=== PATIENT | male | born 1955 | race American Indian/Alaskan Native ===

== ENCOUNTER 2017-10-17 09:54 | Inpatient (IN) | payer OTHER ==
[2017-10-17 09:59] VITALS: BMI 22.3
[2017-10-17] MEDS ORDERED: SODIUM CHLORIDE 0.9% 1000 ML INFUS.BAG IV ONE ×4 (10:10→17:16)
--- NOTE | 2017-10-17 10:16 | PDOC ---
Attending Attestation - HPI HPI: 10/17/17 10:24 The patient is a 62 year old male, with a significant past medical history of NIDDM, , who presents to the emergency department with irritation in his throat with cough for about 3 days. The patients daughter reports just visiting the patients PCP where he had a normal workup. The patients daughter reports the patient's cough initially started as intermittent and has since become more constant. He denies any recent chills, headache or dizziness. He denies any recent nausea, vomit, diarrhea or constipation. He denies any recent chest pain or shortness of breath. He denies any recent dysuria, frequency, urgency or hematuria. Allergies: NKA Past surgical history: None reported. Social History: Current Smoker, occasional smoking. Denies EtOH use and recreational drug use. Primary Care Physician: <Marques Bacon - Last Filed: 10/17/17 10:24> - Resident Resident Name: Niko Trimble - ED Attending Attestation I have performed the following: I have examined & evaluated the patient, The case was reviewed & discussed with the resident, I agree w/resident's findings & plan, Exceptions are as noted - Physicial Exam PE: GENERAL: Awake, alert, +tachypnea with abdominal breathing. HEAD: No signs of trauma EYES: PERRLA, EOMI, sclera anicteric, conjunctiva clear ENT: Auricles normal inspection, hearing grossly normal, nares patent, oropharynx clear without exudates. Moist mucosa NECK: Normal ROM, supple, no lymphadenopathy, JVD, or masses LUNGS: Dec air entry B/L. +Transmitted upper airway sounds. HEART: Regular rate and rhythm, normal S1 and S2, no murmurs, rubs or gallops ABDOMEN: Soft, nontender, normoactive bowel sounds. No guarding, no rebound. No masses EXTREMITIES: Normal range of motion, no edema. No clubbing or cyanosis. No cords, erythema, or tenderness NEUROLOGICAL: Cranial nerves II through XII grossly intact. Motor and sensation intact. SKIN: Warm, Dry, normal turgor, no rashes or lesions noted. - Medical Decision Making 10/17/17 10:59 CXR reviewed. Patient with diffuse interstitial infiltrates B/L. Also noted to have fever. Atypical pna and/or CHF. Will treat with broad spectrum abx, admit. <Tali Flores - Last Filed: 10/17/17 11:00>
[2017-10-17 10:30] LABS: BASO % 0.2 % (0-2.0); HEMATOCRIT 28.9 % (35.4-49); HEMOGLOBIN 9.2 GM/dL (11.7-16.9); LYMPH % 11.1 % (8-40); MCH 32.3 pg (25.7-33.7); MCHC 31.8 g/dl (32.0-35.9); MEAN CELL VOLUME 101.6 fl (80-96); MONO % 4.2 % (3.8-10.2); NEUT % 84.5 % (42.8-82.8); PLATELET COUNT 310 K/MM3 (134-434); RBC 2.84 M/mm3 (4.00-5.60); RDW 14.5 % (11.9-15.9); WHITE BLOOD COUNT 11.7 K/mm3 (4.0-10.0)
[2017-10-17] MEDS ORDERED: ACETAMINOPHEN 1000 MG/100 ML VIAL (NON FORMULARY) IVPB ONE (10:40)
[2017-10-17] MEDS ORDERED: ACETAMINOPHEN INJECTION 100 ML IVPB ONE (10:40)
[2017-10-17 10:43] LABS: CARBOXYHEMOGLOBIN 1.2 gm% (0.5-2.0)
[2017-10-17 10:52] LABS: ALBUMIN 2.6 g/dl (3.4-5.0); ANION GAP 10 (8-16); BILIRUBIN,TOTAL 0.4 mg/dL (0.2-1.0); BLOOD UREA NITROGEN 20 mg/dL (7-18); CALCIUM 7.7 mg/dL (8.5-10.1); CHLORIDE 103 mmol/L (98-107); CO2 21 mmol/L (21-32); CREATININE 1.5 mg/dL (0.7-1.3); GLUCOSE,RANDOM 235 mg/dL (74-106); POTASSIUM 4.8 mmol/L (3.5-5.1); SGOT/AST 38 U/L (15-37); SGPT/ALT 13 U/L (12-78); SODIUM 134 mmol/L (136-145); TOT PROT 7.5 g/dl (6.4-8.2)
[2017-10-17 10:54] LABS: ALK PHOS 78 U/L (45-117)
[2017-10-17 11:00] LABS: INR 1.54 (0.82-1.09); PROTHROMBIN TIME (PATIENT) 17.4 SEC (9.98-11.88)
[2017-10-17 11:03] LABS: ACTIVATED PTT 30.7 SECONDS (26.9-34.4)
[2017-10-17] MEDS ORDERED: PIPERACILLIN/TAZOB 4.5 GM/100 ML PRE-DOCKED IVPB ONE (11:05)
[2017-10-17] MEDS ORDERED: VANCOMYCIN 1,000 MG in DEXTROSE 5%-WATER - 250 ML IVPB ONE (11:05)
--- NOTE | 2017-10-17 11:05 | PDOC ---
History of Present Illness - General Chief Complaint: Shortness of Breath Stated Complaint: dyspnea Time Seen by Provider: 10/17/17 10:05 History Source: Patient Exam Limitations: No Limitations - History of Present Illness Initial Comments: 10/17/17 11:04 The patient is a 62M with a PMH of DM and abdominal hernia who presents to the ED via EMS for respiratory distress. The patient is with his family who was providing most of the history. The family states that the patient has not been feeling well for the past week with a cough. Today, the patient was going to the bathroom and his daughter says that he had an unsteady gait, looked pale, and felt very warm. He was also complaining of difficulty breathing so the daughter called EMS. EMS report significant for O2 sat at 55 on their arrival. He was placed on NRB and then satted in the high 90's. The patient is acutely complaining of a cough and SOB but denies any CP. Past History - Past Medical History Allergies/Adverse Reactions: Allergies Allergy/AdvReac Type Severity Reaction Status Date / Time No Known Allergies Allergy Verified 10/17/17 09:56 Home Medications: Ambulatory Orders Glipizide [Glucotrol Xl] 0 mg PO ASDIR 10/17/17 Metformin HCl 0 mg PO ASDIR 10/17/17 Tamsulosin HCl 0.4 mg PO DAILY 10/17/17 COPD: No Diabetes: Yes (NIDDM) GI Disorders: Yes (ulcers) - Immunization History Immunization Up to Date: No - Suicide/Smoking/Psychosocial Hx Smoking History: Never smoked Number of Cigarettes Smoked Daily: 2 Information on smoking cessation initiated: No 'Breaking Loose' booklet given: 04/22/15 Hx Alcohol Use: No Substance Use Type: None Review of Systems - Review of Systems Able to Perform ROS?: Yes Comments:: 10/17/17 11:10 GENERAL/CONSTITUTIONAL: Positive for fever and weakness. No chills. HEAD, EYES, EARS, NOSE AND THROAT: No change in vision. No ear pain or discharge. No sore throat. GASTROINTESTINAL: No nausea, vomiting, diarrhea, constipation, or abdominal pain. GENITOURINARY: No dysuria, frequency, hematuria, or change in urination. CARDIOVASCULAR: No chest pain, palpitations, or lightheadedness. RESPIRATORY: Positive for difficulty breathing and cough. No wheezing or hemoptysis. MUSCULOSKELETAL: No joint or muscle swelling or pain. No neck or back pain. SKIN: No rash or lesions. NEUROLOGIC: No headache, numbness, tingling, weakness, loss of consciousness, or change in strength/sensation. ENDOCRINE: No increased thirst. No abnormal weight change. HEMATOLOGIC/LYMPHATIC: No anemia, easy bleeding, or history of blood clots. ALLERGIC/IMMUNOLOGIC: No hives or skin allergy. Is the patient limited Georgian proficient: No *Physical Exam - Vital Signs Last Vital Signs Temp Pulse Resp BP Pulse Ox 101 F H 94 H 21 105/58 97 10/17/17 10:31 10/17/17 10:36 10/17/17 10:33 10/17/17 10:33 10/17/17 10:36 - Physical Exam Comments: 10/23/17 06:46 GENERAL: Well developed, well nourished. Awake and alert. No acute distress. HEENT: Normocephalic, atraumatic. Hearing grossly normal. Moist mucous membranes. NECK: Supple. Full ROM. No JVD. CARDIOVASCULAR: Regular rate and rhythm. No murmurs, rubs, or gallops. PULMONARY: Coarse breath sounds bilaterally, evidence of respiratory distress. ABDOMINAL: Soft. Non-tender. Non-distended. No rebound or guarding. No organomegaly. Normoactive bowel sounds. GENITOURINARY: No CVA tenderness bilaterally. MUSCULOSKELETAL: Normal range of motion at all joints. No bony deformities or tenderness. EXTREMITIES: No cyanosis. No clubbing. No edema. No calf tenderness. SKIN: Warm and dry. Normal capillary refill. No rashes. No jaundice. NEUROLOGICAL: Alert, awake, appropriate. Cranial nerves 2-12 intact. Normal speech. Gait is normal without ataxia. PSYCHIATRIC: Cooperative. Good eye contact. Appropriate mood and affect. Procedures - Central Line Central Line Lumen: triple Central Line Position: femoral (R) Anesthesia: 1% Lidocaine Amount of anesthesia (ccs): 3 Complications: none Post Central Line Insertion: sutured, good blood return Progress: 10/17/17 12:52 Emergent central line placement. ED Treatment Course - LABORATORY CBC & Chemistry Diagram: 10/22/17 05:05 10/21/17 05:50 - ADDITIONAL ORDERS Additional order review: Laboratory Results 10/17/17 10/17/17 10:15 10:11 Carboxyhemoglobin 1.2 Methemoglobin 0.6 Sodium 134 L Potassium 4.8 Chloride 103 Carbon Dioxide 21 Anion Gap 10 BUN 20 H Creatinine 1.5 H Creat Clearance w eGFR 47.27 Random Glucose 235 H Calcium 7.7 L Total Bilirubin 0.4 AST 38 H ALT 13 Alkaline Phosphatase 78 Creatine Kinase 152 Troponin I < 0.02 Total Protein 7.5 Albumin 2.6 L 10/17/17 10:15 RBC 2.84 L MCV 101.6 H MCHC 31.8 L RDW 14.5 MPV 9.0 Neutrophils % 84.5 H Lymphocytes % 11.1 Monocytes % 4.2 Eosinophils % 0.0 Basophils % 0.2 - RADIOLOGY Radiology Studies Ordered: Category Date Time Status CHEST X-RAY PORTABLE* [RAD] Stat Radiology 10/17/17 10:10 Completed - Medications Given in the ED: ED Medications Discontinued Medications Generic Name Dose Route Start Last Admin Trade Name Freq PRN Reason Stop Dose Admin Acetaminophen 1,000 mg 10/17/17 10:40 10/17/17 10:42 Ofirmev Injection - IVPB 10/17/17 10:41 1,000 mg ONCE ONE Administration Sodium Chloride 1,000 ml 10/17/17 10:10 10/17/17 10:37 Normal Saline - IV 10/17/17 10:11 1,000 ml ONCE ONE Administration Medical Decision Making - Medical Decision Making 10/17/17 12:49 The patient is a 62M with a PMH of DM who presents to the ED in respiratory distress. Incoming vitals notable for hypoxia in the low 70's, improved to mid 90's on NRB. He began to desat and put on high flow NC. He failed high flow NC and is requiring bipap. CXR showing congestive changes with questionable PNA. 2L fluids ordered, vanc/zosyn for broad spectrum coverage. Central line placed in R femoral vein. 10/17/17 14:20 Dr. Lara has accepted ICU consultation. Dr. Ramirez accepts admission to ICU bed. 10/17/17 14:21 Patient is stable on Bipap. 81/55 map 65. One more liter given in 500 cc bolus. 10/17/17 17:17 Patient continues to be hypotensive. Starting levophed. *DC/Admit/Observation/Transfer Diagnosis at time of Disposition: Respiratory distress - Discharge Dispostion Condition at time of disposition: Guarded Admit: Yes - Referrals - Patient Instructions - Post Discharge Activity
[2017-10-17] MEDS ORDERED: VANCOMYCIN 1 GRAM (PRE-DOCKED) 1,000 MG/250 ML BAG IVPB ONE ×2 (11:17→11:45)
[2017-10-17] MEDS ORDERED: PIPERACILLIN/TAZOB 4.5 GM 4.5 GM/100 ML BAG IVPB ONE (11:17)
[2017-10-17] MEDS ORDERED: NOREPINEPHRINE BITARTRATE 8,000 MCG in SODIUM CHLORIDE 0.45% 992 ML IV SCH ×2 (12:45→17:15)
[2017-10-17 13:17] LABS: N-TERMINAL BNP 2540.63 pg/ml (5-125)
[2017-10-17 14:05] LABS: URINE APPEARANCE CLEAR; URINE BILIRUBIN NEGATIVE (NEGATIVE); URINE BLOOD 1+ (NEGATIVE); URINE COLOR YELLOW; URINE GLUCOSE (UA) NEGATIVE (NEGATIVE); URINE KETONE NEGATIVE (NEGATIVE); URINE LEUK ESTERASE NEGATIVE (NEGATIVE); URINE NITRITE NEGATIVE (NEGATIVE); URINE UROBILINOGEN NEGATIVE mg/dL (0.2-1.0)
[2017-10-17 14:13] LABS: URINE PROTEIN 2+ (NEGATIVE)
[2017-10-17 14:17] LABS: EPI CELLS RARE /HPF (FEW); URINE BACTERIA RARE /hpf (NONE SEEN); URINE HYALINE CAST 2 /lpf; URINE MUCUS RARE
[2017-10-17] MEDS ORDERED: SODIUM CHLORIDE 1,000 ML IV SCH (15:00)
--- NOTE | 2017-10-17 15:00 | HP ---
CHIEF COMPLAINT: Shortness of breath PCP: Dr. Jersey Gilliland HISTORY OF PRESENT ILLNESS: INFORMATION OBTAINED BY FAMILY AT BEDSIDE Patient is a 62 year old male with a PMHx of NIDDMII, PUD, BPH who was BIBEMS due respiratory failure with an oxygen saturation of 55% upon EMS arrival. Patient's daughter at bedside reports this morning patient was feeling dizzy and when he went to the bathroom he came back to the living room looking extremely pale and complaining of dizziness with shortness of breath, which prompted them to call 911. Patient had a dry cough since last week but over the weekend he started having a productive cough with brown/yellow phlegm. Patient has never been hospitalized for symptoms of shortness of breath according to his daughter. Patient reports no sick contacts and reports having his flu shot this season. Patient denies any recent hospitalization or antibiotic use. Patient denies any similar symptoms in the past. Otherwise, patient denies nausea, vomiting, chest pain, palpitations, headaches, acute vision changes, diarrhea, constipation, frequency, urgency, dysuria. ER course was notable for: (1) Severe Sepsis with hypotension. Patient given fluids with response. (2) Chest X-ray revealed cardiac congestion (3) IV abx with Zosyn and Vanco given. Patient placed on BIPAP Recent Travel: Denies PAST MEDICAL HISTORY: NIDDMII, PUD, BPH PAST SURGICAL HISTORY: Prostate, Abdominal Mesh Social History: Smokin cigarettes per day but was a heavy smoker in the past for 30+ years Alcohol: Denies Drugs: DENIES Family History: Denies Allergies: No Known Allergies Allergy (Verified 10/17/17 09:56) HOME MEDICATIONS: Home Medications Medication Instructions Recorded Glipizide [Glucotrol Xl] 0 mg PO ASDIR 10/17/17 Metformin HCl 0 mg PO ASDIR 10/17/17 Tamsulosin HCl 0.4 mg PO DAILY 10/17/17 REVIEW OF SYSTEMS CONSTITUTIONAL: generalized weakness, malaise, loss of appetite Absent: fever, chills, diaphoresis, weight change HEENT: Absent: rhinorrhea, nasal congestion, throat pain, throat swelling, difficulty swallowing, mouth swelling, ear pain, eye pain, visual changes CARDIOVASCULAR: Absent: chest pain, syncope, palpitations, irregular heart rate, peripheral edema RESPIRATORY: cough, shortness of breath Absent: dyspnea with exertion, orthopnea, wheezing, stridor, hemoptysis GASTROINTESTINAL: Absent: abdominal pain, abdominal distension, nausea, vomiting, diarrhea, constipation, melena, hematochezia GENITOURINARY: Absent: dysuria, frequency, urgency, hesitancy, hematuria, flank pain, genital pain MUSCULOSKELETAL: Absent: myalgia, arthralgia, joint swelling, back pain, neck pain SKIN: Absent: rash, itching, pallor HEMATOLOGIC/IMMUNOLOGIC: Absent: easy bleeding, easy bruising, lymphadenopathy, frequent infections ENDOCRINE: Absent: unexplained weight gain, unexplained weight loss, heat intolerance, cold intolerance NEUROLOGIC: dizziness, unsteady gait Absent: headache, focal weakness or paresthesias, seizure, mental status changes , bladder or bowel incontinence PSYCHIATRIC: Absent: anxiety, depression, suicidal or homicidal ideation, hallucinations. PHYSICAL EXAMINATION Vital Signs - 24 hr 10/17/17 10/17/17 10/17/17 09:56 10:30 10:31 Temperature 101 F H Pulse Rate 102 H Pulse Rate [ Apical] Respiratory 26 H Rate Blood Pressure 111/68 Blood Pressure [Right Arm] O2 Sat by Pulse 100 99 63 L Oximetry (%) 10/17/17 10/17/17 10/17/17 10:33 10:36 11:52 Temperature 99 F Pulse Rate 94 H Pulse Rate [ 105 H 84 Apical] Respiratory 21 24 Rate Blood Pressure Blood Pressure 105/58 82/54 [Right Arm] O2 Sat by Pulse 100 97 91 L Oximetry (%) 10/17/17 10/17/17 10/17/17 12:02 12:10 12:27 Temperature Pulse Rate Pulse Rate [ 87 75 Apical] Respiratory 31 H 18 Rate Blood Pressure Blood Pressure 73/49 91/66 [Right Arm] O2 Sat by Pulse 86 L 94 L 99 Oximetry (%) 10/17/17 10/17/17 10/17/17 12:55 14:14 14:29 Temperature Pulse Rate Pulse Rate [ 78 73 68 Apical] Respiratory 22 24 24 Rate Blood Pressure Blood Pressure 99/66 88/53 101/59 [Right Arm] O2 Sat by Pulse 98 100 100 Oximetry (%) 10/17/17 14:54 Temperature Pulse Rate Pulse Rate [ 80 Apical] Respiratory 26 H Rate Blood Pressure Blood Pressure 113/71 [Right Arm] O2 Sat by Pulse 98 Oximetry (%) GENERAL: Awake, alert, and fully oriented, in no acute distress. HEAD: Normal with no signs of trauma. EYES: Pupils equal, round and reactive to light, extraocular movements intact, sclera anicteric, conjunctiva clear. No lid lag. EARS, NOSE, THROAT: Oropharynx clear without exudates. Moist mucous membranes. NECK: Normal range of motion, supple without lymphadenopathy, JVD, or masses. LUNGS: On BIPAP. Scattered Rales throughout lower lung bases bilaterral R>L HEART: Regular rate and rhythm, normal S1 and S2 without murmur, rub or gallop. ABDOMEN: Soft, tenderness near the umbilicus due to previous mesh placed ( chronic pain),not distended, normoactive bowel sounds, no guarding, no rebound, no masses. MUSCULOSKELETAL: No CVA tenderness. UPPER EXTREMITIES: Nail clubbing of bilateral toes. 2+ pulses, warm, well- perfused. No cyanosis. No clubbing. No peripheral edema. LOWER EXTREMITIES: 2+ pulses, warm, well-perfused. No calf tenderness. No peripheral edema. NEUROLOGICAL: Cranial nerves II-XII intact. Sensory intact with Motor strength 5/5 bilaterally, no facial droop PSYCHIATRIC: Cooperative. Good eye contact. Appropriate mood and affect. SKIN: Warm, dry, normal turgor, no rashes or lesions noted, normal capillary refill. Laboratory Results - last 24 hr 10/17/17 10/17/17 10/17/17 10:11 10:15 10:15 WBC 11.7 H RBC 2.84 L Hgb 9.2 L Hct 28.9 L MCV 101.6 H MCH 32.3 MCHC 31.8 L RDW 14.5 Plt Count 310 MPV 9.0 Neutrophils % 84.5 H Lymphocytes % 11.1 Monocytes % 4.2 Eosinophils % 0.0 Basophils % 0.2 PT with INR 17.40 H INR 1.54 H PTT (Actin FS) 30.7 Carboxyhemoglobin 1.2 Methemoglobin 0.6 Sodium Potassium Chloride Carbon Dioxide Anion Gap BUN Creatinine Creat Clearance w eGFR Random Glucose Lactic Acid Calcium Total Bilirubin AST ALT Alkaline Phosphatase Creatine Kinase Creatine Kinase Index CK-MB (CK-2) Troponin I B-Natriuretic Peptide Total Protein Albumin Urine Color Urine Appearance Urine pH Ur Specific [place] Urine Protein Urine Glucose (UA) Urine Ketones Urine Blood Urine Nitrite Urine Bilirubin Urine Urobilinogen Urine WBC (Auto) Urine RBC (Auto) Ur Epithelial Cells Urine Bacteria Hyaline Casts Urine Mucus Blood Type Antibody Screen 10/17/17 10/17/17 10/17/17 10:15 10:15 12:35 WBC RBC Hgb Hct MCV MCH MCHC RDW Plt Count MPV Neutrophils % Lymphocytes % Monocytes % Eosinophils % Basophils % PT with INR INR PTT (Actin FS) Carboxyhemoglobin Methemoglobin Sodium 134 L Potassium 4.8 Chloride 103 Carbon Dioxide 21 Anion Gap 10 BUN 20 H Creatinine 1.5 H Creat Clearance w eGFR 47.27 Random Glucose 235 H Lactic Acid 3.6 H* 2.3 H* Calcium 7.7 L Total Bilirubin 0.4 AST 38 H ALT 13 Alkaline Phosphatase 78 Creatine Kinase 152 Creatine Kinase Index 0.6 CK-MB (CK-2) < 1.000 Troponin I < 0.02 B-Natriuretic Peptide 2540.63 H Total Protein 7.5 Albumin 2.6 L Urine Color Urine Appearance Urine pH Ur Specific [place] Urine Protein Urine Glucose (UA) Urine Ketones Urine Blood Urine Nitrite Urine Bilirubin Urine Urobilinogen Urine WBC (Auto) Urine RBC (Auto) Ur Epithelial Cells Urine Bacteria Hyaline Casts Urine Mucus Blood Type Antibody Screen 10/17/17 10/17/17 12:55 13:57 WBC RBC Hgb Hct MCV MCH MCHC RDW Plt Count MPV Neutrophils % Lymphocytes % Monocytes % Eosinophils % Basophils % PT with INR INR PTT (Actin FS) Carboxyhemoglobin Methemoglobin Sodium Potassium Chloride Carbon Dioxide Anion Gap BUN Creatinine Creat Clearance w eGFR Random Glucose Lactic Acid Calcium Total Bilirubin AST ALT Alkaline Phosphatase Creatine Kinase Creatine Kinase Index CK-MB (CK-2) Troponin I B-Natriuretic Peptide Total Protein Albumin Urine Color Yellow Urine Appearance Clear Urine pH 5.0 Ur Specific [place] 1.017 Urine Protein 2+ H Urine Glucose (UA) Negative Urine Ketones Negative Urine Blood 1+ H Urine Nitrite Negative Urine Bilirubin Negative Urine Urobilinogen Negative Urine WBC (Auto) 8 Urine RBC (Auto) 7 Ur Epithelial Cells Rare Urine Bacteria Rare Hyaline Casts 2 Urine Mucus Rare Blood Type O POSITIVE Antibody Screen Negative IMAGES CHEST X-RAY (10/17/17): Congestive changes with shallow inspiration. No pnuemothorax or pleural effusion. ASSESSMENT/PLAN: Patient is a 62 year old male who was BIBEMS for shortness of breath and was found to be saturating at 55% upon EMS arrival. Patient found to have severe sepsis and admitted for further monitoring and management. Septic Shock with Acute Hypoxic Respiratory Failure -Likely secondary to Community Acquired Pneumonia, r/o CHF -Tachycardia of 105, Respiratory rate 26, Fever of 101, WBC of 11.7, Hypotension with SBP <90 with no response to IV fluids, and Lactic Acidosis of 3.6 -Central line placed by ED physician, will begin Levophed -BNP >2000. Will begin Levophed and once patient is hemodynamically stable will begin Lasix. CVP reading Q2H -Chest X-ray reveals no consolidation or infiltrate but may be atypical pneumonia -Zosyn and Vancomycin given in ED. Will begin Azithromycin 500mg Daily and Ceftriaxone 1gm daily to cover atypical pneumonia and community acquired pneumonia. Patient denies any recent hospitalization or abx use. -Tylenol 1000mg IVP PRN for fevers -Urine Antigens for legionella, Mycoplasma pneumonia IgM, Sputum cultures -HOB -Blood cultures pending -ECHO pending -BIPAP and 02 to maintain 02% >90% -ABG pending -ICU admission Acute Kidney Injury -Likely secondary to hypoperfusion from sepsis -Urine studies sent -Continue to monitor -Avoid nephrotoxic medications Macrocytic Anemia -Hemoglobin 9.2 with MCV 101 -No prior labs done here as inpatient -Iron studies ordered -Will continue to trend NIDDMII -BGM -ISS -A1C ordered BPH -Patient on Tamsulosin 0.4mg daily Peptic Ulcer Disease -History of mesh according to family and had Endoscopy two months -Was given medications according to patients daughter and completed course Nicotine Dependence -Smokes 2 cigarettes per day F/E/N -No IV fluids due to pulmonary congestion -Electrolytes wnl -NPO Prophylaxis -High risk. Heparin 5000 units sq Q8H -No GI required Disposition -Full code -Patient hypotensive requiring BIPAP. Low threshold for intubation. Will need ICU monitoring Visit type - Emergency Visit Emergency Visit: Yes ED Registration Date: 10/17/17 Care time: The patient presented to the Emergency Department on the above date and was hospitalized for further evaluation of their emergent condition. - New Patient This patient is new to me today: Yes Date on this admission: 10/17/17 - Critical Care Critical Care patient: Yes Total Critical Care Time (in minutes): 45 Critical Care Statement: The care of this patient involved high complexity decision making to prevent further life threatening deterioration of the patient 's condition and/or to evaluate & treat vital organ system(s) failure or risk of failure.
--- NOTE | 2017-10-17 15:18 | CONSULT ---
Consult Consult Specialty:: PULMONARY/CCM Referred by:: Dr. Trimble Reason for Consultation:: respiratory failure - History of Present Illness Chief Complaint: shortness of breath History of Present Illness: 62yo male with h/o DM who presents with worsening shortness of breath and cough. Cough nonproductive without chest pain, wheezing. No nausea, vomitig or diarrhea. No subjective fevers or chills but febrile to 101 on presentation. Reports receiving his flu shot. No sick contacts or recent travel. No recent antibiotics or hospitalizations. Smokes 1 cigarette/day but denies history of asthma or COPD. Does not use inhalers at home. Noted to be hypoxic to 50s by EMS , placed on NRB, attempted high flow oxygen therapy but remained hypoxic, now on BiPAP support with 100% FiO2. - History Source History Provided By: Patient, Medical Record Limitations to Obtaining History: No Limitations - Past Medical History Endocrine: Yes: Diabetes Mellitus - Alcohol/Substance Use Hx Alcohol Use: No - Smoking History Smoking history: Never smoked Aproximately how many cigarettes per day: 2 Home Medications - Allergies Allergies/Adverse Reactions: Allergies Allergy/AdvReac Type Severity Reaction Status Date / Time No Known Allergies Allergy Verified 10/17/17 09:56 - Home Medications Home Medications: Ambulatory Orders Glipizide [Glucotrol Xl] 0 mg PO ASDIR 10/17/17 Metformin HCl 0 mg PO ASDIR 10/17/17 Tamsulosin HCl 0.4 mg PO DAILY 10/17/17 Review of Systems - Review of Systems Constitutional: reports: Weakness. denies: Chills, Fever Eyes: denies: Recent Change in Vision HENT: denies: Nasal Congestion, Throat Pain Neck: denies: Stiffness, Tenderness Cardiovascular: reports: Shortness of Breath. denies: Chest Pain Respiratory: reports: Cough, SOB. denies: Wheezing Gastrointestinal: denies: Abdominal Pain, Nausea, Vomiting Genitourinary: denies: Dysuria, Hematuria Neurological: denies: Dizziness, Headache Endocrine: denies: Unexplained Weight Gain, Unexplained Weight Loss Physical Exam Vital Signs: Vital Signs Temperature 99 F 10/17/17 11:52 Pulse Rate 80 10/17/17 14:54 Respiratory Rate 26 H 10/17/17 14:54 Blood Pressure 113/71 10/17/17 14:54 O2 Sat by Pulse Oximetry (%) 98 10/17/17 14:54 Constitutional: Yes: Mild Distress (on BiPAP) Eyes: Yes: Conjunctiva Clear, EOM Intact HENT: Yes: Atraumatic, Normocephalic Neck: Yes: Supple, Trachea Midline Cardiovascular: Yes: Regular Rate and Rhythm Respiratory: Yes: Rales (scattered) Gastrointestinal: Yes: Normal Bowel Sounds, Soft. No: Tenderness Edema: No Neurological: Yes: Alert, Oriented Labs: CBC, BMP 10/17/17 10:15 10/17/17 10:15 Imaging - Results Chest X-ray: Report Reviewed, Image Reviewed (pulmonary vascular congestion) Problem List - Problems (1) Acute respiratory failure with hypoxia Code(s): J96.01 - ACUTE RESPIRATORY FAILURE WITH HYPOXIA (2) Pneumonia Code(s): J18.9 - PNEUMONIA, UNSPECIFIED ORGANISM (3) Diabetes Code(s): E11.9 - TYPE 2 DIABETES MELLITUS WITHOUT COMPLICATIONS Assessment/Plan Acute Hypoxic Respiratory Failure r/o Pneumonia r/o Influenza Sepsis Acute Kidney Injury Lactic Acidosis r/o CHF DM - antibiotics per ID - f/u cultures - flu swab - urine antigens - O2 to keep SpO2 >90% - BiPAP to assist in work of breathing, hypoxia - echocardiogram - may need diuresis if hemodynamically stable - attempted to taper FiO2, desaturated to low 90s on 60% FiO2, placed on 70% - ICU monitoring for tenuous respiratory status critical care time spent in reviewing chart, evaluating patient and formulating plan 35 min
[2017-10-17] MEDS ORDERED: AZITHROMYCIN IVPB 250 ML IVPB ONE (15:48)
[2017-10-17] MEDS: AZITHROMYCIN IVPB 500 MG in DEXTROSE 5%-WATER - 250 ML IVPB SCH (16:04)
--- NOTE | 2017-10-17 18:29 | PN ---
Teaching Attending Note Name of Resident: Olivia Lucas ATTENDING PHYSICIAN STATEMENT Time of evaluation: 2;30 PM I saw and evaluated the patient. I reviewed the resident's note and discussed the case with the resident. I agree with the resident's findings and plan as documented. SUBJECTIVE: 62 yom with PMHx of NIDDM, PUD, BPH, heavy smoker, was walking to the bathroom when reported dizziness today. Family noted patient was pale and short of breath and called 911. reportedly with EMS, patient had oxygen saturations of 55 %. Over the last week, patient had dry cough that go productive with brown/ yellowish sputum over the last 2 days. Associated with fevers, dyspnea. Patient was febrile upto 101 in the ED and hypotensive upto 70s with lactic acid 3.6. Currently patient is on Bipap, breathing comfortably, weak, breathing improved. C/o chronic abdominal pain in the umbilical region but no other symptoms. No recent orthopnea, PND, leg swelling, weight gain, chest pain or palpitations noted. History partly obtained from family at bedside. OBJECTIVE: Vital Signs Period Temp Pulse Resp BP Sys/Sutton Pulse Ox Last 24 Hr 99 F-101 F 68-105 18- 73-113/47-71 63-100 Intake & Output 10/14/17 10/15/17 10/16/17 10/17/17 23:59 23:59 23:59 23:59 Intake Total 3650 Output Total 525 Balance 3125 Weight 130 lb GENERAL: Awake, alert, and fully oriented, in no acute distress, on BIpap currently, no use of acessory muscles of respiration HEAD: Normal with no signs of trauma. EYES: Pupils equal, round and reactive to light, extraocular movements intact, sclera anicteric, conjunctiva clear. No lid lag. EARS, NOSE, THROAT: Ears normal, nares patent, oropharynx clear without exudates. Moist mucous membranes. NECK: Jugular vein distension but no hepatojugular reflux noted LUNGS: right basilar rales, decreased breath sounds all over, no wheezing appreciated. HEART: S12 regular ABDOMEN: Soft, nontender, not distended, normoactive bowel sounds, no guarding, no rebound, no masses. prior surgical scar MUSCULOSKELETAL: Normal range of motion at all joints. No bony deformities or tenderness. No CVA tenderness. UPPER EXTREMITIES: 2+ pulses, warm, well-perfused. No cyanosis. No clubbing. No peripheral edema. LOWER EXTREMITIES: 2+ pulses, warm, well-perfused. No calf tenderness. No peripheral edema. NEUROLOGICAL: Cranial nerves II-XII grossly intact, limited exam given on bipap and active hemodynamic concerns PSYCHIATRIC: Cooperative. Good eye contact. Appropriate mood and affect. SKIN: Warm, dry, normal turgor, no rashes or lesions noted, normal capillary refill. Home Medication List Medication Instructions Recorded Confirmed Type Glipizide [Glucotrol Xl] 0 mg PO ASDIR 10/17/17 10/17/17 History Metformin HCl 0 mg PO ASDIR 10/17/17 10/17/17 History Tamsulosin HCl 0.4 mg PO DAILY 10/17/17 10/17/17 History Active Medications Generic Name Dose Route Start Last Admin Trade Name Freq PRN Reason Stop Dose Admin Chlorhexidine Gluconate 1 applic 10/17/17 22:00 Hibiclens For Decolonization - TP HS SONAL Heparin Sodium (Porcine) 5,000 unit 10/17/17 22:00 Heparin - SQ TID SONAL Azithromycin 500 mg/ Dextrose 250 mls @ 250 mls/hr 10/17/17 15:30 10/17/17 16 :04 IVPB 250 mls/hr DAILY SONAL Administration CEFTRIAXONE 1 G/50 ML PREMIX 50 mls @ 100 mls/hr 10/18/17 10:00 Ceftriaxone 1 Gm-D5w Bag IVPB DAILY SONAL Norepinephrine Bitartrate 8, 1,000 mls @ 37.5 mls/hr 10/17/17 17:15 000 mcg/ Sodium Chloride IV TITR SONAL Protocol 5 MCG/MIN Insulin Aspart 1 vial 10/17/17 16:30 Novolog Vial Sliding Scale - SQ ACHS [facility] Protocol Mupirocin 1 applic 10/17/17 22:00 Bactroban Ointment (For Decolonization) - NS 10/22/17 21:59 BID [facility] Pneumococcal 13-Valent Conj Vacc 0.5 ml 10/17/17 18:16 Prevnar 13 Syringe - IM 10/17/17 18:17 .ONCE ONE Laboratory Results - last 24 hr 10/17/17 10/17/17 10/17/17 10:11 10:15 10:15 WBC 11.7 H RBC 2.84 L Hgb 9.2 L Hct 28.9 L MCV 101.6 H MCH 32.3 MCHC 31.8 L RDW 14.5 Plt Count 310 MPV 9.0 Neutrophils % 84.5 H Lymphocytes % 11.1 Monocytes % 4.2 Eosinophils % 0.0 Basophils % 0.2 PT with INR 17.40 H INR 1.54 H PTT (Actin FS) 30.7 Carboxyhemoglobin 1.2 Methemoglobin 0.6 Sodium Potassium Chloride Carbon Dioxide Anion Gap BUN Creatinine Creat Clearance w eGFR Random Glucose Lactic Acid Calcium Total Bilirubin AST ALT Alkaline Phosphatase Creatine Kinase Creatine Kinase Index CK-MB (CK-2) Troponin I B-Natriuretic Peptide Total Protein Albumin Urine Color Urine Appearance Urine pH Ur Specific Check Urine Protein Urine Glucose (UA) Urine Ketones Urine Blood Urine Nitrite Urine Bilirubin Urine Urobilinogen Urine WBC (Auto) Urine RBC (Auto) Ur Epithelial Cells Urine Bacteria Hyaline Casts Urine Mucus Ur Random Sodium Ur Random Potassium Ur Random Chloride Blood Type Antibody Screen 10/17/17 10/17/17 10/17/17 10:15 10:15 12:35 WBC RBC Hgb Hct MCV MCH MCHC RDW Plt Count MPV Neutrophils % Lymphocytes % Monocytes % Eosinophils % Basophils % PT with INR INR PTT (Actin FS) Carboxyhemoglobin Methemoglobin Sodium 134 L Potassium 4.8 Chloride 103 Carbon Dioxide 21 Anion Gap 10 BUN 20 H Creatinine 1.5 H Creat Clearance w eGFR 47.27 Random Glucose 235 H Lactic Acid 3.6 H* 2.3 H* Calcium 7.7 L Total Bilirubin 0.4 AST 38 H ALT 13 Alkaline Phosphatase 78 Creatine Kinase 152 Creatine Kinase Index 0.6 CK-MB (CK-2) < 1.000 Troponin I < 0.02 B-Natriuretic Peptide 2540.63 H Total Protein 7.5 Albumin 2.6 L Urine Color Urine Appearance Urine pH Ur Specific Check Urine Protein Urine Glucose (UA) Urine Ketones Urine Blood Urine Nitrite Urine Bilirubin Urine Urobilinogen Urine WBC (Auto) Urine RBC (Auto) Ur Epithelial Cells Urine Bacteria Hyaline Casts Urine Mucus Ur Random Sodium Ur Random Potassium Ur Random Chloride Blood Type Antibody Screen 10/17/17 10/17/17 10/17/17 12:55 13:57 16:00 WBC RBC Hgb Hct MCV MCH MCHC RDW Plt Count MPV Neutrophils % Lymphocytes % Monocytes % Eosinophils % Basophils % PT with INR INR PTT (Actin FS) Carboxyhemoglobin Methemoglobin Sodium Potassium Chloride Carbon Dioxide Anion Gap BUN Creatinine Creat Clearance w eGFR Random Glucose Lactic Acid 2.1 H* Calcium Total Bilirubin AST ALT Alkaline Phosphatase Creatine Kinase Creatine Kinase Index CK-MB (CK-2) Troponin I B-Natriuretic Peptide Total Protein Albumin Urine Color Yellow Urine Appearance Clear Urine pH 5.0 Ur Specific Check 1.017 Urine Protein 2+ H Urine Glucose (UA) Negative Urine Ketones Negative Urine Blood 1+ H Urine Nitrite Negative Urine Bilirubin Negative Urine Urobilinogen Negative Urine WBC (Auto) 8 Urine RBC (Auto) 7 Ur Epithelial Cells Rare Urine Bacteria Rare Hyaline Casts 2 Urine Mucus Rare Ur Random Sodium Ur Random Potassium Ur Random Chloride Blood Type O POSITIVE Antibody Screen Negative 10/17/17 16:40 WBC RBC Hgb Hct MCV MCH MCHC RDW Plt Count MPV Neutrophils % Lymphocytes % Monocytes % Eosinophils % Basophils % PT with INR INR PTT (Actin FS) Carboxyhemoglobin Methemoglobin Sodium Potassium Chloride Carbon Dioxide Anion Gap BUN Creatinine Creat Clearance w eGFR Random Glucose Lactic Acid Calcium Total Bilirubin AST ALT Alkaline Phosphatase Creatine Kinase Creatine Kinase Index CK-MB (CK-2) Troponin I B-Natriuretic Peptide Total Protein Albumin Urine Color Urine Appearance Urine pH Ur Specific Check Urine Protein Urine Glucose (UA) Urine Ketones Urine Blood Urine Nitrite Urine Bilirubin Urine Urobilinogen Urine WBC (Auto) Urine RBC (Auto) Ur Epithelial Cells Urine Bacteria Hyaline Casts Urine Mucus Ur Random Sodium 22 Ur Random Potassium 14.9 Ur Random Chloride 17 Blood Type Antibody Screen Microbiology 10/17/17 13:57 Urine For Antigen Detection Legionella Antigen - Final 10/17/17 13:57 Urine For Antigen Detection Streptococcus pneumoniae Antigen (M - Final 10/17/17 10:25 Nasopharyngeal Swab Influenza Types A,B Antigen ([facility]) - Final 10/17/17 10:25 Nasopharyngeal Swab - Final ASSESSMENT AND PLAN: 62 yom active smoker, pMHx of NIDDM, PUD, BPH admitted with acute hypoxic respiratory failure, Septic shock, suspected CHF. -Acute hypoxic respiratory failure, suspect from ?interstitial infiltrates with CAP associated with CHF vs ARDS -Septic shock -Lactic acidosis, from sepsis vs increased work of breathing -?MIRLANDE from sepsis -NIDDM -PUD -BPH Plan: Volume status difficult to assess. Will place on ceftriaxone/azithromycin. Bipap, close hemodynamic monitoring in ICU Hypotensive in ED, transiently responded to fluids, recurrent hypotension. Would avoid additional hydration given elevated BNP and CXR suggestive of congestive changes. Central line, Start pressors. Trial with diuresis if hemodynamics stabilize Will need CVP measurement if volume status difficult. CXR suggestive of emphysematous changes, though no concerns for COPD exacerbation currently, monitor for now. Repeat troponin. Follow up EKG Check 2D echo, Strict I/Os and daily weights. ISS, diabetic diet when stabilizes Protonix blood/sputum culturs. Urine PNA studies/Flu swab neg. Needs ICU monitoring given need for bipap, pressors and close hemodynamic monitoring. Total critical care time spent 65 min. PLan discussed with patient and family at bedside in detail, all questions answered.
[2017-10-17] MEDS: INSULIN SLIDING SCALE (NOVOLOG) 1 VIAL SQ SCH ×2 (18:35→21:46)
[2017-10-17] MEDS ORDERED: PNEUMOC 13-VAL CONJ-DIP CRM/PF 0.5 ML DISP.SYRIN IM ONE (19:00)
[2017-10-17] MEDS: HEPARIN NA (PORCINE) 5,000 UNITS/ML 1ML VIAL SQ SCH (21:29)
[2017-10-17] MEDS: CHLORHEXIDINE GLUCONATE 4% CLEANSER FOR DECOLONIZATION TP SCH (21:29)
[2017-10-17] MEDS: MUPIROCIN 2% TOPICAL OINTMENT FOR DECOLONIZATION NS SCH (21:29)
[2017-10-18] MEDS: HEPARIN NA (PORCINE) 5,000 UNITS/ML 1ML VIAL SQ SCH ×3 (05:36→22:23)
[2017-10-18] MEDS: INSULIN SLIDING SCALE (NOVOLOG) 1 VIAL SQ SCH ×4 (06:16→22:24)
[2017-10-18 06:44] LABS: BASO % 0.7 % (0-2.0); EOS % 0.1 % (0-4.5); HEMATOCRIT 25.1 % (35.4-49); HEMOGLOBIN 8.4 GM/dL (11.7-16.9); LYMPH % 20.3 % (8-40); MCHC 33.4 g/dl (32.0-35.9); MEAN CELL VOLUME 101.7 fl (80-96); MEAN PLT VOLUME 9.7 fl (7.5-11.1); MONO % 4.6 % (3.8-10.2); NEUT % 74.3 % (42.8-82.8); PLATELET COUNT 266 K/MM3 (134-434); RBC 2.46 M/mm3 (4.00-5.60); RDW 14.2 % (11.9-15.9); WHITE BLOOD COUNT 6.3 K/mm3 (4.0-10.0)
[2017-10-18] MEDS ORDERED: HEMOQUE CONTROL SOLUTION ONE (06:57)
[2017-10-18 07:06] LABS: ALBUMIN 2.4 g/dl (3.4-5.0); ANION GAP 11 (8-16); BILIRUBIN,TOTAL 0.3 mg/dL (0.2-1.0); BLOOD UREA NITROGEN 18 mg/dL (7-18); CALCIUM 7.9 mg/dL (8.5-10.1); CHLORIDE 110 mmol/L (98-107); CO2 21 mmol/L (21-32); CREATININE 1.1 mg/dL (0.7-1.3); GLUCOSE,RANDOM 139 mg/dL (74-106); INR 1.44 (0.82-1.09); MAGNESIUM 1.8 mg/dL (1.8-2.4); POTASSIUM 4.3 mmol/L (3.5-5.1); PROTHROMBIN TIME (PATIENT) 16.3 SEC (9.98-11.88); SGOT/AST 28 U/L (15-37); SGPT/ALT 10 U/L (12-78); SODIUM 142 mmol/L (136-145); TOT PROT 6.5 g/dl (6.4-8.2)
[2017-10-18 07:07] LABS: ALK PHOS 63 U/L (45-117)
[2017-10-18 07:09] LABS: ACTIVATED PTT 29.9 SECONDS (26.9-34.4)
[2017-10-18] MEDS: CEFTRIAXONE 1 G/50 ML PREMIX 50 ML IVPB SCH (09:18)
[2017-10-18] MEDS: AZITHROMYCIN IVPB 500 MG in DEXTROSE 5%-WATER - 250 ML IVPB SCH (09:18)
[2017-10-18] MEDS: MUPIROCIN 2% TOPICAL OINTMENT FOR DECOLONIZATION NS SCH ×2 (09:19→22:24)
--- NOTE | 2017-10-18 09:34 | EKG ---
Test Reason : Blood Pressure : / mmHG Vent. Rate : 099 BPM Atrial Rate : 099 BPM P-R Int : 124 ms QRS Dur : 088 ms QT Int : 326 ms P-R-T Axes : 030 031 016 degrees QTc Int : 418 ms NORMAL SINUS RHYTHM POSSIBLE LEFT ATRIAL ENLARGEMENT BORDERLINE ECG NO PREVIOUS ECGS AVAILABLE Confirmed by MD Fabi, Lei ([id number]) on 10/18/2017 9:34:11 AM Referred By: Confirmed By:Lei Dunlap MD
[2017-10-18] MEDS ORDERED: FUROSEMIDE 40 MG/4 ML INJECTABLE VIAL IVPUSH ONE (09:45)
--- NOTE | 2017-10-18 10:36 | PN ---
Physical Exam: SUBJECTIVE: Patient seen and examined OBJECTIVE: Vital Signs Period Temp Pulse Resp BP Sys/Sutton Pulse Ox Last 24 Hr 99 F-99.9 F 62-92 18-36 73-116/32-71 86-100 GENERAL: The patient is awake, alert, and fully oriented, in no acute distress. HEAD: Normal with no signs of trauma. EYES: PERRL, extraocular movements intact, sclera anicteric, conjunctiva clear. No ptosis. ENT: Ears normal. Bipap mask on. NECK: Trachea midline, full range of motion, supple. LUNGS: Coarse bilateral lower lung field crackles, slight accessory muscle usage , turned down FiO2 from 70% to 60% HEART: + JVD.Regular rate and rhythm, S1, S2 without murmur, rub or gallop. ABDOMEN: Soft, nontender, nondistended, normoactive bowel sounds, no guarding, no rebound, no hepatosplenomegaly, no masses. EXTREMITIES: 2+ pulses, warm, well-perfused, no edema. NEUROLOGICAL: No obvious focal deficit PSYCH: Normal mood, normal affect. SKIN: Warm, dry, normal turgor, no rashes or lesions noted Laboratory Results - last 24 hr 10/17/17 10/17/17 10/17/17 10:11 10:15 10:15 WBC RBC Hgb Hct MCV MCH MCHC RDW Plt Count MPV Neutrophils % Lymphocytes % Monocytes % Eosinophils % Basophils % PT with INR 17.40 H INR 1.54 H PTT (Actin FS) 30.7 Carboxyhemoglobin 1.2 Methemoglobin 0.6 Sodium 134 L Potassium 4.8 Chloride 103 Carbon Dioxide 21 Anion Gap 10 BUN 20 H Creatinine 1.5 H Creat Clearance w eGFR 47.27 POC Glucometer Random Glucose 235 H Hemoglobin A1c % Lactic Acid Calcium 7.7 L Phosphorus Magnesium Ferritin Total Bilirubin 0.4 AST 38 H ALT 13 Alkaline Phosphatase 78 Creatine Kinase 152 Creatine Kinase Index 0.6 CK-MB (CK-2) < 1.000 Troponin I < 0.02 B-Natriuretic Peptide 2540.63 H Total Protein 7.5 Albumin 2.6 L Urine Color Urine Appearance Urine pH Ur Specific [place] Urine Protein Urine Glucose (UA) Urine Ketones Urine Blood Urine Nitrite Urine Bilirubin Urine Urobilinogen Ur Leukocyte Esterase Urine WBC (Auto) Urine RBC (Auto) Ur Epithelial Cells Urine Bacteria Hyaline Casts Urine Mucus Ur Random Sodium Ur Random Potassium Ur Random Chloride Urine Creatinine Blood Type Antibody Screen 10/17/17 10/17/17 10/17/17 10:15 12:35 12:55 WBC RBC Hgb Hct MCV MCH MCHC RDW Plt Count MPV Neutrophils % Lymphocytes % Monocytes % Eosinophils % Basophils % PT with INR INR PTT (Actin FS) Carboxyhemoglobin Methemoglobin Sodium Potassium Chloride Carbon Dioxide Anion Gap BUN Creatinine Creat Clearance w eGFR POC Glucometer Random Glucose Hemoglobin A1c % Lactic Acid 3.6 H* 2.3 H* Calcium Phosphorus Magnesium Ferritin Total Bilirubin AST ALT Alkaline Phosphatase Creatine Kinase Creatine Kinase Index CK-MB (CK-2) Troponin I B-Natriuretic Peptide Total Protein Albumin Urine Color Urine Appearance Urine pH Ur Specific [place] Urine Protein Urine Glucose (UA) Urine Ketones Urine Blood Urine Nitrite Urine Bilirubin Urine Urobilinogen Ur Leukocyte Esterase Urine WBC (Auto) Urine RBC (Auto) Ur Epithelial Cells Urine Bacteria Hyaline Casts Urine Mucus Ur Random Sodium Ur Random Potassium Ur Random Chloride Urine Creatinine Blood Type O POSITIVE Antibody Screen Negative 10/17/17 10/17/17 10/17/17 13:57 16:00 16:40 WBC RBC Hgb Hct MCV MCH MCHC RDW Plt Count MPV Neutrophils % Lymphocytes % Monocytes % Eosinophils % Basophils % PT with INR INR PTT (Actin FS) Carboxyhemoglobin Methemoglobin Sodium Potassium Chloride Carbon Dioxide Anion Gap BUN Creatinine Creat Clearance w eGFR POC Glucometer Random Glucose Hemoglobin A1c % Lactic Acid 2.1 H* Calcium Phosphorus Magnesium Ferritin Total Bilirubin AST ALT Alkaline Phosphatase Creatine Kinase Creatine Kinase Index CK-MB (CK-2) Troponin I B-Natriuretic Peptide Total Protein Albumin Urine Color Yellow Urine Appearance Clear Urine pH 5.0 Ur Specific [place] 1.017 Urine Protein 2+ H Urine Glucose (UA) Negative Urine Ketones Negative Urine Blood 1+ H Urine Nitrite Negative Urine Bilirubin Negative Urine Urobilinogen Negative Ur Leukocyte Esterase Negative Urine WBC (Auto) 8 Urine RBC (Auto) 7 Ur Epithelial Cells Rare Urine Bacteria Rare Hyaline Casts 2 Urine Mucus Rare Ur Random Sodium 22 Ur Random Potassium 14.9 Ur Random Chloride 17 Urine Creatinine Blood Type Antibody Screen 10/17/17 10/17/17 10/17/17 18:45 21:00 21:42 WBC RBC Hgb Hct MCV MCH MCHC RDW Plt Count MPV Neutrophils % Lymphocytes % Monocytes % Eosinophils % Basophils % PT with INR INR PTT (Actin FS) Carboxyhemoglobin Methemoglobin Sodium Potassium Chloride Carbon Dioxide Anion Gap BUN Creatinine Creat Clearance w eGFR POC Glucometer [id number] Random Glucose Hemoglobin A1c % Lactic Acid 1.6 Calcium Phosphorus Magnesium Ferritin Total Bilirubin AST ALT Alkaline Phosphatase Creatine Kinase Creatine Kinase Index CK-MB (CK-2) Troponin I 0.03 D B-Natriuretic Peptide Total Protein Albumin Urine Color Urine Appearance Urine pH Ur Specific [place] Urine Protein Urine Glucose (UA) Urine Ketones Urine Blood Urine Nitrite Urine Bilirubin Urine Urobilinogen Ur Leukocyte Esterase Urine WBC (Auto) Urine RBC (Auto) Ur Epithelial Cells Urine Bacteria Hyaline Casts Urine Mucus Ur Random Sodium Ur Random Potassium Ur Random Chloride Urine Creatinine Blood Type Antibody Screen 10/17/17 10/18/17 10/18/17 21:50 05:20 05:20 WBC 6.3 D RBC 2.46 L Hgb 8.4 L Hct 25.1 L MCV 101.7 H MCH 34.0 H MCHC 33.4 RDW 14.2 Plt Count 266 MPV 9.7 Neutrophils % 74.3 Lymphocytes % 20.3 D Monocytes % 4.6 Eosinophils % 0.1 D Basophils % 0.7 D PT with INR 16.30 H INR 1.44 H PTT (Actin FS) 29.9 Carboxyhemoglobin Methemoglobin Sodium Potassium Chloride Carbon Dioxide Anion Gap BUN Creatinine Creat Clearance w eGFR POC Glucometer Random Glucose Hemoglobin A1c % Lactic Acid Calcium Phosphorus Magnesium Ferritin Total Bilirubin AST ALT Alkaline Phosphatase Creatine Kinase Creatine Kinase Index CK-MB (CK-2) Troponin I B-Natriuretic Peptide Total Protein Albumin Urine Color Urine Appearance Urine pH Ur Specific [place] Urine Protein Urine Glucose (UA) Urine Ketones Urine Blood Urine Nitrite Urine Bilirubin Urine Urobilinogen Ur Leukocyte Esterase Urine WBC (Auto) Urine RBC (Auto) Ur Epithelial Cells Urine Bacteria Hyaline Casts Urine Mucus Ur Random Sodium Ur Random Potassium Ur Random Chloride Urine Creatinine 49.5 Blood Type Antibody Screen 10/18/17 10/18/17 10/18/17 05:20 05:20 05:20 WBC RBC Hgb Hct MCV MCH MCHC RDW Plt Count MPV Neutrophils % Lymphocytes % Monocytes % Eosinophils % Basophils % PT with INR INR PTT (Actin FS) Carboxyhemoglobin Methemoglobin Sodium 142 Potassium 4.3 Chloride 110 H Carbon Dioxide 21 Anion Gap 11 BUN 18 Creatinine 1.1 D Creat Clearance w eGFR > 60 POC Glucometer Random Glucose 139 H D Hemoglobin A1c % 7.4 H Lactic Acid Calcium 7.9 L Phosphorus 3.0 Magnesium 1.8 Ferritin 882.597 H Total Bilirubin 0.3 D AST 28 D ALT 10 L D Alkaline Phosphatase 63 Creatine Kinase Creatine Kinase Index CK-MB (CK-2) Troponin I B-Natriuretic Peptide Total Protein 6.5 Albumin 2.4 L Urine Color Urine Appearance Urine pH Ur Specific [place] Urine Protein Urine Glucose (UA) Urine Ketones Urine Blood Urine Nitrite Urine Bilirubin Urine Urobilinogen Ur Leukocyte Esterase Urine WBC (Auto) Urine RBC (Auto) Ur Epithelial Cells Urine Bacteria Hyaline Casts Urine Mucus Ur Random Sodium Ur Random Potassium Ur Random Chloride Urine Creatinine Blood Type Antibody Screen 10/18/17 05:20 WBC RBC Hgb Hct MCV MCH MCHC RDW Plt Count MPV Neutrophils % Lymphocytes % Monocytes % Eosinophils % Basophils % PT with INR INR PTT (Actin FS) Carboxyhemoglobin Methemoglobin Sodium Potassium Chloride Carbon Dioxide Anion Gap BUN Creatinine Creat Clearance w eGFR POC Glucometer Random Glucose Hemoglobin A1c % Lactic Acid Calcium Phosphorus Magnesium Ferritin Total Bilirubin AST ALT Alkaline Phosphatase Creatine Kinase Creatine Kinase Index CK-MB (CK-2) Troponin I B-Natriuretic Peptide Cancelled Total Protein Albumin Urine Color Urine Appearance Urine pH Ur Specific [place] Urine Protein Urine Glucose (UA) Urine Ketones Urine Blood Urine Nitrite Urine Bilirubin Urine Urobilinogen Ur Leukocyte Esterase Urine WBC (Auto) Urine RBC (Auto) Ur Epithelial Cells Urine Bacteria Hyaline Casts Urine Mucus Ur Random Sodium Ur Random Potassium Ur Random Chloride Urine Creatinine Blood Type Antibody Screen Active Medications Generic Name Dose Route Start Last Admin Trade Name Freq PRN Reason Stop Dose Admin Chlorhexidine Gluconate 1 applic 10/17/17 22:00 10/17/17 21:29 Hibiclens For Decolonization - TP 1 applic HS SONAL Administration Heparin Sodium (Porcine) 5,000 unit 10/17/17 22:00 10/18/17 05:36 Heparin - SQ 5,000 unit TID SONAL Administration Azithromycin 500 mg/ Dextrose 250 mls @ 250 mls/hr 10/17/17 15:30 10/18/17 09 :18 IVPB 250 mls/hr DAILY SONAL Administration CEFTRIAXONE 1 G/50 ML PREMIX 50 mls @ 100 mls/hr 10/18/17 10:00 10/18/17 09: 18 Ceftriaxone 1 Gm-D5w Bag IVPB 100 mls/hr DAILY SONAL Administration Insulin Aspart 1 vial 10/17/17 16:30 10/18/17 06:16 Novolog Vial Sliding Scale - SQ Not Given ACHS [facility] Protocol Mupirocin 1 applic 10/17/17 22:00 10/18/17 09:19 Bactroban Ointment (For Decolonization) - NS 10/22/17 21:59 1 applic BID [facility] Administration ASSESSMENT/PLAN: Patient is a 62 year old male who was BIBEMS for hypoxic respiratory failure placed on Bipap with subsequent presser requirement and need for ICU level care. Neuro: #Nicotine Dependence: - Reassess need for nicotine patch CV: #Septic Shock vs. iatrogenic hypovolemic shock vs. cardiogenic shock: original presentation - Tachycardia of 105, Respiratory rate 26, Fever of 101, WBC of 11.7, Hypotension with SBP <90 with no response to IV fluids, and Lactic Acidosis of 3.6. Source unclear. - Daily CXR for PNA evolution - Possibly due to use of BiPAP increasing intrathoracic pressures and decreasing preload - Will titrate levophed as tolerated - BNP >2K and pressures stable so can give lasix 20 IV Pulm: #Acute Hypoxic Respiratory Failure: Legionalla and strep negative. Zosyn and Vancomycin given in ED. Patient denies any recent hospitalization or abx use. - Chest X-ray reveals bilateral multifocal inflammatory changes (ARDS) vs. congestive heart failure. given JVD and crackles it is likely the later. - Continue Azithromycin 500mg Daily and Ceftriaxone 1gm daily to cover atypical pneumonia and community acquired pneumonia. - Tylenol 1000mg IVP PRN for fevers - Elevated HOB - F/U Blood cultures pending - Lasix 20 IV today - ECHO showing mild mitral regurg, mild/mod tricuspid regurg, mild PHTN - BIPAP and 02 to maintain 02% >90%, claudio ltry on venti mask if respiratory status improves Renal: #Acute Kidney Injury: Resolving -Likely secondary to hypoperfusion from sepsis -CTM -Avoid nephrotoxic medications Heme: #Macrocytic Anemia: Hemoglobin 9.2 with MCV 101 - Ferritin 882 (likely reactive) - Will continue to trend Endo #NIDDM: -BGM -ISS -A1C ordered : #BPH -Patient on Tamsulosin 0.4mg daily GI: #Peptic Ulcer Disease -History of mesh according to family and had Endoscopy two months -Was given medications according to patients daughter and completed course FEN -hold fluids due to pulmonary congestion -Electrolytes wnl -NPO until able to tolerate venti mask PPX: -High risk. Heparin 5000 units sq Q8H -No GI required Disposition -Full code -Patient hypotensive requiring BIPAP still, will try on venti if tolerable Visit type - Emergency Visit Emergency Visit: No - New Patient This patient is new to me today: Yes Date on this admission: 10/18/17 - Critical Care Critical Care patient: Yes Total Critical Care Time (in minutes): 35 Critical Care Statement: The care of this patient involved high complexity decision making to prevent further life threatening deterioration of the patient 's condition and/or to evaluate & treat vital organ system(s) failure or risk of failure.
[2017-10-18 11:43] LABS: N-TERMINAL BNP 4061.68 pg/ml (5-125)
--- NOTE | 2017-10-18 12:29 | PN ---
Teaching Attending Note Name of Resident: Jaxson Echevarria ATTENDING PHYSICIAN STATEMENT I saw and evaluated the patient. I reviewed the resident's note and discussed the case with the resident. I agree with the resident's findings and plan as documented. SUBJECTIVE: Pt seen and examined in the ICU. Remains on BiPAP with 70% FiO2. States breathing is slightly better. Denies chest pain. No further fevers recorded. CXR worse today but was able to taper FiO2 to 50%. OBJECTIVE: Last Vital Signs Temp Pulse Resp BP Pulse Ox 99 F 72 26 H 103/68 98 10/18/17 10:00 10/18/17 12:00 10/18/17 12:00 10/18/17 12:00 10/18/17 12:13 Intake & Output 10/15/17 10/16/17 10/17/17 10/18/17 23:59 23:59 23:59 23:59 Intake Total 3650 Output Total 1225 300 Balance 2425 -300 Weight 58.967 kg 75.342 kg Gen: mildly tachypneic on BiPAP Heart: RRR Lung: basilar rales Abd: soft, nontender Ext: no edema CBC, BMP 10/18/17 05:20 10/18/17 05:20 Active Medications Chlorhexidine Gluconate (Hibiclens For Decolonization -) 1 applic TP HS [facility] Last Admin: 10/17/17 21:29 Dose: 1 applic Heparin Sodium (Porcine) (Heparin -) 5,000 unit SQ TID [facility] Last Admin: 10/18/17 05:36 Dose: 5,000 unit Azithromycin 500 mg/ Dextrose 250 mls @ 250 mls/hr IVPB DAILY [facility] Last Admin: 10/18/17 09:18 Dose: 250 mls/hr CEFTRIAXONE 1 G/50 ML PREMIX (Ceftriaxone 1 Gm-D5w Bag) 50 mls @ 100 mls/hr IVPB DAILY [facility] Last Admin: 10/18/17 09:18 Dose: 100 mls/hr Insulin Aspart (Novolog Vial Sliding Scale -) 1 vial SQ ACHS [facility] PRN Reason: Protocol Last Admin: 10/18/17 11:46 Dose: 2 units Mupirocin (Bactroban Ointment (For Decolonization) -) 1 applic NS BID [facility] Stop: 10/22/17 21:59 Last Admin: 01/03/18 09:19 Dose: 1 applic ASSESSMENT AND PLAN: Acute Hypoxic Respiratory Failure r/o Pneumonia r/o Influenza Sepsis Acute Kidney Injury Lactic Acidosis r/o CHF DM - antibiotics per ID - f/u cultures - titrate FiO2 to keep SpO2 >90% - BiPAP to assist in work of breathing, hypoxia - low dose lasix today - monitor urine output, creatinine - if respiratory status improving, can attempt ventimask - PO as tolerated - continue ICU monitoring for tenuous respiratory status critical care time spent in reviewing chart, evaluating patient and formulating plan 35 min Problem List - Problems (1) Acute respiratory failure with hypoxia Code(s): J96.01 - ACUTE RESPIRATORY FAILURE WITH HYPOXIA (2) Pneumonia Code(s): J18.9 - PNEUMONIA, UNSPECIFIED ORGANISM (3) Diabetes Code(s): E11.9 - TYPE 2 DIABETES MELLITUS WITHOUT COMPLICATIONS
--- NOTE | 2017-10-18 13:40 | PN ---
Teaching Attending Note Name of Resident: Mimi Pizarro ATTENDING PHYSICIAN STATEMENT Time of evaluation: 9:15 AM I saw and evaluated the patient. I reviewed the resident's note and discussed the case with the resident. I agree with the resident's findings and plan as documented. SUBJECTIVE: Patient seen and examined, on BIpap, breathing improved. No complaints otherwise. OBJECTIVE: Vital Signs Period Temp Pulse Resp BP Sys/Sutton Pulse Ox Last 24 Hr 99 F-99.9 F 62-92 18-36 88-116/32-71 89-100 Intake & Output 10/15/17 10/16/17 10/17/17 10/18/17 23:59 23:59 23:59 23:59 Intake Total 3650 Output Total 1225 300 Balance 2425 -300 Weight 130 lb 166 lb 1.6 oz General: lying in bed on bipap, in no acute distress CVs;S1S2 regular Chest: right basilar rales, decreased air entry all over suggestive of underlying emphysema, tenderness over left chest wall area, mild with no swelling or erythema Abdomen: soft, RUQ tenderness, ?positive Root's sign, no voluntary or involuntary guarding or rigidity Extremities: no edema Home Medication List Medication Instructions Recorded Confirmed Type Glipizide [Glucotrol Xl] 0 mg PO ASDIR 10/17/17 10/17/17 History Metformin HCl 0 mg PO ASDIR 10/17/17 10/17/17 History Tamsulosin HCl 0.4 mg PO DAILY 10/17/17 10/17/17 History Active Medications Generic Name Dose Route Start Last Admin Trade Name Freq PRN Reason Stop Dose Admin Chlorhexidine Gluconate 1 applic 10/17/17 22:00 10/17/17 21:29 Hibiclens For Decolonization - TP 1 applic HS SONAL Administration Heparin Sodium (Porcine) 5,000 unit 10/17/17 22:00 10/18/17 05:36 Heparin - SQ 5,000 unit TID SONAL Administration Azithromycin 500 mg/ Dextrose 250 mls @ 250 mls/hr 10/17/17 15:30 10/18/17 09 :18 IVPB 250 mls/hr DAILY SONAL Administration CEFTRIAXONE 1 G/50 ML PREMIX 50 mls @ 100 mls/hr 10/18/17 10:00 10/18/17 09: 18 Ceftriaxone 1 Gm-D5w Bag IVPB 100 mls/hr DAILY SONLA Administration Insulin Aspart 1 vial 10/17/17 16:30 10/18/17 11:46 Novolog Vial Sliding Scale - SQ 2 units ACHS SONAL Administration Protocol Mupirocin 1 applic 10/17/17 22:00 10/18/17 09:19 Bactroban Ointment (For Decolonization) - NS 10/22/17 21:59 1 applic BID SONAL Administration Laboratory Results - last 24 hr 10/17/17 10/17/17 10/17/17 10:15 12:55 13:57 WBC RBC Hgb Hct MCV MCH MCHC RDW Plt Count MPV Neutrophils % Lymphocytes % Monocytes % Eosinophils % Basophils % PT with INR INR PTT (Actin FS) Sodium Potassium Chloride Carbon Dioxide Anion Gap BUN Creatinine Creat Clearance w eGFR POC Glucometer Random Glucose Hemoglobin A1c % Lactic Acid 3.6 H* Calcium Phosphorus Magnesium Ferritin Total Bilirubin AST ALT Alkaline Phosphatase Troponin I B-Natriuretic Peptide Total Protein Albumin Urine Color Yellow Urine Appearance Clear Urine pH 5.0 Ur Specific [place] 1.017 Urine Protein 2+ H Urine Glucose (UA) Negative Urine Ketones Negative Urine Blood 1+ H Urine Nitrite Negative Urine Bilirubin Negative Urine Urobilinogen Negative Ur Leukocyte Esterase Negative Urine WBC (Auto) 8 Urine RBC (Auto) 7 Ur Epithelial Cells Rare Urine Bacteria Rare Hyaline Casts 2 Urine Mucus Rare Ur Random Sodium Ur Random Potassium Ur Random Chloride Urine Creatinine Blood Type O POSITIVE Antibody Screen Negative 10/17/17 10/17/17 10/17/17 16:00 16:40 18:45 WBC RBC Hgb Hct MCV MCH MCHC RDW Plt Count MPV Neutrophils % Lymphocytes % Monocytes % Eosinophils % Basophils % PT with INR INR PTT (Actin FS) Sodium Potassium Chloride Carbon Dioxide Anion Gap BUN Creatinine Creat Clearance w eGFR POC Glucometer Random Glucose Hemoglobin A1c % Lactic Acid 2.1 H* 1.6 Calcium Phosphorus Magnesium Ferritin Total Bilirubin AST ALT Alkaline Phosphatase Troponin I B-Natriuretic Peptide Total Protein Albumin Urine Color Urine Appearance Urine pH Ur Specific [place] Urine Protein Urine Glucose (UA) Urine Ketones Urine Blood Urine Nitrite Urine Bilirubin Urine Urobilinogen Ur Leukocyte Esterase Urine WBC (Auto) Urine RBC (Auto) Ur Epithelial Cells Urine Bacteria Hyaline Casts Urine Mucus Ur Random Sodium 22 Ur Random Potassium 14.9 Ur Random Chloride 17 Urine Creatinine Blood Type Antibody Screen 10/17/17 10/17/17 10/17/17 21:00 21:42 21:50 WBC RBC Hgb Hct MCV MCH MCHC RDW Plt Count MPV Neutrophils % Lymphocytes % Monocytes % Eosinophils % Basophils % PT with INR INR PTT (Actin FS) Sodium Potassium Chloride Carbon Dioxide Anion Gap BUN Creatinine Creat Clearance w eGFR POC Glucometer 144.62018 Random Glucose Hemoglobin A1c % Lactic Acid Calcium Phosphorus Magnesium Ferritin Total Bilirubin AST ALT Alkaline Phosphatase Troponin I 0.03 D B-Natriuretic Peptide Total Protein Albumin Urine Color Urine Appearance Urine pH Ur Specific [place] Urine Protein Urine Glucose (UA) Urine Ketones Urine Blood Urine Nitrite Urine Bilirubin Urine Urobilinogen Ur Leukocyte Esterase Urine WBC (Auto) Urine RBC (Auto) Ur Epithelial Cells Urine Bacteria Hyaline Casts Urine Mucus Ur Random Sodium Ur Random Potassium Ur Random Chloride Urine Creatinine 49.5 Blood Type Antibody Screen 10/18/17 10/18/17 10/18/17 05:20 05:20 05:20 WBC 6.3 D RBC 2.46 L Hgb 8.4 L Hct 25.1 L MCV 101.7 H MCH 34.0 H MCHC 33.4 RDW 14.2 Plt Count 266 MPV 9.7 Neutrophils % 74.3 Lymphocytes % 20.3 D Monocytes % 4.6 Eosinophils % 0.1 D Basophils % 0.7 D PT with INR 16.30 H INR 1.44 H PTT (Actin FS) 29.9 Sodium 142 Potassium 4.3 Chloride 110 H Carbon Dioxide 21 Anion Gap 11 BUN 18 Creatinine 1.1 D Creat Clearance w eGFR > 60 POC Glucometer Random Glucose 139 H D Hemoglobin A1c % Lactic Acid Calcium 7.9 L Phosphorus 3.0 Magnesium 1.8 Ferritin Total Bilirubin 0.3 D AST 28 D ALT 10 L D Alkaline Phosphatase 63 Troponin I B-Natriuretic Peptide 4061.68 H Total Protein 6.5 Albumin 2.4 L Urine Color Urine Appearance Urine pH Ur Specific [place] Urine Protein Urine Glucose (UA) Urine Ketones Urine Blood Urine Nitrite Urine Bilirubin Urine Urobilinogen Ur Leukocyte Esterase Urine WBC (Auto) Urine RBC (Auto) Ur Epithelial Cells Urine Bacteria Hyaline Casts Urine Mucus Ur Random Sodium Ur Random Potassium Ur Random Chloride Urine Creatinine Blood Type Antibody Screen 10/18/17 10/18/17 10/18/17 05:20 05:20 05:20 WBC RBC Hgb Hct MCV MCH MCHC RDW Plt Count MPV Neutrophils % Lymphocytes % Monocytes % Eosinophils % Basophils % PT with INR INR PTT (Actin FS) Sodium Potassium Chloride Carbon Dioxide Anion Gap BUN Creatinine Creat Clearance w eGFR POC Glucometer Random Glucose Hemoglobin A1c % 7.4 H Lactic Acid Calcium Phosphorus Magnesium Ferritin 882.597 H Total Bilirubin AST ALT Alkaline Phosphatase Troponin I B-Natriuretic Peptide Cancelled Total Protein Albumin Urine Color Urine Appearance Urine pH Ur Specific [place] Urine Protein Urine Glucose (UA) Urine Ketones Urine Blood Urine Nitrite Urine Bilirubin Urine Urobilinogen Ur Leukocyte Esterase Urine WBC (Auto) Urine RBC (Auto) Ur Epithelial Cells Urine Bacteria Hyaline Casts Urine Mucus Ur Random Sodium Ur Random Potassium Ur Random Chloride Urine Creatinine Blood Type Antibody Screen Microbiology 10/17/17 10:10 Blood - Peripheral Venous Blood Culture - Preliminary NO GROWTH OBTAINED AFTER 24 HOURS, INCUBATION TO CONTINUE FOR 4 DAYS. 10/17/17 10:10 Blood - Peripheral Venous Blood Culture - Preliminary NO GROWTH OBTAINED AFTER 24 HOURS, INCUBATION TO CONTINUE FOR 4 DAYS. 10/17/17 13:57 Urine For Antigen Detection Legionella Antigen - Final 10/17/17 13:57 Urine For Antigen Detection Streptococcus pneumoniae Antigen (M - Final 10/17/17 10:25 Nasopharyngeal Swab Influenza Types A,B Antigen ([facility]) - Final 10/17/17 10:25 Nasopharyngeal Swab - Final CXr- worsening congestive changes today62 yom active smoker, pMHx of NIDDM, PUD , BPH admitted with acute hypoxic respiratory failure, Septic shock, suspected CHF. 2D echo mildy reduced LV systolic function, EF 51% EKG NSR 99, LAE, no acute ST-T changes Microbiology 10/17/17 10:10 Blood - Peripheral Venous Blood Culture - Preliminary NO GROWTH OBTAINED AFTER 24 HOURS, INCUBATION TO CONTINUE FOR 4 DAYS. 10/17/17 10:10 Blood - Peripheral Venous Blood Culture - Preliminary NO GROWTH OBTAINED AFTER 24 HOURS, INCUBATION TO CONTINUE FOR 4 DAYS. 10/17/17 13:57 Urine For Antigen Detection Legionella Antigen - Final 10/17/17 13:57 Urine For Antigen Detection Streptococcus pneumoniae Antigen (M - Final 10/17/17 10:25 Nasopharyngeal Swab Influenza Types A,B Antigen ([facility]) - Final 10/17/17 10:25 Nasopharyngeal Swab - Final ASSESSMENT AND PLAN: -Acute hypoxic respiratory failure, suspect from ?interstitial infiltrates with CAP associated with CHF vs ARDS -Septic shock -Lactic acidosis, from sepsis vs increased work of breathing -?MIRLANDE from sepsis -NIDDM -PUD -BPH -RUQ pain and left chest wall pain, ?Root's sign Plan: Ceftriaxone/Azithromycin day 2. Follow up blood cultures. Sputum cultures if available. Influenza swab/urine pneumococcal/legionella Ag neg BP improved without fluids or pressors. CXR with worsening congestion today. 2D echo reviewed. Gentle diuresis with lasix cardiology consult wt Dr. Layne. Continue Bipap, Fio2 decreased to 50%, monitor for now. Femoral line placed in ED, removal in 24 hours. CXR suggestive of emphysematous changes, though no concerns for COPD exacerbation currently, monitor for now. ACS ruled out. 2D echo reviewed LFTs WNL, check RUQ ultrasound. ISS, diabetic diet when stabilizes Protonix Needs ICU monitoring given tenuous respiratory status, need for bipap and close hemodynamic monitoring. Total critical care time spent 35 min. PLan discussed with patient and daughter at bedside in detail, all questions answered.
[2017-10-18] MEDS ORDERED: PT OWN MED DRAWER 7, Y5N ONE (14:48)
--- NOTE | 2017-10-18 16:11 | CON.CARD ---
Consult Consult Specialty:: Cardiology Referred by:: kanika Ramirez Reason for Consultation:: CHF - History of Present Illness Chief Complaint: SOB History of Present Illness: 62 year old male with a pmhx of dm and tobacco use who presents with sob and cough. Patient was c/o intermittent cough which became constant along with sob over the last 3 days or so. No pnd, orthopnea, or edema. No chest pain or palpitations. WBC elevated 11s. Cr 1.5 now 1.1 Febrile in ER CXR with congestion with infiltrates BNP 4000 - History Source History Provided By: Patient, Family Member, Medical Record - Past Medical History Endocrine: Yes: Diabetes Mellitus - Alcohol/Substance Use Hx Alcohol Use: No - Smoking History Smoking history: Never smoked Aproximately how many cigarettes per day: 2 Home Medications - Allergies Allergies/Adverse Reactions: Allergies Allergy/AdvReac Type Severity Reaction Status Date / Time No Known Allergies Allergy Verified 10/17/17 09:56 - Home Medications Home Medications: Ambulatory Orders Glipizide [Glucotrol Xl] 0 mg PO ASDIR 10/17/17 Metformin HCl 0 mg PO ASDIR 10/17/17 Tamsulosin HCl 0.4 mg PO DAILY 10/17/17 Vital Signs: Vital Signs Temperature 98.2 F 10/18/17 14:00 Pulse Rate 80 10/18/17 16:00 Respiratory Rate 24 10/18/17 16:00 Blood Pressure 112/56 10/18/17 16:00 O2 Sat by Pulse Oximetry (%) 97 10/18/17 14:30 Constitutional: Yes: Mild Distress Neck: Yes: Supple Respiratory: Yes: On BiPap, Rhonchi Gastrointestinal: Yes: Soft Cardiovascular: Yes: Regular Rate and Rhythm Heart Sounds: Yes: S1, S2 Murmur: No: Systolic Murmur Edema: No - Other Data Labs, Other Data: CBC, BMP 10/18/17 05:20 10/18/17 05:20 INR, PTT INR 1.44 (0.82-1.09) H 10/18/17 05:20 Troponin, BNP 10/17/17 10/18/17 10/18/17 21:00 05:20 05:20 Troponin I 0.03 D B-Natriuretic Peptide 4061.68 H Cancelled Troponin, BNP 10/17/17 10/18/17 10/18/17 21:00 05:20 05:20 Troponin I 0.03 D B-Natriuretic Peptide 4061.68 H Cancelled Imaging - Results Chest X-ray: Report Reviewed EKG: Image Reviewed Assessment/Plan 62 year old male with a pmhx of dm and tobacco use who presents with sob and cough. Patient was c/o intermittent cough which became constant along with sob over the last 3 days or so. No pnd, orthopnea, or edema. No chest pain or palpitations. WBC elevated 11s. Cr 1.5 now 1.1 Febrile in ER CXR with congestion with infiltrates BNP 4000 1) SOB likely multifactorial Being treated with Ceftriaxone/Azithro for pna with improvement in WBC and respiratory status. Afebrile at this time Given mildly decreased lvef with BNP 4000 would agree with gentle IV diuresis as bp allows. 20mg IV furosemide daily and monitor I/O's, daily weights and lytes. Good urine output today after first dose As recovers from infection, will evaluate for other cardiac medications depending on blood pressure/hemodynamics Continue telemetry, CE's negative and no acute ischemic changes on ekg.
--- NOTE | 2017-10-18 21:57 | PN ---
Physical Exam: SUBJECTIVE: Patient seen and examined. Pt on bipap, breathing has improved. Pt c/o being hungry, explained that pt will remain npo while on bipap. Pt denies chest pain, sob, fever, chills. OBJECTIVE: Vital Signs Period Temp Pulse Resp BP Sys/Sutton Pulse Ox Last 24 Hr 98.2 F-99.6 F 62-92 24-30 93-112/32-68 94-100 GENERAL: The patient is awake, alert, and fully oriented, in no acute distress. LUNGS: Bibasilar rales and scattered rhonchi. HEART: Regular rate and rhythm, S1, S2 without murmur, rub or gallop. ABDOMEN: RUQ tender, (+) zavala's sign. Soft, nondistended, normoactive bowel sounds, no guarding. EXTREMITIES: 2+ pulses, warm, well-perfused, no edema. PSYCH: Normal mood, normal affect. SKIN: Warm, dry, normal turgor, no rashes or lesions noted Laboratory Results - last 24 hr 10/17/17 10/17/17 10/17/17 21:00 21:42 21:50 WBC RBC Hgb Hct MCV MCH MCHC RDW Plt Count MPV Neutrophils % Lymphocytes % Monocytes % Eosinophils % Basophils % PT with INR INR PTT (Actin FS) Sodium Potassium Chloride Carbon Dioxide Anion Gap BUN Creatinine Creat Clearance w eGFR POC Glucometer [id number] Random Glucose Hemoglobin A1c % Calcium Phosphorus Magnesium Ferritin Total Bilirubin AST ALT Alkaline Phosphatase Troponin I 0.03 D B-Natriuretic Peptide Total Protein Albumin Urine Creatinine 49.5 10/18/17 10/18/17 10/18/17 05:20 05:20 05:20 WBC 6.3 D RBC 2.46 L Hgb 8.4 L Hct 25.1 L MCV 101.7 H MCH 34.0 H MCHC 33.4 RDW 14.2 Plt Count 266 MPV 9.7 Neutrophils % 74.3 Lymphocytes % 20.3 D Monocytes % 4.6 Eosinophils % 0.1 D Basophils % 0.7 D PT with INR 16.30 H INR 1.44 H PTT (Actin FS) 29.9 Sodium 142 Potassium 4.3 Chloride 110 H Carbon Dioxide 21 Anion Gap 11 BUN 18 Creatinine 1.1 D Creat Clearance w eGFR > 60 POC Glucometer Random Glucose 139 H D Hemoglobin A1c % Calcium 7.9 L Phosphorus 3.0 Magnesium 1.8 Ferritin Total Bilirubin 0.3 D AST 28 D ALT 10 L D Alkaline Phosphatase 63 Troponin I B-Natriuretic Peptide 4061.68 H Total Protein 6.5 Albumin 2.4 L Urine Creatinine 10/18/17 10/18/17 10/18/17 05:20 05:20 05:20 WBC RBC Hgb Hct MCV MCH MCHC RDW Plt Count MPV Neutrophils % Lymphocytes % Monocytes % Eosinophils % Basophils % PT with INR INR PTT (Actin FS) Sodium Potassium Chloride Carbon Dioxide Anion Gap BUN Creatinine Creat Clearance w eGFR POC Glucometer Random Glucose Hemoglobin A1c % 7.4 H Calcium Phosphorus Magnesium Ferritin 882.597 H Total Bilirubin AST ALT Alkaline Phosphatase Troponin I B-Natriuretic Peptide Cancelled Total Protein Albumin Urine Creatinine Active Medications Generic Name Dose Route Start Last Admin Trade Name Freq PRN Reason Stop Dose Admin Chlorhexidine Gluconate 1 applic 10/17/17 22:00 10/17/17 21:29 Hibiclens For Decolonization - TP 1 applic HS SONAL Administration Heparin Sodium (Porcine) 5,000 unit 10/17/17 22:00 10/18/17 13:54 Heparin - SQ 5,000 unit TID SONAL Administration Azithromycin 500 mg/ Dextrose 250 mls @ 250 mls/hr 10/17/17 15:30 10/18/17 09 :18 IVPB 250 mls/hr DAILY SONAL Administration CEFTRIAXONE 1 G/50 ML PREMIX 50 mls @ 100 mls/hr 10/18/17 10:00 10/18/17 09: 18 Ceftriaxone 1 Gm-D5w Bag IVPB 100 mls/hr DAILY SONAL Administration Insulin Aspart 1 vial 10/17/17 16:30 10/18/17 17:11 Novolog Vial Sliding Scale - SQ Not Given ACHS [facility] Protocol Mupirocin 1 applic 10/17/17 22:00 10/18/17 09:19 Bactroban Ointment (For Decolonization) - NS 10/22/17 21:59 1 applic BID SONAL Administration IMAGIN10/18/17 Echo -> Left ventricle normal in size, systolic function mildly reduced. Right ventricle normal in size and function. Mild-moderate mitral valve thickening. Mild TR. Mild pulmonary htn. Mild aortic sclerosis. 10/18/17 CXR -> congestive and infiltrative changes persist ASSESSMENT/PLAN: 62M with PMH of NIDDM, PUD, BPH, presents with respiratory failure, admitted to ICU for severe sepsis 2/2 CAP. # septic shock likely 2/2 CAP - off pressors - Day 2 of IV Azithromycin and IV Ceftriaxone - Influenza A&B (-) - Legionella and strep pneumo (-) - blood cultures (-) x 24 hrs - f/u urine culture - lactic acidosis resolved - bipap to assist in work of breathing - if respiratory status improves -> attempt ventimask - low dose lasix given today # RUQ pain - f/u Ab US - LFTs wnl # MIRLANDE - resolved - avoid nephrotoxic agents - monitor UOP and Cr # macrocytic anemia - monitor # NIDDM - BGMs - Novolog SSI # BPH - continue home med of Flomax # FEN - Fluids: held for now by ICU team - Electrolytes: wnl, continue to monitor - Nutrition: npo # Prophylaxis - DVT ppx with Heparin TID Visit type - Emergency Visit Emergency Visit: Yes ED Registration Date: 10/17/17 Care time: The patient presented to the Emergency Department on the above date and was hospitalized for further evaluation of their emergent condition. - New Patient This patient is new to me today: Yes Date on this admission: 10/18/17 - Critical Care Critical Care patient: Yes Total Critical Care Time (in minutes): 45 Critical Care Statement: The care of this patient involved high complexity decision making to prevent further life threatening deterioration of the patient 's condition and/or to evaluate & treat vital organ system(s) failure or risk of failure.
[2017-10-18] MEDS: CHLORHEXIDINE GLUCONATE 4% CLEANSER FOR DECOLONIZATION TP SCH (22:24)
[2017-10-19] MEDS: HEPARIN NA (PORCINE) 5,000 UNITS/ML 1ML VIAL SQ SCH ×3 (05:55→22:43)
[2017-10-19 06:07] LABS: SERUM IRON SATURATION 9 % (15-55); TOTAL IRON BINDING CAPACITY 158 ug/dL (250-450); TRANSFERRIN 126 mg/dL (200-370); UIBC 143 ug/dL (111-343)
[2017-10-19] MEDS: INSULIN SLIDING SCALE (NOVOLOG) 1 VIAL SQ SCH ×4 (06:09→22:44)
[2017-10-19 06:26] LABS: BASO % 0.5 % (0-2.0); EOS % 0.3 % (0-4.5); HEMATOCRIT 26.8 % (35.4-49); HEMOGLOBIN 8.8 GM/dL (11.7-16.9); LYMPH % 20.5 % (8-40); MCH 33.2 pg (25.7-33.7); MCHC 32.8 g/dl (32.0-35.9); MEAN CELL VOLUME 101.3 fl (80-96); MEAN PLT VOLUME 9.6 fl (7.5-11.1); MONO % 4.2 % (3.8-10.2); NEUT % 74.5 % (42.8-82.8); PLATELET COUNT 292 K/MM3 (134-434); RBC 2.65 M/mm3 (4.00-5.60); RDW 14.5 % (11.9-15.9); WHITE BLOOD COUNT 6.2 K/mm3 (4.0-10.0)
[2017-10-19 06:40] LABS: ALBUMIN 2.4 g/dl (3.4-5.0); ANION GAP 7 (8-16); BLOOD UREA NITROGEN 24 mg/dL (7-18); CALCIUM 8.3 mg/dL (8.5-10.1); CHLORIDE 110 mmol/L (98-107); CO2 27 mmol/L (21-32); GLUCOSE,RANDOM 157 mg/dL (74-106); MAGNESIUM 2.2 mg/dL (1.8-2.4); POTASSIUM 4.1 mmol/L (3.5-5.1); SODIUM 144 mmol/L (136-145)
[2017-10-19 06:44] LABS: ALK PHOS 67 U/L (45-117); BILIRUBIN,TOTAL 0.4 mg/dL (0.2-1.0); PHOSPHOROUS 2.7 mg/dL (2.5-4.9); SGOT/AST 19 U/L (15-37); SGPT/ALT 13 U/L (12-78); TOT PROT 7.1 g/dl (6.4-8.2)
--- NOTE | 2017-10-19 07:18 | PN ---
Progress Note, Physician Chief Complaint: SOB improving urine output 1.8 liters yesterday History of Present Illness: 62 year old male with a pmhx of dm and tobacco use who presents with sob and cough. Patient was c/o intermittent cough which became constant along with sob over the last 3 days or so. No pnd, orthopnea, or edema. No chest pain or palpitations. WBC elevated 11s. Cr 1.5 now 1.1 Febrile in ER CXR with congestion with infiltrates BNP 4000 - Current Medication List Current Medications: Active Medications Chlorhexidine Gluconate (Hibiclens For Decolonization -) 1 applic TP HS [facility] Last Admin: 10/18/17 22:24 Dose: 1 applic Heparin Sodium (Porcine) (Heparin -) 5,000 unit SQ TID [facility] Last Admin: 10/19/17 05:55 Dose: 5,000 unit Azithromycin 500 mg/ Dextrose 250 mls @ 250 mls/hr IVPB DAILY [facility] Last Admin: 10/18/17 09:18 Dose: 250 mls/hr CEFTRIAXONE 1 G/50 ML PREMIX (Ceftriaxone 1 Gm-D5w Bag) 50 mls @ 100 mls/hr IVPB DAILY [facility] Last Admin: 10/18/17 09:18 Dose: 100 mls/hr Insulin Aspart (Novolog Vial Sliding Scale -) 1 vial SQ ACHS [facility] PRN Reason: Protocol Last Admin: 10/19/17 06:09 Dose: Not Given Mupirocin (Bactroban Ointment (For Decolonization) -) 1 applic NS BID [facility] Stop: 10/22/17 21:59 Last Admin: 10/18/17 22:24 Dose: 1 applic - Objective Vital Signs: Vital Signs Temperature 98.2 F 10/19/17 06:00 Pulse Rate 60 10/19/17 06:00 Respiratory Rate 20 10/19/17 06:00 Blood Pressure 82/68 10/19/17 06:00 O2 Sat by Pulse Oximetry (%) 92 L 10/19/17 05:23 Constitutional: Yes: No Distress Neck: Yes: Supple Cardiovascular: Yes: Regular Rate and Rhythm, S1, S2 Respiratory: Yes: Other (minimal bibasilar rales) Gastrointestinal: Yes: Soft Edema: No Labs: CBC, BMP 10/19/17 05:10 10/19/17 05:10 INR, PTT INR 1.44 (0.82-1.09) H 10/18/17 05:20 Assessment/Plan 62 year old male with a pmhx of dm and tobacco use who presents with sob and cough. Patient was c/o intermittent cough which became constant along with sob over the last 3 days or so. No pnd, orthopnea, or edema. No chest pain or palpitations. WBC elevated 11s. Cr 1.5 now 1.1 Febrile in ER CXR with congestion with infiltrates BNP 4000 1) SOB likely multifactorial Being treated with Ceftriaxone/Azithro for pna with improvement in WBC and respiratory status. Afebrile at this time Given mildly decreased lvef with BNP 4000 patient received 20mg IV furosemide with good urine output. Cr 1.0 today. monitor I/O's, daily weights and lytes. As recovers from infection, will evaluate for other cardiac medications depending on blood pressure/hemodynamics Continue telemetry, CE's negative and no acute ischemic changes on ekg. BP this morning on low side but patient is asymptomatic. Does not seem overtly volume overloaded so if bp remains low do not give any diuretic. If bp improves and can tolerate can give low dose 20mg furosemide than.
[2017-10-19] MEDS: AZITHROMYCIN IVPB 500 MG in DEXTROSE 5%-WATER - 250 ML IVPB SCH (09:47)
[2017-10-19] MEDS: MUPIROCIN 2% TOPICAL OINTMENT FOR DECOLONIZATION NS SCH ×2 (09:48→22:43)
[2017-10-19] MEDS ORDERED: FUROSEMIDE 40 MG/4 ML INJECTABLE VIAL IVPUSH ONE (10:34)
--- NOTE | 2017-10-19 11:43 | PN ---
Physical Exam: SUBJECTIVE: Did well overnight but unable to wean BiPap to venti mask last night becaue of desaturation. Looks well this AM OBJECTIVE: Vital Signs Period Temp Pulse Resp BP Sys/Sutton Pulse Ox Last 24 Hr 96.6 F-98.9 F 60-80 18-26 82-112/42-68 92-99 GENERAL: The patient is awake, alert, and fully oriented, in no acute distress. HEAD: Normal with no signs of trauma. EYES: PERRL, extraocular movements intact, sclera anicteric, conjunctiva clear. No ptosis. ENT: Ears normal. Bipap mask on. NECK: Trachea midline, full range of motion, supple. LUNGS: Coarse bilateral lower lung field crackles, slight accessory muscle usage , turned down FiO2 from 70% to 60% HEART: + JVD.Regular rate and rhythm, S1, S2 without murmur, rub or gallop. ABDOMEN: Soft, nontender, nondistended, normoactive bowel sounds, no guarding, no rebound, no hepatosplenomegaly, no masses. EXTREMITIES: 2+ pulses, warm, well-perfused, no edema. NEUROLOGICAL: No obvious focal deficit PSYCH: Normal mood, normal affect. SKIN: Warm, dry, normal turgor, no rashes or lesions noted Laboratory Results - last 24 hr 10/18/17 10/18/17 10/18/17 05:20 05:20 05:33 WBC RBC Hgb Hct MCV MCH MCHC RDW Plt Count MPV Neutrophils % Lymphocytes % Monocytes % Eosinophils % Basophils % Sodium Potassium Chloride Carbon Dioxide Anion Gap BUN Creatinine Creat Clearance w eGFR POC Glucometer [phone] Random Glucose Calcium Phosphorus Magnesium Iron 15 L TIBC 158 L Iron Saturation 9 L Transferrin 126 L Total Bilirubin AST ALT Alkaline Phosphatase B-Natriuretic Peptide 4061.68 H Total Protein Albumin 10/18/17 10/18/17 10/18/17 11:40 16:30 21:45 WBC RBC Hgb Hct MCV MCH MCHC RDW Plt Count MPV Neutrophils % Lymphocytes % Monocytes % Eosinophils % Basophils % Sodium Potassium Chloride Carbon Dioxide Anion Gap BUN Creatinine Creat Clearance w eGFR POC Glucometer 208.05671 155.03034 [phone] Random Glucose Calcium Phosphorus Magnesium Iron TIBC Iron Saturation Transferrin Total Bilirubin AST ALT Alkaline Phosphatase B-Natriuretic Peptide Total Protein Albumin 10/19/17 10/19/17 10/19/17 05:10 05:10 06:05 WBC 6.2 RBC 2.65 L Hgb 8.8 L Hct 26.8 L MCV 101.3 H MCH 33.2 MCHC 32.8 RDW 14.5 Plt Count 292 MPV 9.6 Neutrophils % 74.5 Lymphocytes % 20.5 Monocytes % 4.2 Eosinophils % 0.3 D Basophils % 0.5 Sodium 144 Potassium 4.1 Chloride 110 H Carbon Dioxide 27 D Anion Gap 7 L BUN 24 H D Creatinine 1.0 Creat Clearance w eGFR > 60 POC Glucometer [phone] Random Glucose 157 H Calcium 8.3 L Phosphorus 2.7 Magnesium 2.2 D Iron TIBC Iron Saturation Transferrin Total Bilirubin 0.4 D AST 19 D ALT 13 D Alkaline Phosphatase 67 B-Natriuretic Peptide Total Protein 7.1 Albumin 2.4 L Vital Signs Temp 98.4 F 10/19/17 10:00 Pulse 71 10/19/17 10:00 Resp 20 10/19/17 10:00 BP 108/53 10/19/17 10:00 Pulse Ox 97 10/19/17 11:47 Intake & Output 10/18/17 10/19/17 10/19/17 23:59 11:59 23:59 Intake Total 300 Output Total 1500 Balance -1200 Weight 75.342 kg Intake: IVPB 300 Output: Urine 1500 Void 1500 Other: Voiding Method Urinal # Unmeasured Voids Void 1 1 Bowel Movement Yes # Bowel Movements 1 1 Weight Measurement Method Built in [facility] Microbiology 10/17/17 10:10 Blood - Peripheral Venous Blood Culture - Preliminary NO GROWTH OBTAINED AFTER 48 HOURS, INCUBATION TO CONTINUE FOR 3 DAYS. 10/17/17 10:10 Blood - Peripheral Venous Blood Culture - Preliminary NO GROWTH OBTAINED AFTER 48 HOURS, INCUBATION TO CONTINUE FOR 3 DAYS. 10/17/17 13:57 Urine - Urine Clean Catch Urine Culture - Final NO GROWTH OBTAINED 10/17/17 13:57 Urine For Antigen Detection Legionella Antigen - Final 10/17/17 13:57 Urine For Antigen Detection Streptococcus pneumoniae Antigen (M - Final 10/17/17 10:25 Nasopharyngeal Swab Influenza Types A,B Antigen ([facility]) - Final 10/17/17 10:25 Nasopharyngeal Swab - Final Active Medications Generic Name Dose Route Start Last Admin Trade Name Freq PRN Reason Stop Dose Admin Chlorhexidine Gluconate 1 applic 10/17/17 22:00 10/18/17 22:24 Hibiclens For Decolonization - TP 1 applic HS SONAL Administration Heparin Sodium (Porcine) 5,000 unit 10/17/17 22:00 10/19/17 05:55 Heparin - SQ 5,000 unit TID SONAL Administration Azithromycin 500 mg/ Dextrose 250 mls @ 250 mls/hr 10/17/17 15:30 10/19/17 09 :47 IVPB 250 mls/hr DAILY SONAL Administration CEFTRIAXONE 1 G/50 ML PREMIX 50 mls @ 100 mls/hr 10/18/17 10:00 10/18/17 09: 18 Ceftriaxone 1 Gm-D5w Bag IVPB 100 mls/hr DAILY SONAL Administration Insulin Aspart 1 vial 10/17/17 16:30 10/19/17 06:09 Novolog Vial Sliding Scale - SQ Not Given ACHS [facility] Protocol Mupirocin 1 applic 10/17/17 22:00 10/19/17 09:48 Bactroban Ointment (For Decolonization) - NS 10/22/17 21:59 1 applic BID SONAL Administration ASSESSMENT/PLAN: Patient is a 62 year old male who was BIBEMS for hypoxic respiratory failure placed now transitioned from BiPap to HFNC, eating food, and off of pressers. Neuro: #Nicotine Dependence: - Patient would like a nictoine patch so will order low dose 7 MG daily (1-2 cig per day smoker) CV: #Septic Shock vs. iatrogenic hypovolemic shock vs. cardiogenic shock: original presentation - Tachycardia of 105, Respiratory rate 26, Fever of 101, WBC of 11.7, Hypotension with SBP <90 with no response to IV fluids, and Lactic Acidosis of 3.6. Source unclear. - Repeat CXR improved pulmonary edema (out 1.2 L yesterday) - Possibly due to use of BiPAP increasing intrathoracic pressures and decreasing preload, will switch to high flow - off pressors x 2 days - Pressures in 110s systolic so will give lasix 20IV Pulm: #Acute Hypoxic Respiratory Failure: Legionalla and strep negative. Zosyn and Vancomycin given in ED. Patient denies any recent hospitalization or abx use. Original chest X-ray reveals bilateral multifocal inflammatory changes (ARDS) vs. congestive heart failure. given JVD and crackles it is likely the later. Still will treat for CAP - Repeat XR improved s/p lasix - Continue Azithromycin 500mg Daily and Ceftriaxone 1gm QD - Tylenol 1000mg IVP PRN for fevers - Elevated HOB - F/U Blood cultures pending - Lasix 20 IV today - ECHO showing mild mitral regurg, mild/mod tricuspid regurg, mild PHTN - Did well on BIPAP so will try HFNC today for comfort and for PO nutrition. Maintain SAT >90% Renal: #Acute Kidney Injury: Resolved -Likely secondary to hypoperfusion from sepsis -CTM -Avoid nephrotoxic medications Heme: #Macrocytic Anemia: Hemoglobin 9.2 with MCV 101 - Ferritin 882 (likely reactive) - Will continue to trend Endo #NIDDM: -BGM -ISS : #BPH -Patient on Tamsulosin 0.4mg daily GI: #Peptic Ulcer Disease -History of mesh according to family and had Endoscopy two months -Was given medications according to patients daughter and completed course FEN -hold fluids due to pulmonary congestion -Electrolytes wnl -Diabetic diet while on HF NC PPX: -High risk. Heparin 5000 units sq Q8H -No GI required Disposition -Full code -Patient hypotensive requiring noninvasive ventilation, will continue on hfnc and diuretics as tolerated Visit type - Emergency Visit Emergency Visit: No - New Patient This patient is new to me today: No - Critical Care Critical Care patient: Yes Total Critical Care Time (in minutes): 35 Critical Care Statement: The care of this patient involved high complexity decision making to prevent further life threatening deterioration of the patient 's condition and/or to evaluate & treat vital organ system(s) failure or risk of failure. - Discharge Referral Referred to [facility] No
[2017-10-19] MEDS: CEFTRIAXONE 1 G/50 ML PREMIX 50 ML IVPB SCH (12:02)
--- NOTE | 2017-10-19 12:28 | PN ---
Teaching Attending Note Name of Resident: Jaxson Echevarria ATTENDING PHYSICIAN STATEMENT I saw and evaluated the patient. I reviewed the resident's note and discussed the case with the resident. I agree with the resident's findings and plan as documented. SUBJECTIVE: Pt seen and examined in the ICU. Remains on BiPAP with 50% FiO2. Diuresed well with lasix with improving CXR. OBJECTIVE: Last Vital Signs Temp Pulse Resp BP Pulse Ox 98.4 F 71 20 108/53 97 10/19/17 10:00 10/19/17 10:00 10/19/17 10:00 10/19/17 10:00 10/19/17 11:47 Intake & Output 10/16/17 10/17/17 10/18/17 10/19/17 23:59 23:59 23:59 23:59 Intake Total 3650 300 Output Total 1225 1800 Balance 2425 -1500 Weight 58.967 kg 75.342 kg 75.342 kg Gen: mildly tachypneic with movement Heart: RRR Lung: basilar rales improving Abd: soft, nontender Ext: no edema CBC, BMP 10/19/17 05:10 10/19/17 05:10 Active Medications Chlorhexidine Gluconate (Hibiclens For Decolonization -) 1 applic TP HS [facility] Last Admin: 10/18/17 22:24 Dose: 1 applic Heparin Sodium (Porcine) (Heparin -) 5,000 unit SQ TID [facility] Last Admin: 10/19/17 05:55 Dose: 5,000 unit Azithromycin 500 mg/ Dextrose 250 mls @ 250 mls/hr IVPB DAILY [facility] Last Admin: 10/19/17 09:47 Dose: 250 mls/hr CEFTRIAXONE 1 G/50 ML PREMIX (Ceftriaxone 1 Gm-D5w Bag) 50 mls @ 100 mls/hr IVPB DAILY [facility] Last Admin: 10/19/17 12:02 Dose: 100 mls/hr Insulin Aspart (Novolog Vial Sliding Scale -) 1 vial SQ ACHS [facility] PRN Reason: Protocol Last Admin: 10/19/17 12:03 Dose: 2 units Mupirocin (Bactroban Ointment (For Decolonization) -) 1 applic NS BID [facility] Stop: 10/22/17 21:59 Last Admin: 10/19/17 09:48 Dose: 1 applic ASSESSMENT AND PLAN: Acute Hypoxic Respiratory Failure Pneumonia Sepsis Acute Diastolic Heart Failure Acute Kidney Injury Lactic Acidosis r/o CHF DM - antibiotics per ID - titrate FiO2 to keep SpO2 >90% - will place on HFOT - continue low dose lasix today - monitor urine output, creatinine - PO as tolerated - continue ICU monitoring for tenuous respiratory status critical care time spent in reviewing chart, evaluating patient and formulating plan 35 min Problem List - Problems (1) Acute respiratory failure with hypoxia Code(s): J96.01 - ACUTE RESPIRATORY FAILURE WITH HYPOXIA (2) Pneumonia Code(s): J18.9 - PNEUMONIA, UNSPECIFIED ORGANISM (3) Diabetes Code(s): E11.9 - TYPE 2 DIABETES MELLITUS WITHOUT COMPLICATIONS
--- NOTE | 2017-10-19 13:49 | PN ---
Teaching Attending Note Name of Resident: Mimi Pizarro ATTENDING PHYSICIAN STATEMENT Time of evaluation: 9:20 AM I saw and evaluated the patient. I reviewed the resident's note and discussed the case with the resident. I agree with the resident's findings and plan as documented. SUBJECTIVE: Patient seen and examined. breathing improved, Still with coughing, reports chest wall pain and upper abdominal pain from coughing. No dizziness, palpitations, or new complaints otherwise. OBJECTIVE: Vital Signs Period Temp Pulse Resp BP Sys/Sutton Pulse Ox Last 24 Hr 96.6 F-98.9 F 60-80 18-24 82-112/42-68 92-99 Intake & Output 10/16/17 10/17/17 10/18/17 10/19/17 23:59 23:59 23:59 23:59 Intake Total 3650 300 Output Total 1225 1800 Balance 2425 -1500 Weight 130 lb 166 lb 1.6 oz 166 lb 1.6 oz General: lying in bed on Bipap in no acute distress Chest: few right basilar rales, improved exam, chest wall mild tenderness over rib cage area, no swelling or erythema noted Abdomen: right sided abdominal tenderness, superficial, (reports when coughs), no voluntary or involuntary guarding or rigidity Extremities: no edema neck: jugular venous distension Home Medication List Medication Instructions Recorded Confirmed Type Glipizide [Glucotrol Xl] 0 mg PO ASDIR 10/17/17 10/17/17 History Metformin HCl 0 mg PO ASDIR 10/17/17 10/17/17 History Tamsulosin HCl 0.4 mg PO DAILY 10/17/17 10/17/17 History Active Medications Generic Name Dose Route Start Last Admin Trade Name Ivan PRN Reason Stop Dose Admin Chlorhexidine Gluconate 1 applic 10/17/17 22:00 10/18/17 22:24 Hibiclens For Decolonization - TP 1 applic HS [facility]ON[facility] Administration Heparin Sodium (Porcine) 5,000 unit 10/17/17 22:00 10/19/17 05:55 Heparin - SQ 5,000 unit TID [facility]ON[facility] Administration Azithromycin 500 mg/ Dextrose 250 mls @ 250 mls/hr 10/17/17 15:30 10/19/17 09 :47 IVPB 250 mls/hr DAILY [facility] Administration CEFTRIAXONE 1 G/50 ML PREMIX 50 mls @ 100 mls/hr 10/18/17 10:00 10/19/17 12: 02 Ceftriaxone 1 Gm-D5w Bag IVPB 100 mls/hr DAILY [facility] Administration Insulin Aspart 1 vial 10/17/17 16:30 10/19/17 12:03 Novolog Vial Sliding Scale - SQ 2 units ACHS [facility]ON[facility] Administration Protocol Mupirocin 1 applic 10/17/17 22:00 10/19/17 09:48 Bactroban Ointment (For Decolonization) - NS 10/22/17 21:59 1 applic BID SONAL Administration Nicotine 7 mg 10/19/17 12:45 Nicoderm Patch - TD DAILY [facility] Laboratory Results - last 24 hr 10/18/17 10/18/17 10/18/17 05:20 05:33 11:40 WBC RBC Hgb Hct MCV MCH MCHC RDW Plt Count MPV Neutrophils % Lymphocytes % Monocytes % Eosinophils % Basophils % Sodium Potassium Chloride Carbon Dioxide Anion Gap BUN Creatinine Creat Clearance w eGFR POC Glucometer 182.71491 208.36452 Random Glucose Calcium Phosphorus Magnesium Iron 15 L TIBC 158 L Iron Saturation 9 L Transferrin 126 L Total Bilirubin AST ALT Alkaline Phosphatase Total Protein Albumin 10/18/17 10/18/17 10/19/17 16:30 21:45 05:10 WBC 6.2 RBC 2.65 L Hgb 8.8 L Hct 26.8 L MCV 101.3 H MCH 33.2 MCHC 32.8 RDW 14.5 Plt Count 292 MPV 9.6 Neutrophils % 74.5 Lymphocytes % 20.5 Monocytes % 4.2 Eosinophils % 0.3 D Basophils % 0.5 Sodium Potassium Chloride Carbon Dioxide Anion Gap BUN Creatinine Creat Clearance w eGFR POC Glucometer 155.81124 189.53146 Random Glucose Calcium Phosphorus Magnesium Iron TIBC Iron Saturation Transferrin Total Bilirubin AST ALT Alkaline Phosphatase Total Protein Albumin 10/19/17 10/19/17 10/19/17 05:10 06:05 11:03 WBC RBC Hgb Hct MCV MCH MCHC RDW Plt Count MPV Neutrophils % Lymphocytes % Monocytes % Eosinophils % Basophils % Sodium 144 Potassium 4.1 Chloride 110 H Carbon Dioxide 27 D Anion Gap 7 L BUN 24 H D Creatinine 1.0 Creat Clearance w eGFR > 60 POC Glucometer 175.87664 229.04920 Random Glucose 157 H Calcium 8.3 L Phosphorus 2.7 Magnesium 2.2 D Iron TIBC Iron Saturation Transferrin Total Bilirubin 0.4 D AST 19 D ALT 13 D Alkaline Phosphatase 67 Total Protein 7.1 Albumin 2.4 L Microbiology 10/17/17 10:10 Blood - Peripheral Venous Blood Culture - Preliminary NO GROWTH OBTAINED AFTER 48 HOURS, INCUBATION TO CONTINUE FOR 3 DAYS. 10/17/17 10:10 Blood - Peripheral Venous Blood Culture - Preliminary NO GROWTH OBTAINED AFTER 48 HOURS, INCUBATION TO CONTINUE FOR 3 DAYS. 10/17/17 13:57 Urine - Urine Clean Catch Urine Culture - Final NO GROWTH OBTAINED 10/17/17 13:57 Urine For Antigen Detection Legionella Antigen - Final 10/17/17 13:57 Urine For Antigen Detection Streptococcus pneumoniae Antigen (M - Final 10/17/17 10:25 Nasopharyngeal Swab Influenza Types A,B Antigen ([facility]) - Final 10/17/17 10:25 Nasopharyngeal Swab - Final 2D echo reviewed ASSESSMENT AND PLAN: 62 yom active smoker, pMHx of NIDDM, PUD, BPH admitted with acute hypoxic respiratory failure, Septic shock, suspected CHF. -Acute hypoxic respiratory failure, suspect from ?interstitial infiltrates with CAP associated with CHF vs ARDS -Acute diastolic heart failure -Severe sepsis, likely from PNA -Lactic acidosis, from sepsis vs increased work of breathing -?MIRLANDE from sepsis -NIDDM -PUD -BPH Plan: Ceftriaxone/Azithromycin day 3. Blood cultures neg. Sputum cultures if available. Influenza swab/urine pneumococcal/legionella Ag neg BP improved without fluids or pressors. Hypotensive this AM, but clinically looks improved, does not look septic. Could from diuresis and positive intrathoracic pressure from Bipap (was noted with improved BP when off Bipap) Significant diuresis with low dose lasix yesterday, CXR better. BP have improved again today, gentle trial with lasix. CXR improved. 2D echo reviewed. Cardiology consult appreciated. Continue Bipap, Fio2 decreased to 50%, monitor for now, wean off as tolerated. Femoral line placed in ED,discuss with ICU for removal. CXR suggestive of emphysematous changes, though no concerns for COPD exacerbation currently, monitor for now. ACS ruled out. LFTs WNL, abdominal ultrasound neg for concerns. Suspect pain superificial from significant coughing. ISS, diabetic diet when stabilizes Protonix Needs ICU monitoring given tenuous respiratory status, need for bipap and close hemodynamic monitoring. Total critical care time spent 35 min. PLan discussed with patient in detail, all questions answered. .
--- NOTE | 2017-10-19 14:08 | PN ---
Physical Exam: SUBJECTIVE: Patient seen and examined. Pt on bipap, breathing has improved. Pt c/o chest wall pain reproducible on exam, likely 2/2 coughing. Pt denies chest pain, sob, fever, chills. OBJECTIVE: Vital Signs Period Temp Pulse Resp BP Sys/Sutton Pulse Ox Last 24 Hr 96.6 F-98.9 F 60-80 18-24 82-112/42-68 92-99 GENERAL: The patient is awake, alert, and fully oriented, in no acute distress. LUNGS: Bibasilar rales improving. CHEST: RUQ and chest wall pain still present on palpation HEART: Regular rate and rhythm, S1, S2 without murmur, rub or gallop. ABDOMEN: Soft, nondistended, normoactive bowel sounds, no guarding. EXTREMITIES: Warm, well-perfused, no edema. PSYCH: Normal mood, normal affect. SKIN: Warm, dry, normal turgor, no rashes or lesions noted Laboratory Results - last 24 hr 10/18/17 10/18/17 10/18/17 05:20 05:33 11:40 WBC RBC Hgb Hct MCV MCH MCHC RDW Plt Count MPV Neutrophils % Lymphocytes % Monocytes % Eosinophils % Basophils % Sodium Potassium Chloride Carbon Dioxide Anion Gap BUN Creatinine Creat Clearance w eGFR POC Glucometer 182.04983 208.76883 Random Glucose Calcium Phosphorus Magnesium Iron 15 L TIBC 158 L Iron Saturation 9 L Transferrin 126 L Total Bilirubin AST ALT Alkaline Phosphatase Total Protein Albumin 10/18/17 10/18/17 10/19/17 16:30 21:45 05:10 WBC 6.2 RBC 2.65 L Hgb 8.8 L Hct 26.8 L MCV 101.3 H MCH 33.2 MCHC 32.8 RDW 14.5 Plt Count 292 MPV 9.6 Neutrophils % 74.5 Lymphocytes % 20.5 Monocytes % 4.2 Eosinophils % 0.3 D Basophils % 0.5 Sodium Potassium Chloride Carbon Dioxide Anion Gap BUN Creatinine Creat Clearance w eGFR POC Glucometer 155.25141 189.07585 Random Glucose Calcium Phosphorus Magnesium Iron TIBC Iron Saturation Transferrin Total Bilirubin AST ALT Alkaline Phosphatase Total Protein Albumin 10/19/17 10/19/17 10/19/17 05:10 06:05 11:03 WBC RBC Hgb Hct MCV MCH MCHC RDW Plt Count MPV Neutrophils % Lymphocytes % Monocytes % Eosinophils % Basophils % Sodium 144 Potassium 4.1 Chloride 110 H Carbon Dioxide 27 D Anion Gap 7 L BUN 24 H D Creatinine 1.0 Creat Clearance w eGFR > 60 POC Glucometer 175.54263 229.32255 Random Glucose 157 H Calcium 8.3 L Phosphorus 2.7 Magnesium 2.2 D Iron TIBC Iron Saturation Transferrin Total Bilirubin 0.4 D AST 19 D ALT 13 D Alkaline Phosphatase 67 Total Protein 7.1 Albumin 2.4 L Active Medications Generic Name Dose Route Start Last Admin Trade Name Ivan PRN Reason Stop Dose Admin Chlorhexidine Gluconate 1 applic 10/17/17 22:00 10/18/17 22:24 Hibiclens For Decolonization - TP 1 applic HS [facility] Administration Heparin Sodium (Porcine) 5,000 unit 10/17/17 22:00 10/19/17 05:55 Heparin - SQ 5,000 unit TID [facility]ONAL Administration Azithromycin 500 mg/ Dextrose 250 mls @ 250 mls/hr 10/17/17 15:30 10/19/17 09 :47 IVPB 250 mls/hr DAILY [facility] Administration CEFTRIAXONE 1 G/50 ML PREMIX 50 mls @ 100 mls/hr 10/18/17 10:00 10/19/17 12: 02 Ceftriaxone 1 Gm-D5w Bag IVPB 100 mls/hr DAILY [facility] Administration Insulin Aspart 1 vial 10/17/17 16:30 10/19/17 12:03 Novolog Vial Sliding Scale - SQ 2 units ACHS [facility] Administration Protocol Mupirocin 1 applic 10/17/17 22:00 10/19/17 09:48 Bactroban Ointment (For Decolonization) - NS 10/22/17 21:59 1 applic BID SONAL Administration Nicotine 7 mg 10/19/17 12:45 Nicoderm Patch - TD DAILY [facility]ON[facility] IMAGIN10/18/17 Ab US -> no US evidence of acute cholecystitis. 10/19/17 CXR -> diffuse airspace changes have diminished slightly. Findings suggestive of possible ARDS. ASSESSMENT/PLAN: 62M with PMH of NIDDM, PUD, BPH, presents with respiratory failure, admitted to ICU for severe sepsis 2/2 CAP. # septic shock likely 2/2 CAP - off pressors - Day 3 of IV Azithromycin and IV Ceftriaxone - blood cultures (-) x 48 hrs - urine culture (-) - bipap to assist in work of breathing -> will place on high flow oxygen therapy - low dose lasix given today - Cardiology (Dr. Dunlap) recs appreciated: BP is low but pt is asymptomatic. If BP improves and can tolerate low dose lasix can be given. BP improved without fluids or pressors. # RUQ pain - likely musculoskeletal pain 2/2 coughing - Ab US results as above # MIRLANDE - resolved - avoid nephrotoxic agents - monitor UOP and Cr # macrocytic anemia - stable - continue to monitor # NIDDM - BGMs - Novolog SSI # BPH - continue home med of Flomax # FEN - Fluids: held for now by ICU team - Electrolytes: wnl, continue to monitor - Nutrition: diabetic diet # Prophylaxis - DVT ppx with Heparin TID Visit type - Emergency Visit Emergency Visit: Yes ED Registration Date: 10/17/17 Care time: The patient presented to the Emergency Department on the above date and was hospitalized for further evaluation of their emergent condition. - New Patient This patient is new to me today: No - Critical Care Critical Care patient: Yes Total Critical Care Time (in minutes): 40 Critical Care Statement: The care of this patient involved high complexity decision making to prevent further life threatening deterioration of the patient 's condition and/or to evaluate & treat vital organ system(s) failure or risk of failure.
[2017-10-19] MEDS: NICOTINE 7 MG/24 HOURS TOPICAL PATCH TD SCH (16:35)
[2017-10-19] MEDS: ACETAMINOPHEN 325 MG TABLET (FP) PO PRN (22:00)
[2017-10-19] MEDS: CHLORHEXIDINE GLUCONATE 4% CLEANSER FOR DECOLONIZATION TP SCH (22:43)
[2017-10-20] MEDS: HEPARIN NA (PORCINE) 5,000 UNITS/ML 1ML VIAL SQ SCH (05:03)
[2017-10-20] MEDS: INSULIN SLIDING SCALE (NOVOLOG) 1 VIAL SQ SCH ×4 (06:17→21:22)
[2017-10-20 07:01] LABS: HEMATOCRIT 27.1 % (35.4-49); HEMOGLOBIN 9.1 GM/dL (11.7-16.9); MCH 34.1 pg (25.7-33.7); MCHC 33.7 g/dl (32.0-35.9); MEAN CELL VOLUME 101.2 fl (80-96); MEAN PLT VOLUME 9.4 fl (7.5-11.1); PLATELET COUNT 149 K/MM3 (134-434); RBC 2.67 M/mm3 (4.00-5.60); RDW 14.6 % (11.9-15.9); WHITE BLOOD COUNT 8.2 K/mm3 (4.0-10.0)
[2017-10-20 07:03] LABS: ALBUMIN 2.9 g/dl (3.4-5.0); BLOOD UREA NITROGEN 39 mg/dL (7-18); CALCIUM 8.7 mg/dL (8.5-10.1); CHLORIDE 103 mmol/L (98-107); GLUCOSE,RANDOM 166 mg/dL (74-106); POTASSIUM 3.9 mmol/L (3.5-5.1); SODIUM 141 mmol/L (136-145)
[2017-10-20 07:08] LABS: ALK PHOS 86 U/L (45-117); ANION GAP 12 (8-16); BILIRUBIN,TOTAL 0.6 mg/dL (0.2-1.0); CO2 26 mmol/L (21-32); CREATININE 1.5 mg/dL (0.7-1.3); MAGNESIUM 2.3 mg/dL (1.8-2.4); PHOSPHOROUS 3.7 mg/dL (2.5-4.9); SGOT/AST 22 U/L (15-37); SGPT/ALT 16 U/L (12-78); TOT PROT 8.7 g/dl (6.4-8.2)
[2017-10-20 07:20] LABS: INR 1.92 (0.82-1.09); PROTHROMBIN TIME (PATIENT) 21.7 SEC (9.98-11.88)
[2017-10-20 07:22] LABS: ACTIVATED PTT 32.9 SECONDS (26.9-34.4)
--- NOTE | 2017-10-20 08:29 | PN ---
Physical Exam: SUBJECTIVE: Patient apparently desat'd on HFNC last night so they replaced the Bipap OBJECTIVE: Vital Signs Period Temp Pulse Resp BP Sys/Sutton Pulse Ox Last 24 Hr 97.9 F-99.2 F 59-84 16-26 98-133/53-96 90-97 GENERAL: The patient is awake, alert, and fully oriented, in no acute distress. HEAD: Normal with no signs of trauma. EYES: PERRL, extraocular movements intact, sclera anicteric, conjunctiva clear. No ptosis. ENT: Ears normal. Bipap mask on. NECK: Trachea midline, full range of motion, supple. LUNGS: Coarse bilateral lower lung field crackles, slight accessory muscle usage , turned down FiO2 from 70% to 60% HEART: + JVD.Regular rate and rhythm, S1, S2 without murmur, rub or gallop. ABDOMEN: Soft, nontender, nondistended, normoactive bowel sounds, no guarding, no rebound, no hepatosplenomegaly, no masses. EXTREMITIES: 2+ pulses, warm, well-perfused, no edema. NEUROLOGICAL: No obvious focal deficit PSYCH: Normal mood, normal affect. SKIN: Warm, dry, normal turgor, no rashes or lesions noted Laboratory Results - last 24 hr 10/18/17 10/18/17 10/18/17 05:33 11:40 16:30 WBC RBC Hgb Hct MCV MCH MCHC RDW Plt Count MPV PT with INR INR PTT (Actin FS) Sodium Potassium Chloride Carbon Dioxide Anion Gap BUN Creatinine Creat Clearance w eGFR POC Glucometer 182.61401 208.58234 [phone] Random Glucose Calcium Phosphorus Magnesium Total Bilirubin AST ALT Alkaline Phosphatase Total Protein Albumin 10/18/17 10/19/17 10/19/17 21:45 06:05 11:03 WBC RBC Hgb Hct MCV MCH MCHC RDW Plt Count MPV PT with INR INR PTT (Actin FS) Sodium Potassium Chloride Carbon Dioxide Anion Gap BUN Creatinine Creat Clearance w eGFR POC Glucometer 189.02989 175.29766 [phone] Random Glucose Calcium Phosphorus Magnesium Total Bilirubin AST ALT Alkaline Phosphatase Total Protein Albumin 10/19/17 10/19/17 10/20/17 17:34 22:41 05:54 WBC RBC Hgb Hct MCV MCH MCHC RDW Plt Count MPV PT with INR INR PTT (Actin FS) Sodium Potassium Chloride Carbon Dioxide Anion Gap BUN Creatinine Creat Clearance w eGFR POC Glucometer 206.85555 193.77187 [phone] Random Glucose Calcium Phosphorus Magnesium Total Bilirubin AST ALT Alkaline Phosphatase Total Protein Albumin 10/20/17 10/20/17 10/20/17 06:10 06:10 06:10 WBC 8.2 D RBC 2.67 L Hgb 9.1 L Hct 27.1 L MCV 101.2 H MCH 34.1 H MCHC 33.7 RDW 14.6 Plt Count 149 D MPV 9.4 PT with INR 21.70 H INR 1.92 H D PTT (Actin FS) 32.9 Sodium 141 Potassium 3.9 Chloride 103 Carbon Dioxide 26 Anion Gap 12 BUN 39 H D Creatinine 1.5 H D Creat Clearance w eGFR 47.27 POC Glucometer Random Glucose 166 H Calcium 8.7 Phosphorus 3.7 D Magnesium 2.3 Total Bilirubin 0.6 D AST 22 ALT 16 D Alkaline Phosphatase 86 D Total Protein 8.7 H D Albumin 2.9 L D Active Medications Generic Name Dose Route Start Last Admin Trade Name Freq PRN Reason Stop Dose Admin Acetaminophen 650 mg 10/19/17 22:58 10/19/17 22:00 Tylenol - PO 650 mg Q6H PRN Administration FEVER OR PAIN Chlorhexidine Gluconate 1 applic 10/17/17 22:00 10/19/17 22:43 Hibiclens For Decolonization - TP 1 applic HS SONAL Administration Heparin Sodium (Porcine) 5,000 unit 10/17/17 22:00 10/20/17 05:03 Heparin - SQ 5,000 unit TID SONAL Administration Azithromycin 500 mg/ Dextrose 250 mls @ 250 mls/hr 10/17/17 15:30 10/19/17 09 :47 IVPB 250 mls/hr DAILY SONAL Administration CEFTRIAXONE 1 G/50 ML PREMIX 50 mls @ 100 mls/hr 10/18/17 10:00 10/19/17 12: 02 Ceftriaxone 1 Gm-D5w Bag IVPB 100 mls/hr DAILY SONAL Administration Insulin Aspart 1 vial 10/17/17 16:30 10/20/17 06:17 Novolog Vial Sliding Scale - SQ Not Given ACHS [facility] Protocol Mupirocin 1 applic 10/17/17 22:00 10/19/17 22:43 Bactroban Ointment (For Decolonization) - NS 10/22/17 21:59 1 applic BID SONAL Administration Nicotine 7 mg 10/19/17 12:45 10/19/17 16:35 Nicoderm Patch - TD 7 mg DAILY SONAL Administration ASSESSMENT/PLAN: Patient is a 62 year old male who was BIBEMS for hypoxic respiratory failure placed now in between BiPap and HFNC, eating food, off of pressers, but with RLE DVT without PE and pending IVC filter placement. Neuro: #Nicotine Dependence: - Nicotine patch 7 MG daily (1-2 cig per day smoker) CV: #Septic Shock vs. iatrogenic hypovolemic shock vs. cardiogenic shock: original presentation - Tachycardia of 105, Respiratory rate 26, Fever of 101, WBC of 11.7, Hypotension with SBP <90 with no response to IV fluids, and Lactic Acidosis of 3.6. Source unclear. - Repeat CXR istable-improved pulmonary edema (out 0.9 L yesterday) - Possibly due to use of BiPAP increasing intrathoracic pressures and decreasing preload, will switch to high flow - off pressors x 2 days - LAsix per below #DVT: U/S positive for Right calf DVT - CTA negative for PE so will place IVC filter - will start heparin drip after IVC filter placement Pulm: #Acute Hypoxic Respiratory Failure: [place] and strep negative. Zosyn and Vancomycin given in ED. Patient denies any recent hospitalization or abx use. Original chest X-ray reveals bilateral multifocal inflammatory changes (ARDS) vs. congestive heart failure. given JVD and crackles it is likely the later. Still will treat for CAP. ECHO showing mild mitral regurg, mild/mod tricuspid regurg, mild PHTN - Repeat XR improved s/p lasix but but concern for ILD or vs. ARDS - CT demonstrating diffuse interstitial lung disease with possible pneumonitis. - Per ID section - Tylenol 1000mg IVP PRN for fevers - Elevated HOB - F/U Blood cultures pending - Holding lasix - Did well on non-rebreather while in CT scanner so that was a rudimentary wean test but patient's pulse ox was reading high 80s while back in his room. Unsure if the pulse ox is completely accurate so will attempt to place an ear pulse ox but will maintain on HFNC for now. Maintain SAT >90% ID: - Consulted ID for abx management - Continue Azithromycin 500mg Daily and Ceftriaxone 1gm QD for CAP until ID input - CXR pattern could be diffuse infection such as PCP - Sent HIV Renal: #Acute Kidney Injury: Was resolved but then re-elevated after lasix x 2 days -Likely iatrogenic lasix - Given IV con for CTA - Hydrate 250 bolus post up from IVC filter placement and continue on 75 mL/hr for an entire liter. - CTM - Avoid nephrotoxic medications Heme: #Macrocytic Anemia: Hemoglobin 9.2 with MCV 101 - Ferritin 882 (likely reactive) - Will continue to trend Endo #NIDDM: -BGM -ISS : #BPH -Patient on Tamsulosin 0.4mg daily GI: #Peptic Ulcer Disease -History of mesh according to family and had Endoscopy two months -Was given medications according to patients daughter and completed course FEN -hold fluids due to pulmonary congestion -Electrolytes wnl -Diabetic diet while on HF NC PPX: -High risk. Heparin 5000 units sq Q8H -No GI required Disposition -Full code -Patient hypotensive requiring noninvasive ventilation, will continue on hfnc , and hep drip for DVT Visit type - Emergency Visit Emergency Visit: No - New Patient This patient is new to me today: No - Critical Care Critical Care patient: Yes Total Critical Care Time (in minutes): 35 Critical Care Statement: The care of this patient involved high complexity decision making to prevent further life threatening deterioration of the patient 's condition and/or to evaluate & treat vital organ system(s) failure or risk of failure. - Discharge Referral Referred to [facility] No
[2017-10-20] MEDS ORDERED: PT OWN MED DRAWER 7, Y5N ONE ×2 (09:11→16:15)
[2017-10-20] MEDS: MUPIROCIN 2% TOPICAL OINTMENT FOR DECOLONIZATION NS SCH ×2 (09:15→21:21)
[2017-10-20] MEDS: NICOTINE 7 MG/24 HOURS TOPICAL PATCH TD SCH (09:16)
[2017-10-20] MEDS: CEFTRIAXONE 1 G/50 ML PREMIX 50 ML IVPB SCH (09:16)
[2017-10-20] MEDS: AZITHROMYCIN IVPB 500 MG in DEXTROSE 5%-WATER - 250 ML IVPB SCH (10:03)
--- NOTE | 2017-10-20 10:24 | EKG ---
Test Reason : Blood Pressure : / mmHG Vent. Rate : 064 BPM Atrial Rate : 064 BPM P-R Int : 128 ms QRS Dur : 084 ms QT Int : 410 ms P-R-T Axes : 048 055 046 degrees QTc Int : 422 ms NORMAL SINUS RHYTHM VOLTAGE CRITERIA FOR LEFT VENTRICULAR HYPERTROPHY ABNORMAL ECG WHEN COMPARED WITH ECG OF 17-OCT-2017 10:04, VENT. RATE HAS DECREASED BY 35 BPM Confirmed by GRZEGORZ CARRION MD ([id number]) on 10/20/2017 10:24:00 AM Referred By: Confirmed By:GRZEGORZ CARRION MD
--- NOTE | 2017-10-20 11:29 | PN ---
Teaching Attending Note Name of Resident: Jaxson Echevarria ATTENDING PHYSICIAN STATEMENT I saw and evaluated the patient. I reviewed the resident's note and discussed the case with the resident. I agree with the resident's findings and plan as documented. SUBJECTIVE: Patient seen and examined in the ICU. Placed on NIPPV overnight and now back on HFOT. Awake and alert. Reports breathing is slightly better. CXR: Somewhat diminished bilateral diffuse interstitial infiltrates OBJECTIVE: Intake & Output 10/17/17 10/18/17 10/19/17 10/20/17 23:59 23:59 23:59 23:59 Intake Total 3650 300 450 Output Total 1225 1800 1400 Balance 2425 -1500 -950 Weight 130 lb 166 lb 1.6 oz 166 lb 1.6 oz 165 lb 1.6 oz Last Vital Signs Temp Pulse Resp BP Pulse Ox 98.2 F 80 22 126/57 97 10/20/17 06:00 10/20/17 10:00 10/20/17 10:00 10/20/17 10:00 10/20/17 10:15 Active Medications Acetaminophen (Tylenol -) 650 mg PO Q6H PRN PRN Reason: FEVER OR PAIN Last Admin: 10/19/17 22:00 Dose: 650 mg Chlorhexidine Gluconate (Hibiclens For Decolonization -) 1 applic TP HS [facility] Last Admin: 10/19/17 22:43 Dose: 1 applic Heparin Sodium (Porcine) (Heparin -) 5,000 unit SQ TID [facility] Last Admin: 10/20/17 05:03 Dose: 5,000 unit Azithromycin 500 mg/ Dextrose 250 mls @ 250 mls/hr IVPB DAILY [facility] Last Admin: 10/20/17 10:03 Dose: 250 mls/hr CEFTRIAXONE 1 G/50 ML PREMIX (Ceftriaxone 1 Gm-D5w Bag) 50 mls @ 100 mls/hr IVPB DAILY [facility] Last Admin: 10/20/17 09:16 Dose: 100 mls/hr Insulin Aspart (Novolog Vial Sliding Scale -) 1 vial SQ ACHS [facility] PRN Reason: Protocol Last Admin: 10/20/17 10:17 Dose: 2 units Mupirocin (Bactroban Ointment (For Decolonization) -) 1 applic NS BID [facility] Stop: 10/22/17 21:59 Last Admin: 10/20/17 09:15 Dose: 1 applic Nicotine (Nicoderm Patch -) 7 mg TD DAILY [facility]ONAL Last Admin: 10/20/17 09:16 Dose: 7 mg Gen: Awake and alert, Mildly tachypneic at rest on HFOT Heart: RRR Lung: Bibasilar crackles/rhonchi, slight expiratory wheeze Abd: soft, nontender Ext: Right calf edema and pain, no erythema Neuro: non-focal Laboratory Results - last 24 hr 10/19/17 10/19/17 10/19/17 11:03 17:34 22:41 WBC RBC Hgb Hct MCV MCH MCHC RDW Plt Count MPV PT with INR INR PTT (Actin FS) Sodium Potassium Chloride Carbon Dioxide Anion Gap BUN Creatinine Creat Clearance w eGFR POC Glucometer 229.62885 206.13031 [phone] Random Glucose Calcium Phosphorus Magnesium Total Bilirubin AST ALT Alkaline Phosphatase Total Protein Albumin 10/20/17 10/20/17 10/20/17 05:54 06:10 06:10 WBC 8.2 D RBC 2.67 L Hgb 9.1 L Hct 27.1 L MCV 101.2 H MCH 34.1 H MCHC 33.7 RDW 14.6 Plt Count 149 D MPV 9.4 PT with INR INR PTT (Actin FS) Sodium 141 Potassium 3.9 Chloride 103 Carbon Dioxide 26 Anion Gap 12 BUN 39 H D Creatinine 1.5 H D Creat Clearance w eGFR 47.27 POC Glucometer [phone] Random Glucose 166 H Calcium 8.7 Phosphorus 3.7 D Magnesium 2.3 Total Bilirubin 0.6 D AST 22 ALT 16 D Alkaline Phosphatase 86 D Total Protein 8.7 H D Albumin 2.9 L D 10/20/17 06:10 WBC RBC Hgb Hct MCV MCH MCHC RDW Plt Count MPV PT with INR 21.70 H INR 1.92 H D PTT (Actin FS) 32.9 Sodium Potassium Chloride Carbon Dioxide Anion Gap BUN Creatinine Creat Clearance w eGFR POC Glucometer Random Glucose Calcium Phosphorus Magnesium Total Bilirubin AST ALT Alkaline Phosphatase Total Protein Albumin Problem List - Problems (1) Acute respiratory failure with hypoxia Code(s): J96.01 - ACUTE RESPIRATORY FAILURE WITH HYPOXIA (2) Pneumonia Code(s): J18.9 - PNEUMONIA, UNSPECIFIED ORGANISM (3) Diabetes Code(s): E11.9 - TYPE 2 DIABETES MELLITUS WITHOUT COMPLICATIONS ASSESSMENT AND PLAN: Acute Hypoxic Respiratory Failure (?) ILD Pneumonia AE of COPD Sepsis Acute Diastolic Heart Failure Acute Kidney Injury Lactic Acidosis r/o CHF DM - ID evaluation - HIV screen - US the RLE - CT chest - Titrate FiO2 to keep SpO2 >90% - BD TX - Medrol - Noted Lasix ordered - monitor urine output, creatinine - PO as tolerated - continue ICU monitoring for tenuous respiratory status Dr Souza Critical care time spent in reviewing chart, evaluating patient and formulating plan 38 min
[2017-10-20] MEDS ORDERED: ENOXAPARIN NA (PORCINE) 40 MG/0.4 ML DISP.SYRIN SQ ONE (13:30)
[2017-10-20] MEDS ORDERED: SODIUM CHLORIDE 250 ML IV STA (14:36)
[2017-10-20] MEDS ORDERED: HEPARIN NA (PORCINE) 5,000 UNITS/ML 1ML VIAL IVPUSH PRN ×2 (14:36)
[2017-10-20] MEDS ORDERED: HEPARIN SOD,PORK IN 0.45% NACL 25,000 UNITS/500 ML INFUS.BAG IVPB SCH ×2 (14:45→18:00)
[2017-10-20] MEDS ORDERED: SODIUM CHLORIDE 1,000 ML IV SCH (14:45)
--- NOTE | 2017-10-20 17:00 | PN ---
Physical Exam: SUBJECTIVE: Patient seen and examined. Pt c/o Right LE pain and swelling. Pt on bipap, breathing has improved. Pt denies chest pain, sob, abdominal pain, fever, chills. OBJECTIVE: Vital Signs Period Temp Pulse Resp BP Sys/Sutton Pulse Ox Last 24 Hr 97.9 F-98.7 F 62-91 16-29 98-140/41-96 90-100 GENERAL: The patient is awake, alert, and fully oriented, in no acute distress. LUNGS: Bibasailar crackles. HEART: Regular rate and rhythm, S1, S2 without murmur, rub or gallop. ABDOMEN: Soft, nondistended, normoactive bowel sounds, no guarding. EXTREMITIES: Right LE with swelling, warmth and tenderness to palpation. PSYCH: Normal mood, normal affect. SKIN: Warm, dry, normal turgor, no rashes or lesions noted Laboratory Results - last 24 hr 10/17/17 10/19/17 10/19/17 16:40 17:34 22:41 WBC RBC Hgb Hct MCV MCH MCHC RDW Plt Count MPV PT with INR INR PTT (Actin FS) Sodium Potassium Chloride Carbon Dioxide Anion Gap BUN Creatinine Creat Clearance w eGFR POC Glucometer 206.29640 [phone] Random Glucose Calcium Phosphorus Magnesium Total Bilirubin AST ALT Alkaline Phosphatase Total Protein Albumin HIV 1&2 Antibody Screen HIV P24 Antigen M.pneumoniae IgM Titer <770 10/20/17 10/20/17 10/20/17 05:54 06:10 06:10 WBC 8.2 D RBC 2.67 L Hgb 9.1 L Hct 27.1 L MCV 101.2 H MCH 34.1 H MCHC 33.7 RDW 14.6 Plt Count 149 D MPV 9.4 PT with INR INR PTT (Actin FS) Sodium 141 Potassium 3.9 Chloride 103 Carbon Dioxide 26 Anion Gap 12 BUN 39 H D Creatinine 1.5 H D Creat Clearance w eGFR 47.27 POC Glucometer [phone] Random Glucose 166 H Calcium 8.7 Phosphorus 3.7 D Magnesium 2.3 Total Bilirubin 0.6 D AST 22 ALT 16 D Alkaline Phosphatase 86 D Total Protein 8.7 H D Albumin 2.9 L D HIV 1&2 Antibody Screen HIV P24 Antigen M.pneumoniae IgM Titer 10/20/17 10/20/17 06:10 13:02 WBC RBC Hgb Hct MCV MCH MCHC RDW Plt Count MPV PT with INR 21.70 H INR 1.92 H D PTT (Actin FS) 32.9 Sodium Potassium Chloride Carbon Dioxide Anion Gap BUN Creatinine Creat Clearance w eGFR POC Glucometer Random Glucose Calcium Phosphorus Magnesium Total Bilirubin AST ALT Alkaline Phosphatase Total Protein Albumin HIV 1&2 Antibody Screen Negative HIV P24 Antigen Negative M.pneumoniae IgM Titer Active Medications Generic Name Dose Route Start Last Admin Trade Name Freq PRN Reason Stop Dose Admin Acetaminophen 650 mg 10/19/17 22:58 10/19/17 22:00 Tylenol - PO 650 mg Q6H PRN Administration FEVER OR PAIN Albuterol/Ipratropium 1 amp 10/20/17 14:59 Duoneb - NEB Q6H PRN SHORTNESS OF BREATH Chlorhexidine Gluconate 1 applic 10/17/17 22:00 10/19/17 22:43 Hibiclens For Decolonization - TP 1 applic HS SONAL Administration Heparin Sodium (Porcine) 1,000 unit 10/20/17 14:36 Heparin - IVPUSH PRN PRN Heparin Heparin Sodium (Porcine) 5,000 unit 10/20/17 14:36 Heparin - IVPUSH PRN PRN Heparin Azithromycin 500 mg/ Dextrose 250 mls @ 250 mls/hr 10/17/17 15:30 10/20/17 10 :03 IVPB 250 mls/hr DAILY SONAL Administration CEFTRIAXONE 1 G/50 ML PREMIX 50 mls @ 100 mls/hr 10/18/17 10:00 10/20/17 09: 16 Ceftriaxone 1 Gm-D5w Bag IVPB 100 mls/hr DAILY SONAL Administration HEPARIN SOD,PORK IN 0.45% NACL 25,000 units in 500 mls @ 20 mls/hr 10/20/17 14 :45 Heparin-1/2ns 25,000 Units/500 IVPB TITR [facility]ON[facility] Protocol 1,000 UNITS/HR Sodium Chloride 1,000 mls @ 75 mls/hr 10/20/17 14:45 Normal Saline - IV 10/21/17 04:04 ASDIR SONAL Insulin Aspart 1 vial 10/17/17 16:30 10/20/17 10:17 Novolog Vial Sliding Scale - SQ 2 units ACHS [facility]ON[facility] Administration Protocol Methylprednisolone Sodium Succinate 40 mg 10/20/17 18:00 Solu-Medrol - IVPUSH Q8H-IV SONAL Mupirocin 1 applic 10/17/17 22:00 10/20/17 09:15 Bactroban Ointment (For Decolonization) - NS 10/22/17 21:59 1 applic BID SONAL Administration Nicotine 7 mg 10/19/17 12:45 10/20/17 09:16 Nicoderm Patch - TD 7 mg DAILY SONAL Administration IMAGIN10/20/17 CXR -> increased airspace opacification diffusely 10/20/17 Right LE Duplex -> extensive DVT within the common, deep, and superifical femoral veins, as well as popliteal and posterior tibial veins. The greater saphenous vein is patent, but the lesser saphenous vein is also thrombosed. 10/20/17 CTA -> no PE. Diffuse pamela nonspecific groundglass interstitial thickening - Ddx: acute pneumonitis vs chronic intersitital lung disease. Nonspecific mediastinal and pamela hilar lymphadenopathy. ASSESSMENT/PLAN: 62M with PMH of NIDDM, PUD, BPH, presents with respiratory failure, admitted to ICU for severe sepsis 2/2 CAP. # extensive DVT - Heparin SQ changed to Heparin drip - Heme Consult - CTA (-) for PE # septic shock likely 2/2 CAP - off pressors - Day 4 of IV Azithromycin and IV Ceftriaxone - blood cultures (-) x 72 hrs - bipap to assist in work of breathing - Duoneb and Solu-medrol added # MIRLANDE - avoid nephrotoxic agents - monitor UOP and Cr # macrocytic anemia - stable - continue to monitor # NIDDM - BGMs - Novolog SSI # BPH - continue home med of Flomax # FEN - Fluids: NS @ 75 ml/hr - Electrolytes: wnl, continue to monitor - Nutrition: diabetic diet Visit type - Emergency Visit Emergency Visit: Yes ED Registration Date: 10/17/17 Care time: The patient presented to the Emergency Department on the above date and was hospitalized for further evaluation of their emergent condition. - New Patient This patient is new to me today: No - Critical Care Critical Care patient: Yes Total Critical Care Time (in minutes): 45 Critical Care Statement: The care of this patient involved high complexity decision making to prevent further life threatening deterioration of the patient 's condition and/or to evaluate & treat vital organ system(s) failure or risk of failure.
--- NOTE | 2017-10-20 17:13 | PN ---
Progress Note (short form) - Note Progress Note: Patient has been started on heparin drip for DVT protocol With goal PTT of 60-80 60-80mg/kg body weight bolus to be maintained at 18mls/hr D/W pharmacy, since the protocol cannot be
--- NOTE | 2017-10-20 17:21 | PN ---
Progress Note, Physician Chief Complaint: Desated overnight but feeling better at this moment +LE DVT CT scan ILD possible pneumonitis History of Present Illness: 62 year old male with a pmhx of dm and tobacco use who presents with sob and cough. Patient was c/o intermittent cough which became constant along with sob over the last 3 days or so. No pnd, orthopnea, or edema. No chest pain or palpitations. WBC elevated 11s. Cr 1.5 now 1.1 Febrile in ER CXR with congestion with infiltrates BNP 4000 - Current Medication List Current Medications: Active Medications Acetaminophen (Tylenol -) 650 mg PO Q6H PRN PRN Reason: FEVER OR PAIN Last Admin: 10/19/17 22:00 Dose: 650 mg Albuterol/Ipratropium (Duoneb -) 1 amp NEB Q6H PRN PRN Reason: SHORTNESS OF BREATH Chlorhexidine Gluconate (Hibiclens For Decolonization -) 1 applic TP HS [facility] Last Admin: 10/19/17 22:43 Dose: 1 applic Heparin Sodium (Porcine) (Heparin -) 1,000 unit IVPUSH PRN PRN PRN Reason: Heparin Heparin Sodium (Porcine) (Heparin -) 5,000 unit IVPUSH PRN PRN PRN Reason: Heparin Azithromycin 500 mg/ Dextrose 250 mls @ 250 mls/hr IVPB DAILY [facility] Last Admin: 10/20/17 10:03 Dose: 250 mls/hr CEFTRIAXONE 1 G/50 ML PREMIX (Ceftriaxone 1 Gm-D5w Bag) 50 mls @ 100 mls/hr IVPB DAILY [facility] Last Admin: 10/20/17 09:16 Dose: 100 mls/hr HEPARIN SOD,PORK IN 0.45% NACL (Heparin-1/2ns 25,000 Units/500) 25,000 units in 500 mls @ 20 mls/hr IVPB TITR SONAL; 1,000 UNITS/HR PRN Reason: Protocol Sodium Chloride (Normal Saline -) 1,000 mls @ 75 mls/hr IV ASDIR [facility] Stop: 10/21/17 04:04 Insulin Aspart (Novolog Vial Sliding Scale -) 1 vial SQ ACHS [facility] PRN Reason: Protocol Last Admin: 10/20/17 10:17 Dose: 2 units Methylprednisolone Sodium Succinate (Solu-Medrol -) 40 mg IVPUSH Q8H-IV [facility] Mupirocin (Bactroban Ointment (For Decolonization) -) 1 applic NS BID [facility] Stop: 10/22/17 21:59 Last Admin: 10/20/17 09:15 Dose: 1 applic Nicotine (Nicoderm Patch -) 7 mg TD DAILY [facility] Last Admin: 10/20/17 09:16 Dose: 7 mg - Objective Vital Signs: Vital Signs Temperature 98.7 F 10/20/17 14:00 Pulse Rate 79 10/20/17 16:26 Respiratory Rate 22 10/20/17 16:26 Blood Pressure 110/46 10/20/17 16:26 O2 Sat by Pulse Oximetry (%) 100 10/20/17 16:26 Constitutional: Yes: No Distress Neck: Yes: Supple Cardiovascular: Yes: Regular Rate and Rhythm, S1, S2. No: Murmur Respiratory: Yes: Rales Gastrointestinal: Yes: Soft Edema: RLE: 1+ Labs: CBC, BMP 10/20/17 06:10 10/20/17 06:10 INR, PTT INR 1.92 (0.82-1.09) H D 10/20/17 06:10 Assessment/Plan 62 year old male with a pmhx of dm and tobacco use who presents with sob and cough. Patient was c/o intermittent cough which became constant along with sob over the last 3 days or so. No pnd, orthopnea, or edema. No chest pain or palpitations. WBC elevated 11s. Cr 1.5 now 1.1 Febrile in ER CXR with congestion with infiltrates BNP 4000 1) SOB likely multifactorial CT scan now shows ILD with possible pneumonitits Furosemide on hold Being treated with Ceftriaxone/Azithro and steroids Vitals stable Continue telemetry, CE's negative and no acute ischemic changes on ekg.
--- NOTE | 2017-10-20 17:23 | PN ---
Progress Note (short form) - Note Progress Note: ID Consult dictated Bilateral interstitial lung disease/ pneumonitis in HIV (-) pt ? etiology ? occupational/ environmental ? hypersensitivity pneumonitis ? sarcoid ? connective tissue disease (RA, scleroderma) ? infectious (viral e.g influenza, RSV, CMV; fungal e.g. cryptococcus, coccidiomycosis,histo, aspergillus, PCP; AFB disease e.g MTB, atpical mycobacterial) ? neoplastic Acute exacerbation COPD/ Bronchiectasis Respiratory failure Sepsis/ Septic shock improved Lactic acidosis MIRLANDE DM Obtain serologies Continue empiric zithromax/ ceftriaxone, steroids/ bronchodilators May need diagnostic bronchoscopy or open lung biopsy
--- NOTE | 2017-10-20 17:35 | PN ---
Teaching Attending Note Name of Resident: Mimi Pizarro ATTENDING PHYSICIAN STATEMENT Time of evaluation: 9:20 Am I saw and evaluated the patient. I reviewed the resident's note and discussed the case with the resident. I agree with the resident's findings and plan as documented. SUBJECTIVE: Patient seen and examined. Breathing improved. Today with right leg pain, swelling and redness. No nausea, vomiting, abdominal pain, diarrhea or other concerns. OBJECTIVE: Vital Signs Period Temp Pulse Resp BP Sys/Sutton Pulse Ox Last 24 Hr 97.9 F-98.7 F 62-91 16-29 98-140/41-96 94-100 Intake & Output 10/17/17 10/18/17 10/19/17 10/20/17 23:59 23:59 23:59 23:59 Intake Total 3650 300 450 Output Total 1225 1800 1400 Balance 2425 -1500 -950 Weight 130 lb 166 lb 1.6 oz 166 lb 1.6 oz 165 lb 1.6 oz General: lying in bed on Bipap, in no acute distress CVS;S1s2 regular Chest:bibasilar rales, no wheezing abdomen: soft, NT, ND, positive bowel sounds extremities: RLE swelling/redness/erythema, pos calf tenderness, positive pulses. Home Medication List Medication Instructions Recorded Confirmed Type Glipizide [Glucotrol Xl] 0 mg PO ASDIR 10/17/17 10/17/17 History Metformin HCl 0 mg PO ASDIR 10/17/17 10/17/17 History Tamsulosin HCl 0.4 mg PO DAILY 10/17/17 10/17/17 History Active Medications Generic Name Dose Route Start Last Admin Trade Name Ivan PRN Reason Stop Dose Admin Acetaminophen 650 mg 10/19/17 22:58 10/19/17 22:00 Tylenol - PO 650 mg Q6H PRN Administration FEVER OR PAIN Acetaminophen 1,000 mg 10/20/17 17:45 Ofirmev Injection - IVPB 10/20/17 17:46 ONCE ONE Albuterol/Ipratropium 1 amp 10/20/17 14:59 Duoneb - NEB Q6H PRN SHORTNESS OF BREATH Chlorhexidine Gluconate 1 applic 10/17/17 22:00 10/19/17 22:43 Hibiclens For Decolonization - TP 1 applic HS SONAL Administration Heparin Sodium (Porcine) 1,000 unit 10/20/17 14:36 Heparin - IVPUSH PRN PRN Heparin Heparin Sodium (Porcine) 5,000 unit 10/20/17 14:36 Heparin - IVPUSH PRN PRN Heparin Azithromycin 500 mg/ Dextrose 250 mls @ 250 mls/hr 10/17/17 15:30 10/20/17 10 :03 IVPB 250 mls/hr DAILY SONAL Administration CEFTRIAXONE 1 G/50 ML PREMIX 50 mls @ 100 mls/hr 10/18/17 10:00 10/20/17 09: 16 Ceftriaxone 1 Gm-D5w Bag IVPB 100 mls/hr DAILY SONAL Administration HEPARIN SOD,PORK IN 0.45% NACL 25,000 units in 500 mls @ 20 mls/hr 10/20/17 14 :45 Heparin-1/2ns 25,000 Units/500 IVPB TITR SONAL Protocol 1,000 UNITS/HR Sodium Chloride 1,000 mls @ 75 mls/hr 10/20/17 14:45 10/20/17 17:24 Normal Saline - IV 10/21/17 04:04 75 mls/hr ASDIR SONAL Administration Insulin Aspart 1 vial 10/17/17 16:30 10/20/17 10:17 Novolog Vial Sliding Scale - SQ 2 units ACHS SONAL Administration Protocol Methylprednisolone Sodium Succinate 40 mg 10/20/17 18:00 Solu-Medrol - IVPUSH Q8H-IV SONAL Mupirocin 1 applic 10/17/17 22:00 10/20/17 09:15 Bactroban Ointment (For Decolonization) - NS 10/22/17 21:59 1 applic BID SONAL Administration Nicotine 7 mg 10/19/17 12:45 10/20/17 09:16 Nicoderm Patch - TD 7 mg DAILY SONAL Administration Laboratory Results - last 24 hr 10/17/17 10/19/17 10/19/17 16:40 17:34 22:41 WBC RBC Hgb Hct MCV MCH MCHC RDW Plt Count MPV PT with INR INR PTT (Actin FS) Sodium Potassium Chloride Carbon Dioxide Anion Gap BUN Creatinine Creat Clearance w eGFR POC Glucometer [phone] Random Glucose Calcium Phosphorus Magnesium Total Bilirubin AST ALT Alkaline Phosphatase Total Protein Albumin HIV 1&2 Antibody Screen HIV P24 Antigen M.pneumoniae IgM Titer <770 10/20/17 10/20/17 10/20/17 05:54 06:10 06:10 WBC 8.2 D RBC 2.67 L Hgb 9.1 L Hct 27.1 L MCV 101.2 H MCH 34.1 H MCHC 33.7 RDW 14.6 Plt Count 149 D MPV 9.4 PT with INR INR PTT (Actin FS) Sodium 141 Potassium 3.9 Chloride 103 Carbon Dioxide 26 Anion Gap 12 BUN 39 H D Creatinine 1.5 H D Creat Clearance w eGFR 47.27 POC Glucometer [phone] Random Glucose 166 H Calcium 8.7 Phosphorus 3.7 D Magnesium 2.3 Total Bilirubin 0.6 D AST 22 ALT 16 D Alkaline Phosphatase 86 D Total Protein 8.7 H D Albumin 2.9 L D HIV 1&2 Antibody Screen HIV P24 Antigen M.pneumoniae IgM Titer 10/20/17 10/20/17 06:10 13:02 WBC RBC Hgb Hct MCV MCH MCHC RDW Plt Count MPV PT with INR 21.70 H INR 1.92 H D PTT (Actin FS) 32.9 Sodium Potassium Chloride Carbon Dioxide Anion Gap BUN Creatinine Creat Clearance w eGFR POC Glucometer Random Glucose Calcium Phosphorus Magnesium Total Bilirubin AST ALT Alkaline Phosphatase Total Protein Albumin HIV 1&2 Antibody Screen Negative HIV P24 Antigen Negative M.pneumoniae IgM Titer Microbiology 10/19/17 19:30 Sputum - Expectorated Gram Stain - Final 10/17/17 10:10 Blood - Peripheral Venous Blood Culture - Preliminary NO GROWTH OBTAINED AFTER 72 HOURS, INCUBATION TO CONTINUE FOR 2 DAYS. 10/17/17 10:10 Blood - Peripheral Venous Blood Culture - Preliminary NO GROWTH OBTAINED AFTER 72 HOURS, INCUBATION TO CONTINUE FOR 2 DAYS. 10/17/17 13:57 Urine - Urine Clean Catch Urine Culture - Final NO GROWTH OBTAINED 10/17/17 13:57 Urine For Antigen Detection Legionella Antigen - Final 10/17/17 13:57 Urine For Antigen Detection Streptococcus pneumoniae Antigen (M - Final 10/17/17 10:25 Nasopharyngeal Swab Influenza Types A,B Antigen (CHUY) - Final 10/17/17 10:25 Nasopharyngeal Swab - Final RLE doppler -extensive DVT right common/superficial/deep femoral vein, popliteal and posterior tibial vein ASSESSMENT AND PLAN: 62 yom active smoker, pMHx of NIDDM, PUD, BPH admitted with acute hypoxic respiratory failure, Septic shock, suspected CHF. -Acute hypoxic respiratory failure, suspect from ?ILD with pneumonitis -Extensive RLE Acute DVT - ?Mild Acute diastolic heart failure -Sepsis, likely from PNA -Lactic acidosis, from sepsis vs increased work of breathing -?MIRLANDE from sepsis -Thrombocytopenia -Elevated INR -Chest wall and right sided abdominal pain -NIDDM -PUD -BPH Plan: Ceftriaxone/Azithromycin day 4. Blood cultures neg. Sputum cultures if available. Influenza swab/urine pneumococcal/legionella Ag neg BP improved without fluids or pressors. ID input appreciated. CTA chest noted, ?ILD with pneumonitis. Placed on solumedrol. Continue Bipap for now Trial with gentle diuresis earlier, hold off more lasix for now. cardiology input noted. 2D echo reivewed. Placed on heparin drip by ICU, and IVC filter. Thrombocytopenia, elevated INR. hematology consulted, case discussed with Dr. Whipple, will follow up recs. Femoral line placed in ED, removed 10/19. ACS ruled out. LFTs WNL, abdominal ultrasound neg for concerns. Suspect pain superificial from significant coughing. ISS, diabetic diet when stabilizes Protonix Needs ICU monitoring given tenuous respiratory status, need for bipap and close hemodynamic monitoring now with acute DVT and concerns for ILD with pneumonitis. Total critical care time spent 35 min.
[2017-10-20] MEDS: methylPREDNISolone NA SUCC 40 MG/1 ML VIAL IVPUSH SCH (17:36)
[2017-10-20] MEDS: ALBUTEROL SO4 2.5/IPRATROPIUM 0.5 INH SOL 3 ML VIAL.NEB. NEB PRN (17:38)
[2017-10-20] MEDS ORDERED: ACETAMINOPHEN 1000 MG/100 ML VIAL (NON FORMULARY) IVPB ONE (17:45)
[2017-10-20] MEDS: HEPARIN SOD,PORK IN 0.45% NACL 25,000 UNITS/500 ML INFUS.BAG IVPB SCH (18:05)
[2017-10-20] MEDS: HEPARIN NA (PORCINE) 5,000 UNITS/ML 1ML VIAL IVPUSH PRN (18:13)
--- NOTE | 2017-10-20 20:09 | CONS ---
INFECTIOUS DISEASE CONSULTATION DATE OF CONSULTATION: DATE OF DICTATION: 10/20/2017 REASON FOR CONSULTATION: The patient is a 62-year-old male who is evaluated for bilateral interstitial pneumonitis. HISTORY OF PRESENT ILLNESS: He was admitted to the hospital on October 17, 2017, with a several-day history of sore throat and cough. The cough was initially described as dry and later became productive of yellowish-brownish sputum. The family became concerned when he became increasingly short of breath, pale, ataxic, and dizzy. He was brought to the emergency room where he was noted to have an O2 saturation of 55%. His course was complicated by fever, tachycardia, tachypnea, and hypotension. He required IV fluids and pressors. He was placed on BiPAP. He was admitted to the intensive care unit. He was empirically treated with Zithromax and ceftriaxone. A chest x-ray showed bilateral infiltrates. CAT scan done today shows bilateral interstitial pneumonitis with ground glass appearance, bullous lesions, and bronchiectasis. His course has been further complicated by DVT of the right lower extremity. He is awake and responsive. He is short of breath at rest. He is noted to have dry cough. He denies any ill contacts. No recent hospitalizations or antibiotic therapy. He is originally from [place]. He has been living in [place] for the past 20 years or so. He is a smoker, continues to smoke. He denies risk factors for HIV. His rapid HIV test here is negative. He worked as a front line leader. Denies history of occupational lung disease. No rheumatologic complaints. PAST MEDICAL HISTORY: Positive for ili-[id number]-sydgmbgnj diabetes mellitus, peptic ulcer disease, BPH. PAST SURGICAL HISTORY: Status post prostate surgery and abdominal mesh (? ventral hernia repair). ALLERGIES: No known allergies. MEDICATIONS: Include Glucotrol, metformin, Zithromax, ceftriaxone, Tylenol, albuterol, Lasix. SOCIAL HISTORY: As per HPI. Lives at home with family members. SYSTEMS REVIEW: Neurologic: No loss of consciousness, seizure activity, or focal weakness. Cardiac: Negative chest pain or palpitations. Respiratory: As per HPI. Gastrointestinal: Negative vomiting or diarrhea. Genitourinary: Negative for urinary tract infection. LABORATORY DATA: White count on admission 11.7, presently 8.2; hematocrit 27.1, platelets 149. BUN 39, creatinine 1.5. Liver enzymes normal. CAT scan as described. PHYSICAL EXAMINATION: General: He is cachectic. He is short of breath at rest on supplemental oxygen. Vital Signs: Temperature 98.2; blood pressure 140/74; pulse 71, regular; respirations 22 per minute. HEENT: Sclerae anicteric. Temporal wasting. Oropharynx negative. Neck: Supple. Heart: Sounds S1, S2. Lungs: Bilateral rhonchi and crepitations throughout both lung james. Abdomen: Soft. No tenderness elicited. No mass, rebound, rigidity. Extremities: Positive for right lower extremity swelling and calf tenderness. IMPRESSION: 1. Bilateral interstitial lung disease/pneumonitis of unclear etiology. 2. Acute exacerbation of chronic obstructive pulmonary disease/bronchiectasis. 3. Respiratory failure. 4. Sepsis/septic shock, improved. 5. Lactic acidosis. 6. Acute kidney injury. 7. Diabetes mellitus. Differential diagnosis includes occupational/environmental interstitial lung disease, hypersensitivity pneumonitis, non-infectious causes such as sarcoid and connective tissue disease. Infectious considerations include viral pneumonitis, for example influenza, respiratory syncytial virus, cytomegalovirus, fungal pneumonitis such as Cryptococcus coccidioidomycosis, histoplasmosis, aspergillus, pneumocystis carinii pneumonia (PCP), atypical mycobacterial infections, and tuberculosis also in the differential. We will obtain serologies for above, continue empiric treatment with Zithromax and ceftriaxone, corticosteroids, bronchodilators. May ultimately require a diagnostic bronchoscopy or open lung biopsy for diagnosis. GRZEGORZ RIVERA M.D. [id number]
--- NOTE | 2017-10-20 20:10 | CONS ---
ADDENDUM DATE OF CONSULTATION: DATE OF DICTATION: 10/20/2017 At the end of the dictation, if you can just please add: CRITICAL CARE TIME SPENT: 45 minutes. Brigette [id number]
--- NOTE | 2017-10-20 20:57 | CONSULT ---
Consult - text type - Consultation Consultation Note: 62yo male with h/o DM who presents with worsening shortness of breath and cough. Cough nonproductive without chest pain, wheezing. No nausea, vomitig or diarrhea. No subjective fevers or chills but febrile to 101 on presentation. Was hypoxic at presnetation with lactic acidosis/MIRLANDE/? sepsis Developed RLE swelling today s/p IVC filter - History Source History Provided By: Patient, Medical Record - Past Medical History Endocrine: Yes: Diabetes Mellitus - Smoking History Smoking history: Never smoked - Allergies Allergies/Adverse Reactions: Allergies Allergy/AdvReac Type Severity Reaction Status Date / Time No Known Allergies Allergy Verified 10/17/17 09:56 - Home Medications Home Medications: Ambulatory Orders Glipizide [Glucotrol Xl] 0 mg PO ASDIR 10/17/17 Metformin HCl 0 mg PO ASDIR 10/17/17 Tamsulosin HCl 0.4 mg PO DAILY 10/17/17 Vital Signs: Last Vital Signs Temp Pulse Resp BP Pulse Ox 98.8 F 60 25 H 108/54 98 10/20/17 21:00 10/20/17 21:00 10/20/17 21:00 10/20/17 21:00 10/20/17 19:11 Constitutional: Yes: Mild Distress (on BiPAP) Cardiovascular: Yes: Regular Rate and Rhythm Respiratory: Yes: Rales (scattered) Gastrointestinal: Yes: Normal Bowel Sounds, Soft. Neurological: Yes: Alert, Oriented Abnormal Lab Results 10/20/17 10/20/17 10/20/17 06:10 06:10 06:10 RBC 2.67 L Hgb 9.1 L Hct 27.1 L MCV 101.2 H MCH 34.1 H PT with INR 21.70 H INR 1.92 H D BUN 39 H D Creatinine 1.5 H D Random Glucose 166 H Total Protein 8.7 H D Albumin 2.9 L D Home Medication List Medication Instructions Recorded Confirmed Type Glipizide [Glucotrol Xl] 0 mg PO ASDIR 10/17/17 10/17/17 History RX: Metformin HCl 0 mg PO ASDIR 10/17/17 10/17/17 History RX: Tamsulosin HCl 0.4 mg PO DAILY 10/17/17 10/17/17 History Active Medications Generic Name Dose Route Start Last Admin Trade Name Freq PRN Reason Stop Dose Admin Acetaminophen 650 mg 10/19/17 22:58 10/19/17 22:00 Tylenol - PO 650 mg Q6H PRN Administration FEVER OR PAIN Albuterol/Ipratropium 1 amp 10/20/17 14:59 10/20/17 17:38 Duoneb - NEB 1 amp Q6H PRN Administration SHORTNESS OF BREATH Chlorhexidine Gluconate 1 applic 10/17/17 22:00 10/20/17 21:21 Hibiclens For Decolonization - TP 1 applic HS SONAL Administration Heparin Sodium (Porcine) 1,000 unit 10/20/17 17:59 Heparin - IVPUSH PRN PRN Heparin Heparin Sodium (Porcine) 5,000 unit 10/20/17 17:59 10/20/17 18:13 Heparin - IVPUSH 5,000 unit PRN PRN Administration Heparin Azithromycin 500 mg/ Dextrose 250 mls @ 250 mls/hr 10/17/17 15:30 10/20/17 10 :03 IVPB 250 mls/hr DAILY SONAL Administration CEFTRIAXONE 1 G/50 ML PREMIX 50 mls @ 100 mls/hr 10/18/17 10:00 10/20/17 09: 16 Ceftriaxone 1 Gm-D5w Bag IVPB 100 mls/hr DAILY SONAL Administration Sodium Chloride 1,000 mls @ 75 mls/hr 10/20/17 14:45 10/20/17 17:24 Normal Saline - IV 10/21/17 04:04 75 mls/hr ASDIR SONAL Administration HEPARIN SOD,PORK IN 0.45% NACL 25,000 units in 500 mls @ 20 mls/hr 10/20/17 18 :04 10/20/17 18:05 Heparin-1/2ns 25,000 Units/500 IVPB 1,000 units/hr TITR SONAL 20 mls/hr Protocol Administration 1,000 UNITS/HR Insulin Aspart 1 vial 10/17/17 16:30 10/20/17 21:22 Novolog Vial Sliding Scale - SQ Not Given ACHS [facility] Protocol Methylprednisolone Sodium Succinate 40 mg 10/20/17 18:00 10/20/17 17:36 Solu-Medrol - IVPUSH 40 mg Q8H-IV SONAL Administration Mupirocin 1 applic 10/17/17 22:00 10/20/17 21:21 Bactroban Ointment (For Decolonization) - NS 10/22/17 21:59 1 applic BID SONAL Administration Nicotine 7 mg 10/19/17 12:45 10/20/17 09:16 Nicoderm Patch - TD 7 mg DAILY SONAL Administration Assessment/Plan Acute Hypoxic Respiratory Failure (?) ILD --- ? etiology--hiv neg. --?/ atypical infection/? autoimmune/ hypersensitivity Pneumonia AE of COPD Sepsis Acute Diastolic Heart Failure Acute Kidney Injury DM Extensive RLE DVT-- Provoked. Diagnosed 3 days after admission, while on DVT prophylaxis with heparin Agree with heparin drip --80 u/kg bolus and 18u /kg/hr. ---titrate to PTT-1.5- 2.5x nl s/p ivc filter --given tenuous resp. status, poor cardiopulmonary reserve monitor for bleeding/clotting complications while on a/c---patient gives h/o hematuria mild thrombocytopenia---due to ongoing inflammatory/infectious/congestive pulmonary process time frame unlikely to be HIT monitor coagulopathy--elevated inr --due to infectious/congestive process or vit. k deficiency trila of vit. k x 2days nonspecific hilar/mediastinal adenopathy hematuria--check u/a gives h/o prostatectomy ? urology consult
[2017-10-20] MEDS: CHLORHEXIDINE GLUCONATE 4% CLEANSER FOR DECOLONIZATION TP SCH (21:21)
[2017-10-20] MEDS: ACETAMINOPHEN 325 MG TABLET (FP) PO PRN (22:30)
[2017-10-21] MEDS: methylPREDNISolone NA SUCC 40 MG/1 ML VIAL IVPUSH SCH ×3 (02:25→18:48)
[2017-10-21] MEDS: INSULIN SLIDING SCALE (NOVOLOG) 1 VIAL SQ SCH ×4 (06:09→21:08)
[2017-10-21] MEDS: ACETAMINOPHEN 325 MG TABLET (FP) PO PRN ×2 (06:15→16:13)
[2017-10-21 06:57] LABS: BASO % 0.4 % (0-2.0); HEMATOCRIT 26.3 % (35.4-49); HEMOGLOBIN 8.9 GM/dL (11.7-16.9); LYMPH % 19.2 % (8-40); MEAN CELL VOLUME 100.1 fl (80-96); MEAN PLT VOLUME 9.8 fl (7.5-11.1); MONO % 1.9 % (3.8-10.2); NEUT % 78.5 % (42.8-82.8); PLATELET COUNT 135 K/MM3 (134-434); RBC 2.63 M/mm3 (4.00-5.60); RDW 14.6 % (11.9-15.9); WHITE BLOOD COUNT 4.6 K/mm3 (4.0-10.0)
[2017-10-21 07:19] LABS: INR 1.96 (0.82-1.09); PROTHROMBIN TIME (PATIENT) 22.2 SEC (9.98-11.88)
[2017-10-21 07:57] LABS: ALBUMIN 2.4 g/dl (3.4-5.0); ANION GAP 8 (8-16); BLOOD UREA NITROGEN 45 mg/dL (7-18); CALCIUM 7.8 mg/dL (8.5-10.1); CHLORIDE 103 mmol/L (98-107); CO2 25 mmol/L (21-32); CREATININE 1.1 mg/dL (0.7-1.3); GLUCOSE,RANDOM 220 mg/dL (74-106); SGOT/AST 17 U/L (15-37); SGPT/ALT 14 U/L (12-78); SODIUM 136 mmol/L (136-145)
[2017-10-21 07:59] LABS: ALK PHOS 95 U/L (45-117); BILIRUBIN,TOTAL 0.4 mg/dL (0.2-1.0); TOT PROT 7.9 g/dl (6.4-8.2)
[2017-10-21] MEDS ORDERED: PT OWN MED DRAWER 7, Y5N ONE (09:51)
[2017-10-21] MEDS: NICOTINE 7 MG/24 HOURS TOPICAL PATCH TD SCH (10:30)
[2017-10-21] MEDS: CEFTRIAXONE 1 G/50 ML PREMIX 50 ML IVPB SCH (10:30)
[2017-10-21] MEDS: MUPIROCIN 2% TOPICAL OINTMENT FOR DECOLONIZATION NS SCH ×2 (10:30→21:08)
[2017-10-21] MEDS: AZITHROMYCIN IVPB 500 MG in DEXTROSE 5%-WATER - 250 ML IVPB SCH (10:31)
[2017-10-21] MEDS: PHYTONADIONE 10 MG/1 ML AMP SQ SCH (10:31)
--- NOTE | 2017-10-21 10:39 | PN ---
Progress Note, Physician History of Present Illness: Awake, alert Looks more comfortable today on bipap Reports cough with scant sputum production Afebrile on steroids - Current Medication List Current Medications: Active Medications Acetaminophen (Tylenol -) 650 mg PO Q6H PRN PRN Reason: FEVER OR PAIN Last Admin: 10/21/17 06:15 Dose: 650 mg Albuterol/Ipratropium (Duoneb -) 1 amp NEB Q6H PRN PRN Reason: SHORTNESS OF BREATH Last Admin: 10/20/17 17:38 Dose: 1 amp Chlorhexidine Gluconate (Hibiclens For Decolonization -) 1 applic TP HS SONAL Last Admin: 10/20/17 21:21 Dose: 1 applic Heparin Sodium (Porcine) (Heparin -) 1,000 unit IVPUSH PRN PRN PRN Reason: Heparin Heparin Sodium (Porcine) (Heparin -) 5,000 unit IVPUSH PRN PRN PRN Reason: Heparin Last Admin: 10/20/17 18:13 Dose: 5,000 unit Azithromycin 500 mg/ Dextrose 250 mls @ 250 mls/hr IVPB DAILY SONAL Last Admin: 10/20/17 10:03 Dose: 250 mls/hr CEFTRIAXONE 1 G/50 ML PREMIX (Ceftriaxone 1 Gm-D5w Bag) 50 mls @ 100 mls/hr IVPB DAILY [facility] Last Admin: 10/20/17 09:16 Dose: 100 mls/hr HEPARIN SOD,PORK IN 0.45% NACL (Heparin-1/2ns 25,000 Units/500) 25,000 units in 500 mls @ 20 mls/hr IVPB TITR SONAL; 1,000 UNITS/HR PRN Reason: Protocol Last Admin: 10/20/17 18:05 Dose: 1,000 units/hr, 20 mls/hr Insulin Aspart (Novolog Vial Sliding Scale -) 1 vial SQ ACHS SONAL PRN Reason: Protocol Last Admin: 10/21/17 06:09 Dose: 2 units Methylprednisolone Sodium Succinate (Solu-Medrol -) 40 mg IVPUSH Q8H-IV SONAL Last Admin: 10/21/17 02:25 Dose: 40 mg Mupirocin (Bactroban Ointment (For Decolonization) -) 1 applic NS BID SONAL Stop: 10/22/17 21:59 Last Admin: 10/20/17 21:21 Dose: 1 applic Nicotine (Nicoderm Patch -) 7 mg TD DAILY [facility] Last Admin: 10/20/17 09:16 Dose: 7 mg Phytonadione (Aqua Mephyton Injection -) 5 mg SQ DAILY [facility] Stop: 10/22/17 10:01 - Objective Vital Signs: Vital Signs Temperature 98.2 F 10/21/17 02:00 Pulse Rate 56 L 10/21/17 06:00 Respiratory Rate 26 H 10/21/17 06:00 Blood Pressure 111/55 10/21/17 06:00 O2 Sat by Pulse Oximetry (%) 98 10/21/17 09:36 Constitutional: Yes: No Distress, Cachectic Eyes: Yes: Conjunctiva Clear Cardiovascular: Yes: Regular Rate and Rhythm, S1, S2 Respiratory: Yes: Other (bilateral rhonchi and crepitations) Gastrointestinal: Yes: Normal Bowel Sounds, Soft. No: Tenderness Extremities: Yes: Other (R LE swelling) Edema: Yes Labs: CBC, BMP 10/21/17 05:50 10/21/17 05:50 INR, PTT INR 1.96 (0.82-1.09) H 10/21/17 05:50 Assessment/Plan Interstitial lung disease ? superimposed pneumonitis Exacerbation COPD Lactic acidosis- resolved Await cultures, serologies Continue zithromax/ ceftriaxone Steroids/ broncodilators
[2017-10-21] MEDS: HEPARIN NA (PORCINE) 5,000 UNITS/ML 1ML VIAL IVPUSH PRN ×2 (11:19→19:20)
--- NOTE | 2017-10-21 12:05 | PN ---
Progress Note (short form) - Note Progress Note: SUBJECTIVE: Patient seen and examined in the ICU. Placed on NIPPV overnight and now back on HFOT. Awake and alert. Reports breathing is slightly better. CXR: Somewhat diminished bilateral diffuse interstitial infiltrates OBJECTIVE: Intake & Output 10/17/17 10/18/17 10/19/17 10/20/17 23:59 23:59 23:59 23:59 Intake Total 3650 300 450 Output Total 1225 1800 1400 Balance 2425 -1500 -950 Weight 130 lb 166 lb 1.6 oz 166 lb 1.6 oz 165 lb 1.6 oz Last Vital Signs Temp Pulse Resp BP Pulse Ox 98.2 F 80 22 126/57 97 10/20/17 06:00 10/20/17 10:00 10/20/17 10:00 10/20/17 10:00 10/20/17 10:15 Active Medications Acetaminophen (Tylenol -) 650 mg PO Q6H PRN PRN Reason: FEVER OR PAIN Last Admin: 10/21/17 06:15 Dose: 650 mg Albuterol/Ipratropium (Duoneb -) 1 amp NEB Q6H PRN PRN Reason: SHORTNESS OF BREATH Last Admin: 10/20/17 17:38 Dose: 1 amp Chlorhexidine Gluconate (Hibiclens For Decolonization -) 1 applic TP HS SONAL Last Admin: 10/20/17 21:21 Dose: 1 applic Heparin Sodium (Porcine) (Heparin -) 1,000 unit IVPUSH PRN PRN PRN Reason: Heparin Last Admin: 10/21/17 11:19 Dose: 1,000 unit Heparin Sodium (Porcine) (Heparin -) 5,000 unit IVPUSH PRN PRN PRN Reason: Heparin Last Admin: 10/20/17 18:13 Dose: 5,000 unit Azithromycin 500 mg/ Dextrose 250 mls @ 250 mls/hr IVPB DAILY SONAL Last Admin: 10/21/17 10:31 Dose: 250 mls/hr CEFTRIAXONE 1 G/50 ML PREMIX (Ceftriaxone 1 Gm-D5w Bag) 50 mls @ 100 mls/hr IVPB DAILY [facility] Last Admin: 10/21/17 10:30 Dose: 100 mls/hr HEPARIN SOD,PORK IN 0.45% NACL (Heparin-1/2ns 25,000 Units/500) 25,000 units in 500 mls @ 20 mls/hr IVPB TITR SONAL; 1,000 UNITS/HR PRN Reason: Protocol Last Titration: 10/21/17 11:18 Dose: 1,100 units/hr, 22 mls/hr Insulin Aspart (Novolog Vial Sliding Scale -) 1 vial SQ ACHS SONAL PRN Reason: Protocol Last Admin: 10/21/17 11:29 Dose: 4 units Methylprednisolone Sodium Succinate (Solu-Medrol -) 40 mg IVPUSH Q8H-IV SONAL Last Admin: 10/21/17 10:31 Dose: 40 mg Mupirocin (Bactroban Ointment (For Decolonization) -) 1 applic NS BID SONAL Stop: 10/22/17 21:59 Last Admin: 10/21/17 10:30 Dose: 1 applic Nicotine (Nicoderm Patch -) 7 mg TD DAILY [facility]ONAL Last Admin: 10/21/17 10:30 Dose: 7 mg Phytonadione (Aqua Mephyton Injection -) 5 mg SQ DAILY SONAL Stop: 10/22/17 10:01 Last Admin: 10/21/17 10:31 Dose: 5 mg Gen: Awake and alert, Mildly tachypneic at rest on HFOT Heart: RRR Lung: Bibasilar crackles/rhonchi, slight expiratory wheeze Abd: soft, nontender Ext: Right calf edema and pain, mild erythema Neuro: non-focal exam CBCD WBC 4.6 K/mm3 (4.0-10.0) D 10/21/17 05:50 RBC 2.63 M/mm3 (4.00-5.60) L 10/21/17 05:50 Hgb 8.9 GM/dL (11.7-16.9) L 10/21/17 05:50 Hct 26.3 % (35.4-49) L 10/21/17 05:50 MCV 100.1 fl (80-96) H 10/21/17 05:50 MCHC 34.0 g/dl (32.0-35.9) 10/21/17 05:50 RDW 14.6 % (11.9-15.9) 10/21/17 05:50 Plt Count 135 K/MM3 (134-434) 10/21/17 05:50 MPV 9.8 fl (7.5-11.1) 10/21/17 05:50 CMP Sodium 136 mmol/L (136-145) 10/21/17 05:50 Potassium 4.0 mmol/L (3.5-5.1) 10/21/17 05:50 Chloride 103 mmol/L (98-107) 10/21/17 05:50 Carbon Dioxide 25 mmol/L (21-32) 10/21/17 05:50 Anion Gap 8 (8-16) 10/21/17 05:50 BUN 45 mg/dL (7-18) H 10/21/17 05:50 Creatinine 1.1 mg/dL (0.7-1.3) D 10/21/17 05:50 Creat Clearance w eGFR > 60 (>60) 10/21/17 05:50 Calcium 7.8 mg/dL (8.5-10.1) L 10/21/17 05:50 Total Bilirubin 0.4 mg/dL (0.2-1.0) D 10/21/17 05:50 AST 17 U/L (15-37) D 10/21/17 05:50 ALT 14 U/L (12-78) 10/21/17 05:50 Alkaline Phosphatase 95 U/L (45-117) 10/21/17 05:50 Total Protein 7.9 g/dl (6.4-8.2) 10/21/17 05:50 Albumin 2.4 g/dl (3.4-5.0) L 10/21/17 05:50 Problem List - Problems (1) Acute respiratory failure with hypoxia Code(s): J96.01 - ACUTE RESPIRATORY FAILURE WITH HYPOXIA (2) Pneumonia Code(s): J18.9 - PNEUMONIA, UNSPECIFIED ORGANISM (3) Diabetes Code(s): E11.9 - TYPE 2 DIABETES MELLITUS WITHOUT COMPLICATIONS ASSESSMENT AND PLAN: Acute Hypoxic Respiratory Failure (?) ILD DVT, S/p IVC Pneumonia AE of COPD Sepsis Acute Diastolic Heart Failure Acute Kidney Injury Lactic Acidosis r/o CHF DM - CAP coverage as per ID - HIV screen - US the RLE ---> DVT on Heparin gtt and s/p IVCF - CT chest with both ground glass, traction and fibrosis - Titrate FiO2 to keep SpO2 >90% - BD TX - Medrol - even to negative fluid balance - monitor urine output, creatinine - PO as tolerated - continue ICU monitoring for tenuous respiratory status
--- NOTE | 2017-10-21 13:11 | PN ---
Teaching Attending Note Name of Resident: . ATTENDING PHYSICIAN STATEMENT Time of evaluation: 8:45 AM SUBJECTIVE: Patient seen and examined. breathing improved, no nausea, vomiting or abdominal , still with leg pain. OBJECTIVE: Vital Signs Period Temp Pulse Resp BP Sys/Sutton Pulse Ox Last 24 Hr 97.3 F-99.0 F 52-93 15-29 100-142/45-72 90-100 Intake & Output 10/18/17 10/19/17 10/20/17 10/21/17 23:59 23:59 23:59 23:59 Intake Total 463 439 0057 365 Output Total 1800 2115 624 2494 Balance -1500 -950 715 -735 Weight 166 lb 1.6 oz 166 lb 1.6 oz 165 lb 1.6 oz 173 lb 9.6 oz General: sitting in bed on bipap, in no acute distress chest: crepitations and rhonchi bilaterally Extremities: unchanged RLE swelling/erythema/calf tenderness, strong palpable DP pulsees CVS:S1S2 regular Abdomen: soft, NT, ND, positive bowel sounds Home Medication List Medication Instructions Recorded Confirmed Type Glipizide [Glucotrol Xl] 0 mg PO ASDIR 10/17/17 10/17/17 History Metformin HCl 0 mg PO ASDIR 10/17/17 10/17/17 History Tamsulosin HCl 0.4 mg PO DAILY 10/17/17 10/17/17 History Active Medications Generic Name Dose Route Start Last Admin Trade Name Freq PRN Reason Stop Dose Admin Acetaminophen 650 mg 10/19/17 22:58 10/21/17 06:15 Tylenol - PO 650 mg Q6H PRN Administration FEVER OR PAIN Albuterol/Ipratropium 1 amp 10/20/17 14:59 10/20/17 17:38 Duoneb - NEB 1 amp Q6H PRN Administration SHORTNESS OF BREATH Chlorhexidine Gluconate 1 applic 10/17/17 22:00 10/20/17 21:21 Hibiclens For Decolonization - TP 1 applic HS SONAL Administration Heparin Sodium (Porcine) 1,000 unit 10/20/17 17:59 10/21/17 11:19 Heparin - IVPUSH 1,000 unit PRN PRN Administration Heparin Heparin Sodium (Porcine) 5,000 unit 10/20/17 17:59 10/20/17 18:13 Heparin - IVPUSH 5,000 unit PRN PRN Administration Heparin Azithromycin 500 mg/ Dextrose 250 mls @ 250 mls/hr 10/17/17 15:30 10/21/17 10 :31 IVPB 250 mls/hr DAILY SONAL Administration CEFTRIAXONE 1 G/50 ML PREMIX 50 mls @ 100 mls/hr 10/18/17 10:00 10/21/17 10: 30 Ceftriaxone 1 Gm-D5w Bag IVPB 100 mls/hr DAILY SONAL Administration HEPARIN SOD,PORK IN 0.45% NACL 25,000 units in 500 mls @ 20 mls/hr 10/20/17 18 :04 10/21/17 11:18 Heparin-1/2ns 25,000 Units/500 IVPB 1,100 units/hr TITR SONAL 22 mls/hr Protocol Titration 1,000 UNITS/HR Insulin Aspart 1 vial 10/17/17 16:30 10/21/17 11:29 Novolog Vial Sliding Scale - SQ 4 units ACHS SONAL Administration Protocol Methylprednisolone Sodium Succinate 40 mg 10/20/17 18:00 10/21/17 10:31 Solu-Medrol - IVPUSH 40 mg Q8H-IV SONAL Administration Mupirocin 1 applic 10/17/17 22:00 10/21/17 10:30 Bactroban Ointment (For Decolonization) - NS 10/22/17 21:59 1 applic BID SONAL Administration Nicotine 7 mg 10/19/17 12:45 10/21/17 10:30 Nicoderm Patch - TD 7 mg DAILY SONAL Administration Phytonadione 5 mg 10/21/17 10:00 10/21/17 10:31 Aqua Mephyton Injection - SQ 10/22/17 10:01 5 mg DAILY SONAL Administration Laboratory Results - last 24 hr 10/17/17 10/20/17 10/20/17 16:40 13:02 23:15 WBC RBC Hgb Hct MCV MCH MCHC RDW Plt Count MPV Neutrophils % Lymphocytes % Monocytes % Eosinophils % Basophils % PT with INR INR PTT (Actin FS) 54.0 H D Sodium Potassium Chloride Carbon Dioxide Anion Gap BUN Creatinine Creat Clearance w eGFR Random Glucose Calcium Total Bilirubin AST ALT Alkaline Phosphatase Total Protein Albumin HIV 1&2 Antibody Screen Negative HIV P24 Antigen Negative M.pneumoniae IgM Titer <770 10/21/17 10/21/17 10/21/17 05:50 05:50 05:50 WBC 4.6 D RBC 2.63 L Hgb 8.9 L Hct 26.3 L MCV 100.1 H MCH 34.0 H MCHC 34.0 RDW 14.6 Plt Count 135 MPV 9.8 Neutrophils % 78.5 Lymphocytes % 19.2 Monocytes % 1.9 L Eosinophils % 0.0 D Basophils % 0.4 PT with INR 22.20 H INR 1.96 H PTT (Actin FS) Sodium 136 Potassium 4.0 Chloride 103 Carbon Dioxide 25 Anion Gap 8 BUN 45 H Creatinine 1.1 D Creat Clearance w eGFR > 60 Random Glucose 220 H D Calcium 7.8 L Total Bilirubin 0.4 D AST 17 D ALT 14 Alkaline Phosphatase 95 Total Protein 7.9 Albumin 2.4 L HIV 1&2 Antibody Screen HIV P24 Antigen M.pneumoniae IgM Titer 10/21/17 05:50 WBC RBC Hgb Hct MCV MCH MCHC RDW Plt Count MPV Neutrophils % Lymphocytes % Monocytes % Eosinophils % Basophils % PT with INR INR PTT (Actin FS) 49.1 H Sodium Potassium Chloride Carbon Dioxide Anion Gap BUN Creatinine Creat Clearance w eGFR Random Glucose Calcium Total Bilirubin AST ALT Alkaline Phosphatase Total Protein Albumin HIV 1&2 Antibody Screen HIV P24 Antigen M.pneumoniae IgM Titer Microbiology 10/17/17 10:10 Blood - Peripheral Venous Blood Culture - Preliminary NO GROWTH OBTAINED AFTER 96 HOURS, INCUBATION TO CONTINUE FOR 1 DAYS. 10/17/17 10:10 Blood - Peripheral Venous Blood Culture - Preliminary NO GROWTH OBTAINED AFTER 96 HOURS, INCUBATION TO CONTINUE FOR 1 DAYS. 10/19/17 19:30 Sputum - Expectorated Gram Stain - Final 10/19/17 19:30 Sputum - Expectorated Sputum Culture - Preliminary NORMAL RESPIRATORY TOYIN 10/17/17 13:57 Urine - Urine Clean Catch Urine Culture - Final NO GROWTH OBTAINED 10/17/17 13:57 Urine For Antigen Detection Legionella Antigen - Final 10/17/17 13:57 Urine For Antigen Detection Streptococcus pneumoniae Antigen (M - Final 10/17/17 10:25 Nasopharyngeal Swab Influenza Types A,B Antigen ([facility]) - Final 10/17/17 10:25 Nasopharyngeal Swab - Final CTA chest results reviewed RLE duplex results reviewed ASSESSMENT AND PLAN: 62 yom active smoker, pMHx of NIDDM, PUD, BPH admitted with acute hypoxic respiratory failure, Septic shock, suspected CHF. -Acute hypoxic respiratory failure, suspect from ?ILD with pneumonitis -Extensive RLE Acute DVT - ?Mild Acute diastolic heart failure -Sepsis, likely from PNA -Lactic acidosis, from sepsis vs increased work of breathing -?MIRLANDE from sepsis -Thrombocytopenia -Elevated INR -Chest wall and right sided abdominal pain -NIDDM -PUD -BPH Plan: Ceftriaxone/Azithromycin day 5. Blood cultures neg. Sputum cultures if available. Influenza swab/urine pneumococcal/legionella Ag neg BP improved without fluids or pressors. ID input appreciated. Follow up fungal/TB/immunology studies. CTA chest noted, ?ILD with pneumonitis. Placed on solumedrol. Continue Bipap for now Trial with gentle diuresis earlier, hold off more lasix for now. cardiology input noted. 2D echo reivewed. Heparin drip. S/p IVC filter 10/20, plan for thrombectomy on Monday. Thrombocytopenia, elevated INR. hematology input appreciated. HIT sent per recs but unlikely as discussed. s/p Vitamin K for elevated INR> Femoral line placed in ED, removed 10/19. ACS ruled out. LFTs WNL, abdominal ultrasound neg for concerns. Suspect pain superificial from significant coughing. resolved. ISS, diabetic diet, Blood sugars rising given steroids. Place on levemir if persistently elevated x 24 hours. Protonix Needs ICU monitoring given tenuous respiratory status, need for bipap and close hemodynamic monitoring now with acute DVT and concerns for ILD with pneumonitis. Total critical care time spent 35 min.
--- NOTE | 2017-10-21 13:51 | PN ---
Progress Note (short form) - Note Progress Note: SUBJECTIVE: Patient seen and examined in the ICU. Placed on NIPPV overnight and now back on HFOT. Awake and alert. Reports breathing is slightly better. CXR: Somewhat diminished bilateral diffuse interstitial infiltrates OBJECTIVE: Intake & Output 10/17/17 10/18/17 10/19/17 10/20/17 23:59 23:59 23:59 23:59 Intake Total 3650 300 450 Output Total 1225 1800 1400 Balance 2425 -1500 -950 Weight 130 lb 166 lb 1.6 oz 166 lb 1.6 oz 165 lb 1.6 oz Last Vital Signs Temp Pulse Resp BP Pulse Ox 98.2 F 80 22 126/57 97 10/20/17 06:00 10/20/17 10:00 10/20/17 10:00 10/20/17 10:00 10/20/17 10:15 Active Medications Acetaminophen (Tylenol -) 650 mg PO Q6H PRN PRN Reason: FEVER OR PAIN Last Admin: 10/21/17 06:15 Dose: 650 mg Albuterol/Ipratropium (Duoneb -) 1 amp NEB Q6H PRN PRN Reason: SHORTNESS OF BREATH Last Admin: 10/20/17 17:38 Dose: 1 amp Chlorhexidine Gluconate (Hibiclens For Decolonization -) 1 applic TP HS SONAL Last Admin: 10/20/17 21:21 Dose: 1 applic Heparin Sodium (Porcine) (Heparin -) 1,000 unit IVPUSH PRN PRN PRN Reason: Heparin Last Admin: 10/21/17 11:19 Dose: 1,000 unit Heparin Sodium (Porcine) (Heparin -) 5,000 unit IVPUSH PRN PRN PRN Reason: Heparin Last Admin: 10/20/17 18:13 Dose: 5,000 unit Azithromycin 500 mg/ Dextrose 250 mls @ 250 mls/hr IVPB DAILY SONAL Last Admin: 10/21/17 10:31 Dose: 250 mls/hr CEFTRIAXONE 1 G/50 ML PREMIX (Ceftriaxone 1 Gm-D5w Bag) 50 mls @ 100 mls/hr IVPB DAILY [facility] Last Admin: 10/21/17 10:30 Dose: 100 mls/hr HEPARIN SOD,PORK IN 0.45% NACL (Heparin-1/2ns 25,000 Units/500) 25,000 units in 500 mls @ 20 mls/hr IVPB TITR SONAL; 1,000 UNITS/HR PRN Reason: Protocol Last Titration: 10/21/17 11:18 Dose: 1,100 units/hr, 22 mls/hr Insulin Aspart (Novolog Vial Sliding Scale -) 1 vial SQ ACHS SONAL PRN Reason: Protocol Last Admin: 10/21/17 11:29 Dose: 4 units Methylprednisolone Sodium Succinate (Solu-Medrol -) 40 mg IVPUSH Q8H-IV SONAL Last Admin: 10/21/17 10:31 Dose: 40 mg Mupirocin (Bactroban Ointment (For Decolonization) -) 1 applic NS BID SONAL Stop: 10/22/17 21:59 Last Admin: 10/21/17 10:30 Dose: 1 applic Nicotine (Nicoderm Patch -) 7 mg TD DAILY SONAL Last Admin: 10/21/17 10:30 Dose: 7 mg Phytonadione (Aqua Mephyton Injection -) 5 mg SQ DAILY SONAL Stop: 10/22/17 10:01 Last Admin: 10/21/17 10:31 Dose: 5 mg Gen: Awake and alert, Mildly tachypneic at rest on HFOT Heart: RRR Lung: Bibasilar crackles/rhonchi, slight expiratory wheeze Abd: soft, nontender Ext: Right calf edema and pain, mild erythema Neuro: non-focal exam CBCD WBC 4.6 K/mm3 (4.0-10.0) D 10/21/17 05:50 RBC 2.63 M/mm3 (4.00-5.60) L 10/21/17 05:50 Hgb 8.9 GM/dL (11.7-16.9) L 10/21/17 05:50 Hct 26.3 % (35.4-49) L 10/21/17 05:50 MCV 100.1 fl (80-96) H 10/21/17 05:50 MCHC 34.0 g/dl (32.0-35.9) 10/21/17 05:50 RDW 14.6 % (11.9-15.9) 10/21/17 05:50 Plt Count 135 K/MM3 (134-434) 10/21/17 05:50 MPV 9.8 fl (7.5-11.1) 10/21/17 05:50 CMP Sodium 136 mmol/L (136-145) 10/21/17 05:50 Potassium 4.0 mmol/L (3.5-5.1) 10/21/17 05:50 Chloride 103 mmol/L (98-107) 10/21/17 05:50 Carbon Dioxide 25 mmol/L (21-32) 10/21/17 05:50 Anion Gap 8 (8-16) 10/21/17 05:50 BUN 45 mg/dL (7-18) H 10/21/17 05:50 Creatinine 1.1 mg/dL (0.7-1.3) D 10/21/17 05:50 Creat Clearance w eGFR > 60 (>60) 10/21/17 05:50 Calcium 7.8 mg/dL (8.5-10.1) L 10/21/17 05:50 Total Bilirubin 0.4 mg/dL (0.2-1.0) D 10/21/17 05:50 AST 17 U/L (15-37) D 10/21/17 05:50 ALT 14 U/L (12-78) 10/21/17 05:50 Alkaline Phosphatase 95 U/L (45-117) 10/21/17 05:50 Total Protein 7.9 g/dl (6.4-8.2) 10/21/17 05:50 Albumin 2.4 g/dl (3.4-5.0) L 10/21/17 05:50 Problem List - Problems (1) Acute respiratory failure with hypoxia Code(s): J96.01 - ACUTE RESPIRATORY FAILURE WITH HYPOXIA (2) Pneumonia Code(s): J18.9 - PNEUMONIA, UNSPECIFIED ORGANISM (3) Diabetes Code(s): E11.9 - TYPE 2 DIABETES MELLITUS WITHOUT COMPLICATIONS ASSESSMENT AND PLAN: Acute Hypoxic Respiratory Failure (?) ILD DVT, S/p IVC Pneumonia AE of COPD Sepsis Acute Diastolic Heart Failure Acute Kidney Injury Lactic Acidosis r/o CHF DM - CAP coverage as per ID - US the RLE ---> DVT on Heparin gtt and s/p IVCF in IR - CT chest with both ground glass, traction and some fibrosis - Titrate FiO2 to keep SpO2 >90% HF NC daytime, NIV as needed at night. - BD TX - Medrol - even to negative fluid balance - monitor urine output, creatinine - PO as tolerated - continue ICU monitoring for tenuous respiratory status Darwin Jamil ACNP [id number] 35min CCT
--- NOTE | 2017-10-21 18:43 | PN ---
Progress Note (short form) - Note Progress Note: pt seen and examined. on High flow Oxygen Denies any complains, says that he is feeling better. Constitutional: Yes: no distress on HFO Cardiovascular: Yes: Regular Rate and Rhythm Respiratory: Yes: Rales (scattered) Gastrointestinal: Yes: Normal Bowel Sounds, Soft. Neurological: Yes: Alert, Oriented LE: calf swelling on the right side Temp Pulse Resp BP Pulse Ox 98.7 F 58 L 23 122/55 99 10/21/17 14:00 10/21/17 16:00 10/21/17 16:00 10/21/17 16:00 10/21/17 17:06 CBC, BMP 10/21/17 05:50 10/21/17 05:50 Current Medications Generic Name Dose Route Start Last Admin Trade Name Freq PRN Reason Stop Dose Admin Acetaminophen 650 mg 10/19/17 22:58 10/21/17 16:13 Tylenol - PO 650 mg Q6H PRN Administration FEVER OR PAIN Albuterol/Ipratropium 1 amp 10/20/17 14:59 10/20/17 17:38 Duoneb - NEB 1 amp Q6H PRN Administration SHORTNESS OF BREATH Chlorhexidine Gluconate 1 applic 10/17/17 22:00 10/20/17 21:21 Hibiclens For Decolonization - TP 1 applic HS SONAL Administration Heparin Sodium (Porcine) 1,000 unit 10/20/17 17:59 10/21/17 11:19 Heparin - IVPUSH 1,000 unit PRN PRN Administration Heparin Heparin Sodium (Porcine) 5,000 unit 10/20/17 17:59 10/20/17 18:13 Heparin - IVPUSH 5,000 unit PRN PRN Administration Heparin Azithromycin 500 mg/ Dextrose 250 mls @ 250 mls/hr 10/17/17 15:30 10/21/17 10 :31 IVPB 250 mls/hr DAILY SONAL Administration CEFTRIAXONE 1 G/50 ML PREMIX 50 mls @ 100 mls/hr 10/18/17 10:00 10/21/17 10: 30 Ceftriaxone 1 Gm-D5w Bag IVPB 100 mls/hr DAILY SONAL Administration HEPARIN SOD,PORK IN 0.45% NACL 25,000 units in 500 mls @ 20 mls/hr 10/20/17 18 :04 10/21/17 11:18 Heparin-1/2ns 25,000 Units/500 IVPB 1,100 units/hr TITR SONAL 22 mls/hr Protocol Titration 1,000 UNITS/HR Insulin Aspart 1 vial 10/17/17 16:30 10/21/17 16:18 Novolog Vial Sliding Scale - SQ 6 units ACHS SONAL Administration Protocol Methylprednisolone Sodium Succinate 40 mg 10/20/17 18:00 10/21/17 10:31 Solu-Medrol - IVPUSH 40 mg Q8H-IV SONAL Administration Mupirocin 1 applic 10/17/17 22:00 10/21/17 10:30 Bactroban Ointment (For Decolonization) - NS 10/22/17 21:59 1 applic BID SONAL Administration Nicotine 7 mg 10/19/17 12:45 10/21/17 10:30 Nicoderm Patch - TD 7 mg DAILY SONAL Administration Phytonadione 5 mg 10/21/17 10:00 10/21/17 10:31 Aqua Mephyton Injection - SQ 10/22/17 10:01 5 mg DAILY SONAL Administration Extensive RLE DVT-- Provoked. Diagnosed 3 days after admission, while on DVT prophylaxis with heparin on heparin drip, PTT monitoring per protocol with CBC monitoring elevated INR for VitK nonspecific hilar/mediastinal adenopathy f/u SPEP hematuria--UA w/ 1+blood gives h/o prostatectomy ?etiology ? urology consult US rec MRI/MRCP for reviewed findings, would need at some point when stable ?ILD on Medrol
[2017-10-21] MEDS: HEPARIN SOD,PORK IN 0.45% NACL 25,000 UNITS/500 ML INFUS.BAG IVPB SCH (18:47)
[2017-10-21] MEDS: CHLORHEXIDINE GLUCONATE 4% CLEANSER FOR DECOLONIZATION TP SCH (21:08)
--- NOTE | 2017-10-21 22:24 | PN ---
Progress Note, Physician Chief Complaint: Patient was sitting comfortably. He reports no SOB at rest, chest pain or palpitation. Tele shows sinus rhythm. No significant arrhythmia noted. History of Present Illness: 62 year old man with a PMHx of DM and tobacco use who was admitted with SOB and cough. CXR with congestion with infiltrates. BNP is elevated. Fever and elevated WBC noted. He has been treated with Ceftriaxone/Azithro and steroids. Echo 10/17/17: normal LV size with mild LV systolic dysfunction. LVEF = =45%. Moderate MR. CT scan now shows ILD with possible pneumonitits. No evidence of ischemia or IL. . - Current Medication List Current Medications: Active Medications Acetaminophen (Tylenol -) 650 mg PO Q6H PRN PRN Reason: FEVER OR PAIN Last Admin: 10/21/17 16:13 Dose: 650 mg Albuterol/Ipratropium (Duoneb -) 1 amp NEB Q6H PRN PRN Reason: SHORTNESS OF BREATH Last Admin: 10/20/17 17:38 Dose: 1 amp Chlorhexidine Gluconate (Hibiclens For Decolonization -) 1 applic TP HS SONAL Last Admin: 10/21/17 21:08 Dose: 1 applic Heparin Sodium (Porcine) (Heparin -) 1,000 unit IVPUSH PRN PRN PRN Reason: Heparin Last Admin: 10/21/17 19:20 Dose: 1,000 unit Heparin Sodium (Porcine) (Heparin -) 5,000 unit IVPUSH PRN PRN PRN Reason: Heparin Last Admin: 10/20/17 18:13 Dose: 5,000 unit Azithromycin 500 mg/ Dextrose 250 mls @ 250 mls/hr IVPB DAILY SONAL Last Admin: 10/21/17 10:31 Dose: 250 mls/hr CEFTRIAXONE 1 G/50 ML PREMIX (Ceftriaxone 1 Gm-D5w Bag) 50 mls @ 100 mls/hr IVPB DAILY [facility]ON[facility] Last Admin: 10/21/17 10:30 Dose: 100 mls/hr HEPARIN SOD,PORK IN 0.45% NACL (Heparin-1/2ns 25,000 Units/500) 25,000 units in 500 mls @ 20 mls/hr IVPB TITR SONAL; 1,000 UNITS/HR PRN Reason: Protocol Last Titration: 10/21/17 19:20 Dose: 1,200 units/hr, 24 mls/hr Insulin Aspart (Novolog Vial Sliding Scale -) 1 vial SQ ACHS [facility] PRN Reason: Protocol Last Admin: 10/21/17 21:08 Dose: 2 units Methylprednisolone Sodium Succinate (Solu-Medrol -) 40 mg IVPUSH Q8H-IV [facility] Last Admin: 10/21/17 18:48 Dose: 40 mg Mupirocin (Bactroban Ointment (For Decolonization) -) 1 applic NS BID [facility] Stop: 10/22/17 21:59 Last Admin: 10/21/17 21:08 Dose: 1 applic Nicotine (Nicoderm Patch -) 7 mg TD DAILY [facility] Last Admin: 10/21/17 10:30 Dose: 7 mg Phytonadione (Aqua Mephyton Injection -) 5 mg SQ DAILY [facility] Stop: 10/22/17 10:01 Last Admin: 10/21/17 10:31 Dose: 5 mg - Objective Vital Signs: Vital Signs Temperature 98.7 F 10/21/17 14:00 Pulse Rate 68 10/21/17 19:00 Respiratory Rate 24 10/21/17 19:51 Blood Pressure 117/54 10/21/17 19:00 O2 Sat by Pulse Oximetry (%) 96 10/21/17 21:42 Constitutional: Yes: No Distress, Calm, Thin Eyes: Yes: Conjunctiva Clear, EOM Intact HENT: Yes: Atraumatic, Normocephalic Neck: Yes: Supple, Trachea Midline Cardiovascular: Yes: Regular Rate and Rhythm Respiratory: Yes: Regular, Diminished, Rales Gastrointestinal: Yes: Normal Bowel Sounds, Soft ...Rectal Exam: Yes: Deferred Edema: No Peripheral Pulses WNL: Yes Labs: CBC, BMP 10/21/17 05:50 10/21/17 05:50 INR, PTT INR 1.96 (0.82-1.09) H 10/21/17 05:50 Assessment/Plan 62 year old man with a PMHx of DM and tobacco use who was admitted with SOB and cough. CXR with congestion with infiltrates. BNP is elevated. Fever and elevated WBC noted. He has been treated with Ceftriaxone/Azithro and steroids. Echo 10/17/17: normal LV size with mild LV systolic dysfunction. LVEF = =45%. Moderate MR. CT scan now shows ILD with possible pneumonitits. No evidence of ischemia or IL. -SOB likely multifactorial: systolic CHF and ILD with possible pneumonitits Currently he has no physical signs of fluid overload. Furosemide on hold Being treated with Ceftriaxone/Azithro and steroids. Please call us for reconsult as needed. Thank you!
[2017-10-22] MEDS: methylPREDNISolone NA SUCC 40 MG/1 ML VIAL IVPUSH SCH ×3 (01:05→18:00)
[2017-10-22] MEDS: ACETAMINOPHEN 325 MG TABLET (FP) PO PRN ×2 (04:28→20:42)
[2017-10-22] MEDS: INSULIN SLIDING SCALE (NOVOLOG) 1 VIAL SQ SCH ×4 (06:04→21:05)
[2017-10-22 06:21] LABS: HEMATOCRIT 24.5 % (35.4-49); HEMOGLOBIN 8.3 GM/dL (11.7-16.9); MCH 34.1 pg (25.7-33.7); MCHC 33.8 g/dl (32.0-35.9); MEAN CELL VOLUME 100.9 fl (80-96); MEAN PLT VOLUME 9.3 fl (7.5-11.1); PLATELET COUNT 147 K/MM3 (134-434); RBC 2.42 M/mm3 (4.00-5.60); RDW 14.8 % (11.9-15.9); WHITE BLOOD COUNT 6.4 K/mm3 (4.0-10.0)
--- NOTE | 2017-10-22 07:29 | PN ---
Progress Note (short form) - Note Progress Note: PULM/CCM Pt Seen & Examined in the ICU. Pt CA+OX3 breathing easy on HFNC. Pt states feeling markedly better. Active Medications Acetaminophen (Tylenol -) 650 mg PO Q6H PRN PRN Reason: FEVER OR PAIN Last Admin: 10/22/17 04:28 Dose: 650 mg Albuterol/Ipratropium (Duoneb -) 1 amp NEB Q6H PRN PRN Reason: SHORTNESS OF BREATH Last Admin: 10/20/17 17:38 Dose: 1 amp Chlorhexidine Gluconate (Hibiclens For Decolonization -) 1 applic TP HS SONAL Last Admin: 10/21/17 21:08 Dose: 1 applic Heparin Sodium (Porcine) (Heparin -) 1,000 unit IVPUSH PRN PRN PRN Reason: Heparin Last Admin: 10/21/17 19:20 Dose: 1,000 unit Heparin Sodium (Porcine) (Heparin -) 5,000 unit IVPUSH PRN PRN PRN Reason: Heparin Last Admin: 10/20/17 18:13 Dose: 5,000 unit Azithromycin 500 mg/ Dextrose 250 mls @ 250 mls/hr IVPB DAILY [facility]PL[facility] BY [facility] Last Admin: 10/22/17 10:17 Dose: 250 mls/hr CEFTRIAXONE 1 G/50 ML PREMIX (Ceftriaxone 1 Gm-D5w Bag) 50 mls @ 100 mls/hr IVPB DAILY [facility]PL[facility] Last Admin: 10/22/17 10:26 Dose: 100 mls/hr HEPARIN SOD,PORK IN 0.45% NACL (Heparin-1/2ns 25,000 Units/500) 25,000 units in 500 mls @ 20 mls/hr IVPB TITR SONAL; 1,000 UNITS/HR PRN Reason: Protocol Last Titration: 10/21/17 19:20 Dose: 1,200 units/hr, 24 mls/hr Insulin Aspart (Novolog Vial Sliding Scale -) 1 vial SQ ACHS SONAL PRN Reason: Protocol Last Admin: 10/22/17 13:52 Dose: 6 units Insulin Detemir (Levemir Vial) 10 units SQ DAILY [facility] Last Admin: 10/22/17 10:27 Dose: 10 units Methylprednisolone Sodium Succinate (Solu-Medrol -) 40 mg IVPUSH Q8H-IV SONAL Last Admin: 10/22/17 10:18 Dose: 40 mg Mupirocin (Bactroban Ointment (For Decolonization) -) 1 applic NS BID SONAL Stop: 10/22/17 21:59 Last Admin: 10/21/17 21:08 Dose: 1 applic Nicotine (Nicoderm Patch -) 7 mg TD DAILY REPL[facility] Last Admin: 10/22/17 10:26 Dose: 7 mg V/S Period Temp Pulse Resp BP Sys/Sutton Pulse Ox Last 24 Hr 98.2 F-98.6 F 51-76 18-24 102-122/50-59 95-100 Intake & Output 10/19/17 10/20/17 10/21/17 10/22/17 23:59 23:59 23:59 23:59 Intake Total 450 1465 1385 1150 Output Total 0536 841 7957 400 Balance -950 715 -215 750 Weight 75.342 kg 74.888 kg 78.744 kg 79.243 kg Gen: Awake and alert, Mildly tachypneic at rest on HFOT Heart: RRR Lung: Bibasilar crackles/rhonchi, slight expiratory wheeze Abd: soft, nontender Ext: Right calf edema and pain, mild erythema Neuro: non-focal exam CBC, BMP 10/22/17 05:05 10/21/17 05:50 Microbiology 10/19/17 19:30 Sputum - Expectorated Gram Stain - Final 10/19/17 19:30 Sputum - Expectorated Sputum Culture - Final NORMAL RESPIRATORY TOYIN 10/17/17 10:10 Blood - Peripheral Venous Blood Culture - Final NO GROWTH AFTER 5 DAYS INCUBATION 10/17/17 10:10 Blood - Peripheral Venous Blood Culture - Final NO GROWTH AFTER 5 DAYS INCUBATION 10/17/17 13:57 Urine - Urine Clean Catch Urine Culture - Final NO GROWTH OBTAINED 10/17/17 13:57 Urine For Antigen Detection Legionella Antigen - Final 10/17/17 13:57 Urine For Antigen Detection Streptococcus pneumoniae Antigen (M - Final 10/17/17 10:25 Nasopharyngeal Swab Influenza Types A,B Antigen ([facility]) - Final 10/17/17 10:25 Nasopharyngeal Swab - Final RECENT STUDIES TO NOTE: CTA CHEST 10/20: GGO, traction, & Fibrosis ASSESS: Acute Hypoxic Respiratory Failure (?) ILD DVT, S/p IVC Pneumonia AE of COPD Sepsis Acute Diastolic Heart Failure Acute Kidney Injury Lactic Acidosis r/o CHF DM PLAN: - Titrate FiO2 to keep SpO2 >90% - NEBS - CAP coverage as per ID - STEROIDS - CONT Heparin gtt for massive RLE ---> DVT (s/p IVCF) - IR Tomorrow for EKOS??? - BD TX - even to negative fluid balance - monitor urine output, creatinine - Reg Diet - FS - SSI - continue ICU monitoring for tenuous respiratory status - VATS BX?? DGL ACNP-BC [facility] ICU PULM/CCM [id number]
--- NOTE | 2017-10-22 07:56 | PN ---
Progress Note, Physician Chief Complaint: ID Subjective improvement Ceftriaxone and Azithromycin day 5 treatment No fever (Solumedrol) - Current Medication List Current Medications: Active Medications Acetaminophen (Tylenol -) 650 mg PO Q6H PRN PRN Reason: FEVER OR PAIN Last Admin: 10/22/17 04:28 Dose: 650 mg Albuterol/Ipratropium (Duoneb -) 1 amp NEB Q6H PRN PRN Reason: SHORTNESS OF BREATH Last Admin: 10/20/17 17:38 Dose: 1 amp Chlorhexidine Gluconate (Hibiclens For Decolonization -) 1 applic TP HS SONAL Last Admin: 10/21/17 21:08 Dose: 1 applic Heparin Sodium (Porcine) (Heparin -) 1,000 unit IVPUSH PRN PRN PRN Reason: Heparin Last Admin: 10/21/17 19:20 Dose: 1,000 unit Heparin Sodium (Porcine) (Heparin -) 5,000 unit IVPUSH PRN PRN PRN Reason: Heparin Last Admin: 10/20/17 18:13 Dose: 5,000 unit Azithromycin 500 mg/ Dextrose 250 mls @ 250 mls/hr IVPB DAILY [facility] Last Admin: 10/21/17 10:31 Dose: 250 mls/hr CEFTRIAXONE 1 G/50 ML PREMIX (Ceftriaxone 1 Gm-D5w Bag) 50 mls @ 100 mls/hr IVPB DAILY [facility] Last Admin: 10/21/17 10:30 Dose: 100 mls/hr HEPARIN SOD,PORK IN 0.45% NACL (Heparin-1/2ns 25,000 Units/500) 25,000 units in 500 mls @ 20 mls/hr IVPB TITR SONAL; 1,000 UNITS/HR PRN Reason: Protocol Last Titration: 10/21/17 19:20 Dose: 1,200 units/hr, 24 mls/hr Insulin Aspart (Novolog Vial Sliding Scale -) 1 vial SQ ACHS SONAL PRN Reason: Protocol Last Admin: 10/22/17 06:04 Dose: 6 units Methylprednisolone Sodium Succinate (Solu-Medrol -) 40 mg IVPUSH Q8H-IV SONAL Last Admin: 10/22/17 01:05 Dose: 40 mg Mupirocin (Bactroban Ointment (For Decolonization) -) 1 applic NS BID [facility] Stop: 01/07/18 21:59 Last Admin: 10/21/17 21:08 Dose: 1 applic Nicotine (Nicoderm Patch -) 7 mg TD DAILY [facility] Last Admin: 10/21/17 10:30 Dose: 7 mg Phytonadione (Aqua Mephyton Injection -) 5 mg SQ DAILY [facility] Stop: 10/22/17 10:01 Last Admin: 10/21/17 10:31 Dose: 5 mg - Objective Vital Signs: Vital Signs Temperature 98.2 F 10/22/17 06:00 Pulse Rate 55 L 10/22/17 06:00 Respiratory Rate 22 10/22/17 06:00 Blood Pressure 103/59 10/22/17 06:00 O2 Sat by Pulse Oximetry (%) 96 10/21/17 21:42 Constitutional: Yes: No Distress Neck: Yes: WNL, Supple Cardiovascular: Yes: Regular Rate and Rhythm, S1, S2 Respiratory: Yes: WNL, Regular, CTA Bilaterally Gastrointestinal: Yes: WNL, Normal Bowel Sounds Edema: No Labs: CBC, BMP 10/22/17 05:05 10/21/17 05:50 INR, PTT INR 1.96 (0.82-1.09) H 10/21/17 05:50 Assessment/Plan Assessment Interstital lung disease Consideration of secondary infection superimposed but unspecified at this time Bacterial or viral most likely. Day 5 antibiotics Plan Complete current meds another 2 days CRP ESR for interest Await carissa Owusu MD
[2017-10-22 08:14] LABS: ARTERIAL BLD GAS O2 SATURATION 96.7 % (90-98.9); ARTERIAL BLOOD GAS PCO2 41.3 mmHg (35-45); ARTERIAL BLOOD GAS PO2 91.4 mmHg (80-100); ARTERIAL BLOOD GAS pH 7.37 (7.35-7.45)
[2017-10-22 08:15] LABS: ALLENS TEST POSITIVE; ARTERIAL BLOOD GAS BASE EXCESS -1.5 meq/l (-2-2)
--- NOTE | 2017-10-22 09:14 | PN ---
Teaching Attending Note Name of Resident: . ATTENDING PHYSICIAN STATEMENT SUBJECTIVE: patient seen and examined. Breathing with some improvement, still with right leg pain, no new complaints, denies chest or abdominal pain. OBJECTIVE: Vital Signs Period Temp Pulse Resp BP Sys/Sutton Pulse Ox Last 24 Hr 97.3 F-98.7 F 51-68 18-24 102-136/50-63 96-100 Intake & Output 10/19/17 10/20/17 10/21/17 10/22/17 23:59 23:59 23:59 23:59 Intake Total 450 1465 1385 400 Output Total 5899 072 8908 400 Balance -950 715 -215 0 Weight 166 lb 1.6 oz 165 lb 1.6 oz 173 lb 9.6 oz 174 lb 11.2 oz General: sitting in bed on high flow oxygen, mild use of acessory muscles of respiration Chest: limited exam, scattered rales but no rhonchi today Abdomen: soft, NT, ND, positive bowel sounds extremities; RLE unchanged edema and calf tenderness, positive DP pulses Home Medication List Medication Instructions Recorded Confirmed Type Glipizide [Glucotrol Xl] 0 mg PO ASDIR 10/17/17 10/17/17 History Metformin HCl 0 mg PO ASDIR 10/17/17 10/17/17 History Tamsulosin HCl 0.4 mg PO DAILY 10/17/17 10/17/17 History Active Medications Generic Name Dose Route Start Last Admin Trade Name Freq PRN Reason Stop Dose Admin Acetaminophen 650 mg 10/19/17 22:58 10/22/17 04:28 Tylenol - PO 650 mg Q6H PRN Administration FEVER OR PAIN Albuterol/Ipratropium 1 amp 10/20/17 14:59 10/20/17 17:38 Duoneb - NEB 1 amp Q6H PRN Administration SHORTNESS OF BREATH Chlorhexidine Gluconate 1 applic 10/17/17 22:00 10/21/17 21:08 Hibiclens For Decolonization - TP 1 applic HS SONAL Administration Heparin Sodium (Porcine) 1,000 unit 10/20/17 17:59 10/21/17 19:20 Heparin - IVPUSH 1,000 unit PRN PRN Administration Heparin Heparin Sodium (Porcine) 5,000 unit 10/20/17 17:59 10/20/17 18:13 Heparin - IVPUSH 5,000 unit PRN PRN Administration Heparin Azithromycin 500 mg/ Dextrose 250 mls @ 250 mls/hr 10/17/17 15:30 10/21/17 10 :31 IVPB 250 mls/hr DAILY SONAL Administration CEFTRIAXONE 1 G/50 ML PREMIX 50 mls @ 100 mls/hr 10/18/17 10:00 10/21/17 10: 30 Ceftriaxone 1 Gm-D5w Bag IVPB 100 mls/hr DAILY SONAL Administration HEPARIN SOD,PORK IN 0.45% NACL 25,000 units in 500 mls @ 20 mls/hr 10/20/17 18 :04 10/21/17 19:20 Heparin-1/2ns 25,000 Units/500 IVPB 1,200 units/hr TITR SONAL 24 mls/hr Protocol Titration 1,000 UNITS/HR Insulin Aspart 1 vial 10/17/17 16:30 10/22/17 06:04 Novolog Vial Sliding Scale - SQ 6 units ACHS SONAL Administration Protocol Methylprednisolone Sodium Succinate 40 mg 10/20/17 18:00 10/22/17 01:05 Solu-Medrol - IVPUSH 40 mg Q8H-IV SONAL Administration Mupirocin 1 applic 10/17/17 22:00 10/21/17 21:08 Bactroban Ointment (For Decolonization) - NS 10/22/17 21:59 1 applic BID SONAL Administration Nicotine 7 mg 10/19/17 12:45 10/21/17 10:30 Nicoderm Patch - TD 7 mg DAILY SONAL Administration Phytonadione 5 mg 10/21/17 10:00 10/21/17 10:31 Aqua Mephyton Injection - SQ 10/22/17 10:01 5 mg DAILY SONAL Administration Laboratory Results - last 24 hr 10/20/17 10/20/17 10/20/17 10:10 17:36 21:16 WBC RBC Hgb Hct MCV MCH MCHC RDW Plt Count MPV PTT (Actin FS) Puncture Site ABG pH ABG pCO2 at Pt Temp ABG pO2 at Pt Temp ABG HCO3 ABG O2 Sat (Measured) ABG O2 Content ABG Base Excess Dionte Test O2 Delivery Device Oxygen Flow Rate POC Glucometer 215.49418 175.81886 199.60046 C-Reactive Protein 10/21/17 10/21/17 10/21/17 06:03 11:29 16:17 WBC RBC Hgb Hct MCV MCH MCHC RDW Plt Count MPV PTT (Actin FS) Puncture Site ABG pH ABG pCO2 at Pt Temp ABG pO2 at Pt Temp ABG HCO3 ABG O2 Sat (Measured) ABG O2 Content ABG Base Excess Dionte Test O2 Delivery Device Oxygen Flow Rate POC Glucometer 241.91572 282.41051 323.01624 C-Reactive Protein 10/21/17 10/21/17 10/22/17 17:45 20:39 00:15 WBC RBC Hgb Hct MCV MCH MCHC RDW Plt Count MPV PTT (Actin FS) 41.3 H 56.2 H D Puncture Site ABG pH ABG pCO2 at Pt Temp ABG pO2 at Pt Temp ABG HCO3 ABG O2 Sat (Measured) ABG O2 Content ABG Base Excess Dionte Test O2 Delivery Device Oxygen Flow Rate POC Glucometer 249.96770 C-Reactive Protein 10/22/17 10/22/17 10/22/17 05:05 05:05 05:05 WBC 6.4 D RBC 2.42 L Hgb 8.3 L Hct 24.5 L MCV 100.9 H MCH 34.1 H MCHC 33.8 RDW 14.8 Plt Count 147 MPV 9.3 PTT (Actin FS) 50.7 H Puncture Site ABG pH ABG pCO2 at Pt Temp ABG pO2 at Pt Temp ABG HCO3 ABG O2 Sat (Measured) ABG O2 Content ABG Base Excess Dionte Test O2 Delivery Device Oxygen Flow Rate POC Glucometer C-Reactive Protein 13.0 H 10/22/17 07:45 WBC RBC Hgb Hct MCV MCH MCHC RDW Plt Count MPV PTT (Actin FS) Puncture Site Right radial ABG pH 7.37 ABG pCO2 at Pt Temp 41.3 ABG pO2 at Pt Temp 91.4 ABG HCO3 23.1 ABG O2 Sat (Measured) 96.7 ABG O2 Content 10.4 L ABG Base Excess -1.5 Dionte Test Positive O2 Delivery Device High flow Oxygen Flow Rate 61 POC Glucometer C-Reactive Protein Microbiology 10/17/17 10:10 Blood - Peripheral Venous Blood Culture - Preliminary NO GROWTH OBTAINED AFTER 96 HOURS, INCUBATION TO CONTINUE FOR 1 DAYS. 10/17/17 10:10 Blood - Peripheral Venous Blood Culture - Preliminary NO GROWTH OBTAINED AFTER 96 HOURS, INCUBATION TO CONTINUE FOR 1 DAYS. 10/19/17 19:30 Sputum - Expectorated Gram Stain - Final 10/19/17 19:30 Sputum - Expectorated Sputum Culture - Preliminary NORMAL RESPIRATORY TOYIN 10/17/17 13:57 Urine - Urine Clean Catch Urine Culture - Final NO GROWTH OBTAINED 10/17/17 13:57 Urine For Antigen Detection Legionella Antigen - Final 10/17/17 13:57 Urine For Antigen Detection Streptococcus pneumoniae Antigen (M - Final 10/17/17 10:25 Nasopharyngeal Swab Influenza Types A,B Antigen ([facility]) - Final 10/17/17 10:25 Nasopharyngeal Swab - Final ASSESSMENT AND PLAN: 62 yom active smoker, pMHx of NIDDM, PUD, BPH admitted with acute hypoxic respiratory failure, Septic shock, suspected CHF. -Acute hypoxic respiratory failure, suspect from ?ILD with pneumonitis -Extensive RLE Acute DVT - ?Mild Acute diastolic heart failure -Sepsis, likely from PNA -Lactic acidosis, from sepsis vs increased work of breathing -?MIRLANDE from sepsis -Thrombocytopenia -Elevated INR -Chest wall and right sided abdominal pain -NIDDM -PUD -BPH Plan: Ceftriaxone/Azithromycin day 6. Blood cultures neg. Sputum cultures if available. Influenza swab/urine pneumococcal/legionella Ag neg BP improved without fluids or pressors. ID input appreciated. Follow up fungal/TB/immunology studies. CTA chest noted, ?ILD with pneumonitis. Placed on solumedrol. tapered to high flow oxygen, monitor for now. Trial with gentle diuresis earlier, hold off more lasix for now. cardiology input noted. 2D echo reivewed. Heparin drip. S/p IVC filter 10/20, plan for thrombectomy on Monday per ICU. Thrombocytopenia, elevated INR. hematology input appreciated. HIT sent per recs but unlikely as discussed. s/p Vitamin K for elevated INR> Femoral line placed in ED, removed 10/19. ACS ruled out. LFTs WNL, abdominal ultrasound neg for concerns. Suspect pain superificial from significant coughing. resolved. ISS, diabetic diet, Blood sugars rising given steroids. start levemir 10 units daily. Protonix Needs ICU monitoring given tenuous respiratory status, need for bipap and close hemodynamic monitoring now with acute DVT and concerns for ILD with pneumonitis. Total critical care time spent 35 min.
[2017-10-22] MEDS: PHYTONADIONE 10 MG/1 ML AMP SQ SCH (10:17)
[2017-10-22] MEDS: AZITHROMYCIN IVPB 500 MG in DEXTROSE 5%-WATER - 250 ML IVPB SCH (10:17)
[2017-10-22] MEDS: CEFTRIAXONE 1 G/50 ML PREMIX 50 ML IVPB SCH (10:26)
[2017-10-22] MEDS: NICOTINE 7 MG/24 HOURS TOPICAL PATCH TD SCH (10:26)
[2017-10-22] MEDS: INSULIN DETEMIR 100 UNITS/ML MDV SQ SCH (10:27)
--- NOTE | 2017-10-22 13:28 | PN ---
Progress Note (short form) - Note Progress Note: pt seen and examined. on High flow Oxygen Denies any complains Constitutional: Yes: no distress on HFO Cardiovascular: Yes: Regular Rate and Rhythm Respiratory: Yes: Rales (scattered) Gastrointestinal: Yes: Normal Bowel Sounds, Soft. Neurological: Yes: Alert, Oriented LE: calf swelling on the right side Temp Pulse Resp BP Pulse Ox 98.7 F 58 L 23 122/55 99 10/21/17 14:00 10/21/17 16:00 10/21/17 16:00 10/21/17 16:00 10/21/17 17:06 CBC, BMP 10/21/17 05:50 10/21/17 05:50 Current Medications Generic Name Dose Route Start Last Admin Trade Name Freq PRN Reason Stop Dose Admin Acetaminophen 650 mg 10/19/17 22:58 10/21/17 16:13 Tylenol - PO 650 mg Q6H PRN Administration FEVER OR PAIN Albuterol/Ipratropium 1 amp 10/20/17 14:59 10/20/17 17:38 Duoneb - NEB 1 amp Q6H PRN Administration SHORTNESS OF BREATH Chlorhexidine Gluconate 1 applic 10/17/17 22:00 10/20/17 21:21 Hibiclens For Decolonization - TP 1 applic HS SONAL Administration Heparin Sodium (Porcine) 1,000 unit 10/20/17 17:59 10/21/17 11:19 Heparin - IVPUSH 1,000 unit PRN PRN Administration Heparin Heparin Sodium (Porcine) 5,000 unit 10/20/17 17:59 10/20/17 18:13 Heparin - IVPUSH 5,000 unit PRN PRN Administration Heparin Azithromycin 500 mg/ Dextrose 250 mls @ 250 mls/hr 10/17/17 15:30 10/21/17 10 :31 IVPB 250 mls/hr DAILY SONAL Administration CEFTRIAXONE 1 G/50 ML PREMIX 50 mls @ 100 mls/hr 10/18/17 10:00 10/21/17 10: 30 Ceftriaxone 1 Gm-D5w Bag IVPB 100 mls/hr DAILY SONAL Administration HEPARIN SOD,PORK IN 0.45% NACL 25,000 units in 500 mls @ 20 mls/hr 10/20/17 18 :04 10/21/17 11:18 Heparin-1/2ns 25,000 Units/500 IVPB 1,100 units/hr TITR SONAL 22 mls/hr Protocol Titration 1,000 UNITS/HR Insulin Aspart 1 vial 10/17/17 16:30 10/21/17 16:18 Novolog Vial Sliding Scale - SQ 6 units ACHS SONAL Administration Protocol Methylprednisolone Sodium Succinate 40 mg 10/20/17 18:00 10/21/17 10:31 Solu-Medrol - IVPUSH 40 mg Q8H-IV SONAL Administration Mupirocin 1 applic 10/17/17 22:00 10/21/17 10:30 Bactroban Ointment (For Decolonization) - NS 10/22/17 21:59 1 applic BID SONAL Administration Nicotine 7 mg 10/19/17 12:45 10/21/17 10:30 Nicoderm Patch - TD 7 mg DAILY SONAL Administration Phytonadione 5 mg 10/21/17 10:00 10/21/17 10:31 Aqua Mephyton Injection - SQ 10/22/17 10:01 5 mg DAILY SONAL Administration Extensive RLE DVT-- Provoked. Diagnosed 3 days after admission, while on DVT prophylaxis with heparin on heparin drip, PTT monitoring per protocol with CBC monitoring elevated INR s/p VitK nonspecific hilar/mediastinal adenopathy f/u SPEP hematuria--UA w/ 1+blood gives h/o prostatectomy ?etiology ? urology consult US rec MRI/MRCP for reviewed findings, would need at some point when stable ?ILD on Medrol
[2017-10-22] MEDS: MUPIROCIN 2% TOPICAL OINTMENT FOR DECOLONIZATION NS SCH (17:57)
[2017-10-22] MEDS: HEPARIN SOD,PORK IN 0.45% NACL 25,000 UNITS/500 ML INFUS.BAG IVPB SCH (18:12)
[2017-10-22] MEDS: CHLORHEXIDINE GLUCONATE 4% CLEANSER FOR DECOLONIZATION TP SCH (21:04)
[2017-10-23 03:02] LABS: IGA IMMUNOGLOBULIN 462 mg/dL (61-437); IGM IMMUNOGLOBULIN 65 mg/dL (20-172)
[2017-10-23] MEDS: methylPREDNISolone NA SUCC 40 MG/1 ML VIAL IVPUSH SCH ×3 (03:17→17:09)
[2017-10-23] MEDS: ACETAMINOPHEN 325 MG TABLET (FP) PO PRN ×3 (06:24→22:45)
[2017-10-23] MEDS: INSULIN SLIDING SCALE (NOVOLOG) 1 VIAL SQ SCH ×4 (06:24→22:05)
[2017-10-23 07:04] LABS: BASO % 0.8 % (0-2.0); HEMATOCRIT 26.4 % (35.4-49); HEMOGLOBIN 8.6 GM/dL (11.7-16.9); LYMPH % 17.9 % (8-40); MCH 32.7 pg (25.7-33.7); MCHC 32.5 g/dl (32.0-35.9); MEAN CELL VOLUME 100.8 fl (80-96); MONO % 7.4 % (3.8-10.2); NEUT % 73.9 % (42.8-82.8); PLATELET COUNT 164 K/MM3 (134-434); RBC 2.62 M/mm3 (4.00-5.60); RDW 14.7 % (11.9-15.9); WHITE BLOOD COUNT 6.6 K/mm3 (4.0-10.0)
[2017-10-23 07:13] LABS: ALBUMIN 2.3 g/dl (3.4-5.0); ANION GAP 10 (8-16); BLOOD UREA NITROGEN 44 mg/dL (7-18); CALCIUM 8.1 mg/dL (8.5-10.1); CHLORIDE 103 mmol/L (98-107); CO2 25 mmol/L (21-32); GLUCOSE,RANDOM 198 mg/dL (74-106); POTASSIUM 4.3 mmol/L (3.5-5.1); SODIUM 138 mmol/L (136-145)
[2017-10-23 07:15] LABS: ALK PHOS 79 U/L (45-117); BILIRUBIN,TOTAL 0.3 mg/dL (0.2-1.0); SGOT/AST 16 U/L (15-37); SGPT/ALT 16 U/L (12-78); TOT PROT 6.9 g/dl (6.4-8.2)
[2017-10-23 07:22] LABS: INR 1.07 (0.82-1.09); PROTHROMBIN TIME (PATIENT) 12.1 SEC (9.98-11.88)
--- NOTE | 2017-10-23 07:53 | PN ---
Progress Note, Physician Chief Complaint: ID Day 6 antibiotics Ceftriaxone and Azithromycin Antiocoagulation Solumedrol - Current Medication List Current Medications: Active Medications Acetaminophen (Tylenol -) 650 mg PO Q6H PRN PRN Reason: FEVER OR PAIN Last Admin: 10/23/17 06:24 Dose: 650 mg Albuterol/Ipratropium (Duoneb -) 1 amp NEB Q6H PRN PRN Reason: SHORTNESS OF BREATH Last Admin: 10/20/17 17:38 Dose: 1 amp Chlorhexidine Gluconate (Hibiclens For Decolonization -) 1 applic TP HS SONAL Last Admin: 10/22/17 21:04 Dose: 1 applic Heparin Sodium (Porcine) (Heparin -) 1,000 unit IVPUSH PRN PRN PRN Reason: Heparin Last Admin: 10/21/17 19:20 Dose: 1,000 unit Heparin Sodium (Porcine) (Heparin -) 5,000 unit IVPUSH PRN PRN PRN Reason: Heparin Last Admin: 10/20/17 18:13 Dose: 5,000 unit Azithromycin 500 mg/ Dextrose 250 mls @ 250 mls/hr IVPB DAILY [facility] Last Admin: 10/22/17 10:17 Dose: 250 mls/hr CEFTRIAXONE 1 G/50 ML PREMIX (Ceftriaxone 1 Gm-D5w Bag) 50 mls @ 100 mls/hr IVPB DAILY [facility] Last Admin: 10/22/17 10:26 Dose: 100 mls/hr HEPARIN SOD,PORK IN 0.45% NACL (Heparin-1/2ns 25,000 Units/500) 25,000 units in 500 mls @ 20 mls/hr IVPB TITR SONAL; 1,000 UNITS/HR PRN Reason: Protocol Last Admin: 10/22/17 18:12 Dose: 1,200 units/hr, 24 mls/hr Insulin Aspart (Novolog Vial Sliding Scale -) 1 vial SQ ACHS SONAL PRN Reason: Protocol Last Admin: 10/23/17 06:24 Dose: 2 units Insulin Detemir (Levemir Vial) 10 units SQ DAILY [facility] Last Admin: 10/22/17 10:27 Dose: 10 units Methylprednisolone Sodium Succinate (Solu-Medrol -) 40 mg IVPUSH Q8H-IV SONAL Last Admin: 10/23/17 03:17 Dose: 40 mg Nicotine (Nicoderm Patch -) 7 mg TD DAILY [facility] Last Admin: 10/22/17 10:26 Dose: 7 mg - Objective Vital Signs: Vital Signs Temperature 97.9 F 10/23/17 06:00 Pulse Rate 58 L 10/23/17 06:00 Respiratory Rate 21 10/23/17 06:00 Blood Pressure 100/46 10/23/17 06:00 O2 Sat by Pulse Oximetry (%) 100 10/23/17 06:40 Constitutional: Yes: Mild Distress Neck: Yes: WNL, Supple Cardiovascular: Yes: Tachycardia, S1, S2 Respiratory: Yes: WNL, Regular, CTA Bilaterally, Other (Bilateral rales right greater then left) Gastrointestinal: Yes: Soft. No: Tenderness Extremities: Yes: Other (Swelling right leg) Labs: CBC, BMP 10/23/17 05:10 10/23/17 05:10 INR, PTT INR 1.07 (0.82-1.09) D 10/23/17 05:10 Assessment/Plan Microbiology 10/19/17 19:30 Sputum - Expectorated Gram Stain - Final 10/19/17 19:30 Sputum - Expectorated Sputum Culture - Final NORMAL RESPIRATORY TOYIN 10/17/17 10:10 Blood - Peripheral Venous Blood Culture - Final NO GROWTH AFTER 5 DAYS INCUBATION 10/17/17 10:10 Blood - Peripheral Venous Blood Culture - Final NO GROWTH AFTER 5 DAYS INCUBATION Laboratory Tests 10/22/17 10/23/17 10/23/17 05:05 05:10 05:10 WBC 6.6 Hgb 8.6 L Hct 26.4 L Plt Count 164 ESR Pending BUN Creatinine Creat Clearance w eGFR C-Reactive Protein 13.0 H 10/23/17 05:10 WBC Hgb Hct Plt Count ESR BUN 44 H Creatinine 1.0 Creat Clearance w eGFR > 60 C-Reactive Protein Assessment Bilateral interstitial lung disease Treatment for possible superimposed bacterial infection ( Doubt TB fungi) DVT right leg anticoagulation Plan Tomorrow finish antibiotics then stop
--- NOTE | 2017-10-23 08:54 | PN ---
Teaching Attending Note Name of Resident: Mimi Pizarro ATTENDING PHYSICIAN STATEMENT I saw and evaluated the patient. I reviewed the resident's note and discussed the case with the resident. I agree with the resident's findings and plan as documented. SUBJECTIVE: Patient seen and examined. Breathing with some improvement, right leg pain, no new complaints. OBJECTIVE: Vital Signs Period Temp Pulse Resp BP Sys/Sutton Pulse Ox Last 24 Hr 97.6 F-98.4 F 49-76 18-25 92-135/46-60 95-100 Intake & Output 10/20/17 10/21/17 10/22/17 10/23/17 23:59 23:59 23:59 23:59 Intake Total 1465 1385 1150 538 Output Total 750 1600 1800 800 Balance 715 -215 -650 -262 Weight 165 lb 1.6 oz 173 lb 9.6 oz 174 lb 11.2 oz 175 lb 12.8 oz General: sitting in bed on high flow oxygen, some use of accessory muscles of respiration Chest: distant breath sounds consistent with emphysema, scattered rales Extremities: RLE swelling/erythema/tenderness, pos DP pulses, calf tenderness present Home Medication List Medication Instructions Recorded Confirmed Type Glipizide [Glucotrol Xl] 0 mg PO ASDIR 10/17/17 10/17/17 History Metformin HCl 0 mg PO ASDIR 10/17/17 10/17/17 History Tamsulosin HCl 0.4 mg PO DAILY 10/17/17 10/17/17 History Active Medications Generic Name Dose Route Start Last Admin Trade Name Freq PRN Reason Stop Dose Admin Acetaminophen 650 mg 10/19/17 22:58 10/23/17 06:24 Tylenol - PO 650 mg Q6H PRN Administration FEVER OR PAIN Albuterol/Ipratropium 1 amp 10/20/17 14:59 10/20/17 17:38 Duoneb - NEB 1 amp Q6H PRN Administration SHORTNESS OF BREATH Chlorhexidine Gluconate 1 applic 10/17/17 22:00 10/22/17 21:04 Hibiclens For Decolonization - TP 1 applic HS SONAL Administration Heparin Sodium (Porcine) 1,000 unit 10/20/17 17:59 10/21/17 19:20 Heparin - IVPUSH 1,000 unit PRN PRN Administration Heparin Heparin Sodium (Porcine) 5,000 unit 10/20/17 17:59 10/20/17 18:13 Heparin - IVPUSH 5,000 unit PRN PRN Administration Heparin Azithromycin 500 mg/ Dextrose 250 mls @ 250 mls/hr 10/17/17 15:30 10/22/17 10 :17 IVPB 250 mls/hr DAILY SONAL Administration CEFTRIAXONE 1 G/50 ML PREMIX 50 mls @ 100 mls/hr 10/18/17 10:00 10/22/17 10: 26 Ceftriaxone 1 Gm-D5w Bag IVPB 100 mls/hr DAILY SONAL Administration HEPARIN SOD,PORK IN 0.45% NACL 25,000 units in 500 mls @ 20 mls/hr 10/20/17 18 :04 10/22/17 18:12 Heparin-1/2ns 25,000 Units/500 IVPB 1,200 units/hr TITR SONAL 24 mls/hr Protocol Administration 1,000 UNITS/HR Insulin Aspart 1 vial 10/17/17 16:30 10/23/17 06:24 Novolog Vial Sliding Scale - SQ 2 units ACHS SONAL Administration Protocol Insulin Detemir 10 units 10/22/17 10:00 10/22/17 10:27 Levemir Vial SQ 10 units DAILY SONAL Administration Methylprednisolone Sodium Succinate 40 mg 10/20/17 18:00 10/23/17 03:17 Solu-Medrol - IVPUSH 40 mg Q8H-IV SONAL Administration Nicotine 7 mg 10/19/17 12:45 10/22/17 10:26 Nicoderm Patch - TD 7 mg DAILY SONAL Administration Laboratory Results - last 24 hr 10/21/17 10/23/17 10/23/17 05:50 05:10 05:10 WBC 6.6 RBC 2.62 L Hgb 8.6 L Hct 26.4 L MCV 100.8 H MCH 32.7 MCHC 32.5 RDW 14.7 Plt Count 164 MPV 10.0 Neutrophils % 73.9 Lymphocytes % 17.9 Monocytes % 7.4 D Eosinophils % 0.0 Basophils % 0.8 PT with INR INR PTT (Actin FS) 53.7 H Sodium Potassium Chloride Carbon Dioxide Anion Gap BUN Creatinine Creat Clearance w eGFR Random Glucose Calcium Total Bilirubin AST ALT Alkaline Phosphatase Total Protein Albumin IgG 2191 H IgA 462 H IgM 65 10/23/17 10/23/17 05:10 05:10 WBC RBC Hgb Hct MCV MCH MCHC RDW Plt Count MPV Neutrophils % Lymphocytes % Monocytes % Eosinophils % Basophils % PT with INR 12.10 H INR 1.07 D PTT (Actin FS) Sodium 138 Potassium 4.3 Chloride 103 Carbon Dioxide 25 Anion Gap 10 BUN 44 H Creatinine 1.0 Creat Clearance w eGFR > 60 Random Glucose 198 H Calcium 8.1 L Total Bilirubin 0.3 D AST 16 ALT 16 Alkaline Phosphatase 79 Total Protein 6.9 Albumin 2.3 L IgG IgA IgM CXr - worse congestive/infiltrative changes, though looks better from admission Microbiology 10/19/17 19:30 Sputum - Expectorated Gram Stain - Final 10/19/17 19:30 Sputum - Expectorated Sputum Culture - Final NORMAL RESPIRATORY TOYIN 10/17/17 10:10 Blood - Peripheral Venous Blood Culture - Final NO GROWTH AFTER 5 DAYS INCUBATION 10/17/17 10:10 Blood - Peripheral Venous Blood Culture - Final NO GROWTH AFTER 5 DAYS INCUBATION 10/17/17 13:57 Urine - Urine Clean Catch Urine Culture - Final NO GROWTH OBTAINED 10/17/17 13:57 Urine For Antigen Detection Legionella Antigen - Final 10/17/17 13:57 Urine For Antigen Detection Streptococcus pneumoniae Antigen (M - Final 10/17/17 10:25 Nasopharyngeal Swab Influenza Types A,B Antigen ([facility]) - Final 10/17/17 10:25 Nasopharyngeal Swab - Final ASSESSMENT AND PLAN: 62 yom active smoker, pMHx of NIDDM, PUD, BPH admitted with acute hypoxic respiratory failure, Septic shock, suspected CHF. -Acute hypoxic respiratory failure, suspect from ?ILD with pneumonitis -Extensive RLE Acute DVT - ?Mild Acute diastolic heart failure -Sepsis, likely from PNA -Lactic acidosis, from sepsis vs increased work of breathing -?MIRLANDE from sepsis -Thrombocytopenia -Elevated INR -Chest wall and right sided abdominal pain -NIDDM -PUD -BPH Plan: Ceftriaxone/Azithromycin day 7. Blood cultures neg. Sputum cultures if available. Influenza swab/urine pneumococcal/legionella Ag/Mycoplasma neg BP improved without fluids or pressors. SBP 90s-100s. ID input appreciated. Follow up fungal/TB/CMV/Histoplasma/immunology studies. HIV neg CTA chest noted, ?ILD with pneumonitis. Placed on solumedrol. tapered to high flow oxygen, monitor for now. Trial with gentle diuresis earlier, hold off more lasix for now. cardiology input noted. 2D echo reivewed. Heparin drip. S/p IVC filter 10/20, discussed with Dr. Low on 10/21, possible thrombectomy today, discussed with ICU. Thrombocytopenia, elevated INR. hematology input appreciated. HIT sent per recs but unlikely as discussed. s/p Vitamin K for elevated INR Femoral line placed in ED, removed 10/19. ACS ruled out. LFTs WNL, abdominal ultrasound neg for concerns. Suspect pain superificial from significant coughing. resolved. ISS, diabetic diet, Blood sugars rising given steroids. Started levemir 10 units daily, titrate as needed Protonix Needs ICU monitoring given tenuous respiratory status, need for bipap and close hemodynamic monitoring now with acute DVT and concerns for ILD with pneumonitis. Total critical care time spent 35 min.
[2017-10-23] MEDS ORDERED: PT OWN MED DRAWER 7, Y5N ONE (09:15)
[2017-10-23] MEDS: CEFTRIAXONE 1 G/50 ML PREMIX 50 ML IVPB SCH (09:22)
[2017-10-23] MEDS: INSULIN DETEMIR 100 UNITS/ML MDV SQ SCH (09:22)
[2017-10-23] MEDS: AZITHROMYCIN IVPB 500 MG in DEXTROSE 5%-WATER - 250 ML IVPB SCH (09:23)
[2017-10-23] MEDS: NICOTINE 7 MG/24 HOURS TOPICAL PATCH TD SCH (09:23)
--- NOTE | 2017-10-23 11:42 | MSN ---
Progress Note (short form) - Note Progress Note: Subjective: Patient was seen this morning and complains of right calf pain. Patient denies chest pain, abd pain, SOB. Objective: Last Vital Signs Temp Pulse Resp BP Pulse Ox 98.1 F 53 L 21 113/54 98 10/23/17 12:00 10/23/17 12:00 10/23/17 12:00 10/23/17 12:00 10/23/17 12:03 General: Patient is A&O x3. In no acute distress HEENT: PERRLA. wearing nasal cannula. Heart: distant sound. RRR. no rubs, murmurs appreciated. Lungs: Diminished breath sounds on the right side. No wheezing, rales or rhonci appreciated. Abdomen: soft, normoactive bowel sounds. Tender to deep palpation of the RUQ. Extremities: Edema of right calf with tenderness to palpation. No edema on the left. UE and LE pulses 2+ B/L. CBC, BMP 10/23/17 05:10 10/23/17 05:10 Intake & Output 10/20/17 10/21/17 10/22/17 10/23/17 23:59 23:59 23:59 23:59 Intake Total 1465 1385 1150 538 Output Total 750 1600 1800 1000 Balance 976 -929 -033 -982 Weight 165 lb 1.6 oz 173 lb 9.6 oz 174 lb 11.2 oz 175 lb 12.8 oz Abnormal Lab Results 10/21/17 10/23/17 10/23/17 05:50 05:10 05:10 RBC Hgb Hct MCV ESR 74 H PT with INR PTT (Actin FS) 53.7 H BUN Random Glucose Calcium Albumin IgG 2191 H IgA 462 H 10/23/17 10/23/17 10/23/17 05:10 05:10 05:10 RBC 2.62 L Hgb 8.6 L Hct 26.4 L MCV 100.8 H ESR PT with INR 12.10 H PTT (Actin FS) BUN 44 H Random Glucose 198 H Calcium 8.1 L Albumin 2.3 L IgG IgA Microbiology 10/19/17 19:30 Sputum - Expectorated Gram Stain - Final 10/19/17 19:30 Sputum - Expectorated Sputum Culture - Final NORMAL RESPIRATORY TOYIN 10/17/17 10:10 Blood - Peripheral Venous Blood Culture - Final NO GROWTH AFTER 5 DAYS INCUBATION 10/17/17 10:10 Blood - Peripheral Venous Blood Culture - Final NO GROWTH AFTER 5 DAYS INCUBATION 10/17/17 13:57 Urine - Urine Clean Catch Urine Culture - Final NO GROWTH OBTAINED 10/17/17 13:57 Urine For Antigen Detection Legionella Antigen - Final 10/17/17 13:57 Urine For Antigen Detection Streptococcus pneumoniae Antigen (M - Final 10/17/17 10:25 Nasopharyngeal Swab Influenza Types A,B Antigen ([facility]) - Final 10/17/17 10:25 Nasopharyngeal Swab - Final Imaging: - Chest X-ray 10/23/17: worse. Since 10/20/2017, there are progressive congestive and infiltrative findings - Chest CT 10/20/17: No CT evidence of pulmonary embolism. Diffuse bilateral nonspecific groundglass interstitial thickening - ? acute pneumonitis versus chronic interstitial lung disease. Nonspecific mediastinal and bilateral hilar lymphadenopathy. - Leg US 10/20/17: DVT noted. There is occlusive thrombosis within the common, deep and superficial femoral veins, as well as the popliteal and posterior tibial veins. These veins are incompressible, an additional sign of DVT. The greater saphenous vein is patent, however, the lesser saphenous vein is also thrombosed. - Chest X-ray 10/20/17: Since the prior study of 10/19/2017 at 0726 hours, the diffuse airspace changes persist. The patient is in a more apical lordotic projection. Follow-up recommended. The findings could represent a RDS. - Chest x-ray 10/19/17: Since 10/18/2017, the diffuse airspace changes have diminished slightly. The findings are still suggestive of possible ARDS. - Abd US 10/18/17: Moderate to marked gallbladder contraction is noted which may be physiologic in nature versus secondary to chronic cholecystitis. If clinically indicated correlate with two-week follow-up sonography with optimal pre - exam fasting. Gallbladder contraction was also described on a previous ultrasound exam of 03/25/2013. No sonographic evidence of acute cholecystitis. There is no obvious evidence of cholelithiasis allowing for previously described gallbladder contraction. No definite biliary tract dilatation is seen. The partially visualized pancreas demonstrates no gross sonographic abnormality. However, on the 2012 ultrasound study dilatation of the main pancreatic duct was described with a 0.5 cm diameter. Given this apparent finding on the prior study additional evaluation utilizing MRI/MRCP is suggested when the patient's clinical condition permits (unless already performed at a different facility). - Chest x-ray 10/18/17: Since 10/17/2017, the congestive and infiltrative changes persist. Follow-up recommended. - Chest x-ray 10/17/17: Shallow inspiration. Congestive changes, clinically correlate for CHF. No pneumothorax, or large pleural effusion is seen. Assessment/ Plan: 62yo M smoker with PMH of NIDDM, PUD, BPH admitted with respiratory failure, septic shock, CHF currently has right LE DVT. # Hypoxic respiratory failure possibly from interstitial lung dz with pneumonitis. - high flow nasal cannula - Albuterol/Ipratropium (Duoneb -) 1 amp NEB Q6H PRN SOB - Methylprednisolone Sodium Succinate (Solu-Medrol -) 40 mg IVPUSH Q8H-IV SONAL # RLE pain secondary to DVT - IVC filter placed on 10/20/17 - possible thrombectomy tomorrow - Acetaminophen (Tylenol -) 650 mg PO Q6H PRN fever/ pain - HEPARIN SOD,PORK IN 0.45% NACL (Heparin-1/2ns 25,000 Units/500) 25,000 units in 500 mls @ 20 mls/hr IVPB TITR SONAL; 1,000 UNITS/HR # septic shock likely secondary to CAP - treatment for CAP day 7: Azithromycin 500 mg/ Dextrose 250 mls @ 250 mls/hr IVPB DAILY SONAL CEFTRIAXONE 1 G/50 ML PREMIX (Ceftriaxone 1 Gm-D5w Bag) 50 mls @ 100 mls/ hr IVPB DAILY SONAL - blood cultures and sputum culture negative # RUQ abd pain possibly due to coughing. - US sound negative for concerns. # NIDDM - diabetic diet - Insulin Aspart (Novolog Vial Sliding Scale -) 1 vial SQ ACHS SONAL - Blood sugars rise due to steroids. Give Insulin Detemir (Levemir Vial) 10 units SQ DAILY SONAL # macrocytic anemia - stable - continue to monitor # BPH - continue home med of Tamsulosin 0.4mg PO daily # FEN - F: po - E: wnl. continue to monitor - N: diabetic diet
--- NOTE | 2017-10-23 12:01 | PN ---
Physical Exam: SUBJECTIVE: Patient doing well 2 days s/p IVC filter on HFNC. Eating and not complaining of any SOB over the past few days. OBJECTIVE: Vital Signs Period Temp Pulse Resp BP Sys/Sutton Pulse Ox Last 24 Hr 97.6 F-98.2 F 49-73 18-25 92-135/46-60 95-100 GENERAL: The patient is awake, alert, and fully oriented, in no acute distress. HEAD: Normal with no signs of trauma. EYES: PERRL, extraocular movements intact, sclera anicteric, conjunctiva clear. No ptosis. ENT: Ears normal. HFNC in nares. NECK: Trachea midline, full range of motion, supple. LUNGS: Fine bilateral lower lung field crackles, no accessory muscle usage, turned down FiO2 on HFNC from 60% to 50% HEART: + JVD.Regular rate and rhythm, S1, S2 without murmur, rub or gallop. ABDOMEN: Soft, nontender, nondistended, normoactive bowel sounds, no guarding, no rebound, no hepatosplenomegaly, no masses. EXTREMITIES: 2+ pulses, warm, well-perfused,extreme swelling of right calf with TTP NEUROLOGICAL: No obvious focal deficit PSYCH: Normal mood, normal affect. SKIN: Warm, dry, normal turgor, no rashes or lesions noted Laboratory Results - last 24 hr 10/21/17 10/21/17 10/23/17 05:50 05:50 05:10 WBC RBC Hgb Hct MCV MCH MCHC RDW Plt Count MPV Neutrophils % Lymphocytes % Monocytes % Eosinophils % Basophils % ESR PT with INR INR PTT (Actin FS) 53.7 H Sodium Potassium Chloride Carbon Dioxide Anion Gap BUN Creatinine Creat Clearance w eGFR Random Glucose Calcium Total Bilirubin AST ALT Alkaline Phosphatase Total Protein Albumin IgG 2191 H IgA 462 H IgM 65 Coccidioides G,A,M Ab TNP 10/23/17 10/23/17 10/23/17 05:10 05:10 05:10 WBC 6.6 RBC 2.62 L Hgb 8.6 L Hct 26.4 L MCV 100.8 H MCH 32.7 MCHC 32.5 RDW 14.7 Plt Count 164 MPV 10.0 Neutrophils % 73.9 Lymphocytes % 17.9 Monocytes % 7.4 D Eosinophils % 0.0 Basophils % 0.8 ESR 74 H PT with INR 12.10 H INR 1.07 D PTT (Actin FS) Sodium Potassium Chloride Carbon Dioxide Anion Gap BUN Creatinine Creat Clearance w eGFR Random Glucose Calcium Total Bilirubin AST ALT Alkaline Phosphatase Total Protein Albumin IgG IgA IgM Coccidioides G,A,M Ab 10/23/17 05:10 WBC RBC Hgb Hct MCV MCH MCHC RDW Plt Count MPV Neutrophils % Lymphocytes % Monocytes % Eosinophils % Basophils % ESR PT with INR INR PTT (Actin FS) Sodium 138 Potassium 4.3 Chloride 103 Carbon Dioxide 25 Anion Gap 10 BUN 44 H Creatinine 1.0 Creat Clearance w eGFR > 60 Random Glucose 198 H Calcium 8.1 L Total Bilirubin 0.3 D AST 16 ALT 16 Alkaline Phosphatase 79 Total Protein 6.9 Albumin 2.3 L IgG IgA IgM Coccidioides G,A,M Ab Active Medications Generic Name Dose Route Start Last Admin Trade Name Freq PRN Reason Stop Dose Admin Acetaminophen 650 mg 10/19/17 22:58 10/23/17 06:24 Tylenol - PO 650 mg Q6H PRN Administration FEVER OR PAIN Albuterol/Ipratropium 1 amp 10/20/17 14:59 10/20/17 17:38 Duoneb - NEB 1 amp Q6H PRN Administration SHORTNESS OF BREATH Chlorhexidine Gluconate 1 applic 10/17/17 22:00 10/22/17 21:04 Hibiclens For Decolonization - TP 1 applic HS SONAL Administration Heparin Sodium (Porcine) 1,000 unit 10/20/17 17:59 10/21/17 19:20 Heparin - IVPUSH 1,000 unit PRN PRN Administration Heparin Heparin Sodium (Porcine) 5,000 unit 10/20/17 17:59 10/20/17 18:13 Heparin - IVPUSH 5,000 unit PRN PRN Administration Heparin Azithromycin 500 mg/ Dextrose 250 mls @ 250 mls/hr 10/17/17 15:30 10/23/17 09 :23 IVPB 250 mls/hr DAILY SONAL Administration CEFTRIAXONE 1 G/50 ML PREMIX 50 mls @ 100 mls/hr 10/18/17 10:00 10/23/17 09: 22 Ceftriaxone 1 Gm-D5w Bag IVPB 100 mls/hr DAILY SONAL Administration HEPARIN SOD,PORK IN 0.45% NACL 25,000 units in 500 mls @ 20 mls/hr 10/20/17 18 :04 01/07/18 18:12 Heparin-1/2ns 25,000 Units/500 IVPB 1,200 units/hr TITR SONAL 24 mls/hr Protocol Administration 1,000 UNITS/HR Insulin Aspart 1 vial 10/17/17 16:30 10/23/17 06:24 Novolog Vial Sliding Scale - SQ 2 units ACHS SONAL Administration Protocol Insulin Detemir 10 units 10/22/17 10:00 10/23/17 09:22 Levemir Vial SQ 10 units DAILY SONAL Administration Methylprednisolone Sodium Succinate 40 mg 10/20/17 18:00 10/23/17 09:23 Solu-Medrol - IVPUSH 40 mg Q8H-IV SONAL Administration Nicotine 7 mg 10/19/17 12:45 10/23/17 09:23 Nicoderm Patch - TD 7 mg DAILY SONAL Administration ASSESSMENT/PLAN: Patient is a 62 year old male who was BIBEMS for hypoxic respiratory failure placed now in between BiPap and HFNC, eating food, off of pressers, but with RLE DVT without PE as/p IVC filter and pending IR thrombectomy. Neuro: #Nicotine Dependence: - Nicotine patch 7 MG daily (1-2 cig per day smoker) CV: #Septic Shock vs. iatrogenic hypovolemic shock vs. cardiogenic shock: original presentation - Tachycardia of 105, Respiratory rate 26, Fever of 101, WBC of 11.7, Hypotension with SBP <90 with no response to IV fluids, and Lactic Acidosis of 3.6. Source unclear but likely PNA. Off pressers - Resolved off Bipap - CTM #DVT: U/S positive for Right calf DVT - 3 days s/p IVC filter pending thrombectomy tomorrow AM - Continue hep drip Pulm: #Acute Hypoxic Respiratory Failure: Legionalla and strep negative. Zosyn and Vancomycin given in ED. Patient denies any recent hospitalization or abx use. Original chest X-ray reveals bilateral multifocal inflammatory changes (ARDS) vs. congestive heart failure. given JVD and crackles it is likely the later. Still will treat for CAP. ECHO showing mild mitral regurg, mild/mod tricuspid regurg, mild PHTN - Repeat XR slightly worse to equal - CT demonstrating diffuse interstitial lung disease with GGOs - Steroids decreased fro 40 IV Q8 to prednisone 40 daily - Abx per ID section - Tylenol 1000mg IVP PRN for fevers - Elevated HOB - F/U Blood cultures pending - No need for lasix today as he is autodiuresing but can consider one dose tomorrow given improved cr. - Doign well on HFNC, will attempt transition to venti-mask tomorrow ID: likely ILD with GGO vs. infectious pattern. HIV, influenza, strep, legionella neg. BCx NGTD, sputum Cx NGTD. - Continue Azithromycin 500mg Daily and Ceftriaxone 1gm QD for CAP per ID for one more day - Follow up cryptococcal antigen - ID recs appreciated Renal: #Acute Kidney Injury: Was resolved but then re-elevated after lasix x 2 days - Likely iatrogenic lasix - Resolved - CTM - Avoid nephrotoxic medications Heme: #Macrocytic Anemia: Hemoglobin 9.2 with MCV 101 - Ferritin 882 (likely reactive) - Will continue to trend Endo #NIDDM: -BGM -ISS : #BPH -Patient on Tamsulosin 0.4mg daily GI: #Peptic Ulcer Disease -History of mesh according to family and had Endoscopy two months -Was given medications according to patients daughter and completed course FEN -hold fluids due to pulmonary congestion -Electrolytes wnl -Diabetic diet while on HF NC PPX: -High risk. Heparin 5000 units sq Q8H -No GI required Disposition -Full code -Patient requiring hfnc , and hep drip for DVT pending thromectomy Visit type - Emergency Visit Emergency Visit: No - New Patient This patient is new to me today: No - Critical Care Critical Care patient: Yes Total Critical Care Time (in minutes): 35 Critical Care Statement: The care of this patient involved high complexity decision making to prevent further life threatening deterioration of the patient 's condition and/or to evaluate & treat vital organ system(s) failure or risk of failure. - Discharge Referral Referred to [facility] No
[2017-10-23] MEDS: HEPARIN SOD,PORK IN 0.45% NACL 25,000 UNITS/500 ML INFUS.BAG IVPB SCH ×2 (12:39→19:11)
--- NOTE | 2017-10-23 13:08 | PN ---
Teaching Attending Note Name of Resident: Jaxson Echevarria ATTENDING PHYSICIAN STATEMENT I saw and evaluated the patient. I reviewed the resident's note and discussed the case with the resident. I agree with the resident's findings and plan as documented. SUBJECTIVE: Patient seen and examined in the ICU. Remains on HFOT. Reports breathing somewhat better. Still with significant discomfort and swelling in the Right LE. Denies CP. Intake & Output 10/20/17 10/21/17 10/22/17 10/23/17 23:59 23:59 23:59 23:59 Intake Total 1465 1385 1150 538 Output Total 750 1600 1800 1000 Balance 715 -215 -650 -462 Weight 165 lb 1.6 oz 173 lb 9.6 oz 174 lb 11.2 oz 175 lb 12.8 oz Last Vital Signs Temp Pulse Resp BP Pulse Ox 98.1 F 53 L 21 113/54 98 10/23/17 12:00 10/23/17 12:00 10/23/17 12:00 10/23/17 12:00 10/23/17 12:03 Active Medications Acetaminophen (Tylenol -) 650 mg PO Q6H PRN PRN Reason: FEVER OR PAIN Last Admin: 10/23/17 06:24 Dose: 650 mg Albuterol/Ipratropium (Duoneb -) 1 amp NEB Q6H PRN PRN Reason: SHORTNESS OF BREATH Last Admin: 10/20/17 17:38 Dose: 1 amp Chlorhexidine Gluconate (Hibiclens For Decolonization -) 1 applic TP HS [facility] Last Admin: 10/22/17 21:04 Dose: 1 applic Heparin Sodium (Porcine) (Heparin -) 1,000 unit IVPUSH PRN PRN PRN Reason: Heparin Last Admin: 10/21/17 19:20 Dose: 1,000 unit Heparin Sodium (Porcine) (Heparin -) 5,000 unit IVPUSH PRN PRN PRN Reason: Heparin Last Admin: 10/20/17 18:13 Dose: 5,000 unit Azithromycin 500 mg/ Dextrose 250 mls @ 250 mls/hr IVPB DAILY [facility] Last Admin: 10/23/17 09:23 Dose: 250 mls/hr CEFTRIAXONE 1 G/50 ML PREMIX (Ceftriaxone 1 Gm-D5w Bag) 50 mls @ 100 mls/hr IVPB DAILY [facility] Last Admin: 10/23/17 09:22 Dose: 100 mls/hr HEPARIN SOD,PORK IN 0.45% NACL (Heparin-1/2ns 25,000 Units/500) 25,000 units in 500 mls @ 20 mls/hr IVPB TITR SONAL; 1,000 UNITS/HR PRN Reason: Protocol Last Admin: 10/23/17 12:39 Dose: 1,200 units/hr, 24 mls/hr Insulin Aspart (Novolog Vial Sliding Scale -) 1 vial SQ ACHS SONAL PRN Reason: Protocol Last Admin: 10/23/17 12:44 Dose: 6 units Insulin Detemir (Levemir Vial) 10 units SQ DAILY SONAL Last Admin: 10/23/17 09:22 Dose: 10 units Methylprednisolone Sodium Succinate (Solu-Medrol -) 40 mg IVPUSH Q8H-IV SONAL Last Admin: 10/23/17 09:23 Dose: 40 mg Nicotine (Nicoderm Patch -) 7 mg TD DAILY SONAL Last Admin: 10/23/17 09:23 Dose: 7 mg Gen: Awake and alert, Mildly tachypneic at rest on HFOT Heart: RRR Lung: Bibasilar crackles/rhonchi, slight expiratory wheeze Abd: soft, nontender Ext: Right calf edema and pain, no erythema Neuro: non-focal Laboratory Results - last 24 hr 10/21/17 10/21/17 10/23/17 05:50 05:50 05:10 WBC RBC Hgb Hct MCV MCH MCHC RDW Plt Count MPV Neutrophils % Lymphocytes % Monocytes % Eosinophils % Basophils % ESR PT with INR INR PTT (Actin FS) 53.7 H Sodium Potassium Chloride Carbon Dioxide Anion Gap BUN Creatinine Creat Clearance w eGFR Random Glucose Calcium Total Bilirubin AST ALT Alkaline Phosphatase Total Protein Albumin IgG 2191 H IgA 462 H IgM 65 Coccidioides G,A,M Ab TNP 10/23/17 10/23/17 10/23/17 05:10 05:10 05:10 WBC 6.6 RBC 2.62 L Hgb 8.6 L Hct 26.4 L MCV 100.8 H MCH 32.7 MCHC 32.5 RDW 14.7 Plt Count 164 MPV 10.0 Neutrophils % 73.9 Lymphocytes % 17.9 Monocytes % 7.4 D Eosinophils % 0.0 Basophils % 0.8 ESR 74 H PT with INR 12.10 H INR 1.07 D PTT (Actin FS) Sodium Potassium Chloride Carbon Dioxide Anion Gap BUN Creatinine Creat Clearance w eGFR Random Glucose Calcium Total Bilirubin AST ALT Alkaline Phosphatase Total Protein Albumin IgG IgA IgM Coccidioides G,A,M Ab 10/23/17 05:10 WBC RBC Hgb Hct MCV MCH MCHC RDW Plt Count MPV Neutrophils % Lymphocytes % Monocytes % Eosinophils % Basophils % ESR PT with INR INR PTT (Actin FS) Sodium 138 Potassium 4.3 Chloride 103 Carbon Dioxide 25 Anion Gap 10 BUN 44 H Creatinine 1.0 Creat Clearance w eGFR > 60 Random Glucose 198 H Calcium 8.1 L Total Bilirubin 0.3 D AST 16 ALT 16 Alkaline Phosphatase 79 Total Protein 6.9 Albumin 2.3 L IgG IgA IgM Coccidioides G,A,M Ab Problem List - Problems (1) Acute respiratory failure with hypoxia Code(s): J96.01 - ACUTE RESPIRATORY FAILURE WITH HYPOXIA (2) Pneumonia Code(s): J18.9 - PNEUMONIA, UNSPECIFIED ORGANISM (3) Diabetes Code(s): E11.9 - TYPE 2 DIABETES MELLITUS WITHOUT COMPLICATIONS ASSESSMENT AND PLAN: Acute Hypoxic Respiratory Failure ILD Extensive RLE DVT Pneumonia AE of COPD Sepsis Acute Diastolic Heart Failure Acute Kidney Injury Lactic Acidosis r/o CHF DM - IR for possible thrombectomy of the RLE DVT - Titrate HFOT to keep SpO2 >90% - BD TX - Medrol taper - monitor urine output, creatinine - PO as tolerated - continue ICU monitoring for tenuous respiratory status Dr Souza Critical care time spent in reviewing chart, evaluating patient and formulating plan 40 min
--- NOTE | 2017-10-23 18:28 | PN ---
Progress Note (short form) - Note Progress Note: Patient seen and examined Feels better. For thrombolysis tomorrow AFVSS Cor: RSR, No murmurs, No gallops Lungs: Clear to P&A Abd: Soft, Normal bowel sounds, Ext:No significant edema Abnormal Lab Results 10/23/17 10/23/17 10/23/17 05:10 05:10 05:10 RBC 2.62 L Hgb 8.6 L Hct 26.4 L MCV 100.8 H ESR 74 H PT with INR PTT (Actin FS) 53.7 H BUN Random Glucose Calcium Albumin 10/23/17 10/23/17 05:10 05:10 RBC Hgb Hct MCV ESR PT with INR 12.10 H PTT (Actin FS) BUN 44 H Random Glucose 198 H Calcium 8.1 L Albumin 2.3 L Active Medications Generic Name Dose Route Start Last Admin Trade Name Freq PRN Reason Stop Dose Admin Acetaminophen 650 mg 10/19/17 22:58 10/23/17 22:45 Tylenol - PO 650 mg Q6H PRN Administration FEVER OR PAIN Albuterol/Ipratropium 1 amp 10/20/17 14:59 10/20/17 17:38 Duoneb - NEB 1 amp Q6H PRN Administration SHORTNESS OF BREATH Chlorhexidine Gluconate 1 applic 10/17/17 22:00 10/23/17 22:04 Hibiclens For Decolonization - TP 1 applic HS SONAL Administration Heparin Sodium (Porcine) 1,000 unit 10/20/17 17:59 10/21/17 19:20 Heparin - IVPUSH 1,000 unit PRN PRN Administration Heparin Heparin Sodium (Porcine) 5,000 unit 10/20/17 17:59 10/20/17 18:13 Heparin - IVPUSH 5,000 unit PRN PRN Administration Heparin Azithromycin 500 mg/ Dextrose 250 mls @ 250 mls/hr 10/17/17 15:30 10/23/17 09 :23 IVPB 250 mls/hr DAILY SONAL Administration CEFTRIAXONE 1 G/50 ML PREMIX 50 mls @ 100 mls/hr 10/18/17 10:00 10/23/17 09: 22 Ceftriaxone 1 Gm-D5w Bag IVPB 100 mls/hr DAILY SONAL Administration HEPARIN SOD,PORK IN 0.45% NACL 25,000 units in 500 mls @ 20 mls/hr 10/20/17 18 :04 10/23/17 19:11 Heparin-1/2ns 25,000 Units/500 IVPB Not Given TITR [facility] Protocol 1,000 UNITS/HR Insulin Aspart 1 vial 10/17/17 16:30 10/23/17 22:05 Novolog Vial Sliding Scale - SQ 6 units ACHS SONAL Administration Protocol Insulin Detemir 10 units 10/22/17 10:00 10/23/17 09:22 Levemir Vial SQ 10 units DAILY SONAL Administration Nicotine 7 mg 10/19/17 12:45 10/23/17 09:23 Nicoderm Patch - TD 7 mg DAILY SONAL Administration Prednisone 40 mg 10/24/17 10:00 Deltasone - PO DAILY SONAL 62 y/o with interstittial lung disease, worsening ressp. status, RLE DVT On heparin drip thrombocytopenia resolved for thrombolysis coagulopathy corrected with vit. K ? NOAC at discharge anemia of chronic disease f/u protein studies macrocytosis--check B12/folate/TSH
--- NOTE | 2017-10-23 19:57 | PN ---
Physical Exam: SUBJECTIVE: Patient seen and examined. Pt c/o Right LE pain and swelling. Pt on HFOT, breathing has improved. Pt denies chest pain, sob, abdominal pain, fever, chills. OBJECTIVE: Vital Signs Period Temp Pulse Resp BP Sys/Sutton Pulse Ox Last 24 Hr 97.6 F-98.2 F 49-75 18-25 92-130/46-59 97-100 GENERAL: The patient is awake, alert, and fully oriented, in no acute distress. LUNGS: Decreased breath sounds consistent with emphysema, scattered crackles. HEART: Regular rate and rhythm, S1, S2 without murmur, rub or gallop. ABDOMEN: Soft, nondistended, no guarding. EXTREMITIES: Right LE with swelling, warmth and tenderness to palpation. PSYCH: Normal mood, normal affect. SKIN: Warm, dry, normal turgor, no rashes or lesions noted Laboratory Results - last 24 hr 10/21/17 10/21/17 10/22/17 05:50 05:50 06:02 WBC RBC Hgb Hct MCV MCH MCHC RDW Plt Count MPV Neutrophils % Lymphocytes % Monocytes % Eosinophils % Basophils % ESR PT with INR INR PTT (Actin FS) Sodium Potassium Chloride Carbon Dioxide Anion Gap BUN Creatinine Creat Clearance w eGFR POC Glucometer [phone] Random Glucose Calcium Total Bilirubin AST ALT Alkaline Phosphatase Total Protein Albumin IgG 2191 H IgA 462 H IgM 65 Coccidioides G,A,M Ab TNP 10/22/17 10/22/17 10/22/17 12:20 18:04 20:47 WBC RBC Hgb Hct MCV MCH MCHC RDW Plt Count MPV Neutrophils % Lymphocytes % Monocytes % Eosinophils % Basophils % ESR PT with INR INR PTT (Actin FS) Sodium Potassium Chloride Carbon Dioxide Anion Gap BUN Creatinine Creat Clearance w eGFR POC Glucometer [phone] [phone] Random Glucose Calcium Total Bilirubin AST ALT Alkaline Phosphatase Total Protein Albumin IgG IgA IgM Coccidioides G,A,M Ab 10/23/17 10/23/17 10/23/17 05:10 05:10 05:10 WBC 6.6 RBC 2.62 L Hgb 8.6 L Hct 26.4 L MCV 100.8 H MCH 32.7 MCHC 32.5 RDW 14.7 Plt Count 164 MPV 10.0 Neutrophils % 73.9 Lymphocytes % 17.9 Monocytes % 7.4 D Eosinophils % 0.0 Basophils % 0.8 ESR 74 H PT with INR INR PTT (Actin FS) 53.7 H Sodium Potassium Chloride Carbon Dioxide Anion Gap BUN Creatinine Creat Clearance w eGFR POC Glucometer Random Glucose Calcium Total Bilirubin AST ALT Alkaline Phosphatase Total Protein Albumin IgG IgA IgM Coccidioides G,A,M Ab 10/23/17 10/23/17 10/23/17 05:10 05:10 06:21 WBC RBC Hgb Hct MCV MCH MCHC RDW Plt Count MPV Neutrophils % Lymphocytes % Monocytes % Eosinophils % Basophils % ESR PT with INR 12.10 H INR 1.07 D PTT (Actin FS) Sodium 138 Potassium 4.3 Chloride 103 Carbon Dioxide 25 Anion Gap 10 BUN 44 H Creatinine 1.0 Creat Clearance w eGFR > 60 POC Glucometer [phone] Random Glucose 198 H Calcium 8.1 L Total Bilirubin 0.3 D AST 16 ALT 16 Alkaline Phosphatase 79 Total Protein 6.9 Albumin 2.3 L IgG IgA IgM Coccidioides G,A,M Ab Active Medications Generic Name Dose Route Start Last Admin Trade Name Freq PRN Reason Stop Dose Admin Acetaminophen 650 mg 10/19/17 22:58 10/23/17 16:11 Tylenol - PO 650 mg Q6H PRN Administration FEVER OR PAIN Albuterol/Ipratropium 1 amp 10/20/17 14:59 10/20/17 17:38 Duoneb - NEB 1 amp Q6H PRN Administration SHORTNESS OF BREATH Chlorhexidine Gluconate 1 applic 10/17/17 22:00 10/22/17 21:04 Hibiclens For Decolonization - TP 1 applic HS SONAL Administration Heparin Sodium (Porcine) 1,000 unit 10/20/17 17:59 10/21/17 19:20 Heparin - IVPUSH 1,000 unit PRN PRN Administration Heparin Heparin Sodium (Porcine) 5,000 unit 10/20/17 17:59 10/20/17 18:13 Heparin - IVPUSH 5,000 unit PRN PRN Administration Heparin Azithromycin 500 mg/ Dextrose 250 mls @ 250 mls/hr 10/17/17 15:30 10/23/17 09 :23 IVPB 250 mls/hr DAILY SONAL Administration CEFTRIAXONE 1 G/50 ML PREMIX 50 mls @ 100 mls/hr 10/18/17 10:00 10/23/17 09: 22 Ceftriaxone 1 Gm-D5w Bag IVPB 100 mls/hr DAILY SONAL Administration HEPARIN SOD,PORK IN 0.45% NACL 25,000 units in 500 mls @ 20 mls/hr 10/20/17 18 :04 10/23/17 19:11 Heparin-1/2ns 25,000 Units/500 IVPB Not Given TITR SONAL Protocol 1,000 UNITS/HR Insulin Aspart 1 vial 10/17/17 16:30 10/23/17 16:46 Novolog Vial Sliding Scale - SQ Not Given ACHS SONAL Protocol Insulin Detemir 10 units 10/22/17 10:00 10/23/17 09:22 Levemir Vial SQ 10 units DAILY SONAL Administration Nicotine 7 mg 10/19/17 12:45 10/23/17 09:23 Nicoderm Patch - TD 7 mg DAILY SONAL Administration Prednisone 40 mg 10/24/17 10:00 Deltasone - PO DAILY SONAL IMAGIN10/23/17 CXR -> progressive congestive and infiltrative changes ASSESSMENT/PLAN: 62M with PMH of NIDDM, PUD, BPH, presents with respiratory failure, admitted to ICU for severe sepsis 2/2 CAP. # extensive DVT - s/p IVC filter on 10/20/17 - Heparin SQ changed to Heparin drip - Heme Consult - IR for possible thrombectomy tomorrow # septic shock likely 2/2 CAP - off pressors - Day 7 of IV Azithromycin and IV Ceftriaxone - ID (Dr. Owusu) recs appreciated: will finish antibiotics tomorrow - blood cultures (-) x 5 days - sputum culture (-) # acute hypoxic respiratory failure - ?ILD with pneumonitis on CTA - HFOT - continue Albuterol and Prednisone # MIRLANDE - likely 2/2 sepsis - avoid nephrotoxic agents - monitor UOP and Cr # macrocytic anemia - stable - continue to monitor # NIDDM - BGMs - blood glucose rising 2/2 steroids - Novolog SSI - Levemir 10U daily added # BPH - continue home med of Flomax # FEN - Fluids: NS @ 75 ml/hr - Electrolytes: wnl, continue to monitor - Nutrition: diabetic diet Visit type - Emergency Visit Emergency Visit: Yes ED Registration Date: 10/17/17 Care time: The patient presented to the Emergency Department on the above date and was hospitalized for further evaluation of their emergent condition. - New Patient This patient is new to me today: No - Critical Care Critical Care patient: Yes Total Critical Care Time (in minutes): 45 Critical Care Statement: The care of this patient involved high complexity decision making to prevent further life threatening deterioration of the patient 's condition and/or to evaluate & treat vital organ system(s) failure or risk of failure.
[2017-10-23] MEDS: CHLORHEXIDINE GLUCONATE 4% CLEANSER FOR DECOLONIZATION TP SCH (22:04)
[2017-10-24] MEDS: ALBUTEROL SO4 2.5/IPRATROPIUM 0.5 INH SOL 3 ML VIAL.NEB. NEB PRN ×2 (05:40→21:30)
[2017-10-24] MEDS: INSULIN SLIDING SCALE (NOVOLOG) 1 VIAL SQ SCH ×4 (06:39→21:32)
--- NOTE | 2017-10-24 06:46 | MSN ---
Progress Note (short form) - Note Progress Note: Subjective: Patient was seen this morning and complains of right leg pain unchanged from yesterday. Patient reports a little bit of RUQ abdominal pain which does not bother him and has improved. Patient states coughing has been less frequent and is non-productive. Patient denies SOB, chest pain, headache. Objective: Last Vital Signs Temp Pulse Resp BP Pulse Ox 98 F 52 L 16 110/49 96 10/24/17 06:00 10/24/17 06:00 10/24/17 06:00 10/24/17 06:00 10/24/17 06:51 HEENT: Patient is a&o x3. In no acute distress. Resting comfortably. Heart: distant sound RRR. no rubs, murmurs appreciated Lungs: Diminished breath sounds. bibasilar crackles appreciated. Abdomen: soft, normoactive bowel sounds. tender to deep palpation of the RUQ. Extremities: edema and tenderness of the right calf. Unchanged from yesterday. No edema on the left LE. UE and LE pulses 2+ B/L. CBC, BMP 10/24/17 05:10 10/24/17 05:10 Intake & Output 10/21/17 10/22/17 10/23/17 10/24/17 23:59 23:59 23:59 23:59 Intake Total 1385 1150 2180 288 Output Total 1600 1800 3000 Balance -215 650 -820 288 Weight 173 lb 9.6 oz 174 lb 11.2 oz 175 lb 12.8 oz 174 lb 3.2 oz Microbiology 10/19/17 19:30 Sputum - Expectorated Gram Stain - Final 10/19/17 19:30 Sputum - Expectorated Sputum Culture - Final NORMAL RESPIRATORY TOYIN 10/17/17 10:10 Blood - Peripheral Venous Blood Culture - Final NO GROWTH AFTER 5 DAYS INCUBATION 10/17/17 10:10 Blood - Peripheral Venous Blood Culture - Final NO GROWTH AFTER 5 DAYS INCUBATION 10/17/17 13:57 Urine - Urine Clean Catch Urine Culture - Final NO GROWTH OBTAINED 10/17/17 13:57 Urine For Antigen Detection Legionella Antigen - Final 10/17/17 13:57 Urine For Antigen Detection Streptococcus pneumoniae Antigen (M - Final 10/17/17 10:25 Nasopharyngeal Swab Influenza Types A,B Antigen ([facility]) - Final 10/17/17 10:25 Nasopharyngeal Swab - Final INR, PTT INR 1.07 (0.82-1.09) 10/24/17 05:10 Abnormal Lab Results 10/23/17 10/24/17 10/24/17 05:10 05:10 05:10 RBC 2.57 L Hgb 8.5 L Hct 25.6 L MCV 99.6 H ESR 74 H PT with INR 12.10 H Anion Gap BUN Random Glucose Calcium Albumin 10/24/17 05:10 RBC Hgb Hct MCV ESR PT with INR Anion Gap 7 L BUN 36 H Random Glucose 215 H Calcium 7.9 L Albumin 2.5 L Imaging: - Chest X-ray 10/23/17: worse. Since 10/20/2017, there are progressive congestive and infiltrative findings - Chest CT 10/20/17: No CT evidence of pulmonary embolism. Diffuse bilateral nonspecific groundglass interstitial thickening - ? acute pneumonitis versus chronic interstitial lung disease. Nonspecific mediastinal and bilateral hilar lymphadenopathy. - Leg US 10/20/17: DVT noted. There is occlusive thrombosis within the common, deep and superficial femoral veins, as well as the popliteal and posterior tibial veins. These veins are incompressible, an additional sign of DVT. The greater saphenous vein is patent, however, the lesser saphenous vein is also thrombosed. - Chest X-ray 10/20/17: Since the prior study of 10/19/2017 at 0726 hours, the diffuse airspace changes persist. The patient is in a more apical lordotic projection. Follow-up recommended. The findings could represent a RDS. - Chest x-ray 10/19/17: Since 10/18/2017, the diffuse airspace changes have diminished slightly. The findings are still suggestive of possible ARDS. - Abd US 10/18/17: Moderate to marked gallbladder contraction is noted which may be physiologic in nature versus secondary to chronic cholecystitis. If clinically indicated correlate with two-week follow-up sonography with optimal pre - exam fasting. Gallbladder contraction was also described on a previous ultrasound exam of 03/25/2013. No sonographic evidence of acute cholecystitis. There is no obvious evidence of cholelithiasis allowing for previously described gallbladder contraction. No definite biliary tract dilatation is seen. The partially visualized pancreas demonstrates no gross sonographic abnormality. However, on the 2012 ultrasound study dilatation of the main pancreatic duct was described with a 0.5 cm diameter. Given this apparent finding on the prior study additional evaluation utilizing MRI/MRCP is suggested when the patient's clinical condition permits (unless already performed at a different facility). - Chest x-ray 10/18/17: Since 10/17/2017, the congestive and infiltrative changes persist. Follow-up recommended. - Chest x-ray 10/17/17: Shallow inspiration. Congestive changes, clinically correlate for CHF. No pneumothorax, or large pleural effusion is seen. Assessment/ Plan: 62yo M smoker with PMH of NIDDM, PUD, BPH admitted with respiratory failure, septic shock, CHF currently has right LE DVT. # Hypoxic respiratory failure possibly from interstitial lung dz with pneumonitis. - high flow nasal cannula - Albuterol/Ipratropium (Duoneb -) 1 amp NEB Q6H PRN SOB - Methylprednisolone Sodium Succinate (Solu-Medrol -) 40 mg IVPUSH Q8H-IV SONAL - bibasilar crackles - IV fluid stopped # RLE pain secondary to DVT - IVC filter placed on 10/20/17 - thrombectomy scheduled for today - Acetaminophen (Tylenol -) 650 mg PO Q6H PRN fever/ pain - HEPARIN SOD,PORK IN 0.45% NACL (Heparin-1/2ns 25,000 Units/500) 25,000 units in 500 mls @ 20 mls/hr IVPB TITR SONAL; 1,000 UNITS/HR # severe sepsis likely secondary to CAP - bp stable. not on pressors. - treatment for CAP day 8 - stop today: Azithromycin 500 mg/ Dextrose 250 mls @ 250 mls/hr IVPB DAILY SONAL CEFTRIAXONE 1 G/50 ML PREMIX (Ceftriaxone 1 Gm-D5w Bag) 50 mls @ 100 mls/ hr IVPB DAILY SONAL - blood cultures and sputum culture negative # RUQ abd pain possibly due to coughing. - US sound negative for concerns. # NIDDM - diabetic diet - Insulin Aspart (Novolog Vial Sliding Scale -) 1 vial SQ ACHS SONAL - Blood sugars rise due to steroids. Give Insulin Detemir (Levemir Vial) 10 units SQ DAILY SONAL # macrocytic anemia - stable - continue to monitor # BPH - continue home med of Tamsulosin 0.4mg PO daily # FEN - F: PO - E: wnl. continue to monitor - N: diabetic diet
[2017-10-24 06:49] LABS: BASO % 0.3 % (0-2.0); EOS % 0.1 % (0-4.5); HEMATOCRIT 25.6 % (35.4-49); HEMOGLOBIN 8.5 GM/dL (11.7-16.9); LYMPH % 20.7 % (8-40); MCH 33.2 pg (25.7-33.7); MCHC 33.4 g/dl (32.0-35.9); MEAN CELL VOLUME 99.6 fl (80-96); MONO % 5.6 % (3.8-10.2); NEUT % 73.3 % (42.8-82.8); PLATELET COUNT 206 K/MM3 (134-434); RBC 2.57 M/mm3 (4.00-5.60); RDW 14.5 % (11.9-15.9); WHITE BLOOD COUNT 7.5 K/mm3 (4.0-10.0)
[2017-10-24 06:57] LABS: INR 1.07 (0.82-1.09); PROTHROMBIN TIME (PATIENT) 12.1 SEC (9.98-11.88)
[2017-10-24 07:06] LABS: ALBUMIN 2.5 g/dl (3.4-5.0); ALK PHOS 81 U/L (45-117); ANION GAP 7 (8-16); BILIRUBIN,TOTAL 0.5 mg/dL (0.2-1.0); BLOOD UREA NITROGEN 36 mg/dL (7-18); CALCIUM 7.9 mg/dL (8.5-10.1); CHLORIDE 103 mmol/L (98-107); CO2 28 mmol/L (21-32); CREATININE 0.9 mg/dL (0.7-1.3); GLUCOSE,RANDOM 215 mg/dL (74-106); POTASSIUM 4.5 mmol/L (3.5-5.1); SGOT/AST 19 U/L (15-37); SGPT/ALT 17 U/L (12-78); SODIUM 138 mmol/L (136-145); TOT PROT 6.7 g/dl (6.4-8.2)
[2017-10-24] MEDS ORDERED: PT OWN MED DRAWER 7, Y5N ONE (09:24)
[2017-10-24] MEDS: AZITHROMYCIN IVPB 500 MG in DEXTROSE 5%-WATER - 250 ML IVPB SCH (09:57)
[2017-10-24] MEDS: CEFTRIAXONE 1 G/50 ML PREMIX 50 ML IVPB SCH (09:57)
[2017-10-24] MEDS: NICOTINE 7 MG/24 HOURS TOPICAL PATCH TD SCH (09:57)
[2017-10-24] MEDS: predniSONE 20 MG TABLET (UD) PO SCH (09:58)
[2017-10-24] MEDS: INSULIN DETEMIR 100 UNITS/ML MDV SQ SCH (09:58)
[2017-10-24 10:19] LABS: MAGNESIUM 2.7 mg/dL (1.8-2.4)
--- NOTE | 2017-10-24 12:55 | PN ---
Progress Note, Physician History of Present Illness: Awake, alert Breathing non-labored on high flow O2 Less cough/sputum production Afebrile on steroids - Current Medication List Current Medications: Active Medications Acetaminophen (Tylenol -) 650 mg PO Q6H PRN PRN Reason: FEVER OR PAIN Last Admin: 10/23/17 22:45 Dose: 650 mg Albuterol/Ipratropium (Duoneb -) 1 amp NEB Q6H PRN PRN Reason: SHORTNESS OF BREATH Last Admin: 10/24/17 05:40 Dose: 1 amp Chlorhexidine Gluconate (Hibiclens For Decolonization -) 1 applic TP HS SONAL Last Admin: 10/23/17 22:04 Dose: 1 applic Heparin Sodium (Porcine) (Heparin -) 1,000 unit IVPUSH PRN PRN PRN Reason: Heparin Last Admin: 10/21/17 19:20 Dose: 1,000 unit Heparin Sodium (Porcine) (Heparin -) 5,000 unit IVPUSH PRN PRN PRN Reason: Heparin Last Admin: 10/20/17 18:13 Dose: 5,000 unit Azithromycin 500 mg/ Dextrose 250 mls @ 250 mls/hr IVPB DAILY [facility] Last Admin: 10/24/17 09:57 Dose: 250 mls/hr CEFTRIAXONE 1 G/50 ML PREMIX (Ceftriaxone 1 Gm-D5w Bag) 50 mls @ 100 mls/hr IVPB DAILY [facility] Last Admin: 10/24/17 09:57 Dose: 100 mls/hr HEPARIN SOD,PORK IN 0.45% NACL (Heparin-1/2ns 25,000 Units/500) 25,000 units in 500 mls @ 20 mls/hr IVPB TITR SONAL; 1,000 UNITS/HR PRN Reason: Protocol Last Admin: 10/23/17 19:11 Dose: Not Given Insulin Aspart (Novolog Vial Sliding Scale -) 1 vial SQ ACHS SONAL PRN Reason: Protocol Last Admin: 10/24/17 10:31 Dose: 4 units Insulin Detemir (Levemir Vial) 10 units SQ DAILY [facility] Last Admin: 10/24/17 09:58 Dose: 10 units Nicotine (Nicoderm Patch -) 7 mg TD DAILY [facility] Last Admin: 10/24/17 09:57 Dose: 7 mg Prednisone (Deltasone -) 40 mg PO DAILY SONAL Last Admin: 10/24/17 09:58 Dose: 40 mg - Objective Vital Signs: Vital Signs Temperature 98.8 F 10/24/17 08:00 Pulse Rate 62 10/24/17 12:34 Respiratory Rate 20 10/24/17 10:00 Blood Pressure 110/57 10/24/17 10:00 O2 Sat by Pulse Oximetry (%) 90 L 10/24/17 12:34 Constitutional: Yes: No Distress, Cachectic Cardiovascular: Yes: Regular Rate and Rhythm, S1, S2 Respiratory: Yes: Other (+ crepitations at bases R>L Upper lung james clear) Gastrointestinal: Yes: Normal Bowel Sounds, Soft. No: Tenderness Extremities: Yes: Other (+ R LE swelling) Labs: CBC, BMP 10/24/17 05:10 10/24/17 05:10 INR, PTT INR 1.07 (0.82-1.09) 10/24/17 05:10 Assessment/Plan Interstitial lung disease ? superimposed pneumonitis Exacerbation COPD Lactic acidosis- resolved Await serologies Day #7 zithromax/ ceftriaxone Will D/C, observe Steroids/ broncodilators
--- NOTE | 2017-10-24 13:59 | PN ---
Physical Exam: SUBJECTIVE: Did well overnight on HFNC, able to titrate FiO2 to 60% and flow rate to 50 OBJECTIVE: Vital Signs Period Temp Pulse Resp BP Sys/Sutton Pulse Ox Last 24 Hr 98 F-98.8 F 48-78 16-25 106-130/46-59 90-100 GENERAL: The patient is awake, alert, and fully oriented, in no acute distress. HEAD: Normal with no signs of trauma. EYES: PERRL, extraocular movements intact, sclera anicteric, conjunctiva clear. No ptosis. ENT: Ears normal. HFNC in nares. NECK: Trachea midline, full range of motion, supple. LUNGS: Fine bilateral lower lung field crackles, no accessory muscle usage, turned down FiO2 on HFNC from 60% to 50% HEART: + JVD.Regular rate and rhythm, S1, S2 without murmur, rub or gallop. ABDOMEN: Soft, nontender, nondistended, normoactive bowel sounds, no guarding, no rebound, no hepatosplenomegaly, no masses. EXTREMITIES: 2+ pulses, warm, well-perfused,extreme swelling of right calf with TTP NEUROLOGICAL: No obvious focal deficit PSYCH: Normal mood, normal affect. SKIN: Warm, dry, normal turgor, no rashes or lesions noted Laboratory Results - last 24 hr 10/22/17 10/22/17 10/22/17 06:02 12:20 18:04 WBC RBC Hgb Hct MCV MCH MCHC RDW Plt Count MPV Neutrophils % Lymphocytes % Monocytes % Eosinophils % Basophils % PT with INR INR PTT (Actin FS) Sodium Potassium Chloride Carbon Dioxide Anion Gap BUN Creatinine Creat Clearance w eGFR POC Glucometer 310.47054 342.63501 201.59315 Random Glucose Calcium Phosphorus Magnesium Total Bilirubin AST ALT Alkaline Phosphatase Total Protein Albumin 10/22/17 10/23/17 10/24/17 20:47 06:21 05:10 WBC RBC Hgb Hct MCV MCH MCHC RDW Plt Count MPV Neutrophils % Lymphocytes % Monocytes % Eosinophils % Basophils % PT with INR INR PTT (Actin FS) 57.7 H Sodium Potassium Chloride Carbon Dioxide Anion Gap BUN Creatinine Creat Clearance w eGFR POC Glucometer 245.27137 [phone] Random Glucose Calcium Phosphorus Magnesium Total Bilirubin AST ALT Alkaline Phosphatase Total Protein Albumin 10/24/17 10/24/17 10/24/17 05:10 05:10 05:10 WBC 7.5 RBC 2.57 L Hgb 8.5 L Hct 25.6 L MCV 99.6 H MCH 33.2 MCHC 33.4 RDW 14.5 Plt Count 206 D MPV 10.0 Neutrophils % 73.3 Lymphocytes % 20.7 Monocytes % 5.6 Eosinophils % 0.1 D Basophils % 0.3 PT with INR 12.10 H INR 1.07 PTT (Actin FS) Sodium 138 Potassium 4.5 Chloride 103 Carbon Dioxide 28 Anion Gap 7 L BUN 36 H Creatinine 0.9 Creat Clearance w eGFR > 60 POC Glucometer Random Glucose 215 H Calcium 7.9 L Phosphorus 3.0 Magnesium 2.7 H Total Bilirubin 0.5 D AST 19 ALT 17 Alkaline Phosphatase 81 Total Protein 6.7 Albumin 2.5 L 10/24/17 05:10 WBC RBC Hgb Hct MCV MCH MCHC RDW Plt Count MPV Neutrophils % Lymphocytes % Monocytes % Eosinophils % Basophils % PT with INR INR PTT (Actin FS) Sodium Potassium Chloride Carbon Dioxide Anion Gap BUN Creatinine Creat Clearance w eGFR POC Glucometer Random Glucose Calcium Phosphorus Cancelled Magnesium Cancelled Total Bilirubin AST ALT Alkaline Phosphatase Total Protein Albumin Active Medications Generic Name Dose Route Start Last Admin Trade Name Freq PRN Reason Stop Dose Admin Acetaminophen 650 mg 10/19/17 22:58 10/23/17 22:45 Tylenol - PO 650 mg Q6H PRN Administration FEVER OR PAIN Albuterol/Ipratropium 1 amp 10/20/17 14:59 10/24/17 05:40 Duoneb - NEB 1 amp Q6H PRN Administration SHORTNESS OF BREATH Chlorhexidine Gluconate 1 applic 10/17/17 22:00 10/23/17 22:04 Hibiclens For Decolonization - TP 1 applic HS SONAL Administration Heparin Sodium (Porcine) 1,000 unit 10/20/17 17:59 10/21/17 19:20 Heparin - IVPUSH 1,000 unit PRN PRN Administration Heparin Heparin Sodium (Porcine) 5,000 unit 10/20/17 17:59 10/20/17 18:13 Heparin - IVPUSH 5,000 unit PRN PRN Administration Heparin HEPARIN SOD,PORK IN 0.45% NACL 25,000 units in 500 mls @ 20 mls/hr 10/20/17 18 :04 10/23/17 19:11 Heparin-1/2ns 25,000 Units/500 IVPB Not Given TITR SONAL Protocol 1,000 UNITS/HR Insulin Aspart 1 vial 10/17/17 16:30 10/24/17 10:31 Novolog Vial Sliding Scale - SQ 4 units ACHS SONAL Administration Protocol Insulin Detemir 10 units 10/22/17 10:00 10/24/17 09:58 Levemir Vial SQ 10 units DAILY SONAL Administration Nicotine 7 mg 10/19/17 12:45 10/24/17 09:57 Nicoderm Patch - TD 7 mg DAILY SONAL Administration Prednisone 40 mg 10/24/17 10:00 10/24/17 09:58 Deltasone - PO 40 mg DAILY SONAL Administration Microbiology 10/21/17 06:00 Serum Cryptococcal Antigen - Final 10/19/17 19:30 Sputum - Expectorated Gram Stain - Final 10/19/17 19:30 Sputum - Expectorated Sputum Culture - Final NORMAL RESPIRATORY OTYIN 10/17/17 10:10 Blood - Peripheral Venous Blood Culture - Final NO GROWTH AFTER 5 DAYS INCUBATION 10/17/17 10:10 Blood - Peripheral Venous Blood Culture - Final NO GROWTH AFTER 5 DAYS INCUBATION 10/17/17 13:57 Urine - Urine Clean Catch Urine Culture - Final NO GROWTH OBTAINED 10/17/17 13:57 Urine For Antigen Detection Legionella Antigen - Final 10/17/17 13:57 Urine For Antigen Detection Streptococcus pneumoniae Antigen (M - Final 10/17/17 10:25 Nasopharyngeal Swab Influenza Types A,B Antigen ([facility]) - Final 10/17/17 10:25 Nasopharyngeal Swab - Final ASSESSMENT/PLAN: Patient is a 62 year old male who was BIBEMS for hypoxic respiratory failure placed now in between BiPap and HFNC, eating food, off of pressers, but with RLE DVT without PE as/p IVC filter and pending IR thrombectomy today. Neuro: #Nicotine Dependence: - Nicotine patch 7 MG daily (1-2 cig per day smoker) CV: #Septic Shock vs. iatrogenic hypovolemic shock vs. cardiogenic shock: original presentation - Tachycardia of 105, Respiratory rate 26, Fever of 101, WBC of 11.7, Hypotension with SBP <90 with no response to IV fluids, and Lactic Acidosis of 3.6. Source unclear but likely PNA. Off pressers - Resolved off Bipap - CTM #DVT: U/S positive for Right calf DVT - 4 days s/p IVC filter pending thrombectomy this afternoon - Continue hep drip Pulm: #Acute Hypoxic Respiratory Failure: Legionalla and strep negative. Zosyn and Vancomycin given in ED. Patient denies any recent hospitalization or abx use. Original chest X-ray reveals bilateral multifocal inflammatory changes (ARDS) vs. congestive heart failure. given JVD and crackles it is likely the later. Still will treat for CAP. ECHO showing mild mitral regurg, mild/mod tricuspid regurg, mild PHTN - Repeat XR unchanged - CT demonstrating diffuse interstitial lung disease with GGOs - Continue Prednisone 40 daily - Abx per ID section - Tylenol 1000mg IVP PRN for fevers - Elevated HOB - F/U Blood cultures pending - No need for Lasix today as he is autodiuresing and no crackles - Doing well on HFNC, will titrate down and attempt transition to venti-mask as he improves ID: likely ILD with GGO vs. infectious pattern. HIV, influenza, strep, legionella neg. BCx NGTD, sputum Cx NGTD. - Last day of Azithromycin 500mg Daily and Ceftriaxone 1gm QD for CAP per ID - Follow up cryptococcal antigen - ID recs appreciated Renal: #Acute Kidney Injury: Was resolved but then re-elevated after lasix x 2 days - Resolved - CTM - Avoid nephrotoxic medications Heme: #Macrocytic Anemia: Hemoglobin 9.2 with MCV 101. Ferritin 882 (likely reactive) - Slightly downtrending Endo #NIDDM: -BGM -ISS : #BPH -Patient on Tamsulosin 0.4mg daily GI: #Peptic Ulcer Disease -History of mesh according to family and had Endoscopy two months -Was given medications according to patients daughter and completed course FEN -hold fluids due to pulmonary congestion -Electrolytes wnl -Diabetic diet while on HFNC PPX: -High risk. Heparin 5000 units sq Q8H -No GI required Disposition -Full code -Patient requiring hfnc , and hep drip for DVT pending thromectomy Visit type - Emergency Visit Emergency Visit: No - New Patient This patient is new to me today: No - Critical Care Critical Care patient: Yes Total Critical Care Time (in minutes): 35 Critical Care Statement: The care of this patient involved high complexity decision making to prevent further life threatening deterioration of the patient 's condition and/or to evaluate & treat vital organ system(s) failure or risk of failure. - Discharge Referral Referred to [facility] No
--- NOTE | 2017-10-24 14:39 | PN ---
Teaching Attending Note Name of Resident: Jaxson Echevarria ATTENDING PHYSICIAN STATEMENT I saw and evaluated the patient. I reviewed the resident's note and discussed the case with the resident. I agree with the resident's findings and plan as documented. SUBJECTIVE: Pt seen and examined in the ICU. Remains on high flow O2 with 50L/min and 60% fiO2. Attempted to decrease flow rate and FiO2 with subsequent desaturations. OBJECTIVE: Last Vital Signs Temp Pulse Resp BP Pulse Ox 98.8 F 62 18 117/59 90 L 10/24/17 08:00 10/24/17 12:34 10/24/17 12:00 10/24/17 12:00 10/24/17 12:34 Intake & Output 10/21/17 10/22/17 10/23/17 10/24/17 23:59 23:59 23:59 23:59 Intake Total 1385 1150 2180 288 Output Total 1600 1800 3000 Balance -215 -650 -820 288 Weight 78.744 kg 79.243 kg 79.742 kg 79.016 kg Gen: mildly tachypneic on HFOT Heart: RRR Lung: bibasilar rales Abd: soft, nontender Ext: no edema CBC, BMP 10/24/17 05:10 10/24/17 05:10 Active Medications Acetaminophen (Tylenol -) 650 mg PO Q6H PRN PRN Reason: FEVER OR PAIN Last Admin: 10/23/17 22:45 Dose: 650 mg Albuterol/Ipratropium (Duoneb -) 1 amp NEB Q6H PRN PRN Reason: SHORTNESS OF BREATH Last Admin: 10/24/17 05:40 Dose: 1 amp Chlorhexidine Gluconate (Hibiclens For Decolonization -) 1 applic TP HS SONAL Last Admin: 10/23/17 22:04 Dose: 1 applic Heparin Sodium (Porcine) (Heparin -) 1,000 unit IVPUSH PRN PRN PRN Reason: Heparin Last Admin: 10/21/17 19:20 Dose: 1,000 unit Heparin Sodium (Porcine) (Heparin -) 5,000 unit IVPUSH PRN PRN PRN Reason: Heparin Last Admin: 10/20/17 18:13 Dose: 5,000 unit HEPARIN SOD,PORK IN 0.45% NACL (Heparin-1/2ns 25,000 Units/500) 25,000 units in 500 mls @ 20 mls/hr IVPB TITR SONAL; 1,000 UNITS/HR PRN Reason: Protocol Last Admin: 10/23/17 19:11 Dose: Not Given Insulin Aspart (Novolog Vial Sliding Scale -) 1 vial SQ ACHS SONAL PRN Reason: Protocol Last Admin: 10/24/17 10:31 Dose: 4 units Insulin Detemir (Levemir Vial) 10 units SQ DAILY [facility] Last Admin: 10/24/17 09:58 Dose: 10 units Nicotine (Nicoderm Patch -) 7 mg TD DAILY [facility] Last Admin: 10/24/17 09:57 Dose: 7 mg Prednisone (Deltasone -) 40 mg PO DAILY [facility] Last Admin: 10/24/17 09:58 Dose: 40 mg ASSESSMENT AND PLAN: Acute Hypoxic Respiratory Failure Pneumonia Sepsis Acute Diastolic Heart Failure improved Acute Kidney Injury improving Lactic Acidosis resolved DM RLE DVT - antibiotics per ID - continue steroids - titrate FiO2, flow rate to keep SpO2 >90% - would hold off on lasix - monitor urine output, creatinine - continue anticoagulation, for thrombectomy today - PO as tolerated - continue ICU monitoring for tenuous respiratory status critical care time spent in reviewing chart, evaluating patient and formulating plan 35 min Problem List - Problems (1) Acute respiratory failure with hypoxia Code(s): J96.01 - ACUTE RESPIRATORY FAILURE WITH HYPOXIA (2) Pneumonia Code(s): J18.9 - PNEUMONIA, UNSPECIFIED ORGANISM (3) Diabetes Code(s): E11.9 - TYPE 2 DIABETES MELLITUS WITHOUT COMPLICATIONS
[2017-10-24] MEDS ORDERED: SODIUM CHLORIDE NR ONE (14:45)
[2017-10-24] MEDS ORDERED: ALTEPLASE NR ONE (14:45)
[2017-10-24 16:23] LABS: TOTAL PROTEIN, URINE 144.7 mg/dL (Not Estab.)
[2017-10-24] MEDS ORDERED: HEPARIN INFUSION - 25,000 UNITS/500 ML INFUS.BAG IVPB ONE (17:44)
--- NOTE | 2017-10-24 17:49 | PN ---
Teaching Attending Note Name of Resident: Mimi Pizarro ATTENDING PHYSICIAN STATEMENT I saw and evaluated the patient. I reviewed the resident's note and discussed the case with the resident. I agree with the resident's findings and plan as documented. SUBJECTIVE:continues to have cough but improved. continues to have RLE pain but improved with pain medication. denies Cp, SOB, fever, chills, N/V/C/D OBJECTIVE: Last Vital Signs Temp Pulse Resp BP Pulse Ox 98.8 F 58 L 24 135/63 100 10/24/17 08:00 10/24/17 17:37 10/24/17 17:37 10/24/17 17:37 10/24/17 17:37 General NAD CV S1 s2 RRR no murmur/rub/gallop Lungs coarse breath sounds, R base crackles Abdomen soft NT/ND Extremities RLE edema and tender. LLE no edema or tender ASSESSMENT AND PLAN: 62 yo M active smoker, pMHx of NIDDM, PUD, BPH admitted with acute hypoxic respiratory failure, and extensive RLE DVT 1.Acute hypoxic respiratory failure, suspect from ?ILD with pneumonitis- unknown eitology. has hx of smoking. currently 100% on high dose Oxygen. some crackles on exam. will d/c IVF. consider lasix if does not improve. on pred 40mg. slow taper. titrate down oxygen as tolerated. 2. Extensive RLE DVT- s/p IVC filter 10/20. plan for thrombectomy today. on heparin ggt. 3. severe sepsis due to PNA- afebrile. lactic acidosis resolved. on Ceftriaxone/ Azithromycin. today day 7. will d/c abx course today 4. thrombocytopenia- likely due to sepsis. resolved 5. Acute diasoltic CHF failure- developing crackles hwoever was on IVF due to severe sepsis. will now d/c IVF. if does not improve. consider lasix. echo reported noted 5. MIRLANDE from sepsis- resolved. avoid nephrotoxic agents 6. DM- controlled. A1c 7.4. hold oral hypoglycemics. on iss 7. BPH- on flomax 8. continuous nicotine dependence- nicotine patch 9. MICU monitoring 10. spoke with daughter present at bedside with permission from patient. updated on current events and plan. all questions answered. verbalized understanding and agreement with plan. The care of this patient involved high complexity decision making to prevent further life threatening deterioration of the patient's condition and/or to evaluate & treat vital organ system(s) failure or risk of failure. 45 minutes
--- NOTE | 2017-10-24 20:57 | PN ---
Physical Exam: SUBJECTIVE: Patient seen and examined. Pt c/o Right LE pain and swelling. Pt reports cough is improved, and still reports some mild RUQ pain with coughing. Pt denies chest pain, sob, abdominal pain, fever, chills. OBJECTIVE: Vital Signs Period Temp Pulse Resp BP Sys/Sutton Pulse Ox Last 24 Hr 98 F-98.8 F 48-78 16-26 106-150/46-86 90-100 GENERAL: The patient is awake, alert, and fully oriented, in no acute distress. LUNGS: Bibasilar crackles. HEART: Regular rate and rhythm, S1, S2 without murmur, rub or gallop. ABDOMEN: Soft, nontender, nondistended, no guarding. EXTREMITIES: Right LE with swelling, warmth and tenderness to palpation. PSYCH: Normal mood, normal affect. SKIN: Warm, dry, normal turgor, no rashes or lesions noted Laboratory Results - last 24 hr 10/21/17 10/21/17 10/21/17 05:50 05:50 10:05 WBC RBC Hgb Hct MCV MCH MCHC RDW Plt Count MPV Neutrophils % Lymphocytes % Monocytes % Eosinophils % Basophils % PT with INR INR PTT (Actin FS) Sodium Potassium Chloride Carbon Dioxide Anion Gap BUN Creatinine Creat Clearance w eGFR Random Glucose Calcium Phosphorus Magnesium Total Bilirubin AST ALT Alkaline Phosphatase Total Protein Albumin Kckta-6-Xhgvbwdvo (%) 7.2 Vjgqh-4-Mniekamrd (%) 11.5 Beta Globulins (%) 19.1 Gamma Globulins (%) 28.1 M-Errol % Not observed Urine Total Protein 144.7 Urine PEP Interpret 34.0 Hep-Induced Plt Ab Rapid 0.473 H TB Test (QFT) Indeterminate Ref Test Comments 10/24/17 10/24/17 10/24/17 05:10 05:10 05:10 WBC 7.5 RBC 2.57 L Hgb 8.5 L Hct 25.6 L MCV 99.6 H MCH 33.2 MCHC 33.4 RDW 14.5 Plt Count 206 D MPV 10.0 Neutrophils % 73.3 Lymphocytes % 20.7 Monocytes % 5.6 Eosinophils % 0.1 D Basophils % 0.3 PT with INR 12.10 H INR 1.07 PTT (Actin FS) 57.7 H Sodium Potassium Chloride Carbon Dioxide Anion Gap BUN Creatinine Creat Clearance w eGFR Random Glucose Calcium Phosphorus Magnesium Total Bilirubin AST ALT Alkaline Phosphatase Total Protein Albumin Zvfhf-8-Degdyluwf (%) Vybpd-9-Zfoscrelv (%) Beta Globulins (%) Gamma Globulins (%) M-Errol % Urine Total Protein Urine PEP Interpret Hep-Induced Plt Ab Rapid TB Test (QFT) Ref Test Comments 10/24/17 10/24/17 05:10 05:10 WBC RBC Hgb Hct MCV MCH MCHC RDW Plt Count MPV Neutrophils % Lymphocytes % Monocytes % Eosinophils % Basophils % PT with INR INR PTT (Actin FS) Sodium 138 Potassium 4.5 Chloride 103 Carbon Dioxide 28 Anion Gap 7 L BUN 36 H Creatinine 0.9 Creat Clearance w eGFR > 60 Random Glucose 215 H Calcium 7.9 L Phosphorus 3.0 Cancelled Magnesium 2.7 H Cancelled Total Bilirubin 0.5 D AST 19 ALT 17 Alkaline Phosphatase 81 Total Protein 6.7 Albumin 2.5 L Zzhwa-9-Hxideqpiy (%) Tetcf-1-Dcyidzfbs (%) Beta Globulins (%) Gamma Globulins (%) M-Errol % Urine Total Protein Urine PEP Interpret Hep-Induced Plt Ab Rapid TB Test (QFT) Ref Test Comments Active Medications Generic Name Dose Route Start Last Admin Trade Name Freq PRN Reason Stop Dose Admin Acetaminophen 650 mg 10/19/17 22:58 10/23/17 22:45 Tylenol - PO 650 mg Q6H PRN Administration FEVER OR PAIN Albuterol/Ipratropium 1 amp 10/20/17 14:59 10/24/17 05:40 Duoneb - NEB 1 amp Q6H PRN Administration SHORTNESS OF BREATH Chlorhexidine Gluconate 1 applic 10/17/17 22:00 10/23/17 22:04 Hibiclens For Decolonization - TP 1 applic HS SONAL Administration Heparin Sodium (Porcine) 1,000 unit 10/20/17 17:59 10/21/17 19:20 Heparin - IVPUSH 1,000 unit PRN PRN Administration Heparin Heparin Sodium (Porcine) 5,000 unit 10/20/17 17:59 10/20/17 18:13 Heparin - IVPUSH 5,000 unit PRN PRN Administration Heparin HEPARIN SOD,PORK IN 0.45% NACL 25,000 units in 500 mls @ 20 mls/hr 10/20/17 18 :04 10/23/17 19:11 Heparin-1/2ns 25,000 Units/500 IVPB Not Given TITR SONAL Protocol 1,000 UNITS/HR Insulin Aspart 1 vial 10/17/17 16:30 10/24/17 18:49 Novolog Vial Sliding Scale - SQ Not Given ACHS [facility] Protocol Insulin Detemir 10 units 10/22/17 10:00 10/24/17 09:58 Levemir Vial SQ 10 units DAILY [facility] Administration Nicotine 7 mg 10/19/17 12:45 10/24/17 09:57 Nicoderm Patch - TD 7 mg DAILY [facility] Administration Prednisone 40 mg 10/24/17 10:00 10/24/17 09:58 Deltasone - PO 40 mg DAILY [facility] Administration IMAGIN10/24/17 CXR -> persistent congestive and infiltrative changes ASSESSMENT/PLAN: 62M active smoker with PMH of NIDDM, PUD, BPH, presents with respiratory failure , admitted to ICU for severe sepsis 2/2 CAP and acute hypoxic respiratory failure. # extensive Right LE DVT - s/p IVC filter on 10/20/17, s/p thrombectomy today with IR - Heparin SQ changed to Heparin drip # severe sepsis likely 2/2 CAP - Day 7 of IV Azithromycin and IV Ceftriaxone, will D/C - cryptococcal antigen (-) - crackles on exam -> IVFs D/Osei # acute hypoxic respiratory failure - Interstitial Lung Disease with ? superimposed pneumonitis vs COPD exacerbation - HFOT - continue Albuterol and Prednisone # macrocytic anemia - stable - continue to monitor # NIDDM - BGMs - blood glucose rising 2/2 steroids - Novolog SSI - Levemir 10U daily # BPH - continue home med of Flomax # FEN - Fluids: po - Electrolytes: wnl, continue to monitor - Nutrition: diabetic diet # Prophylaxis - DVT ppx with Heparin drip Visit type - Emergency Visit Emergency Visit: Yes ED Registration Date: 10/17/17 Care time: The patient presented to the Emergency Department on the above date and was hospitalized for further evaluation of their emergent condition. - New Patient This patient is new to me today: No - Critical Care Critical Care patient: Yes Total Critical Care Time (in minutes): 45 Critical Care Statement: The care of this patient involved high complexity decision making to prevent further life threatening deterioration of the patient 's condition and/or to evaluate & treat vital organ system(s) failure or risk of failure.
[2017-10-24] MEDS: HEPARIN SOD,PORK IN 0.45% NACL 25,000 UNITS/500 ML INFUS.BAG IVPB SCH (21:31)
[2017-10-24] MEDS: CHLORHEXIDINE GLUCONATE 4% CLEANSER FOR DECOLONIZATION TP SCH (21:32)
[2017-10-25] MEDS: ALBUTEROL SO4 2.5/IPRATROPIUM 0.5 INH SOL 3 ML VIAL.NEB. NEB PRN ×2 (04:41→21:15)
[2017-10-25] MEDS: INSULIN SLIDING SCALE (NOVOLOG) 1 VIAL SQ SCH ×4 (06:38→21:36)
[2017-10-25 06:47] LABS: BASO % 0.2 % (0-2.0); EOS % 1.9 % (0-4.5); HEMATOCRIT 26.2 % (35.4-49); HEMOGLOBIN 8.5 GM/dL (11.7-16.9); LYMPH % 14.1 % (8-40); MCHC 32.6 g/dl (32.0-35.9); MEAN CELL VOLUME 101.1 fl (80-96); MEAN PLT VOLUME 9.6 fl (7.5-11.1); MONO % 2.4 % (3.8-10.2); NEUT % 81.4 % (42.8-82.8); PLATELET COUNT 164 K/MM3 (134-434); RBC 2.59 M/mm3 (4.00-5.60); RDW 15.3 % (11.9-15.9); WHITE BLOOD COUNT 11.1 K/mm3 (4.0-10.0)
[2017-10-25 07:03] LABS: INR 1.05 (0.82-1.09); PROTHROMBIN TIME (PATIENT) 11.9 SEC (9.98-11.88)
[2017-10-25 07:22] LABS: ANION GAP 9 (8-16); BLOOD UREA NITROGEN 28 mg/dL (7-18); CALCIUM 7.4 mg/dL (8.5-10.1); CHLORIDE 105 mmol/L (98-107); CO2 23 mmol/L (21-32); CREATININE 0.8 mg/dL (0.7-1.3); GLUCOSE,RANDOM 137 mg/dL (74-106); MAGNESIUM 2.1 mg/dL (1.8-2.4); POTASSIUM 3.8 mmol/L (3.5-5.1); SODIUM 137 mmol/L (136-145)
[2017-10-25] MEDS ORDERED: PT OWN MED DRAWER 7, Y5N ONE ×3 (08:03→09:24)
--- NOTE | 2017-10-25 08:29 | PN ---
Physical Exam: SUBJECTIVE: Patient seen and examined. Pt c/o Right LE pain and swelling. Pt denies chest pain, sob, abdominal pain, fever, chills. No events overnight. OBJECTIVE: Vital Signs Period Temp Pulse Resp BP Sys/Sutton Pulse Ox Last 24 Hr 98 F-98.4 F 56-78 18-26 103-150/48-86 90-100 GENERAL: The patient is awake, alert, and fully oriented, in no acute distress. LUNGS: Bibasilar crackles. HEART: Regular rate and rhythm, S1, S2 without murmur, rub or gallop. ABDOMEN: Soft, nontender, nondistended, no guarding. EXTREMITIES: Right LE with swelling, warmth and tenderness to palpation. Left LE no edema. 2+ pulses pamela. PSYCH: Normal mood, normal affect. SKIN: Warm, dry, normal turgor, no rashes or lesions noted Laboratory Results - last 24 hr 10/20/17 10/21/17 10/21/17 17:45 05:50 05:50 WBC RBC Hgb Hct MCV MCH MCHC RDW Plt Count MPV Neutrophils % Lymphocytes % Monocytes % Eosinophils % Basophils % PT with INR INR PTT (Actin FS) Sodium Potassium Chloride Carbon Dioxide Anion Gap BUN Creatinine Random Glucose Calcium Phosphorus Magnesium Jawic-8-Tabfklsmd (%) Rnioe-2-Lwqevudor (%) Beta Globulins (%) Gamma Globulins (%) M-Errol % Urine Total Protein Urine PEP Interpret Hep-Induced Plt Ab Rapid 0.440 H 0.473 H CMV DNA Qual PCR TB Test (QFT) Indeterminate Ref Test Comments 10/21/17 10/21/17 10/25/17 05:50 10:05 06:25 WBC RBC Hgb Hct MCV MCH MCHC RDW Plt Count MPV Neutrophils % Lymphocytes % Monocytes % Eosinophils % Basophils % PT with INR INR PTT (Actin FS) 55.1 H Sodium Potassium Chloride Carbon Dioxide Anion Gap BUN Creatinine Random Glucose Calcium Phosphorus Magnesium Ojlgt-2-Mompzqyqc (%) 7.2 Sirce-6-Mmpdpalkj (%) 11.5 Beta Globulins (%) 19.1 Gamma Globulins (%) 28.1 M-Errol % Not observed Urine Total Protein 144.7 Urine PEP Interpret 34.0 Hep-Induced Plt Ab Rapid CMV DNA Qual PCR Negative TB Test (QFT) Ref Test Comments 10/25/17 10/25/1710/25/18 06:25 06:25 06:25 WBC 11.1 H D RBC 2.59 L Hgb 8.5 L Hct 26.2 L MCV 101.1 H MCH 33.0 MCHC 32.6 RDW 15.3 Plt Count 164 D MPV 9.6 Neutrophils % 81.4 Lymphocytes % 14.1 D Monocytes % 2.4 L Eosinophils % 1.9 D Basophils % 0.2 PT with INR 11.90 H INR 1.05 PTT (Actin FS) Sodium 137 Potassium 3.8 Chloride 105 Carbon Dioxide 23 Anion Gap 9 BUN 28 H D Creatinine 0.8 Random Glucose 137 H D Calcium 7.4 L Phosphorus 2.0 L D Magnesium 2.1 D Pmhzf-1-Wybfolgeb (%) Ikcqa-1-Xwffwyvci (%) Beta Globulins (%) Gamma Globulins (%) M-Errol % Urine Total Protein Urine PEP Interpret Hep-Induced Plt Ab Rapid CMV DNA Qual PCR TB Test (QFT) Ref Test Comments Active Medications Generic Name Dose Route Start Last Admin Trade Name Freq PRN Reason Stop Dose Admin Acetaminophen 650 mg 10/19/17 22:58 10/23/17 22:45 Tylenol - PO 650 mg Q6H PRN Administration FEVER OR PAIN Albuterol/Ipratropium 1 amp 10/20/17 14:59 10/25/17 04:41 Duoneb - NEB 1 amp Q6H PRN Administration SHORTNESS OF BREATH Chlorhexidine Gluconate 1 applic 10/17/17 22:00 10/24/17 21:32 Hibiclens For Decolonization - TP 1 applic HS SONAL Administration Heparin Sodium (Porcine) 1,000 unit 10/20/17 17:59 10/21/17 19:20 Heparin - IVPUSH 1,000 unit PRN PRN Administration Heparin Heparin Sodium (Porcine) 5,000 unit 10/20/17 17:59 10/20/17 18:13 Heparin - IVPUSH 5,000 unit PRN PRN Administration Heparin HEPARIN SOD,PORK IN 0.45% NACL 25,000 units in 500 mls @ 20 mls/hr 10/20/17 18 :04 10/24/17 21:31 Heparin-1/2ns 25,000 Units/500 IVPB Not Given TITR [facility]ON[facility] Protocol 1,000 UNITS/HR Insulin Aspart 1 vial 10/17/17 16:30 10/25/17 06:38 Novolog Vial Sliding Scale - SQ Not Given [facility] Protocol Insulin Detemir 10 units 10/22/17 10:00 10/24/17 09:58 Levemir Vial SQ 10 units DAILY [facility] Administration Nicotine 7 mg 10/19/17 12:45 10/24/17 09:57 Nicoderm Patch - TD 7 mg DAILY [facility] Administration Pantoprazole Sodium 40 mg 10/25/17 10:00 Protonix - PO DAILY [facility] Potassium Phos/Sodium Phos 2 packet 10/25/17 10:00 Phos-Nak Packet - PO 10/25/17 22:01 BID SONAL Prednisone 40 mg 10/24/17 10:00 10/24/17 09:58 Deltasone - PO 40 mg DAILY [facility] Administration IMAGIN10/25/17 CXR -> diffuse interstitial and alveolar changes have increased somewhat , which has the appearance of chronic and acute changes. ASSESSMENT/PLAN: 62M active smoker with PMH of NIDDM, PUD, BPH, presents with respiratory failure , admitted to ICU for severe sepsis 2/2 CAP and acute hypoxic respiratory failure. # extensive Right LE DVT - s/p IVC filter on 10/20/17, s/p thrombectomy with IR on 10/24/17 - Heparin infusing through 2 ports on Right LE - PTT therapeutic - pain controlled with Tylenol prn # acute hypoxic respiratory failure - possibly 2/2 Interstitial Lung Disease with ?superimposed pneumonitis vs COPD exacerbation - HFOT - FiO2 60 - titrate down oxygen as tolerated - continue Duoneb prn - Prednisone taper to 40mg for today - crackles on exam -> D/C IVFs that were initiated post-procedure # severe sepsis likely 2/2 CAP - s/p 7 days of IV antibiotics - mild leukocytosis noted - likely 2/2 post-procedure (thrombectomy) and/or steroids # macrocytic anemia - stable - continue to monitor # NIDDM - BGMs - Novolog SSI - Levemir 10U daily # nicotine dependence - Nicoderm patch 7mg daily # hypophosphatemia - repleted with 2 packets of Phos-NaK # FEN - Fluids: po - Electrolytes: continue to monitor - Nutrition: diabetic diet # Prophylaxis - DVT ppx with Heparin drip - GI ppx with Protonix 40mg daily Visit type - Emergency Visit Emergency Visit: Yes ED Registration Date: 10/17/17 Care time: The patient presented to the Emergency Department on the above date and was hospitalized for further evaluation of their emergent condition. - New Patient This patient is new to me today: No - Critical Care Critical Care patient: Yes Total Critical Care Time (in minutes): 45 Critical Care Statement: The care of this patient involved high complexity decision making to prevent further life threatening deterioration of the patient 's condition and/or to evaluate & treat vital organ system(s) failure or risk of failure.
[2017-10-25] MEDS: ACETAMINOPHEN 325 MG TABLET (FP) PO PRN ×2 (09:09→21:12)
[2017-10-25] MEDS: predniSONE 20 MG TABLET (UD) PO SCH (09:10)
[2017-10-25] MEDS: NICOTINE 7 MG/24 HOURS TOPICAL PATCH TD SCH (09:10)
[2017-10-25] MEDS: INSULIN DETEMIR 100 UNITS/ML MDV SQ SCH (09:10)
--- NOTE | 2017-10-25 11:10 | MSN ---
Progress Note (short form) - Note Progress Note: Subjective: Patient was seen this morning. Patient has right leg pain which has improved since the thrombectomy and is being well managed with the pain medication. Patient states that he is still coughing. Patient denies abdominal pain, fever, N/V/D, chest pain, SOB. Objective: Last Vital Signs Temp Pulse Resp BP Pulse Ox 99.1 F 84 20 100/48 98 10/25/17 10:00 10/25/17 10:04 10/25/17 10:00 10/25/17 10:00 10/25/17 10:04 Intake & Output 10/22/17 10/23/17 10/24/17 10/25/17 23:59 23:59 23:59 23:59 Intake Total 1150 2180 1036 1634 Output Total 1800 3000 550 500 Balance -650 -250 144 8419 Weight 174 lb 11.2 oz 175 lb 12.8 oz 174 lb 3.2 oz 173 lb 6.4 oz General: Patient is in no acute distress. Lying down comfortably. HEENT: PERRLA. Dry mucous membranes. On high flow nasal canula. Heart: RRR. no rubs, murmurs or gallops appreciated Lungs: diminished breath sounds on the right. Bibasilar crackles appreciated. Abdomen: soft, normoactive bowel sounds. nontender to palpation x4 quadrants. Extremities: Edema of right calf with ports attached. No edema on left LE. Pulses 2+ B/L on UE and LE. CBC, BMP 10/25/17 06:25 10/25/17 06:25 Abnormal Lab Results 10/20/17 10/21/17 10/25/17 17:45 05:50 06:25 WBC RBC Hgb Hct MCV Monocytes % PT with INR PTT (Actin FS) 55.1 H BUN Random Glucose Calcium Phosphorus Hep-Induced Plt Ab Rapid 0.440 H 0.473 H 10/25/17 10/25/17 10/25/17 06:25 06:25 06:25 WBC 11.1 H D RBC 2.59 L Hgb 8.5 L Hct 26.2 L MCV 101.1 H Monocytes % 2.4 L PT with INR 11.90 H PTT (Actin FS) BUN 28 H D Random Glucose 137 H D Calcium 7.4 L Phosphorus 2.0 L D Hep-Induced Plt Ab Rapid Microbiology 10/21/17 06:00 Serum Cryptococcal Antigen - Final 10/19/17 19:30 Sputum - Expectorated Gram Stain - Final 10/19/17 19:30 Sputum - Expectorated Sputum Culture - Final NORMAL RESPIRATORY TOYIN 10/17/17 10:10 Blood - Peripheral Venous Blood Culture - Final NO GROWTH AFTER 5 DAYS INCUBATION 10/17/17 10:10 Blood - Peripheral Venous Blood Culture - Final NO GROWTH AFTER 5 DAYS INCUBATION 10/17/17 13:57 Urine - Urine Clean Catch Urine Culture - Final NO GROWTH OBTAINED 10/17/17 13:57 Urine For Antigen Detection Legionella Antigen - Final 10/17/17 13:57 Urine For Antigen Detection Streptococcus pneumoniae Antigen (M - Final 10/17/17 10:25 Nasopharyngeal Swab Influenza Types A,B Antigen ([facility]) - Final 10/17/17 10:25 Nasopharyngeal Swab - Final Imaging: - Chest X-ray 10/25/17: Imaging reveals diffuse interstitial and alveolar changes which have increased somewhat since 2017. This has the appearance of chronic and acute changes. - Chest x-ray 10/24/17: Since the prior set 10/23/2017 at 0751 hours there are persistent congestive and infiltrative changes - Chest X-ray 10/23/17: worse. Since 10/20/2017, there are progressive congestive and infiltrative findings - Chest CT 10/20/17: No CT evidence of pulmonary embolism. Diffuse bilateral nonspecific groundglass interstitial thickening - ? acute pneumonitis versus chronic interstitial lung disease. Nonspecific mediastinal and bilateral hilar lymphadenopathy. - Leg US 10/20/17: DVT noted. There is occlusive thrombosis within the common, deep and superficial femoral veins, as well as the popliteal and posterior tibial veins. These veins are incompressible, an additional sign of DVT. The greater saphenous vein is patent, however, the lesser saphenous vein is also thrombosed. - Chest X-ray 10/20/17: Since the prior study of 10/19/2017 at 0726 hours, the diffuse airspace changes persist. The patient is in a more apical lordotic projection. Follow-up recommended. The findings could represent a RDS. - Chest x-ray 10/19/17: Since 10/18/2017, the diffuse airspace changes have diminished slightly. The findings are still suggestive of possible ARDS. - Abd US 10/18/17: Moderate to marked gallbladder contraction is noted which may be physiologic in nature versus secondary to chronic cholecystitis. If clinically indicated correlate with two-week follow-up sonography with optimal pre - exam fasting. Gallbladder contraction was also described on a previous ultrasound exam of 03/25/2013. No sonographic evidence of acute cholecystitis. There is no obvious evidence of cholelithiasis allowing for previously described gallbladder contraction. No definite biliary tract dilatation is seen. The partially visualized pancreas demonstrates no gross sonographic abnormality. However, on the 2012 ultrasound study dilatation of the main pancreatic duct was described with a 0.5 cm diameter. Given this apparent finding on the prior study additional evaluation utilizing MRI/MRCP is suggested when the patient's clinical condition permits (unless already performed at a different facility). - Chest x-ray 10/18/17: Since 10/17/2017, the congestive and infiltrative changes persist. Follow-up recommended. - Chest x-ray 10/17/17: Shallow inspiration. Congestive changes, clinically correlate for CHF. No pneumothorax, or large pleural effusion is seen. Assessment/ Plan: 62yo M smoker with PMH of NIDDM, PUD, BPH admitted with respiratory failure, severe sepsis, CHF who had a right LE DVT s/p thrombectomy day 1. # RLE pain secondary to DVT s/p IV filter on 10/20/17 and thrombectomy on 10/24/09 - Acetaminophen (Tylenol -) 650 mg PO Q6H PRN fever/ pain - Heparin through port on R. calf - 500 units and 1100 units # Leukocytosis likely due to s/p thrombectomy day 1. or steroids. - continue to monitor - no fever # Hypoxic respiratory failure possibly from interstitial lung dz with pneumonitis, or CHF. - high flow nasal cannula - Albuterol/Ipratropium (Duoneb -) 1 amp NEB Q6H PRN SOB - tapered down to Prednisone (Deltasone -) 40 mg PO DAILY [facility] - bibasilar crackles -IV fluid restarted yesterday post thrombectomy - stop IV fluid # severe sepsis likely secondary to CAP - bp stable. not on pressors. - Azithromycin and Ceftriaxone 7 days completed on - blood cultures and sputum culture negative # RUQ abd pain possibly due to coughing. - pain resolved - US sound negative for concerns. # NIDDM - diabetic diet - Insulin Aspart (Novolog Vial Sliding Scale -) 1 vial SQ ACHS [facility]ON[facility] - Blood sugars rise due to steroids. Give Insulin Detemir (Levemir Vial) 10 units SQ DAILY [facility] # macrocytic anemia - stable - continue to monitor # BPH - continue home med of Tamsulosin 0.4mg PO daily # FEN - F: PO - E: continue to monitor - N: diabetic diet #DVT prophylaxis - heparin drip
[2017-10-25] MEDS: PANTOPRAZOLE 40 MG TABLET (FP) PO SCH (11:36)
[2017-10-25] MEDS: NAPH,MB-DB/K PH,MBDB POWDER PACKET PO SCH ×2 (11:37→21:14)
--- NOTE | 2017-10-25 12:16 | PN ---
Teaching Attending Note Name of Resident: Mimi Pizarro ATTENDING PHYSICIAN STATEMENT I saw and evaluated the patient. I reviewed the resident's note and discussed the case with the resident. I agree with the resident's findings and plan as documented. SUBJECTIVE:continues to have cough, not productive. states no real improvement in leg pain. denies Cp, fever, chills, N/V/C/D, orthopnea OBJECTIVE: Last Vital Signs Temp Pulse Resp BP Pulse Ox 99.1 F 84 20 100/48 98 10/25/17 10:00 10/25/17 10:04 10/25/17 10:00 10/25/17 10:00 10/25/17 10:04 General NAD CV S1 s2 RRR no murmur/rub/gallop Lungs B/L crackles. +rhonchi Abdomen soft NT/ND Extremities RLE edema and tender. LLE no edema or tender ASSESSMENT AND PLAN: 62 yo M active smoker, pMHx of NIDDM, PUD, BPH admitted with acute hypoxic respiratory failure, and extensive RLE DVT 1.Acute hypoxic respiratory failure, suspect from ?ILD with pneumonitis- unknown eitology. has hx of smoking. currently 100% on high dose Oxygen Fio2 reduced to 60%. was placed back on IVF after procedure yesterday. will stop at this time. on pred 40mg. slow taper. titrate down oxygen as tolerated. 2. Extensive RLE DVT- s/p IVC filter 10/20. s/p thrombectomy 10/24 with catheter directed heparin. to be removed today. will monitor for pain improvement. cont pain control. on heparin ggt. 3. severe sepsis due to PNA- afebrile. lactic acidosis resolved. completed 7 day course of abx 4. thrombocytopenia- likely due to sepsis. resolved 5. Acute diasoltic CHF failure- continues to have crackles on exam however IVF were re-started. will now stop. consider lasix if does not improve. echo reported noted 6. MIRLANDE from sepsis- resolved. avoid nephrotoxic agents 7. DM- controlled. A1c 7.4. hold oral hypoglycemics. on iss 8. BPH- on flomax 9. continuous nicotine dependence- nicotine patch 10. MICU monitoring The care of this patient involved high complexity decision making to prevent further life threatening deterioration of the patient's condition and/or to evaluate & treat vital organ system(s) failure or risk of failure. 40 minutes
--- NOTE | 2017-10-25 14:52 | PN ---
Teaching Attending Note Name of Resident: Tonio Conte ATTENDING PHYSICIAN STATEMENT I saw and evaluated the patient. I reviewed the resident's note and discussed the case with the resident. I agree with the resident's findings and plan as documented. SUBJECTIVE: Pt seen and examined in the ICU. Remains on high flow oxygen therapy. Heparin gtt infusing into right leg. OBJECTIVE: Last Vital Signs Temp Pulse Resp BP Pulse Ox 99.1 F 70 20 120/55 96 10/25/17 10:00 10/25/17 14:00 10/25/17 14:00 10/25/17 14:00 10/25/17 12:21 Intake & Output 10/22/17 10/23/17 10/24/17 10/25/17 23:59 23:59 23:59 23:59 Intake Total 1150 2180 1036 2434 Output Total 1800 3000 550 1300 Balance -650 -794 668 3986 Weight 79.243 kg 79.742 kg 79.016 kg 78.653 kg Gen: mildly tachypneic on HFOT Heart: RRR Lung: bibasilar rales Abd: soft, nontender Ext: RLE edema CBC, BMP 10/25/17 06:25 10/25/17 06:25 Active Medications Acetaminophen (Tylenol -) 650 mg PO Q6H PRN PRN Reason: FEVER OR PAIN Last Admin: 10/25/17 09:09 Dose: 650 mg Albuterol/Ipratropium (Duoneb -) 1 amp NEB Q6H PRN PRN Reason: SHORTNESS OF BREATH Last Admin: 10/25/17 04:41 Dose: 1 amp Chlorhexidine Gluconate (Hibiclens For Decolonization -) 1 applic TP HS [facility] Last Admin: 10/24/17 21:32 Dose: 1 applic Heparin Sodium (Porcine) (Heparin -) 1,000 unit IVPUSH PRN PRN PRN Reason: Heparin Last Admin: 10/21/17 19:20 Dose: 1,000 unit Heparin Sodium (Porcine) (Heparin -) 5,000 unit IVPUSH PRN PRN PRN Reason: Heparin Last Admin: 10/20/17 18:13 Dose: 5,000 unit HEPARIN SOD,PORK IN 0.45% NACL (Heparin-1/2ns 25,000 Units/500) 25,000 units in 500 mls @ 20 mls/hr IVPB TITR SONAL; 1,000 UNITS/HR PRN Reason: Protocol Last Admin: 10/24/17 21:31 Dose: Not Given Insulin Aspart (Novolog Vial Sliding Scale -) 1 vial SQ ACHS [facility] PRN Reason: Protocol Last Admin: 10/25/17 11:38 Dose: 2 units Insulin Detemir (Levemir Vial) 10 units SQ DAILY [facility] Last Admin: 10/25/17 09:10 Dose: 10 units Nicotine (Nicoderm Patch -) 7 mg TD DAILY [facility] Last Admin: 10/25/17 09:10 Dose: 7 mg Pantoprazole Sodium (Protonix -) 40 mg PO DAILY [facility] Last Admin: 10/25/17 11:36 Dose: 40 mg Potassium Phos/Sodium Phos (Phos-Nak Packet -) 2 packet PO BID [facility] Stop: 10/25/17 22:01 Last Admin: 10/25/17 11:37 Dose: 2 packet Prednisone (Deltasone -) 40 mg PO DAILY [facility] Last Admin: 10/25/17 09:10 Dose: 40 mg ASSESSMENT AND PLAN: Acute Hypoxic Respiratory Failure Pneumonia Sepsis Acute Diastolic Heart Failure improved Acute Kidney Injury improving Lactic Acidosis resolved DM RLE DVT - antibiotics per ID - continue steroids - titrate FiO2, flow rate to keep SpO2 >90% - would hold off on lasix - monitor urine output, creatinine - continue anticoagulation - PO as tolerated - continue ICU monitoring for tenuous respiratory status - may need LTAC placement critical care time spent in reviewing chart, evaluating patient and formulating plan 35 min Problem List - Problems (1) Acute respiratory failure with hypoxia Code(s): J96.01 - ACUTE RESPIRATORY FAILURE WITH HYPOXIA (2) Pneumonia Code(s): J18.9 - PNEUMONIA, UNSPECIFIED ORGANISM (3) Diabetes Code(s): E11.9 - TYPE 2 DIABETES MELLITUS WITHOUT COMPLICATIONS
--- NOTE | 2017-10-25 14:59 | PN ---
Progress Note, Physician History of Present Illness: patient seen and examined at bedside s/p RLE thrombectomy yesterday with catheter directed heparin infusion straight to the clot tolerated procedure well feels fine this morning remains on high flow nasal O2 - Current Medication List Current Medications: Active Medications Acetaminophen (Tylenol -) 650 mg PO Q6H PRN PRN Reason: FEVER OR PAIN Last Admin: 10/25/17 09:09 Dose: 650 mg Albuterol/Ipratropium (Duoneb -) 1 amp NEB Q6H PRN PRN Reason: SHORTNESS OF BREATH Last Admin: 10/25/17 04:41 Dose: 1 amp Chlorhexidine Gluconate (Hibiclens For Decolonization -) 1 applic TP HS [facility] Last Admin: 10/24/17 21:32 Dose: 1 applic Heparin Sodium (Porcine) (Heparin -) 1,000 unit IVPUSH PRN PRN PRN Reason: Heparin Last Admin: 10/21/17 19:20 Dose: 1,000 unit Heparin Sodium (Porcine) (Heparin -) 5,000 unit IVPUSH PRN PRN PRN Reason: Heparin Last Admin: 10/20/17 18:13 Dose: 5,000 unit HEPARIN SOD,PORK IN 0.45% NACL (Heparin-1/2ns 25,000 Units/500) 25,000 units in 500 mls @ 20 mls/hr IVPB TITR [facility]; 1,000 UNITS/HR PRN Reason: Protocol Last Admin: 10/24/17 21:31 Dose: Not Given Insulin Aspart (Novolog Vial Sliding Scale -) 1 vial SQ ACHS [facility] PRN Reason: Protocol Last Admin: 10/25/17 11:38 Dose: 2 units Insulin Detemir (Levemir Vial) 10 units SQ DAILY [facility] Last Admin: 10/25/17 09:10 Dose: 10 units Nicotine (Nicoderm Patch -) 7 mg TD DAILY [facility] Last Admin: 10/25/17 09:10 Dose: 7 mg Pantoprazole Sodium (Protonix -) 40 mg PO DAILY [facility] Last Admin: 10/25/17 11:36 Dose: 40 mg Potassium Phos/Sodium Phos (Phos-Nak Packet -) 2 packet PO BID [facility] Stop: 10/25/17 22:01 Last Admin: 10/25/17 11:37 Dose: 2 packet Prednisone (Deltasone -) 40 mg PO DAILY [facility] Last Admin: 10/25/17 09:10 Dose: 40 mg - Objective Vital Signs: Vital Signs Temperature 99.1 F 10/25/17 10:00 Pulse Rate 70 10/25/17 14:00 Respiratory Rate 20 10/25/17 14:00 Blood Pressure 120/55 10/25/17 14:00 O2 Sat by Pulse Oximetry (%) 96 10/25/17 12:21 GENERAL: The patient is awake, alert, and fully oriented, in no acute distress. HEAD: Normal with no signs of trauma. EYES: PERRL, extraocular movements intact, sclera anicteric, conjunctiva clear. No ptosis. ENT: Ears normal. HFNC in nares. NECK: Trachea midline, full range of motion, supple. LUNGS: Fine bilateral lower lung field crackles, no accessory muscle usage, HEART: Regular rate and rhythm, S1, S2 ABDOMEN: Soft, nontender, nondistended, EXTREMITIES: warm, right calf tender to palpation but less so than yesterday NEUROLOGICAL: No obvious focal deficit PSYCH: Normal mood, normal affect. Labs: CBC, BMP 10/25/17 06:25 10/25/17 06:25 INR, PTT INR 1.05 (0.82-1.09) 10/25/17 06:25 Assessment/Plan Patient is a 62 year old male who was BIBEMS for hypoxic respiratory failure placed now in between BiPap and HFNC, eating food, off of pressers, but with RLE DVT without PE as/p IVC filter and thrombectomy with catheter directed heparin infusion Neuro: #Nicotine Dependence: - Nicotine patch 7 MG daily CV: #Septic Shock vs. iatrogenic hypovolemic shock vs. cardiogenic shock: original presentation - Tachycardia of 105, Respiratory rate 26, Fever of 101, WBC of 11.7, Hypotension with SBP <90 with no response to IV fluids, and Lactic Acidosis of 3.6. Source unclear but likely PNA. Off pressers - Resolved off Bipap #DVT: U/S positive for Right calf DVT - s/p thrombectomy f/u IR for plan regarding stopping the heparin infusion into the clot - Continue hep drip Pulm: #Acute Hypoxic Respiratory Failure: Legionalla and strep negative. Zosyn and Vancomycin given in ED. Patient denies any recent hospitalization or abx use. Original chest X-ray reveals bilateral multifocal inflammatory changes (ARDS) vs. congestive heart failure. given JVD and crackles it is likely the later. Still will treat for CAP. ECHO showing mild mitral regurg, mild/mod tricuspid regurg, mild PHTN - Repeat XR unchanged - CT demonstrating diffuse interstitial lung disease - Continue Prednisone 40 daily continue high floe nasal O2 all cultures negative ID: likely ILD with GGO vs. infectious pattern. HIV, influenza, strep, legionella neg. BCx NGTD, sputum Cx NGTD. - Last day of Azithromycin 500mg Daily and Ceftriaxone 1gm QD for CAP per ID - ID recs appreciated all cultures negative cryptococcal antigen negative Renal: #Acute Kidney Injury: Was resolved but then re-elevated after lasix x 2 days - Resolved - CTM - Avoid nephrotoxic medications Heme: #Macrocytic Anemia: Hemoglobin 9.2 with MCV 101. Ferritin 882 (likely reactive) Hb stable at 8.5 Endo #NIDDM: -BGM -ISS : #BPH -Patient on Tamsulosin 0.4mg daily GI: #Peptic Ulcer Disease -History of mesh according to family and had Endoscopy two months -Was given medications according to patients daughter and completed course FEN -hold fluids due to pulmonary congestion -Electrolytes wnl -Diabetic diet while on HFNC PPX: -High risk. Heparin 5000 units sq Q8H start protonix as patient is on steroids Disposition -Full code -Patient requiring hfnc , protonix for GI PPx and hep drip for DVT CCTime 35 min
--- NOTE | 2017-10-25 16:30 | PN ---
Progress Note (short form) - Note Progress Note: pt seen and examined. on High flow Oxygen Denies any complains Constitutional: Yes: no distress on HFO Cardiovascular: Yes: Regular Rate and Rhythm Respiratory: Yes: Rales (scattered) Gastrointestinal: Yes: Normal Bowel Sounds, Soft. Neurological: Yes: Alert, Oriented LE: calf swelling on the right side Last Vital Signs Temp Pulse Resp BP Pulse Ox 99.1 F 75 21 110/50 94 L 10/25/17 10:00 10/25/17 16:09 10/25/17 16:09 10/25/17 16:09 10/25/17 15:21 CBC, BMP 10/25/17 06:25 10/25/17 06:25 Current Medications Generic Name Dose Route Start Last Admin Trade Name Freq PRN Reason Stop Dose Admin Acetaminophen 650 mg 10/19/17 22:58 10/25/17 09:09 Tylenol - PO 650 mg Q6H PRN Administration FEVER OR PAIN Albuterol/Ipratropium 1 amp 10/20/17 14:59 10/25/17 04:41 Duoneb - NEB 1 amp Q6H PRN Administration SHORTNESS OF BREATH Chlorhexidine Gluconate 1 applic 10/17/17 22:00 10/24/17 21:32 Hibiclens For Decolonization - TP 1 applic HS [facility] Administration Heparin Sodium (Porcine) 1,000 unit 10/20/17 17:59 10/21/17 19:20 Heparin - IVPUSH 1,000 unit PRN PRN Administration Heparin Heparin Sodium (Porcine) 5,000 unit 10/20/17 17:59 10/20/17 18:13 Heparin - IVPUSH 5,000 unit PRN PRN Administration Heparin HEPARIN SOD,PORK IN 0.45% NACL 25,000 units in 500 mls @ 20 mls/hr 10/20/17 18 :04 10/24/17 21:31 Heparin-1/2ns 25,000 Units/500 IVPB Not Given TITR [facility] Protocol 1,000 UNITS/HR Insulin Aspart 1 vial 10/17/17 16:30 10/25/17 11:38 Novolog Vial Sliding Scale - SQ 2 units ACHS [facility] Administration Protocol Insulin Detemir 10 units 10/22/17 10:00 10/25/17 09:10 Levemir Vial SQ 10 units DAILY [facility] Administration Nicotine 7 mg 10/19/17 12:45 10/25/17 09:10 Nicoderm Patch - TD 7 mg DAILY [facility] Administration Pantoprazole Sodium 40 mg 10/25/17 10:00 10/25/17 11:36 Protonix - PO 40 mg DAILY [facility] Administration Potassium Phos/Sodium Phos 2 packet 10/25/17 10:00 10/25/17 11:37 Phos-Nak Packet - PO 10/25/17 22:01 2 packet BID [facility] Administration Prednisone 40 mg 10/24/17 10:00 10/25/17 09:10 Deltasone - PO 40 mg DAILY [facility] Administration DVT on heparin drip s/p thrombectomy bridge to oral when appropriate
[2017-10-25] MEDS: HEPARIN SOD,PORK IN 0.45% NACL 25,000 UNITS/500 ML INFUS.BAG IVPB SCH (17:22)
[2017-10-25] MEDS: HEPARIN NA (PORCINE) 5,000 UNITS/ML 1ML VIAL IVPUSH PRN (21:11)
[2017-10-26 06:26] LABS: HEMATOCRIT 24.9 % (35.4-49); HEMOGLOBIN 8.1 GM/dL (11.7-16.9); MCH 33.1 pg (25.7-33.7); MCHC 32.7 g/dl (32.0-35.9); MEAN CELL VOLUME 101.2 fl (80-96); MEAN PLT VOLUME 9.4 fl (7.5-11.1); PLATELET COUNT 109 K/MM3 (134-434); RBC 2.46 M/mm3 (4.00-5.60); RDW 15.6 % (11.9-15.9); WHITE BLOOD COUNT 12.6 K/mm3 (4.0-10.0)
[2017-10-26] MEDS: ALBUTEROL SO4 2.5/IPRATROPIUM 0.5 INH SOL 3 ML VIAL.NEB. NEB PRN (06:32)
[2017-10-26 06:36] LABS: INR 1.14 (0.82-1.09); PROTHROMBIN TIME (PATIENT) 12.9 SEC (9.98-11.88)
[2017-10-26 06:57] LABS: ALBUMIN 2.2 g/dl (3.4-5.0); ALK PHOS 99 U/L (45-117); ANION GAP 8 (8-16); BILIRUBIN,TOTAL 0.5 mg/dL (0.2-1.0); BLOOD UREA NITROGEN 20 mg/dL (7-18); CALCIUM 7.2 mg/dL (8.5-10.1); CHLORIDE 107 mmol/L (98-107); CO2 25 mmol/L (21-32); CREATININE 0.7 mg/dL (0.7-1.3); GLUCOSE,RANDOM 132 mg/dL (74-106); MAGNESIUM 2.2 mg/dL (1.8-2.4); PHOSPHOROUS 1.8 mg/dL (2.5-4.9); POTASSIUM 3.5 mmol/L (3.5-5.1); SGOT/AST 18 U/L (15-37); SGPT/ALT 13 U/L (12-78); SODIUM 140 mmol/L (136-145); TOT PROT 5.8 g/dl (6.4-8.2)
[2017-10-26] MEDS: INSULIN SLIDING SCALE (NOVOLOG) 1 VIAL SQ SCH ×4 (07:00→22:40)
[2017-10-26] MEDS ORDERED: PT OWN MED DRAWER 7, Y5N ONE (10:07)
[2017-10-26] MEDS: predniSONE 20 MG TABLET (UD) PO SCH (10:09)
[2017-10-26] MEDS: INSULIN DETEMIR 100 UNITS/ML MDV SQ SCH (10:09)
[2017-10-26] MEDS: PANTOPRAZOLE 40 MG TABLET (FP) PO SCH (10:09)
[2017-10-26] MEDS: NICOTINE 7 MG/24 HOURS TOPICAL PATCH TD SCH (10:09)
--- NOTE | 2017-10-26 11:35 | PN ---
Progress Note (short form) - Note Progress Note: Pt seen and examined He feels SOB. labs reviewed O/E General: Appears dyspneic Cardiovascular: Yes: Regular Rate and Rhythm Respiratory: Yes: Rales (scattered) Gastrointestinal: Yes: Normal Bowel Sounds, Soft. Neurological: Yes: Alert, Oriented LE: calf swelling on the right side , improved, catheter removed Last Vital Signs Temp Pulse Resp BP Pulse Ox 98.2 F 73 22 110/39 97 10/26/17 02:00 10/26/17 09:00 10/26/17 06:00 10/26/17 06:00 10/26/17 09:00 CBC, BMP 10/26/17 05:15 10/26/17 05:15 Current Medications Generic Name Dose Route Start Last Admin Trade Name Freq PRN Reason Stop Dose Admin Acetaminophen 650 mg 10/19/17 22:58 10/25/17 21:12 Tylenol - PO 650 mg Q6H PRN Administration FEVER OR PAIN Albuterol/Ipratropium 1 amp 10/20/17 14:59 10/26/17 06:32 Duoneb - NEB 1 amp Q6H PRN Administration SHORTNESS OF BREATH Chlorhexidine Gluconate 1 applic 10/17/17 22:00 10/24/17 21:32 Hibiclens For Decolonization - TP 1 applic HS [facility] Administration Heparin Sodium (Porcine) 1,000 unit 10/20/17 17:59 10/21/17 19:20 Heparin - IVPUSH 1,000 unit PRN PRN Administration Heparin Heparin Sodium (Porcine) 5,000 unit 10/20/17 17:59 10/25/17 21:11 Heparin - IVPUSH 5,000 unit PRN PRN Administration Heparin HEPARIN SOD,PORK IN 0.45% NACL 25,000 units in 500 mls @ 20 mls/hr 10/20/17 18 :04 10/26/17 04:52 Heparin-1/2ns 25,000 Units/500 IVPB 1,150 units/hr TITR [facility] 23 mls/hr Protocol Titration 1,000 UNITS/HR Insulin Aspart 1 vial 10/17/17 16:30 10/26/17 07:00 Novolog Vial Sliding Scale - SQ Not Given ACHS [facility] Protocol Insulin Detemir 10 units 10/22/17 10:00 10/26/17 10:09 Levemir Vial SQ 10 units DAILY [facility] Administration Nicotine 7 mg 10/19/17 12:45 10/26/17 10:09 Nicoderm Patch - TD 7 mg DAILY [facility] Administration Pantoprazole Sodium 40 mg 10/25/17 10:00 10/26/17 10:09 Protonix - PO 40 mg DAILY [facility] Administration Prednisone 40 mg 10/24/17 10:00 10/26/17 10:09 Deltasone - PO 40 mg DAILY [facility] Administration Assessment/Plan Extensive RLE DVT -On heparin, aim for PTT of 50-65. 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 -oral NOACs once able to.(pending KAY) Thrombocytopenia: -will monitor -if trending down, will recommend to re-order the US b/l LE Acute hypoxic respiratory failure ?ILD: -On HFO, O2 sat remains low -mgmt per ICU./Pulm Nonspecific mediastinal LAD: -OP w/u
[2017-10-26] MEDS ORDERED: POTASSIUM CHLORIDE ORAL LIQUID 20 MEQ/15 ML PO ONE (11:44)
--- NOTE | 2017-10-26 11:47 | PN ---
Physical Exam: SUBJECTIVE: Patient seen and examined OBJECTIVE: Vital Signs Period Temp Pulse Resp BP Sys/Sutton Pulse Ox Last 24 Hr 98.2 F-98.4 F 60-100 19-22 94-121/39-56 94-98 GENERAL: The patient is awake, alert, and fully oriented, in no acute distress. HEAD: Normal with no signs of trauma. EYES: PERRL, extraocular movements intact, sclera anicteric, conjunctiva clear. No ptosis. ENT: Ears normal, nares patent, oropharynx clear without exudates, moist mucous membranes. NECK: Trachea midline, full range of motion, supple. LUNGS: Breath sounds equal, clear to auscultation bilaterally, no wheezes, no crackles, no accessory muscle use. HEART: Regular rate and rhythm, S1, S2 without murmur, rub or gallop. ABDOMEN: Soft, nontender, nondistended, normoactive bowel sounds, no guarding, no rebound, no hepatosplenomegaly, no masses. EXTREMITIES: 2+ pulses, warm, well-perfused, no edema. NEUROLOGICAL: Cranial nerves II through XII grossly intact. Normal speech, gait not observed. PSYCH: Normal mood, normal affect. SKIN: Warm, dry, normal turgor, no rashes or lesions noted Laboratory Results - last 24 hr 10/21/17 10/25/17 10/25/17 05:50 18:30 21:34 WBC RBC Hgb Hct MCV MCH MCHC RDW Plt Count MPV PT with INR INR PTT (Actin FS) 37.8 H D Sodium Potassium Chloride Carbon Dioxide Anion Gap BUN Creatinine Creat Clearance w eGFR POC Glucometer [phone] Random Glucose Calcium Phosphorus Magnesium Total Bilirubin AST ALT Alkaline Phosphatase Total Protein Albumin Urine Histoplasma Ag <0.5 A. galactomannan Ag 0.11 Beta-(1,3)-D-Glucan 10/26/17 10/26/17 10/26/17 03:15 05:10 05:15 WBC 12.6 H RBC 2.46 L Hgb 8.1 L Hct 24.9 L MCV 101.2 H MCH 33.1 MCHC 32.7 RDW 15.6 Plt Count 109 L D MPV 9.4 PT with INR INR PTT (Actin FS) 96.6 H D 56.3 H D Sodium Potassium Chloride Carbon Dioxide Anion Gap BUN Creatinine Creat Clearance w eGFR POC Glucometer Random Glucose Calcium Phosphorus Magnesium Total Bilirubin AST ALT Alkaline Phosphatase Total Protein Albumin Urine Histoplasma Ag A. galactomannan Ag Beta-(1,3)-D-Glucan 10/26/17 10/26/17 10/26/17 05:15 05:15 06:08 WBC RBC Hgb Hct MCV MCH MCHC RDW Plt Count MPV PT with INR 12.90 H INR 1.14 PTT (Actin FS) Sodium 140 Potassium 3.5 Chloride 107 Carbon Dioxide 25 Anion Gap 8 BUN 20 H D Creatinine 0.7 Creat Clearance w eGFR > 60 POC Glucometer [phone] Random Glucose 132 H Calcium 7.2 L Phosphorus 1.8 L Magnesium 2.2 Total Bilirubin 0.5 AST 18 ALT 13 D Alkaline Phosphatase 99 D Total Protein 5.8 L Albumin 2.2 L Urine Histoplasma Ag A. galactomannan Ag Beta-(1,3)-D-Glucan Active Medications Generic Name Dose Route Start Last Admin Trade Name Freq PRN Reason Stop Dose Admin Acetaminophen 650 mg 10/19/17 22:58 10/25/17 21:12 Tylenol - PO 650 mg Q6H PRN Administration FEVER OR PAIN Albuterol/Ipratropium 1 amp 10/20/17 14:59 10/26/17 06:32 Duoneb - NEB 1 amp Q6H PRN Administration SHORTNESS OF BREATH Chlorhexidine Gluconate 1 applic 10/17/17 22:00 10/24/17 21:32 Hibiclens For Decolonization - TP 1 applic HS [facility] Administration Furosemide 20 mg 10/26/17 11:44 Lasix Injection - IVPUSH 10/26/17 11:45 ONCE ONE Heparin Sodium (Porcine) 1,000 unit 10/20/17 17:59 10/21/17 19:20 Heparin - IVPUSH 1,000 unit PRN PRN Administration Heparin Heparin Sodium (Porcine) 5,000 unit 10/20/17 17:59 10/25/17 21:11 Heparin - IVPUSH 5,000 unit PRN PRN Administration Heparin HEPARIN SOD,PORK IN 0.45% NACL 25,000 units in 500 mls @ 20 mls/hr 10/20/17 18 :04 10/26/17 04:52 Heparin-1/2ns 25,000 Units/500 IVPB 1,150 units/hr TITR [facility] 23 mls/hr Protocol Titration 1,000 UNITS/HR Insulin Aspart 1 vial 10/17/17 16:30 10/26/17 07:00 Novolog Vial Sliding Scale - SQ Not Given ACHS [facility] Protocol Insulin Detemir 10 units 10/22/17 10:00 10/26/17 10:09 Levemir Vial SQ 10 units DAILY [facility] Administration Nicotine 7 mg 10/19/17 12:45 10/26/17 10:09 Nicoderm Patch - TD 7 mg DAILY [facility] Administration Pantoprazole Sodium 40 mg 10/25/17 10:00 10/26/17 10:09 Protonix - PO 40 mg DAILY [facility] Administration Potassium Chloride 40 meq 10/26/17 11:38 K-Dur - PO 10/26/17 11:39 ONCE ONE Potassium Phos/Sodium Phos 1 packet 10/26/17 11:46 Phos-Nak Packet - PO 10/26/17 11:47 ONCE ONE Prednisone 40 mg 10/24/17 10:00 10/26/17 10:09 Deltasone - PO 40 mg DAILY [facility] Administration ASSESSMENT/PLAN: Patient is a 62 year old male who was BIBEMS for hypoxic respiratory failure placed now in between BiPap and HFNC, eating food, off of pressers, but with RLE DVT without PE s/p IVC filter, thrombectomy, catheter directed heparin infusion Neuro: #Nicotine Dependence: - Nicotine patch 7 MG daily CV: #Septic Shock vs. iatrogenic hypovolemic shock vs. cardiogenic shock: original presentation - Tachycardia of 105, Respiratory rate 26, Fever of 101, WBC of 11.7, Hypotension with SBP <90 with no response to IV fluids, and Lactic Acidosis of 3.6. Source unclear but likely PNA. Off pressers - Resolved off Bipap #DVT: U/S positive for Right calf DVT, s/p thrombectomy - s/p IR direct infusion yesterday, doing well - Continue hep drip Pulm: #Acute Hypoxic Respiratory Failure: Legionalla and strep negative. Zosyn and Vancomycin given in ED. Patient denies any recent hospitalization or abx use. Original chest X-ray reveals bilateral multifocal inflammatory changes (ARDS) vs. congestive heart failure. given JVD and crackles it is likely the later. tREATED OR cap. ECHO showing mild mitral regurg, mild/mod tricuspid regurg, mild PHTN. CT demonstrating diffuse interstitial lung disease AND XRs evidencing occasional volume overload. - Repeat XR slightly volume overloaded - Lasix per below - Continue Prednisone 40 daily - continue HFNC and attempt to wean - all cultures negative ID: likely ILD with GGO vs. infectious pattern. HIV, influenza, strep, legionella neg. BCx NGTD, sputum Cx NGTD. Completed Azithromycin and Ceftriaxone for suspected CAP. All cultures neg and ID tests neg including cryptococcal - ID recs appreciated Renal: #Acute Kidney Injury: Was resolved but then re-elevated after lasix x 2 days - Resolved - Lasix 20 IV - CTM - Avoid nephrotoxic medications Heme: #Macrocytic Anemia: Hemoglobin 9.2 with MCV 101. Ferritin 882 (likely reactive) Hb stable at 8.5 Endo #NIDDM: -BGM -ISS : #BPH -Patient on Tamsulosin 0.4mg daily GI: #Peptic Ulcer Disease -History of mesh according to family and had Endoscopy two months -Was given medications according to patients daughter and completed course FEN -hold fluids due to pulmonary congestion -Electrolytes wnl -Diabetic diet while on HFNC PPX: - Hep drip - Protonix Disposition -Full code -Patient requiring hfnc , protonix for GI PPx and hep drip for DVT Visit type - Emergency Visit Emergency Visit: No - New Patient This patient is new to me today: No - Critical Care Critical Care patient: Yes Total Critical Care Time (in minutes): 35 Critical Care Statement: The care of this patient involved high complexity decision making to prevent further life threatening deterioration of the patient 's condition and/or to evaluate & treat vital organ system(s) failure or risk of failure. - Discharge Referral Referred to [facility] No
--- NOTE | 2017-10-26 12:14 | PN ---
Teaching Attending Note Name of Resident: Mimi Pizarro ATTENDING PHYSICIAN STATEMENT I saw and evaluated the patient. I reviewed the resident's note and discussed the case with the resident. I agree with the resident's findings and plan as documented. SUBJECTIVE:RLE pain has improved. continues to feel dyspnic at rest. non productive cough. dneies CP, fever, chills, N/v/C/D OBJECTIVE: Last Vital Signs Temp Pulse Resp BP Pulse Ox 98.2 F 73 22 110/39 97 10/26/17 02:00 10/26/17 09:00 10/26/17 06:00 10/26/17 06:00 10/26/17 09:00 General NAD CV S1 s2 RRR no murmur/rub/gallop Lungs B/L crackles. +rhonchi Abdomen soft NT/ND Extremities RLE edema, soft, 2+ pulses. non tender. LLE no edema or tender ASSESSMENT AND PLAN: 62 yo M active smoker, pMHx of NIDDM, PUD, BPH admitted with acute hypoxic respiratory failure, and extensive RLE DVT 1.Acute hypoxic respiratory failure, suspect from ?ILD with pneumonitis- unknown eitology. has hx of smoking. been unable to titrate down high flow oxygen with frequent desaturations. on pred 40mg. further managment per ICU team. 2. Extensive RLE DVT- s/p IVC filter 10/20. s/p thrombectomy 10/24. catheter directed heparin removed yesterday. on hep ggt. pain and swelling improved. will consider switching over to NOAC once no more procedures are indicated. 3. severe sepsis due to PNA- afebrile. lactic acidosis resolved. completed 7 day course of abx 4. thrombocytopenia- likely due to sepsis. continues to flucuate. HIT ab sent and unequivocal. will d/w hematology 5. Acute diasoltic CHF failure- no real change. consider lasix if does not improve. echo reported noted 6. MIRLANDE from sepsis- resolved. avoid nephrotoxic agents 7. DM- controlled. A1c 7.4. hold oral hypoglycemics. on iss 8. BPH- on flomax 9. continuous nicotine dependence- nicotine patch 10. MICU monitoring 11. would likely be candidate for LTAC. referral sent 12. spoke with daughter present at bedside. all questions answered. agrees with plan. The care of this patient involved high complexity decision making to prevent further life threatening deterioration of the patient's condition and/or to evaluate & treat vital organ system(s) failure or risk of failure. 40 minutes
[2017-10-26] MEDS ORDERED: POTASSIUM CHLORIDE TABS 20 MEQ TABLET.ER (FP) PO ONE (12:15)
[2017-10-26] MEDS ORDERED: NAPH,MB-DB/K PH,MBDB POWDER PACKET PO ONE (12:15)
[2017-10-26] MEDS ORDERED: FUROSEMIDE 40 MG/4 ML INJECTABLE VIAL IVPUSH ONE (12:15)
[2017-10-26] MEDS: HEPARIN NA (PORCINE) 5,000 UNITS/ML 1ML VIAL IVPUSH PRN (12:54)
--- NOTE | 2017-10-26 13:13 | PN ---
Physical Exam: SUBJECTIVE: Patient seen and examined. Right LE pain and swelling has improved , but is still present. Non-productive cough persists. Pt denies chest pain, abdominal pain, fever, chills. No events overnight. OBJECTIVE: Vital Signs Period Temp Pulse Resp BP Sys/Sutton Pulse Ox Last 24 Hr 98.2 F-98.4 F 60-100 20-22 94-121/39-56 90-98 GENERAL: The patient is awake, alert, and fully oriented, in no acute distress. LUNGS: Bibasilar crackles, slightly improved from yesterday. HEART: Regular rate and rhythm, S1, S2 without murmur, rub or gallop. ABDOMEN: Soft, nontender, nondistended, no guarding. EXTREMITIES: Right LE with swelling and warmth slightly improved from yesterday. Right LE pain on palpation also improved, pt able to move extremity today. Left LE no edema. 2+ pulses pamela. PSYCH: Normal mood, normal affect. SKIN: Warm, dry, normal turgor, no rashes or lesions noted Laboratory Results - last 24 hr 10/21/17 10/25/17 10/25/17 05:50 18:30 21:34 WBC RBC Hgb Hct MCV MCH MCHC RDW Plt Count MPV PT with INR INR PTT (Actin FS) 37.8 H D Sodium Potassium Chloride Carbon Dioxide Anion Gap BUN Creatinine Creat Clearance w eGFR POC Glucometer [phone] Random Glucose Calcium Phosphorus Magnesium Total Bilirubin AST ALT Alkaline Phosphatase Total Protein Albumin Urine Histoplasma Ag <0.5 A. galactomannan Ag 0.11 Beta-(1,3)-D-Glucan 10/26/17 10/26/17 10/26/17 03:15 05:10 05:15 WBC 12.6 H RBC 2.46 L Hgb 8.1 L Hct 24.9 L MCV 101.2 H MCH 33.1 MCHC 32.7 RDW 15.6 Plt Count 109 L D MPV 9.4 PT with INR INR PTT (Actin FS) 96.6 H D 56.3 H D Sodium Potassium Chloride Carbon Dioxide Anion Gap BUN Creatinine Creat Clearance w eGFR POC Glucometer Random Glucose Calcium Phosphorus Magnesium Total Bilirubin AST ALT Alkaline Phosphatase Total Protein Albumin Urine Histoplasma Ag A. galactomannan Ag Beta-(1,3)-D-Glucan 10/26/17 10/26/17 10/26/17 05:15 05:15 06:08 WBC RBC Hgb Hct MCV MCH MCHC RDW Plt Count MPV PT with INR 12.90 H INR 1.14 PTT (Actin FS) Sodium 140 Potassium 3.5 Chloride 107 Carbon Dioxide 25 Anion Gap 8 BUN 20 H D Creatinine 0.7 Creat Clearance w eGFR > 60 POC Glucometer [phone] Random Glucose 132 H Calcium 7.2 L Phosphorus 1.8 L Magnesium 2.2 Total Bilirubin 0.5 AST 18 ALT 13 D Alkaline Phosphatase 99 D Total Protein 5.8 L Albumin 2.2 L Urine Histoplasma Ag A. galactomannan Ag Beta-(1,3)-D-Glucan Active Medications Generic Name Dose Route Start Last Admin Trade Name Freq PRN Reason Stop Dose Admin Acetaminophen 650 mg 10/19/17 22:58 10/25/17 21:12 Tylenol - PO 650 mg Q6H PRN Administration FEVER OR PAIN Albuterol/Ipratropium 1 amp 10/20/17 14:59 10/26/17 06:32 Duoneb - NEB 1 amp Q6H PRN Administration SHORTNESS OF BREATH Chlorhexidine Gluconate 1 applic 10/17/17 22:00 10/24/17 21:32 Hibiclens For Decolonization - TP 1 applic HS SONAL Administration Heparin Sodium (Porcine) 1,000 unit 10/20/17 17:59 10/21/17 19:20 Heparin - IVPUSH 1,000 unit PRN PRN Administration Heparin Heparin Sodium (Porcine) 5,000 unit 10/20/17 17:59 10/25/17 21:11 Heparin - IVPUSH 5,000 unit PRN PRN Administration Heparin HEPARIN SOD,PORK IN 0.45% NACL 25,000 units in 500 mls @ 20 mls/hr 10/20/17 18 :04 10/26/17 04:52 Heparin-1/2ns 25,000 Units/500 IVPB 1,150 units/hr TITR SONAL 23 mls/hr Protocol Titration 1,000 UNITS/HR Insulin Aspart 1 vial 10/17/17 16:30 10/26/17 12:36 Novolog Vial Sliding Scale - SQ Not Given ACHS [facility] Protocol Insulin Detemir 10 units 10/22/17 10:00 10/26/17 10:09 Levemir Vial SQ 10 units DAILY SONAL Administration Nicotine 7 mg 10/19/17 12:45 10/26/17 10:09 Nicoderm Patch - TD 7 mg DAILY SONAL Administration Pantoprazole Sodium 40 mg 10/25/17 10:00 10/26/17 10:09 Protonix - PO 40 mg DAILY SONAL Administration Prednisone 40 mg 10/24/17 10:00 10/26/17 10:09 Deltasone - PO 40 mg DAILY SONAL Administration IMAGIN10/26/17 CXR -> progressive pamela airspace changes consistent with diffuse infiltrates and possible pulmonary edema ASSESSMENT/PLAN: 62M active smoker with PMH of NIDDM, PUD, BPH, presents with respiratory failure , admitted to ICU for severe sepsis 2/2 CAP and acute hypoxic respiratory failure. # extensive Right LE DVT - s/p IVC filter on 10/20/17, s/p thrombectomy with IR on 10/24/17 - catheter directed heparin remove yesterday - Heparin drip continued - pain and swelling improved today, pt able to move extremity - pain controlled with Tylenol prn - continue to monitor PTT - consider switching over to NOAC once no more procedures are indicated # thrombocytopenia - likely 2/2 sepsis - continues to fluctuate - HIT ab slightly elevated, unequivocal - Heme on board # acute hypoxic respiratory failure - possibly 2/2 Interstitial Lung Disease with ?superimposed pneumonitis vs COPD exacerbation - have not been able to titrate down HFOT 2/2 frequent desaturations - continue Duoneb prn - Prednisone taper to 40mg for today # severe sepsis likely 2/2 CAP - s/p 7 days of IV antibiotics - mild leukocytosis noted - likely 2/2 post-procedure (thrombectomy) and/or steroids # macrocytic anemia - stable - continue to monitor # NIDDM - BGMs - Novolog SSI - Levemir 10U daily # nicotine dependence - Nicoderm patch 7mg daily # hypophosphatemia - repleted with 2 packets of Phos-NaK # FEN - Fluids: po - Electrolytes: continue to monitor - Nutrition: diabetic diet # Prophylaxis - DVT ppx with Heparin drip - GI ppx with Protonix 40mg daily # dispo - would likely be a candidate for LTAC - referral sent Visit type - Emergency Visit Emergency Visit: Yes ED Registration Date: 10/17/17 Care time: The patient presented to the Emergency Department on the above date and was hospitalized for further evaluation of their emergent condition. - New Patient This patient is new to me today: No - Critical Care Critical Care patient: Yes Total Critical Care Time (in minutes): 40 Critical Care Statement: The care of this patient involved high complexity decision making to prevent further life threatening deterioration of the patient 's condition and/or to evaluate & treat vital organ system(s) failure or risk of failure.
--- NOTE | 2017-10-26 14:12 | MSN ---
Progress Note (short form) - Note Progress Note: Subjective: Patient was seen this morning and complains of dizziness and SOB. He is still coughing white sputum, no change. Patient denies abdominal pain, chest pain, fever, N/V/D. Objective: Vital Signs Temp 98.2 F 10/26/17 02:00 Pulse 73 10/26/17 09:00 Resp 22 10/26/17 06:00 BP 110/39 10/26/17 06:00 Pulse Ox 90 L 10/26/17 11:30 Intake & Output 10/25/17 10/26/17 10/26/17 23:59 11:59 23:59 Intake Total 1159 655 Output Total 1200 1200 Balance -41 -545 Weight 171 lb 1 oz Intake: IV 359 175 HEPARIN-1/2NS 25,000 359 175 UNITS/500 25,000 units In 500 ml @ 1,000 UNITS/HR 20 mls/hr IVPB TITR SONAL Rx#:[id number] Oral 800 480 Output: Urine 1200 1200 Void 1200 1200 Other: Voiding Method Urinal Urinal Bowel Movement Yes: 2 medium brown soft Weight Measurement Method Built in [facility] General: patient is resting comfortably. HEENT: PERRLA. On high flow nasal canula Heart: RRR. no rubs, murmurs or gallops appreciated. Lungs: breathing using accessory muscles. diminished breath sounds on the right. Bibasilar crackles unchanged from yesterday. Abdomen: soft, nontender to palpation. normoactive bowel sounds x4 Extremities: edema of right calf improved. no edema on left. pulses 2+ B/L on UE and LE. CBC, BMP 10/26/17 05:15 10/26/17 05:15 INR, PTT INR 1.14 (0.82-1.09) 10/26/17 05:15 Abnormal Lab Results 10/25/17 10/26/17 10/26/17 18:30 03:15 05:10 WBC RBC Hgb Hct MCV Plt Count PT with INR PTT (Actin FS) 37.8 H D 96.6 H D 56.3 H D BUN Random Glucose Calcium Phosphorus Total Protein Albumin 10/26/17 10/26/17 10/26/17 05:15 05:15 05:15 WBC 12.6 H RBC 2.46 L Hgb 8.1 L Hct 24.9 L MCV 101.2 H Plt Count 109 L D PT with INR 12.90 H PTT (Actin FS) BUN 20 H D Random Glucose 132 H Calcium 7.2 L Phosphorus 1.8 L Total Protein 5.8 L Albumin 2.2 L 10/26/17 11:40 WBC RBC Hgb Hct MCV Plt Count PT with INR PTT (Actin FS) 47.6 H BUN Random Glucose Calcium Phosphorus Total Protein Albumin Microbiology 10/21/17 06:00 Serum Cryptococcal Antigen - Final 10/19/17 19:30 Sputum - Expectorated Gram Stain - Final 10/19/17 19:30 Sputum - Expectorated Sputum Culture - Final NORMAL RESPIRATORY TOYIN 10/17/17 10:10 Blood - Peripheral Venous Blood Culture - Final NO GROWTH AFTER 5 DAYS INCUBATION 10/17/17 10:10 Blood - Peripheral Venous Blood Culture - Final NO GROWTH AFTER 5 DAYS INCUBATION 10/17/17 13:57 Urine - Urine Clean Catch Urine Culture - Final NO GROWTH OBTAINED 10/17/17 13:57 Urine For Antigen Detection Legionella Antigen - Final 10/17/17 13:57 Urine For Antigen Detection Streptococcus pneumoniae Antigen (M - Final 10/17/17 10:25 Nasopharyngeal Swab Influenza Types A,B Antigen ([facility]) - Final 10/17/17 10:25 Nasopharyngeal Swab - Final Imaging: - Chest x-ray 10/26/17: progressive airspace b/l compatible with pulmonary edema and diffuse infiltrates - Chest X-ray 10/25/17: Imaging reveals diffuse interstitial and alveolar changes which have increased somewhat since 2017. This has the appearance of chronic and acute changes. - Chest x-ray 10/24/17: Since the prior set 10/23/2017 at 0751 hours there are persistent congestive and infiltrative changes - Chest X-ray 10/23/17: worse. Since 10/20/2017, there are progressive congestive and infiltrative findings - Chest CT 10/20/17: No CT evidence of pulmonary embolism. Diffuse bilateral nonspecific groundglass interstitial thickening - ? acute pneumonitis versus chronic interstitial lung disease. Nonspecific mediastinal and bilateral hilar lymphadenopathy. - Leg US 10/20/17: DVT noted. There is occlusive thrombosis within the common, deep and superficial femoral veins, as well as the popliteal and posterior tibial veins. These veins are incompressible, an additional sign of DVT. The greater saphenous vein is patent, however, the lesser saphenous vein is also thrombosed. - Chest X-ray 10/20/17: Since the prior study of 10/19/2017 at 0726 hours, the diffuse airspace changes persist. The patient is in a more apical lordotic projection. Follow-up recommended. The findings could represent a RDS. - Chest x-ray 10/19/17: Since 10/18/2017, the diffuse airspace changes have diminished slightly. The findings are still suggestive of possible ARDS. - Abd US 10/18/17: Moderate to marked gallbladder contraction is noted which may be physiologic in nature versus secondary to chronic cholecystitis. If clinically indicated correlate with two-week follow-up sonography with optimal pre - exam fasting. Gallbladder contraction was also described on a previous ultrasound exam of 03/25/2013. No sonographic evidence of acute cholecystitis. There is no obvious evidence of cholelithiasis allowing for previously described gallbladder contraction. No definite biliary tract dilatation is seen. The partially visualized pancreas demonstrates no gross sonographic abnormality. However, on the 2012 ultrasound study dilatation of the main pancreatic duct was described with a 0.5 cm diameter. Given this apparent finding on the prior study additional evaluation utilizing MRI/MRCP is suggested when the patient's clinical condition permits (unless already performed at a different facility). - Chest x-ray 10/18/17: Since 10/17/2017, the congestive and infiltrative changes persist. Follow-up recommended. - Chest x-ray 10/17/17: Shallow inspiration. Congestive changes, clinically correlate for CHF. No pneumothorax, or large pleural effusion is seen. Assessment/ Plan: 62yo M smoker with PMH of NIDDM, PUD, BPH admitted with respiratory failure, severe sepsis, CHF who had extensive right LE DVT s/p thrombectomy day 2. # Hypoxic respiratory failure possibly from interstitial lung dz with pneumonitis, or CHF. etiology unknown. - high flow nasal cannula. unable to titrate down due to frequent desaturations - Albuterol/Ipratropium (Duoneb -) 1 amp NEB Q6H PRN SOB - tapered down to Prednisone (Deltasone -) 40 mg PO DAILY SONAL - bibasilar crackles -IV fluid restarted yesterday post thrombectomy - stop IV fluid, consider diurese - likely candidate for LTAC # thrombocytopenia - possibly due to sepsis or HIT - HIT antibody sent and is unequivocal. Level 0.473 (N: <0.4) - discuss with heme/ onc # RLE pain secondary to DVT s/p IV filter on 10/20/17 and thrombectomy on 10/24/09 - Acetaminophen (Tylenol -) 650 mg PO Q6H PRN fever/ pain - pain and swelling improved - continue heparin # severe sepsis likely secondary to CAP - bp stable. not on pressors. - Azithromycin and Ceftriaxone 7 days completed on - blood cultures and sputum culture negative # RUQ abd pain possibly due to coughing. - pain resolved - US sound negative for concerns. # NIDDM. A1C 7.4 - diabetic diet - Insulin Aspart (Novolog Vial Sliding Scale -) 1 vial SQ ACHS SONAL - Blood sugars rise due to steroids. Give Insulin Detemir (Levemir Vial) 10 units SQ DAILY SONAL # macrocytic anemia - stable - continue to monitor # BPH - continue home med of Tamsulosin 0.4mg PO daily # FEN - F: PO - E: continue to monitor - N: diabetic diet #DVT prophylaxis - heparin drip
--- NOTE | 2017-10-26 14:45 | PN ---
Teaching Attending Note Name of Resident: Jaxson Echevarria ATTENDING PHYSICIAN STATEMENT I saw and evaluated the patient. I reviewed the resident's note and discussed the case with the resident. I agree with the resident's findings and plan as documented. SUBJECTIVE: Patient seen and examined in the ICU. Remains on high flow oxygen therapy, quickly destaurates when off. IV heparin drip continues. Reports that his breathing feels about the same. Dry cough. CXR: bilateral diffuse airspace disease OBJECTIVE: Intake & Output 10/23/17 10/24/17 10/25/17 10/26/17 23:59 23:59 23:59 23:59 Intake Total 2180 1036 2793 655 Output Total 3000 550 1700 1200 Balance -566 095 7528 -545 Weight 175 lb 12.8 oz 174 lb 3.2 oz 173 lb 6.4 oz 171 lb 1 oz Last Vital Signs Temp Pulse Resp BP Pulse Ox 98.2 F 73 22 110/39 90 L 10/26/17 02:00 10/26/17 09:00 10/26/17 06:00 10/26/17 06:00 10/26/17 11:30 Active Medications Acetaminophen (Tylenol -) 650 mg PO Q6H PRN PRN Reason: FEVER OR PAIN Last Admin: 10/25/17 21:12 Dose: 650 mg Albuterol/Ipratropium (Duoneb -) 1 amp NEB Q6H PRN PRN Reason: SHORTNESS OF BREATH Last Admin: 10/26/17 06:32 Dose: 1 amp Chlorhexidine Gluconate (Hibiclens For Decolonization -) 1 applic TP HS SONAL Last Admin: 10/24/17 21:32 Dose: 1 applic Heparin Sodium (Porcine) (Heparin -) 1,000 unit IVPUSH PRN PRN PRN Reason: Heparin Last Admin: 10/26/17 12:54 Dose: 1,000 unit Heparin Sodium (Porcine) (Heparin -) 5,000 unit IVPUSH PRN PRN PRN Reason: Heparin Last Admin: 10/25/17 21:11 Dose: 5,000 unit HEPARIN SOD,PORK IN 0.45% NACL (Heparin-1/2ns 25,000 Units/500) 25,000 units in 500 mls @ 20 mls/hr IVPB TITR SONAL; 1,000 UNITS/HR PRN Reason: Protocol Last Titration: 10/26/17 12:55 Dose: 1,250 units/hr, 25 mls/hr Insulin Aspart (Novolog Vial Sliding Scale -) 1 vial SQ ACHS [facility] PRN Reason: Protocol Last Admin: 10/26/17 12:36 Dose: Not Given Insulin Detemir (Levemir Vial) 10 units SQ DAILY [facility] Last Admin: 10/26/17 10:09 Dose: 10 units Nicotine (Nicoderm Patch -) 7 mg TD DAILY [facility] Last Admin: 10/26/17 10:09 Dose: 7 mg Pantoprazole Sodium (Protonix -) 40 mg PO DAILY [facility] Last Admin: 10/26/17 10:09 Dose: 40 mg Prednisone (Deltasone -) 40 mg PO DAILY [facility] Last Admin: 10/26/17 10:09 Dose: 40 mg Gen: mildly tachypneic on HFOT Heart: RRR Lung: coarse bibasilar rales/crackles Abd: soft, nontender Ext: RLE edema Laboratory Results - last 24 hr 10/21/17 10/23/17 10/23/17 05:50 12:44 16:44 WBC RBC Hgb Hct MCV MCH MCHC RDW Plt Count MPV PT with INR INR PTT (Actin FS) Sodium Potassium Chloride Carbon Dioxide Anion Gap BUN Creatinine Creat Clearance w eGFR POC Glucometer 301.44234 176.01484 Random Glucose Calcium Phosphorus Magnesium Total Bilirubin AST ALT Alkaline Phosphatase Total Protein Albumin Urine Histoplasma Ag <0.5 A. galactomannan Ag 0.11 10/23/17 10/24/17 10/24/17 21:41 06:10 10:27 WBC RBC Hgb Hct MCV MCH MCHC RDW Plt Count MPV PT with INR INR PTT (Actin FS) Sodium Potassium Chloride Carbon Dioxide Anion Gap BUN Creatinine Creat Clearance w eGFR POC Glucometer 330.75752 228.80030 279.19804 Random Glucose Calcium Phosphorus Magnesium Total Bilirubin AST ALT Alkaline Phosphatase Total Protein Albumin Urine Histoplasma Ag A. galactomannan Ag 10/24/17 10/25/17 10/25/17 21:16 05:42 11:33 WBC RBC Hgb Hct MCV MCH MCHC RDW Plt Count MPV PT with INR INR PTT (Actin FS) Sodium Potassium Chloride Carbon Dioxide Anion Gap BUN Creatinine Creat Clearance w eGFR POC Glucometer 186.62276 153.74000 234.53256 Random Glucose Calcium Phosphorus Magnesium Total Bilirubin AST ALT Alkaline Phosphatase Total Protein Albumin Urine Histoplasma Ag A. galactomannan Ag 10/25/17 10/25/17 10/25/17 17:29 18:30 21:34 WBC RBC Hgb Hct MCV MCH MCHC RDW Plt Count MPV PT with INR INR PTT (Actin FS) 37.8 H D Sodium Potassium Chloride Carbon Dioxide Anion Gap BUN Creatinine Creat Clearance w eGFR POC Glucometer 269.00798 180.44493 Random Glucose Calcium Phosphorus Magnesium Total Bilirubin AST ALT Alkaline Phosphatase Total Protein Albumin Urine Histoplasma Ag A. galactomannan Ag 10/26/17 10/26/17 10/26/17 03:15 05:10 05:15 WBC 12.6 H RBC 2.46 L Hgb 8.1 L Hct 24.9 L MCV 101.2 H MCH 33.1 MCHC 32.7 RDW 15.6 Plt Count 109 L D MPV 9.4 PT with INR INR PTT (Actin FS) 96.6 H D 56.3 H D Sodium Potassium Chloride Carbon Dioxide Anion Gap BUN Creatinine Creat Clearance w eGFR POC Glucometer Random Glucose Calcium Phosphorus Magnesium Total Bilirubin AST ALT Alkaline Phosphatase Total Protein Albumin Urine Histoplasma Ag A. galactomannan Ag 10/26/17 10/26/17 10/26/17 05:15 05:15 06:08 WBC RBC Hgb Hct MCV MCH MCHC RDW Plt Count MPV PT with INR 12.90 H INR 1.14 PTT (Actin FS) Sodium 140 Potassium 3.5 Chloride 107 Carbon Dioxide 25 Anion Gap 8 BUN 20 H D Creatinine 0.7 Creat Clearance w eGFR > 60 POC Glucometer [phone] Random Glucose 132 H Calcium 7.2 L Phosphorus 1.8 L Magnesium 2.2 Total Bilirubin 0.5 AST 18 ALT 13 D Alkaline Phosphatase 99 D Total Protein 5.8 L Albumin 2.2 L Urine Histoplasma Ag A. galactomannan Ag 10/26/17 11:40 WBC RBC Hgb Hct MCV MCH MCHC RDW Plt Count MPV PT with INR INR PTT (Actin FS) 47.6 H Sodium Potassium Chloride Carbon Dioxide Anion Gap BUN Creatinine Creat Clearance w eGFR POC Glucometer Random Glucose Calcium Phosphorus Magnesium Total Bilirubin AST ALT Alkaline Phosphatase Total Protein Albumin Urine Histoplasma Ag A. galactomannan Ag Problem List - Problems (1) Acute respiratory failure with hypoxia Code(s): J96.01 - ACUTE RESPIRATORY FAILURE WITH HYPOXIA (2) Pneumonia Code(s): J18.9 - PNEUMONIA, UNSPECIFIED ORGANISM (3) Diabetes Code(s): E11.9 - TYPE 2 DIABETES MELLITUS WITHOUT COMPLICATIONS ASSESSMENT AND PLAN: Acute Hypoxic Respiratory Failure Pneumonia Sepsis Acute Diastolic Heart Failure improved Acute Kidney Injury improving Lactic Acidosis resolved DM RLE DVT - antibiotics per ID - continue steroids - titrate FiO2, flow rate to keep SpO2 >90% - Trial of Lasix as there may be a component of capillary leak/vascular congestion - monitor urine output, creatinine - continue anticoagulation - PO as tolerated - Continue ICU monitoring for tenuous respiratory status - May eventually need LTAC placement Dr Souza Critical care time spent in reviewing chart, evaluating patient and formulating plan 35 min
[2017-10-26] MEDS: CHLORHEXIDINE GLUCONATE 4% CLEANSER FOR DECOLONIZATION TP SCH (22:38)
[2017-10-26] MEDS: HEPARIN SOD,PORK IN 0.45% NACL 25,000 UNITS/500 ML INFUS.BAG IVPB SCH (22:40)
[2017-10-27 06:19] LABS: BASO % 0.2 % (0-2.0); EOS % 3.2 % (0-4.5); HEMATOCRIT 23.4 % (35.4-49); HEMOGLOBIN 7.7 GM/dL (11.7-16.9); MCH 33.3 pg (25.7-33.7); MCHC 32.8 g/dl (32.0-35.9); MEAN CELL VOLUME 101.6 fl (80-96); MEAN PLT VOLUME 9.1 fl (7.5-11.1); MONO % 5.1 % (3.8-10.2); NEUT % 79.5 % (42.8-82.8); PLATELET COUNT 89 K/MM3 (134-434); RBC 2.31 M/mm3 (4.00-5.60); RDW 15.9 % (11.9-15.9); WHITE BLOOD COUNT 10.8 K/mm3 (4.0-10.0)
[2017-10-27 07:20] LABS: ALBUMIN 2.2 g/dl (3.4-5.0); ANION GAP 9 (8-16); BILIRUBIN,TOTAL 0.5 mg/dL (0.2-1.0); BLOOD UREA NITROGEN 16 mg/dL (7-18); CALCIUM 7.5 mg/dL (8.5-10.1); CHLORIDE 108 mmol/L (98-107); CO2 25 mmol/L (21-32); CREATININE 0.7 mg/dL (0.7-1.3); GLUCOSE,RANDOM 103 mg/dL (74-106); MAGNESIUM 2.1 mg/dL (1.8-2.4); PHOSPHOROUS 2.1 mg/dL (2.5-4.9); POTASSIUM 3.8 mmol/L (3.5-5.1); SGOT/AST 12 U/L (15-37); SGPT/ALT 13 U/L (12-78); SODIUM 142 mmol/L (136-145); TOT PROT 5.9 g/dl (6.4-8.2)
[2017-10-27 07:21] LABS: ALK PHOS 86 U/L (45-117)
[2017-10-27] MEDS: INSULIN SLIDING SCALE (NOVOLOG) 1 VIAL SQ SCH ×4 (07:42→21:44)
--- NOTE | 2017-10-27 09:30 | PN ---
Physical Exam: SUBJECTIVE: Requires increasing HFNC. OBJECTIVE: Vital Signs Period Temp Pulse Resp BP Sys/Sutton Pulse Ox Last 24 Hr 98.2 F-98.6 F 60-80 22-24 86-117/37-66 90-96 GENERAL: The patient is awake, alert, and fully oriented, in no acute distress. HEAD: Normal with no signs of trauma. EYES: PERRL, extraocular movements intact, sclera anicteric, conjunctiva clear. No ptosis. ENT: Ears normal, nares patent, oropharynx clear without exudates, moist mucous membranes. HFNC in place NECK: Trachea midline, full range of motion, supple. LUNGS: Occasional accessory muscle use and HFNC in place. HEART: Regular rate and rhythm, S1, S2 without murmur, rub or gallop. ABDOMEN: Soft, nontender, nondistended, normoactive bowel sounds, no guarding, no rebound, no hepatosplenomegaly, no masses. EXTREMITIES: 2+ pulses, warm, well-perfused, no edema. NEUROLOGICAL: No focal deficit obvious. PSYCH: Normal mood, normal affect. SKIN: Warm, dry, normal turgor, no rashes or lesions noted Laboratory Results - last 24 hr 10/21/17 10/23/17 10/23/17 05:50 12:44 16:44 WBC RBC Hgb Hct MCV MCH MCHC RDW Plt Count MPV Neutrophils % Lymphocytes % Monocytes % Eosinophils % Basophils % PTT (Actin FS) Sodium Potassium Chloride Carbon Dioxide Anion Gap BUN Creatinine Creat Clearance w eGFR POC Glucometer [phone] Random Glucose Calcium Phosphorus Magnesium Total Bilirubin AST ALT Alkaline Phosphatase Total Protein Albumin Urine Histoplasma Ag <0.5 A. galactomannan Ag 0.11 10/23/17 10/24/17 10/24/17 21:41 06:10 10:27 WBC RBC Hgb Hct MCV MCH MCHC RDW Plt Count MPV Neutrophils % Lymphocytes % Monocytes % Eosinophils % Basophils % PTT (Actin FS) Sodium Potassium Chloride Carbon Dioxide Anion Gap BUN Creatinine Creat Clearance w eGFR POC Glucometer [phone] Random Glucose Calcium Phosphorus Magnesium Total Bilirubin AST ALT Alkaline Phosphatase Total Protein Albumin Urine Histoplasma Ag A. galactomannan Ag 10/24/17 10/25/17 10/25/17 21:16 05:42 11:33 WBC RBC Hgb Hct MCV MCH MCHC RDW Plt Count MPV Neutrophils % Lymphocytes % Monocytes % Eosinophils % Basophils % PTT (Actin FS) Sodium Potassium Chloride Carbon Dioxide Anion Gap BUN Creatinine Creat Clearance w eGFR POC Glucometer [phone] [phone] Random Glucose Calcium Phosphorus Magnesium Total Bilirubin AST ALT Alkaline Phosphatase Total Protein Albumin Urine Histoplasma Ag A. galactomannan Ag 10/25/17 10/26/17 10/26/17 17:29 11:40 12:34 WBC RBC Hgb Hct MCV MCH MCHC RDW Plt Count MPV Neutrophils % Lymphocytes % Monocytes % Eosinophils % Basophils % PTT (Actin FS) 47.6 H Sodium Potassium Chloride Carbon Dioxide Anion Gap BUN Creatinine Creat Clearance w eGFR POC Glucometer [phone] Random Glucose Calcium Phosphorus Magnesium Total Bilirubin AST ALT Alkaline Phosphatase Total Protein Albumin Urine Histoplasma Ag A. galactomannan Ag 10/26/17 10/26/17 10/26/17 16:17 16:37 18:30 WBC RBC Hgb Hct MCV MCH MCHC RDW Plt Count MPV Neutrophils % Lymphocytes % Monocytes % Eosinophils % Basophils % PTT (Actin FS) 60.8 H Sodium Potassium Chloride Carbon Dioxide Anion Gap BUN Creatinine Creat Clearance w eGFR POC Glucometer [phone] Random Glucose Calcium Phosphorus Magnesium Total Bilirubin AST ALT Alkaline Phosphatase Total Protein Albumin Urine Histoplasma Ag A. galactomannan Ag 10/26/17 10/27/17 10/27/17 21:48 05:00 05:00 WBC 10.8 H RBC 2.31 L Hgb 7.7 L Hct 23.4 L MCV 101.6 H MCH 33.3 MCHC 32.8 RDW 15.9 Plt Count 89 L MPV 9.1 Neutrophils % 79.5 Lymphocytes % 12.0 Monocytes % 5.1 D Eosinophils % 3.2 Basophils % 0.2 PTT (Actin FS) 93.6 H D Sodium Potassium Chloride Carbon Dioxide Anion Gap BUN Creatinine Creat Clearance w eGFR POC Glucometer [phone] Random Glucose Calcium Phosphorus Magnesium Total Bilirubin AST ALT Alkaline Phosphatase Total Protein Albumin Urine Histoplasma Ag A. galactomannan Ag 10/27/17 10/27/17 05:00 05:43 WBC RBC Hgb Hct MCV MCH MCHC RDW Plt Count MPV Neutrophils % Lymphocytes % Monocytes % Eosinophils % Basophils % PTT (Actin FS) Sodium 142 Potassium 3.8 Chloride 108 H Carbon Dioxide 25 Anion Gap 9 BUN 16 Creatinine 0.7 Creat Clearance w eGFR > 60 POC Glucometer [phone] Random Glucose 103 D Calcium 7.5 L Phosphorus 2.1 L Magnesium 2.1 Total Bilirubin 0.5 AST 12 L D ALT 13 Alkaline Phosphatase 86 Total Protein 5.9 L Albumin 2.2 L Urine Histoplasma Ag A. galactomannan Ag Active Medications Generic Name Dose Route Start Last Admin Trade Name Freq PRN Reason Stop Dose Admin Acetaminophen 650 mg 10/19/17 22:58 10/25/17 21:12 Tylenol - PO 650 mg Q6H PRN Administration FEVER OR PAIN Albuterol/Ipratropium 1 amp 10/20/17 14:59 10/26/17 06:32 Duoneb - NEB 1 amp Q6H PRN Administration SHORTNESS OF BREATH Chlorhexidine Gluconate 1 applic 10/17/17 22:00 10/26/17 22:38 Hibiclens For Decolonization - TP 1 applic HS SONAL Administration Heparin Sodium (Porcine) 1,000 unit 10/20/17 17:59 10/26/17 12:54 Heparin - IVPUSH 1,000 unit PRN PRN Administration Heparin Heparin Sodium (Porcine) 5,000 unit 10/20/17 17:59 10/25/17 21:11 Heparin - IVPUSH 5,000 unit PRN PRN Administration Heparin HEPARIN SOD,PORK IN 0.45% NACL 25,000 units in 500 mls @ 20 mls/hr 10/20/17 18 :04 10/26/17 22:40 Heparin-1/2ns 25,000 Units/500 IVPB Not Given TITR [facility] Protocol 1,000 UNITS/HR Insulin Aspart 1 vial 10/17/17 16:30 10/27/17 07:42 Novolog Vial Sliding Scale - SQ Not Given ACHS [facility] Protocol Insulin Detemir 10 units 10/22/17 10:00 10/26/17 10:09 Levemir Vial SQ 10 units DAILY [facility]ONAL Administration Nicotine 7 mg 10/19/17 12:45 10/26/17 10:09 Nicoderm Patch - TD 7 mg DAILY SONAL Administration Pantoprazole Sodium 40 mg 10/25/17 10:00 10/26/17 10:09 Protonix - PO 40 mg DAILY SONAL Administration Prednisone 40 mg 10/24/17 10:00 10/26/17 10:09 Deltasone - PO 40 mg DAILY SONAL Administration ASSESSMENT/PLAN: Patient is a 62 year old male who was BIBEMS for hypoxic respiratory failure eating food, off of pressers, but with RLE DVT without PE s/p IVC filter, thrombectomy, catheter directed heparin infusion, requiring increasing HFNC settings. Neuro: #Nicotine Dependence: - Nicotine patch 7 MG daily CV: #Septic Shock vs. iatrogenic hypovolemic shock vs. cardiogenic shock: original presentation - Tachycardia of 105, Respiratory rate 26, Fever of 101, WBC of 11.7, Hypotension with SBP <90 with no response to IV fluids, and Lactic Acidosis of 3.6. Source unclear but likely PNA. Off pressers - Resolved off Bipap #DVT: U/S positive for Right calf DVT, s/p thrombectomy - s/p IR direct infusion yesterday, doing well - Continue hep drip #Chest Pain: - EKG unchanged - can consider PE if pain continues but patient already on Heparin Pulm: #Acute Hypoxic Respiratory Failure: Legionalla and strep negative. Zosyn and Vancomycin given in ED. Patient denies any recent hospitalization or abx use. Original chest X-ray reveals bilateral multifocal inflammatory changes (ARDS) vs. congestive heart failure. given JVD and crackles it is likely the later. treated for CAP. ECHO showing mild mitral regurg, mild/mod tricuspid regurg, mild PHTN. CT demonstrating diffuse interstitial lung disease AND XRs evidencing occasional volume overload. - Repeat XR better than yesterday but still volume overloaded. - Lasix per below - Continue Prednisone 40 daily - continue HFNC and attempt to wean - all cultures negative ID: likely ILD with GGO vs. infectious pattern. HIV, influenza, strep, legionella neg. BCx NGTD, sputum Cx NGTD. Completed Azithromycin and Ceftriaxone for suspected CAP. All cultures neg and ID tests neg including cryptococcal - ID recs appreciated Renal: #Acute Kidney Injury: Was resolved but then re-elevated after lasix x 2 days - Resolved - Lasix 40 IV - CTM - Avoid nephrotoxic medications Heme: #Macrocytic Anemia: Hemoglobin 9.2 with MCV 101. Ferritin 882 (likely reactive) Hb stable at 8.5 Endo #NIDDM: -BGM -ISS : #BPH -Patient on Tamsulosin 0.4mg daily GI: #Peptic Ulcer Disease: History of mesh according to family and had Endoscopy two months. Was given medications according to patients daughter and completed course. - on PPI FEN -hold fluids due to pulmonary congestion -Electrolytes wnl -Diabetic diet while on HFNC PPX: - Hep drip - Protonix Disposition -Full code -Patient requiring hfnc , protonix for GI PPx and hep drip for DVT Visit type - Emergency Visit Emergency Visit: No - New Patient This patient is new to me today: No - Critical Care Critical Care patient: Yes Total Critical Care Time (in minutes): 35 Critical Care Statement: The care of this patient involved high complexity decision making to prevent further life threatening deterioration of the patient 's condition and/or to evaluate & treat vital organ system(s) failure or risk of failure. - Discharge Referral Referred to [facility] No
--- NOTE | 2017-10-27 09:56 | MSN ---
Progress Note (short form) - Note Progress Note: Subjective: Patient was seen this morning and complains that his breathing is slightly worse than yesterday and that he has been coughing more since yesterday. The RUQ abdominal pain has returned. Patient denies pain on his legs, chest pain, palpitations, N/V/D. Objective: Last Vital Signs Temp Pulse Resp BP Pulse Ox 98.2 F 74 22 116/51 90 L 10/26/17 22:00 10/27/17 06:00 10/27/17 06:00 10/27/17 06:00 10/27/17 07:05 Intake & Output 10/24/17 10/25/17 10/26/17 10/27/17 23:59 23:59 23:59 23:59 Intake Total 1036 2793 755 655 Output Total 550 1700 3900 400 Balance 486 1093 -3145 255 Weight 174 lb 3.2 oz 173 lb 6.4 oz 171 lb 1 oz 173 lb 1 oz General: Patient is lying down comfortably. A&O x3 HEENT: PERRLA, on high flow nasal cannula 60L/min and FIO2 of 85%, trachea midilne Heart: RRR. No rubs, murmurs, gallops appreciated. Lungs: breathing using accessory muscle. Diminished breath sounds. Bibasilar crackles Abdomen: soft, tender to deep palpation on RUQ, normoactive bowel sounds x4. Extremities: Edema of right calf improved. No edema on left. Pulses 2+ B/L on UE and LE CBC, BMP 10/27/17 05:00 10/27/17 05:00 Abnormal Lab Results 10/26/17 10/26/17 10/27/17 11:40 18:30 05:00 WBC RBC Hgb Hct MCV Plt Count PTT (Actin FS) 47.6 H 60.8 H 93.6 H D Chloride Calcium Phosphorus AST Total Protein Albumin 10/27/17 10/27/17 05:00 05:00 WBC 10.8 H RBC 2.31 L Hgb 7.7 L Hct 23.4 L MCV 101.6 H Plt Count 89 L PTT (Actin FS) Chloride 108 H Calcium 7.5 L Phosphorus 2.1 L AST 12 L D Total Protein 5.9 L Albumin 2.2 L Imaging: - chest x-ray 10/27/17: diffuse b/l airspace opacities. concerning for infx process - Chest x-ray 10/26/17: progressive airspace b/l compatible with pulmonary edema and diffuse infiltrates - Chest X-ray 10/25/17: Imaging reveals diffuse interstitial and alveolar changes which have increased somewhat since 2017. This has the appearance of chronic and acute changes. - Chest x-ray 10/24/17: Since the prior set 10/23/2017 at 0751 hours there are persistent congestive and infiltrative changes - Chest X-ray 10/23/17: worse. Since 10/20/2017, there are progressive congestive and infiltrative findings - Chest CT 10/20/17: No CT evidence of pulmonary embolism. Diffuse bilateral nonspecific groundglass interstitial thickening - ? acute pneumonitis versus chronic interstitial lung disease. Nonspecific mediastinal and bilateral hilar lymphadenopathy. - Leg US 10/20/17: DVT noted. There is occlusive thrombosis within the common, deep and superficial femoral veins, as well as the popliteal and posterior tibial veins. These veins are incompressible, an additional sign of DVT. The greater saphenous vein is patent, however, the lesser saphenous vein is also thrombosed. - Chest X-ray 10/20/17: Since the prior study of 10/19/2017 at 0726 hours, the diffuse airspace changes persist. The patient is in a more apical lordotic projection. Follow-up recommended. The findings could represent a RDS. - Chest x-ray 10/19/17: Since 10/18/2017, the diffuse airspace changes have diminished slightly. The findings are still suggestive of possible ARDS. - Abd US 10/18/17: Moderate to marked gallbladder contraction is noted which may be physiologic in nature versus secondary to chronic cholecystitis. If clinically indicated correlate with two-week follow-up sonography with optimal pre - exam fasting. Gallbladder contraction was also described on a previous ultrasound exam of 03/25/2013. No sonographic evidence of acute cholecystitis. There is no obvious evidence of cholelithiasis allowing for previously described gallbladder contraction. No definite biliary tract dilatation is seen. The partially visualized pancreas demonstrates no gross sonographic abnormality. However, on the 2012 ultrasound study dilatation of the main pancreatic duct was described with a 0.5 cm diameter. Given this apparent finding on the prior study additional evaluation utilizing MRI/MRCP is suggested when the patient's clinical condition permits (unless already performed at a different facility). - Chest x-ray 10/18/17: Since 10/17/2017, the congestive and infiltrative changes persist. Follow-up recommended. - Chest x-ray 10/17/17: Shallow inspiration. Congestive changes, clinically correlate for CHF. No pneumothorax, or large pleural effusion is seen. Assessment/ Plan: 62yo M smoker with PMH of NIDDM, PUD, BPH admitted with respiratory failure, severe sepsis, CHF who had extensive right LE DVT s/p IVC filter 10/20/17 and s/p thrombectomy 10/24/17. # Hypoxic respiratory failure possibly from interstitial lung dz with pneumonitis, or CHF. etiology unknown. - high flow nasal cannula. unable to titrate down due to frequent desaturations - Albuterol/Ipratropium (Duoneb -) 1 amp NEB Q6H PRN SOB - tapered down to Prednisone (Deltasone -) 40 mg PO DAILY SONAL - bibasilar crackles -diurese with lasix - likely candidate for LTAC # RUQ abd pain likely secondary to coughing - U/S on 10/18 was negative # thrombocytopenia - possibly due to sepsis - HIT antibody sent and is unequivocal. Level 0.473 (N: <0.4) - discuss with heme/ onc # RLE pain secondary to DVT s/p IV filter on 10/20/17 and thrombectomy on 10/24/17 - Acetaminophen (Tylenol -) 650 mg PO Q6H PRN fever/ pain - pain and swelling improved - continue heparin # severe sepsis likely secondary to CAP - bp stable. not on pressors. - Azithromycin and Ceftriaxone 7 days completed on 10/24/17 - blood cultures and sputum culture negative # RUQ abd pain possibly due to coughing. - pain resolved - US sound negative for concerns. # NIDDM. A1C 7.4 - diabetic diet - Insulin Aspart (Novolog Vial Sliding Scale -) 1 vial SQ ACHS [facility]ONAL - Blood sugars rise due to steroids. Give Insulin Detemir (Levemir Vial) 10 units SQ DAILY SONAL # macrocytic anemia - continue to monitor # BPH - continue home med of Tamsulosin 0.4mg PO daily # FEN - F: PO - E: continue to monitor - N: diabetic diet #DVT prophylaxis - heparin drip
[2017-10-27] MEDS ORDERED: PT OWN MED DRAWER 7, Y5N ONE (10:52)
[2017-10-27] MEDS: predniSONE 20 MG TABLET (UD) PO SCH (10:55)
[2017-10-27] MEDS: NICOTINE 7 MG/24 HOURS TOPICAL PATCH TD SCH (10:55)
[2017-10-27] MEDS: PANTOPRAZOLE 40 MG TABLET (FP) PO SCH (10:55)
[2017-10-27] MEDS: INSULIN DETEMIR 100 UNITS/ML MDV SQ SCH (10:57)
--- NOTE | 2017-10-27 11:44 | PN ---
Physical Exam: SUBJECTIVE: Patient seen and examined. Pt c/o increasing cough and worsening breathing today as compared to yesterday. Right LE pain has improved, and is controlled with Tylenol. Pt denies chest pain, abdominal pain, fever, chills. No events overnight. OBJECTIVE: Vital Signs Period Temp Pulse Resp BP Sys/Sutton Pulse Ox Last 24 Hr 98.2 F-98.6 F 60-82 22-32 86-131/37-66 90-96 GENERAL: The patient is awake, alert, and fully oriented, in no acute distress. LUNGS: Bibasilar crackles and mild wheezing. HEART: Regular rate and rhythm, S1, S2 without murmur, rub or gallop. ABDOMEN: Soft, nontender, nondistended, normoactive bowel sounds, no guarding. EXTREMITIES: Right LE with swelling and pain on palpation improving. Left LE no edema. 2+ pulses pamela. PSYCH: Normal mood, normal affect. SKIN: Warm, dry, normal turgor, no rashes or lesions noted Laboratory Results - last 24 hr 10/23/17 10/23/17 10/23/17 12:44 16:44 21:41 WBC RBC Hgb Hct MCV MCH MCHC RDW Plt Count MPV Neutrophils % Lymphocytes % Monocytes % Eosinophils % Basophils % PTT (Actin FS) Sodium Potassium Chloride Carbon Dioxide Anion Gap BUN Creatinine Creat Clearance w eGFR POC Glucometer 301.57849 176.67123 330.56751 Random Glucose Calcium Phosphorus Magnesium Total Bilirubin AST ALT Alkaline Phosphatase Total Protein Albumin 10/24/17 10/24/17 10/24/17 06:10 10:27 21:16 WBC RBC Hgb Hct MCV MCH MCHC RDW Plt Count MPV Neutrophils % Lymphocytes % Monocytes % Eosinophils % Basophils % PTT (Actin FS) Sodium Potassium Chloride Carbon Dioxide Anion Gap BUN Creatinine Creat Clearance w eGFR POC Glucometer 228.54097 279.95971 [phone] Random Glucose Calcium Phosphorus Magnesium Total Bilirubin AST ALT Alkaline Phosphatase Total Protein Albumin 10/25/17 10/25/17 10/25/17 05:42 11:33 17:29 WBC RBC Hgb Hct MCV MCH MCHC RDW Plt Count MPV Neutrophils % Lymphocytes % Monocytes % Eosinophils % Basophils % PTT (Actin FS) Sodium Potassium Chloride Carbon Dioxide Anion Gap BUN Creatinine Creat Clearance w eGFR POC Glucometer 153.18956 234.55726 [phone] Random Glucose Calcium Phosphorus Magnesium Total Bilirubin AST ALT Alkaline Phosphatase Total Protein Albumin 10/26/17 10/26/17 10/26/17 11:40 12:34 16:17 WBC RBC Hgb Hct MCV MCH MCHC RDW Plt Count MPV Neutrophils % Lymphocytes % Monocytes % Eosinophils % Basophils % PTT (Actin FS) 47.6 H Sodium Potassium Chloride Carbon Dioxide Anion Gap BUN Creatinine Creat Clearance w eGFR POC Glucometer 186.06323 [phone] Random Glucose Calcium Phosphorus Magnesium Total Bilirubin AST ALT Alkaline Phosphatase Total Protein Albumin 10/26/17 10/26/17 10/26/17 16:37 18:30 21:48 WBC RBC Hgb Hct MCV MCH MCHC RDW Plt Count MPV Neutrophils % Lymphocytes % Monocytes % Eosinophils % Basophils % PTT (Actin FS) 60.8 H Sodium Potassium Chloride Carbon Dioxide Anion Gap BUN Creatinine Creat Clearance w eGFR POC Glucometer 335.26669 [phone] Random Glucose Calcium Phosphorus Magnesium Total Bilirubin AST ALT Alkaline Phosphatase Total Protein Albumin 10/27/17 10/27/17 10/27/17 05:00 05:00 05:00 WBC 10.8 H RBC 2.31 L Hgb 7.7 L Hct 23.4 L MCV 101.6 H MCH 33.3 MCHC 32.8 RDW 15.9 Plt Count 89 L MPV 9.1 Neutrophils % 79.5 Lymphocytes % 12.0 Monocytes % 5.1 D Eosinophils % 3.2 Basophils % 0.2 PTT (Actin FS) 93.6 H D Sodium 142 Potassium 3.8 Chloride 108 H Carbon Dioxide 25 Anion Gap 9 BUN 16 Creatinine 0.7 Creat Clearance w eGFR > 60 POC Glucometer Random Glucose 103 D Calcium 7.5 L Phosphorus 2.1 L Magnesium 2.1 Total Bilirubin 0.5 AST 12 L D ALT 13 Alkaline Phosphatase 86 Total Protein 5.9 L Albumin 2.2 L 10/27/17 05:43 WBC RBC Hgb Hct MCV MCH MCHC RDW Plt Count MPV Neutrophils % Lymphocytes % Monocytes % Eosinophils % Basophils % PTT (Actin FS) Sodium Potassium Chloride Carbon Dioxide Anion Gap BUN Creatinine Creat Clearance w eGFR POC Glucometer 140.83723 Random Glucose Calcium Phosphorus Magnesium Total Bilirubin AST ALT Alkaline Phosphatase Total Protein Albumin Active Medications Generic Name Dose Route Start Last Admin Trade Name Freq PRN Reason Stop Dose Admin Acetaminophen 650 mg 10/19/17 22:58 10/25/17 21:12 Tylenol - PO 650 mg Q6H PRN Administration FEVER OR PAIN Albuterol/Ipratropium 1 amp 10/20/17 14:59 10/26/17 06:32 Duoneb - NEB 1 amp Q6H PRN Administration SHORTNESS OF BREATH Chlorhexidine Gluconate 1 applic 10/17/17 22:00 10/26/17 22:38 Hibiclens For Decolonization - TP 1 applic HS SONAL Administration Heparin Sodium (Porcine) 1,000 unit 10/20/17 17:59 10/26/17 12:54 Heparin - IVPUSH 1,000 unit PRN PRN Administration Heparin Heparin Sodium (Porcine) 5,000 unit 10/20/17 17:59 10/25/17 21:11 Heparin - IVPUSH 5,000 unit PRN PRN Administration Heparin HEPARIN SOD,PORK IN 0.45% NACL 25,000 units in 500 mls @ 20 mls/hr 10/20/17 18 :04 10/26/17 22:40 Heparin-1/2ns 25,000 Units/500 IVPB Not Given TITR [facility] Protocol 1,000 UNITS/HR Insulin Aspart 1 vial 10/17/17 16:30 10/27/17 07:42 Novolog Vial Sliding Scale - SQ Not Given ACHS [facility] Protocol Insulin Detemir 10 units 10/22/17 10:00 10/27/17 10:57 Levemir Vial SQ 10 units DAILY SON[facility] Administration Nicotine 7 mg 10/19/17 12:45 10/27/17 10:55 Nicoderm Patch - TD 7 mg DAILY SONAL Administration Pantoprazole Sodium 40 mg 10/25/17 10:00 10/27/17 10:55 Protonix - PO 40 mg DAILY SONAL Administration Prednisone 40 mg 10/24/17 10:00 10/27/17 10:55 Deltasone - PO 40 mg DAILY SONAL Administration IMAGIN10/27/17 CXR -> diffuse pamela airspace opacities. No pleural effusion or PTX. Findings concerning for infection process. ASSESSMENT/PLAN: 62M active smoker with PMH of NIDDM, PUD, BPH, presents with respiratory failure , admitted to ICU for severe sepsis 2/2 CAP and acute hypoxic respiratory failure. # acute hypoxic respiratory failure - possibly 2/2 Interstitial Lung Disease with ?superimposed pneumonitis vs COPD exacerbation - have not been able to titrate down HFOT 2/2 frequent desaturations - continue Duoneb prn - Prednisone taper to 40mg for today - bibasilar crackles -> Lasix 40mg IVpush given this morning as there may be a component of capillary leak/vascular congestion # severe sepsis likely 2/2 CAP - s/p 7 days of IV antibiotics - mild leukocytosis improving today - CXR results concerning for infection, however, afebrile and WBCs improving - ID on board # extensive Right LE DVT - s/p IVC filter on 10/20/17, s/p thrombectomy with IR on 10/24/17 - pain controlled with Tylenol prn - Heparin drip continued - continue to monitor PTT - consider switching over to NOAC once no more procedures are indicated # thrombocytopenia - likely 2/2 sepsis - HIT ab slightly elevated, unequivocal - Heme on board - continue to monitor # macrocytic anemia - no overt signs of bleeding - transfuse if hgb < 7 - continue to monitor # NIDDM - BGMs - Novolog SSI - Levemir 10U daily # nicotine dependence - Nicoderm patch 7mg daily # hypophosphatemia - repleted with Phos-NaK packet # FEN - Fluids: po - Electrolytes: continue to monitor - Nutrition: diabetic diet # Prophylaxis - DVT ppx with Heparin drip - GI ppx with Protonix 40mg daily # dispo - would likely be a candidate for LTAC - referral sent Visit type - Emergency Visit Emergency Visit: Yes ED Registration Date: 10/17/17 Care time: The patient presented to the Emergency Department on the above date and was hospitalized for further evaluation of their emergent condition. - New Patient This patient is new to me today: No - Critical Care Critical Care patient: Yes Total Critical Care Time (in minutes): 45 Critical Care Statement: The care of this patient involved high complexity decision making to prevent further life threatening deterioration of the patient 's condition and/or to evaluate & treat vital organ system(s) failure or risk of failure.
[2017-10-27] MEDS ORDERED: HEMOQUE TEST 1 EACH EACH ONE (11:59)
--- NOTE | 2017-10-27 12:00 | PN ---
Teaching Attending Note Name of Resident: Jaxson Echevarria ATTENDING PHYSICIAN STATEMENT I saw and evaluated the patient. I reviewed the resident's note and discussed the case with the resident. I agree with the resident's findings and plan as documented. SUBJECTIVE: Patient seen and examined in the ICU. Remains on high flow oxygen therapy, quickly destaurates when settings are tapered. IV heparin drip continues. Reports that his breathing feels about the same. Dry cough. CXR: Some improvement in bilateral diffuse airspace disease OBJECTIVE: Intake & Output 10/24/17 10/25/17 10/26/17 10/27/17 23:59 23:59 23:59 23:59 Intake Total 1036 2793 755 655 Output Total 550 1700 3900 400 Balance 486 1093 -3145 255 Weight 174 lb 3.2 oz 173 lb 6.4 oz 171 lb 1 oz 173 lb 1 oz Last Vital Signs Temp Pulse Resp BP Pulse Ox 98.4 F 82 32 H 131/46 96 10/27/17 10:00 10/27/17 10:00 10/27/17 10:00 10/27/17 10:00 10/27/17 10:40 Active Medications Acetaminophen (Tylenol -) 650 mg PO Q6H PRN PRN Reason: FEVER OR PAIN Last Admin: 10/25/17 21:12 Dose: 650 mg Albuterol/Ipratropium (Duoneb -) 1 amp NEB Q6H PRN PRN Reason: SHORTNESS OF BREATH Last Admin: 10/26/17 06:32 Dose: 1 amp Chlorhexidine Gluconate (Hibiclens For Decolonization -) 1 applic TP HS SONAL Last Admin: 10/26/17 22:38 Dose: 1 applic Furosemide (Lasix Injection -) 40 mg IVPUSH ONCE ONE Stop: 10/27/17 12:16 Heparin Sodium (Porcine) (Heparin -) 1,000 unit IVPUSH PRN PRN PRN Reason: Heparin Last Admin: 10/26/17 12:54 Dose: 1,000 unit Heparin Sodium (Porcine) (Heparin -) 5,000 unit IVPUSH PRN PRN PRN Reason: Heparin Last Admin: 10/25/17 21:11 Dose: 5,000 unit HEPARIN SOD,PORK IN 0.45% NACL (Heparin-1/2ns 25,000 Units/500) 25,000 units in 500 mls @ 20 mls/hr IVPB TITR SONAL; 1,000 UNITS/HR PRN Reason: Protocol Last Admin: 10/26/17 22:40 Dose: Not Given Insulin Aspart (Novolog Vial Sliding Scale -) 1 vial SQ ACHS [facility] PRN Reason: Protocol Last Admin: 10/27/17 07:42 Dose: Not Given Insulin Detemir (Levemir Vial) 10 units SQ DAILY [facility] Last Admin: 10/27/17 10:57 Dose: 10 units Nicotine (Nicoderm Patch -) 7 mg TD DAILY [facility] Last Admin: 10/27/17 10:55 Dose: 7 mg Pantoprazole Sodium (Protonix -) 40 mg PO DAILY [facility] Last Admin: 10/27/17 10:55 Dose: 40 mg Potassium Phos/Sodium Phos (Phos-Nak Packet -) 1 packet PO ONCE ONE Stop: 10/27/17 12:16 Prednisone (Deltasone -) 40 mg PO DAILY [facility] Last Admin: 10/27/17 10:55 Dose: 40 mg Gen: mildly tachypneic on HFOT Heart: RRR Lung: coarse bibasilar rales/crackles Abd: soft, nontender Ext: decreasing RLE edema Laboratory Results - last 24 hr 10/23/17 10/23/17 10/23/17 12:44 16:44 21:41 WBC RBC Hgb Hct MCV MCH MCHC RDW Plt Count MPV Neutrophils % Lymphocytes % Monocytes % Eosinophils % Basophils % PTT (Actin FS) Sodium Potassium Chloride Carbon Dioxide Anion Gap BUN Creatinine Creat Clearance w eGFR POC Glucometer [phone] 330.15104 Random Glucose Calcium Phosphorus Magnesium Total Bilirubin AST ALT Alkaline Phosphatase Total Protein Albumin 10/24/17 10/24/17 10/24/17 06:10 10:27 21:16 WBC RBC Hgb Hct MCV MCH MCHC RDW Plt Count MPV Neutrophils % Lymphocytes % Monocytes % Eosinophils % Basophils % PTT (Actin FS) Sodium Potassium Chloride Carbon Dioxide Anion Gap BUN Creatinine Creat Clearance w eGFR POC Glucometer 228.77211 279.01102 186.97679 Random Glucose Calcium Phosphorus Magnesium Total Bilirubin AST ALT Alkaline Phosphatase Total Protein Albumin 10/25/17 10/25/17 10/25/17 05:42 11:33 17:29 WBC RBC Hgb Hct MCV MCH MCHC RDW Plt Count MPV Neutrophils % Lymphocytes % Monocytes % Eosinophils % Basophils % PTT (Actin FS) Sodium Potassium Chloride Carbon Dioxide Anion Gap BUN Creatinine Creat Clearance w eGFR POC Glucometer 153.53877 234.54345 [phone] Random Glucose Calcium Phosphorus Magnesium Total Bilirubin AST ALT Alkaline Phosphatase Total Protein Albumin 10/26/17 10/26/17 10/26/17 11:40 12:34 16:17 WBC RBC Hgb Hct MCV MCH MCHC RDW Plt Count MPV Neutrophils % Lymphocytes % Monocytes % Eosinophils % Basophils % PTT (Actin FS) 47.6 H Sodium Potassium Chloride Carbon Dioxide Anion Gap BUN Creatinine Creat Clearance w eGFR POC Glucometer 186.97731 337.41972 Random Glucose Calcium Phosphorus Magnesium Total Bilirubin AST ALT Alkaline Phosphatase Total Protein Albumin 10/26/17 10/26/17 10/26/17 16:37 18:30 21:48 WBC RBC Hgb Hct MCV MCH MCHC RDW Plt Count MPV Neutrophils % Lymphocytes % Monocytes % Eosinophils % Basophils % PTT (Actin FS) 60.8 H Sodium Potassium Chloride Carbon Dioxide Anion Gap BUN Creatinine Creat Clearance w eGFR POC Glucometer [phone] Random Glucose Calcium Phosphorus Magnesium Total Bilirubin AST ALT Alkaline Phosphatase Total Protein Albumin 10/27/17 10/27/17 10/27/17 05:00 05:00 05:00 WBC 10.8 H RBC 2.31 L Hgb 7.7 L Hct 23.4 L MCV 101.6 H MCH 33.3 MCHC 32.8 RDW 15.9 Plt Count 89 L MPV 9.1 Neutrophils % 79.5 Lymphocytes % 12.0 Monocytes % 5.1 D Eosinophils % 3.2 Basophils % 0.2 PTT (Actin FS) 93.6 H D Sodium 142 Potassium 3.8 Chloride 108 H Carbon Dioxide 25 Anion Gap 9 BUN 16 Creatinine 0.7 Creat Clearance w eGFR > 60 POC Glucometer Random Glucose 103 D Calcium 7.5 L Phosphorus 2.1 L Magnesium 2.1 Total Bilirubin 0.5 AST 12 L D ALT 13 Alkaline Phosphatase 86 Total Protein 5.9 L Albumin 2.2 L 10/27/17 05:43 WBC RBC Hgb Hct MCV MCH MCHC RDW Plt Count MPV Neutrophils % Lymphocytes % Monocytes % Eosinophils % Basophils % PTT (Actin FS) Sodium Potassium Chloride Carbon Dioxide Anion Gap BUN Creatinine Creat Clearance w eGFR POC Glucometer 140.13049 Random Glucose Calcium Phosphorus Magnesium Total Bilirubin AST ALT Alkaline Phosphatase Total Protein Albumin Problem List - Problems (1) Acute respiratory failure with hypoxia Code(s): J96.01 - ACUTE RESPIRATORY FAILURE WITH HYPOXIA (2) Pneumonia Code(s): J18.9 - PNEUMONIA, UNSPECIFIED ORGANISM (3) Diabetes Code(s): E11.9 - TYPE 2 DIABETES MELLITUS WITHOUT COMPLICATIONS ASSESSMENT AND PLAN: Acute Hypoxic Respiratory Failure Pneumonia Sepsis Acute Diastolic Heart Failure improved Acute Kidney Injury improving Lactic Acidosis resolved DM RLE DVT - antibiotics per ID - Wean steroids - titrate FiO2, flow rate to keep SpO2 88% to 92% - Another dose of Lasix as there is likely a component of capillary leak/ vascular congestion - monitor urine output, creatinine - continue anticoagulation - PO as tolerated - Continue ICU monitoring for tenuous respiratory status - May eventually need LTAC placement Dr Souza Critical care time spent in reviewing chart, evaluating patient and formulating plan 36 min
[2017-10-27] MEDS ORDERED: FUROSEMIDE 40 MG/4 ML INJECTABLE VIAL IVPUSH ONE (12:15)
[2017-10-27] MEDS ORDERED: NAPH,MB-DB/K PH,MBDB POWDER PACKET PO ONE ×3 (12:15→18:38)
[2017-10-27] MEDS ORDERED: morphine SULFATE 4 MG/ML VIAL ONE (12:38)
[2017-10-27] MEDS ORDERED: morphine CARPU-JECT 8 MG/1 ML DISP.SYRIN IVPUSH ONE (14:00)
[2017-10-27] MEDS: HEPARIN SOD,PORK IN 0.45% NACL 25,000 UNITS/500 ML INFUS.BAG IVPB SCH (19:00)
--- NOTE | 2017-10-27 19:23 | PN ---
Teaching Attending Note Name of Resident: Mimi Pizarro ATTENDING PHYSICIAN STATEMENT I saw and evaluated the patient. I reviewed the resident's note and discussed the case with the resident. I agree with the resident's findings and plan as documented. SUBJECTIVE: Patient complains of cough, SOB. OBJECTIVE: Vital Signs Period Temp Pulse Resp BP Sys/Sutton Pulse Ox Last 24 Hr 98.2 F-98.6 F 60-82 22-32 94-131/42-66 90-97 HEART: S1S2, RRR LUNGS: Bibasilar crackles ABDOMEN: Soft, non-tender, non-distended, normal BS EXTREMITIES: Trace edema RLE Laboratory Results - last 24 hr 10/26/17 10/26/17 10/27/17 18:30 21:48 05:00 WBC RBC Hgb Hct MCV MCH MCHC RDW Plt Count MPV Neutrophils % Lymphocytes % Monocytes % Eosinophils % Basophils % PTT (Actin FS) 60.8 H 93.6 H D Sodium Potassium Chloride Carbon Dioxide Anion Gap BUN Creatinine Creat Clearance w eGFR POC Glucometer [phone] Random Glucose Calcium Phosphorus Magnesium Total Bilirubin AST ALT Alkaline Phosphatase Total Protein Albumin 10/27/17 10/27/17 10/27/17 05:00 05:00 05:43 WBC 10.8 H RBC 2.31 L Hgb 7.7 L Hct 23.4 L MCV 101.6 H MCH 33.3 MCHC 32.8 RDW 15.9 Plt Count 89 L MPV 9.1 Neutrophils % 79.5 Lymphocytes % 12.0 Monocytes % 5.1 D Eosinophils % 3.2 Basophils % 0.2 PTT (Actin FS) Sodium 142 Potassium 3.8 Chloride 108 H Carbon Dioxide 25 Anion Gap 9 BUN 16 Creatinine 0.7 Creat Clearance w eGFR > 60 POC Glucometer [phone] Random Glucose 103 D Calcium 7.5 L Phosphorus 2.1 L Magnesium 2.1 Total Bilirubin 0.5 AST 12 L D ALT 13 Alkaline Phosphatase 86 Total Protein 5.9 L Albumin 2.2 L 10/27/17 12:05 WBC RBC Hgb Hct MCV MCH MCHC RDW Plt Count MPV Neutrophils % Lymphocytes % Monocytes % Eosinophils % Basophils % PTT (Actin FS) Sodium Potassium Chloride Carbon Dioxide Anion Gap BUN Creatinine Creat Clearance w eGFR POC Glucometer [phone] Random Glucose Calcium Phosphorus Magnesium Total Bilirubin AST ALT Alkaline Phosphatase Total Protein Albumin Current Medications Generic Name Dose Route Start Last Admin Trade Name Freq PRN Reason Stop Dose Admin Acetaminophen 650 mg 10/19/17 22:58 10/25/17 21:12 Tylenol - PO 650 mg Q6H PRN Administration FEVER OR PAIN Albuterol/Ipratropium 1 amp 10/20/17 14:59 10/26/17 06:32 Duoneb - NEB 1 amp Q6H PRN Administration SHORTNESS OF BREATH Chlorhexidine Gluconate 1 applic 10/17/17 22:00 10/26/17 22:38 Hibiclens For Decolonization - TP 1 applic HS SONAL Administration Heparin Sodium (Porcine) 1,000 unit 10/20/17 17:59 10/26/17 12:54 Heparin - IVPUSH 1,000 unit PRN PRN Administration Heparin Heparin Sodium (Porcine) 5,000 unit 10/20/17 17:59 10/25/17 21:11 Heparin - IVPUSH 5,000 unit PRN PRN Administration Heparin HEPARIN SOD,PORK IN 0.45% NACL 25,000 units in 500 mls @ 20 mls/hr 10/20/17 18 :04 10/26/17 22:40 Heparin-1/2ns 25,000 Units/500 IVPB Not Given TITR [facility]ON[facility] Protocol 1,000 UNITS/HR Insulin Aspart 1 vial 10/17/17 16:30 10/27/17 18:26 Novolog Vial Sliding Scale - SQ Not Given ACHS [facility] Protocol Insulin Detemir 10 units 10/22/17 10:00 10/27/17 10:57 Levemir Vial SQ 10 units DAILY [facility] Administration Nicotine 7 mg 10/19/17 12:45 10/27/17 10:55 Nicoderm Patch - TD 7 mg DAILY [facility] Administration Pantoprazole Sodium 40 mg 10/25/17 10:00 10/27/17 10:55 Protonix - PO 40 mg DAILY [facility] Administration Prednisone 40 mg 10/24/17 10:00 10/27/17 10:55 Deltasone - PO 40 mg DAILY [facility] Administration ASSESSMENT AND PLAN: This is a 62 yo man with history of NIDDM, PUD, BPH who was admitted with acute hypoxic respiratory failure and extensive RLE DVT 1. Acute hypoxic respiratory failure secondary to pneumonia, acute diastolic heart failure - Remains on high flow oxygen - Maintain saturation >88% - Continue Prednisone, Lasix as needed 2. RLE DVT - s/p IVC filter 10/20 - s/p thrombectomy 10/24 - Continue heparin IV drip 3. Severe sepsis secondary to pneumonia - Improved - Completed antibiotics 4. Thrombocytopenia - Worsening - HIT Ab thought to be falsely elevated 5. Acute kidney injury - Resolved 6. Type 2 DM - Continue Levemir, Novolog sliding scale 7. BPH 8. Anemia, macrocytic 9. Nicotine dependence - Continue nicotine patch
[2017-10-27] MEDS: CHLORHEXIDINE GLUCONATE 4% CLEANSER FOR DECOLONIZATION TP SCH (21:42)
[2017-10-28] MEDS: INSULIN SLIDING SCALE (NOVOLOG) 1 VIAL SQ SCH ×4 (05:59→22:04)
[2017-10-28 06:20] LABS: BASO % 0.1 % (0-2.0); EOS % 3.9 % (0-4.5); HEMATOCRIT 24.8 % (35.4-49); HEMOGLOBIN 8.2 GM/dL (11.7-16.9); LYMPH % 17.7 % (8-40); MEAN CELL VOLUME 102.9 fl (80-96); MEAN PLT VOLUME 9.8 fl (7.5-11.1); MONO % 6.8 % (3.8-10.2); NEUT % 71.5 % (42.8-82.8); PLATELET COUNT 92 K/MM3 (134-434); RBC 2.41 M/mm3 (4.00-5.60); RDW 16.7 % (11.9-15.9); WHITE BLOOD COUNT 9.4 K/mm3 (4.0-10.0)
--- NOTE | 2017-10-28 07:14 | PN ---
Progress Note (short form) - Note Progress Note: c/o cough productive of white sputum. some dyspnea. has not been out of bed since arrival to the ER. denies Cp, fever. chills, cough, n/V/C/D Current Medications Generic Name Dose Route Start Last Admin Trade Name Freq PRN Reason Stop Dose Admin Acetaminophen 650 mg 10/19/17 22:58 10/25/17 21:12 Tylenol - PO 650 mg Q6H PRN Administration FEVER OR PAIN Albuterol/Ipratropium 1 amp 10/20/17 14:59 10/26/17 06:32 Duoneb - NEB 1 amp Q6H PRN Administration SHORTNESS OF BREATH Chlorhexidine Gluconate 1 applic 10/17/17 22:00 10/27/17 21:42 Hibiclens For Decolonization - TP 1 applic HS SONAL Administration Heparin Sodium (Porcine) 1,000 unit 10/20/17 17:59 10/26/17 12:54 Heparin - IVPUSH 1,000 unit PRN PRN Administration Heparin Heparin Sodium (Porcine) 5,000 unit 10/20/17 17:59 10/25/17 21:11 Heparin - IVPUSH 5,000 unit PRN PRN Administration Heparin HEPARIN SOD,PORK IN 0.45% NACL 25,000 units in 500 mls @ 20 mls/hr 10/20/17 18 :04 10/27/17 19:00 Heparin-1/2ns 25,000 Units/500 IVPB 1,050 units/hr TITR SONAL 21 mls/hr Protocol Administration 1,000 UNITS/HR Insulin Aspart 1 vial 10/17/17 16:30 10/28/17 05:59 Novolog Vial Sliding Scale - SQ Not Given ACHS [facility] Protocol Insulin Detemir 10 units 10/22/17 10:00 10/27/17 10:57 Levemir Vial SQ 10 units DAILY [facility] Administration Nicotine 7 mg 10/19/17 12:45 10/27/17 10:55 Nicoderm Patch - TD 7 mg DAILY [facility] Administration Pantoprazole Sodium 40 mg 10/25/17 10:00 10/27/17 10:55 Protonix - PO 40 mg DAILY [facility] Administration Prednisone 40 mg 10/24/17 10:00 10/27/17 10:55 Deltasone - PO 40 mg DAILY [facility] Administration Last Vital Signs Temp Pulse Resp BP Pulse Ox 98.2 F 67 19 119/47 98 10/28/17 05:56 10/28/17 05:56 10/28/17 05:56 10/28/17 05:56 10/28/17 06:45 Intake & Output 10/25/17 10/26/17 10/27/17 10/28/17 23:59 23:59 23:59 23:59 Intake Total 2793 755 655 Output Total 1700 3900 2600 Balance 2113 -3098 -0816 Weight 173 lb 6.4 oz 171 lb 1 oz 173 lb 1 oz 172 lb 8 oz General NAD CV S1 s2 RRR no murmur/rub/gallop Lungs corase breath sounds, +rhonchi Abdomen soft NT/ND Extremities reduced RLE edema, soft, 2+ pulses. non tender. LLE no edema or tender CBCD WBC 9.4 K/mm3 (4.0-10.0) 10/28/17 05:50 RBC 2.41 M/mm3 (4.00-5.60) L 10/28/17 05:50 Hgb 8.2 GM/dL (11.7-16.9) L 10/28/17 05:50 Hct 24.8 % (35.4-49) L 10/28/17 05:50 MCV 102.9 fl (80-96) H 10/28/17 05:50 MCHC 33.0 g/dl (32.0-35.9) 10/28/17 05:50 RDW 16.7 % (11.9-15.9) H 10/28/17 05:50 Plt Count 92 K/MM3 (134-434) L 10/28/17 05:50 MPV 9.8 fl (7.5-11.1) 10/28/17 05:50 CMP Sodium 140 mmol/L (136-145) 10/28/17 05:50 Potassium 3.9 mmol/L (3.5-5.1) 10/28/17 05:50 Chloride 104 mmol/L (98-107) 10/28/17 05:50 Carbon Dioxide 32 mmol/L (21-32) D 10/28/17 05:50 Anion Gap 4 (8-16) L 10/28/17 05:50 BUN 17 mg/dL (7-18) 10/28/17 05:50 Creatinine 0.7 mg/dL (0.7-1.3) 10/28/17 05:50 Creat Clearance w eGFR > 60 (>60) 10/28/17 05:50 Calcium 7.8 mg/dL (8.5-10.1) L 10/28/17 05:50 Total Bilirubin 0.8 mg/dL (0.2-1.0) D 10/28/17 05:50 AST 13 U/L (15-37) L 10/28/17 05:50 ALT 13 U/L (12-78) 10/28/17 05:50 Alkaline Phosphatase 81 U/L (45-117) 10/28/17 05:50 Total Protein 6.2 g/dl (6.4-8.2) L 10/28/17 05:50 Albumin 2.4 g/dl (3.4-5.0) L 10/28/17 05:50 ASSESSMENT AND PLAN: 62 yo M active smoker, pMHx of NIDDM, PUD, BPH admitted with acute hypoxic respiratory failure, and extensive RLE DVT 1.Acute hypoxic respiratory failure, suspect from ?ILD with pneumonitis- unknown eitology. has hx of smoking. been unable to titrate down high flow oxygen with frequent de-saturations. currently on 95% high flow. on pred 40mg. further managment per ICU team. 2. Extensive RLE DVT- s/p IVC filter 10/20. s/p thrombectomy 10/24. catheter directed heparin removed yesterday. on hep ggt. pain and swelling improved. will consider switching over to NOAC once no more procedures are indicated. 3. severe sepsis due to PNA- afebrile. lactic acidosis resolved. completed 7 day course of abx 4. thrombocytopenia- likely due to sepsis. continues to flucuate. HIT ab negative. no signs of bleeding monitor. 5. Acute diastolic CHF failure- lungs now clear after few lasix IV with good response. echo reported noted 6. MIRLANDE from sepsis- resolved. avoid nephrotoxic agents 7. DM- controlled. A1c 7.4. hold oral hypoglycemics. on iss 8. BPH- on flomax 9. continuous nicotine dependence- nicotine patch 10. MICU monitoring 11. would likely be candidate for LTAC. referral sent The care of this patient involved high complexity decision making to prevent further life threatening deterioration of the patient's condition and/or to evaluate & treat vital organ system(s) failure or risk of failure. 35 minutes Visit type - Emergency Visit Emergency Visit: Yes ED Registration Date: 10/17/17 Care time: The patient presented to the Emergency Department on the above date and was hospitalized for further evaluation of their emergent condition. - New Patient This patient is new to me today: No - Critical Care Critical Care patient: Yes Total Critical Care Time (in minutes): 35 Critical Care Statement: The care of this patient involved high complexity decision making to prevent further life threatening deterioration of the patient 's condition and/or to evaluate & treat vital organ system(s) failure or risk of failure. - Discharge Referral Referred to [facility] No
[2017-10-28 07:45] LABS: ALBUMIN 2.4 g/dl (3.4-5.0); ALK PHOS 81 U/L (45-117); ANION GAP 4 (8-16); BILIRUBIN,TOTAL 0.8 mg/dL (0.2-1.0); BLOOD UREA NITROGEN 17 mg/dL (7-18); CALCIUM 7.8 mg/dL (8.5-10.1); CHLORIDE 104 mmol/L (98-107); CO2 32 mmol/L (21-32); CREATININE 0.7 mg/dL (0.7-1.3); GLUCOSE,RANDOM 89 mg/dL (74-106); MAGNESIUM 1.9 mg/dL (1.8-2.4); PHOSPHOROUS 2.6 mg/dL (2.5-4.9); POTASSIUM 3.9 mmol/L (3.5-5.1); SGOT/AST 13 U/L (15-37); SGPT/ALT 13 U/L (12-78); SODIUM 140 mmol/L (136-145); TOT PROT 6.2 g/dl (6.4-8.2)
[2017-10-28] MEDS ORDERED: PT OWN MED DRAWER 7, Y5N ONE ×2 (09:40→15:54)
[2017-10-28] MEDS: INSULIN DETEMIR 100 UNITS/ML MDV SQ SCH (09:48)
[2017-10-28] MEDS: NICOTINE 7 MG/24 HOURS TOPICAL PATCH TD SCH (09:48)
[2017-10-28] MEDS: PANTOPRAZOLE 40 MG TABLET (FP) PO SCH (09:48)
[2017-10-28] MEDS: predniSONE 20 MG TABLET (UD) PO SCH (09:48)
--- NOTE | 2017-10-28 11:12 | PN ---
Progress Note (short form) - Note Progress Note: PULMONARY/CCM Pt seen and examined in the ICU. Remains on high flow O2 with 95% FiO2, flow rate 60L/min. Episodic desaturations with movement with some chest discomfort. Last Vital Signs Temp Pulse Resp BP Pulse Ox 98.7 F 79 23 125/45 100 10/28/17 10:00 10/28/17 10:00 10/28/17 10:00 10/28/17 10:00 10/28/17 09:00 Intake & Output 10/25/17 10/26/17 10/27/17 10/28/17 23:59 23:59 23:59 23:59 Intake Total 2793 755 655 Output Total 1700 3900 2600 Balance 2110 -4706 -1748 Weight 78.653 kg 77.593 kg 78.5 kg 78.245 kg Gen: mildly tachypneic at rest Heart: RRR Lung: bibasilar rales Abd: soft, nontender Ext: no edema CBC, BMP 10/28/17 05:50 10/28/17 05:50 Active Medications Acetaminophen (Tylenol -) 650 mg PO Q6H PRN PRN Reason: FEVER OR PAIN Last Admin: 10/25/17 21:12 Dose: 650 mg Albuterol/Ipratropium (Duoneb -) 1 amp NEB Q6H PRN PRN Reason: SHORTNESS OF BREATH Last Admin: 10/26/17 06:32 Dose: 1 amp Chlorhexidine Gluconate (Hibiclens For Decolonization -) 1 applic TP HS SONAL Last Admin: 10/27/17 21:42 Dose: 1 applic Heparin Sodium (Porcine) (Heparin -) 1,000 unit IVPUSH PRN PRN PRN Reason: Heparin Last Admin: 10/26/17 12:54 Dose: 1,000 unit Heparin Sodium (Porcine) (Heparin -) 5,000 unit IVPUSH PRN PRN PRN Reason: Heparin Last Admin: 10/25/17 21:11 Dose: 5,000 unit HEPARIN SOD,PORK IN 0.45% NACL (Heparin-1/2ns 25,000 Units/500) 25,000 units in 500 mls @ 20 mls/hr IVPB TITR SONAL; 1,000 UNITS/HR PRN Reason: Protocol Last Admin: 10/27/17 19:00 Dose: 1,050 units/hr, 21 mls/hr Insulin Aspart (Novolog Vial Sliding Scale -) 1 vial SQ ACHS [facility] PRN Reason: Protocol Last Admin: 10/28/17 05:59 Dose: Not Given Insulin Detemir (Levemir Vial) 10 units SQ DAILY [facility] Last Admin: 10/28/17 09:48 Dose: 10 units Nicotine (Nicoderm Patch -) 7 mg TD DAILY [facility] Last Admin: 10/28/17 09:48 Dose: 7 mg Pantoprazole Sodium (Protonix -) 40 mg PO DAILY [facility] Last Admin: 10/28/17 09:48 Dose: 40 mg Prednisone (Deltasone -) 40 mg PO DAILY [facility] Last Admin: 10/28/17 09:48 Dose: 40 mg A/P Acute Hypoxic Respiratory Failure Pneumonia Sepsis Interstitial Lung Disease Acute Diastolic Heart Failure improved Acute Kidney Injury improving Lactic Acidosis resolved DM RLE DVT - antibiotics completed - continue prednisone - titrate FiO2, flow rate to keep SpO2 >90% - lasix as needed - monitor urine output, creatinine - continue anticoagulation, can start PO if no further procedures planned - PO as tolerated - continue ICU monitoring for tenuous respiratory status - agree with LTAC placement critical care time spent in reviewing chart, evaluating patient and formulating plan 35 min Problem List - Problems (1) Acute respiratory failure with hypoxia Code(s): J96.01 - ACUTE RESPIRATORY FAILURE WITH HYPOXIA (2) Pneumonia Code(s): J18.9 - PNEUMONIA, UNSPECIFIED ORGANISM (3) Diabetes Code(s): E11.9 - TYPE 2 DIABETES MELLITUS WITHOUT COMPLICATIONS
--- NOTE | 2017-10-28 13:35 | PN ---
Progress Note (short form) - Note Progress Note: Pt seen and examined He feels ok labs reviewed O/E General: Appears dyspneic Cardiovascular: Yes: Regular Rate and Rhythm Respiratory: Yes: Rales (scattered) Gastrointestinal: Yes: Normal Bowel Sounds, Soft. Neurological: Yes: Alert, Oriented LE: calf swelling on the right side , improved, catheter removed Vital Signs Period Temp Pulse Resp BP Sys/Sutton Pulse Ox Last 24 Hr 97.9 F-98.7 F 53-83 14-24 91-125/45-53 97-100 CBC, BMP 10/28/17 05:50 10/28/17 05:50 Active Medications Generic Name Dose Route Start Last Admin Trade Name Freq PRN Reason Stop Dose Admin Acetaminophen 650 mg 10/19/17 22:58 10/25/17 21:12 Tylenol - PO 650 mg Q6H PRN Administration FEVER OR PAIN Albuterol/Ipratropium 1 amp 10/20/17 14:59 10/26/17 06:32 Duoneb - NEB 1 amp Q6H PRN Administration SHORTNESS OF BREATH Chlorhexidine Gluconate 1 applic 10/17/17 22:00 10/27/17 21:42 Hibiclens For Decolonization - TP 1 applic HS [facility] Administration Heparin Sodium (Porcine) 1,000 unit 10/20/17 17:59 10/26/17 12:54 Heparin - IVPUSH 1,000 unit PRN PRN Administration Heparin Heparin Sodium (Porcine) 5,000 unit 10/20/17 17:59 10/25/17 21:11 Heparin - IVPUSH 5,000 unit PRN PRN Administration Heparin HEPARIN SOD,PORK IN 0.45% NACL 25,000 units in 500 mls @ 20 mls/hr 10/20/17 18 :04 10/27/17 19:00 Heparin-1/2ns 25,000 Units/500 IVPB 1,050 units/hr TITR [facility] 21 mls/hr Protocol Administration 1,000 UNITS/HR Insulin Aspart 1 vial 10/17/17 16:30 10/28/17 05:59 Novolog Vial Sliding Scale - SQ Not Given ACHS [facility] Protocol Insulin Detemir 10 units 10/22/17 10:00 10/28/17 09:48 Levemir Vial SQ 10 units DAILY [facility] Administration Nicotine 7 mg 10/19/17 12:45 10/28/17 09:48 Nicoderm Patch - TD 7 mg DAILY [facility] Administration Pantoprazole Sodium 40 mg 10/25/17 10:00 10/28/17 09:48 Protonix - PO 40 mg DAILY [facility] Administration Prednisone 40 mg 10/24/17 10:00 10/28/17 09:48 Deltasone - PO 40 mg DAILY [facility] Administration Assessment/Plan Extensive RLE DVT -On heparin, aim for PTT of 50-65. -s/p thrombectomy, s/p IVC -HIT panel noted, for KAY ( most likely HIT ab is Falsely elevated OD -0.44 , Probabaility of KAY being positive is less than 5%). -oral NOACs once able to.(pending KAY) Thrombocytopenia: -will monitor -stabilising -clear onset after thrombolysis Acute hypoxic respiratory failure ?ILD: -On HFO, O2 sat remains low -mgmt per ICU./Pulm Nonspecific mediastinal LAD: -OP w/u
--- NOTE | 2017-10-28 17:13 | EKG ---
Test Reason : Blood Pressure : / mmHG Vent. Rate : 070 BPM Atrial Rate : 070 BPM P-R Int : 124 ms QRS Dur : 098 ms QT Int : 410 ms P-R-T Axes : 033 034 -01 degrees QTc Int : 442 ms NORMAL SINUS RHYTHM MODERATE VOLTAGE CRITERIA FOR LVH, MAY BE NORMAL VARIANT NONSPECIFIC ST ABNORMALITY ABNORMAL ECG WHEN COMPARED WITH ECG OF 20-OCT-2017 08:15, NON-SPECIFIC CHANGE IN ST SEGMENT IN INFERIOR LEADS INVERTED T WAVES HAVE REPLACED NONSPECIFIC T WAVE ABNORMALITY IN INFERIOR LEADS NONSPECIFIC T WAVE ABNORMALITY NOW EVIDENT IN ANTERIOR LEADS Confirmed by GABY HEATH MD ([id number]) on 10/28/2017 5:13:25 PM Referred By: Confirmed By:GABY HEATH MD
[2017-10-28] MEDS: HEPARIN SOD,PORK IN 0.45% NACL 25,000 UNITS/500 ML INFUS.BAG IVPB SCH (22:04)
[2017-10-28] MEDS: CHLORHEXIDINE GLUCONATE 4% CLEANSER FOR DECOLONIZATION TP SCH (22:04)
[2017-10-29] MEDS: INSULIN SLIDING SCALE (NOVOLOG) 1 VIAL SQ SCH ×4 (06:19→21:55)
[2017-10-29 06:21] LABS: BASO % 0.3 % (0-2.0); EOS % 4.2 % (0-4.5); HEMATOCRIT 23.9 % (35.4-49); LYMPH % 14.8 % (8-40); MCH 33.9 pg (25.7-33.7); MCHC 33.3 g/dl (32.0-35.9); MEAN CELL VOLUME 101.8 fl (80-96); MEAN PLT VOLUME 9.6 fl (7.5-11.1); MONO % 6.5 % (3.8-10.2); NEUT % 74.2 % (42.8-82.8); PLATELET COUNT 96 K/MM3 (134-434); RBC 2.35 M/mm3 (4.00-5.60); RDW 16.4 % (11.9-15.9); WHITE BLOOD COUNT 9.5 K/mm3 (4.0-10.0)
[2017-10-29 07:12] LABS: ALBUMIN 2.3 g/dl (3.4-5.0); ANION GAP 6 (8-16); BILIRUBIN,TOTAL 0.6 mg/dL (0.2-1.0); BLOOD UREA NITROGEN 14 mg/dL (7-18); CALCIUM 7.6 mg/dL (8.5-10.1); CHLORIDE 103 mmol/L (98-107); CO2 31 mmol/L (21-32); CREATININE 0.7 mg/dL (0.7-1.3); GLUCOSE,RANDOM 116 mg/dL (74-106); MAGNESIUM 1.7 mg/dL (1.8-2.4); PHOSPHOROUS 2.2 mg/dL (2.5-4.9); POTASSIUM 3.9 mmol/L (3.5-5.1); SGOT/AST 20 U/L (15-37); SGPT/ALT 15 U/L (12-78); SODIUM 140 mmol/L (136-145); TOT PROT 6.2 g/dl (6.4-8.2)
[2017-10-29 07:13] LABS: ALK PHOS 79 U/L (45-117)
--- NOTE | 2017-10-29 07:21 | PN ---
Teaching Attending Note Name of Resident: Olivia Lucas ATTENDING PHYSICIAN STATEMENT I saw and evaluated the patient. I reviewed the resident's note and discussed the case with the resident. I agree with the resident's findings and plan as documented. SUBJECTIVE:dyspnic at rest. unable to get out of bed due to dypnea. c/o R rib cage pain. denies cough, fever, chills, N/V/C/D. leg pain improved OBJECTIVE: Last Vital Signs Temp Pulse Resp BP Pulse Ox 98.5 F 71 18 132/54 98 10/29/17 06:00 10/29/17 06:00 10/29/17 06:00 10/29/17 06:00 10/29/17 07:19 Intake & Output 10/26/17 10/27/17 10/28/17 10/29/17 23:59 23:59 23:59 23:59 Intake Total 755 655 552 502 Output Total 3900 2600 2800 700 Balance -3145 -1945 -2248 -198 Weight 171 lb 1 oz 173 lb 1 oz 172 lb 8 oz 174 lb 8 oz General NAD thin appearing male CV S1 S2 RRR no murmur/rub/gallop Lungs coarse breath sounds, +rhonchi diffuse, poor inspiratory effort Abdomen soft NT/ND no tenderness over ribs Extremities RLE non pitting edema, calf not tender, pulses intact ASSESSMENT AND PLAN: 62 yo M active smoker, pMHx of NIDDM, PUD, BPH admitted with acute hypoxic respiratory failure, and extensive RLE DVT 1.Acute hypoxic respiratory failure, suspect from ?ILD with pneumonitis- unknown eitology. has hx of smoking. currently on 88% on 95% FIO2. unable to titrate down due to destaturates into the 60s. been unable to titrate down high flow oxygen with frequent de-saturations. will talk to pulm about possible more diuresis. on pred 40mg. further managment per ICU team. 2. Extensive RLE DVT- s/p IVC filter 10/20. s/p thrombectomy 10/24. on hep ggt. pain and swelling improved. will consider switching over to NOAC pending KAY results 3. severe sepsis due to PNA- afebrile. lactic acidosis resolved. completed 7 day course of abx 4. thrombocytopenia- likely due to sepsis. continues to flucuate. HIT ab negative. no signs of bleeding monitor. 5. Acute diastolic CHF failure- lungs now clear after few lasix IV with good response. echo reported noted 6. Hypophosphatemia-neutraphos 7. hypomagnesemia- mg 800mg 8. MIRLANDE from sepsis- resolved. avoid nephrotoxic agents 9. DM- controlled. A1c 7.4. hold oral hypoglycemics. on iss 10. BPH- on flomax 11. continuous nicotine dependence- nicotine patch 12. MICU monitoring 13. pending LTACH referral The care of this patient involved high complexity decision making to prevent further life threatening deterioration of the patient's condition and/or to evaluate & treat vital organ system(s) failure or risk of failure. 38 minutes
[2017-10-29] MEDS ORDERED: morphine CARPU-JECT 2 MG/1 ML DISP.SYRIN IVPUSH PRN (07:51)
[2017-10-29] MEDS ORDERED: NAPH,MB-DB/K PH,MBDB POWDER PACKET PO ONE (08:03)
[2017-10-29] MEDS ORDERED: MAGNESIUM OXIDE 400 MG TABLET (FP) PO ONE (08:03)
[2017-10-29] MEDS ORDERED: morphine CARPU-JECT 8 MG/1 ML DISP.SYRIN ONE (08:29)
[2017-10-29] MEDS ORDERED: morphine CARPU-JECT 10 MG/1 ML DISP.SYRIN IVPUSH PRN (08:42)
[2017-10-29] MEDS ORDERED: PT OWN MED DRAWER 7, Y5N ONE (09:06)
[2017-10-29] MEDS: predniSONE 20 MG TABLET (UD) PO SCH (09:09)
[2017-10-29] MEDS: PANTOPRAZOLE 40 MG TABLET (FP) PO SCH (09:10)
[2017-10-29] MEDS: NICOTINE 7 MG/24 HOURS TOPICAL PATCH TD SCH (09:10)
[2017-10-29] MEDS: INSULIN DETEMIR 100 UNITS/ML MDV SQ SCH (10:30)
--- NOTE | 2017-10-29 10:52 | PN ---
Progress Note (short form) - Note Progress Note: PULMONARY/CCM Pt seen and examined in the ICU. Remains on high flow O2 with 100% FiO2, flow rate 50L/min. States he feels better today. Last Vital Signs Temp Pulse Resp BP Pulse Ox 99.0 F 75 25 H 119/58 94 L 10/29/17 10:00 10/29/17 10:00 10/29/17 10:00 10/29/17 10:00 10/29/17 09:30 Intake & Output 10/26/17 10/27/17 10/28/17 10/29/17 23:59 23:59 23:59 23:59 Intake Total 755 655 552 502 Output Total 3900 2600 2800 700 Balance -3145 -1945 -2248 -198 Weight 77.593 kg 78.5 kg 78.245 kg 79.152 kg Gen: less tachypneic at rest Heart: RRR Lung: bibasilar rales Abd: soft, nontender Ext: RLE edema CBC, BMP 10/29/17 06:00 10/29/17 06:00 Active Medications Acetaminophen (Tylenol -) 650 mg PO Q6H PRN PRN Reason: FEVER OR PAIN Last Admin: 10/25/17 21:12 Dose: 650 mg Chlorhexidine Gluconate (Hibiclens For Decolonization -) 1 applic TP HS SONAL Last Admin: 10/28/17 22:04 Dose: 1 applic Heparin Sodium (Porcine) (Heparin -) 1,000 unit IVPUSH PRN PRN PRN Reason: Heparin Last Admin: 10/26/17 12:54 Dose: 1,000 unit Heparin Sodium (Porcine) (Heparin -) 5,000 unit IVPUSH PRN PRN PRN Reason: Heparin Last Admin: 10/25/17 21:11 Dose: 5,000 unit HEPARIN SOD,PORK IN 0.45% NACL (Heparin-1/2ns 25,000 Units/500) 25,000 units in 500 mls @ 20 mls/hr IVPB TITR SONAL; 1,000 UNITS/HR PRN Reason: Protocol Last Admin: 10/28/17 22:04 Dose: 1,050 units/hr, 21 mls/hr Insulin Aspart (Novolog Vial Sliding Scale -) 1 vial SQ ACHS [facility] PRN Reason: Protocol Last Admin: 10/29/17 06:19 Dose: Not Given Insulin Detemir (Levemir Vial) 10 units SQ DAILY [facility] Last Admin: 10/28/17 09:48 Dose: 10 units Morphine Sulfate (Morphine Injection -) 1 mg IVPUSH Q3H PRN PRN Reason: PAIN LEVEL 4 - 6 Nicotine (Nicoderm Patch -) 7 mg TD DAILY [facility] Last Admin: 10/29/17 09:10 Dose: 7 mg Pantoprazole Sodium (Protonix -) 40 mg PO DAILY [facility] Last Admin: 10/29/17 09:10 Dose: 40 mg Prednisone (Deltasone -) 40 mg PO DAILY [facility] Last Admin: 10/29/17 09:09 Dose: 40 mg A/P Acute Hypoxic Respiratory Failure Pneumonia Sepsis Interstitial Lung Disease Acute Diastolic Heart Failure improved Acute Kidney Injury improving Lactic Acidosis resolved DM RLE DVT - antibiotics completed - continue prednisone - titrate FiO2, flow rate to keep SpO2 >90% - lasix as needed, will give low dose today - monitor urine output, creatinine - continue anticoagulation, can start PO if no further procedures planned - PO as tolerated - continue ICU monitoring for tenuous respiratory status - agree with LTAC placement critical care time spent in reviewing chart, evaluating patient and formulating plan 35 min Problem List - Problems (1) Acute respiratory failure with hypoxia Code(s): J96.01 - ACUTE RESPIRATORY FAILURE WITH HYPOXIA (2) Pneumonia Code(s): J18.9 - PNEUMONIA, UNSPECIFIED ORGANISM (3) Diabetes Code(s): E11.9 - TYPE 2 DIABETES MELLITUS WITHOUT COMPLICATIONS
[2017-10-29] MEDS ORDERED: FUROSEMIDE 40 MG/4 ML INJECTABLE VIAL IVPUSH ONE (11:30)
--- NOTE | 2017-10-29 12:36 | PN ---
Physical Exam: SUBJECTIVE: Patient seen and examined by me at bedside. Patient states his breathing feels better but complains of right sided abdominal pain. Otherwise, patient denies any chest pain, nausea, vomiting, fever, chills, headaches, dysuria. OBJECTIVE: Vital Signs Period Temp Pulse Resp BP Sys/Sutton Pulse Ox Last 24 Hr 98.2 F-99.0 F 66-99 18-26 95-133/45-63 92-100 GENERAL: The patient is awake, alert, and fully oriented, in no acute distress. LUNGS: Bibasilar crackles and mild wheezing. HEART: Regular rate and rhythm, S1, S2 without murmur, rub or gallop. ABDOMEN: Soft, nontender, nondistended, normoactive bowel sounds, no guarding. EXTREMITIES: Right LE with swelling and pain on palpation improving. Left LE no edema. 2+ pulses pamela. PSYCH: Normal mood, normal affect. SKIN: Warm, dry, normal turgor, no rashes or lesions noted Laboratory Results - last 24 hr 10/29/17 10/29/17 10/29/17 06:00 06:00 08:45 WBC 9.5 RBC 2.35 L Hgb 8.0 L Hct 23.9 L MCV 101.8 H MCH 33.9 H MCHC 33.3 RDW 16.4 H Plt Count 96 L MPV 9.6 Neutrophils % 74.2 Lymphocytes % 14.8 Monocytes % 6.5 Eosinophils % 4.2 Basophils % 0.3 PTT (Actin FS) 73.5 H Sodium 140 Potassium 3.9 Chloride 103 Carbon Dioxide 31 Anion Gap 6 L BUN 14 Creatinine 0.7 Creat Clearance w eGFR > 60 Random Glucose 116 H D Calcium 7.6 L Phosphorus 2.2 L Magnesium 1.7 L Total Bilirubin 0.6 D AST 20 D ALT 15 Alkaline Phosphatase 79 Total Protein 6.2 L Albumin 2.3 L Active Medications Generic Name Dose Route Start Last Admin Trade Name Freq PRN Reason Stop Dose Admin Acetaminophen 650 mg 10/19/17 22:58 10/25/17 21:12 Tylenol - PO 650 mg Q6H PRN Administration FEVER OR PAIN Chlorhexidine Gluconate 1 applic 10/17/17 22:00 10/28/17 22:04 Hibiclens For Decolonization - TP 1 applic HS SONAL Administration Heparin Sodium (Porcine) 1,000 unit 10/20/17 17:59 10/26/17 12:54 Heparin - IVPUSH 1,000 unit PRN PRN Administration Heparin Heparin Sodium (Porcine) 5,000 unit 10/20/17 17:59 10/25/17 21:11 Heparin - IVPUSH 5,000 unit PRN PRN Administration Heparin HEPARIN SOD,PORK IN 0.45% NACL 25,000 units in 500 mls @ 20 mls/hr 10/20/17 18 :04 10/28/17 22:04 Heparin-1/2ns 25,000 Units/500 IVPB 1,050 units/hr TITR SONAL 21 mls/hr Protocol Administration 1,000 UNITS/HR Insulin Aspart 1 vial 10/17/17 16:30 10/29/17 06:19 Novolog Vial Sliding Scale - SQ Not Given ACHS [facility] Protocol Insulin Detemir 10 units 10/22/17 10:00 10/28/17 09:48 Levemir Vial SQ 10 units DAILY [facility] Administration Morphine Sulfate 1 mg 10/29/17 08:42 Morphine Injection - IVPUSH Q3H PRN PAIN LEVEL 4 - 6 Nicotine 7 mg 10/19/17 12:45 10/29/17 09:10 Nicoderm Patch - TD 7 mg DAILY [facility] Administration Pantoprazole Sodium 40 mg 10/25/17 10:00 10/29/17 09:10 Protonix - PO 40 mg DAILY [facility] Administration Prednisone 40 mg 10/24/17 10:00 10/29/17 09:09 Deltasone - PO 40 mg DAILY [facility] Administration ASSESSMENT/PLAN: 62M active smoker with PMH of NIDDM, PUD, BPH, presents with respiratory failure , admitted to ICU for severe sepsis 2/2 CAP and acute hypoxic respiratory failure. Acute hypoxic respiratory failure - Possibly 2/2 Interstitial Lung Disease with ?superimposed pneumonitis vs COPD exacerbation - have not been able to titrate down HFOT 2/2 frequent desaturations - continue Duoneb prn - Prednisone taper to 40mg for today - Low dose Lasix 20mg ordered as patient had crackles on lung examination Severe Sepsis likely 2/2 CAP-Resolved - Completed 7 days of Abx and is currently afebrile Extensive Right LE DVT - s/p IVC filter on 10/20/17, s/p thrombectomy with IR on - pain controlled with Tylenol prn and Morphine PRN - Heparin drip continued - continue to monitor PTT maintain 60-80 - consider switching over to NOAC once no more procedures are indicated Thrombocytopenia - likely 2/2 sepsis - HIT ab negative - No bleeding and can continue to monitor - Daily CBC Macrocytic Anemia - no overt signs of bleeding - transfuse if hgb < 7 - continue to monitor NIDDM - BGMs - Novolog SSI - Levemir 10U daily Nicotine Dependence - Nicoderm patch 7mg daily Hypophosphatemia - repleted with Phos-NaK packet Hypomagnesemia -Repleted with Magnesium 800mg PO BPH -continue Flomax 0.4mg daily F/E/N - Fluids: po - Electrolytes: hypophosphatemia, hypomagnesemia. replete and repeat - Nutrition: diabetic diet Prophylaxis - DVT ppx with Heparin drip - GI ppx with Protonix 40mg daily Disposition - would likely be a candidate for LTAC - referral sent Visit type - Emergency Visit Emergency Visit: Yes ED Registration Date: 10/17/17 Care time: The patient presented to the Emergency Department on the above date and was hospitalized for further evaluation of their emergent condition. - New Patient This patient is new to me today: Yes Date on this admission: 10/29/17 - Critical Care Critical Care patient: Yes Total Critical Care Time (in minutes): 45 Critical Care Statement: The care of this patient involved high complexity decision making to prevent further life threatening deterioration of the patient 's condition and/or to evaluate & treat vital organ system(s) failure or risk of failure.
--- NOTE | 2017-10-29 13:07 | PN ---
Progress Note (short form) - Note Progress Note: Pt seen and examined He feels ok some minor L. sided labs reviewed O/E General: Appears dyspneic Cardiovascular: Yes: Regular Rate and Rhythm Respiratory: Yes: Rales (scattered) Gastrointestinal: Yes: Normal Bowel Sounds, Soft. Neurological: Yes: Alert, Oriented LE: calf swelling on the right side , improved, catheter removed CBC, BMP 10/29/17 06:00 10/29/17 06:00 Active Medications Generic Name Dose Route Start Last Admin Trade Name Freq PRN Reason Stop Dose Admin Acetaminophen 650 mg 10/19/17 22:58 10/25/17 21:12 Tylenol - PO 650 mg Q6H PRN Administration FEVER OR PAIN Chlorhexidine Gluconate 1 applic 10/17/17 22:00 10/28/17 22:04 Hibiclens For Decolonization - TP 1 applic HS [facility]ONAL Administration Heparin Sodium (Porcine) 1,000 unit 10/20/17 17:59 10/26/17 12:54 Heparin - IVPUSH 1,000 unit PRN PRN Administration Heparin Heparin Sodium (Porcine) 5,000 unit 10/20/17 17:59 10/25/17 21:11 Heparin - IVPUSH 5,000 unit PRN PRN Administration Heparin HEPARIN SOD,PORK IN 0.45% NACL 25,000 units in 500 mls @ 20 mls/hr 10/20/17 18 :04 10/28/17 22:04 Heparin-1/2ns 25,000 Units/500 IVPB 1,050 units/hr TITR SONAL 21 mls/hr Protocol Administration 1,000 UNITS/HR Insulin Aspart 1 vial 10/17/17 16:30 10/29/17 06:19 Novolog Vial Sliding Scale - SQ Not Given ACHS [facility] Protocol Insulin Detemir 10 units 10/22/17 10:00 10/28/17 09:48 Levemir Vial SQ 10 units DAILY [facility] Administration Morphine Sulfate 1 mg 10/29/17 08:42 Morphine Injection - IVPUSH Q3H PRN PAIN LEVEL 4 - 6 Nicotine 7 mg 10/19/17 12:45 10/29/17 09:10 Nicoderm Patch - TD 7 mg DAILY [facility] Administration Pantoprazole Sodium 40 mg 10/25/17 10:00 10/29/17 09:10 Protonix - PO 40 mg DAILY [facility] Administration Prednisone 40 mg 10/24/17 10:00 10/29/17 09:09 Deltasone - PO 40 mg DAILY [facility] Administration Assessment/Plan Extensive RLE DVT -On heparin, aim for PTT of 50-65.follow heparin protocol. -s/p thrombectomy, s/p IVC -HIT panel noted, for KAY ( most likely HIT ab is Falsely elevated OD -0.44 , Probabaility of KAY being positive is less than 5%) moreover no worsening or new clots since the trhombectomy. -oral NOACs once able to.(pending KAY) Thrombocytopenia: -will monitor -stabilising -clear onset after thrombolysis Acute hypoxic respiratory failure ?ILD: -On HFO, O2 sat remains low -mgmt per ICU./Pulm Nonspecific mediastinal LAD: -OP w/u
[2017-10-29] MEDS: HEPARIN SOD,PORK IN 0.45% NACL 25,000 UNITS/500 ML INFUS.BAG IVPB SCH (21:56)
[2017-10-29] MEDS: CHLORHEXIDINE GLUCONATE 4% CLEANSER FOR DECOLONIZATION TP SCH (21:59)
[2017-10-30] MEDS: INSULIN SLIDING SCALE (NOVOLOG) 1 VIAL SQ SCH ×4 (06:35→22:12)
[2017-10-30] MEDS: ACETAMINOPHEN 325 MG TABLET (FP) PO PRN ×2 (07:20→17:10)
[2017-10-30 07:26] LABS: HEMATOCRIT 25.4 % (35.4-49); HEMOGLOBIN 8.1 GM/dL (11.7-16.9); MCH 32.7 pg (25.7-33.7); MCHC 32.1 g/dl (32.0-35.9); MEAN CELL VOLUME 101.9 fl (80-96); MEAN PLT VOLUME 9.4 fl (7.5-11.1); PLATELET COUNT 105 K/MM3 (134-434); RBC 2.49 M/mm3 (4.00-5.60); RDW 16.4 % (11.9-15.9); WHITE BLOOD COUNT 11.4 K/mm3 (4.0-10.0)
--- NOTE | 2017-10-30 07:26 | PN ---
Progress Note (short form) - Note Progress Note: c/o dyspnea at rest. unable to sit up in bed as his breathing becomes very labored. cough intermittently productive of white sputum. denies CP, fever, chills, N/V/C/D, no pain in RLE Current Medications Generic Name Dose Route Start Last Admin Trade Name Freq PRN Reason Stop Dose Admin Acetaminophen 650 mg 10/19/17 22:58 10/30/17 07:20 Tylenol - PO 650 mg Q6H PRN Administration FEVER OR PAIN Chlorhexidine Gluconate 1 applic 10/17/17 22:00 10/29/17 21:59 Hibiclens For Decolonization - TP 1 applic HS [facility] Administration Heparin Sodium (Porcine) 1,000 unit 10/20/17 17:59 10/26/17 12:54 Heparin - IVPUSH 1,000 unit PRN PRN Administration Heparin Heparin Sodium (Porcine) 5,000 unit 10/20/17 17:59 10/25/17 21:11 Heparin - IVPUSH 5,000 unit PRN PRN Administration Heparin HEPARIN SOD,PORK IN 0.45% NACL 25,000 units in 500 mls @ 20 mls/hr 10/20/17 18 :04 10/29/17 21:56 Heparin-1/2ns 25,000 Units/500 IVPB 1,050 units/hr TITR SONAL 21 mls/hr Protocol Administration 1,000 UNITS/HR Insulin Aspart 1 vial 10/17/17 16:30 10/30/17 06:35 Novolog Vial Sliding Scale - SQ Not Given ACHS [facility] Protocol Insulin Detemir 10 units 10/22/17 10:00 10/29/17 10:30 Levemir Vial SQ 10 units DAILY [facility] Administration Morphine Sulfate 1 mg 10/29/17 08:42 Morphine Injection - IVPUSH Q3H PRN PAIN LEVEL 4 - 6 Nicotine 7 mg 10/19/17 12:45 10/29/17 09:10 Nicoderm Patch - TD 7 mg DAILY [facility] Administration Pantoprazole Sodium 40 mg 10/25/17 10:00 10/29/17 09:10 Protonix - PO 40 mg DAILY [facility] Administration Prednisone 40 mg 10/24/17 10:00 10/29/17 09:09 Deltasone - PO 40 mg DAILY [facility] Administration Last Vital Signs Temp Pulse Resp BP Pulse Ox 98.8 F 66 22 115/53 99 10/30/17 06:00 10/30/17 06:00 10/30/17 06:00 10/30/17 06:00 10/30/17 02:46 Intake & Output 10/27/17 10/28/17 10/29/17 10/30/17 23:59 23:59 23:59 23:59 Intake Total 655 552 874 231 Output Total 2600 2800 3200 Balance -4 -3274 -0025 231 Weight 173 lb 1 oz 172 lb 8 oz 174 lb 8 oz 169 lb 8.568 oz General NAD thin appearing male CV S1 S2 RRR no murmur/rub/gallop Lungs coarse breath sounds, +rhonchi diffuse, poor inspiratory effort Abdomen soft NT/ND no tenderness over ribs Extremities no swelling or tenderness. 2+ pulses CBCD WBC 11.4 K/mm3 (4.0-10.0) H 10/30/17 05:20 RBC 2.49 M/mm3 (4.00-5.60) L 10/30/17 05:20 Hgb 8.1 GM/dL (11.7-16.9) L 10/30/17 05:20 Hct 25.4 % (35.4-49) L 10/30/17 05:20 MCV 101.9 fl (80-96) H 10/30/17 05:20 MCHC 32.1 g/dl (32.0-35.9) 10/30/17 05:20 RDW 16.4 % (11.9-15.9) H 10/30/17 05:20 Plt Count 105 K/MM3 (134-434) L 10/30/17 05:20 MPV 9.4 fl (7.5-11.1) 10/30/17 05:20 CMP Sodium 138 mmol/L (136-145) 10/30/17 05:20 Potassium 3.8 mmol/L (3.5-5.1) 10/30/17 05:20 Chloride 99 mmol/L (98-107) 10/30/17 05:20 Carbon Dioxide 33 mmol/L (21-32) H 10/30/17 05:20 Anion Gap 6 (8-16) L 10/30/17 05:20 BUN 15 mg/dL (7-18) 10/30/17 05:20 Creatinine 0.6 mg/dL (0.7-1.3) L 10/30/17 05:20 Creat Clearance w eGFR > 60 (>60) 10/30/17 05:20 Calcium 7.8 mg/dL (8.5-10.1) L 10/30/17 05:20 Total Bilirubin 0.6 mg/dL (0.2-1.0) 10/30/17 05:20 AST 18 U/L (15-37) 10/30/17 05:20 ALT 15 U/L (12-78) 10/30/17 05:20 Alkaline Phosphatase 77 U/L (45-117) 10/30/17 05:20 Total Protein 6.3 g/dl (6.4-8.2) L 10/30/17 05:20 Albumin 2.4 g/dl (3.4-5.0) L 10/30/17 05:20 ASSESSMENT AND PLAN: 62 yo M active smoker, pMHx of NIDDM, PUD, BPH admitted with acute hypoxic respiratory failure, and extensive RLE DVT 1.Acute hypoxic respiratory failure, suspect from ?ILD with pneumonitis- unknown eitology. has hx of smoking. currently on 88% on 95% FIO2 and 50L. unable to titrate down. frequent de-saturations. unable to sit up. possible lasix trial. on pred 40mg. further managment per ICU team. 2. Extensive RLE DVT- s/p IVC filter 10/20. s/p thrombectomy 10/24. on hep ggt. pain and swelling resolved. will consider switching over to NOAC pending KAY results 3. severe sepsis due to PNA- afebrile. lactic acidosis resolved. completed 7 day course of abx 4. thrombocytopenia- likely due to sepsis. continues to flucuate. HIT ab unequivocal, KAY pending. no signs of bleeding monitor. 5. Acute diastolic CHF failure- some congestion on CXR, . echo reported noted 6. Hypophosphatemia-resolved 7. hypomagnesemia- mg 800mg 8. MIRLANDE from sepsis- resolved. avoid nephrotoxic agents 9. DM- controlled. A1c 7.4. hold oral hypoglycemics. on iss 10. BPH- on flomax 11. continuous nicotine dependence- nicotine patch 12. MICU monitoring 13.LTACH referral sent yesterday Visit type - Emergency Visit Emergency Visit: Yes ED Registration Date: 10/17/17 Care time: The patient presented to the Emergency Department on the above date and was hospitalized for further evaluation of their emergent condition. - New Patient This patient is new to me today: No - Critical Care Critical Care patient: Yes Total Critical Care Time (in minutes): 36 Critical Care Statement: The care of this patient involved high complexity decision making to prevent further life threatening deterioration of the patient 's condition and/or to evaluate & treat vital organ system(s) failure or risk of failure. - Discharge Referral Referred to [facility] No
[2017-10-30 07:28] LABS: CHLORIDE 99 mmol/L (98-107); POTASSIUM 3.8 mmol/L (3.5-5.1); SODIUM 138 mmol/L (136-145)
[2017-10-30 07:42] LABS: ALBUMIN 2.4 g/dl (3.4-5.0); ALK PHOS 77 U/L (45-117); ANION GAP 6 (8-16); BILIRUBIN,TOTAL 0.6 mg/dL (0.2-1.0); BLOOD UREA NITROGEN 15 mg/dL (7-18); CALCIUM 7.8 mg/dL (8.5-10.1); CO2 33 mmol/L (21-32); CREATININE 0.6 mg/dL (0.7-1.3); GLUCOSE,RANDOM 116 mg/dL (74-106); MAGNESIUM 1.7 mg/dL (1.8-2.4); PHOSPHOROUS 2.6 mg/dL (2.5-4.9); SGOT/AST 18 U/L (15-37); SGPT/ALT 15 U/L (12-78); TOT PROT 6.3 g/dl (6.4-8.2)
[2017-10-30] MEDS ORDERED: ALPRAZolam 0.25 MG TABLET PO ONE (09:09)
[2017-10-30] MEDS ORDERED: PT OWN MED DRAWER 7, Y5N ONE (09:22)
[2017-10-30] MEDS: INSULIN DETEMIR 100 UNITS/ML MDV SQ SCH (09:24)
[2017-10-30] MEDS: predniSONE 20 MG TABLET (UD) PO SCH (09:24)
[2017-10-30] MEDS: NICOTINE 7 MG/24 HOURS TOPICAL PATCH TD SCH (09:25)
[2017-10-30] MEDS: PANTOPRAZOLE 40 MG TABLET (FP) PO SCH (09:25)
[2017-10-30] MEDS ORDERED: INSULIN DETEMIR 100 UNITS/ML MDV SQ ONE (09:57)
[2017-10-30 10:56] LABS: PLATELET ESTIMATE DECREASED
[2017-10-30] MEDS ORDERED: HEMOQUE TEST 1 EACH EACH ONE (11:21)
--- NOTE | 2017-10-30 11:33 | PN ---
Progress Note (short form) - Note Progress Note: Patient seen and examined c/o RUQ pain Last Vital Signs Temp Pulse Resp BP Pulse Ox 98.7 F 81 24 109/42 99 10/30/17 10:00 10/30/17 10:00 10/30/17 10:00 10/30/17 10:00 10/30/17 09:25 Cor: RSR, No murmurs, No gallops Lungs: Clear to P&A Abd: Soft, Normal bowel sounds, Ext:No significant edema Abnormal Lab Results 10/30/17 10/30/17 10/30/17 05:20 05:20 10:40 WBC 11.4 H RBC 2.49 L Hgb 8.1 L Hct 25.4 L MCV 101.9 H RDW 16.4 H Plt Count 105 L Neutrophils % (Manual) 86.0 H Lymphocytes % (Manual) 6.0 L Monocytes % (Manual) 2 L PTT (Actin FS) 38.9 H D Carbon Dioxide 33 H Anion Gap 6 L Creatinine 0.6 L Random Glucose 116 H Calcium 7.8 L Magnesium 1.7 L Total Protein 6.3 L Albumin 2.4 L Active Medications Acetaminophen (Tylenol -) 650 mg PO Q6H PRN PRN Reason: FEVER OR PAIN Last Admin: 10/30/17 07:20 Dose: 650 mg Chlorhexidine Gluconate (Hibiclens For Decolonization -) 1 applic TP HS [facility] Last Admin: 10/29/17 21:59 Dose: 1 applic Heparin Sodium (Porcine) (Heparin -) 1,000 unit IVPUSH PRN PRN PRN Reason: Heparin Last Admin: 10/26/17 12:54 Dose: 1,000 unit Heparin Sodium (Porcine) (Heparin -) 5,000 unit IVPUSH PRN PRN PRN Reason: Heparin Last Admin: 10/25/17 21:11 Dose: 5,000 unit HEPARIN SOD,PORK IN 0.45% NACL (Heparin-1/2ns 25,000 Units/500) 25,000 units in 500 mls @ 20 mls/hr IVPB TITR SONAL; 1,000 UNITS/HR PRN Reason: Protocol Last Admin: 10/29/17 21:56 Dose: 1,050 units/hr, 21 mls/hr Insulin Aspart (Novolog Vial Sliding Scale -) 1 vial SQ ACHS [facility] PRN Reason: Protocol Last Admin: 10/30/17 06:35 Dose: Not Given Insulin Detemir (Levemir Vial) 10 units SQ DAILY [facility] Last Admin: 10/30/17 09:24 Dose: 10 units Morphine Sulfate (Morphine Injection -) 1 mg IVPUSH Q3H PRN PRN Reason: PAIN LEVEL 4 - 6 Nicotine (Nicoderm Patch -) 7 mg TD DAILY [facility] Last Admin: 10/30/17 09:25 Dose: 7 mg Pantoprazole Sodium (Protonix -) 40 mg PO DAILY [facility] Last Admin: 10/30/17 09:25 Dose: 40 mg Prednisone (Deltasone -) 40 mg PO DAILY [facility] Last Admin: 10/30/17 09:24 Dose: 40 mg A/P 62 y/o with interstitial lung disease, worsening resp. status, RLE DVT On heparin drip s/p thrombolysis suspect false + HIT. Awaiting KAY anemia of chronic disease +/- gi losses low iron sat/elevated ferritin --mixed picture of chronic disease and iron deficiency IV iron f/u protein studies, B12, folate, TSH
[2017-10-30] MEDS: HEPARIN NA (PORCINE) 5,000 UNITS/ML 1ML VIAL IVPUSH PRN (11:42)
[2017-10-30] MEDS ORDERED: NYSTATIN 500,000 UNITS/5 ML SUSPENSION PO ONE (11:43)
[2017-10-30] MEDS ORDERED: FUROSEMIDE 40 MG/4 ML INJECTABLE VIAL IVPUSH ONE (11:43)
[2017-10-30] MEDS ORDERED: MAGNESIUM OXIDE 400 MG TABLET (FP) PO ONE (11:43)
[2017-10-30] MEDS ORDERED: MAGNESIUM SULF 50% (8.12 MEQ/2 ML-1 GM VIAL) IVPB ONE (11:43)
[2017-10-30] MEDS: MAGNESIUM 1GM/D5W - 1 GM/100 ML IVPB IVPB SCH ×2 (12:15→13:15)
[2017-10-30] MEDS: NYSTATIN 500,000 UNITS/5 ML SUSPENSION PO SCH ×2 (12:34→17:11)
[2017-10-30] MEDS ORDERED: INSULIN (NOVOLOG) ASPART 100 UNITS/ML 10ML VIAL ONE (12:42)
--- NOTE | 2017-10-30 12:52 | PN ---
Teaching Attending Note Name of Resident: Evans Marie ATTENDING PHYSICIAN STATEMENT I saw and evaluated the patient. I reviewed the resident's note and discussed the case with the resident. I agree with the resident's findings and plan as documented. SUBJECTIVE: Pt seen and examined in the ICU. Remains on HFOT with 50L/min and 100% FiO2. Diuresed well with lasix yesterday. OBJECTIVE: Last Vital Signs Temp Pulse Resp BP Pulse Ox 98.6 F 82 17 106/52 95 10/30/17 12:00 10/30/17 12:00 10/30/17 12:00 10/30/17 12:00 10/30/17 12:38 Intake & Output 10/27/17 10/28/17 10/29/17 10/30/17 23:59 23:59 23:59 23:59 Intake Total 655 552 874 231 Output Total 2600 2800 3200 800 Balance -1945 -2248 -2326 -569 Weight 78.5 kg 78.245 kg 79.152 kg 76.9 kg Gen: mildly tachypneic at rest Heart: RRR Lung: bibasilar rales Abd: soft, nontender Ext: decreasing RLE edema CBC, BMP 10/30/17 05:20 10/30/17 05:20 Active Medications Acetaminophen (Tylenol -) 650 mg PO Q6H PRN PRN Reason: FEVER OR PAIN Last Admin: 10/30/17 07:20 Dose: 650 mg Chlorhexidine Gluconate (Hibiclens For Decolonization -) 1 applic TP HS SONAL Last Admin: 10/29/17 21:59 Dose: 1 applic Heparin Sodium (Porcine) (Heparin -) 1,000 unit IVPUSH PRN PRN PRN Reason: Heparin Last Admin: 10/26/17 12:54 Dose: 1,000 unit Heparin Sodium (Porcine) (Heparin -) 5,000 unit IVPUSH PRN PRN PRN Reason: Heparin Last Admin: 10/30/17 11:42 Dose: 5,000 unit HEPARIN SOD,PORK IN 0.45% NACL (Heparin-1/2ns 25,000 Units/500) 25,000 units in 500 mls @ 20 mls/hr IVPB TITR SONAL; 1,000 UNITS/HR PRN Reason: Protocol Last Titration: 10/30/17 11:41 Dose: 1,200 units/hr, 24 mls/hr Magnesium Sulfate/Dextrose (Magnesium 1gm/D5w -) 1 gm in 100 mls @ 100 mls/hr IVPB Q1H [facility] Stop: 10/30/17 14:14 Last Admin: 10/30/17 12:15 Dose: 100 mls/hr Insulin Aspart (Novolog Vial Sliding Scale -) 1 vial SQ ACHS SONAL PRN Reason: Protocol Last Admin: 10/30/17 12:00 Dose: 2 units Insulin Detemir (Levemir Vial) 10 units SQ DAILY [facility] Last Admin: 10/30/17 09:24 Dose: 10 units Morphine Sulfate (Morphine Injection -) 1 mg IVPUSH Q3H PRN PRN Reason: PAIN LEVEL 4 - 6 Nicotine (Nicoderm Patch -) 7 mg TD DAILY [facility] Last Admin: 10/30/17 09:25 Dose: 7 mg Nystatin (Nystatin Oral Suspension -) 500,000 units PO Q6HPO [facility] Stop: 11/09/17 11:59 Last Admin: 10/30/17 12:34 Dose: 500,000 units Pantoprazole Sodium (Protonix -) 40 mg PO DAILY [facility] Last Admin: 10/30/17 09:25 Dose: 40 mg Prednisone (Deltasone -) 40 mg PO DAILY [facility] Last Admin: 10/30/17 09:24 Dose: 40 mg ASSESSMENT AND PLAN: Acute Hypoxic Respiratory Failure Pneumonia Sepsis Interstitial Lung Disease Acute Diastolic Heart Failure improved Acute Kidney Injury improving Lactic Acidosis resolved DM RLE DVT - antibiotics completed - continue prednisone - titrate FiO2, flow rate to keep SpO2 >90% - give lasix 20mg IVP again today - monitor urine output, creatinine - monitor CXR - continue anticoagulation, can start PO if no further procedures planned - PO as tolerated - continue ICU monitoring for tenuous respiratory status - agree with LTAC placement, discussed with daughter at bedside critical care time spent in reviewing chart, evaluating patient and formulating plan 35 min Problem List - Problems (1) Acute respiratory failure with hypoxia Code(s): J96.01 - ACUTE RESPIRATORY FAILURE WITH HYPOXIA (2) Pneumonia Code(s): J18.9 - PNEUMONIA, UNSPECIFIED ORGANISM (3) Diabetes Code(s): E11.9 - TYPE 2 DIABETES MELLITUS WITHOUT COMPLICATIONS
--- NOTE | 2017-10-30 13:30 | PN ---
Physical Exam: SUBJECTIVE: Patient seen and examined Patient is a 62 year old male who was BIBEMS for hypoxic respiratory failure eating food, off of pressers, but with RLE DVT without PE s/p IVC filter, thrombectomy, catheter directed heparin infusion, requiring increasing HFNC settings. Patient diuriesed well yesterday. Patient continues to require HFNC. Patient had anxiety earlier this morning and was treated with .25 xanax with improvement in his symptoms. OBJECTIVE: Vital Signs Period Temp Pulse Resp BP Sys/Sutton Pulse Ox Last 24 Hr 97.8 F-98.9 F 63-86 17-28 87-144/42-62 95-100 GENERAL: The patient is awake, alert, and fully oriented, in no acute distress. HEAD: Normal with no signs of trauma. EYES:sclera anicteric, conjunctiva clear. No ptosis. ENT: Ears normal, nares patent, oropharynx clear without exudates, moist mucous membranes. NECK: Trachea midline, full range of motion, supple. LUNGS: Breath sounds equal, Bibasilar rales noted on exam. no wheezes, no accessory muscle use. HEART: Regular rate and rhythm, S1, S2 without murmur, rub or gallop. ABDOMEN: Soft, nontender, nondistended, normoactive bowel sounds, no guarding, no rebound, no hepatosplenomegaly, no masses. EXTREMITIES: 2+ pulses, warm, well-perfused, no edema. NEUROLOGICAL: Normal speech, gait not observed. PSYCH: Normal mood, normal affect. SKIN: Warm, dry, normal turgor, no rashes or lesions noted Laboratory Results - last 24 hr 10/27/17 10/27/17 10/28/17 17:54 21:38 05:46 WBC RBC Hgb Hct MCV MCH MCHC RDW Plt Count MPV Neutrophils % Neutrophils % (Manual) Band Neutrophils % Lymphocytes % Lymphocytes % (Manual) Monocytes % (Manual) Eosinophils % (Manual) Basophils % (Manual) Myelocytes % (Man) Metamyelocytes Platelet Estimate PTT (Actin FS) Sodium Potassium Chloride Carbon Dioxide Anion Gap BUN Creatinine Creat Clearance w eGFR POC Glucometer 180.23261 229.36768 [phone] Random Glucose Calcium Phosphorus Magnesium Total Bilirubin AST ALT Alkaline Phosphatase Total Protein Albumin 10/28/17 10/28/17 10/28/17 12:33 17:50 21:45 WBC RBC Hgb Hct MCV MCH MCHC RDW Plt Count MPV Neutrophils % Neutrophils % (Manual) Band Neutrophils % Lymphocytes % Lymphocytes % (Manual) Monocytes % (Manual) Eosinophils % (Manual) Basophils % (Manual) Myelocytes % (Man) Metamyelocytes Platelet Estimate PTT (Actin FS) Sodium Potassium Chloride Carbon Dioxide Anion Gap BUN Creatinine Creat Clearance w eGFR POC Glucometer 215.10333 252.91942 [phone] Random Glucose Calcium Phosphorus Magnesium Total Bilirubin AST ALT Alkaline Phosphatase Total Protein Albumin 10/29/17 10/29/17 10/29/17 06:18 13:13 16:54 WBC RBC Hgb Hct MCV MCH MCHC RDW Plt Count MPV Neutrophils % Neutrophils % (Manual) Band Neutrophils % Lymphocytes % Lymphocytes % (Manual) Monocytes % (Manual) Eosinophils % (Manual) Basophils % (Manual) Myelocytes % (Man) Metamyelocytes Platelet Estimate PTT (Actin FS) Sodium Potassium Chloride Carbon Dioxide Anion Gap BUN Creatinine Creat Clearance w eGFR POC Glucometer 133.41639 311.10651 [phone] Random Glucose Calcium Phosphorus Magnesium Total Bilirubin AST ALT Alkaline Phosphatase Total Protein Albumin 10/29/17 10/30/17 10/30/17 21:53 05:20 05:20 WBC 11.4 H RBC 2.49 L Hgb 8.1 L Hct 25.4 L MCV 101.9 H MCH 32.7 MCHC 32.1 RDW 16.4 H Plt Count 105 L MPV 9.4 Neutrophils % No Result Required. Neutrophils % (Manual) 86.0 H Band Neutrophils % 3.0 Lymphocytes % No Result Required. Lymphocytes % (Manual) 6.0 L Monocytes % (Manual) 2 L Eosinophils % (Manual) 1.0 Basophils % (Manual) 1.0 Myelocytes % (Man) 0 Metamyelocytes 1 Platelet Estimate Decreased PTT (Actin FS) Sodium 138 Potassium 3.8 Chloride 99 Carbon Dioxide 33 H Anion Gap 6 L BUN 15 Creatinine 0.6 L Creat Clearance w eGFR > 60 POC Glucometer [phone] Random Glucose 116 H Calcium 7.8 L Phosphorus 2.6 Magnesium 1.7 L Total Bilirubin 0.6 AST 18 ALT 15 Alkaline Phosphatase 77 Total Protein 6.3 L Albumin 2.4 L 10/30/17 10/30/17 10/30/17 06:21 10:40 12:07 WBC RBC Hgb Hct MCV MCH MCHC RDW Plt Count MPV Neutrophils % Neutrophils % (Manual) Band Neutrophils % Lymphocytes % Lymphocytes % (Manual) Monocytes % (Manual) Eosinophils % (Manual) Basophils % (Manual) Myelocytes % (Man) Metamyelocytes Platelet Estimate PTT (Actin FS) 38.9 H D Sodium Potassium Chloride Carbon Dioxide Anion Gap BUN Creatinine Creat Clearance w eGFR POC Glucometer [phone] Random Glucose Calcium Phosphorus Magnesium Total Bilirubin AST ALT Alkaline Phosphatase Total Protein Albumin Active Medications Generic Name Dose Route Start Last Admin Trade Name Freq PRN Reason Stop Dose Admin Acetaminophen 650 mg 10/19/17 22:58 10/30/17 07:20 Tylenol - PO 650 mg Q6H PRN Administration FEVER OR PAIN Chlorhexidine Gluconate 1 applic 10/17/17 22:00 10/29/17 21:59 Hibiclens For Decolonization - TP 1 applic HS SONAL Administration Heparin Sodium (Porcine) 1,000 unit 10/20/17 17:59 10/26/17 12:54 Heparin - IVPUSH 1,000 unit PRN PRN Administration Heparin Heparin Sodium (Porcine) 5,000 unit 10/20/17 17:59 10/30/17 11:42 Heparin - IVPUSH 5,000 unit PRN PRN Administration Heparin HEPARIN SOD,PORK IN 0.45% NACL 25,000 units in 500 mls @ 20 mls/hr 10/20/17 18 :04 10/30/17 11:41 Heparin-1/2ns 25,000 Units/500 IVPB 1,200 units/hr TITR SONAL 24 mls/hr Protocol Titration 1,000 UNITS/HR Magnesium Sulfate/Dextrose 1 gm in 100 mls @ 100 mls/hr 10/30/17 12:15 13:15 Magnesium 1gm/D5w - IVPB 10/30/17 14:14 100 mls/hr Q1H SONAL Administration Insulin Aspart 1 vial 10/17/17 16:30 10/30/17 12:00 Novolog Vial Sliding Scale - SQ 2 units ACHS SONAL Administration Protocol Insulin Detemir 10 units 10/22/17 10:00 10/30/17 09:24 Levemir Vial SQ 10 units DAILY SONAL Administration Morphine Sulfate 1 mg 10/29/17 08:42 Morphine Injection - IVPUSH Q3H PRN PAIN LEVEL 4 - 6 Nicotine 7 mg 10/19/17 12:45 01/15/18 09:25 Nicoderm Patch - TD 7 mg DAILY SONAL Administration Nystatin 500,000 units 10/30/17 12:00 10/30/17 12:34 Nystatin Oral Suspension - PO 11/09/17 11:59 500,000 units Q6HPO SONAL Administration Pantoprazole Sodium 40 mg 10/25/17 10:00 10/30/17 09:25 Protonix - PO 40 mg DAILY SONAL Administration Prednisone 40 mg 10/24/17 10:00 10/30/17 09:24 Deltasone - PO 40 mg DAILY SONAL Administration ASSESSMENT/PLAN: Patient is a 62 year old male who was BIBEMS for hypoxic respiratory failure eating food, off of pressers, but with RLE DVT without PE s/p IVC filter, thrombectomy, catheter directed heparin infusion, requiring increasing HFNC settings. Neuro: #Nicotine Dependence: - Nicotine patch 7 MG daily CV: #Septic Shock vs. iatrogenic hypovolemic shock vs. cardiogenic shock: original presentation - Tachycardia of 105, Respiratory rate 26, Fever of 101, WBC of 11.7, Hypotension with SBP <90 with no response to IV fluids, and Lactic Acidosis of 3.6. Source unclear but likely PNA. Off pressers - Resolved off Bipap #DVT: U/S positive for Right calf DVT, s/p thrombectomy - s/p IR direct infusion yesterday, doing well - Continue hep drip #Chest Pain: - EKG unchanged Pulm: #Acute Hypoxic Respiratory Failure: Legionalla and strep negative. Zosyn and Vancomycin given in ED. Patient denies any recent hospitalization or abx use. Original chest X-ray reveals bilateral multifocal inflammatory changes (ARDS) vs. congestive heart failure. given JVD and crackles it is likely the later. treated for CAP. ECHO showing mild mitral regurg, mild/mod tricuspid regurg, mild PHTN. CT demonstrating diffuse interstitial lung disease AND XRs evidencing occasional volume overload. - Lasix per below - Continue Prednisone 40 daily - continue HFNC and attempt to wean - all cultures negative ID: likely ILD with GGO vs. infectious pattern. HIV, influenza, strep, legionella neg. BCx NGTD, sputum Cx NGTD. Completed Azithromycin and Ceftriaxone for suspected CAP. All cultures neg and ID tests neg including cryptococcal - ID recs appreciated Renal: - Lasix 20 IV - CTM - Avoid nephrotoxic medications Heme: #Macrocytic Anemia: Hemoglobin 9.2 with MCV 101. Ferritin 882 (likely reactive) Hb stable Endo #NIDDM: -BGM -ISS : #BPH -Patient on Tamsulosin 0.4mg daily GI: #Peptic Ulcer Disease: History of mesh according to family and had Endoscopy two months. Was given medications according to patients daughter and completed course. - on PPI FEN -Electrolytes Repleted as needed. -Diabetic diet while on HFNC PPX: - Hep drip - Protonix Disposition: Continued ICU care. Agreed with probably LTAC placement as discussed with daughter at bedside. Visit type - Emergency Visit Emergency Visit: No - New Patient This patient is new to me today: Yes Date on this admission: 10/30/17 - Critical Care Critical Care patient: Yes Total Critical Care Time (in minutes): 35 Critical Care Statement: The care of this patient involved high complexity decision making to prevent further life threatening deterioration of the patient 's condition and/or to evaluate & treat vital organ system(s) failure or risk of failure.
[2017-10-30] MEDS: CHLORHEXIDINE GLUCONATE 4% CLEANSER FOR DECOLONIZATION TP SCH (22:13)
[2017-10-31] MEDS: ACETAMINOPHEN 325 MG TABLET (FP) PO PRN (00:15)
[2017-10-31] MEDS: NYSTATIN 500,000 UNITS/5 ML SUSPENSION PO SCH ×4 (06:04→17:00)
[2017-10-31] MEDS: INSULIN SLIDING SCALE (NOVOLOG) 1 VIAL SQ SCH ×4 (06:06→22:42)
[2017-10-31 06:27] LABS: BASO % 0.2 % (0-2.0); EOS % 1.2 % (0-4.5); HEMATOCRIT 26.5 % (35.4-49); HEMOGLOBIN 8.7 GM/dL (11.7-16.9); LYMPH % 9.2 % (8-40); MCH 33.4 pg (25.7-33.7); MCHC 32.9 g/dl (32.0-35.9); MEAN CELL VOLUME 101.8 fl (80-96); MEAN PLT VOLUME 9.9 fl (7.5-11.1); MONO % 6.5 % (3.8-10.2); NEUT % 82.9 % (42.8-82.8); PLATELET COUNT 124 K/MM3 (134-434); RDW 16.3 % (11.9-15.9); WHITE BLOOD COUNT 10.6 K/mm3 (4.0-10.0)
[2017-10-31 06:58] LABS: PHOSPHOROUS 2.5 mg/dL (2.5-4.9); SGOT/AST 17 U/L (15-37); SGPT/ALT 15 U/L (12-78)
[2017-10-31 07:00] LABS: ALBUMIN 2.4 g/dl (3.4-5.0); ANION GAP 6 (8-16); BLOOD UREA NITROGEN 12 mg/dL (7-18); CHLORIDE 97 mmol/L (98-107); CO2 36 mmol/L (21-32); GLUCOSE,RANDOM 87 mg/dL (74-106); MAGNESIUM 2.1 mg/dL (1.8-2.4); SODIUM 139 mmol/L (136-145)
[2017-10-31 07:09] LABS: ALK PHOS 75 U/L (45-117); BILIRUBIN,TOTAL 0.6 mg/dL (0.2-1.0); CREATININE 0.5 mg/dL (0.7-1.3); TOT PROT 6.7 g/dl (6.4-8.2)
--- NOTE | 2017-10-31 08:06 | MSN ---
Progress Note (short form) - Note Progress Note: Subjective: Patient was seen this morning and states that his breathing has not improved. Patient is still coughing a lot of white sputum and complains of RUQ pain. Patient denies chest pain, N/V/D. Objective: Last Vital Signs Temp Pulse Resp BP Pulse Ox 97.7 F 69 23 115/51 98 10/30/17 22:00 10/31/17 06:00 10/31/17 06:00 10/31/17 06:00 10/31/17 06:51 General: Patient is resting comfortably on his back HEENT: PERRLA, moist mucous membranes, trachea midline, JVD noted. Heart: RRR. no rubs, murmurs or gallops appreciated. Lungs: crackles appreciated on middle and base b/l. Abdomen: soft, tender to palpation on RUQ. normoactive bowel sounds x4. abd mesh more apparent. Extremities: trace edema of right calf. Much improved, soft, slightly tender to palpation on the right. No edema noted on left LE. Pulses 2+ B/L on UE and LE. CBC, BMP 10/31/17 05:00 10/31/17 05:00 Abnormal Lab Results 10/30/17 10/30/17 10/30/17 05:20 10:40 18:45 WBC RBC Hgb Hct MCV RDW Plt Count Neutrophils % Neutrophils % (Manual) 86.0 H Lymphocytes % (Manual) 6.0 L Monocytes % (Manual) 2 L PTT (Actin FS) 38.9 H D 79.8 H D Chloride Carbon Dioxide Anion Gap Creatinine Calcium Albumin 10/31/17 10/31/17 10/31/17 05:00 05:00 05:00 WBC 10.6 H RBC 2.60 L Hgb 8.7 L Hct 26.5 L MCV 101.8 H RDW 16.3 H Plt Count 124 L Neutrophils % 82.9 H Neutrophils % (Manual) Lymphocytes % (Manual) Monocytes % (Manual) PTT (Actin FS) 65.5 H Chloride 97 L Carbon Dioxide 36 H Anion Gap 6 L Creatinine 0.5 L Calcium 8.0 L Albumin 2.4 L Home Medications Medication Instructions Recorded Glipizide [Glucotrol Xl] 0 mg PO ASDIR 10/17/17 Metformin HCl 0 mg PO ASDIR 10/17/17 Tamsulosin HCl 0.4 mg PO DAILY 10/17/17 Imaging: - chest x-ray 10/31/17: Since 10/30/2017, the ARDS pattern has diminished minimally - chest x-ray 10/30/17: Since 10/29/2017, the diffuse airspace changes are again noted. This has the appearance of an ARDS pattern. Follow-up recommended. - chest x-ray 10/29/17: Since 10/28/2017, the diffuse airspace changes are again noted which could indicate ARDS. - chest x-ray 10/28/17: Imaging again reveals diffuse airspace changes bilaterally. This could represent infiltrates / congestion. An element of ARDS must also be considered. - chest x-ray 10/27/17: diffuse b/l airspace opacities. concerning for infx process - Chest x-ray 10/26/17: progressive airspace b/l compatible with pulmonary edema and diffuse infiltrates - Chest X-ray 10/25/17: Imaging reveals diffuse interstitial and alveolar changes which have increased somewhat since 2017. This has the appearance of chronic and acute changes. - Chest x-ray 10/24/17: Since the prior set 10/23/2017 at 0751 hours there are persistent congestive and infiltrative changes - Chest X-ray 10/23/17: worse. Since 10/20/2017, there are progressive congestive and infiltrative findings - Chest CT 10/20/17: No CT evidence of pulmonary embolism. Diffuse bilateral nonspecific groundglass interstitial thickening - ? acute pneumonitis versus chronic interstitial lung disease. Nonspecific mediastinal and bilateral hilar lymphadenopathy. - Leg US 10/20/17: DVT noted. There is occlusive thrombosis within the common, deep and superficial femoral veins, as well as the popliteal and posterior tibial veins. These veins are incompressible, an additional sign of DVT. The greater saphenous vein is patent, however, the lesser saphenous vein is also thrombosed. - Chest X-ray 10/20/17: Since the prior study of 10/19/2017 at 0726 hours, the diffuse airspace changes persist. The patient is in a more apical lordotic projection. Follow-up recommended. The findings could represent a RDS. - Chest x-ray 10/19/17: Since 10/18/2017, the diffuse airspace changes have diminished slightly. The findings are still suggestive of possible ARDS. - Abd US 10/18/17: Moderate to marked gallbladder contraction is noted which may be physiologic in nature versus secondary to chronic cholecystitis. If clinically indicated correlate with two-week follow-up sonography with optimal pre - exam fasting. Gallbladder contraction was also described on a previous ultrasound exam of 03/25/2013. No sonographic evidence of acute cholecystitis. There is no obvious evidence of cholelithiasis allowing for previously described gallbladder contraction. No definite biliary tract dilatation is seen. The partially visualized pancreas demonstrates no gross sonographic abnormality. However, on the 2012 ultrasound study dilatation of the main pancreatic duct was described with a 0.5 cm diameter. Given this apparent finding on the prior study additional evaluation utilizing MRI/MRCP is suggested when the patient's clinical condition permits (unless already performed at a different facility). - Chest x-ray 10/18/17: Since 10/17/2017, the congestive and infiltrative changes persist. Follow-up recommended. - Chest x-ray 10/17/17: Shallow inspiration. Congestive changes, clinically correlate for CHF. No pneumothorax, or large pleural effusion is seen. - Echo 10/17/17: normal left ventricle with mild reduced systolic function, EF 45. RV normal. mild to moderate mitral valve thickening. moderate mitral regurgitation. mild tricuspid regurgitation. mild pulmonary HTN. mild arotic steclerosis. no aortic regurgitation. no pericardial effusion. Assessment/ Plan: 62yo M smoker with PMH of NIDDM, PUD, BPH admitted with respiratory failure, severe sepsis, CHF who had extensive right LE DVT s/p IVC filter 10/20/17 and s/p thrombectomy 10/24/17. # Hypoxic respiratory failure possibly from interstitial lung dz with pneumonitis, or CHF. etiology unknown. - high flow nasal cannula. unable to titrate down due to frequent desaturations - Albuterol/Ipratropium (Duoneb -) 1 amp NEB Q6H PRN SOB - tapered down to Prednisone (Deltasone -) 40 mg PO DAILY SONAL - bibasilar crackles -lasix on hold for today - LTAC referral # RUQ abd pain likely secondary to coughing - U/S on 10/18 was negative - order abd CT # thrombocytopenia - possibly due to sepsis - HIT antibody sent and is unequivocal. Level 0.473 (N: <0.4) likely falsely elevated. KAY negative. - discuss with heme/ onc # RLE pain secondary to DVT s/p IV filter on 10/20/17 and thrombectomy on 10/24/17 - Acetaminophen (Tylenol -) 650 mg PO Q6H PRN fever/ pain - pain and swelling improved - continue heparin # severe sepsis likely secondary to CAP - bp stable. not on pressors. - Azithromycin and Ceftriaxone 7 days completed on 10/24/17 - blood cultures and sputum culture negative # RUQ abd pain possibly due to coughing. - pain resolved - US sound negative for concerns. # NIDDM. A1C 7.4 - diabetic diet - Insulin Aspart (Novolog Vial Sliding Scale -) 1 vial SQ ACHS SONAL - Blood sugars rise due to steroids. Give Insulin Detemir (Levemir Vial) 10 units SQ DAILY SONAL # macrocytic anemia - continue to monitor # BPH - continue home med of Tamsulosin 0.4mg PO daily # FEN - F: PO - E: continue to monitor - N: diabetic diet #DVT prophylaxis - heparin drip
--- NOTE | 2017-10-31 08:17 | PN ---
Physical Exam: SUBJECTIVE: Patient seen and examined by me this AM - Remains hypoxic at baseline overnight to mid 80s on HF NC; Otherwise no major overnight events; No fever/chills, COLLINS/dizziness, N/V, LE edema; Still with mild CP on deep inspiration, persistent productive cough; Intermittently dyspneic w/ labored breathing, however states it is improved today. OBJECTIVE: Vital Signs Period Temp Pulse Resp BP Sys/Sutton Pulse Ox Last 24 Hr 97.7 F-98.7 F 67-84 17-25 92-148/37-60 94-100 GENERAL: The patient is awake, alert, and fully oriented, mildly tachypneic HEAD: Normal with no signs of trauma. EYES: PERRL, extraocular movements intact, sclera anicteric, conjunctiva clear. No ptosis. ENT: Ears normal, nares patent, oropharynx clear without exudates, moist mucous membranes. NECK: Trachea midline, full range of motion, supple. LUNGS: Diffuse crackles BL, decreased breath sounds at bases. No wheezes, no accessory muscle use. HEART: 2/6 systolic murmur at LUSB. Regular rate and rhythm, S1, S2 without murmur, rub or gallop. ABDOMEN: Mild tenderness/discomfort to palpation in all 4 quadrants. Soft, nondistended, normoactive bowel sounds, no guarding, no rebound, no hepatosplenomegaly, no masses. EXTREMITIES: Mild tenderness in R calf w/ dorsiflexion. Trace edema to mid-calf on R side. 2+ pulses, warm, well-perfused, no edema. NEUROLOGICAL: Cranial nerves II through XII grossly intact. Normal speech, gait not observed. PSYCH: Normal mood, normal affect. SKIN: Warm, dry, normal turgor, no rashes or lesions noted Laboratory Results - last 24 hr CBC, BMP 10/31/17 05:00 10/31/17 05:00 10/27/17 10/27/17 10/28/17 17:54 21:38 05:46 WBC RBC Hgb Hct MCV MCH MCHC RDW Plt Count MPV Neutrophils % Neutrophils % (Manual) Band Neutrophils % Lymphocytes % Lymphocytes % (Manual) Monocytes % Monocytes % (Manual) Eosinophils % Eosinophils % (Manual) Basophils % Basophils % (Manual) Myelocytes % (Man) Metamyelocytes Platelet Estimate PTT (Actin FS) Sodium Potassium Chloride Carbon Dioxide Anion Gap BUN Creatinine Creat Clearance w eGFR POC Glucometer [phone] [phone] Random Glucose Calcium Phosphorus Magnesium Total Bilirubin AST ALT Alkaline Phosphatase Total Protein Albumin Vitamin B12 TSH 10/28/17 10/28/17 10/28/17 12:33 17:50 21:45 WBC RBC Hgb Hct MCV MCH MCHC RDW Plt Count MPV Neutrophils % Neutrophils % (Manual) Band Neutrophils % Lymphocytes % Lymphocytes % (Manual) Monocytes % Monocytes % (Manual) Eosinophils % Eosinophils % (Manual) Basophils % Basophils % (Manual) Myelocytes % (Man) Metamyelocytes Platelet Estimate PTT (Actin FS) Sodium Potassium Chloride Carbon Dioxide Anion Gap BUN Creatinine Creat Clearance w eGFR POC Glucometer [phone] [phone] Random Glucose Calcium Phosphorus Magnesium Total Bilirubin AST ALT Alkaline Phosphatase Total Protein Albumin Vitamin B12 [facility] 10/29/17 10/29/17 10/29/17 06:18 16:54 21:53 WBC RBC Hgb Hct MCV MCH MCHC RDW Plt Count MPV Neutrophils % Neutrophils % (Manual) Band Neutrophils % Lymphocytes % Lymphocytes % (Manual) Monocytes % Monocytes % (Manual) Eosinophils % Eosinophils % (Manual) Basophils % Basophils % (Manual) Myelocytes % (Man) Metamyelocytes Platelet Estimate PTT (Actin FS) Sodium Potassium Chloride Carbon Dioxide Anion Gap BUN Creatinine Creat Clearance w eGFR POC Glucometer [phone] [phone] Random Glucose Calcium Phosphorus Magnesium Total Bilirubin AST ALT Alkaline Phosphatase Total Protein Albumin Vitamin B12 [facility] 10/30/17 10/30/17 10/30/17 05:20 06:21 10:40 WBC RBC Hgb Hct MCV MCH MCHC RDW Plt Count MPV Neutrophils % Neutrophils % (Manual) 86.0 H Band Neutrophils % 3.0 Lymphocytes % Lymphocytes % (Manual) 6.0 L Monocytes % Monocytes % (Manual) 2 L Eosinophils % Eosinophils % (Manual) 1.0 Basophils % Basophils % (Manual) 1.0 Myelocytes % (Man) 0 Metamyelocytes 1 Platelet Estimate Decreased PTT (Actin FS) 38.9 H D Sodium Potassium Chloride Carbon Dioxide Anion Gap BUN Creatinine Creat Clearance w eGFR POC Glucometer [phone] Random Glucose Calcium Phosphorus Magnesium Total Bilirubin AST ALT Alkaline Phosphatase Total Protein Albumin Vitamin B12 [facility] 10/30/17 10/30/17 10/30/17 12:07 17:07 18:45 WBC RBC Hgb Hct MCV MCH MCHC RDW Plt Count MPV Neutrophils % Neutrophils % (Manual) Band Neutrophils % Lymphocytes % Lymphocytes % (Manual) Monocytes % Monocytes % (Manual) Eosinophils % Eosinophils % (Manual) Basophils % Basophils % (Manual) Myelocytes % (Man) Metamyelocytes Platelet Estimate PTT (Actin FS) 79.8 H D Sodium Potassium Chloride Carbon Dioxide Anion Gap BUN Creatinine Creat Clearance w eGFR POC Glucometer 206.46559 [phone] Random Glucose Calcium Phosphorus Magnesium Total Bilirubin AST ALT Alkaline Phosphatase Total Protein Albumin Vitamin B12 TSH 10/31/17 10/31/17 10/31/17 05:00 05:00 05:00 WBC 10.6 H RBC 2.60 L Hgb 8.7 L Hct 26.5 L MCV 101.8 H MCH 33.4 MCHC 32.9 RDW 16.3 H Plt Count 124 L MPV 9.9 Neutrophils % 82.9 H Neutrophils % (Manual) Band Neutrophils % Lymphocytes % 9.2 D Lymphocytes % (Manual) Monocytes % 6.5 Monocytes % (Manual) Eosinophils % 1.2 Eosinophils % (Manual) Basophils % 0.2 Basophils % (Manual) Myelocytes % (Man) Metamyelocytes Platelet Estimate PTT (Actin FS) 65.5 H Sodium 139 Potassium 4.0 Chloride 97 L Carbon Dioxide 36 H Anion Gap 6 L BUN 12 Creatinine 0.5 L Creat Clearance w eGFR > 60 POC Glucometer Random Glucose 87 D Calcium 8.0 L Phosphorus 2.5 Magnesium 2.1 D Total Bilirubin 0.6 AST 17 ALT 15 Alkaline Phosphatase 75 Total Protein 6.7 Albumin 2.4 L Vitamin B12 298 TSH 0.71 Active Medications Generic Name Dose Route Start Last Admin Trade Name Freq PRN Reason Stop Dose Admin Acetaminophen 650 mg 10/19/17 22:58 10/30/17 17:10 Tylenol - PO 650 mg Q6H PRN Administration FEVER OR PAIN Chlorhexidine Gluconate 1 applic 10/17/17 22:00 10/30/17 22:13 Hibiclens For Decolonization - TP 1 applic HS SONAL Administration Heparin Sodium (Porcine) 1,000 unit 10/20/17 17:59 10/26/17 12:54 Heparin - IVPUSH 1,000 unit PRN PRN Administration Heparin Heparin Sodium (Porcine) 5,000 unit 10/20/17 17:59 10/30/17 11:42 Heparin - IVPUSH 5,000 unit PRN PRN Administration Heparin HEPARIN SOD,PORK IN 0.45% NACL 25,000 units in 500 mls @ 20 mls/hr 10/20/17 18 :04 10/30/17 11:41 Heparin-1/2ns 25,000 Units/500 IVPB 1,200 units/hr TITR SONAL 24 mls/hr Protocol Titration 1,000 UNITS/HR Insulin Aspart 1 vial 10/17/17 16:30 10/31/17 06:06 Novolog Vial Sliding Scale - SQ Not Given ACHS [facility] Protocol Insulin Detemir 10 units 10/22/17 10:00 10/30/17 09:24 Levemir Vial SQ 10 units DAILY SONAL Administration Morphine Sulfate 1 mg 10/29/17 08:42 Morphine Injection - IVPUSH Q3H PRN PAIN LEVEL 4 - 6 Nicotine 7 mg 10/19/17 12:45 10/30/17 09:25 Nicoderm Patch - TD 7 mg DAILY SONAL Administration Nystatin 500,000 units 10/30/17 12:00 10/31/17 06:04 Nystatin Oral Suspension - PO 11/09/17 11:59 500,000 units Q6HPO SONAL Administration Pantoprazole Sodium 40 mg 10/25/17 10:00 10/30/17 09:25 Protonix - PO 40 mg DAILY SONAL Administration Prednisone 40 mg 10/24/17 10:00 10/30/17 09:24 Deltasone - PO 40 mg DAILY SONAL Administration Microbiology 10/21/17 06:00 Serum Cryptococcal Antigen - Final 10/19/17 19:30 Sputum - Expectorated Gram Stain - Final 10/19/17 19:30 Sputum - Expectorated Sputum Culture - Final NORMAL RESPIRATORY TOYIN 10/17/17 10:10 Blood - Peripheral Venous Blood Culture - Final NO GROWTH AFTER 5 DAYS INCUBATION 10/17/17 10:10 Blood - Peripheral Venous Blood Culture - Final NO GROWTH AFTER 5 DAYS INCUBATION 10/17/17 13:57 Urine - Urine Clean Catch Urine Culture - Final NO GROWTH OBTAINED 10/17/17 13:57 Urine For Antigen Detection Legionella Antigen - Final 10/17/17 13:57 Urine For Antigen Detection Streptococcus pneumoniae Antigen (M - Final 10/17/17 10:25 Nasopharyngeal Swab Influenza Types A,B Antigen ([facility]) - Final 10/17/17 10:25 Nasopharyngeal Swab - Final Recent imaging: CXR 10/21/17 - Since 10/30/2017, the ARDS pattern has diminished minimally. Follow- up recommended. ASSESSMENT/PLAN: 62 year old man w? PMH of NIDDM, nicotine dependence, BPH and PUD who was admitted for acute hypoxic respiratory failure likely secondary to severe sepsis from PNA, further complicated by acute diastolic heart failure, found to have extensive right LE DVT, now s/p IVC filter (10/20) and catheter-directed thrombectomy (10/24) #Acute hypoxic respiratory failure - likely secondary to ILD of unknown etiology. Pt w/ prior smoking hx, worked in factory. Pt consistently desatting to mid to high 80s on HFNC. Presumptive diagnosis ILD secondary to pneumonitis - HFNC - Duonebs QIDR PRN - Prednisone taper - Accepted for placement at LTAC, will discuss with ICU attending in AM - Morphine for pain control - Will require outpt lung bx -Xanax prn for anxiety = tylenol for pain/fever #Extensive RLE DVT- s/p IVC filter 10/20, thrombectomy 10/24; currently on heparin gtt; R LE improving - Transition to NOAC - Daily coags #Severe sepsis to PNA- currently afebrile, no WBC count, LA normal; BP stable off pressors. Finished course of Rocephin/azithromax on 10/24 - All cultures negative - monitor for signs of infection - Trend fever, WBC count #Thrombocytopenia- Likely consumptive coagulopathy/secondary to sepsis; HIT Ab equivocal; 104 -> 124 today - Daily CBC. Trend #Acute diastolic CHF failure - Still with BL congestion on CXR - Monitor fluid status - Lasix held today #IDDM- A1c 7.4 - Hold home oral hypoglycemics - ISS - BGM q4h #BPH c/w home flomax #nicotine dependence - nicotine patch - baby counselor about smoking cessation PPX Heparin gtt PPI FEN Encourage PO fluids Daily BMPs Diabetic diet Plan for presumptive placement in LTAC in AM Plan discussed with attending, Dr. James Reeves, PGY1 Visit type - Emergency Visit Emergency Visit: Yes ED Registration Date: 10/17/17 Care time: The patient presented to the Emergency Department on the above date and was hospitalized for further evaluation of their emergent condition. - New Patient This patient is new to me today: Yes Date on this admission: 11/01/17 - Critical Care Critical Care patient: No
[2017-10-31] MEDS: ALPRAZolam 0.25 MG TABLET PO PRN ×2 (08:52→20:14)
[2017-10-31] MEDS: PANTOPRAZOLE 40 MG TABLET (FP) PO SCH (09:03)
[2017-10-31] MEDS: INSULIN DETEMIR 100 UNITS/ML MDV SQ SCH (09:06)
[2017-10-31] MEDS: predniSONE 20 MG TABLET (UD) PO SCH (09:11)
--- NOTE | 2017-10-31 09:29 | PN ---
Physical Exam: SUBJECTIVE: Patient seen and examined Patient is a 62 year old male who was BIBEMS for hypoxic respiratory failure eating food, off of pressers, but with RLE DVT without PE s/p IVC filter, thrombectomy, catheter directed heparin infusion, requiring increasing HFNC settings. Patient appears anxious on exam and complaining of SOB. Per nursing , the patient improved significantly yesterday after receiving a one time does of xanax. Otherwise, no acute events overnight. OBJECTIVE: Vital Signs Period Temp Pulse Resp BP Sys/Sutton Pulse Ox Last 24 Hr 97.7 F-98.7 F 67-83 17-25 92-148/37-60 94-100 GENERAL: The patient is awake, alert, and fully oriented, in no acute distress. HEAD: Normal with no signs of trauma. EYES: sclera anicteric, conjunctiva clear. No ptosis. ENT: nares patent, oropharynx clear without exudates, moist mucous membranes. NECK: Trachea midline, full range of motion, supple. LUNGS: Breath sounds equal, Bilateral rales noted on exam, no wheezes, no accessory muscle use. HEART: Regular rate and rhythm, S1, S2 without murmur, rub or gallop. ABDOMEN: Soft, nontender, nondistended, normoactive bowel sounds, no guarding, no rebound, no hepatosplenomegaly, no masses. EXTREMITIES: 2+ pulses, warm, well-perfused, NEUROLOGICAL: Normal speech, gait not observed. PSYCH: Normal mood, normal affect. SKIN: Warm, dry, normal turgor, no rashes or lesions noted Laboratory Results - last 24 hr 10/27/17 10/27/17 10/28/17 17:54 21:38 05:46 WBC RBC Hgb Hct MCV MCH MCHC RDW Plt Count MPV Neutrophils % Neutrophils % (Manual) Band Neutrophils % Lymphocytes % Lymphocytes % (Manual) Monocytes % Monocytes % (Manual) Eosinophils % Eosinophils % (Manual) Basophils % Basophils % (Manual) Myelocytes % (Man) Metamyelocytes Platelet Estimate PTT (Actin FS) Sodium Potassium Chloride Carbon Dioxide Anion Gap BUN Creatinine Creat Clearance w eGFR POC Glucometer 180.57073 229.80572 [phone] Random Glucose Calcium Phosphorus Magnesium Total Bilirubin AST ALT Alkaline Phosphatase Total Protein Albumin Vitamin B12 TSH 10/28/17 10/28/17 10/28/17 12:33 17:50 21:45 WBC RBC Hgb Hct MCV MCH MCHC RDW Plt Count MPV Neutrophils % Neutrophils % (Manual) Band Neutrophils % Lymphocytes % Lymphocytes % (Manual) Monocytes % Monocytes % (Manual) Eosinophils % Eosinophils % (Manual) Basophils % Basophils % (Manual) Myelocytes % (Man) Metamyelocytes Platelet Estimate PTT (Actin FS) Sodium Potassium Chloride Carbon Dioxide Anion Gap BUN Creatinine Creat Clearance w eGFR POC Glucometer 215.78000 252.35782 [phone] Random Glucose Calcium Phosphorus Magnesium Total Bilirubin AST ALT Alkaline Phosphatase Total Protein Albumin Vitamin B12 TSH 10/29/17 10/29/17 10/29/17 06:18 16:54 21:53 WBC RBC Hgb Hct MCV MCH MCHC RDW Plt Count MPV Neutrophils % Neutrophils % (Manual) Band Neutrophils % Lymphocytes % Lymphocytes % (Manual) Monocytes % Monocytes % (Manual) Eosinophils % Eosinophils % (Manual) Basophils % Basophils % (Manual) Myelocytes % (Man) Metamyelocytes Platelet Estimate PTT (Actin FS) Sodium Potassium Chloride Carbon Dioxide Anion Gap BUN Creatinine Creat Clearance w eGFR POC Glucometer 133.89728 220.28431 [phone] Random Glucose Calcium Phosphorus Magnesium Total Bilirubin AST ALT Alkaline Phosphatase Total Protein Albumin Vitamin B12 TSH 10/30/17 10/30/17 10/30/17 05:20 06:21 10:40 WBC RBC Hgb Hct MCV MCH MCHC RDW Plt Count MPV Neutrophils % Neutrophils % (Manual) 86.0 H Band Neutrophils % 3.0 Lymphocytes % Lymphocytes % (Manual) 6.0 L Monocytes % Monocytes % (Manual) 2 L Eosinophils % Eosinophils % (Manual) 1.0 Basophils % Basophils % (Manual) 1.0 Myelocytes % (Man) 0 Metamyelocytes 1 Platelet Estimate Decreased PTT (Actin FS) 38.9 H D Sodium Potassium Chloride Carbon Dioxide Anion Gap BUN Creatinine Creat Clearance w eGFR POC Glucometer 143.90156 Random Glucose Calcium Phosphorus Magnesium Total Bilirubin AST ALT Alkaline Phosphatase Total Protein Albumin Vitamin B12 TSH 10/30/17 10/30/17 10/30/17 12:07 17:07 18:45 WBC RBC Hgb Hct MCV MCH MCHC RDW Plt Count MPV Neutrophils % Neutrophils % (Manual) Band Neutrophils % Lymphocytes % Lymphocytes % (Manual) Monocytes % Monocytes % (Manual) Eosinophils % Eosinophils % (Manual) Basophils % Basophils % (Manual) Myelocytes % (Man) Metamyelocytes Platelet Estimate PTT (Actin FS) 79.8 H D Sodium Potassium Chloride Carbon Dioxide Anion Gap BUN Creatinine Creat Clearance w eGFR POC Glucometer 206.30774 [phone] Random Glucose Calcium Phosphorus Magnesium Total Bilirubin AST ALT Alkaline Phosphatase Total Protein Albumin Vitamin B12 TSH 10/31/17 10/31/17 10/31/17 05:00 05:00 05:00 WBC 10.6 H RBC 2.60 L Hgb 8.7 L Hct 26.5 L MCV 101.8 H MCH 33.4 MCHC 32.9 RDW 16.3 H Plt Count 124 L MPV 9.9 Neutrophils % 82.9 H Neutrophils % (Manual) Band Neutrophils % Lymphocytes % 9.2 D Lymphocytes % (Manual) Monocytes % 6.5 Monocytes % (Manual) Eosinophils % 1.2 Eosinophils % (Manual) Basophils % 0.2 Basophils % (Manual) Myelocytes % (Man) Metamyelocytes Platelet Estimate PTT (Actin FS) 65.5 H Sodium 139 Potassium 4.0 Chloride 97 L Carbon Dioxide 36 H Anion Gap 6 L BUN 12 Creatinine 0.5 L Creat Clearance w eGFR > 60 POC Glucometer Random Glucose 87 D Calcium 8.0 L Phosphorus 2.5 Magnesium 2.1 D Total Bilirubin 0.6 AST 17 ALT 15 Alkaline Phosphatase 75 Total Protein 6.7 Albumin 2.4 L Vitamin B12 298 TSH 0.71 Active Medications Generic Name Dose Route Start Last Admin Trade Name Freq PRN Reason Stop Dose Admin Acetaminophen 650 mg 10/19/17 22:58 10/30/17 17:10 Tylenol - PO 650 mg Q6H PRN Administration FEVER OR PAIN Alprazolam 0.25 mg 10/31/17 08:38 10/31/17 08:52 Xanax - PO 0.25 mg Q8H PRN Administration ANXIETY Chlorhexidine Gluconate 1 applic 10/17/17 22:00 10/30/17 22:13 Hibiclens For Decolonization - TP 1 applic HS SONAL Administration Heparin Sodium (Porcine) 1,000 unit 10/20/17 17:59 10/26/17 12:54 Heparin - IVPUSH 1,000 unit PRN PRN Administration Heparin Heparin Sodium (Porcine) 5,000 unit 10/20/17 17:59 10/30/17 11:42 Heparin - IVPUSH 5,000 unit PRN PRN Administration Heparin HEPARIN SOD,PORK IN 0.45% NACL 25,000 units in 500 mls @ 20 mls/hr 10/20/17 18 :04 10/31/17 09:10 Heparin-1/2ns 25,000 Units/500 IVPB 1,200 units/hr TITR SONAL 24 mls/hr Protocol Titration 1,000 UNITS/HR Insulin Aspart 1 vial 10/17/17 16:30 10/31/17 06:06 Novolog Vial Sliding Scale - SQ Not Given ACHS [facility] Protocol Insulin Detemir 10 units 10/22/17 10:00 10/31/17 09:06 Levemir Vial SQ 10 units DAILY SONAL Administration Morphine Sulfate 1 mg 10/29/17 08:42 Morphine Injection - IVPUSH Q3H PRN PAIN LEVEL 4 - 6 Nicotine 7 mg 10/19/17 12:45 10/30/17 09:25 Nicoderm Patch - TD 7 mg DAILY SONAL Administration Nystatin 500,000 units 10/30/17 12:00 10/31/17 06:04 Nystatin Oral Suspension - PO 11/09/17 11:59 500,000 units Q6HPO SONAL Administration Pantoprazole Sodium 40 mg 10/25/17 10:00 10/31/17 09:03 Protonix - PO 40 mg DAILY SONAL Administration Prednisone 40 mg 10/24/17 10:00 10/31/17 09:11 Deltasone - PO 40 mg DAILY SONAL Administration ASSESSMENT/PLAN: Patient is a 62 year old male who was BIBEMS for hypoxic respiratory failure eating food, off of pressers, but with RLE DVT without PE s/p IVC filter, thrombectomy, catheter directed heparin infusion, requiring increasing HFNC settings. Neuro: #Nicotine Dependence: - Nicotine patch 7 MG daily #Anxiety -PRN order for xanax 0.25mg given patient's continued anxiety and subsequent desaturations due to anxiety. CV: #Septic Shock vs. iatrogenic hypovolemic shock vs. cardiogenic shock: original presentation - Tachycardia of 105, Respiratory rate 26, Fever of 101, WBC of 11.7, Hypotension with SBP <90 with no response to IV fluids, and Lactic Acidosis of 3.6. Source unclear but likely PNA. Off pressers - Resolved off Bipap #DVT: U/S positive for Right calf DVT, s/p thrombectomy - s/p IR direct infusion yesterday, doing well - Continue hep drip #Chest Pain: - EKG unchanged Pulm: #Acute Hypoxic Respiratory Failure: Legionalla and strep negative. Zosyn and Vancomycin given in ED. Patient denies any recent hospitalization or abx use. Original chest X-ray reveals bilateral multifocal inflammatory changes (ARDS) vs. congestive heart failure. given JVD and crackles it is likely the later. treated for CAP. ECHO showing mild mitral regurg, mild/mod tricuspid regurg, mild PHTN. CT demonstrating diffuse interstitial lung disease AND XRs evidencing occasional volume overload. -Will hold lasix today - Continue Prednisone 40 daily - continue HFNC and attempt to wean - all cultures negative ID: likely ILD with GGO vs. infectious pattern. HIV, influenza, strep, legionella neg. BCx NGTD, sputum Cx NGTD. Completed Azithromycin and Ceftriaxone for suspected CAP. All cultures neg and ID tests neg including cryptococcal - ID recs appreciated Renal: - CTM - Avoid nephrotoxic medications Heme: #Macrocytic Anemia: Hemoglobin 9.2 with MCV 101. Ferritin 882 (likely reactive) Hb stable Endo #NIDDM: -BGM -ISS : #BPH -Patient on Tamsulosin 0.4mg daily GI: #Peptic Ulcer Disease: History of mesh according to family and had Endoscopy two months. Was given medications according to patients daughter and completed course. - on PPI FEN -Electrolytes Repleted as needed. -Diabetic diet while on HFNC PPX: - Hep drip - Protonix Disposition: Continued ICU care. Agreed with probable LTAC placement. Visit type - Emergency Visit Emergency Visit: No - New Patient This patient is new to me today: No - Critical Care Critical Care patient: Yes Total Critical Care Time (in minutes): 35 Critical Care Statement: The care of this patient involved high complexity decision making to prevent further life threatening deterioration of the patient 's condition and/or to evaluate & treat vital organ system(s) failure or risk of failure.
[2017-10-31] MEDS ORDERED: PT OWN MED DRAWER 7, Y5N ONE (09:46)
[2017-10-31] MEDS: NICOTINE 7 MG/24 HOURS TOPICAL PATCH TD SCH (09:57)
--- NOTE | 2017-10-31 10:18 | PN ---
Progress Note (short form) - Note Progress Note: Pt seen and examined feels a little better but still with SOB. O/E General: Appears dyspneic Cardiovascular: Yes: Regular Rate and Rhythm Respiratory: Yes: Rales (scattered) Gastrointestinal: Yes: Normal Bowel Sounds, Soft. Neurological: Yes: Alert, Oriented LE:much improved swelling ( RLE) , soft+ Last Vital Signs Temp Pulse Resp BP Pulse Ox 98.6 F 69 24 126/57 93 L 10/31/17 10:00 10/31/17 10:00 10/31/17 10:00 10/31/17 10:00 10/31/17 09:26 CBC, BMP 10/31/17 05:00 10/31/17 05:00 Current Medications Generic Name Dose Route Start Last Admin Trade Name Freq PRN Reason Stop Dose Admin Acetaminophen 650 mg 10/19/17 22:58 10/30/17 17:10 Tylenol - PO 650 mg Q6H PRN Administration FEVER OR PAIN Alprazolam 0.25 mg 10/31/17 08:38 10/31/17 08:52 Xanax - PO 0.25 mg Q8H PRN Administration ANXIETY Chlorhexidine Gluconate 1 applic 10/17/17 22:00 10/30/17 22:13 Hibiclens For Decolonization - TP 1 applic HS SONAL Administration Heparin Sodium (Porcine) 1,000 unit 10/20/17 17:59 10/26/17 12:54 Heparin - IVPUSH 1,000 unit PRN PRN Administration Heparin Heparin Sodium (Porcine) 5,000 unit 10/20/17 17:59 10/30/17 11:42 Heparin - IVPUSH 5,000 unit PRN PRN Administration Heparin HEPARIN SOD,PORK IN 0.45% NACL 25,000 units in 500 mls @ 20 mls/hr 10/20/17 18 :04 10/31/17 09:10 Heparin-1/2ns 25,000 Units/500 IVPB 1,200 units/hr TITR SONAL 24 mls/hr Protocol Titration 1,000 UNITS/HR Insulin Aspart 1 vial 10/17/17 16:30 10/31/17 06:06 Novolog Vial Sliding Scale - SQ Not Given ACHS [facility] Protocol Insulin Detemir 10 units 10/22/17 10:00 10/31/17 09:06 Levemir Vial SQ 10 units DAILY SONAL Administration Morphine Sulfate 1 mg 10/29/17 08:42 Morphine Injection - IVPUSH Q3H PRN PAIN LEVEL 4 - 6 Nicotine 7 mg 10/19/17 12:45 10/31/17 09:57 Nicoderm Patch - TD 7 mg DAILY SONAL Administration Nystatin 500,000 units 10/30/17 12:00 10/31/17 06:04 Nystatin Oral Suspension - PO 11/09/17 11:59 500,000 units Q6HPO SONAL Administration Pantoprazole Sodium 40 mg 10/25/17 10:00 10/31/17 09:03 Protonix - PO 40 mg DAILY SONAL Administration Prednisone 40 mg 10/24/17 10:00 10/31/17 09:11 Deltasone - PO 40 mg DAILY SONAL Administration Assessment/Plan Extensive RLE DVT -HIT negative -on therapeutic Heparin -to consider NOACs once able to. Thrombocytopenia: -improving -likely consumptive -KAY NEGATIVE, VAISHALI ruled out. ( paper report in chart ), ICU team was made aware Anemia: -ACD with some component of Fedef. s/p IV Iron -will f/u on SPEP -at some point will need GI w/u if not done prior to the hospitalization. Acute hypoxic respiratory failure ?ILD: -continues to be on On HFO, O2 sat remains low -mgmt per ICU./Pulm Nonspecific mediastinal LAD: -OP w/u '
--- NOTE | 2017-10-31 11:54 | PN ---
Teaching Attending Note Name of Resident: Evans Marie ATTENDING PHYSICIAN STATEMENT I saw and evaluated the patient. I reviewed the resident's note and discussed the case with the resident. I agree with the resident's findings and plan as documented. SUBJECTIVE: Pt seen and examined in the ICU. Remains on HFOT with 60L/min and 95% FiO2. Feels about the same. Intermittent RUQ pain. OBJECTIVE: Last Vital Signs Temp Pulse Resp BP Pulse Ox 98.6 F 69 24 126/57 93 L 10/31/17 10:00 10/31/17 10:00 10/31/17 10:00 10/31/17 10:00 10/31/17 09:26 Intake & Output 10/28/17 10/29/17 10/30/17 10/31/17 23:59 23:59 23:59 23:59 Intake Total 572 237 2976 276 Output Total 2800 3200 1999 Balance -2248 -2326 -546 276 Weight 78.245 kg 79.152 kg 76.9 kg 74.106 kg Gen: mildly tachypneic at rest Heart: RRR Lung: bibasilar rales Abd: soft, nontender Ext: no edema CBC, BMP 10/31/17 05:00 10/31/17 05:00 Active Medications Acetaminophen (Tylenol -) 650 mg PO Q6H PRN PRN Reason: FEVER OR PAIN Last Admin: 10/30/17 17:10 Dose: 650 mg Alprazolam (Xanax -) 0.25 mg PO Q8H PRN PRN Reason: ANXIETY Last Admin: 10/31/17 08:52 Dose: 0.25 mg Chlorhexidine Gluconate (Hibiclens For Decolonization -) 1 applic TP HS SONAL Last Admin: 10/30/17 22:13 Dose: 1 applic Heparin Sodium (Porcine) (Heparin -) 1,000 unit IVPUSH PRN PRN PRN Reason: Heparin Last Admin: 10/26/17 12:54 Dose: 1,000 unit Heparin Sodium (Porcine) (Heparin -) 5,000 unit IVPUSH PRN PRN PRN Reason: Heparin Last Admin: 10/30/17 11:42 Dose: 5,000 unit HEPARIN SOD,PORK IN 0.45% NACL (Heparin-1/2ns 25,000 Units/500) 25,000 units in 500 mls @ 20 mls/hr IVPB TITR SONAL; 1,000 UNITS/HR PRN Reason: Protocol Last Titration: 10/31/17 09:10 Dose: 1,200 units/hr, 24 mls/hr Insulin Aspart (Novolog Vial Sliding Scale -) 1 vial SQ ACHS SONAL PRN Reason: Protocol Last Admin: 10/31/17 11:13 Dose: Not Given Insulin Detemir (Levemir Vial) 10 units SQ DAILY [facility] Last Admin: 10/31/17 09:06 Dose: 10 units Morphine Sulfate (Morphine Injection -) 1 mg IVPUSH Q3H PRN PRN Reason: PAIN LEVEL 4 - 6 Nicotine (Nicoderm Patch -) 7 mg TD DAILY [facility] Last Admin: 10/31/17 09:57 Dose: 7 mg Nystatin (Nystatin Oral Suspension -) 500,000 units PO Q6HPO [facility] Stop: 11/09/17 11:59 Last Admin: 10/31/17 11:17 Dose: 500,000 units Pantoprazole Sodium (Protonix -) 40 mg PO DAILY [facility] Last Admin: 10/31/17 09:03 Dose: 40 mg Prednisone (Deltasone -) 40 mg PO DAILY [facility] Last Admin: 10/31/17 09:11 Dose: 40 mg ASSESSMENT AND PLAN: Acute Hypoxic Respiratory Failure Pneumonia Sepsis Interstitial Lung Disease Acute Diastolic Heart Failure improved Acute Kidney Injury improving Lactic Acidosis resolved DM RLE DVT - antibiotics completed - continue prednisone - titrate FiO2, flow rate to keep SpO2 >90% - hold lasix today - monitor urine output, creatinine - monitor CXR - continue anticoagulation, can start PO if no further procedures planned - PO as tolerated - continue ICU monitoring for tenuous respiratory status - agree with LTAC placement critical care time spent in reviewing chart, evaluating patient and formulating plan 35 min Problem List - Problems (1) Acute respiratory failure with hypoxia Code(s): J96.01 - ACUTE RESPIRATORY FAILURE WITH HYPOXIA (2) Pneumonia Code(s): J18.9 - PNEUMONIA, UNSPECIFIED ORGANISM (3) Diabetes Code(s): E11.9 - TYPE 2 DIABETES MELLITUS WITHOUT COMPLICATIONS
[2017-10-31] MEDS: HEPARIN SOD,PORK IN 0.45% NACL 25,000 UNITS/500 ML INFUS.BAG IVPB SCH (16:00)
--- NOTE | 2017-10-31 17:43 | PN ---
Teaching Attending Note Name of Resident: Dylon Reeves ATTENDING PHYSICIAN STATEMENT Time of evaluation: 9;15 AM I saw and evaluated the patient. I reviewed the resident's note and discussed the case with the resident. I agree with the resident's findings and plan as documented. SUBJECTIVE: Patient seen and examined. intermittent episodes of anxiety, breathing overall unchanged currently. Right leg symptoms markedly improved. No new fevers/ chills. Right sided abdominal pain, intermittent. OBJECTIVE: Vital Signs Period Temp Pulse Resp BP Sys/Sutton Pulse Ox Last 24 Hr 97.7 F-98.6 F 67-83 22-25 92-148/44-60 92-100 Intake & Output 10/28/17 10/29/17 10/30/17 10/31/17 23:59 23:59 23:59 23:59 Intake Total 334 977 3200 276 Output Total 2800 3200 9413 900 Balance -2248 -2326 -546 -624 Weight 172 lb 8 oz 174 lb 8 oz 169 lb 8.568 oz 163 lb 6 oz general: sitting in bed on high flow oxygen in no acute distress CVS:S1s2 regular Chest; distant breath sounds, few basilar rales, no wheezing abdomen: soft, NT, positive bowel sounds extremities: markedly improved RLE edema from last week, pos DP pulses Home Medication List Medication Instructions Recorded Confirmed Type Glipizide [Glucotrol Xl] 0 mg PO ASDIR 10/17/17 10/17/17 History Metformin HCl 0 mg PO ASDIR 10/17/17 10/17/17 History Tamsulosin HCl 0.4 mg PO DAILY 10/17/17 10/17/17 History Active Medications Generic Name Dose Route Start Last Admin Trade Name Freq PRN Reason Stop Dose Admin Acetaminophen 650 mg 10/19/17 22:58 10/30/17 17:10 Tylenol - PO 650 mg Q6H PRN Administration FEVER OR PAIN Alprazolam 0.25 mg 10/31/17 08:38 10/31/17 08:52 Xanax - PO 0.25 mg Q8H PRN Administration ANXIETY Chlorhexidine Gluconate 1 applic 10/17/17 22:00 10/30/17 22:13 Hibiclens For Decolonization - TP 1 applic HS SONAL Administration Heparin Sodium (Porcine) 1,000 unit 10/20/17 17:59 10/26/17 12:54 Heparin - IVPUSH 1,000 unit PRN PRN Administration Heparin Heparin Sodium (Porcine) 5,000 unit 10/20/17 17:59 10/30/17 11:42 Heparin - IVPUSH 5,000 unit PRN PRN Administration Heparin HEPARIN SOD,PORK IN 0.45% NACL 25,000 units in 500 mls @ 20 mls/hr 10/20/17 18 :04 10/31/17 16:00 Heparin-1/2ns 25,000 Units/500 IVPB 1,200 units/hr TITR SONAL 24 mls/hr Protocol Administration 1,000 UNITS/HR Insulin Aspart 1 vial 10/17/17 16:30 10/31/17 16:52 Novolog Vial Sliding Scale - SQ Not Given ACHS [facility] Protocol Insulin Detemir 10 units 10/22/17 10:00 10/31/17 09:06 Levemir Vial SQ 10 units DAILY [facility]ON[facility] Administration Morphine Sulfate 1 mg 10/29/17 08:42 Morphine Injection - IVPUSH Q3H PRN PAIN LEVEL 4 - 6 Nicotine 7 mg 10/19/17 12:45 10/31/17 09:57 Nicoderm Patch - TD 7 mg DAILY [facility] Administration Nystatin 500,000 units 10/30/17 12:00 10/31/17 17:00 Nystatin Oral Suspension - PO 11/09/17 11:59 500,000 units Q6HPO SONAL Administration Pantoprazole Sodium 40 mg 10/25/17 10:00 10/31/17 09:03 Protonix - PO 40 mg DAILY [facility] Administration Prednisone 40 mg 10/24/17 10:00 10/31/17 09:11 Deltasone - PO 40 mg DAILY [facility]ON[facility] Administration Laboratory Results - last 24 hr 10/30/17 10/30/17 10/31/17 17:07 18:45 05:00 WBC RBC Hgb Hct MCV MCH MCHC RDW Plt Count MPV Neutrophils % Lymphocytes % Monocytes % Eosinophils % Basophils % PTT (Actin FS) 79.8 H D 65.5 H Sodium Potassium Chloride Carbon Dioxide Anion Gap BUN Creatinine Creat Clearance w eGFR POC Glucometer [phone] Random Glucose Calcium Phosphorus Magnesium Total Bilirubin AST ALT Alkaline Phosphatase Total Protein Albumin Vitamin B12 TSH 10/31/17 10/31/17 05:00 05:00 WBC 10.6 H RBC 2.60 L Hgb 8.7 L Hct 26.5 L MCV 101.8 H MCH 33.4 MCHC 32.9 RDW 16.3 H Plt Count 124 L MPV 9.9 Neutrophils % 82.9 H Lymphocytes % 9.2 D Monocytes % 6.5 Eosinophils % 1.2 Basophils % 0.2 PTT (Actin FS) Sodium 139 Potassium 4.0 Chloride 97 L Carbon Dioxide 36 H Anion Gap 6 L BUN 12 Creatinine 0.5 L Creat Clearance w eGFR > 60 POC Glucometer Random Glucose 87 D Calcium 8.0 L Phosphorus 2.5 Magnesium 2.1 D Total Bilirubin 0.6 AST 17 ALT 15 Alkaline Phosphatase 75 Total Protein 6.7 Albumin 2.4 L Vitamin B12 298 TSH 0.71 Microbiology 10/21/17 06:00 Serum Cryptococcal Antigen - Final 10/19/17 19:30 Sputum - Expectorated Gram Stain - Final 10/19/17 19:30 Sputum - Expectorated Sputum Culture - Final NORMAL RESPIRATORY TOYIN 10/17/17 10:10 Blood - Peripheral Venous Blood Culture - Final NO GROWTH AFTER 5 DAYS INCUBATION 10/17/17 10:10 Blood - Peripheral Venous Blood Culture - Final NO GROWTH AFTER 5 DAYS INCUBATION 10/17/17 13:57 Urine - Urine Clean Catch Urine Culture - Final NO GROWTH OBTAINED 10/17/17 13:57 Urine For Antigen Detection Legionella Antigen - Final 10/17/17 13:57 Urine For Antigen Detection Streptococcus pneumoniae Antigen (M - Final 10/17/17 10:25 Nasopharyngeal Swab Influenza Types A,B Antigen ([facility]) - Final 10/17/17 10:25 Nasopharyngeal Swab - Final ASSESSMENT AND PLAN: 62 yo M active smoker, pMHx of NIDDM, PUD, BPH admitted with acute hypoxic respiratory failure, and extensive RLE DVT -Acute hypoxic respiratory failure, suspect from ?ILD with pneumonitis -Extensive RLE Acute DVT, s/p IVC filter 10/20, thrombectmy 10/24 - Acute diastolic heart failure -Sepsis, likely from PNA -Lactic acidosis, from sepsis vs increased work of breathing, rsolved -?MIRLANDE from sepsis, resolved -Thrombocytopenia -Elevated INR -Chest wall and right sided abdominal pain -NIDDM -PUD -BPH Plan: continue high flow nasal oxygen. ?ILD with pneumonitis, unclear etiology, Continue prednisone. Lasix IV trial with good response. Hold additional lasix today. Heparin drip. Hematology input noted, SFA for HIT neg, discuss about starting NOAC. CT A/P to address abdominal pain. Platelets improved. replete lytes pnr. Ac 7.4, hold oral hypoglycemics. levemir, ISS, diabetic diet. Continue flomax. Nicotine patch MICU monitoring. DIscussed with social work, patient accepted to LTACH, discuss with ICU in AM. Plan discussed with patient and daughter at bedside in detail, all questions answered. Total critical care time spent 35 min.
[2017-10-31] MEDS: CHLORHEXIDINE GLUCONATE 4% CLEANSER FOR DECOLONIZATION TP SCH (22:42)
[2017-11-01] MEDS: NYSTATIN 500,000 UNITS/5 ML SUSPENSION PO SCH ×4 (05:27→17:09)
[2017-11-01 06:28] LABS: BASO % 0.6 % (0-2.0); EOS % 2.2 % (0-4.5); HEMOGLOBIN 8.5 GM/dL (11.7-16.9); LYMPH % 13.5 % (8-40); MCHC 32.5 g/dl (32.0-35.9); MEAN CELL VOLUME 101.7 fl (80-96); MEAN PLT VOLUME 10.2 fl (7.5-11.1); MONO % 7.3 % (3.8-10.2); NEUT % 76.4 % (42.8-82.8); PLATELET COUNT 144 K/MM3 (134-434); RBC 2.56 M/mm3 (4.00-5.60); RDW 16.7 % (11.9-15.9); WHITE BLOOD COUNT 9.8 K/mm3 (4.0-10.0)
[2017-11-01] MEDS: INSULIN SLIDING SCALE (NOVOLOG) 1 VIAL SQ SCH ×4 (06:29→21:46)
[2017-11-01 07:04] LABS: ALBUMIN 2.3 g/dl (3.4-5.0); ANION GAP 5 (8-16); BLOOD UREA NITROGEN 12 mg/dL (7-18); CALCIUM 8.3 mg/dL (8.5-10.1); CHLORIDE 99 mmol/L (98-107); CO2 35 mmol/L (21-32); CREATININE 0.5 mg/dL (0.7-1.3); GLUCOSE,RANDOM 128 mg/dL (74-106); MAGNESIUM 2.1 mg/dL (1.8-2.4); POTASSIUM 4.1 mmol/L (3.5-5.1); SGOT/AST 18 U/L (15-37); SGPT/ALT 15 U/L (12-78); SODIUM 139 mmol/L (136-145)
[2017-11-01 07:06] LABS: ALK PHOS 79 U/L (45-117); BILIRUBIN,TOTAL 0.4 mg/dL (0.2-1.0); TOT PROT 6.6 g/dl (6.4-8.2)
--- NOTE | 2017-11-01 08:47 | PN ---
Physical Exam: SUBJECTIVE: Patient seen and examined by me this AM - Still complaining of SOB, worse in PM yesterday. Still w/ chest pain and cough. No other complaints. On Bipap overnight. OBJECTIVE: Vital Signs Intake & Output 10/29/17 10/30/17 10/31/17 11/01/17 23:59 23:59 23:59 23:59 Intake Total 874 1454 1744 311 Output Total 3200 2000 1900 200 Balance -0486 -546 -156 111 Weight 79.152 kg 76.9 kg 74.106 kg 74.48 kg Period Temp Pulse Resp BP Sys/Sutton Pulse Ox Last 24 Hr 97.6 F-98.6 F 67-94 14-25 99-137/44-77 85-98 GENERAL: The patient is awake, alert, and fully oriented, mildly tachypneic HEAD: Normal with no signs of trauma. EYES: PERRL, extraocular movements intact, sclera anicteric, conjunctiva clear. No ptosis. ENT: Ears normal, nares patent, oropharynx clear without exudates, moist mucous membranes. NECK: Trachea midline, full range of motion, supple. LUNGS: Diffuse crackles BL, bibasilar rales. No wheezes, no accessory muscle use. HEART: 2/6 systolic murmur at LUSB. Regular rate and rhythm, S1, S2 without murmur, rub or gallop. ABDOMEN: Mild tenderness to deep palpation in RUQ. Soft, nondistended, normoactive bowel sounds, no guarding, no rebound, no hepatosplenomegaly, no masses. EXTREMITIES: Trace edema to mid-calf on R side. 2+ pulses, warm, well-perfused NEUROLOGICAL: Cranial nerves II through XII grossly intact. Normal speech, gait not observed. PSYCH: Normal mood, normal affect. SKIN: Warm, dry, normal turgor, no rashes or lesions noted Laboratory Results - last 24 hr CBC, BMP 11/01/17 05:10 11/01/17 05:10 11/01/17 11/01/17 11/01/17 05:10 05:10 05:10 WBC 9.8 RBC 2.56 L Hgb 8.5 L Hct 26.0 L MCV 101.7 H MCH 33.0 MCHC 32.5 RDW 16.7 H Plt Count 144 MPV 10.2 Neutrophils % 76.4 Lymphocytes % 13.5 D Monocytes % 7.3 Eosinophils % 2.2 D Basophils % 0.6 PTT (Actin FS) 61.1 H Sodium 139 Potassium 4.1 Chloride 99 Carbon Dioxide 35 H Anion Gap 5 L BUN 12 Creatinine 0.5 L Creat Clearance w eGFR > 60 Random Glucose 128 H D Calcium 8.3 L Phosphorus 3.0 Magnesium 2.1 Total Bilirubin 0.4 D AST 18 ALT 15 Alkaline Phosphatase 79 Total Protein 6.6 Albumin 2.3 L Active Medications Generic Name Dose Route Start Last Admin Trade Name Freq PRN Reason Stop Dose Admin Acetaminophen 650 mg 10/19/17 22:58 10/30/17 17:10 Tylenol - PO 650 mg Q6H PRN Administration FEVER OR PAIN Alprazolam 0.25 mg 10/31/17 08:38 10/31/17 20:14 Xanax - PO 0.25 mg Q8H PRN Administration ANXIETY Chlorhexidine Gluconate 1 applic 10/17/17 22:00 10/31/17 22:42 Hibiclens For Decolonization - TP 1 applic HS SNOAL Administration Heparin Sodium (Porcine) 1,000 unit 10/20/17 17:59 10/26/17 12:54 Heparin - IVPUSH 1,000 unit PRN PRN Administration Heparin Heparin Sodium (Porcine) 5,000 unit 10/20/17 17:59 10/30/17 11:42 Heparin - IVPUSH 5,000 unit PRN PRN Administration Heparin HEPARIN SOD,PORK IN 0.45% NACL 25,000 units in 500 mls @ 20 mls/hr 10/20/17 18 :04 10/31/17 16:00 Heparin-1/2ns 25,000 Units/500 IVPB 1,200 units/hr TITR SONAL 24 mls/hr Protocol Administration 1,000 UNITS/HR Insulin Aspart 1 vial 10/17/17 16:30 11/01/17 06:29 Novolog Vial Sliding Scale - SQ Not Given ACHS [facility] Protocol Insulin Detemir 10 units 10/22/17 10:00 10/31/17 09:06 Levemir Vial SQ 10 units DAILY [facility]ON[facility] Administration Nicotine 7 mg 10/19/17 12:45 10/31/17 09:57 Nicoderm Patch - TD 7 mg DAILY [facility]ON[facility] Administration Nystatin 500,000 units 10/30/17 12:00 11/01/17 05:27 Nystatin Oral Suspension - PO 11/09/17 11:59 500,000 units Q6HPO SONAL Administration Pantoprazole Sodium 40 mg 10/25/17 10:00 10/31/17 09:03 Protonix - PO 40 mg DAILY [facility]ON[facility] Administration Prednisone 40 mg 10/24/17 10:00 10/31/17 09:11 Deltasone - PO 40 mg DAILY [facility]ON[facility] Administration Microbiology 10/21/17 06:00 Serum Cryptococcal Antigen - Final 10/19/17 19:30 Sputum - Expectorated Gram Stain - Final 10/19/17 19:30 Sputum - Expectorated Sputum Culture - Final NORMAL RESPIRATORY TOYIN 10/17/17 10:10 Blood - Peripheral Venous Blood Culture - Final NO GROWTH AFTER 5 DAYS INCUBATION 10/17/17 10:10 Blood - Peripheral Venous Blood Culture - Final NO GROWTH AFTER 5 DAYS INCUBATION 10/17/17 13:57 Urine - Urine Clean Catch Urine Culture - Final NO GROWTH OBTAINED 10/17/17 13:57 Urine For Antigen Detection Legionella Antigen - Final 10/17/17 13:57 Urine For Antigen Detection Streptococcus pneumoniae Antigen (M - Final 10/17/17 10:25 Nasopharyngeal Swab Influenza Types A,B Antigen ([facility]) - Final 10/17/17 10:25 Nasopharyngeal Swab - Final Recent imaging: CXR 10/21/17 - Since 10/30/2017, the ARDS pattern has diminished minimally. Follow- up recommended. CT Abdomen 10/31 - The gallbladder demonstrates no definite CT pathology. There is nonspecific minimal to mild intrahepatic biliary tract dilatation. Clinical/ laboratory correlation is suggested as well as with follow-up CT. Dilatation of the main pancreatic duct as noted above. Pancreatic ductal dilatation was also noted on a 2013 ultrasound exam. Several small pancreatic head calcifications are seen suggestive of chronic calcific pancreatitis. No gross mass lesion is identified. Correlate with MRI/MRCP when the patient's clinical condition permits. No CT evidence of acute pancreatitis. Mild acute pancreatitis is frequently not demonstrable on CT or MRI. The partially imaged lower chest demonstrates prominent bilateral interstitial thickening with relative peripheral sparing - ? Noncardiogenic edema, infectious versus noninfectious pneumonitis, hemorrhage. Correlate clinically. This finding may be somewhat increased in comparison to a chest CT exam of 10/20/2017. No pleural effusion is seen. Bibasilar bronchiectasis. There is partial imaging of nonspecific mediastinal lymphadenopathy (as described on chest CT). Prominent atherosclerotic vascular calcifications. Mild to moderate L1 and mild L5 vertebral body compression fractures are noted which appear chronic. No bony retropulsion is seen. The visualized osseous structures appear to be diffusely demineralized. Clinical/laboratory correlation is suggested. Additional evaluation utilizing bone densitometry/DEXA scan may be considered. CXR 11/01 - Since a prior study of 10/31/2017, extensive opacification is identified throughout the lung james with little significant change. This is consistent with ARDS. No pleural effusions have developed. ASSESSMENT/PLAN: 62 year old man w/ PMH of NIDDM, nicotine dependence, BPH and PUD who was admitted for acute hypoxic respiratory failure likely secondary to severe sepsis from PNA, further complicated by acute diastolic heart failure, found to have extensive right LE DVT, now s/p IVC filter (10/20) and catheter-directed thrombectomy (10/24). Pt required Bipap overnight, presumably due to increased respiratory distress/hypoxia on HFNC; satting 100% on Bipap. Plan for placement at LTAC, overall prognosis poor. #Acute hypoxic respiratory failure - likely secondary to ILD of unknown etiology. Pt w/ prior smoking hx, worked in factory. Presumptive diagnosis ILD secondary to pneumonitis. Pt on Bipap overnight, satting 100%. - BiPap/HFNC for O2 support - Duonebs QIDR PRN - Continue prednisone - Accepted at LTAC. Family aware. - Morphine for pain control - Will require outpt lung bx - Xanax prn for anxiety - tylenol for pain/fever #Extensive RLE DVT- s/p IVC filter 10/20, thrombectomy 10/24; currently on heparin gtt; R LE improving - Can transition from heparin gtt to PO NOAC - Daily coags #Severe sepsis to PNA- Resolved. Finished course of Rocephin/azithromax on 10/24 - All cultures negative - monitor for signs of infection - Trend fever, WBC count - HIV, flu, strep/legionella neg #Thrombocytopenia- Likely consumptive coagulopathy/secondary to sepsis; HIT Ab equivocal; 124-> 144 today - Daily CBC. Trend. Improving #Acute diastolic CHF failure - No change on CXR - Monitor fluid status - Lasix 20mg BID today IV - Cardiac monitoring #Anemia - 8.5 today; MCV 102; Vit B12 normal - Trend H/H - F/u folate #IDDM- A1c 7.4 - Hold home oral hypoglycemics - ISS - BGM q4h #BPH -c/w home flomax #nicotine dependence - nicotine patch - intake counselor about smoking cessation PPX Heparin gtt PPI FEN Encourage PO fluids Daily BMPs Diabetic diet Accepted at LTAC. Will defer to ICU team on timeline for transfer. Plan discussed with attending, Dr. James Reeves, PGY1 Visit type - Emergency Visit Emergency Visit: Yes ED Registration Date: 10/17/17 Care time: The patient presented to the Emergency Department on the above date and was hospitalized for further evaluation of their emergent condition. - New Patient This patient is new to me today: Yes Date on this admission: 11/01/17 - Critical Care Critical Care patient: No
[2017-11-01] MEDS ORDERED: PT OWN MED DRAWER 7, Y5N ONE (09:18)
[2017-11-01] MEDS: predniSONE 20 MG TABLET (UD) PO SCH (09:33)
[2017-11-01] MEDS: NICOTINE 7 MG/24 HOURS TOPICAL PATCH TD SCH (09:34)
[2017-11-01] MEDS: PANTOPRAZOLE 40 MG TABLET (FP) PO SCH (09:34)
[2017-11-01] MEDS: ALPRAZolam 0.25 MG TABLET PO PRN ×3 (09:36→17:04)
[2017-11-01] MEDS: INSULIN DETEMIR 100 UNITS/ML MDV SQ SCH (10:06)
[2017-11-01] MEDS ORDERED: FUROSEMIDE 40 MG/4 ML INJECTABLE VIAL ONE (10:50)
[2017-11-01] MEDS ORDERED: FUROSEMIDE 40 MG/4 ML INJECTABLE VIAL IVPUSH ONE ×2 (10:50→18:00)
--- NOTE | 2017-11-01 11:40 | PN ---
Physical Exam: SUBJECTIVE: Patient seen and examined. He is lying in bed, on Bi-Pap machine. He is complaining of SOB. He denies cough, chest pain, palpitations, fever, chills. Overnight he had episodes of hypoxia that required starting him on Bi- Pap. OBJECTIVE: Vital Signs Period Temp Pulse Resp BP Sys/Sutton Pulse Ox Last 24 Hr 97.6 F-98.4 F 67-94 14-25 99-153/44-77 85-100 GENERAL: The patient is awake, alert, and fully oriented, in moderate distress. HEAD: Normal with no signs of trauma. EYES: extraocular movements intact, sclera anicteric, conjunctiva clear ENT:oropharynx clear without exudates, moist mucous membranes, on Bi-Pap. NECK: Trachea midline, full range of motion, supple LUNGS: clear to auscultation bilaterally, no wheezes, no crackles, accessory muscle use. HEART: Regular rate and rhythm, S1, S2 without murmur, rub or gallop. ABDOMEN: Soft, nontender, nondistended, normoactive bowel sounds, no guarding, no rebound, no hepatosplenomegaly EXTREMITIES: 2+ pulses, warm, well-perfused, no edema, right calf bigger circumf., unchanged from yesterday. NEUROLOGICAL: Normal speech, no facial asymmetry, gait not observed. PSYCH: anxious SKIN: Warm, dry, normal turgor, no rashes or lesions noted Laboratory Results - last 24 hr 10/30/17 10/31/17 10/31/17 22:04 05:56 11:09 WBC RBC Hgb Hct MCV MCH MCHC RDW Plt Count MPV Neutrophils % Lymphocytes % Monocytes % Eosinophils % Basophils % PTT (Actin FS) Sodium Potassium Chloride Carbon Dioxide Anion Gap BUN Creatinine Creat Clearance w eGFR POC Glucometer [phone] [phone] Random Glucose Calcium Phosphorus Magnesium Total Bilirubin AST ALT Alkaline Phosphatase Total Protein Albumin 10/31/17 10/31/17 11/01/17 16:25 22:41 05:10 WBC 9.8 RBC 2.56 L Hgb 8.5 L Hct 26.0 L MCV 101.7 H MCH 33.0 MCHC 32.5 RDW 16.7 H Plt Count 144 MPV 10.2 Neutrophils % 76.4 Lymphocytes % 13.5 D Monocytes % 7.3 Eosinophils % 2.2 D Basophils % 0.6 PTT (Actin FS) Sodium Potassium Chloride Carbon Dioxide Anion Gap BUN Creatinine Creat Clearance w eGFR POC Glucometer [phone] Random Glucose Calcium Phosphorus Magnesium Total Bilirubin AST ALT Alkaline Phosphatase Total Protein Albumin 11/01/17 11/01/17 11/01/17 05:10 05:10 05:33 WBC RBC Hgb Hct MCV MCH MCHC RDW Plt Count MPV Neutrophils % Lymphocytes % Monocytes % Eosinophils % Basophils % PTT (Actin FS) 61.1 H Sodium 139 Potassium 4.1 Chloride 99 Carbon Dioxide 35 H Anion Gap 5 L BUN 12 Creatinine 0.5 L Creat Clearance w eGFR > 60 POC Glucometer [phone] Random Glucose 128 H D Calcium 8.3 L Phosphorus 3.0 Magnesium 2.1 Total Bilirubin 0.4 D AST 18 ALT 15 Alkaline Phosphatase 79 Total Protein 6.6 Albumin 2.3 L Active Medications Generic Name Dose Route Start Last Admin Trade Name Freq PRN Reason Stop Dose Admin Acetaminophen 650 mg 10/19/17 22:58 10/30/17 17:10 Tylenol - PO 650 mg Q6H PRN Administration FEVER OR PAIN Alprazolam 0.25 mg 10/31/17 08:38 11/01/17 09:36 Xanax - PO 0.25 mg Q8H PRN Administration ANXIETY Chlorhexidine Gluconate 1 applic 10/17/17 22:00 10/31/17 22:42 Hibiclens For Decolonization - TP 1 applic HS [facility] Administration Furosemide 20 mg 11/01/17 18:00 Lasix Injection - IVPUSH 11/01/17 18:01 ONCE ONE Heparin Sodium (Porcine) 1,000 unit 10/20/17 17:59 10/26/17 12:54 Heparin - IVPUSH 1,000 unit PRN PRN Administration Heparin Heparin Sodium (Porcine) 5,000 unit 10/20/17 17:59 10/30/17 11:42 Heparin - IVPUSH 5,000 unit PRN PRN Administration Heparin HEPARIN SOD,PORK IN 0.45% NACL 25,000 units in 500 mls @ 20 mls/hr 10/20/17 18 :04 10/31/17 16:00 Heparin-1/2ns 25,000 Units/500 IVPB 1,200 units/hr TITR [facility] 24 mls/hr Protocol Administration 1,000 UNITS/HR Insulin Aspart 1 vial 01/02/18 16:30 11/01/17 10:59 Novolog Vial Sliding Scale - SQ Not Given ACHS [facility] Protocol Insulin Detemir 10 units 10/22/17 10:00 11/01/17 10:06 Levemir Vial SQ 10 units DAILY [facility] Administration Nicotine 7 mg 10/19/17 12:45 11/01/17 09:34 Nicoderm Patch - TD 7 mg DAILY [facility] Administration Nystatin 500,000 units 10/30/17 12:00 11/01/17 05:27 Nystatin Oral Suspension - PO 11/09/17 11:59 500,000 units Q6HPO [facility] Administration Pantoprazole Sodium 40 mg 10/25/17 10:00 11/01/17 09:34 Protonix - PO 40 mg DAILY [facility] Administration Prednisone 40 mg 10/24/17 10:00 11/01/17 09:33 Deltasone - PO 40 mg DAILY [facility] Administration ASSESSMENT/PLAN: Patient is a 62 year old male admitted for hypoxic respiratory failure and RLE DVT, s/p IVC filter, thrombectomy, catheter directed heparin infusion. Neuro: awake and oriented, started Xanax PRN Q8H for anxiety CV Septic Shock vs. iatrogenic hypovolemic shock vs. cardiogenic shock at original presentation resolved Off pressers cardiac monitoring BP stable DVTs/p thrombectomy, on Heparin drip ECHO showing mild mitral regurg, mild/mod tricuspid regurg, mild PHTN Pulm: Acute Hypoxic Respiratory Failure due to acute pneumonitis or interstitial lung disease, started on BI Pap last night due to hypoxia on Hi Flow lasix today 20 mg IV in AM and at 6 PM continue Prednisone 40 daily ID: HIV, influenza, strep, legionella neg. BCx neg, sputum Cx neg. Completed Azithromycin and Ceftriaxone for suspected CAP. no more fevers or elevated WBC Renal: kidney function normalized cont to monitor Endo NIDDM: BGM ISS ACHS : cont Tamsulosin 0.4mg daily GI: on PPI FEN no fluids/no changes/diabetic PPX: - Hep drip - Protonix Disposition: Continued ICU care, LTAC placement, palliative care counseled today. The family will discuss goals of care at the meeting in near future. Problem List - Problems (1) Acute respiratory failure with hypoxia Code(s): J96.01 - ACUTE RESPIRATORY FAILURE WITH HYPOXIA (2) Diabetes Code(s): E11.9 - TYPE 2 DIABETES MELLITUS WITHOUT COMPLICATIONS (3) Pneumonia Code(s): J18.9 - PNEUMONIA, UNSPECIFIED ORGANISM (4) Respiratory distress Code(s): R06.03 - ACUTE RESPIRATORY DISTRESS (5) Low back strain Code(s): S39.012A - STRAIN OF MUSCLE, FASCIA AND TENDON OF LOWER BACK, INIT Visit type - Emergency Visit Emergency Visit: Yes ED Registration Date: 10/17/17 Care time: The patient presented to the Emergency Department on the above date and was hospitalized for further evaluation of their emergent condition. - New Patient This patient is new to me today: No - Critical Care Critical Care patient: Yes Total Critical Care Time (in minutes): 40 Critical Care Statement: The care of this patient involved high complexity decision making to prevent further life threatening deterioration of the patient 's condition and/or to evaluate & treat vital organ system(s) failure or risk of failure.
[2017-11-01] MEDS: HEPARIN SOD,PORK IN 0.45% NACL 25,000 UNITS/500 ML INFUS.BAG IVPB SCH (11:47)
--- NOTE | 2017-11-01 13:00 | PN ---
Teaching Attending Note Name of Resident: Geni Martinez ATTENDING PHYSICIAN STATEMENT I saw and evaluated the patient. I reviewed the resident's note and discussed the case with the resident. I agree with the resident's findings and plan as documented. SUBJECTIVE: Pt seen and examined in the ICU. Now on BiPAP after desaturating on high flow O2. Family at bedside. OBJECTIVE: Last Vital Signs Temp Pulse Resp BP Pulse Ox 98.3 F 86 20 119/57 100 11/01/17 10:00 11/01/17 12:00 11/01/17 12:00 11/01/17 12:00 11/01/17 11:00 Intake & Output 10/29/17 10/30/17 10/31/17 11/01/17 23:59 23:59 23:59 23:59 Intake Total 874 1454 1744 311 Output Total 3200 2000 1900 200 Balance -2326 -546 -156 111 Weight 79.152 kg 76.9 kg 74.106 kg 74.48 kg Gen: mildly tachypneic at rest Heart: RRR Lung: bibasilar rales Abd: soft, nontender Ext: no edema CBC, BMP 11/01/17 05:10 11/01/17 05:10 Active Medications Acetaminophen (Tylenol -) 650 mg PO Q6H PRN PRN Reason: FEVER OR PAIN Last Admin: 10/30/17 17:10 Dose: 650 mg Alprazolam (Xanax -) 0.25 mg PO Q8H PRN PRN Reason: ANXIETY Last Admin: 11/01/17 09:36 Dose: 0.25 mg Chlorhexidine Gluconate (Hibiclens For Decolonization -) 1 applic TP HS [facility]ON[facility] Last Admin: 10/31/17 22:42 Dose: 1 applic Furosemide (Lasix Injection -) 20 mg IVPUSH ONCE ONE Stop: 11/01/17 18:01 Heparin Sodium (Porcine) (Heparin -) 1,000 unit IVPUSH PRN PRN PRN Reason: Heparin Last Admin: 10/26/17 12:54 Dose: 1,000 unit Heparin Sodium (Porcine) (Heparin -) 5,000 unit IVPUSH PRN PRN PRN Reason: Heparin Last Admin: 10/30/17 11:42 Dose: 5,000 unit HEPARIN SOD,PORK IN 0.45% NACL (Heparin-1/2ns 25,000 Units/500) 25,000 units in 500 mls @ 20 mls/hr IVPB TITR [facility]; 1,000 UNITS/HR PRN Reason: Protocol Last Admin: 11/01/17 11:47 Dose: 1,200 units/hr, 24 mls/hr Insulin Aspart (Novolog Vial Sliding Scale -) 1 vial SQ ACHS [facility] PRN Reason: Protocol Last Admin: 11/01/17 10:59 Dose: Not Given Insulin Detemir (Levemir Vial) 10 units SQ DAILY [facility] Last Admin: 11/01/17 10:06 Dose: 10 units Nicotine (Nicoderm Patch -) 7 mg TD DAILY [facility] Last Admin: 11/01/17 09:34 Dose: 7 mg Nystatin (Nystatin Oral Suspension -) 500,000 units PO Q6HPO [facility] Stop: 11/09/17 11:59 Last Admin: 11/01/17 11:51 Dose: Not Given Pantoprazole Sodium (Protonix -) 40 mg PO DAILY [facility] Last Admin: 11/01/17 09:34 Dose: 40 mg Prednisone (Deltasone -) 40 mg PO DAILY [facility] Last Admin: 11/01/17 09:33 Dose: 40 mg ASSESSMENT AND PLAN: Acute Hypoxic Respiratory Failure Pneumonia Sepsis Interstitial Lung Disease Acute Diastolic Heart Failure improved Acute Kidney Injury improving Lactic Acidosis resolved DM RLE DVT - antibiotics completed - continue prednisone - BiPAP - taper FiO2 to keep SpO2 >90% - lasix today - monitor urine output, creatinine - monitor CXR - continue anticoagulation, can start PO if no further procedures planned - PO as tolerated - continue ICU monitoring for tenuous respiratory status - agree with LTAC placement - poor overall prognosis critical care time spent in reviewing chart, evaluating patient and formulating plan 35 min Problem List - Problems (1) Acute respiratory failure with hypoxia Code(s): J96.01 - ACUTE RESPIRATORY FAILURE WITH HYPOXIA (2) Pneumonia Code(s): J18.9 - PNEUMONIA, UNSPECIFIED ORGANISM (3) Diabetes Code(s): E11.9 - TYPE 2 DIABETES MELLITUS WITHOUT COMPLICATIONS
--- NOTE | 2017-11-01 14:47 | MSN ---
Progress Note (short form) - Note Progress Note: Subjective: Patient was seen this morning. States he had difficulty breathing and the bipap has been helping. Patient states RUQ pain has improved. Denies fever/ chills, N/V/D, chest pain. Objective: Vital Signs Temp 98.6 F 11/01/17 14:00 Pulse 80 11/01/17 14:00 Resp 22 11/01/17 14:00 BP 133/58 11/01/17 14:00 Pulse Ox 100 11/01/17 11:00 Intake & Output 10/31/17 11/01/17 11/01/17 23:59 11:59 23:59 Intake Total 1468 311 Output Total 1900 200 Balance -432 111 Weight 164 lb 3.2 oz Intake: IV 368 161 HEPARIN-1/2NS 25,000 368 161 UNITS/500 25,000 units In 500 ml @ 1,000 UNITS/HR 20 mls/hr IVPB TITR [facility] Rx#:[id number] Oral 1100 150 Output: Urine 1900 200 Void 1900 200 Other: Voiding Method Urinal Urinal Bowel Movement No No Weight Measurement Method [facility] General: Patient is resting comfortably, breathing on bipap HEENT: PERRLA, moist mucous membranes, trachea midline, JVD noted. Heart: RRR. no rubs, murmurs or gallops appreciated. Lungs: bibasilar crackles appreciated with decreased breath sounds. patient on bipap. Abdomen: soft, tender to deep palpation on RUQ. normoactive bowel sounds x4. abd mesh more apparent. Extremities: trace edema of right calf. Much improved, soft, non-tender to palpation on the right. No edema noted on left LE. Pulses 2+ B/L on UE and LE. Imaging: - chest x-ray 11/01/17: extensive opacification throughout with little significant changes. consistent with ARDS. - abdominal CT 10/31/17: Several small pancreatic head calcification suggestive of chronic calcific pancreatitis. no acute pancreatitis. Lungs b/l internstitial thickening with relative peripheral sparing. Noncardiogenic edema infx vs noninfectious pneumonitis, hemorrhage. Bibasilae bronchiectasis. Nonspecific mediastinal lymphadenopathy. Prominent atherosclerotic vascular calcifications. Mild chronic L1-L5 body compression fractures. osseous structures diffusely de-mineralized. - chest x-ray 10/31/17: Since 10/30/2017, the ARDS pattern has diminished minimally - chest x-ray 10/30/17: Since 10/29/2017, the diffuse airspace changes are again noted. This has the appearance of an ARDS pattern. Follow-up recommended. - chest x-ray 10/29/17: Since 10/28/2017, the diffuse airspace changes are again noted which could indicate ARDS. - Leg US 10/20/17: DVT noted. There is occlusive thrombosis within the common, deep and superficial femoral veins, as well as the popliteal and posterior tibial veins. These veins are incompressible, an additional sign of DVT. The greater saphenous vein is patent, however, the lesser saphenous vein is also thrombosed. - Abd US 10/18/17: Moderate to marked gallbladder contraction is noted which may be physiologic in nature versus secondary to chronic cholecystitis. If clinically indicated correlate with two-week follow-up sonography with optimal pre - exam fasting. Gallbladder contraction was also described on a previous ultrasound exam of 03/25/2013. No sonographic evidence of acute cholecystitis. There is no obvious evidence of cholelithiasis allowing for previously described gallbladder contraction. No definite biliary tract dilatation is seen. The partially visualized pancreas demonstrates no gross sonographic abnormality. However, on the 2012 ultrasound study dilatation of the main pancreatic duct was described with a 0.5 cm diameter. Given this apparent finding on the prior study additional evaluation utilizing MRI/MRCP is suggested when the patient's clinical condition permits (unless already performed at a different facility). - Echo 10/17/17: normal left ventricle with mild reduced systolic function, EF 45. RV normal. mild to moderate mitral valve thickening. moderate mitral regurgitation. mild tricuspid regurgitation. mild pulmonary HTN. mild arotic steclerosis. no aortic regurgitation. no pericardial effusion. Assessment/ Plan: 62yo M smoker with PMH of NIDDM, PUD, BPH admitted with respiratory failure, severe sepsis, CHF who had extensive right LE DVT s/p IVC filter 10/20/17 and s/p thrombectomy 10/24/17. Patient had increased respiratory distress and was placed on BIPAP, pulse ox 100% on bipap. # Hypoxic respiratory failure possibly from interstitial lung dz with pneumonitis, or CHF. etiology unknown. - on bipap. switch back to high flow nasal cannula if tolerated. - Albuterol/Ipratropium (Duoneb -) 1 amp NEB Q6H PRN SOB - tapered down to Prednisone (Deltasone -) 40 mg PO DAILY [facility] - bibasilar crackles - diurese today - LTAC referral approved. Dr. Lara spoke to patient and family. - xanax prn for anxiety # RUQ abd pain likely secondary to coughing - U/S on 10/18 was negative - abd CT negative for acute pathology # thrombocytopenia - possibly due to sepsis - HIT antibody sent and is unequivocal. Level 0.473 (N: <0.4) likely falsely elevated. KAY negative. - discuss with heme/ onc # RLE pain secondary to DVT s/p IV filter on 10/20/17 and thrombectomy on 10/24/17 - Acetaminophen (Tylenol -) 650 mg PO Q6H PRN fever/ pain - continue heparin # severe sepsis likely secondary to CAP - bp stable. not on pressors. - Azithromycin and Ceftriaxone 7 days completed on 10/24/17 - blood cultures and sputum culture negative # RUQ abd pain possibly due to coughing. - pain resolved - US sound negative for concerns. # NIDDM. A1C 7.4 - diabetic diet - Insulin Aspart (Novolog Vial Sliding Scale -) 1 vial SQ ACHS [facility] - Blood sugars rise due to steroids. Give Insulin Detemir (Levemir Vial) 10 units SQ DAILY [facility] # macrocytic anemia - continue to monitor # BPH - continue home med of Tamsulosin 0.4mg PO daily # FEN - F: PO - E: continue to monitor - N: diabetic diet #DVT prophylaxis - heparin drip
--- NOTE | 2017-11-01 15:10 | PN ---
Teaching Attending Note Name of Resident: Dylon Reeves ATTENDING PHYSICIAN STATEMENT Time of evaluation: 10;15 Am I saw and evaluated the patient. I reviewed the resident's note and discussed the case with the resident. I agree with the resident's findings and plan as documented. SUBJECTIVE: Patient seen and examined. anxious, on bipap currently, family at bedside, intermittent right sided abdominal pain, no complaints. OBJECTIVE: Vital Signs Period Temp Pulse Resp BP Sys/Sutton Pulse Ox Last 24 Hr 97.6 F-98.6 F 67-94 14-22 99-153/54-77 85-100 Intake & Output 10/29/17 10/30/17 10/31/17 11/01/17 23:59 23:59 23:59 23:59 Intake Total 874 1454 1744 311 Output Total 3200 2000 1900 200 Balance -2326 -546 -156 111 Weight 174 lb 8 oz 169 lb 8.568 oz 163 lb 6 oz 164 lb 3.2 oz General: sitting in bed, anxious, on bipap CVS:S1S2 regular Chest: decreased air entry all over, few basilar rales extremities; RLE edema/redness markedly improved, no calf tenderness Home Medication List Medication Instructions Recorded Confirmed Type Glipizide [Glucotrol Xl] 0 mg PO ASDIR 10/17/17 10/17/17 History Metformin HCl 0 mg PO ASDIR 10/17/17 10/17/17 History Tamsulosin HCl 0.4 mg PO DAILY 10/17/17 10/17/17 History Active Medications Generic Name Dose Route Start Last Admin Trade Name Freq PRN Reason Stop Dose Admin Acetaminophen 650 mg 10/19/17 22:58 10/30/17 17:10 Tylenol - PO 650 mg Q6H PRN Administration FEVER OR PAIN Alprazolam 0.25 mg 10/31/17 08:38 11/01/17 09:36 Xanax - PO 0.25 mg Q8H PRN Administration ANXIETY Chlorhexidine Gluconate 1 applic 10/17/17 22:00 10/31/17 22:42 Hibiclens For Decolonization - TP 1 applic HS [facility] Administration Furosemide 20 mg 11/01/17 18:00 Lasix Injection - IVPUSH 11/01/17 18:01 ONCE ONE Heparin Sodium (Porcine) 1,000 unit 10/20/17 17:59 10/26/17 12:54 Heparin - IVPUSH 1,000 unit PRN PRN Administration Heparin Heparin Sodium (Porcine) 5,000 unit 10/20/17 17:59 10/30/17 11:42 Heparin - IVPUSH 5,000 unit PRN PRN Administration Heparin HEPARIN SOD,PORK IN 0.45% NACL 25,000 units in 500 mls @ 20 mls/hr 10/20/17 18 :04 11/01/17 11:47 Heparin-1/2ns 25,000 Units/500 IVPB 1,200 units/hr TITR [facility] 24 mls/hr Protocol Administration 1,000 UNITS/HR Insulin Aspart 1 vial 10/17/17 16:30 11/01/17 10:59 Novolog Vial Sliding Scale - SQ Not Given ACHS [facility] Protocol Insulin Detemir 10 units 10/22/17 10:00 11/01/17 10:06 Levemir Vial SQ 10 units DAILY [facility] Administration Nicotine 7 mg 10/19/17 12:45 11/01/17 09:34 Nicoderm Patch - TD 7 mg DAILY [facility] Administration Nystatin 500,000 units 10/30/17 12:00 11/01/17 11:51 Nystatin Oral Suspension - PO 11/09/17 11:59 Not Given Q6HPO [facility] Pantoprazole Sodium 40 mg 10/25/17 10:00 11/01/17 09:34 Protonix - PO 40 mg DAILY [facility] Administration Prednisone 40 mg 10/24/17 10:00 11/01/17 09:33 Deltasone - PO 40 mg DAILY [facility] Administration Laboratory Results - last 24 hr 10/30/17 10/31/17 10/31/17 22:04 05:56 11:09 WBC RBC Hgb Hct MCV MCH MCHC RDW Plt Count MPV Neutrophils % Lymphocytes % Monocytes % Eosinophils % Basophils % PTT (Actin FS) Sodium Potassium Chloride Carbon Dioxide Anion Gap BUN Creatinine Creat Clearance w eGFR POC Glucometer 223.42703 108.31739 139.41805 Random Glucose Calcium Phosphorus Magnesium Total Bilirubin AST ALT Alkaline Phosphatase Total Protein Albumin 10/31/17 10/31/17 11/01/17 16:25 22:41 05:10 WBC 9.8 RBC 2.56 L Hgb 8.5 L Hct 26.0 L MCV 101.7 H MCH 33.0 MCHC 32.5 RDW 16.7 H Plt Count 144 MPV 10.2 Neutrophils % 76.4 Lymphocytes % 13.5 D Monocytes % 7.3 Eosinophils % 2.2 D Basophils % 0.6 PTT (Actin FS) Sodium Potassium Chloride Carbon Dioxide Anion Gap BUN Creatinine Creat Clearance w eGFR POC Glucometer 172.78448 212.10512 Random Glucose Calcium Phosphorus Magnesium Total Bilirubin AST ALT Alkaline Phosphatase Total Protein Albumin 11/01/17 11/01/17 11/01/17 05:10 05:10 05:33 WBC RBC Hgb Hct MCV MCH MCHC RDW Plt Count MPV Neutrophils % Lymphocytes % Monocytes % Eosinophils % Basophils % PTT (Actin FS) 61.1 H Sodium 139 Potassium 4.1 Chloride 99 Carbon Dioxide 35 H Anion Gap 5 L BUN 12 Creatinine 0.5 L Creat Clearance w eGFR > 60 POC Glucometer 155.02884 Random Glucose 128 H D Calcium 8.3 L Phosphorus 3.0 Magnesium 2.1 Total Bilirubin 0.4 D AST 18 ALT 15 Alkaline Phosphatase 79 Total Protein 6.6 Albumin 2.3 L Microbiology 10/21/17 06:00 Serum Cryptococcal Antigen - Final 10/19/17 19:30 Sputum - Expectorated Gram Stain - Final 10/19/17 19:30 Sputum - Expectorated Sputum Culture - Final NORMAL RESPIRATORY TOYIN 10/17/17 10:10 Blood - Peripheral Venous Blood Culture - Final NO GROWTH AFTER 5 DAYS INCUBATION 10/17/17 10:10 Blood - Peripheral Venous Blood Culture - Final NO GROWTH AFTER 5 DAYS INCUBATION 10/17/17 13:57 Urine - Urine Clean Catch Urine Culture - Final NO GROWTH OBTAINED 10/17/17 13:57 Urine For Antigen Detection Legionella Antigen - Final 10/17/17 13:57 Urine For Antigen Detection Streptococcus pneumoniae Antigen (M - Final 10/17/17 10:25 Nasopharyngeal Swab Influenza Types A,B Antigen ([facility]) - Final 10/17/17 10:25 Nasopharyngeal Swab - Final ASSESSMENT AND PLAN: 62 yo M active smoker, pMHx of NIDDM, PUD, BPH admitted with acute hypoxic respiratory failure, and extensive RLE DVT -Acute hypoxic respiratory failure, suspect from ?ILD with pneumonitis -Extensive RLE Acute DVT, s/p IVC filter 10/20, thrombectmy 10/24 - Acute diastolic heart failure -Sepsis, likely from PNA -Lactic acidosis, from sepsis vs increased work of breathing, rsolved -?MIRLANDE from sepsis, resolved -Thrombocytopenia -Elevated INR -Chest wall and right sided abdominal pain -NIDDM -PUD -BPH Plan: hypoxic and tachypneic overnight, placed on bipap. Discussed with Dr. Lara, continue prednsione, additional lasix today. ?ILD with pneumonitis, unclear etiology, Heparin drip. Hematology input noted, SFA for HIT neg, discuss about starting NOAC now. CT A/P noted, no acute concerns. Platelets improved. replete lytes prn. Ac 7.4, hold oral hypoglycemics. levemir, ISS, diabetic diet. Continue flomax. Nicotine patch MICU monitoring. DIscussed with social work, patient accepted to LTACH, discussed with ICU. ?tracheostomy, will follow up. . Plan discussed with patient and daughter at bedside in detail, all questions answered. Total critical care time spent 35 min.
--- NOTE | 2017-11-01 18:40 | PN ---
Progress Note (short form) - Note Progress Note: NOACs choice if no procedures planned/tolerating PO : Xarelto 15mg bid for 21days and 20mg daily OR Eliquis 10 mg twice daily for 7 days followed by 5 mg twice daily no bridging needed duration to be determined. confirm from insurance if could be covered
[2017-11-01] MEDS: ACETAMINOPHEN 325 MG TABLET (FP) PO PRN (19:44)
[2017-11-01] MEDS ORDERED: DEXTROSE 5%-WATER - 250 ML IV ONE (21:45)
[2017-11-01] MEDS: CHLORHEXIDINE GLUCONATE 4% CLEANSER FOR DECOLONIZATION TP SCH (21:47)
[2017-11-01] MEDS ORDERED: DEXTROSE 50%-WATER - 25 GM/50 ML VIAL IVPUSH PRN (21:49)
[2017-11-02] MEDS: NYSTATIN 500,000 UNITS/5 ML SUSPENSION PO SCH ×4 (05:47→23:46)
[2017-11-02] MEDS: ACETAMINOPHEN 325 MG TABLET (FP) PO PRN ×2 (06:24→22:14)
[2017-11-02] MEDS: ALPRAZolam 0.25 MG TABLET PO PRN ×2 (06:25→16:41)
--- NOTE | 2017-11-02 06:29 | PN ---
Physical Exam: SUBJECTIVE: Patient seen and examined by me this AM - Pt endorses worsening dyspnea, increased WOB. Still endorsing CP and RUQ pain worsened by inspiration. Still with nonproductive cough. Appears in worse spirits today, appears exasperated - Palliative care team consulted yesterday. Goals of care discussion held with family. Pt increasingly anxious throughout the day - Per nursing, pt desats to 50s last PM off Bipap. - BG 50 in AM. Levemir held, pt given D5W push OBJECTIVE: Vital Signs Intake & Output 10/30/17 10/31/17 11/01/17 11/02/17 23:59 23:59 23:59 23:59 Intake Total 1454 1744 857 426 Output Total 1999 1900 1350 250 Balance -546 -156 -493 176 Weight 76.9 kg 74.106 kg 74.48 kg Period Temp Pulse Resp BP Sys/Sutton Pulse Ox Last 24 Hr 96 F-98.6 F 60-90 19-24 95-156/34-112 85-100 GENERAL: The patient is awake, alert, and fully oriented, appears dyspneic on exam, tripoding HEAD: Normal with no signs of trauma. EYES: PERRL, extraocular movements intact, sclera anicteric, conjunctiva clear. No ptosis. ENT: Ears normal, nares patent, oropharynx clear without exudates, moist mucous membranes. NECK: Trachea midline, full range of motion, supple. LUNGS: Diffuse crackles BL, more prominent in lower lung james. No wheezes, no accessory muscle use. HEART: 2/6 systolic murmur at LUSB. Regular rate and rhythm, S1, S2 without murmur, rub or gallop. ABDOMEN: Still with tenderness to deep palpation in RUQ. Soft, nondistended, normoactive bowel sounds, no guarding, no rebound, no hepatosplenomegaly, no masses. EXTREMITIES: Minimal edema to mid-calf on R side. 2+ pulses, warm, well-perfused NEUROLOGICAL: Cranial nerves II through XII grossly intact. Normal speech, gait not observed. PSYCH: Appears depressed, agitated SKIN: Warm, dry, normal turgor, no rashes or lesions noted Laboratory Results - last 24 hr CBC, BMP 11/02/17 05:05 11/02/17 05:05 10/30/17 10/31/1710/31/18 22:04 05:56 11:09 WBC RBC Hgb Hct MCV MCH MCHC RDW Plt Count MPV Neutrophils % Lymphocytes % Monocytes % Eosinophils % Basophils % PTT (Actin FS) Sodium Potassium Chloride Carbon Dioxide Anion Gap BUN Creatinine Creat Clearance w eGFR POC Glucometer [phone] 139.41952 Random Glucose Calcium Phosphorus Magnesium Total Bilirubin AST ALT Alkaline Phosphatase Total Protein Albumin 10/31/17 10/31/17 11/01/17 16:25 22:41 05:10 WBC 9.8 RBC 2.56 L Hgb 8.5 L Hct 26.0 L MCV 101.7 H MCH 33.0 MCHC 32.5 RDW 16.7 H Plt Count 144 MPV 10.2 Neutrophils % 76.4 Lymphocytes % 13.5 D Monocytes % 7.3 Eosinophils % 2.2 D Basophils % 0.6 PTT (Actin FS) Sodium Potassium Chloride Carbon Dioxide Anion Gap BUN Creatinine Creat Clearance w eGFR POC Glucometer 172.47765 212.55622 Random Glucose Calcium Phosphorus Magnesium Total Bilirubin AST ALT Alkaline Phosphatase Total Protein Albumin 11/01/17 11/01/17 11/01/17 05:10 05:10 05:33 WBC RBC Hgb Hct MCV MCH MCHC RDW Plt Count MPV Neutrophils % Lymphocytes % Monocytes % Eosinophils % Basophils % PTT (Actin FS) 61.1 H Sodium 139 Potassium 4.1 Chloride 99 Carbon Dioxide 35 H Anion Gap 5 L BUN 12 Creatinine 0.5 L Creat Clearance w eGFR > 60 POC Glucometer [phone] Random Glucose 128 H D Calcium 8.3 L Phosphorus 3.0 Magnesium 2.1 Total Bilirubin 0.4 D AST 18 ALT 15 Alkaline Phosphatase 79 Total Protein 6.6 Albumin 2.3 L 11/01/17 11/01/17 11/01/17 10:54 16:53 21:39 WBC RBC Hgb Hct MCV MCH MCHC RDW Plt Count MPV Neutrophils % Lymphocytes % Monocytes % Eosinophils % Basophils % PTT (Actin FS) Sodium Potassium Chloride Carbon Dioxide Anion Gap BUN Creatinine Creat Clearance w eGFR POC Glucometer 153.63321 143.62571 75.41269 Random Glucose Calcium Phosphorus Magnesium Total Bilirubin AST ALT Alkaline Phosphatase Total Protein Albumin 11/02/17 00:05 WBC RBC Hgb Hct MCV MCH MCHC RDW Plt Count MPV Neutrophils % Lymphocytes % Monocytes % Eosinophils % Basophils % PTT (Actin FS) Sodium Potassium Chloride Carbon Dioxide Anion Gap BUN Creatinine Creat Clearance w eGFR POC Glucometer [phone] Random Glucose Calcium Phosphorus Magnesium Total Bilirubin AST ALT Alkaline Phosphatase Total Protein Albumin Active Medications Generic Name Dose Route Start Last Admin Trade Name Freq PRN Reason Stop Dose Admin Acetaminophen 650 mg 10/19/17 22:58 11/01/17 19:44 Tylenol - PO 650 mg Q6H PRN Administration FEVER OR PAIN Alprazolam 0.25 mg 10/31/17 08:38 11/01/17 17:04 Xanax - PO 0.25 mg Q8H PRN Administration ANXIETY Chlorhexidine Gluconate 1 applic 10/17/17 22:00 11/01/17 21:47 Hibiclens For Decolonization - TP 1 applic HS SONAL Administration Dextrose 25 gm 11/01/17 21:49 D50w (Vial) - IVPUSH DAILY PRN hypoglycemia Heparin Sodium (Porcine) 1,000 unit 10/20/17 17:59 10/26/17 12:54 Heparin - IVPUSH 1,000 unit PRN PRN Administration Heparin Heparin Sodium (Porcine) 5,000 unit 10/20/17 17:59 10/30/17 11:42 Heparin - IVPUSH 5,000 unit PRN PRN Administration Heparin HEPARIN SOD,PORK IN 0.45% NACL 25,000 units in 500 mls @ 20 mls/hr 10/20/17 18 :04 11/01/17 11:47 Heparin-1/2ns 25,000 Units/500 IVPB 1,200 units/hr TITR SONAL 24 mls/hr Protocol Titration 1,000 UNITS/HR Insulin Aspart 1 vial 10/17/17 16:30 11/01/17 21:46 Novolog Vial Sliding Scale - SQ Not Given ACHS [facility] Protocol Insulin Detemir 10 units 10/22/17 10:00 11/01/17 10:06 Levemir Vial SQ 10 units DAILY SONAL Administration Nicotine 7 mg 10/19/17 12:45 11/01/17 09:34 Nicoderm Patch - TD 7 mg DAILY SONAL Administration Nystatin 500,000 units 10/30/17 12:00 11/02/17 05:47 Nystatin Oral Suspension - PO 11/09/17 11:59 500,000 units Q6HPO SONAL Administration Pantoprazole Sodium 40 mg 10/25/17 10:00 11/01/17 09:34 Protonix - PO 40 mg DAILY SONAL Administration Prednisone 40 mg 10/24/17 10:00 11/01/17 09:33 Deltasone - PO 40 mg DAILY SONAL Administration Microbiology 10/21/17 06:00 Serum Cryptococcal Antigen - Final 10/19/17 19:30 Sputum - Expectorated Gram Stain - Final 10/19/17 19:30 Sputum - Expectorated Sputum Culture - Final NORMAL RESPIRATORY TOYIN 10/17/17 10:10 Blood - Peripheral Venous Blood Culture - Final NO GROWTH AFTER 5 DAYS INCUBATION 10/17/17 10:10 Blood - Peripheral Venous Blood Culture - Final NO GROWTH AFTER 5 DAYS INCUBATION 10/17/17 13:57 Urine - Urine Clean Catch Urine Culture - Final NO GROWTH OBTAINED 10/17/17 13:57 Urine For Antigen Detection Legionella Antigen - Final 10/17/17 13:57 Urine For Antigen Detection Streptococcus pneumoniae Antigen (M - Final 10/17/17 10:25 Nasopharyngeal Swab Influenza Types A,B Antigen ([facility]) - Final 10/17/17 10:25 Nasopharyngeal Swab - Final Recent imaging: CXR 10/21/17 - Since 10/30/2017, the ARDS pattern has diminished minimally. Follow- up recommended. CT Abdomen 10/31 - The gallbladder demonstrates no definite CT pathology. There is nonspecific minimal to mild intrahepatic biliary tract dilatation. Clinical/ laboratory correlation is suggested as well as with follow-up CT. Dilatation of the main pancreatic duct as noted above. Pancreatic ductal dilatation was also noted on a 2013 ultrasound exam. Several small pancreatic head calcifications are seen suggestive of chronic calcific pancreatitis. No gross mass lesion is identified. Correlate with MRI/MRCP when the patient's clinical condition permits. No CT evidence of acute pancreatitis. Mild acute pancreatitis is frequently not demonstrable on CT or MRI. The partially imaged lower chest demonstrates prominent bilateral interstitial thickening with relative peripheral sparing - ? Noncardiogenic edema, infectious versus noninfectious pneumonitis, hemorrhage. Correlate clinically. This finding may be somewhat increased in comparison to a chest CT exam of 10/20/2017. No pleural effusion is seen. Bibasilar bronchiectasis. There is partial imaging of nonspecific mediastinal lymphadenopathy (as described on chest CT). Prominent atherosclerotic vascular calcifications. Mild to moderate L1 and mild L5 vertebral body compression fractures are noted which appear chronic. No bony retropulsion is seen. The visualized osseous structures appear to be diffusely demineralized. Clinical/laboratory correlation is suggested. Additional evaluation utilizing bone densitometry/DEXA scan may be considered. CXR 11/01 - Since a prior study of 10/31/2017, extensive opacification is identified throughout the lung james with little significant change. This is consistent with ARDS. No pleural effusions have developed. CXR 11/02 - No significant change from prior cxr. Still with BL reticulonodular diffuse opacification. ASSESSMENT/PLAN: 62 year old man w/ PMH of NIDDM, nicotine dependence, BPH and PUD who was admitted for acute hypoxic respiratory failure likely secondary to severe sepsis from PNA, further complicated by acute diastolic heart failure, found to have extensive right LE DVT, now s/p IVC filter (10/20) and catheter-directed thrombectomy (10/24). Pt requiring Bipap continuously, respiratory status continues to worsen. Active discussion with ICU team regarding trach placement and/or transfer to [place] for further management #Acute hypoxic respiratory failure - likely secondary to ILD of unknown etiology. Pt w/ prior smoking hx, worked in factory. Presumptive diagnosis ILD secondary to pneumonitis? Per nursing, pt desat to 50s off Bipap. Pt more dysneic this AM on Bipap - Will require outpt lung bx; may require intubation for stabilization for procedure if decision is made - BiPap/HFNC for O2 support; maintain sat >97% - Duonebs QIDR PRN - C/w prednisone - Morphine for pain control - Xanax prn for anxiety - Need of additional family discussion with critical care team tomorrow regarding trach placement and/or transfer for transplant evaluation #Extensive RLE DVT- IVC filter 10/20, thrombectomy 10/24; Still on heparin gtt - Continue heparin gtt protocol - Transition to NOACs #Acute diastolic CHF failure - No change on CXR - c/w Lasix 20mg BID IV; monitor Cr (0.5 today) - Cardiac monitoring #macrocytic Anemia - 9.0 today; MCV 102; Vit B12 normal - Trend H/H - folate normal #Severe sepsis to PNA- Resolved. Finished course of Rocephin/azithromax on 10/24 #Thrombocytopenia- Resolved. Plt 165 today #IDDM- A1c 7.4 - Pt hypoglycemic to 50 this AM. Given bolus of D5W. Levemir held. f/u finger stick 179 - Hold home oral hypoglycemics; monitor for signs of hypoglycemia - ISS - BGM q4h #BPH -c/w home flomax #nicotine dependence -nicotine patch -smoking cessation PPX Heparin gtt PPI FEN PO fluids Daily BMPs Diabetic diet Pt accepted at [facility]. Ongoing discussion regarding trach placement/transplant w/ u at [facility]. Will coordinate with ICU team. Plan discussed with attending, Dr. James Reeves, PGY1 Visit type - Emergency Visit Emergency Visit: Yes ED Registration Date: 10/17/17 Care time: The patient presented to the Emergency Department on the above date and was hospitalized for further evaluation of their emergent condition. - New Patient This patient is new to me today: No - Critical Care Critical Care patient: Yes Total Critical Care Time (in minutes): 35 Critical Care Statement: The care of this patient involved high complexity decision making to prevent further life threatening deterioration of the patient 's condition and/or to evaluate & treat vital organ system(s) failure or risk of failure.
[2017-11-02 06:37] LABS: HEMATOCRIT 27.8 % (35.4-49); MCH 33.1 pg (25.7-33.7); MCHC 32.2 g/dl (32.0-35.9); MEAN CELL VOLUME 102.6 fl (80-96); MEAN PLT VOLUME 10.2 fl (7.5-11.1); PLATELET COUNT 165 K/MM3 (134-434); RBC 2.71 M/mm3 (4.00-5.60); RDW 16.5 % (11.9-15.9); WHITE BLOOD COUNT 10.8 K/mm3 (4.0-10.0)
--- NOTE | 2017-11-02 06:51 | MSN ---
Progress Note (short form) - Note Progress Note: Subjective: Patient was seen this morning and complains of breathing problems that is worse than yesterday even on bipap. Patient complains of mild RUQ pain. Patient also noted chest pain anteriorly and posteriorly due to his labored breathing. Patient denies N/V/D. Objective: Vital Signs Temp 96 F L 11/02/17 04:00 Pulse 88 11/02/17 06:00 Resp 23 11/02/17 06:00 BP 125/34 11/02/17 06:00 Pulse Ox 98 11/02/17 05:30 Intake & Output 11/01/17 11/01/17 11/02/17 11:59 23:59 11:59 Intake Total 311 546 426 Output Total 200 1150 250 Balance 111 -604 176 Weight 164 lb 3.2 oz Intake: IV 161 276 276 HEPARIN-1/2NS 25,000 161 276 276 UNITS/500 25,000 units In 500 ml @ 1,000 UNITS/HR 20 mls/hr IVPB TITR SONAL Rx#:[id number] Oral 150 270 150 Output: Urine 200 1150 250 Void 200 1150 250 Other: Voiding Method Urinal Urinal # Unmeasured Voids Void 1 1 Bowel Movement No No Weight Measurement Method Built in Bedscale General: Patient is comfortable but slightly anxious and does not like the bipap HEENT: PERRLA. trachea midline. on bipap. Heart: RRR. no murmurs, rubs or gallops. Lungs: decreased breath sounds b/l. Bibasilar rales appreciated. Abdomen: soft, normoactive bowel sounds. mildly tender to palpation of the RUQ, unchanged. Extremities: pulses 2+ B/L on UE and LE. well perfused. RLE trace edema improved. no edema on LLE. CBC, BMP 11/02/17 05:05 11/02/17 05:05 Abnormal Lab Results 10/31/17 11/02/17 11/02/17 05:00 05:05 05:05 WBC 10.8 H RBC 2.71 L Hgb 9.0 L Hct 25.7 L 27.8 L MCV 102.6 H RDW 16.5 H PTT (Actin FS) Chloride 96 L Carbon Dioxide 35 H Creatinine 0.5 L Random Glucose 50 L D Calcium 8.3 L 11/02/17 05:05 WBC RBC Hgb Hct MCV RDW PTT (Actin FS) 63.2 H Chloride Carbon Dioxide Creatinine Random Glucose Calcium Imaging: - chest x-ray 11/02/17: no change - chest x-ray 11/01/17: extensive opacification throughout with little significant changes. consistent with ARDS. - abdominal CT 10/31/17: Several small pancreatic head calcification suggestive of chronic calcific pancreatitis. no acute pancreatitis. Lungs b/l internstitial thickening with relative peripheral sparing. Noncardiogenic edema infx vs noninfectious pneumonitis, hemorrhage. Bibasilae bronchiectasis. Nonspecific mediastinal lymphadenopathy. Prominent atherosclerotic vascular calcifications. Mild chronic L1-L5 body compression fractures. osseous structures diffusely de-mineralized. - chest x-ray 10/31/17: Since 10/30/2017, the ARDS pattern has diminished minimally - chest x-ray 10/30/17: Since 10/29/2017, the diffuse airspace changes are again noted. This has the appearance of an ARDS pattern. Follow-up recommended. - chest x-ray 10/29/17: Since 10/28/2017, the diffuse airspace changes are again noted which could indicate ARDS. - Leg US 10/20/17: DVT noted. There is occlusive thrombosis within the common, deep and superficial femoral veins, as well as the popliteal and posterior tibial veins. These veins are incompressible, an additional sign of DVT. The greater saphenous vein is patent, however, the lesser saphenous vein is also thrombosed. - Abd US 10/18/17: Moderate to marked gallbladder contraction is noted which may be physiologic in nature versus secondary to chronic cholecystitis. If clinically indicated correlate with two-week follow-up sonography with optimal pre - exam fasting. Gallbladder contraction was also described on a previous ultrasound exam of 03/25/2013. No sonographic evidence of acute cholecystitis. There is no obvious evidence of cholelithiasis allowing for previously described gallbladder contraction. No definite biliary tract dilatation is seen. The partially visualized pancreas demonstrates no gross sonographic abnormality. However, on the 2012 ultrasound study dilatation of the main pancreatic duct was described with a 0.5 cm diameter. Given this apparent finding on the prior study additional evaluation utilizing MRI/MRCP is suggested when the patient's clinical condition permits (unless already performed at a different facility). - Echo 10/17/17: normal left ventricle with mild reduced systolic function, EF 45. RV normal. mild to moderate mitral valve thickening. moderate mitral regurgitation. mild tricuspid regurgitation. mild pulmonary HTN. mild arotic steclerosis. no aortic regurgitation. no pericardial effusion. Assessment/ Plan: 62yo M smoker with PMH of NIDDM, PUD, BPH admitted with respiratory failure, severe sepsis, CHF who had extensive right LE DVT s/p IVC filter 10/20/17 and s/p thrombectomy 10/24/17. Patient had increased respiratory distress and was placed on BIPAP, pulse ox 100% on bipap. # Hypoxic respiratory failure possibly from interstitial lung dz with pneumonitis, or CHF. etiology unknown. - on bipap. switch back to high flow nasal cannula if tolerated. - Albuterol/Ipratropium (Duoneb -) 1 amp NEB Q6H PRN SOB - Prednisone (Deltasone -) 40 mg PO DAILY SONAL - bibasilar crackles - diurese BID - LTAC referral pending insurance approval. Dr. Lara spoke to patient and family. Palliative care considered. - xanax standing order for anxiety # NIDDM. A1C 7.4. Hypoglycemic this morning - diabetic diet - Insulin Aspart (Novolog Vial Sliding Scale -) 1 vial SQ ACHS SONAL - Insulin Detemir (Levemir Vial) 10 units SQ DAILY SONAL - discontinued. pt not eating due to frequent desats off bipap. # RUQ abd pain likely secondary to coughing - U/S on 10/18 was negative - abd CT negative for acute pathology # thrombocytopenia - possibly due to sepsis - HIT antibody sent and is unequivocal. Level 0.473 (N: <0.4) likely falsely elevated. KAY negative- HIT ruled out. # RLE pain secondary to DVT s/p IV filter on 10/20/17 and thrombectomy on 10/24/17 - Acetaminophen (Tylenol -) 650 mg PO Q6H PRN fever/ pain - continue heparin # severe sepsis likely secondary to CAP - bp stable. not on pressors. - Azithromycin and Ceftriaxone 7 days completed on 10/24/17 - blood cultures and sputum culture negative # macrocytic anemia - continue to monitor # BPH - continue home med of Tamsulosin 0.4mg PO daily # FEN - F: PO - E: continue to monitor - N: diabetic diet #DVT prophylaxis - heparin drip
[2017-11-02 07:06] LABS: CHLORIDE 96 mmol/L (98-107); POTASSIUM 3.9 mmol/L (3.5-5.1); SODIUM 140 mmol/L (136-145)
[2017-11-02 07:12] LABS: ANION GAP 9 (8-16); BLOOD UREA NITROGEN 18 mg/dL (7-18); CALCIUM 8.3 mg/dL (8.5-10.1); CO2 35 mmol/L (21-32); CREATININE 0.5 mg/dL (0.7-1.3); GLUCOSE,RANDOM 50 mg/dL (74-106)
[2017-11-02] MEDS: INSULIN SLIDING SCALE (NOVOLOG) 1 VIAL SQ SCH ×4 (08:00→22:10)
[2017-11-02] MEDS ORDERED: DEXTROSE 5%-WATER - 1,000 ML IV SCH (08:15)
[2017-11-02] MEDS ORDERED: FUROSEMIDE 40 MG/4 ML INJECTABLE VIAL IVPUSH ONE (08:30)
[2017-11-02] MEDS ORDERED: DEXTROSE 50%-WATER 25 GM/50 ML DISP.SYRIN ONE (08:44)
--- NOTE | 2017-11-02 09:21 | PN ---
Physical Exam: SUBJECTIVE: Patient seen and examined Patient is a 62 year old male who was BIBEMS for hypoxic respiratory failure eating food, off of pressers, but with RLE DVT without PE s/p IVC filter, thrombectomy, catheter directed heparin infusion, requiring bipap. Patient continues to complain of SOB. Patient had two episodes of hypoglycemia requiring D50 pushes. He continues to saturate at 99% on bipap. Otherwise, no acute events overnight. OBJECTIVE: Vital Signs Period Temp Pulse Resp BP Sys/Sutton Pulse Ox Last 24 Hr 96 F-98.6 F 60-90 19-24 95-156/34-112 96-100 GENERAL: The patient is awake, alert, and fully oriented, in no acute distress, on bipap. HEAD: Normal with no signs of trauma. EYES: sclera anicteric, conjunctiva clear. No ptosis. ENT: Ears normal, nares patent, oropharynx clear without exudates, moist mucous membranes. NECK: Trachea midline, full range of motion, supple. LUNGS: Breath sounds equal, Rales bilaterally, no wheezes, no accessory muscle use. HEART: Regular rate and rhythm, S1, S2 without murmur, rub or gallop. ABDOMEN: Soft, nontender, nondistended, normoactive bowel sounds, no guarding, no rebound, no hepatosplenomegaly, no masses. EXTREMITIES: 2+ pulses, warm, well-perfused, NEUROLOGICAL: Normal speech, gait not observed. PSYCH: Normal mood, normal affect. SKIN: Warm, dry, normal turgor, no rashes or lesions noted Laboratory Results - last 24 hr 10/30/17 10/31/17 10/31/17 22:04 05:00 05:56 WBC RBC Hgb Hct 25.7 L MCV MCH MCHC RDW Plt Count MPV PTT (Actin FS) Sodium Potassium Chloride Carbon Dioxide Anion Gap BUN Creatinine POC Glucometer [phone] Random Glucose Calcium Folate 1135 Folate Hemolysate 291.6 10/31/17 10/31/17 10/31/17 11:09 16:25 22:41 WBC RBC Hgb Hct MCV MCH MCHC RDW Plt Count MPV PTT (Actin FS) Sodium Potassium Chloride Carbon Dioxide Anion Gap BUN Creatinine POC Glucometer 139.46239 172.95336 [phone] Random Glucose Calcium Folate Folate Hemolysate 0111/01/17 11/01/17 05:33 10:54 16:53 WBC RBC Hgb Hct MCV MCH MCHC RDW Plt Count MPV PTT (Actin FS) Sodium Potassium Chloride Carbon Dioxide Anion Gap BUN Creatinine POC Glucometer [phone] 143.44196 Random Glucose Calcium Folate Folate Hemolysate 11/01/17 11/02/17 11/02/17 21:39 00:05 05:05 WBC 10.8 H RBC 2.71 L Hgb 9.0 L Hct 27.8 L MCV 102.6 H MCH 33.1 MCHC 32.2 RDW 16.5 H Plt Count 165 MPV 10.2 PTT (Actin FS) Sodium Potassium Chloride Carbon Dioxide Anion Gap BUN Creatinine POC Glucometer 75.69965 [phone] Random Glucose Calcium Folate Folate Hemolysate 11/02/17 11/02/17 05:05 05:05 WBC RBC Hgb Hct MCV MCH MCHC RDW Plt Count MPV PTT (Actin FS) 63.2 H Sodium 140 Potassium 3.9 Chloride 96 L Carbon Dioxide 35 H Anion Gap 9 BUN 18 D Creatinine 0.5 L POC Glucometer Random Glucose 50 L D Calcium 8.3 L Folate Folate Hemolysate Active Medications Generic Name Dose Route Start Last Admin Trade Name Freq PRN Reason Stop Dose Admin Acetaminophen 650 mg 10/19/17 22:58 11/02/17 06:24 Tylenol - PO 650 mg Q6H PRN Administration FEVER OR PAIN Alprazolam 0.25 mg 10/31/17 08:38 11/02/17 06:25 Xanax - PO 0.25 mg Q8H PRN Administration ANXIETY Chlorhexidine Gluconate 1 applic 10/17/17 22:00 11/01/17 21:47 Hibiclens For Decolonization - TP 1 applic HS SONAL Administration Dextrose 25 gm 11/01/17 21:49 11/02/17 08:47 D50w (Vial) - IVPUSH 25 gm DAILY PRN Administration hypoglycemia Furosemide 20 mg 11/02/17 14:00 Lasix Injection - IVPB BID@0600,1400 SONAL Heparin Sodium (Porcine) 1,000 unit 10/20/17 17:59 10/26/17 12:54 Heparin - IVPUSH 1,000 unit PRN PRN Administration Heparin Heparin Sodium (Porcine) 5,000 unit 10/20/17 17:59 10/30/17 11:42 Heparin - IVPUSH 5,000 unit PRN PRN Administration Heparin HEPARIN SOD,PORK IN 0.45% NACL 25,000 units in 500 mls @ 20 mls/hr 10/20/17 18 :04 11/02/17 07:34 Heparin-1/2ns 25,000 Units/500 IVPB 1,150 units/hr TITR SONAL 23 mls/hr Protocol Titration 1,000 UNITS/HR Insulin Aspart 1 vial 10/17/17 16:30 11/02/17 08:00 Novolog Vial Sliding Scale - SQ Not Given ACHS SONAL Protocol Nicotine 7 mg 10/19/17 12:45 11/01/17 09:34 Nicoderm Patch - TD 7 mg DAILY SONAL Administration Nystatin 500,000 units 10/30/17 12:00 11/02/17 05:47 Nystatin Oral Suspension - PO 11/09/17 11:59 500,000 units Q6HPO SONAL Administration Pantoprazole Sodium 40 mg 10/25/17 10:00 11/01/17 09:34 Protonix - PO 40 mg DAILY SONAL Administration Prednisone 40 mg 10/24/17 10:00 11/01/17 09:33 Deltasone - PO 40 mg DAILY SONAL Administration ASSESSMENT/PLAN: Patient is a 62 year old male who was BIBEMS for hypoxic respiratory failure eating food, off of pressers, but with RLE DVT without PE s/p IVC filter, thrombectomy, catheter directed heparin infusion, requiring bipap. Neuro: #Nicotine Dependence: - Nicotine patch 7 MG daily #Anxiety -Will place the patient on a standing order for xanax 0.25mg q8h given patient' s continued anxiety and subsequent desaturations due to anxiety. CV: #Septic Shock vs. iatrogenic hypovolemic shock vs. cardiogenic shock: original presentation - Tachycardia of 105, Respiratory rate 26, Fever of 101, WBC of 11.7, Hypotension with SBP <90 with no response to IV fluids, and Lactic Acidosis of 3.6. Source unclear but likely PNA. Off pressers - Resolved #DVT: U/S positive for Right calf DVT, s/p thrombectomy - s/p IR direct infusion yesterday, doing well - Continue hep drip #Chest Pain: - EKG unchanged Pulm: #Acute Hypoxic Respiratory Failure: Legionalla and strep negative. Zosyn and Vancomycin given in ED. Patient denies any recent hospitalization or abx use. Original chest X-ray reveals bilateral multifocal inflammatory changes (ARDS) vs. congestive heart failure. given JVD and crackles it is likely the later. treated for CAP. ECHO showing mild mitral regurg, mild/mod tricuspid regurg, mild PHTN. CT demonstrating diffuse interstitial lung disease AND XRs evidencing occasional volume overload. -Will start lasix 20mg BID as this seemed to help improve the patient's symptoms. - Continue Prednisone 40 daily - continue Bipap - all cultures negative ID: likely ILD with GGO vs. infectious pattern. HIV, influenza, strep, legionella neg. BCx NGTD, sputum Cx NGTD. Completed Azithromycin and Ceftriaxone for suspected CAP. All cultures neg and ID tests neg including cryptococcal - ID recs appreciated Renal: - CTM - Avoid nephrotoxic medications Heme: #Macrocytic Anemia: Hemoglobin 9.2 with MCV 101. Ferritin 882 (likely reactive) -Hb stable Endo #NIDDM: -Patient has been having hypoglycemic episodes requiring D50 pushes -Will continue to monitor BGM and provided D50 pushes as needed. -ISS : #BPH -Patient on Tamsulosin 0.4mg daily GI: #Peptic Ulcer Disease: History of mesh according to family and had Endoscopy two months. Was given medications according to patients daughter and completed course. - on PPI FEN -Electrolytes Repleted as needed. -Diabetic diet while on HFNC PPX: - Hep drip - Protonix Disposition: Continued ICU care. LTAC placement. Visit type - Emergency Visit Emergency Visit: No - New Patient This patient is new to me today: No - Critical Care Critical Care patient: Yes Total Critical Care Time (in minutes): 35 Critical Care Statement: The care of this patient involved high complexity decision making to prevent further life threatening deterioration of the patient 's condition and/or to evaluate & treat vital organ system(s) failure or risk of failure.
[2017-11-02] MEDS: predniSONE 20 MG TABLET (UD) PO SCH (09:26)
[2017-11-02] MEDS: PANTOPRAZOLE 40 MG TABLET (FP) PO SCH (09:26)
[2017-11-02] MEDS: NICOTINE 7 MG/24 HOURS TOPICAL PATCH TD SCH (11:01)
--- NOTE | 2017-11-02 13:06 | PN ---
Teaching Attending Note Name of Resident: Evans Marie ATTENDING PHYSICIAN STATEMENT I saw and evaluated the patient. I reviewed the resident's note and discussed the case with the resident. I agree with the resident's findings and plan as documented. SUBJECTIVE: Pt seen and examined in the ICU. Remains on BiPAP with 100% FiO2 with intermittent desaturations. CXR better with diuresis yesterday. OBJECTIVE: Last Vital Signs Temp Pulse Resp BP Pulse Ox 97.0 F L 79 20 152/58 100 11/02/17 12:00 11/02/17 12:00 11/02/17 12:00 11/02/17 12:00 11/02/17 11:12 Intake & Output 10/30/17 10/31/17 11/01/17 11/02/17 23:59 23:59 23:59 23:59 Intake Total 1454 1744 857 426 Output Total 19990 1350 750 Balance -546 -156 -493 -324 Weight 76.9 kg 74.106 kg 74.48 kg 74.389 kg Gen: tachypneic on BiPAP Heart: RRR Lung: basilar rales, rhonchi Abd: soft, nontender Ext: no edema CBC, BMP 11/02/17 05:05 11/02/17 05:05 Active Medications Acetaminophen (Tylenol -) 650 mg PO Q6H PRN PRN Reason: FEVER OR PAIN Last Admin: 11/02/17 06:24 Dose: 650 mg Alprazolam (Xanax -) 0.25 mg PO Q8H PRN PRN Reason: FOR ANXIETY Chlorhexidine Gluconate (Hibiclens For Decolonization -) 1 applic TP HS SONAL Last Admin: 11/01/17 21:47 Dose: 1 applic Dextrose (D50w (Vial) -) 25 gm IVPUSH DAILY PRN PRN Reason: hypoglycemia Last Admin: 11/02/17 08:47 Dose: 25 gm Furosemide (Lasix Injection -) 20 mg IVPB BID@0600,1400 SONAL Heparin Sodium (Porcine) (Heparin -) 1,000 unit IVPUSH PRN PRN PRN Reason: Heparin Last Admin: 10/26/17 12:54 Dose: 1,000 unit Heparin Sodium (Porcine) (Heparin -) 5,000 unit IVPUSH PRN PRN PRN Reason: Heparin Last Admin: 10/30/17 11:42 Dose: 5,000 unit HEPARIN SOD,PORK IN 0.45% NACL (Heparin-1/2ns 25,000 Units/500) 25,000 units in 500 mls @ 20 mls/hr IVPB TITR SONAL; 1,000 UNITS/HR PRN Reason: Protocol Last Titration: 11/02/17 07:34 Dose: 1,150 units/hr, 23 mls/hr Insulin Aspart (Novolog Vial Sliding Scale -) 1 vial SQ ACHS SONAL PRN Reason: Protocol Last Admin: 11/02/17 10:59 Dose: Not Given Nicotine (Nicoderm Patch -) 7 mg TD DAILY [facility] Last Admin: 11/02/17 11:01 Dose: 7 mg Nystatin (Nystatin Oral Suspension -) 500,000 units PO Q6HPO [facility] Stop: 11/09/17 11:59 Last Admin: 11/02/17 12:50 Dose: 500,000 units Pantoprazole Sodium (Protonix -) 40 mg PO DAILY [facility] Last Admin: 11/02/17 09:26 Dose: 40 mg Prednisone (Deltasone -) 40 mg PO DAILY [facility] Last Admin: 11/02/17 09:26 Dose: 40 mg ASSESSMENT AND PLAN: Acute Hypoxic Respiratory Failure Pneumonia Sepsis Interstitial Lung Disease Acute Diastolic Heart Failure improved Acute Kidney Injury improving Lactic Acidosis resolved DM RLE DVT - antibiotics completed - continue prednisone - BiPAP - taper FiO2 to keep SpO2 >90% - lasix as needed - monitor urine output, creatinine - anxiolytics - monitor CXR - continue anticoagulation, can start PO if no further procedures planned - PO as tolerated - continue ICU monitoring for tenuous respiratory status - agree with LTAC placement - poor overall prognosis critical care time spent in reviewing chart, evaluating patient and formulating plan 35 min Problem List - Problems (1) Acute respiratory failure with hypoxia Code(s): J96.01 - ACUTE RESPIRATORY FAILURE WITH HYPOXIA (2) Pneumonia Code(s): J18.9 - PNEUMONIA, UNSPECIFIED ORGANISM (3) Diabetes Code(s): E11.9 - TYPE 2 DIABETES MELLITUS WITHOUT COMPLICATIONS
[2017-11-02] MEDS: FUROSEMIDE 100 MG/10 ML INJECTABLE VIAL IVPB SCH (13:38)
[2017-11-02] MEDS: LYTES/YERBA SANTA 240 ML BOTTLE MM SCH (17:08)
--- NOTE | 2017-11-02 18:01 | PN ---
Teaching Attending Note Name of Resident: Dylon Reeves ATTENDING PHYSICIAN STATEMENT Time of evaluation: 12 15 PM I saw and evaluated the patient. I reviewed the resident's note and discussed the case with the resident. I agree with the resident's findings and plan as documented. SUBJECTIVE: Patient seen and examined. breathing overall unchanged. No right sided chest or abdominal pain currently. right leg pain resolved. OBJECTIVE: Vital Signs Period Temp Pulse Resp BP Sys/Sutton Pulse Ox Last 24 Hr 96 F-97.8 F 60-92 19-25 118-156/34-112 93-100 Intake & Output 10/30/17 10/31/17 11/01/17 11/02/17 23:59 23:59 23:59 23:59 Intake Total 1454 1744 857 802 Output Total 1999 1900 1350 1000 Balance -546 -156 -493 -198 Weight 169 lb 8.568 oz 163 lb 6 oz 164 lb 3.2 oz 164 lb General: sitting in bipap, mild respiratory distress CVS:S1S2 regular Chest: bibasilar rales, decreased air entry all over Abdomen: soft, NT, Nd, positive bowel sounds extremities; almost resolved RLE edema Home Medication List Medication Instructions Recorded Confirmed Type Glipizide [Glucotrol Xl] 0 mg PO ASDIR 10/17/17 10/17/17 History Metformin HCl 0 mg PO ASDIR 10/17/17 10/17/17 History Tamsulosin HCl 0.4 mg PO DAILY 10/17/17 10/17/17 History Active Medications Generic Name Dose Route Start Last Admin Trade Name Freq PRN Reason Stop Dose Admin Acetaminophen 650 mg 10/19/17 22:58 11/02/17 06:24 Tylenol - PO 650 mg Q6H PRN Administration FEVER OR PAIN Alprazolam 0.25 mg 11/02/17 12:00 11/02/17 16:41 Xanax - PO 0.25 mg Q8H PRN Administration FOR ANXIETY Chlorhexidine Gluconate 1 applic 10/17/17 22:00 11/01/17 21:47 Hibiclens For Decolonization - TP 1 applic HS SONAL Administration Dextrose 25 gm 11/01/17 21:49 11/02/17 08:47 D50w (Vial) - IVPUSH 25 gm DAILY PRN Administration hypoglycemia Furosemide 20 mg 11/02/17 14:00 11/02/17 13:38 Lasix Injection - IVPB 20 mg BID@0600,1400 SONAL Administration Heparin Sodium (Porcine) 1,000 unit 10/20/17 17:59 10/26/17 12:54 Heparin - IVPUSH 1,000 unit PRN PRN Administration Heparin Heparin Sodium (Porcine) 5,000 unit 10/20/17 17:59 10/30/17 11:42 Heparin - IVPUSH 5,000 unit PRN PRN Administration Heparin HEPARIN SOD,PORK IN 0.45% NACL 25,000 units in 500 mls @ 20 mls/hr 10/20/17 18 :04 11/02/17 07:34 Heparin-1/2ns 25,000 Units/500 IVPB 1,150 units/hr TITR SONAL 23 mls/hr Protocol Titration 1,000 UNITS/HR Insulin Aspart 1 vial 10/17/17 16:30 11/02/17 16:40 Novolog Vial Sliding Scale - SQ Not Given ACHS [facility] Protocol Nicotine 7 mg 10/19/17 12:45 11/02/17 11:01 Nicoderm Patch - TD 7 mg DAILY SONAL Administration Nystatin 500,000 units 10/30/17 12:00 11/02/17 18:00 Nystatin Oral Suspension - PO 11/09/17 11:59 Not Given Q6HPO SONAL Pantoprazole Sodium 40 mg 10/25/17 10:00 11/02/17 09:26 Protonix - PO 40 mg DAILY SONAL Administration Prednisone 40 mg 10/24/17 10:00 11/02/17 09:26 Deltasone - PO 40 mg DAILY SONAL Administration Saliva Substitute 1 applic 11/02/17 15:45 11/02/17 17:08 Mouthkote Solution - MM 1 applic DAILY SONAL Administration Laboratory Results - last 24 hr 10/31/17 11/01/17 11/01/17 05:00 10:54 16:53 WBC RBC Hgb Hct 25.7 L MCV MCH MCHC RDW Plt Count MPV PTT (Actin FS) Sodium Potassium Chloride Carbon Dioxide Anion Gap BUN Creatinine POC Glucometer 153.99716 143.67852 Random Glucose Calcium Folate 1135 Folate Hemolysate 291.6 11/01/17 11/02/17 11/02/17 21:39 00:05 05:05 WBC 10.8 H RBC 2.71 L Hgb 9.0 L Hct 27.8 L MCV 102.6 H MCH 33.1 MCHC 32.2 RDW 16.5 H Plt Count 165 MPV 10.2 PTT (Actin FS) Sodium Potassium Chloride Carbon Dioxide Anion Gap BUN Creatinine POC Glucometer 75.14649 78.06820 Random Glucose Calcium Folate Folate Hemolysate 11/02/17 11/02/17 11/02/17 05:05 05:05 16:38 WBC RBC Hgb Hct MCV MCH MCHC RDW Plt Count MPV PTT (Actin FS) 63.2 H Sodium 140 Potassium 3.9 Chloride 96 L Carbon Dioxide 35 H Anion Gap 9 BUN 18 D Creatinine 0.5 L POC Glucometer 179.88193 Random Glucose 50 L D Calcium 8.3 L Folate Folate Hemolysate Microbiology 10/21/17 06:00 Serum Cryptococcal Antigen - Final 10/19/17 19:30 Sputum - Expectorated Gram Stain - Final 10/19/17 19:30 Sputum - Expectorated Sputum Culture - Final NORMAL RESPIRATORY TOYIN 10/17/17 10:10 Blood - Peripheral Venous Blood Culture - Final NO GROWTH AFTER 5 DAYS INCUBATION 10/17/17 10:10 Blood - Peripheral Venous Blood Culture - Final NO GROWTH AFTER 5 DAYS INCUBATION 10/17/17 13:57 Urine - Urine Clean Catch Urine Culture - Final NO GROWTH OBTAINED 10/17/17 13:57 Urine For Antigen Detection Legionella Antigen - Final 10/17/17 13:57 Urine For Antigen Detection Streptococcus pneumoniae Antigen (M - Final 10/17/17 10:25 Nasopharyngeal Swab Influenza Types A,B Antigen ([facility]) - Final 10/17/17 10:25 Nasopharyngeal Swab - Final ASSESSMENT AND PLAN: 62 yo M active smoker, pMHx of NIDDM, PUD, BPH admitted with acute hypoxic respiratory failure, and extensive RLE DVT -Acute hypoxic respiratory failure, suspect from ?ILD with pneumonitis -Extensive RLE Acute DVT, s/p IVC filter 10/20, thrombectmy 10/24 - Acute diastolic heart failure -Sepsis, likely from PNA -Lactic acidosis, from sepsis vs increased work of breathing, rsolved -?MIRLANDE from sepsis, resolved -Thrombocytopenia -Elevated INR -Chest wall and right sided abdominal pain -NIDDM -PUD -BPH Plan: hypoxic and tachypneic overnight, placed on bipap. Discussed with Dr. Lara, continue prednsione, additional lasix today. ?ILD with pneumonitis, unclear etiology, Heparin drip. Hematology input noted, SFA for HIT neg, discuss about starting NOAC now if no procedure planned. CT A/P noted, no acute concerns. Platelets improved. replete lytes prn. Ac 7.4, hold oral hypoglycemics. levemir, ISS, diabetic diet. Continue flomax. Nicotine patch MICU monitoring. DIscussed with social work, patient accepted to LTACH. ?tracheostomy, will follow up. ?transfer to [place] for additional w/u. Will address with ICU team and family. Plan discussed with patient and daughter at bedside in detail, all questions answered. Total critical care time spent 35 min.
[2017-11-02] MEDS: CHLORHEXIDINE GLUCONATE 4% CLEANSER FOR DECOLONIZATION TP SCH (22:15)
[2017-11-02] MEDS ORDERED: PT OWN MED DRAWER 7, Y5N ONE (22:41)
[2017-11-03] MEDS: ALPRAZolam 0.25 MG TABLET PO PRN (03:03)
--- NOTE | 2017-11-03 05:26 | PN ---
Physical Exam: SUBJECTIVE: Patient seen and examined by me this AM - Still w/ poor respiratory status. No significant change since yesterday. Pt now completely dependent on Bipap, desats to 50-60s immediately when removed per nursing. Limited PO intact due to respiratory status. Pt continues to endorse pleuritic CP, substernal, RUQ. Still with cough. Plan for family meeting today with critical care team for further discussion. OBJECTIVE: Vital Signs Intake & Output 10/31/17 11/01/17 11/02/17 11/03/17 23:59 23:59 23:59 23:59 Intake Total 1744 857 852 Output Total 1900 1350 1200 Balance -156 -961 -348 Weight 74.106 kg 74.48 kg 74.389 kg Period Temp Pulse Resp BP Sys/Sutton Pulse Ox Last 24 Hr 97.0 F-97.5 F 66-92 20-26 91-152/34-88 93-100 GENERAL: The patient is awake, alert, and fully oriented, in no acute distress. HEAD: Normal with no signs of trauma. EYES: PERRL, extraocular movements intact, sclera anicteric, conjunctiva clear. No ptosis. ENT: Ears normal, nares patent, oropharynx clear without exudates, moist mucous membranes. NECK: Trachea midline, full range of motion, supple. LUNGS: Diffuse crackles BL, more at bases. No wheezes, no accessory muscle use HEART: 2/6 systolic mrmur at LUSB. Regular rate and rhythm, S1, S2 without murmur, rub or gallop. ABDOMEN: Soft, nontender, nondistended, normoactive bowel sounds, no guarding, no rebound, no hepatosplenomegaly, no masses. EXTREMITIES: No edema in LEs. 2+ pulses, warm, well-perfused NEUROLOGICAL: Cranial nerves II through XII grossly intact. Normal speech, gait not observed. PSYCH: Normal mood, normal affect. Still depressed. SKIN: Warm, dry, normal turgor, no rashes or lesions noted Laboratory Results - last 24 hr CBC, BMP 11/03/17 06:00 11/03/17 06:00 11/02/17 05:05 11/02/17 05:05 10/31/17 11/02/17 11/02/17 05:00 05:05 05:05 WBC 10.8 H RBC 2.71 L Hgb 9.0 L Hct 25.7 L 27.8 L MCV 102.6 H MCH 33.1 MCHC 32.2 RDW 16.5 H Plt Count 165 MPV 10.2 PTT (Actin FS) Sodium 140 Potassium 3.9 Chloride 96 L Carbon Dioxide 35 H Anion Gap 9 BUN 18 D Creatinine 0.5 L POC Glucometer Random Glucose 50 L D Calcium 8.3 L Folate 1135 Folate Hemolysate 291.6 11/02/17 11/02/17 05:05 16:38 WBC RBC Hgb Hct MCV MCH MCHC RDW Plt Count MPV PTT (Actin FS) 63.2 H Sodium Potassium Chloride Carbon Dioxide Anion Gap BUN Creatinine POC Glucometer [phone] Random Glucose Calcium Folate Folate Hemolysate Active Medications Generic Name Dose Route Start Last Admin Trade Name Freq PRN Reason Stop Dose Admin Acetaminophen 650 mg 10/19/17 22:58 11/02/17 22:14 Tylenol - PO 650 mg Q6H PRN Administration FEVER OR PAIN Alprazolam 0.25 mg 11/02/17 12:00 11/03/17 03:03 Xanax - PO 0.25 mg Q8H PRN Administration FOR ANXIETY Chlorhexidine Gluconate 1 applic 10/17/17 22:00 11/02/17 22:15 Hibiclens For Decolonization - TP 1 applic HS SONAL Administration Dextrose 25 gm 11/01/17 21:49 11/02/17 08:47 D50w (Vial) - IVPUSH 25 gm DAILY PRN Administration hypoglycemia Furosemide 20 mg 11/02/17 14:00 11/02/17 13:38 Lasix Injection - IVPB 20 mg BID@0600,1400 SONAL Administration Heparin Sodium (Porcine) 1,000 unit 10/20/17 17:59 10/26/17 12:54 Heparin - IVPUSH 1,000 unit PRN PRN Administration Heparin Heparin Sodium (Porcine) 5,000 unit 10/20/17 17:59 10/30/17 11:42 Heparin - IVPUSH 5,000 unit PRN PRN Administration Heparin HEPARIN SOD,PORK IN 0.45% NACL 25,000 units in 500 mls @ 20 mls/hr 10/20/17 18 :04 11/02/17 07:34 Heparin-1/2ns 25,000 Units/500 IVPB 1,150 units/hr TITR SONAL 23 mls/hr Protocol Titration 1,000 UNITS/HR Insulin Aspart 1 vial 10/17/17 16:30 11/02/17 22:10 Novolog Vial Sliding Scale - SQ Not Given ACHS [facility] Protocol Nicotine 7 mg 10/19/17 12:45 11/02/17 11:01 Nicoderm Patch - TD 7 mg DAILY SONAL Administration Nystatin 500,000 units 10/30/17 12:00 11/02/17 23:46 Nystatin Oral Suspension - PO 11/09/17 11:59 500,000 units Q6HPO SON[facility] Administration Pantoprazole Sodium 40 mg 10/25/17 10:00 11/02/17 09:26 Protonix - PO 40 mg DAILY SONAL Administration Prednisone 40 mg 10/24/17 10:00 11/02/17 09:26 Deltasone - PO 40 mg DAILY SONAL Administration Saliva Substitute 1 applic 11/02/17 15:45 11/02/17 17:08 Mouthkote Solution - MM 1 applic DAILY SONAL Administration Microbiology 10/21/17 06:00 Serum Cryptococcal Antigen - Final 10/19/17 19:30 Sputum - Expectorated Gram Stain - Final 10/19/17 19:30 Sputum - Expectorated Sputum Culture - Final NORMAL RESPIRATORY TOYIN 10/17/17 10:10 Blood - Peripheral Venous Blood Culture - Final NO GROWTH AFTER 5 DAYS INCUBATION 10/17/17 10:10 Blood - Peripheral Venous Blood Culture - Final NO GROWTH AFTER 5 DAYS INCUBATION 10/17/17 13:57 Urine - Urine Clean Catch Urine Culture - Final NO GROWTH OBTAINED 10/17/17 13:57 Urine For Antigen Detection Legionella Antigen - Final 10/17/17 13:57 Urine For Antigen Detection Streptococcus pneumoniae Antigen (M - Final 10/17/17 10:25 Nasopharyngeal Swab Influenza Types A,B Antigen ([facility]) - Final 10/17/17 10:25 Nasopharyngeal Swab - Final Recent imaging: CXR 10/21/17 - Since 10/30/2017, the ARDS pattern has diminished minimally. Follow- up recommended. CT Abdomen 10/31 - The gallbladder demonstrates no definite CT pathology. There is nonspecific minimal to mild intrahepatic biliary tract dilatation. Clinical/ laboratory correlation is suggested as well as with follow-up CT. Dilatation of the main pancreatic duct as noted above. Pancreatic ductal dilatation was also noted on a 2013 ultrasound exam. Several small pancreatic head calcifications are seen suggestive of chronic calcific pancreatitis. No gross mass lesion is identified. Correlate with MRI/MRCP when the patient's clinical condition permits. No CT evidence of acute pancreatitis. Mild acute pancreatitis is frequently not demonstrable on CT or MRI. The partially imaged lower chest demonstrates prominent bilateral interstitial thickening with relative peripheral sparing - ? Noncardiogenic edema, infectious versus noninfectious pneumonitis, hemorrhage. Correlate clinically. This finding may be somewhat increased in comparison to a chest CT exam of 10/20/2017. No pleural effusion is seen. Bibasilar bronchiectasis. There is partial imaging of nonspecific mediastinal lymphadenopathy (as described on chest CT). Prominent atherosclerotic vascular calcifications. Mild to moderate L1 and mild L5 vertebral body compression fractures are noted which appear chronic. No bony retropulsion is seen. The visualized osseous structures appear to be diffusely demineralized. Clinical/laboratory correlation is suggested. Additional evaluation utilizing bone densitometry/DEXA scan may be considered. CXR 11/01 - Since a prior study of 10/31/2017, extensive opacification is identified throughout the lung james with little significant change. This is consistent with ARDS. No pleural effusions have developed. CXR 11/02 - No significant change from prior cxr. Still with BL reticulonodular diffuse opacification. 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 #Acute hypoxic respiratory failure - likely secondary to ILD of unknown etiology. Pt w/ prior smoking hx, worked in factory. Presumptive diagnosis ILD secondary to pneumonitis? Per nursing, pt desat to 50s off Bipap. Pt more dysneic this AM on Bipap - Consider lung bx for further workup of etiology of lung dz - Pt intubated today, NG tube placed for feeds - Insurance denied coverage for LTACH placement - C/w prednisone - fentanyl, midazolam for sedation - Xanax prn for anxiety - Once stable, will require transfer to tertiary care center for transplant evaluation #Extensive RLE DVT- IVC filter 10/20, thrombectomy 10/24; Still on heparin gtt - Continue heparin gtt protocol - Transition to NOACs #Acute diastolic CHF failure - - c/w Lasix 20mg BID IV; monitor Cr (0.7 today) - Cardiac monitoring #macrocytic Anemia - 10.0 today; MCV 102; Vit B12 normal - Trend H/H - folate normal #IDDM- A1c 7.4 - No further episodes of hypoglycemia; Dextrose push PRN - Hold home oral hypoglycemics; monitor for signs of hypoglycemia - ISS - BGM q4h #BPH -c/w home flomax #nicotine dependence -nicotine patch -smoking cessation PPX Heparin gtt IV PPI FEN PO fluids Daily BMPs Diabetic diet Pt denied coverage for LTACH. Will likely require transfer to tertiary care center for transplant evaluation once stabilized. . Plan discussed with attending, Dr. James Reeves, PGY1 Visit type - Emergency Visit Emergency Visit: Yes ED Registration Date: 10/17/17 Care time: The patient presented to the Emergency Department on the above date and was hospitalized for further evaluation of their emergent condition. - New Patient This patient is new to me today: Yes Date on this admission: 11/04/17 - Critical Care Critical Care patient: Yes Total Critical Care Time (in minutes): 35 Critical Care Statement: The care of this patient involved high complexity decision making to prevent further life threatening deterioration of the patient 's condition and/or to evaluate & treat vital organ system(s) failure or risk of failure.
[2017-11-03] MEDS: NYSTATIN 500,000 UNITS/5 ML SUSPENSION PO SCH ×3 (06:15→17:47)
[2017-11-03 06:16] LABS: BASO % 0.5 % (0-2.0); EOS % 0.5 % (0-4.5); HEMATOCRIT 30.9 % (35.4-49); LYMPH % 13.6 % (8-40); MCH 33.2 pg (25.7-33.7); MCHC 32.3 g/dl (32.0-35.9); MEAN CELL VOLUME 102.8 fl (80-96); MEAN PLT VOLUME 10.5 fl (7.5-11.1); MONO % 8.5 % (3.8-10.2); NEUT % 76.9 % (42.8-82.8); PLATELET COUNT 219 K/MM3 (134-434); RBC 3.01 M/mm3 (4.00-5.60); RDW 16.4 % (11.9-15.9); WHITE BLOOD COUNT 9.7 K/mm3 (4.0-10.0)
[2017-11-03] MEDS: INSULIN SLIDING SCALE (NOVOLOG) 1 VIAL SQ SCH ×4 (06:16→21:07)
[2017-11-03] MEDS: FUROSEMIDE 100 MG/10 ML INJECTABLE VIAL IVPB SCH ×2 (06:16→14:21)
[2017-11-03 07:00] LABS: ALBUMIN 2.7 g/dl (3.4-5.0); ANION GAP 9 (8-16); BILIRUBIN,TOTAL 0.6 mg/dL (0.2-1.0); BLOOD UREA NITROGEN 25 mg/dL (7-18); CALCIUM 8.8 mg/dL (8.5-10.1); CHLORIDE 91 mmol/L (98-107); CO2 37 mmol/L (21-32); CREATININE 0.7 mg/dL (0.7-1.3); GLUCOSE,RANDOM 118 mg/dL (74-106); PHOSPHOROUS 3.3 mg/dL (2.5-4.9); POTASSIUM 4.4 mmol/L (3.5-5.1); SGPT/ALT 16 U/L (12-78); SODIUM 137 mmol/L (136-145); TOT PROT 8.1 g/dl (6.4-8.2)
[2017-11-03 07:01] LABS: ALK PHOS 78 U/L (45-117); SGOT/AST 13 U/L (15-37)
[2017-11-03] MEDS: HEPARIN SOD,PORK IN 0.45% NACL 25,000 UNITS/500 ML INFUS.BAG IVPB SCH (07:12)
--- NOTE | 2017-11-03 08:01 | MSN ---
Progress Note (short form) - Note Progress Note: Subjective: Patient was seen this morning and states that his breathing is getting worse. RUQ abd pain is unchanged from yesterday. Has not been able to eat. Denies N/V/D Objective: Vital Signs Temp 97.6 F 11/03/17 06:00 Pulse 86 11/03/17 06:00 Resp 27 H 11/03/17 06:00 BP 139/52 11/03/17 06:00 Pulse Ox 95 11/03/17 05:20 Intake & Output 10/31/17 11/01/17 11/02/17 11/03/17 23:59 23:59 23:59 23:59 Intake Total 1744 857 852 376 Output Total 1900 1350 1200 200 Balance -156 493 -348 176 Weight 163 lb 6 oz 164 lb 3.2 oz 164 lb 164 lb 2 oz General: Thin man, resting but struggles with his breathing. HEENT: head atraumatic. PERRLA. on bipap Heart: RRR, no murmurs, rubs or gallops appreciated Lungs: diminished breath sounds/ poor airflow, bibasilar crackles appreciated bilaterally, some wheezing. Abdomen: soft. tender to palpation on the RUQ. abd mesh more visible. Extremities: no edema noted B/L on UE and LE. Pulses 2+ B/L on UE and LE CBC, BMP 11/03/17 06:00 11/03/17 06:00 Abnormal Lab Results 10/31/17 11/03/17 11/03/17 05:00 06:00 06:00 RBC 3.01 L Hgb 10.0 L D Hct 25.7 L 30.9 L MCV 102.8 H RDW 16.4 H Chloride 91 L Carbon Dioxide 37 H BUN 25 H D Random Glucose 118 H D AST 13 L D Albumin 2.7 L Laboratory Results - last 24 hr 10/31/17 11/02/17 11/03/17 05:00 16:38 06:00 WBC 9.7 RBC 3.01 L Hgb 10.0 L D Hct 25.7 L 30.9 L MCV 102.8 H MCH 33.2 MCHC 32.3 RDW 16.4 H Plt Count 219 D MPV 10.5 Neutrophils % 76.9 Lymphocytes % 13.6 Monocytes % 8.5 Eosinophils % 0.5 Basophils % 0.5 Sodium Potassium Chloride Carbon Dioxide Anion Gap BUN Creatinine Creat Clearance w eGFR POC Glucometer [phone] Random Glucose Calcium Phosphorus Magnesium Total Bilirubin AST ALT Alkaline Phosphatase Total Protein Albumin Folate 1135 Folate Hemolysate 291.6 11/03/17 06:00 WBC RBC Hgb Hct MCV MCH MCHC RDW Plt Count MPV Neutrophils % Lymphocytes % Monocytes % Eosinophils % Basophils % Sodium 137 Potassium 4.4 Chloride 91 L Carbon Dioxide 37 H Anion Gap 9 BUN 25 H D Creatinine 0.7 D Creat Clearance w eGFR > 60 POC Glucometer Random Glucose 118 H D Calcium 8.8 Phosphorus 3.3 Magnesium 2.0 Total Bilirubin 0.6 D AST 13 L D ALT 16 Alkaline Phosphatase 78 Total Protein 8.1 D Albumin 2.7 L Folate Folate Hemolysate Imaging: - chest x-ray 11/03/17: ARDS pattern - chest x-ray 11/02/17: no change - chest x-ray 11/01/17: extensive opacification throughout with little significant changes. consistent with ARDS. - abdominal CT 10/31/17: Several small pancreatic head calcification suggestive of chronic calcific pancreatitis. no acute pancreatitis. Lungs b/l internstitial thickening with relative peripheral sparing. Noncardiogenic edema infx vs noninfectious pneumonitis, hemorrhage. Bibasilae bronchiectasis. Nonspecific mediastinal lymphadenopathy. Prominent atherosclerotic vascular calcifications. Mild chronic L1-L5 body compression fractures. osseous structures diffusely de-mineralized. - chest x-ray 10/31/17: Since 10/30/2017, the ARDS pattern has diminished minimally - chest x-ray 10/30/17: Since 10/29/2017, the diffuse airspace changes are again noted. This has the appearance of an ARDS pattern. Follow-up recommended. - chest x-ray 10/29/17: Since 10/28/2017, the diffuse airspace changes are again noted which could indicate ARDS. - Leg US 10/20/17: DVT noted. There is occlusive thrombosis within the common, deep and superficial femoral veins, as well as the popliteal and posterior tibial veins. These veins are incompressible, an additional sign of DVT. The greater saphenous vein is patent, however, the lesser saphenous vein is also thrombosed. - Abd US 10/18/17: Moderate to marked gallbladder contraction is noted which may be physiologic in nature versus secondary to chronic cholecystitis. If clinically indicated correlate with two-week follow-up sonography with optimal pre - exam fasting. Gallbladder contraction was also described on a previous ultrasound exam of 03/25/2013. No sonographic evidence of acute cholecystitis. There is no obvious evidence of cholelithiasis allowing for previously described gallbladder contraction. No definite biliary tract dilatation is seen. The partially visualized pancreas demonstrates no gross sonographic abnormality. However, on the 2012 ultrasound study dilatation of the main pancreatic duct was described with a 0.5 cm diameter. Given this apparent finding on the prior study additional evaluation utilizing MRI/MRCP is suggested when the patient's clinical condition permits (unless already performed at a different facility). - Echo 10/17/17: normal left ventricle with mild reduced systolic function, EF 45. RV normal. mild to moderate mitral valve thickening. moderate mitral regurgitation. mild tricuspid regurgitation. mild pulmonary HTN. mild arotic steclerosis. no aortic regurgitation. no pericardial effusion. Assessment/ Plan: 62yo M smoker with PMH of NIDDM, PUD, BPH admitted with respiratory failure, severe sepsis, CHF who had extensive right LE DVT s/p IVC filter 10/20/17 and s/p thrombectomy 10/24/17. Patient had increased respiratory distress and was placed on BIPAP, pulse ox 100% on bipap. # Hypoxic respiratory failure possibly from interstitial lung dz with pneumonitis, or CHF. etiology unknown. - on bipap. sometimes desaturates to low 90s on bipap - Albuterol/Ipratropium (Duoneb -) 1 amp NEB Q6H PRN SOB - Prednisone (Deltasone -) 40 mg PO DAILY SONAL - bibasilar crackles - diurese BID - LTAC referral pending insurance approval. - xanax standing order for anxiety - intubate? # NIDDM. A1C 7.4. Hypoglycemia resolved - diabetic diet - Insulin Aspart (Novolog Vial Sliding Scale -) 1 vial SQ ACHS SONAL - Insulin Detemir (Levemir Vial) 10 units SQ DAILY SONAL - discontinued. # RUQ abd pain likely secondary to coughing - U/S on 10/18 was negative - abd CT negative for acute pathology # thrombocytopenia - possibly due to sepsis - HIT antibody sent and is unequivocal. Level 0.473 (N: <0.4) likely falsely elevated. KAY negative- HIT ruled out. # RLE pain secondary to DVT s/p IV filter on 10/20/17 and thrombectomy on 10/24/17 - Acetaminophen (Tylenol -) 650 mg PO Q6H PRN fever/ pain - continue heparin # severe sepsis likely secondary to CAP - bp stable. not on pressors. - Azithromycin and Ceftriaxone 7 days completed on 10/24/17 - blood cultures and sputum culture negative # macrocytic anemia - continue to monitor # BPH - continue home med of Tamsulosin 0.4mg PO daily # FEN - F: PO - E: continue to monitor - N: diabetic diet #DVT prophylaxis - heparin drip
[2017-11-03] MEDS ORDERED: PT OWN MED DRAWER 7, Y5N ONE (09:08)
[2017-11-03] MEDS: PANTOPRAZOLE 40 MG TABLET (FP) PO SCH (09:10)
[2017-11-03] MEDS: predniSONE 20 MG TABLET (UD) PO SCH (09:10)
[2017-11-03] MEDS: NICOTINE 7 MG/24 HOURS TOPICAL PATCH TD SCH (09:10)
[2017-11-03] MEDS: LYTES/YERBA SANTA 240 ML BOTTLE MM SCH (09:10)
--- NOTE | 2017-11-03 12:27 | PN ---
Physical Exam: SUBJECTIVE: Patient seen and examined Patient is a 62 year old male who was BIBEMS for hypoxic respiratory failure eating food, off of pressers, but with RLE DVT without PE s/p IVC filter, thrombectomy, catheter directed heparin infusion, requiring bipap. The patient reports no new changes. No acute events overnight. OBJECTIVE: Vital Signs Period Temp Pulse Resp BP Sys/Sutton Pulse Ox Last 24 Hr 97.2 F-98 F 66-93 20-27 91-146/49-88 88-96 GENERAL: The patient is awake, alert, and fully oriented, in no acute distress. HEAD: Normal with no signs of trauma. EYES: sclera anicteric, conjunctiva clear. No ptosis. ENT: nares patent, oropharynx clear without exudates, moist mucous membranes. NECK: Trachea midline, full range of motion, supple. LUNGS: Breath sounds equal, Bibasilar rales and rhonchi noted on exam, no wheezes, no crackles, with accessory muscle use. HEART: Regular rate and rhythm, S1, S2 without murmur, rub or gallop. ABDOMEN: Soft, nontender, nondistended, normoactive bowel sounds, no guarding, no rebound, no hepatosplenomegaly, no masses. EXTREMITIES: 2+ pulses, warm, well-perfused,. NEUROLOGICAL: Normal speech, gait not observed. PSYCH: Normal mood, normal affect. SKIN: Warm, dry, normal turgor, no rashes or lesions noted Laboratory Results - last 24 hr 11/02/17 11/03/17 11/03/17 16:38 06:00 06:00 WBC 9.7 RBC 3.01 L Hgb 10.0 L D Hct 30.9 L MCV 102.8 H MCH 33.2 MCHC 32.3 RDW 16.4 H Plt Count 219 D MPV 10.5 Neutrophils % 76.9 Lymphocytes % 13.6 Monocytes % 8.5 Eosinophils % 0.5 Basophils % 0.5 PTT (Actin FS) 85.6 H D Sodium Potassium Chloride Carbon Dioxide Anion Gap BUN Creatinine Creat Clearance w eGFR POC Glucometer 179.60428 Random Glucose Calcium Phosphorus Magnesium Total Bilirubin AST ALT Alkaline Phosphatase Total Protein Albumin 11/03/17 06:00 WBC RBC Hgb Hct MCV MCH MCHC RDW Plt Count MPV Neutrophils % Lymphocytes % Monocytes % Eosinophils % Basophils % PTT (Actin FS) Sodium 137 Potassium 4.4 Chloride 91 L Carbon Dioxide 37 H Anion Gap 9 BUN 25 H D Creatinine 0.7 D Creat Clearance w eGFR > 60 POC Glucometer Random Glucose 118 H D Calcium 8.8 Phosphorus 3.3 Magnesium 2.0 Total Bilirubin 0.6 D AST 13 L D ALT 16 Alkaline Phosphatase 78 Total Protein 8.1 D Albumin 2.7 L Active Medications Generic Name Dose Route Start Last Admin Trade Name Freq PRN Reason Stop Dose Admin Acetaminophen 650 mg 10/19/17 22:58 11/02/17 22:14 Tylenol - PO 650 mg Q6H PRN Administration FEVER OR PAIN Alprazolam 0.25 mg 11/02/17 12:00 11/03/17 03:03 Xanax - PO 0.25 mg Q8H PRN Administration FOR ANXIETY Chlorhexidine Gluconate 1 applic 10/17/17 22:00 11/02/17 22:15 Hibiclens For Decolonization - TP 1 applic HS SONAL Administration Dextrose 25 gm 11/01/17 21:49 11/02/17 08:47 D50w (Vial) - IVPUSH 25 gm DAILY PRN Administration hypoglycemia Furosemide 20 mg 11/02/17 14:00 11/03/17 06:16 Lasix Injection - IVPB 20 mg BID@0600,1400 SONAL Administration Heparin Sodium (Porcine) 1,000 unit 10/20/17 17:59 10/26/17 12:54 Heparin - IVPUSH 1,000 unit PRN PRN Administration Heparin Heparin Sodium (Porcine) 5,000 unit 10/20/17 17:59 10/30/17 11:42 Heparin - IVPUSH 5,000 unit PRN PRN Administration Heparin HEPARIN SOD,PORK IN 0.45% NACL 25,000 units in 500 mls @ 20 mls/hr 10/20/17 18 :04 11/03/17 08:38 Heparin-1/2ns 25,000 Units/500 IVPB 1,100 units/hr TITR SONAL 22 mls/hr Protocol Titration 1,000 UNITS/HR Insulin Aspart 1 vial 10/17/17 16:30 11/03/17 11:22 Novolog Vial Sliding Scale - SQ Not Given ACHS [facility] Protocol Nicotine 7 mg 10/19/17 12:45 11/03/17 09:10 Nicoderm Patch - TD 7 mg DAILY SONAL Administration Nystatin 500,000 units 10/30/17 12:00 11/03/17 12:17 Nystatin Oral Suspension - PO 11/09/17 11:59 500,000 units Q6HPO SONAL Administration Pantoprazole Sodium 40 mg 10/25/17 10:00 11/03/17 09:10 Protonix - PO 40 mg DAILY SONAL Administration Prednisone 40 mg 10/24/17 10:00 11/03/17 09:10 Deltasone - PO 40 mg DAILY SONAL Administration Saliva Substitute 1 applic 11/02/17 15:45 11/03/17 09:10 Mouthkote Solution - MM 1 applic DAILY SONAL Administration ASSESSMENT/PLAN: Patient is a 62 year old male who was BIBEMS for hypoxic respiratory failure eating food, off of pressers, but with RLE DVT without PE s/p IVC filter, thrombectomy, catheter directed heparin infusion, requiring bipap. Neuro: #Nicotine Dependence: - Nicotine patch 7 MG daily #Anxiety -Will continue the patient on a standing order for xanax 0.25mg q8h given patient's continued anxiety and subsequent desaturations due to anxiety. CV: #Septic Shock vs. iatrogenic hypovolemic shock vs. cardiogenic shock: original presentation - Tachycardia of 105, Respiratory rate 26, Fever of 101, WBC of 11.7, Hypotension with SBP <90 with no response to IV fluids, and Lactic Acidosis of 3.6. Source unclear but likely PNA. Off pressers - Resolved #DVT: U/S positive for Right calf DVT, s/p thrombectomy - s/p IR direct infusion, doing well - Continue hep drip #Chest Pain: - EKG unchanged Pulm: #Acute Hypoxic Respiratory Failure: Legionalla and strep negative. Zosyn and Vancomycin given in ED. Patient denies any recent hospitalization or abx use. Original chest X-ray reveals bilateral multifocal inflammatory changes (ARDS) vs. congestive heart failure. given JVD and crackles it is likely the later. treated for CAP. ECHO showing mild mitral regurg, mild/mod tricuspid regurg, mild PHTN. CT demonstrating diffuse interstitial lung disease AND XRs evidencing occasional volume overload. We discussed with the family the possibility that the patient will require tracheostomy in the future given his continued ventilation requirements. The family will discuss amongst themselves and the patient regarding whether to proceed with tracheostomy or continue with continuous bipap and ltach placement and decided to proceed with intubation for possible tracheostomy. - Continue lasix 20mg BID as this seemed to help improve the patient's symptoms. - Continue Prednisone 40 daily - Patient intubated with an 8.0 ET tube 22cm at the lip. Propofol and versed were used as sedation. Post-intubation plain films has been ordered. - Patient to remained intubated over the weekend. - all cultures negative ID: likely ILD with GGO vs. infectious pattern. HIV, influenza, strep, legionella neg. BCx NGTD, sputum Cx NGTD. Completed Azithromycin and Ceftriaxone for suspected CAP. All cultures neg and ID tests neg including cryptococcal - ID recs appreciated Renal: - CTM - Avoid nephrotoxic medications Heme: #Macrocytic Anemia: Hemoglobin 9.2 with MCV 101. Ferritin 882 (likely reactive) -Hb stable Endo #NIDDM: -Patient is no longer having hypoglycemic episodes requiring D50 pushes -Will continue to monitor BGM and provided D50 pushes as needed. -ISS : #BPH -Patient on Tamsulosin 0.4mg daily GI: #Peptic Ulcer Disease: History of mesh according to family and had Endoscopy two months. Was given medications according to patients daughter and completed course. - on PPI FEN -Electrolytes Repleted as needed. -Diabetic diet while on HFNC PPX: - Hep drip - Protonix Disposition: Continued ICU care. LTAC placement. Visit type - Emergency Visit Emergency Visit: No - New Patient This patient is new to me today: No - Critical Care Critical Care patient: Yes Total Critical Care Time (in minutes): 35 Critical Care Statement: The care of this patient involved high complexity decision making to prevent further life threatening deterioration of the patient 's condition and/or to evaluate & treat vital organ system(s) failure or risk of failure. Procedures - Intubation Time of Intubation: 13:16 Intubation Method: orotracheal Blade used: Glidescope Tube Size (Fr): 8.0 Medications: Versed (And Propofol) Tube position @ lip (cm): 22 Tube position confirmed by: Direct visualization, CO2 detector, Chest x-ray, Breath sounds Breath Sounds after Intubation: equal Intubation Complications: no complications Post Intubation Xray: Yes
--- NOTE | 2017-11-03 12:42 | PN ---
Teaching Attending Note Name of Resident: Evans Marie ATTENDING PHYSICIAN STATEMENT I saw and evaluated the patient. I reviewed the resident's note and discussed the case with the resident. I agree with the resident's findings and plan as documented. SUBJECTIVE: Patient seen and examined in the ICU. Remains tachypneic on NIPPV support 100% FiO2. Long discussion with the patient and the family. They have agreed for intubation as the patient's WOB is steadily increasing and he is clinically not improving despite improving CXR findings. OBJECTIVE: Intake & Output 10/31/17 11/01/17 11/02/17 11/03/17 23:59 23:59 23:59 23:59 Intake Total 1744 857 852 376 Output Total 1900 1350 1200 600 Balance -156 -493 -348 -224 Weight 163 lb 6 oz 164 lb 3.2 oz 164 lb 164 lb 2 oz Last Vital Signs Temp Pulse Resp BP Pulse Ox 97.6 F 93 H 25 H 138/56 88 L 11/03/17 12:00 11/03/17 12:00 11/03/17 12:00 11/03/17 12:00 11/03/17 11:01 Active Medications Acetaminophen (Tylenol -) 650 mg PO Q6H PRN PRN Reason: FEVER OR PAIN Last Admin: 11/02/17 22:14 Dose: 650 mg Alprazolam (Xanax -) 0.25 mg PO Q8H PRN PRN Reason: FOR ANXIETY Last Admin: 11/03/17 03:03 Dose: 0.25 mg Chlorhexidine Gluconate (Hibiclens For Decolonization -) 1 applic TP HS SONAL Last Admin: 11/02/17 22:15 Dose: 1 applic Dextrose (D50w (Vial) -) 25 gm IVPUSH DAILY PRN PRN Reason: hypoglycemia Last Admin: 11/02/17 08:47 Dose: 25 gm Furosemide (Lasix Injection -) 20 mg IVPB BID@0600,1400 SONAL Last Admin: 11/03/17 06:16 Dose: 20 mg Heparin Sodium (Porcine) (Heparin -) 1,000 unit IVPUSH PRN PRN PRN Reason: Heparin Last Admin: 10/26/17 12:54 Dose: 1,000 unit Heparin Sodium (Porcine) (Heparin -) 5,000 unit IVPUSH PRN PRN PRN Reason: Heparin Last Admin: 10/30/17 11:42 Dose: 5,000 unit HEPARIN SOD,PORK IN 0.45% NACL (Heparin-1/2ns 25,000 Units/500) 25,000 units in 500 mls @ 20 mls/hr IVPB TITR SONAL; 1,000 UNITS/HR PRN Reason: Protocol Last Titration: 11/03/17 08:38 Dose: 1,100 units/hr, 22 mls/hr Insulin Aspart (Novolog Vial Sliding Scale -) 1 vial SQ ACHS SONAL PRN Reason: Protocol Last Admin: 11/03/17 11:22 Dose: Not Given Nicotine (Nicoderm Patch -) 7 mg TD DAILY SONAL Last Admin: 11/03/17 09:10 Dose: 7 mg Nystatin (Nystatin Oral Suspension -) 500,000 units PO Q6HPO [facility] Stop: 11/09/17 11:59 Last Admin: 11/03/17 12:17 Dose: 500,000 units Pantoprazole Sodium (Protonix -) 40 mg PO DAILY [facility] Last Admin: 11/03/17 09:10 Dose: 40 mg Prednisone (Deltasone -) 40 mg PO DAILY [facility] Last Admin: 11/03/17 09:10 Dose: 40 mg Saliva Substitute (Mouthkote Solution -) 1 applic MM DAILY SONAL Last Admin: 11/03/17 09:10 Dose: 1 applic Gen: tachypneic on BiPAP Heart: RRR Lung: basilar rales, rhonchi Abd: soft, nontender Ext: no edema Laboratory Results - last 24 hr 11/02/17 11/03/17 11/03/17 16:38 06:00 06:00 WBC 9.7 RBC 3.01 L Hgb 10.0 L D Hct 30.9 L MCV 102.8 H MCH 33.2 MCHC 32.3 RDW 16.4 H Plt Count 219 D MPV 10.5 Neutrophils % 76.9 Lymphocytes % 13.6 Monocytes % 8.5 Eosinophils % 0.5 Basophils % 0.5 PTT (Actin FS) 85.6 H D Sodium Potassium Chloride Carbon Dioxide Anion Gap BUN Creatinine Creat Clearance w eGFR POC Glucometer [id number] Random Glucose Calcium Phosphorus Magnesium Total Bilirubin AST ALT Alkaline Phosphatase Total Protein Albumin 11/03/17 06:00 WBC RBC Hgb Hct MCV MCH MCHC RDW Plt Count MPV Neutrophils % Lymphocytes % Monocytes % Eosinophils % Basophils % PTT (Actin FS) Sodium 137 Potassium 4.4 Chloride 91 L Carbon Dioxide 37 H Anion Gap 9 BUN 25 H D Creatinine 0.7 D Creat Clearance w eGFR > 60 POC Glucometer Random Glucose 118 H D Calcium 8.8 Phosphorus 3.3 Magnesium 2.0 Total Bilirubin 0.6 D AST 13 L D ALT 16 Alkaline Phosphatase 78 Total Protein 8.1 D Albumin 2.7 L Problem List - Problems (1) Acute respiratory failure with hypoxia Code(s): J96.01 - ACUTE RESPIRATORY FAILURE WITH HYPOXIA (2) Pneumonia Code(s): J18.9 - PNEUMONIA, UNSPECIFIED ORGANISM (3) Diabetes Code(s): E11.9 - TYPE 2 DIABETES MELLITUS WITHOUT COMPLICATIONS ASSESSMENT AND PLAN: Acute Hypoxic Respiratory Failure Pneumonia Sepsis Interstitial Lung Disease Acute Diastolic Heart Failure improved Acute Kidney Injury improving Lactic Acidosis resolved DM RLE DVT - antibiotics completed - continue prednisone - taper FiO2 to keep SpO2 >90% - lasix as needed - monitor urine output, creatinine - monitor CXR - AC - continue ICU monitoring for tenuous respiratory status - For intubation - Poor overall prognosis Dr Souza Critical care time spent in reviewing chart, evaluating patient and formulating plan 35 min
[2017-11-03] MEDS ORDERED: PROPOFOL 20 ML ONE (12:50)
[2017-11-03] MEDS ORDERED: MIDAZOLAM HCL 5 MG/1 ML Single Dose Vial ONE (12:50)
[2017-11-03] MEDS ORDERED: PROPOFOL 1,000,000 MCG/100 ML VIAL ONE (12:52)
[2017-11-03] MEDS ORDERED: PROPOFOL 200 MG/20 ML VIAL IVPUSH ONE (13:38)
[2017-11-03] MEDS ORDERED: MIDAZOLAM HCL 2 MG/2 ML SINGLE DOSE VIAL IVPUSH ONE (13:38)
[2017-11-03] MEDS ORDERED: PROPOFOL 1,000,000 MCG/100 ML VIAL IVPB SCH (13:45)
[2017-11-03 14:19] LABS: ARTERIAL BLOOD GAS pH 7.31 (7.35-7.45)
[2017-11-03 14:22] LABS: ALLENS TEST POSITIVE
[2017-11-03 14:26] LABS: ARTERIAL BLOOD GAS PCO2 71.8 mmHg (35-45)
[2017-11-03] MEDS ORDERED: MIDAZOLAM HCL 2 MG/2 ML SINGLE DOSE VIAL IVPUSH PRN (15:43)
[2017-11-03] MEDS ORDERED: FENTANYL INJECTION 500 MCG in DEXTROSE 5%-WATER - 90 ML IVPB SCH (15:45)
[2017-11-03] MEDS ORDERED: fentaNYL CITRATE 250 MCG/5 ML VIAL ONE ×3 (15:53→23:45)
[2017-11-03] MEDS: FENTANYL INJECTION 500 MCG in SODIUM CHLORIDE 90 ML IVPB SCH ×2 (16:00→20:57)
[2017-11-03] MEDS ORDERED: INSULIN (NOVOLOG) ASPART 100 UNITS/ML 10ML VIAL ONE (17:10)
--- NOTE | 2017-11-03 19:13 | PN ---
Teaching Attending Note Name of Resident: Dylon Reeves ATTENDING PHYSICIAN STATEMENT Time of evaluation: 10:20 Am I saw and evaluated the patient. I reviewed the resident's note and discussed the case with the resident. I agree with the resident's findings and plan as documented. SUBJECTIVE: Patient seen and examined, was on Bipap when seen, overall unchanged. OBJECTIVE: Vital Signs Period Temp Pulse Resp BP Sys/Sutton Pulse Ox Last 24 Hr 97.2 F-98 F 66-96 16-30 91-145/49-88 88-100 Intake & Output 10/31/17 11/01/17 11/02/17 11/03/17 23:59 23:59 23:59 23:59 Intake Total 1744 857 852 704.3 Output Total 1900 1350 1200 600 Balance -156 -493 -348 104.3 Weight 163 lb 6 oz 164 lb 3.2 oz 164 lb 164 lb 2 oz General: bipap, tachypneic, use of accessory muscles of breathing Abdomen: Soft, mild superficial RUQ tenderness unchanged Extremities: almost resolved RLE edema chest: bibasilar rales Home Medication List Medication Instructions Recorded Confirmed Type Glipizide [Glucotrol Xl] 0 mg PO ASDIR 10/17/17 10/17/17 History Metformin HCl 0 mg PO ASDIR 10/17/17 10/17/17 History Tamsulosin HCl 0.4 mg PO DAILY 10/17/17 10/17/17 History Active Medications Generic Name Dose Route Start Last Admin Trade Name Freq PRN Reason Stop Dose Admin Acetaminophen 650 mg 10/19/17 22:58 11/02/17 22:14 Tylenol - PO 650 mg Q6H PRN Administration FEVER OR PAIN Chlorhexidine Gluconate 1 applic 10/17/17 22:00 11/02/17 22:15 Hibiclens For Decolonization - TP 1 applic HS SONAL Administration Dextrose 25 gm 11/01/17 21:49 11/02/17 08:47 D50w (Vial) - IVPUSH 25 gm DAILY PRN Administration hypoglycemia Heparin Sodium (Porcine) 1,000 unit 10/20/17 17:59 10/26/17 12:54 Heparin - IVPUSH 1,000 unit PRN PRN Administration Heparin Heparin Sodium (Porcine) 5,000 unit 10/20/17 17:59 10/30/17 11:42 Heparin - IVPUSH 5,000 unit PRN PRN Administration Heparin HEPARIN SOD,PORK IN 0.45% NACL 25,000 units in 500 mls @ 20 mls/hr 10/20/17 18 :04 11/03/17 08:38 Heparin-1/2ns 25,000 Units/500 IVPB 1,100 units/hr TITR SONAL 22 mls/hr Protocol Titration 1,000 UNITS/HR Fentanyl 500 mcg/ Sodium 100 mls @ 10 mls/hr 11/03/17 16:00 11/03/17 16:00 Chloride IVPB 10 mls/hr TITR SONAL Administration Protocol 50 MCG/HR Insulin Aspart 1 vial 10/17/17 16:30 11/03/17 17:12 Novolog Vial Sliding Scale - SQ 2 units ACHS SONAL Administration Protocol Midazolam HCl 2 mg 11/03/17 15:43 11/03/17 16:34 Versed - IVPUSH 2 mg Q8H PRN Administration AGITATION Nicotine 7 mg 10/19/17 12:45 11/03/17 09:10 Nicoderm Patch - TD 7 mg DAILY SONAL Administration Nystatin 500,000 units 10/30/17 12:00 11/03/17 17:47 Nystatin Oral Suspension - PO 11/09/17 11:59 Not Given Q6HPO SONAL Pantoprazole Sodium 40 mg 10/25/17 10:00 11/03/17 09:10 Protonix - PO 40 mg DAILY SONAL Administration Prednisone 40 mg 10/24/17 10:00 11/03/17 09:10 Deltasone - PO 40 mg DAILY SONAL Administration Saliva Substitute 1 applic 11/02/17 15:45 11/03/17 09:10 Mouthkote Solution - MM 1 applic DAILY SONAL Administration Laboratory Results - last 24 hr 11/03/17 11/03/17 11/03/17 06:00 06:00 06:00 WBC 9.7 RBC 3.01 L Hgb 10.0 L D Hct 30.9 L MCV 102.8 H MCH 33.2 MCHC 32.3 RDW 16.4 H Plt Count 219 D MPV 10.5 Neutrophils % 76.9 Lymphocytes % 13.6 Monocytes % 8.5 Eosinophils % 0.5 Basophils % 0.5 PTT (Actin FS) 85.6 H D Puncture Site ABG pH ABG pCO2 at Pt Temp ABG pO2 at Pt Temp ABG HCO3 ABG O2 Sat (Measured) ABG O2 Content ABG Base Excess Dionte Test O2 Delivery Device Oxygen Flow Rate Vent Rate PEEP Pressure Support Vent Sodium 137 Potassium 4.4 Chloride 91 L Carbon Dioxide 37 H Anion Gap 9 BUN 25 H D Creatinine 0.7 D Creat Clearance w eGFR > 60 Random Glucose 118 H D Calcium 8.8 Phosphorus 3.3 Magnesium 2.0 Total Bilirubin 0.6 D AST 13 L D ALT 16 Alkaline Phosphatase 78 Total Protein 8.1 D Albumin 2.7 L 11/03/17 14:10 WBC RBC Hgb Hct MCV MCH MCHC RDW Plt Count MPV Neutrophils % Lymphocytes % Monocytes % Eosinophils % Basophils % PTT (Actin FS) Puncture Site Right radial ABG pH 7.31 L ABG pCO2 at Pt Temp 71.8 H* D ABG pO2 at Pt Temp 208.0 H* ABG HCO3 35.3 H ABG O2 Sat (Measured) 100.0 H* ABG O2 Content 12.6 L ABG Base Excess 8.0 H Dionte Test Positive O2 Delivery Device Vol/ac Oxygen Flow Rate 100% Vent Rate 16 PEEP 7.0 Pressure Support Vent 400 Sodium Potassium Chloride Carbon Dioxide Anion Gap BUN Creatinine Creat Clearance w eGFR Random Glucose Calcium Phosphorus Magnesium Total Bilirubin AST ALT Alkaline Phosphatase Total Protein Albumin Microbiology 10/21/17 06:00 Serum Cryptococcal Antigen - Final 10/19/17 19:30 Sputum - Expectorated Gram Stain - Final 10/19/17 19:30 Sputum - Expectorated Sputum Culture - Final NORMAL RESPIRATORY TOYIN 10/17/17 10:10 Blood - Peripheral Venous Blood Culture - Final NO GROWTH AFTER 5 DAYS INCUBATION 10/17/17 10:10 Blood - Peripheral Venous Blood Culture - Final NO GROWTH AFTER 5 DAYS INCUBATION 10/17/17 13:57 Urine - Urine Clean Catch Urine Culture - Final NO GROWTH OBTAINED 10/17/17 13:57 Urine For Antigen Detection Legionella Antigen - Final 10/17/17 13:57 Urine For Antigen Detection Streptococcus pneumoniae Antigen (M - Final 10/17/17 10:25 Nasopharyngeal Swab Influenza Types A,B Antigen ([facility]) - Final 10/17/17 10:25 Nasopharyngeal Swab - Final ASSESSMENT AND PLAN: 62 yo M active smoker, pMHx of NIDDM, PUD, BPH admitted with acute hypoxic respiratory failure, and extensive RLE DVT -Acute hypoxic respiratory failure, suspect from ?ILD with pneumonitis -Extensive RLE Acute DVT, s/p IVC filter 10/20, thrombectmy 10/24 - Acute diastolic heart failure -Sepsis, likely from PNA -Lactic acidosis, from sepsis vs increased work of breathing, rsolved -?MIRLANDE from sepsis, resolved -Thrombocytopenia -Elevated INR -Chest wall and right sided abdominal pain -NIDDM -PUD -BPH Plan: intubated today. Continue prednisone. ?ILD with pneumonitis, unclear etiology, Heparin drip. Hematology input noted, SFA for HIT neg, discuss about starting NOAC if no procedure planned. CT A/P noted, no acute concerns. Platelets improved. replete lytes prn. Ac 7.4, hold oral hypoglycemics. levemir, ISS, diabetic diet. Continue flomax. Nicotine patch MICU monitoring. DIscussed with social work, patient accepted to [facility]. ?tracheostomy, will follow up. ?transfer to [place] for additional w/u. Discussed with ICU team and family. Plan discussed with patient and daughter at bedside in detail, all questions answered. Total critical care time spent 35 min.
[2017-11-03] MEDS: CHLORHEXIDINE GLUCONATE 4% CLEANSER FOR DECOLONIZATION TP SCH (21:09)
[2017-11-03] MEDS: MINERAL OIL/PETROLATUM,WHITE 3.5 GM TUBE OU SCH (23:00)
[2017-11-04] MEDS: FENTANYL INJECTION 500 MCG in SODIUM CHLORIDE 90 ML IVPB SCH ×4 (01:00→17:41)
[2017-11-04] MEDS ORDERED: fentaNYL CITRATE 250 MCG/5 ML VIAL ONE ×2 (04:48→09:24)
[2017-11-04] MEDS: HEPARIN SOD,PORK IN 0.45% NACL 25,000 UNITS/500 ML INFUS.BAG IVPB SCH (04:53)
[2017-11-04] MEDS ORDERED: HEMOQUE TEST 1 EACH EACH ONE (05:11)
[2017-11-04] MEDS: NYSTATIN 500,000 UNITS/5 ML SUSPENSION PO SCH ×4 (05:56→19:01)
[2017-11-04] MEDS: INSULIN SLIDING SCALE (NOVOLOG) 1 VIAL SQ SCH ×4 (05:59→17:43)
[2017-11-04 06:22] LABS: BASO % 0.2 % (0-2.0); EOS % 0.8 % (0-4.5); HEMATOCRIT 27.1 % (35.4-49); HEMOGLOBIN 8.7 GM/dL (11.7-16.9); LYMPH % 13.6 % (8-40); MCH 32.8 pg (25.7-33.7); MCHC 32.1 g/dl (32.0-35.9); MONO % 9.9 % (3.8-10.2); NEUT % 75.5 % (42.8-82.8); PLATELET COUNT 183 K/MM3 (134-434); RBC 2.65 M/mm3 (4.00-5.60); RDW 16.6 % (11.9-15.9); WHITE BLOOD COUNT 7.5 K/mm3 (4.0-10.0)
[2017-11-04 06:58] LABS: ALBUMIN 2.5 g/dl (3.4-5.0); ANION GAP 5 (8-16); BLOOD UREA NITROGEN 40 mg/dL (7-18); CALCIUM 8.1 mg/dL (8.5-10.1); CHLORIDE 92 mmol/L (98-107); CO2 37 mmol/L (21-32); MAGNESIUM 2.4 mg/dL (1.8-2.4); POTASSIUM 4.4 mmol/L (3.5-5.1); SODIUM 134 mmol/L (136-145)
[2017-11-04 07:01] LABS: ALK PHOS 60 U/L (45-117); BILIRUBIN,TOTAL 0.4 mg/dL (0.2-1.0); GLUCOSE,RANDOM 231 mg/dL (74-106); SGOT/AST 8 U/L (15-37); SGPT/ALT 13 U/L (12-78); TOT PROT 6.9 g/dl (6.4-8.2)
[2017-11-04] MEDS ORDERED: PROPOFOL 1,000,000 MCG/100 ML VIAL ONE (08:42)
[2017-11-04] MEDS: predniSONE 20 MG TABLET (UD) PO SCH (09:34)
[2017-11-04] MEDS: LYTES/YERBA SANTA 240 ML BOTTLE MM SCH (09:37)
[2017-11-04] MEDS ORDERED: PT OWN MED DRAWER 7, Y5N ONE (09:50)
[2017-11-04] MEDS: NICOTINE 7 MG/24 HOURS TOPICAL PATCH TD SCH (09:51)
--- NOTE | 2017-11-04 09:52 | PN ---
Progress Note (short form) - Note Progress Note: Patient seen and examined in the ICU. Intubated and sedated. AC Mode of vent. 70% FiO2 / 7 PEEP. No pressors CXR: No gross OBJECTIVE: Intake & Output 11/01/17 11/02/17 11/03/17 11/04/17 23:59 23:59 23:59 23:59 Intake Total 857 852 704.3 1124 Output Total 1350 1200 600 Balance -493 -348 104.3 1124 Weight 164 lb 3.2 oz 164 lb 164 lb 2 oz 157 lb 1 oz Last Vital Signs Temp Pulse Resp BP Pulse Ox 97.8 F 82 34 H 140/64 92 L 11/04/17 06:00 11/04/17 08:00 11/04/17 09:33 11/04/17 08:00 11/04/17 09:00 Active Medications Acetaminophen (Tylenol -) 650 mg PO Q6H PRN PRN Reason: FEVER OR PAIN Last Admin: 11/02/17 22:14 Dose: 650 mg Artificial Tears (Artificial Tears Ointment -) 1 applic OU HS SONAL Last Admin: 11/03/17 23:00 Dose: 1 applic Chlorhexidine Gluconate (Hibiclens For Decolonization -) 1 applic TP HS SONAL Last Admin: 11/03/17 21:09 Dose: 1 applic Dextrose (D50w (Vial) -) 25 gm IVPUSH DAILY PRN PRN Reason: hypoglycemia Last Admin: 11/02/17 08:47 Dose: 25 gm Heparin Sodium (Porcine) (Heparin -) 1,000 unit IVPUSH PRN PRN PRN Reason: Heparin Last Admin: 10/26/17 12:54 Dose: 1,000 unit Heparin Sodium (Porcine) (Heparin -) 5,000 unit IVPUSH PRN PRN PRN Reason: Heparin Last Admin: 10/30/17 11:42 Dose: 5,000 unit HEPARIN SOD,PORK IN 0.45% NACL (Heparin-1/2ns 25,000 Units/500) 25,000 units in 500 mls @ 20 mls/hr IVPB TITR SONAL; 1,000 UNITS/HR PRN Reason: Protocol Last Titration: 11/04/17 08:25 Dose: 1,050 units/hr, 21 mls/hr Fentanyl 500 mcg/ Sodium (Chloride) 100 mls @ 10 mls/hr IVPB TITR SONAL; 50 MCG/ HR PRN Reason: Protocol Last Admin: 11/04/17 09:38 Dose: 5 mls/hr Insulin Aspart (Novolog Vial Sliding Scale -) 1 vial SQ ACHS SONAL PRN Reason: Protocol Last Admin: 11/04/17 05:59 Dose: 4 units Midazolam HCl (Versed -) 2 mg IVPUSH Q8H PRN PRN Reason: AGITATION Last Admin: 11/03/17 16:34 Dose: 2 mg Nicotine (Nicoderm Patch -) 7 mg TD DAILY SONAL Last Admin: 11/04/17 09:51 Dose: 7 mg Nystatin (Nystatin Oral Suspension -) 500,000 units PO Q6HPO [facility] Stop: 11/09/17 11:59 Last Admin: 11/04/17 05:56 Dose: 500,000 units Pantoprazole Sodium (Protonix -) 40 mg PO DAILY [facility] Last Admin: 11/03/17 09:10 Dose: 40 mg Prednisone (Deltasone -) 40 mg PO DAILY [facility] Last Admin: 11/04/17 09:34 Dose: 40 mg Saliva Substitute (Mouthkote Solution -) 1 applic MM DAILY [facility] Last Admin: 11/04/17 09:37 Dose: 1 applic Gen: Intubated and sedated Heart: RRR Lung: basilar rhonchi Abd: soft, nontender Ext: no edema Laboratory Results - last 24 hr 11/03/17 11/04/17 11/04/17 14:10 05:50 05:50 WBC 7.5 RBC 2.65 L Hgb 8.7 L D Hct 27.1 L MCV 102.0 H MCH 32.8 MCHC 32.1 RDW 16.6 H Plt Count 183 MPV 10.0 Neutrophils % 75.5 Lymphocytes % 13.6 Monocytes % 9.9 Eosinophils % 0.8 Basophils % 0.2 PTT (Actin FS) 85.3 H Puncture Site Right radial ABG pH 7.31 L ABG pCO2 at Pt Temp 71.8 H* D ABG pO2 at Pt Temp 208.0 H* ABG HCO3 35.3 H ABG O2 Sat (Measured) 100.0 H* ABG O2 Content 12.6 L ABG Base Excess 8.0 H Dionte Test Positive O2 Delivery Device Vol/ac Oxygen Flow Rate 100% Vent Rate 16 PEEP 7.0 Pressure Support Vent 400 Sodium Potassium Chloride Carbon Dioxide Anion Gap BUN Creatinine Creat Clearance w eGFR Random Glucose Calcium Phosphorus Magnesium Total Bilirubin AST ALT Alkaline Phosphatase Total Protein Albumin 11/04/17 05:50 WBC RBC Hgb Hct MCV MCH MCHC RDW Plt Count MPV Neutrophils % Lymphocytes % Monocytes % Eosinophils % Basophils % PTT (Actin FS) Puncture Site ABG pH ABG pCO2 at Pt Temp ABG pO2 at Pt Temp ABG HCO3 ABG O2 Sat (Measured) ABG O2 Content ABG Base Excess Dionte Test O2 Delivery Device Oxygen Flow Rate Vent Rate PEEP Pressure Support Vent Sodium 134 L Potassium 4.4 Chloride 92 L Carbon Dioxide 37 H Anion Gap 5 L BUN 40 H D Creatinine 1.0 D Creat Clearance w eGFR > 60 Random Glucose 231 H D Calcium 8.1 L Phosphorus 4.0 D Magnesium 2.4 Total Bilirubin 0.4 D AST 8 L D ALT 13 Alkaline Phosphatase 60 D Total Protein 6.9 Albumin 2.5 L Problem List - Problems (1) Acute respiratory failure with hypoxia Code(s): J96.01 - ACUTE RESPIRATORY FAILURE WITH HYPOXIA (2) Pneumonia Code(s): J18.9 - PNEUMONIA, UNSPECIFIED ORGANISM (3) Diabetes Code(s): E11.9 - TYPE 2 DIABETES MELLITUS WITHOUT COMPLICATIONS ASSESSMENT AND PLAN: Acute Hypoxic Respiratory Failure Pneumonia Sepsis Interstitial Lung Disease Acute Diastolic Heart Failure improved Acute Kidney Injury improving Lactic Acidosis resolved DM RLE DVT - antibiotics completed - continue prednisone - taper FiO2 to keep SpO2 >90% - lasix as needed - monitor urine output, creatinine - monitor CXR - AC - Anticipate Trach early next week Dr Souza Critical care time spent in reviewing chart, evaluating patient and formulating plan 35 min
[2017-11-04] MEDS: PROPOFOL 1,000,000 MCG/100 ML VIAL IVPB SCH (10:00)
[2017-11-04] MEDS: PANTOPRAZOLE SODIUM 40 MG VIAL IVPUSH SCH (12:19)
--- NOTE | 2017-11-04 17:20 | PN ---
Teaching Attending Note Name of Resident: . ATTENDING PHYSICIAN STATEMENT Time of evaluation: 9;10 AM I saw and evaluated the patient. I reviewed the resident's note and discussed the case with the resident. I agree with the resident's findings and plan as documented. SUBJECTIVE: Patient seen and examined. awake, intubated, no pain or new complaints. OBJECTIVE: Vital Signs Period Temp Pulse Resp BP Sys/Sutton Pulse Ox Last 24 Hr 97.8 F-98 F 78-95 18-34 92-155/47-64 91-100 Intake & Output 11/01/17 11/02/17 11/03/17 11/04/17 23:59 23:59 23:59 23:59 Intake Total 857 852 704.3 1124 Output Total 1350 1200 600 Balance -493 -348 104.3 1124 Weight 164 lb 3.2 oz 164 lb 164 lb 2 oz 157 lb 1 oz General: sitting in bed, intubated, awake CVS;S1S2 regular Chest: bibasilar rales Abdomen: soft, NT, Nd, positive bowel sounds extremities: almost resolved RLE edema Home Medication List Medication Instructions Recorded Confirmed Type Glipizide [Glucotrol Xl] 0 mg PO ASDIR 10/17/17 10/17/17 History Metformin HCl 0 mg PO ASDIR 10/17/17 10/17/17 History Tamsulosin HCl 0.4 mg PO DAILY 10/17/17 10/17/17 History Active Medications Generic Name Dose Route Start Last Admin Trade Name Freq PRN Reason Stop Dose Admin Acetaminophen 650 mg 10/19/17 22:58 11/02/17 22:14 Tylenol - PO 650 mg Q6H PRN Administration FEVER OR PAIN Artificial Tears 1 applic 11/03/17 22:00 11/03/17 23:00 Artificial Tears Ointment - OU 1 applic HS SONAL Administration Chlorhexidine Gluconate 1 applic 10/17/17 22:00 11/03/17 21:09 Hibiclens For Decolonization - TP 1 applic HS SONAL Administration Dextrose 25 gm 11/01/17 21:49 11/02/17 08:47 D50w (Vial) - IVPUSH 25 gm DAILY PRN Administration hypoglycemia Heparin Sodium (Porcine) 1,000 unit 10/20/17 17:59 10/26/17 12:54 Heparin - IVPUSH 1,000 unit PRN PRN Administration Heparin Heparin Sodium (Porcine) 5,000 unit 10/20/17 17:59 10/30/17 11:42 Heparin - IVPUSH 5,000 unit PRN PRN Administration Heparin HEPARIN SOD,PORK IN 0.45% NACL 25,000 units in 500 mls @ 20 mls/hr 10/20/17 18 :04 11/04/17 08:25 Heparin-1/2ns 25,000 Units/500 IVPB 1,050 units/hr TITR SONAL 21 mls/hr Protocol Titration 1,000 UNITS/HR Fentanyl 500 mcg/ Sodium 100 mls @ 10 mls/hr 11/03/17 16:00 11/04/17 09:38 Chloride IVPB 5 mls/hr TITR SONAL Administration Protocol 50 MCG/HR Insulin Aspart 1 vial 10/17/17 16:30 11/04/17 12:32 Novolog Vial Sliding Scale - SQ 8 units ACHS SONAL Administration Protocol Midazolam HCl 2 mg 11/03/17 15:43 11/03/17 16:34 Versed - IVPUSH 2 mg Q8H PRN Administration AGITATION Nicotine 7 mg 10/19/17 12:45 11/04/17 09:51 Nicoderm Patch - TD 7 mg DAILY SONAL Administration Nystatin 500,000 units 10/30/17 12:00 11/04/17 12:19 Nystatin Oral Suspension - PO 11/09/17 11:59 500,000 units Q6HPO SONLA Administration Pantoprazole Sodium 40 mg 11/04/17 10:15 11/04/17 12:19 Protonix Iv IVPUSH 40 mg DAILY SONAL Administration Prednisone 40 mg 10/24/17 10:00 11/04/17 09:34 Deltasone - PO 40 mg DAILY SONAL Administration Saliva Substitute 1 applic 11/02/17 15:45 11/04/17 09:37 Mouthkote Solution - MM 1 applic DAILY SONAL Administration Laboratory Results - last 24 hr 11/04/17 11/04/17 11/04/17 05:50 05:50 05:50 WBC 7.5 RBC 2.65 L Hgb 8.7 L D Hct 27.1 L MCV 102.0 H MCH 32.8 MCHC 32.1 RDW 16.6 H Plt Count 183 MPV 10.0 Neutrophils % 75.5 Lymphocytes % 13.6 Monocytes % 9.9 Eosinophils % 0.8 Basophils % 0.2 PTT (Actin FS) 85.3 H Sodium 134 L Potassium 4.4 Chloride 92 L Carbon Dioxide 37 H Anion Gap 5 L BUN 40 H D Creatinine 1.0 D Creat Clearance w eGFR > 60 Random Glucose 231 H D Calcium 8.1 L Phosphorus 4.0 D Magnesium 2.4 Total Bilirubin 0.4 D AST 8 L D ALT 13 Alkaline Phosphatase 60 D Total Protein 6.9 Albumin 2.5 L Microbiology 10/21/17 06:00 Serum Cryptococcal Antigen - Final 10/19/17 19:30 Sputum - Expectorated Gram Stain - Final 10/19/17 19:30 Sputum - Expectorated Sputum Culture - Final NORMAL RESPIRATORY TOYIN 10/17/17 10:10 Blood - Peripheral Venous Blood Culture - Final NO GROWTH AFTER 5 DAYS INCUBATION 10/17/17 10:10 Blood - Peripheral Venous Blood Culture - Final NO GROWTH AFTER 5 DAYS INCUBATION 10/17/17 13:57 Urine - Urine Clean Catch Urine Culture - Final NO GROWTH OBTAINED 10/17/17 13:57 Urine For Antigen Detection Legionella Antigen - Final 10/17/17 13:57 Urine For Antigen Detection Streptococcus pneumoniae Antigen (M - Final 10/17/17 10:25 Nasopharyngeal Swab Influenza Types A,B Antigen ([facility]) - Final 10/17/17 10:25 Nasopharyngeal Swab - Final ASSESSMENT AND PLAN: 62 yo M active smoker, pMHx of NIDDM, PUD, BPH admitted with acute hypoxic respiratory failure, and extensive RLE DVT -Acute hypoxic respiratory failure, suspect from ?ILD with pneumonitis -Extensive RLE Acute DVT, s/p IVC filter 10/20, thrombectmy 10/24 - Acute diastolic heart failure -Sepsis, likely from PNA -Lactic acidosis, from sepsis vs increased work of breathing, rsolved -?MIRLANDE from sepsis, resolved -Thrombocytopenia -Elevated INR -Chest wall and right sided abdominal pain -NIDDM -PUD -BPH Plan: intubated 11/03 Continue prednisone. ?ILD with pneumonitis, unclear etiology, Heparin drip. Hematology input noted, SFA for HIT neg, discuss about starting NOAC if no procedure planned. CT A/P noted, no acute concerns. Platelets improved. replete lytes prn. Ac 7.4, hold oral hypoglycemics. levemir, ISS, diabetic diet. Continue flomax. Nicotine patch MICU monitoring. Plan for trach next week. Discussed with Curriculum Developer. Total critical care time spent 35 min.
[2017-11-05 06:00] LABS: HEMATOCRIT 26.8 % (35.4-49); HEMOGLOBIN 8.6 GM/dL (11.7-16.9); MCH 32.7 pg (25.7-33.7); MCHC 32.1 g/dl (32.0-35.9); MEAN PLT VOLUME 10.3 fl (7.5-11.1); PLATELET COUNT 179 K/MM3 (134-434); RBC 2.62 M/mm3 (4.00-5.60); RDW 16.3 % (11.9-15.9); WHITE BLOOD COUNT 9.9 K/mm3 (4.0-10.0)
[2017-11-05 06:31] LABS: ALBUMIN 2.5 g/dl (3.4-5.0); ALK PHOS 62 U/L (45-117); ANION GAP 5 (8-16); BILIRUBIN,TOTAL 0.3 mg/dL (0.2-1.0); BLOOD UREA NITROGEN 28 mg/dL (7-18); CALCIUM 8.2 mg/dL (8.5-10.1); CHLORIDE 94 mmol/L (98-107); CO2 40 mmol/L (21-32); CREATININE 0.7 mg/dL (0.7-1.3); GLUCOSE,RANDOM 179 mg/dL (74-106); POTASSIUM 4.3 mmol/L (3.5-5.1); SGOT/AST 9 U/L (15-37); SGPT/ALT 13 U/L (12-78); SODIUM 139 mmol/L (136-145)
[2017-11-05] MEDS: NYSTATIN 500,000 UNITS/5 ML SUSPENSION PO SCH ×4 (06:55→17:47)
[2017-11-05] MEDS: INSULIN SLIDING SCALE (NOVOLOG) 1 VIAL SQ SCH ×5 (06:56→22:23)
[2017-11-05] MEDS: HEPARIN SOD,PORK IN 0.45% NACL 25,000 UNITS/500 ML INFUS.BAG IVPB SCH (07:02)
[2017-11-05] MEDS ORDERED: PT OWN MED DRAWER 7, Y5N ONE (09:44)
[2017-11-05] MEDS ORDERED: fentaNYL CITRATE 250 MCG/5 ML VIAL ONE ×2 (09:45→20:32)
--- NOTE | 2017-11-05 09:45 | PN ---
Progress Note (short form) - Note Progress Note: Patient seen and examined in the ICU. Intubated and sedated. AC Mode of vent. Remains on 70% FiO2 / 7 PEEP. No pressors CXR: slightly better aeration OBJECTIVE: Intake & Output 11/02/17 11/03/17 11/04/17 11/05/17 23:59 23:59 23:59 23:59 Intake Total 852 704.3 2156 1056 Output Total 1200 600 400 500 Balance -348 104.3 1756 556 Weight 164 lb 164 lb 2 oz 157 lb 1 oz 156 lb 15.506 oz Last Vital Signs Temp Pulse Resp BP Pulse Ox 98 F 82 24 96/52 95 11/05/17 09:00 11/05/17 09:00 11/05/17 09:00 11/05/17 09:00 11/05/17 09:00 Active Medications Acetaminophen (Tylenol -) 650 mg PO Q6H PRN PRN Reason: FEVER OR PAIN Last Admin: 11/02/17 22:14 Dose: 650 mg Artificial Tears (Artificial Tears Ointment -) 1 applic OU HS SONAL Last Admin: 11/05/17 00:00 Dose: 1 applic Chlorhexidine Gluconate (Hibiclens For Decolonization -) 1 applic TP HS SONAL Last Admin: 11/05/17 00:00 Dose: 1 applic Dextrose (D50w (Vial) -) 25 gm IVPUSH DAILY PRN PRN Reason: hypoglycemia Last Admin: 11/02/17 08:47 Dose: 25 gm Heparin Sodium (Porcine) (Heparin -) 1,000 unit IVPUSH PRN PRN PRN Reason: Heparin Last Admin: 10/26/17 12:54 Dose: 1,000 unit Heparin Sodium (Porcine) (Heparin -) 5,000 unit IVPUSH PRN PRN PRN Reason: Heparin Last Admin: 10/30/17 11:42 Dose: 5,000 unit HEPARIN SOD,PORK IN 0.45% NACL (Heparin-1/2ns 25,000 Units/500) 25,000 units in 500 mls @ 20 mls/hr IVPB TITR SONAL; 1,000 UNITS/HR PRN Reason: Protocol Last Admin: 11/05/17 07:02 Dose: 1,050 units/hr, 21 mls/hr Fentanyl 500 mcg/ Sodium (Chloride) 100 mls @ 10 mls/hr IVPB TITR SONAL; 50 MCG/ HR PRN Reason: Protocol Last Admin: 11/04/17 17:41 Dose: 5 mls/hr Propofol (Diprivan -) 1,000,000 mcg in 100 mls @ 4.275 mls/hr IVPB TITR SONAL; 10 MCG/KG/MIN PRN Reason: Protocol Last Admin: 11/04/17 10:00 Dose: 10 mcg/kg/min, 4.275 mls/hr Insulin Aspart (Novolog Vial Sliding Scale -) 1 vial SQ ACHS SONAL PRN Reason: Protocol Last Admin: 11/05/17 06:56 Dose: 4 units Midazolam HCl (Versed -) 2 mg IVPUSH Q8H PRN PRN Reason: AGITATION Last Admin: 11/03/17 16:34 Dose: 2 mg Nicotine (Nicoderm Patch -) 7 mg TD DAILY [facility] Last Admin: 11/04/17 09:51 Dose: 7 mg Nystatin (Nystatin Oral Suspension -) 500,000 units PO Q6HPO [facility] Stop: 11/09/17 11:59 Last Admin: 11/05/17 07:00 Dose: 500,000 units Pantoprazole Sodium (Protonix Iv) 40 mg IVPUSH DAILY [facility] Last Admin: 11/04/17 12:19 Dose: 40 mg Prednisone (Deltasone -) 40 mg PO DAILY [facility] Last Admin: 11/04/17 09:34 Dose: 40 mg Saliva Substitute (Mouthkote Solution -) 1 applic MM DAILY [facility] Last Admin: 11/04/17 09:37 Dose: 1 applic Gen: Intubated and sedated Heart: RRR Lung: bilateral rhonchi / crackles, no wheeze Abd: soft, nontender Ext: no edema Laboratory Results - last 24 hr 11/05/17 11/05/17 11/05/17 05:20 05:20 05:20 WBC 9.9 D RBC 2.62 L Hgb 8.6 L Hct 26.8 L MCV 102.0 H MCH 32.7 MCHC 32.1 RDW 16.3 H Plt Count 179 MPV 10.3 PTT (Actin FS) 61.6 H Sodium 139 Potassium 4.3 Chloride 94 L Carbon Dioxide 40 H Anion Gap 5 L BUN 28 H D Creatinine 0.7 D Creat Clearance w eGFR > 60 Random Glucose 179 H D Calcium 8.2 L Total Bilirubin 0.3 D AST 9 L ALT 13 Alkaline Phosphatase 62 Total Protein 7.0 Albumin 2.5 L Problem List - Problems (1) Acute respiratory failure with hypoxia Code(s): J96.01 - ACUTE RESPIRATORY FAILURE WITH HYPOXIA (2) Pneumonia Code(s): J18.9 - PNEUMONIA, UNSPECIFIED ORGANISM (3) Diabetes Code(s): E11.9 - TYPE 2 DIABETES MELLITUS WITHOUT COMPLICATIONS ASSESSMENT AND PLAN: Acute Hypoxic Respiratory Failure Pneumonia Sepsis Interstitial Lung Disease Acute Diastolic Heart Failure improved Acute Kidney Injury improving Lactic Acidosis resolved DM RLE DVT - antibiotics completed - continue prednisone - taper FiO2 to keep SpO2 >90% - lasix as needed : none today - monitor urine output, creatinine - monitor CXR - AC - Anticipate Trach early next week, hopefully Monday Dr Souza Critical care time spent in reviewing chart, evaluating patient and formulating plan 35 min
[2017-11-05] MEDS: FENTANYL INJECTION 500 MCG in SODIUM CHLORIDE 90 ML IVPB SCH ×3 (09:54→22:11)
[2017-11-05] MEDS: PANTOPRAZOLE SODIUM 40 MG VIAL IVPUSH SCH (09:54)
[2017-11-05] MEDS: predniSONE 20 MG TABLET (UD) PO SCH (09:57)
[2017-11-05] MEDS: NICOTINE 7 MG/24 HOURS TOPICAL PATCH TD SCH (09:57)
[2017-11-05] MEDS: LYTES/YERBA SANTA 240 ML BOTTLE MM SCH (09:58)
--- NOTE | 2017-11-05 12:09 | PN ---
Teaching Attending Note Name of Resident: . ATTENDING PHYSICIAN STATEMENT .Time of evaluation: 10 AM SUBJECTIVE: Patient seen and examined. Intubated, responds when called, denies pain. OBJECTIVE: Vital Signs Period Temp Pulse Resp BP Sys/Sutton Pulse Ox Last 24 Hr 97.8 F-98.8 F 69-87 17-27 92-154/47-79 95-100 Intake & Output 11/02/17 11/03/17 11/04/17 11/05/17 23:59 23:59 23:59 23:59 Intake Total 852 704.3 2156 1056 Output Total 1200 600 400 500 Balance -348 104.3 1756 556 Weight 164 lb 164 lb 2 oz 157 lb 1 oz 156 lb 15.506 oz general: intubated, sedated but responds to voice CVS:S1s2 regular Chest: bibasilar fine rales, unchanged Abdomen:soft, NT, ND, positive bowel sounds extremities: no edema Home Medication List Medication Instructions Recorded Confirmed Type Glipizide [Glucotrol Xl] 0 mg PO ASDIR 10/17/17 10/17/17 History Metformin HCl 0 mg PO ASDIR 10/17/17 10/17/17 History Tamsulosin HCl 0.4 mg PO DAILY 10/17/17 10/17/17 History Active Medications Generic Name Dose Route Start Last Admin Trade Name Freq PRN Reason Stop Dose Admin Acetaminophen 650 mg 10/19/17 22:58 11/02/17 22:14 Tylenol - PO 650 mg Q6H PRN Administration FEVER OR PAIN Artificial Tears 1 applic 11/03/17 22:00 11/05/17 00:00 Artificial Tears Ointment - OU 1 applic HS SONAL Administration Chlorhexidine Gluconate 1 applic 10/17/17 22:00 11/05/17 00:00 Hibiclens For Decolonization - TP 1 applic HS SONAL Administration Dextrose 25 gm 11/01/17 21:49 11/02/17 08:47 D50w (Vial) - IVPUSH 25 gm DAILY PRN Administration hypoglycemia Heparin Sodium (Porcine) 1,000 unit 10/20/17 17:59 10/26/17 12:54 Heparin - IVPUSH 1,000 unit PRN PRN Administration Heparin Heparin Sodium (Porcine) 5,000 unit 10/20/17 17:59 10/30/17 11:42 Heparin - IVPUSH 5,000 unit PRN PRN Administration Heparin HEPARIN SOD,PORK IN 0.45% NACL 25,000 units in 500 mls @ 20 mls/hr 10/20/17 18 :04 11/05/17 07:02 Heparin-1/2ns 25,000 Units/500 IVPB 1,050 units/hr TITR SONAL 21 mls/hr Protocol Administration 1,000 UNITS/HR Fentanyl 500 mcg/ Sodium 100 mls @ 10 mls/hr 11/03/17 16:00 11/05/17 09:54 Chloride IVPB 10 mls/hr TITR SONAL Administration Protocol 50 MCG/HR Propofol 1,000,000 mcg in 100 mls @ 4.275 mls/hr 11/04/17 19:00 11/04/17 10: 00 Diprivan - IVPB 10 mcg/kg/min TITR SONAL 4.275 mls/hr Protocol Administration 10 MCG/KG/MIN Insulin Aspart 1 vial 10/17/17 16:30 11/05/17 11:33 Novolog Vial Sliding Scale - SQ Not Given ACHS [facility] Protocol Midazolam HCl 2 mg 11/03/17 15:43 11/03/17 16:34 Versed - IVPUSH 2 mg Q8H PRN Administration AGITATION Nicotine 7 mg 10/19/17 12:45 11/05/17 09:57 Nicoderm Patch - TD 7 mg DAILY SONAL Administration Nystatin 500,000 units 10/30/17 12:00 11/05/17 11:33 Nystatin Oral Suspension - PO 11/09/17 11:59 500,000 units Q6HPO SONAL Administration Pantoprazole Sodium 40 mg 11/04/17 10:15 11/05/17 09:54 Protonix Iv IVPUSH 40 mg DAILY SONAL Administration Prednisone 40 mg 10/24/17 10:00 11/05/17 09:57 Deltasone - PO 40 mg DAILY SONAL Administration Saliva Substitute 1 applic 11/02/17 15:45 11/05/17 09:58 Mouthkote Solution - MM 1 applic DAILY SONAL Administration Laboratory Results - last 24 hr 11/05/17 11/05/17 11/05/17 05:20 05:20 05:20 WBC 9.9 D RBC 2.62 L Hgb 8.6 L Hct 26.8 L MCV 102.0 H MCH 32.7 MCHC 32.1 RDW 16.3 H Plt Count 179 MPV 10.3 PTT (Actin FS) 61.6 H Sodium 139 Potassium 4.3 Chloride 94 L Carbon Dioxide 40 H Anion Gap 5 L BUN 28 H D Creatinine 0.7 D Creat Clearance w eGFR > 60 POC Glucometer Random Glucose 179 H D Calcium 8.2 L Total Bilirubin 0.3 D AST 9 L ALT 13 Alkaline Phosphatase 62 Total Protein 7.0 Albumin 2.5 L 11/05/17 11/05/17 06:54 11:31 WBC RBC Hgb Hct MCV MCH MCHC RDW Plt Count MPV PTT (Actin FS) Sodium Potassium Chloride Carbon Dioxide Anion Gap BUN Creatinine Creat Clearance w eGFR POC Glucometer 291.32817 162.34182 Random Glucose Calcium Total Bilirubin AST ALT Alkaline Phosphatase Total Protein Albumin Microbiology 10/21/17 06:00 Serum Cryptococcal Antigen - Final 10/19/17 19:30 Sputum - Expectorated Gram Stain - Final 10/19/17 19:30 Sputum - Expectorated Sputum Culture - Final NORMAL RESPIRATORY TOYIN 10/17/17 10:10 Blood - Peripheral Venous Blood Culture - Final NO GROWTH AFTER 5 DAYS INCUBATION 10/17/17 10:10 Blood - Peripheral Venous Blood Culture - Final NO GROWTH AFTER 5 DAYS INCUBATION 10/17/17 13:57 Urine - Urine Clean Catch Urine Culture - Final NO GROWTH OBTAINED 10/17/17 13:57 Urine For Antigen Detection Legionella Antigen - Final 10/17/17 13:57 Urine For Antigen Detection Streptococcus pneumoniae Antigen (M - Final 10/17/17 10:25 Nasopharyngeal Swab Influenza Types A,B Antigen ([facility]) - Final 10/17/17 10:25 Nasopharyngeal Swab - Final ASSESSMENT AND PLAN: 62 yo M active smoker, pMHx of NIDDM, PUD, BPH admitted with acute hypoxic respiratory failure, and extensive RLE DVT -Acute hypoxic respiratory failure, suspect from ?ILD with pneumonitis -Extensive RLE Acute DVT, s/p IVC filter 10/20, thrombectmy 10/24 - Acute diastolic heart failure -Sepsis, likely from PNA -Lactic acidosis, from sepsis vs increased work of breathing, rsolved -?MIRLANDE from sepsis, resolved -Thrombocytopenia -Elevated INR -Chest wall and right sided abdominal pain -NIDDM -PUD -BPH Plan: intubated 11/03 Continue prednisone. ?ILD with pneumonitis, unclear etiology, Heparin drip. Hematology input noted, SFA for HIT neg, discuss about starting NOAC after trach. CT A/P noted, no acute concerns. Platelets improved. replete lytes prn. Ac 7.4, hold oral hypoglycemics.Blood sugars 70s -200s, levemir on hold, ISS, tube feeds osmolite. Continue flomax. Nicotine patch MICU monitoring. Plan for trach next week and possible LTACH. Total critical care time spent 35 min.
[2017-11-05] MEDS: PROPOFOL 1,000,000 MCG/100 ML VIAL IVPB SCH ×2 (13:45→19:00)
[2017-11-05] MEDS: MINERAL OIL/PETROLATUM,WHITE 3.5 GM TUBE OU SCH ×2 (22:09)
[2017-11-05] MEDS: CHLORHEXIDINE GLUCONATE 4% CLEANSER FOR DECOLONIZATION TP SCH ×2 (22:12)
[2017-11-06] MEDS: NYSTATIN 500,000 UNITS/5 ML SUSPENSION PO SCH ×4 (00:10→18:55)
[2017-11-06] MEDS: PROPOFOL 1,000,000 MCG/100 ML VIAL IVPB SCH ×2 (05:30→19:00)
[2017-11-06] MEDS: INSULIN SLIDING SCALE (NOVOLOG) 1 VIAL SQ SCH ×4 (06:16→22:30)
[2017-11-06 06:26] LABS: HEMATOCRIT 25.9 % (35.4-49); HEMOGLOBIN 8.2 GM/dL (11.7-16.9); MCH 32.2 pg (25.7-33.7); MCHC 31.7 g/dl (32.0-35.9); MEAN CELL VOLUME 101.5 fl (80-96); MEAN PLT VOLUME 10.2 fl (7.5-11.1); PLATELET COUNT 160 K/MM3 (134-434); RBC 2.55 M/mm3 (4.00-5.60); RDW 16.5 % (11.9-15.9); WHITE BLOOD COUNT 9.7 K/mm3 (4.0-10.0)
[2017-11-06 07:17] LABS: ALBUMIN 2.3 g/dl (3.4-5.0); ALK PHOS 66 U/L (45-117); ANION GAP 3 (8-16); BILIRUBIN,TOTAL 0.4 mg/dL (0.2-1.0); BLOOD UREA NITROGEN 19 mg/dL (7-18); CALCIUM 7.8 mg/dL (8.5-10.1); CHLORIDE 95 mmol/L (98-107); CO2 39 mmol/L (21-32); CREATININE 0.6 mg/dL (0.7-1.3); GLUCOSE,RANDOM 261 mg/dL (74-106); POTASSIUM 4.3 mmol/L (3.5-5.1); SGOT/AST 10 U/L (15-37); SGPT/ALT 12 U/L (12-78); SODIUM 137 mmol/L (136-145); TOT PROT 6.8 g/dl (6.4-8.2)
--- NOTE | 2017-11-06 07:22 | PN ---
Physical Exam: SUBJECTIVE: Patient seen and examined by me this AM - No events overnight. Still intubated, sedated. Tube feeds going. afebrile, stable. Pain well controlled - Plan for bedside trach tomorrow w/ Dr. Rosario. Will need PEG tube placement for feeds. OBJECTIVE: Vital Signs Intake & Output 11/03/17 11/04/17 11/05/17 11/06/17 23:59 23:59 23:59 23:59 Intake Total 704.3 2156 2631.2 814.4 Output Total 719 634 6742 350 Balance 104.3 1756 1531.2 464.4 Weight 74.446 kg 71.242 kg 71.2 kg 72.303 kg Period Temp Pulse Resp BP Sys/Sutton Pulse Ox Last 24 Hr 97.6 F-98.8 F 69-94 18-27 94-139/42-58 92-96 GENERAL: The patient is awake, alert, and fully oriented, in no acute distress. HEAD: Normal with no signs of trauma. EYES: PERRL, extraocular movements intact, sclera anicteric, conjunctiva clear. No ptosis. ENT: Ears normal, nares patent, oropharynx clear without exudates, moist mucous membranes. NECK: Trachea midline, full range of motion, supple. LUNGS: Diffuse fine crackles BL, more prominent at bases. No wheezes, no accessory muscle use HEART: 2/6 systolic ejection murmur at LUSB. Regular rate and rhythm, S1, S2 without murmur, rub or gallop. ABDOMEN: Soft, nontender, nondistended, normoactive bowel sounds, no guarding, no rebound, no hepatosplenomegaly, no masses. EXTREMITIES: No edema in LEs. 2+ pulses, warm, well-perfused NEUROLOGICAL: Cranial nerves II through XII grossly intact. Normal speech, gait not observed. PSYCH: Normal mood, normal affect. Appears depressed. SKIN: Warm, dry, normal turgor, no rashes or lesions noted Laboratory Results - last 24 hr CBC, BMP 11/06/17 05:45 11/06/17 05:45 11/02/17 11/02/17 11/03/17 10:56 21:51 06:14 WBC RBC Hgb Hct MCV MCH MCHC RDW Plt Count MPV POC Glucometer 162.82247 181.74015 169.26758 11/03/17 11/03/17 11/03/17 11:17 17:02 21:05 WBC RBC Hgb Hct MCV MCH MCHC RDW Plt Count MPV POC Glucometer 204.29599 229.06886 149.70359 11/04/17 11/04/17 11/04/17 05:51 12:29 17:33 WBC RBC Hgb Hct MCV MCH MCHC RDW Plt Count MPV POC Glucometer 251.10124 357.59042 > 400 11/04/17 11/05/17 11/05/17 23:01 06:54 11:31 WBC RBC Hgb Hct MCV MCH MCHC RDW Plt Count MPV POC Glucometer 243.61532 291.54960 162.74921 11/05/17 11/05/17 11/06/17 16:25 22:22 05:45 WBC 9.7 RBC 2.55 L Hgb 8.2 L Hct 25.9 L MCV 101.5 H MCH 32.2 MCHC 31.7 L RDW 16.5 H Plt Count 160 MPV 10.2 POC Glucometer 236.48015 293.38943 Active Medications Generic Name Dose Route Start Last Admin Trade Name Freq PRN Reason Stop Dose Admin Acetaminophen 650 mg 10/19/17 22:58 11/02/17 22:14 Tylenol - PO 650 mg Q6H PRN Administration FEVER OR PAIN Artificial Tears 1 applic 11/03/17 22:00 11/05/17 22:09 Artificial Tears Ointment - OU 1 applic [facility] Administration Chlorhexidine Gluconate 1 applic 10/17/17 22:00 11/05/17 22:12 Hibiclens For Decolonization - TP 1 applic HS [facility] Administration Dextrose 25 gm 11/01/17 21:49 11/02/17 08:47 D50w (Vial) - IVPUSH 25 gm DAILY PRN Administration hypoglycemia Heparin Sodium (Porcine) 1,000 unit 10/20/17 17:59 10/26/17 12:54 Heparin - IVPUSH 1,000 unit PRN PRN Administration Heparin Heparin Sodium (Porcine) 5,000 unit 10/20/17 17:59 10/30/17 11:42 Heparin - IVPUSH 5,000 unit PRN PRN Administration Heparin HEPARIN SOD,PORK IN 0.45% NACL 25,000 units in 500 mls @ 20 mls/hr 10/20/17 18 :04 11/05/17 07:02 Heparin-1/2ns 25,000 Units/500 IVPB 1,050 units/hr TITR SONAL 21 mls/hr Protocol Administration 1,000 UNITS/HR Fentanyl 500 mcg/ Sodium 100 mls @ 10 mls/hr 11/03/17 16:00 11/05/17 22:11 Chloride IVPB 10 mls/hr TITR SONAL Administration Protocol 50 MCG/HR Propofol 1,000,000 mcg in 100 mls @ 4.275 mls/hr 11/04/17 19:00 11/06/17 05: 30 Diprivan - IVPB 25 mcg/kg/min TITR SONAL 10.686 mls/hr Protocol Administration 10 MCG/KG/MIN Insulin Aspart 1 vial 10/17/17 16:30 11/06/17 06:16 Novolog Vial Sliding Scale - SQ 6 units ACHS SONAL Administration Protocol Midazolam HCl 2 mg 11/03/17 15:43 11/03/17 16:34 Versed - IVPUSH 2 mg Q8H PRN Administration AGITATION Nicotine 7 mg 10/19/17 12:45 11/05/17 09:57 Nicoderm Patch - TD 7 mg DAILY SONAL Administration Nystatin 500,000 units 10/30/17 12:00 11/06/17 06:16 Nystatin Oral Suspension - PO 11/09/17 11:59 500,000 units Q6HPO SONAL Administration Pantoprazole Sodium 40 mg 11/04/17 10:15 11/05/17 09:54 Protonix Iv IVPUSH 40 mg DAILY SONAL Administration Prednisone 40 mg 10/24/17 10:00 11/05/17 09:57 Deltasone - PO 40 mg DAILY SONAL Administration Saliva Substitute 1 applic 11/02/17 15:45 11/05/17 09:58 Mouthkote Solution - MM 1 applic DAILY SONAL Administration Microbiology 10/21/17 06:00 Serum Cryptococcal Antigen - Final 10/19/17 19:30 Sputum - Expectorated Gram Stain - Final 10/19/17 19:30 Sputum - Expectorated Sputum Culture - Final NORMAL RESPIRATORY TOYIN 10/17/17 10:10 Blood - Peripheral Venous Blood Culture - Final NO GROWTH AFTER 5 DAYS INCUBATION 10/17/17 10:10 Blood - Peripheral Venous Blood Culture - Final NO GROWTH AFTER 5 DAYS INCUBATION 10/17/17 13:57 Urine - Urine Clean Catch Urine Culture - Final NO GROWTH OBTAINED 10/17/17 13:57 Urine For Antigen Detection Legionella Antigen - Final 10/17/17 13:57 Urine For Antigen Detection Streptococcus pneumoniae Antigen (M - Final 10/17/17 10:25 Nasopharyngeal Swab Influenza Types A,B Antigen ([facility]) - Final 10/17/17 10:25 Nasopharyngeal Swab - Final Recent imaging: CXR 10/21/17 - Since 10/30/2017, the ARDS pattern has diminished minimally. Follow- up recommended. CT Abdomen 10/31 - The gallbladder demonstrates no definite CT pathology. There is nonspecific minimal to mild intrahepatic biliary tract dilatation. Clinical/ laboratory correlation is suggested as well as with follow-up CT. Dilatation of the main pancreatic duct as noted above. Pancreatic ductal dilatation was also noted on a 2013 ultrasound exam. Several small pancreatic head calcifications are seen suggestive of chronic calcific pancreatitis. No gross mass lesion is identified. Correlate with MRI/MRCP when the patient's clinical condition permits. No CT evidence of acute pancreatitis. Mild acute pancreatitis is frequently not demonstrable on CT or MRI. The partially imaged lower chest demonstrates prominent bilateral interstitial thickening with relative peripheral sparing - ? Noncardiogenic edema, infectious versus noninfectious pneumonitis, hemorrhage. Correlate clinically. This finding may be somewhat increased in comparison to a chest CT exam of 10/20/2017. No pleural effusion is seen. Bibasilar bronchiectasis. There is partial imaging of nonspecific mediastinal lymphadenopathy (as described on chest CT). Prominent atherosclerotic vascular calcifications. Mild to moderate L1 and mild L5 vertebral body compression fractures are noted which appear chronic. No bony retropulsion is seen. The visualized osseous structures appear to be diffusely demineralized. Clinical/laboratory correlation is suggested. Additional evaluation utilizing bone densitometry/DEXA scan may be considered. CXR 11/01 - Since a prior study of 10/31/2017, extensive opacification is identified throughout the lung james with little significant change. This is consistent with ARDS. No pleural effusions have developed. CXR 11/02 - No significant change from prior cxr. Still with BL reticulonodular diffuse opacification. CXR 11/05 - No significant change. BL reticulonodular pattern. 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 #Acute hypoxic respiratory failure - likely secondary to ILD of unknown etiology. Pt w/ prior smoking hx, worked in factory. Presumptive diagnosis ILD secondary to pneumonitis? Pt intubated on 11/03, tolerated well over the weekend - Plan for bedside trach placement tomorrow w/ Dr. Rosario. Family aware. Consent obtained - Will require PEG placement. GI to be consulted. Consent obtained. - Consider lung bx for further workup of etiology of lung dz - Pt intubated, sedated, NG tube for feeding - Insurance denied coverage for LTACH placement - C/w prednisone - fentanyl, midazolam for sedation - Xanax prn for anxiety - Once stable, will require transfer to tertiary care center for transplant evaluation -tylenol for chest pain #Extensive RLE DVT- IVC filter 10/20, thrombectomy 10/24; Still on heparin gtt - Continue heparin gtt protocol - Will transition to NOACs #Acute diastolic CHF failure - does not appear volume overloaded clinically - No lasix today; Cr normalized at 0.6 - Cardiac monitoring #macrocytic Anemia - 8.2 today, downtrending; MCV 102; Vit B12 normal - Trend H/H - Transfuse at <7 - post-procedure H/H tomorrow - Consider GI bleed, FOBT - folate normal #IDDM- A1c 7.4 - No further episodes of hypoglycemia; Dextrose push PRN - Hold home oral hypoglycemics; monitor for signs of hypoglycemia - ISS - BGM q4h #BPH -c/w home flomax #nicotine dependence -nicotine patch -smoking cessation PPX Heparin gtt IV PPI FEN PO fluids Daily BMPs Diabetic diet Pt denied coverage for LTACH. Will likely require transfer to tertiary care center for transplant evaluation once stabilized. . Plan discussed with attending, Dr. James Reeves, PGY1 Visit type - Emergency Visit Emergency Visit: Yes ED Registration Date: 10/17/17 Care time: The patient presented to the Emergency Department on the above date and was hospitalized for further evaluation of their emergent condition. - New Patient This patient is new to me today: No - Critical Care Critical Care patient: No
--- NOTE | 2017-11-06 07:54 | MSN ---
Progress Note (short form) - Note Progress Note: Subjective: Patient was seen this morning. He is currently intubated and on restraints. Objective: Last Vital Signs Temp Pulse Resp BP Pulse Ox 97.8 F 75 20 94/49 94 L 11/06/17 06:00 11/06/17 06:00 11/06/17 06:00 11/06/17 06:00 11/05/17 22:00 Intake & Output 11/03/17 11/04/17 11/05/17 11/06/17 23:59 23:59 23:59 23:59 Intake Total 704.3 2156 2631.2 814.4 Output Total 250 136 4369 350 Balance 104.3 1756 1531.2 464.4 Weight 164 lb 2 oz 157 lb 1 oz 156 lb 15.506 oz 159 lb 6.4 oz General: thin man, somnolent HEENT: PERRLA. Patient is intubated. Trachea midline. NG tube is in place Heart: RRR. no murmurs, rubs or gallops appreciated. Lungs: crackles appreciated laterally. Abdomen: mild tenderness on RUQ. Normoactive bowel sounds x4. Abd mesh palpable and visible. Extremities: Patient on hand restraints. Pulses 2+ B/L. No edema noted on UE and LE. CBC, BMP 11/06/17 05:45 11/06/17 05:45 Abnormal Lab Results 11/06/17 11/06/17 05:45 05:45 RBC 2.55 L Hgb 8.2 L Hct 25.9 L MCV 101.5 H MCHC 31.7 L RDW 16.5 H Chloride 95 L Carbon Dioxide 39 H Anion Gap 3 L BUN 19 H D Creatinine 0.6 L Random Glucose 261 H D Calcium 7.8 L AST 10 L Albumin 2.3 L Imaging: - chest x-ray 11/06/17: no changes - chest x-ray 11/03/17: ARDS pattern - chest x-ray 11/02/17: no change - chest x-ray 11/01/17: extensive opacification throughout with little significant changes. consistent with ARDS. - abdominal CT 10/31/17: Several small pancreatic head calcification suggestive of chronic calcific pancreatitis. no acute pancreatitis. Lungs b/l internstitial thickening with relative peripheral sparing. Noncardiogenic edema infx vs noninfectious pneumonitis, hemorrhage. Bibasilae bronchiectasis. Nonspecific mediastinal lymphadenopathy. Prominent atherosclerotic vascular calcifications. Mild chronic L1-L5 body compression fractures. osseous structures diffusely de-mineralized. - chest x-ray 10/31/17: Since 10/30/2017, the ARDS pattern has diminished minimally - chest x-ray 10/30/17: Since 10/29/2017, the diffuse airspace changes are again noted. This has the appearance of an ARDS pattern. Follow-up recommended. - chest x-ray 10/29/17: Since 10/28/2017, the diffuse airspace changes are again noted which could indicate ARDS. - Leg US 10/20/17: DVT noted. There is occlusive thrombosis within the common, deep and superficial femoral veins, as well as the popliteal and posterior tibial veins. These veins are incompressible, an additional sign of DVT. The greater saphenous vein is patent, however, the lesser saphenous vein is also thrombosed. - Abd US 10/18/17: Moderate to marked gallbladder contraction is noted which may be physiologic in nature versus secondary to chronic cholecystitis. If clinically indicated correlate with two-week follow-up sonography with optimal pre - exam fasting. Gallbladder contraction was also described on a previous ultrasound exam of 03/25/2013. No sonographic evidence of acute cholecystitis. There is no obvious evidence of cholelithiasis allowing for previously described gallbladder contraction. No definite biliary tract dilatation is seen. The partially visualized pancreas demonstrates no gross sonographic abnormality. However, on the 2012 ultrasound study dilatation of the main pancreatic duct was described with a 0.5 cm diameter. Given this apparent finding on the prior study additional evaluation utilizing MRI/MRCP is suggested when the patient's clinical condition permits (unless already performed at a different facility). - Echo 10/17/17: normal left ventricle with mild reduced systolic function, EF 45. RV normal. mild to moderate mitral valve thickening. moderate mitral regurgitation. mild tricuspid regurgitation. mild pulmonary HTN. mild arotic steclerosis. no aortic regurgitation. no pericardial effusion. Assessment/ Plan: 62yo M smoker with PMH of NIDDM, PUD, BPH admitted with respiratory failure, severe sepsis, CHF who had extensive right LE DVT s/p IVC filter 10/20/17 and s/p thrombectomy 10/24/17. Patient had increased respiratory distress and was intubated on 11/03/17. # Hypoxic respiratory failure possibly from interstitial lung dz with pneumonitis, or CHF. etiology unknown. - intubated on 11/03/17 - vent setting: FiO2 70, rate 18, peak flow 60, Tv 400, PEEP 7, %O2 90 - consider tracheostomy tube. need family consent - NOACs after trache. - Prednisone (Deltasone -) 40 mg PO DAILY [facility] - [facility] # NIDDM. A1C 7.4. - diabetic diet. tube feeds osmolite. 1100mL/24 hrs, 1320 kcal. - Insulin Aspart (Novolog Vial Sliding Scale -) 1 vial SQ ACHS SONAL - Insulin Detemir (Levemir Vial) 10 units SQ DAILY SONAL - discontinued. # RUQ abd pain- unchanged - U/S on 10/18 was negative - abd CT negative for acute pathology # thrombocytopenia - possibly due to sepsis - resolved - HIT antibody sent and is unequivocal. Level 0.473 (N: <0.4) likely falsely elevated. KAY negative- HIT ruled out. # RLE pain secondary to DVT s/p IV filter on 10/20/17 and thrombectomy on 10/24/17 - Acetaminophen (Tylenol -) 650 mg PO Q6H PRN fever/ pain - continue heparin # severe sepsis likely secondary to CAP - bp stable. not on pressors. - Azithromycin and Ceftriaxone 7 days completed on 10/24/17 - blood cultures and sputum culture negative # macrocytic anemia - continue to monitor # BPH - continue home med of Tamsulosin 0.4mg PO daily # FEN - F: NG tube - E: continue to monitor - N: tube feeds- osmolite. 1100mL/24hr 1320 kcal #DVT prophylaxis - heparin drip
[2017-11-06] MEDS: predniSONE 20 MG TABLET (UD) PO SCH (09:34)
[2017-11-06] MEDS: PANTOPRAZOLE SODIUM 40 MG VIAL IVPUSH SCH (09:34)
[2017-11-06] MEDS: NICOTINE 7 MG/24 HOURS TOPICAL PATCH TD SCH (09:34)
[2017-11-06] MEDS: HEPARIN NA (PORCINE) 5,000 UNITS/ML 1ML VIAL IVPUSH PRN (09:34)
[2017-11-06] MEDS: LYTES/YERBA SANTA 240 ML BOTTLE MM SCH (09:35)
[2017-11-06] MEDS ORDERED: fentaNYL CITRATE 250 MCG/5 ML VIAL ONE ×2 (12:11→21:13)
--- NOTE | 2017-11-06 12:13 | PN ---
Physical Exam: SUBJECTIVE: Patient seen and examined Patient is a 62 year old male who was BIBEMS for hypoxic respiratory failure eating food, off of pressers, but with RLE DVT without PE s/p IVC filter, thrombectomy, catheter directed heparin infusion, requiring intubation. Patient denies any complaints currently and is intubated on exam. Otherwise no acute events overnight. OBJECTIVE: Vital Signs Period Temp Pulse Resp BP Sys/Sutton Pulse Ox Last 24 Hr 97.6 F-98.9 F 69-94 18-27 94-139/42-74 92-96 GENERAL: The patient is awake, sedated, and intubated, in no acute distress. HEAD: Normal with no signs of trauma. EYES: sclera anicteric, conjunctiva clear. No ptosis. ENT: oropharynx clear without exudates, moist mucous membranes. NECK: Trachea midline, full range of motion, supple. LUNGS: Breath sounds equal, Bilateral rales auscultated on exam, no wheezes, no accessory muscle use. HEART: Regular rate and rhythm, S1, S2 without murmur, rub or gallop. ABDOMEN: Soft, nontender, nondistended, normoactive bowel sounds, no guarding, no rebound, no hepatosplenomegaly, no masses. EXTREMITIES: 2+ pulses, warm, well-perfused, NEUROLOGICAL:Intubated gait not observed. PSYCH: Normal mood, normal affect. SKIN: Warm, dry, normal turgor, no rashes or lesions noted Laboratory Results - last 24 hr 11/02/17 11/02/17 11/03/17 10:56 21:51 06:14 WBC RBC Hgb Hct MCV MCH MCHC RDW Plt Count MPV PTT (Actin FS) Sodium Potassium Chloride Carbon Dioxide Anion Gap BUN Creatinine Creat Clearance w eGFR POC Glucometer 162.51250 181.72847 169.99463 Random Glucose Calcium Total Bilirubin AST ALT Alkaline Phosphatase C-Reactive Protein Total Protein Albumin 11/03/17 11/03/17 11/03/17 11:17 17:02 21:05 WBC RBC Hgb Hct MCV MCH MCHC RDW Plt Count MPV PTT (Actin FS) Sodium Potassium Chloride Carbon Dioxide Anion Gap BUN Creatinine Creat Clearance w eGFR POC Glucometer 204.95220 229.34268 149.53914 Random Glucose Calcium Total Bilirubin AST ALT Alkaline Phosphatase C-Reactive Protein Total Protein Albumin 0111/04/17 11/04/17 05:51 12:29 17:33 WBC RBC Hgb Hct MCV MCH MCHC RDW Plt Count MPV PTT (Actin FS) Sodium Potassium Chloride Carbon Dioxide Anion Gap BUN Creatinine Creat Clearance w eGFR POC Glucometer 251.33660 357.45776 > 400 Random Glucose Calcium Total Bilirubin AST ALT Alkaline Phosphatase C-Reactive Protein Total Protein Albumin 11/04/17 11/05/17 11/05/17 23:01 16:25 22:22 WBC RBC Hgb Hct MCV MCH MCHC RDW Plt Count MPV PTT (Actin FS) Sodium Potassium Chloride Carbon Dioxide Anion Gap BUN Creatinine Creat Clearance w eGFR POC Glucometer 243.68738 236.14360 [phone] Random Glucose Calcium Total Bilirubin AST ALT Alkaline Phosphatase C-Reactive Protein Total Protein Albumin 11/06/17 11/06/17 11/06/17 05:45 05:45 05:45 WBC 9.7 RBC 2.55 L Hgb 8.2 L Hct 25.9 L MCV 101.5 H MCH 32.2 MCHC 31.7 L RDW 16.5 H Plt Count 160 MPV 10.2 PTT (Actin FS) 29.8 D Sodium 137 Potassium 4.3 Chloride 95 L Carbon Dioxide 39 H Anion Gap 3 L BUN 19 H D Creatinine 0.6 L Creat Clearance w eGFR > 60 POC Glucometer Random Glucose 261 H D Calcium 7.8 L Total Bilirubin 0.4 D AST 10 L ALT 12 Alkaline Phosphatase 66 C-Reactive Protein 15.7 H Total Protein 6.8 Albumin 2.3 L Active Medications Generic Name Dose Route Start Last Admin Trade Name Freq PRN Reason Stop Dose Admin Acetaminophen 650 mg 10/19/17 22:58 11/02/17 22:14 Tylenol - PO 650 mg Q6H PRN Administration FEVER OR PAIN Artificial Tears 1 applic 11/03/17 22:00 11/05/17 22:09 Artificial Tears Ointment - OU 1 applic HS SONAL Administration Chlorhexidine Gluconate 1 applic 10/17/17 22:00 11/05/17 22:12 Hibiclens For Decolonization - TP 1 applic HS SONAL Administration Dextrose 25 gm 11/01/17 21:49 11/02/17 08:47 D50w (Vial) - IVPUSH 25 gm DAILY PRN Administration hypoglycemia Heparin Sodium (Porcine) 1,000 unit 10/20/17 17:59 10/26/17 12:54 Heparin - IVPUSH 1,000 unit PRN PRN Administration Heparin Heparin Sodium (Porcine) 5,000 unit 10/20/17 17:59 11/06/17 09:34 Heparin - IVPUSH 5,000 unit PRN PRN Administration Heparin HEPARIN SOD,PORK IN 0.45% NACL 25,000 units in 500 mls @ 20 mls/hr 10/20/17 18 :04 11/06/17 09:45 Heparin-1/2ns 25,000 Units/500 IVPB 1,200 units/hr TITR SONAL 24 mls/hr Protocol Titration 1,000 UNITS/HR Fentanyl 500 mcg/ Sodium 100 mls @ 10 mls/hr 11/03/17 16:00 11/05/17 22:11 Chloride IVPB 10 mls/hr TITR SONAL Administration Protocol 50 MCG/HR Propofol 1,000,000 mcg in 100 mls @ 4.275 mls/hr 11/04/17 19:00 11/06/17 05: 30 Diprivan - IVPB 25 mcg/kg/min TITR SONAL 10.686 mls/hr Protocol Administration 10 MCG/KG/MIN Insulin Aspart 1 vial 10/17/17 16:30 11/06/17 12:03 Novolog Vial Sliding Scale - SQ 2 units ACHS SONAL Administration Protocol Midazolam HCl 2 mg 11/03/17 15:43 11/03/17 16:34 Versed - IVPUSH 2 mg Q8H PRN Administration AGITATION Nicotine 7 mg 10/19/17 12:45 11/06/17 09:34 Nicoderm Patch - TD 7 mg DAILY SONAL Administration Nystatin 500,000 units 10/30/17 12:00 11/06/17 06:16 Nystatin Oral Suspension - PO 11/09/17 11:59 500,000 units Q6HPO SONAL Administration Pantoprazole Sodium 40 mg 11/04/17 10:15 11/06/17 09:34 Protonix Iv IVPUSH 40 mg DAILY SONAL Administration Prednisone 40 mg 10/24/17 10:00 11/06/17 09:34 Deltasone - PO 40 mg DAILY [facility]ON[facility] Administration Saliva Substitute 1 applic 11/02/17 15:45 11/06/17 09:35 Mouthkote Solution - MM 1 applic DAILY SONAL Administration ASSESSMENT/PLAN: Patient is a 62 year old male who was BIBEMS for hypoxic respiratory failure eating food, off of pressers, but with RLE DVT without PE s/p IVC filter, thrombectomy, catheter directed heparin infusion, requiring intubation. Neuro: #Nicotine Dependence: - Nicotine patch 7 MG daily #Intubation -Patient on propofol and fentanyl for sedation. CV: #Septic Shock vs. iatrogenic hypovolemic shock vs. cardiogenic shock: original presentation - Tachycardia of 105, Respiratory rate 26, Fever of 101, WBC of 11.7, Hypotension with SBP <90 with no response to IV fluids, and Lactic Acidosis of 3.6. Source unclear but likely PNA. Off pressers - Resolved #DVT: U/S positive for Right calf DVT, s/p thrombectomy - s/p IR direct infusion, doing well - Continue hep drip #Chest Pain: - EKG unchanged Pulm: #Acute Hypoxic Respiratory Failure: Legionalla and strep negative. Zosyn and Vancomycin given in ED. Patient denies any recent hospitalization or abx use. Original chest X-ray reveals bilateral multifocal inflammatory changes (ARDS) vs. congestive heart failure. given JVD and crackles it is likely the later. treated for CAP. ECHO showing mild mitral regurg, mild/mod tricuspid regurg, mild PHTN. CT demonstrating diffuse interstitial lung disease AND XRs evidencing occasional volume overload. We discussed with the family the possibility that the patient will require tracheostomy in the future given his continued ventilation requirements. The family will discuss amongst themselves and the patient regarding whether to proceed with tracheostomy or continue with continuous bipap and ltach placement and decided to proceed with intubation for possible tracheostomy. - We contacted the patient's family and informed them to come to the patient's bedside for consent for tracheostomy. - Continue Prednisone 40 daily - Patient intubated with an 8.0 ET tube 22cm at the lip. - Patient did well with intubation over the weekend. Will require trach given his continued respiratory requirements. - All cultures negative ID: likely ILD with GGO vs. infectious pattern. HIV, influenza, strep, legionella neg. BCx NGTD, sputum Cx NGTD. Completed Azithromycin and Ceftriaxone for suspected CAP. All cultures neg and ID tests neg including cryptococcal - ID recs appreciated Renal: - CTM - Avoid nephrotoxic medications Heme: #Macrocytic Anemia: Hemoglobin 9.2 with MCV 101. Ferritin 882 (likely reactive) -Hb stable Endo #NIDDM: -Patient is no longer having hypoglycemic episodes requiring D50 pushes -Will continue to monitor BGM and provided D50 pushes as needed. -ISS : #BPH -Patient on Tamsulosin 0.4mg daily GI: #Peptic Ulcer Disease: History of mesh according to family and had Endoscopy two months. Was given medications according to patients daughter and completed course. - on PPI FEN -Electrolytes Repleted as needed. -Diabetic diet while on HFNC PPX: - Hep drip - Protonix Disposition: Continued ICU care. Visit type - Emergency Visit Emergency Visit: No - New Patient This patient is new to me today: No - Critical Care Critical Care patient: Yes Total Critical Care Time (in minutes): 35 Critical Care Statement: The care of this patient involved high complexity decision making to prevent further life threatening deterioration of the patient 's condition and/or to evaluate & treat vital organ system(s) failure or risk of failure.
[2017-11-06] MEDS: FENTANYL INJECTION 500 MCG in SODIUM CHLORIDE 90 ML IVPB SCH ×2 (12:17→18:54)
--- NOTE | 2017-11-06 12:23 | PN ---
Teaching Attending Note Name of Resident: Evans Marie ATTENDING PHYSICIAN STATEMENT I saw and evaluated the patient. I reviewed the resident's note and discussed the case with the resident. I agree with the resident's findings and plan as documented. SUBJECTIVE: Patient seen and examined in the ICU. Intubated and sedated. AC Mode of vent. 70% FiO2 / 7 PEEP. No pressors CXR: No gross change OBJECTIVE: Intake & Output 11/03/17 11/04/17 11/05/17 11/06/17 23:59 23:59 23:59 23:59 Intake Total 704.3 2156 2631.2 814.4 Output Total 281 473 2602 350 Balance 104.3 1756 1531.2 464.4 Weight 164 lb 2 oz 157 lb 1 oz 156 lb 15.506 oz 159 lb 6.4 oz Last Vital Signs Temp Pulse Resp BP Pulse Ox 98.9 F 72 18 118/74 96 11/06/17 10:00 11/06/17 10:00 11/06/17 11:56 11/06/17 10:00 11/06/17 09:00 Active Medications Acetaminophen (Tylenol -) 650 mg PO Q6H PRN PRN Reason: FEVER OR PAIN Last Admin: 11/02/17 22:14 Dose: 650 mg Artificial Tears (Artificial Tears Ointment -) 1 applic OU HS SONAL Last Admin: 11/05/17 22:09 Dose: 1 applic Chlorhexidine Gluconate (Hibiclens For Decolonization -) 1 applic TP HS SONAL Last Admin: 11/05/17 22:12 Dose: 1 applic Dextrose (D50w (Vial) -) 25 gm IVPUSH DAILY PRN PRN Reason: hypoglycemia Last Admin: 11/02/17 08:47 Dose: 25 gm Heparin Sodium (Porcine) (Heparin -) 1,000 unit IVPUSH PRN PRN PRN Reason: Heparin Last Admin: 10/26/17 12:54 Dose: 1,000 unit Heparin Sodium (Porcine) (Heparin -) 5,000 unit IVPUSH PRN PRN PRN Reason: Heparin Last Admin: 11/06/17 09:34 Dose: 5,000 unit HEPARIN SOD,PORK IN 0.45% NACL (Heparin-1/2ns 25,000 Units/500) 25,000 units in 500 mls @ 20 mls/hr IVPB TITR SONAL; 1,000 UNITS/HR PRN Reason: Protocol Last Titration: 11/06/17 09:45 Dose: 1,200 units/hr, 24 mls/hr Fentanyl 500 mcg/ Sodium (Chloride) 100 mls @ 10 mls/hr IVPB TITR SONAL; 50 MCG/ HR PRN Reason: Protocol Last Admin: 11/06/17 12:17 Dose: 10 mls/hr Propofol (Diprivan -) 1,000,000 mcg in 100 mls @ 4.275 mls/hr IVPB TITR SONAL; 10 MCG/KG/MIN PRN Reason: Protocol Last Admin: 11/06/17 05:30 Dose: 25 mcg/kg/min, 10.686 mls/hr Insulin Aspart (Novolog Vial Sliding Scale -) 1 vial SQ ACHS SONAL PRN Reason: Protocol Last Admin: 11/06/17 12:03 Dose: 2 units Midazolam HCl (Versed -) 2 mg IVPUSH Q8H PRN PRN Reason: AGITATION Last Admin: 11/03/17 16:34 Dose: 2 mg Nicotine (Nicoderm Patch -) 7 mg TD DAILY [facility] Last Admin: 11/06/17 09:34 Dose: 7 mg Nystatin (Nystatin Oral Suspension -) 500,000 units PO Q6HPO [facility] Stop: 11/09/17 11:59 Last Admin: 11/06/17 12:16 Dose: 500,000 units Pantoprazole Sodium (Protonix Iv) 40 mg IVPUSH DAILY [facility] Last Admin: 11/06/17 09:34 Dose: 40 mg Prednisone (Deltasone -) 40 mg PO DAILY [facility] Last Admin: 11/06/17 09:34 Dose: 40 mg Saliva Substitute (Mouthkote Solution -) 1 applic MM DAILY [facility] Last Admin: 11/06/17 09:35 Dose: 1 applic Gen: Intubated and awake and responsive Heart: RRR Lung: basilar rhonchi Abd: soft, nontender Ext: no edema Laboratory Results - last 24 hr 11/02/17 11/02/17 11/03/17 10:56 21:51 06:14 WBC RBC Hgb Hct MCV MCH MCHC RDW Plt Count MPV PTT (Actin FS) Sodium Potassium Chloride Carbon Dioxide Anion Gap BUN Creatinine Creat Clearance w eGFR POC Glucometer 162.13179 181.74030 169.17403 Random Glucose Calcium Total Bilirubin AST ALT Alkaline Phosphatase C-Reactive Protein Total Protein Albumin 11/03/17 11/03/17 11/03/17 11:17 17:02 21:05 WBC RBC Hgb Hct MCV MCH MCHC RDW Plt Count MPV PTT (Actin FS) Sodium Potassium Chloride Carbon Dioxide Anion Gap BUN Creatinine Creat Clearance w eGFR POC Glucometer 204.94318 229.92765 149.97819 Random Glucose Calcium Total Bilirubin AST ALT Alkaline Phosphatase C-Reactive Protein Total Protein Albumin 11/04/17 11/04/17 11/04/17 05:51 12:29 17:33 WBC RBC Hgb Hct MCV MCH MCHC RDW Plt Count MPV PTT (Actin FS) Sodium Potassium Chloride Carbon Dioxide Anion Gap BUN Creatinine Creat Clearance w eGFR POC Glucometer 251.88269 357.84115 > 400 Random Glucose Calcium Total Bilirubin AST ALT Alkaline Phosphatase C-Reactive Protein Total Protein Albumin 11/04/17 11/05/17 11/05/17 23:01 16:25 22:22 WBC RBC Hgb Hct MCV MCH MCHC RDW Plt Count MPV PTT (Actin FS) Sodium Potassium Chloride Carbon Dioxide Anion Gap BUN Creatinine Creat Clearance w eGFR POC Glucometer 243.16759 236.98048 [phone] Random Glucose Calcium Total Bilirubin AST ALT Alkaline Phosphatase C-Reactive Protein Total Protein Albumin 11/06/17 11/06/17 11/06/17 05:45 05:45 05:45 WBC 9.7 RBC 2.55 L Hgb 8.2 L Hct 25.9 L MCV 101.5 H MCH 32.2 MCHC 31.7 L RDW 16.5 H Plt Count 160 MPV 10.2 PTT (Actin FS) 29.8 D Sodium 137 Potassium 4.3 Chloride 95 L Carbon Dioxide 39 H Anion Gap 3 L BUN 19 H D Creatinine 0.6 L Creat Clearance w eGFR > 60 POC Glucometer Random Glucose 261 H D Calcium 7.8 L Total Bilirubin 0.4 D AST 10 L ALT 12 Alkaline Phosphatase 66 C-Reactive Protein 15.7 H Total Protein 6.8 Albumin 2.3 L Problem List - Problems (1) Acute respiratory failure with hypoxia Code(s): J96.01 - ACUTE RESPIRATORY FAILURE WITH HYPOXIA (2) Pneumonia Code(s): J18.9 - PNEUMONIA, UNSPECIFIED ORGANISM (3) Diabetes Code(s): E11.9 - TYPE 2 DIABETES MELLITUS WITHOUT COMPLICATIONS ASSESSMENT AND PLAN: Acute Hypoxic Respiratory Failure Pneumonia Sepsis Interstitial Lung Disease Acute Diastolic Heart Failure improved Acute Kidney Injury improving Lactic Acidosis resolved DM RLE DVT - ABX completed - Prednisone - taper FiO2 to keep SpO2 >90% - lasix as needed - monitor urine output, creatinine - monitor CXR - AC - Will need Trach / PEG Dr Souza Critical care time spent in reviewing chart, evaluating patient and formulating plan 35 min
--- NOTE | 2017-11-06 13:06 | PN ---
Teaching Attending Note Name of Resident: Dylon Reeves ATTENDING PHYSICIAN STATEMENT Time of evaluation: 12:30 PM I saw and evaluated the patient. I reviewed the resident's note and discussed the case with the resident. I agree with the resident's findings and plan as documented. SUBJECTIVE: patient seen and examined, intubated, comfortable, no pain. OBJECTIVE: Vital Signs Period Temp Pulse Resp BP Sys/Sutton Pulse Ox Last 24 Hr 97.6 F-98.9 F 69-94 18-27 94-139/42-74 92-96 Intake & Output 11/03/17 11/04/17 11/05/17 11/06/17 23:59 23:59 23:59 23:59 Intake Total 704.3 2156 2631.2 814.4 Output Total 339 537 3921 350 Balance 104.3 1756 1531.2 464.4 Weight 164 lb 2 oz 157 lb 1 oz 156 lb 15.506 oz 159 lb 6.4 oz General: intubated, awake but comfortable CVS:S1S2 regular Chest: bibasilar fine rales abdomen: soft, NT Extremities: almost resolved RLE edema Home Medication List Medication Instructions Recorded Confirmed Type Glipizide [Glucotrol Xl] 0 mg PO ASDIR 10/17/17 10/17/17 History Metformin HCl 0 mg PO ASDIR 10/17/17 10/17/17 History Tamsulosin HCl 0.4 mg PO DAILY 10/17/17 10/17/17 History Active Medications Generic Name Dose Route Start Last Admin Trade Name Freq PRN Reason Stop Dose Admin Acetaminophen 650 mg 10/19/17 22:58 11/02/17 22:14 Tylenol - PO 650 mg Q6H PRN Administration FEVER OR PAIN Artificial Tears 1 applic 11/03/17 22:00 11/05/17 22:09 Artificial Tears Ointment - OU 1 applic HS SONAL Administration Chlorhexidine Gluconate 1 applic 10/17/17 22:00 11/05/17 22:12 Hibiclens For Decolonization - TP 1 applic HS SONAL Administration Dextrose 25 gm 11/01/17 21:49 11/02/17 08:47 D50w (Vial) - IVPUSH 25 gm DAILY PRN Administration hypoglycemia Heparin Sodium (Porcine) 1,000 unit 10/20/17 17:59 10/26/17 12:54 Heparin - IVPUSH 1,000 unit PRN PRN Administration Heparin Heparin Sodium (Porcine) 5,000 unit 10/20/17 17:59 11/06/17 09:34 Heparin - IVPUSH 5,000 unit PRN PRN Administration Heparin HEPARIN SOD,PORK IN 0.45% NACL 25,000 units in 500 mls @ 20 mls/hr 10/20/17 18 :04 11/06/17 09:45 Heparin-1/2ns 25,000 Units/500 IVPB 1,200 units/hr TITR SONAL 24 mls/hr Protocol Titration 1,000 UNITS/HR Fentanyl 500 mcg/ Sodium 100 mls @ 10 mls/hr 11/03/17 16:00 11/06/17 12:17 Chloride IVPB 10 mls/hr TITR SONAL Administration Protocol 50 MCG/HR Propofol 1,000,000 mcg in 100 mls @ 4.275 mls/hr 11/04/17 19:00 11/06/17 05: 30 Diprivan - IVPB 25 mcg/kg/min TITR SONAL 10.686 mls/hr Protocol Administration 10 MCG/KG/MIN Insulin Aspart 1 vial 10/17/17 16:30 11/06/17 12:03 Novolog Vial Sliding Scale - SQ 2 units ACHS SONAL Administration Protocol Midazolam HCl 2 mg 11/03/17 15:43 11/03/17 16:34 Versed - IVPUSH 2 mg Q8H PRN Administration AGITATION Nicotine 7 mg 10/19/17 12:45 11/06/17 09:34 Nicoderm Patch - TD 7 mg DAILY SONAL Administration Nystatin 500,000 units 10/30/17 12:00 11/06/17 12:16 Nystatin Oral Suspension - PO 11/09/17 11:59 500,000 units Q6HPO SONAL Administration Pantoprazole Sodium 40 mg 11/04/17 10:15 11/06/17 09:34 Protonix Iv IVPUSH 40 mg DAILY SONAL Administration Prednisone 40 mg 10/24/17 10:00 11/06/17 09:34 Deltasone - PO 40 mg DAILY SONAL Administration Saliva Substitute 1 applic 11/02/17 15:45 11/06/17 09:35 Mouthkote Solution - MM 1 applic DAILY SONAL Administration Laboratory Results - last 24 hr 11/02/17 11/02/17 11/03/17 10:56 21:51 06:14 WBC RBC Hgb Hct MCV MCH MCHC RDW Plt Count MPV PTT (Actin FS) Sodium Potassium Chloride Carbon Dioxide Anion Gap BUN Creatinine Creat Clearance w eGFR POC Glucometer 162.97339 181.61578 169.93837 Random Glucose Calcium Total Bilirubin AST ALT Alkaline Phosphatase C-Reactive Protein Total Protein Albumin 11/03/17 11/03/17 11/03/17 11:17 17:02 21:05 WBC RBC Hgb Hct MCV MCH MCHC RDW Plt Count MPV PTT (Actin FS) Sodium Potassium Chloride Carbon Dioxide Anion Gap BUN Creatinine Creat Clearance w eGFR POC Glucometer 204.26543 229.74203 149.96793 Random Glucose Calcium Total Bilirubin AST ALT Alkaline Phosphatase C-Reactive Protein Total Protein Albumin 11/04/17 11/04/17 11/04/17 05:51 12:29 17:33 WBC RBC Hgb Hct MCV MCH MCHC RDW Plt Count MPV PTT (Actin FS) Sodium Potassium Chloride Carbon Dioxide Anion Gap BUN Creatinine Creat Clearance w eGFR POC Glucometer 251.35404 357.18168 > 400 Random Glucose Calcium Total Bilirubin AST ALT Alkaline Phosphatase C-Reactive Protein Total Protein Albumin 11/04/17 11/05/17 11/05/17 23:01 16:25 22:22 WBC RBC Hgb Hct MCV MCH MCHC RDW Plt Count MPV PTT (Actin FS) Sodium Potassium Chloride Carbon Dioxide Anion Gap BUN Creatinine Creat Clearance w eGFR POC Glucometer 243.56073 236.02510 [phone] Random Glucose Calcium Total Bilirubin AST ALT Alkaline Phosphatase C-Reactive Protein Total Protein Albumin 11/06/17 11/06/17 11/06/17 05:45 05:45 05:45 WBC 9.7 RBC 2.55 L Hgb 8.2 L Hct 25.9 L MCV 101.5 H MCH 32.2 MCHC 31.7 L RDW 16.5 H Plt Count 160 MPV 10.2 PTT (Actin FS) 29.8 D Sodium 137 Potassium 4.3 Chloride 95 L Carbon Dioxide 39 H Anion Gap 3 L BUN 19 H D Creatinine 0.6 L Creat Clearance w eGFR > 60 POC Glucometer Random Glucose 261 H D Calcium 7.8 L Total Bilirubin 0.4 D AST 10 L ALT 12 Alkaline Phosphatase 66 C-Reactive Protein 15.7 H Total Protein 6.8 Albumin 2.3 L Microbiology 10/21/17 06:00 Serum Cryptococcal Antigen - Final 10/19/17 19:30 Sputum - Expectorated Gram Stain - Final 10/19/17 19:30 Sputum - Expectorated Sputum Culture - Final NORMAL RESPIRATORY TOYIN 10/17/17 10:10 Blood - Peripheral Venous Blood Culture - Final NO GROWTH AFTER 5 DAYS INCUBATION 10/17/17 10:10 Blood - Peripheral Venous Blood Culture - Final NO GROWTH AFTER 5 DAYS INCUBATION 10/17/17 13:57 Urine - Urine Clean Catch Urine Culture - Final NO GROWTH OBTAINED 10/17/17 13:57 Urine For Antigen Detection Legionella Antigen - Final 10/17/17 13:57 Urine For Antigen Detection Streptococcus pneumoniae Antigen (M - Final 10/17/17 10:25 Nasopharyngeal Swab Influenza Types A,B Antigen ([facility]) - Final 10/17/17 10:25 Nasopharyngeal Swab - Final Cxr - overall unchanged ASSESSMENT AND PLAN: 62 yo M active smoker, pMHx of NIDDM, PUD, BPH admitted with acute hypoxic respiratory failure, and extensive RLE DVT -Acute hypoxic respiratory failure, suspect from ?ILD with pneumonitis s/p intubation 11/03 -Extensive RLE Acute DVT, s/p IVC filter 10/20, thrombectmy 10/24 - Acute diastolic heart failure -Sepsis, likely from PNA -Lactic acidosis, from sepsis vs increased work of breathing, rsolved -?MIRLANDE from sepsis, resolved -Thrombocytopenia -Elevated INR -Chest wall and right sided abdominal pain -NIDDM -PUD -BPH Plan: intubated 11/03, possible trach in AM. Continue prednisone. ?ILD with pneumonitis, unclear etiology, Heparin drip. Hematology input noted, SFA for HIT neg, start NOAC after trach. CT A/P noted, no acute concerns. Platelets improved. replete lytes prn. Ac 7.4, hold oral hypoglycemics.Blood sugars 50s -200s, levemir on hold, ISS, tube feeds osmolite. Resume based on blood sugar readings. Continue flomax. Nicotine patch MICU monitoring. Plan for trach likely tomorrow and possible LTACH. Total critical care time spent 35 min.
[2017-11-06] MEDS: MINERAL OIL/PETROLATUM,WHITE 3.5 GM TUBE OU SCH (22:22)
[2017-11-06] MEDS: CHLORHEXIDINE GLUCONATE 4% CLEANSER FOR DECOLONIZATION TP SCH (22:23)
[2017-11-07] MEDS: NYSTATIN 500,000 UNITS/5 ML SUSPENSION PO SCH ×4 (00:35→17:10)
--- NOTE | 2017-11-07 05:04 | PN ---
Physical Exam: SUBJECTIVE: Patient seen and examined by me this AM - No events overnight. Pt states breathing is worse. Endorses subject chills overnight. Still with dry cough. Denies COLLINS, CP, Abdominal pain, N/V, dysuria, LE edema. - Trach placement at bedside today. consent obtained, family aware. PEG placement on per Dr. Pardo. OBJECTIVE: Vital Signs Intake & Output 11/04/17 11/05/17 11/06/17 11/07/17 23:59 23:59 23:59 23:59 Intake Total 2156 2631.2 1870.4 Output Total 400 1100 550 Balance 1756 1531.2 1320.4 Weight 71.242 kg 71.2 kg 72.303 kg Period Temp Pulse Resp BP Sys/Sutton Pulse Ox Last 24 Hr 97.6 F-99.8 F 64-98 16-24 89-164/46-74 96-100 GENERAL: The patient is awake, alert, and fully oriented, appears uncomfortable. More somnolent today. HEAD: Normal with no signs of trauma. Bitemporal wasting EYES: PERRL, extraocular movements intact, sclera anicteric, conjunctiva clear. No ptosis. ENT: Ears normal, nares patent, oropharynx clear without exudates, moist mucous membranes. NECK: Trachea midline, full range of motion, supple. LUNGS: Coarse mechanical breath sounds. Diffuse crackles BL. No wheezes, no accessory muscle use HEART: 2/6 systolic ejection murmur at LUSB. Regular rate and rhythm, S1, S2 without murmur, rub or gallop. ABDOMEN: Soft, nontender, nondistended, normoactive bowel sounds, no guarding, no rebound, no hepatosplenomegaly, no masses. EXTREMITIES: No edema in LEs. 2+ pulses, warm, well-perfused NEUROLOGICAL: Cranial nerves II through XII grossly intact. Normal speech, gait not observed. PSYCH: Normal mood, normal affect. Appears depressed. SKIN: Warm, dry, normal turgor, no rashes or lesions noted Laboratory Results - last 24 hr CBC, BMP 11/07/17 05:40 11/07/17 05:40 11/06/17 05:45 11/06/17 05:45 01/18/18 01/18/18 01/19/18 10:56 21:51 06:14 WBC RBC Hgb Hct MCV MCH MCHC RDW Plt Count MPV PTT (Actin FS) Sodium Potassium Chloride Carbon Dioxide Anion Gap BUN Creatinine Creat Clearance w eGFR POC Glucometer 162.41510 181.11152 169.97147 Random Glucose Calcium Total Bilirubin AST ALT Alkaline Phosphatase C-Reactive Protein Total Protein Albumin 11/03/17 11/03/17 11/03/17 11:17 17:02 21:05 WBC RBC Hgb Hct MCV MCH MCHC RDW Plt Count MPV PTT (Actin FS) Sodium Potassium Chloride Carbon Dioxide Anion Gap BUN Creatinine Creat Clearance w eGFR POC Glucometer 204.26089 229.13623 149.01165 Random Glucose Calcium Total Bilirubin AST ALT Alkaline Phosphatase C-Reactive Protein Total Protein Albumin 11/04/17 11/04/17 11/04/17 05:51 12:29 17:33 WBC RBC Hgb Hct MCV MCH MCHC RDW Plt Count MPV PTT (Actin FS) Sodium Potassium Chloride Carbon Dioxide Anion Gap BUN Creatinine Creat Clearance w eGFR POC Glucometer 251.53957 357.80056 > 400 Random Glucose Calcium Total Bilirubin AST ALT Alkaline Phosphatase C-Reactive Protein Total Protein Albumin 11/04/17 11/06/17 11/06/17 23:01 05:45 05:45 WBC 9.7 RBC 2.55 L Hgb 8.2 L Hct 25.9 L MCV 101.5 H MCH 32.2 MCHC 31.7 L RDW 16.5 H Plt Count 160 MPV 10.2 PTT (Actin FS) Sodium 137 Potassium 4.3 Chloride 95 L Carbon Dioxide 39 H Anion Gap 3 L BUN 19 H D Creatinine 0.6 L Creat Clearance w eGFR > 60 POC Glucometer 243.09046 Random Glucose 261 H D Calcium 7.8 L Total Bilirubin 0.4 D AST 10 L ALT 12 Alkaline Phosphatase 66 C-Reactive Protein 15.7 H Total Protein 6.8 Albumin 2.3 L 11/06/17 11/06/17 11/06/17 05:45 15:35 22:27 WBC RBC Hgb Hct MCV MCH MCHC RDW Plt Count MPV PTT (Actin FS) 29.8 D 78.9 H D Sodium Potassium Chloride Carbon Dioxide Anion Gap BUN Creatinine Creat Clearance w eGFR POC Glucometer 223.57703 Random Glucose Calcium Total Bilirubin AST ALT Alkaline Phosphatase C-Reactive Protein Total Protein Albumin Active Medications Generic Name Dose Route Start Last Admin Trade Name Freq PRN Reason Stop Dose Admin Acetaminophen 650 mg 10/19/17 22:58 11/02/17 22:14 Tylenol - PO 650 mg Q6H PRN Administration FEVER OR PAIN Artificial Tears 1 applic 11/03/17 22:00 11/06/17 22:22 Artificial Tears Ointment - OU 1 applic HS SONAL Administration Chlorhexidine Gluconate 1 applic 10/17/17 22:00 11/06/17 22:23 Hibiclens For Decolonization - TP 1 applic HS SONAL Administration Dextrose 25 gm 11/01/17 21:49 11/02/17 08:47 D50w (Vial) - IVPUSH 25 gm DAILY PRN Administration hypoglycemia Heparin Sodium (Porcine) 1,000 unit 10/20/17 17:59 10/26/17 12:54 Heparin - IVPUSH 1,000 unit PRN PRN Administration Heparin Heparin Sodium (Porcine) 5,000 unit 10/20/17 17:59 11/06/17 09:34 Heparin - IVPUSH 5,000 unit PRN PRN Administration Heparin Fentanyl 500 mcg/ Sodium 100 mls @ 10 mls/hr 11/03/17 16:00 11/06/17 18:54 Chloride IVPB 10 mls/hr TITR SONAL Administration Protocol 50 MCG/HR Propofol 1,000,000 mcg in 100 mls @ 4.275 mls/hr 11/04/17 19:00 11/06/17 19: 00 Diprivan - IVPB 10 mcg/kg/min TITR SONAL 4.275 mls/hr Protocol Administration 10 MCG/KG/MIN Insulin Aspart 1 vial 10/17/17 16:30 11/06/17 22:30 Novolog Vial Sliding Scale - SQ 2 units ACHS SONAL Administration Protocol Nicotine 7 mg 10/19/17 12:45 11/06/17 09:34 Nicoderm Patch - TD 7 mg DAILY SONAL Administration Nystatin 500,000 units 10/30/17 12:00 11/07/17 00:35 Nystatin Oral Suspension - PO 11/09/17 11:59 500,000 units Q6HPO SONAL Administration Pantoprazole Sodium 40 mg 11/04/17 10:15 11/06/17 09:34 Protonix Iv IVPUSH 40 mg DAILY SONAL Administration Prednisone 40 mg 10/24/17 10:00 11/06/17 09:34 Deltasone - PO 40 mg DAILY SONAL Administration Saliva Substitute 1 applic 11/02/17 15:45 11/06/17 09:35 Mouthkote Solution - MM 1 applic DAILY SONAL Administration Microbiology 10/21/17 06:00 Serum Cryptococcal Antigen - Final 10/19/17 19:30 Sputum - Expectorated Gram Stain - Final 10/19/17 19:30 Sputum - Expectorated Sputum Culture - Final NORMAL RESPIRATORY TOYIN 10/17/17 10:10 Blood - Peripheral Venous Blood Culture - Final NO GROWTH AFTER 5 DAYS INCUBATION 10/17/17 10:10 Blood - Peripheral Venous Blood Culture - Final NO GROWTH AFTER 5 DAYS INCUBATION 10/17/17 13:57 Urine - Urine Clean Catch Urine Culture - Final NO GROWTH OBTAINED 10/17/17 13:57 Urine For Antigen Detection Legionella Antigen - Final 10/17/17 13:57 Urine For Antigen Detection Streptococcus pneumoniae Antigen (M - Final 10/17/17 10:25 Nasopharyngeal Swab Influenza Types A,B Antigen ([facility]) - Final 10/17/17 10:25 Nasopharyngeal Swab - Final Recent imaging: CXR 10/21/17 - Since 10/30/2017, the ARDS pattern has diminished minimally. Follow- up recommended. CT Abdomen 10/31 - The gallbladder demonstrates no definite CT pathology. There is nonspecific minimal to mild intrahepatic biliary tract dilatation. Clinical/ laboratory correlation is suggested as well as with follow-up CT. Dilatation of the main pancreatic duct as noted above. Pancreatic ductal dilatation was also noted on a 2013 ultrasound exam. Several small pancreatic head calcifications are seen suggestive of chronic calcific pancreatitis. No gross mass lesion is identified. Correlate with MRI/MRCP when the patient's clinical condition permits. No CT evidence of acute pancreatitis. Mild acute pancreatitis is frequently not demonstrable on CT or MRI. The partially imaged lower chest demonstrates prominent bilateral interstitial thickening with relative peripheral sparing - ? Noncardiogenic edema, infectious versus noninfectious pneumonitis, hemorrhage. Correlate clinically. This finding may be somewhat increased in comparison to a chest CT exam of 10/20/2017. No pleural effusion is seen. Bibasilar bronchiectasis. There is partial imaging of nonspecific mediastinal lymphadenopathy (as described on chest CT). Prominent atherosclerotic vascular calcifications. Mild to moderate L1 and mild L5 vertebral body compression fractures are noted which appear chronic. No bony retropulsion is seen. The visualized osseous structures appear to be diffusely demineralized. Clinical/laboratory correlation is suggested. Additional evaluation utilizing bone densitometry/DEXA scan may be considered. CXR 11/01 - Since a prior study of 10/31/2017, extensive opacification is identified throughout the lung james with little significant change. This is consistent with ARDS. No pleural effusions have developed. CXR 11/02 - No significant change from prior cxr. Still with BL reticulonodular diffuse opacification. CXR 11/05 - No significant change. BL reticulonodular pattern. CXR 11/06 - No change overall CXR 11/07 - Trach in place. Diffuse BL interstitial and possible alveolar changes. No pneumo or pleural effusions. 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 #Acute hypoxic respiratory failure - likely secondary to ILD of unknown etiology. Pt w/ prior smoking hx, worked in factory. Presumptive diagnosis ILD secondary to pneumonitis? Pt intubated on 11/03, tolerated well over the weekend - Trach placed at bedside. Uncomplicated procedure. - PEG placement on - Consider lung bx for further workup of etiology of lung dz - Pt intubated, sedated, NG tube for feeding - Insurance denied coverage for LTACH placement - C/w prednisone - fentanyl, midazolam for sedation - Xanax prn for anxiety - Once stable, will require transfer to tertiary care center for transplant evaluation -tylenol for chest pain #Extensive RLE DVT- IVC filter 10/20, thrombectomy 10/24; Still on heparin gtt - Continue heparin gtt protocol - Will transition to NOACs after PEG placement #Acute diastolic CHF failure - does not appear volume overloaded clinically - No lasix today; Cr normalized at 0.6 - Cardiac monitoring #macrocytic Anemia - 8.6 today, uptrending; MCV 102; Vit B12 normal - Trend H/H - Transfuse at <7 - folate normal #IDDM- A1c 7.4 - No further episodes of hypoglycemia; Dextrose push PRN - Hold home oral hypoglycemics; monitor for signs of hypoglycemia - ISS - BGM q4h #BPH -c/w home flomax #nicotine dependence -nicotine patch -smoking cessation PPX Heparin gtt IV PPI FEN PO fluids Daily BMPs Diabetic diet Pt denied coverage for LTACH. Will likely require transfer to tertiary care center for transplant evaluation once stabilized. . Plan discussed with attending, Dr. Leroy Reeves, PGY1 Visit type - Emergency Visit Emergency Visit: Yes ED Registration Date: 10/17/17 Care time: The patient presented to the Emergency Department on the above date and was hospitalized for further evaluation of their emergent condition. - New Patient This patient is new to me today: No - Critical Care Critical Care patient: Yes Total Critical Care Time (in minutes): 35 Critical Care Statement: The care of this patient involved high complexity decision making to prevent further life threatening deterioration of the patient 's condition and/or to evaluate & treat vital organ system(s) failure or risk of failure.
[2017-11-07 06:18] LABS: BASO % 0.5 % (0-2.0); EOS % 2.2 % (0-4.5); HEMOGLOBIN 8.6 GM/dL (11.7-16.9); MCH 32.4 pg (25.7-33.7); MCHC 31.7 g/dl (32.0-35.9); MEAN CELL VOLUME 102.2 fl (80-96); MEAN PLT VOLUME 10.1 fl (7.5-11.1); MONO % 7.8 % (3.8-10.2); NEUT % 70.5 % (42.8-82.8); PLATELET COUNT 170 K/MM3 (134-434); RBC 2.64 M/mm3 (4.00-5.60); RDW 16.3 % (11.9-15.9); WHITE BLOOD COUNT 10.2 K/mm3 (4.0-10.0)
[2017-11-07] MEDS: INSULIN SLIDING SCALE (NOVOLOG) 1 VIAL SQ SCH ×4 (06:23→22:33)
[2017-11-07] MEDS ORDERED: PT OWN MED DRAWER 7, Y5N ONE ×2 (06:28→11:01)
[2017-11-07] MEDS ORDERED: INSULIN (NOVOLOG) ASPART 100 UNITS/ML 10ML VIAL ONE (06:29)
[2017-11-07 06:40] LABS: ALBUMIN 2.3 g/dl (3.4-5.0); ANION GAP 2 (8-16); BILIRUBIN,TOTAL 0.4 mg/dL (0.2-1.0); BLOOD UREA NITROGEN 17 mg/dL (7-18); CHLORIDE 97 mmol/L (98-107); CO2 39 mmol/L (21-32); CREATININE 0.5 mg/dL (0.7-1.3); GLUCOSE,RANDOM 110 mg/dL (74-106); POTASSIUM 4.8 mmol/L (3.5-5.1); SGOT/AST 8 U/L (15-37); SGPT/ALT 13 U/L (12-78); SODIUM 138 mmol/L (136-145); TOT PROT 7.1 g/dl (6.4-8.2)
[2017-11-07 06:41] LABS: ALK PHOS 62 U/L (45-117)
--- NOTE | 2017-11-07 07:44 | MSN ---
Progress Note (short form) - Note Progress Note: Subjective: Patient was seen this morning and complains that his breathing has been worse. Patient denies any abdominal pain, chest pain, N/V/D. Objective: Last Vital Signs Temp Pulse Resp BP Pulse Ox 98.8 F 74 27 H 133/59 100 11/07/17 02:00 11/07/17 02:00 11/07/17 06:30 11/07/17 02:00 11/06/17 22:00 Intake & Output 11/04/17 11/05/17 11/06/17 11/07/17 23:59 23:59 23:59 23:59 Intake Total 2156 2631.2 1870.4 Output Total 400 1100 550 Balance 1756 1531.2 1320.4 Weight 157 lb 1 oz 156 lb 15.506 oz 159 lb 6.4 oz General: Thin man who appears fatigued. HEENT: NG tube in place, patient is intubated. trachea midline. Heart: RRR. distant heart sounds. No rubs, murmurs or gallops appreciated. Lungs: Auscultated anteriorly. Crackles appreciated at the lung bases. Wheezing appreciated throughout Abdomen: scaphoid, hypoactive bowel sounds. abdominal mesh visible and abdominal aorta apparent. Extremities: pulses 2+ on B/L UE and LE. No edema noted. CBC, BMP 11/07/17 05:40 11/07/17 05:40 Abnormal Lab Results 11/06/17 11/06/17 11/07/17 05:45 15:35 05:40 WBC 10.2 H RBC 2.64 L Hgb 8.6 L Hct 27.0 L MCV 102.2 H MCHC 31.7 L RDW 16.3 H PTT (Actin FS) 78.9 H D Chloride 95 L Carbon Dioxide 39 H Anion Gap 3 L BUN 19 H D Creatinine 0.6 L Random Glucose 261 H D Calcium 7.8 L AST 10 L C-Reactive Protein 15.7 H Albumin 2.3 L 11/07/17 05:40 WBC RBC Hgb Hct MCV MCHC RDW PTT (Actin FS) Chloride 97 L Carbon Dioxide 39 H Anion Gap 2 L BUN Creatinine 0.5 L Random Glucose 110 H D Calcium 8.0 L AST 8 L C-Reactive Protein Albumin 2.3 L Imaging: - chest x-ray 11/06/17: no changes - chest x-ray 11/03/17: ARDS pattern - chest x-ray 11/02/17: no change - chest x-ray 11/01/17: extensive opacification throughout with little significant changes. consistent with ARDS. - abdominal CT 10/31/17: Several small pancreatic head calcification suggestive of chronic calcific pancreatitis. no acute pancreatitis. Lungs b/l internstitial thickening with relative peripheral sparing. Noncardiogenic edema infx vs noninfectious pneumonitis, hemorrhage. Bibasilae bronchiectasis. Nonspecific mediastinal lymphadenopathy. Prominent atherosclerotic vascular calcifications. Mild chronic L1-L5 body compression fractures. osseous structures diffusely de-mineralized. - chest x-ray 10/31/17: Since 10/30/2017, the ARDS pattern has diminished minimally - chest x-ray 10/30/17: Since 10/29/2017, the diffuse airspace changes are again noted. This has the appearance of an ARDS pattern. Follow-up recommended. - chest x-ray 10/29/17: Since 10/28/2017, the diffuse airspace changes are again noted which could indicate ARDS. - Leg US 10/20/17: DVT noted. There is occlusive thrombosis within the common, deep and superficial femoral veins, as well as the popliteal and posterior tibial veins. These veins are incompressible, an additional sign of DVT. The greater saphenous vein is patent, however, the lesser saphenous vein is also thrombosed. - Abd US 10/18/17: Moderate to marked gallbladder contraction is noted which may be physiologic in nature versus secondary to chronic cholecystitis. If clinically indicated correlate with two-week follow-up sonography with optimal pre - exam fasting. Gallbladder contraction was also described on a previous ultrasound exam of 03/25/2013. No sonographic evidence of acute cholecystitis. There is no obvious evidence of cholelithiasis allowing for previously described gallbladder contraction. No definite biliary tract dilatation is seen. The partially visualized pancreas demonstrates no gross sonographic abnormality. However, on the 2012 ultrasound study dilatation of the main pancreatic duct was described with a 0.5 cm diameter. Given this apparent finding on the prior study additional evaluation utilizing MRI/MRCP is suggested when the patient's clinical condition permits (unless already performed at a different facility). - Echo 10/17/17: normal left ventricle with mild reduced systolic function, EF 45. RV normal. mild to moderate mitral valve thickening. moderate mitral regurgitation. mild tricuspid regurgitation. mild pulmonary HTN. mild arotic steclerosis. no aortic regurgitation. no pericardial effusion. Assessment/ Plan: 62yo M smoker with PMH of NIDDM, PUD, BPH admitted with respiratory failure, severe sepsis, CHF who had extensive right LE DVT s/p IVC filter 10/20/17 and s/p thrombectomy 10/24/17. Patient had increased respiratory distress and was intubated on 11/03/17. # Hypoxic respiratory failure possibly from interstitial lung dz with pneumonitis, or CHF. etiology unknown. - intubated on 11/03/17 - vent setting: FiO2 70, rate 18, peak flow 60, Tv 400, PEEP 7, %O2 90 - tracheostomy today - NOACs after trache. - Prednisone (Deltasone -) 40 mg PO DAILY SONAL - LTAC denied - consider PEG tube # NIDDM. A1C 7.4. - diabetic diet. tube feeds osmolite. 1100mL/24 hrs, 1320 kcal. - Insulin Aspart (Novolog Vial Sliding Scale -) 1 vial SQ ACHS SONAL - Insulin Detemir (Levemir Vial) 10 units SQ DAILY SONAL - discontinued. # RUQ abd pain- unchanged - U/S on 10/18 was negative - abd CT negative for acute pathology # thrombocytopenia - possibly due to sepsis - resolved - HIT antibody sent and is unequivocal. Level 0.473 (N: <0.4) likely falsely elevated. KAY negative- HIT ruled out. # RLE pain secondary to DVT s/p IV filter on 10/20/17 and thrombectomy on 10/24/17 - Acetaminophen (Tylenol -) 650 mg PO Q6H PRN fever/ pain - continue heparin # severe sepsis likely secondary to CAP - bp stable. not on pressors. - Azithromycin and Ceftriaxone 7 days completed on 10/24/17 - blood cultures and sputum culture negative # macrocytic anemia - continue to monitor # BPH - continue home med of Tamsulosin 0.4mg PO daily # FEN - F: NG tube - E: continue to monitor - N: tube feeds- osmolite. 1100mL/24hr 1320 kcal #DVT prophylaxis - heparin drip
--- NOTE | 2017-11-07 08:36 | PN ---
Physical Exam: SUBJECTIVE: Patient seen and examined Patient is a 62 year old male who was BIBEMS for hypoxic respiratory failure eating food, off of pressers, but with RLE DVT without PE s/p IVC filter, thrombectomy, catheter directed heparin infusion, requiring intubation. Patient denies any complaints this morning. Scheduled to have trach today. Otherwise no acute events overnight. OBJECTIVE: Vital Signs Period Temp Pulse Resp BP Sys/Sutton Pulse Ox Last 24 Hr 97.6 F-99.8 F 64-98 16-27 89-164/46-74 96-100 GENERAL: The patient is awake, and intubated, in no acute distress. HEAD: Normal with no signs of trauma. EYES: sclera anicteric, conjunctiva clear. No ptosis. ENT: oropharynx clear without exudates, moist mucous membranes. NECK: Trachea midline, full range of motion, supple. LUNGS: Breath sounds equal, Bilateral rales auscultated on exam, no wheezes, no accessory muscle use. HEART: Regular rate and rhythm, S1, S2 without murmur, rub or gallop. ABDOMEN: Soft, nontender, nondistended, normoactive bowel sounds, no guarding, no rebound, no hepatosplenomegaly, no masses. EXTREMITIES: 2+ pulses, warm, well-perfused, NEUROLOGICAL:Intubated gait not observed. PSYCH: Normal mood, normal affect. SKIN: Warm, dry, normal turgor, no rashes or lesions noted Laboratory Results - last 24 hr 11/06/17 11/06/17 11/06/17 05:45 05:45 15:35 WBC RBC Hgb Hct MCV MCH MCHC RDW Plt Count MPV Neutrophils % Lymphocytes % Monocytes % Eosinophils % Basophils % PTT (Actin FS) 29.8 D 78.9 H D Sodium 137 Potassium 4.3 Chloride 95 L Carbon Dioxide 39 H Anion Gap 3 L BUN 19 H D Creatinine 0.6 L Creat Clearance w eGFR > 60 POC Glucometer Random Glucose 261 H D Calcium 7.8 L Total Bilirubin 0.4 D AST 10 L ALT 12 Alkaline Phosphatase 66 C-Reactive Protein 15.7 H Total Protein 6.8 Albumin 2.3 L 11/06/17 11/07/17 11/07/17 22:27 05:40 05:40 WBC 10.2 H RBC 2.64 L Hgb 8.6 L Hct 27.0 L MCV 102.2 H MCH 32.4 MCHC 31.7 L RDW 16.3 H Plt Count 170 MPV 10.1 Neutrophils % 70.5 Lymphocytes % 19.0 D Monocytes % 7.8 Eosinophils % 2.2 D Basophils % 0.5 PTT (Actin FS) Sodium 138 Potassium 4.8 Chloride 97 L Carbon Dioxide 39 H Anion Gap 2 L BUN 17 Creatinine 0.5 L Creat Clearance w eGFR > 60 POC Glucometer [phone] Random Glucose 110 H D Calcium 8.0 L Total Bilirubin 0.4 AST 8 L ALT 13 Alkaline Phosphatase 62 C-Reactive Protein Total Protein 7.1 Albumin 2.3 L Active Medications Generic Name Dose Route Start Last Admin Trade Name Freq PRN Reason Stop Dose Admin Acetaminophen 650 mg 10/19/17 22:58 11/02/17 22:14 Tylenol - PO 650 mg Q6H PRN Administration FEVER OR PAIN Artificial Tears 1 applic 11/03/17 22:00 11/06/17 22:22 Artificial Tears Ointment - OU 1 applic HS SONAL Administration Chlorhexidine Gluconate 1 applic 10/17/17 22:00 11/06/17 22:23 Hibiclens For Decolonization - TP 1 applic HS SONAL Administration Dextrose 25 gm 11/01/17 21:49 11/02/17 08:47 D50w (Vial) - IVPUSH 25 gm DAILY PRN Administration hypoglycemia Heparin Sodium (Porcine) 1,000 unit 10/20/17 17:59 10/26/17 12:54 Heparin - IVPUSH 1,000 unit PRN PRN Administration Heparin Heparin Sodium (Porcine) 5,000 unit 10/20/17 17:59 11/06/17 09:34 Heparin - IVPUSH 5,000 unit PRN PRN Administration Heparin Fentanyl 500 mcg/ Sodium 100 mls @ 10 mls/hr 11/03/17 16:00 11/06/17 18:54 Chloride IVPB 10 mls/hr TITR SONAL Administration Protocol 50 MCG/HR Propofol 1,000,000 mcg in 100 mls @ 4.275 mls/hr 11/04/17 19:00 11/07/17 00: 00 Diprivan - IVPB 5 mcg/kg/min TITR SONAL 2.137 mls/hr Protocol Titration 10 MCG/KG/MIN Insulin Aspart 1 vial 10/17/17 16:30 11/07/17 06:23 Novolog Vial Sliding Scale - SQ Not Given ACHS SONAL Protocol Nicotine 7 mg 10/19/17 12:45 11/06/17 09:34 Nicoderm Patch - TD 7 mg DAILY SONAL Administration Nystatin 500,000 units 10/30/17 12:00 11/07/17 06:12 Nystatin Oral Suspension - PO 11/09/17 11:59 500,000 units Q6HPO SONAL Administration Pantoprazole Sodium 40 mg 11/04/17 10:15 11/06/17 09:34 Protonix Iv IVPUSH 40 mg DAILY SONAL Administration Prednisone 40 mg 10/24/17 10:00 11/06/17 09:34 Deltasone - PO 40 mg DAILY SONAL Administration Saliva Substitute 1 applic 11/02/17 15:45 11/06/17 09:35 Mouthkote Solution - MM 1 applic DAILY SONAL Administration ASSESSMENT/PLAN: Patient is a 62 year old male who was BIBEMS for hypoxic respiratory failure eating food, off of pressers, but with RLE DVT without PE s/p IVC filter, thrombectomy, catheter directed heparin infusion, requiring intubation. Neuro: #Nicotine Dependence: - Nicotine patch 7 MG daily #Intubation -Patient on propofol and fentanyl for sedation. CV: #Septic Shock vs. iatrogenic hypovolemic shock vs. cardiogenic shock: original presentation - Tachycardia of 105, Respiratory rate 26, Fever of 101, WBC of 11.7, Hypotension with SBP <90 with no response to IV fluids, and Lactic Acidosis of 3.6. Source unclear but likely PNA. Off pressers - Resolved #DVT: U/S positive for Right calf DVT, s/p thrombectomy - s/p IR direct infusion, doing well - Hepirin drip held this morning for trach placement. #Chest Pain: - EKG unchanged Pulm: #Acute Hypoxic Respiratory Failure: Legionalla and strep negative. Zosyn and Vancomycin given in ED. Patient denies any recent hospitalization or abx use. Original chest X-ray reveals bilateral multifocal inflammatory changes (ARDS) vs. congestive heart failure. given JVD and crackles it is likely the later. treated for CAP. ECHO showing mild mitral regurg, mild/mod tricuspid regurg, mild PHTN. CT demonstrating diffuse interstitial lung disease AND XRs evidencing occasional volume overload. We discussed with the family the possibility that the patient will require tracheostomy in the future given his continued ventilation requirements. The family will discuss amongst themselves and the patient regarding whether to proceed with tracheostomy or continue with continuous bipap and ltach placement and decided to proceed with intubation for possible tracheostomy. - Patient to likely have bedside trach placed today. - Continue Prednisone 40 daily - Patient intubated with an 8.0 ET tube 22cm at the lip. - Will require trach given his continued respiratory requirements. - All cultures negative ID: likely ILD with GGO vs. infectious pattern. HIV, influenza, strep, legionella neg. BCx NGTD, sputum Cx NGTD. Completed Azithromycin and Ceftriaxone for suspected CAP. All cultures neg and ID tests neg including cryptococcal - ID recs appreciated Renal: - CTM - Avoid nephrotoxic medications Heme: #Macrocytic Anemia: Hemoglobin 9.2 with MCV 101. Ferritin 882 (likely reactive) -Hb stable Endo #NIDDM: -Patient is no longer having hypoglycemic episodes requiring D50 pushes -Will continue to monitor BGM and provided D50 pushes as needed. -ISS : #BPH -Patient on Tamsulosin 0.4mg daily GI: #Peptic Ulcer Disease: History of mesh according to family and had Endoscopy two months. Was given medications according to patients daughter and completed course. - on PPI FEN -Electrolytes Repleted as needed. -Diabetic diet while on HFNC PPX: - Hep drip held for trach placement. - Protonix Disposition: Continued ICU care. Visit type - Emergency Visit Emergency Visit: No - New Patient This patient is new to me today: No - Critical Care Critical Care patient: Yes Total Critical Care Time (in minutes): 45 Critical Care Statement: The care of this patient involved high complexity decision making to prevent further life threatening deterioration of the patient 's condition and/or to evaluate & treat vital organ system(s) failure or risk of failure.
[2017-11-07] MEDS ORDERED: ROCURONIUM BROMIDE 50 MG/5 ML VIAL IV ONE (09:31)
[2017-11-07] MEDS ORDERED: ROCURONIUM BROMIDE 50 MG/5 ML VIAL IVPUSH ONE (09:38)
[2017-11-07] MEDS ORDERED: LIDOCAINE HCL 1%, 10 MG/ML (20ML VIAL) ONE (10:02)
[2017-11-07] MEDS ORDERED: LIDOCAINE HCL 1%, 10 MG/ML (20ML VIAL) INF ONE (10:55)
[2017-11-07] MEDS: PANTOPRAZOLE SODIUM 40 MG VIAL IVPUSH SCH (12:28)
[2017-11-07] MEDS: predniSONE 20 MG TABLET (UD) PO SCH (12:29)
[2017-11-07] MEDS: LYTES/YERBA SANTA 240 ML BOTTLE MM SCH (12:30)
[2017-11-07] MEDS: NICOTINE 7 MG/24 HOURS TOPICAL PATCH TD SCH (12:31)
--- NOTE | 2017-11-07 12:38 | CON.GI ---
Consult Consult Specialty:: GI Reason for Consultation:: PEG - History of Present Illness History of Present Illness: Chart reviewed. Events noted. A 62 yom, s/p recent tracheostomy, with multiple, acute medical issues managed n the ICU settings, requires alternative, long-term means of receiving nutrition. Home Medication List Medication Instructions Recorded Confirmed Type Glipizide [Glucotrol Xl] 0 mg PO ASDIR 10/17/17 10/17/17 History Metformin HCl 0 mg PO ASDIR 10/17/17 10/17/17 History Tamsulosin HCl 0.4 mg PO DAILY 10/17/17 10/17/17 History Active Medications Generic Name Dose Route Start Last Admin Trade Name Freq PRN Reason Stop Dose Admin Acetaminophen 650 mg 10/19/17 22:58 11/02/17 22:14 Tylenol - PO 650 mg Q6H PRN Administration FEVER OR PAIN Artificial Tears 1 applic 11/03/17 22:00 11/06/17 22:22 Artificial Tears Ointment - OU 1 applic HS SONAL Administration Chlorhexidine Gluconate 1 applic 10/17/17 22:00 11/06/17 22:23 Hibiclens For Decolonization - TP 1 applic HS SONAL Administration Dextrose 25 gm 11/01/17 21:49 11/02/17 08:47 D50w (Vial) - IVPUSH 25 gm DAILY PRN Administration hypoglycemia Heparin Sodium (Porcine) 1,000 unit 10/20/17 17:59 10/26/17 12:54 Heparin - IVPUSH 1,000 unit PRN PRN Administration Heparin Heparin Sodium (Porcine) 5,000 unit 10/20/17 17:59 11/06/17 09:34 Heparin - IVPUSH 5,000 unit PRN PRN Administration Heparin Fentanyl 500 mcg/ Sodium 100 mls @ 10 mls/hr 11/03/17 16:00 11/06/17 18:54 Chloride IVPB 10 mls/hr TITR SONAL Administration Protocol 50 MCG/HR Insulin Aspart 1 vial 10/17/17 16:30 11/07/17 06:23 Novolog Vial Sliding Scale - SQ Not Given ACHS SONAL Protocol Nicotine 7 mg 10/19/17 12:45 11/07/17 12:31 Nicoderm Patch - TD 7 mg DAILY SONAL Administration Nystatin 500,000 units 10/30/17 12:00 11/07/17 12:28 Nystatin Oral Suspension - PO 11/09/17 11:59 500,000 units Q6HPO SONAL Administration Pantoprazole Sodium 40 mg 11/04/17 10:15 11/07/17 12:28 Protonix Iv IVPUSH 40 mg DAILY SONAL Administration Prednisone 40 mg 10/24/17 10:00 11/07/17 12:29 Deltasone - PO 40 mg DAILY SONAL Administration Saliva Substitute 1 applic 11/02/17 15:45 11/07/17 12:30 Mouthkote Solution - MM 1 applic DAILY SONAL Administration Current Active Problems Acute respiratory failure with hypoxia (Acute) DVT - History Source History Provided By: Medical Record - Past Medical History Endocrine: Yes: Diabetes Mellitus - Alcohol/Substance Use Hx Alcohol Use: No - Smoking History Smoking history: Never smoked Aproximately how many cigarettes per day: 2 Home Medications - Allergies Allergies/Adverse Reactions: Allergies Allergy/AdvReac Type Severity Reaction Status Date / Time No Known Allergies Allergy Verified 10/17/17 09:56 - Home Medications Home Medications: Ambulatory Orders Glipizide [Glucotrol Xl] 0 mg PO ASDIR 10/17/17 Metformin HCl 0 mg PO ASDIR 10/17/17 Tamsulosin HCl 0.4 mg PO DAILY 10/17/17 Family Disease History - Family Disease History Family History: Unremarkable Review of Systems Findings/Remarks: as per HPI, H&P Physical Exam-GI Vital Signs: Vital Signs Temperature 98.0 F 11/07/17 10:00 Pulse Rate 86 11/07/17 10:00 Respiratory Rate 24 11/07/17 12:18 Blood Pressure 90/58 11/07/17 10:00 O2 Sat by Pulse Oximetry (%) 97 11/07/17 09:39 Constitutional: Yes: Thin Gastrointestinal Inspection: No: Ascites, Distention ...Palpate: Yes: Soft. No: Firm/Rigid, Guarding, Mass Neurological: Yes: Alert (self) Labs: CBC, BMP 11/07/17 05:40 11/07/17 05:40 INR, PTT INR 1.14 (0.82-1.09) 10/26/17 05:15 Laboratory Results - last 24 hr 11/06/17 11/06/17 11/07/17 15:35 22:27 05:40 WBC 10.2 H RBC 2.64 L Hgb 8.6 L Hct 27.0 L MCV 102.2 H MCH 32.4 MCHC 31.7 L RDW 16.3 H Plt Count 170 MPV 10.1 Neutrophils % 70.5 Lymphocytes % 19.0 D Monocytes % 7.8 Eosinophils % 2.2 D Basophils % 0.5 PTT (Actin FS) 78.9 H D Sodium Potassium Chloride Carbon Dioxide Anion Gap BUN Creatinine Creat Clearance w eGFR POC Glucometer [phone] Random Glucose Calcium Total Bilirubin AST ALT Alkaline Phosphatase Total Protein Albumin 11/07/17 05:40 WBC RBC Hgb Hct MCV MCH MCHC RDW Plt Count MPV Neutrophils % Lymphocytes % Monocytes % Eosinophils % Basophils % PTT (Actin FS) Sodium 138 Potassium 4.8 Chloride 97 L Carbon Dioxide 39 H Anion Gap 2 L BUN 17 Creatinine 0.5 L Creat Clearance w eGFR > 60 POC Glucometer Random Glucose 110 H D Calcium 8.0 L Total Bilirubin 0.4 AST 8 L ALT 13 Alkaline Phosphatase 62 Total Protein 7.1 Albumin 2.3 L Abnormal Lab Results 11/06/17 11/07/17 11/07/17 15:35 05:40 05:40 WBC 10.2 H RBC 2.64 L Hgb 8.6 L Hct 27.0 L MCV 102.2 H MCHC 31.7 L RDW 16.3 H PTT (Actin FS) 78.9 H D Chloride 97 L Carbon Dioxide 39 H Anion Gap 2 L Creatinine 0.5 L Random Glucose 110 H D Calcium 8.0 L AST 8 L Albumin 2.3 L Problem List - Problems (1) Failure to thrive Code(s): WIG9541 - (2) Failure to thrive in adult Code(s): R62.7 - ADULT FAILURE TO THRIVE (3) Acute respiratory failure with hypoxia Code(s): J96.01 - ACUTE RESPIRATORY FAILURE WITH HYPOXIA Assessment/Plan The pt requires long-term Non-PO nutritional support. Consent in chart ! Anticoagulation and steroids Plan PEG on Hold heparin 12 hrs prior to the procedure CBC, PT, PTT the morning of
--- NOTE | 2017-11-07 13:11 | OPR ---
Patient Name: Austin Hernandez MR#: [id number] Procedure Date: 11/07/2017 Preoperative Diagnosis: Respiratory failure. Postoperative Diagnosis: same. Procedure: 1. Percutaneous tracheostomy with #8 Shiley; 2. Bronchoscopy (performed by Dr. Souza). Indication: Respiratory failure; Surgeon(s): Evans Rosario MD Cosurgeon: landy Club Concierge Surgeon: landy. Anesthesia: General endotracheal; Findings: Abundant secretions. Specimens Sent: 1. na; Complications: none Drains / Tubes / Catheters: na Hardware / Implants: na Blood / Fluid Losses: minimal Post-Operative Condition: Stable. Indications: This patient is a 62 year-old male with respiratory failure referred for tracheostomy by Dr. Souza and the ICU team. The ICU team obtained informed consent from his family. Details of Procedure: The procedure was done at the bedside. We began with bronchoscopy to clear the airway for the procedure. This was done by Dr. Souza. After this, the neck was prepared and draped in standard fashion. We then made a transverse incision below the cricoid cartilage. We withdrew the endotracheal airway until we were close to the vocal cords. With the incision in place, we inserted the needle from the percutaneous bronchoscopy kit under direct bronchoscopic vision identifying approximately the 2nd to 3rd ring. We then passed a wire under vision. We then dilated up and inserted the tracheostomy. We put the cuff up and connected the ventilator. We placed the bronchoscope through the tracheostomy and then above. There was no active bleeding and the placement was good.
[2017-11-07] MEDS: HEPARIN SOD,PORK IN 0.45% NACL 25,000 UNITS/500 ML INFUS.BAG IVPB SCH ×2 (14:00→23:21)
--- NOTE | 2017-11-07 15:21 | PN ---
Teaching Attending Note Name of Resident: Evans Marie ATTENDING PHYSICIAN STATEMENT I saw and evaluated the patient. I reviewed the resident's note and discussed the case with the resident. I agree with the resident's findings and plan as documented. SUBJECTIVE: Patient seen and examined in the ICU. Remains intubated and sedated. AC Mode of vent. 70% FiO2 / 7 PEEP. No pressors CXR: No gross change OBJECTIVE: Intake & Output 11/04/17 11/05/17 11/06/17 11/07/17 23:59 23:59 23:59 23:59 Intake Total 2156 2631.2 1870.4 572 Output Total 400 1100 550 500 Balance 1756 1531.2 1320.4 72 Weight 157 lb 1 oz 156 lb 15.506 oz 159 lb 6.4 oz Last Vital Signs Temp Pulse Resp BP Pulse Ox 98 F 88 24 100/60 97 11/07/17 14:00 11/07/17 14:00 11/07/17 14:31 11/07/17 14:00 11/07/17 09:39 Active Medications Acetaminophen (Tylenol -) 650 mg PO Q6H PRN PRN Reason: FEVER OR PAIN Last Admin: 11/02/17 22:14 Dose: 650 mg Artificial Tears (Artificial Tears Ointment -) 1 applic OU HS SNOAL Last Admin: 11/06/17 22:22 Dose: 1 applic Chlorhexidine Gluconate (Hibiclens For Decolonization -) 1 applic TP HS SONAL Last Admin: 11/06/17 22:23 Dose: 1 applic Dextrose (D50w (Vial) -) 25 gm IVPUSH DAILY PRN PRN Reason: hypoglycemia Last Admin: 11/02/17 08:47 Dose: 25 gm Heparin Sodium (Porcine) (Heparin -) 1,000 unit IVPUSH PRN PRN PRN Reason: Heparin Last Admin: 10/26/17 12:54 Dose: 1,000 unit Heparin Sodium (Porcine) (Heparin -) 5,000 unit IVPUSH PRN PRN PRN Reason: Heparin Last Admin: 11/06/17 09:34 Dose: 5,000 unit Fentanyl 500 mcg/ Sodium (Chloride) 100 mls @ 10 mls/hr IVPB TITR SONAL; 50 MCG/ HR PRN Reason: Protocol Last Admin: 11/06/17 18:54 Dose: 10 mls/hr Insulin Aspart (Novolog Vial Sliding Scale -) 1 vial SQ ACHS [facility] PRN Reason: Protocol Last Admin: 11/07/17 06:23 Dose: Not Given Nicotine (Nicoderm Patch -) 7 mg TD DAILY [facility] Last Admin: 11/07/17 12:31 Dose: 7 mg Nystatin (Nystatin Oral Suspension -) 500,000 units PO Q6HPO [facility] Stop: 11/09/17 11:59 Last Admin: 11/07/17 12:28 Dose: 500,000 units Pantoprazole Sodium (Protonix Iv) 40 mg IVPUSH DAILY [facility] Last Admin: 11/07/17 12:28 Dose: 40 mg Prednisone (Deltasone -) 40 mg PO DAILY [facility] Last Admin: 11/07/17 12:29 Dose: 40 mg Saliva Substitute (Mouthkote Solution -) 1 applic MM DAILY [facility] Last Admin: 11/07/17 12:30 Dose: 1 applic Gen: Intubated and awake and responsive Heart: RRR Lung: basilar rhonchi Abd: soft, nontender Ext: no edema Laboratory Results - last 24 hr 11/06/17 11/06/17 11/07/17 15:35 22:27 05:40 WBC 10.2 H RBC 2.64 L Hgb 8.6 L Hct 27.0 L MCV 102.2 H MCH 32.4 MCHC 31.7 L RDW 16.3 H Plt Count 170 MPV 10.1 Neutrophils % 70.5 Lymphocytes % 19.0 D Monocytes % 7.8 Eosinophils % 2.2 D Basophils % 0.5 PTT (Actin FS) 78.9 H D Sodium Potassium Chloride Carbon Dioxide Anion Gap BUN Creatinine Creat Clearance w eGFR POC Glucometer [phone] Random Glucose Calcium Total Bilirubin AST ALT Alkaline Phosphatase Total Protein Albumin 11/07/17 05:40 WBC RBC Hgb Hct MCV MCH MCHC RDW Plt Count MPV Neutrophils % Lymphocytes % Monocytes % Eosinophils % Basophils % PTT (Actin FS) Sodium 138 Potassium 4.8 Chloride 97 L Carbon Dioxide 39 H Anion Gap 2 L BUN 17 Creatinine 0.5 L Creat Clearance w eGFR > 60 POC Glucometer Random Glucose 110 H D Calcium 8.0 L Total Bilirubin 0.4 AST 8 L ALT 13 Alkaline Phosphatase 62 Total Protein 7.1 Albumin 2.3 L Problem List - Problems (1) Acute respiratory failure with hypoxia Code(s): J96.01 - ACUTE RESPIRATORY FAILURE WITH HYPOXIA (2) Pneumonia Code(s): J18.9 - PNEUMONIA, UNSPECIFIED ORGANISM (3) Diabetes Code(s): E11.9 - TYPE 2 DIABETES MELLITUS WITHOUT COMPLICATIONS ASSESSMENT AND PLAN: Acute Hypoxic Respiratory Failure Pneumonia Sepsis Interstitial Lung Disease Acute Diastolic Heart Failure improved Acute Kidney Injury improving Lactic Acidosis resolved DM RLE DVT - ABX completed - Prednisone - taper FiO2 to keep SpO2 >90% - lasix as needed - monitor urine output, creatinine - monitor CXR - AC - For Trach / PEG Dr Souza Critical care time spent in reviewing chart, evaluating patient and formulating plan 35 min
--- NOTE | 2017-11-07 16:56 | PROC ---
Procedure Note Procedure: Fiberoptic Bronchoscopy Under informed consent a FOB was performed prior to the placement of a Percutaneous Tracheostomy. The bronchoscope was inserted via the ETT. There were thin but copious secretions noted in the ETT. The bronchoscope was advanced to the rolando which appeared sharp. The airways were inspected. Thin secretions were noted throughout. No endobronchial lesions were noted. The bronchoscope was then withdrawn into the ETT and remained in position during the placement of a Percutaneous Trach by CTS. The bronchoscope was then advanced through the Trach and confirmed excellent placement of the device.
--- NOTE | 2017-11-07 18:08 | PN ---
Teaching Attending Note Name of Resident: Dylon Reeves ATTENDING PHYSICIAN STATEMENT I saw and evaluated the patient. I reviewed the resident's note and discussed the case with the resident. I agree with the resident's findings and plan as documented. SUBJECTIVE:alert and awake, nods head to questions OBJECTIVE: Last Vital Signs Temp Pulse Resp BP Pulse Ox 98 F 88 26 H 150/88 97 11/07/17 16:00 11/07/17 16:00 11/07/17 16:25 11/07/17 16:00 11/07/17 09:39 General tachypnic, +bitemporal wasting, prominent clavicles CV S1 S2 RRR Lungs rhonchi diffusely, poor air entry extremities no pedal edema or tenderness ASSESSMENT AND PLAN: 62 yo M active smoker, pMHx of NIDDM, PUD, BPH admitted with acute hypoxic respiratory failure, and extensive RLE DVT 1. Acute hypoxic respiratory failure, suspect from ?ILD with pneumonitis- was on high flow oxygen for >2weeks and was s/p intubation 11/03. plan for trach today as unable to be weaned. on pred 40mg. on list for lung transplant at [facility] 2. RLE DVT- s/p IVC filter 10/20, thrombectmy 10/24. on heparin ggt. will convert to NOAC once no more procedures are planned 3. Acute diastolic heart failure- s/p intermittent lasix IV. no signs of volume overload. will hold for now 4. Sepsis, likely from PNA- completed abx course 5. MIRLANDE from sepsis- resolved 6. Thrombocytopenia- resolved. 7. continuous nicotine dependence- nicotine patch 8. cachexia- malnutrition evident by body habitus. tolerating NGT feeds. plan for PEG this week 9. PPX- ppi/hep ggt 10. spoke iwth daughter present at bedside. all questions answered. was denied by [facility] due to insurance denial. on transfer list for [facility] palliative care on board Total critical care time spent 35 min.
[2017-11-07] MEDS: CHLORHEXIDINE GLUCONATE 4% CLEANSER FOR DECOLONIZATION TP SCH (22:34)
[2017-11-07] MEDS: FENTANYL INJECTION 500 MCG in SODIUM CHLORIDE 90 ML IVPB SCH (22:34)
[2017-11-07] MEDS: MINERAL OIL/PETROLATUM,WHITE 3.5 GM TUBE OU SCH (22:36)
[2017-11-08] MEDS: NYSTATIN 500,000 UNITS/5 ML SUSPENSION PO SCH ×3 (00:55→12:03)
[2017-11-08] MEDS: INSULIN SLIDING SCALE (NOVOLOG) 1 VIAL SQ SCH ×4 (06:15→22:20)
--- NOTE | 2017-11-08 06:47 | PN ---
Physical Exam: SUBJECTIVE: Patient seen and examined by me this AM - Received trach yesterday, procedure uncomplicated, tolerated well. Pt still complaining of mild dyspnea, febrile overnight. Plan for PEG on with Dr. Pardo. No other overnight events. Denies COLLINS, CP, abdominal pain, N/V, dysuria, diarrhea, LE edema, back pain, rashes or new neuro symptoms. More alert today. - Per nursing, significant secretion via trach, occasionally desatting; Fio2 increased to 90% -Pt complaining of L sided CP during AM rounds, no radiation. Anterior chest painful to palpation. ACS unlikely. CXR, EKG, trops sent. ekg normal. OBJECTIVE: Vital Signs Intake & Output 11/05/17 11/06/17 11/07/17 11/08/17 23:59 23:59 23:59 23:59 Intake Total 2631.2 1870.4 612 Output Total 4183 550 9119 Balance 1531.2 1320.4 -588 Weight 71.2 kg 72.303 kg Period Temp Pulse Resp BP Sys/Sutton Pulse Ox Last 24 Hr 98 F-98.5 F 80-100 18-31 90-178/50-88 92-97 GENERAL: Middle age, cachectic man laying in bed, w/ trach, NG tube. HEAD: Normal with no signs of trauma. Bitemporal wasting EYES: PERRL, extraocular movements intact, sclera anicteric, conjunctiva clear. No ptosis. ENT: Ears normal, nares patent, oropharynx clear without exudates, moist mucous membranes. NECK: Trach collar in place, no significant erythema, swelling or purulent. Trachea midline, supple. No JVD noted. LUNGS: Mechanical breath sounds. Diffuse crackles BL. No wheezes, no accessory muscle use HEART: Still with 2/6 systolic ejection murmur at LUSB. Regular rate and rhythm , S1, S2 without murmur, rub or gallop. ABDOMEN: Soft, nontender, nondistended, normoactive bowel sounds, no guarding, no rebound, no hepatosplenomegaly, no masses. EXTREMITIES: No edema in LEs. 2+ pulses, warm, well-perfused NEUROLOGICAL: Cranial nerves II through XII grossly intact. Normal speech, gait not observed. PSYCH: Normal mood, normal affect. Appears depressed. SKIN: Warm, dry, normal turgor, no rashes or lesions noted Laboratory Results - last 24 hr CBC, BMP 11/08/17 06:35 11/08/17 06:35 11/07/17 05:40 11/07/17 05:40 11/06/17 11/06/17 11/06/17 05:59 11:54 17:12 PTT (Actin FS) Sodium Potassium Chloride Carbon Dioxide Anion Gap BUN Creatinine Creat Clearance w eGFR POC Glucometer 306.94129 [phone] Random Glucose Calcium Total Bilirubin AST ALT Alkaline Phosphatase Total Protein Albumin 11/07/17 11/07/17 11/07/17 05:40 06:22 12:20 PTT (Actin FS) Sodium 138 Potassium 4.8 Chloride 97 L Carbon Dioxide 39 H Anion Gap 2 L BUN 17 Creatinine 0.5 L Creat Clearance w eGFR > 60 POC Glucometer 182.48529 235.02050 Random Glucose 110 H D Calcium 8.0 L Total Bilirubin 0.4 AST 8 L ALT 13 Alkaline Phosphatase 62 Total Protein 7.1 Albumin 2.3 L 11/07/17 21:00 PTT (Actin FS) 55.0 H D Sodium Potassium Chloride Carbon Dioxide Anion Gap BUN Creatinine Creat Clearance w eGFR POC Glucometer Random Glucose Calcium Total Bilirubin AST ALT Alkaline Phosphatase Total Protein Albumin Active Medications Generic Name Dose Route Start Last Admin Trade Name Freq PRN Reason Stop Dose Admin Acetaminophen 650 mg 10/19/17 22:58 11/02/17 22:14 Tylenol - PO 650 mg Q6H PRN Administration FEVER OR PAIN Artificial Tears 1 applic 11/03/17 22:00 11/07/17 22:36 Artificial Tears Ointment - OU 1 applic HS SONAL Administration Chlorhexidine Gluconate 1 applic 10/17/17 22:00 11/07/17 22:34 Hibiclens For Decolonization - TP 1 applic HS SONAL Administration Dextrose 25 gm 11/01/17 21:49 11/02/17 08:47 D50w (Vial) - IVPUSH 25 gm DAILY PRN Administration hypoglycemia Heparin Sodium (Porcine) 1,000 unit 10/20/17 17:59 10/26/17 12:54 Heparin - IVPUSH 1,000 unit PRN PRN Administration Heparin Heparin Sodium (Porcine) 5,000 unit 10/20/17 17:59 11/06/17 09:34 Heparin - IVPUSH 5,000 unit PRN PRN Administration Heparin Fentanyl 500 mcg/ Sodium 100 mls @ 10 mls/hr 11/03/17 16:00 11/07/17 22:34 Chloride IVPB Not Given TITR SONAL Protocol 50 MCG/HR Insulin Aspart 1 vial 10/17/17 16:30 11/08/17 06:15 Novolog Vial Sliding Scale - SQ 4 units ACHS SONAL Administration Protocol Nicotine 7 mg 10/19/17 12:45 11/07/17 12:31 Nicoderm Patch - TD 7 mg DAILY SONAL Administration Nystatin 500,000 units 10/30/17 12:00 11/08/17 06:15 Nystatin Oral Suspension - PO 11/09/17 11:59 500,000 units Q6HPO SONAL Administration Pantoprazole Sodium 40 mg 11/04/17 10:15 11/07/17 12:28 Protonix Iv IVPUSH 40 mg DAILY SONAL Administration Prednisone 40 mg 10/24/17 10:00 11/07/17 12:29 Deltasone - PO 40 mg DAILY SONAL Administration Saliva Substitute 1 applic 11/02/17 15:45 11/07/17 12:30 Mouthkote Solution - MM 1 applic DAILY SONAL Administration Microbiology 10/21/17 06:00 Serum Cryptococcal Antigen - Final 10/19/17 19:30 Sputum - Expectorated Gram Stain - Final 10/19/17 19:30 Sputum - Expectorated Sputum Culture - Final NORMAL RESPIRATORY TOYIN 10/17/17 10:10 Blood - Peripheral Venous Blood Culture - Final NO GROWTH AFTER 5 DAYS INCUBATION 10/17/17 10:10 Blood - Peripheral Venous Blood Culture - Final NO GROWTH AFTER 5 DAYS INCUBATION 10/17/17 13:57 Urine - Urine Clean Catch Urine Culture - Final NO GROWTH OBTAINED 10/17/17 13:57 Urine For Antigen Detection Legionella Antigen - Final 10/17/17 13:57 Urine For Antigen Detection Streptococcus pneumoniae Antigen (M - Final 10/17/17 10:25 Nasopharyngeal Swab Influenza Types A,B Antigen ([facility]) - Final 10/17/17 10:25 Nasopharyngeal Swab - Final Recent imaging: CXR 10/21/17 - Since 10/30/2017, the ARDS pattern has diminished minimally. Follow- up recommended. CT Abdomen 10/31 - The gallbladder demonstrates no definite CT pathology. There is nonspecific minimal to mild intrahepatic biliary tract dilatation. Clinical/ laboratory correlation is suggested as well as with follow-up CT. Dilatation of the main pancreatic duct as noted above. Pancreatic ductal dilatation was also noted on a 2013 ultrasound exam. Several small pancreatic head calcifications are seen suggestive of chronic calcific pancreatitis. No gross mass lesion is identified. Correlate with MRI/MRCP when the patient's clinical condition permits. No CT evidence of acute pancreatitis. Mild acute pancreatitis is frequently not demonstrable on CT or MRI. The partially imaged lower chest demonstrates prominent bilateral interstitial thickening with relative peripheral sparing - ? Noncardiogenic edema, infectious versus noninfectious pneumonitis, hemorrhage. Correlate clinically. This finding may be somewhat increased in comparison to a chest CT exam of 10/20/2017. No pleural effusion is seen. Bibasilar bronchiectasis. There is partial imaging of nonspecific mediastinal lymphadenopathy (as described on chest CT). Prominent atherosclerotic vascular calcifications. Mild to moderate L1 and mild L5 vertebral body compression fractures are noted which appear chronic. No bony retropulsion is seen. The visualized osseous structures appear to be diffusely demineralized. Clinical/laboratory correlation is suggested. Additional evaluation utilizing bone densitometry/DEXA scan may be considered. CXR 11/01 - Since a prior study of 10/31/2017, extensive opacification is identified throughout the lung james with little significant change. This is consistent with ARDS. No pleural effusions have developed. CXR 11/02 - No significant change from prior cxr. Still with BL reticulonodular diffuse opacification. CXR 11/05 - No significant change. BL reticulonodular pattern. CXR 11/06 - No change overall CXR 11/07 - Trach in place. Diffuse BL interstitial and possible alveolar changes. No pneumo or pleural effusions. ekg 11/08 - NSR, Rate 86, QTC 409, LVH, NANCY, no ST/Twave changes CXR 11/08 - No significanr interval changes, BL parenchymal reticulonodular infiltrates, ETT tube, NG tube in place 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 #Acute hypoxic respiratory failure - likely secondary to ILD of unknown etiology. Pt w/ prior smoking hx, worked in factory. Presumptive diagnosis ILD secondary to pneumonitis? Pt w/ trac plaed 11/07, still requiring high vent settings; appears more agitated today - Trach placed 11/07. Tolerating well, copious secretions overnight - PEG placement tomorrow; hold heparin at 10PM, NPO after midnight - Consider lung bx for further workup of etiology of lung dz - Pt w/ trach requiring high O2 support - NG tube for feeding - C/w prednisone - fentanyl, midazolam for sedation - Xanax prn for anxiety - Once stable, will require transfer to tertiary care center for transplant evaluation -tylenol for chest pain #Extensive RLE DVT- IVC filter 10/20, thrombectomy 10/24; Still on heparin gtt - Continue heparin gtt protocol - Will transition to NOACs after PEG placement #Acute diastolic CHF failure - not volume overloaded; hold lasix for now - lasix as needed, none given today - Cardiac monitoring #macrocytic Anemia - 9.1 today, uptrending; MCV 102; Vit B12 normal - Trend H/H - Transfuse at <7 - folate normal #IDDM- A1c 7.4 - No further episodes of hypoglycemia; Dextrose push PRN - Hold home oral hypoglycemics; monitor for signs of hypoglycemia - ISS - BGM q4h #BPH -c/w home flomax #nicotine dependence -nicotine patch -smoking cessation PPX Heparin gtt IV PPI FEN PO fluids Daily BMPs Diabetic diet PEG tomorrow. Transfer to [facility] for lung transplant w/u if possible Plan discussed with attending, Dr. Leroy Reeves, PGY1 Visit type - Emergency Visit Emergency Visit: Yes ED Registration Date: 10/17/17 Care time: The patient presented to the Emergency Department on the above date and was hospitalized for further evaluation of their emergent condition. - New Patient This patient is new to me today: No - Critical Care Critical Care patient: No
[2017-11-08 07:29] LABS: CHLORIDE 93 mmol/L (98-107); POTASSIUM 4.4 mmol/L (3.5-5.1); SODIUM 137 mmol/L (136-145)
--- NOTE | 2017-11-08 07:37 | MSN ---
Progress Note (short form) - Note Progress Note: Subjective: Patient was seen this morning. Pt states that breathing has been the same, he is tolerating the trache. Patient states he still has some coughing. Patient denies chest pain, abdominal pain, N/V/D. Objective: Last Vital Signs Temp Pulse Resp BP Pulse Ox 98.5 F 82 24 136/51 98 11/08/17 06:00 11/08/17 06:00 11/08/17 06:16 11/08/17 06:00 11/07/17 22:00 Intake & Output 11/05/17 11/06/17 11/07/17 11/08/17 23:59 23:59 23:59 23:59 Intake Total 2631.2 1870.4 928 672 Output Total 2291 057 0436 300 Balance 1531.2 1320.4 -272 372 Weight 156 lb 15.506 oz 159 lb 6.4 oz 154 lb 11.2 oz General: patient is a cachectic man who is resting comfortable and is no apparent distress. HEENT: PERRLA. NG tube is placed. Tracheostomy tube is placed. Heart: RRR, no murmurs rubs or gallops appreciated. Lungs: Rhonci heard anteriorly and crackles appreciated from the side. Poor airflow Abdomen: soft, nontender to palpation. hypoactive bowel sounds. Mesh visible through skin. Extremities: 2+ pulses B/L on UE and LE. No edema noted. CBC, BMP 11/08/17 06:35 11/08/17 06:35 Abnormal Lab Results 11/07/17 11/08/17 11/08/17 21:00 06:35 06:35 RBC 2.86 L Hgb 9.1 L Hct 29.3 L MCV 102.3 H MCHC 31.2 L RDW 17.1 H PTT (Actin FS) 55.0 H D 67.2 H Chloride Carbon Dioxide Anion Gap BUN Random Glucose Total Protein Albumin 11/08/17 06:35 RBC Hgb Hct MCV MCHC RDW PTT (Actin FS) Chloride 93 L Carbon Dioxide 37 H Anion Gap 7 L BUN 21 H D Random Glucose 282 H D Total Protein 8.3 H Albumin 2.6 L Microbiology 10/21/17 06:00 Serum Cryptococcal Antigen - Final 10/19/17 19:30 Sputum - Expectorated Gram Stain - Final 10/19/17 19:30 Sputum - Expectorated Sputum Culture - Final NORMAL RESPIRATORY TOYIN 10/17/17 10:10 Blood - Peripheral Venous Blood Culture - Final NO GROWTH AFTER 5 DAYS INCUBATION 10/17/17 10:10 Blood - Peripheral Venous Blood Culture - Final NO GROWTH AFTER 5 DAYS INCUBATION 10/17/17 13:57 Urine - Urine Clean Catch Urine Culture - Final NO GROWTH OBTAINED 10/17/17 13:57 Urine For Antigen Detection Legionella Antigen - Final 10/17/17 13:57 Urine For Antigen Detection Streptococcus pneumoniae Antigen (M - Final 10/17/17 10:25 Nasopharyngeal Swab Influenza Types A,B Antigen (CHUY) - Final 10/17/17 10:25 Nasopharyngeal Swab - Final Imaging: - chest x-ray 11/07/17: s/p tracheostomy. no pneumothorax or soft tissue air accumulation seen. lung finding unchanged. - chest x-ray 11/01/17: extensive opacification throughout with little significant changes. consistent with ARDS. - abdominal CT 10/31/17: Several small pancreatic head calcification suggestive of chronic calcific pancreatitis. no acute pancreatitis. Lungs b/l internstitial thickening with relative peripheral sparing. Noncardiogenic edema infx vs noninfectious pneumonitis, hemorrhage. Bibasilae bronchiectasis. Nonspecific mediastinal lymphadenopathy. Prominent atherosclerotic vascular calcifications. Mild chronic L1-L5 body compression fractures. osseous structures diffusely de-mineralized. - chest x-ray 10/31/17: Since 10/30/2017, the ARDS pattern has diminished minimally - chest x-ray 10/30/17: Since 10/29/2017, the diffuse airspace changes are again noted. This has the appearance of an ARDS pattern. Follow-up recommended. - chest x-ray 10/29/17: Since 10/28/2017, the diffuse airspace changes are again noted which could indicate ARDS. - Leg US 10/20/17: DVT noted. There is occlusive thrombosis within the common, deep and superficial femoral veins, as well as the popliteal and posterior tibial veins. These veins are incompressible, an additional sign of DVT. The greater saphenous vein is patent, however, the lesser saphenous vein is also thrombosed. - Abd US 10/18/17: Moderate to marked gallbladder contraction is noted which may be physiologic in nature versus secondary to chronic cholecystitis. If clinically indicated correlate with two-week follow-up sonography with optimal pre - exam fasting. Gallbladder contraction was also described on a previous ultrasound exam of 03/25/2013. No sonographic evidence of acute cholecystitis. There is no obvious evidence of cholelithiasis allowing for previously described gallbladder contraction. No definite biliary tract dilatation is seen. The partially visualized pancreas demonstrates no gross sonographic abnormality. However, on the 2012 ultrasound study dilatation of the main pancreatic duct was described with a 0.5 cm diameter. Given this apparent finding on the prior study additional evaluation utilizing MRI/MRCP is suggested when the patient's clinical condition permits (unless already performed at a different facility). - Echo 10/17/17: normal left ventricle with mild reduced systolic function, EF 45. RV normal. mild to moderate mitral valve thickening. moderate mitral regurgitation. mild tricuspid regurgitation. mild pulmonary HTN. mild arotic steclerosis. no aortic regurgitation. no pericardial effusion. Assessment/ Plan: 62yo M smoker with PMH of NIDDM, PUD, BPH admitted with respiratory failure, severe sepsis, CHF who had extensive right LE DVT s/p IVC filter 10/20/17 and s/p thrombectomy 10/24/17. Patient had increased respiratory distress and had a tracheostomy tube placed on 11/07/17. # Hypoxic respiratory failure possibly from interstitial lung dz with pneumonitis, or CHF. etiology unknown. - tracheostomy tube placed on 11/07/17 - vent setting: RR: 24 Tv: 400 FiO2: 90 PEEP:7 - switch to NOACs after PEG tube placement tomorrow. - Prednisone (Deltasone -) 40 mg PO DAILY SONAL - LTAC denied - may transfer after PEG for lung transplant eval. # NIDDM. A1C 7.4. - diabetic diet. tube feeds osmolite. 1600mL/24 hrs, 1920 kcal. - Insulin Aspart (Novolog Vial Sliding Scale -) 1 vial SQ ACHS SONAL - Insulin Detemir (Levemir Vial) 10 units SQ DAILY SONAL - discontinued. # RUQ abd pain- resolved - U/S on 10/18 was negative - abd CT negative for acute pathology # thrombocytopenia - possibly due to sepsis - resolved - HIT antibody sent and is unequivocal. Level 0.473 (N: <0.4) likely falsely elevated. KAY negative- HIT ruled out. # RLE DVT s/p IV filter on 10/20/17 and thrombectomy on 10/24/17 - resolved - Acetaminophen (Tylenol -) 650 mg PO Q6H PRN fever/ pain - continue heparin # severe sepsis likely secondary to CAP - bp stable. not on pressors. - Azithromycin and Ceftriaxone 7 days completed on 10/24/17 - blood cultures and sputum culture negative # macrocytic anemia - continue to monitor # BPH - continue home med of Tamsulosin 0.4mg PO daily # FEN - F: NG tube - E: continue to monitor - N: tube feeds- osmolite. 1600mL/24hr 1920 kcal #DVT prophylaxis - heparin drip- hold after midnight for PEG tomorrow
[2017-11-08 07:38] LABS: ALBUMIN 2.6 g/dl (3.4-5.0); ALK PHOS 86 U/L (45-117); ANION GAP 7 (8-16); BILIRUBIN,TOTAL 0.7 mg/dL (0.2-1.0); BLOOD UREA NITROGEN 21 mg/dL (7-18); CALCIUM 8.7 mg/dL (8.5-10.1); CO2 37 mmol/L (21-32); CREATININE 0.7 mg/dL (0.7-1.3); GLUCOSE,RANDOM 282 mg/dL (74-106); SGOT/AST 16 U/L (15-37); SGPT/ALT 17 U/L (12-78); TOT PROT 8.3 g/dl (6.4-8.2)
[2017-11-08 07:58] LABS: HEMATOCRIT 29.3 % (35.4-49); HEMOGLOBIN 9.1 GM/dL (11.7-16.9); MCH 31.9 pg (25.7-33.7); MCHC 31.2 g/dl (32.0-35.9); MEAN CELL VOLUME 102.3 fl (80-96); MEAN PLT VOLUME 10.4 fl (7.5-11.1); PLATELET COUNT 201 K/MM3 (134-434); RBC 2.86 M/mm3 (4.00-5.60); RDW 17.1 % (11.9-15.9); WHITE BLOOD COUNT 9.8 K/mm3 (4.0-10.0)
[2017-11-08] MEDS ORDERED: ACETAMINOPHEN 1000 MG/100 ML VIAL (NON FORMULARY) IVPB ONE (10:00)
--- NOTE | 2017-11-08 10:23 | EKG ---
Test Reason : Blood Pressure : / mmHG Vent. Rate : 086 BPM Atrial Rate : 086 BPM P-R Int : 106 ms QRS Dur : 088 ms QT Int : 342 ms P-R-T Axes : 058 049 -04 degrees QTc Int : 409 ms SINUS RHYTHM WITH SHORT HI RIGHT ATRIAL ENLARGEMENT LEFT VENTRICULAR HYPERTROPHY WITH REPOLARIZATION ABNORMALITY ABNORMAL ECG WHEN COMPARED WITH ECG OF 27-OCT-2017 12:58, NO SIGNIFICANT CHANGE WAS FOUND Confirmed by NELY IVY, NICKY ([id number]) on 11/08/2017 10:23:31 AM Referred By: BRYCE VELEZ, Confirmed By:NICKY MCKAY MD
[2017-11-08] MEDS: LYTES/YERBA SANTA 240 ML BOTTLE MM SCH (10:30)
[2017-11-08] MEDS: predniSONE 20 MG TABLET (UD) PO SCH (10:40)
[2017-11-08] MEDS: NICOTINE 7 MG/24 HOURS TOPICAL PATCH TD SCH (10:45)
--- NOTE | 2017-11-08 10:52 | PN ---
Progress Note, Physician History of Present Illness: No events. Discussed with pt's daughter. - Current Medication List Current Medications: Active Medications Acetaminophen (Tylenol -) 650 mg PO Q6H PRN PRN Reason: FEVER OR PAIN Last Admin: 11/02/17 22:14 Dose: 650 mg Artificial Tears (Artificial Tears Ointment -) 1 applic OU HS [facility] Last Admin: 11/07/17 22:36 Dose: 1 applic Chlorhexidine Gluconate (Hibiclens For Decolonization -) 1 applic TP HS [facility] Last Admin: 11/07/17 22:34 Dose: 1 applic Dextrose (D50w (Vial) -) 25 gm IVPUSH DAILY PRN PRN Reason: hypoglycemia Last Admin: 11/02/17 08:47 Dose: 25 gm Heparin Sodium (Porcine) (Heparin -) 1,000 unit IVPUSH PRN PRN PRN Reason: Heparin Last Admin: 10/26/17 12:54 Dose: 1,000 unit Heparin Sodium (Porcine) (Heparin -) 5,000 unit IVPUSH PRN PRN PRN Reason: Heparin Last Admin: 11/06/17 09:34 Dose: 5,000 unit Insulin Aspart (Novolog Vial Sliding Scale -) 1 vial SQ ACHS SONAL PRN Reason: Protocol Last Admin: 11/08/17 06:15 Dose: 4 units Nicotine (Nicoderm Patch -) 7 mg TD DAILY [facility] Last Admin: 11/07/17 12:31 Dose: 7 mg Nystatin (Nystatin Oral Suspension -) 500,000 units PO Q6HPO [facility] Stop: 11/09/17 11:59 Last Admin: 11/08/17 06:15 Dose: 500,000 units Pantoprazole Sodium (Protonix Iv) 40 mg IVPUSH DAILY [facility] Last Admin: 11/07/17 12:28 Dose: 40 mg Prednisone (Deltasone -) 40 mg PO DAILY [facility] Last Admin: 11/07/17 12:29 Dose: 40 mg Saliva Substitute (Mouthkote Solution -) 1 applic MM DAILY [facility] Last Admin: 11/07/17 12:30 Dose: 1 applic - Objective Vital Signs: Vital Signs Temperature 98.6 F 11/08/17 09:53 Pulse Rate 91 H 11/08/17 09:53 Respiratory Rate 25 H 11/08/17 09:53 Blood Pressure 164/70 11/08/17 09:53 O2 Sat by Pulse Oximetry (%) 98 11/07/17 22:00 Constitutional: Yes: No Distress, Calm Gastrointestinal: Yes: Soft, Other (mesh) Labs: CBC, BMP 11/08/17 06:35 11/08/17 06:35 INR, PTT INR 1.14 (0.82-1.09) 10/26/17 05:15 Problem List - Problems (1) Failure to thrive Code(s): PQE7672 - (2) Failure to thrive in adult Code(s): R62.7 - ADULT FAILURE TO THRIVE (3) Acute respiratory failure with hypoxia Code(s): J96.01 - ACUTE RESPIRATORY FAILURE WITH HYPOXIA Assessment/Plan The pt requires long-term Non-PO nutritional support. Consent in chart ! Anticoagulation and steroids Plan PEG on . Pt has a mesh. Will attempt to incert PEG endoscopically, if cannot get obstacle-free translunination, will defer GT to surgery. Discussed with the pt, his daughter and the icu team Hold heparin 12 hrs prior to the procedure CBC, PT, PTT the morning of
[2017-11-08] MEDS ORDERED: MIDAZOLAM HCL 2 MG/2 ML SINGLE DOSE VIAL IVPUSH ONE ×3 (10:56→23:00)
[2017-11-08] MEDS ORDERED: PT OWN MED DRAWER 7, Y5N ONE (11:48)
[2017-11-08] MEDS: PANTOPRAZOLE SODIUM 40 MG VIAL IVPUSH SCH (12:01)
--- NOTE | 2017-11-08 12:24 | PN ---
Progress Note, Physician History of Present Illness: c/o nonradiating midstrenal mild chest pain, not related to palpation or movement. comfortable with trach and current settings, pt did not tolerate decrease in Peep/Fio2 or rate, did not tolerate CPAP denies headache, cough, fever, chills. - Current Medication List Current Medications: Active Medications Acetaminophen (Tylenol -) 650 mg PO Q6H PRN PRN Reason: FEVER OR PAIN Last Admin: 11/02/17 22:14 Dose: 650 mg Artificial Tears (Artificial Tears Ointment -) 1 applic OU HS [facility] Last Admin: 11/07/17 22:36 Dose: 1 applic Chlorhexidine Gluconate (Hibiclens For Decolonization -) 1 applic TP HS [facility]ONAL Last Admin: 11/07/17 22:34 Dose: 1 applic Dextrose (D50w (Vial) -) 25 gm IVPUSH DAILY PRN PRN Reason: hypoglycemia Last Admin: 11/02/17 08:47 Dose: 25 gm Heparin Sodium (Porcine) (Heparin -) 1,000 unit IVPUSH PRN PRN PRN Reason: Heparin Last Admin: 10/26/17 12:54 Dose: 1,000 unit Heparin Sodium (Porcine) (Heparin -) 5,000 unit IVPUSH PRN PRN PRN Reason: Heparin Last Admin: 11/06/17 09:34 Dose: 5,000 unit Insulin Aspart (Novolog Vial Sliding Scale -) 1 vial SQ ACHS SONAL PRN Reason: Protocol Last Admin: 11/08/17 06:15 Dose: 4 units Nicotine (Nicoderm Patch -) 7 mg TD DAILY [facility] Last Admin: 11/08/17 10:45 Dose: 7 mg Nystatin (Nystatin Oral Suspension -) 500,000 units PO Q6HPO [facility] Stop: 11/09/17 11:59 Last Admin: 11/08/17 12:03 Dose: 500,000 units Pantoprazole Sodium (Protonix Iv) 40 mg IVPUSH DAILY [facility] Last Admin: 11/08/17 12:01 Dose: 40 mg Prednisone (Deltasone -) 40 mg PO DAILY [facility] Last Admin: 11/08/17 10:40 Dose: 40 mg Saliva Substitute (Mouthkote Solution -) 1 applic MM DAILY [facility]ONAL Last Admin: 11/08/17 10:30 Dose: 1 applic - Objective Vital Signs: Vital Signs Temperature 98.6 F 11/08/17 10:00 Pulse Rate 92 H 11/08/17 11:00 Respiratory Rate 36 H 11/08/17 11:30 Blood Pressure 109/45 11/08/17 11:00 O2 Sat by Pulse Oximetry (%) 93 L 11/08/17 08:20 Constitutional: Yes: Calm, Cachectic Eyes: Yes: Conjunctiva Clear, EOM Intact HENT: Yes: Atraumatic, Normocephalic Neck: Yes: Supple, Trachea Midline (trach in place, without erythema, sputum/ discharge.) Cardiovascular: Yes: Regular Rate and Rhythm Respiratory: Yes: Mechanically Ventilated, Rales, Rhonchi Gastrointestinal: Yes: Normal Bowel Sounds, Soft. No: Distention Musculoskeletal: Yes: WNL Extremities: Yes: WNL Edema: No Peripheral Pulses WNL: Yes Integumentary: Yes: WNL Neurological: Yes: Alert, Oriented ...Motor Strength: WNL Labs: CBC, BMP 11/08/17 06:35 11/08/17 06:35 INR, PTT INR 1.14 (0.82-1.09) 10/26/17 05:15 Assessment/Plan 62 year old victor hugo with RLE DVT without PE s/p IVC filter on heparin drip, trach'd due to hypoxic respiratory failure secondary to ILD CV: #Septic Shock resolved s/p weaned off pressors and completed abx course #DVT: U/S positive for Right calf DVT, s/p thrombectomy - s/p IR direct infusion - Hepirin drip to held for PEG tube placement #Chest Pain: - EKG unchanged, trop not elevated, chest xray without new infiltrates Pulm: #Acute Hypoxic Respiratory Failure, now with trach on vent - Prednisone 40 daily #Nicotine patch for smoking cessation #GI - cachaxia due to malnutrition, continue NGT Renal: - CTM - Avoid nephrotoxic medications Endo #NIDDM: -Patient is no longer having hypoglycemic episodes requiring D50 pushes -Will continue to monitor BGM and provided D50 pushes as needed. -ISS FEN -Electrolytes Repleted as needed. -awaiting peg for feeds, currently using NG tube for feeds - d/c phillips PPX: - Hep drip for dvt, hold for PEG - Protonix Disposition: Continued ICU care.
[2017-11-08] MEDS ORDERED: ACETAMINOPHEN 1000 MG/100 ML VIAL (NON FORMULARY) IVPB PRN (13:08)
[2017-11-08] MEDS ORDERED: HEPARIN NA (PORCINE) 5,000 UNITS/ML 1ML VIAL IVPUSH PRN (13:13)
--- NOTE | 2017-11-08 13:59 | PN ---
Progress Note, Physician History of Present Illness: Respiratory failure - Current Medication List Current Medications: Active Medications Acetaminophen (Tylenol -) 650 mg PO Q6H PRN PRN Reason: FEVER OR PAIN Last Admin: 11/02/17 22:14 Dose: 650 mg Acetaminophen (Ofirmev Injection -) 1,000 mg IVPB Q6H PRN PRN Reason: FEVER Artificial Tears (Artificial Tears Ointment -) 1 applic OU HS [facility] Last Admin: 11/07/17 22:36 Dose: 1 applic Chlorhexidine Gluconate (Hibiclens For Decolonization -) 1 applic TP HS [facility] Last Admin: 11/07/17 22:34 Dose: 1 applic Dextrose (D50w (Vial) -) 25 gm IVPUSH DAILY PRN PRN Reason: hypoglycemia Last Admin: 11/02/17 08:47 Dose: 25 gm Heparin Sodium (Porcine) (Heparin -) 5,000 unit IVPUSH PRN PRN PRN Reason: Heparin Stop: 11/08/17 22:00 Last Admin: 11/06/17 09:34 Dose: 5,000 unit Heparin Sodium (Porcine) (Heparin -) 1,000 unit IVPUSH PRN PRN PRN Reason: Heparin Stop: 11/08/17 22:00 Insulin Aspart (Novolog Vial Sliding Scale -) 1 vial SQ ACHS [facility] PRN Reason: Protocol Last Admin: 11/08/17 06:15 Dose: 4 units Nicotine (Nicoderm Patch -) 7 mg TD DAILY [facility] Last Admin: 11/08/17 10:45 Dose: 7 mg Nystatin (Nystatin Oral Suspension -) 500,000 units PO Q6HPO [facility] Stop: 11/09/17 11:59 Last Admin: 11/08/17 12:03 Dose: 500,000 units Pantoprazole Sodium (Protonix Iv) 40 mg IVPUSH DAILY [facility] Last Admin: 11/08/17 12:01 Dose: 40 mg Prednisone (Deltasone -) 40 mg PO DAILY [facility] Last Admin: 11/08/17 10:40 Dose: 40 mg Saliva Substitute (Mouthkote Solution -) 1 applic MM DAILY [facility] Last Admin: 11/08/17 10:30 Dose: 1 applic - Objective Vital Signs: Vital Signs Temperature 98.6 F 11/08/17 10:00 Pulse Rate 92 H 11/08/17 11:00 Respiratory Rate 18 11/08/17 12:40 Blood Pressure 109/45 11/08/17 11:00 O2 Sat by Pulse Oximetry (%) 93 L 11/08/17 08:20 Constitutional: Yes: No Distress, Calm, Cachectic Eyes: Yes: WNL, Conjunctiva Clear HENT: Yes: Atraumatic, Normocephalic Neck: Yes: Trachea Midline Cardiovascular: Yes: WNL, Regular Rate and Rhythm, S1, S2 Respiratory: Yes: Mechanically Ventilated Gastrointestinal: Yes: Soft, Hypoactive Bowel Sounds ...Rectal Exam: Yes: Deferred Musculoskeletal: Yes: Muscle Weakness Extremities: Yes: WNL Edema: No Peripheral Pulses WNL: No Peripheral Pulses: Left Radial: 1+, Right Radial: 1+, Left Doralis Pedis: 1+, Right Dorsalis Pedis: 1+, Left Femoral: 1+, Right Femoral: 1+ Neurological: Yes: Weakness (Generalized weakness) Labs: CBC, BMP 11/08/17 06:35 11/08/17 06:35 INR, PTT INR 1.14 (0.82-1.09) 10/26/17 05:15 Assessment/Plan 62-year-old cachectic man, status post tracheostomy, waiting for PEG placement. The patient has mild pulmonary congestion, and most likely pneumonia. The patient is medically optimized for PEG placement. Continue current care. Give IV Lasix for mild pulmonary congestion. There is no need for further cardiac workup at this point. Please do not hesitate to call usPRN
--- NOTE | 2017-11-08 14:51 | PN ---
Teaching Attending Note Name of Resident: Katt Christine ATTENDING PHYSICIAN STATEMENT I saw and evaluated the patient. I reviewed the resident's note and discussed the case with the resident. I agree with the resident's findings and plan as documented. SUBJECTIVE: Pt seen and examined in the ICU. Vented, awake on volume assist control with 80 % FiO2, PEEP 7. Still with episodes of desaturations. OBJECTIVE: Last Vital Signs Temp Pulse Resp BP Pulse Ox 98.4 F 16 L 18 134/68 93 L 11/08/17 14:33 11/08/17 14:33 11/08/17 14:33 11/08/17 14:33 11/08/17 08:20 Intake & Output 11/05/17 11/06/17 11/07/17 11/08/17 23:59 23:59 23:59 23:59 Intake Total 2631.2 1870.4 928 672 Output Total 3861 041 5044 700 Balance 1531.2 1320.4 -272 -28 Weight 71.2 kg 72.303 kg 70.171 kg Gen: vented, tachypneic at rest Heart: RRR Lung: bibasilar rales Abd: soft, nontender Ext: no edema CBC, BMP 11/08/17 06:35 11/08/17 06:35 Active Medications Acetaminophen (Tylenol -) 650 mg PO Q6H PRN PRN Reason: FEVER OR PAIN Last Admin: 11/02/17 22:14 Dose: 650 mg Acetaminophen (Ofirmev Injection -) 1,000 mg IVPB Q6H PRN PRN Reason: FEVER Artificial Tears (Artificial Tears Ointment -) 1 applic OU HS [facility] Last Admin: 11/07/17 22:36 Dose: 1 applic Chlorhexidine Gluconate (Hibiclens For Decolonization -) 1 applic TP HS [facility] Last Admin: 11/07/17 22:34 Dose: 1 applic Dextrose (D50w (Vial) -) 25 gm IVPUSH DAILY PRN PRN Reason: hypoglycemia Last Admin: 11/02/17 08:47 Dose: 25 gm Heparin Sodium (Porcine) (Heparin -) 5,000 unit IVPUSH PRN PRN PRN Reason: Heparin Stop: 11/08/17 22:00 Last Admin: 11/06/17 09:34 Dose: 5,000 unit Heparin Sodium (Porcine) (Heparin -) 1,000 unit IVPUSH PRN PRN PRN Reason: Heparin Stop: 11/08/17 22:00 Insulin Aspart (Novolog Vial Sliding Scale -) 1 vial SQ ACHS [facility] PRN Reason: Protocol Last Admin: 11/08/17 06:15 Dose: 4 units Nicotine (Nicoderm Patch -) 7 mg TD DAILY [facility] Last Admin: 11/08/17 10:45 Dose: 7 mg Nystatin (Nystatin Oral Suspension -) 500,000 units PO Q6HPO [facility] Stop: 11/09/17 11:59 Last Admin: 11/08/17 12:03 Dose: 500,000 units Pantoprazole Sodium (Protonix Iv) 40 mg IVPUSH DAILY [facility] Last Admin: 11/08/17 12:01 Dose: 40 mg Prednisone (Deltasone -) 40 mg PO DAILY [facility] Last Admin: 11/08/17 10:40 Dose: 40 mg Saliva Substitute (Mouthkote Solution -) 1 applic MM DAILY [facility] Last Admin: 11/08/17 10:30 Dose: 1 applic ASSESSMENT AND PLAN: Acute Hypoxic Respiratory Failure s/p Tracheostomy Pneumonia Sepsis Interstitial Lung Disease Acute Diastolic Heart Failure improved Acute Kidney Injury improving Lactic Acidosis resolved DM RLE DVT - antibiotics completed - continue prednisone - BiPAP - taper FiO2 to keep SpO2 >90% - lasix as needed - monitor urine output, creatinine - anxiolytics - monitor CXR - for PEG placement - continue anticoagulation, can start PO if no further procedures planned - PO as tolerated - continue ICU monitoring for tenuous respiratory status - poor overall prognosis critical care time spent in reviewing chart, evaluating patient and formulating plan 35 min Problem List - Problems (1) Acute respiratory failure with hypoxia Code(s): J96.01 - ACUTE RESPIRATORY FAILURE WITH HYPOXIA (2) Pneumonia Code(s): J18.9 - PNEUMONIA, UNSPECIFIED ORGANISM (3) Diabetes Code(s): E11.9 - TYPE 2 DIABETES MELLITUS WITHOUT COMPLICATIONS
--- NOTE | 2017-11-08 16:40 | PN ---
Teaching Attending Note Name of Resident: Dylon Reeves ATTENDING PHYSICIAN STATEMENT I saw and evaluated the patient. I reviewed the resident's note and discussed the case with the resident. I agree with the resident's findings and plan as documented. SUBJECTIVE:c/o CP this AM. substernal not radiating while at rest. states breathing is improved since tracheostomy. denies fever, chills, cough, N/V/C/D OBJECTIVE: Last Vital Signs Temp Pulse Resp BP Pulse Ox 98.4 F 16 L 25 H 134/68 93 L 11/08/17 14:00 11/08/17 14:00 11/08/17 14:54 11/08/17 14:00 11/08/17 08:20 General tachypnic, +bitemporal wasting, prominent clavicles CV S1 S2 RRR +chest wall tenderness Lungs rhonchi diffusely, poor air entry extremities no pedal edema or tenderness ASSESSMENT AND PLAN: 62 yo M active smoker, pMHx of NIDDM, PUD, BPH admitted with acute hypoxic respiratory failure, and extensive RLE DVT 1. Acute hypoxic respiratory failure, suspect from ?ILD with pneumonitis- s/p intubation 11/03 with failed weaning and now s/p trach 11/07. on pred 40mg. will need to discuss with Pulmonary team residential plan and goal. as still on high vent requirements 2. RLE DVT- s/p IVC filter 10/20, thrombectmy 10/24. on heparin ggt. will convert to NOAC once no more procedures are planned 3. Atypical CP- likely musculoskeletal. will check stat EKG and troponin. cardio consult for clearance as planned surgery tomorrow 4. Acute diastolic heart failure- s/p intermittent lasix IV. no signs of volume overload. will hold for now 5. Sepsis, likely from PNA- completed abx course 6. MIRLANDE from sepsis- resolved 7. Thrombocytopenia- resolved. 8. continuous nicotine dependence- nicotine patch 9. cachexia- malnutrition evident by body habitus. tolerating NGT feeds. NPO for PEG in AM 10. PPX- ppi/hep ggt 11. spoke iwth daughter present at bedside. all questions answered. was denied by LTACH due to insurance denial. palliative care on board d/c jacqueline. [facility] Total critical care time spent 40 min.
[2017-11-08] MEDS ORDERED: INSULIN (NOVOLOG) ASPART 100 UNITS/ML 10ML VIAL ONE (18:14)
[2017-11-08] MEDS: CHLORHEXIDINE GLUCONATE 4% CLEANSER FOR DECOLONIZATION TP SCH (22:14)
[2017-11-08] MEDS: MINERAL OIL/PETROLATUM,WHITE 3.5 GM TUBE OU SCH (22:20)
[2017-11-09] MEDS ORDERED: HEPARIN NA (PORCINE) 5,000 UNITS/ML 1ML VIAL IVPUSH PRN ×2 (01:33)
[2017-11-09] MEDS ORDERED: HEPARIN SOD,PORK IN 0.45% NACL 25,000 UNIT/500 ML INFUS.BAG IVPB SCH (01:45)
--- NOTE | 2017-11-09 02:46 | HOSP ---
Subjective - Review of Symptoms Events since last encounter: Pt to have Hep ggt stopped 12hr prior to PEG placement tomorrow. Pt still on Hep at 2:45 am. Will stop now. Physical Examination Vital Signs: Vital Signs Temperature 98.8 F 11/08/17 22:00 Pulse Rate 91 H 11/09/17 00:00 Respiratory Rate 11/09/17 00:05 Blood Pressure 169/87 11/09/17 00:00 O2 Sat by Pulse Oximetry (%) 93 L 11/08/17 08:20 Labs: CBC, BMP 11/08/17 06:35 11/08/17 06:35 Visit type - Emergency Visit Emergency Visit: No - New Patient This patient is new to me today: Yes Date on this admission: 11/10/17 - Critical Care Critical Care patient: No
--- NOTE | 2017-11-09 06:01 | PN ---
Physical Exam: SUBJECTIVE: Patient seen and examined by me this AM - Pt still unable to tolerate titration of vent settings. Received trach 2 days ago, still with secretions. Pt for PEG placement today, heparin gtt stop at 230AM, despite order to d/c at 10pm overnight. Per Dr. Pardo, anticipated challenging placement given abdominal mesh, however will attempt. -Pt with brief episode of substernal, nonradiating CP yesterday during rounds. Trops neg, EKG nrml. Painful to palpation on anterior chest wall, suggestive of MSK strain from increased WOB. PM: - PEG placed, no complications. Will start eliquis tomorrow per Dr. Pardo. Pt will require decreased vent requirements before discharge to [place]. OBJECTIVE: Vital Signs Intake & Output 11/06/17 11/07/17 11/08/17 11/09/17 23:59 23:59 23:59 23:59 Intake Total 1870.4 928 1264 Output Total 550 1200 1100 Balance 1320.4 -272 164 Weight 72.303 kg 70.171 kg Period Temp Pulse Resp BP Sys/Sutton Pulse Ox Last 24 Hr 98 F-98.8 F 16-92 18-36 109-169/45-87 93 GENERAL: Middle age, cachectic man laying in bed, w/ trach, NG tube. HEAD: Normal with no signs of trauma. Bitemporal wasting EYES: PERRL, extraocular movements intact, sclera anicteric, conjunctiva clear. No ptosis. ENT: Ears normal, nares patent, oropharynx clear without exudates, moist mucous membranes. NECK: Trach collar in place, no significant erythema, swelling or purulent. Trachea midline, supple. No JVD noted. LUNGS: Mechanical breath sounds. Diffuse crackles BL, trace rhonchi at bases. No wheezes, no accessory muscle use HEART: 2/6 systolic ejection murmur at LUSB. Regular rate and rhythm, S1, S2 without murmur, rub or gallop. ABDOMEN: Soft, nontender, nondistended, normoactive bowel sounds, no guarding, no rebound, no hepatosplenomegaly, no masses. EXTREMITIES: No edema in LEs. 2+ pulses, warm, well-perfused NEUROLOGICAL: Cranial nerves II through XII grossly intact. Normal speech, gait not observed. PSYCH: Normal mood, normal affect. Appears depressed. SKIN: Warm, dry, normal turgor, no rashes or lesions noted Laboratory Results - last 24 hr CBC, BMP 11/09/17 05:50 11/08/17 06:35 11/08/17 06:35 11/08/17 11/08/17 11/08/17 06:30 06:35 06:35 WBC 9.8 RBC 2.86 L Hgb 9.1 L Hct 29.3 L MCV 102.3 H MCH 31.9 MCHC 31.2 L RDW 17.1 H Plt Count 201 MPV 10.4 PTT (Actin FS) 67.2 H Sodium Potassium Chloride Carbon Dioxide Anion Gap BUN Creatinine Creat Clearance w eGFR Random Glucose Calcium Total Bilirubin AST ALT Alkaline Phosphatase Creatine Kinase Cancelled Troponin I Cancelled Total Protein Albumin 11/08/17 06:35 WBC RBC Hgb Hct MCV MCH MCHC RDW Plt Count MPV PTT (Actin FS) Sodium 137 Potassium 4.4 Chloride 93 L Carbon Dioxide 37 H Anion Gap 7 L BUN 21 H D Creatinine 0.7 D Creat Clearance w eGFR > 60 Random Glucose 282 H D Calcium 8.7 Total Bilirubin 0.7 D AST 16 D ALT 17 D Alkaline Phosphatase 86 D Creatine Kinase 54 Troponin I 0.02 Total Protein 8.3 H Albumin 2.6 L Active Medications Generic Name Dose Route Start Last Admin Trade Name Iamq PRN Reason Stop Dose Admin Acetaminophen 650 mg 10/19/17 22:58 11/02/17 22:14 Tylenol - PO 650 mg Q6H PRN Administration FEVER OR PAIN Acetaminophen 1,000 mg 11/08/17 13:08 Ofirmev Injection - IVPB Q6H PRN FEVER Artificial Tears 1 applic 11/03/17 22:00 11/08/17 22:20 Artificial Tears Ointment - OU 1 applic HS [facility] Administration Chlorhexidine Gluconate 1 applic 10/17/17 22:00 11/08/17 22:14 Hibiclens For Decolonization - TP 1 applic HS [facility] Administration Dextrose 25 gm 11/01/17 21:49 11/02/17 08:47 D50w (Vial) - IVPUSH 25 gm DAILY PRN Administration hypoglycemia Fentanyl 50 mcg 11/09/17 01:32 11/09/17 01:51 Sublimaze Injection - IVPUSH 11/10/17 01:44 50 mcg Q1H PRN Administration PAIN LEVEL 4 - 6 Heparin Sodium (Porcine) 1,000 unit 11/09/17 01:33 Heparin - IVPUSH PRN PRN Heparin Heparin Sodium (Porcine) 5,000 unit 11/09/17 01:33 Heparin - IVPUSH PRN PRN Heparin HEPARIN SOD,PORK IN 0.45% NACL 25,000 unit in 500 mls @ 16 mls/hr 11/09/17 01: 45 11/09/17 02:35 Heparin-1/2ns 25,000 Units/500 IVPB Not Given TITR [facility] Protocol 800 UNITS/HR Insulin Aspart 1 vial 10/17/17 16:30 11/08/17 22:20 Novolog Vial Sliding Scale - SQ Not Given ACHS [facility] Protocol Nicotine 7 mg 10/19/17 12:45 11/08/17 10:45 Nicoderm Patch - TD 7 mg DAILY [facility] Administration Nystatin 500,000 units 10/30/17 12:00 11/09/17 00:00 Nystatin Oral Suspension - PO 11/09/17 11:59 500,000 units Q6HPO [facility] Administration Pantoprazole Sodium 40 mg 11/04/17 10:15 11/08/17 12:01 Protonix Iv IVPUSH 40 mg DAILY [facility] Administration Prednisone 40 mg 10/24/17 10:00 11/08/17 10:40 Deltasone - PO 40 mg DAILY [facility] Administration Saliva Substitute 1 applic 11/02/17 15:45 11/08/17 10:30 Mouthkote Solution - MM 1 applic DAILY [facility] Administration Microbiology 10/21/17 06:00 Serum Cryptococcal Antigen - Final 10/19/17 19:30 Sputum - Expectorated Gram Stain - Final 10/19/17 19:30 Sputum - Expectorated Sputum Culture - Final NORMAL RESPIRATORY TOYIN 10/17/17 10:10 Blood - Peripheral Venous Blood Culture - Final NO GROWTH AFTER 5 DAYS INCUBATION 10/17/17 10:10 Blood - Peripheral Venous Blood Culture - Final NO GROWTH AFTER 5 DAYS INCUBATION 10/17/17 13:57 Urine - Urine Clean Catch Urine Culture - Final NO GROWTH OBTAINED 10/17/17 13:57 Urine For Antigen Detection Legionella Antigen - Final 10/17/17 13:57 Urine For Antigen Detection Streptococcus pneumoniae Antigen (M - Final 10/17/17 10:25 Nasopharyngeal Swab Influenza Types A,B Antigen ([facility]) - Final 10/17/17 10:25 Nasopharyngeal Swab - Final Recent imaging: CXR 10/21/17 - Since 10/30/2017, the ARDS pattern has diminished minimally. Follow- up recommended. CT Abdomen 10/31 - The gallbladder demonstrates no definite CT pathology. There is nonspecific minimal to mild intrahepatic biliary tract dilatation. Clinical/ laboratory correlation is suggested as well as with follow-up CT. Dilatation of the main pancreatic duct as noted above. Pancreatic ductal dilatation was also noted on a 2012 ultrasound exam. Several small pancreatic head calcifications are seen suggestive of chronic calcific pancreatitis. No gross mass lesion is identified. Correlate with MRI/MRCP when the patient's clinical condition permits. No CT evidence of acute pancreatitis. Mild acute pancreatitis is frequently not demonstrable on CT or MRI. The partially imaged lower chest demonstrates prominent bilateral interstitial thickening with relative peripheral sparing - ? Noncardiogenic edema, infectious versus noninfectious pneumonitis, hemorrhage. Correlate clinically. This finding may be somewhat increased in comparison to a chest CT exam of 10/20/2017. No pleural effusion is seen. Bibasilar bronchiectasis. There is partial imaging of nonspecific mediastinal lymphadenopathy (as described on chest CT). Prominent atherosclerotic vascular calcifications. Mild to moderate L1 and mild L5 vertebral body compression fractures are noted which appear chronic. No bony retropulsion is seen. The visualized osseous structures appear to be diffusely demineralized. Clinical/laboratory correlation is suggested. Additional evaluation utilizing bone densitometry/DEXA scan may be considered. CXR 11/01 - Since a prior study of 10/31/2017, extensive opacification is identified throughout the lung james with little significant change. This is consistent with ARDS. No pleural effusions have developed. CXR 11/02 - No significant change from prior cxr. Still with BL reticulonodular diffuse opacification. CXR 11/05 - No significant change. BL reticulonodular pattern. CXR 11/06 - No change overall CXR 11/07 - Trach in place. Diffuse BL interstitial and possible alveolar changes. No pneumo or pleural effusions. 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 #Acute hypoxic respiratory failure - likely secondary to ILD of unknown etiology. Pt w/ prior smoking hx, worked in factory. Presumptive diagnosis ILD secondary to pneumonitis? Pt w/ trac plaed 11/07, still requiring high vent settings; appears more agitated today - Trach placed 11/07. Tolerating well; still with sig secretions overnight - PEG placed, only use for meds per Dr. Pardo; - per ICU team, lung bx w/ too high risk of mortality currently - Pt w/ trach requiring high vent setting still - No feeds per PEG yet - C/w prednisone - off sedation - fentanyl prn for sedation - Once stable w/ decreased vent requirements, transfer to [place] vs. LTACH placement. No further w/u at this time -tylenol for chest pain #Extensive RLE DVT- IVC filter 10/20, thrombectomy 10/24; - off hep gtt prior to PEG; will start Eliquis in AM tomorrow #Acute diastolic CHF failure - not volume overloaded; hold lasix for now - lasix as needed, none given - Cardiac monitoring #Leukocystosis - 12.2 today; possibly reactive; afebrile overnight - monitor for infectious symptoms - trend temp, WBC - if temp, send cultures, start abx #macrocytic Anemia - 8.7 today, uptrending; MCV 102; Vit B12 normal - Trend H/H - Transfuse at <7 - folate normal #IDDM- A1c 7.4 - No further episodes of hypoglycemia; Dextrose push PRN - Hold home oral hypoglycemics; monitor for signs of hypoglycemia - ISS - BGM q4h #BPH -c/w home flomax #nicotine dependence -nicotine patch -smoking cessation PPX Start Eliquis tomorrow IV PPI FEN PO fluids Daily BMPs Diabetic diet S/p PEG today. NH placement vs LTACH once vent requirements improve. Plan discussed with attending, Dr. Leroy Reeves, PGY1 Visit type - Emergency Visit Emergency Visit: Yes ED Registration Date: 10/17/17 Care time: The patient presented to the Emergency Department on the above date and was hospitalized for further evaluation of their emergent condition. - New Patient This patient is new to me today: No - Critical Care Critical Care patient: Yes Total Critical Care Time (in minutes): 35 Critical Care Statement: The care of this patient involved high complexity decision making to prevent further life threatening deterioration of the patient 's condition and/or to evaluate & treat vital organ system(s) failure or risk of failure.
[2017-11-09] MEDS: INSULIN SLIDING SCALE (NOVOLOG) 1 VIAL SQ SCH ×3 (06:14→18:42)
[2017-11-09] MEDS: NYSTATIN 500,000 UNITS/5 ML SUSPENSION PO SCH ×2 (06:29)
[2017-11-09 07:12] LABS: ANION GAP 8 (8-16); BLOOD UREA NITROGEN 18 mg/dL (7-18); CALCIUM 8.7 mg/dL (8.5-10.1); CHLORIDE 97 mmol/L (98-107); CO2 34 mmol/L (21-32); CREATININE 0.5 mg/dL (0.7-1.3); GLUCOSE,RANDOM 179 mg/dL (74-106); POTASSIUM 4.6 mmol/L (3.5-5.1); SODIUM 139 mmol/L (136-145)
[2017-11-09 07:23] LABS: INR 1.02 (0.82-1.09); PROTHROMBIN TIME (PATIENT) 11.5 SEC (9.98-11.88)
[2017-11-09 07:26] LABS: ACTIVATED PTT 20.5 SECONDS (26.9-34.4)
--- NOTE | 2017-11-09 07:34 | MSN ---
Progress Note (short form) - Note Progress Note: Subjective: Patient was seen this morning and states that he feels better. Breathing improved. Patient has no complaints. Denies chest pain, abdominal pain. Objective: Last Vital Signs Temp Pulse Resp BP Pulse Ox 98.8 F 87 24 148/65 93 L 11/09/17 06:00 11/09/17 06:00 11/09/17 06:40 11/09/17 06:00 11/08/17 08:20 Intake & Output 11/06/17 11/07/17 11/08/17 11/09/17 23:59 23:59 23:59 23:59 Intake Total 1870.4 928 1264 450 Output Total 550 1200 1100 400 Balance 1320.4 -272 164 50 Weight 159 lb 6.4 oz 154 lb 11.2 oz 145 lb 4.554 oz General: patient is cachectic man, resting comfortably HEENT: PERRLA. tracheostomy tube in place. trachea midline Heart: RRR. No murmur, rubs of gallops appreciated. Lungs: using accessory muscle of respiration, bibasilar crackles, coarse breath sounds. Abdomen: scaphoid, abd mesh visible. normoactive bowel sounds x4. nontender to palpation. Extremities: well perfused, 2+ pulses BL on upper and lower extremities. No edema noted. CBC, BMP 11/09/17 05:50 11/09/17 05:50 Abnormal Lab Results 11/09/17 11/09/17 11/09/17 05:50 05:50 05:50 WBC 12.2 H RBC 2.75 L Hgb 8.7 L Hct 27.9 L MCV 101.6 H MCHC 31.2 L RDW 16.6 H Plt Count 101.6 L D PTT (Actin FS) 20.5 L D Chloride 97 L Carbon Dioxide 34 H Creatinine 0.5 L D Random Glucose 179 H D Imaging: - chest x-ray 11/09: interstitial lung dz. unchanged. - chest x-ray 11/07/17: s/p tracheostomy. no pneumothorax or soft tissue air accumulation seen. lung finding unchanged. - chest x-ray 11/01/17: extensive opacification throughout with little significant changes. consistent with ARDS. - abdominal CT 10/31/17: Several small pancreatic head calcification suggestive of chronic calcific pancreatitis. no acute pancreatitis. Lungs b/l internstitial thickening with relative peripheral sparing. Noncardiogenic edema infx vs noninfectious pneumonitis, hemorrhage. Bibasilae bronchiectasis. Nonspecific mediastinal lymphadenopathy. Prominent atherosclerotic vascular calcifications. Mild chronic L1-L5 body compression fractures. osseous structures diffusely de-mineralized. - chest x-ray 10/31/17: Since 10/30/2017, the ARDS pattern has diminished minimally - chest x-ray 10/30/17: Since 10/29/2017, the diffuse airspace changes are again noted. This has the appearance of an ARDS pattern. Follow-up recommended. - chest x-ray 10/29/17: Since 10/28/2017, the diffuse airspace changes are again noted which could indicate ARDS. - Leg US 10/20/17: DVT noted. There is occlusive thrombosis within the common, deep and superficial femoral veins, as well as the popliteal and posterior tibial veins. These veins are incompressible, an additional sign of DVT. The greater saphenous vein is patent, however, the lesser saphenous vein is also thrombosed. - Abd US 10/18/17: Moderate to marked gallbladder contraction is noted which may be physiologic in nature versus secondary to chronic cholecystitis. If clinically indicated correlate with two-week follow-up sonography with optimal pre - exam fasting. Gallbladder contraction was also described on a previous ultrasound exam of 03/25/2013. No sonographic evidence of acute cholecystitis. There is no obvious evidence of cholelithiasis allowing for previously described gallbladder contraction. No definite biliary tract dilatation is seen. The partially visualized pancreas demonstrates no gross sonographic abnormality. However, on the 2012 ultrasound study dilatation of the main pancreatic duct was described with a 0.5 cm diameter. Given this apparent finding on the prior study additional evaluation utilizing MRI/MRCP is suggested when the patient's clinical condition permits (unless already performed at a different facility). - Echo 10/17/17: normal left ventricle with mild reduced systolic function, EF 45. RV normal. mild to moderate mitral valve thickening. moderate mitral regurgitation. mild tricuspid regurgitation. mild pulmonary HTN. mild arotic steclerosis. no aortic regurgitation. no pericardial effusion. Assessment/ Plan: 62yo M smoker with PMH of NIDDM, PUD, BPH admitted with respiratory failure, severe sepsis, CHF who had extensive right LE DVT s/p IVC filter 10/20/17 and s/p thrombectomy 10/24/17. Patient had increased respiratory distress and had a tracheostomy tube placed on 11/07/17. # Hypoxic respiratory failure possibly from interstitial lung dz with pneumonitis, or CHF. etiology unknown. - tracheostomy tube placed on 11/07/17 - vent setting: RR: 24 Tv: 400 FiO2: 90 PEEP:7 - switch to NOACs after PEG tube placement today. - Prednisone (Deltasone -) 40 mg PO DAILY SONAL - LTAC denied - transfer to after peg - may transfer after PEG for lung transplant eval? or home? SW to talk to daughter # NIDDM. A1C 7.4. - diabetic diet. tube feeds osmolite. 1600mL/24 hrs, 1920 kcal. - Insulin Aspart (Novolog Vial Sliding Scale -) 1 vial SQ ACHS SONAL - Insulin Detemir (Levemir Vial) 10 units SQ DAILY SONAL - discontinued. # atypical chest pain resolved - likely musculoskeletal - no significant ECG changes, neg trops # RUQ abd pain- resolved - U/S on 10/18 was negative - abd CT negative for acute pathology # thrombocytopenia - possibly due to sepsis - resolved - HIT antibody sent and is unequivocal. Level 0.473 (N: <0.4) likely falsely elevated. KAY negative- HIT ruled out. # RLE DVT s/p IV filter on 10/20/17 and thrombectomy on 10/24/17 - resolved - Acetaminophen (Tylenol -) 650 mg PO Q6H PRN fever/ pain - continue heparin # severe sepsis likely secondary to CAP - bp stable. not on pressors. - Azithromycin and Ceftriaxone 7 days completed on 10/24/17 - blood cultures and sputum culture negative # macrocytic anemia - continue to monitor # BPH - continue home med of Tamsulosin 0.4mg PO daily # FEN - F: NG tube - E: continue to monitor - N: tube feeds- osmolite. 1600mL/24hr 1920 kcal #DVT prophylaxis - NOAC
[2017-11-09 07:35] LABS: HEMATOCRIT 27.9 % (35.4-49); HEMOGLOBIN 8.7 GM/dL (11.7-16.9); MCH 31.7 pg (25.7-33.7); MCHC 31.2 g/dl (32.0-35.9); MEAN CELL VOLUME 101.6 fl (80-96); MEAN PLT VOLUME 10.7 fl (7.5-11.1); RBC 2.75 M/mm3 (4.00-5.60); RDW 16.6 % (11.9-15.9); WHITE BLOOD COUNT 12.2 K/mm3 (4.0-10.0)
[2017-11-09] MEDS ORDERED: PT OWN MED DRAWER 7, Y5N ONE (10:02)
[2017-11-09] MEDS: NICOTINE 7 MG/24 HOURS TOPICAL PATCH TD SCH ×2 (10:14→10:40)
[2017-11-09] MEDS: LYTES/YERBA SANTA 240 ML BOTTLE MM SCH (10:14)
[2017-11-09] MEDS: predniSONE 20 MG TABLET (UD) PO SCH (10:14)
[2017-11-09] MEDS: PANTOPRAZOLE SODIUM 40 MG VIAL IVPUSH SCH (10:15)
[2017-11-09 11:01] LABS: PLATELET COUNT 101.6 K/MM3 (134-434)
[2017-11-09] MEDS ORDERED: ceFAZolin 2 GRAM PREMIX BAG IVPB ONE ×2 (11:30→15:30)
--- NOTE | 2017-11-09 12:24 | PN ---
Teaching Attending Note Name of Resident: Evans Marie ATTENDING PHYSICIAN STATEMENT I saw and evaluated the patient. I reviewed the resident's note and discussed the case with the resident. I agree with the resident's findings and plan as documented. SUBJECTIVE: Patient seen and examined in the ICU. AC Mode of vent via Tracheostomy. 80% FiO2 Awake and alert and interactive. No pressors CXR: No gross change OBJECTIVE: Gen: Trached, awake and responsive Heart: RRR Lung: basilar rhonchi Abd: soft, nontender Ext: no edema Laboratory Results - last 24 hr 11/08/17 11/09/17 11/09/17 06:35 05:50 05:50 WBC 12.2 H RBC 2.75 L Hgb 8.7 L Hct 27.9 L MCV 101.6 H MCH 31.7 MCHC 31.2 L RDW 16.6 H Plt Count 101.6 L D MPV 10.7 PT with INR 11.50 INR 1.02 PTT (Actin FS) 20.5 L D Sodium Potassium Chloride Carbon Dioxide Anion Gap BUN Creatinine Random Glucose Calcium Creatine Kinase 54 Troponin I 0.02 11/09/17 05:50 WBC RBC Hgb Hct MCV MCH MCHC RDW Plt Count MPV PT with INR INR PTT (Actin FS) Sodium 139 Potassium 4.6 Chloride 97 L Carbon Dioxide 34 H Anion Gap 8 BUN 18 Creatinine 0.5 L D Random Glucose 179 H D Calcium 8.7 Creatine Kinase Troponin I Problem List - Problems (1) Acute respiratory failure with hypoxia Code(s): J96.01 - ACUTE RESPIRATORY FAILURE WITH HYPOXIA (2) Pneumonia Code(s): J18.9 - PNEUMONIA, UNSPECIFIED ORGANISM (3) Diabetes Code(s): E11.9 - TYPE 2 DIABETES MELLITUS WITHOUT COMPLICATIONS ASSESSMENT AND PLAN: Acute Hypoxic Respiratory Failure Pneumonia Sepsis Interstitial Lung Disease Acute Diastolic Heart Failure improved Acute Kidney Injury improving Lactic Acidosis resolved DM RLE DVT - ABX completed - Prednisone - taper FiO2 to keep SpO2 >90% - lasix as needed - monitor urine output, creatinine - monitor CXR - AC - For PEG Dr Souza Critical care time spent in reviewing chart, evaluating patient and formulating plan 35 min
--- NOTE | 2017-11-09 12:31 | PN ---
Physical Exam: SUBJECTIVE: Patient seen and examined Patient is a 62 year old male who was BIBEMS for hypoxic respiratory failure eating food, off of pressers, but with RLE DVT without PE s/p IVC filter, thrombectomy, catheter directed heparin infusion, requiring tracheostomy. Patient reports some improvement in his symptoms and is tolerating his tracheostomy. He is to have a PEG placement today. Otherwise no acute events overnight. OBJECTIVE: Vital Signs Period Temp Pulse Resp BP Sys/Sutton Pulse Ox Last 24 Hr 98 F-98.8 F 16-103 18-35 134-169/57-87 98 GENERAL: The patient is awake, and intubated, in no acute distress. HEAD: Normal with no signs of trauma. EYES: sclera anicteric, conjunctiva clear. No ptosis. ENT: oropharynx clear without exudates, moist mucous membranes. NECK: Trachea midline, full range of motion, supple. LUNGS: Breath sounds equal, Bilateral rales auscultated on exam, no wheezes, no accessory muscle use. HEART: Regular rate and rhythm, S1, S2 without murmur, rub or gallop. ABDOMEN: Soft, nontender, nondistended, normoactive bowel sounds, no guarding, no rebound, no hepatosplenomegaly, no masses. EXTREMITIES: 2+ pulses, warm, well-perfused, NEUROLOGICAL:Intubated gait not observed. PSYCH: Normal mood, normal affect. SKIN: Warm, dry, normal turgor, no rashes or lesions noted Laboratory Results - last 24 hr 11/08/17 11/09/17 11/09/17 06:35 05:50 05:50 WBC 12.2 H RBC 2.75 L Hgb 8.7 L Hct 27.9 L MCV 101.6 H MCH 31.7 MCHC 31.2 L RDW 16.6 H Plt Count 101.6 L D MPV 10.7 PT with INR 11.50 INR 1.02 PTT (Actin FS) 20.5 L D Sodium Potassium Chloride Carbon Dioxide Anion Gap BUN Creatinine Random Glucose Calcium Creatine Kinase 54 Troponin I 0.02 11/09/17 05:50 WBC RBC Hgb Hct MCV MCH MCHC RDW Plt Count MPV PT with INR INR PTT (Actin FS) Sodium 139 Potassium 4.6 Chloride 97 L Carbon Dioxide 34 H Anion Gap 8 BUN 18 Creatinine 0.5 L D Random Glucose 179 H D Calcium 8.7 Creatine Kinase Troponin I Active Medications Generic Name Dose Route Start Last Admin Trade Name Freq PRN Reason Stop Dose Admin Acetaminophen 650 mg 10/19/17 22:58 11/02/17 22:14 Tylenol - PO 650 mg Q6H PRN Administration FEVER OR PAIN Acetaminophen 1,000 mg 11/08/17 13:08 Ofirmev Injection - IVPB Q6H PRN FEVER Artificial Tears 1 applic 11/03/17 22:00 11/08/17 22:20 Artificial Tears Ointment - OU 1 applic HS SONAL Administration Chlorhexidine Gluconate 1 applic 10/17/17 22:00 11/08/17 22:14 Hibiclens For Decolonization - TP 1 applic HS SONAL Administration Dextrose 25 gm 11/01/17 21:49 11/02/17 08:47 D50w (Vial) - IVPUSH 25 gm DAILY PRN Administration hypoglycemia Fentanyl 50 mcg 11/09/17 01:32 11/09/17 01:51 Sublimaze Injection - IVPUSH 11/10/17 01:44 50 mcg Q1H PRN Administration PAIN LEVEL 4 - 6 Heparin Sodium (Porcine) 1,000 unit 11/09/17 01:33 Heparin - IVPUSH PRN PRN Heparin Heparin Sodium (Porcine) 5,000 unit 11/09/17 01:33 Heparin - IVPUSH PRN PRN Heparin HEPARIN SOD,PORK IN 0.45% NACL 25,000 unit in 500 mls @ 16 mls/hr 11/09/17 01: 45 11/09/17 02:35 Heparin-1/2ns 25,000 Units/500 IVPB Not Given TITR [facility] Protocol 800 UNITS/HR Insulin Aspart 1 vial 10/17/17 16:30 11/09/17 10:35 Novolog Vial Sliding Scale - SQ Not Given ACHS [facility] Protocol Nicotine 7 mg 10/19/17 12:45 11/09/17 10:40 Nicoderm Patch - TD 7 mg DAILY SONAL Administration Pantoprazole Sodium 40 mg 11/04/17 10:15 11/09/17 10:15 Protonix Iv IVPUSH 40 mg DAILY SONAL Administration Prednisone 40 mg 10/24/17 10:00 11/09/17 10:14 Deltasone - PO 40 mg DAILY SONAL Administration Saliva Substitute 1 applic 11/02/17 15:45 11/09/17 10:14 Mouthkote Solution - MM 1 applic DAILY SONAL Administration ASSESSMENT/PLAN: Patient is a 62 year old male who was BIBEMS for hypoxic respiratory failure eating food, off of pressers, but with RLE DVT without PE s/p IVC filter, thrombectomy, catheter directed heparin infusion, requiring tracheostomy. Neuro: #Nicotine Dependence: - Nicotine patch 7 MG daily CV: #Septic Shock vs. iatrogenic hypovolemic shock vs. cardiogenic shock: original presentation - Tachycardia of 105, Respiratory rate 26, Fever of 101, WBC of 11.7, Hypotension with SBP <90 with no response to IV fluids, and Lactic Acidosis of 3.6. Source unclear but likely PNA. Off pressers - Resolved #DVT: U/S positive for Right calf DVT, s/p thrombectomy - s/p IR direct infusion, doing well - Hepirin drip held this morning for Peg placement. #Chest Pain: - EKG unchanged Pulm: #Acute Hypoxic Respiratory Failure: Legionalla and strep negative. Zosyn and Vancomycin given in ED. Patient denies any recent hospitalization or abx use. Original chest X-ray reveals bilateral multifocal inflammatory changes (ARDS) vs. congestive heart failure. given JVD and crackles it is likely the later. treated for CAP. ECHO showing mild mitral regurg, mild/mod tricuspid regurg, mild PHTN. CT demonstrating diffuse interstitial lung disease AND XRs evidencing occasional volume overload. Patient currenty has a trach and is tolerating it well. - Continue Prednisone 40 daily - Patient currently trach on FiO2 of 80%. Will attempt to ween the patient's FiO2 to 75% in the afternoon. - All cultures negative ID: likely ILD with GGO vs. infectious pattern. HIV, influenza, strep, legionella neg. BCx NGTD, sputum Cx NGTD. Completed Azithromycin and Ceftriaxone for suspected CAP. All cultures neg and ID tests neg including cryptococcal - ID recs appreciated Renal: - CTM - Avoid nephrotoxic medications Heme: #Macrocytic Anemia: Hemoglobin 9.2 with MCV 101. Ferritin 882 (likely reactive) -Hb stable Endo #NIDDM: -Patient is no longer having hypoglycemic episodes requiring D50 pushes -Will continue to monitor BGM and provided D50 pushes as needed. -ISS : #BPH -Patient on Tamsulosin 0.4mg daily GI: #Peptic Ulcer Disease: History of mesh according to family and had Endoscopy two months. Was given medications according to patients daughter and completed course. - on PPI FEN -Electrolytes Repleted as needed. -Patient to have Peg placed today for nutrition. PPX: - Hep drip held for Peg placement. - Protonix Disposition: Continued ICU care. Visit type - Emergency Visit Emergency Visit: No - New Patient This patient is new to me today: No - Critical Care Critical Care patient: Yes Total Critical Care Time (in minutes): 35 Critical Care Statement: The care of this patient involved high complexity decision making to prevent further life threatening deterioration of the patient 's condition and/or to evaluate & treat vital organ system(s) failure or risk of failure.
--- NOTE | 2017-11-09 12:36 | PROC ---
Endoscopy Procedure Endoscopy procedure completed. Please see scanned procedure report.
--- NOTE | 2017-11-09 13:14 | PN ---
Teaching Attending Note Name of Resident: Dylon Reeves ATTENDING PHYSICIAN STATEMENT I saw and evaluated the patient. I reviewed the resident's note and discussed the case with the resident. I agree with the resident's findings and plan as documented. SUBJECTIVE:breathing is improved. no more recurrent episodes of CP. Denies CP, SOB, fever, chills, N/V/C/D OBJECTIVE: Last Vital Signs Temp Pulse Resp BP Pulse Ox 98.6 F 10 L 22 85/51 98 11/09/17 10:11/09/17 12:11/09/17 12:11/09/17 12:11/09/17 09:11 General NAD +bitemporal wasting, prominent clavicles CV S1 S2 RRR Lungs rhonchi diffusely, poor air entry extremities no pedal edema or tenderness ASSESSMENT AND PLAN: 62 yo M active smoker, pMHx of NIDDM, PUD, BPH admitted with acute hypoxic respiratory failure, and extensive RLE DVT 1. Acute hypoxic respiratory failure, suspect from ?ILD with pneumonitis- s/p intubation 11/03 with failed weaning and now s/p trach 11/07. on pred 40mg. was able to titrate down FiO2 to 80%. 2. RLE DVT- s/p IVC filter 10/20, thrombectmy 10/24. on heparin ggt. will convert to NOAC once no more procedures are planned 3. Atypical CP- likely musculoskeletal. now resolved. Troponins and EKG with no ST changes. evaluated by cardio no workup indicated at this time. 4. Acute diastolic heart failure- s/p intermittent lasix IV. no signs of volume overload. will hold for now 5. Sepsis, likely from PNA- completed abx course 6. MIRLANDE from sepsis- resolved 7. Thrombocytopenia- resolved. 8. continuous nicotine dependence- nicotine patch 9. cachexia- malnutrition evident by body habitus.NPO for PEG. will re-start Tube feeds as per GI 10. PPX- ppi/hep ggt 11. spoke iwth daughter present at bedside. all questions answered. was denied by LTACH due to insurance denial. daughter requesting to attempt another LTACH facility as she is not prepared to take him home. informed her that going home at this time is not a good option and that SNF placement would likely be better setting prior to going home. will request SW to speak with daughter. 12. stable for transfer to palliative care on board Total critical care time spent 35 min.
[2017-11-09] MEDS: ACETAMINOPHEN 325 MG TABLET (FP) PO PRN (15:15)
[2017-11-09] MEDS: CHLORHEXIDINE GLUCONATE 4% CLEANSER FOR DECOLONIZATION TP SCH (21:56)
[2017-11-09] MEDS: MINERAL OIL/PETROLATUM,WHITE 3.5 GM TUBE OU SCH (21:56)
[2017-11-10] MEDS: NYSTATIN 500,000 UNITS/5 ML SUSPENSION PO SCH
--- NOTE | 2017-11-10 05:29 | PN ---
Physical Exam: SUBJECTIVE: Patient seen and examined by me this AM - No major events overnight. Appears better clinically. Complaining of mild surgical site soreness. States breathing w/ little change. Denies any fever/ chills, CP, ab pain, N/V, peripheral edema, diarrhea, constipation, dysuria or new rashes. Plan for transfer to floors once vent settings are titrated down. Will start feeds through PEG tube today. OBJECTIVE: Vital Signs Intake & Output 11/07/17 11/08/17 11/09/17 11/10/17 23:59 23:59 23:59 23:59 Intake Total 928 1264 500 Output Total 1200 1100 1350 Balance -272 164 -850 Weight 70.171 kg 65.9 kg Period Temp Pulse Resp BP Sys/Sutton Pulse Ox Last 24 Hr 98.2 F-98.8 F 74-103 18-36 85-169/47-89 91-98 GENERAL: Cachectic man laying in bed, w/ trach in NAD HEAD: Normal with no signs of trauma. Bitemporal wasting EYES: PERRL, extraocular movements intact, sclera anicteric, conjunctiva clear. No ptosis. ENT: Ears normal, nares patent, oropharynx clear without exudates, moist mucous membranes. NECK: Trach collar in place, no significant erythema, bleeding or purulence. Trachea midline, supple. No JVD noted. LUNGS: Mechanical breath sounds. Diffuse crackles BL. No wheezes, no accessory muscle use HEART: 2/6 systolic ejection murmur at LUSB. Regular rate and rhythm, S1, S2 without murmur, rub or gallop. ABDOMEN: PEG tube in place, no erythema, drainage or purulence. Mild tenderness to palpation around PEG site. Otherwise, Soft, nontender, nondistended, normoactive bowel sounds, no guarding, no rebound, no hepatosplenomegaly, no masses. EXTREMITIES: No edema in LEs. 2+ pulses, warm, well-perfused NEUROLOGICAL: Cranial nerves II through XII grossly intact. Normal speech, gait not observed. PSYCH: Normal mood, normal affect. Appears depressed. SKIN: Warm, dry, normal turgor, no rashes or lesions noted Laboratory Results - last 24 hr CBC, BMP 11/10/17 05:25 11/10/17 05:25 11/09/17 05:50 11/09/17 05:50 11/09/17 11/09/17 11/09/17 05:50 05:50 05:50 WBC 12.2 H RBC 2.75 L Hgb 8.7 L Hct 27.9 L MCV 101.6 H MCH 31.7 MCHC 31.2 L RDW 16.6 H Plt Count 101.6 L D MPV 10.7 PT with INR 11.50 INR 1.02 PTT (Actin FS) 20.5 L D Sodium 139 Potassium 4.6 Chloride 97 L Carbon Dioxide 34 H Anion Gap 8 BUN 18 Creatinine 0.5 L D Random Glucose 179 H D Calcium 8.7 Active Medications Generic Name Dose Route Start Last Admin Trade Name Freq PRN Reason Stop Dose Admin Acetaminophen 650 mg 10/19/17 22:58 11/09/17 15:15 Tylenol - PO 650 mg Q6H PRN Administration FEVER OR PAIN Acetaminophen 1,000 mg 11/08/17 13:08 Ofirmev Injection - IVPB Q6H PRN FEVER Artificial Tears 1 applic 11/03/17 22:00 11/09/17 21:56 Artificial Tears Ointment - OU Not Given HS SONAL Chlorhexidine Gluconate 1 applic 10/17/17 22:00 11/09/17 21:56 Hibiclens For Decolonization - TP 1 applic HS SONAL Administration Dextrose 25 gm 11/01/17 21:49 11/02/17 08:47 D50w (Vial) - IVPUSH 25 gm DAILY PRN Administration hypoglycemia Insulin Aspart 1 vial 10/17/17 16:30 11/10/17 00:00 Novolog Vial Sliding Scale - SQ Not Given ACHS [facility] Protocol Nicotine 7 mg 10/19/17 12:45 11/09/17 10:40 Nicoderm Patch - TD 7 mg DAILY SONAL Administration Pantoprazole Sodium 40 mg 11/04/17 10:15 11/09/17 10:15 Protonix Iv IVPUSH 40 mg DAILY SONAL Administration Prednisone 40 mg 10/24/17 10:00 11/09/17 10:14 Deltasone - PO 40 mg DAILY SONAL Administration Saliva Substitute 1 applic 11/02/17 15:45 11/09/17 10:14 Mouthkote Solution - MM 1 applic DAILY SONAL Administration Microbiology 10/21/17 06:00 Serum Cryptococcal Antigen - Final 10/19/17 19:30 Sputum - Expectorated Gram Stain - Final 10/19/17 19:30 Sputum - Expectorated Sputum Culture - Final NORMAL RESPIRATORY TOYIN 10/17/17 10:10 Blood - Peripheral Venous Blood Culture - Final NO GROWTH AFTER 5 DAYS INCUBATION 10/17/17 10:10 Blood - Peripheral Venous Blood Culture - Final NO GROWTH AFTER 5 DAYS INCUBATION 10/17/17 13:57 Urine - Urine Clean Catch Urine Culture - Final NO GROWTH OBTAINED 10/17/17 13:57 Urine For Antigen Detection Legionella Antigen - Final 10/17/17 13:57 Urine For Antigen Detection Streptococcus pneumoniae Antigen (M - Final 10/17/17 10:25 Nasopharyngeal Swab Influenza Types A,B Antigen (CHUY) - Final 10/17/17 10:25 Nasopharyngeal Swab - Final Recent imaging: CXR 10/21/17 - Since 10/30/2017, the ARDS pattern has diminished minimally. Follow- up recommended. CT Abdomen 10/31 - The gallbladder demonstrates no definite CT pathology. There is nonspecific minimal to mild intrahepatic biliary tract dilatation. Clinical/ laboratory correlation is suggested as well as with follow-up CT. Dilatation of the main pancreatic duct as noted above. Pancreatic ductal dilatation was also noted on a 2013 ultrasound exam. Several small pancreatic head calcifications are seen suggestive of chronic calcific pancreatitis. No gross mass lesion is identified. Correlate with MRI/MRCP when the patient's clinical condition permits. No CT evidence of acute pancreatitis. Mild acute pancreatitis is frequently not demonstrable on CT or MRI. The partially imaged lower chest demonstrates prominent bilateral interstitial thickening with relative peripheral sparing - ? Noncardiogenic edema, infectious versus noninfectious pneumonitis, hemorrhage. Correlate clinically. This finding may be somewhat increased in comparison to a chest CT exam of 10/20/2017. No pleural effusion is seen. Bibasilar bronchiectasis. There is partial imaging of nonspecific mediastinal lymphadenopathy (as described on chest CT). Prominent atherosclerotic vascular calcifications. Mild to moderate L1 and mild L5 vertebral body compression fractures are noted which appear chronic. No bony retropulsion is seen. The visualized osseous structures appear to be diffusely demineralized. Clinical/laboratory correlation is suggested. Additional evaluation utilizing bone densitometry/DEXA scan may be considered. CXR 11/01 - Since a prior study of 10/31/2017, extensive opacification is identified throughout the lung james with little significant change. This is consistent with ARDS. No pleural effusions have developed. CXR 11/02 - No significant change from prior cxr. Still with BL reticulonodular diffuse opacification. CXR 11/05 - No significant change. BL reticulonodular pattern. CXR 11/06 - No change overall CXR 11/07 - Trach in place. Diffuse BL interstitial and possible alveolar changes. No pneumo or pleural effusions. ekg 11/08 - NSR, Rate 86, QTC 409, LVH, NANCY, no ST/Twave changes CXR 11/08 - No significant interval changes, BL parenchymal reticulonodular infiltrates, ETT tube, NG tube in place CXR 11/09 - no change from prior CXR 11/10 - No change 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 #Acute hypoxic respiratory failure - likely secondary to ILD of unknown etiology. Pt w/ prior smoking hx, worked in factory. Presumptive diagnosis ILD secondary to pneumonitis? Pt w/ trac plaed 11/07 - Trach placed 11/07. Vent setting 14/400/80%/ this AM. Episodes of desat to 88- 93% on 70%. Cont to attempt to wean down; possible transfer to floors if vent requirements continually improving - PEG placed, started feed today per Dr. Pardo - per ICU team, lung bx w/ too high risk of mortality currently - C/w prednisone - fentanyl prn for sedation - Once stable w/ decreased vent requirements, transfer to NH vs. LTACH placement. Goal of 50% Fio2 req for NH placement - tylenol for chest pain - Daliresp per ICU team #Extensive RLE DVT- IVC filter 10/20, thrombectomy 10/24; - Start Eliquis today, 5mg BID per Edvin recs #Hyperkalemia - 5.3 this AM; EKG w/ borderline peaked twaves in V2-V4 - Kayexylate via PEG - Repeat EKG in PM #Acute diastolic CHF failure - not volume overloaded; cont hold lasix - lasix as needed, none given - Cardiac monitoring #Leukocystosis - 12.1 today; possibly reactive; no fever overnight - cont to monitor for infectious symptoms - trend temp, WBC - if temp, send cultures, start abx #macrocytic Anemia - 9.3 today, uptrending; MCV 102; Vit B12 normal - Trend H/H - Transfuse at <7 - folate normal #IDDM- A1c 7.4 - No further episodes of hypoglycemia; Dextrose push PRN - Hold home oral hypoglycemics; monitor for signs of hypoglycemia - ISS - BGM q4h #BPH -c/w home flomax #nicotine dependence -nicotine patch -smoking cessation PPX Start Eliquis tomorrow PO ranitidine FEN PO fluids Daily BMPs Diabetic diet S/p PEG today. NH placement vs LTACH once vent requirements improve. Plan discussed with attending, Dr. Leroy Reeves, PGY1 Visit type - Emergency Visit Emergency Visit: Yes ED Registration Date: 10/17/17 Care time: The patient presented to the Emergency Department on the above date and was hospitalized for further evaluation of their emergent condition. - New Patient This patient is new to me today: No - Critical Care Critical Care patient: Yes Total Critical Care Time (in minutes): 35 Critical Care Statement: The care of this patient involved high complexity decision making to prevent further life threatening deterioration of the patient 's condition and/or to evaluate & treat vital organ system(s) failure or risk of failure.
[2017-11-10 06:10] LABS: HEMATOCRIT 29.8 % (35.4-49); HEMOGLOBIN 9.3 GM/dL (11.7-16.9); MCH 32.1 pg (25.7-33.7); MEAN CELL VOLUME 103.4 fl (80-96); MEAN PLT VOLUME 10.5 fl (7.5-11.1); PLATELET COUNT 265 K/MM3 (134-434); RBC 2.88 M/mm3 (4.00-5.60); RDW 16.8 % (11.9-15.9); WHITE BLOOD COUNT 12.1 K/mm3 (4.0-10.0)
[2017-11-10 06:38] LABS: ALBUMIN 2.4 g/dl (3.4-5.0); ANION GAP 9 (8-16); BILIRUBIN,TOTAL 0.5 mg/dL (0.2-1.0); BLOOD UREA NITROGEN 29 mg/dL (7-18); CHLORIDE 98 mmol/L (98-107); CO2 35 mmol/L (21-32); CREATININE 0.6 mg/dL (0.7-1.3); GLUCOSE,RANDOM 186 mg/dL (74-106); PHOSPHOROUS 4.3 mg/dL (2.5-4.9); POTASSIUM 5.3 mmol/L (3.5-5.1); SGOT/AST 7 U/L (15-37); SGPT/ALT 14 U/L (12-78); SODIUM 142 mmol/L (136-145); TOT PROT 8.5 g/dl (6.4-8.2)
[2017-11-10 06:39] LABS: ALK PHOS 88 U/L (45-117)
--- NOTE | 2017-11-10 07:24 | MSN ---
Progress Note (short form) - Note Progress Note: Subjective: Patient was seen this morning and complains of non-crushing, non-radiating left chest pain that is more prominent with inspiration and better with expiration. Patient has no other complains. States his breathing has improved slightly. Objective: Last Vital Signs Temp Pulse Resp BP Pulse Ox 98.0 F 70 18 160/83 94 L 11/10/17 10:00 11/10/17 10:00 11/10/17 10:00 11/10/17 10:00 11/10/17 09:57 Intake & Output 11/07/17 11/08/17 11/09/17 11/10/17 23:59 23:59 23:59 23:59 Intake Total 928 1264 500 Output Total 1200 1100 1350 400 Balance -272 164 -850 -400 Weight 154 lb 11.2 oz 145 lb 4.554 oz 145 lb 1.027 oz General: Patient seems to be comfortable, not anxious and in no apparent distress HEENT: bitemporal wasting. PERRL. tracheostomy tube in place. Heart: RRR, no rubs, murmurs or gallops appreciated. Lungs: accessory muscle use noted, bibasilar crackles, diminished breath sounds throughout. Abdomen: scaphoid, normoactive bowel sounds. bandage where PEG is in place, didnt notice drainage. Nontender to palpation. Extremities: 2+ pulses on UE and LE. No edema noted. CBC, BMP 11/10/17 05:25 11/10/17 05:25 Abnormal Lab Results 11/10/17 11/10/17 05:25 05:25 WBC 12.1 H RBC 2.88 L Hgb 9.3 L Hct 29.8 L MCV 103.4 H MCHC 31.0 L RDW 16.8 H Potassium 5.3 H Carbon Dioxide 35 H BUN 29 H D Creatinine 0.6 L Random Glucose 186 H AST 7 L D Total Protein 8.5 H Albumin 2.4 L Microbiology 10/21/17 06:00 Serum Cryptococcal Antigen - Final 10/19/17 19:30 Sputum - Expectorated Gram Stain - Final 10/19/17 19:30 Sputum - Expectorated Sputum Culture - Final NORMAL RESPIRATORY TOYIN 10/17/17 10:10 Blood - Peripheral Venous Blood Culture - Final NO GROWTH AFTER 5 DAYS INCUBATION 10/17/17 10:10 Blood - Peripheral Venous Blood Culture - Final NO GROWTH AFTER 5 DAYS INCUBATION 10/17/17 13:57 Urine - Urine Clean Catch Urine Culture - Final NO GROWTH OBTAINED 10/17/17 13:57 Urine For Antigen Detection Legionella Antigen - Final 10/17/17 13:57 Urine For Antigen Detection Streptococcus pneumoniae Antigen (M - Final 10/17/17 10:25 Nasopharyngeal Swab Influenza Types A,B Antigen ([facility]) - Final 10/17/17 10:25 Nasopharyngeal Swab - Final Imaging: - chest xray 11/10/17: unchanged - chest x-ray 11/07/17: s/p tracheostomy. no pneumothorax or soft tissue air accumulation seen. lung finding unchanged. - chest x-ray 11/01/17: extensive opacification throughout with little significant changes. consistent with ARDS. - abdominal CT 10/31/17: Several small pancreatic head calcification suggestive of chronic calcific pancreatitis. no acute pancreatitis. Lungs b/l internstitial thickening with relative peripheral sparing. Noncardiogenic edema infx vs noninfectious pneumonitis, hemorrhage. Bibasilae bronchiectasis. Nonspecific mediastinal lymphadenopathy. Prominent atherosclerotic vascular calcifications. Mild chronic L1-L5 body compression fractures. osseous structures diffusely de-mineralized. - chest x-ray 10/31/17: Since 10/30/2017, the ARDS pattern has diminished minimally - chest x-ray 10/30/17: Since 10/29/2017, the diffuse airspace changes are again noted. This has the appearance of an ARDS pattern. Follow-up recommended. - chest x-ray 10/29/17: Since 10/28/2017, the diffuse airspace changes are again noted which could indicate ARDS. - Leg US 10/20/17: DVT noted. There is occlusive thrombosis within the common, deep and superficial femoral veins, as well as the popliteal and posterior tibial veins. These veins are incompressible, an additional sign of DVT. The greater saphenous vein is patent, however, the lesser saphenous vein is also thrombosed. - Abd US 10/18/17: Moderate to marked gallbladder contraction is noted which may be physiologic in nature versus secondary to chronic cholecystitis. If clinically indicated correlate with two-week follow-up sonography with optimal pre - exam fasting. Gallbladder contraction was also described on a previous ultrasound exam of 03/25/2013. No sonographic evidence of acute cholecystitis. There is no obvious evidence of cholelithiasis allowing for previously described gallbladder contraction. No definite biliary tract dilatation is seen. The partially visualized pancreas demonstrates no gross sonographic abnormality. However, on the 2012 ultrasound study dilatation of the main pancreatic duct was described with a 0.5 cm diameter. Given this apparent finding on the prior study additional evaluation utilizing MRI/MRCP is suggested when the patient's clinical condition permits (unless already performed at a different facility). - Echo 10/17/17: normal left ventricle with mild reduced systolic function, EF 45. RV normal. mild to moderate mitral valve thickening. moderate mitral regurgitation. mild tricuspid regurgitation. mild pulmonary HTN. mild arotic steclerosis. no aortic regurgitation. no pericardial effusion. Assessment/ Plan: 62yo M smoker with PMH of NIDDM, PUD, BPH admitted with respiratory failure, severe sepsis, CHF who had extensive right LE DVT s/p IVC filter 10/20/17 and s/p thrombectomy 10/24/17. Patient had increased respiratory distress and had a tracheostomy tube placed on 11/07/17. PEG placed 11/09/17 # Hypoxic respiratory failure possibly from interstitial lung dz with pneumonitis, or CHF. etiology unknown. - tracheostomy tube placed on 11/07/17 - vent setting: RR: 14 Tv: 400 FiO2: 80 PEEP:8 - Prednisone (Deltasone -) 40 mg PO DAILY SONAL - LTAC denied by insurance - transfer to senior care once FiO2 <60? #Hyperkalemia - kayexylate through PEG # NIDDM. A1C 7.4. - diabetic diet. PEG tube feeds - Insulin Aspart (Novolog Vial Sliding Scale -) 1 vial SQ ACHS SONAL - Insulin Detemir (Levemir Vial) 10 units SQ DAILY SONAL - discontinued. # atypical chest pain - likely musculoskeletal - repeat EKG - no significant ECG changes, neg trops # RUQ abd pain- resolved - U/S on 10/18 was negative - abd CT negative for acute pathology # thrombocytopenia - possibly due to sepsis - resolved - HIT antibody sent and is unequivocal. Level 0.473 (N: <0.4) likely falsely elevated. KAY negative- HIT ruled out. # RLE DVT s/p IV filter on 10/20/17 and thrombectomy on 10/24/17 - resolved - Acetaminophen (Tylenol -) 650 mg PO Q6H PRN fever/ pain - continue heparin # severe sepsis likely secondary to CAP - bp stable. not on pressors. - Azithromycin and Ceftriaxone 7 days completed on 10/24/17 - blood cultures and sputum culture negative # macrocytic anemia - continue to monitor # BPH - continue home med of Tamsulosin 0.4mg PO daily # FEN - F: NG tube - E: continue to monitor - N: tube feeds- osmolite. 1600mL/24hr 1920 kcal #DVT prophylaxis - NOAC
[2017-11-10] MEDS ORDERED: PT OWN MED DRAWER 7, Y5N ONE (08:30)
--- NOTE | 2017-11-10 08:43 | PN ---
Physical Exam: SUBJECTIVE: Patient seen and examined Patient is a 62 year old male who was BIBEMS for hypoxic respiratory failure eating food, off of pressers, but with RLE DVT without PE s/p IVC filter, thrombectomy, catheter directed heparin infusion, requiring tracheostomy. Patient is s/p peg tube placement yesterday. Has no complaints currently. Otherwise no acute events overnight. OBJECTIVE: Vital Signs Period Temp Pulse Resp BP Sys/Sutton Pulse Ox Last 24 Hr 98.2 F-98.6 F 74-103 18-36 85-169/47-89 91-98 GENERAL: The patient is awake, and intubated, in no acute distress. HEAD: Normal with no signs of trauma. EYES: sclera anicteric, conjunctiva clear. No ptosis. ENT: oropharynx clear without exudates, moist mucous membranes. NECK: Trachea midline, full range of motion, supple. LUNGS: Breath sounds equal, Bilateral rales auscultated on exam, no wheezes, no accessory muscle use. HEART: Regular rate and rhythm, S1, S2 without murmur, rub or gallop. ABDOMEN: Soft, nontender, nondistended, normoactive bowel sounds, no guarding, no rebound, no hepatosplenomegaly, no masses. EXTREMITIES: 2+ pulses, warm, well-perfused, NEUROLOGICAL:Intubated gait not observed. PSYCH: Normal mood, normal affect. SKIN: Warm, dry, normal turgor, no rashes or lesions noted Laboratory Results - last 24 hr 11/09/17 11/10/17 11/10/17 05:50 05:25 05:25 WBC 12.2 H 12.1 H RBC 2.75 L 2.88 L Hgb 8.7 L 9.3 L Hct 27.9 L 29.8 L MCV 101.6 H 103.4 H MCH 31.7 32.1 MCHC 31.2 L 31.0 L RDW 16.6 H 16.8 H Plt Count 101.6 L D 265 D MPV 10.7 10.5 PTT (Actin FS) 30.1 D Sodium Potassium Chloride Carbon Dioxide Anion Gap BUN Creatinine Creat Clearance w eGFR Random Glucose Calcium Phosphorus Magnesium Total Bilirubin AST ALT Alkaline Phosphatase Total Protein Albumin 11/10/17 05:25 WBC RBC Hgb Hct MCV MCH MCHC RDW Plt Count MPV PTT (Actin FS) Sodium 142 Potassium 5.3 H Chloride 98 Carbon Dioxide 35 H Anion Gap 9 BUN 29 H D Creatinine 0.6 L Creat Clearance w eGFR > 60 Random Glucose 186 H Calcium 9.0 Phosphorus 4.3 Magnesium 2.0 Total Bilirubin 0.5 D AST 7 L D ALT 14 Alkaline Phosphatase 88 Total Protein 8.5 H Albumin 2.4 L Active Medications Generic Name Dose Route Start Last Admin Trade Name Freq PRN Reason Stop Dose Admin Acetaminophen 650 mg 10/19/17 22:58 11/09/17 15:15 Tylenol - PO 650 mg Q6H PRN Administration FEVER OR PAIN Acetaminophen 1,000 mg 11/08/17 13:08 Ofirmev Injection - IVPB Q6H PRN FEVER Artificial Tears 1 applic 11/03/17 22:00 11/09/17 21:56 Artificial Tears Ointment - OU Not Given HS SONAL Chlorhexidine Gluconate 1 applic 10/17/17 22:00 11/09/17 21:56 Hibiclens For Decolonization - TP 1 applic HS SONAL Administration Dextrose 25 gm 11/01/17 21:49 11/02/17 08:47 D50w (Vial) - IVPUSH 25 gm DAILY PRN Administration hypoglycemia Insulin Aspart 1 vial 10/17/17 16:30 11/10/17 00:00 Novolog Vial Sliding Scale - SQ Not Given ACHS [facility] Protocol Nicotine 7 mg 10/19/17 12:45 11/09/17 10:40 Nicoderm Patch - TD 7 mg DAILY SONAL Administration Pantoprazole Sodium 40 mg 11/04/17 10:15 11/09/17 10:15 Protonix Iv IVPUSH 40 mg DAILY SONAL Administration Prednisone 40 mg 10/24/17 10:00 11/09/17 10:14 Deltasone - PO 40 mg DAILY SONAL Administration Saliva Substitute 1 applic 11/02/17 15:45 11/09/17 10:14 Mouthkote Solution - MM 1 applic DAILY SONAL Administration ASSESSMENT/PLAN: Patient is a 62 year old male who was BIBEMS for hypoxic respiratory failure eating food, off of pressers, but with RLE DVT without PE s/p IVC filter, thrombectomy, catheter directed heparin infusion, requiring tracheostomy. Neuro: #Nicotine Dependence: - Nicotine patch 7 MG daily CV: #Septic Shock vs. iatrogenic hypovolemic shock vs. cardiogenic shock: original presentation - Tachycardia of 105, Respiratory rate 26, Fever of 101, WBC of 11.7, Hypotension with SBP <90 with no response to IV fluids, and Lactic Acidosis of 3.6. Source unclear but likely PNA. Off pressers - Resolved #DVT: U/S positive for Right calf DVT, s/p thrombectomy - s/p IR direct infusion, doing well - Will transition to Eliquis #Chest Pain: - EKG unchanged Pulm: #Acute Hypoxic Respiratory Failure: Legionalla and strep negative. Zosyn and Vancomycin given in ED. Patient denies any recent hospitalization or abx use. Original chest X-ray reveals bilateral multifocal inflammatory changes (ARDS) vs. congestive heart failure. given JVD and crackles it is likely the later. treated for CAP. ECHO showing mild mitral regurg, mild/mod tricuspid regurg, mild PHTN. CT demonstrating diffuse interstitial lung disease AND XRs evidencing occasional volume overload. Patient currenty has a trach and is tolerating it well. - Continue Prednisone 40 daily - Patient currently trach on FiO2 of 75%. Will attempt to ween the patient's FiO2 to 70% in the afternoon. - All cultures negative ID: likely ILD with GGO vs. infectious pattern. HIV, influenza, strep, legionella neg. BCx NGTD, sputum Cx NGTD. Completed Azithromycin and Ceftriaxone for suspected CAP. All cultures neg and ID tests neg including cryptococcal - ID recs appreciated Renal: - CTM - Avoid nephrotoxic medications Heme: #Macrocytic Anemia: Hemoglobin 9.2 with MCV 101. Ferritin 882 (likely reactive) -Hb stable Endo #NIDDM: -Patient is no longer having hypoglycemic episodes requiring D50 pushes -Will continue to monitor BGM and provided D50 pushes as needed. -ISS : #BPH -Patient on Tamsulosin 0.4mg daily GI: #Peptic Ulcer Disease: History of mesh according to family and had Endoscopy two months. Was given medications according to patients daughter and completed course. - on PPI FEN -Electrolytes Repleted as needed. -Patient to have Peg placed today for nutrition. PPX: - Plan to start eliquis - Protonix Disposition: Stable for floor transfer. Visit type - Emergency Visit Emergency Visit: No - New Patient This patient is new to me today: No - Critical Care Critical Care patient: Yes Total Critical Care Time (in minutes): 35 Critical Care Statement: The care of this patient involved high complexity decision making to prevent further life threatening deterioration of the patient 's condition and/or to evaluate & treat vital organ system(s) failure or risk of failure.
[2017-11-10] MEDS: PANTOPRAZOLE SODIUM 40 MG VIAL IVPUSH SCH (09:25)
[2017-11-10] MEDS: NICOTINE 7 MG/24 HOURS TOPICAL PATCH TD SCH (09:25)
[2017-11-10] MEDS: predniSONE 20 MG TABLET (UD) PO SCH (09:25)
[2017-11-10] MEDS: LYTES/YERBA SANTA 240 ML BOTTLE MM SCH (09:25)
[2017-11-10] MEDS: INSULIN SLIDING SCALE (NOVOLOG) 1 VIAL SQ SCH ×4 (10:23→23:16)
[2017-11-10] MEDS ORDERED: SODIUM POLYSTYRENE SULFONATE 15 GM/60 ML BOTTLE PEG ONE (11:00)
--- NOTE | 2017-11-10 11:00 | PN ---
Progress Note (short form) - Note Progress Note: Anesthesiology Post-op POD#1 s/p PEG placement under GA. Pt. awake, with tracheostomy in place. VSS. No apparent anesthesia-related issues.
--- NOTE | 2017-11-10 12:29 | PN ---
Teaching Attending Note Name of Resident: Evans Marie ATTENDING PHYSICIAN STATEMENT I saw and evaluated the patient. I reviewed the resident's note and discussed the case with the resident. I agree with the resident's findings and plan as documented. SUBJECTIVE: Patient seen and examined in the ICU. AC Mode of vent via Tracheostomy. 75% FiO2 with a saturation of 94%. Awake and alert and interactive. No pressors CXR: No gross change OBJECTIVE: Intake & Output 11/07/17 11/08/17 11/09/17 11/10/17 23:59 23:59 23:59 23:59 Intake Total 928 1264 500 Output Total 1200 1100 1350 400 Balance -272 164 -850 -400 Weight 154 lb 11.2 oz 145 lb 4.554 oz 145 lb 1.027 oz Last Vital Signs Temp Pulse Resp BP Pulse Ox 98.0 F 110 H 26 H 160/83 95 11/10/17 10:00 11/10/17 11:33 11/10/17 11:33 11/10/17 10:00 11/10/17 11:33 Active Medications Acetaminophen (Tylenol -) 650 mg PO Q6H PRN PRN Reason: FEVER OR PAIN Last Admin: 11/09/17 15:15 Dose: 650 mg Acetaminophen (Ofirmev Injection -) 1,000 mg IVPB Q6H PRN PRN Reason: FEVER Apixaban (Eliquis -) 5 mg PO BID [facility] Artificial Tears (Artificial Tears Ointment -) 1 applic OU HS [facility] Last Admin: 11/09/17 21:56 Dose: Not Given Chlorhexidine Gluconate (Hibiclens For Decolonization -) 1 applic TP HS [facility] Last Admin: 11/09/17 21:56 Dose: 1 applic Dextrose (D50w (Vial) -) 25 gm IVPUSH DAILY PRN PRN Reason: hypoglycemia Last Admin: 11/02/17 08:47 Dose: 25 gm Insulin Aspart (Novolog Vial Sliding Scale -) 1 vial SQ ACHS [facility] PRN Reason: Protocol Last Admin: 11/10/17 10:23 Dose: 4 units Nicotine (Nicoderm Patch -) 7 mg TD DAILY [facility] Last Admin: 11/10/17 09:25 Dose: 7 mg Pantoprazole Sodium (Protonix Iv) 40 mg IVPUSH DAILY [facility] Last Admin: 11/10/17 09:25 Dose: 40 mg Prednisone (Deltasone -) 40 mg PO DAILY [facility] Last Admin: 11/10/17 09:25 Dose: 40 mg Saliva Substitute (Mouthkote Solution -) 1 applic MM DAILY [facility] Last Admin: 11/10/17 09:25 Dose: 1 applic Gen: Trached, awake and responsive Heart: RRR Lung: basilar rhonchi Abd: soft, nontender Ext: no edema Laboratory Results - last 24 hr 11/10/17 11/10/17 11/10/17 05:25 05:25 05:25 WBC 12.1 H RBC 2.88 L Hgb 9.3 L Hct 29.8 L MCV 103.4 H MCH 32.1 MCHC 31.0 L RDW 16.8 H Plt Count 265 D MPV 10.5 PTT (Actin FS) 30.1 D Sodium 142 Potassium 5.3 H Chloride 98 Carbon Dioxide 35 H Anion Gap 9 BUN 29 H D Creatinine 0.6 L Creat Clearance w eGFR > 60 POC Glucometer Random Glucose 186 H Calcium 9.0 Phosphorus 4.3 Magnesium 2.0 Total Bilirubin 0.5 D AST 7 L D ALT 14 Alkaline Phosphatase 88 Total Protein 8.5 H Albumin 2.4 L 11/10/17 10:20 WBC RBC Hgb Hct MCV MCH MCHC RDW Plt Count MPV PTT (Actin FS) Sodium Potassium Chloride Carbon Dioxide Anion Gap BUN Creatinine Creat Clearance w eGFR POC Glucometer [phone] Random Glucose Calcium Phosphorus Magnesium Total Bilirubin AST ALT Alkaline Phosphatase Total Protein Albumin Problem List - Problems (1) Acute respiratory failure with hypoxia Code(s): J96.01 - ACUTE RESPIRATORY FAILURE WITH HYPOXIA (2) Pneumonia Code(s): J18.9 - PNEUMONIA, UNSPECIFIED ORGANISM (3) Diabetes Code(s): E11.9 - TYPE 2 DIABETES MELLITUS WITHOUT COMPLICATIONS ASSESSMENT AND PLAN: Acute Hypoxic Respiratory Failure Pneumonia Sepsis Interstitial Lung Disease Acute Diastolic Heart Failure improved Acute Kidney Injury improving Lactic Acidosis resolved DM RLE DVT - ABX completed - Prednisone - taper FiO2 to keep SpO2 >90% - lasix as needed - monitor urine output, creatinine - monitor CXR - AC - Enteral feeds - BD TX scheduled and PRN - Daliresp OD - Vent floor monitoring Dr Souza Critical care time spent in reviewing chart, evaluating patient and formulating plan 35 min
[2017-11-10] MEDS ORDERED: SODIUM POLYSTYRENE SULFONATE 15 GM/60 ML BOTTLE ONE (14:54)
[2017-11-10] MEDS ORDERED: ROFLUMILAST 500 MCG TABLET PO SCH (15:30)
[2017-11-10] MEDS ORDERED: ALBUTEROL SO4 2.5/IPRATROPIUM 0.5 INH SOL 3 ML VIAL.NEB. NEB SCH (16:00)
[2017-11-10] MEDS ORDERED: ALPRAZolam 0.25 MG TABLET PO ONE (16:30)
--- NOTE | 2017-11-10 16:39 | PN ---
Progress Note, Physician Chief Complaint: NO events. PEG intact. Pt offers no PEG-related complaints History of Present Illness: No events. Discussed with pt's daughter. - Current Medication List Current Medications: Active Medications Acetaminophen (Tylenol -) 650 mg PO Q6H PRN PRN Reason: FEVER OR PAIN Last Admin: 11/09/17 15:15 Dose: 650 mg Acetaminophen (Ofirmev Injection -) 1,000 mg IVPB Q6H PRN PRN Reason: FEVER Albuterol/Ipratropium (Duoneb -) 1 amp NEB RQID [facility] Apixaban (Eliquis -) 5 mg PO BID [facility] Artificial Tears (Artificial Tears Ointment -) 1 applic OU HS [facility] Last Admin: 11/09/17 21:56 Dose: Not Given Chlorhexidine Gluconate (Hibiclens For Decolonization -) 1 applic TP HS [facility] Last Admin: 11/09/17 21:56 Dose: 1 applic Insulin Aspart (Novolog Vial Sliding Scale -) 1 vial SQ ACHS [facility] PRN Reason: Protocol Last Admin: 11/10/17 10:23 Dose: 4 units Prednisone (Deltasone -) 40 mg PO DAILY [facility] Last Admin: 11/10/17 09:25 Dose: 40 mg Ranitidine HCl (Zantac -) 150 mg PO DAILY [facility] Roflumilast (Daliresp -) 500 mcg PO DAILY [facility] Saliva Substitute (Mouthkote Solution -) 1 applic MM DAILY [facility] Last Admin: 11/10/17 09:25 Dose: 1 applic - Objective Vital Signs: Vital Signs Temperature 98.0 F 11/10/17 10:00 Pulse Rate 115 H 11/10/17 16:00 Respiratory Rate 25 H 11/10/17 16:00 Blood Pressure 109/58 11/10/17 16:00 O2 Sat by Pulse Oximetry (%) 95 11/10/17 11:33 Gastrointestinal: Yes: Other (no bleeding, leak, or erythema at the PEG track. The site is tender to touch however) Labs: CBC, BMP 11/10/17 05:25 11/10/17 05:25 INR, PTT INR 1.02 (0.82-1.09) 11/09/17 05:50 Problem List - Problems (1) Failure to thrive Code(s): SSK4137 - (2) Failure to thrive in adult Code(s): R62.7 - ADULT FAILURE TO THRIVE (3) Acute respiratory failure with hypoxia Code(s): J96.01 - ACUTE RESPIRATORY FAILURE WITH HYPOXIA Assessment/Plan OK to use PEG as intended
--- NOTE | 2017-11-10 16:45 | PN ---
Teaching Attending Note Name of Resident: Dylon Reeves ATTENDING PHYSICIAN STATEMENT I saw and evaluated the patient. I reviewed the resident's note and discussed the case with the resident. I agree with the resident's findings and plan as documented. SUBJECTIVE:breathing improved. denies CP, SOB, fever, chills, cough OBJECTIVE: Last Vital Signs Temp Pulse Resp BP Pulse Ox 98.0 F 115 H 25 H 109/58 95 11/10/17 10:00 11/10/17 16:00 11/10/17 16:00 11/10/17 16:00 11/10/17 11:33 General NAD +bitemporal wasting, prominent clavicles CV S1 S2 RRR Lungs rhonchi diffusely, poor air entry ASSESSMENT AND PLAN: 62 yo M active smoker, pMHx of NIDDM, PUD, BPH admitted with acute hypoxic respiratory failure, and extensive RLE DVT 1. Acute hypoxic respiratory failure, suspect from ?ILD with pneumonitis- s/p intubation 11/03 with failed weaning and now s/p trach 11/07. on pred 40mg. was able to titrate down FiO2 to 75%. further weaning per ICU team. 2. RLE DVT- s/p IVC filter 10/20, thrombectmy 10/24. start eliquis 5mg BID. monitor for bleeding 3. Atypical CP- likely musculoskeletal. now resolved. Troponins and EKG with no ST changes. evaluated by cardio no workup indicated at this time. 4. Acute diastolic heart failure- s/p intermittent lasix IV. no signs of volume overload. will hold for now 5. Sepsis, likely from PNA- completed abx course 6. MIRLANDE from sepsis- resolved 7. Thrombocytopenia- resolved. 8. continuous nicotine dependence- nicotine patch 9. cachexia- malnutrition evident by body habitus. s/p PEG 11/09. 10. PPX- ppi/eliquis 11. wound continue MICU monitoring due to tenuous breathing status palliative care on board Total critical care time spent 38 min.
[2017-11-10] MEDS ORDERED: MIDAZOLAM HCL 2 MG/2 ML SINGLE DOSE VIAL IVPUSH ONE ×2 (18:37→18:40)
[2017-11-10] MEDS: ALBUTEROL SO4 2.5/IPRATROPIUM 0.5 INH SOL 3 ML VIAL.NEB. NEB SCH (20:11)
[2017-11-10 21:59] LABS: ANION GAP 5 (8-16); BLOOD UREA NITROGEN 47 mg/dL (7-18); CALCIUM 8.7 mg/dL (8.5-10.1); CHLORIDE 104 mmol/L (98-107); CO2 38 mmol/L (21-32); CREATININE 0.9 mg/dL (0.7-1.3); GLUCOSE,RANDOM 162 mg/dL (74-106); POTASSIUM 4.4 mmol/L (3.5-5.1); SODIUM 147 mmol/L (136-145)
[2017-11-10] MEDS: MINERAL OIL/PETROLATUM,WHITE 3.5 GM TUBE OU SCH (23:16)
[2017-11-10] MEDS: APIXABAN 5 MG TABLET PO SCH (23:16)
[2017-11-10] MEDS: ALPRAZolam 0.25 MG TABLET PO SCH (23:17)
[2017-11-10] MEDS: CHLORHEXIDINE GLUCONATE 4% CLEANSER FOR DECOLONIZATION TP SCH (23:17)
[2017-11-11 02:07] LABS: ARTERIAL BLD GAS O2 SATURATION 99.9 % (90-98.9); ARTERIAL BLOOD GAS BASE EXCESS 10.3 meq/l (-2-2); ARTERIAL BLOOD GAS PCO2 72.2 mmHg (35-45); ARTERIAL BLOOD GAS pH 7.34 (7.35-7.45)
[2017-11-11 02:09] LABS: ALLENS TEST POSITIVE
[2017-11-11 06:24] LABS: HEMATOCRIT 27.5 % (35.4-49); HEMOGLOBIN 8.8 GM/dL (11.7-16.9); MCHC 32.1 g/dl (32.0-35.9); MEAN CELL VOLUME 102.7 fl (80-96); MEAN PLT VOLUME 10.1 fl (7.5-11.1); PLATELET COUNT 232 K/MM3 (134-434); RBC 2.67 M/mm3 (4.00-5.60); RDW 16.7 % (11.9-15.9)
[2017-11-11 06:57] LABS: CHLORIDE 102 mmol/L (98-107); POTASSIUM 4.4 mmol/L (3.5-5.1); SODIUM 148 mmol/L (136-145)
[2017-11-11 07:06] LABS: ALBUMIN 2.4 g/dl (3.4-5.0); ALK PHOS 89 U/L (45-117); ANION GAP 6 (8-16); BILIRUBIN,TOTAL 0.5 mg/dL (0.2-1.0); BLOOD UREA NITROGEN 50 mg/dL (7-18); CALCIUM 8.9 mg/dL (8.5-10.1); CO2 40 mmol/L (21-32); CREATININE 0.8 mg/dL (0.7-1.3); GLUCOSE,RANDOM 210 mg/dL (74-106); MAGNESIUM 2.4 mg/dL (1.8-2.4); PHOSPHOROUS 3.7 mg/dL (2.5-4.9); SGOT/AST 6 U/L (15-37); SGPT/ALT 13 U/L (12-78)
[2017-11-11] MEDS: INSULIN SLIDING SCALE (NOVOLOG) 1 VIAL SQ SCH ×4 (07:07→22:27)
--- NOTE | 2017-11-11 08:14 | PN ---
Progress Note (short form) - Note Progress Note: staes breathing is about the same. continues to have non productive cough. denies CP, fever, chills, N/V/C/D Current Medications Generic Name Dose Route Start Last Admin Trade Name Freq PRN Reason Stop Dose Admin Acetaminophen 650 mg 10/19/17 22:58 11/09/17 15:15 Tylenol - PO 650 mg Q6H PRN Administration FEVER OR PAIN Acetaminophen 1,000 mg 11/08/17 13:08 Ofirmev Injection - IVPB Q6H PRN FEVER Albuterol/Ipratropium 1 amp 11/10/17 20:00 11/10/17 20:11 Duoneb - NEB 1 amp RQID [facility] Administration Alprazolam 0.25 mg 11/10/17 22:00 11/10/17 23:17 Xanax - PO 0.25 mg BID [facility] Administration Apixaban 5 mg 11/10/17 22:00 11/10/17 23:16 Eliquis - PO 5 mg BID [facility] Administration Artificial Tears 1 applic 11/03/17 22:00 11/10/17 23:16 Artificial Tears Ointment - OU Not Given HS [facility] Chlorhexidine Gluconate 1 applic 10/17/17 22:00 11/10/17 23:17 Hibiclens For Decolonization - TP 1 applic HS [facility] Administration Insulin Aspart 1 vial 10/17/17 16:30 11/11/17 07:07 Novolog Vial Sliding Scale - SQ 2 units ACHS [facility] Administration Protocol Prednisone 40 mg 10/24/17 10:00 11/10/17 09:25 Deltasone - PO 40 mg DAILY [facility] Administration Ranitidine HCl 150 mg 11/11/17 10:00 Zantac - PO DAILY [facility] Roflumilast 500 mcg 11/10/17 17:00 Daliresp - NGT DAILY [facility] Saliva Substitute 1 applic 11/02/17 15:45 11/10/17 09:25 Mouthkote Solution - MM 1 applic DAILY [facility] Administration Last Vital Signs Temp Pulse Resp BP Pulse Ox 98 F 84 20 119/65 94 L 11/11/17 06:00 11/11/17 06:00 11/11/17 06:52 11/11/17 06:00 11/10/17 22:00 General NAD +bitemporal wasting, prominent clavicles CV S1 S2 RRR Lungs rhonchi diffusely, poor air entry CBCD WBC 7.0 K/mm3 (4.0-10.0) D 11/11/17 06:10 RBC 2.67 M/mm3 (4.00-5.60) L 11/11/17 06:10 Hgb 8.8 GM/dL (11.7-16.9) L 11/11/17 06:10 Hct 27.5 % (35.4-49) L 11/11/17 06:10 MCV 102.7 fl (80-96) H 11/11/17 06:10 MCHC 32.1 g/dl (32.0-35.9) 11/11/17 06:10 RDW 16.7 % (11.9-15.9) H 11/11/17 06:10 Plt Count 232 K/MM3 (134-434) 11/11/17 06:10 MPV 10.1 fl (7.5-11.1) 11/11/17 06:10 CMP Sodium 148 mmol/L (136-145) H 11/11/17 06:10 Potassium 4.4 mmol/L (3.5-5.1) 11/11/17 06:10 Chloride 102 mmol/L (98-107) 11/11/17 06:10 Carbon Dioxide 40 mmol/L (21-32) H 11/11/17 06:10 Anion Gap 6 (8-16) L 11/11/17 06:10 BUN 50 mg/dL (7-18) H 11/11/17 06:10 Creatinine 0.8 mg/dL (0.7-1.3) 11/11/17 06:10 Creat Clearance w eGFR > 60 (>60) 11/11/17 06:10 Calcium 8.9 mg/dL (8.5-10.1) 11/11/17 06:10 Total Bilirubin 0.5 mg/dL (0.2-1.0) 11/11/17 06:10 AST 6 U/L (15-37) L 11/11/17 06:10 ALT 13 U/L (12-78) 11/11/17 06:10 Alkaline Phosphatase 89 U/L (45-117) 11/11/17 06:10 Total Protein 8.0 g/dl (6.4-8.2) 11/11/17 06:10 Albumin 2.4 g/dl (3.4-5.0) L 11/11/17 06:10 ASSESSMENT AND PLAN: 62 yo M active smoker, pMHx of NIDDM, PUD, BPH admitted with acute hypoxic respiratory failure, and extensive RLE DVT 1. Acute hypoxic respiratory failure, suspect from ?ILD with pneumonitis- s/p intubation 11/03 with failed weaning and now s/p trach 11/07. on pred 40mg. Tolerating FiO2 75%. further weaning per ICU team. 2. RLE DVT- s/p IVC filter 10/20, thrombectmy 10/24. on eliquis 5mg BID. monitor for bleeding 3. Atypical CP- likely musculoskeletal. now resolved. Troponins and EKG with no ST changes. evaluated by cardio no workup indicated at this time. 4. Acute diastolic heart failure- s/p intermittent lasix IV. clinically euvolemic. will hold for now 5. Sepsis, likely from PNA- completed abx course 6. MIRLANDE from sepsis- resolved 7. Thrombocytopenia- resolved. 8. continuous nicotine dependence- nicotine patch 9. cachexia- malnutrition evident by body habitus. s/p PEG 11/09. started tube feeds yesterday. tolerating well 10. Agitation- intermittent periods of agitation. now on 2 point restraints as he attempts to pull at vent. started on xanax BID and prn 11. PPX- ppi/eliquis 12. wound continue MICU monitoring due to tenuous breathing status. 13. palliative care on board. denied by LTACH. will need SNF placement. FIO2 needs to be <60% Total critical care time spent 35 min. Visit type - Emergency Visit Emergency Visit: Yes ED Registration Date: 10/17/17 Care time: The patient presented to the Emergency Department on the above date and was hospitalized for further evaluation of their emergent condition. - New Patient This patient is new to me today: No - Critical Care Critical Care patient: Yes Total Critical Care Time (in minutes): 35 Critical Care Statement: The care of this patient involved high complexity decision making to prevent further life threatening deterioration of the patient 's condition and/or to evaluate & treat vital organ system(s) failure or risk of failure. - Discharge Referral Referred to [facility] Med [facility].: No
[2017-11-11] MEDS: ALBUTEROL SO4 2.5/IPRATROPIUM 0.5 INH SOL 3 ML VIAL.NEB. NEB SCH ×4 (08:30→20:50)
[2017-11-11] MEDS ORDERED: PT OWN MED DRAWER 7, Y5N ONE (09:10)
[2017-11-11] MEDS: ROFLUMILAST 500 MCG TABLET NGT SCH (10:19)
[2017-11-11] MEDS: LYTES/YERBA SANTA 240 ML BOTTLE MM SCH (10:19)
[2017-11-11] MEDS: predniSONE 20 MG TABLET (UD) PO SCH (10:19)
[2017-11-11] MEDS: RANITIDINE HCL 150 MG TABLET (FP) PO SCH (10:19)
[2017-11-11] MEDS: APIXABAN 5 MG TABLET PO SCH ×2 (10:19→22:22)
[2017-11-11] MEDS: ALPRAZolam 0.25 MG TABLET PO SCH ×2 (10:39→22:22)
--- NOTE | 2017-11-11 12:21 | EKG ---
Test Reason : Blood Pressure : / mmHG Vent. Rate : 116 BPM Atrial Rate : 116 BPM P-R Int : 130 ms QRS Dur : 078 ms QT Int : 286 ms P-R-T Axes : 059 060 012 degrees QTc Int : 397 ms SINUS TACHYCARDIA RIGHT ATRIAL ENLARGEMENT VOLTAGE CRITERIA FOR LEFT VENTRICULAR HYPERTROPHY NONSPECIFIC ST ABNORMALITY ABNORMAL ECG WHEN COMPARED WITH ECG OF 08-NOV-2017 08:35, NO SIGNIFICANT CHANGE WAS FOUND Confirmed by MD MATT, MAGO ([id number]) on 11/11/2017 12:20:56 PM Referred By: AVINASH VELEZ Confirmed By:MAGO GUTIERREZ MD
[2017-11-11] MEDS ORDERED: MIDAZOLAM HCL 2 MG/2 ML SINGLE DOSE VIAL IVPUSH ONE ×2 (14:15)
[2017-11-11] MEDS ORDERED: ROCURONIUM BROMIDE 50 MG/5 ML VIAL IVPUSH ONE (14:15)
[2017-11-11] MEDS ORDERED: SUCCINYLCHOLINE CHLORIDE 200 MG/10 ML VIAL IVPUSH ONE (14:34)
[2017-11-11] MEDS ORDERED: PROPOFOL 1,000,000 MCG/100 ML VIAL ONE (14:39)
[2017-11-11] MEDS ORDERED: SUCCINYLCHOLINE CHLORIDE 200 MG/10 ML VIAL ONE (14:40)
[2017-11-11] MEDS: PROPOFOL 1,000,000 MCG/100 ML VIAL IVPB SCH (16:50)
--- NOTE | 2017-11-11 17:24 | PN ---
Progress Note (short form) - Note Progress Note: Anesthesiology Called by RN for assistance with tracheostomy change at bedside. Per ICU team, the recently placed tracheostomy tube was showing signs of an incompetent cuff. The COAL HANDLER had spoken with Dr. Rosario who advised that the tube be changed out. Prior to this procedure I discussed the plan with the COAL HANDLER as well as the ICU nurses at the bedside. All necessary supplies including emergency equipment was brought to the bedside. Pt. was placed on 100% FiO2. I pushed
--- NOTE | 2017-11-11 17:38 | PN ---
Progress Note, Physician Chief Complaint: Incompetent tracheostomy tube cuff History of Present Illness: Anesthesiology I was called by RN to assist with change out of tracheostomy tube at bedside. Per RN and respiratory therapist, the cuff was leaking and they were not able to fix this. The TEAM ASSEMBLY LINE MACHINE OPERATOR had spoken with Dr. Rosario who suggested that the tube be changed out for a new one. - Current Medication List Current Medications: Active Medications Acetaminophen (Tylenol -) 650 mg PO Q6H PRN PRN Reason: FEVER OR PAIN Last Admin: 11/09/17 15:15 Dose: 650 mg Acetaminophen (Ofirmev Injection -) 1,000 mg IVPB Q6H PRN PRN Reason: FEVER Albuterol/Ipratropium (Duoneb -) 1 amp NEB RQID [facility] Last Admin: 11/11/17 16:13 Dose: 1 amp Alprazolam (Xanax -) 0.25 mg PO BID [facility] Last Admin: 11/11/17 10:39 Dose: Not Given Apixaban (Eliquis -) 5 mg PO BID [facility] Last Admin: 11/11/17 10:19 Dose: 5 mg Artificial Tears (Artificial Tears Ointment -) 1 applic OU HS [facility] Last Admin: 11/10/17 23:16 Dose: Not Given Chlorhexidine Gluconate (Hibiclens For Decolonization -) 1 applic TP HS [facility] Last Admin: 11/10/17 23:17 Dose: 1 applic Propofol (Diprivan -) 1,000,000 mcg in 100 mls @ 1.96 mls/hr IVPB TITR [facility]; 5 MCG/KG/MIN PRN Reason: Protocol Last Admin: 11/11/17 16:50 Dose: 25.51 mcg/kg/min, 10 mls/hr Insulin Aspart (Novolog Vial Sliding Scale -) 1 vial SQ ACHS [facility] PRN Reason: Protocol Last Admin: 11/11/17 17:14 Dose: 6 units Prednisone (Deltasone -) 40 mg PO DAILY [facility] Last Admin: 11/11/17 10:19 Dose: 40 mg Ranitidine HCl (Zantac -) 150 mg PO DAILY [facility] Last Admin: 11/11/17 10:19 Dose: 150 mg Roflumilast (Daliresp -) 500 mcg NGT DAILY [facility] Last Admin: 11/11/17 10:19 Dose: 500 mcg Saliva Substitute (Mouthkote Solution -) 1 applic MM DAILY [facility] Last Admin: 11/11/17 10:19 Dose: 1 applic - Objective Vital Signs: Vital Signs Temperature 98.2 F 11/11/17 14:00 Pulse Rate 103 H 11/11/17 14:00 Respiratory Rate 22 11/11/17 16:46 Blood Pressure 139/60 11/11/17 14:00 O2 Sat by Pulse Oximetry (%) 99 11/11/17 09:08 Constitutional: Yes: Cachectic Cardiovascular: Yes: Tachycardia Respiratory: Yes: Mechanically Ventilated Neurological: Yes: Alert Labs: CBC, BMP 11/11/17 06:10 11/11/17 06:10 INR, PTT INR 1.02 (0.82-1.09) 11/09/17 05:50 Assessment/Plan After thorough discussion of the plan for this tube change out with the team, all necessary supplies were brought to the bedside, including emergency equipment for airway management. I also informed the patient of the plan. The patient was placed on 100% FiO2. I then pushed Propofol 100mg IV followed by Succinylcholine 80mg IV. The TEAM ASSEMBLY LINE MACHINE OPERATOR then successfully performed the tube change. The cuff was inflated and the airway was secured. Pre-procedure VS: BP 130/72 HR100 SpO2 100%. Immediate post-procedure VS: BP 80/60, HR 120, SpO2 100%. BP has subsequently recovered without incident and the pt. is currently awake at his baseline. Total time spent was approximately 30min. Thank you and please do not hesitate to contact Anesthesiology in the future for any further assistance.
[2017-11-11] MEDS ORDERED: HYDROmorphone HCL CARPU-JECT 2 MG/1 ML DISP.SYRIN IVPUSH ONE (17:40)
--- NOTE | 2017-11-11 17:42 | PN ---
Progress Note (short form) - Note Progress Note: PULM/CCM Pt Seen & Examined in the ICU. Tracheostomy issues from this AM resolved w/ fresh Trach Change, pt is CA+OX3 & Happy. Active Medications Acetaminophen (Tylenol -) 650 mg PO Q6H PRN PRN Reason: FEVER OR PAIN Last Admin: 11/09/17 15:15 Dose: 650 mg Acetaminophen (Ofirmev Injection -) 1,000 mg IVPB Q6H PRN PRN Reason: FEVER Albuterol/Ipratropium (Duoneb -) 1 amp NEB RQID [facility] Last Admin: 11/11/17 16:13 Dose: 1 amp Alprazolam (Xanax -) 0.25 mg PO BID [facility] Last Admin: 11/11/17 10:39 Dose: Not Given Apixaban (Eliquis -) 5 mg PO BID [facility] Last Admin: 11/11/17 10:19 Dose: 5 mg Artificial Tears (Artificial Tears Ointment -) 1 applic OU HS [facility] Last Admin: 11/10/17 23:16 Dose: Not Given Chlorhexidine Gluconate (Hibiclens For Decolonization -) 1 applic TP HS [facility] Last Admin: 11/10/17 23:17 Dose: 1 applic Propofol (Diprivan -) 1,000,000 mcg in 100 mls @ 1.96 mls/hr IVPB TITR [facility]; 5 MCG/KG/MIN PRN Reason: Protocol Last Admin: 11/11/17 16:50 Dose: 25.51 mcg/kg/min, 10 mls/hr Insulin Aspart (Novolog Vial Sliding Scale -) 1 vial SQ ACHS [facility] PRN Reason: Protocol Last Admin: 11/11/17 17:14 Dose: 6 units Prednisone (Deltasone -) 40 mg PO DAILY [facility] Last Admin: 11/11/17 10:19 Dose: 40 mg Ranitidine HCl (Zantac -) 150 mg PO DAILY [facility] Last Admin: 11/11/17 10:19 Dose: 150 mg Roflumilast (Daliresp -) 500 mcg NGT DAILY [facility] Last Admin: 11/11/17 10:19 Dose: 500 mcg Saliva Substitute (Mouthkote Solution -) 1 applic MM DAILY [facility] Last Admin: 11/11/17 10:19 Dose: 1 applic V/S Period Temp Pulse Resp BP Sys/Sutton Pulse Ox Last 24 Hr 98 F-98.4 F 80-109 18-28 95-142/55-66 94-100 Intake & Output 11/08/17 11/09/17 11/10/17 11/11/17 23:59 23:59 23:59 23:59 Intake Total 1264 500 Output Total 1100 1350 600 180 Balance 164 -850 -600 -180 Weight 70.171 kg 65.9 kg 65.8 kg 65.317 kg GEN: Wasted cachectic middle aged man HEENT: PERRL, an-icteric, +bitemporal wasting PULM: Notice, prominent clavicles, diffuse ronchi, poor air entry CV: nml S1 S2 RRR ABD: Scaphois, +BS, S/S N/T N/D X4Q CBC, BMP 11/11/17 06:10 11/11/17 06:10 MICRO 10/21/17 06:00 Serum Cryptococcal Antigen - Final 10/19/17 19:30 Sputum - Expectorated Gram Stain - Final 10/19/17 19:30 Sputum - Expectorated Sputum Culture - Final NORMAL RESPIRATORY TOYIN 10/17/17 10:10 Blood - Peripheral Venous Blood Culture - Final NO GROWTH AFTER 5 DAYS INCUBATION 10/17/17 10:10 Blood - Peripheral Venous Blood Culture - Final NO GROWTH AFTER 5 DAYS INCUBATION 10/17/17 13:57 Urine - Urine Clean Catch Urine Culture - Final NO GROWTH OBTAINED 10/17/17 13:57 Urine For Antigen Detection Legionella Antigen - Final 10/17/17 13:57 Urine For Antigen Detection Streptococcus pneumoniae Antigen (M - Final 10/17/17 10:25 Nasopharyngeal Swab Influenza Types A,B Antigen ([facility]) - Final 10/17/17 10:25 Nasopharyngeal Swab - Final RECENT STUDIES TO NOTE: CXR 11/11: Since the prior study of 11/10/2017, the diffuse airspace changes with tracheostomy tube persist. Impression: No significant change. ASSESS: Acute Hypoxic Respiratory Failure Pneumonia Sepsis Interstitial Lung Disease Acute Diastolic Heart Failure improved Acute Kidney Injury improving Lactic Acidosis resolved DM RLE DVT PLAN: -Vent Support prn -Can use NIPPV modes for comfort -Wean FiO2 as tolerated -Nebs -Steroids -Daliresp -Gentle diuresis -Strict I's & O's -Monitor UOP -Trend BUN/Cr -Replete e-lytes prn -Cont Eliquis -TFs --> Vital 1.2 -FSs -SSI -Zantac -Vent floor monitoring DGL, ACNP-[facility] ICU PULM/CCM 4436 Critical Care Total Critical Care Time (in minutes): 60 Critical Care Statement: The care of this patient involved high complexity decision making to prevent further life threatening deterioration of the patient 's condition and/or to evaluate & treat vital organ system(s) failure or risk of failure.
[2017-11-11] MEDS ORDERED: HYDROmorphone HCL CARPU-JECT 2 MG/1 ML DISP.SYRIN ONE (17:44)
[2017-11-11] MEDS: MINERAL OIL/PETROLATUM,WHITE 3.5 GM TUBE OU SCH (21:54)
[2017-11-11] MEDS: NYSTATIN 500,000 UNITS/5 ML SUSPENSION PO SCH (21:54)
[2017-11-11] MEDS: CHLORHEXIDINE GLUCONATE 4% CLEANSER FOR DECOLONIZATION TP SCH (22:22)
[2017-11-12 06:37] LABS: HEMATOCRIT 29.5 % (35.4-49); HEMOGLOBIN 9.2 GM/dL (11.7-16.9); MCH 32.5 pg (25.7-33.7); MCHC 31.2 g/dl (32.0-35.9); MEAN CELL VOLUME 104.2 fl (80-96); MEAN PLT VOLUME 10.5 fl (7.5-11.1); PLATELET COUNT 272 K/MM3 (134-434); RBC 2.83 M/mm3 (4.00-5.60); RDW 17.3 % (11.9-15.9); WHITE BLOOD COUNT 9.3 K/mm3 (4.0-10.0)
[2017-11-12] MEDS: INSULIN SLIDING SCALE (NOVOLOG) 1 VIAL SQ SCH ×4 (07:00→22:45)
--- NOTE | 2017-11-12 08:00 | PN ---
Teaching Attending Note Name of Resident: Suzy Collado ATTENDING PHYSICIAN STATEMENT I saw and evaluated the patient. I reviewed the resident's note and discussed the case with the resident. I agree with the resident's findings and plan as documented. SUBJECTIVE:breathing is more comfortable. denies CP, SOB, fever, chills, cough, N/V/C/D OBJECTIVE: Last Vital Signs Temp Pulse Resp BP Pulse Ox 97.9 F 94 H 22 130/66 100 11/12/17 02:00 11/12/17 03:00 11/12/17 06:30 11/12/17 03:00 11/11/17 22:00 Intake & Output 11/09/17 11/10/17 11/11/17 11/12/17 23:59 23:59 23:59 23:59 Intake Total 500 Output Total 1350 600 180 Balance -850 -600 -180 Weight 145 lb 4.554 oz 145 lb 1.027 oz 144 lb General NAD, thin, cachectic CV S1 S2 RRR no murmru/rub/gallop Lungs coarse breath sounds diffusely ASSESSMENT AND PLAN: 62 yo M active smoker, pMHx of NIDDM, PUD, BPH admitted with acute hypoxic respiratory failure, and extensive RLE DVT 1. Acute hypoxic respiratory failure, suspect from ?ILD with pneumonitis- s/p intubation 11/03 with failed weaning and now s/p trach 11/07. trach exchanged yesterday after cuff leak. on pred 40mg. Tolerating FiO2 75%. spoke with ICU SCENERY BUILDER , will titrate down Fio2 and monitor. further weaning per ICU team. 2. RLE DVT- s/p IVC filter 10/20, thrombectmy 10/24. on eliquis 5mg BID. monitor for bleeding 3. Atypical CP- likely musculoskeletal. no recurring episodes. Troponins and EKG with no ST changes. evaluated by cardio no workup indicated at this time. 4. Acute diastolic heart failure- s/p intermittent lasix IV. clinically euvolemic. will hold for now 5. Sepsis, likely from PNA- completed abx course 6. MIRLANDE from sepsis- resolved 7. Thrombocytopenia- resolved. 8. continuous nicotine dependence- nicotine patch 9. cachexia- malnutrition evident by body habitus. s/p PEG 11/09. tolerating tube feeds. 10. Agitation- intermittent periods of agitation. now on 2 point restraints as he attempts to pull at vent. on xanax BID and prn 11. PPX- ppi/eliquis 12. wound continue MICU monitoring due to tenuous breathing status. 13. palliative care on board. Spoke with julio cesar at bedside. Asked if she could bring her father home. recommended this is not a good option straight from the hospital as there are many things that need to be evaluated to ensure the apartment is equipped to have the vent at the home. also informed the around the clock care he will require which will fall on the family to provide. Informed her this can be further explored once he stablized more and having lower vent requirements. verbalized understanding and agreement. SW to give vent approved facilities to her tomorrow so that she can evaluate them and see if she has a preference. Total critical care time spent 35 min.
[2017-11-12] MEDS: ALBUTEROL SO4 2.5/IPRATROPIUM 0.5 INH SOL 3 ML VIAL.NEB. NEB SCH ×4 (08:30→20:30)
[2017-11-12] MEDS: LYTES/YERBA SANTA 240 ML BOTTLE MM SCH (11:00)
[2017-11-12] MEDS ORDERED: PT OWN MED DRAWER 7, Y5N ONE ×2 (11:05→21:41)
--- NOTE | 2017-11-12 11:18 | PN ---
Physical Exam: SUBJECTIVE: Patient seen and examined at bed side this morning. Looks better than Monday. Wants to drink water. Denies chest pain, sob, cough, palpitation, abdominal pain, nausea or vomiting. Vent settings @ 18/400/75/8 No acute overnight events. Yesterday evening, trach was changed as the RN heard abnormal sound from the trach which resolved after the trach was changed by the ICU SEX THERAPIST. In the Tele, it shows he desaturated. RN mentions he desats every time he is anxious. OBJECTIVE: Vital Signs Period Temp Pulse Resp BP Sys/Sutton Pulse Ox Last 24 Hr 97.9 F-98.2 F 80-109 18-28 104-146/55-70 99-100 GENERAL: Thinly built male, sitting comfortably in bed, is awake, alert, and fully oriented, in no acute distress. HEAD: Normal with no signs of trauma. EYES: EOM intact, no pallor or icterus. ENT: Ears normal, nares patent, oropharynx clear without exudates, moist mucous membranes. NECK: Trach in place,supple. LUNGS: B/L coarse Breath sounds-improved, no wheezes, no accessory muscle use. HEART: Tachycardic, Regular rate and rhythm, S1, S2 without murmur. ABDOMEN: Scaphoid abdomen, mess felt on exam, Soft, nontender, nondistended, normoactive bowel sounds, no guarding, no rebound, no hepatosplenomegaly, no masses. EXTREMITIES: 2+ pulses, warm, well-perfused, no edema. NEUROLOGICAL: No facial droop, power 5/5 in all extremities, Non verbal due to trach placement, gait not observed. PSYCH: Normal mood, normal affect. SKIN: Warm, dry, normal turgor, no rashes or lesions noted Laboratory Results - last 24 hr 11/12/17 11/12/17 06:15 06:15 WBC 9.3 D RBC 2.83 L Hgb 9.2 L Hct 29.5 L MCV 104.2 H MCH 32.5 MCHC 31.2 L RDW 17.3 H Plt Count 272 MPV 10.5 PTT (Actin FS) 33.0 Active Medications Generic Name Dose Route Start Last Admin Trade Name Freq PRN Reason Stop Dose Admin Acetaminophen 650 mg 10/19/17 22:58 11/09/17 15:15 Tylenol - PO 650 mg Q6H PRN Administration FEVER OR PAIN Acetaminophen 1,000 mg 11/08/17 13:08 Ofirmev Injection - IVPB Q6H PRN FEVER Albuterol/Ipratropium 1 amp 11/10/17 20:00 11/12/17 08:30 Duoneb - NEB 1 amp RQID SONAL Administration Alprazolam 0.25 mg 11/10/17 22:00 11/11/17 22:22 Xanax - PO 0.25 mg BID SONAL Administration Apixaban 5 mg 11/10/17 22:00 11/11/17 22:22 Eliquis - PO 5 mg BID SONAL Administration Artificial Tears 1 applic 11/03/17 22:00 11/11/17 21:54 Artificial Tears Ointment - OU Not Given HS SONAL Chlorhexidine Gluconate 1 applic 10/17/17 22:00 11/11/17 22:22 Hibiclens For Decolonization - TP 1 applic HS SONAL Administration Propofol 1,000,000 mcg in 100 mls @ 1.96 mls/hr 11/11/17 14:45 11/11/17 16:50 Diprivan - IVPB 25.51 mcg/kg/min TITR SONAL 10 mls/hr Protocol Administration 5 MCG/KG/MIN Insulin Aspart 1 vial 10/17/17 16:30 11/12/17 07:00 Novolog Vial Sliding Scale - SQ 6 units ACHS SONAL Administration Protocol Prednisone 40 mg 10/24/17 10:00 11/11/17 10:19 Deltasone - PO 40 mg DAILY [facility]ONAL Administration Ranitidine HCl 150 mg 11/11/17 10:00 11/11/17 10:19 Zantac - PO 150 mg DAILY [facility]ONAL Administration Roflumilast 500 mcg 11/10/17 17:00 11/11/17 10:19 Daliresp - NGT 500 mcg DAILY SONAL Administration Saliva Substitute 1 applic 11/02/17 15:45 11/11/17 10:19 Mouthkote Solution - MM 1 applic DAILY SONAL Administration ASSESSMENT/PLAN: Patient is a 62 year old male who was BIBEMS for hypoxic respiratory failure eating food, off of pressers, but with RLE DVT without PE s/p IVC filter, thrombectomy, catheter directed heparin infusion, requiring tracheostomy. # Acute hypoxic respiratory failure likely secondary to ILD vs Pneumonitis Likely contributed by smoking and occupation (worked in a factory for years) Trached 11/07/17 after he failed weaning. Trach changed on 11/11/17. Vent settings @ 18/400/75/8, Fio2 decreased from 80% x 2days. Off antibiotics. On Prednisone 40mg thro PEG Roflumilast Duoneb QID Plan: LTACH denied. aircraft lay out worker is on board and trying to find a placement. Too weak for a lung biopsy. # Hypernatremia Na 148, Free water deficit 1.9 L Water flushes thro PEG 20mls Q4H, will repeat Na level tomorrow and readjust the flushes. # Anxiety Saturation decreases and sob increases when he gets anxious. Getting better after the addition of Xanax 0.5mg PEG BID Received one xanax at 11:22pm last night and has been calm since. # Atypical chest pain-resolved. Ruled out ACS. Likely musculoskeletal in origin # DVT in the Right lower extremity IVC filter placed on 10/20, thrombectmy 10/24. Heparin drip changed to Eliquis 5mg BID thro PEG. No bleeding at this time. # Acute on chronic diastolic heart failure-currently Euvolemic. No crackles b/l, no pitting edema, SOB has improved, will hold off lasix # Hyperkalemia-Resolved. # Leukocytosis due to Sepsis from pneumonia- Resolved after completion of antibiotics # Macrocytic anemia H/H stable: 9.2/29.5, monitor # Diabetes Mellitus A1c 7.4 ISS-received 16 U over 24 hrs Finger stick glucose monitoring Watch for hypoglycemic episodes # BPH Flomax 0.4 mg on hold as it cannot be given thro PEG. # Nicotine dependence Smoking cessation # Prophylaxis For DVT: On Eliquis 5mg BID thro PEG For GI: Not indicated # FEN Not on IV fluids Electrolytes to be repeated in am Tube feeds 1.2 Vital @ 30mls/hr--> increase to 60 as tolerated # Code Status: Full Code # Dispo: Pending placement to NH (Fio2 needs to be > 60 %) or LTACH. aircraft lay out worker on board. Illness, Investigation and Plan of care explained to the patient. Case discussed with Dr. Harper. Visit type - Emergency Visit Emergency Visit: Yes ED Registration Date: 10/17/17 Care time: The patient presented to the Emergency Department on the above date and was hospitalized for further evaluation of their emergent condition. - New Patient This patient is new to me today: No - Critical Care Critical Care patient: Yes Total Critical Care Time (in minutes): 35 Critical Care Statement: The care of this patient involved high complexity decision making to prevent further life threatening deterioration of the patient 's condition and/or to evaluate & treat vital organ system(s) failure or risk of failure. - Discharge Referral Referred to [facility] Med [facility].C.: No
[2017-11-12] MEDS: ALPRAZolam 0.25 MG TABLET PO SCH ×2 (11:25→22:45)
[2017-11-12] MEDS: predniSONE 20 MG TABLET (UD) PO SCH (11:25)
[2017-11-12] MEDS: RANITIDINE HCL 150 MG TABLET (FP) PO SCH (11:28)
[2017-11-12] MEDS ORDERED: INSULIN (NOVOLOG) ASPART 100 UNITS/ML 10ML VIAL ONE (11:40)
[2017-11-12] MEDS ORDERED: HEMOQUE TEST 1 EACH EACH ONE (11:40)
[2017-11-12] MEDS: ROFLUMILAST 500 MCG TABLET NGT SCH (14:00)
[2017-11-12] MEDS: APIXABAN 5 MG TABLET PO SCH ×2 (14:00→22:45)
--- NOTE | 2017-11-12 17:32 | PN ---
Progress Note (short form) - Note Progress Note: PULM/CCM Pt Seen & Examined in the ICU. No repeat of any of the Tracheostomy issues from yesterday w/ the fresh Trach Change, pt is CA+OX3 & Happy. Daughter requesting to take pt home. Active Medications Acetaminophen (Tylenol -) 650 mg PO Q6H PRN PRN Reason: FEVER OR PAIN Last Admin: 11/09/17 15:15 Dose: 650 mg Acetaminophen (Ofirmev Injection -) 1,000 mg IVPB Q6H PRN PRN Reason: FEVER Albuterol/Ipratropium (Duoneb -) 1 amp NEB RQID [facility] Last Admin: 11/12/17 15:20 Dose: 1 amp Alprazolam (Xanax -) 0.25 mg PO BID [facility] Last Admin: 11/12/17 11:25 Dose: 0.25 mg Apixaban (Eliquis -) 5 mg PO BID [facility] Last Admin: 11/12/17 14:00 Dose: 5 mg Artificial Tears (Artificial Tears Ointment -) 1 applic OU HS [facility] Last Admin: 11/11/17 21:54 Dose: Not Given Chlorhexidine Gluconate (Hibiclens For Decolonization -) 1 applic TP HS [facility] Last Admin: 11/11/17 22:22 Dose: 1 applic Propofol (Diprivan -) 1,000,000 mcg in 100 mls @ 1.96 mls/hr IVPB TITR SONAL; 5 MCG/KG/MIN PRN Reason: Protocol Last Admin: 11/11/17 16:50 Dose: 25.51 mcg/kg/min, 10 mls/hr Insulin Aspart (Novolog Vial Sliding Scale -) 1 vial SQ ACHS [facility] PRN Reason: Protocol Last Admin: 11/12/17 07:00 Dose: 6 units Prednisone (Deltasone -) 40 mg PO DAILY [facility] Last Admin: 11/12/17 11:25 Dose: 40 mg Ranitidine HCl (Zantac -) 150 mg PO DAILY [facility] Last Admin: 11/12/17 11:28 Dose: 150 mg Roflumilast (Daliresp -) 500 mcg NGT DAILY [facility] Last Admin: 11/12/17 14:00 Dose: 500 mcg Saliva Substitute (Mouthkote Solution -) 1 applic MM DAILY [facility] Last Admin: 11/12/17 11:00 Dose: 1 applic Vital Signs Period Temp Pulse Resp BP Sys/Sutton Pulse Ox Last 24 Hr 97.9 F-98.3 F 90-107 18-28 104-146/52-70 99-100 Intake & Output 11/09/17 11/10/17 11/11/17 11/12/17 23:59 23:59 23:59 23:59 Intake Total 500 Output Total 1350 600 180 200 Balance -850 -600 -180 -200 Weight 65.9 kg 65.8 kg 65.317 kg GEN: Wasted cachectic middle aged man, but friendly HEENT: PERRL, an-icteric, bitemporal wasting PULM: Notice, prominent clavicles, diffuse ronchi, poor air entry CV: nml S1 S2 RRR ABD: Scaphois, +BS, S/S N/T N/D X4Q NEURO: Tracks, attends, CALLE, Follows all CBC, BMP 11/12/17 06:15 11/11/17 06:10 RECENT STUDIES TO NOTE: CXR 11/11: Since the prior study of 11/10/2017, the diffuse airspace changes with tracheostomy tube persist. Impression: No significant change. ASSESS: Acute Hypoxic Respiratory Failure Pneumonia Sepsis Interstitial Lung Disease Acute Diastolic Heart Failure improved Acute Kidney Injury improving Lactic Acidosis resolved DM RLE DVT PLAN: -Vent Support prn -Can use NIPPV modes for comfort -Wean FiO2 as tolerated -Nebs -Steroids -Cont Daliresp -Gentle diuresis -Strict I's & O's -Monitor UOP -Trend BUN/Cr -Replete e-lytes prn -Cont Eliquis -TFs --> Vital 1.2 -FSs -SSI -Zantac -Vent floor monitoring DGL, [facility] ICU PULM/CCM 4436 Critical Care Total Critical Care Time (in minutes): 39 Critical Care Statement: The care of this patient involved high complexity decision making to prevent further life threatening deterioration of the patient 's condition and/or to evaluate & treat vital organ system(s) failure or risk of failure.
[2017-11-12] MEDS: PROPOFOL 1,000,000 MCG/100 ML VIAL IVPB SCH (18:15)
[2017-11-12] MEDS: MINERAL OIL/PETROLATUM,WHITE 3.5 GM TUBE OU SCH (22:45)
[2017-11-12] MEDS: CHLORHEXIDINE GLUCONATE 4% CLEANSER FOR DECOLONIZATION TP SCH (22:45)
[2017-11-13 06:09] LABS: HEMATOCRIT 30.9 % (35.4-49); HEMOGLOBIN 9.6 GM/dL (11.7-16.9); MCH 32.4 pg (25.7-33.7); MCHC 31.1 g/dl (32.0-35.9); MEAN CELL VOLUME 104.1 fl (80-96); MEAN PLT VOLUME 10.6 fl (7.5-11.1); PLATELET COUNT 311 K/MM3 (134-434); RBC 2.97 M/mm3 (4.00-5.60); RDW 16.8 % (11.9-15.9); WHITE BLOOD COUNT 14.6 K/mm3 (4.0-10.0)
[2017-11-13] MEDS: INSULIN SLIDING SCALE (NOVOLOG) 1 VIAL SQ SCH ×3 (06:54→21:43)
[2017-11-13 06:57] LABS: ANION GAP 2 (8-16); BLOOD UREA NITROGEN 50 mg/dL (7-18); CALCIUM 9.8 mg/dL (8.5-10.1); CHLORIDE 106 mmol/L (98-107); CO2 45 mmol/L (21-32); CREATININE 0.8 mg/dL (0.7-1.3); GLUCOSE,RANDOM 288 mg/dL (74-106); POTASSIUM 4.4 mmol/L (3.5-5.1); SODIUM 153 mmol/L (136-145)
[2017-11-13] MEDS: ALBUTEROL SO4 2.5/IPRATROPIUM 0.5 INH SOL 3 ML VIAL.NEB. NEB SCH ×4 (07:42→20:50)
--- NOTE | 2017-11-13 08:48 | PN ---
Physical Exam: SUBJECTIVE: Patient seen and examined Patient is a 62 year old male who was BIBEMS for hypoxic respiratory failure eating food, off of pressers, but with RLE DVT without PE s/p IVC filter, thrombectomy, catheter directed heparin infusion, requiring tracheostomy. Patient was noted to be agitated overnight attempting to get out of bed multiple times despite education that he needed to stay in bed and the patient had to be placed in restraints. Otherwise he denies any complaints this morning. OBJECTIVE: Vital Signs Period Temp Pulse Resp BP Sys/Sutton Pulse Ox Last 24 Hr 98 F-98.4 F 90-118 18-28 112-158/52-77 96-100 GENERAL: The patient is awake, and trached, in no acute distress. HEAD: Normal with no signs of trauma. EYES: sclera anicteric, conjunctiva clear. No ptosis. ENT: oropharynx clear without exudates, moist mucous membranes. NECK: Trachea midline, full range of motion, supple. LUNGS: Breath sounds equal, Bilateral rales auscultated on exam, no wheezes, no accessory muscle use. HEART: Regular rate and rhythm, S1, S2 without murmur, rub or gallop. ABDOMEN: Soft, nontender, nondistended, normoactive bowel sounds, no guarding, no rebound, no hepatosplenomegaly, no masses. EXTREMITIES: 2+ pulses, warm, well-perfused, NEUROLOGICAL:Intubated gait not observed. PSYCH: Normal mood, normal affect. SKIN: Warm, dry, normal turgor, no rashes or lesions noted Laboratory Results - last 24 hr 11/10/17 11/10/17 11/11/17 16:49 23:09 05:46 WBC RBC Hgb Hct MCV MCH MCHC RDW Plt Count MPV PTT (Actin FS) Sodium Potassium Chloride Carbon Dioxide Anion Gap BUN Creatinine POC Glucometer [phone] [phone] Random Glucose Calcium 11/11/17 11/11/17 11/11/17 12:15 17:03 22:25 WBC RBC Hgb Hct MCV MCH MCHC RDW Plt Count MPV PTT (Actin FS) Sodium Potassium Chloride Carbon Dioxide Anion Gap BUN Creatinine POC Glucometer [phone] [phone] Random Glucose Calcium 11/13/17 11/13/17 11/13/17 05:30 05:30 05:30 WBC 14.6 H D RBC 2.97 L Hgb 9.6 L Hct 30.9 L MCV 104.1 H MCH 32.4 MCHC 31.1 L RDW 16.8 H Plt Count 311 MPV 10.6 PTT (Actin FS) 30.3 Sodium 153 H Potassium 4.4 Chloride 106 Carbon Dioxide 45 H Anion Gap 2 L BUN 50 H Creatinine 0.8 POC Glucometer Random Glucose 288 H D Calcium 9.8 Active Medications Generic Name Dose Route Start Last Admin Trade Name Freq PRN Reason Stop Dose Admin Acetaminophen 650 mg 10/19/17 22:58 11/09/17 15:15 Tylenol - PO 650 mg Q6H PRN Administration FEVER OR PAIN Acetaminophen 1,000 mg 11/08/17 13:08 Ofirmev Injection - IVPB Q6H PRN FEVER Albuterol/Ipratropium 1 amp 11/10/17 20:00 11/13/17 07:42 Duoneb - NEB 1 amp RQID SONAL Administration Alprazolam 0.25 mg 11/10/17 22:00 11/12/17 22:45 Xanax - PO 0.25 mg BID SONAL Administration Apixaban 5 mg 11/10/17 22:00 11/12/17 22:45 Eliquis - PO 5 mg BID SONAL Administration Artificial Tears 1 applic 11/03/17 22:00 11/12/17 22:45 Artificial Tears Ointment - OU Not Given HS [facility] Chlorhexidine Gluconate 1 applic 10/17/17 22:00 11/12/17 22:45 Hibiclens For Decolonization - TP 1 applic HS SONAL Administration Propofol 1,000,000 mcg in 100 mls @ 1.96 mls/hr 11/11/17 14:45 11/12/17 18:15 Diprivan - IVPB Not Given TITR SONAL Protocol 5 MCG/KG/MIN Insulin Aspart 1 vial 10/17/17 16:30 11/13/17 06:54 Novolog Vial Sliding Scale - SQ Not Given ACHS [facility] Protocol Prednisone 40 mg 10/24/17 10:00 11/12/17 11:25 Deltasone - PO 40 mg DAILY SONAL Administration Ranitidine HCl 150 mg 11/11/17 10:00 11/12/17 11:28 Zantac - PO 150 mg DAILY SONAL Administration Roflumilast 500 mcg 11/10/17 17:00 11/12/17 14:00 Daliresp - NGT 500 mcg DAILY SONAL Administration Saliva Substitute 1 applic 11/02/17 15:45 11/12/17 11:00 Mouthkote Solution - MM 1 applic DAILY SONAL Administration ASSESSMENT/PLAN: Patient is a 62 year old male who was BIBEMS for hypoxic respiratory failure eating food, off of pressers, but with RLE DVT without PE s/p IVC filter, thrombectomy, catheter directed heparin infusion, requiring tracheostomy. Neuro: #Nicotine Dependence: - Nicotine patch 7 MG daily #Anxiety -Continue xanax for management of anxiety. CV: #Septic Shock vs. iatrogenic hypovolemic shock vs. cardiogenic shock: original presentation - Tachycardia of 105, Respiratory rate 26, Fever of 101, WBC of 11.7, Hypotension with SBP <90 with no response to IV fluids, and Lactic Acidosis of 3.6. Source unclear but likely PNA. Off pressers - Resolved #DVT: U/S positive for Right calf DVT, s/p thrombectomy - s/p IR direct infusion, doing well - Will transition to Eliquis #Chest Pain: - EKG unchanged Pulm: #Acute Hypoxic Respiratory Failure: Legionalla and strep negative. Zosyn and Vancomycin given in ED. Patient denies any recent hospitalization or abx use. Original chest X-ray reveals bilateral multifocal inflammatory changes (ARDS) vs. congestive heart failure. given JVD and crackles it is likely the later. treated for CAP. ECHO showing mild mitral regurg, mild/mod tricuspid regurg, mild PHTN. CT demonstrating diffuse interstitial lung disease AND XRs evidencing occasional volume overload. Patient currenty has a trach and is tolerating it well. - Continue Prednisone 40 daily - Patient currently trach on FiO2 of 75%. Will attempt to ween the patient's FiO2 as tolerated. - Continue scheduled duonebs. - Continue daliresp. - All cultures negative ID: likely ILD with GGO vs. infectious pattern. HIV, influenza, strep, legionella neg. BCx NGTD, sputum Cx NGTD. Completed Azithromycin and Ceftriaxone for suspected CAP. All cultures neg and ID tests neg including cryptococcal - ID recs appreciated Renal: - CTM - Avoid nephrotoxic medications Heme: #Macrocytic Anemia: Hemoglobin 9.2 with MCV 101. Ferritin 882 (likely reactive) -Hb stable Endo #NIDDM: -Patient is no longer having hypoglycemic episodes requiring D50 pushes -Will continue to monitor BGM and provided D50 pushes as needed. -ISS : #BPH -Patient on Tamsulosin 0.4mg daily GI: #Peptic Ulcer Disease: History of mesh according to family and had Endoscopy two months. Was given medications according to patients daughter and completed course. - on PPI FEN -Electrolytes Repleted as needed. -Continue PEG tube feeds. PPX: - Eliquis - Protonix Disposition: Stable for floor transfer. Visit type - Emergency Visit Emergency Visit: No - New Patient This patient is new to me today: No - Critical Care Critical Care patient: No
[2017-11-13] MEDS ORDERED: PT OWN MED DRAWER 7, Y5N ONE ×2 (08:54→21:29)
[2017-11-13] MEDS: ALPRAZolam 0.25 MG TABLET PO SCH (09:20)
[2017-11-13] MEDS: predniSONE 20 MG TABLET (UD) PO SCH (09:20)
[2017-11-13] MEDS: ROFLUMILAST 500 MCG TABLET NGT SCH (09:20)
[2017-11-13] MEDS: RANITIDINE HCL 150 MG TABLET (FP) PO SCH (09:20)
[2017-11-13] MEDS: APIXABAN 5 MG TABLET PO SCH ×2 (09:21→21:34)
[2017-11-13] MEDS ORDERED: fentaNYL CITRATE 250 MCG/5 ML VIAL ONE (10:35)
[2017-11-13] MEDS ORDERED: PNEUMOC 13-VAL CONJ-DIP CRM/PF 0.5 ML DISP.SYRIN IM ONE (11:20)
[2017-11-13] MEDS: LYTES/YERBA SANTA 240 ML BOTTLE MM SCH (11:42)
--- NOTE | 2017-11-13 12:03 | PN ---
Teaching Attending Note Name of Resident: Evans Marie ATTENDING PHYSICIAN STATEMENT I saw and evaluated the patient. I reviewed the resident's note and discussed the case with the resident. I agree with the resident's findings and plan as documented. SUBJECTIVE: Pt seen and examined in the ICU. Vented on volume assist control with 65% Fio2. Anxious overnight. Daughter at bedside. No fevers recorded. OBJECTIVE: Last Vital Signs Temp Pulse Resp BP Pulse Ox 99.1 F 103 H 29 H 138/74 99 11/13/17 10:00 11/13/17 10:00 11/13/17 11:35 11/13/17 10:00 11/13/17 11:35 Intake & Output 11/10/17 11/11/17 11/12/17 11/13/17 23:59 23:59 23:59 23:59 Intake Total 325 Output Total 600 180 900 300 Balance -600 -180 -575 -300 Weight 65.8 kg 65.317 kg 66.179 kg 64.501 kg Gen: vented, awake, mildly tachypneic Heart: tachycardic, regular Lung: scattered rales Abd: soft, nontender Ext: no edema CBC, BMP 11/13/17 05:30 11/13/17 05:30 Active Medications Acetaminophen (Tylenol -) 650 mg PO Q6H PRN PRN Reason: FEVER OR PAIN Last Admin: 11/09/17 15:15 Dose: 650 mg Acetaminophen (Ofirmev Injection -) 1,000 mg IVPB Q6H PRN PRN Reason: FEVER Albuterol/Ipratropium (Duoneb -) 1 amp NEB RQID [facility] Last Admin: 11/13/17 11:36 Dose: 1 amp Alprazolam (Xanax -) 0.25 mg PO BID [facility] Last Admin: 11/13/17 09:20 Dose: 0.25 mg Apixaban (Eliquis -) 5 mg PO BID [facility] Last Admin: 11/13/17 09:21 Dose: 5 mg Artificial Tears (Artificial Tears Ointment -) 1 applic OU HS [facility] Last Admin: 11/12/17 22:45 Dose: Not Given Chlorhexidine Gluconate (Hibiclens For Decolonization -) 1 applic TP HS [facility] Last Admin: 11/12/17 22:45 Dose: 1 applic Propofol (Diprivan -) 1,000,000 mcg in 100 mls @ 1.96 mls/hr IVPB TITR SONAL; 5 MCG/KG/MIN PRN Reason: Protocol Last Admin: 11/12/17 18:15 Dose: Not Given Insulin Aspart (Novolog Vial Sliding Scale -) 1 vial SQ ACHS [facility]ONAL PRN Reason: Protocol Last Admin: 11/13/17 11:42 Dose: 10 units Pneumococcal 13-Valent Conj Vacc (Prevnar 13 Syringe -) 0.5 ml IM .ONCE ONE Stop: 11/13/17 11:21 Prednisone (Deltasone -) 40 mg PO DAILY [facility] Last Admin: 11/13/17 09:20 Dose: 40 mg Ranitidine HCl (Zantac -) 150 mg PO DAILY [facility] Last Admin: 11/13/17 09:20 Dose: 150 mg Roflumilast (Daliresp -) 500 mcg NGT DAILY [facility] Last Admin: 11/13/17 09:20 Dose: 500 mcg Saliva Substitute (Mouthkote Solution -) 1 applic MM DAILY [facility] Last Admin: 11/13/17 11:42 Dose: 1 applic ASSESSMENT AND PLAN: Acute Hypoxic Respiratory Failure s/p Tracheostomy Pneumonia Sepsis Interstitial Lung Disease Acute Diastolic Heart Failure improved Acute Kidney Injury improving Lactic Acidosis resolved DM RLE DVT - s/p antibiotic course - continue prednisone - lasix as needed - monitor urine output, creatinine - anxiolytics, start seroquel qHS - enteral feeds - increase free water - continue anticoagulation - swallow eval for possible PO intake - taper FiO2 to keep SpO2 >90% - spontaneous breathing trials as tolerated - DVT/GI prophylaxis - can monitor on vent floor critical care time spent in reviewing chart, evaluating patient and formulating plan 35 min Problem List - Problems (1) Acute respiratory failure with hypoxia Code(s): J96.01 - ACUTE RESPIRATORY FAILURE WITH HYPOXIA (2) Pneumonia Code(s): J18.9 - PNEUMONIA, UNSPECIFIED ORGANISM (3) Diabetes Code(s): E11.9 - TYPE 2 DIABETES MELLITUS WITHOUT COMPLICATIONS
[2017-11-13] MEDS ORDERED: METOPROLOL TARTRATE 5 MG/5 ML VIAL IVPUSH PRN ×2 (15:42→19:10)
--- NOTE | 2017-11-13 16:25 | PN ---
Teaching Attending Note Name of Resident: Chanell Canas ATTENDING PHYSICIAN STATEMENT I saw and evaluated the patient. I reviewed the resident's note and discussed the case with the resident. I agree with the resident's findings and plan as documented. pt transferred to floors this AM. SUBJECTIVE:lethargic and tachypnic OBJECTIVE: Last Vital Signs Temp Pulse Resp BP Pulse Ox 98.7 F 144 H 25 H 165/86 99 11/13/17 15:10 11/13/17 15:10 11/13/17 15:30 11/13/17 15:10 11/13/17 11:35 General lethargic, +tachypnic. arrousable to verbal stimuli, thin, cachectic CV S1 S2 tachycardic no murmru/rub/gallop Lungs coarse breath sounds diffusely Abdomen soft NT/ND +peg extremities no pedal edema ASSESSMENT AND PLAN: 62 yo M active smoker, pMHx of NIDDM, PUD, BPH admitted with acute hypoxic respiratory failure, and extensive RLE DVT 1. Acute hypoxic respiratory failure, suspect from ?ILD with pneumonitis- s/p intubation 11/03 with failed weaning and now s/p trach 11/07. trach exchanged for cuff leak. now more tachypnic. no cuff leak. concern pt aspirated. although not see on CXR has leukocytosis. vent setting increased Fio2 to 100%. spoke with ICU attending and will transfer pt back to ICU. 2. RLE DVT- s/p IVC filter 10/20, thrombectmy 10/24. on eliquis 5mg BID. monitor for bleeding 3. Sepsis due to suspected aspiration PNA-Luekocytosis, tachycardic and tachypnic. sinus tach on EKG. no new ST changes. CXR does not show infiltrate but may be delayed as well in setting of advanced lung disease may not appreciate. too unstable for CT chest. will elmore-cx/ ID to evaluate and start empiric abx. 4. Acute diastolic heart failure- s/p intermittent lasix IV. clinically euvolemic. will hold for now 5. Sepsis, likely from PNA- completed abx course 6. MIRLANDE from sepsis- resolved 7. Thrombocytopenia- resolved. 8. continuous nicotine dependence- nicotine patch 9. cachexia- malnutrition evident by body habitus. s/p PEG 11/09. will hold TF at this time. [employer] evaluation. 10. Agitation- intermittent periods of agitation. now on 2 point restraints as he attempts to pull at vent. will hold standing xanax due to lethargy. 11. PPX- ppi/eliquis 12. will transfer back to MICU for close monitoring The care of this patient involved high complexity decision making to prevent further life threatening deterioration of the patient's condition and/or to evaluate & treat vital organ system(s) failure or risk of failure. 43 min.
[2017-11-13] MEDS ORDERED: PNEUMOCOCCAL 23 VACCINE 0.5 ML VIAL IM ONE (16:30)
[2017-11-13] MEDS ORDERED: DEXTROSE 5%-WATER - 1,000 ML IV SCH (17:15)
--- NOTE | 2017-11-13 17:37 | PN ---
Physical Exam: SUBJECTIVE: Patient seen and examined in ICU this AM. Alert and awake. -Overnight - patient was agitated and placed on restraints -AM - transferred to floors, but became lethargic, but arousable. Was hypertensive 150's/80's, sinus tachycardia (120's) -> given Metoprolol 5mg IVPUSH; Desatted to 88% on 50% FiO2. He was placed on 100% FiO2 and transferred back to the ICU. OBJECTIVE: Vital Signs Period Temp Pulse Resp BP Sys/Sutton Pulse Ox Last 24 Hr 98.0 F-99.1 F 100-144 18-33 118-165/62-103 95-100 GENERAL: cachetic, awake, alert EYES: sclera anicteric, conjunctiva clear NECK: trach collar LUNGS: mechanical breath sounds HEART: tachycardic, normal S1/S2 no m/r/g ABDOMEN: scaphoid, soft, ntnd, +PEG EXTREMITIES: 2+ DP pulses, wwp, no edema CBC, BMP 11/13/17 05:30 11/13/17 05:30 Hepatic Panel Total Bilirubin 0.5 mg/dL (0.2-1.0) 11/11/17 06:10 AST 6 U/L (15-37) L 11/11/17 06:10 ALT 13 U/L (12-78) 11/11/17 06:10 Alkaline Phosphatase 89 U/L (45-117) 11/11/17 06:10 Albumin 2.4 g/dl (3.4-5.0) L 11/11/17 06:10 IMAGING: CXR 11/13/2017: No focal consolidations; unchanged from 11/11/2017 Active Medications Acetaminophen (Tylenol -) 650 mg PO Q6H PRN PRN Reason: FEVER OR PAIN Last Admin: 11/09/17 15:15 Dose: 650 mg Acetaminophen (Ofirmev Injection -) 1,000 mg IVPB Q6H PRN PRN Reason: FEVER Albuterol/Ipratropium (Duoneb -) 1 amp NEB RQID [facility] Last Admin: 11/13/17 16:11 Dose: Not Given Alprazolam (Xanax -) 0.25 mg PO BID [facility] Last Admin: 11/13/17 09:20 Dose: 0.25 mg Apixaban (Eliquis -) 5 mg PO BID [facility] Last Admin: 11/13/17 09:21 Dose: 5 mg Artificial Tears (Artificial Tears Ointment -) 1 applic OU HS [facility] Last Admin: 11/12/17 22:45 Dose: Not Given Chlorhexidine Gluconate (Hibiclens For Decolonization -) 1 applic TP HS [facility] Last Admin: 11/12/17 22:45 Dose: 1 applic Chlorhexidine Gluconate (Hibiclens For Decolonization -) 1 applic TP HS [facility] Propofol (Diprivan -) 1,000,000 mcg in 100 mls @ 1.96 mls/hr IVPB TITR [facility]; 5 MCG/KG/MIN PRN Reason: Protocol Last Admin: 11/12/17 18:15 Dose: Not Given Piperacillin Sod/Tazobactam (Sod 3.375 gm/ Dextrose) 100 mls @ 200 mls/hr IVPB Q8H-IV [facility] PRN Reason: Protocol Insulin Aspart (Novolog Vial Sliding Scale -) 1 vial SQ ACHS [facility] PRN Reason: Protocol Last Admin: 11/13/17 11:42 Dose: 10 units Metoprolol Tartrate (Lopressor Injection -) 5 mg IVPUSH Q4H PRN PRN Reason: HYPERTENSION Mupirocin (Bactroban Ointment (For Decolonization) -) 1 applic NS BID [facility] Stop: 11/18/17 21:59 Prednisone (Deltasone -) 40 mg PO DAILY [facility] Last Admin: 11/13/17 09:20 Dose: 40 mg Ranitidine HCl (Zantac -) 150 mg PO DAILY [facility] Last Admin: 11/13/17 09:20 Dose: 150 mg Roflumilast (Daliresp -) 500 mcg NGT DAILY [facility] Last Admin: 11/13/17 09:20 Dose: 500 mcg Saliva Substitute (Mouthkote Solution -) 1 applic MM DAILY [facility] Last Admin: 11/13/17 11:42 Dose: 1 applic ASSESSMENT/PLAN: 62yo man with PMH of NIDDM, PUD, BPH who was admitted for acute hypoxic respiratory failure now s/p tracheostomy and RLE DVT. #acute hypoxic respiratory failure (possibly 2/2 ILD vs Pneumonitis) s/p trach after failed vent wean; trach exchanged 11/11. Vent settings increased to 100 % FiO2 -Taper FiO2 as tolerated to maintain SpO2 >90% -c/w Prednisone 40mg daily -c/w Roflumilast and Duonebs QID #leukocytosis, WBC 14.6 (from 9.3) possibly 2/2 to aspiration, CXR unchanged -d.w ID. Started on Zosyn Q8H, Day1 -f/u elmore-cultures collected today #hypernatremia, Na 153, free water deficit 3.6L -PEG tube free water flushes increased 40cc Q4H #agitation - repeated attempts to remove trach; -Restraints prn -hold Xanax due to lethary #RLE DVT s/p IVC filter 10/20 and thrombectmy 10/24 -c/w Eliquis 5mg BID PEG #acute on diastolic CHF - appears euvolemic -hold Lasix for now #DM (A1c 7.4) -BGM /ISS ACHS #BPH - Flomax 0.4 mg held as it cannot be given via PEG #Nicotine dependence - c/w nicotine patch #PPX -DVT - on Eliquis 5mg BID -GI - Zantac 150mg daily #FEN: D5@42cc / hyperNa noted / Enteral feeds held #DISPO: transfer back to ICU FULL code d/w Dr. Leroy Canas MD PGY1 - Internal Medicine Visit type - Emergency Visit Emergency Visit: No - New Patient This patient is new to me today: Yes Date on this admission: 11/13/17 - Critical Care Critical Care patient: Yes Total Critical Care Time (in minutes): 40 Critical Care Statement: The care of this patient involved high complexity decision making to prevent further life threatening deterioration of the patient 's condition and/or to evaluate & treat vital organ system(s) failure or risk of failure.
[2017-11-13] MEDS ORDERED: ROCURONIUM BROMIDE 50 MG/5 ML VIAL IVPUSH ONE (19:10)
[2017-11-13] MEDS ORDERED: ACETAMINOPHEN 1000 MG/100 ML VIAL (NON FORMULARY) IVPB PRN (19:10)
[2017-11-13] MEDS ORDERED: ACETAMINOPHEN 325 MG TABLET (FP) PO PRN (19:10)
[2017-11-13 19:37] LABS: ARTERIAL BLOOD GAS pH 7.33 (7.35-7.45)
[2017-11-13 19:39] LABS: ALLENS TEST POSITIVE
[2017-11-13 19:43] LABS: ARTERIAL BLOOD GAS PCO2 79.5 mmHg (35-45)
[2017-11-13 19:44] LABS: ARTERIAL BLD GAS O2 SATURATION 99.8 % (90-98.9)
[2017-11-13] MEDS: PROPOFOL 1,000,000 MCG/100 ML VIAL IVPB SCH (20:00)
--- NOTE | 2017-11-13 20:52 | PN ---
Progress Note, Physician History of Present Illness: Noted to be more lethargic Low O2 sats Awake but lethargic Slightly tachypneic at rest - Current Medication List Current Medications: Active Medications Acetaminophen (Tylenol -) 650 mg PO Q6H PRN PRN Reason: FEVER Acetaminophen (Ofirmev Injection -) 1,000 mg IVPB Q6H PRN PRN Reason: FEVER Albuterol/Ipratropium (Duoneb -) 1 amp NEB RQID [facility] Apixaban (Eliquis -) 5 mg PO BID [facility] Artificial Tears (Artificial Tears Ointment -) 1 applic OU HS [facility] Chlorhexidine Gluconate (Hibiclens For Decolonization -) 1 applic TP HS [facility] Piperacillin Sod/Tazobactam (Sod 3.375 gm/ Dextrose) 100 mls @ 200 mls/hr IVPB Q8H-IV [facility] PRN Reason: Protocol Dextrose (D5w -) 1,000 mls @ 42 mls/hr IV ASDIR [facility] Propofol (Diprivan -) 1,000,000 mcg in 100 mls @ 1.96 mls/hr IVPB TITR [facility]; 5 MCG/KG/MIN PRN Reason: Protocol Insulin Aspart (Novolog Vial Sliding Scale -) 1 vial SQ ACHS [facility] PRN Reason: Protocol Metoprolol Tartrate (Lopressor Injection -) 5 mg IVPUSH Q4H PRN PRN Reason: HYPERTENSION Mupirocin (Bactroban Ointment (For Decolonization) -) 1 applic NS BID [facility] Stop: 11/18/17 21:59 Prednisone (Deltasone -) 40 mg PO DAILY [facility] Ranitidine HCl (Zantac -) 150 mg PO DAILY [facility] Roflumilast (Daliresp -) 500 mcg NGT DAILY [facility] Saliva Substitute (Mouthkote Solution -) 1 applic MM DAILY [facility] - Objective Vital Signs: Vital Signs Temperature 98.7 F 11/13/17 15:10 Pulse Rate 116 H 11/13/17 18:00 Respiratory Rate 26 H 11/13/17 18:35 Blood Pressure 132/78 11/13/17 18:00 O2 Sat by Pulse Oximetry (%) 99 11/13/17 11:35 Constitutional: Yes: Cachectic Cardiovascular: Yes: Regular Rate and Rhythm, S1, S2 Respiratory: Yes: Diminished Gastrointestinal: Yes: Normal Bowel Sounds, Soft Edema: No Labs: CBC, BMP 11/13/17 05:30 11/13/17 05:30 INR, PTT INR 1.02 (0.82-1.09) 11/09/17 05:50 Assessment/Plan Interstitial lung disease ? aspiration pneumonitis Cultures ordered Empiric coverage HCAP with zosyn
[2017-11-13] MEDS: PIPERACILLIN/TAZOB 3.375 GM 3.375 GM in DEXTROSE 5%-WATER - 100 ML IVPB SCH (21:00)
[2017-11-13] MEDS: CHLORHEXIDINE GLUCONATE 4% CLEANSER FOR DECOLONIZATION TP SCH (21:34)
[2017-11-13] MEDS: MUPIROCIN 2% TOPICAL OINTMENT FOR DECOLONIZATION NS SCH (21:34)
[2017-11-13] MEDS: MINERAL OIL/PETROLATUM,WHITE 3.5 GM TUBE OU SCH (22:00)
[2017-11-13] MEDS ORDERED: MIDAZOLAM HCL 2 MG/2 ML SINGLE DOSE VIAL IVPUSH ONE (22:08)
[2017-11-13] MEDS ORDERED: MIDAZOLAM HCL 2 MG/2 ML SINGLE DOSE VIAL ONE (22:12)
[2017-11-14] MEDS ORDERED: HEMOQUE CONTROL SOLUTION ONE (02:58)
[2017-11-14] MEDS: PIPERACILLIN/TAZOB 3.375 GM 3.375 GM in DEXTROSE 5%-WATER - 100 ML IVPB SCH ×3 (04:30→17:11)
[2017-11-14 06:22] LABS: HEMATOCRIT 30.9 % (35.4-49); HEMOGLOBIN 9.5 GM/dL (11.7-16.9); MCH 31.9 pg (25.7-33.7); MCHC 30.8 g/dl (32.0-35.9); MEAN CELL VOLUME 103.6 fl (80-96); MEAN PLT VOLUME 10.9 fl (7.5-11.1); PLATELET COUNT 259 K/MM3 (134-434); RBC 2.98 M/mm3 (4.00-5.60); RDW 16.9 % (11.9-15.9)
[2017-11-14] MEDS: INSULIN SLIDING SCALE (NOVOLOG) 1 VIAL SQ SCH ×4 (06:28→22:06)
[2017-11-14] MEDS ORDERED: INSULIN (NOVOLOG) ASPART 100 UNITS/ML 10ML VIAL ONE (06:34)
--- NOTE | 2017-11-14 06:39 | PN ---
Physical Exam: SUBJECTIVE: Patient seen and examined by me this AM - Vented, sedated, lying in bed. Trach exchange today with Dr. Rosario. Pt with suspected trach air leak. - Episode of desaturation to 80s on 50% FiO2 yesterday after transfer to floors. Pt was hypertensive to 150's/80's, sinus tachycardia [id number], given Metoprolol 5mg IV; He was placed on 100% FiO2 and transferred back to the ICU. -Pt has been increasingly agitated, pulling at trach, requiring restraints two night ago. OBJECTIVE: Vital Signs Intake & Output 11/11/17 11/12/17 11/13/17 11/14/17 23:59 23:59 23:59 23:59 Intake Total 325 762.8 Output Total 180 900 300 300 Balance -180 -575 -300 462.8 Weight 65.317 kg 66.179 kg 64.501 kg 40.9 kg Period Temp Pulse Resp BP Sys/Sutotn Pulse Ox Last 24 Hr 98.0 F-99.1 F 100-144 18-33 88-165/61-103 95-100 GENERAL: Cachectic man laying in bed, sedated, eyes fixed open in NAD. Vented, trach HEAD: Normal with no signs of trauma. Bitemporal wasting EYES: Eye open, fixed. sclera anicteric, conjunctiva clear. No ptosis. ENT: Ears normal, nares patent, oropharynx clear without exudates, trace secretions noted in oropharynx. NECK: Trach collar in place, no significant erythema, bleeding or purulence. Trachea midline, supple. No JVD noted. LUNGS: Mechanical breath sounds. Diffuse crackles BL. No wheezes, no accessory muscle use HEART: 2/6 systolic ejection murmur at LUSB. Regular rate and rhythm, S1, S2 without murmur, rub or gallop. ABDOMEN: PEG tube in place, no erythema, drainage or purulence. Scaphoid abdomen , hypoactive bowel sounds, no guarding, no rebound, no hepatosplenomegaly, no masses. EXTREMITIES: No edema in LEs. 2+ pulses, warm, well-perfused NEUROLOGICAL: Sedated, somnolent. Responds and reacts to voice. PSYCH: Normal mood, normal affect. Appears depressed. SKIN: Warm, dry, normal turgor, no rashes or lesions noted Laboratory Results - last 24 hr CBC, BMP 11/14/17 05:15 11/14/17 05:15 11/09/17 11/13/17 11/13/17 04:13 05:30 05:30 WBC 14.6 H D RBC 2.97 L Hgb 9.6 L Hct 30.9 L MCV 104.1 H MCH 32.4 MCHC 31.1 L RDW 16.8 H Plt Count 311 MPV 10.6 Anticoagulation Therapy Puncture Site ABG pH ABG pCO2 at Pt Temp ABG pO2 at Pt Temp ABG HCO3 ABG O2 Sat (Measured) ABG O2 Content ABG Base Excess Dionte Test O2 Delivery Device Oxygen Flow Rate Vent Mode Vent Rate Mechanical Rate Pressure Support Vent Sodium 153 H Potassium 4.4 Chloride 106 Carbon Dioxide 45 H Anion Gap 2 L BUN 50 H Creatinine 0.8 POC Glucometer [phone] Random Glucose 288 H D Calcium 9.8 Creatine Kinase Troponin I 11/13/17 11/13/17 11/13/17 15:35 17:10 18:16 WBC RBC Hgb Hct MCV MCH MCHC RDW Plt Count MPV Anticoagulation Therapy Puncture Site ABG pH ABG pCO2 at Pt Temp ABG pO2 at Pt Temp ABG HCO3 ABG O2 Sat (Measured) ABG O2 Content ABG Base Excess Dionte Test O2 Delivery Device Oxygen Flow Rate Vent Mode Vent Rate Mechanical Rate Pressure Support Vent Sodium Potassium Chloride Carbon Dioxide Anion Gap BUN Creatinine POC Glucometer 282 189 Random Glucose Calcium Creatine Kinase 38 L Troponin I 0.04 D 11/13/17 11/13/17 11/14/17 18:50 21:42 05:17 WBC RBC Hgb Hct MCV MCH MCHC RDW Plt Count MPV Anticoagulation Therapy No Result Required. Puncture Site Right radial ABG pH 7.33 L ABG pCO2 at Pt Temp 79.5 H* ABG pO2 at Pt Temp 191.0 H* ABG HCO3 41.0 H* ABG O2 Sat (Measured) 99.8 H* ABG O2 Content 14.1 L ABG Base Excess 13.0 H Dionte Test Positive O2 Delivery Device Fio2 Oxygen Flow Rate 100% Vent Mode No Result Required. Vent Rate No Result Required. Mechanical Rate No Result Required. Pressure Support Vent No Result Required. Sodium Potassium Chloride Carbon Dioxide Anion Gap BUN Creatinine POC Glucometer [phone] Random Glucose Calcium Creatine Kinase Troponin I Active Medications Generic Name Dose Route Start Last Admin Trade Name Freq PRN Reason Stop Dose Admin Acetaminophen 650 mg 11/13/17 19:10 Tylenol - PO Q6H PRN FEVER Acetaminophen 1,000 mg 11/13/17 19:10 Ofirmev Injection - IVPB Q6H PRN FEVER Albuterol/Ipratropium 1 amp 11/13/17 20:00 11/13/17 20:50 Duoneb - NEB 1 amp RQID [facility] Administration Apixaban 5 mg 11/13/17 22:00 11/13/17 21:34 Eliquis - PO 5 mg BID [facility] Administration Artificial Tears 1 applic 11/13/17 22:00 11/13/17 22:00 Artificial Tears Ointment - OU 1 applic HS [facility] Administration Chlorhexidine Gluconate 1 applic 11/13/17 22:00 11/13/17 21:34 Hibiclens For Decolonization - TP 1 applic HS [facility] Administration Piperacillin Sod/Tazobactam 100 mls @ 200 mls/hr 11/13/17 18:00 11/14/17 04: 30 Sod 3.375 gm/ Dextrose IVPB 200 mls/hr Q8H-IV [facility] Administration Protocol Dextrose 1,000 mls @ 42 mls/hr 11/13/17 17:15 11/13/17 19:00 D5w - IV 42 mls/hr ASDIR [facility] Administration Propofol 1,000,000 mcg in 100 mls @ 1.96 mls/hr 11/13/17 19:30 11/13/17 20:00 Diprivan - IVPB 20 mcg/kg/min TITR [facility] 7.838 mls/hr Protocol Administration 5 MCG/KG/MIN Insulin Aspart 1 vial 11/13/17 22:00 11/14/17 06:28 Novolog Vial Sliding Scale - SQ Not Given ACHS [facility] Protocol Metoprolol Tartrate 5 mg 11/13/17 19:10 Lopressor Injection - IVPUSH Q4H PRN HYPERTENSION Mupirocin 1 applic 11/13/17 22:00 11/13/17 21:34 Bactroban Ointment (For Decolonization) - NS 11/18/17 21:59 1 applic BID [facility] Administration Prednisone 40 mg 11/14/17 10:00 Deltasone - PO DAILY [facility] Ranitidine HCl 150 mg 11/14/17 10:00 Zantac - PO DAILY [facility] Roflumilast 500 mcg 11/14/17 10:00 Daliresp - NGT DAILY [facility] Saliva Substitute 1 applic 11/14/17 10:00 Mouthkote Solution - MM DAILY [facility] Microbiology 10/21/17 06:00 Serum Cryptococcal Antigen - Final 10/19/17 19:30 Sputum - Expectorated Gram Stain - Final 10/19/17 19:30 Sputum - Expectorated Sputum Culture - Final NORMAL RESPIRATORY TOYIN 10/17/17 10:10 Blood - Peripheral Venous Blood Culture - Final NO GROWTH AFTER 5 DAYS INCUBATION 10/17/17 10:10 Blood - Peripheral Venous Blood Culture - Final NO GROWTH AFTER 5 DAYS INCUBATION 10/17/17 13:57 Urine - Urine Clean Catch Urine Culture - Final NO GROWTH OBTAINED 10/17/17 13:57 Urine For Antigen Detection Legionella Antigen - Final 10/17/17 13:57 Urine For Antigen Detection Streptococcus pneumoniae Antigen (M - Final 10/17/17 10:25 Nasopharyngeal Swab Influenza Types A,B Antigen ([facility]) - Final 10/17/17 10:25 Nasopharyngeal Swab - Final Recent imaging: CXR 10/21/17 - Since 10/30/2017, the ARDS pattern has diminished minimally. Follow- up recommended. CT Abdomen 10/31 - The gallbladder demonstrates no definite CT pathology. There is nonspecific minimal to mild intrahepatic biliary tract dilatation. Clinical/ laboratory correlation is suggested as well as with follow-up CT. Dilatation of the main pancreatic duct as noted above. Pancreatic ductal dilatation was also noted on a 2013 ultrasound exam. Several small pancreatic head calcifications are seen suggestive of chronic calcific pancreatitis. No gross mass lesion is identified. Correlate with MRI/MRCP when the patient's clinical condition permits. No CT evidence of acute pancreatitis. Mild acute pancreatitis is frequently not demonstrable on CT or MRI. The partially imaged lower chest demonstrates prominent bilateral interstitial thickening with relative peripheral sparing - ? Noncardiogenic edema, infectious versus noninfectious pneumonitis, hemorrhage. Correlate clinically. This finding may be somewhat increased in comparison to a chest CT exam of 10/20/2017. No pleural effusion is seen. Bibasilar bronchiectasis. There is partial imaging of nonspecific mediastinal lymphadenopathy (as described on chest CT). Prominent atherosclerotic vascular calcifications. Mild to moderate L1 and mild L5 vertebral body compression fractures are noted which appear chronic. No bony retropulsion is seen. The visualized osseous structures appear to be diffusely demineralized. Clinical/laboratory correlation is suggested. Additional evaluation utilizing bone densitometry/DEXA scan may be considered. CXR 11/01 - Since a prior study of 10/31/2017, extensive opacification is identified throughout the lung james with little significant change. This is consistent with ARDS. No pleural effusions have developed. CXR 11/02 - No significant change from prior cxr. Still with BL reticulonodular diffuse opacification. CXR 11/05 - No significant change. BL reticulonodular pattern. CXR 11/06 - No change overall CXR 11/07 - Trach in place. Diffuse BL interstitial and possible alveolar changes. No pneumo or pleural effusions. ekg 11/08 - NSR, Rate 86, QTC 409, LVH, NANCY, no ST/Twave changes CXR 11/08 - No significant interval changes, BL parenchymal reticulonodular infiltrates, ETT tube, NG tube in place CXR 11/09 - no change from prior CXR 11/10 - No change CXR 11/13 - Good placement of ETT tube CXR 11/14 - no significant change 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 sepsis vs. possible obstruction - Urine lytes - Renal consult - IVFs - Trend Cr - UA #agitation - repeated attempts to remove trach; -Restraints prn -cont holding xanax - propofol for sedation #RLE DVT s/p IVC filter 10/20 and thrombectomy 10/24 -c/w Eliquis 5mg BID #Acute on diastolic CHF - Not clinically volume overloaded -c/w hold lasix #DM (A1c 7.4 on admission); On D5W -BGM -ISS ACHS - Start on 4u basal levemir qHs #BPH - - flomax held #Nicotine dependence - c/w nicotine patch #PPX Eliquis 5mg BID Zantac 150mg daily #FEN: D5W 42cc/hr Daily BMP, trend Na Restart feeds today; [employer] Dispo to ICU Discussed with attending, Dr. James Reeves, PGY1 Visit type - Emergency Visit Emergency Visit: Yes ED Registration Date: 10/17/17 Care time: The patient presented to the Emergency Department on the above date and was hospitalized for further evaluation of their emergent condition. - New Patient This patient is new to me today: No - Critical Care Critical Care patient: Yes Total Critical Care Time (in minutes): 35 Critical Care Statement: The care of this patient involved high complexity decision making to prevent further life threatening deterioration of the patient 's condition and/or to evaluate & treat vital organ system(s) failure or risk of failure.
[2017-11-14 06:45] LABS: ANION GAP 4 (8-16); BLOOD UREA NITROGEN 74 mg/dL (7-18); CALCIUM 8.6 mg/dL (8.5-10.1); CHLORIDE 109 mmol/L (98-107); CO2 42 mmol/L (21-32); GLUCOSE,RANDOM 164 mg/dL (74-106); POTASSIUM 4.3 mmol/L (3.5-5.1); SODIUM 155 mmol/L (136-145)
[2017-11-14] MEDS: ALBUTEROL SO4 2.5/IPRATROPIUM 0.5 INH SOL 3 ML VIAL.NEB. NEB SCH ×4 (07:50→21:50)
[2017-11-14] MEDS ORDERED: PROPOFOL 1,000,000 MCG/100 ML VIAL ONE (08:36)
--- NOTE | 2017-11-14 08:46 | PN ---
Physical Exam: SUBJECTIVE: Patient seen and examined Patient is a 62 year old male who was BIBEMS for hypoxic respiratory failure eating food, off of pressers, but with RLE DVT without PE s/p IVC filter, thrombectomy, catheter directed heparin infusion, requiring tracheostomy. The patient was transferred to the floor yesterday, but was sent back to the ICU after several hours due to tachycardia and concern for lethargy as well as increasing FiO2 to 100%. The patient responded to metoprolol and is no longer tachycardic. He had a trach replacement today for concerns of leakage around the previous trach. OBJECTIVE: Vital Signs Period Temp Pulse Resp BP Sys/Sutton Pulse Ox Last 24 Hr 98.0 F-99.1 F 102-144 18-33 88-165/61-103 95-100 GENERAL: The patient is sedated, and trached, in no acute distress. HEAD: Normal with no signs of trauma. EYES: sclera anicteric, conjunctiva clear. No ptosis. ENT: oropharynx clear without exudates, moist mucous membranes. NECK: Trachea midline, full range of motion, supple. LUNGS: Breath sounds equal, Bilateral rales auscultated on exam, no wheezes, no accessory muscle use. HEART: Regular rate and rhythm, S1, S2 without murmur, rub or gallop. ABDOMEN: Soft, nontender, nondistended, normoactive bowel sounds, no guarding, no rebound, no hepatosplenomegaly, no masses. EXTREMITIES: 2+ pulses, warm, well-perfused, NEUROLOGICAL:Trached. gait not observed. PSYCH: Normal mood, normal affect. SKIN: Warm, dry, normal turgor, no rashes or lesions noted Laboratory Results - last 24 hr 11/09/17 11/13/17 11/13/17 04:13 15:35 17:10 WBC RBC Hgb Hct MCV MCH MCHC RDW Plt Count MPV PTT (Actin FS) Anticoagulation Therapy Puncture Site ABG pH ABG pCO2 at Pt Temp ABG pO2 at Pt Temp ABG HCO3 ABG O2 Sat (Measured) ABG O2 Content ABG Base Excess Dionte Test O2 Delivery Device Oxygen Flow Rate Vent Mode Vent Rate Mechanical Rate Pressure Support Vent Sodium Potassium Chloride Carbon Dioxide Anion Gap BUN Creatinine POC Glucometer [phone] Random Glucose Calcium Creatine Kinase 38 L Troponin I 0.04 D 0111/13/17 11/13/17 18:16 18:50 21:42 WBC RBC Hgb Hct MCV MCH MCHC RDW Plt Count MPV PTT (Actin FS) Anticoagulation Therapy No Result Required. Puncture Site Right radial ABG pH 7.33 L ABG pCO2 at Pt Temp 79.5 H* ABG pO2 at Pt Temp 191.0 H* ABG HCO3 41.0 H* ABG O2 Sat (Measured) 99.8 H* ABG O2 Content 14.1 L ABG Base Excess 13.0 H Dionte Test Positive O2 Delivery Device Fio2 Oxygen Flow Rate 100% Vent Mode No Result Required. Vent Rate No Result Required. Mechanical Rate No Result Required. Pressure Support Vent No Result Required. Sodium Potassium Chloride Carbon Dioxide Anion Gap BUN Creatinine POC Glucometer [phone] Random Glucose Calcium Creatine Kinase Troponin I 11/14/17 11/14/17 11/14/17 05:15 05:15 05:15 WBC 18.0 H RBC 2.98 L Hgb 9.5 L Hct 30.9 L MCV 103.6 H MCH 31.9 MCHC 30.8 L RDW 16.9 H Plt Count 259 MPV 10.9 PTT (Actin FS) 33.6 Anticoagulation Therapy Puncture Site ABG pH ABG pCO2 at Pt Temp ABG pO2 at Pt Temp ABG HCO3 ABG O2 Sat (Measured) ABG O2 Content ABG Base Excess Dionte Test O2 Delivery Device Oxygen Flow Rate Vent Mode Vent Rate Mechanical Rate Pressure Support Vent Sodium 155 H Potassium 4.3 Chloride 109 H Carbon Dioxide 42 H Anion Gap 4 L BUN 74 H D Creatinine 2.0 H D POC Glucometer Random Glucose 164 H D Calcium 8.6 Creatine Kinase Troponin I 11/14/17 05:17 WBC RBC Hgb Hct MCV MCH MCHC RDW Plt Count MPV PTT (Actin FS) Anticoagulation Therapy Puncture Site ABG pH ABG pCO2 at Pt Temp ABG pO2 at Pt Temp ABG HCO3 ABG O2 Sat (Measured) ABG O2 Content ABG Base Excess Dionte Test O2 Delivery Device Oxygen Flow Rate Vent Mode Vent Rate Mechanical Rate Pressure Support Vent Sodium Potassium Chloride Carbon Dioxide Anion Gap BUN Creatinine POC Glucometer 186.86187 Random Glucose Calcium Creatine Kinase Troponin I Active Medications Generic Name Dose Route Start Last Admin Trade Name Freq PRN Reason Stop Dose Admin Acetaminophen 650 mg 11/13/17 19:10 Tylenol - PO Q6H PRN FEVER Acetaminophen 1,000 mg 11/13/17 19:10 Ofirmev Injection - IVPB Q6H PRN FEVER Albuterol/Ipratropium 1 amp 11/13/17 20:00 11/13/17 20:50 Duoneb - NEB 1 amp RQID SON[facility] Administration Apixaban 5 mg 11/13/17 22:00 11/13/17 21:34 Eliquis - PO 5 mg BID [facility]ON[facility] Administration Artificial Tears 1 applic 11/13/17 22:00 11/13/17 22:00 Artificial Tears Ointment - OU 1 applic HS [facility] Administration Chlorhexidine Gluconate 1 applic 11/13/17 22:00 11/13/17 21:34 Hibiclens For Decolonization - TP 1 applic HS [facility] Administration Piperacillin Sod/Tazobactam 100 mls @ 200 mls/hr 11/13/17 18:00 11/14/17 04: 30 Sod 3.375 gm/ Dextrose IVPB 200 mls/hr Q8H-IV [facility] Administration Protocol Dextrose 1,000 mls @ 42 mls/hr 11/13/17 17:15 11/13/17 19:00 D5w - IV 42 mls/hr ASDIR [facility] Administration Propofol 1,000,000 mcg in 100 mls @ 1.96 mls/hr 11/13/17 19:30 11/13/17 20:00 Diprivan - IVPB 20 mcg/kg/min TITR [facility] 7.838 mls/hr Protocol Administration 5 MCG/KG/MIN Insulin Aspart 1 vial 11/13/17 22:00 11/14/17 06:28 Novolog Vial Sliding Scale - SQ Not Given ACHS [facility] Protocol Metoprolol Tartrate 5 mg 11/13/17 19:10 Lopressor Injection - IVPUSH Q4H PRN HYPERTENSION Mupirocin 1 applic 11/13/17 22:00 11/13/17 21:34 Bactroban Ointment (For Decolonization) - NS 11/18/17 21:59 1 applic BID [facility] Administration Prednisone 40 mg 11/14/17 10:00 Deltasone - PO DAILY [facility] Ranitidine HCl 150 mg 11/14/17 10:00 Zantac - PO DAILY [facility] Roflumilast 500 mcg 11/14/17 10:00 Daliresp - NGT DAILY [facility] Saliva Substitute 1 applic 11/14/17 10:00 Mouthkote Solution - MM DAILY [facility] ASSESSMENT/PLAN: Patient is a 62 year old male who was BIBEMS for hypoxic respiratory failure eating food, off of pressers, but with RLE DVT without PE s/p IVC filter, thrombectomy, catheter directed heparin infusion, requiring tracheostomy. Neuro: #Nicotine Dependence: - Nicotine patch 7 MG daily #Anxiety -Continue xanax for management of anxiety. #Agitation -Patient currently sedated with propofol. CV: #Septic Shock vs. iatrogenic hypovolemic shock vs. cardiogenic shock: original presentation - Tachycardia of 105, Respiratory rate 26, Fever of 101, WBC of 11.7, Hypotension with SBP <90 with no response to IV fluids, and Lactic Acidosis of 3.6. Source unclear but likely PNA. Off pressers - Resolved #DVT: U/S positive for Right calf DVT, s/p thrombectomy - s/p IR direct infusion, doing well - Will transition to [facility] #Chest Pain: - EKG unchanged Pulm: #Acute Hypoxic Respiratory Failure: Legionalla and strep negative. Zosyn and Vancomycin given in ED. Patient denies any recent hospitalization or abx use. Original chest X-ray reveals bilateral multifocal inflammatory changes (ARDS) vs. congestive heart failure. given JVD and crackles it is likely the later. treated for CAP. ECHO showing mild mitral regurg, mild/mod tricuspid regurg, mild PHTN. CT demonstrating diffuse interstitial lung disease AND XRs evidencing occasional volume overload. Patient currenty has a trach. - Continue Prednisone 40 daily - Will attempt to ween the patient's FiO2 as tolerated. - Patient had his trach replaced today. - Continue scheduled duonebs. - Continue daliresp. - All cultures negative ID: likely ILD with GGO vs. infectious pattern. HIV, influenza, strep, legionella neg. BCx NGTD, sputum Cx NGTD. Completed Azithromycin and Ceftriaxone for suspected CAP. All cultures neg and ID tests neg including cryptococcal - ID recs appreciated Renal: - CTM - Avoid nephrotoxic medications Heme: #Macrocytic Anemia: Hemoglobin 9.2 with MCV 101. Ferritin 882 (likely reactive) -Hb stable Endo #NIDDM: -Patient is no longer having hypoglycemic episodes requiring D50 pushes -Will continue to monitor BGM and provided D50 pushes as needed. -ISS : #BPH -Patient on Tamsulosin 0.4mg daily GI: #Peptic Ulcer Disease: History of mesh according to family and had Endoscopy two months. Was given medications according to patients daughter and completed course. - on PPI FEN -Electrolytes Repleted as needed. -Continue PEG tube feeds in the pm. PPX: - Eliquis - Protonix Disposition: Continued ICU care. Visit type - Emergency Visit Emergency Visit: No - New Patient This patient is new to me today: No - Critical Care Critical Care patient: Yes Total Critical Care Time (in minutes): 35 Critical Care Statement: The care of this patient involved high complexity decision making to prevent further life threatening deterioration of the patient 's condition and/or to evaluate & treat vital organ system(s) failure or risk of failure.
[2017-11-14] MEDS: LYTES/YERBA SANTA 240 ML BOTTLE MM SCH (09:00)
--- NOTE | 2017-11-14 09:15 | PN ---
Teaching Attending Note Name of Resident: Dylon Reeves ATTENDING PHYSICIAN STATEMENT Time of evaluation: 9:40 AM I saw and evaluated the patient. I reviewed the resident's note and discussed the case with the resident. I agree with the resident's findings and plan as documented. SUBJECTIVE: Patient seen and examined. sedated on ventilator, opens eyes but unable to assess for ROS. OBJECTIVE: Vital Signs Period Temp Pulse Resp BP Sys/Sutton Pulse Ox Last 24 Hr 98.0 F-99.1 F 94-144 18-33 88-165/61-103 97-100 Intake & Output 11/11/17 11/12/17 11/13/17 11/14/17 23:59 23:59 23:59 23:59 Intake Total 325 762.8 Output Total 180 900 300 300 Balance -180 -575 -300 462.8 Weight 144 lb 145 lb 14.4 oz 142 lb 3.2 oz 90 lb 2.705 oz General: sedated, opens eyes, in no acute distress in bed, cachectic male CVS; S1S2 regular Chest: bilateral fine rales, positive air entry Abdomen: soft, scaphoid, NT, mesh palpated through the skin extremities: no edema, positive pulses Home Medication List Medication Instructions Recorded Confirmed Type Glipizide [Glucotrol Xl] 0 mg PO ASDIR 10/17/17 10/17/17 History Metformin HCl 0 mg PO ASDIR 10/17/17 10/17/17 History Tamsulosin HCl 0.4 mg PO DAILY 10/17/17 10/17/17 History Active Medications Generic Name Dose Route Start Last Admin Trade Name Freq PRN Reason Stop Dose Admin Acetaminophen 650 mg 11/13/17 19:10 Tylenol - PO Q6H PRN FEVER Acetaminophen 1,000 mg 11/13/17 19:10 Ofirmev Injection - IVPB Q6H PRN FEVER Albuterol/Ipratropium 1 amp 11/13/17 20:00 11/13/17 20:50 Duoneb - NEB 1 amp RQID SON[facility] Administration Apixaban 5 mg 11/13/17 22:00 11/13/17 21:34 Eliquis - PO 5 mg BID SONAL Administration Artificial Tears 1 applic 11/13/17 22:00 11/13/17 22:00 Artificial Tears Ointment - OU 1 applic HS [facility]ONAL Administration Chlorhexidine Gluconate 1 applic 11/13/17 22:00 11/13/17 21:34 Hibiclens For Decolonization - TP 1 applic HS [facility]AL Administration Piperacillin Sod/Tazobactam 100 mls @ 200 mls/hr 11/13/17 18:00 11/14/17 04: 30 Sod 3.375 gm/ Dextrose IVPB 200 mls/hr Q8H-IV [facility]ONAL Administration Protocol Dextrose 1,000 mls @ 42 mls/hr 11/13/17 17:15 11/13/17 19:00 D5w - IV 42 mls/hr ASDIR [facility] Administration Propofol 1,000,000 mcg in 100 mls @ 1.96 mls/hr 11/13/17 19:30 11/13/17 20:00 Diprivan - IVPB 20 mcg/kg/min TITR S[facility] 7.838 mls/hr Protocol Administration 5 MCG/KG/MIN Insulin Aspart 1 vial 11/13/17 22:00 11/14/17 06:28 Novolog Vial Sliding Scale - SQ Not Given ACHS [facility] Protocol Metoprolol Tartrate 5 mg 11/13/17 19:10 Lopressor Injection - IVPUSH Q4H PRN HYPERTENSION Mupirocin 1 applic 11/13/17 22:00 11/13/17 21:34 Bactroban Ointment (For Decolonization) - NS 11/18/17 21:59 1 applic BID SON[facility] Administration Prednisone 40 mg 11/14/17 10:00 Deltasone - PO DAILY SONAL Ranitidine HCl 150 mg 11/14/17 10:00 Zantac - PO DAILY [facility] Roflumilast 500 mcg 11/14/17 10:00 Daliresp - NGT DAILY [facility] Saliva Substitute 1 applic 11/14/17 10:00 Mouthkote Solution - MM DAILY [facility] Laboratory Results - last 24 hr 11/13/17 11/13/17 11/13/17 15:35 17:10 18:16 WBC RBC Hgb Hct MCV MCH MCHC RDW Plt Count MPV PTT (Actin FS) Anticoagulation Therapy Puncture Site ABG pH ABG pCO2 at Pt Temp ABG pO2 at Pt Temp ABG HCO3 ABG O2 Sat (Measured) ABG O2 Content ABG Base Excess Dionte Test O2 Delivery Device Oxygen Flow Rate Vent Mode Vent Rate Mechanical Rate Pressure Support Vent Sodium Potassium Chloride Carbon Dioxide Anion Gap BUN Creatinine POC Glucometer 282 189 Random Glucose Calcium Creatine Kinase 38 L Troponin I 0.04 D 11/13/17 11/13/17 11/14/17 18:50 21:42 05:15 WBC 18.0 H RBC 2.98 L Hgb 9.5 L Hct 30.9 L MCV 103.6 H MCH 31.9 MCHC 30.8 L RDW 16.9 H Plt Count 259 MPV 10.9 PTT (Actin FS) Anticoagulation Therapy No Result Required. Puncture Site Right radial ABG pH 7.33 L ABG pCO2 at Pt Temp 79.5 H* ABG pO2 at Pt Temp 191.0 H* ABG HCO3 41.0 H* ABG O2 Sat (Measured) 99.8 H* ABG O2 Content 14.1 L ABG Base Excess 13.0 H Dionte Test Positive O2 Delivery Device Fio2 Oxygen Flow Rate 100% Vent Mode No Result Required. Vent Rate No Result Required. Mechanical Rate No Result Required. Pressure Support Vent No Result Required. Sodium Potassium Chloride Carbon Dioxide Anion Gap BUN Creatinine POC Glucometer [phone] Random Glucose Calcium Creatine Kinase Troponin I 11/14/17 11/14/17 11/14/17 05:15 05:15 05:17 WBC RBC Hgb Hct MCV MCH MCHC RDW Plt Count MPV PTT (Actin FS) 33.6 Anticoagulation Therapy Puncture Site ABG pH ABG pCO2 at Pt Temp ABG pO2 at Pt Temp ABG HCO3 ABG O2 Sat (Measured) ABG O2 Content ABG Base Excess Dionte Test O2 Delivery Device Oxygen Flow Rate Vent Mode Vent Rate Mechanical Rate Pressure Support Vent Sodium 155 H Potassium 4.3 Chloride 109 H Carbon Dioxide 42 H Anion Gap 4 L BUN 74 H D Creatinine 2.0 H D POC Glucometer 186.61013 Random Glucose 164 H D Calcium 8.6 Creatine Kinase Troponin I Microbiology 10/21/17 06:00 Serum Cryptococcal Antigen - Final 10/19/17 19:30 Sputum - Expectorated Gram Stain - Final 10/19/17 19:30 Sputum - Expectorated Sputum Culture - Final NORMAL RESPIRATORY TOYIN 10/17/17 10:10 Blood - Peripheral Venous Blood Culture - Final NO GROWTH AFTER 5 DAYS INCUBATION 10/17/17 10:10 Blood - Peripheral Venous Blood Culture - Final NO GROWTH AFTER 5 DAYS INCUBATION 10/17/17 13:57 Urine - Urine Clean Catch Urine Culture - Final NO GROWTH OBTAINED 10/17/17 13:57 Urine For Antigen Detection Legionella Antigen - Final 10/17/17 13:57 Urine For Antigen Detection Streptococcus pneumoniae Antigen (M - Final 10/17/17 10:25 Nasopharyngeal Swab Influenza Types A,B Antigen ([facility]) - Final 10/17/17 10:25 Nasopharyngeal Swab - Final ASSESSMENT AND PLAN: 62 yo M active smoker, pMHx of NIDDM, PUD, BPH admitted with acute hypoxic respiratory failure, and extensive RLE DVT -Acute hypoxic respiratory failure, suspect from ?ILD with pneumonitis s/p intubation 11/03, trach 11/07, exchanged 11/11 for cuff, now recurrent worsening respiratory failure, suspected aspiration PNA with sepsis -Extensive RLE Acute DVT, s/p IVC filter 10/20, thrombectmy 10/24 - Acute diastolic heart failure -Sepsis on admission, likely from PNA, now recurrent concerns for aspiration PNA -Lactic acidosis, from sepsis vs increased work of breathing, resolved -MIRLANDE on admission from sepsis, now recurrent, ?Sepsis, vs ATN vs r/o obstructive process -Hypernatremia -Thrombocytopenia -Elevated INR -Chest wall and right sided abdominal pain -NIDDM -PUD -BPH -Cachexia/malnutrition Plan: Worsening respiratory status, back in ICU. Trach cuff leak, s/p extended trach placed today with no further leak. CXR no new infiltrate but ?Aspiration PNA vs pneumonitis. ID input appreciated. zosyn resumed day 2 (prior s/p 7 days of ceftriaxone/azithromycin). Sputum/ blood cultures, send Flu swab. . Continue prednisone. ?ILD with pneumonitis, unclear etiology, on Eliquis, hold for procedure as indicated. Bladder scan, renal ultrasound, nephrology consult. Urine studies. Suspect hypovolumia. INcrease free water flushes to 200ml q4h. . s/p PEG 11/09, tube feeds on hold given new concerns for aspiration. Follow up speech/swallow eval. Intermittent agitation, 2 point restraints as pulls at the vent. Hold xanax given lethargy. Platelets improved. replete lytes prn. Ac 7.4, ISS, hold oral hypoglycemics. Resume levemir as needed Continue flomax. Nicotine patch MICU monitoring. PLan discussed with daughter at bedside, all questions answered. Total critical care time spent in ICU 35 min.
[2017-11-14] MEDS ORDERED: RAPID SEQUENCE INTUBATION KIT NR ONE (10:31)
[2017-11-14] MEDS: MUPIROCIN 2% TOPICAL OINTMENT FOR DECOLONIZATION NS SCH ×2 (10:45→21:36)
--- NOTE | 2017-11-14 11:21 | OP ---
Operative Note - Note: Operative Date: 11/14/17 Pre-Operative Diagnosis: Respiratory Failure Operation: Bronchoscopy, tracheostomy change Findings: Tracheostomy in good position; old mucus in airway, no obvious tracheomalacia; distal XLT placed (Shiley #[id number]) without difficulty and no leak after. Post-Operative Diagnosis: Same as Pre-op Surgeon: Evans Rosario E Business Manager: Christopher Lara MD Anesthesia: MAC Estimated Blood Loss (mls): 0 Drains & Tubes with Location: Shiley #[id number] distal Operative Report Dictated: Yes
[2017-11-14] MEDS ORDERED: SODIUM CHLORIDE 1,000 ML IV STA (11:52)
--- NOTE | 2017-11-14 11:56 | PROC ---
Procedure Note Procedure: BRONCHOSCOPY NOTE After obtaining informed consent from daughter/HCP, Storz video bronchoscope was passed via the existing tracheostomy and airways examined down to the subsegmental level. The distal end of the tracheostomy was proximal to the rolando, some thick dried secretions noted. No endobronchial lesions seen in either lung. Tracheostomy was replaced by the surgeon with a size 7 XLT shiley tracheostomy without complications. Bronchoscope then passed via the new tracheostomy confirming position above the rolando. The bronchoscope was then passed orally, vocal cords visualized, noted to be edematous. Tracheostomy also confirmed in place from above. Bronchoscope then withdrawn and procedure terminated. No immediate complications. Christopher Lara MD
[2017-11-14] MEDS: PANTOPRAZOLE SODIUM 40 MG VIAL IVPUSH SCH (12:00)
--- NOTE | 2017-11-14 12:02 | PN ---
Teaching Attending Note Name of Resident: Evans Marie ATTENDING PHYSICIAN STATEMENT I saw and evaluated the patient. I reviewed the resident's note and discussed the case with the resident. I agree with the resident's findings and plan as documented. SUBJECTIVE: Pt seen and examined in the ICU. Transferred back down due to increasing lethargy, tachypnea and tachycardia. s/p bronchoscopy and trach change this AM, now with size 7 XLT Shiley. OBJECTIVE: Last Vital Signs Temp Pulse Resp BP Pulse Ox 98.7 F 107 H 28 H 96/67 97 11/14/17 10:00 11/14/17 10:00 11/14/17 11:35 11/14/17 10:00 11/14/17 11:41 Intake & Output 11/11/17 11/12/17 11/13/17 11/14/17 23:59 23:59 23:59 23:59 Intake Total 325 762.8 Output Total 180 900 300 300 Balance -180 -575 -300 462.8 Weight 65.317 kg 66.179 kg 64.501 kg 40.9 kg Gen: vented, sedated Heart: tachycardic, regular Lung: scattered rhonchi Abd: soft, nontender Ext: no edema CBC, BMP 11/14/17 05:15 11/14/17 05:15 Active Medications Acetaminophen (Tylenol -) 650 mg PO Q6H PRN PRN Reason: FEVER Acetaminophen (Ofirmev Injection -) 1,000 mg IVPB Q6H PRN PRN Reason: FEVER Albuterol/Ipratropium (Duoneb -) 1 amp NEB RQID [facility] Last Admin: 11/14/17 11:34 Dose: 1 amp Amino Acids (Prosource No Carb Liquid Pkt) 30 ml PO BID@0800,1730 [facility] Apixaban (Eliquis -) 5 mg PO BID [facility] Last Admin: 11/13/17 21:34 Dose: 5 mg Artificial Tears (Artificial Tears Ointment -) 1 applic OU HS [facility] Last Admin: 11/13/17 22:00 Dose: 1 applic Chlorhexidine Gluconate (Hibiclens For Decolonization -) 1 applic TP HS [facility] Last Admin: 11/13/17 21:34 Dose: 1 applic Piperacillin Sod/Tazobactam (Sod 3.375 gm/ Dextrose) 100 mls @ 200 mls/hr IVPB Q8H-IV [facility] PRN Reason: Protocol Last Admin: 11/14/17 04:30 Dose: 200 mls/hr Dextrose (D5w -) 1,000 mls @ 42 mls/hr IV ASDIR [facility] Last Admin: 11/13/17 19:00 Dose: 42 mls/hr Propofol (Diprivan -) 1,000,000 mcg in 100 mls @ 1.96 mls/hr IVPB TITR [facility]ONAL; 5 MCG/KG/MIN PRN Reason: Protocol Last Admin: 11/13/17 20:00 Dose: 20 mcg/kg/min, 7.838 mls/hr Sodium Chloride (Normal Saline -) 1,000 mls @ 1,000 mls/hr IV ASDIR STA Stop: 11/14/17 12:51 Insulin Aspart (Novolog Vial Sliding Scale -) 1 vial SQ ACHS [facility] PRN Reason: Protocol Last Admin: 11/14/17 06:28 Dose: Not Given Insulin Detemir (Levemir Vial) 4 units SQ HS [facility] Metoprolol Tartrate (Lopressor Injection -) 5 mg IVPUSH Q4H PRN PRN Reason: HYPERTENSION Mupirocin (Bactroban Ointment (For Decolonization) -) 1 applic NS BID [facility] Stop: 11/18/17 21:59 Last Admin: 11/13/17 21:34 Dose: 1 applic Pantoprazole Sodium (Protonix Iv) 40 mg IVPUSH DAILY [facility] Prednisone (Deltasone -) 40 mg PO DAILY [facility] Ranitidine HCl (Zantac -) 150 mg PO DAILY [facility] Roflumilast (Daliresp -) 500 mcg NGT DAILY [facility] Saliva Substitute (Mouthkote Solution -) 1 applic MM DAILY [facility] ASSESSMENT AND PLAN: Acute Hypoxic Respiratory Failure s/p Tracheostomy Pneumonia Sepsis Interstitial Lung Disease Acute Diastolic Heart Failure improved Acute Kidney Injury Lactic Acidosis resolved DM RLE DVT - back on antibiotics - f/u cultures - IVF challenge - monitor urine output, creatinine - increase free water - continue prednisone - anxiolytics, seroquel qHS - enteral feeds - continue anticoagulation - swallow eval for possible PO intake when airway issues resolved - taper FiO2 to keep SpO2 >90% - spontaneous breathing trials as tolerated - DVT/GI prophylaxis - continue ICU monitoring for now critical care time spent in reviewing chart, evaluating patient and formulating plan 35 min Problem List - Problems (1) Acute respiratory failure with hypoxia Code(s): J96.01 - ACUTE RESPIRATORY FAILURE WITH HYPOXIA (2) Pneumonia Code(s): J18.9 - PNEUMONIA, UNSPECIFIED ORGANISM (3) Diabetes Code(s): E11.9 - TYPE 2 DIABETES MELLITUS WITHOUT COMPLICATIONS
--- NOTE | 2017-11-14 12:41 | PN ---
Progress Note, Physician History of Present Illness: Transferred back to ICU Awake but lethargic Breathing non-labored Afebrile WBC increased 18k - Current Medication List Current Medications: Active Medications Acetaminophen (Tylenol -) 650 mg PO Q6H PRN PRN Reason: FEVER Acetaminophen (Ofirmev Injection -) 1,000 mg IVPB Q6H PRN PRN Reason: FEVER Albuterol/Ipratropium (Duoneb -) 1 amp NEB RQID [facility] Last Admin: 11/14/17 11:34 Dose: 1 amp Amino Acids (Prosource No Carb Liquid Pkt) 30 ml PO BID@0800,1730 [facility] Apixaban (Eliquis -) 5 mg PO BID [facility] Last Admin: 11/13/17 21:34 Dose: 5 mg Artificial Tears (Artificial Tears Ointment -) 1 applic OU HS [facility] Last Admin: 11/13/17 22:00 Dose: 1 applic Chlorhexidine Gluconate (Hibiclens For Decolonization -) 1 applic TP HS [facility] Last Admin: 11/13/17 21:34 Dose: 1 applic Piperacillin Sod/Tazobactam (Sod 3.375 gm/ Dextrose) 100 mls @ 200 mls/hr IVPB Q8H-IV [facility]ONAL PRN Reason: Protocol Last Admin: 11/14/17 04:30 Dose: 200 mls/hr Dextrose (D5w -) 1,000 mls @ 42 mls/hr IV ASDIR [facility] Last Admin: 11/13/17 19:00 Dose: 42 mls/hr Propofol (Diprivan -) 1,000,000 mcg in 100 mls @ 1.96 mls/hr IVPB TITR SONAL; 5 MCG/KG/MIN PRN Reason: Protocol Last Admin: 11/13/17 20:00 Dose: 20 mcg/kg/min, 7.838 mls/hr Sodium Chloride (Normal Saline -) 1,000 mls @ 1,000 mls/hr IV ASDIR STA Stop: 11/14/17 12:51 Insulin Aspart (Novolog Vial Sliding Scale -) 1 vial SQ ACHS [facility] PRN Reason: Protocol Last Admin: 11/14/17 06:28 Dose: Not Given Insulin Detemir (Levemir Vial) 4 units SQ HS [facility] Metoprolol Tartrate (Lopressor Injection -) 5 mg IVPUSH Q4H PRN PRN Reason: HYPERTENSION Mupirocin (Bactroban Ointment (For Decolonization) -) 1 applic NS BID [facility]ON[facility] Stop: 11/18/17 21:59 Last Admin: 11/13/17 21:34 Dose: 1 applic Pantoprazole Sodium (Protonix Iv) 40 mg IVPUSH DAILY [facility] Prednisone (Deltasone -) 40 mg PO DAILY [facility] Ranitidine HCl (Zantac -) 150 mg PO DAILY [facility] Roflumilast (Daliresp -) 500 mcg NGT DAILY [facility] Saliva Substitute (Mouthkote Solution -) 1 applic MM DAILY [facility]ON[facility] - Objective Vital Signs: Vital Signs Temperature 98.7 F 11/14/17 10:00 Pulse Rate 107 H 11/14/17 10:00 Respiratory Rate 28 H 11/14/17 11:35 Blood Pressure 96/67 11/14/17 10:00 O2 Sat by Pulse Oximetry (%) 97 11/14/17 11:41 Constitutional: Yes: No Distress, Cachectic Cardiovascular: Yes: Regular Rate and Rhythm, S1, S2 Respiratory: Yes: Diminished Gastrointestinal: Yes: Normal Bowel Sounds, Soft. No: Tenderness Edema: No Labs: CBC, BMP 11/14/17 05:15 11/14/17 05:15 INR, PTT INR 1.02 (0.82-1.09) 11/09/17 05:50 Assessment/Plan Interstitial lung disease ? aspiration pneumonitis Cultures pending Empiric coverage HCAP with zosyn
[2017-11-14 12:45] LABS: MAGNESIUM 2.5 mg/dL (1.8-2.4); PHOSPHOROUS 4.4 mg/dL (2.5-4.9)
--- NOTE | 2017-11-14 14:49 | CONSULT ---
Consult Consult Specialty:: Nephrology Reason for Consultation:: MIRLANDE - History of Present Illness Chief Complaint: initially came in for shortness of breath History of Present Illness: Pt is a 62 year old male with and extensive hospital stay. I was called to evaluate him for elevated creatinine. He is s/p trache change and is unable to give much history. Discussed wit ICU team and reviewed chart. Pt has history of interstial lung disease. He was noted to have elevated creatinine and sodium on his labs. He has a peg and is on tube feeds. He remains in the ICU. - History Source History Provided By: Medical Record - Past Medical History Pulmonary: Yes: Other (resp failure) Gastrointestinal: Yes: Other (peg) Endocrine: Yes: Diabetes Mellitus - Past Surgical History Additional Surgical History: tracheostomy, peg tube - Alcohol/Substance Use Hx Alcohol Use: No - Smoking History Smoking history: Never smoked Aproximately how many cigarettes per day: 2 Home Medications - Allergies Allergies/Adverse Reactions: Allergies Allergy/AdvReac Type Severity Reaction Status Date / Time No Known Allergies Allergy Verified 10/17/17 09:56 - Home Medications Home Medications: Ambulatory Orders Glipizide [Glucotrol Xl] 0 mg PO ASDIR 10/17/17 Metformin HCl 0 mg PO ASDIR 10/17/17 Tamsulosin HCl 0.4 mg PO DAILY 10/17/17 Family Disease History - Family Disease History Family History: Unable to Obtain Review of Systems Unable to obtain ROS, reason: pt trached Physical Exam Vital Signs: Vital Signs Temperature 98.7 F 11/14/17 10:00 Pulse Rate 95 H 11/14/17 14:00 Respiratory Rate 22 11/14/17 14:12 Blood Pressure 112/63 11/14/17 14:00 O2 Sat by Pulse Oximetry (%) 97 11/14/17 11:41 Constitutional: Yes: Calm Eyes: Yes: Conjunctiva Clear Neck: Yes: Other (trache) Cardiovascular: Yes: S1, S2 Respiratory: Yes: Mechanically Ventilated Gastrointestinal: Yes: Soft Renal/: Yes: Other (external cath) Musculoskeletal: Yes: Muscle Weakness Edema: No Neurological: Yes: Lethargy Labs: CBC, BMP 11/14/17 05:15 11/14/17 05:15 Laboratory Tests 10/17/17 10/20/17 10/20/17 10:15 06:10 13:02 ABG pH ABG pCO2 at Pt Temp ABG pO2 at Pt Temp ABG HCO3 Sodium Potassium Chloride Carbon Dioxide Anion Gap Creatinine 1.5 H 1.5 H D Urine Protein Urine Blood IgG IgA MERYL & SPEP Interp Total Protein (MREYL) Albumin (MERYL) Albumin/Globulin (MERYL) Vshdt-6-Jydtpcqfp MERYL Ljfni-9-Kshiomykv MERYL HIV 1&2 Antibody Screen Negative HIV P24 Antigen Negative 10/21/17 10/21/17 10/27/17 05:50 05:50 05:00 ABG pH ABG pCO2 at Pt Temp ABG pO2 at Pt Temp ABG HCO3 Sodium Potassium Chloride Carbon Dioxide Anion Gap Creatinine 0.7 Urine Protein Urine Blood IgG 2191 H IgA 462 H MERYL & SPEP Interp Pending Total Protein (MERYL) Pending Albumin (MERYL) Pending Albumin/Globulin (MERYL) Pending Iyfps-4-Loaqkdqll MERYL Pending Jcdvm-8-Ckxvltisw MERYL Pending HIV 1&2 Antibody Screen HIV P24 Antigen 10/28/17 10/30/17 10/31/17 05:50 05:20 05:00 ABG pH ABG pCO2 at Pt Temp ABG pO2 at Pt Temp ABG HCO3 Sodium Potassium Chloride Carbon Dioxide Anion Gap Creatinine 0.7 0.6 L 0.5 L Urine Protein Urine Blood IgG IgA MERYL & SPEP Interp Total Protein (MERYL) Albumin (MERYL) Albumin/Globulin (MERYL) Qzpby-1-Xdgcobusw MEYRL Hjdfu-0-Caxprepga MERYL HIV 1&2 Antibody Screen HIV P24 Antigen 11/01/17 11/10/17 11/11/17 05:10 05:25 06:10 ABG pH ABG pCO2 at Pt Temp ABG pO2 at Pt Temp ABG HCO3 Sodium Potassium Chloride Carbon Dioxide Anion Gap Creatinine 0.5 L 0.6 L 0.8 Urine Protein Urine Blood IgG IgA MERYL & SPEP Interp Total Protein (MERYL) Albumin (MERYL) Albumin/Globulin (MERYL) Jqjuq-5-Iwrrenhot MERYL Usvxp-2-Dxumvqypw MERYL HIV 1&2 Antibody Screen HIV P24 Antigen 11/13/17 11/13/17 11/14/17 05:30 18:50 05:15 ABG pH 7.33 L ABG pCO2 at Pt Temp 79.5 H* ABG pO2 at Pt Temp 191.0 H* ABG HCO3 41.0 H* Sodium 155 H Potassium 4.3 Chloride 109 H Carbon Dioxide 42 H Anion Gap 4 L Creatinine 0.8 2.0 H D Urine Protein Urine Blood IgG IgA MERYL & SPEP Interp Total Protein (MERYL) Albumin (MERYL) Albumin/Globulin (MERYL) Foxvx-6-Hsztvuivr MERYL Jggbc-4-Gtfdjchpg MERYL HIV 1&2 Antibody Screen HIV P24 Antigen 11/14/17 14:30 ABG pH ABG pCO2 at Pt Temp ABG pO2 at Pt Temp ABG HCO3 Sodium Potassium Chloride Carbon Dioxide Anion Gap Creatinine Urine Protein 2+ H Urine Blood 1+ H IgG IgA MERYL & SPEP Interp Total Protein (MERYL) Albumin (MERYL) Albumin/Globulin (MERYL) Fjqnp-7-Pklqvauqo MERYL Ligwd-7-Ecevzgkze MERYL HIV 1&2 Antibody Screen HIV P24 Antigen Imaging - Results Chest X-ray: Report Reviewed Ultrasound: Report Reviewed (negative hydro) Problem List - Problems (1) Hypernatremia Code(s): E87.0 - HYPEROSMOLALITY AND HYPERNATREMIA (2) MIRLANDE (acute kidney injury) Code(s): N17.9 - ACUTE KIDNEY FAILURE, UNSPECIFIED (3) Acute respiratory failure with hypoxia Code(s): J96.01 - ACUTE RESPIRATORY FAILURE WITH HYPOXIA (4) Diabetes Code(s): E11.9 - TYPE 2 DIABETES MELLITUS WITHOUT COMPLICATIONS (5) Failure to thrive Code(s): BOU5896 - Assessment/Plan Current Medications Generic Name Dose Route Start Last Admin Trade Name Freq PRN Reason Stop Dose Admin Acetaminophen 650 mg 11/13/17 19:10 Tylenol - PO Q6H PRN FEVER Acetaminophen 1,000 mg 11/13/17 19:10 Ofirmev Injection - IVPB Q6H PRN FEVER Albuterol/Ipratropium 1 amp 11/13/17 20:00 11/14/17 16:32 Duoneb - NEB 1 amp RQID SONAL Administration Amino Acids 30 ml 11/14/17 17:30 Prosource No Carb Liquid Pkt PO BID@0800,1730 SONAL Apixaban 5 mg 11/13/17 22:00 11/13/17 21:34 Eliquis - PO 5 mg BID SONAL Administration Artificial Tears 1 applic 11/13/17 22:00 11/13/17 22:00 Artificial Tears Ointment - OU 1 applic HS [facility]ONAL Administration Chlorhexidine Gluconate 1 applic 11/13/17 22:00 11/13/17 21:34 Hibiclens For Decolonization - TP 1 applic HS [facility] Administration Piperacillin Sod/Tazobactam 100 mls @ 200 mls/hr 11/13/17 18:00 11/14/17 04: 30 Sod 3.375 gm/ Dextrose IVPB 200 mls/hr Q8H-IV SONAL Administration Protocol Dextrose 1,000 mls @ 42 mls/hr 11/13/17 17:15 11/13/17 19:00 D5w - IV 42 mls/hr ASDIR SONAL Administration Propofol 1,000,000 mcg in 100 mls @ 1.96 mls/hr 11/13/17 19:30 11/13/17 20:00 Diprivan - IVPB 20 mcg/kg/min TITR SONAL 7.838 mls/hr Protocol Administration 5 MCG/KG/MIN Insulin Aspart 1 vial 11/13/17 22:00 11/14/17 06:28 Novolog Vial Sliding Scale - SQ Not Given ACHS [facility] Protocol Insulin Detemir 4 units 11/14/17 22:00 Levemir Vial SQ HS [facility] Metoprolol Tartrate 5 mg 11/13/17 19:10 Lopressor Injection - IVPUSH Q4H PRN HYPERTENSION Mupirocin 1 applic 11/13/17 22:00 11/13/17 21:34 Bactroban Ointment (For Decolonization) - NS 11/18/17 21:59 1 applic BID SONAL Administration Pantoprazole Sodium 40 mg 11/14/17 12:00 Protonix Iv IVPUSH DAILY [facility] Prednisone 40 mg 11/14/17 10:00 Deltasone - PO DAILY [facility] Ranitidine HCl 150 mg 11/14/17 10:00 Zantac - PO DAILY [facility] Roflumilast 500 mcg 11/14/17 10:00 Daliresp - NGT DAILY [facility] Saliva Substitute 1 applic 11/14/17 10:00 Mouthkote Solution - MM DAILY [facility]ONAL labs reviewed chart reviewed meds reviewed Impression 1. MIRLANDE 2. hypernatremia 3. chronic resp failure s/p trache 4. s/p trache 5. s/p peg 6. sepsis 7. interstitial lung disease 8. chf diastolic 9. DM 10. lactic acidosis 11. PNA Plan - based on weight of 142 pounds he has a free water deficit of about 4.1 liters. He will need about 2.6 liters to get him to a sodium of 145 - pt has a FENa of 0.29 percent, which is consistent with pre-renal disease - cont with fluids - cont with free water with feeds - repeat labs in am - renal ultrasound negative for hydro - avoid nsaids - repeat bmp in am to see if he is improving - monitor bp - trache was fixed today - repeat abg - discussed with ICU team - cont ICU care Dr Gan
[2017-11-14 15:25] LABS: URINE APPEARANCE TURBID; URINE BILIRUBIN NEGATIVE (NEGATIVE); URINE BLOOD 1+ (NEGATIVE); URINE COLOR YELLOW; URINE GLUCOSE (UA) NEGATIVE (NEGATIVE); URINE KETONE NEGATIVE (NEGATIVE); URINE NITRITE NEGATIVE (NEGATIVE); URINE UROBILINOGEN NEGATIVE mg/dL (0.2-1.0)
[2017-11-14 15:41] LABS: URINE LEUK ESTERASE 1+ (NEGATIVE); URINE PROTEIN 2+ (NEGATIVE)
[2017-11-14 15:52] LABS: EPI CELLS FEW /HPF (FEW); URINE HYALINE CAST 27 /lpf; URINE MUCUS RARE; YEAST MANY
--- NOTE | 2017-11-14 15:54 | OPR ---
Patient Name: Austin Hernandez MR#: [id number] Procedure Date: 11/07/2017 Preoperative Diagnosis: Respiratory failure. Postoperative Diagnosis: same. Procedure: 1. Bronchoscopy (performed by Dr. Lara); 2. Trahceostomy change to Shiley #7 XLT distal. Indication: Respiratory failure; Surgeon(s): Evans Rosario MD Cosurgeon: Dr. Lara. Tax Senior Associate Surgeon: landy. Anesthesia: General endotracheal; Findings: Abundant secretions; old tracheostomy in good position; no injury to membranous trachea apparent. Specimens Sent: 1. na; Complications: none Drains / Tubes / Catheters: na Hardware / Implants: na Blood / Fluid Losses: minimal Post-Operative Condition: Stable. Indications: This patient is a 62 year-old male with respiratory failure referred for tracheostomy by Dr. Souza and the ICU team. Four days after tracheostomy, he developed a leak around his cuff. His tracheostomy was changed. Two days after this change, he developed another leak. For this reason , Dr. Lara and I discussed a bronchoscopy with a change to a longer tracheostomy with his daughter. She then gave an informed consent. Details of Procedure: The procedure was done at the bedside. We began with bronchoscopy to clear the airway for the procedure and to evaluate the old tracheostomy position. It was in good position and there was enough distance to the rolando to place a longer one in case there was some degree of malacia causing the leak. We then positioned him appropriately and changed to a #7 XLT. The procedure went smoothly. A bronchoscopy from above and below showed the tracheostomy in good position without any injury. There was no further leaking around the cuff.
[2017-11-14] MEDS: RANITIDINE HCL 150 MG TABLET (FP) PO SCH (16:58)
[2017-11-14] MEDS: APIXABAN 5 MG TABLET PO SCH ×2 (16:58→21:35)
[2017-11-14] MEDS: ROFLUMILAST 500 MCG TABLET NGT SCH (16:58)
[2017-11-14] MEDS: predniSONE 20 MG TABLET (UD) PO SCH (16:58)
[2017-11-14] MEDS ORDERED: PT OWN MED DRAWER 7, Y5N ONE (17:01)
[2017-11-14] MEDS: AMINO ACIDS/PROTEIN HYDROLYS 30 ML LIQUID.PKT PO SCH (17:24)
[2017-11-14] MEDS: PROPOFOL 1,000,000 MCG/100 ML VIAL IVPB SCH (21:30)
[2017-11-14] MEDS: CHLORHEXIDINE GLUCONATE 4% CLEANSER FOR DECOLONIZATION TP SCH (21:36)
[2017-11-14] MEDS ORDERED: INSULIN DETEMIR 100 UNITS/ML MDV SQ SCH (22:00)
[2017-11-14] MEDS: MINERAL OIL/PETROLATUM,WHITE 3.5 GM TUBE OU SCH (22:07)
[2017-11-15] MEDS: PIPERACILLIN/TAZOB 3.375 GM 3.375 GM in DEXTROSE 5%-WATER - 100 ML IVPB SCH ×2 (03:02→10:50)
[2017-11-15 05:48] LABS: HEMATOCRIT 29.2 % (35.4-49); HEMOGLOBIN 9.1 GM/dL (11.7-16.9); MCH 31.9 pg (25.7-33.7); MCHC 31.3 g/dl (32.0-35.9); MEAN CELL VOLUME 101.9 fl (80-96); MEAN PLT VOLUME 11.3 fl (7.5-11.1); PLATELET COUNT 247 K/MM3 (134-434); RBC 2.86 M/mm3 (4.00-5.60); RDW 17.4 % (11.9-15.9); WHITE BLOOD COUNT 15.7 K/mm3 (4.0-10.0)
[2017-11-15 06:05] LABS: ALBUMIN 2.3 g/dl (3.4-5.0); ANION GAP 9 (8-16); BILIRUBIN,TOTAL 0.7 mg/dL (0.2-1.0); BLOOD UREA NITROGEN 87 mg/dL (7-18); CALCIUM 8.9 mg/dL (8.5-10.1); CHLORIDE 104 mmol/L (98-107); CO2 37 mmol/L (21-32); CREATININE 2.2 mg/dL (0.7-1.3); MAGNESIUM 2.5 mg/dL (1.8-2.4); PHOSPHOROUS 4.1 mg/dL (2.5-4.9); SGOT/AST 10 U/L (15-37); SGPT/ALT 12 U/L (12-78); SODIUM 150 mmol/L (136-145); TOT PROT 7.8 g/dl (6.4-8.2)
[2017-11-15 06:07] LABS: ALK PHOS 96 U/L (45-117)
[2017-11-15] MEDS: INSULIN SLIDING SCALE (NOVOLOG) 1 VIAL SQ SCH ×3 (06:12→21:21)
[2017-11-15 06:23] LABS: GLUCOSE,RANDOM 361 mg/dL (74-106)
--- NOTE | 2017-11-15 06:38 | PN ---
Physical Exam: SUBJECTIVE: Patient seen and examined by me this AM -Propofol held, tolerating feeds well. Trace secretions around new trach, sent for sputum culture. O2 titrated down to 60%. ABG this AM 7.44/54/66/36. - Vent settings 18/400/60%/8. Day 3 IV zosyn. - Per renal, 300ml flushes intermittently and 20ml hourly flushes with feeds. - Pt desatting to low 80s on 60% FiO2 OBJECTIVE: Vital Signs Intake & Output 11/12/17 11/13/17 11/14/17 11/15/17 23:59 23:59 23:59 23:59 Intake Total 325 762.8 1240 Output Total 900 300 700 300 Balance -575 -300 62.8 940 Weight 66.179 kg 64.501 kg 40.9 kg Period Temp Pulse Resp BP Sys/Sutton Pulse Ox Last 24 Hr 97.8 F-99.1 F 74-122 18-32 93-144/60-74 95-99 GENERAL: Cachectic man laying in bed, sedated, eyes fixed open in NAD. Vented, trach HEAD: Normal with no signs of trauma. Bitemporal wasting EYES: Eye open, fixed. sclera anicteric, conjunctiva clear. No ptosis. ENT: Ears normal, nares patent, oropharynx clear without exudates, trace secretions noted in oropharynx. NECK: Trach collar in place, no significant erythema, bleeding or purulence. Trachea midline, supple. No JVD noted. LUNGS: Mechanical breath sounds. Diffuse crackles BL. No wheezes, no accessory muscle use HEART: 2/6 systolic ejection murmur at LUSB. Regular rate and rhythm, S1, S2 without murmur, rub or gallop. ABDOMEN: PEG tube in place, no erythema, drainage or purulence. Scaphoid abdomen , hypoactive bowel sounds, no guarding, no rebound, no hepatosplenomegaly, no masses. EXTREMITIES: No edema in LEs. 2+ pulses, warm, well-perfused NEUROLOGICAL: Sedated, somnolent. Responds and reacts to voice. PSYCH: Normal mood, normal affect. Appears depressed. SKIN: Warm, dry, normal turgor, no rashes or lesions noted Laboratory Results - last 24 hr CBC, BMP 11/15/17 05:05 11/15/17 05:05 11/14/17 11/14/17 11/14/17 05:15 05:15 05:15 WBC RBC Hgb Hct MCV MCH MCHC RDW Plt Count MPV PTT (Actin FS) 33.6 Sodium 155 H Potassium 4.3 Chloride 109 H Carbon Dioxide 42 H Anion Gap 4 L BUN 74 H D Creatinine 2.0 H D Creat Clearance w eGFR Random Glucose 164 H D Serum Osmolality 358 H Lactic Acid Calcium 8.6 Phosphorus 4.4 Magnesium 2.5 H Total Bilirubin AST ALT Alkaline Phosphatase Total Protein Albumin Urine Color Urine Appearance Urine pH Ur Specific Sigurd Urine Protein Urine Glucose (UA) Urine Ketones Urine Blood Urine Nitrite Urine Bilirubin Urine Urobilinogen Ur Leukocyte Esterase Urine WBC (Auto) Urine RBC (Auto) Ur Epithelial Cells Hyaline Casts Urine Mucus Urine Yeast Urine Osmolality Ur Random Sodium Ur Random Potassium Ur Random Chloride Urine Creatinine 11/14/17 11/14/17 11/14/17 10:15 14:30 14:30 WBC RBC Hgb Hct MCV MCH MCHC RDW Plt Count MPV PTT (Actin FS) Sodium Potassium Chloride Carbon Dioxide Anion Gap BUN Creatinine Creat Clearance w eGFR Random Glucose Serum Osmolality Lactic Acid 1.7 Calcium Phosphorus Magnesium Total Bilirubin AST ALT Alkaline Phosphatase Total Protein Albumin Urine Color Urine Appearance Urine pH Ur Specific Sigurd Urine Protein Urine Glucose (UA) Urine Ketones Urine Blood Urine Nitrite Urine Bilirubin Urine Urobilinogen Ur Leukocyte Esterase Urine WBC (Auto) Urine RBC (Auto) Ur Epithelial Cells Hyaline Casts Urine Mucus Urine Yeast Urine Osmolality 652 Ur Random Sodium 22 Ur Random Potassium 29.8 Ur Random Chloride < 10 Urine Creatinine 11/14/17 11/14/17 11/15/17 14:30 14:30 05:05 WBC 15.7 H RBC 2.86 L Hgb 9.1 L Hct 29.2 L MCV 101.9 H MCH 31.9 MCHC 31.3 L RDW 17.4 H Plt Count 247 MPV 11.3 H PTT (Actin FS) Sodium Potassium Chloride Carbon Dioxide Anion Gap BUN Creatinine Creat Clearance w eGFR Random Glucose Serum Osmolality Lactic Acid Calcium Phosphorus Magnesium Total Bilirubin AST ALT Alkaline Phosphatase Total Protein Albumin Urine Color Yellow Urine Appearance Turbid Urine pH 5.0 Ur Specific Sigurd 1.023 Urine Protein 2+ H Urine Glucose (UA) Negative Urine Ketones Negative Urine Blood 1+ H Urine Nitrite Negative Urine Bilirubin Negative Urine Urobilinogen Negative Ur Leukocyte Esterase 1+ H Urine WBC (Auto) 21 Urine RBC (Auto) 161 Ur Epithelial Cells Few Hyaline Casts 27 Urine Mucus Rare Urine Yeast Many Urine Osmolality Ur Random Sodium Ur Random Potassium Ur Random Chloride Urine Creatinine 97.1 11/15/17 11/15/17 05:05 05:05 WBC RBC Hgb Hct MCV MCH MCHC RDW Plt Count MPV PTT (Actin FS) 31.3 Sodium 150 H Potassium 4.0 Chloride 104 Carbon Dioxide 37 H Anion Gap 9 BUN 87 H Creatinine 2.2 H Creat Clearance w eGFR 30.38 Random Glucose 361 H* D Serum Osmolality Lactic Acid Calcium 8.9 Phosphorus 4.1 Magnesium 2.5 H Total Bilirubin 0.7 D AST 10 L D ALT 12 Alkaline Phosphatase 96 Total Protein 7.8 Albumin 2.3 L Urine Color Urine Appearance Urine pH Ur Specific Sigurd Urine Protein Urine Glucose (UA) Urine Ketones Urine Blood Urine Nitrite Urine Bilirubin Urine Urobilinogen Ur Leukocyte Esterase Urine WBC (Auto) Urine RBC (Auto) Ur Epithelial Cells Hyaline Casts Urine Mucus Urine Yeast Urine Osmolality Ur Random Sodium Ur Random Potassium Ur Random Chloride Urine Creatinine Active Medications Generic Name Dose Route Start Last Admin Trade Name Freq PRN Reason Stop Dose Admin Acetaminophen 650 mg 11/13/17 19:10 Tylenol - PO Q6H PRN FEVER Acetaminophen 1,000 mg 11/13/17 19:10 Ofirmev Injection - IVPB Q6H PRN FEVER Albuterol/Ipratropium 1 amp 11/13/17 20:00 11/14/17 21:50 Duoneb - NEB 1 amp RQID SONAL Administration Amino Acids 30 ml 11/14/17 17:30 11/14/17 17:24 Prosource No Carb Liquid Pkt PO 30 ml BID@0800,1730 SONAL Administration Apixaban 5 mg 11/13/17 22:00 11/14/17 21:35 Eliquis - PO 5 mg BID SONAL Administration Artificial Tears 1 applic 11/13/17 22:00 11/14/17 22:07 Artificial Tears Ointment - OU 1 applic HS SONAL Administration Chlorhexidine Gluconate 1 applic 11/13/17 22:00 11/14/17 21:36 Hibiclens For Decolonization - TP 1 applic HS SONAL Administration Piperacillin Sod/Tazobactam 100 mls @ 200 mls/hr 11/13/17 18:00 11/15/17 03: 02 Sod 3.375 gm/ Dextrose IVPB 200 mls/hr Q8H-IV SONAL Administration Protocol Propofol 1,000,000 mcg in 100 mls @ 1.96 mls/hr 11/13/17 19:30 11/14/17 21:30 Diprivan - IVPB Not Given TITR SONAL Protocol 5 MCG/KG/MIN Insulin Aspart 1 vial 11/13/17 22:00 11/15/17 06:12 Novolog Vial Sliding Scale - SQ 10 units ACHS SONAL Administration Protocol Insulin Detemir 4 units 11/14/17 22:00 11/14/17 22:19 Levemir Vial SQ 4 units HS SONAL Administration Metoprolol Tartrate 5 mg 11/13/17 19:10 11/14/17 21:39 Lopressor Injection - IVPUSH 5 mg Q4H PRN Administration HYPERTENSION Mupirocin 1 applic 11/13/17 22:00 11/14/17 21:36 Bactroban Ointment (For Decolonization) - NS 11/18/17 21:59 1 applic BID SONAL Administration Pantoprazole Sodium 40 mg 11/14/17 12:00 11/14/17 12:00 Protonix Iv IVPUSH 40 mg DAILY SONAL Administration Prednisone 40 mg 11/14/17 10:00 11/14/17 16:58 Deltasone - PO Not Given DAILY SONAL Ranitidine HCl 150 mg 11/14/17 10:00 11/14/17 16:58 Zantac - PO Not Given DAILY [facility] Roflumilast 500 mcg 11/14/17 10:00 11/14/17 16:58 Daliresp - NGT Not Given DAILY [facility] Saliva Substitute 1 applic 11/14/17 10:00 11/14/17 09:00 Mouthkote Solution - MM 1 applic DAILY SONAL Administration Microbiology 11/13/17 17:30 Blood - Peripheral Venous Blood Culture - Preliminary NO GROWTH OBTAINED AFTER 24 HOURS, INCUBATION TO CONTINUE FOR 4 DAYS. 11/13/17 17:10 Blood - Peripheral Venous Blood Culture - Preliminary NO GROWTH OBTAINED AFTER 24 HOURS, INCUBATION TO CONTINUE FOR 4 DAYS. 10/21/17 06:00 Serum Cryptococcal Antigen - Final 10/19/17 19:30 Sputum - Expectorated Gram Stain - Final 10/19/17 19:30 Sputum - Expectorated Sputum Culture - Final NORMAL RESPIRATORY TOYIN 10/17/17 10:10 Blood - Peripheral Venous Blood Culture - Final NO GROWTH AFTER 5 DAYS INCUBATION 10/17/17 10:10 Blood - Peripheral Venous Blood Culture - Final NO GROWTH AFTER 5 DAYS INCUBATION 10/17/17 13:57 Urine - Urine Clean Catch Urine Culture - Final NO GROWTH OBTAINED 10/17/17 13:57 Urine For Antigen Detection Legionella Antigen - Final 10/17/17 13:57 Urine For Antigen Detection Streptococcus pneumoniae Antigen (M - Final 10/17/17 10:25 Nasopharyngeal Swab Influenza Types A,B Antigen ([facility]) - Final 10/17/17 10:25 Nasopharyngeal Swab - Final Recent imaging: CXR 10/21/17 - Since 10/30/2017, the ARDS pattern has diminished minimally. Follow- up recommended. CT Abdomen 10/31 - The gallbladder demonstrates no definite CT pathology. There is nonspecific minimal to mild intrahepatic biliary tract dilatation. Clinical/ laboratory correlation is suggested as well as with follow-up CT. Dilatation of the main pancreatic duct as noted above. Pancreatic ductal dilatation was also noted on a 2013 ultrasound exam. Several small pancreatic head calcifications are seen suggestive of chronic calcific pancreatitis. No gross mass lesion is identified. Correlate with MRI/MRCP when the patient's clinical condition permits. No CT evidence of acute pancreatitis. Mild acute pancreatitis is frequently not demonstrable on CT or MRI. The partially imaged lower chest demonstrates prominent bilateral interstitial thickening with relative peripheral sparing - ? Noncardiogenic edema, infectious versus noninfectious pneumonitis, hemorrhage. Correlate clinically. This finding may be somewhat increased in comparison to a chest CT exam of 10/20/2017. No pleural effusion is seen. Bibasilar bronchiectasis. There is partial imaging of nonspecific mediastinal lymphadenopathy (as described on chest CT). Prominent atherosclerotic vascular calcifications. Mild to moderate L1 and mild L5 vertebral body compression fractures are noted which appear chronic. No bony retropulsion is seen. The visualized osseous structures appear to be diffusely demineralized. Clinical/laboratory correlation is suggested. Additional evaluation utilizing bone densitometry/DEXA scan may be considered. CXR 11/01 - Since a prior study of 10/31/2017, extensive opacification is identified throughout the lung james with little significant change. This is consistent with ARDS. No pleural effusions have developed. CXR 11/02 - No significant change from prior cxr. Still with BL reticulonodular diffuse opacification. CXR 11/05 - No significant change. BL reticulonodular pattern. CXR 11/06 - No change overall CXR 11/07 - Trach in place. Diffuse BL interstitial and possible alveolar changes. No pneumo or pleural effusions. ekg 11/08 - NSR, Rate 86, QTC 409, LVH, NANCY, no ST/Twave changes CXR 11/08 - No significant interval changes, BL parenchymal reticulonodular infiltrates, ETT tube, NG tube in place CXR 11/09 - no change from prior CXR 11/10 - No change CXR 11/13 - Good placement of ETT tube CXR 11/14 - no significant change Renal U/S 11/14 - Normal kidneys BL. CXR 11/15 - No change 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 #Acute hypoxic respiratory failure (possibly 2/2 ILD vs Pneumonitis)- s/p trach 11/07 after failed vent wean; trach exchanged 11/11; Episode of desat to 80s after transfer to floors on 50% FiO2, transferred back to ICU and placed on 100 % O2 - Taper FiO2 as tolerated to maintain SpO2 >90% - c/w Prednisone 40mg daily - c/w Roflumilast and Duonebs QID - Trach exchange yesterday; well tolerated; sputum around new trach; sent for sputum culture - Will require wean to 50% FiO2 for placement at [facility] for intermediate care - off sedation today; start PEG feeds yesterday with 20ml flushes; 300ml water flushes every 4 hours - Consider seroquel qHS, restarting anxiolytics if needed - 2pt restraints as pt pulling at trach #Leukocytosis, WBC 18 -> 15.7 today; suspected aspiration event; CXR w/ no infiltrates - f/u all cultures - ID consulted - Day 3 Zosyn for empiric coverage; switched to renal dosing 2.25 q8h -trend fever, wbc curve - No evidence of new focal consolidation on cxr - flu swab negative #hypernatremia, Na 155-> 150 today - Renal consulted - Pre-renal; FeNa 0.3%; likely secondary to hypovolemia - Increase free water flushes via PEG tube; 300ml q4h - Daily BMP, trend Na - 1/2 NS 42cc/hr, as pt hyperglycemic #MIRLANDE - Cr 2.0 -> 2.2 today; Likely secondary to dehydration vs. sepsis vs. possible obstruction - Renal U/S nrml - Urine lytes - Renal consult - IVFs - Trend Cr - UA #agitation - repeated attempts to remove trach; -Restraints prn -cont holding xanax - propofol for sedation #RLE DVT s/p IVC filter 10/20 and thrombectomy 10/24 -c/w Eliquis 5mg BID #Acute on diastolic CHF - Not clinically volume overloaded -c/w hold lasix #DM (A1c 7.4 on admission); On D5W -BGM -ISS ACHS - Levemir 5u BID #BPH - - flomax held #Nicotine dependence - c/w nicotine patch #PPX Eliquis 5mg BID Zantac 150mg daily #FEN: 1/2 NS 42cc/hr Daily BMP, trend Na Cont tube feeds Dispo to ICU Discussed with attending, Dr. James Reeves, PGY1 Visit type - Emergency Visit Emergency Visit: Yes ED Registration Date: 10/17/17 Care time: The patient presented to the Emergency Department on the above date and was hospitalized for further evaluation of their emergent condition. - New Patient This patient is new to me today: No - Critical Care Critical Care patient: Yes Total Critical Care Time (in minutes): 35 Critical Care Statement: The care of this patient involved high complexity decision making to prevent further life threatening deterioration of the patient 's condition and/or to evaluate & treat vital organ system(s) failure or risk of failure.
--- NOTE | 2017-11-15 07:11 | PN ---
Progress Note, Physician Chief Complaint: ID Vent dependent Tachypneic and tachcardic Thoracic surgery note reviewed regarding trach leak and bronchoscopy Zosyn along Prednisone - Current Medication List Current Medications: Active Medications Acetaminophen (Tylenol -) 650 mg PO Q6H PRN PRN Reason: FEVER Acetaminophen (Ofirmev Injection -) 1,000 mg IVPB Q6H PRN PRN Reason: FEVER Albuterol/Ipratropium (Duoneb -) 1 amp NEB RQID [facility] Last Admin: 11/14/17 21:50 Dose: 1 amp Amino Acids (Prosource No Carb Liquid Pkt) 30 ml PO BID@0800,1730 [facility] Last Admin: 11/14/17 17:24 Dose: 30 ml Apixaban (Eliquis -) 5 mg PO BID [facility] Last Admin: 11/14/17 21:35 Dose: 5 mg Artificial Tears (Artificial Tears Ointment -) 1 applic OU [facility] Last Admin: 11/14/17 22:07 Dose: 1 applic Chlorhexidine Gluconate (Hibiclens For Decolonization -) 1 applic TP HS [facility] Last Admin: 11/14/17 21:36 Dose: 1 applic Piperacillin Sod/Tazobactam (Sod 3.375 gm/ Dextrose) 100 mls @ 200 mls/hr IVPB Q8H-IV SONAL PRN Reason: Protocol Last Admin: 11/15/17 03:02 Dose: 200 mls/hr Propofol (Diprivan -) 1,000,000 mcg in 100 mls @ 1.96 mls/hr IVPB TITR SONAL; 5 MCG/KG/MIN PRN Reason: Protocol Last Admin: 11/14/17 21:30 Dose: Not Given Insulin Aspart (Novolog Vial Sliding Scale -) 1 vial SQ ACHS [facility] PRN Reason: Protocol Last Admin: 11/15/17 06:12 Dose: 10 units Insulin Detemir (Levemir Vial) 4 units SQ HS [facility] Last Admin: 11/14/17 22:19 Dose: 4 units Metoprolol Tartrate (Lopressor Injection -) 5 mg IVPUSH Q4H PRN PRN Reason: HYPERTENSION Last Admin: 11/14/17 21:39 Dose: 5 mg Mupirocin (Bactroban Ointment (For Decolonization) -) 1 applic NS BID [facility] Stop: 11/18/17 21:59 Last Admin: 11/14/17 21:36 Dose: 1 applic Pantoprazole Sodium (Protonix Iv) 40 mg IVPUSH DAILY [facility] Last Admin: 11/14/17 12:00 Dose: 40 mg Prednisone (Deltasone -) 40 mg PO DAILY [facility] Last Admin: 11/14/17 16:58 Dose: Not Given Ranitidine HCl (Zantac -) 150 mg PO DAILY [facility] Last Admin: 11/14/17 16:58 Dose: Not Given Roflumilast (Daliresp -) 500 mcg NGT DAILY [facility] Last Admin: 11/14/17 16:58 Dose: Not Given Saliva Substitute (Mouthkote Solution -) 1 applic MM DAILY [facility] Last Admin: 11/14/17 09:00 Dose: 1 applic - Objective Vital Signs: Vital Signs Temperature 98.8 F 11/15/17 06:00 Pulse Rate 86 11/15/17 06:00 Respiratory Rate 26 H 11/15/17 06:00 Blood Pressure 124/67 11/15/17 06:00 O2 Sat by Pulse Oximetry (%) 96 11/14/17 22:24 Constitutional: Yes: Moderate Distress Neck: Yes: Other (Trach) Cardiovascular: Yes: S1, S2 Respiratory: Yes: WNL, Regular, CTA Bilaterally. No: Rhonchi Gastrointestinal: Yes: WNL, Normal Bowel Sounds, Soft. No: Tenderness Edema: No Labs: CBC, BMP 11/15/17 05:05 11/15/17 05:05 INR, PTT INR 1.02 (0.82-1.09) 11/09/17 05:50 Assessment/Plan Microbiology 10/19/17 19:30 Sputum - Expectorated Gram Stain - Final 10/19/17 19:30 Sputum - Expectorated Sputum Culture - Final NORMAL RESPIRATORY TOYIN 11/13/17 17:30 Blood - Peripheral Venous Blood Culture - Preliminary NO GROWTH OBTAINED AFTER 24 HOURS, INCUBATION TO CONTINUE FOR 4 DAYS. 11/13/17 17:10 Blood - Peripheral Venous Blood Culture - Preliminary NO GROWTH OBTAINED AFTER 24 HOURS, INCUBATION TO CONTINUE FOR 4 DAYS. Laboratory Tests 11/15/17 11/15/17 05:05 05:05 WBC 15.7 H RBC 2.86 L Hct 29.2 L Plt Count 247 Creatinine 2.2 H Creat Clearance w eGFR 30.38 Assessment Interstitial lung disease Respiratory failure with trach Unclear if any superimposed bacterial infection. Leukocytosis but on 40mg Prrednisone Plan Await sputum and urine culture for now while antibiotic continues Umer IVY
[2017-11-15 07:17] LABS: ARTERIAL BLD GAS O2 SATURATION 90.6 % (90-98.9); ARTERIAL BLOOD GAS BASE EXCESS 10.3 meq/l (-2-2); ARTERIAL BLOOD GAS PCO2 53.8 mmHg (35-45); ARTERIAL BLOOD GAS pH 7.44 (7.35-7.45)
[2017-11-15 07:20] LABS: ALLENS TEST POSITIVE
[2017-11-15] MEDS ORDERED: SODIUM CHLORIDE 0.45% 1,000 ML IV SCH (08:00)
[2017-11-15] MEDS: AMINO ACIDS/PROTEIN HYDROLYS 30 ML LIQUID.PKT PO SCH ×2 (08:00→17:09)
--- NOTE | 2017-11-15 08:11 | EKG ---
Test Reason : Blood Pressure : / mmHG Vent. Rate : 151 BPM Atrial Rate : 151 BPM P-R Int : 126 ms QRS Dur : 074 ms QT Int : 264 ms P-R-T Axes : 067 065 -89 degrees QTc Int : 418 ms SINUS TACHYCARDIA MARKED ST ABNORMALITY, POSSIBLE INFERIOR SUBENDOCARDIAL INJURY ABNORMAL ECG WHEN COMPARED WITH ECG OF 10-NOV-2017 11:18, ST NOW DEPRESSED IN INFERIOR LEADS T WAVE INVERSION MORE EVIDENT IN INFERIOR LEADS NONSPECIFIC T WAVE ABNORMALITY NOW EVIDENT IN ANTEROLATERAL LEADS Confirmed by NELY IVY, NICKY ([id number]) on 11/15/2017 8:11:41 AM Referred By: Confirmed By:NICKY MCKAY MD
[2017-11-15] MEDS: ALBUTEROL SO4 2.5/IPRATROPIUM 0.5 INH SOL 3 ML VIAL.NEB. NEB SCH ×4 (08:58→20:30)
[2017-11-15] MEDS ORDERED: ALPRAZolam 0.25 MG TABLET PO ONE (09:00)
--- NOTE | 2017-11-15 09:20 | PN ---
Physical Exam: SUBJECTIVE: Patient seen and examined. He is denying pain, palpitations, SOB. No overnight events reported by nurse. OBJECTIVE: Vital Signs Period Temp Pulse Resp BP Sys/Sutton Pulse Ox Last 24 Hr 97.8 F-99.1 F 74-133 18-32 95-144/60-81 93-99 GENERAL: The patient is awake, alert, and fully oriented, in moderate distress, lying in bed, cachectic. HEAD: Normal with no signs of trauma. EYES: extraocular movements intact, sclera anicteric, conjunctiva clear. ENT: Ears normal, nares patent, oropharynx clear without exudates, moist mucous membranes. NECK: Trachea midline, supple, tracheostomy tube. LUNGS: Breath sounds equal, coarse breath sounds bilaterally, no wheezes, no crackles, + accessory muscle use. HEART: Regular rate and rhythm, S1, S2 without murmur, rub or gallop. ABDOMEN: Soft, nontender, nondistended, normoactive bowel sounds, no guarding, no rebound, no hepatosplenomegaly, no masses. EXTREMITIES: 2+ pulses, warm, no edema. NEUROLOGICAL: Lethrgic, normal speech, gait not observed. PSYCH: Anxious SKIN: Warm, dry, no rashes or lesions noted. Laboratory Results - last 24 hr 11/14/17 11/14/17 11/14/17 05:15 05:15 10:15 WBC RBC Hgb Hct MCV MCH MCHC RDW Plt Count MPV PTT (Actin FS) Puncture Site ABG pH ABG pCO2 at Pt Temp ABG pO2 at Pt Temp ABG HCO3 ABG O2 Sat (Measured) ABG O2 Content ABG Base Excess Dionte Test Oxygen Flow Rate Vent Mode Vent Rate PEEP Pressure Support Vent Sodium 155 H Potassium 4.3 Chloride 109 H Carbon Dioxide 42 H Anion Gap 4 L BUN 74 H D Creatinine 2.0 H D Creat Clearance w eGFR Random Glucose 164 H D Serum Osmolality 358 H Lactic Acid 1.7 Calcium 8.6 Phosphorus 4.4 Magnesium 2.5 H Total Bilirubin AST ALT Alkaline Phosphatase Total Protein Albumin Urine Color Urine Appearance Urine pH Ur Specific [place] Urine Protein Urine Glucose (UA) Urine Ketones Urine Blood Urine Nitrite Urine Bilirubin Urine Urobilinogen Ur Leukocyte Esterase Urine WBC (Auto) Urine RBC (Auto) Ur Epithelial Cells Hyaline Casts Urine Mucus Urine Yeast Urine Osmolality Ur Random Sodium Ur Random Potassium Ur Random Chloride Urine Creatinine 11/14/17 11/14/17 11/14/17 14:30 14:30 14:30 WBC RBC Hgb Hct MCV MCH MCHC RDW Plt Count MPV PTT (Actin FS) Puncture Site ABG pH ABG pCO2 at Pt Temp ABG pO2 at Pt Temp ABG HCO3 ABG O2 Sat (Measured) ABG O2 Content ABG Base Excess Dionte Test Oxygen Flow Rate Vent Mode Vent Rate PEEP Pressure Support Vent Sodium Potassium Chloride Carbon Dioxide Anion Gap BUN Creatinine Creat Clearance w eGFR Random Glucose Serum Osmolality Lactic Acid Calcium Phosphorus Magnesium Total Bilirubin AST ALT Alkaline Phosphatase Total Protein Albumin Urine Color Yellow Urine Appearance Turbid Urine pH 5.0 Ur Specific [place] 1.023 Urine Protein 2+ H Urine Glucose (UA) Negative Urine Ketones Negative Urine Blood 1+ H Urine Nitrite Negative Urine Bilirubin Negative Urine Urobilinogen Negative Ur Leukocyte Esterase 1+ H Urine WBC (Auto) 21 Urine RBC (Auto) 161 Ur Epithelial Cells Few Hyaline Casts 27 Urine Mucus Rare Urine Yeast Many Urine Osmolality 652 Ur Random Sodium 22 Ur Random Potassium 29.8 Ur Random Chloride < 10 Urine Creatinine 11/14/17 11/15/17 11/15/17 14:30 05:05 05:05 WBC 15.7 H RBC 2.86 L Hgb 9.1 L Hct 29.2 L MCV 101.9 H MCH 31.9 MCHC 31.3 L RDW 17.4 H Plt Count 247 MPV 11.3 H PTT (Actin FS) 31.3 Puncture Site ABG pH ABG pCO2 at Pt Temp ABG pO2 at Pt Temp ABG HCO3 ABG O2 Sat (Measured) ABG O2 Content ABG Base Excess Dionte Test Oxygen Flow Rate Vent Mode Vent Rate PEEP Pressure Support Vent Sodium Potassium Chloride Carbon Dioxide Anion Gap BUN Creatinine Creat Clearance w eGFR Random Glucose Serum Osmolality Lactic Acid Calcium Phosphorus Magnesium Total Bilirubin AST ALT Alkaline Phosphatase Total Protein Albumin Urine Color Urine Appearance Urine pH Ur Specific [place] Urine Protein Urine Glucose (UA) Urine Ketones Urine Blood Urine Nitrite Urine Bilirubin Urine Urobilinogen Ur Leukocyte Esterase Urine WBC (Auto) Urine RBC (Auto) Ur Epithelial Cells Hyaline Casts Urine Mucus Urine Yeast Urine Osmolality Ur Random Sodium Ur Random Potassium Ur Random Chloride Urine Creatinine 97.1 11/15/17 11/15/17 05:05 06:55 WBC RBC Hgb Hct MCV MCH MCHC RDW Plt Count MPV PTT (Actin FS) Puncture Site Right radial ABG pH 7.44 ABG pCO2 at Pt Temp 53.8 H D ABG pO2 at Pt Temp 66.0 L D ABG HCO3 35.6 H ABG O2 Sat (Measured) 90.6 ABG O2 Content 11.9 L ABG Base Excess 10.3 H Dionte Test Positive Oxygen Flow Rate 60% Vent Mode A/c Vent Rate 18 PEEP 8.0 Pressure Support Vent 400 Sodium 150 H Potassium 4.0 Chloride 104 Carbon Dioxide 37 H Anion Gap 9 BUN 87 H Creatinine 2.2 H Creat Clearance w eGFR 30.38 Random Glucose 361 H* D Serum Osmolality Lactic Acid Calcium 8.9 Phosphorus 4.1 Magnesium 2.5 H Total Bilirubin 0.7 D AST 10 L D ALT 12 Alkaline Phosphatase 96 Total Protein 7.8 Albumin 2.3 L Urine Color Urine Appearance Urine pH Ur Specific [place] Urine Protein Urine Glucose (UA) Urine Ketones Urine Blood Urine Nitrite Urine Bilirubin Urine Urobilinogen Ur Leukocyte Esterase Urine WBC (Auto) Urine RBC (Auto) Ur Epithelial Cells Hyaline Casts Urine Mucus Urine Yeast Urine Osmolality Ur Random Sodium Ur Random Potassium Ur Random Chloride Urine Creatinine Active Medications Generic Name Dose Route Start Last Admin Trade Name Freq PRN Reason Stop Dose Admin Acetaminophen 650 mg 11/13/17 19:10 Tylenol - PO Q6H PRN FEVER Acetaminophen 1,000 mg 11/13/17 19:10 Ofirmev Injection - IVPB Q6H PRN FEVER Albuterol/Ipratropium 1 amp 11/13/17 20:00 11/15/17 08:58 Duoneb - NEB 1 amp RQID SONAL Administration Amino Acids 30 ml 11/14/17 17:30 11/14/17 17:24 Prosource No Carb Liquid Pkt PO 30 ml BID@0800,1730 SONAL Administration Apixaban 5 mg 11/13/17 22:00 11/14/17 21:35 Eliquis - PO 5 mg BID SONAL Administration Artificial Tears 1 applic 11/13/17 22:00 11/14/17 22:07 Artificial Tears Ointment - OU 1 applic HS SONAL Administration Chlorhexidine Gluconate 1 applic 11/13/17 22:00 11/14/17 21:36 Hibiclens For Decolonization - TP 1 applic HS SONAL Administration Piperacillin Sod/Tazobactam 100 mls @ 200 mls/hr 11/13/17 18:00 11/15/17 03: 02 Sod 3.375 gm/ Dextrose IVPB 200 mls/hr Q8H-IV SONAL Administration Protocol Propofol 1,000,000 mcg in 100 mls @ 1.96 mls/hr 11/13/17 19:30 11/14/17 21:30 Diprivan - IVPB Not Given TITR SONAL Protocol 5 MCG/KG/MIN Insulin Aspart 1 vial 11/13/17 22:00 11/15/17 06:12 Novolog Vial Sliding Scale - SQ 10 units ACHS SONAL Administration Protocol Insulin Detemir 4 units 11/14/17 22:00 11/14/17 22:19 Levemir Vial SQ 4 units HS SONAL Administration Metoprolol Tartrate 5 mg 11/13/17 19:10 11/14/17 21:39 Lopressor Injection - IVPUSH 5 mg Q4H PRN Administration HYPERTENSION Mupirocin 1 applic 11/13/17 22:00 11/14/17 21:36 Bactroban Ointment (For Decolonization) - NS 11/18/17 21:59 1 applic BID SONAL Administration Pantoprazole Sodium 40 mg 11/14/17 12:00 11/14/17 12:00 Protonix Iv IVPUSH 40 mg DAILY SONAL Administration Prednisone 40 mg 11/14/17 10:00 11/14/17 16:58 Deltasone - PO Not Given DAILY SONAL Ranitidine HCl 150 mg 11/14/17 10:00 11/14/17 16:58 Zantac - PO Not Given DAILY SONAL Roflumilast 500 mcg 11/14/17 10:00 11/14/17 16:58 Daliresp - NGT Not Given DAILY SONAL Saliva Substitute 1 applic 11/14/17 10:00 11/14/17 09:00 Mouthkote Solution - MM 1 applic DAILY SONAL Administration CXR 15/11/17; no change from yesterday ASSESSMENT/PLAN: Patient is a 62 year old male with PMH of NIDDM, BPH, smoker who was BIBEMS for hypoxic respiratory failure secondary to severe sepsis due to PNA, right lower extremity DVT, s/p IVC filter, catheter directed thrombectomy diagnosed with ILD /pneiumonitis readmitted to ICU for tachycardia, tachypnea and AMS. Neuro: alert and oriented x 3 Anxiety -Propofol drip held yesterday, Xanax 0.25 mg one dose given today -will cont Seroquel 25 mg HS tonight CV: Septic Shock-resolved DVT: U/S positive for Right calf DVT, s/p thrombectomy -continue Eliquis Pulm: Acute Hypoxic Respiratory Failure due to diffuse interstitial lung disease. -Patient currenty has a tracheostomy tube, reapplied yesterday by dr Rosaroi for leak. Currently tube size 7. - Continue Prednisone 40 daily, no recommendations to in creased dose - FiO2 increased to 80 in AM due to hypoxia based on Oxyg. Sat. 83% then decreased to 70, on CPAP, tolerating well - Continue scheduled duonebs. - Continue daliresp ID: Completed Azithromycin and Ceftriaxone for suspected CAP. -All cultures neg and ID tests neg including cryptococcal Possible aspiration pneumonia; -continue Zosyn -CXR not changed today -cont to follow ID recommendations -waiting for sputum cultures and urine cultures, Flu swab ordered today is neg. Renal: MIRLANDE -UA, electrolytes, osmolarity ordered, Fena calculated suggested prerenal -increased free water with tube feedings to 300 ml Q4H to decrease water deficit -will monitor electrolytes, changed to 1/2 NS from D5 -renal US-no acute pathology, no hydronephrosis, obstruction -will f/u renal recommendations -avoid nephrotoxic medications Endo NIDDM: -glu 361 this morning, covered with ISS -cont Levemir 5 u BID -Will continue to monitor BGM : BPH -Patient on Tamsulosin 0.4mg daily GI: Peptic Ulcer Disease: History of mesh according to family and had Endoscopy. - on PPI, stable FEN -no fluids -Electrolytes repleated as needed. -Continue PEG tube feeds PPX: - Eliquis - Protonix Disposition: Continue ICU monitoring. Discussed with his daughter at bedside. Problem List - Problems (1) Acute respiratory failure with hypoxia Code(s): J96.01 - ACUTE RESPIRATORY FAILURE WITH HYPOXIA (2) Diabetes Code(s): E11.9 - TYPE 2 DIABETES MELLITUS WITHOUT COMPLICATIONS (3) Pneumonia Code(s): J18.9 - PNEUMONIA, UNSPECIFIED ORGANISM (4) Respiratory distress Code(s): R06.03 - ACUTE RESPIRATORY DISTRESS (5) Low back strain Code(s): S39.012A - STRAIN OF MUSCLE, FASCIA AND TENDON OF LOWER BACK, INIT Visit type - Emergency Visit Emergency Visit: Yes ED Registration Date: 10/17/17 Care time: The patient presented to the Emergency Department on the above date and was hospitalized for further evaluation of their emergent condition. - New Patient This patient is new to me today: No - Critical Care Critical Care patient: Yes Total Critical Care Time (in minutes): 40 Critical Care Statement: The care of this patient involved high complexity decision making to prevent further life threatening deterioration of the patient 's condition and/or to evaluate & treat vital organ system(s) failure or risk of failure.
[2017-11-15] MEDS ORDERED: PT OWN MED DRAWER 7, Y5N ONE ×2 (10:18→16:59)
[2017-11-15] MEDS: ROFLUMILAST 500 MCG TABLET NGT SCH (10:46)
[2017-11-15] MEDS: RANITIDINE HCL 150 MG TABLET (FP) PO SCH (10:46)
[2017-11-15] MEDS: predniSONE 20 MG TABLET (UD) PO SCH (10:46)
[2017-11-15] MEDS: MUPIROCIN 2% TOPICAL OINTMENT FOR DECOLONIZATION NS SCH ×2 (10:47→21:20)
[2017-11-15] MEDS: LYTES/YERBA SANTA 240 ML BOTTLE MM SCH (10:47)
[2017-11-15] MEDS: PANTOPRAZOLE SODIUM 40 MG VIAL IVPUSH SCH (10:50)
[2017-11-15] MEDS: APIXABAN 5 MG TABLET PO SCH ×2 (10:50→21:26)
--- NOTE | 2017-11-15 11:26 | PN ---
Teaching Attending Note Name of Resident: eGni Martinez ATTENDING PHYSICIAN STATEMENT I saw and evaluated the patient. I reviewed the resident's note and discussed the case with the resident. I agree with the resident's findings and plan as documented. SUBJECTIVE: Pt seen and examined in the ICU. No further cuff issues/leak since trach change. Pt states breathing is stable. Desaturated on FiO2 60% so now on 80% FiO2. OBJECTIVE: Last Vital Signs Temp Pulse Resp BP Pulse Ox 98.2 F 122 H 18 114/73 93 L 11/15/17 10:00 11/15/17 10:00 11/15/17 11:15 11/15/17 10:00 11/15/17 08:57 Intake & Output 11/12/17 11/13/17 11/14/17 11/15/17 23:59 23:59 23:59 23:59 Intake Total 325 2266.8 1640 Output Total 900 300 700 300 Balance -575 -300 1566.8 1340 Weight 66.179 kg 64.501 kg 40.9 kg 44.594 kg Gen: vented, awake, tachypneic, cachectic Heart: tachycardic, regular Lung: scattered rales Abd: soft, nontender Ext: no edema CBC, BMP 11/15/17 05:05 11/15/17 05:05 Active Medications Acetaminophen (Tylenol -) 650 mg PO Q6H PRN PRN Reason: FEVER Acetaminophen (Ofirmev Injection -) 1,000 mg IVPB Q6H PRN PRN Reason: FEVER Albuterol/Ipratropium (Duoneb -) 1 amp NEB RQID [facility] Last Admin: 11/15/17 08:58 Dose: 1 amp Amino Acids (Prosource No Carb Liquid Pkt) 30 ml PO BID@0800,1730 [facility] Last Admin: 11/15/17 08:00 Dose: 30 ml Apixaban (Eliquis -) 5 mg PO BID [facility] Last Admin: 11/15/17 10:50 Dose: 5 mg Artificial Tears (Artificial Tears Ointment -) 1 applic OU HS [facility] Last Admin: 11/14/17 22:07 Dose: 1 applic Chlorhexidine Gluconate (Hibiclens For Decolonization -) 1 applic TP HS [facility] Last Admin: 11/14/17 21:36 Dose: 1 applic Piperacillin Sod/Tazobactam (Sod 3.375 gm/ Dextrose) 100 mls @ 200 mls/hr IVPB Q8H-IV SONAL PRN Reason: Protocol Last Admin: 11/15/17 10:50 Dose: 200 mls/hr Propofol (Diprivan -) 1,000,000 mcg in 100 mls @ 1.96 mls/hr IVPB TITR SONAL; 5 MCG/KG/MIN PRN Reason: Protocol Last Admin: 11/14/17 21:30 Dose: Not Given Insulin Aspart (Novolog Vial Sliding Scale -) 1 vial SQ ACHS SONAL PRN Reason: Protocol Last Admin: 11/15/17 06:12 Dose: 10 units Insulin Detemir (Levemir Vial) 4 units SQ HS [facility] Last Admin: 11/14/17 22:19 Dose: 4 units Metoprolol Tartrate (Lopressor Injection -) 5 mg IVPUSH Q4H PRN PRN Reason: HYPERTENSION Last Admin: 11/14/17 21:39 Dose: 5 mg Mupirocin (Bactroban Ointment (For Decolonization) -) 1 applic NS BID [facility] Stop: 11/18/17 21:59 Last Admin: 11/15/17 10:47 Dose: 1 applic Pantoprazole Sodium (Protonix Iv) 40 mg IVPUSH DAILY [facility] Last Admin: 11/15/17 10:50 Dose: 40 mg Prednisone (Deltasone -) 40 mg PO DAILY [facility] Last Admin: 11/15/17 10:46 Dose: 40 mg Quetiapine Fumarate (Seroquel -) 25 mg PO HS [facility] Ranitidine HCl (Zantac -) 150 mg PO DAILY [facility] Last Admin: 11/15/17 10:46 Dose: 150 mg Roflumilast (Daliresp -) 500 mcg NGT DAILY [facility] Last Admin: 11/15/17 10:46 Dose: 500 mcg Saliva Substitute (Mouthkote Solution -) 1 applic MM DAILY [facility] Last Admin: 11/15/17 10:47 Dose: 1 applic ASSESSMENT AND PLAN: Acute Hypoxic Respiratory Failure s/p Tracheostomy Pneumonia Sepsis Interstitial Lung Disease Acute Diastolic Heart Failure improved Acute Kidney Injury Lactic Acidosis resolved DM RLE DVT - continue empiric antibiotics - f/u pending cultures - IVF - monitor urine output, creatinine - increase free water - continue prednisone - anxiolytics, seroquel qHS - enteral feeds - continue anticoagulation - swallow eval for possible PO intake when airway issues resolved - taper FiO2 to keep SpO2 >90% - spontaneous breathing trials as tolerated - DVT/GI prophylaxis - continue ICU monitoring for now critical care time spent in reviewing chart, evaluating patient and formulating plan 35 min Problem List - Problems (1) Acute respiratory failure with hypoxia Code(s): J96.01 - ACUTE RESPIRATORY FAILURE WITH HYPOXIA (2) Pneumonia Code(s): J18.9 - PNEUMONIA, UNSPECIFIED ORGANISM (3) Diabetes Code(s): E11.9 - TYPE 2 DIABETES MELLITUS WITHOUT COMPLICATIONS
[2017-11-15] MEDS ORDERED: HEMOQUE TEST 1 EACH EACH ONE (11:53)
--- NOTE | 2017-11-15 12:52 | PN ---
Progress Note, Physician History of Present Illness: Pt seen and examined at bedside. He is awake and appears comfortable. He desaturated this morning. - Current Medication List Current Medications: Active Medications Acetaminophen (Tylenol -) 650 mg PO Q6H PRN PRN Reason: FEVER Acetaminophen (Ofirmev Injection -) 1,000 mg IVPB Q6H PRN PRN Reason: FEVER Albuterol/Ipratropium (Duoneb -) 1 amp NEB RQID [facility] Last Admin: 11/15/17 11:31 Dose: 1 amp Amino Acids (Prosource No Carb Liquid Pkt) 30 ml PO BID@0800,1730 [facility] Last Admin: 11/15/17 08:00 Dose: 30 ml Apixaban (Eliquis -) 5 mg PO BID [facility] Last Admin: 11/15/17 10:50 Dose: 5 mg Artificial Tears (Artificial Tears Ointment -) 1 applic OU HS [facility] Last Admin: 11/14/17 22:07 Dose: 1 applic Chlorhexidine Gluconate (Hibiclens For Decolonization -) 1 applic TP HS [facility] Last Admin: 11/14/17 21:36 Dose: 1 applic Piperacillin Sod/Tazobactam (Sod 3.375 gm/ Dextrose) 100 mls @ 200 mls/hr IVPB Q8H-IV SONAL PRN Reason: Protocol Last Admin: 11/15/17 10:50 Dose: 200 mls/hr Propofol (Diprivan -) 1,000,000 mcg in 100 mls @ 1.96 mls/hr IVPB TITR SONAL; 5 MCG/KG/MIN PRN Reason: Protocol Last Admin: 11/14/17 21:30 Dose: Not Given Insulin Aspart (Novolog Vial Sliding Scale -) 1 vial SQ ACHS SONAL PRN Reason: Protocol Last Admin: 11/15/17 06:12 Dose: 10 units Insulin Detemir (Levemir Vial) 4 units SQ HS [facility] Last Admin: 11/14/17 22:19 Dose: 4 units Metoprolol Tartrate (Lopressor Injection -) 5 mg IVPUSH Q4H PRN PRN Reason: HYPERTENSION Last Admin: 11/14/17 21:39 Dose: 5 mg Mupirocin (Bactroban Ointment (For Decolonization) -) 1 applic NS BID [facility] Stop: 11/18/17 21:59 Last Admin: 11/15/17 10:47 Dose: 1 applic Pantoprazole Sodium (Protonix Iv) 40 mg IVPUSH DAILY [facility] Last Admin: 11/15/17 10:50 Dose: 40 mg Prednisone (Deltasone -) 40 mg PO DAILY [facility] Last Admin: 11/15/17 10:46 Dose: 40 mg Quetiapine Fumarate (Seroquel -) 25 mg PO [facility] Ranitidine HCl (Zantac -) 150 mg PO DAILY [facility] Last Admin: 11/15/17 10:46 Dose: 150 mg Roflumilast (Daliresp -) 500 mcg NGT DAILY [facility] Last Admin: 11/15/17 10:46 Dose: 500 mcg Saliva Substitute (Mouthkote Solution -) 1 applic MM DAILY [facility] Last Admin: 11/15/17 10:47 Dose: 1 applic - Objective Vital Signs: Vital Signs Temperature 98.2 F 11/15/17 10:00 Pulse Rate 122 H 11/15/17 10:00 Respiratory Rate 30 H 11/15/17 11:34 Blood Pressure 114/73 11/15/17 10:00 O2 Sat by Pulse Oximetry (%) 93 L 11/15/17 08:57 Constitutional: Yes: Calm Eyes: Yes: Conjunctiva Clear Neck: Yes: Other (trache) Respiratory: Yes: Mechanically Ventilated Gastrointestinal: Yes: Soft, Other (peg) Genitourinary: Yes: Other (external catheter) Musculoskeletal: Yes: Muscle Weakness Edema: No Neurological: Yes: Oriented Labs: CBC, BMP 11/15/17 05:05 11/15/17 05:05 INR, PTT INR 1.02 (0.82-1.09) 11/09/17 05:50 - ....Imaging Chest X-ray: Report Reviewed Problem List - Problems (1) Hypernatremia Code(s): E87.0 - HYPEROSMOLALITY AND HYPERNATREMIA (2) MIRLANDE (acute kidney injury) Code(s): N17.9 - ACUTE KIDNEY FAILURE, UNSPECIFIED (3) Acute respiratory failure with hypoxia Code(s): J96.01 - ACUTE RESPIRATORY FAILURE WITH HYPOXIA (4) Diabetes Code(s): E11.9 - TYPE 2 DIABETES MELLITUS WITHOUT COMPLICATIONS (5) Failure to thrive Code(s): [id number] - Assessment/Plan Current Medications Generic Name Dose Route Start Last Admin Trade Name Ivan PRN Reason Stop Dose Admin Acetaminophen 650 mg 11/13/17 19:10 Tylenol - PO Q6H PRN FEVER Acetaminophen 1,000 mg 11/13/17 19:10 Ofirmev Injection - IVPB Q6H PRN FEVER Albuterol/Ipratropium 1 amp 11/13/17 20:00 11/15/17 11:31 Duoneb - NEB 1 amp RQID SONAL Administration Amino Acids 30 ml 11/14/17 17:30 11/15/17 08:00 Prosource No Carb Liquid Pkt PO 30 ml BID@0800,1730 SONAL Administration Apixaban 5 mg 11/13/17 22:00 11/15/17 10:50 Eliquis - PO 5 mg BID SONAL Administration Artificial Tears 1 applic 11/13/17 22:00 11/14/17 22:07 Artificial Tears Ointment - OU 1 applic HS SONAL Administration Chlorhexidine Gluconate 1 applic 11/13/17 22:00 11/14/17 21:36 Hibiclens For Decolonization - TP 1 applic HS SONAL Administration Piperacillin Sod/Tazobactam 100 mls @ 200 mls/hr 11/13/17 18:00 11/15/17 10: 50 Sod 3.375 gm/ Dextrose IVPB 200 mls/hr Q8H-IV SONAL Administration Protocol Propofol 1,000,000 mcg in 100 mls @ 1.96 mls/hr 11/13/17 19:30 11/14/17 21:30 Diprivan - IVPB Not Given TITR SONAL Protocol 5 MCG/KG/MIN Insulin Aspart 1 vial 11/13/17 22:00 11/15/17 06:12 Novolog Vial Sliding Scale - SQ 10 units ACHS SONAL Administration Protocol Insulin Detemir 4 units 11/14/17 22:00 11/14/17 22:19 Levemir Vial SQ 4 units HS SONAL Administration Metoprolol Tartrate 5 mg 11/13/17 19:10 11/14/17 21:39 Lopressor Injection - IVPUSH 5 mg Q4H PRN Administration HYPERTENSION Mupirocin 1 applic 11/13/17 22:00 11/15/17 10:47 Bactroban Ointment (For Decolonization) - NS 11/18/17 21:59 1 applic BID SONAL Administration Pantoprazole Sodium 40 mg 11/14/17 12:00 11/15/17 10:50 Protonix Iv IVPUSH 40 mg DAILY SONAL Administration Prednisone 40 mg 11/14/17 10:00 11/15/17 10:46 Deltasone - PO 40 mg DAILY SONAL Administration Quetiapine Fumarate 25 mg 11/15/17 22:00 Seroquel - PO HS SONAL Ranitidine HCl 150 mg 11/14/17 10:00 11/15/17 10:46 Zantac - PO 150 mg DAILY SONAL Administration Roflumilast 500 mcg 11/14/17 10:00 11/15/17 10:46 Daliresp - NGT 500 mcg DAILY SONAL Administration Saliva Substitute 1 applic 11/14/17 10:00 11/15/17 10:47 Mouthkote Solution - MM 1 applic DAILY SONAL Administration Impression 1. MIRLANDE 2. hypernatremia 3. chronic resp failure s/p trache 4. s/p trache 5. s/p peg 6. sepsis 7. interstitial lung disease 8. chf diastolic 9. DM 10. lactic acidosis 11. PNA Plan - sodium is improving - cont free water with feeds - can change fluids from d5 to 1/2 ns as his glucose is elevated - renal function worse, will continue to trend - discussed with primary team - discussed with pts mua - cont ICU care Dr Gan
[2017-11-15] MEDS ORDERED: INSULIN (NOVOLOG) ASPART 100 UNITS/ML 10ML VIAL ONE (15:18)
[2017-11-15] MEDS: SODIUM CHLORIDE 0.45% 1,000 ML IV SCH (16:00)
[2017-11-15] MEDS: PIPERACILLIN/TAZOB 2.25 GM 2.25 GM/50 ML BAG IVPB SCH (17:09)
--- NOTE | 2017-11-15 18:23 | PN ---
Teaching Attending Note Name of Resident: Dylon Reeves ATTENDING PHYSICIAN STATEMENT Time of evaluation: 9:00 AM I saw and evaluated the patient. I reviewed the resident's note and discussed the case with the resident. I agree with the resident's findings and plan as documented. SUBJECTIVE: patient seen and examined, on vent, looks anxious, overall feels the same. OBJECTIVE: Vital Signs Period Temp Pulse Resp BP Sys/Sutton Pulse Ox Last 24 Hr 98.2 F-99.1 F 86-133 18-35 98-144/63-81 93-96 Intake & Output 11/12/17 11/13/17 11/14/17 11/15/17 23:59 23:59 23:59 23:59 Intake Total 325 2266.8 1640 Output Total 900 300 700 600 Balance -575 -300 1566.8 1040 Weight 145 lb 14.4 oz 142 lb 3.2 oz 90 lb 2.705 oz 98 lb 5 oz general: cachectic male, tachypneic, anxious, tachycardic in bed CVS;S1S2 regular, tachycardic Abdomen: soft, scaphoid, mesh palpated, NT extremities: no edema Chest: final bibasilar rales Home Medication List Medication Instructions Recorded Confirmed Type Glipizide [Glucotrol Xl] 0 mg PO ASDIR 10/17/17 10/17/17 History Metformin HCl 0 mg PO ASDIR 10/17/17 10/17/17 History Tamsulosin HCl 0.4 mg PO DAILY 10/17/17 10/17/17 History Active Medications Generic Name Dose Route Start Last Admin Trade Name Freq PRN Reason Stop Dose Admin Acetaminophen 650 mg 11/13/17 19:10 Tylenol - PO Q6H PRN FEVER Acetaminophen 1,000 mg 11/13/17 19:10 Ofirmev Injection - IVPB Q6H PRN FEVER Albuterol/Ipratropium 1 amp 11/13/17 20:00 11/15/17 16:01 Duoneb - NEB 1 amp RQID SONAL Administration Amino Acids 30 ml 11/14/17 17:30 11/15/17 17:09 Prosource No Carb Liquid Pkt PO 30 ml BID@0800,1730 SONAL Administration Apixaban 5 mg 11/13/17 22:00 11/15/17 10:50 Eliquis - PO 5 mg BID SONAL Administration Artificial Tears 1 applic 11/13/17 22:00 11/14/17 22:07 Artificial Tears Ointment - OU 1 applic HS SONAL Administration Chlorhexidine Gluconate 1 applic 11/13/17 22:00 11/14/17 21:36 Hibiclens For Decolonization - TP 1 applic HS SONAL Administration Propofol 1,000,000 mcg in 100 mls @ 1.96 mls/hr 11/13/17 19:30 11/14/17 21:30 Diprivan - IVPB Not Given TITR SONAL Protocol 5 MCG/KG/MIN Sodium Chloride 1,000 mls @ 42 mls/hr 11/15/17 13:15 11/15/17 16:00 1/2 Normal Saline IV 42 mls/hr ASDIR SONAL Administration Piperacillin/Tazobactam/Dextrose 2.25 gm in 50 mls @ 100 mls/hr 11/15/17 18: 00 11/15/17 17:09 Zosyn 2.25gm Ivpb (Premix) IVPB 100 mls/hr Q8H-IV SONAL Administration Protocol Insulin Aspart 1 vial 11/13/17 22:00 11/15/17 17:17 Novolog Vial Sliding Scale - SQ 10 units ACHS SONAL Administration Protocol Insulin Detemir 5 units 11/15/17 22:00 Levemir Vial SQ BID@0700,2200 SONAL Metoprolol Tartrate 5 mg 11/13/17 19:10 11/14/17 21:39 Lopressor Injection - IVPUSH 5 mg Q4H PRN Administration HYPERTENSION Mupirocin 1 applic 11/13/17 22:00 11/15/17 10:47 Bactroban Ointment (For Decolonization) - NS 11/18/17 21:59 1 applic BID SONAL Administration Pantoprazole Sodium 40 mg 11/14/17 12:00 11/15/17 10:50 Protonix Iv IVPUSH 40 mg DAILY SONAL Administration Prednisone 40 mg 11/14/17 10:00 11/15/17 10:46 Deltasone - PO 40 mg DAILY SONAL Administration Quetiapine Fumarate 25 mg 11/15/17 22:00 Seroquel - PO HS SONAL Ranitidine HCl 150 mg 11/14/17 10:00 11/15/17 10:46 Zantac - PO 150 mg DAILY SONAL Administration Roflumilast 500 mcg 11/14/17 10:00 11/15/17 10:46 Daliresp - NGT 500 mcg DAILY SONAL Administration Saliva Substitute 1 applic 11/14/17 10:00 11/15/17 10:47 Mouthkote Solution - MM 1 applic DAILY SONAL Administration Laboratory Results - last 24 hr 11/14/17 11/14/17 11/14/17 05:15 14:30 17:30 WBC RBC Hgb Hct MCV MCH MCHC RDW Plt Count MPV PTT (Actin FS) Puncture Site ABG pH ABG pCO2 at Pt Temp ABG pO2 at Pt Temp ABG HCO3 ABG O2 Sat (Measured) ABG O2 Content ABG Base Excess Dionte Test Oxygen Flow Rate Vent Mode Vent Rate PEEP Pressure Support Vent Sodium Potassium Chloride Carbon Dioxide Anion Gap BUN Creatinine Creat Clearance w eGFR POC Glucometer [phone] Random Glucose Serum Osmolality 358 H Calcium Phosphorus Magnesium Total Bilirubin AST ALT Alkaline Phosphatase Total Protein Albumin Urine Osmolality 652 11/14/17 11/15/17 11/15/17 22:00 05:05 05:05 WBC 15.7 H RBC 2.86 L Hgb 9.1 L Hct 29.2 L MCV 101.9 H MCH 31.9 MCHC 31.3 L RDW 17.4 H Plt Count 247 MPV 11.3 H PTT (Actin FS) 31.3 Puncture Site ABG pH ABG pCO2 at Pt Temp ABG pO2 at Pt Temp ABG HCO3 ABG O2 Sat (Measured) ABG O2 Content ABG Base Excess Dionte Test Oxygen Flow Rate Vent Mode Vent Rate PEEP Pressure Support Vent Sodium Potassium Chloride Carbon Dioxide Anion Gap BUN Creatinine Creat Clearance w eGFR POC Glucometer [phone] Random Glucose Serum Osmolality Calcium Phosphorus Magnesium Total Bilirubin AST ALT Alkaline Phosphatase Total Protein Albumin Urine Osmolality 11/15/17 11/15/17 11/15/17 05:05 05:15 06:55 WBC RBC Hgb Hct MCV MCH MCHC RDW Plt Count MPV PTT (Actin FS) Puncture Site Right radial ABG pH 7.44 ABG pCO2 at Pt Temp 53.8 H D ABG pO2 at Pt Temp 66.0 L D ABG HCO3 35.6 H ABG O2 Sat (Measured) 90.6 ABG O2 Content 11.9 L ABG Base Excess 10.3 H Dionte Test Positive Oxygen Flow Rate 60% Vent Mode A/c Vent Rate 18 PEEP 8.0 Pressure Support Vent 400 Sodium 150 H Potassium 4.0 Chloride 104 Carbon Dioxide 37 H Anion Gap 9 BUN 87 H Creatinine 2.2 H Creat Clearance w eGFR 30.38 POC Glucometer > 400 Random Glucose 361 H* D Serum Osmolality Calcium 8.9 Phosphorus 4.1 Magnesium 2.5 H Total Bilirubin 0.7 D AST 10 L D ALT 12 Alkaline Phosphatase 96 Total Protein 7.8 Albumin 2.3 L Urine Osmolality 11/15/17 11:56 WBC RBC Hgb Hct MCV MCH MCHC RDW Plt Count MPV PTT (Actin FS) Puncture Site ABG pH ABG pCO2 at Pt Temp ABG pO2 at Pt Temp ABG HCO3 ABG O2 Sat (Measured) ABG O2 Content ABG Base Excess Dionte Test Oxygen Flow Rate Vent Mode Vent Rate PEEP Pressure Support Vent Sodium Potassium Chloride Carbon Dioxide Anion Gap BUN Creatinine Creat Clearance w eGFR POC Glucometer [phone] Random Glucose Serum Osmolality Calcium Phosphorus Magnesium Total Bilirubin AST ALT Alkaline Phosphatase Total Protein Albumin Urine Osmolality Microbiology 11/13/17 17:10 Blood - Peripheral Venous Blood Culture - Preliminary NO GROWTH OBTAINED AFTER 48 HOURS, INCUBATION TO CONTINUE FOR 3 DAYS. 11/15/17 11:00 Nasopharyngeal Swab Influenza Types A,B Antigen (CHUY) - Final 11/15/17 11:00 Nasopharyngeal Swab - Final 11/13/17 17:30 Blood - Peripheral Venous Blood Culture - Preliminary NO GROWTH OBTAINED AFTER 24 HOURS, INCUBATION TO CONTINUE FOR 4 DAYS. 10/21/17 06:00 Serum Cryptococcal Antigen - Final 10/19/17 19:30 Sputum - Expectorated Gram Stain - Final 10/19/17 19:30 Sputum - Expectorated Sputum Culture - Final NORMAL RESPIRATORY TOYIN 10/17/17 10:10 Blood - Peripheral Venous Blood Culture - Final NO GROWTH AFTER 5 DAYS INCUBATION 10/17/17 10:10 Blood - Peripheral Venous Blood Culture - Final NO GROWTH AFTER 5 DAYS INCUBATION 10/17/17 13:57 Urine - Urine Clean Catch Urine Culture - Final NO GROWTH OBTAINED 10/17/17 13:57 Urine For Antigen Detection Legionella Antigen - Final 10/17/17 13:57 Urine For Antigen Detection Streptococcus pneumoniae Antigen (M - Final 10/17/17 10:25 Nasopharyngeal Swab Influenza Types A,B Antigen (CHUY) - Final 10/17/17 10:25 Nasopharyngeal Swab - Final ASSESSMENT AND PLAN: 62 yo M active smoker, pMHx of NIDDM, PUD, BPH admitted with acute hypoxic respiratory failure, and extensive RLE DVT -Acute hypoxic respiratory failure, suspect from ?ILD with pneumonitis s/p intubation 11/03, trach 11/07, exchanged 11/11 for cuff, now recurrent worsening respiratory failure, suspected aspiration PNA with sepsis -Extensive RLE Acute DVT, s/p IVC filter 10/20, thrombectmy 10/24 - Acute diastolic heart failure -Sepsis on admission, likely from PNA, now recurrent concerns for aspiration PNA -Lactic acidosis, from sepsis vs increased work of breathing, resolved -MIRLANDE on admission from sepsis, now recurrent, ?Sepsis, vs ATN vs r/o obstructive process -Hypernatremia -Thrombocytopenia -Elevated INR -Chest wall and right sided abdominal pain -NIDDM -PUD -BPH -Cachexia/malnutrition Plan: Worsening respiratory status, back in ICU. Tachypneic,tachycardic and hypoxic to 83 on 60% FiO2 when seen this AM, FiOs increased to 100 with improved oxygenation to 96%. Trach cuff leak, s/p extended trach placed 11/14 with no further leak. CXR no new infiltrate but ?Aspiration PNA vs pneumonitis. ID input appreciated. zosyn resumed day 3 (prior s/p 7 days of ceftriaxone/azithromycin). Sputum/ blood cultures, Flu swab neg. Continue prednisone. ?ILD with pneumonitis, unclear etiology, on Eliquis, hold for procedure as indicated. Renal ultrasound/nephrology input/Urine lytes neg. Suspect hypovolumia. INcrease free water flushes to 300ml q4h. Change D5w to 1/2 NS given hyperglycemic, watch out for fluid overload. s/p PEG 11/09, resume tube feeds. Follow up speech/swallow eval. Intermittent agitation, 2 point restraints as pulls at the vent. Placed on seroquel by ICU as anxious and breathing over the vent. Platelets improved. replete lytes prn. Ac 7.4, ISS, hold oral hypoglycemics. Levemir resumed, increase to 5 units BID as feeds started. Continue flomax. Nicotine patch MICU monitoring. PLan discussed with daughter at bedside. Total critical care time spent in ICU 35 min.
[2017-11-15] MEDS: CHLORHEXIDINE GLUCONATE 4% CLEANSER FOR DECOLONIZATION TP SCH (21:20)
[2017-11-15] MEDS: PROPOFOL 1,000,000 MCG/100 ML VIAL IVPB SCH (21:20)
[2017-11-15] MEDS: QUEtiapine FUMARATE 25 MG TABLET (FP) PO SCH (21:26)
[2017-11-15] MEDS: INSULIN DETEMIR 100 UNITS/ML MDV SQ SCH (21:26)
[2017-11-15] MEDS: MINERAL OIL/PETROLATUM,WHITE 3.5 GM TUBE OU SCH (21:32)
[2017-11-16] MEDS: PIPERACILLIN/TAZOB 2.25 GM 2.25 GM/50 ML BAG IVPB SCH ×3 (02:39→18:14)
--- NOTE | 2017-11-16 05:59 | PN ---
Physical Exam: SUBJECTIVE: Patient seen and examined - No major overnight events. Pt less agitated this AM. No complaints except for mild tenderness in wrists BL. Satting 93-94% on 60% FIO2. less tachy today. Denies f/c, COLLINS, CP, n/v, abdominal pain, LE edema. Still with mild cough. -Rested well overnight. Tolerating feeds. Remains vented w/ trach. off restraints overnight, no longer pulling at trach or lines. OBJECTIVE: Vital Signs Intake & Output 11/13/17 11/14/17 11/15/17 11/16/17 23:59 23:59 23:59 23:59 Intake Total 2266.8 1640 2114 Output Total 300 700 700 200 Balance -300 1566.8 940 1914 Weight 64.501 kg 40.9 kg 44.594 kg Period Temp Pulse Resp BP Sys/Sutton Pulse Ox Last 24 Hr 97.4 F-98.8 F 86-133 18-35 114-142/57-81 93-95 GENERAL: Cachectic man laying in bed, sedated, eyes fixed open in NAD. Vented, trach HEAD: Normal with no signs of trauma. Bitemporal wasting EYES: Eye open, fixed. sclera anicteric, conjunctiva clear. No ptosis. ENT: Ears normal, nares patent, oropharynx clear without exudates, trace secretions noted in oropharynx. NECK: Trach collar in place, serosanguinous secretion noted around trach, no significant erythema or purulence. Trachea midline, supple. No JVD noted. LUNGS: Coarse breath sounds. Diffuse crackles BL. No wheezes, no accessory muscle use HEART: still with 2/6 systolic ejection murmur at LUSB. Regular rate and rhythm , S1, S2 without murmur, rub or gallop. ABDOMEN: PEG tube in place, no erythema, drainage or purulence. Scaphoid abdomen , hypoactive bowel sounds, no guarding, no rebound, no hepatosplenomegaly, no masses. EXTREMITIES: No edema in LEs. 2+ pulses, warm, well-perfused NEUROLOGICAL: More interactive today, alert. CN 2-12 intact. 5/5 strengh grossly. Sensation preserved in all extremities. PSYCH: Normal mood, normal affect. Appears depressed. SKIN: Warm, dry, normal turgor, no rashes or lesions noted Laboratory Results - last 24 hr CBC, BMP 11/16/17 05:00 11/16/17 05:00 11/15/17 05:05 11/15/17 05:05 11/14/17 11/14/17 11/15/17 17:30 22:00 05:05 PTT (Actin FS) 31.3 Puncture Site ABG pH ABG pCO2 at Pt Temp ABG pO2 at Pt Temp ABG HCO3 ABG O2 Sat (Measured) ABG O2 Content ABG Base Excess Dionte Test Oxygen Flow Rate Vent Mode Vent Rate PEEP Pressure Support Vent Sodium Potassium Chloride Carbon Dioxide Anion Gap BUN Creatinine Creat Clearance w eGFR POC Glucometer [phone] Random Glucose Calcium Phosphorus Magnesium Total Bilirubin AST ALT Alkaline Phosphatase Total Protein Albumin 11/15/17 11/15/17 11/15/17 05:05 05:15 06:55 PTT (Actin FS) Puncture Site Right radial ABG pH 7.44 ABG pCO2 at Pt Temp 53.8 H D ABG pO2 at Pt Temp 66.0 L D ABG HCO3 35.6 H ABG O2 Sat (Measured) 90.6 ABG O2 Content 11.9 L ABG Base Excess 10.3 H Dionte Test Positive Oxygen Flow Rate 60% Vent Mode A/c Vent Rate 18 PEEP 8.0 Pressure Support Vent 400 Sodium 150 H Potassium 4.0 Chloride 104 Carbon Dioxide 37 H Anion Gap 9 BUN 87 H Creatinine 2.2 H Creat Clearance w eGFR 30.38 POC Glucometer > 400 Random Glucose 361 H* D Calcium 8.9 Phosphorus 4.1 Magnesium 2.5 H Total Bilirubin 0.7 D AST 10 L D ALT 12 Alkaline Phosphatase 96 Total Protein 7.8 Albumin 2.3 L 11/15/17 11:56 PTT (Actin FS) Puncture Site ABG pH ABG pCO2 at Pt Temp ABG pO2 at Pt Temp ABG HCO3 ABG O2 Sat (Measured) ABG O2 Content ABG Base Excess Dionte Test Oxygen Flow Rate Vent Mode Vent Rate PEEP Pressure Support Vent Sodium Potassium Chloride Carbon Dioxide Anion Gap BUN Creatinine Creat Clearance w eGFR POC Glucometer [phone] Random Glucose Calcium Phosphorus Magnesium Total Bilirubin AST ALT Alkaline Phosphatase Total Protein Albumin Active Medications Generic Name Dose Route Start Last Admin Trade Name Freq PRN Reason Stop Dose Admin Acetaminophen 650 mg 11/13/17 19:10 Tylenol - PO Q6H PRN FEVER Acetaminophen 1,000 mg 11/13/17 19:10 Ofirmev Injection - IVPB Q6H PRN FEVER Albuterol/Ipratropium 1 amp 11/13/17 20:00 11/15/17 20:30 Duoneb - NEB 1 amp RQID SONAL Administration Amino Acids 30 ml 11/14/17 17:30 11/15/17 17:09 Prosource No Carb Liquid Pkt PO 30 ml BID@0800,1730 SONAL Administration Apixaban 5 mg 11/13/17 22:00 11/15/17 21:26 Eliquis - PO 5 mg BID SONAL Administration Artificial Tears 1 applic 11/13/17 22:00 11/15/17 21:32 Artificial Tears Ointment - OU 1 applic HS SONAL Administration Chlorhexidine Gluconate 1 applic 11/13/17 22:00 11/15/17 21:20 Hibiclens For Decolonization - TP 1 applic HS SONAL Administration Propofol 1,000,000 mcg in 100 mls @ 1.96 mls/hr 11/13/17 19:30 11/15/17 21:20 Diprivan - IVPB Not Given TITR SONAL Protocol 5 MCG/KG/MIN Sodium Chloride 1,000 mls @ 42 mls/hr 11/15/17 13:15 11/15/17 16:00 1/2 Normal Saline IV 42 mls/hr ASDIR SONAL Administration Piperacillin/Tazobactam/Dextrose 2.25 gm in 50 mls @ 100 mls/hr 11/15/17 18: 00 11/16/17 02:39 Zosyn 2.25gm Ivpb (Premix) IVPB 100 mls/hr Q8H-IV SONAL Administration Protocol Insulin Aspart 1 vial 11/13/17 22:00 11/15/17 21:21 Novolog Vial Sliding Scale - SQ Not Given ACHS SONAL Protocol Insulin Detemir 5 units 11/15/17 22:00 11/15/17 21:26 Levemir Vial SQ 5 units BID@0700,2200 SONAL Administration Metoprolol Tartrate 5 mg 11/13/17 19:10 11/14/17 21:39 Lopressor Injection - IVPUSH 5 mg Q4H PRN Administration HYPERTENSION Mupirocin 1 applic 11/13/17 22:00 11/15/17 21:20 Bactroban Ointment (For Decolonization) - NS 11/18/17 21:59 1 applic BID SONAL Administration Pantoprazole Sodium 40 mg 11/14/17 12:00 11/15/17 10:50 Protonix Iv IVPUSH 40 mg DAILY SONAL Administration Prednisone 40 mg 11/14/17 10:00 11/15/17 10:46 Deltasone - PO 40 mg DAILY SONAL Administration Quetiapine Fumarate 25 mg 11/15/17 22:00 11/15/17 21:26 Seroquel - PO 25 mg HS SONAL Administration Ranitidine HCl 150 mg 11/14/17 10:00 11/15/17 10:46 Zantac - PO 150 mg DAILY SONAL Administration Roflumilast 500 mcg 11/14/17 10:00 11/15/17 10:46 Daliresp - NGT 500 mcg DAILY SONAL Administration Saliva Substitute 1 applic 11/14/17 10:00 11/15/17 10:47 Mouthkote Solution - MM 1 applic DAILY SONAL Administration Microbiology 11/13/17 17:30 Blood - Peripheral Venous Blood Culture - Preliminary NO GROWTH OBTAINED AFTER 48 HOURS, INCUBATION TO CONTINUE FOR 3 DAYS. 11/13/17 17:10 Blood - Peripheral Venous Blood Culture - Preliminary NO GROWTH OBTAINED AFTER 48 HOURS, INCUBATION TO CONTINUE FOR 3 DAYS. 11/15/17 11:00 Nasopharyngeal Swab Influenza Types A,B Antigen (CHUY) - Final 11/15/17 11:00 Nasopharyngeal Swab - Final 10/21/17 06:00 Serum Cryptococcal Antigen - Final 10/19/17 19:30 Sputum - Expectorated Gram Stain - Final 10/19/17 19:30 Sputum - Expectorated Sputum Culture - Final NORMAL RESPIRATORY TOYIN 10/17/17 10:10 Blood - Peripheral Venous Blood Culture - Final NO GROWTH AFTER 5 DAYS INCUBATION 10/17/17 10:10 Blood - Peripheral Venous Blood Culture - Final NO GROWTH AFTER 5 DAYS INCUBATION 10/17/17 13:57 Urine - Urine Clean Catch Urine Culture - Final NO GROWTH OBTAINED 10/17/17 13:57 Urine For Antigen Detection Legionella Antigen - Final 10/17/17 13:57 Urine For Antigen Detection Streptococcus pneumoniae Antigen (M - Final 10/17/17 10:25 Nasopharyngeal Swab Influenza Types A,B Antigen (CHUY) - Final 10/17/17 10:25 Nasopharyngeal Swab - Final Recent imaging: CXR 10/21/17 - Since 10/30/2017, the ARDS pattern has diminished minimally. Follow- up recommended. CT Abdomen 10/31 - The gallbladder demonstrates no definite CT pathology. There is nonspecific minimal to mild intrahepatic biliary tract dilatation. Clinical/ laboratory correlation is suggested as well as with follow-up CT. Dilatation of the main pancreatic duct as noted above. Pancreatic ductal dilatation was also noted on a 2012 ultrasound exam. Several small pancreatic head calcifications are seen suggestive of chronic calcific pancreatitis. No gross mass lesion is identified. Correlate with MRI/MRCP when the patient's clinical condition permits. No CT evidence of acute pancreatitis. Mild acute pancreatitis is frequently not demonstrable on CT or MRI. The partially imaged lower chest demonstrates prominent bilateral interstitial thickening with relative peripheral sparing - ? Noncardiogenic edema, infectious versus noninfectious pneumonitis, hemorrhage. Correlate clinically. This finding may be somewhat increased in comparison to a chest CT exam of 10/20/2017. No pleural effusion is seen. Bibasilar bronchiectasis. There is partial imaging of nonspecific mediastinal lymphadenopathy (as described on chest CT). Prominent atherosclerotic vascular calcifications. Mild to moderate L1 and mild L5 vertebral body compression fractures are noted which appear chronic. No bony retropulsion is seen. The visualized osseous structures appear to be diffusely demineralized. Clinical/laboratory correlation is suggested. Additional evaluation utilizing bone densitometry/DEXA scan may be considered. CXR 11/01 - Since a prior study of 10/31/2017, extensive opacification is identified throughout the lung james with little significant change. This is consistent with ARDS. No pleural effusions have developed. CXR 11/02 - No significant change from prior cxr. Still with BL reticulonodular diffuse opacification. CXR 11/05 - No significant change. BL reticulonodular pattern. CXR 11/06 - No change overall CXR 11/07 - Trach in place. Diffuse BL interstitial and possible alveolar changes. No pneumo or pleural effusions. ekg 11/08 - NSR, Rate 86, QTC 409, LVH, NANCY, no ST/Twave changes CXR 11/08 - No significant interval changes, BL parenchymal reticulonodular infiltrates, ETT tube, NG tube in place CXR 11/09 - no change from prior CXR 11/10 - No change CXR 11/13 - Good placement of ETT tube CXR 11/14 - no significant change Renal U/S 11/14 - Normal kidneys BL. CXR 11/15 - No change CXR 11/16 - R lower lobe opacity with air bronchograms; clinically correlate 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 #Acute hypoxic respiratory failure (possibly 2/2 ILD vs Pneumonitis)- s/p trach 11/07 after failed vent wean; trach exchanged 11/11 - Tolerating wean well today - Taper FiO2 as tolerated to maintain SpO2 >90% - c/w Prednisone 40mg daily - c/w Roflumilast and Duonebs QID - mild serosanguinous drainage today around new trach - Will require wean to 50% FiO2 for placement at [facility] for tooth cutter pinion care - off sedation today; start PEG feeds yesterday with 20ml flushes; 300ml water flushes every 4 hours - Seroquel 25mg PO qHS for agitation; off restraints overnight as no longer pulling at lines/tubes - 2pt restraints PRN #Leukocytosis, WBC 15.7-> 12 today; suspected aspiration event; CXR with possible RLL opacity - sputum culture + for GNR; Urine + for yeast - ID consulted; will f/u recs and adjust abx accordingly - Day 4 Zosyn for empiric coverage for suspected aspiration PNA; switched to renal dosing 2.25 q8h - trend fever, wbc curve - flu swab negative #hypernatremia, Na 150-> 148 today - Renal consulted - Pre-renal; FeNa 0.3%; likely secondary to hypovolemia - free water flushes via PEG tube 300ml q4h - Daily BMP, trend Na - 1/2 NS 42cc/hr, as pt w/ poor glucose control #MIRLANDE - Cr 2.2 -> 1.8 today; Likely secondary to dehydration vs. sepsis vs. possible obstruction - Renal U/S nrml - Urine lytes - Renal consult - IVFs - Trend Cr #agitation - repeated attempts to remove trach; -Restraints prn -cont holding xanax - propofol for sedation #RLE DVT s/p IVC filter 10/20 and thrombectomy 10/24 -c/w Eliquis 5mg BID #Acute on diastolic CHF - Not clinically volume overloaded -c/w hold lasix #DM (A1c 7.4 on admission); On D5W -BGM -ISS ACHS - Levemir increased to 10u BID as BGM well controlled #BPH - - flomax held #Nicotine dependence - c/w nicotine patch #PPX Eliquis 5mg BID Zantac 150mg daily #FEN: 10/17 NS 42cc/hr Daily BMP, trend Na Cont tube feeds Dispo to ICU Discussed with attending, Dr. James Reeves, PGY1 Visit type - Emergency Visit Emergency Visit: Yes ED Registration Date: 10/17/17 Care time: The patient presented to the Emergency Department on the above date and was hospitalized for further evaluation of their emergent condition. - New Patient This patient is new to me today: No - Critical Care Critical Care patient: Yes Total Critical Care Time (in minutes): 35 Critical Care Statement: The care of this patient involved high complexity decision making to prevent further life threatening deterioration of the patient 's condition and/or to evaluate & treat vital organ system(s) failure or risk of failure.
[2017-11-16] MEDS: INSULIN DETEMIR 100 UNITS/ML MDV SQ SCH ×2 (06:01→22:00)
[2017-11-16] MEDS: INSULIN SLIDING SCALE (NOVOLOG) 1 VIAL SQ SCH ×4 (06:02→22:00)
[2017-11-16 06:19] LABS: BASO % 0.1 % (0-2.0); EOS % 0.6 % (0-4.5); HEMATOCRIT 26.4 % (35.4-49); HEMOGLOBIN 8.2 GM/dL (11.7-16.9); LYMPH % 6.6 % (8-40); MCH 31.8 pg (25.7-33.7); MCHC 30.9 g/dl (32.0-35.9); MEAN PLT VOLUME 11.9 fl (7.5-11.1); MONO % 7.5 % (3.8-10.2); NEUT % 85.2 % (42.8-82.8); PLATELET COUNT 193 K/MM3 (134-434); RBC 2.56 M/mm3 (4.00-5.60); WHITE BLOOD COUNT 12.1 K/mm3 (4.0-10.0)
[2017-11-16 06:45] LABS: ALBUMIN 2.1 g/dl (3.4-5.0); ANION GAP 7 (8-16); BLOOD UREA NITROGEN 75 mg/dL (7-18); CALCIUM 8.1 mg/dL (8.5-10.1); CHLORIDE 103 mmol/L (98-107); CO2 38 mmol/L (21-32); POTASSIUM 3.7 mmol/L (3.5-5.1); SODIUM 148 mmol/L (136-145)
[2017-11-16 06:50] LABS: ALK PHOS 101 U/L (45-117); BILIRUBIN,TOTAL 0.4 mg/dL (0.2-1.0); CREATININE 1.8 mg/dL (0.7-1.3); SGOT/AST 11 U/L (15-37); SGPT/ALT 13 U/L (12-78); TOT PROT 7.2 g/dl (6.4-8.2)
[2017-11-16 07:16] LABS: GLUCOSE,RANDOM 344 mg/dL (74-106)
[2017-11-16] MEDS: ALBUTEROL SO4 2.5/IPRATROPIUM 0.5 INH SOL 3 ML VIAL.NEB. NEB SCH ×4 (08:15→20:58)
--- NOTE | 2017-11-16 08:20 | PN ---
Physical Exam: SUBJECTIVE: Patient seen and examined Patient is a 62 year old male who was BIBEMS for hypoxic respiratory failure eating food, off of pressers, but with RLE DVT without PE s/p IVC filter, thrombectomy, catheter directed heparin infusion, requiring tracheostomy. Patient has been less agitated overnight on seroquel and has been tolerating the trach replacement. Otherwise no acute events overnight. OBJECTIVE: Vital Signs Period Temp Pulse Resp BP Sys/Sutton Pulse Ox Last 24 Hr 97.4 F-98.2 F 95-131 18-35 114-143/57-77 93-95 GENERAL: The patient is trached, in no acute distress. HEAD: Normal with no signs of trauma. EYES: sclera anicteric, conjunctiva clear. No ptosis. ENT: oropharynx clear without exudates, moist mucous membranes. NECK: Trachea midline, full range of motion, supple. LUNGS: Breath sounds equal, Bilateral rales auscultated on exam worse on the right, no wheezes, no accessory muscle use. HEART: Regular rate and rhythm, S1, S2 without murmur, rub or gallop. ABDOMEN: Soft, nontender, nondistended, normoactive bowel sounds, no guarding, no rebound, no hepatosplenomegaly, no masses. EXTREMITIES: 2+ pulses, warm, well-perfused, NEUROLOGICAL:Trached. gait not observed. PSYCH: Normal mood, normal affect. SKIN: Warm, dry, normal turgor, no rashes or lesions noted Laboratory Results - last 24 hr 11/14/17 11/14/17 11/15/17 17:30 22:00 05:15 WBC RBC Hgb Hct MCV MCH MCHC RDW Plt Count MPV Neutrophils % Lymphocytes % Monocytes % Eosinophils % Basophils % Sodium Potassium Chloride Carbon Dioxide Anion Gap BUN Creatinine Creat Clearance w eGFR POC Glucometer 396.06113 169.89472 > 400 Random Glucose Calcium Total Bilirubin AST ALT Alkaline Phosphatase Total Protein Albumin 11/15/17 11/15/17 11/15/17 11:56 17:16 21:16 WBC RBC Hgb Hct MCV MCH MCHC RDW Plt Count MPV Neutrophils % Lymphocytes % Monocytes % Eosinophils % Basophils % Sodium Potassium Chloride Carbon Dioxide Anion Gap BUN Creatinine Creat Clearance w eGFR POC Glucometer 304.16360 > 400 169.29177 Random Glucose Calcium Total Bilirubin AST ALT Alkaline Phosphatase Total Protein Albumin 11/16/17 11/16/17 11/16/17 05:00 05:00 05:53 WBC 12.1 H RBC 2.56 L Hgb 8.2 L Hct 26.4 L MCV 103.0 H MCH 31.8 MCHC 30.9 L RDW 17.0 H Plt Count 193 D MPV 11.9 H Neutrophils % 85.2 H D Lymphocytes % 6.6 L D Monocytes % 7.5 Eosinophils % 0.6 Basophils % 0.1 Sodium 148 H Potassium 3.7 Chloride 103 Carbon Dioxide 38 H Anion Gap 7 L BUN 75 H Creatinine 1.8 H Creat Clearance w eGFR 38.30 POC Glucometer > 400 Random Glucose 344 H* Calcium 8.1 L Total Bilirubin 0.4 D AST 11 L ALT 13 Alkaline Phosphatase 101 Total Protein 7.2 Albumin 2.1 L Active Medications Generic Name Dose Route Start Last Admin Trade Name Freq PRN Reason Stop Dose Admin Acetaminophen 650 mg 11/13/17 19:10 Tylenol - PO Q6H PRN FEVER Acetaminophen 1,000 mg 11/13/17 19:10 Ofirmev Injection - IVPB Q6H PRN FEVER Albuterol/Ipratropium 1 amp 11/13/17 20:00 11/15/17 20:30 Duoneb - NEB 1 amp RQID SONAL Administration Amino Acids 30 ml 11/14/17 17:30 11/15/17 17:09 Prosource No Carb Liquid Pkt PO 30 ml BID@0800,1730 SONAL Administration Apixaban 5 mg 11/13/17 22:00 11/15/17 21:26 Eliquis - PO 5 mg BID SONAL Administration Artificial Tears 1 applic 11/13/17 22:00 11/15/17 21:32 Artificial Tears Ointment - OU 1 applic HS SONAL Administration Chlorhexidine Gluconate 1 applic 11/13/17 22:00 11/15/17 21:20 Hibiclens For Decolonization - TP 1 applic HS SONAL Administration Propofol 1,000,000 mcg in 100 mls @ 1.96 mls/hr 11/13/17 19:30 11/15/17 21:20 Diprivan - IVPB Not Given TITR SONAL Protocol 5 MCG/KG/MIN Sodium Chloride 1,000 mls @ 42 mls/hr 11/15/17 13:15 11/15/17 16:00 1/2 Normal Saline IV 42 mls/hr ASDIR SONAL Administration Piperacillin/Tazobactam/Dextrose 2.25 gm in 50 mls @ 100 mls/hr 11/15/17 18: 00 11/16/17 02:39 Zosyn 2.25gm Ivpb (Premix) IVPB 100 mls/hr Q8H-IV SONAL Administration Protocol Insulin Aspart 1 vial 11/13/17 22:00 11/16/17 06:02 Novolog Vial Sliding Scale - SQ 10 units ACHS SONAL Administration Protocol Insulin Detemir 5 units 11/15/17 22:00 11/16/17 06:01 Levemir Vial SQ 5 units BID@0700,2200 SONAL Administration Metoprolol Tartrate 5 mg 11/13/17 19:10 11/14/17 21:39 Lopressor Injection - IVPUSH 5 mg Q4H PRN Administration HYPERTENSION Mupirocin 1 applic 11/13/17 22:00 11/15/17 21:20 Bactroban Ointment (For Decolonization) - NS 11/18/17 21:59 1 applic BID SONAL Administration Pantoprazole Sodium 40 mg 11/14/17 12:00 11/15/17 10:50 Protonix Iv IVPUSH 40 mg DAILY SONAL Administration Prednisone 40 mg 11/14/17 10:00 11/15/17 10:46 Deltasone - PO 40 mg DAILY SONAL Administration Quetiapine Fumarate 25 mg 11/15/17 22:00 11/15/17 21:26 Seroquel - PO 25 mg HS SONAL Administration Ranitidine HCl 150 mg 11/14/17 10:00 11/15/17 10:46 Zantac - PO 150 mg DAILY [facility]ONAL Administration Roflumilast 500 mcg 11/14/17 10:00 11/15/17 10:46 Daliresp - NGT 500 mcg DAILY SONAL Administration Saliva Substitute 1 applic 11/14/17 10:00 11/15/17 10:47 Mouthkote Solution - MM 1 applic DAILY SONAL Administration ASSESSMENT/PLAN: Patient is a 62 year old male who was BIBEMS for hypoxic respiratory failure eating food, off of pressers, but with RLE DVT without PE s/p IVC filter, thrombectomy, catheter directed heparin infusion, requiring tracheostomy. Neuro: #Nicotine Dependence: - Nicotine patch 7 MG daily #Anxiety -Continue xanax for management of anxiety. #Agitation -Continue seroquel 25mg for management of agitation. CV: #Septic Shock vs. iatrogenic hypovolemic shock vs. cardiogenic shock: original presentation - Tachycardia of 105, Respiratory rate 26, Fever of 101, WBC of 11.7, Hypotension with SBP <90 with no response to IV fluids, and Lactic Acidosis of 3.6. Source unclear but likely PNA. Off pressers - Resolved #DVT: U/S positive for Right calf DVT, s/p thrombectomy - s/p IR direct infusion, doing well - Continue Eliquis #Chest Pain: - EKG unchanged Pulm: #Acute Hypoxic Respiratory Failure: Legionalla and strep negative. Zosyn and Vancomycin given in ED. Patient denies any recent hospitalization or abx use. Original chest X-ray reveals bilateral multifocal inflammatory changes (ARDS) vs. congestive heart failure. given JVD and crackles it is likely the later. treated for CAP. ECHO showing mild mitral regurg, mild/mod tricuspid regurg, mild PHTN. CT demonstrating diffuse interstitial lung disease AND XRs evidencing occasional volume overload. Patient currenty has a trach. New chest plain film demonstrates findings concerning for a right lower lobe pneumonia. - Continue Prednisone 40 daily - Continue zosyn for antibiotic coverage of right lower lobe pneumonia. - Will attempt to ween the patient's FiO2 as tolerated. - Patient has been tolerating his trach. - Continue scheduled duonebs. - Continue daliresp. - All cultures negative ID: likely ILD with GGO vs. infectious pattern. HIV, influenza, strep, legionella neg. BCx NGTD, sputum Cx NGTD. Completed Azithromycin and Ceftriaxone for suspected CAP. All cultures neg and ID tests neg including cryptococcal. Concern for right lower lobe pneumonia. - Continue zosyn for antibiotic coverage. - ID recs appreciated Renal: - CTM - Avoid nephrotoxic medications Heme: #Macrocytic Anemia: Hemoglobin 9.2 with MCV 101. Ferritin 882 (likely reactive) -Hb stable Endo #NIDDM: -Patient is no longer having hypoglycemic episodes requiring D50 pushes -Will continue to monitor BGM and provided D50 pushes as needed. -ISS : #BPH -Patient on Tamsulosin 0.4mg daily GI: #Peptic Ulcer Disease: History of mesh according to family and had Endoscopy two months. Was given medications according to patients daughter and completed course. - on PPI FEN -Electrolytes Repleted as needed. -Continue PEG tube feeds. PPX: - Eliquis - Protonix Disposition: Continued ICU care. Visit type - Emergency Visit Emergency Visit: No - New Patient This patient is new to me today: No - Critical Care Critical Care patient: Yes Total Critical Care Time (in minutes): 35 Critical Care Statement: The care of this patient involved high complexity decision making to prevent further life threatening deterioration of the patient 's condition and/or to evaluate & treat vital organ system(s) failure or risk of failure.
--- NOTE | 2017-11-16 09:17 | PN ---
Progress Note, Physician Chief Complaint: ID Continues on Pip Tazobactam Quite tachypneic especially during trach care and suctioning PO2 87% - Current Medication List Current Medications: Active Medications Acetaminophen (Tylenol -) 650 mg PO Q6H PRN PRN Reason: FEVER Acetaminophen (Ofirmev Injection -) 1,000 mg IVPB Q6H PRN PRN Reason: FEVER Albuterol/Ipratropium (Duoneb -) 1 amp NEB RQID [facility] Last Admin: 11/16/17 08:15 Dose: 1 amp Amino Acids (Prosource No Carb Liquid Pkt) 30 ml PO BID@0800,1730 [facility] Last Admin: 11/15/17 17:09 Dose: 30 ml Apixaban (Eliquis -) 5 mg PO BID [facility] Last Admin: 11/15/17 21:26 Dose: 5 mg Artificial Tears (Artificial Tears Ointment -) 1 applic OU HS [facility] Last Admin: 11/15/17 21:32 Dose: 1 applic Chlorhexidine Gluconate (Hibiclens For Decolonization -) 1 applic TP HS [facility] Last Admin: 11/15/17 21:20 Dose: 1 applic Propofol (Diprivan -) 1,000,000 mcg in 100 mls @ 1.96 mls/hr IVPB TITR SONAL; 5 MCG/KG/MIN PRN Reason: Protocol Last Admin: 11/15/17 21:20 Dose: Not Given Sodium Chloride (1/2 Normal Saline) 1,000 mls @ 42 mls/hr IV ASDIR [facility] Last Admin: 11/15/17 16:00 Dose: 42 mls/hr Piperacillin/Tazobactam/Dextrose (Zosyn 2.25gm Ivpb (Premix)) 2.25 gm in 50 mls @ 100 mls/hr IVPB Q8H-IV SONAL PRN Reason: Protocol Last Admin: 11/16/17 02:39 Dose: 100 mls/hr Insulin Aspart (Novolog Vial Sliding Scale -) 1 vial SQ ACHS [facility] PRN Reason: Protocol Last Admin: 11/16/17 06:02 Dose: 10 units Insulin Detemir (Levemir Vial) 5 units SQ BID@0700,2200 [facility] Last Admin: 11/16/17 06:01 Dose: 5 units Metoprolol Tartrate (Lopressor Injection -) 5 mg IVPUSH Q4H PRN PRN Reason: HYPERTENSION Last Admin: 11/14/17 21:39 Dose: 5 mg Mupirocin (Bactroban Ointment (For Decolonization) -) 1 applic NS BID [facility] Stop: 11/18/17 21:59 Last Admin: 11/15/17 21:20 Dose: 1 applic Pantoprazole Sodium (Protonix Iv) 40 mg IVPUSH DAILY [facility] Last Admin: 11/15/17 10:50 Dose: 40 mg Prednisone (Deltasone -) 40 mg PO DAILY [facility] Last Admin: 11/15/17 10:46 Dose: 40 mg Quetiapine Fumarate (Seroquel -) 25 mg PO HS [facility] Last Admin: 11/15/17 21:26 Dose: 25 mg Ranitidine HCl (Zantac -) 150 mg PO DAILY [facility] Last Admin: 11/15/17 10:46 Dose: 150 mg Roflumilast (Daliresp -) 500 mcg NGT DAILY [facility] Last Admin: 11/15/17 10:46 Dose: 500 mcg Saliva Substitute (Mouthkote Solution -) 1 applic MM DAILY [facility] Last Admin: 11/15/17 10:47 Dose: 1 applic - Objective Vital Signs: Vital Signs Temperature 97.7 F 11/16/17 05:33 Pulse Rate 98 H 11/16/17 08:15 Respiratory Rate 30 H 11/16/17 08:15 Blood Pressure 107/63 11/16/17 08:00 O2 Sat by Pulse Oximetry (%) 100 11/16/17 08:15 Constitutional: Yes: Moderate Distress Neck: Yes: Other (Tracheostomy) Cardiovascular: Yes: Tachycardia, S1, S2 Respiratory: Yes: WNL, Regular, CTA Bilaterally, Rales Gastrointestinal: Yes: Soft. No: Tenderness Edema: No Labs: CBC, BMP 11/16/17 05:00 11/16/17 05:00 INR, PTT INR 1.02 (0.82-1.09) 11/09/17 05:50 Assessment/Plan Microbiology 11/13/17 17:30 Blood - Peripheral Venous Blood Culture - Preliminary NO GROWTH OBTAINED AFTER 48 HOURS, INCUBATION TO CONTINUE FOR 3 DAYS. 11/13/17 17:10 Blood - Peripheral Venous Blood Culture - Preliminary NO GROWTH OBTAINED AFTER 48 HOURS, INCUBATION TO CONTINUE FOR 3 DAYS. Laboratory Tests 11/16/17 05:00 WBC 12.1 H Hgb 8.2 L Hct 26.4 L Plt Count 193 D Assessment Chronic respiratory failure with possibility of superimposed bacterial infection considered WBC does seem to be coming down. Difficult to determine acute infiltrate on chest xray Cultures pending NO fever on steroids Obvious respiratory distress Plan PIP TAZOBACTAM to continue while we wait for sputum culture Umer IVY
[2017-11-16] MEDS: AMINO ACIDS/PROTEIN HYDROLYS 30 ML LIQUID.PKT PO SCH ×2 (10:00→18:14)
[2017-11-16] MEDS: predniSONE 20 MG TABLET (UD) PO SCH (10:00)
[2017-11-16] MEDS: RANITIDINE HCL 150 MG TABLET (FP) PO SCH (10:00)
[2017-11-16] MEDS: PANTOPRAZOLE SODIUM 40 MG VIAL IVPUSH SCH (10:01)
[2017-11-16] MEDS: ROFLUMILAST 500 MCG TABLET NGT SCH (10:01)
[2017-11-16] MEDS: APIXABAN 5 MG TABLET PO SCH ×2 (10:01→21:40)
[2017-11-16] MEDS: MUPIROCIN 2% TOPICAL OINTMENT FOR DECOLONIZATION NS SCH ×2 (10:02→21:40)
[2017-11-16] MEDS: LYTES/YERBA SANTA 240 ML BOTTLE MM SCH (10:03)
--- NOTE | 2017-11-16 11:44 | PN ---
Teaching Attending Note Name of Resident: Evans Marie ATTENDING PHYSICIAN STATEMENT I saw and evaluated the patient. I reviewed the resident's note and discussed the case with the resident. I agree with the resident's findings and plan as documented. SUBJECTIVE: Pt seen and examined in the ICU. Vented on volume assist control with 60-70% FiO2, PEEP 8. No fevers recorded. OBJECTIVE: Last Vital Signs Temp Pulse Resp BP Pulse Ox 97.7 F 98 H 30 H 107/63 100 11/16/17 05:33 11/16/17 08:15 11/16/17 10:51 11/16/17 08:00 11/16/17 08:15 Intake & Output 11/13/17 11/14/17 11/15/17 11/16/17 23:59 23:59 23:59 23:59 Intake Total 2266.8 1640 2114 Output Total 300 700 700 200 Balance -300 1566.8 940 1914 Weight 64.501 kg 40.9 kg 44.594 kg 43.8 kg Gen: vented, tachypneic Heart: RRR Lung: scattered rhonchi, rales Abd: soft, nontender Ext: no edema CBC, BMP 11/16/17 05:00 11/16/17 05:00 Active Medications Acetaminophen (Tylenol -) 650 mg PO Q6H PRN PRN Reason: FEVER Acetaminophen (Ofirmev Injection -) 1,000 mg IVPB Q6H PRN PRN Reason: FEVER Albuterol/Ipratropium (Duoneb -) 1 amp NEB RQID [facility] Last Admin: 11/16/17 11:20 Dose: 1 amp Amino Acids (Prosource No Carb Liquid Pkt) 30 ml PO BID@0800,1730 [facility] Last Admin: 11/16/17 10:00 Dose: 30 ml Apixaban (Eliquis -) 5 mg PO BID [facility] Last Admin: 11/16/17 10:01 Dose: 5 mg Artificial Tears (Artificial Tears Ointment -) 1 applic OU HS [facility] Last Admin: 11/15/17 21:32 Dose: 1 applic Chlorhexidine Gluconate (Hibiclens For Decolonization -) 1 applic TP HS [facility] Last Admin: 11/15/17 21:20 Dose: 1 applic Propofol (Diprivan -) 1,000,000 mcg in 100 mls @ 1.96 mls/hr IVPB TITR SONAL; 5 MCG/KG/MIN PRN Reason: Protocol Last Admin: 11/15/17 21:20 Dose: Not Given Sodium Chloride (1/2 Normal Saline) 1,000 mls @ 42 mls/hr IV ASDIR [facility] Last Admin: 11/15/17 16:00 Dose: 42 mls/hr Piperacillin/Tazobactam/Dextrose (Zosyn 2.25gm Ivpb (Premix)) 2.25 gm in 50 mls @ 100 mls/hr IVPB Q8H-IV [facility]ONAL PRN Reason: Protocol Last Admin: 11/16/17 10:00 Dose: 100 mls/hr Insulin Aspart (Novolog Vial Sliding Scale -) 1 vial SQ ACHS [facility]ON[facility] PRN Reason: Protocol Last Admin: 11/16/17 06:02 Dose: 10 units Insulin Detemir (Levemir Vial) 10 units SQ BID@0700,2200 [facility] Metoprolol Tartrate (Lopressor Injection -) 5 mg IVPUSH Q4H PRN PRN Reason: HYPERTENSION Last Admin: 11/14/17 21:39 Dose: 5 mg Mupirocin (Bactroban Ointment (For Decolonization) -) 1 applic NS BID [facility] Stop: 11/18/17 21:59 Last Admin: 11/16/17 10:02 Dose: 1 applic Pantoprazole Sodium (Protonix Iv) 40 mg IVPUSH DAILY [facility] Last Admin: 11/16/17 10:01 Dose: 40 mg Prednisone (Deltasone -) 40 mg PO DAILY [facility] Last Admin: 11/16/17 10:00 Dose: 40 mg Quetiapine Fumarate (Seroquel -) 25 mg PO HS [facility] Last Admin: 11/15/17 21:26 Dose: 25 mg Ranitidine HCl (Zantac -) 150 mg PO DAILY [facility] Last Admin: 11/16/17 10:00 Dose: 150 mg Roflumilast (Daliresp -) 500 mcg NGT DAILY [facility] Last Admin: 11/16/17 10:01 Dose: 500 mcg Saliva Substitute (Mouthkote Solution -) 1 applic MM DAILY [facility] Last Admin: 11/16/17 10:03 Dose: 1 applic ASSESSMENT AND PLAN: Acute Hypoxic Respiratory Failure s/p Tracheostomy Pneumonia Sepsis Interstitial Lung Disease Acute Diastolic Heart Failure improved Acute Kidney Injury Lactic Acidosis resolved DM RLE DVT - continue empiric antibiotics - f/u pending cultures - IVF - monitor urine output, creatinine - increase free water - continue prednisone - anxiolytics, seroquel qHS - enteral feeds - continue anticoagulation - swallow eval for possible PO intake when airway issues resolved - taper FiO2 to keep SpO2 >90% - spontaneous breathing trials as tolerated - DVT/GI prophylaxis - continue ICU monitoring for now critical care time spent in reviewing chart, evaluating patient and formulating plan 35 min Problem List - Problems (1) Acute respiratory failure with hypoxia Code(s): J96.01 - ACUTE RESPIRATORY FAILURE WITH HYPOXIA (2) Pneumonia Code(s): J18.9 - PNEUMONIA, UNSPECIFIED ORGANISM (3) Diabetes Code(s): E11.9 - TYPE 2 DIABETES MELLITUS WITHOUT COMPLICATIONS
--- NOTE | 2017-11-16 12:16 | PN ---
Progress Note, Physician History of Present Illness: Pt seen and examined at bedside. He is awake and appears comfortable. He remains in the ICU. His daughter is at bedside. - Current Medication List Current Medications: Active Medications Acetaminophen (Tylenol -) 650 mg PO Q6H PRN PRN Reason: FEVER Acetaminophen (Ofirmev Injection -) 1,000 mg IVPB Q6H PRN PRN Reason: FEVER Albuterol/Ipratropium (Duoneb -) 1 amp NEB RQID [facility] Last Admin: 11/16/17 11:20 Dose: 1 amp Amino Acids (Prosource No Carb Liquid Pkt) 30 ml PO BID@0800,1730 [facility] Last Admin: 11/16/17 10:00 Dose: 30 ml Apixaban (Eliquis -) 5 mg PO BID [facility] Last Admin: 11/16/17 10:01 Dose: 5 mg Artificial Tears (Artificial Tears Ointment -) 1 applic OU HS [facility] Last Admin: 11/15/17 21:32 Dose: 1 applic Chlorhexidine Gluconate (Hibiclens For Decolonization -) 1 applic TP HS [facility] Last Admin: 11/15/17 21:20 Dose: 1 applic Propofol (Diprivan -) 1,000,000 mcg in 100 mls @ 1.96 mls/hr IVPB TITR [facility]ONAL; 5 MCG/KG/MIN PRN Reason: Protocol Last Admin: 11/15/17 21:20 Dose: Not Given Sodium Chloride (1/2 Normal Saline) 1,000 mls @ 42 mls/hr IV ASDIR [facility] Last Admin: 11/15/17 16:00 Dose: 42 mls/hr Piperacillin/Tazobactam/Dextrose (Zosyn 2.25gm Ivpb (Premix)) 2.25 gm in 50 mls @ 100 mls/hr IVPB Q8H-IV [facility] PRN Reason: Protocol Last Admin: 11/16/17 10:00 Dose: 100 mls/hr Insulin Aspart (Novolog Vial Sliding Scale -) 1 vial SQ ACHS [facility] PRN Reason: Protocol Last Admin: 11/16/17 12:11 Dose: Not Given Insulin Detemir (Levemir Vial) 10 units SQ BID@0700,2200 [facility] Metoprolol Tartrate (Lopressor Injection -) 5 mg IVPUSH Q4H PRN PRN Reason: HYPERTENSION Last Admin: 11/14/17 21:39 Dose: 5 mg Mupirocin (Bactroban Ointment (For Decolonization) -) 1 applic NS BID [facility] Stop: 11/18/17 21:59 Last Admin: 11/16/17 10:02 Dose: 1 applic Pantoprazole Sodium (Protonix Iv) 40 mg IVPUSH DAILY [facility] Last Admin: 11/16/17 10:01 Dose: 40 mg Prednisone (Deltasone -) 40 mg PO DAILY [facility] Last Admin: 11/16/17 10:00 Dose: 40 mg Quetiapine Fumarate (Seroquel -) 25 mg PO HS [facility] Last Admin: 11/15/17 21:26 Dose: 25 mg Ranitidine HCl (Zantac -) 150 mg PO DAILY [facility] Last Admin: 11/16/17 10:00 Dose: 150 mg Roflumilast (Daliresp -) 500 mcg NGT DAILY [facility] Last Admin: 11/16/17 10:01 Dose: 500 mcg Saliva Substitute (Mouthkote Solution -) 1 applic MM DAILY [facility] Last Admin: 11/16/17 10:03 Dose: 1 applic - Objective Vital Signs: Vital Signs Temperature 97.7 F 11/16/17 05:33 Pulse Rate 98 H 11/16/17 08:15 Respiratory Rate 30 H 11/16/17 10:51 Blood Pressure 107/63 11/16/17 08:00 O2 Sat by Pulse Oximetry (%) 100 11/16/17 08:15 Constitutional: Yes: Calm, Poor Hygeine Neck: Yes: Other (trache) Cardiovascular: Yes: S1, S2 Respiratory: Yes: Mechanically Ventilated Gastrointestinal: Yes: Soft, Other (peg) Genitourinary: Yes: Other (external catheter) Musculoskeletal: Yes: Muscle Weakness Edema: No Neurological: Yes: Oriented Labs: CBC, BMP 11/16/17 05:00 11/16/17 05:00 INR, PTT INR 1.02 (0.82-1.09) 11/09/17 05:50 - ....Imaging Chest X-ray: Report Reviewed Problem List - Problems (1) Hypernatremia Code(s): E87.0 - HYPEROSMOLALITY AND HYPERNATREMIA (2) MIRLANDE (acute kidney injury) Code(s): N17.9 - ACUTE KIDNEY FAILURE, UNSPECIFIED (3) Acute respiratory failure with hypoxia Code(s): J96.01 - ACUTE RESPIRATORY FAILURE WITH HYPOXIA (4) Diabetes Code(s): E11.9 - TYPE 2 DIABETES MELLITUS WITHOUT COMPLICATIONS (5) Failure to thrive Code(s): HYP4105 - Assessment/Plan Current Medications Generic Name Dose Route Start Last Admin Trade Name Freq PRN Reason Stop Dose Admin Acetaminophen 650 mg 11/13/17 19:10 Tylenol - PO Q6H PRN FEVER Acetaminophen 1,000 mg 11/13/17 19:10 Ofirmev Injection - IVPB Q6H PRN FEVER Albuterol/Ipratropium 1 amp 11/13/17 20:00 11/16/17 11:20 Duoneb - NEB 1 amp RQID [facility] Administration Amino Acids 30 ml 11/14/17 17:30 11/16/17 10:00 Prosource No Carb Liquid Pkt PO 30 ml BID@0800,1730 [facility] Administration Apixaban 5 mg 11/13/17 22:00 11/16/17 10:01 Eliquis - PO 5 mg BID [facility] Administration Artificial Tears 1 applic 11/13/17 22:00 11/15/17 21:32 Artificial Tears Ointment - OU 1 applic HS [facility] Administration Chlorhexidine Gluconate 1 applic 11/13/17 22:00 11/15/17 21:20 Hibiclens For Decolonization - TP 1 applic HS [facility] Administration Propofol 1,000,000 mcg in 100 mls @ 1.96 mls/hr 11/13/17 19:30 11/15/17 21:20 Diprivan - IVPB Not Given TITR [facility]ONAL Protocol 5 MCG/KG/MIN Sodium Chloride 1,000 mls @ 42 mls/hr 11/15/17 13:15 11/15/17 16:00 1/2 Normal Saline IV 42 mls/hr ASDIR [facility] Administration Piperacillin/Tazobactam/Dextrose 2.25 gm in 50 mls @ 100 mls/hr 11/15/17 18: 00 11/16/17 10:00 Zosyn 2.25gm Ivpb (Premix) IVPB 100 mls/hr Q8H-IV [facility] Administration Protocol Insulin Aspart 1 vial 11/13/17 22:00 11/16/17 12:11 Novolog Vial Sliding Scale - SQ Not Given ACHS [facility] Protocol Insulin Detemir 10 units 11/16/17 11:37 Levemir Vial SQ BID@0700,2200 [facility] Metoprolol Tartrate 5 mg 11/13/17 19:10 11/14/17 21:39 Lopressor Injection - IVPUSH 5 mg Q4H PRN Administration HYPERTENSION Mupirocin 1 applic 11/13/17 22:00 11/16/17 10:02 Bactroban Ointment (For Decolonization) - NS 11/18/17 21:59 1 applic BID [facility] Administration Pantoprazole Sodium 40 mg 11/14/17 12:00 11/16/17 10:01 Protonix Iv IVPUSH 40 mg DAILY [facility] Administration Prednisone 40 mg 11/14/17 10:00 11/16/17 10:00 Deltasone - PO 40 mg DAILY [facility] Administration Quetiapine Fumarate 25 mg 11/15/17 22:00 11/15/17 21:26 Seroquel - PO 25 mg HS [facility] Administration Ranitidine HCl 150 mg 11/14/17 10:00 11/16/17 10:00 Zantac - PO 150 mg DAILY [facility] Administration Roflumilast 500 mcg 11/14/17 10:00 11/16/17 10:01 Daliresp - NGT 500 mcg DAILY [facility] Administration Saliva Substitute 1 applic 11/14/17 10:00 11/16/17 10:03 Mouthkote Solution - MM 1 applic DAILY [facility] Administration Impression 1. MIRLANDE 2. hypernatremia 3. chronic resp failure s/p trache 4. s/p trache 5. s/p peg 6. sepsis 7. interstitial lung disease 8. chf diastolic 9. DM 10. lactic acidosis 11. PNA Plan - renal function is improving - sodium is improving - will need better glucose control - cont current feeds - repeat labs in am - pulm input appreciated - cont ICU care Dr Gan
--- NOTE | 2017-11-16 13:01 | PN ---
Teaching Attending Note Name of Resident: Dylon Reeves ATTENDING PHYSICIAN STATEMENT Time of evaluation: 11:15 AM I saw and evaluated the patient. I reviewed the resident's note and discussed the case with the resident. I agree with the resident's findings and plan as documented. SUBJECTIVE: Patient seen and examined. Awake, calmer today. Denies any new complaints. OBJECTIVE: Vital Signs Period Temp Pulse Resp BP Sys/Sutton Pulse Ox Last 24 Hr 97.4 F-98.2 F 95-113 18-35 107-143/57-77 93-100 Intake & Output 11/13/17 11/14/17 11/15/17 11/16/17 23:59 23:59 23:59 23:59 Intake Total 2266.8 1640 2114 Output Total 300 700 700 200 Balance -300 1566.8 940 1914 Weight 142 lb 3.2 oz 90 lb 2.705 oz 98 lb 5 oz 96 lb 9 oz General: lying in bed, calmer, less tachypneic today CVS:S1S2 regular, tachycardic Chest: bilateral rales unchanged Abdomen: PEG in place, soft, scaphoid, positive bowel sounds, NT extremities: no edema Home Medication List Medication Instructions Recorded Confirmed Type Glipizide [Glucotrol Xl] 0 mg PO ASDIR 10/17/17 10/17/17 History Metformin HCl 0 mg PO ASDIR 10/17/17 10/17/17 History Tamsulosin HCl 0.4 mg PO DAILY 10/17/17 10/17/17 History Active Medications Generic Name Dose Route Start Last Admin Trade Name Freq PRN Reason Stop Dose Admin Acetaminophen 650 mg 11/13/17 19:10 Tylenol - PO Q6H PRN FEVER Acetaminophen 1,000 mg 11/13/17 19:10 Ofirmev Injection - IVPB Q6H PRN FEVER Albuterol/Ipratropium 1 amp 11/13/17 20:00 11/16/17 11:20 Duoneb - NEB 1 amp RQID SONAL Administration Amino Acids 30 ml 11/14/17 17:30 11/16/17 10:00 Prosource No Carb Liquid Pkt PO 30 ml BID@0800,1730 SONAL Administration Apixaban 5 mg 11/13/17 22:00 11/16/17 10:01 Eliquis - PO 5 mg BID SONAL Administration Artificial Tears 1 applic 11/13/17 22:00 11/15/17 21:32 Artificial Tears Ointment - OU 1 applic HS SONAL Administration Chlorhexidine Gluconate 1 applic 11/13/17 22:00 11/15/17 21:20 Hibiclens For Decolonization - TP 1 applic HS SONAL Administration Propofol 1,000,000 mcg in 100 mls @ 1.96 mls/hr 11/13/17 19:30 11/15/17 21:20 Diprivan - IVPB Not Given TITR SONAL Protocol 5 MCG/KG/MIN Sodium Chloride 1,000 mls @ 42 mls/hr 11/15/17 13:15 11/15/17 16:00 1/2 Normal Saline IV 42 mls/hr ASDIR SONAL Administration Piperacillin/Tazobactam/Dextrose 2.25 gm in 50 mls @ 100 mls/hr 11/15/17 18: 00 11/16/17 10:00 Zosyn 2.25gm Ivpb (Premix) IVPB 100 mls/hr Q8H-IV SONAL Administration Protocol Insulin Aspart 1 vial 11/13/17 22:00 11/16/17 12:11 Novolog Vial Sliding Scale - SQ Not Given ACHS [facility] Protocol Insulin Detemir 10 units 11/16/17 11:37 Levemir Vial SQ BID@0700,2200 SONAL Metoprolol Tartrate 5 mg 11/13/17 19:10 11/14/17 21:39 Lopressor Injection - IVPUSH 5 mg Q4H PRN Administration HYPERTENSION Mupirocin 1 applic 11/13/17 22:00 11/16/17 10:02 Bactroban Ointment (For Decolonization) - NS 11/18/17 21:59 1 applic BID SONAL Administration Pantoprazole Sodium 40 mg 11/14/17 12:00 11/16/17 10:01 Protonix Iv IVPUSH 40 mg DAILY SONAL Administration Prednisone 40 mg 11/14/17 10:00 11/16/17 10:00 Deltasone - PO 40 mg DAILY SONAL Administration Quetiapine Fumarate 25 mg 11/15/17 22:00 11/15/17 21:26 Seroquel - PO 25 mg HS SONAL Administration Ranitidine HCl 150 mg 11/14/17 10:00 11/16/17 10:00 Zantac - PO 150 mg DAILY SONAL Administration Roflumilast 500 mcg 11/14/17 10:00 11/16/17 10:01 Daliresp - NGT 500 mcg DAILY SONAL Administration Saliva Substitute 1 applic 11/14/17 10:00 11/16/17 10:03 Mouthkote Solution - MM 1 applic DAILY SONAL Administration Laboratory Results - last 24 hr 11/14/17 11/14/17 11/15/17 17:30 22:00 05:15 WBC RBC Hgb Hct MCV MCH MCHC RDW Plt Count MPV Neutrophils % Lymphocytes % Monocytes % Eosinophils % Basophils % Sodium Potassium Chloride Carbon Dioxide Anion Gap BUN Creatinine Creat Clearance w eGFR POC Glucometer 396.35338 169.39791 > 400 Random Glucose Calcium Total Bilirubin AST ALT Alkaline Phosphatase Total Protein Albumin 11/15/17 11/15/17 11/15/17 11:56 17:16 21:16 WBC RBC Hgb Hct MCV MCH MCHC RDW Plt Count MPV Neutrophils % Lymphocytes % Monocytes % Eosinophils % Basophils % Sodium Potassium Chloride Carbon Dioxide Anion Gap BUN Creatinine Creat Clearance w eGFR POC Glucometer 304.17059 > 400 169.03558 Random Glucose Calcium Total Bilirubin AST ALT Alkaline Phosphatase Total Protein Albumin 11/16/17 11/16/17 11/16/17 05:00 05:00 05:53 WBC 12.1 H RBC 2.56 L Hgb 8.2 L Hct 26.4 L MCV 103.0 H MCH 31.8 MCHC 30.9 L RDW 17.0 H Plt Count 193 D MPV 11.9 H Neutrophils % 85.2 H D Lymphocytes % 6.6 L D Monocytes % 7.5 Eosinophils % 0.6 Basophils % 0.1 Sodium 148 H Potassium 3.7 Chloride 103 Carbon Dioxide 38 H Anion Gap 7 L BUN 75 H Creatinine 1.8 H Creat Clearance w eGFR 38.30 POC Glucometer > 400 Random Glucose 344 H* Calcium 8.1 L Total Bilirubin 0.4 D AST 11 L ALT 13 Alkaline Phosphatase 101 Total Protein 7.2 Albumin 2.1 L Microbiology 11/14/17 14:30 Sputum - Endotrachea Suction/Ventilator Sputum Culture - Preliminary Lactose Fermenting Neg Bacilli 11/14/17 22:00 Urine - Urine Clean Catch Urine Culture - Final Yeast Like Organism 11/13/17 17:30 Blood - Peripheral Venous Blood Culture - Preliminary NO GROWTH OBTAINED AFTER 48 HOURS, INCUBATION TO CONTINUE FOR 3 DAYS. 11/13/17 17:10 Blood - Peripheral Venous Blood Culture - Preliminary NO GROWTH OBTAINED AFTER 48 HOURS, INCUBATION TO CONTINUE FOR 3 DAYS. 11/15/17 11:00 Nasopharyngeal Swab Influenza Types A,B Antigen (CHUY) - Final 11/15/17 11:00 Nasopharyngeal Swab - Final 10/21/17 06:00 Serum Cryptococcal Antigen - Final 10/19/17 19:30 Sputum - Expectorated Gram Stain - Final 10/19/17 19:30 Sputum - Expectorated Sputum Culture - Final NORMAL RESPIRATORY TOYIN 10/17/17 10:10 Blood - Peripheral Venous Blood Culture - Final NO GROWTH AFTER 5 DAYS INCUBATION 10/17/17 10:10 Blood - Peripheral Venous Blood Culture - Final NO GROWTH AFTER 5 DAYS INCUBATION 10/17/17 13:57 Urine - Urine Clean Catch Urine Culture - Final NO GROWTH OBTAINED 10/17/17 13:57 Urine For Antigen Detection Legionella Antigen - Final 10/17/17 13:57 Urine For Antigen Detection Streptococcus pneumoniae Antigen (M - Final 10/17/17 10:25 Nasopharyngeal Swab Influenza Types A,B Antigen (CHUY) - Final 10/17/17 10:25 Nasopharyngeal Swab - Final ASSESSMENT AND PLAN: 62 yo M active smoker, pMHx of NIDDM, PUD, BPH admitted with acute hypoxic respiratory failure, and extensive RLE DVT -Acute hypoxic respiratory failure, suspect from ?ILD with pneumonitis s/p intubation 11/03, trach 11/07, exchanged 11/11 for cuff, now recurrent worsening respiratory failure, suspected aspiration PNA with sepsis -Extensive RLE Acute DVT, s/p IVC filter 10/20, thrombectmy 10/24 - Acute diastolic heart failure -Sepsis on admission, likely from PNA, now recurrent concerns for aspiration PNA -Lactic acidosis, from sepsis vs increased work of breathing, resolved -MIRLANDE on admission from sepsis, now recurrent, ?Sepsis, vs ATN vs r/o obstructive process -Hypernatremia -Thrombocytopenia -Elevated INR -Chest wall and right sided abdominal pain -NIDDM -PUD -BPH -Cachexia/malnutrition Plan: Calmer today, started on seroquel, FIO2 down to 60%, overall looks better. Frequent suctioning. Trach cuff leak, s/p extended trach placed 11/14 with no further leak. CXR no new infiltrate but ?Aspiration PNA vs pneumonitis. ID input appreciated. zosyn resumed day 4 (prior s/p 7 days of ceftriaxone/azithromycin). Blood cx neg , sputum cx with gm neg bacillus, follow up, Flu swab neg. Continue prednisone. ?ILD with pneumonitis, unclear etiology, on Eliquis, hold for procedure as indicated. Renal ultrasound/nephrology input/Urine lytes neg. Suspect hypovolumia. Free water flushes to 300ml q4h. Change D5w to 1/2 NS given hyperglycemic, watch out for fluid overload. na/renal function improved. s/p PEG 11/09, resume tube feeds. Follow up speech/swallow eval as able. Intermittent agitation, 2 point restraints as pulls at the vent. Off restraints today, will monitor. Platelets improved. replete lytes prn. Ac 7.4, ISS, hold oral hypoglycemics. Increase levemir to 10 units BID Continue flomax. Nicotine patch MICU monitoring. Total critical care time spent in ICU 35 min.
[2017-11-16] MEDS: SODIUM CHLORIDE 0.45% 1,000 ML IV SCH (16:00)
[2017-11-16] MEDS: QUEtiapine FUMARATE 25 MG TABLET (FP) PO SCH (21:39)
[2017-11-16] MEDS: CHLORHEXIDINE GLUCONATE 4% CLEANSER FOR DECOLONIZATION TP SCH (21:40)
[2017-11-16] MEDS: PROPOFOL 1,000,000 MCG/100 ML VIAL IVPB SCH (21:47)
[2017-11-16] MEDS: MINERAL OIL/PETROLATUM,WHITE 3.5 GM TUBE OU SCH (22:32)
[2017-11-17] MEDS: PIPERACILLIN/TAZOB 2.25 GM 2.25 GM/50 ML BAG IVPB SCH ×3 (02:00→17:29)
--- NOTE | 2017-11-17 05:42 | PN ---
Physical Exam: SUBJECTIVE: Patient seen and examined - Still tends to desat when care given by nursing. Multiple loose BMs overnight. Pt did well overnight. Less anxious in AM. States breathing, SOB is slightly improved. Denies CP, SOB, Ab pain, N/V, peripheral numbness/weakness, LE edema. No events on tele. Pt satting 100% on 70% FiO2 in AM when seen. Continues to tolerate feeds. OBJECTIVE: Vital Signs Intake & Output 11/14/17 11/15/17 11/16/17 11/17/17 23:59 23:59 23:59 23:59 Intake Total 2266.8 1640 4278 554 Output Total 700 700 350 Balance 1566.8 940 3928 554 Weight 40.9 kg 44.594 kg 43.8 kg 43.5 kg Period Temp Pulse Resp BP Sys/Sutton Pulse Ox Last 24 Hr 98.1 F-982 F 90-120 18-30 107-155/54-70 99-100 GENERAL: Cachectic man laying in NAD, less agitated. Vented, trach HEAD: Normal with no signs of trauma. Bitemporal wasting EYES: Eye open, fixed. sclera anicteric, conjunctiva clear. No ptosis. ENT: Ears normal, nares patent, oropharynx clear without exudates, trace secretions noted in oropharynx. NECK: Trach collar in place, trace SS drainage around trach. No significant erythema or purulence. Trachea midline, supple. No JVD noted. LUNGS: Mechanical breath sounds. Diffuse crackles BL. No wheezes, no accessory muscle use HEART: 2/6 systolic ejection murmur at LUSB. Regular rate and rhythm, S1, S2 without murmur, rub or gallop. ABDOMEN: PEG tube in place, no erythema, drainage or purulence around site. Scaphoid abdomen, hypoactive bowel sounds, no guarding, no rebound, no hepatosplenomegaly, no masses. EXTREMITIES: No edema in LEs. 2+ pulses, warm, well-perfused NEUROLOGICAL: Less agitated, more interactive with examiner. CN 2-12 intact. 5/ 5 strengh grossly. Sensation preserved in all extremities. PSYCH: Normal mood, normal affect. Appears depressed. SKIN: Warm, dry, normal turgor, no rashes or lesions noted Laboratory Results - last 24 hrv CBC, BMP CBC, BMP 11/17/17 06:30 11/17/17 06:30 11/16/17 05:00 11/16/17 23:15 11/12/17 11/12/17 11/12/17 06:59 12:49 21:33 WBC RBC Hgb Hct MCV MCH MCHC RDW Plt Count MPV Neutrophils % Lymphocytes % Monocytes % Eosinophils % Basophils % Sodium Potassium Chloride Carbon Dioxide Anion Gap BUN Creatinine Creat Clearance w eGFR POC Glucometer 322.15364 323.69674 271.07047 Random Glucose Calcium Total Bilirubin AST ALT Alkaline Phosphatase Total Protein Albumin 11/13/17 11/13/17 11/15/17 05:58 11:33 17:16 WBC RBC Hgb Hct MCV MCH MCHC RDW Plt Count MPV Neutrophils % Lymphocytes % Monocytes % Eosinophils % Basophils % Sodium Potassium Chloride Carbon Dioxide Anion Gap BUN Creatinine Creat Clearance w eGFR POC Glucometer 223.61122 > 400 > 400 Random Glucose Calcium Total Bilirubin AST ALT Alkaline Phosphatase Total Protein Albumin 11/15/17 11/16/17 11/16/17 21:16 05:00 05:00 WBC 12.1 H RBC 2.56 L Hgb 8.2 L Hct 26.4 L MCV 103.0 H MCH 31.8 MCHC 30.9 L RDW 17.0 H Plt Count 193 D MPV 11.9 H Neutrophils % 85.2 H D Lymphocytes % 6.6 L D Monocytes % 7.5 Eosinophils % 0.6 Basophils % 0.1 Sodium 148 H Potassium 3.7 Chloride 103 Carbon Dioxide 38 H Anion Gap 7 L BUN 75 H Creatinine 1.8 H Creat Clearance w eGFR 38.30 POC Glucometer 169.44221 Random Glucose 344 H* Calcium 8.1 L Total Bilirubin 0.4 D AST 11 L ALT 13 Alkaline Phosphatase 101 Total Protein 7.2 Albumin 2.1 L 11/16/17 11/16/17 11/16/17 05:53 11:41 18:23 WBC RBC Hgb Hct MCV MCH MCHC RDW Plt Count MPV Neutrophils % Lymphocytes % Monocytes % Eosinophils % Basophils % Sodium Potassium Chloride Carbon Dioxide Anion Gap BUN Creatinine Creat Clearance w eGFR POC Glucometer > 400 195.43995 198.44903 Random Glucose Calcium Total Bilirubin AST ALT Alkaline Phosphatase Total Protein Albumin 11/16/17 23:15 WBC RBC Hgb Hct MCV MCH MCHC RDW Plt Count MPV Neutrophils % Lymphocytes % Monocytes % Eosinophils % Basophils % Sodium Potassium Chloride Carbon Dioxide Anion Gap BUN Creatinine Creat Clearance w eGFR POC Glucometer Random Glucose 401 H* Calcium Total Bilirubin AST ALT Alkaline Phosphatase Total Protein Albumin Active Medications Generic Name Dose Route Start Last Admin Trade Name Ivan PRN Reason Stop Dose Admin Acetaminophen 650 mg 11/13/17 19:10 11/16/17 19:54 Tylenol - PO 650 mg Q6H PRN Administration FEVER Acetaminophen 1,000 mg 11/13/17 19:10 Ofirmev Injection - IVPB Q6H PRN FEVER Albuterol/Ipratropium 1 amp 11/13/17 20:00 11/16/17 20:58 Duoneb - NEB 1 amp RQID SONAL Administration Amino Acids 30 ml 11/14/17 17:30 11/16/17 18:14 Prosource No Carb Liquid Pkt PO 30 ml BID@0800,1730 SONAL Administration Apixaban 5 mg 11/13/17 22:00 11/16/17 21:40 Eliquis - PO 5 mg BID SONAL Administration Artificial Tears 1 applic 11/13/17 22:00 11/16/17 22:32 Artificial Tears Ointment - OU 1 applic HS SONAL Administration Chlorhexidine Gluconate 1 applic 11/13/17 22:00 11/16/17 21:40 Hibiclens For Decolonization - TP 1 applic HS SONAL Administration Propofol 1,000,000 mcg in 100 mls @ 1.96 mls/hr 11/13/17 19:30 11/16/17 21:47 Diprivan - IVPB Not Given TITR SONAL Protocol 5 MCG/KG/MIN Sodium Chloride 1,000 mls @ 42 mls/hr 11/15/17 13:15 11/16/17 16:00 1/2 Normal Saline IV 42 mls/hr ASDIR SONAL Administration Piperacillin/Tazobactam/Dextrose 2.25 gm in 50 mls @ 100 mls/hr 11/15/17 18: 00 11/17/17 02:00 Zosyn 2.25gm Ivpb (Premix) IVPB 100 mls/hr Q8H-IV SONAL Administration Protocol Insulin Aspart 1 vial 11/13/17 22:00 11/16/17 18:27 Novolog Vial Sliding Scale - SQ Not Given ACHS S[facility]AL Protocol Insulin Detemir 10 units 11/16/17 11:37 Levemir Vial SQ BID@0700,2200 SONAL Metoprolol Tartrate 5 mg 11/13/17 19:10 11/14/17 21:39 Lopressor Injection - IVPUSH 5 mg Q4H PRN Administration HYPERTENSION Mupirocin 1 applic 11/13/17 22:00 11/16/17 21:40 Bactroban Ointment (For Decolonization) - NS 11/18/17 21:59 1 applic BID SONAL Administration Pantoprazole Sodium 40 mg 11/14/17 12:00 11/16/17 10:01 Protonix Iv IVPUSH 40 mg DAILY SONAL Administration Prednisone 40 mg 11/14/17 10:00 11/16/17 10:00 Deltasone - PO 40 mg DAILY SONAL Administration Quetiapine Fumarate 25 mg 11/15/17 22:00 11/16/17 21:39 Seroquel - PO 25 mg HS SONAL Administration Ranitidine HCl 150 mg 11/14/17 10:00 11/16/17 10:00 Zantac - PO 150 mg DAILY SONAL Administration Roflumilast 500 mcg 11/14/17 10:00 11/16/17 10:01 Daliresp - NGT 500 mcg DAILY SONAL Administration Saliva Substitute 1 applic 11/14/17 10:00 11/16/17 10:03 Mouthkote Solution - MM 1 applic DAILY SONAL Administration Microbiology 11/13/17 17:30 Blood - Peripheral Venous Blood Culture - Preliminary NO GROWTH OBTAINED AFTER 72 HOURS, INCUBATION TO CONTINUE FOR 2 DAYS. 11/13/17 17:10 Blood - Peripheral Venous Blood Culture - Preliminary NO GROWTH OBTAINED AFTER 72 HOURS, INCUBATION TO CONTINUE FOR 2 DAYS. 11/14/17 14:30 Sputum - Endotrachea Suction/Ventilator Sputum Culture - Preliminary Lactose Fermenting Neg Bacilli 11/14/17 22:00 Urine - Urine Clean Catch Urine Culture - Final Yeast Like Organism 11/15/17 11:00 Nasopharyngeal Swab Influenza Types A,B Antigen (CHUY) - Final 11/15/17 11:00 Nasopharyngeal Swab - Final 10/21/17 06:00 Serum Cryptococcal Antigen - Final 10/19/17 19:30 Sputum - Expectorated Gram Stain - Final 10/19/17 19:30 Sputum - Expectorated Sputum Culture - Final NORMAL RESPIRATORY TOYIN 10/17/17 10:10 Blood - Peripheral Venous Blood Culture - Final NO GROWTH AFTER 5 DAYS INCUBATION 10/17/17 10:10 Blood - Peripheral Venous Blood Culture - Final NO GROWTH AFTER 5 DAYS INCUBATION 10/17/17 13:57 Urine - Urine Clean Catch Urine Culture - Final NO GROWTH OBTAINED 10/17/17 13:57 Urine For Antigen Detection Legionella Antigen - Final 10/17/17 13:57 Urine For Antigen Detection Streptococcus pneumoniae Antigen (M - Final 10/17/17 10:25 Nasopharyngeal Swab Influenza Types A,B Antigen (CHUY) - Final 10/17/17 10:25 Nasopharyngeal Swab - Final Recent imaging: CXR 10/21/17 - Since 10/30/2017, the ARDS pattern has diminished minimally. Follow- up recommended. CT Abdomen 10/31 - The gallbladder demonstrates no definite CT pathology. There is nonspecific minimal to mild intrahepatic biliary tract dilatation. Clinical/ laboratory correlation is suggested as well as with follow-up CT. Dilatation of the main pancreatic duct as noted above. Pancreatic ductal dilatation was also noted on a 2012 ultrasound exam. Several small pancreatic head calcifications are seen suggestive of chronic calcific pancreatitis. No gross mass lesion is identified. Correlate with MRI/MRCP when the patient's clinical condition permits. No CT evidence of acute pancreatitis. Mild acute pancreatitis is frequently not demonstrable on CT or MRI. The partially imaged lower chest demonstrates prominent bilateral interstitial thickening with relative peripheral sparing - ? Noncardiogenic edema, infectious versus noninfectious pneumonitis, hemorrhage. Correlate clinically. This finding may be somewhat increased in comparison to a chest CT exam of 10/20/2017. No pleural effusion is seen. Bibasilar bronchiectasis. There is partial imaging of nonspecific mediastinal lymphadenopathy (as described on chest CT). Prominent atherosclerotic vascular calcifications. Mild to moderate L1 and mild L5 vertebral body compression fractures are noted which appear chronic. No bony retropulsion is seen. The visualized osseous structures appear to be diffusely demineralized. Clinical/laboratory correlation is suggested. Additional evaluation utilizing bone densitometry/DEXA scan may be considered. CXR 11/01 - Since a prior study of 10/31/2017, extensive opacification is identified throughout the lung james with little significant change. This is consistent with ARDS. No pleural effusions have developed. CXR 11/02 - No significant change from prior cxr. Still with BL reticulonodular diffuse opacification. CXR 11/05 - No significant change. BL reticulonodular pattern. CXR 11/06 - No change overall CXR 11/07 - Trach in place. Diffuse BL interstitial and possible alveolar changes. No pneumo or pleural effusions. ekg 11/08 - NSR, Rate 86, QTC 409, LVH, NANCY, no ST/Twave changes CXR 11/08 - No significant interval changes, BL parenchymal reticulonodular infiltrates, ETT tube, NG tube in place CXR 11/09 - no change from prior CXR 11/10 - No change CXR 11/13 - Good placement of ETT tube CXR 11/14 - no significant change Renal U/S 11/14 - Normal kidneys BL. CXR 11/15 - No change CXR 11/16 - R lower lobe opacity with air bronchograms; clinically correlate CXR 11/17 - No change from prior. 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 #Acute hypoxic respiratory failure (possibly 2/2 ILD vs Pneumonitis)- s/p trach 11/07 after failed vent wean; trach exchanged 11/11 - Tolerating wean. Decreased RR from 18, as not indicated in ILD - Taper FiO2 as tolerated to maintain SpO2 >90%. On 70% today. 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 - Cont PEG feeds with 20ml flushes; 300ml water flushes every 4 hours - Seroquel 25mg PO qHS for agitation; off restraints overnight as no longer pulling at lines/tubes - 2pt restraints PRN #Leukocytosis, WBC 11 today; suspected aspiration event; CXR with possible RLL opacity 11/16; no fevers overnight - sputum culture + for legionella, sensitive to zosyn; Urine + for yeast - ID consulted; will f/u recs and adjust abx accordingly - Day 4 Zosyn for empiric coverage for suspected aspiration PNA; switched to renal dosing 2.25 q8h - trend fever, wbc curve - flu swab negative #hypernatremia, Na 150 today - Renal consulted , recs appreciated - Pre-renal; FeNa 0.3%; likely secondary to hypovolemia - free water flushes via PEG tube 300ml q4h - Daily BMP, trend Na - 1/2 NS 42cc/hr, as pt w/ poor glucose control #MIRLANDE - Cr 1.8 -> 1.5 today, improving; Likely secondary to dehydration vs. sepsis vs. possible obstruction - Renal U/S nrml - Urine lytes - Renal consult - IVFs - Trend Cr #agitation - repeated attempts to remove trach; -off restraints; ordered Restraints prn -cont holding xanax - propofol for sedation #RLE DVT s/p IVC filter 10/20 and thrombectomy 10/24 -c/w Eliquis 5mg BID #Acute on diastolic CHF - Not clinically volume overloaded -c/w hold lasix #DM (A1c 7.4 on admission); On D5W -BGM -ISS ACHS - Levemir increased to 10u BID as BGM well controlled #BPH - - flomax held #Nicotine dependence - c/w nicotine patch #PPX Eliquis 5mg BID Zantac 150mg daily #FEN: 1/2 NS 42cc/hr Daily BMP, trend Na Cont tube feeds Dispo to ICU Discussed with attending, Dr. James Reeves, PGY1 Visit type - Emergency Visit Emergency Visit: Yes ED Registration Date: 10/17/17 Care time: The patient presented to the Emergency Department on the above date and was hospitalized for further evaluation of their emergent condition. - New Patient This patient is new to me today: No - Critical Care Critical Care patient: Yes Total Critical Care Time (in minutes): 35 Critical Care Statement: The care of this patient involved high complexity decision making to prevent further life threatening deterioration of the patient 's condition and/or to evaluate & treat vital organ system(s) failure or risk of failure.
[2017-11-17] MEDS: INSULIN DETEMIR 100 UNITS/ML MDV SQ SCH ×2 (06:01→21:59)
[2017-11-17 06:34] LABS: ARTERIAL BLD GAS O2 SATURATION 99.3 % (90-98.9); ARTERIAL BLOOD GAS PCO2 67.6 mmHg (35-45); ARTERIAL BLOOD GAS pH 7.35 (7.35-7.45)
[2017-11-17 06:36] LABS: ALLENS TEST POSITIVE
[2017-11-17 06:46] LABS: BASO % 0.7 % (0-2.0); EOS % 0.4 % (0-4.5); HEMATOCRIT 27.3 % (35.4-49); HEMOGLOBIN 8.6 GM/dL (11.7-16.9); LYMPH % 7.8 % (8-40); MCH 32.2 pg (25.7-33.7); MCHC 31.4 g/dl (32.0-35.9); MEAN CELL VOLUME 102.5 fl (80-96); MEAN PLT VOLUME 11.8 fl (7.5-11.1); MONO % 7.6 % (3.8-10.2); NEUT % 83.5 % (42.8-82.8); PLATELET COUNT 182 K/MM3 (134-434); RBC 2.67 M/mm3 (4.00-5.60); RDW 17.1 % (11.9-15.9)
--- NOTE | 2017-11-17 07:06 | PN ---
Progress Note, Physician Chief Complaint: ID ICU follow up for this 62 year old man with chronic respiratory failure and ILD Currently requires 70 % FIO2 On Zosyn day 4 Some purulent drainage noted from trach site especially during trach - Current Medication List Current Medications: Active Medications Acetaminophen (Tylenol -) 650 mg PO Q6H PRN PRN Reason: FEVER Last Admin: 11/16/17 19:54 Dose: 650 mg Acetaminophen (Ofirmev Injection -) 1,000 mg IVPB Q6H PRN PRN Reason: FEVER Albuterol/Ipratropium (Duoneb -) 1 amp NEB RQID [facility] Last Admin: 11/16/17 20:58 Dose: 1 amp Amino Acids (Prosource No Carb Liquid Pkt) 30 ml PO BID@0800,1730 [facility] Last Admin: 11/16/17 18:14 Dose: 30 ml Apixaban (Eliquis -) 5 mg PO BID [facility] Last Admin: 11/16/17 21:40 Dose: 5 mg Artificial Tears (Artificial Tears Ointment -) 1 applic OU HS [facility] Last Admin: 11/16/17 22:32 Dose: 1 applic Chlorhexidine Gluconate (Hibiclens For Decolonization -) 1 applic TP HS [facility] Last Admin: 11/16/17 21:40 Dose: 1 applic Propofol (Diprivan -) 1,000,000 mcg in 100 mls @ 1.96 mls/hr IVPB TITR SONAL; 5 MCG/KG/MIN PRN Reason: Protocol Last Admin: 11/16/17 21:47 Dose: Not Given Sodium Chloride (1/2 Normal Saline) 1,000 mls @ 42 mls/hr IV ASDIR [facility] Last Admin: 11/16/17 16:00 Dose: 42 mls/hr Piperacillin/Tazobactam/Dextrose (Zosyn 2.25gm Ivpb (Premix)) 2.25 gm in 50 mls @ 100 mls/hr IVPB Q8H-IV SONAL PRN Reason: Protocol Last Admin: 11/17/17 02:00 Dose: 100 mls/hr Insulin Aspart (Novolog Vial Sliding Scale -) 1 vial SQ ACHS [facility] PRN Reason: Protocol Last Admin: 11/16/17 22:00 Dose: 10 units Insulin Detemir (Levemir Vial) 10 units SQ BID@0700,2200 [facility] Last Admin: 11/17/17 06:01 Dose: 10 units Metoprolol Tartrate (Lopressor Injection -) 5 mg IVPUSH Q4H PRN PRN Reason: HYPERTENSION Last Admin: 11/14/17 21:39 Dose: 5 mg Mupirocin (Bactroban Ointment (For Decolonization) -) 1 applic NS BID [facility] Stop: 11/18/17 21:59 Last Admin: 11/16/17 21:40 Dose: 1 applic Pantoprazole Sodium (Protonix Iv) 40 mg IVPUSH DAILY [facility] Last Admin: 11/16/17 10:01 Dose: 40 mg Prednisone (Deltasone -) 40 mg PO DAILY [facility] Last Admin: 11/16/17 10:00 Dose: 40 mg Quetiapine Fumarate (Seroquel -) 25 mg PO HS [facility] Last Admin: 11/16/17 21:39 Dose: 25 mg Ranitidine HCl (Zantac -) 150 mg PO DAILY [facility] Last Admin: 11/16/17 10:00 Dose: 150 mg Roflumilast (Daliresp -) 500 mcg NGT DAILY [facility] Last Admin: 11/16/17 10:01 Dose: 500 mcg Saliva Substitute (Mouthkote Solution -) 1 applic MM DAILY [facility] Last Admin: 11/16/17 10:03 Dose: 1 applic - Objective Vital Signs: Vital Signs Temperature 98.7 F 11/17/17 05:47 Pulse Rate 88 11/17/17 05:47 Respiratory Rate 22 11/17/17 06:44 Blood Pressure 139/73 11/17/17 05:47 O2 Sat by Pulse Oximetry (%) 99 11/16/17 23:33 Constitutional: Yes: Moderate Distress Neck: Yes: Other (Tracheostomy) Cardiovascular: Yes: Regular Rate and Rhythm, S1, S2. No: Murmur Respiratory: Yes: WNL, Regular, CTA Bilaterally, Rales, Rhonchi Gastrointestinal: Yes: Normal Bowel Sounds, Soft, Other (PEG). No: Tenderness Extremities: No: Cold, Cool, Cyanosis Edema: No Labs: CBC, BMP 11/17/17 06:30 INR, PTT INR 1.02 (0.82-1.09) 11/09/17 05:50 Problem List - Problems (1) Interstitial lung disease Code(s): J84.9 - INTERSTITIAL PULMONARY DISEASE, UNSPECIFIED (2) Acute respiratory failure with hypoxia Code(s): J96.01 - ACUTE RESPIRATORY FAILURE WITH HYPOXIA (3) Pneumonia Code(s): J18.9 - PNEUMONIA, UNSPECIFIED ORGANISM (4) Deep vein thrombosis Code(s): I82.409 - ACUTE EMBOLISM AND THOMBOS UNSP DEEP VN UNSP LOWER EXTREMITY Assessment/Plan Microbiology 11/14/17 22:00 Urine - Urine Clean Catch Urine Culture - Final Yeast Like Organism 11/14/17 14:30 Sputum - Endotrachea Suction/Ventilator Sputum Culture - Preliminary Lactose Fermenting Neg Bacilli 11/13/17 17:30 Blood - Peripheral Venous Blood Culture - Preliminary NO GROWTH OBTAINED AFTER 72 HOURS, INCUBATION TO CONTINUE FOR 2 DAYS. 11/13/17 17:10 Blood - Peripheral Venous Blood Culture - Preliminary NO GROWTH OBTAINED AFTER 72 HOURS, INCUBATION TO CONTINUE FOR 2 DAYS. Laboratory Tests 10/20/17 10/21/17 10/21/17 13:02 05:50 05:50 WBC Hgb Hct Plt Count ABG pH BUN Creatinine HIV 1&2 Antibody Screen Negative HIV P24 Antigen Negative A. galactomannan Ag 0.11 TB Test (QFT) Indeterminate 11/14/17 11/15/17 11/16/17 05:15 05:05 05:00 WBC 18.0 H 15.7 H 12.1 H Hgb Hct Plt Count ABG pH BUN Creatinine HIV 1&2 Antibody Screen HIV P24 Antigen A. galactomannan Ag TB Test (QFT) 11/16/17 11/17/17 11/17/17 05:00 06:00 06:30 WBC 11.0 H Hgb 8.6 L Hct 27.3 L Plt Count 182 ABG pH 7.35 BUN 75 H Creatinine 1.8 H HIV 1&2 Antibody Screen HIV P24 Antigen A. galactomannan Ag TB Test (QFT) Assessment Chronic hypercarbic respiratory failure Interstitial lung disease Superimposed pneumonia ? Gram neg tania in sputum o Pip Tazobactam Diabetes IVC filter with DVT on Eliquis Acute renal failure Plan Continue antibiotic as ordered Sputum c/s pending Critical care time spent 35 minutes Umer IVY
[2017-11-17 07:29] LABS: ALBUMIN 2.2 g/dl (3.4-5.0); ALK PHOS 101 U/L (45-117); ANION GAP 3 (8-16); BILIRUBIN,TOTAL 0.3 mg/dL (0.2-1.0); BLOOD UREA NITROGEN 57 mg/dL (7-18); CALCIUM 8.3 mg/dL (8.5-10.1); CHLORIDE 109 mmol/L (98-107); CO2 38 mmol/L (21-32); CREATININE 1.4 mg/dL (0.7-1.3); GLUCOSE,RANDOM 112 mg/dL (74-106); MAGNESIUM 2.4 mg/dL (1.8-2.4); PHOSPHOROUS 3.2 mg/dL (2.5-4.9); POTASSIUM 3.3 mmol/L (3.5-5.1); SGOT/AST 16 U/L (15-37); SGPT/ALT 15 U/L (12-78); SODIUM 150 mmol/L (136-145); TOT PROT 7.3 g/dl (6.4-8.2)
[2017-11-17] MEDS ORDERED: POTASSIUM CHLORIDE TABS 20 MEQ TABLET.ER (FP) PO ONE (07:57)
[2017-11-17] MEDS: ALBUTEROL SO4 2.5/IPRATROPIUM 0.5 INH SOL 3 ML VIAL.NEB. NEB SCH ×4 (08:21→20:52)
--- NOTE | 2017-11-17 08:24 | PN ---
Physical Exam: SUBJECTIVE: Patient seen and examined Patient is a 62 year old male who was BIBEMS for hypoxic respiratory failure eating food, off of pressers, but with RLE DVT without PE s/p IVC filter, thrombectomy, catheter directed heparin infusion, requiring tracheostomy. Patient has no complaints at this time. Otherwise no acute events overnight. OBJECTIVE: Vital Signs Period Temp Pulse Resp BP Sys/Sutton Pulse Ox Last 24 Hr 98.1 F-982 F 88-120 18-30 109-155/54-73 99-100 GENERAL: The patient is trached, in no acute distress. HEAD: Normal with no signs of trauma. EYES: sclera anicteric, conjunctiva clear. No ptosis. ENT: oropharynx clear without exudates, moist mucous membranes. NECK: Trachea midline, full range of motion, supple. LUNGS: Breath sounds equal, Bilateral rales auscultated on exam worse on the right, no wheezes, no accessory muscle use. HEART: Regular rate and rhythm, S1, S2 without murmur, rub or gallop. ABDOMEN: Soft, nontender, nondistended, normoactive bowel sounds, no guarding, no rebound, no hepatosplenomegaly, no masses. EXTREMITIES: 2+ pulses, warm, well-perfused, NEUROLOGICAL:Trached. gait not observed. PSYCH: Normal mood, normal affect. SKIN: Warm, dry, normal turgor, no rashes or lesions noted Laboratory Results - last 24 hr 11/12/17 11/12/17 11/12/17 06:59 12:49 21:33 WBC RBC Hgb Hct MCV MCH MCHC RDW Plt Count MPV Neutrophils % Lymphocytes % Monocytes % Eosinophils % Basophils % Puncture Site ABG pH ABG pCO2 at Pt Temp ABG pO2 at Pt Temp ABG HCO3 ABG O2 Sat (Measured) ABG O2 Content ABG Base Excess Dionte Test Oxygen Flow Rate Vent Mode Vent Rate PEEP Sodium Potassium Chloride Carbon Dioxide Anion Gap BUN Creatinine Creat Clearance w eGFR POC Glucometer [phone] 271.20431 Random Glucose Calcium Phosphorus Magnesium Total Bilirubin AST ALT Alkaline Phosphatase Total Protein Albumin 11/13/17 11/13/17 11/16/17 05:58 11:33 11:41 WBC RBC Hgb Hct MCV MCH MCHC RDW Plt Count MPV Neutrophils % Lymphocytes % Monocytes % Eosinophils % Basophils % Puncture Site ABG pH ABG pCO2 at Pt Temp ABG pO2 at Pt Temp ABG HCO3 ABG O2 Sat (Measured) ABG O2 Content ABG Base Excess Dionte Test Oxygen Flow Rate Vent Mode Vent Rate PEEP Sodium Potassium Chloride Carbon Dioxide Anion Gap BUN Creatinine Creat Clearance w eGFR POC Glucometer 223.43975 > 400 195.19666 Random Glucose Calcium Phosphorus Magnesium Total Bilirubin AST ALT Alkaline Phosphatase Total Protein Albumin 11/16/17 11/16/17 11/17/17 18:23 23:15 05:22 WBC RBC Hgb Hct MCV MCH MCHC RDW Plt Count MPV Neutrophils % Lymphocytes % Monocytes % Eosinophils % Basophils % Puncture Site ABG pH ABG pCO2 at Pt Temp ABG pO2 at Pt Temp ABG HCO3 ABG O2 Sat (Measured) ABG O2 Content ABG Base Excess Dionte Test Oxygen Flow Rate Vent Mode Vent Rate PEEP Sodium Potassium Chloride Carbon Dioxide Anion Gap BUN Creatinine Creat Clearance w eGFR POC Glucometer 198.36344 165.56013 Random Glucose 401 H* Calcium Phosphorus Magnesium Total Bilirubin AST ALT Alkaline Phosphatase Total Protein Albumin 11/17/17 11/17/17 11/17/17 06:00 06:30 06:30 WBC 11.0 H RBC 2.67 L Hgb 8.6 L Hct 27.3 L MCV 102.5 H MCH 32.2 MCHC 31.4 L RDW 17.1 H Plt Count 182 MPV 11.8 H Neutrophils % 83.5 H Lymphocytes % 7.8 L Monocytes % 7.6 Eosinophils % 0.4 Basophils % 0.7 D Puncture Site Left radial ABG pH 7.35 ABG pCO2 at Pt Temp 67.6 H* D ABG pO2 at Pt Temp 131.0 H D ABG HCO3 36.6 H ABG O2 Sat (Measured) 99.3 H ABG O2 Content 11.7 L ABG Base Excess 10.0 H Dionte Test Positive Oxygen Flow Rate 70% Vent Mode A/c Vent Rate 18 PEEP 8.0 Sodium 150 H Potassium 3.3 L Chloride 109 H Carbon Dioxide 38 H Anion Gap 3 L BUN 57 H D Creatinine 1.4 H D Creat Clearance w eGFR 51.18 POC Glucometer Random Glucose 112 H D Calcium 8.3 L Phosphorus 3.2 D Magnesium 2.4 Total Bilirubin 0.3 D AST 16 D ALT 15 Alkaline Phosphatase 101 Total Protein 7.3 Albumin 2.2 L Active Medications Generic Name Dose Route Start Last Admin Trade Name Freq PRN Reason Stop Dose Admin Acetaminophen 650 mg 11/13/17 19:10 11/16/17 19:54 Tylenol - PO 650 mg Q6H PRN Administration FEVER Acetaminophen 1,000 mg 11/13/17 19:10 Ofirmev Injection - IVPB Q6H PRN FEVER Albuterol/Ipratropium 1 amp 11/13/17 20:00 11/17/17 08:21 Duoneb - NEB 1 amp RQID SONAL Administration Amino Acids 30 ml 11/14/17 17:30 11/16/17 18:14 Prosource No Carb Liquid Pkt PO 30 ml BID@0800,1730 SONAL Administration Apixaban 5 mg 11/13/17 22:00 11/16/17 21:40 Eliquis - PO 5 mg BID SONAL Administration Artificial Tears 1 applic 11/13/17 22:00 11/16/17 22:32 Artificial Tears Ointment - OU 1 applic HS SONAL Administration Chlorhexidine Gluconate 1 applic 11/13/17 22:00 11/16/17 21:40 Hibiclens For Decolonization - TP 1 applic HS SONAL Administration Propofol 1,000,000 mcg in 100 mls @ 1.96 mls/hr 11/13/17 19:30 11/16/17 21:47 Diprivan - IVPB Not Given TITR SONAL Protocol 5 MCG/KG/MIN Sodium Chloride 1,000 mls @ 42 mls/hr 11/15/17 13:15 11/16/17 16:00 1/2 Normal Saline IV 42 mls/hr ASDIR SONAL Administration Piperacillin/Tazobactam/Dextrose 2.25 gm in 50 mls @ 100 mls/hr 11/15/17 18: 00 11/17/17 02:00 Zosyn 2.25gm Ivpb (Premix) IVPB 100 mls/hr Q8H-IV SONAL Administration Protocol Insulin Aspart 1 vial 11/13/17 22:00 11/16/17 22:00 Novolog Vial Sliding Scale - SQ 10 units ACHS SONAL Administration Protocol Insulin Detemir 10 units 11/16/17 11:37 11/17/17 06:01 Levemir Vial SQ 10 units BID@0700,2200 SONAL Administration Metoprolol Tartrate 5 mg 11/13/17 19:10 11/14/17 21:39 Lopressor Injection - IVPUSH 5 mg Q4H PRN Administration HYPERTENSION Mupirocin 1 applic 11/13/17 22:00 11/16/17 21:40 Bactroban Ointment (For Decolonization) - NS 11/18/17 21:59 1 applic BID SONAL Administration Pantoprazole Sodium 40 mg 11/14/17 12:00 11/16/17 10:01 Protonix Iv IVPUSH 40 mg DAILY SONAL Administration Prednisone 40 mg 11/14/17 10:00 11/16/17 10:00 Deltasone - PO 40 mg DAILY SONAL Administration Quetiapine Fumarate 25 mg 11/15/17 22:00 11/16/17 21:39 Seroquel - PO 25 mg HS SONAL Administration Ranitidine HCl 150 mg 11/14/17 10:00 11/16/17 10:00 Zantac - PO 150 mg DAILY SONAL Administration Roflumilast 500 mcg 11/14/17 10:00 11/16/17 10:01 Daliresp - NGT 500 mcg DAILY SONAL Administration Saliva Substitute 1 applic 11/14/17 10:00 11/16/17 10:03 Mouthkote Solution - MM 1 applic DAILY SONAL Administration ASSESSMENT/PLAN: Patient is a 62 year old male who was BIBEMS for hypoxic respiratory failure eating food, off of pressers, but with RLE DVT without PE s/p IVC filter, thrombectomy, catheter directed heparin infusion, requiring tracheostomy. Neuro: #Nicotine Dependence: - Nicotine patch 7 MG daily #Anxiety -Continue xanax for management of anxiety. #Agitation -Continue seroquel 25mg for management of agitation. CV: #Septic Shock vs. iatrogenic hypovolemic shock vs. cardiogenic shock: original presentation - Tachycardia of 105, Respiratory rate 26, Fever of 101, WBC of 11.7, Hypotension with SBP <90 with no response to IV fluids, and Lactic Acidosis of 3.6. Source unclear but likely PNA. Off pressers - Resolved #DVT: U/S positive for Right calf DVT, s/p thrombectomy - s/p IR direct infusion, doing well - Continue Eliquis #Chest Pain: - EKG unchanged Pulm: #Acute Hypoxic Respiratory Failure: Legionalla and strep negative. Zosyn and Vancomycin given in ED. Patient denies any recent hospitalization or abx use. Original chest X-ray reveals bilateral multifocal inflammatory changes (ARDS) vs. congestive heart failure. given JVD and crackles it is likely the later. treated for CAP. ECHO showing mild mitral regurg, mild/mod tricuspid regurg, mild PHTN. CT demonstrating diffuse interstitial lung disease AND XRs evidencing occasional volume overload. Patient currenty has a trach. New chest plain film demonstrates findings concerning for a right lower lobe pneumonia. - Continue Prednisone 40 daily - Continue zosyn for antibiotic coverage of right lower lobe pneumonia. - Will attempt to ween the patient's FiO2 as tolerated. - Patient has been tolerating his trach. - Continue scheduled duonebs. - Continue daliresp. - All cultures negative ID: likely ILD with GGO vs. infectious pattern. HIV, influenza, strep, legionella neg. BCx NGTD, sputum Cx NGTD. Completed Azithromycin and Ceftriaxone for suspected CAP. Concern for right lower lobe pneumonia. Urine cultures growing yeast. Sputum culture growing lactose fermenting negative bacilli. - Continue zosyn for antibiotic coverage. - ID recs appreciated Renal: - CTM - Avoid nephrotoxic medications Heme: #Macrocytic Anemia: Hemoglobin 9.2 with MCV 101. Ferritin 882 (likely reactive) -Hb stable Endo #NIDDM: -Patient is no longer having hypoglycemic episodes requiring D50 pushes -Will continue to monitor BGM and provided D50 pushes as needed. -ISS : #BPH -Patient on Tamsulosin 0.4mg daily GI: #Peptic Ulcer Disease: History of mesh according to family and had Endoscopy two months. Was given medications according to patients daughter and completed course. - on PPI FEN -Electrolytes Repleted as needed. -Continue PEG tube feeds. PPX: - Eliquis - Protonix Disposition: Stable for transfer to the floor. Visit type - Emergency Visit Emergency Visit: No - New Patient This patient is new to me today: No - Critical Care Critical Care patient: Yes Total Critical Care Time (in minutes): 35 Critical Care Statement: The care of this patient involved high complexity decision making to prevent further life threatening deterioration of the patient 's condition and/or to evaluate & treat vital organ system(s) failure or risk of failure.
[2017-11-17] MEDS: AMINO ACIDS/PROTEIN HYDROLYS 30 ML LIQUID.PKT PO SCH ×2 (09:11→16:48)
[2017-11-17] MEDS: RANITIDINE HCL 150 MG TABLET (FP) PO SCH (09:12)
[2017-11-17] MEDS: predniSONE 20 MG TABLET (UD) PO SCH (09:12)
[2017-11-17] MEDS: PANTOPRAZOLE SODIUM 40 MG VIAL IVPUSH SCH (09:13)
[2017-11-17] MEDS ORDERED: PT OWN MED DRAWER 7, Y5N ONE (09:15)
[2017-11-17] MEDS: APIXABAN 5 MG TABLET PO SCH ×2 (09:20→21:52)
[2017-11-17] MEDS: ROFLUMILAST 500 MCG TABLET NGT SCH (09:20)
[2017-11-17] MEDS: LYTES/YERBA SANTA 240 ML BOTTLE MM SCH (11:37)
[2017-11-17] MEDS: MUPIROCIN 2% TOPICAL OINTMENT FOR DECOLONIZATION NS SCH (11:37)
[2017-11-17] MEDS: INSULIN SLIDING SCALE (NOVOLOG) 1 VIAL SQ SCH ×3 (11:37→22:00)
--- NOTE | 2017-11-17 11:40 | PN ---
Teaching Attending Note Name of Resident: Evans Marie ATTENDING PHYSICIAN STATEMENT I saw and evaluated the patient. I reviewed the resident's note and discussed the case with the resident. I agree with the resident's findings and plan as documented. SUBJECTIVE: Patient seen and examined in the ICU. Awake and alert on AC Mode of vent. Vent settings adjusted to address breath stacking. I:E improved to 1:4. Appears more comfortable. CXR: No gross change or acute process OBJECTIVE: Intake & Output 11/14/17 11/15/17 11/16/17 11/17/17 23:59 23:59 23:59 23:59 Intake Total 2266.8 1640 4278 1674 Output Total 700 700 350 100 Balance 1566.8 940 3928 1574 Weight 90 lb 2.705 oz 98 lb 5 oz 96 lb 9 oz 95 lb 14.417 oz Last Vital Signs Temp Pulse Resp BP Pulse Ox 98.7 F 88 31 H 139/73 99 11/17/17 05:47 11/17/17 05:47 11/17/17 09:00 11/17/17 05:47 11/17/17 08:00 Active Medications Acetaminophen (Tylenol -) 650 mg PO Q6H PRN PRN Reason: FEVER Last Admin: 11/16/17 19:54 Dose: 650 mg Acetaminophen (Ofirmev Injection -) 1,000 mg IVPB Q6H PRN PRN Reason: FEVER Albuterol/Ipratropium (Duoneb -) 1 amp NEB RQID [facility] BEDS AT [facility] Last Admin: 11/17/17 08:21 Dose: 1 amp Amino Acids (Prosource No Carb Liquid Pkt) 30 ml PO BID@0800,1730 [facility]S [facility] 234 BEDS AT [facility] Last Admin: 11/17/17 09:11 Dose: 30 ml Apixaban (Eliquis -) 5 mg PO BID [facility]S [facility] 234 BEDS [facility] Last Admin: 11/17/17 09:20 Dose: 5 mg Artificial Tears (Artificial Tears Ointment -) 1 applic OU HS [facility] 234 BEDS [facility] Last Admin: 11/16/17 22:32 Dose: 1 applic Chlorhexidine Gluconate (Hibiclens For Decolonization -) 1 applic TP HS [facility]S [facility]CLUDE 234 BEDS [facility] Last Admin: 11/16/17 21:40 Dose: 1 applic Propofol (Diprivan -) 1,000,000 mcg in 100 mls @ 1.96 mls/hr IVPB TITR SONAL; 5 MCG/KG/MIN PRN Reason: Protocol Last Admin: 11/16/17 21:47 Dose: Not Given Sodium Chloride (1/2 Normal Saline) 1,000 mls @ 42 mls/hr IV ASDIR COUNTS INCLUDE 234 BEDS AT [facility] Last Admin: 11/16/17 16:00 Dose: 42 mls/hr Piperacillin/Tazobactam/Dextrose (Zosyn 2.25gm Ivpb (Premix)) 2.25 gm in 50 mls @ 100 mls/hr IVPB Q8H-IV SONAL PRN Reason: Protocol Last Admin: 11/17/17 09:11 Dose: 100 mls/hr Insulin Aspart (Novolog Vial Sliding Scale -) 1 vial SQ ACHS [facility]ONAL PRN Reason: Protocol Last Admin: 11/17/17 11:37 Dose: Not Given Insulin Detemir (Levemir Vial) 10 units SQ BID@0700,2200 COUNTS [facility]CLUDE 234 BEDS AT [facility] Last Admin: 11/17/17 06:01 Dose: 10 units Metoprolol Tartrate (Lopressor Injection -) 5 mg IVPUSH Q4H PRN PRN Reason: HYPERTENSION Last Admin: 11/14/17 21:39 Dose: 5 mg Mupirocin (Bactroban Ointment (For Decolonization) -) 1 applic NS BID [facility]S [facility]CLUDE 234 BEDS [facility] Stop: 11/18/17 21:59 Last Admin: 11/17/17 11:37 Dose: 1 applic Pantoprazole Sodium (Protonix Iv) 40 mg IVPUSH DAILY [facility]S INCLUDE 234 BEDS AT [facility] Last Admin: 11/17/17 09:13 Dose: 40 mg Prednisone (Deltasone -) 40 mg PO DAILY [facility]S [facility]CLUDE 234 BEDS [facility] Last Admin: 11/17/17 09:12 Dose: 40 mg Quetiapine Fumarate (Seroquel -) 25 mg PO HS [facility]S INCLUDE 234 BEDS [facility] Last Admin: 11/16/17 21:39 Dose: 25 mg Ranitidine HCl (Zantac -) 150 mg PO DAILY [facility]S [facility]CLUDE 234 BEDS [facility] Last Admin: 11/17/17 09:12 Dose: 150 mg Roflumilast (Daliresp -) 500 mcg NGT DAILY [facility]S [facility]CLUDE 234 BEDS [facility] Last Admin: 11/17/17 09:20 Dose: 500 mcg Saliva Substitute (Mouthkote Solution -) 1 applic MM DAILY [facility] 234 BEDS [facility] Last Admin: 11/17/17 11:37 Dose: 1 applic Gen: vented, Awake and alert Heart: RRR Lung: scattered rhonchi, no active wheeze noted Abd: soft, nontender Ext: no edema Laboratory Results - last 24 hr 11/12/17 11/12/17 11/12/17 06:59 12:49 21:33 WBC RBC Hgb Hct MCV MCH MCHC RDW Plt Count MPV Neutrophils % Lymphocytes % Monocytes % Eosinophils % Basophils % Puncture Site ABG pH ABG pCO2 at Pt Temp ABG pO2 at Pt Temp ABG HCO3 ABG O2 Sat (Measured) ABG O2 Content ABG Base Excess Dionte Test Oxygen Flow Rate Vent Mode Vent Rate PEEP Sodium Potassium Chloride Carbon Dioxide Anion Gap BUN Creatinine Creat Clearance w eGFR POC Glucometer 322.01200 323.11262 271.11812 Random Glucose Calcium Phosphorus Magnesium Total Bilirubin AST ALT Alkaline Phosphatase Total Protein Albumin 11/13/17 11/13/17 11/16/17 05:58 11:33 11:41 WBC RBC Hgb Hct MCV MCH MCHC RDW Plt Count MPV Neutrophils % Lymphocytes % Monocytes % Eosinophils % Basophils % Puncture Site ABG pH ABG pCO2 at Pt Temp ABG pO2 at Pt Temp ABG HCO3 ABG O2 Sat (Measured) ABG O2 Content ABG Base Excess Dionte Test Oxygen Flow Rate Vent Mode Vent Rate PEEP Sodium Potassium Chloride Carbon Dioxide Anion Gap BUN Creatinine Creat Clearance w eGFR POC Glucometer 223.06370 > 400 195.07422 Random Glucose Calcium Phosphorus Magnesium Total Bilirubin AST ALT Alkaline Phosphatase Total Protein Albumin 11/16/17 11/16/17 11/17/17 18:23 23:15 05:22 WBC RBC Hgb Hct MCV MCH MCHC RDW Plt Count MPV Neutrophils % Lymphocytes % Monocytes % Eosinophils % Basophils % Puncture Site ABG pH ABG pCO2 at Pt Temp ABG pO2 at Pt Temp ABG HCO3 ABG O2 Sat (Measured) ABG O2 Content ABG Base Excess Dionte Test Oxygen Flow Rate Vent Mode Vent Rate PEEP Sodium Potassium Chloride Carbon Dioxide Anion Gap BUN Creatinine Creat Clearance w eGFR POC Glucometer 198.95601 165.15502 Random Glucose 401 H* Calcium Phosphorus Magnesium Total Bilirubin AST ALT Alkaline Phosphatase Total Protein Albumin 11/17/17 11/17/17 11/17/17 06:00 06:30 06:30 WBC 11.0 H RBC 2.67 L Hgb 8.6 L Hct 27.3 L MCV 102.5 H MCH 32.2 MCHC 31.4 L RDW 17.1 H Plt Count 182 MPV 11.8 H Neutrophils % 83.5 H Lymphocytes % 7.8 L Monocytes % 7.6 Eosinophils % 0.4 Basophils % 0.7 D Puncture Site Left radial ABG pH 7.35 ABG pCO2 at Pt Temp 67.6 H* D ABG pO2 at Pt Temp 131.0 H D ABG HCO3 36.6 H ABG O2 Sat (Measured) 99.3 H ABG O2 Content 11.7 L ABG Base Excess 10.0 H Dionte Test Positive Oxygen Flow Rate 70% Vent Mode A/c Vent Rate 18 PEEP 8.0 Sodium 150 H Potassium 3.3 L Chloride 109 H Carbon Dioxide 38 H Anion Gap 3 L BUN 57 H D Creatinine 1.4 H D Creat Clearance w eGFR 51.18 POC Glucometer Random Glucose 112 H D Calcium 8.3 L Phosphorus 3.2 D Magnesium 2.4 Total Bilirubin 0.3 D AST 16 D ALT 15 Alkaline Phosphatase 101 Total Protein 7.3 Albumin 2.2 L Problem List - Problems (1) Acute respiratory failure with hypoxia Code(s): J96.01 - ACUTE RESPIRATORY FAILURE WITH HYPOXIA (2) Pneumonia Code(s): J18.9 - PNEUMONIA, UNSPECIFIED ORGANISM (3) Diabetes Code(s): E11.9 - TYPE 2 DIABETES MELLITUS WITHOUT COMPLICATIONS ASSESSMENT AND PLAN: Acute Hypoxic Respiratory Failure s/p Tracheostomy Pneumonia Sepsis Interstitial Lung Disease Acute Diastolic Heart Failure improved Acute Kidney Injury Lactic Acidosis resolved DM RLE DVT - ABX per ID - monitor urine output, creatinine - Free water - prednisone - anxiolytics, seroquel qHS - enteral feeds - continue anticoagulation - swallow evaluation - taper FiO2 to keep SpO2 >90% - spontaneous breathing trials as tolerated - DVT/GI prophylaxis - Vent floor Dr Souza Critical care time spent in reviewing chart, evaluating patient and formulating plan 35 min
--- NOTE | 2017-11-17 12:35 | PN ---
Progress Note (short form) - Note Progress Note: Patient seen and examined conmfortable denies any complaints Last Vital Signs Temp Pulse Resp BP Pulse Ox 98.4 F 95 H 30 H 138/60 99 11/17/17 10:00 11/17/17 12:00 11/17/17 12:00 11/17/17 12:00 11/17/17 08:00 trach Cor: RSR, No murmurs, No gallops Lungs: Clear to P&A Abd: Soft, Normal bowel sounds, Ext:No significant edema Abnormal Lab Results 11/16/17 11/17/17 11/17/17 23:15 06:00 06:30 WBC 11.0 H RBC 2.67 L Hgb 8.6 L Hct 27.3 L MCV 102.5 H MCHC 31.4 L RDW 17.1 H MPV 11.8 H Neutrophils % 83.5 H Lymphocytes % 7.8 L ABG pCO2 at Pt Temp 67.6 H* D ABG pO2 at Pt Temp 131.0 H D ABG HCO3 36.6 H ABG O2 Sat (Measured) 99.3 H ABG O2 Content 11.7 L ABG Base Excess 10.0 H Sodium Potassium Chloride Carbon Dioxide Anion Gap BUN Creatinine Random Glucose 401 H* Calcium Albumin 11/17/17 06:30 WBC RBC Hgb Hct MCV MCHC RDW MPV Neutrophils % Lymphocytes % ABG pCO2 at Pt Temp ABG pO2 at Pt Temp ABG HCO3 ABG O2 Sat (Measured) ABG O2 Content ABG Base Excess Sodium 150 H Potassium 3.3 L Chloride 109 H Carbon Dioxide 38 H Anion Gap 3 L BUN 57 H D Creatinine 1.4 H D Random Glucose 112 H D Calcium 8.3 L Albumin 2.2 L Active Medications Generic Name Dose Route Start Last Admin Trade Name Freq PRN Reason Stop Dose Admin Acetaminophen 650 mg 11/13/17 19:10 11/16/17 19:54 Tylenol - PO 650 mg Q6H PRN Administration FEVER Acetaminophen 1,000 mg 11/13/17 19:10 Ofirmev Injection - IVPB Q6H PRN FEVER Albuterol/Ipratropium 1 amp 11/13/17 20:00 11/17/17 11:40 Duoneb - NEB 1 amp RQID SONAL Administration Amino Acids 30 ml 11/14/17 17:30 11/17/17 09:11 Prosource No Carb Liquid Pkt PO 30 ml BID@0800,1730 SONAL Administration Apixaban 5 mg 11/13/17 22:00 11/17/17 09:20 Eliquis - PO 5 mg BID SONAL Administration Artificial Tears 1 applic 11/13/17 22:00 11/16/17 22:32 Artificial Tears Ointment - OU 1 applic HS SONAL Administration Chlorhexidine Gluconate 1 applic 11/13/17 22:00 11/16/17 21:40 Hibiclens For Decolonization - TP 1 applic HS SONAL Administration Propofol 1,000,000 mcg in 100 mls @ 1.96 mls/hr 11/13/17 19:30 11/16/17 21:47 Diprivan - IVPB Not Given TITR SONAL Protocol 5 MCG/KG/MIN Sodium Chloride 1,000 mls @ 42 mls/hr 11/15/17 13:15 11/16/17 16:00 1/2 Normal Saline IV 42 mls/hr ASDIR SONAL Administration Piperacillin/Tazobactam/Dextrose 2.25 gm in 50 mls @ 100 mls/hr 11/15/17 18: 00 11/17/17 09:11 Zosyn 2.25gm Ivpb (Premix) IVPB 100 mls/hr Q8H-IV SONAL Administration Protocol Insulin Aspart 1 vial 11/13/17 22:00 11/17/17 11:37 Novolog Vial Sliding Scale - SQ Not Given ACHS SONAL Protocol Insulin Detemir 10 units 11/16/17 11:37 11/17/17 06:01 Levemir Vial SQ 10 units BID@0700,2200 SONAL Administration Metoprolol Tartrate 5 mg 11/13/17 19:10 11/14/17 21:39 Lopressor Injection - IVPUSH 5 mg Q4H PRN Administration HYPERTENSION Mupirocin 1 applic 11/13/17 22:00 11/17/17 11:37 Bactroban Ointment (For Decolonization) - NS 11/18/17 21:59 1 applic BID SONAL Administration Pantoprazole Sodium 40 mg 11/14/17 12:00 11/17/17 09:13 Protonix Iv IVPUSH 40 mg DAILY SONAL Administration Prednisone 40 mg 11/14/17 10:00 11/17/17 09:12 Deltasone - PO 40 mg DAILY SONAL Administration Quetiapine Fumarate 25 mg 11/15/17 22:00 11/16/17 21:39 Seroquel - PO 25 mg HS SONAL Administration Ranitidine HCl 150 mg 11/14/17 10:00 11/17/17 09:12 Zantac - PO 150 mg DAILY SONAL Administration Roflumilast 500 mcg 11/14/17 10:00 11/17/17 09:20 Daliresp - NGT 500 mcg DAILY SONAL Administration Saliva Substitute 1 applic 11/14/17 10:00 11/17/17 11:37 Mouthkote Solution - MM 1 applic DAILY SONAL Administration A/P 62 y/o with interstitial lung disease, worsening resp. status, RLE DVT acute Hypoxic Respiratory Failure s/p Tracheostomy s/p pneumonia,sepsis Interstitial Lung Disease Acute Diastolic Heart Failure Acute Kidney Injury DM RLE DVT continue eliquis/broad spectrum antibiotics
[2017-11-17] MEDS: SODIUM CHLORIDE 0.45% 1,000 ML IV SCH ×2 (13:55→21:52)
--- NOTE | 2017-11-17 16:21 | PN ---
Progress Note, Physician History of Present Illness: Pt seen and examined at bedside. He is awake and appears comfortable. - Current Medication List Current Medications: Active Medications Acetaminophen (Tylenol -) 650 mg PO Q6H PRN PRN Reason: FEVER Last Admin: 11/16/17 19:54 Dose: 650 mg Acetaminophen (Ofirmev Injection -) 1,000 mg IVPB Q6H PRN PRN Reason: FEVER Albuterol/Ipratropium (Duoneb -) 1 amp NEB RQID [facility] Last Admin: 11/17/17 11:40 Dose: 1 amp Amino Acids (Prosource No Carb Liquid Pkt) 30 ml PO BID@0800,1730 [facility] Last Admin: 11/17/17 09:11 Dose: 30 ml Apixaban (Eliquis -) 5 mg PO BID [facility] Last Admin: 11/17/17 09:20 Dose: 5 mg Artificial Tears (Artificial Tears Ointment -) 1 applic OU HS [facility] Last Admin: 11/16/17 22:32 Dose: 1 applic Chlorhexidine Gluconate (Hibiclens For Decolonization -) 1 applic TP HS [facility] Last Admin: 11/16/17 21:40 Dose: 1 applic Propofol (Diprivan -) 1,000,000 mcg in 100 mls @ 1.96 mls/hr IVPB TITR SONAL; 5 MCG/KG/MIN PRN Reason: Protocol Last Admin: 11/16/17 21:47 Dose: Not Given Sodium Chloride (1/2 Normal Saline) 1,000 mls @ 42 mls/hr IV ASDIR [facility] Last Admin: 11/16/17 16:00 Dose: 42 mls/hr Piperacillin/Tazobactam/Dextrose (Zosyn 2.25gm Ivpb (Premix)) 2.25 gm in 50 mls @ 100 mls/hr IVPB Q8H-IV [facility] PRN Reason: Protocol Last Admin: 11/17/17 09:11 Dose: 100 mls/hr Insulin Aspart (Novolog Vial Sliding Scale -) 1 vial SQ ACHS [facility] PRN Reason: Protocol Last Admin: 11/17/17 11:37 Dose: Not Given Insulin Detemir (Levemir Vial) 10 units SQ BID@0700,2200 [facility] Last Admin: 11/17/17 06:01 Dose: 10 units Metoprolol Tartrate (Lopressor Injection -) 5 mg IVPUSH Q4H PRN PRN Reason: HYPERTENSION Last Admin: 11/14/17 21:39 Dose: 5 mg Mupirocin (Bactroban Ointment (For Decolonization) -) 1 applic NS BID [facility] Stop: 11/18/17 21:59 Last Admin: 11/17/17 11:37 Dose: 1 applic Pantoprazole Sodium (Protonix Iv) 40 mg IVPUSH DAILY [facility] Last Admin: 11/17/17 09:13 Dose: 40 mg Prednisone (Deltasone -) 40 mg PO DAILY [facility] Last Admin: 11/17/17 09:12 Dose: 40 mg Quetiapine Fumarate (Seroquel -) 25 mg PO HS [facility] Last Admin: 11/16/17 21:39 Dose: 25 mg Ranitidine HCl (Zantac -) 150 mg PO DAILY [facility] Last Admin: 11/17/17 09:12 Dose: 150 mg Roflumilast (Daliresp -) 500 mcg NGT DAILY [facility] Last Admin: 11/17/17 09:20 Dose: 500 mcg Saliva Substitute (Mouthkote Solution -) 1 applic MM DAILY [facility] Last Admin: 11/17/17 11:37 Dose: 1 applic - Objective Vital Signs: Vital Signs Temperature 98.4 F 11/17/17 10:00 Pulse Rate 95 H 11/17/17 12:00 Respiratory Rate 29 H 11/17/17 13:45 Blood Pressure 138/60 11/17/17 12:00 O2 Sat by Pulse Oximetry (%) 99 11/17/17 08:00 Constitutional: Yes: Calm Eyes: Yes: Conjunctiva Clear HENT: Yes: Atraumatic Neck: Yes: Other (trache) Cardiovascular: Yes: S1, S2 Respiratory: Yes: Mechanically Ventilated Gastrointestinal: Yes: Soft, Other (peg) Genitourinary: Yes: Other (external catheter) Musculoskeletal: Yes: Muscle Weakness Edema: No Neurological: Yes: Oriented Psychiatric: Yes: Oriented Labs: CBC, BMP 11/17/17 06:30 11/17/17 06:30 INR, PTT INR 1.02 (0.82-1.09) 11/09/17 05:50 - ....Imaging Chest X-ray: Report Reviewed Problem List - Problems (1) Hypernatremia Code(s): E87.0 - HYPEROSMOLALITY AND HYPERNATREMIA (2) MIRLANDE (acute kidney injury) Code(s): N17.9 - ACUTE KIDNEY FAILURE, UNSPECIFIED (3) Acute respiratory failure with hypoxia Code(s): J96.01 - ACUTE RESPIRATORY FAILURE WITH HYPOXIA (4) Diabetes Code(s): E11.9 - TYPE 2 DIABETES MELLITUS WITHOUT COMPLICATIONS (5) Failure to thrive Code(s): JDK2201 - Assessment/Plan Current Medications Generic Name Dose Route Start Last Admin Trade Name Freq PRN Reason Stop Dose Admin Acetaminophen 650 mg 11/13/17 19:10 11/16/17 19:54 Tylenol - PO 650 mg Q6H PRN Administration FEVER Acetaminophen 1,000 mg 11/13/17 19:10 Ofirmev Injection - IVPB Q6H PRN FEVER Albuterol/Ipratropium 1 amp 11/13/17 20:00 11/17/17 11:40 Duoneb - NEB 1 amp RQID SONAL Administration Amino Acids 30 ml 11/14/17 17:30 11/17/17 09:11 Prosource No Carb Liquid Pkt PO 30 ml BID@0800,1730 SONAL Administration Apixaban 5 mg 11/13/17 22:00 11/17/17 09:20 Eliquis - PO 5 mg BID SONAL Administration Artificial Tears 1 applic 11/13/17 22:00 11/16/17 22:32 Artificial Tears Ointment - OU 1 applic HS SONAL Administration Chlorhexidine Gluconate 1 applic 11/13/17 22:00 11/16/17 21:40 Hibiclens For Decolonization - TP 1 applic HS SONAL Administration Propofol 1,000,000 mcg in 100 mls @ 1.96 mls/hr 11/13/17 19:30 11/16/17 21:47 Diprivan - IVPB Not Given TITR SONAL Protocol 5 MCG/KG/MIN Sodium Chloride 1,000 mls @ 42 mls/hr 11/15/17 13:15 11/16/17 16:00 1/2 Normal Saline IV 42 mls/hr ASDIR SONAL Administration Piperacillin/Tazobactam/Dextrose 2.25 gm in 50 mls @ 100 mls/hr 11/15/17 18: 00 11/17/17 09:11 Zosyn 2.25gm Ivpb (Premix) IVPB 100 mls/hr Q8H-IV SONAL Administration Protocol Insulin Aspart 1 vial 11/13/17 22:00 11/17/17 11:37 Novolog Vial Sliding Scale - SQ Not Given ACHS SONAL Protocol Insulin Detemir 10 units 11/16/17 11:37 11/17/17 06:01 Levemir Vial SQ 10 units BID@0700,2200 SONAL Administration Metoprolol Tartrate 5 mg 11/13/17 19:10 11/14/17 21:39 Lopressor Injection - IVPUSH 5 mg Q4H PRN Administration HYPERTENSION Mupirocin 1 applic 11/13/17 22:00 11/17/17 11:37 Bactroban Ointment (For Decolonization) - NS 11/18/17 21:59 1 applic BID SONAL Administration Pantoprazole Sodium 40 mg 11/14/17 12:00 11/17/17 09:13 Protonix Iv IVPUSH 40 mg DAILY SONAL Administration Prednisone 40 mg 11/14/17 10:00 11/17/17 09:12 Deltasone - PO 40 mg DAILY SONAL Administration Quetiapine Fumarate 25 mg 11/15/17 22:00 11/16/17 21:39 Seroquel - PO 25 mg HS SONAL Administration Ranitidine HCl 150 mg 11/14/17 10:00 11/17/17 09:12 Zantac - PO 150 mg DAILY SONAL Administration Roflumilast 500 mcg 11/14/17 10:00 11/17/17 09:20 Daliresp - NGT 500 mcg DAILY SONAL Administration Saliva Substitute 1 applic 11/14/17 10:00 11/17/17 11:37 Mouthkote Solution - MM 1 applic DAILY SONAL Administration Impression 1. MIRLANDE 2. hypernatremia 3. chronic resp failure s/p trache 4. s/p trache 5. s/p peg 6. sepsis 7. interstitial lung disease 8. chf diastolic 9. DM 10. lactic acidosis 11. PNA Plan - renal function continues to improve - repeat labs in am - cont with free water with feeds - monitor glucose - vent support - pulm input appreciated - cont ICU care Dr Gan
[2017-11-17] MEDS ORDERED: ACETAMINOPHEN 1000 MG/100 ML VIAL (NON FORMULARY) IVPB PRN (18:18)
[2017-11-17] MEDS ORDERED: PROPOFOL 1,000,000 MCG/100 ML VIAL IVPB SCH (18:18)
[2017-11-17] MEDS ORDERED: ROCURONIUM BROMIDE 50 MG/5 ML VIAL IVPUSH ONE (18:18)
[2017-11-17] MEDS ORDERED: ACETAMINOPHEN 325 MG TABLET (FP) PO PRN (18:18)
[2017-11-17] MEDS ORDERED: METOPROLOL TARTRATE 5 MG/5 ML VIAL IVPUSH PRN (18:18)
--- NOTE | 2017-11-17 19:02 | PN ---
Teaching Attending Note Name of Resident: Dylon Reeves ATTENDING PHYSICIAN STATEMENT Time of evaluation: 12;20 PM I saw and evaluated the patient. I reviewed the resident's note and discussed the case with the resident. I agree with the resident's findings and plan as documented. SUBJECTIVE: Patient seen and examined. no complaints. OBJECTIVE: Vital Signs Period Temp Pulse Resp BP Sys/Sutton Pulse Ox Last 24 Hr 98.4 F-98.7 F 88-120 19-91 120-163/54-74 99-99 Intake & Output 11/14/17 11/15/17 11/16/17 11/17/17 23:59 23:59 23:59 23:59 Intake Total 2266.8 1640 4278 3180 Output Total 700 700 350 200 Balance 1566.8 940 3928 2980 Weight 90 lb 2.705 oz 98 lb 5 oz 96 lb 9 oz 95 lb 14.417 oz general: less tachypneic Chest: bilateral rales unchanged Abdomen: scaphoid, NT extremities: no edema Home Medication List Medication Instructions Recorded Confirmed Type Glipizide [Glucotrol Xl] 0 mg PO ASDIR 10/17/17 10/17/17 History Metformin HCl 0 mg PO ASDIR 10/17/17 10/17/17 History Tamsulosin HCl 0.4 mg PO DAILY 10/17/17 10/17/17 History Active Medications Generic Name Dose Route Start Last Admin Trade Name Freq PRN Reason Stop Dose Admin Acetaminophen 650 mg 11/17/17 18:18 Tylenol - PO Q6H PRN FEVER Acetaminophen 1,000 mg 11/17/17 18:18 Ofirmev Injection - IVPB Q6H PRN FEVER Albuterol/Ipratropium 1 amp 11/17/17 20:00 Duoneb - NEB RQID SONAL Amino Acids 30 ml 11/18/17 08:00 Prosource No Carb Liquid Pkt PO BID@0800,1730 SONAL Apixaban 5 mg 11/17/17 22:00 Eliquis - PO BID SONAL Artificial Tears 1 applic 11/17/17 22:00 Artificial Tears Ointment - OU HS SONAL Sodium Chloride 1,000 mls @ 42 mls/hr 11/17/17 18:18 1/2 Normal Saline IV ASDIR SONAL Piperacillin/Tazobactam/Dextrose 2.25 gm in 50 mls @ 100 mls/hr 11/18/17 02: 00 Zosyn 2.25gm Ivpb (Premix) IVPB Q8H-IV [facility] Protocol Insulin Aspart 1 vial 11/17/17 22:00 Novolog Vial Sliding Scale - SQ ACHS [facility] Protocol Insulin Detemir 10 units 11/17/17 22:00 Levemir Vial SQ BID@0700,2200 [facility] Metoprolol Tartrate 5 mg 11/17/17 18:18 Lopressor Injection - IVPUSH Q4H PRN HYPERTENSION Pantoprazole Sodium 40 mg 11/18/17 10:00 Protonix Iv IVPUSH DAILY SONAL Prednisone 40 mg 11/18/17 10:00 Deltasone - PO DAILY SONAL Quetiapine Fumarate 25 mg 11/17/17 22:00 Seroquel - PO HS [facility] Ranitidine HCl 150 mg 11/18/17 10:00 Zantac - PO DAILY [facility] Roflumilast 500 mcg 11/18/17 10:00 Daliresp - NGT DAILY [facility] Saliva Substitute 1 applic 11/18/17 10:00 Mouthkote Solution - MM DAILY [facility] Laboratory Results - last 24 hr 11/12/17 11/12/17 11/12/17 06:59 12:49 21:33 WBC RBC Hgb Hct MCV MCH MCHC RDW Plt Count MPV Neutrophils % Lymphocytes % Monocytes % Eosinophils % Basophils % Puncture Site ABG pH ABG pCO2 at Pt Temp ABG pO2 at Pt Temp ABG HCO3 ABG O2 Sat (Measured) ABG O2 Content ABG Base Excess Dionte Test Oxygen Flow Rate Vent Mode Vent Rate PEEP Sodium Potassium Chloride Carbon Dioxide Anion Gap BUN Creatinine Creat Clearance w eGFR POC Glucometer 322.20291 323.08723 271.33125 Random Glucose Calcium Phosphorus Magnesium Total Bilirubin AST ALT Alkaline Phosphatase Total Protein Albumin 11/13/17 11/13/17 11/16/17 05:58 11:33 18:23 WBC RBC Hgb Hct MCV MCH MCHC RDW Plt Count MPV Neutrophils % Lymphocytes % Monocytes % Eosinophils % Basophils % Puncture Site ABG pH ABG pCO2 at Pt Temp ABG pO2 at Pt Temp ABG HCO3 ABG O2 Sat (Measured) ABG O2 Content ABG Base Excess Dionte Test Oxygen Flow Rate Vent Mode Vent Rate PEEP Sodium Potassium Chloride Carbon Dioxide Anion Gap BUN Creatinine Creat Clearance w eGFR POC Glucometer 223.00751 > 400 198.16911 Random Glucose Calcium Phosphorus Magnesium Total Bilirubin AST ALT Alkaline Phosphatase Total Protein Albumin 11/16/17 11/17/17 11/17/17 23:15 05:22 06:00 WBC RBC Hgb Hct MCV MCH MCHC RDW Plt Count MPV Neutrophils % Lymphocytes % Monocytes % Eosinophils % Basophils % Puncture Site Left radial ABG pH 7.35 ABG pCO2 at Pt Temp 67.6 H* D ABG pO2 at Pt Temp 131.0 H D ABG HCO3 36.6 H ABG O2 Sat (Measured) 99.3 H ABG O2 Content 11.7 L ABG Base Excess 10.0 H Dionte Test Positive Oxygen Flow Rate 70% Vent Mode A/c Vent Rate 18 PEEP 8.0 Sodium Potassium Chloride Carbon Dioxide Anion Gap BUN Creatinine Creat Clearance w eGFR POC Glucometer 165.04251 Random Glucose 401 H* Calcium Phosphorus Magnesium Total Bilirubin AST ALT Alkaline Phosphatase Total Protein Albumin 11/17/17 11/17/17 11/17/17 06:30 06:30 16:43 WBC 11.0 H RBC 2.67 L Hgb 8.6 L Hct 27.3 L MCV 102.5 H MCH 32.2 MCHC 31.4 L RDW 17.1 H Plt Count 182 MPV 11.8 H Neutrophils % 83.5 H Lymphocytes % 7.8 L Monocytes % 7.6 Eosinophils % 0.4 Basophils % 0.7 D Puncture Site ABG pH ABG pCO2 at Pt Temp ABG pO2 at Pt Temp ABG HCO3 ABG O2 Sat (Measured) ABG O2 Content ABG Base Excess Dionte Test Oxygen Flow Rate Vent Mode Vent Rate PEEP Sodium 150 H Potassium 3.3 L Chloride 109 H Carbon Dioxide 38 H Anion Gap 3 L BUN 57 H D Creatinine 1.4 H D Creat Clearance w eGFR 51.18 POC Glucometer 114.54957 Random Glucose 112 H D Calcium 8.3 L Phosphorus 3.2 D Magnesium 2.4 Total Bilirubin 0.3 D AST 16 D ALT 15 Alkaline Phosphatase 101 Total Protein 7.3 Albumin 2.2 L Microbiology 11/13/17 17:10 Blood - Peripheral Venous Blood Culture - Preliminary NO GROWTH OBTAINED AFTER 96 HOURS, INCUBATION TO CONTINUE FOR 1 DAYS. 11/14/17 14:30 Sputum - Endotrachea Suction/Ventilator Gram Stain - Final 11/14/17 14:30 Sputum - Endotrachea Suction/Ventilator Sputum Culture - Final Klebsiella Pneumoniae 11/13/17 17:30 Blood - Peripheral Venous Blood Culture - Preliminary NO GROWTH OBTAINED AFTER 72 HOURS, INCUBATION TO CONTINUE FOR 2 DAYS. 11/14/17 22:00 Urine - Urine Clean Catch Urine Culture - Final Yeast Like Organism 11/15/17 11:00 Nasopharyngeal Swab Influenza Types A,B Antigen ([facility]) - Final 11/15/17 11:00 Nasopharyngeal Swab - Final 10/21/17 06:00 Serum Cryptococcal Antigen - Final 10/19/17 19:30 Sputum - Expectorated Gram Stain - Final 10/19/17 19:30 Sputum - Expectorated Sputum Culture - Final NORMAL RESPIRATORY TOYIN 10/17/17 10:10 Blood - Peripheral Venous Blood Culture - Final NO GROWTH AFTER 5 DAYS INCUBATION 10/17/17 10:10 Blood - Peripheral Venous Blood Culture - Final NO GROWTH AFTER 5 DAYS INCUBATION 10/17/17 13:57 Urine - Urine Clean Catch Urine Culture - Final NO GROWTH OBTAINED 10/17/17 13:57 Urine For Antigen Detection Legionella Antigen - Final 10/17/17 13:57 Urine For Antigen Detection Streptococcus pneumoniae Antigen (M - Final 10/17/17 10:25 Nasopharyngeal Swab Influenza Types A,B Antigen ([facility]) - Final 10/17/17 10:25 Nasopharyngeal Swab - Final ASSESSMENT AND PLAN: 62 yo M active smoker, pMHx of NIDDM, PUD, BPH admitted with acute hypoxic respiratory failure, and extensive RLE DVT -Acute hypoxic respiratory failure, suspect from ?ILD with pneumonitis s/p intubation 11/03, trach 11/07, exchanged 11/11 for cuff, now recurrent worsening respiratory failure, suspected aspiration PNA with sepsis -Extensive RLE Acute DVT, s/p IVC filter 10/20, thrombectmy 10/24 - Acute diastolic heart failure -Sepsis on admission, likely from PNA, now recurrent concerns for aspiration PNA -Lactic acidosis, from sepsis vs increased work of breathing, resolved -MIRLANDE on admission from sepsis, now recurrent, ?Sepsis, vs ATN vs r/o obstructive process -Hypernatremia -Thrombocytopenia -Elevated INR -Chest wall and right sided abdominal pain -NIDDM -PUD -BPH -Cachexia/malnutrition Plan: Calmer on seroquel, FIO2 down to 60%, overall looks better. Frequent suctioning. discussed with Dr. Souza, RR on vent decreased and doing well. Trach cuff leak, s/p extended trach placed 11/14 with no further leak. CXR no new infiltrate but ?Aspiration PNA vs pneumonitis. ID input appreciated. zosyn resumed day 5 (prior s/p 7 days of ceftriaxone/azithromycin). Blood cx neg , sputum cx with gm neg bacillus, follow up, Flu swab neg. Abx per ID. Continue prednisone. ?ILD with pneumonitis, unclear etiology, on Eliquis, hold for procedure as indicated. Renal ultrasound/nephrology input/Urine lytes neg. Suspect hypovolumia. Free water flushes to 300ml q4h. Change D5w to 1/2 NS given hyperglycemic, watch out for fluid overload. na/renal function improved. s/p PEG 11/09, resume tube feeds. Follow up speech/swallow eval as able. Intermittent agitation, 2 point restraints as pulls at the vent. Off restraints today, will monitor. Platelets improved. replete lytes prn. Ac 7.4, ISS, hold oral hypoglycemics. Increase levemir to 10 units BID Continue flomax. Nicotine patch MICU monitoring. Total critical care time spent in ICU 35 min.
[2017-11-17] MEDS: MINERAL OIL/PETROLATUM,WHITE 3.5 GM TUBE OU SCH (21:53)
[2017-11-17] MEDS: QUEtiapine FUMARATE 25 MG TABLET (FP) PO SCH (21:53)
[2017-11-17] MEDS ORDERED: MUPIROCIN 2% TOPICAL OINTMENT FOR DECOLONIZATION NS SCH (22:00)
[2017-11-17] MEDS ORDERED: CHLORHEXIDINE GLUCONATE 4% CLEANSER FOR DECOLONIZATION TP SCH (22:00)
[2017-11-18] MEDS: PIPERACILLIN/TAZOB 2.25 GM 2.25 GM/50 ML BAG IVPB SCH ×3 (01:17→17:21)
--- NOTE | 2017-11-18 05:37 | PN ---
Physical Exam: SUBJECTIVE: Patient seen and examined by me this Am - Transferred out of ICU yesterday. No major events overnight. Satting 100% on 70% FiO2. Still tends to desat with movement, agitation down to 93-94%. Per nursing, pulling at trach overnight so placed back on restraints. Pt denies any increased SOB, dyspnea, N/V, abdominal pain, rashes, COLLINS/dizziness, f/c. Endorses mild chest pain with deep inspiration. OBJECTIVE: Vital Signs Intake & Output 11/15/17 11/16/17 11/17/17 11/18/17 23:59 23:59 23:59 23:59 Intake Total 1640 4278 3180 Output Total 700 350 200 Balance 940 3928 2980 Weight 44.594 kg 43.8 kg 43.5 kg Period Temp Pulse Resp BP Sys/Sutton Pulse Ox Last 24 Hr 98.4 F-98.7 F 88-110 15-91 119-163/60-74 95-99 GENERAL: Cachectic man laying in NAD, less agitated. Vented, trach HEAD: Normal with no signs of trauma. Bitemporal wasting EYES: Eye open, fixed. sclera anicteric, conjunctiva clear. No ptosis. ENT: Ears normal, nares patent, oropharynx clear without exudates, trace secretions noted in oropharynx. NECK: Trach collar in place, no drainage, purulence or erythema. Trachea midline , supple. No JVD noted. LUNGS: Mechanical breath sounds. Coarse and fine crackles noted diffusely, BL, worse on L lung base. No wheezes, no accessory muscle use HEART: 2/6 systolic ejection murmur at LUSB. Regular rate and rhythm, S1, S2 without murmur, rub or gallop. ABDOMEN: PEG tube in place, no erythema, drainage or purulence around site. s/w Scaphoid abdomen, hypoactive bowel sounds, no guarding, no rebound, no hepatosplenomegaly, no masses. EXTREMITIES: No edema in LEs. 2+ pulses, warm, well-perfused NEUROLOGICAL: Calm, interactive with interviewer. CN 2-12 intact. 5/5 strength grossly. Sensation preserved in all extremities. PSYCH: Normal mood, normal affect. More energetic today. SKIN: Warm, dry, normal turgor, no rashes or lesions noted Laboratory Results - last 24 hr CBC, BMP 11/18/17 07:00 02/03/18 07:00 11/17/17 06:30 11/17/17 06:30 11/17/17 11/17/17 11/17/17 05:22 06:00 06:30 WBC 11.0 H RBC 2.67 L Hgb 8.6 L Hct 27.3 L MCV 102.5 H MCH 32.2 MCHC 31.4 L RDW 17.1 H Plt Count 182 MPV 11.8 H Neutrophils % 83.5 H Lymphocytes % 7.8 L Monocytes % 7.6 Eosinophils % 0.4 Basophils % 0.7 D Puncture Site Left radial ABG pH 7.35 ABG pCO2 at Pt Temp 67.6 H* D ABG pO2 at Pt Temp 131.0 H D ABG HCO3 36.6 H ABG O2 Sat (Measured) 99.3 H ABG O2 Content 11.7 L ABG Base Excess 10.0 H Dionte Test Positive Oxygen Flow Rate 70% Vent Mode A/c Vent Rate 18 PEEP 8.0 Sodium Potassium Chloride Carbon Dioxide Anion Gap BUN Creatinine Creat Clearance w eGFR POC Glucometer 165.37398 Random Glucose Calcium Phosphorus Magnesium Total Bilirubin AST ALT Alkaline Phosphatase Total Protein Albumin 11/17/17 11/17/17 11/17/17 06:30 16:43 21:56 WBC RBC Hgb Hct MCV MCH MCHC RDW Plt Count MPV Neutrophils % Lymphocytes % Monocytes % Eosinophils % Basophils % Puncture Site ABG pH ABG pCO2 at Pt Temp ABG pO2 at Pt Temp ABG HCO3 ABG O2 Sat (Measured) ABG O2 Content ABG Base Excess Dionte Test Oxygen Flow Rate Vent Mode Vent Rate PEEP Sodium 150 H Potassium 3.3 L Chloride 109 H Carbon Dioxide 38 H Anion Gap 3 L BUN 57 H D Creatinine 1.4 H D Creat Clearance w eGFR 51.18 POC Glucometer 114.09731 341 Random Glucose 112 H D Calcium 8.3 L Phosphorus 3.2 D Magnesium 2.4 Total Bilirubin 0.3 D AST 16 D ALT 15 Alkaline Phosphatase 101 Total Protein 7.3 Albumin 2.2 L Active Medications Generic Name Dose Route Start Last Admin Trade Name Freq PRN Reason Stop Dose Admin Acetaminophen 650 mg 11/17/17 18:18 Tylenol - PO Q6H PRN FEVER Acetaminophen 1,000 mg 11/17/17 18:18 Ofirmev Injection - IVPB Q6H PRN FEVER Albuterol/Ipratropium 1 amp 11/17/17 20:00 11/17/17 20:52 Duoneb - NEB 1 amp RQID SONAL Administration Amino Acids 30 ml 11/18/17 08:00 Prosource No Carb Liquid Pkt PO BID@0800,1730 SONAL Apixaban 5 mg 11/17/17 22:00 11/17/17 21:52 Eliquis - PO 5 mg BID SONAL Administration Artificial Tears 1 applic 11/17/17 22:00 11/17/17 21:53 Artificial Tears Ointment - OU 1 applic HS SONAL Administration Sodium Chloride 1,000 mls @ 42 mls/hr 11/17/17 18:18 11/17/17 21:52 1/2 Normal Saline IV 42 mls/hr ASDIR SONAL Administration Piperacillin/Tazobactam/Dextrose 2.25 gm in 50 mls @ 100 mls/hr 11/18/17 02: 00 11/18/17 01:17 Zosyn 2.25gm Ivpb (Premix) IVPB 100 mls/hr Q8H-IV SONAL Administration Protocol Insulin Aspart 1 vial 11/17/17 22:00 11/17/17 22:00 Novolog Vial Sliding Scale - SQ 6 units ACHS SONAL Administration Protocol Insulin Detemir 10 units 11/17/17 22:00 11/17/17 21:59 Levemir Vial SQ 10 units BID@0700,2200 SONAL Administration Metoprolol Tartrate 5 mg 11/17/17 18:18 Lopressor Injection - IVPUSH Q4H PRN HYPERTENSION Pantoprazole Sodium 40 mg 11/18/17 10:00 Protonix Iv IVPUSH DAILY [facility] Prednisone 40 mg 11/18/17 10:00 Deltasone - PO DAILY [facility] Quetiapine Fumarate 25 mg 11/17/17 22:00 11/17/17 21:53 Seroquel - PO 25 mg HS SONAL Administration Ranitidine HCl 150 mg 11/18/17 10:00 Zantac - PO DAILY [facility] Roflumilast 500 mcg 11/18/17 10:00 Daliresp - NGT DAILY [facility] Saliva Substitute 1 applic 11/18/17 10:00 Mouthkote Solution - MM DAILY [facility] Microbiology 11/13/17 17:30 Blood - Peripheral Venous Blood Culture - Preliminary NO GROWTH OBTAINED AFTER 96 HOURS, INCUBATION TO CONTINUE FOR 1 DAYS. 11/13/17 17:10 Blood - Peripheral Venous Blood Culture - Preliminary NO GROWTH OBTAINED AFTER 96 HOURS, INCUBATION TO CONTINUE FOR 1 DAYS. 11/14/17 14:30 Sputum - Endotrachea Suction/Ventilator Gram Stain - Final 11/14/17 14:30 Sputum - Endotrachea Suction/Ventilator Sputum Culture - Final Klebsiella Pneumoniae 11/14/17 22:00 Urine - Urine Clean Catch Urine Culture - Final Yeast Like Organism 11/15/17 11:00 Nasopharyngeal Swab Influenza Types A,B Antigen ([facility]) - Final 11/15/17 11:00 Nasopharyngeal Swab - Final 10/21/17 06:00 Serum Cryptococcal Antigen - Final 10/19/17 19:30 Sputum - Expectorated Gram Stain - Final 10/19/17 19:30 Sputum - Expectorated Sputum Culture - Final NORMAL RESPIRATORY TOYIN 10/17/17 10:10 Blood - Peripheral Venous Blood Culture - Final NO GROWTH AFTER 5 DAYS INCUBATION 10/17/17 10:10 Blood - Peripheral Venous Blood Culture - Final NO GROWTH AFTER 5 DAYS INCUBATION 10/17/17 13:57 Urine - Urine Clean Catch Urine Culture - Final NO GROWTH OBTAINED 10/17/17 13:57 Urine For Antigen Detection Legionella Antigen - Final 10/17/17 13:57 Urine For Antigen Detection Streptococcus pneumoniae Antigen (M - Final 10/17/17 10:25 Nasopharyngeal Swab Influenza Types A,B Antigen ([facility]) - Final 10/17/17 10:25 Nasopharyngeal Swab - Final Recent imaging: CXR 10/21/17 - Since 10/30/2017, the ARDS pattern has diminished minimally. Follow- up recommended. CT Abdomen 10/31 - The gallbladder demonstrates no definite CT pathology. There is nonspecific minimal to mild intrahepatic biliary tract dilatation. Clinical/ laboratory correlation is suggested as well as with follow-up CT. Dilatation of the main pancreatic duct as noted above. Pancreatic ductal dilatation was also noted on a 2013 ultrasound exam. Several small pancreatic head calcifications are seen suggestive of chronic calcific pancreatitis. No gross mass lesion is identified. Correlate with MRI/MRCP when the patient's clinical condition permits. No CT evidence of acute pancreatitis. Mild acute pancreatitis is frequently not demonstrable on CT or MRI. The partially imaged lower chest demonstrates prominent bilateral interstitial thickening with relative peripheral sparing - ? Noncardiogenic edema, infectious versus noninfectious pneumonitis, hemorrhage. Correlate clinically. This finding may be somewhat increased in comparison to a chest CT exam of 10/20/2017. No pleural effusion is seen. Bibasilar bronchiectasis. There is partial imaging of nonspecific mediastinal lymphadenopathy (as described on chest CT). Prominent atherosclerotic vascular calcifications. Mild to moderate L1 and mild L5 vertebral body compression fractures are noted which appear chronic. No bony retropulsion is seen. The visualized osseous structures appear to be diffusely demineralized. Clinical/laboratory correlation is suggested. Additional evaluation utilizing bone densitometry/DEXA scan may be considered. CXR 11/01 - Since a prior study of 10/31/2017, extensive opacification is identified throughout the lung james with little significant change. This is consistent with ARDS. No pleural effusions have developed. CXR 11/02 - No significant change from prior cxr. Still with BL reticulonodular diffuse opacification. CXR 11/05 - No significant change. BL reticulonodular pattern. CXR 11/06 - No change overall CXR 11/07 - Trach in place. Diffuse BL interstitial and possible alveolar changes. No pneumo or pleural effusions. ekg 11/08 - NSR, Rate 86, QTC 409, LVH, NANCY, no ST/Twave changes CXR 11/08 - No significant interval changes, BL parenchymal reticulonodular infiltrates, ETT tube, NG tube in place CXR 11/09 - no change from prior CXR 11/10 - No change CXR 11/13 - Good placement of ETT tube CXR 11/14 - no significant change Renal U/S 11/14 - Normal kidneys BL. CXR 11/15 - No change CXR 11/16 - R lower lobe opacity with air bronchograms; clinically correlate CXR 11/17 - No change from prior xr. 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 #Acute hypoxic respiratory failure (possibly 2/2 ILD vs Pneumonitis)- s/p trach 11/07 after failed vent wean; trach exchanged 11/11 - Tolerating wean. Decreased RR to 12, as not indicated in ILD - Taper FiO2 as tolerated to maintain SpO2 >90%. Tolerating 60-70% FIO2 overnight, however desats to low 90s when moved. - c/w Prednisone 40mg daily - c/w Roflumilast and Duonebs QID - No SS drainage noted today - Will require wean to 50% FiO2 for placement [place] [facility] - Increase PEG feeds to 70ml/hr by 10ml q6h as tolerated with 25ml flushes; 300ml water flushes every 4 hours - Seroquel 25mg PO qHS for agitation; off restraints overnight as no longer pulling at lines/tubes - 2pt restraints PRN #Leukocytosis, WBC 11-> 18.2 today, no fevers overnight; suspected possible aspiration event; CXR with possible RLL opacity 11/16; no fevers overnight - sputum culture + for legionella, sensitive to zosyn; Urine + for yeast - ID consulted; will f/u recs and adjust abx accordingly - Day 6 of Zosyn for empiric coverage for suspected aspiration PNA; switched to renal dosing 2.25 q8h - trend fever, wbc curve - flu swab negative #hypernatremia, Na 150 -> 149 today: Pre-renal; FeNa 0.3%; likely secondary to hypovolemia - Renal consulted , recs appreciated - free water flushes via PEG tube 300ml q4h - Daily BMP, trend Na - 1/2 NS 42cc/hr, as pt w/ poor glucose control #MIRLANDE - Cr 1.4 today, stable, improving; Likely secondary to dehydration vs. sepsis vs. possible obstruction - Renal U/S nrml - Urine lytes - Renal consult - IVFs - Trend Cr #agitation - repeated attempts to remove trach; -Restrained overnight due to pulling at trach; Restraints prn as needed -cont holding xanax - propofol for sedation #RLE DVT s/p IVC filter 10/20 and thrombectomy 10/24 -c/w Eliquis 5mg BID #Acute on diastolic CHF - Not clinically volume overloaded - c/w hold lasix - No longer requires daily wts #DM (A1c 7.4 on admission); On D5W -BGM -ISS ACHS - Levemir 10u BID as BGM well controlled #BPH - - flomax held #Nicotine dependence - c/w nicotine patch #PPX Eliquis 5mg BID Zantac 150mg daily #FEN: / NS 42cc/hr Daily BMP, trend Na Cont tube feeds Dispo to ICU Discussed with attending, Dr. James Reeves, PGY1 Visit type - Emergency Visit Emergency Visit: Yes ED Registration Date: 10/17/17 Care time: The patient presented to the Emergency Department on the above date and was hospitalized for further evaluation of their emergent condition. - New Patient This patient is new to me today: No - Critical Care Critical Care patient: No - Discharge Referral Referred to [facility] Med P.C.: No
[2017-11-18] MEDS: INSULIN DETEMIR 100 UNITS/ML MDV SQ SCH ×2 (06:03→21:30)
[2017-11-18] MEDS: INSULIN SLIDING SCALE (NOVOLOG) 1 VIAL SQ SCH ×4 (06:03→21:30)
[2017-11-18] MEDS: ALBUTEROL SO4 2.5/IPRATROPIUM 0.5 INH SOL 3 ML VIAL.NEB. NEB SCH ×4 (08:10→20:00)
[2017-11-18 08:34] LABS: HEMATOCRIT 26.7 % (35.4-49); HEMOGLOBIN 8.1 GM/dL (11.7-16.9); MCH 31.2 pg (25.7-33.7); MCHC 30.3 g/dl (32.0-35.9); MEAN CELL VOLUME 103.1 fl (80-96); MEAN PLT VOLUME 11.8 fl (7.5-11.1); PLATELET COUNT 178 K/MM3 (134-434); RBC 2.59 M/mm3 (4.00-5.60); RDW 17.2 % (11.9-15.9); WHITE BLOOD COUNT 18.2 K/mm3 (4.0-10.0)
[2017-11-18] MEDS: AMINO ACIDS/PROTEIN HYDROLYS 30 ML LIQUID.PKT PO SCH ×2 (08:36→17:21)
[2017-11-18 08:48] LABS: ALBUMIN 2.3 g/dl (3.4-5.0); ANION GAP 4 (8-16); BILIRUBIN,TOTAL 0.5 mg/dL (0.2-1.0); BLOOD UREA NITROGEN 50 mg/dL (7-18); CALCIUM 8.2 mg/dL (8.5-10.1); CHLORIDE 109 mmol/L (98-107); CO2 36 mmol/L (21-32); CREATININE 1.4 mg/dL (0.7-1.3); GLUCOSE,RANDOM 219 mg/dL (74-106); MAGNESIUM 2.3 mg/dL (1.8-2.4); PHOSPHOROUS 2.1 mg/dL (2.5-4.9); POTASSIUM 3.5 mmol/L (3.5-5.1); SGOT/AST 13 U/L (15-37); SGPT/ALT 18 U/L (12-78); SODIUM 149 mmol/L (136-145)
[2017-11-18 08:49] LABS: ALK PHOS 116 U/L (45-117)
[2017-11-18] MEDS ORDERED: PT OWN MED DRAWER 7, Y5N ONE ×4 (09:07→21:14)
[2017-11-18] MEDS: RANITIDINE HCL 150 MG TABLET (FP) PO SCH (09:08)
[2017-11-18] MEDS: predniSONE 20 MG TABLET (UD) PO SCH (09:08)
[2017-11-18] MEDS: ROFLUMILAST 500 MCG TABLET NGT SCH (09:09)
[2017-11-18] MEDS: SODIUM CHLORIDE 0.45% 1,000 ML IV SCH ×2 (09:48→18:47)
--- NOTE | 2017-11-18 10:08 | PN ---
Teaching Attending Note Name of Resident: Dylon Reeves ATTENDING PHYSICIAN STATEMENT Time of evaluation: 8:30 AM I saw and evaluated the patient. I reviewed the resident's note and discussed the case with the resident. I agree with the resident's findings and plan as documented. SUBJECTIVE: patient seen and examined, whispers words, denies any new symptoms, agrees to not pulling at trach and PEG. OBJECTIVE: Vital Signs Period Temp Pulse Resp BP Sys/Sutton Pulse Ox Last 24 Hr 98.4 F-98.9 F 91-114 15-91 119-165/60-69 95-99 Intake & Output 11/15/17 11/16/17 11/17/17 11/18/17 23:59 23:59 23:59 23:59 Intake Total 1640 4278 3180 1950 Output Total 700 350 200 Balance 940 3928 2980 1950 Weight 98 lb 5 oz 96 lb 9 oz 95 lb 14.417 oz General: sitting in bed in no acute distress Chest: bilateral rales unchanged Abdomen: soft, scaphoid, NT, ND, positive bowel sounds extremities: no edema CVS:S1S2 mild tachycardia Home Medication List Medication Instructions Recorded Confirmed Type Glipizide [Glucotrol Xl] 0 mg PO ASDIR 10/17/17 10/17/17 History Metformin HCl 0 mg PO ASDIR 10/17/17 10/17/17 History Tamsulosin HCl 0.4 mg PO DAILY 10/17/17 10/17/17 History Active Medications Generic Name Dose Route Start Last Admin Trade Name Freq PRN Reason Stop Dose Admin Acetaminophen 650 mg 11/17/17 18:18 Tylenol - PO Q6H PRN FEVER Acetaminophen 1,000 mg 11/17/17 18:18 Ofirmev Injection - IVPB Q6H PRN FEVER Albuterol/Ipratropium 1 amp 11/17/17 20:00 11/17/17 20:52 Duoneb - NEB 1 amp RQID SONAL Administration Amino Acids 30 ml 11/18/17 08:00 11/18/17 08:36 Prosource No Carb Liquid Pkt PO 30 ml BID@0800,1730 SONAL Administration Apixaban 5 mg 11/17/17 22:00 11/18/17 10:10 Eliquis - PO 5 mg BID SONAL Administration Artificial Tears 1 applic 11/17/17 22:00 11/17/17 21:53 Artificial Tears Ointment - OU 1 applic HS SONAL Administration Sodium Chloride 1,000 mls @ 42 mls/hr 11/17/17 18:18 11/18/17 09:48 1/2 Normal Saline IV 42 mls/hr ASDIR SONAL Administration Piperacillin/Tazobactam/Dextrose 2.25 gm in 50 mls @ 100 mls/hr 11/18/17 02: 00 11/18/17 09:10 Zosyn 2.25gm Ivpb (Premix) IVPB 100 mls/hr Q8H-IV SONAL Administration Protocol Insulin Aspart 1 vial 11/17/17 22:00 11/18/17 06:03 Novolog Vial Sliding Scale - SQ 6 units ACHS SONAL Administration Protocol Insulin Detemir 10 units 11/17/17 22:00 11/18/17 06:03 Levemir Vial SQ 10 units BID@0700,2200 SONAL Administration Metoprolol Tartrate 5 mg 11/17/17 18:18 Lopressor Injection - IVPUSH Q4H PRN HYPERTENSION Pantoprazole Sodium 40 mg 11/18/17 10:00 Protonix Iv IVPUSH DAILY [facility] Prednisone 40 mg 11/18/17 10:00 11/18/17 09:08 Deltasone - PO 40 mg DAILY SONAL Administration Quetiapine Fumarate 25 mg 11/17/17 22:00 11/17/17 21:53 Seroquel - PO 25 mg HS SONAL Administration Ranitidine HCl 150 mg 11/18/17 10:00 11/18/17 09:08 Zantac - PO 150 mg DAILY SONAL Administration Roflumilast 500 mcg 11/18/17 10:00 11/18/17 09:09 Daliresp - NGT 500 mcg DAILY SONAL Administration Saliva Substitute 1 applic 11/18/17 10:00 11/18/17 10:10 Mouthkote Solution - MM 1 applic DAILY SONAL Administration Laboratory Results - last 24 hr 11/17/17 11/17/17 11/18/17 16:43 21:56 05:29 WBC RBC Hgb Hct MCV MCH MCHC RDW Plt Count MPV Neutrophils % Lymphocytes % Sodium Potassium Chloride Carbon Dioxide Anion Gap BUN Creatinine Creat Clearance w eGFR POC Glucometer 114.89306 341 350 Random Glucose Calcium Phosphorus Magnesium Total Bilirubin AST ALT Alkaline Phosphatase Total Protein Albumin 11/18/17 11/18/17 07:00 07:00 WBC 18.2 H D RBC 2.59 L Hgb 8.1 L Hct 26.7 L MCV 103.1 H MCH 31.2 MCHC 30.3 L RDW 17.2 H Plt Count 178 MPV 11.8 H Neutrophils % No Result Required. Lymphocytes % No Result Required. Sodium 149 H Potassium 3.5 Chloride 109 H Carbon Dioxide 36 H Anion Gap 4 L BUN 50 H Creatinine 1.4 H Creat Clearance w eGFR 51.18 POC Glucometer Random Glucose 219 H D Calcium 8.2 L Phosphorus 2.1 L D Magnesium 2.3 Total Bilirubin 0.5 D AST 13 L ALT 18 Alkaline Phosphatase 116 Total Protein 7.0 Albumin 2.3 L Microbiology 11/13/17 17:30 Blood - Peripheral Venous Blood Culture - Preliminary NO GROWTH OBTAINED AFTER 96 HOURS, INCUBATION TO CONTINUE FOR 1 DAYS. 11/13/17 17:10 Blood - Peripheral Venous Blood Culture - Preliminary NO GROWTH OBTAINED AFTER 96 HOURS, INCUBATION TO CONTINUE FOR 1 DAYS. 11/14/17 14:30 Sputum - Endotrachea Suction/Ventilator Gram Stain - Final 11/14/17 14:30 Sputum - Endotrachea Suction/Ventilator Sputum Culture - Final Klebsiella Pneumoniae 11/14/17 22:00 Urine - Urine Clean Catch Urine Culture - Final Yeast Like Organism 11/15/17 11:00 Nasopharyngeal Swab Influenza Types A,B Antigen ([facility]) - Final 11/15/17 11:00 Nasopharyngeal Swab - Final 10/21/17 06:00 Serum Cryptococcal Antigen - Final 10/19/17 19:30 Sputum - Expectorated Gram Stain - Final 10/19/17 19:30 Sputum - Expectorated Sputum Culture - Final NORMAL RESPIRATORY TOYIN 10/17/17 10:10 Blood - Peripheral Venous Blood Culture - Final NO GROWTH AFTER 5 DAYS INCUBATION 10/17/17 10:10 Blood - Peripheral Venous Blood Culture - Final NO GROWTH AFTER 5 DAYS INCUBATION 10/17/17 13:57 Urine - Urine Clean Catch Urine Culture - Final NO GROWTH OBTAINED 10/17/17 13:57 Urine For Antigen Detection Legionella Antigen - Final 10/17/17 13:57 Urine For Antigen Detection Streptococcus pneumoniae Antigen (M - Final 10/17/17 10:25 Nasopharyngeal Swab Influenza Types A,B Antigen ([facility]) - Final 10/17/17 10:25 Nasopharyngeal Swab - Final ASSESSMENT AND PLAN: 62 yo M active smoker, pMHx of NIDDM, PUD, BPH admitted with acute hypoxic respiratory failure, and extensive RLE DVT -Acute hypoxic respiratory failure, suspect from ?ILD with pneumonitis s/p intubation 11/03, trach 11/07, exchanged 11/11 for cuff, now recurrent worsening respiratory failure, suspected aspiration PNA with sepsis -Extensive RLE Acute DVT, s/p IVC filter 10/20, thrombectmy 10/24 - Acute diastolic heart failure -Sepsis on admission, likely from PNA, now recurrent concerns for aspiration PNA -Lactic acidosis, from sepsis vs increased work of breathing, resolved -MIRLANDE on admission from sepsis, now recurrent, ?Sepsis, vs ATN , obstructive process ruled out -Hypernatremia, likely hypovolumic -Thrombocytopenia -Elevated INR -Chest wall and right sided abdominal pain -NIDDM -PUD -BPH -Cachexia/malnutrition Plan: Calmer on seroquel, FIO2 down to 60-70%, overall looks better. Frequent suctioning. RR on vent decreased and doing well. Trach cuff leak, s/p extended trach placed 11/14 with no further leak. CXR no new infiltrate but ?Aspiration PNA vs pneumonitis. ID input appreciated. zosyn resumed day 6 (prior s/p 7 days of ceftriaxone/azithromycin). Blood cx neg , sputum cx with klebsiella, Flu swab neg. Abx per ID. worsening leucocytosis today. Check stool C difficile. Trend CBC and monitor for new fevers. Continue prednisone per pulmonary. ?ILD with pneumonitis, unclear etiology, on Eliquis, hold for procedure as indicated. Renal ultrasound/nephrology input/Urine lytes neg. Suspect hypovolumia. Free water flushes to 300ml q6h. Change D5w to 1/2 NS given hyperglycemia, watch out for fluid overload. na/renal function improved. s/p PEG 11/09, resume tube feeds. titrate up to goal of 70 ml/hr as tolerated. Free water with feeds 25 ml/hr. Follow up speech/swallow eval as able. Intermittent agitation, 2 point restraints as pulls at the vent, usually in the evenings, suspect . Continue seroquel. Platelets improved. Replete lytes prn. Ac 7.4, ISS, hold oral hypoglycemics. Increased levemir to 10 units BID, titrate based on blood sugars. Continue flomax. Nicotine patch MICU monitoring. Plan discussed with nursing.
[2017-11-18] MEDS: APIXABAN 5 MG TABLET PO SCH ×2 (10:10→21:24)
[2017-11-18] MEDS: LYTES/YERBA SANTA 240 ML BOTTLE MM SCH (10:10)
[2017-11-18] MEDS: PANTOPRAZOLE SODIUM 40 MG VIAL IVPUSH SCH (11:05)
--- NOTE | 2017-11-18 12:22 | PN ---
Progress Note (short form) - Note Progress Note: PULMONARY Vented, awake. No fevers recorded. Last Vital Signs Temp Pulse Resp BP Pulse Ox 98.6 F 114 H 32 H 165/67 95 11/18/17 09:00 11/18/17 09:00 11/18/17 11:00 11/18/17 09:00 11/17/17 21:19 Gen: vented, tachypneic Heart: tachycardic, regular Lung: bibasilar rales Abd: soft, nontender Ext: no edema CBC, BMP 11/18/17 07:00 11/18/17 07:00 Active Medications Acetaminophen (Tylenol -) 650 mg PO Q6H PRN PRN Reason: FEVER Acetaminophen (Ofirmev Injection -) 1,000 mg IVPB Q6H PRN PRN Reason: FEVER Albuterol/Ipratropium (Duoneb -) 1 amp NEB RQID [facility] Last Admin: 11/18/17 11:20 Dose: 1 amp Amino Acids (Prosource No Carb Liquid Pkt) 30 ml PO BID@0800,1730 [facility] Last Admin: 11/18/17 08:36 Dose: 30 ml Apixaban (Eliquis -) 5 mg PO BID [facility] Last Admin: 11/18/17 10:10 Dose: 5 mg Artificial Tears (Artificial Tears Ointment -) 1 applic OU HS [facility] Last Admin: 11/17/17 21:53 Dose: 1 applic Sodium Chloride (1/2 Normal Saline) 1,000 mls @ 42 mls/hr IV ASDIR [facility] Last Admin: 11/18/17 09:48 Dose: 42 mls/hr Piperacillin/Tazobactam/Dextrose (Zosyn 2.25gm Ivpb (Premix)) 2.25 gm in 50 mls @ 100 mls/hr IVPB Q8H-IV SONAL PRN Reason: Protocol Last Admin: 11/18/17 09:10 Dose: 100 mls/hr Insulin Aspart (Novolog Vial Sliding Scale -) 1 vial SQ ACHS [facility] PRN Reason: Protocol Last Admin: 11/18/17 06:03 Dose: 6 units Insulin Detemir (Levemir Vial) 10 units SQ BID@0700,2200 [facility] Last Admin: 11/18/17 06:03 Dose: 10 units Metoprolol Tartrate (Lopressor Injection -) 5 mg IVPUSH Q4H PRN PRN Reason: HYPERTENSION Pantoprazole Sodium (Protonix Iv) 40 mg IVPUSH DAILY [facility] Last Admin: 11/18/17 11:05 Dose: 40 mg Prednisone (Deltasone -) 40 mg PO DAILY [facility] Last Admin: 11/18/17 09:08 Dose: 40 mg Quetiapine Fumarate (Seroquel -) 25 mg PO HS [facility] Last Admin: 11/17/17 21:53 Dose: 25 mg Ranitidine HCl (Zantac -) 150 mg PO DAILY [facility] Last Admin: 11/18/17 09:08 Dose: 150 mg Roflumilast (Daliresp -) 500 mcg NGT DAILY [facility] Last Admin: 11/18/17 09:09 Dose: 500 mcg Saliva Substitute (Mouthkote Solution -) 1 applic MM DAILY [facility] Last Admin: 11/18/17 10:10 Dose: 1 applic A/P Acute Hypoxic Respiratory Failure s/p Tracheostomy Pneumonia Sepsis Interstitial Lung Disease Acute Diastolic Heart Failure improved Acute Kidney Injury Lactic Acidosis resolved DM RLE DVT - continue empiric antibiotics - f/u pending cultures - monitor urine output, creatinine - increase free water - continue prednisone - anxiolytics, seroquel qHS - enteral feeds - continue anticoagulation - swallow eval for possible PO intake when respiratory status more stable - taper FiO2 to keep SpO2 >90% - spontaneous breathing trials as tolerated - DVT/GI prophylaxis Problem List - Problems (1) Acute respiratory failure with hypoxia Code(s): J96.01 - ACUTE RESPIRATORY FAILURE WITH HYPOXIA (2) Pneumonia Code(s): J18.9 - PNEUMONIA, UNSPECIFIED ORGANISM (3) Diabetes Code(s): E11.9 - TYPE 2 DIABETES MELLITUS WITHOUT COMPLICATIONS
[2017-11-18 12:32] LABS: ANISOCYTOSIS 1+; MACROCYTOSIS 1+; TOXIC GRANULATION 1+
--- NOTE | 2017-11-18 15:18 | PN ---
Progress Note, Physician History of Present Illness: Pt seen and examined at bedside. He is now in the medical rios. He appears comfortable. - Current Medication List Current Medications: Active Medications Acetaminophen (Tylenol -) 650 mg PO Q6H PRN PRN Reason: FEVER Acetaminophen (Ofirmev Injection -) 1,000 mg IVPB Q6H PRN PRN Reason: FEVER Albuterol/Ipratropium (Duoneb -) 1 amp NEB RQID [facility] Last Admin: 11/18/17 11:20 Dose: 1 amp Amino Acids (Prosource No Carb Liquid Pkt) 30 ml PO BID@0800,1730 [facility] Last Admin: 11/18/17 08:36 Dose: 30 ml Apixaban (Eliquis -) 5 mg PO BID [facility] Last Admin: 11/18/17 10:10 Dose: 5 mg Artificial Tears (Artificial Tears Ointment -) 1 applic OU [facility] Last Admin: 11/17/17 21:53 Dose: 1 applic Sodium Chloride (1/2 Normal Saline) 1,000 mls @ 42 mls/hr IV ASDIR [facility] Last Admin: 11/18/17 09:48 Dose: 42 mls/hr Piperacillin/Tazobactam/Dextrose (Zosyn 2.25gm Ivpb (Premix)) 2.25 gm in 50 mls @ 100 mls/hr IVPB Q8H-IV [facility] PRN Reason: Protocol Last Admin: 11/18/17 09:10 Dose: 100 mls/hr Insulin Aspart (Novolog Vial Sliding Scale -) 1 vial SQ ACHS [facility] PRN Reason: Protocol Last Admin: 11/18/17 12:24 Dose: 8 units Insulin Detemir (Levemir Vial) 10 units SQ BID@0700,2200 [facility] Last Admin: 11/18/17 06:03 Dose: 10 units Metoprolol Tartrate (Lopressor Injection -) 5 mg IVPUSH Q4H PRN PRN Reason: HYPERTENSION Pantoprazole Sodium (Protonix Iv) 40 mg IVPUSH DAILY [facility] Last Admin: 11/18/17 11:05 Dose: 40 mg Prednisone (Deltasone -) 40 mg PO DAILY [facility] Last Admin: 11/18/17 09:08 Dose: 40 mg Quetiapine Fumarate (Seroquel -) 25 mg PO HS [facility] Last Admin: 11/17/17 21:53 Dose: 25 mg Ranitidine HCl (Zantac -) 150 mg PO DAILY [facility] Last Admin: 11/18/17 09:08 Dose: 150 mg Roflumilast (Daliresp -) 500 mcg NGT DAILY [facility] Last Admin: 11/18/17 09:09 Dose: 500 mcg Saliva Substitute (Mouthkote Solution -) 1 applic MM DAILY [facility] Last Admin: 11/18/17 10:10 Dose: 1 applic - Objective Vital Signs: Vital Signs Temperature 98.5 F 11/18/17 14:47 Pulse Rate 107 H 11/18/17 14:47 Respiratory Rate 28 H 11/18/17 14:47 Blood Pressure 138/64 11/18/17 14:47 O2 Sat by Pulse Oximetry (%) 95 11/17/17 21:19 Constitutional: Yes: Calm Eyes: Yes: Conjunctiva Clear Neck: Yes: Other (trache) Cardiovascular: Yes: S1, S2 Respiratory: Yes: Mechanically Ventilated Gastrointestinal: Yes: Other (peg) Genitourinary: Yes: Other (external cath) Musculoskeletal: Yes: Muscle Weakness Edema: No Neurological: Yes: Oriented Psychiatric: Yes: Oriented Labs: CBC, BMP 11/18/17 07:00 11/18/17 07:00 INR, PTT INR 1.02 (0.82-1.09) 11/09/17 05:50 Problem List - Problems (1) Hypernatremia Code(s): E87.0 - HYPEROSMOLALITY AND HYPERNATREMIA (2) MIRLANDE (acute kidney injury) Code(s): N17.9 - ACUTE KIDNEY FAILURE, UNSPECIFIED (3) Acute respiratory failure with hypoxia Code(s): J96.01 - ACUTE RESPIRATORY FAILURE WITH HYPOXIA (4) Diabetes Code(s): E11.9 - TYPE 2 DIABETES MELLITUS WITHOUT COMPLICATIONS (5) Failure to thrive Code(s): [id number] - Assessment/Plan Current Medications Generic Name Dose Route Start Last Admin Trade Name Freq PRN Reason Stop Dose Admin Acetaminophen 650 mg 11/17/17 18:18 Tylenol - PO Q6H PRN FEVER Acetaminophen 1,000 mg 11/17/17 18:18 Ofirmev Injection - IVPB Q6H PRN FEVER Albuterol/Ipratropium 1 amp 11/17/17 20:00 11/18/17 11:20 Duoneb - NEB 1 amp RQID [facility] Administration Amino Acids 30 ml 11/18/17 08:00 11/18/17 08:36 Prosource No Carb Liquid Pkt PO 30 ml BID@0800,1730 [facility] Administration Apixaban 5 mg 11/17/17 22:00 11/18/17 10:10 Eliquis - PO 5 mg BID [facility] Administration Artificial Tears 1 applic 11/17/17 22:00 11/17/17 21:53 Artificial Tears Ointment - OU 1 applic HS [facility] Administration Sodium Chloride 1,000 mls @ 42 mls/hr 11/17/17 18:18 11/18/17 09:48 1/2 Normal Saline IV 42 mls/hr ASDIR [facility] Administration Piperacillin/Tazobactam/Dextrose 2.25 gm in 50 mls @ 100 mls/hr 11/18/17 02: 00 11/18/17 09:10 Zosyn 2.25gm Ivpb (Premix) IVPB 100 mls/hr Q8H-IV [facility] Administration Protocol Insulin Aspart 1 vial 11/17/17 22:00 11/18/17 12:24 Novolog Vial Sliding Scale - SQ 8 units ACHS [facility] Administration Protocol Insulin Detemir 10 units 11/17/17 22:00 11/18/17 06:03 Levemir Vial SQ 10 units BID@0700,2200 [facility] Administration Metoprolol Tartrate 5 mg 11/17/17 18:18 Lopressor Injection - IVPUSH Q4H PRN HYPERTENSION Pantoprazole Sodium 40 mg 11/18/17 10:00 11/18/17 11:05 Protonix Iv IVPUSH 40 mg DAILY [facility] Administration Prednisone 40 mg 11/18/17 10:00 11/18/17 09:08 Deltasone - PO 40 mg DAILY [facility] Administration Quetiapine Fumarate 25 mg 11/17/17 22:00 11/17/17 21:53 Seroquel - PO 25 mg HS [facility] Administration Ranitidine HCl 150 mg 11/18/17 10:00 11/18/17 09:08 Zantac - PO 150 mg DAILY [facility] Administration Roflumilast 500 mcg 11/18/17 10:00 11/18/17 09:09 Daliresp - NGT 500 mcg DAILY [facility] Administration Saliva Substitute 1 applic 11/18/17 10:00 11/18/17 10:10 Mouthkote Solution - MM 1 applic DAILY [facility] Administration Impression 1. MIRLANDE 2. hypernatremia 3. chronic resp failure s/p trache 4. s/p trache 5. s/p peg 6. sepsis 7. interstitial lung disease 8. chf diastolic 9. DM 10. lactic acidosis 11. PNA Plan - renal function continues to improve - cont feeds with free water - repeat labs in am - vent support - monitor glucose - vent support - pulm input appreciated Dr Gan
[2017-11-18] MEDS ORDERED: INSULIN (NOVOLOG) ASPART 100 UNITS/ML 10ML VIAL ONE (17:18)
[2017-11-18] MEDS: QUEtiapine FUMARATE 25 MG TABLET (FP) PO SCH (21:25)
[2017-11-18] MEDS: MINERAL OIL/PETROLATUM,WHITE 3.5 GM TUBE OU SCH (21:31)
[2017-11-19] MEDS: PIPERACILLIN/TAZOB 2.25 GM 2.25 GM/50 ML BAG IVPB SCH ×3 (01:03→17:28)
[2017-11-19] MEDS: INSULIN SLIDING SCALE (NOVOLOG) 1 VIAL SQ SCH ×3 (06:02→17:31)
[2017-11-19] MEDS: INSULIN DETEMIR 100 UNITS/ML MDV SQ SCH (06:02)
[2017-11-19] MEDS: ALBUTEROL SO4 2.5/IPRATROPIUM 0.5 INH SOL 3 ML VIAL.NEB. NEB SCH ×4 (08:20→20:59)
[2017-11-19 08:25] LABS: BASO % 0.3 % (0-2.0); EOS % 0.2 % (0-4.5); HEMOGLOBIN 7.4 GM/dL (11.7-16.9); LYMPH % 6.1 % (8-40); MCH 30.9 pg (25.7-33.7); MCHC 29.7 g/dl (32.0-35.9); MEAN CELL VOLUME 103.9 fl (80-96); MEAN PLT VOLUME 11.7 fl (7.5-11.1); MONO % 5.6 % (3.8-10.2); NEUT % 87.8 % (42.8-82.8); PLATELET COUNT 130 K/MM3 (134-434); RBC 2.41 M/mm3 (4.00-5.60); RDW 17.3 % (11.9-15.9); WHITE BLOOD COUNT 15.9 K/mm3 (4.0-10.0)
[2017-11-19] MEDS: AMINO ACIDS/PROTEIN HYDROLYS 30 ML LIQUID.PKT PO SCH ×2 (08:32→17:28)
[2017-11-19 08:41] LABS: ALBUMIN 1.9 g/dl (3.4-5.0); ANION GAP 6 (8-16); BLOOD UREA NITROGEN 40 mg/dL (7-18); CALCIUM 8.2 mg/dL (8.5-10.1); CHLORIDE 105 mmol/L (98-107); CO2 36 mmol/L (21-32); GLUCOSE,RANDOM 215 mg/dL (74-106); MAGNESIUM 2.3 mg/dL (1.8-2.4); POTASSIUM 3.7 mmol/L (3.5-5.1); SGOT/AST 13 U/L (15-37); SODIUM 147 mmol/L (136-145)
[2017-11-19 08:43] LABS: ALK PHOS 112 U/L (45-117); BILIRUBIN,TOTAL 0.5 mg/dL (0.2-1.0); CREATININE 1.2 mg/dL (0.7-1.3); PHOSPHOROUS 2.5 mg/dL (2.5-4.9); SGPT/ALT 15 U/L (12-78); TOT PROT 6.5 g/dl (6.4-8.2)
[2017-11-19] MEDS ORDERED: PT OWN MED DRAWER 7, Y5N ONE ×2 (09:10→17:13)
[2017-11-19] MEDS: predniSONE 20 MG TABLET (UD) PO SCH (09:33)
[2017-11-19] MEDS: PANTOPRAZOLE SODIUM 40 MG VIAL IVPUSH SCH (09:33)
[2017-11-19] MEDS: RANITIDINE HCL 150 MG TABLET (FP) PO SCH (09:33)
[2017-11-19] MEDS: ROFLUMILAST 500 MCG TABLET NGT SCH (09:34)
[2017-11-19] MEDS: APIXABAN 5 MG TABLET PO SCH (09:34)
[2017-11-19] MEDS: LYTES/YERBA SANTA 240 ML BOTTLE MM SCH (09:34)
[2017-11-19] MEDS: SODIUM CHLORIDE 0.45% 1,000 ML IV SCH (09:54)
--- NOTE | 2017-11-19 12:12 | PN ---
Progress Note (short form) - Note Progress Note: PULMONARY Remains vented, tachypneic at rest. No fevers recorded. Last Vital Signs Temp Pulse Resp BP Pulse Ox 98.2 F 91 H 26 H 118/55 96 11/19/17 06:00 11/19/17 06:00 11/19/17 06:20 11/19/17 06:00 11/18/17 21:00 Gen: vented, tachypneic Heart: tachycardic, regular Lung: bibasilar rales Abd: soft, nontender Ext: no edema CBC, BMP 11/19/17 07:15 11/19/17 07:15 Active Medications Acetaminophen (Tylenol -) 650 mg PO Q6H PRN PRN Reason: FEVER Acetaminophen (Ofirmev Injection -) 1,000 mg IVPB Q6H PRN PRN Reason: FEVER Albuterol/Ipratropium (Duoneb -) 1 amp NEB RQID [facility] Last Admin: 11/19/17 08:20 Dose: 1 amp Amino Acids (Prosource No Carb Liquid Pkt) 30 ml PO BID@0800,1730 [facility] Last Admin: 11/19/17 08:32 Dose: 30 ml Apixaban (Eliquis -) 5 mg PO BID [facility] Last Admin: 11/19/17 09:34 Dose: 5 mg Artificial Tears (Artificial Tears Ointment -) 1 applic OU HS [facility] Last Admin: 11/18/17 21:31 Dose: 1 applic Sodium Chloride (1/2 Normal Saline) 1,000 mls @ 42 mls/hr IV ASDIR [facility] Last Admin: 11/19/17 09:54 Dose: 42 mls/hr Piperacillin/Tazobactam/Dextrose (Zosyn 2.25gm Ivpb (Premix)) 2.25 gm in 50 mls @ 100 mls/hr IVPB Q8H-IV [facility] PRN Reason: Protocol Last Admin: 11/19/17 09:36 Dose: 100 mls/hr Insulin Aspart (Novolog Vial Sliding Scale -) 1 vial SQ ACHS [facility] PRN Reason: Protocol Last Admin: 11/19/17 06:02 Dose: 2 units Insulin Detemir (Levemir Vial) 10 units SQ BID@0700,2200 [facility] Last Admin: 11/19/17 06:02 Dose: 10 units Metoprolol Tartrate (Lopressor Injection -) 5 mg IVPUSH Q4H PRN PRN Reason: HYPERTENSION Pantoprazole Sodium (Protonix Iv) 40 mg IVPUSH DAILY [facility] Last Admin: 11/19/17 09:33 Dose: 40 mg Prednisone (Deltasone -) 40 mg PO DAILY [facility] Last Admin: 11/19/17 09:33 Dose: 40 mg Quetiapine Fumarate (Seroquel -) 25 mg PO HS [facility] Last Admin: 11/18/17 21:25 Dose: 25 mg Ranitidine HCl (Zantac -) 150 mg PO DAILY [facility] Last Admin: 11/19/17 09:33 Dose: 150 mg Roflumilast (Daliresp -) 500 mcg NGT DAILY [facility] Last Admin: 11/19/17 09:34 Dose: 500 mcg Saliva Substitute (Mouthkote Solution -) 1 applic MM DAILY [facility] Last Admin: 11/19/17 09:34 Dose: 1 applic A/P Acute Hypoxic Respiratory Failure s/p Tracheostomy Pneumonia Sepsis Interstitial Lung Disease Acute Diastolic Heart Failure improved Acute Kidney Injury Lactic Acidosis resolved DM RLE DVT - continue empiric antibiotics - monitor urine output, creatinine - increase free water - continue prednisone - anxiolytics, seroquel qHS - enteral feeds - continue anticoagulation, monitor H/H - swallow eval for possible PO intake when respiratory status more stable - taper FiO2 to keep SpO2 >90% - spontaneous breathing trials as tolerated - DVT/GI prophylaxis Problem List - Problems (1) Acute respiratory failure with hypoxia Code(s): J96.01 - ACUTE RESPIRATORY FAILURE WITH HYPOXIA (2) Pneumonia Code(s): J18.9 - PNEUMONIA, UNSPECIFIED ORGANISM (3) Diabetes Code(s): E11.9 - TYPE 2 DIABETES MELLITUS WITHOUT COMPLICATIONS
--- NOTE | 2017-11-19 13:59 | PN ---
Teaching Attending Note Name of Resident: Estefania Ramirez ATTENDING PHYSICIAN STATEMENT SUBJECTIVE: Patient seen and examined. feels the same, no new complaints. talks in whispers. OBJECTIVE: Vital Signs Period Temp Pulse Resp BP Sys/Sutton Pulse Ox Last 24 Hr 98.2 F-98.7 F 91-108 20-30 118-155/55-67 96 Intake & Output 11/16/17 11/17/17 11/18/17 11/19/17 23:59 23:59 23:59 23:59 Intake Total 4278 3180 4032 2001 Output Total 350 200 Balance 3928 2980 4032 2001 Weight 96 lb 9 oz 95 lb 14.417 oz general: lying in bed, comfortable, no use of accessory muscles of respiration, cachectic in bed Chest: coarse rhonchi bilaterally anteriorly, fine rales unchanged posteriorly Abdomen: soft, scaphoid, PEG in place, positive bowel sounds extremities: no edema Home Medication List Medication Instructions Recorded Confirmed Type Glipizide [Glucotrol Xl] 0 mg PO ASDIR 10/17/17 10/17/17 History Metformin HCl 0 mg PO ASDIR 10/17/17 10/17/17 History Tamsulosin HCl 0.4 mg PO DAILY 10/17/17 10/17/17 History Active Medications Generic Name Dose Route Start Last Admin Trade Name Freq PRN Reason Stop Dose Admin Acetaminophen 650 mg 11/17/17 18:18 Tylenol - PO Q6H PRN FEVER Acetaminophen 1,000 mg 11/17/17 18:18 Ofirmev Injection - IVPB Q6H PRN FEVER Albuterol/Ipratropium 1 amp 11/17/17 20:00 11/19/17 08:20 Duoneb - NEB 1 amp RQID [facility] Administration Amino Acids 30 ml 11/18/17 08:00 11/19/17 08:32 Prosource No Carb Liquid Pkt PO 30 ml BID@0800,1730 [facility] Administration Apixaban 5 mg 11/17/17 22:00 11/19/17 09:34 Eliquis - PO 5 mg BID [facility] Administration Artificial Tears 1 applic 11/17/17 22:00 11/18/17 21:31 Artificial Tears Ointment - OU 1 applic HS [facility] Administration Piperacillin/Tazobactam/Dextrose 2.25 gm in 50 mls @ 100 mls/hr 11/18/17 02: 00 11/19/17 09:36 Zosyn 2.25gm Ivpb (Premix) IVPB 100 mls/hr Q8H-IV [facility] Administration Protocol Insulin Aspart 1 vial 11/17/17 22:00 11/19/17 12:39 Novolog Vial Sliding Scale - SQ 2 units ACHS [facility] Administration Protocol Insulin Detemir 10 units 11/17/17 22:00 11/19/17 06:02 Levemir Vial SQ 10 units BID@0700,2200 [facility] Administration Metoprolol Tartrate 5 mg 11/17/17 18:18 Lopressor Injection - IVPUSH Q4H PRN HYPERTENSION Pantoprazole Sodium 40 mg 11/18/17 10:00 11/19/17 09:33 Protonix Iv IVPUSH 40 mg DAILY [facility] Administration Prednisone 40 mg 11/18/17 10:00 11/19/17 09:33 Deltasone - PO 40 mg DAILY [facility] Administration Quetiapine Fumarate 25 mg 11/17/17 22:00 11/18/17 21:25 Seroquel - PO 25 mg HS [facility] Administration Ranitidine HCl 150 mg 11/18/17 10:00 11/19/17 09:33 Zantac - PO 150 mg DAILY [facility] Administration Roflumilast 500 mcg 11/18/17 10:00 11/19/17 09:34 Daliresp - NGT 500 mcg DAILY [facility] Administration Saliva Substitute 1 applic 11/18/17 10:00 11/19/17 09:34 Mouthkote Solution - MM 1 applic DAILY [facility] Administration Laboratory Results - last 24 hr 11/18/17 11/18/17 11/19/17 16:36 21:28 05:32 WBC RBC Hgb Hct MCV MCH MCHC RDW Plt Count MPV Neutrophils % Lymphocytes % Monocytes % Eosinophils % Basophils % Sodium Potassium Chloride Carbon Dioxide Anion Gap BUN Creatinine Creat Clearance w eGFR POC Glucometer 219 226 206 Random Glucose Calcium Phosphorus Magnesium Total Bilirubin AST ALT Alkaline Phosphatase Total Protein Albumin 11/19/17 11/19/17 11/19/17 07:15 07:15 12:30 WBC 15.9 H RBC 2.41 L Hgb 7.4 L Hct 25.0 L MCV 103.9 H MCH 30.9 MCHC 29.7 L RDW 17.3 H Plt Count 130 L D MPV 11.7 H Neutrophils % 87.8 H Lymphocytes % 6.1 L D Monocytes % 5.6 Eosinophils % 0.2 Basophils % 0.3 Sodium 147 H Potassium 3.7 Chloride 105 Carbon Dioxide 36 H Anion Gap 6 L BUN 40 H Creatinine 1.2 Creat Clearance w eGFR > 60 POC Glucometer 216 Random Glucose 215 H Calcium 8.2 L Phosphorus 2.5 Magnesium 2.3 Total Bilirubin 0.5 AST 13 L ALT 15 Alkaline Phosphatase 112 Total Protein 6.5 Albumin 1.9 L Microbiology 11/18/17 21:30 Stool Clostridium difficile Antigen ([facility]) - Final 11/18/17 21:30 Stool Clostridium difficile Toxin Assay - Final 11/13/17 17:30 Blood - Peripheral Venous Blood Culture - Final NO GROWTH AFTER 5 DAYS INCUBATION 11/13/17 17:10 Blood - Peripheral Venous Blood Culture - Final NO GROWTH AFTER 5 DAYS INCUBATION 11/14/17 14:30 Sputum - Endotrachea Suction/Ventilator Gram Stain - Final 11/14/17 14:30 Sputum - Endotrachea Suction/Ventilator Sputum Culture - Final Klebsiella Pneumoniae 11/14/17 22:00 Urine - Urine Clean Catch Urine Culture - Final Yeast Like Organism 11/15/17 11:00 Nasopharyngeal Swab Influenza Types A,B Antigen ([facility]) - Final 11/15/17 11:00 Nasopharyngeal Swab - Final 10/21/17 06:00 Serum Cryptococcal Antigen - Final 10/19/17 19:30 Sputum - Expectorated Gram Stain - Final 10/19/17 19:30 Sputum - Expectorated Sputum Culture - Final NORMAL RESPIRATORY TOYIN 10/17/17 10:10 Blood - Peripheral Venous Blood Culture - Final NO GROWTH AFTER 5 DAYS INCUBATION 10/17/17 10:10 Blood - Peripheral Venous Blood Culture - Final NO GROWTH AFTER 5 DAYS INCUBATION 10/17/17 13:57 Urine - Urine Clean Catch Urine Culture - Final NO GROWTH OBTAINED 10/17/17 13:57 Urine For Antigen Detection Legionella Antigen - Final 10/17/17 13:57 Urine For Antigen Detection Streptococcus pneumoniae Antigen (M - Final 10/17/17 10:25 Nasopharyngeal Swab Influenza Types A,B Antigen ([facility]) - Final 10/17/17 10:25 Nasopharyngeal Swab - Final ASSESSMENT AND PLAN: 62 yo M active smoker, pMHx of NIDDM, PUD, BPH admitted with acute hypoxic respiratory failure, and extensive RLE DVT -Acute hypoxic respiratory failure, suspect from ?ILD with pneumonitis s/p intubation 11/03, trach 11/07, exchanged 11/11 for cuff, now recurrent worsening respiratory failure, suspected aspiration PNA with sepsis -Extensive RLE Acute DVT, s/p IVC filter 10/20, thrombectmy 10/24 - Acute diastolic heart failure -Sepsis on admission, likely from PNA, now recurrent concerns for aspiration PNA -Lactic acidosis, from sepsis vs increased work of breathing, resolved -MIRLANDE on admission from sepsis, now recurrent, ?Sepsis, vs ATN , obstructive process ruled out -Hypernatremia, likely hypovolumic -Thrombocytopenia -Elevated INR -Chest wall and right sided abdominal pain -NIDDM -PUD -BPH -Cachexia/malnutrition Plan: Coarse rhonchi today. Will d/cIVF, and intermittent free water flushes. Decrease tube feeds rate to 40 ml/hr for now and continue free water 40 ml/hr via PEG only. Strict Aspiration precautions and head end bed elevation, reinforced with nursing. Repeat CXR in AM. Calmer on seroquel, FIO2 down to 60-70%, overall looks better. Frequent suctioning. RR on vent decreased and doing well. Trach cuff leak, s/p extended trach placed 11/14 with no further leak. CXR no new infiltrate but ?Aspiration PNA vs pneumonitis. ID input appreciated. zosyn resumed day 7 (prior s/p 7 days of ceftriaxone/azithromycin). Blood cx neg , sputum cx with klebsiella, Flu swab neg. Abx per ID. WBC improved again. Follow up stool C difficile. Trend CBC and monitor for new fevers. Continue prednisone per pulmonary. ?ILD with pneumonitis, unclear etiology, on Eliquis, hold for procedure as indicated. Renal ultrasound/nephrology input/Urine lytes neg. Suspect hypovolumia. Na/renal function improved. s/p PEG 11/09 Follow up speech/swallow eval as able. Intermittent agitation, 2 point restraints as pulls at the vent, usually in the evenings, suspect . Continue seroquel. Platelets improved. Replete lytes prn. Ac 7.4, ISS, hold oral hypoglycemics. Increased levemir to 10 units BID, titrate based on blood sugars. Continue flomax. Nicotine patch MICU monitoring. Plan discussed with nursing.
--- NOTE | 2017-11-19 18:42 | PN ---
Progress Note, Physician History of Present Illness: Pt seen and examined at bedside. Renal function is improving. He appears comfortable. - Current Medication List Current Medications: Active Medications Acetaminophen (Tylenol -) 650 mg PO Q6H PRN PRN Reason: FEVER Acetaminophen (Ofirmev Injection -) 1,000 mg IVPB Q6H PRN PRN Reason: FEVER Albuterol/Ipratropium (Duoneb -) 1 amp NEB RQID [facility] Last Admin: 11/19/17 16:25 Dose: 1 amp Amino Acids (Prosource No Carb Liquid Pkt) 30 ml PO BID@0800,1730 [facility] Last Admin: 11/19/17 17:28 Dose: 30 ml Apixaban (Eliquis -) 5 mg PO BID [facility] Last Admin: 11/19/17 09:34 Dose: 5 mg Artificial Tears (Artificial Tears Ointment -) 1 applic OU HS [facility] Last Admin: 11/18/17 21:31 Dose: 1 applic Piperacillin/Tazobactam/Dextrose (Zosyn 2.25gm Ivpb (Premix)) 2.25 gm in 50 mls @ 100 mls/hr IVPB Q8H-IV [facility] PRN Reason: Protocol Last Admin: 11/19/17 17:28 Dose: 100 mls/hr Insulin Aspart (Novolog Vial Sliding Scale -) 1 vial SQ ACHS [facility] PRN Reason: Protocol Last Admin: 11/19/17 17:31 Dose: 4 units Insulin Detemir (Levemir Vial) 10 units SQ BID@0700,2200 [facility] Last Admin: 11/19/17 06:02 Dose: 10 units Metoprolol Tartrate (Lopressor Injection -) 5 mg IVPUSH Q4H PRN PRN Reason: HYPERTENSION Pantoprazole Sodium (Protonix Iv) 40 mg IVPUSH DAILY [facility] Last Admin: 11/19/17 09:33 Dose: 40 mg Prednisone (Deltasone -) 40 mg PO DAILY [facility] Last Admin: 11/19/17 09:33 Dose: 40 mg Quetiapine Fumarate (Seroquel -) 25 mg PO HS [facility] Last Admin: 11/18/17 21:25 Dose: 25 mg Ranitidine HCl (Zantac -) 150 mg PO DAILY [facility] Last Admin: 11/19/17 09:33 Dose: 150 mg Roflumilast (Daliresp -) 500 mcg NGT DAILY [facility] Last Admin: 11/19/17 09:34 Dose: 500 mcg Saliva Substitute (Mouthkote Solution -) 1 applic MM DAILY [facility] Last Admin: 11/19/17 09:34 Dose: 1 applic - Objective Vital Signs: Vital Signs Temperature 97.9 F 11/19/17 15:27 Pulse Rate 99 H 11/19/17 15:27 Respiratory Rate 26 H 11/19/17 17:43 Blood Pressure 143/68 11/19/17 15:27 O2 Sat by Pulse Oximetry (%) 92 L 11/19/17 09:00 Constitutional: Yes: Calm Eyes: Yes: Conjunctiva Clear Neck: Yes: Other (trache) Cardiovascular: Yes: S1, S2 Respiratory: Yes: Mechanically Ventilated Gastrointestinal: Yes: Soft, Other (peg) Genitourinary: Yes: Other (external catheter) Musculoskeletal: Yes: Muscle Weakness Edema: No Neurological: Yes: Oriented Labs: CBC, BMP 11/19/17 07:15 11/19/17 07:15 INR, PTT INR 1.02 (0.82-1.09) 11/09/17 05:50 Problem List - Problems (1) Hypernatremia Code(s): E87.0 - HYPEROSMOLALITY AND HYPERNATREMIA (2) MIRLANDE (acute kidney injury) Code(s): N17.9 - ACUTE KIDNEY FAILURE, UNSPECIFIED (3) Acute respiratory failure with hypoxia Code(s): J96.01 - ACUTE RESPIRATORY FAILURE WITH HYPOXIA (4) Diabetes Code(s): E11.9 - TYPE 2 DIABETES MELLITUS WITHOUT COMPLICATIONS (5) Failure to thrive Code(s): [id number] - Assessment/Plan Current Medications Generic Name Dose Route Start Last Admin Trade Name Freq PRN Reason Stop Dose Admin Acetaminophen 650 mg 11/17/17 18:18 Tylenol - PO Q6H PRN FEVER Acetaminophen 1,000 mg 11/17/17 18:18 Ofirmev Injection - IVPB Q6H PRN FEVER Albuterol/Ipratropium 1 amp 11/17/17 20:00 11/19/17 16:25 Duoneb - NEB 1 amp RQID [facility] Administration Amino Acids 30 ml 11/18/17 08:00 11/19/17 17:28 Prosource No Carb Liquid Pkt PO 30 ml BID@0800,1730 [facility] Administration Apixaban 5 mg 11/17/17 22:00 11/19/17 09:34 Eliquis - PO 5 mg BID [facility] Administration Artificial Tears 1 applic 11/17/17 22:00 11/18/17 21:31 Artificial Tears Ointment - OU 1 applic HS [facility] Administration Piperacillin/Tazobactam/Dextrose 2.25 gm in 50 mls @ 100 mls/hr 11/18/17 02: 00 11/19/17 17:28 Zosyn 2.25gm Ivpb (Premix) IVPB 100 mls/hr Q8H-IV [facility] Administration Protocol Insulin Aspart 1 vial 11/17/17 22:00 11/19/17 17:31 Novolog Vial Sliding Scale - SQ 4 units ACHS [facility] Administration Protocol Insulin Detemir 10 units 11/17/17 22:00 11/19/17 06:02 Levemir Vial SQ 10 units BID@0700,2200 [facility] Administration Metoprolol Tartrate 5 mg 11/17/17 18:18 Lopressor Injection - IVPUSH Q4H PRN HYPERTENSION Pantoprazole Sodium 40 mg 11/18/17 10:00 11/19/17 09:33 Protonix Iv IVPUSH 40 mg DAILY [facility] Administration Prednisone 40 mg 11/18/17 10:00 11/19/17 09:33 Deltasone - PO 40 mg DAILY [facility] Administration Quetiapine Fumarate 25 mg 11/17/17 22:00 11/18/17 21:25 Seroquel - PO 25 mg HS [facility] Administration Ranitidine HCl 150 mg 11/18/17 10:00 11/19/17 09:33 Zantac - PO 150 mg DAILY [facility] Administration Roflumilast 500 mcg 11/18/17 10:00 11/19/17 09:34 Daliresp - NGT 500 mcg DAILY [facility] Administration Saliva Substitute 1 applic 11/18/17 10:00 11/19/17 09:34 Mouthkote Solution - MM 1 applic DAILY [facility] Administration Impression 1. MIRLANDE 2. hypernatremia 3. chronic resp failure s/p trache 4. s/p trache 5. s/p peg 6. sepsis 7. interstitial lung disease 8. chf diastolic 9. DM 10. lactic acidosis 11. PNA Plan - cont free water with feeds - sodium is improving - cont feeds - pulm follow up - pt off of fluids - monitor pulse ox - vent support - monitor glucose Dr Gan
--- NOTE | 2017-11-19 22:27 | RAPID ---
Physical Examination Vital Signs: Vital Signs Temperature 97.4 F L 11/19/17 18:05 Pulse Rate 104 H 11/19/17 18:05 Respiratory Rate 18 11/19/17 20:10 Blood Pressure 149/70 11/19/17 18:05 O2 Sat by Pulse Oximetry (%) 92 L 11/19/17 09:00 Constitutional: Yes: Cachectic Eyes: Yes: Conjunctiva Clear HENT: Yes: WNL Neck: Yes: Supple Cardiovascular: Yes: WNL Respiratory: Yes: WNL Labs: CBC, BMP 11/19/17 07:15 11/19/17 07:15 Rapid Response - Rapid Response Assessment: Rapid response called, as pt found on floor by nurse this evening. At time of event, pt BP 136/56, pulse 111. Sat 86%, however sat recheck 96%. BG 205, WNL. As per nurse, pt had been off restraints. Security called to help move pt to bed. Resp team on stand-by- Stat Head CT non-con, C-spine non con ordered. Limb restraints to be reapplied. Will f/u Thank you
[2017-11-20] MEDS: INSULIN SLIDING SCALE (NOVOLOG) 1 VIAL SQ SCH ×5 (00:33→21:54)
[2017-11-20] MEDS: MINERAL OIL/PETROLATUM,WHITE 3.5 GM TUBE OU SCH ×2 (00:39→21:52)
[2017-11-20] MEDS: INSULIN DETEMIR 100 UNITS/ML MDV SQ SCH ×3 (00:39→21:54)
[2017-11-20] MEDS: QUEtiapine FUMARATE 25 MG TABLET (FP) PO SCH ×2 (00:40→21:54)
[2017-11-20] MEDS: APIXABAN 5 MG TABLET PO SCH ×3 (01:21→21:53)
[2017-11-20] MEDS: PIPERACILLIN/TAZOB 2.25 GM 2.25 GM/50 ML BAG IVPB SCH ×3 (03:09→17:45)
--- NOTE | 2017-11-20 05:39 | PN ---
Physical Exam: SUBJECTIVE: Patient seen and examined by me this AM - Pt w/ no pain, breathing unchanged. Denies fever/chills, CP, N/V, abdominal pain, peripheral edema/weakness/numbness - Pt w/ fall from bed yesterday. CT neg for acute bleed. No fx on c-spine CT. BP 136/56, pulse 111. Sat 86% at time of RR, however satting 96% on recheck. repositioned in bed and restraints reapplied. - Still with WBC count (15.9), one bout of diarrhea yesterday. C diff cultures negative. Pt with increased congestion yesterday, tube feeds decreased to 40ml. Abx coverage w/ zosyn currently. OBJECTIVE: Vital Signs Intake & Output 11/17/17 11/18/17 11/19/17 11/20/17 23:59 23:59 23:59 23:59 Intake Total 3180 4032 2001 Output Total 200 1 Balance 2980 4032 2000 Weight 43.5 kg Period Temp Pulse Resp BP Sys/Sutton Pulse Ox Last 24 Hr 97.4 F-99 F 91-111 16-30 114-149/55-70 92-94 GENERAL: Cachectic man, NAD. Vented, trach'ed. HEAD: Normal with no signs of trauma. Bitemporal wasting EYES: Sclera anicteric, conjunctiva clear. No ptosis. ENT: Ears normal, nares patent, oropharynx clear without exudates, trace secretions noted in oropharynx. NECK: Trach collar in place, no erythema or drainage. Trachea midline, supple. No JVD noted. LUNGS: Mechanical breath sounds. Fine crackles noted diffusely, BL. No wheezes, no accessory muscle use HEART: 2/6 systolic ejection murmur at LUSB. Regular rate and rhythm, S1, S2 without murmur, rub or gallop. ABDOMEN: PEG tube in place, no purulence erythema at site. Scaphoid abdomen, hypoactive bowel sounds, no guarding, no rebound, no hepatosplenomegaly, no masses. EXTREMITIES: No edema in LEs. 2+ pulses, warm, well-perfused NEUROLOGICAL: CN 2-12 intact. 5/5 strength grossly. Sensation preserved in all extremities. PSYCH: Normal mood, normal affect. SKIN: Warm, dry, normal turgor, no rashes or lesions noted Laboratory Results - last 24 hr CBC, BMP 11/20/17 07:00 11/20/17 07:00 11/19/17 07:15 11/19/17 07:15 11/17/17 11/19/17 11/19/17 11:36 05:32 07:15 WBC RBC Hgb Hct MCV MCH MCHC RDW Plt Count MPV Neutrophils % Lymphocytes % Monocytes % Eosinophils % Basophils % Sodium 147 H Potassium 3.7 Chloride 105 Carbon Dioxide 36 H Anion Gap 6 L BUN 40 H Creatinine 1.2 Creat Clearance w eGFR > 60 POC Glucometer 119.19770 206 Random Glucose 215 H Calcium 8.2 L Phosphorus 2.5 Magnesium 2.3 Total Bilirubin 0.5 AST 13 L ALT 15 Alkaline Phosphatase 112 Total Protein 6.5 Albumin 1.9 L 11/19/17 11/19/17 11/19/17 07:15 12:30 17:30 WBC 15.9 H RBC 2.41 L Hgb 7.4 L Hct 25.0 L MCV 103.9 H MCH 30.9 MCHC 29.7 L RDW 17.3 H Plt Count 130 L D MPV 11.7 H Neutrophils % 87.8 H Lymphocytes % 6.1 L D Monocytes % 5.6 Eosinophils % 0.2 Basophils % 0.3 Sodium Potassium Chloride Carbon Dioxide Anion Gap BUN Creatinine Creat Clearance w eGFR POC Glucometer 216 277 Random Glucose Calcium Phosphorus Magnesium Total Bilirubin AST ALT Alkaline Phosphatase Total Protein Albumin 11/19/17 11/20/17 20:43 00:30 WBC RBC Hgb Hct MCV MCH MCHC RDW Plt Count MPV Neutrophils % Lymphocytes % Monocytes % Eosinophils % Basophils % Sodium Potassium Chloride Carbon Dioxide Anion Gap BUN Creatinine Creat Clearance w eGFR POC Glucometer 205 180 Random Glucose Calcium Phosphorus Magnesium Total Bilirubin AST ALT Alkaline Phosphatase Total Protein Albumin Active Medications Generic Name Dose Route Start Last Admin Trade Name Freq PRN Reason Stop Dose Admin Acetaminophen 650 mg 11/17/17 18:18 Tylenol - PO Q6H PRN FEVER Acetaminophen 1,000 mg 11/17/17 18:18 Ofirmev Injection - IVPB Q6H PRN FEVER Albuterol/Ipratropium 1 amp 11/17/17 20:00 11/19/17 20:59 Duoneb - NEB 1 amp RQID SONAL Administration Amino Acids 30 ml 11/18/17 08:00 11/19/17 17:28 Prosource No Carb Liquid Pkt PO 30 ml BID@0800,1730 SONAL Administration Apixaban 5 mg 11/17/17 22:00 11/20/17 01:21 Eliquis - PO 5 mg BID SONAL Administration Artificial Tears 1 applic 11/17/17 22:00 11/20/17 00:39 Artificial Tears Ointment - OU 1 applic HS SONAL Administration Piperacillin/Tazobactam/Dextrose 2.25 gm in 50 mls @ 100 mls/hr 11/18/17 02: 00 11/20/17 03:09 Zosyn 2.25gm Ivpb (Premix) IVPB 100 mls/hr Q8H-IV SONAL Administration Protocol Insulin Aspart 1 vial 11/17/17 22:00 11/20/17 00:33 Novolog Vial Sliding Scale - SQ Not Given ACHS [facility] Protocol Insulin Detemir 10 units 11/17/17 22:00 11/20/17 00:39 Levemir Vial SQ 10 units BID@0700,2200 SONAL Administration Metoprolol Tartrate 5 mg 11/17/17 18:18 Lopressor Injection - IVPUSH Q4H PRN HYPERTENSION Pantoprazole Sodium 40 mg 11/18/17 10:00 11/19/17 09:33 Protonix Iv IVPUSH 40 mg DAILY SONAL Administration Prednisone 40 mg 11/18/17 10:00 11/19/17 09:33 Deltasone - PO 40 mg DAILY SONAL Administration Quetiapine Fumarate 25 mg 11/17/17 22:00 11/20/17 00:40 Seroquel - PO 25 mg HS SONAL Administration Ranitidine HCl 150 mg 11/18/17 10:00 11/19/17 09:33 Zantac - PO 150 mg DAILY SONAL Administration Roflumilast 500 mcg 11/18/17 10:00 11/19/17 09:34 Daliresp - NGT 500 mcg DAILY SONAL Administration Saliva Substitute 1 applic 11/18/17 10:00 11/19/17 09:34 Mouthkote Solution - MM 1 applic DAILY SONAL Administration Microbiology 11/18/17 21:30 Stool Clostridium difficile Antigen (CHUY) - Final 11/18/17 21:30 Stool Clostridium difficile Toxin Assay - Final 11/13/17 17:30 Blood - Peripheral Venous Blood Culture - Final NO GROWTH AFTER 5 DAYS INCUBATION 11/13/17 17:10 Blood - Peripheral Venous Blood Culture - Final NO GROWTH AFTER 5 DAYS INCUBATION 11/14/17 14:30 Sputum - Endotrachea Suction/Ventilator Gram Stain - Final 11/14/17 14:30 Sputum - Endotrachea Suction/Ventilator Sputum Culture - Final Klebsiella Pneumoniae 11/14/17 22:00 Urine - Urine Clean Catch Urine Culture - Final Yeast Like Organism 11/15/17 11:00 Nasopharyngeal Swab Influenza Types A,B Antigen (CHUY) - Final 11/15/17 11:00 Nasopharyngeal Swab - Final 10/21/17 06:00 Serum Cryptococcal Antigen - Final 10/19/17 19:30 Sputum - Expectorated Gram Stain - Final 10/19/17 19:30 Sputum - Expectorated Sputum Culture - Final NORMAL RESPIRATORY TOYIN 10/17/17 10:10 Blood - Peripheral Venous Blood Culture - Final NO GROWTH AFTER 5 DAYS INCUBATION 10/17/17 10:10 Blood - Peripheral Venous Blood Culture - Final NO GROWTH AFTER 5 DAYS INCUBATION 10/17/17 13:57 Urine - Urine Clean Catch Urine Culture - Final NO GROWTH OBTAINED 10/17/17 13:57 Urine For Antigen Detection Legionella Antigen - Final 10/17/17 13:57 Urine For Antigen Detection Streptococcus pneumoniae Antigen (M - Final 10/17/17 10:25 Nasopharyngeal Swab Influenza Types A,B Antigen (CHUY) - Final 10/17/17 10:25 Nasopharyngeal Swab - Final Recent imaging: CXR 10/21/17 - Since 10/30/2017, the ARDS pattern has diminished minimally. Follow- up recommended. CT Abdomen 10/31 - The gallbladder demonstrates no definite CT pathology. There is nonspecific minimal to mild intrahepatic biliary tract dilatation. Clinical/ laboratory correlation is suggested as well as with follow-up CT. Dilatation of the main pancreatic duct as noted above. Pancreatic ductal dilatation was also noted on a 2013 ultrasound exam. Several small pancreatic head calcifications are seen suggestive of chronic calcific pancreatitis. No gross mass lesion is identified. Correlate with MRI/MRCP when the patient's clinical condition permits. No CT evidence of acute pancreatitis. Mild acute pancreatitis is frequently not demonstrable on CT or MRI. The partially imaged lower chest demonstrates prominent bilateral interstitial thickening with relative peripheral sparing - ? Noncardiogenic edema, infectious versus noninfectious pneumonitis, hemorrhage. Correlate clinically. This finding may be somewhat increased in comparison to a chest CT exam of 10/20/2017. No pleural effusion is seen. Bibasilar bronchiectasis. There is partial imaging of nonspecific mediastinal lymphadenopathy (as described on chest CT). Prominent atherosclerotic vascular calcifications. Mild to moderate L1 and mild L5 vertebral body compression fractures are noted which appear chronic. No bony retropulsion is seen. The visualized osseous structures appear to be diffusely demineralized. Clinical/laboratory correlation is suggested. Additional evaluation utilizing bone densitometry/DEXA scan may be considered. CXR 11/01 - Since a prior study of 10/31/2017, extensive opacification is identified throughout the lung james with little significant change. This is consistent with ARDS. No pleural effusions have developed. CXR 11/02 - No significant change from prior cxr. Still with BL reticulonodular diffuse opacification. CXR 11/05 - No significant change. BL reticulonodular pattern. CXR 11/06 - No change overall CXR 11/07 - Trach in place. Diffuse BL interstitial and possible alveolar changes. No pneumo or pleural effusions. ekg 11/08 - NSR, Rate 86, QTC 409, LVH, NANCY, no ST/Twave changes CXR 11/08 - No significant interval changes, BL parenchymal reticulonodular infiltrates, ETT tube, NG tube in place CXR 11/09 - no change from prior CXR 11/10 - No change CXR 11/13 - Good placement of ETT tube CXR 11/14 - no significant change Renal U/S 11/14 - Normal kidneys BL. CXR 11/15 - No change CXR 11/16 - R lower lobe opacity with air bronchograms; clinically correlate CXR 11/17 - No change from prior xr. CT non-con head 11/19 - No acute bleed or mass effect per [facility]. Official read pending CT cervical spine 11/19 - No evidence of gross fracture. Official read pending CXR 11/20 - Very poor study. Read pending 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 #Acute hypoxic respiratory failure (possibly 2/2 ILD vs Pneumonitis)- s/p trach 11/07 after failed vent wean; trach exchanged 11/11 - Taper FiO2 as tolerated to maintain SpO2 >90%. 70% FIO2 overnight. 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 - PEG feeds decreased to 40ml as pt more overloaded yesterday; c/w 300ml water flushes every 4 hours - Seroquel 25mg PO qHS for agitation - 2pt Limb restraints overnight, as pt sundowns - talk to dietary about tube feeds w/ increased caloric density, as unable to tolerate high volumes #Leukocytosis- WBC 14.8 today, no fevers overnight; suspected possible aspiration event; CXR with possible RLL opacity 11/16; no fevers overnight - sputum culture + for legionella, sensitive to zosyn; Urine + for yeast - Day 7 of zosyn; will d/c after dose tonight per ID recs - trend fever, wbc curve - flu swab negative #hypernatremia, Na 150 today: Pre-renal; FeNa 0.3%; likely secondary to hypovolemia - Renal consulted , recs appreciated - free water flushes via PEG tube 300ml q4h - Daily BMP, trend Na #MIRLANDE - Cr 1.0 today, resolved - Renal U/S nrml - Renal consulted, following - Trend Cr #agitation - repeated attempts to remove trach; pt tends to sundown at night - 2pt restraints at night - seroquel 25mg PO qHS #RLE DVT s/p IVC filter 10/20 and thrombectomy 10/24 -c/w Eliquis 5mg BID #Acute on diastolic CHF - Not clinically volume overloaded - c/w hold lasix - No longer requires daily wts #DM (A1c 7.4 on admission) - BGM - ISS ACHS - Levemir 10u BID as BGM well controlled #BPH - - flomax held #Nicotine dependence - c/w nicotine patch #PPX Eliquis 5mg BID Zantac 150mg daily #FEN: Free water flushes, 300ml QID Daily BMP, trend Na Cont tube feeds Dispo to ICU Discussed with attending, Dr. James Reeves, PGY1 Visit type - Emergency Visit Emergency Visit: Yes ED Registration Date: 10/17/17 Care time: The patient presented to the Emergency Department on the above date and was hospitalized for further evaluation of their emergent condition. - New Patient This patient is new to me today: No - Critical Care Critical Care patient: No
[2017-11-20] MEDS: ALBUTEROL SO4 2.5/IPRATROPIUM 0.5 INH SOL 3 ML VIAL.NEB. NEB SCH ×4 (07:07→21:00)
--- NOTE | 2017-11-20 08:04 | PN ---
Teaching Attending Note Name of Resident: Dylon Reeves ATTENDING PHYSICIAN STATEMENT Time of evaluation: 10:45 AM I saw and evaluated the patient. I reviewed the resident's note and discussed the case with the resident. I agree with the resident's findings and plan as documented. SUBJECTIVE: Patient seen and examined. no complaints, aware of being on the floor last night , overall feels unchanged, NO complaints. OBJECTIVE: Vital Signs Period Temp Pulse Resp BP Sys/Sutton Pulse Ox Last 24 Hr 97.4 F-99 F 96-111 14-30 114-149/58-70 92-94 Intake & Output 11/17/17 11/18/17 11/19/17 11/20/17 23:59 23:59 23:59 23:59 Intake Total 3180 4032 2001 690 Output Total 200 1 1 Balance 2980 4032 2000 689 Weight 95 lb 14.417 oz general: sitting in bed no acute distress Chest: bibasilar rales, improved anterior rhonchi today ABdomen: soft, scaphoid, NT, PE in place extremities; no edema Home Medication List Medication Instructions Recorded Confirmed Type Glipizide [Glucotrol Xl] 0 mg PO ASDIR 10/17/17 10/17/17 History Metformin HCl 0 mg PO ASDIR 10/17/17 10/17/17 History Tamsulosin HCl 0.4 mg PO DAILY 10/17/17 10/17/17 History Active Medications Generic Name Dose Route Start Last Admin Trade Name Freq PRN Reason Stop Dose Admin Acetaminophen 650 mg 11/17/17 18:18 Tylenol - PO Q6H PRN FEVER Acetaminophen 1,000 mg 11/17/17 18:18 Ofirmev Injection - IVPB Q6H PRN FEVER Albuterol/Ipratropium 1 amp 11/17/17 20:00 11/19/17 20:59 Duoneb - NEB 1 amp RQID SONAL Administration Amino Acids 30 ml 11/18/17 08:00 11/19/17 17:28 Prosource No Carb Liquid Pkt PO 30 ml BID@0800,1730 SONAL Administration Apixaban 5 mg 11/17/17 22:00 11/20/17 01:21 Eliquis - PO 5 mg BID SONAL Administration Artificial Tears 1 applic 11/17/17 22:00 11/20/17 00:39 Artificial Tears Ointment - OU 1 applic HS SONAL Administration Piperacillin/Tazobactam/Dextrose 2.25 gm in 50 mls @ 100 mls/hr 11/18/17 02: 00 11/20/17 03:09 Zosyn 2.25gm Ivpb (Premix) IVPB 100 mls/hr Q8H-IV SONAL Administration Protocol Insulin Aspart 1 vial 11/17/17 22:00 11/20/17 06:41 Novolog Vial Sliding Scale - SQ Not Given ACHS SONAL Protocol Insulin Detemir 10 units 11/17/17 22:00 11/20/17 06:41 Levemir Vial SQ 10 units BID@0700,2200 SONAL Administration Metoprolol Tartrate 5 mg 11/17/17 18:18 Lopressor Injection - IVPUSH Q4H PRN HYPERTENSION Pantoprazole Sodium 40 mg 11/18/17 10:00 11/19/17 09:33 Protonix Iv IVPUSH 40 mg DAILY SONAL Administration Prednisone 40 mg 11/18/17 10:00 11/19/17 09:33 Deltasone - PO 40 mg DAILY SONAL Administration Quetiapine Fumarate 25 mg 11/17/17 22:00 11/20/17 00:40 Seroquel - PO 25 mg HS SONAL Administration Ranitidine HCl 150 mg 11/18/17 10:00 11/19/17 09:33 Zantac - PO 150 mg DAILY SONAL Administration Roflumilast 500 mcg 11/18/17 10:00 11/19/17 09:34 Daliresp - NGT 500 mcg DAILY SONAL Administration Saliva Substitute 1 applic 11/18/17 10:00 11/19/17 09:34 Mouthkote Solution - MM 1 applic DAILY SONAL Administration Laboratory Results - last 24 hr 10/21/17 11/16/17 11/16/17 05:50 21:54 21:58 WBC RBC Hgb Hct MCV MCH MCHC RDW Plt Count MPV Neutrophils % Lymphocytes % Monocytes % Eosinophils % Basophils % Sodium Potassium Chloride Carbon Dioxide Anion Gap BUN Creatinine Creat Clearance w eGFR POC Glucometer > 400 > 400 Random Glucose Calcium Total Bilirubin AST ALT Alkaline Phosphatase Total Protein Albumin Beta Globulins 1.0 MERYL & SPEP Interp Globulin total =4.8 Total Protein (MERYL) 7.0 Albumin (MERYL) 2.2 Albumin/Globulin (MERYL) 0.5 Bdiio-4-Nahfubyjf MERYL 0.7 Rwixe-5-Pmkvpttzh MERYL 1.2 Gamma Globulins (MERYL) 1.8 MERYL M-Errol Not observed IEP IgG 1840 IEP IgA 439 IEP IgM 70 11/17/17 11/19/17 11/19/17 11:36 17:30 20:43 WBC RBC Hgb Hct MCV MCH MCHC RDW Plt Count MPV Neutrophils % Lymphocytes % Monocytes % Eosinophils % Basophils % Sodium Potassium Chloride Carbon Dioxide Anion Gap BUN Creatinine Creat Clearance w eGFR POC Glucometer 119.50698 277 205 Random Glucose Calcium Total Bilirubin AST ALT Alkaline Phosphatase Total Protein Albumin Beta Globulins MERYL & SPEP Interp Total Protein (MERYL) Albumin (MERYL) Albumin/Globulin (MERYL) Dahig-8-Nbtyguyag MERYL Ikzjp-2-Tlxvarjqg MERYL Gamma Globulins (MERYL) MERYL M-Errol IEP IgG IEP IgA IEP IgM 11/20/17 11/20/17 11/20/17 00:30 06:20 07:00 WBC 14.8 H RBC 2.55 L Hgb 7.9 L Hct 26.4 L MCV 103.7 H MCH 31.1 MCHC 30.0 L RDW 17.5 H Plt Count 142 MPV 12.2 H Neutrophils % 85.3 H Lymphocytes % 6.4 L Monocytes % 7.8 Eosinophils % 0.2 Basophils % 0.3 Sodium Potassium Chloride Carbon Dioxide Anion Gap BUN Creatinine Creat Clearance w eGFR POC Glucometer 180 140 Random Glucose Calcium Total Bilirubin AST ALT Alkaline Phosphatase Total Protein Albumin Beta Globulins MERYL & SPEP Interp Total Protein (MERYL) Albumin (MERYL) Albumin/Globulin (MERYL) Mrcob-3-Bbygqizov MERYL Nynut-7-Ztbsuvuqd MERYL Gamma Globulins (MERYL) MERYL M-Errol IEP IgG IEP IgA IEP IgM 11/20/17 11/20/17 07:00 11:54 WBC RBC Hgb Hct MCV MCH MCHC RDW Plt Count MPV Neutrophils % Lymphocytes % Monocytes % Eosinophils % Basophils % Sodium 150 H Potassium 4.1 Chloride 107 Carbon Dioxide 38 H Anion Gap 5 L BUN 36 H Creatinine 1.0 Creat Clearance w eGFR > 60 POC Glucometer 156 Random Glucose 166 H D Calcium 8.3 L Total Bilirubin 0.4 AST 12 L ALT 16 Alkaline Phosphatase 109 Total Protein 7.0 Albumin 2.0 L Beta Globulins MERYL & SPEP Interp Total Protein (MERYL) Albumin (MERYL) Albumin/Globulin (MERYL) Wmomc-3-Zclqoycfg MERYL Vtaaw-1-Dsmdhmlyg MERYL Gamma Globulins (MERYL) MERYL M-Errol IEP IgG IEP IgA IEP IgM Microbiology 11/18/17 21:30 Stool Clostridium difficile Antigen (CHUY) - Final 11/18/17 21:30 Stool Clostridium difficile Toxin Assay - Final 11/13/17 17:30 Blood - Peripheral Venous Blood Culture - Final NO GROWTH AFTER 5 DAYS INCUBATION 11/13/17 17:10 Blood - Peripheral Venous Blood Culture - Final NO GROWTH AFTER 5 DAYS INCUBATION 11/14/17 14:30 Sputum - Endotrachea Suction/Ventilator Gram Stain - Final 11/14/17 14:30 Sputum - Endotrachea Suction/Ventilator Sputum Culture - Final Klebsiella Pneumoniae 11/14/17 22:00 Urine - Urine Clean Catch Urine Culture - Final Yeast Like Organism 11/15/17 11:00 Nasopharyngeal Swab Influenza Types A,B Antigen (CHUY) - Final 11/15/17 11:00 Nasopharyngeal Swab - Final 10/21/17 06:00 Serum Cryptococcal Antigen - Final 10/19/17 19:30 Sputum - Expectorated Gram Stain - Final 10/19/17 19:30 Sputum - Expectorated Sputum Culture - Final NORMAL RESPIRATORY TOYIN 10/17/17 10:10 Blood - Peripheral Venous Blood Culture - Final NO GROWTH AFTER 5 DAYS INCUBATION 10/17/17 10:10 Blood - Peripheral Venous Blood Culture - Final NO GROWTH AFTER 5 DAYS INCUBATION 10/17/17 13:57 Urine - Urine Clean Catch Urine Culture - Final NO GROWTH OBTAINED 10/17/17 13:57 Urine For Antigen Detection Legionella Antigen - Final 10/17/17 13:57 Urine For Antigen Detection Streptococcus pneumoniae Antigen (M - Final 10/17/17 10:25 Nasopharyngeal Swab Influenza Types A,B Antigen (CHUY) - Final 10/17/17 10:25 Nasopharyngeal Swab - Final CXR - ASSESSMENT AND PLAN: 62 yo M active smoker, pMHx of NIDDM, PUD, BPH admitted with acute hypoxic respiratory failure, and extensive RLE DVT -Unwitnessed fall last night. -Acute hypoxic respiratory failure, suspect from ?ILD with pneumonitis s/p intubation 11/03, trach 11/07, exchanged 11/11 for cuff, now recurrent worsening respiratory failure, suspected aspiration PNA with sepsis -Extensive RLE Acute DVT, s/p IVC filter 10/20, thrombectmy 10/24 - Acute diastolic heart failure -Sepsis on admission, likely from PNA, now recurrent concerns for aspiration PNA -Lactic acidosis, from sepsis vs increased work of breathing, resolved -MIRLANDE on admission from sepsis, now recurrent, ?Sepsis, vs ATN , obstructive process ruled out -Hypernatremia, likely hypovolumic -Thrombocytopenia -Elevated INR -Chest wall and right sided abdominal pain -NIDDM -PUD -BPH -Cachexia/malnutrition Plan: Overnight events noted, unwitnessed, CT head/ C-spine neg for trauma or concerns , again stressed with nursing, patient with some sundowning concerns, restraints and bed alarm at night. Fall precautions. Less coarse rales today, discuss with nutrition if can be on nutrition dense feeds, tolerating 40 ml/hr well for now. Continue free water with feeds. Na rising again, Will resume intermittent free water flushes at 300 ml q4h. CXR unchanged. Strict Aspiration precautions. Zosyn resumed day 8 (prior s/p 7 days of ceftriaxone/azithromycin). Blood cx neg , sputum cx with klebsiella, Flu swab/Stool C difficile neg. Abx per ID. Trend CBC and monitor for new fevers. ID input appreciated, plan to d/c antibiotics after today. Calmer on seroquel, FIO2 down to 70%. Frequent suctioning. RR on vent decreased and doing well. ( as discussed with Dr. Souza, patient with non compliant fibrotic lungs, does better with lower RR at 12) Trach cuff leak, s/p extended trach placed 11/14 with no further leak. CXR no new infiltrate but ?Aspiration PNA vs pneumonitis. ID input appreciated. Continue prednisone per pulmonary. ?ILD with pneumonitis, unclear etiology, On Eliquis, hold for procedure as indicated. Renal ultrasound/nephrology input/Urine lytes noted. Renal function improved. s/p PEG 11/09 Follow up speech/swallow eval as able. Intermittent agitation, 2 point restraints as pulls at the vent, usually in the evenings, suspect owning. Continue seroquel. Platelets improved. Replete lytes prn. Ac 7.4, ISS, hold oral hypoglycemics. Increased levemir to 10 units BID, titrate based on blood sugars. Continue flomax. Nicotine patch Plan discussed with nursing.
[2017-11-20] MEDS: AMINO ACIDS/PROTEIN HYDROLYS 30 ML LIQUID.PKT PO SCH ×2 (08:28→17:44)
[2017-11-20 08:41] LABS: BASO % 0.3 % (0-2.0); EOS % 0.2 % (0-4.5); HEMATOCRIT 26.4 % (35.4-49); HEMOGLOBIN 7.9 GM/dL (11.7-16.9); LYMPH % 6.4 % (8-40); MCH 31.1 pg (25.7-33.7); MEAN CELL VOLUME 103.7 fl (80-96); MEAN PLT VOLUME 12.2 fl (7.5-11.1); MONO % 7.8 % (3.8-10.2); NEUT % 85.3 % (42.8-82.8); PLATELET COUNT 142 K/MM3 (134-434); RBC 2.55 M/mm3 (4.00-5.60); RDW 17.5 % (11.9-15.9); WHITE BLOOD COUNT 14.8 K/mm3 (4.0-10.0)
[2017-11-20 09:06] LABS: ANION GAP 5 (8-16); BILIRUBIN,TOTAL 0.4 mg/dL (0.2-1.0); BLOOD UREA NITROGEN 36 mg/dL (7-18); CALCIUM 8.3 mg/dL (8.5-10.1); CHLORIDE 107 mmol/L (98-107); CO2 38 mmol/L (21-32); GLUCOSE,RANDOM 166 mg/dL (74-106); POTASSIUM 4.1 mmol/L (3.5-5.1); SODIUM 150 mmol/L (136-145)
[2017-11-20 09:08] LABS: ALK PHOS 109 U/L (45-117); SGOT/AST 12 U/L (15-37); SGPT/ALT 16 U/L (12-78)
[2017-11-20] MEDS: RANITIDINE HCL 150 MG TABLET (FP) PO SCH (11:27)
[2017-11-20] MEDS: predniSONE 20 MG TABLET (UD) PO SCH (11:28)
[2017-11-20] MEDS: PANTOPRAZOLE SODIUM 40 MG VIAL IVPUSH SCH (11:28)
[2017-11-20] MEDS: ROFLUMILAST 500 MCG TABLET NGT SCH (11:29)
--- NOTE | 2017-11-20 11:40 | PN ---
Progress Note (short form) - Note Progress Note: ID Day 7 Zosyn Selected Entries 11/20/17 07:59 Temperature 98.6 F Pulse Rate 95 H Respiratory 22 Rate Blood Pressure 136/69 Microbiology 11/18/17 21:30 Stool Clostridium difficile Antigen (CHUY) - Final 11/18/17 21:30 Stool Clostridium difficile Toxin Assay - Final 11/14/17 14:30 Sputum - Endotrachea Suction/Ventilator Gram Stain - Final 11/14/17 14:30 Sputum - Endotrachea Suction/Ventilator Sputum Culture - Final Klebsiella Pneumoniae Laboratory Tests 11/20/17 11/20/17 07:00 07:00 WBC 14.8 H Hgb 7.9 L Hct 26.4 L Plt Count 142 BUN 36 H Creatinine 1.0 Assessment Respiratory failure Elevated WBC from steroids ILD Plan As discussed with housestaff stop antibiotic after tonight dose Umer IVY Problem List - Problems (1) Interstitial lung disease Code(s): J84.9 - INTERSTITIAL PULMONARY DISEASE, UNSPECIFIED (2) Acute respiratory failure with hypoxia Code(s): J96.01 - ACUTE RESPIRATORY FAILURE WITH HYPOXIA (3) Pneumonia Code(s): J18.9 - PNEUMONIA, UNSPECIFIED ORGANISM (4) Deep vein thrombosis Code(s): I82.409 - ACUTE EMBOLISM AND THOMBOS UNSP DEEP VN UNSP LOWER EXTREMITY
[2017-11-20] MEDS: LYTES/YERBA SANTA 240 ML BOTTLE MM SCH (11:56)
--- NOTE | 2017-11-20 12:06 | PN ---
Progress Note (short form) - Note Progress Note: PULMONARY Remains vented, tachypneic at rest. No fevers recorded. Last Vital Signs Temp Pulse Resp BP Pulse Ox 98.6 F 95 H 18 136/69 94 L 11/20/17 07:59 11/20/17 07:59 11/20/17 10:00 11/20/17 07:59 11/19/17 21:00 Gen: vented, tachypneic Heart: tachycardic, regular Lung: bibasilar rales Abd: soft, nontender Ext: no edema CBC, BMP 11/20/17 07:00 11/20/17 07:00 Active Medications Acetaminophen (Tylenol -) 650 mg PO Q6H PRN PRN Reason: FEVER Acetaminophen (Ofirmev Injection -) 1,000 mg IVPB Q6H PRN PRN Reason: FEVER Albuterol/Ipratropium (Duoneb -) 1 amp NEB RQID [facility] Last Admin: 11/20/17 11:56 Dose: 1 amp Amino Acids (Prosource No Carb Liquid Pkt) 30 ml PO BID@0800,1730 [facility] Last Admin: 11/20/17 08:28 Dose: 30 ml Apixaban (Eliquis -) 5 mg PO BID [facility] Last Admin: 11/20/17 11:29 Dose: 5 mg Artificial Tears (Artificial Tears Ointment -) 1 applic OU HS [facility] Last Admin: 11/20/17 00:39 Dose: 1 applic Piperacillin/Tazobactam/Dextrose (Zosyn 2.25gm Ivpb (Premix)) 2.25 gm in 50 mls @ 100 mls/hr IVPB Q8H-IV [facility] PRN Reason: Protocol Last Admin: 11/20/17 11:27 Dose: 100 mls/hr Insulin Aspart (Novolog Vial Sliding Scale -) 1 vial SQ ACHS [facility] PRN Reason: Protocol Last Admin: 11/20/17 11:56 Dose: Not Given Insulin Detemir (Levemir Vial) 10 units SQ BID@0700,2200 [facility] Last Admin: 11/20/17 06:41 Dose: 10 units Metoprolol Tartrate (Lopressor Injection -) 5 mg IVPUSH Q4H PRN PRN Reason: HYPERTENSION Pantoprazole Sodium (Protonix Iv) 40 mg IVPUSH DAILY [facility] Last Admin: 11/20/17 11:28 Dose: 40 mg Prednisone (Deltasone -) 40 mg PO DAILY [facility] Last Admin: 11/20/17 11:28 Dose: 40 mg Quetiapine Fumarate (Seroquel -) 25 mg PO HS [facility] Last Admin: 11/20/17 00:40 Dose: 25 mg Ranitidine HCl (Zantac -) 150 mg PO DAILY [facility] Last Admin: 11/20/17 11:27 Dose: 150 mg Roflumilast (Daliresp -) 500 mcg NGT DAILY [facility] Last Admin: 11/20/17 11:29 Dose: 500 mcg Saliva Substitute (Mouthkote Solution -) 1 applic MM DAILY [facility] Last Admin: 11/20/17 11:56 Dose: 1 applic A/P Acute Hypoxic Respiratory Failure s/p Tracheostomy Pneumonia Sepsis Interstitial Lung Disease Acute Diastolic Heart Failure improved Acute Kidney Injury Lactic Acidosis resolved DM RLE DVT - continue empiric antibiotics - monitor urine output, creatinine - increase free water - continue prednisone - anxiolytics, seroquel qHS - enteral feeds - continue anticoagulation, monitor H/H - swallow eval for possible PO intake when respiratory status more stable - taper FiO2 to keep SpO2 >90%, decreased to 60% FiO2 - spontaneous breathing trials as tolerated - DVT/GI prophylaxis Problem List - Problems (1) Acute respiratory failure with hypoxia Code(s): J96.01 - ACUTE RESPIRATORY FAILURE WITH HYPOXIA (2) Pneumonia Code(s): J18.9 - PNEUMONIA, UNSPECIFIED ORGANISM (3) Diabetes Code(s): E11.9 - TYPE 2 DIABETES MELLITUS WITHOUT COMPLICATIONS
--- NOTE | 2017-11-20 17:58 | PN ---
Progress Note, Physician History of Present Illness: Pt seen and examined at bedside. He is awake and appears comfortable. - Current Medication List Current Medications: Active Medications Acetaminophen (Tylenol -) 650 mg PO Q6H PRN PRN Reason: FEVER Acetaminophen (Ofirmev Injection -) 1,000 mg IVPB Q6H PRN PRN Reason: FEVER Albuterol/Ipratropium (Duoneb -) 1 amp NEB RQID [facility] Last Admin: 11/20/17 17:00 Dose: 1 amp Amino Acids (Prosource No Carb Liquid Pkt) 30 ml PO BID@0800,1730 [facility] Last Admin: 11/20/17 17:44 Dose: 30 ml Apixaban (Eliquis -) 5 mg PO BID [facility] Last Admin: 11/20/17 11:29 Dose: 5 mg Artificial Tears (Artificial Tears Ointment -) 1 applic OU HS [facility] Last Admin: 11/20/17 00:39 Dose: 1 applic Piperacillin/Tazobactam/Dextrose (Zosyn 2.25gm Ivpb (Premix)) 2.25 gm in 50 mls @ 100 mls/hr IVPB Q8H-IV [facility] PRN Reason: Protocol Stop: 11/20/17 23:59 Last Admin: 11/20/17 17:45 Dose: 100 mls/hr Insulin Aspart (Novolog Vial Sliding Scale -) 1 vial SQ ACHS [facility] PRN Reason: Protocol Last Admin: 11/20/17 17:44 Dose: 2 units Insulin Detemir (Levemir Vial) 10 units SQ BID@0700,2200 [facility] Last Admin: 11/20/17 06:41 Dose: 10 units Metoprolol Tartrate (Lopressor Injection -) 5 mg IVPUSH Q4H PRN PRN Reason: HYPERTENSION Pantoprazole Sodium (Protonix Iv) 40 mg IVPUSH DAILY [facility] Last Admin: 11/20/17 11:28 Dose: 40 mg Prednisone (Deltasone -) 40 mg PO DAILY [facility] Last Admin: 11/20/17 11:28 Dose: 40 mg Quetiapine Fumarate (Seroquel -) 25 mg PO HS [facility] Last Admin: 11/20/17 00:40 Dose: 25 mg Ranitidine HCl (Zantac -) 150 mg PO DAILY [facility] Last Admin: 11/20/17 11:27 Dose: 150 mg Roflumilast (Daliresp -) 500 mcg NGT DAILY [facility] Last Admin: 11/20/17 11:29 Dose: 500 mcg Saliva Substitute (Mouthkote Solution -) 1 applic MM DAILY [facility] Last Admin: 11/20/17 11:56 Dose: 1 applic - Objective Vital Signs: Vital Signs Temperature 98.6 F 11/20/17 16:10 Pulse Rate 107 H 11/20/17 16:10 Respiratory Rate 20 11/20/17 17:45 Blood Pressure 148/76 11/20/17 16:10 O2 Sat by Pulse Oximetry (%) 94 L 11/19/17 21:00 Constitutional: Yes: Calm Eyes: Yes: Conjunctiva Clear Neck: Yes: Other (trache) Cardiovascular: Yes: S1, S2 Gastrointestinal: Yes: Soft, Other (peg) Genitourinary: Yes: Incontinence Musculoskeletal: Yes: Muscle Weakness Edema: No Neurological: Yes: Oriented Labs: CBC, BMP 11/20/17 07:00 11/20/17 07:00 INR, PTT INR 1.02 (0.82-1.09) 11/09/17 05:50 Problem List - Problems (1) Hypernatremia Code(s): E87.0 - HYPEROSMOLALITY AND HYPERNATREMIA (2) MIRLANDE (acute kidney injury) Code(s): N17.9 - ACUTE KIDNEY FAILURE, UNSPECIFIED (3) Acute respiratory failure with hypoxia Code(s): J96.01 - ACUTE RESPIRATORY FAILURE WITH HYPOXIA (4) Diabetes Code(s): E11.9 - TYPE 2 DIABETES MELLITUS WITHOUT COMPLICATIONS (5) Failure to thrive Code(s): [id number] - Assessment/Plan Current Medications Generic Name Dose Route Start Last Admin Trade Name Freq PRN Reason Stop Dose Admin Acetaminophen 650 mg 11/17/17 18:18 Tylenol - PO Q6H PRN FEVER Acetaminophen 1,000 mg 11/17/17 18:18 Ofirmev Injection - IVPB Q6H PRN FEVER Albuterol/Ipratropium 1 amp 11/17/17 20:00 11/20/17 17:00 Duoneb - NEB 1 amp RQID [facility] Administration Amino Acids 30 ml 11/18/17 08:00 11/20/17 17:44 Prosource No Carb Liquid Pkt PO 30 ml BID@0800,1730 [facility] Administration Apixaban 5 mg 11/17/17 22:00 11/20/17 11:29 Eliquis - PO 5 mg BID [facility] Administration Artificial Tears 1 applic 11/17/17 22:00 11/20/17 00:39 Artificial Tears Ointment - OU 1 applic HS [facility] Administration Piperacillin/Tazobactam/Dextrose 2.25 gm in 50 mls @ 100 mls/hr 11/18/17 02: 00 11/20/17 17:45 Zosyn 2.25gm Ivpb (Premix) IVPB 11/20/17 23:59 100 mls/hr Q8H-IV [facility] Administration Protocol Insulin Aspart 1 vial 11/17/17 22:00 11/20/17 17:44 Novolog Vial Sliding Scale - SQ 2 units ACHS [facility] Administration Protocol Insulin Detemir 10 units 11/17/17 22:00 11/20/17 06:41 Levemir Vial SQ 10 units BID@0700,2200 [facility] Administration Metoprolol Tartrate 5 mg 11/17/17 18:18 Lopressor Injection - IVPUSH Q4H PRN HYPERTENSION Pantoprazole Sodium 40 mg 11/18/17 10:00 11/20/17 11:28 Protonix Iv IVPUSH 40 mg DAILY [facility] Administration Prednisone 40 mg 11/18/17 10:00 11/20/17 11:28 Deltasone - PO 40 mg DAILY [facility] Administration Quetiapine Fumarate 25 mg 11/17/17 22:00 11/20/17 00:40 Seroquel - PO 25 mg HS [facility] Administration Ranitidine HCl 150 mg 11/18/17 10:00 11/20/17 11:27 Zantac - PO 150 mg DAILY [facility] Administration Roflumilast 500 mcg 11/18/17 10:00 11/20/17 11:29 Daliresp - NGT 500 mcg DAILY [facility] Administration Saliva Substitute 1 applic 11/18/17 10:00 11/20/17 11:56 Mouthkote Solution - MM 1 applic DAILY [facility] Administration Impression 1. MIRLANDE 2. hypernatremia 3. chronic resp failure s/p trache 4. s/p trache 5. s/p peg 6. sepsis 7. interstitial lung disease 8. chf diastolic 9. DM 10. lactic acidosis 11. PNA Plan - renal function stable - will increase free water with feeds - repeat labs in am - cont feeds - monitor pulse ox - vent support - monitor glucose Dr Gan
[2017-11-20] MEDS ORDERED: INSULIN (NOVOLOG) ASPART 100 UNITS/ML 10ML VIAL ONE (21:13)
[2017-11-21] MEDS: INSULIN DETEMIR 100 UNITS/ML MDV SQ SCH ×2 (06:08→21:38)
[2017-11-21] MEDS: INSULIN SLIDING SCALE (NOVOLOG) 1 VIAL SQ SCH ×4 (06:08→21:39)
--- NOTE | 2017-11-21 06:18 | PN ---
Physical Exam: SUBJECTIVE: Patient seen and examined by me this AM - No major overnight events. Restrained overnight. One episode of diarrhea. No complaints. Satting in mid to high 90s on 60% FiO2. Denies f/c, CP, cough, SOB, ab pain, N/V, peripheral edema or focal neuro symptoms. Deep suctioning performed on exam. Minimal secretions per nursing. Appears diaphoretic today. OBJECTIVE: Vital Signs Intake & Output 11/18/17 11/19/17 11/20/17 11/21/17 23:59 23:59 23:59 23:59 Intake Total 4032 2001 1590 2600 Output Total 1 7 Balance 4032 2000 1583 2600 Period Temp Pulse Resp BP Sys/Sutton Pulse Ox Last 24 Hr 97.9 F-98.9 F 82-107 14-22 136-150/69-78 98 GENERAL: Cachectic man, NAD. Vented, trach'ed. HEAD: Normal with no signs of trauma. Bitemporal wasting EYES: Sclera anicteric, conjunctiva clear. No ptosis. ENT: Ears normal, nares patent, oropharynx clear without exudates, trace secretions noted in oropharynx. NECK: Trach collar in place, no erythema or drainage. Trachea midline, supple. No JVD noted. LUNGS: Mechanical breath sounds. Upper airway congestion noted. BL Fine crackles noted diffusely. No wheezes, no accessory muscle use HEART: Still with 2/6 systolic ejection murmur at LUSB. Regular rate and rhythm , S1, S2 without murmur, rub or gallop. ABDOMEN: PEG tube in place, no surrounding erythema. Scaphoid abdomen, hypoactive bowel sounds, no guarding, no rebound, no hepatosplenomegaly, no masses. EXTREMITIES: No edema in LEs. 2+ pulses, warm, well-perfused NEUROLOGICAL: CN 2-12 intact. 5/5 strength grossly. Sensation preserved in all extremities. PSYCH: Normal mood, normal affect. SKIN: Warm, dry, normal turgor, no rashes or lesions noted Laboratory Results - last 24 hr CBC, BMP 11/21/17 06:45 11/21/17 06:45 11/20/17 07:00 11/20/17 07:00 10/21/17 11/16/17 11/16/17 05:50 21:54 21:58 WBC RBC Hgb Hct MCV MCH MCHC RDW Plt Count MPV Neutrophils % Lymphocytes % Monocytes % Eosinophils % Basophils % Sodium Potassium Chloride Carbon Dioxide Anion Gap BUN Creatinine Creat Clearance w eGFR POC Glucometer > 400 > 400 Random Glucose Calcium Total Bilirubin AST ALT Alkaline Phosphatase Total Protein Albumin Beta Globulins 1.0 MERYL & SPEP Interp Globulin total =4.8 Total Protein (MERYL) 7.0 Albumin (MERYL) 2.2 Albumin/Globulin (MERYL) 0.5 Nhwge-9-Vgvumhmhl MERYL 0.7 Fpspc-7-Yubkvzgij MERYL 1.2 Gamma Globulins (MERYL) 1.8 MERYL M-Errol Not observed IEP IgG 1840 IEP IgA 439 IEP IgM 70 11/20/17 11/20/17 11/20/17 06:20 07:00 07:00 WBC 14.8 H RBC 2.55 L Hgb 7.9 L Hct 26.4 L MCV 103.7 H MCH 31.1 MCHC 30.0 L RDW 17.5 H Plt Count 142 MPV 12.2 H Neutrophils % 85.3 H Lymphocytes % 6.4 L Monocytes % 7.8 Eosinophils % 0.2 Basophils % 0.3 Sodium 150 H Potassium 4.1 Chloride 107 Carbon Dioxide 38 H Anion Gap 5 L BUN 36 H Creatinine 1.0 Creat Clearance w eGFR > 60 POC Glucometer 140 Random Glucose 166 H D Calcium 8.3 L Total Bilirubin 0.4 AST 12 L ALT 16 Alkaline Phosphatase 109 Total Protein 7.0 Albumin 2.0 L Beta Globulins MERYL & SPEP Interp Total Protein (MERYL) Albumin (MERYL) Albumin/Globulin (MERYL) Vqqsn-8-Vyabpgjom MERYL Bichi-7-Unjbpndap MERYL Gamma Globulins (MERYL) MERYL M-Errol IEP IgG IEP IgA IEP IgM 11/20/17 11/20/17 11/20/17 11:54 17:41 21:47 WBC RBC Hgb Hct MCV MCH MCHC RDW Plt Count MPV Neutrophils % Lymphocytes % Monocytes % Eosinophils % Basophils % Sodium Potassium Chloride Carbon Dioxide Anion Gap BUN Creatinine Creat Clearance w eGFR POC Glucometer 156 234 249 Random Glucose Calcium Total Bilirubin AST ALT Alkaline Phosphatase Total Protein Albumin Beta Globulins MERYL & SPEP Interp Total Protein (MERYL) Albumin (MERYL) Albumin/Globulin (MERYL) Ooskx-1-Pazcduhda MERYL Sljfp-9-Npgifxlpq MERYL Gamma Globulins (MERYL) MERYL M-Errol IEP IgG IEP IgA IEP IgM Active Medications Generic Name Dose Route Start Last Admin Trade Name Frekaren PRN Reason Stop Dose Admin Acetaminophen 650 mg 11/17/17 18:18 Tylenol - PO Q6H PRN FEVER Acetaminophen 1,000 mg 11/17/17 18:18 Ofirmev Injection - IVPB Q6H PRN FEVER Albuterol/Ipratropium 1 amp 11/17/17 20:00 11/20/17 21:00 Duoneb - NEB 1 amp RQID [facility] Administration Amino Acids 30 ml 11/18/17 08:00 11/20/17 17:44 Prosource No Carb Liquid Pkt PO 30 ml BID@0800,1730 [facility] Administration Apixaban 5 mg 11/17/17 22:00 11/20/17 21:53 Eliquis - PO 5 mg BID [facility] Administration Artificial Tears 1 applic 11/17/17 22:00 11/20/17 21:52 Artificial Tears Ointment - OU 1 applic HS [facility] Administration Insulin Aspart 1 vial 11/17/17 22:00 11/21/17 06:08 Novolog Vial Sliding Scale - SQ 4 units ACHS [facility] Administration Protocol Insulin Detemir 10 units 11/17/17 22:00 11/21/17 06:08 Levemir Vial SQ 10 units BID@0700,2200 [facility] Administration Metoprolol Tartrate 5 mg 11/17/17 18:18 Lopressor Injection - IVPUSH Q4H PRN HYPERTENSION Pantoprazole Sodium 40 mg 11/18/17 10:00 11/20/17 11:28 Protonix Iv IVPUSH 40 mg DAILY [facility] Administration Prednisone 40 mg 11/18/17 10:00 11/20/17 11:28 Deltasone - PO 40 mg DAILY [facility] Administration Quetiapine Fumarate 25 mg 11/17/17 22:00 11/20/17 21:54 Seroquel - PO 25 mg HS [facility] Administration Ranitidine HCl 150 mg 11/18/17 10:00 11/20/17 11:27 Zantac - PO 150 mg DAILY [facility] Administration Roflumilast 500 mcg 11/18/17 10:00 11/20/17 11:29 Daliresp - NGT 500 mcg DAILY [facility] Administration Saliva Substitute 1 applic 11/18/17 10:00 11/20/17 11:56 Mouthkote Solution - MM 1 applic DAILY [facility] Administration Microbiology 11/18/17 21:30 Stool Clostridium difficile Antigen ([facility]) - Final 11/18/17 21:30 Stool Clostridium difficile Toxin Assay - Final 11/13/17 17:30 Blood - Peripheral Venous Blood Culture - Final NO GROWTH AFTER 5 DAYS INCUBATION 11/13/17 17:10 Blood - Peripheral Venous Blood Culture - Final NO GROWTH AFTER 5 DAYS INCUBATION 11/14/17 14:30 Sputum - Endotrachea Suction/Ventilator Gram Stain - Final 11/14/17 14:30 Sputum - Endotrachea Suction/Ventilator Sputum Culture - Final Klebsiella Pneumoniae 11/14/17 22:00 Urine - Urine Clean Catch Urine Culture - Final Yeast Like Organism 11/15/17 11:00 Nasopharyngeal Swab Influenza Types A,B Antigen ([facility]) - Final 11/15/17 11:00 Nasopharyngeal Swab - Final 10/21/17 06:00 Serum Cryptococcal Antigen - Final 10/19/17 19:30 Sputum - Expectorated Gram Stain - Final 10/19/17 19:30 Sputum - Expectorated Sputum Culture - Final NORMAL RESPIRATORY TOYIN 10/17/17 10:10 Blood - Peripheral Venous Blood Culture - Final NO GROWTH AFTER 5 DAYS INCUBATION 10/17/17 10:10 Blood - Peripheral Venous Blood Culture - Final NO GROWTH AFTER 5 DAYS INCUBATION 10/17/17 13:57 Urine - Urine Clean Catch Urine Culture - Final NO GROWTH OBTAINED 10/17/17 13:57 Urine For Antigen Detection Legionella Antigen - Final 10/17/17 13:57 Urine For Antigen Detection Streptococcus pneumoniae Antigen (M - Final 10/17/17 10:25 Nasopharyngeal Swab Influenza Types A,B Antigen ([facility]) - Final 10/17/17 10:25 Nasopharyngeal Swab - Final Recent imaging: CXR 10/21/17 - Since 10/30/2017, the ARDS pattern has diminished minimally. Follow- up recommended. CT Abdomen 10/31 - The gallbladder demonstrates no definite CT pathology. There is nonspecific minimal to mild intrahepatic biliary tract dilatation. Clinical/ laboratory correlation is suggested as well as with follow-up CT. Dilatation of the main pancreatic duct as noted above. Pancreatic ductal dilatation was also noted on a 2013 ultrasound exam. Several small pancreatic head calcifications are seen suggestive of chronic calcific pancreatitis. No gross mass lesion is identified. Correlate with MRI/MRCP when the patient's clinical condition permits. No CT evidence of acute pancreatitis. Mild acute pancreatitis is frequently not demonstrable on CT or MRI. The partially imaged lower chest demonstrates prominent bilateral interstitial thickening with relative peripheral sparing - ? Noncardiogenic edema, infectious versus noninfectious pneumonitis, hemorrhage. Correlate clinically. This finding may be somewhat increased in comparison to a chest CT exam of 10/20/2017. No pleural effusion is seen. Bibasilar bronchiectasis. There is partial imaging of nonspecific mediastinal lymphadenopathy (as described on chest CT). Prominent atherosclerotic vascular calcifications. Mild to moderate L1 and mild L5 vertebral body compression fractures are noted which appear chronic. No bony retropulsion is seen. The visualized osseous structures appear to be diffusely demineralized. Clinical/laboratory correlation is suggested. Additional evaluation utilizing bone densitometry/DEXA scan may be considered. CXR 11/01 - Since a prior study of 10/31/2017, extensive opacification is identified throughout the lung james with little significant change. This is consistent with ARDS. No pleural effusions have developed. CXR 11/02 - No significant change from prior cxr. Still with BL reticulonodular diffuse opacification. CXR 11/05 - No significant change. BL reticulonodular pattern. CXR 11/06 - No change overall CXR 11/07 - Trach in place. Diffuse BL interstitial and possible alveolar changes. No pneumo or pleural effusions. ekg 11/08 - NSR, Rate 86, QTC 409, LVH, NANCY, no ST/Twave changes CXR 11/08 - No significant interval changes, BL parenchymal reticulonodular infiltrates, ETT tube, NG tube in place CXR 11/09 - no change from prior CXR 11/10 - No change CXR 11/13 - Good placement of ETT tube CXR 11/14 - no significant change Renal U/S 11/14 - Normal kidneys BL. CXR 11/15 - No change CXR 11/16 - R lower lobe opacity with air bronchograms; clinically correlate CXR 11/17 - No change from prior xr. CT non-con head 11/19 - No acute bleed or mass effect per [facility]. Official read pending CT cervical spine 11/19 - No evidence of gross fracture. Official read pending CXR 11/20 - Very poor study. Read pending 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 #Acute hypoxic respiratory failure (possibly 2/2 ILD vs Pneumonitis)- s/p trach 11/07 after failed vent wean; trach exchanged 11/11 - Taper FiO2 as tolerated to maintain SpO2 >90%. Satting in low 90s on 60% - c/w Prednisone 40mg daily - c/w Roflumilast and Duonebs QID - Will require wean to 50% FiO2 for placement at [place] [facility] - PEG feeds at 50ml this AM; c/w 300ml water flushes every 4 hours - Minimal secretions overnight; No SS drainage around trach site - Seroquel 25mg PO qHS for agitation - 2pt Limb restraints overnight, as pt owns - Dietary consulted about increased caloric density #Leukocytosis- WBC 11.3 today, no fevers overnight; suspected possible aspiration event; CXR with possible RLL opacity 11/16; no fevers overnight - sputum culture + for legionella, sensitive to zosyn; Urine + for yeast - last day of zosyn yesterday; off abx now - trend fever, wbc curve - flu swab negative #hypernatremia, Na 150-> 146 today: Pre-renal; FeNa 0.3%; likely secondary to hypovolemia - Renal consulted , recs appreciated - free water flushes via PEG tube 300ml q4h - Daily BMP, trend Na #MIRLANDE - Cr 1.0 today, resolved - Renal U/S nrml - Renal consulted, following - Trend Cr #agitation - repeated attempts to remove trach; pt tends to own at night - 2pt restraints at night - seroquel 25mg PO qHS #RLE DVT s/p IVC filter 10/20 and thrombectomy 10/24 -c/w Eliquis 5mg BID #Acute on diastolic CHF - Not clinically volume overloaded - c/w hold lasix - No longer requires daily wts #DM (A1c 7.4 on admission) - BGM - ISS ACHS - Levemir 10u BID as BGM well controlled #BPH - - flomax held #Nicotine dependence - c/w nicotine patch #PPX Eliquis 5mg BID Zantac 150mg daily #FEN: Free water flushes, 300ml QID Daily BMP, trend Na Cont tube feeds Dispo to ICU Discussed with attending, Dr. Leroy Reeves, PGY1 Visit type - Emergency Visit Emergency Visit: Yes ED Registration Date: 10/17/17 Care time: The patient presented to the Emergency Department on the above date and was hospitalized for further evaluation of their emergent condition. - New Patient This patient is new to me today: No - Critical Care Critical Care patient: No
[2017-11-21] MEDS: ALBUTEROL SO4 2.5/IPRATROPIUM 0.5 INH SOL 3 ML VIAL.NEB. NEB SCH ×4 (07:40→21:00)
[2017-11-21 08:22] LABS: HEMOGLOBIN 7.5 GM/dL (11.7-16.9); MCH 31.3 pg (25.7-33.7); MEAN CELL VOLUME 104.2 fl (80-96); MEAN PLT VOLUME 12.2 fl (7.5-11.1); PLATELET COUNT 150 K/MM3 (134-434); RDW 17.2 % (11.9-15.9); WHITE BLOOD COUNT 11.3 K/mm3 (4.0-10.0)
[2017-11-21 08:37] LABS: ANION GAP 4 (8-16); BLOOD UREA NITROGEN 36 mg/dL (7-18); CHLORIDE 104 mmol/L (98-107); CO2 38 mmol/L (21-32); GLUCOSE,RANDOM 258 mg/dL (74-106); MAGNESIUM 2.2 mg/dL (1.8-2.4); PHOSPHOROUS 3.2 mg/dL (2.5-4.9); POTASSIUM 3.7 mmol/L (3.5-5.1); SODIUM 146 mmol/L (136-145)
[2017-11-21 08:39] LABS: ALK PHOS 118 U/L (45-117); BILIRUBIN,TOTAL 0.5 mg/dL (0.2-1.0); SGOT/AST 9 U/L (15-37); SGPT/ALT 17 U/L (12-78)
[2017-11-21 09:47] LABS: ANISOCYTOSIS 1+; MACROCYTOSIS FEW; PLATELET ESTIMATE ADEQUATE; TEAR DROP CELLS FEW
[2017-11-21] MEDS ORDERED: PT OWN MED DRAWER 7, Y5N ONE ×2 (10:20→14:23)
[2017-11-21] MEDS: APIXABAN 5 MG TABLET PO SCH ×2 (10:22→21:37)
[2017-11-21] MEDS: RANITIDINE HCL 150 MG TABLET (FP) PO SCH (10:22)
[2017-11-21] MEDS: LACTOBACILLUS ACIDOPHILUS 1 EACH TAB (FP) PEG SCH (10:22)
[2017-11-21] MEDS: ROFLUMILAST 500 MCG TABLET NGT SCH (10:22)
[2017-11-21] MEDS: PANTOPRAZOLE SODIUM 40 MG VIAL IVPUSH SCH (10:23)
[2017-11-21] MEDS: predniSONE 20 MG TABLET (UD) PO SCH (10:23)
[2017-11-21] MEDS: AMINO ACIDS/PROTEIN HYDROLYS 30 ML LIQUID.PKT PO SCH ×2 (10:23→18:08)
[2017-11-21] MEDS: LYTES/YERBA SANTA 240 ML BOTTLE MM SCH (10:24)
--- NOTE | 2017-11-21 11:35 | PN ---
Progress Note (short form) - Note Progress Note: PULMONARY Remains vented, tachypneic at rest. No fevers recorded. Vented on volume assist control with 60% FiO2. Last Vital Signs Temp Pulse Resp BP Pulse Ox 98.7 F 112 H 26 H 148/68 95 11/21/17 07:00 11/21/17 09:06 11/21/17 09:07 11/21/17 07:00 11/21/17 09:08 Gen: vented, tachypneic Heart: tachycardic, regular Lung: bibasilar rales Abd: soft, nontender Ext: no edema CBC, BMP 11/21/17 06:45 11/21/17 06:45 Active Medications Acetaminophen (Tylenol -) 650 mg PO Q6H PRN PRN Reason: FEVER Acetaminophen (Ofirmev Injection -) 1,000 mg IVPB Q6H PRN PRN Reason: FEVER Albuterol/Ipratropium (Duoneb -) 1 amp NEB RQID [facility] Last Admin: 11/21/17 07:40 Dose: 1 amp Amino Acids (Prosource No Carb Liquid Pkt) 30 ml PO BID@0800,1730 [facility] Last Admin: 11/21/17 10:23 Dose: 30 ml Apixaban (Eliquis -) 5 mg PO BID [facility] Last Admin: 11/21/17 10:22 Dose: 5 mg Artificial Tears (Artificial Tears Ointment -) 1 applic OU HS [facility] Last Admin: 11/20/17 21:52 Dose: 1 applic Insulin Aspart (Novolog Vial Sliding Scale -) 1 vial SQ ACHS [facility] PRN Reason: Protocol Last Admin: 11/21/17 06:08 Dose: 4 units Insulin Detemir (Levemir Vial) 10 units SQ BID@0700,2200 [facility] Last Admin: 11/21/17 06:08 Dose: 10 units Lactobacillus Acidophilus (Bacid -) 1 tab PEG DAILY [facility] Last Admin: 11/21/17 10:22 Dose: 1 tab Metoprolol Tartrate (Lopressor Injection -) 5 mg IVPUSH Q4H PRN PRN Reason: HYPERTENSION Pantoprazole Sodium (Protonix Iv) 40 mg IVPUSH DAILY [facility] Last Admin: 11/21/17 10:23 Dose: 40 mg Prednisone (Deltasone -) 40 mg PO DAILY [facility] Last Admin: 11/21/17 10:23 Dose: 40 mg Quetiapine Fumarate (Seroquel -) 25 mg PO HS [facility] Last Admin: 11/20/17 21:54 Dose: 25 mg Ranitidine HCl (Zantac -) 150 mg PO DAILY [facility] Last Admin: 11/21/17 10:22 Dose: 150 mg Roflumilast (Daliresp -) 500 mcg NGT DAILY [facility] Last Admin: 11/21/17 10:22 Dose: 500 mcg Saliva Substitute (Mouthkote Solution -) 1 applic MM DAILY [facility] Last Admin: 11/21/17 10:24 Dose: 1 applic A/P Acute Hypoxic Respiratory Failure s/p Tracheostomy Pneumonia Sepsis Interstitial Lung Disease Acute Diastolic Heart Failure improved Acute Kidney Injury Lactic Acidosis resolved DM RLE DVT - monitoring off antibiotics - monitor urine output, creatinine - increase free water - continue prednisone - anxiolytics, seroquel qHS - enteral feeds - continue anticoagulation, monitor H/H - swallow eval for possible PO intake when respiratory status more stable - taper FiO2 to keep SpO2 >90%, decreased to 60% FiO2 - spontaneous breathing trials as tolerated - DVT/GI prophylaxis Problem List - Problems (1) Acute respiratory failure with hypoxia Code(s): J96.01 - ACUTE RESPIRATORY FAILURE WITH HYPOXIA (2) Pneumonia Code(s): J18.9 - PNEUMONIA, UNSPECIFIED ORGANISM (3) Diabetes Code(s): E11.9 - TYPE 2 DIABETES MELLITUS WITHOUT COMPLICATIONS
[2017-11-21] MEDS ORDERED: INSULIN (NOVOLOG) ASPART 100 UNITS/ML 10ML VIAL ONE (14:25)
--- NOTE | 2017-11-21 15:38 | PN ---
Progress Note, Physician History of Present Illness: Pt seen and examined at bedside. He appears comfortable. - Current Medication List Current Medications: Active Medications Acetaminophen (Tylenol -) 650 mg PO Q6H PRN PRN Reason: FEVER Acetaminophen (Ofirmev Injection -) 1,000 mg IVPB Q6H PRN PRN Reason: FEVER Albuterol/Ipratropium (Duoneb -) 1 amp NEB RQID [facility] Last Admin: 11/21/17 12:09 Dose: 1 amp Amino Acids (Prosource No Carb Liquid Pkt) 30 ml PO BID@0800,1730 [facility] Last Admin: 11/21/17 10:23 Dose: 30 ml Apixaban (Eliquis -) 5 mg PO BID [facility] Last Admin: 11/21/17 10:22 Dose: 5 mg Artificial Tears (Artificial Tears Ointment -) 1 applic OU HS [facility] Last Admin: 11/20/17 21:52 Dose: 1 applic Insulin Aspart (Novolog Vial Sliding Scale -) 1 vial SQ ACHS [facility] PRN Reason: Protocol Last Admin: 11/21/17 14:27 Dose: 2 units Insulin Detemir (Levemir Vial) 10 units SQ BID@0700,2200 [facility] Last Admin: 11/21/17 06:08 Dose: 10 units Lactobacillus Acidophilus (Bacid -) 1 tab PEG DAILY [facility] Last Admin: 11/21/17 10:22 Dose: 1 tab Metoprolol Tartrate (Lopressor Injection -) 5 mg IVPUSH Q4H PRN PRN Reason: HYPERTENSION Pantoprazole Sodium (Protonix Iv) 40 mg IVPUSH DAILY [facility] Last Admin: 11/21/17 10:23 Dose: 40 mg Prednisone (Deltasone -) 40 mg PO DAILY [facility] Last Admin: 11/21/17 10:23 Dose: 40 mg Quetiapine Fumarate (Seroquel -) 25 mg PO HS [facility] Last Admin: 11/20/17 21:54 Dose: 25 mg Ranitidine HCl (Zantac -) 150 mg PO DAILY [facility] Last Admin: 11/21/17 10:22 Dose: 150 mg Roflumilast (Daliresp -) 500 mcg NGT DAILY [facility] Last Admin: 11/21/17 10:22 Dose: 500 mcg Saliva Substitute (Mouthkote Solution -) 1 applic MM DAILY [facility] Last Admin: 11/21/17 10:24 Dose: 1 applic - Objective Vital Signs: Vital Signs Temperature 98.7 F 11/21/17 07:00 Pulse Rate 112 H 11/21/17 10:00 Respiratory Rate 24 11/21/17 12:10 Blood Pressure 142/62 11/21/17 10:00 O2 Sat by Pulse Oximetry (%) 95 11/21/17 09:08 Constitutional: Yes: Calm Eyes: Yes: Conjunctiva Clear HENT: Yes: Atraumatic Neck: Yes: Other (trache) Cardiovascular: Yes: S1, S2 Respiratory: Yes: Mechanically Ventilated Gastrointestinal: Yes: Soft Genitourinary: Yes: Incontinence Edema: No Neurological: Yes: Oriented Labs: CBC, BMP 11/21/17 06:45 11/21/17 06:45 INR, PTT INR 1.02 (0.82-1.09) 11/09/17 05:50 Problem List - Problems (1) Hypernatremia Code(s): E87.0 - HYPEROSMOLALITY AND HYPERNATREMIA (2) MIRLANDE (acute kidney injury) Code(s): N17.9 - ACUTE KIDNEY FAILURE, UNSPECIFIED (3) Acute respiratory failure with hypoxia Code(s): J96.01 - ACUTE RESPIRATORY FAILURE WITH HYPOXIA (4) Diabetes Code(s): E11.9 - TYPE 2 DIABETES MELLITUS WITHOUT COMPLICATIONS (5) Failure to thrive Code(s): ATI3119 - Assessment/Plan Current Medications Generic Name Dose Route Start Last Admin Trade Name Freq PRN Reason Stop Dose Admin Acetaminophen 650 mg 11/17/17 18:18 Tylenol - PO Q6H PRN FEVER Acetaminophen 1,000 mg 11/17/17 18:18 Ofirmev Injection - IVPB Q6H PRN FEVER Albuterol/Ipratropium 1 amp 11/17/17 20:00 11/21/17 12:09 Duoneb - NEB 1 amp RQID [facility] Administration Amino Acids 30 ml 11/18/17 08:00 11/21/17 10:23 Prosource No Carb Liquid Pkt PO 30 ml BID@0800,1730 [facility] Administration Apixaban 5 mg 11/17/17 22:00 11/21/17 10:22 Eliquis - PO 5 mg BID [facility] Administration Artificial Tears 1 applic 11/17/17 22:00 11/20/17 21:52 Artificial Tears Ointment - OU 1 applic HS [facility] Administration Insulin Aspart 1 vial 11/17/17 22:00 11/21/17 14:27 Novolog Vial Sliding Scale - SQ 2 units ACHS [facility] Administration Protocol Insulin Detemir 10 units 11/17/17 22:00 11/21/17 06:08 Levemir Vial SQ 10 units BID@0700,2200 [facility] Administration Lactobacillus Acidophilus 1 tab 11/21/17 10:00 11/21/17 10:22 Bacid - PEG 1 tab DAILY [facility] Administration Metoprolol Tartrate 5 mg 11/17/17 18:18 Lopressor Injection - IVPUSH Q4H PRN HYPERTENSION Pantoprazole Sodium 40 mg 11/18/17 10:00 11/21/17 10:23 Protonix Iv IVPUSH 40 mg DAILY [facility] Administration Prednisone 40 mg 11/18/17 10:00 11/21/17 10:23 Deltasone - PO 40 mg DAILY [facility] Administration Quetiapine Fumarate 25 mg 11/17/17 22:00 11/20/17 21:54 Seroquel - PO 25 mg HS [facility] Administration Ranitidine HCl 150 mg 11/18/17 10:00 11/21/17 10:22 Zantac - PO 150 mg DAILY [facility] Administration Roflumilast 500 mcg 11/18/17 10:00 11/21/17 10:22 Daliresp - NGT 500 mcg DAILY [facility] Administration Saliva Substitute 1 applic 11/18/17 10:00 11/21/17 10:24 Mouthkote Solution - MM 1 applic DAILY [facility] Administration Impression 1. MIRLANDE 2. hypernatremia 3. chronic resp failure s/p trache 4. s/p trache 5. s/p peg 6. sepsis 7. interstitial lung disease 8. chf diastolic 9. DM 10. lactic acidosis 11. PNA Plan - sodium is improving - cont feeds with free water - cont feeds - monitor pulse ox - vent support Dr Gan
[2017-11-21] MEDS: BANATROL PLUS POWDER PACKET PEG SCH ×2 (15:48→21:38)
--- NOTE | 2017-11-21 17:52 | PN ---
Teaching Attending Note Name of Resident: Dylon Reeves ATTENDING PHYSICIAN STATEMENT I saw and evaluated the patient. I reviewed the resident's note and discussed the case with the resident. I agree with the resident's findings and plan as documented. SUBJECTIVE:resting comfortable. slow to respond OBJECTIVE: Last Vital Signs Temp Pulse Resp BP Pulse Ox 98.0 F 101 H 22 149/73 95 11/21/17 15:54 11/21/17 15:54 11/21/17 15:54 11/21/17 15:54 11/21/17 09:08 General lethargic, arrousable to verbal stimuli, thin, cachectic CV S1 S2 tachycardic no murmru/rub/gallop Lungs coarse breath sounds diffusely Abdomen soft NT/ND +peg extremities no pedal edema ASSESSMENT AND PLAN: 62 yo M active smoker, pMHx of NIDDM, PUD, BPH admitted with acute hypoxic respiratory failure, and extensive RLE DVT 1. Acute hypoxic respiratory failure, suspect from ?ILD with pneumonitis- s/p intubation 11/03 with failed weaning and now s/p trach 11/07. trach exchanged 11/19 due to cuff leak and tracheal malacia. FiO2 titrated down to 60%. will attempt to titrate further as tolerated. goal SpO2 >88%. on pred 40mg 2. RLE DVT- s/p IVC filter 10/20, thrombectmy 10/24. on eliquis 5mg BID. monitor for bleeding 3. Sepsis due to suspected aspiration PNA-improved. completed 7 day course of Zosyn yesterday. 4. Acute diastolic heart failure- s/p intermittent lasix IV. clinically euvolemic. will hold for now 5. Sepsis, likely from PNA- completed abx course 6. Hypernatremia- increased free water flushes yesterday. improved 7. Diarrhea-likely due to prolonged abx use. slowly improving. cdiff negative. start bacid and banatol. 8. continuous nicotine dependence- nicotine patch 9. cachexia- malnutrition evident by body habitus. s/p PEG 11/09. tolerating TF 10. Agitation- intermittent periods of agitation. off 2 point restraints since this AM. appears slightly more lethargic than last week. as per RN falls asleep during day but easily arrousable. will monoitor for now. on seroquel HS. 11. PPX- ppi/eliquis 12. SNF placement once FiO2 <60%
[2017-11-21] MEDS: MINERAL OIL/PETROLATUM,WHITE 3.5 GM TUBE OU SCH (21:38)
[2017-11-21] MEDS: QUEtiapine FUMARATE 25 MG TABLET (FP) PO SCH (21:39)
[2017-11-22] MEDS: INSULIN SLIDING SCALE (NOVOLOG) 1 VIAL SQ SCH ×4 (06:07→23:14)
[2017-11-22] MEDS: BANATROL PLUS POWDER PACKET PEG SCH ×2 (06:07→14:23)
[2017-11-22] MEDS: INSULIN DETEMIR 100 UNITS/ML MDV SQ SCH (06:08)
--- NOTE | 2017-11-22 06:31 | PN ---
Physical Exam: SUBJECTIVE: Patient seen and examined by me this AM - Daughter visited yesterday. On mittens now, no limb restraints. No pulling at trach overnight, no falls. Pt with no complaints, denying f/c, COLLINS, CP, cough, ab pain, N/V. No diarrhea overnight per nursing. Satting 92-94% on 60% fio2. Current vent setting 12/400/60%/8. Appears very calm today. OBJECTIVE: Vital Signs Intake & Output 11/19/17 11/20/17 11/21/17 11/22/17 23:59 23:59 23:59 23:59 Intake Total 2001 1590 4200 1800 Output Total 1 7 Balance 2000 1583 4200 1800 Period Temp Pulse Resp BP Sys/Sutton Pulse Ox Last 24 Hr 97.9 F-98.7 F 101-118 20-26 137-149/62-75 95-95 GENERAL: Cachectic man, NAD. Vented w/ trach HEAD: Normal with no signs of trauma. Bitemporal wasting EYES: Sclera anicteric, conjunctiva clear. No ptosis. ENT: Ears normal, nares patent, oropharynx clear without exudates, trace secretions noted in oropharynx. NECK: Trach collar, no erythema or drainage. Trachea midline, supple. No JVD noted. LUNGS: Mechanical breath sounds. Less upper airway congestion. still with BL Fine crackles noted diffusely. No wheezes, no accessory muscle use HEART: 2/6 systolic ejection murmur at LUSB. Regular rate and rhythm, S1, S2 without murmur, rub or gallop. ABDOMEN: PEG tube in place, no erythema or purulence. Scaphoid abdomen, hypoactive bowel sounds, no guarding, no rebound, no hepatosplenomegaly, no masses. EXTREMITIES: No edema in LEs. 2+ pulses, warm, well-perfused NEUROLOGICAL: CN 2-12 intact. 5/5 strength grossly. Sensation preserved in all extremities. PSYCH: Normal mood, normal affect. SKIN: Warm, dry, normal turgor, no rashes or lesions noted Laboratory Results - last 24 hr CBC, BMP 11/22/17 07:20 11/22/17 07:20 11/21/17 06:45 11/21/17 06:45 11/21/17 11/21/17 11/21/17 06:45 06:45 14:16 WBC 11.3 H RBC 2.40 L Hgb 7.5 L Hct 25.0 L MCV 104.2 H MCH 31.3 MCHC 30.0 L RDW 17.2 H Plt Count 150 MPV 12.2 H Total Counted 100 Neutrophils % No Result Required. Neutrophils % (Manual) 84.0 H Band Neutrophils % 3.0 Lymphocytes % No Result Required. Lymphocytes % (Manual) 9.0 D Monocytes % (Manual) 4 Platelet Estimate Adequate Basophilic Stippling 1+ Anisocytosis 1+ Macrocytosis Few Tear Drop Cells Few Stomatocytes 4+ Schistocytes 1+ Sodium 146 H Potassium 3.7 Chloride 104 Carbon Dioxide 38 H Anion Gap 4 L BUN 36 H Creatinine 1.0 Creat Clearance w eGFR > 60 POC Glucometer 228 Random Glucose 258 H D Calcium 8.0 L Phosphorus 3.2 D Magnesium 2.2 Total Bilirubin 0.5 D AST 9 L D ALT 17 Alkaline Phosphatase 118 H Total Protein 7.0 Albumin 2.0 L 11/21/17 11/21/17 11/22/17 18:00 21:25 06:05 WBC RBC Hgb Hct MCV MCH MCHC RDW Plt Count MPV Total Counted Neutrophils % Neutrophils % (Manual) Band Neutrophils % Lymphocytes % Lymphocytes % (Manual) Monocytes % (Manual) Platelet Estimate Basophilic Stippling Anisocytosis Macrocytosis Tear Drop Cells Stomatocytes Schistocytes Sodium Potassium Chloride Carbon Dioxide Anion Gap BUN Creatinine Creat Clearance w eGFR POC Glucometer 222 173 373 Random Glucose Calcium Phosphorus Magnesium Total Bilirubin AST ALT Alkaline Phosphatase Total Protein Albumin Active Medications Generic Name Dose Route Start Last Admin Trade Name Freq PRN Reason Stop Dose Admin Acetaminophen 650 mg 11/17/17 18:18 Tylenol - PO Q6H PRN FEVER Acetaminophen 1,000 mg 11/17/17 18:18 Ofirmev Injection - IVPB Q6H PRN FEVER Albuterol/Ipratropium 1 amp 11/17/17 20:00 11/21/17 21:00 Duoneb - NEB 1 amp RQID [facility] Administration Amino Acids 30 ml 11/18/17 08:00 11/21/17 18:08 Prosource No Carb Liquid Pkt PO 30 ml BID@0800,1730 [facility] Administration Apixaban 5 mg 11/17/17 22:00 11/21/17 21:37 Eliquis - PO 5 mg BID [facility] Administration Artificial Tears 1 applic 11/17/17 22:00 11/21/17 21:38 Artificial Tears Ointment - OU 1 applic HS [facility] Administration Insulin Aspart 1 vial 11/17/17 22:00 11/22/17 06:07 Novolog Vial Sliding Scale - SQ 8 units ACHS [facility] Administration Protocol Insulin Detemir 10 units 11/17/17 22:00 11/22/17 06:08 Levemir Vial SQ 10 units BID@0700,2200 [facility] Administration Lactobacillus Acidophilus 1 tab 11/21/17 10:00 11/21/17 10:22 Bacid - PEG 1 tab DAILY [facility] Administration Metoprolol Tartrate 5 mg 11/17/17 18:18 Lopressor Injection - IVPUSH Q4H PRN HYPERTENSION Pantoprazole Sodium 40 mg 11/18/17 10:00 11/21/17 10:23 Protonix Iv IVPUSH 40 mg DAILY [facility] Administration Prednisone 40 mg 11/18/17 10:00 11/21/17 10:23 Deltasone - PO 40 mg DAILY [facility] Administration Quetiapine Fumarate 25 mg 11/17/17 22:00 11/21/17 21:39 Seroquel - PO 25 mg HS [facility] Administration Ranitidine HCl 150 mg 11/18/17 10:00 11/21/17 10:22 Zantac - PO 150 mg DAILY [facility] Administration Roflumilast 500 mcg 11/18/17 10:00 11/21/17 10:22 Daliresp - NGT 500 mcg DAILY [facility] Administration Saliva Substitute 1 applic 11/18/17 10:00 11/21/17 10:24 Mouthkote Solution - MM 1 applic DAILY [facility] Administration Microbiology 11/18/17 21:30 Stool Clostridium difficile Antigen ([facility]) - Final 11/18/17 21:30 Stool Clostridium difficile Toxin Assay - Final 11/13/17 17:30 Blood - Peripheral Venous Blood Culture - Final NO GROWTH AFTER 5 DAYS INCUBATION 11/13/17 17:10 Blood - Peripheral Venous Blood Culture - Final NO GROWTH AFTER 5 DAYS INCUBATION 11/14/17 14:30 Sputum - Endotrachea Suction/Ventilator Gram Stain - Final 11/14/17 14:30 Sputum - Endotrachea Suction/Ventilator Sputum Culture - Final Klebsiella Pneumoniae 11/14/17 22:00 Urine - Urine Clean Catch Urine Culture - Final Yeast Like Organism 11/15/17 11:00 Nasopharyngeal Swab Influenza Types A,B Antigen ([facility]) - Final 11/15/17 11:00 Nasopharyngeal Swab - Final 10/21/17 06:00 Serum Cryptococcal Antigen - Final 10/19/17 19:30 Sputum - Expectorated Gram Stain - Final 10/19/17 19:30 Sputum - Expectorated Sputum Culture - Final NORMAL RESPIRATORY TOYIN 10/17/17 10:10 Blood - Peripheral Venous Blood Culture - Final NO GROWTH AFTER 5 DAYS INCUBATION 10/17/17 10:10 Blood - Peripheral Venous Blood Culture - Final NO GROWTH AFTER 5 DAYS INCUBATION 10/17/17 13:57 Urine - Urine Clean Catch Urine Culture - Final NO GROWTH OBTAINED 10/17/17 13:57 Urine For Antigen Detection Legionella Antigen - Final 10/17/17 13:57 Urine For Antigen Detection Streptococcus pneumoniae Antigen (M - Final 10/17/17 10:25 Nasopharyngeal Swab Influenza Types A,B Antigen ([facility]) - Final 10/17/17 10:25 Nasopharyngeal Swab - Final Recent imaging: CXR 10/21/17 - Since 10/30/2017, the ARDS pattern has diminished minimally. Follow- up recommended. CT Abdomen 10/31 - The gallbladder demonstrates no definite CT pathology. There is nonspecific minimal to mild intrahepatic biliary tract dilatation. Clinical/ laboratory correlation is suggested as well as with follow-up CT. Dilatation of the main pancreatic duct as noted above. Pancreatic ductal dilatation was also noted on a 2013 ultrasound exam. Several small pancreatic head calcifications are seen suggestive of chronic calcific pancreatitis. No gross mass lesion is identified. Correlate with MRI/MRCP when the patient's clinical condition permits. No CT evidence of acute pancreatitis. Mild acute pancreatitis is frequently not demonstrable on CT or MRI. The partially imaged lower chest demonstrates prominent bilateral interstitial thickening with relative peripheral sparing - ? Noncardiogenic edema, infectious versus noninfectious pneumonitis, hemorrhage. Correlate clinically. This finding may be somewhat increased in comparison to a chest CT exam of 10/20/2017. No pleural effusion is seen. Bibasilar bronchiectasis. There is partial imaging of nonspecific mediastinal lymphadenopathy (as described on chest CT). Prominent atherosclerotic vascular calcifications. Mild to moderate L1 and mild L5 vertebral body compression fractures are noted which appear chronic. No bony retropulsion is seen. The visualized osseous structures appear to be diffusely demineralized. Clinical/laboratory correlation is suggested. Additional evaluation utilizing bone densitometry/DEXA scan may be considered. CXR 11/01 - Since a prior study of 10/31/2017, extensive opacification is identified throughout the lung james with little significant change. This is consistent with ARDS. No pleural effusions have developed. CXR 11/02 - No significant change from prior cxr. Still with BL reticulonodular diffuse opacification. CXR 11/05 - No significant change. BL reticulonodular pattern. CXR 11/06 - No change overall CXR 11/07 - Trach in place. Diffuse BL interstitial and possible alveolar changes. No pneumo or pleural effusions. ekg 11/08 - NSR, Rate 86, QTC 409, LVH, NANCY, no ST/Twave changes CXR 11/08 - No significant interval changes, BL parenchymal reticulonodular infiltrates, ETT tube, NG tube in place CXR 11/09 - no change from prior CXR 11/10 - No change CXR 11/13 - Good placement of ETT tube CXR 11/14 - no significant change Renal U/S 11/14 - Normal kidneys BL. CXR 11/15 - No change CXR 11/16 - R lower lobe opacity with air bronchograms; clinically correlate CXR 11/17 - No change from prior xr. CT non-con head 11/19 - No acute bleed or mass effect per [facility]. Official read pending CT cervical spine 11/19 - No evidence of gross fracture. Official read pending CXR 11/20 - No significant change. Chronic ILD 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 #Acute hypoxic respiratory failure (possibly 2/2 ILD vs Pneumonitis)- s/p trach 11/07 after failed vent wean; trach exchanged 11/11 - Will taper O2 down to 50% today. Maintain sats >88% - c/w Prednisone 40mg daily - c/w Roflumilast and Duonebs QID - PEG feeds at 50ml this AM; c/w 300ml water flushes every 4 hours - Minimal secretions overnight; No SS drainage around trach site - Seroquel 25mg PO qHS for agitation - Pt on todd mittens; tends to - Plan for placement at [facility] if tolerates wean to 50% #Leukocytosis- WBC 12.4 today, no fevers overnight; suspected possible aspiration event; CXR with possible RLL opacity 11/16; no fevers overnight - currently off abx - trend fever, wbc curve - flu swab negative - If febrile, send cultures and start on empiric abx #hypernatremia, Na 146-> 147 today: Pre-renal; FeNa 0.3%; likely secondary to hypovolemia - Renal consulted , recs appreciated - free water flushes via PEG tube 300ml q4h - Daily BMP, trend Na #MIRLANDE - Cr 1.0-> 0.9 today, resolved - Renal U/S nrml - Renal consulted, following - Trend Cr #agitation - repeated attempts to remove trach; pt tends to own at night - todd mittens - seroquel 25mg PO qHS #RLE DVT s/p IVC filter 10/20 and thrombectomy 10/24 -c/w Eliquis 5mg BID #Acute on diastolic CHF - Not clinically volume overloaded - c/w hold lasix - No longer requires daily wts #DM (A1c 7.4 on admission) - BG 303 today - BGM - ISS ACHS - increased levemir from 10 -> 13u BID; will monitor #BPH - - flomax held #Nicotine dependence - c/w nicotine patch #PPX Eliquis 5mg BID Zantac 150mg daily #FEN: Free water flushes, 300ml QID Daily BMP, trend Na Cont tube feeds Dispo to ICU Discussed with attending, Dr. Leroy Reeves, PGY1 Visit type - Emergency Visit Emergency Visit: Yes ED Registration Date: 10/17/17 Care time: The patient presented to the Emergency Department on the above date and was hospitalized for further evaluation of their emergent condition. - New Patient This patient is new to me today: No - Critical Care Critical Care patient: No
[2017-11-22 07:41] LABS: HEMATOCRIT 24.6 % (35.4-49); HEMOGLOBIN 7.5 GM/dL (11.7-16.9); MCH 31.1 pg (25.7-33.7); MCHC 30.5 g/dl (32.0-35.9); MEAN PLT VOLUME 11.9 fl (7.5-11.1); PLATELET COUNT 176 K/MM3 (134-434); RBC 2.41 M/mm3 (4.00-5.60); RDW 17.1 % (11.9-15.9); WHITE BLOOD COUNT 12.4 K/mm3 (4.0-10.0)
[2017-11-22] MEDS: ALBUTEROL SO4 2.5/IPRATROPIUM 0.5 INH SOL 3 ML VIAL.NEB. NEB SCH ×4 (07:43→20:57)
[2017-11-22 08:29] LABS: ANION GAP 4 (8-16); BLOOD UREA NITROGEN 35 mg/dL (7-18); CALCIUM 8.5 mg/dL (8.5-10.1); CHLORIDE 103 mmol/L (98-107); CO2 40 mmol/L (21-32); POTASSIUM 3.6 mmol/L (3.5-5.1); SODIUM 147 mmol/L (136-145)
[2017-11-22 08:30] LABS: CREATININE 0.9 mg/dL (0.7-1.3)
[2017-11-22 08:34] LABS: GLUCOSE,RANDOM 303 mg/dL (74-106)
[2017-11-22] MEDS ORDERED: INSULIN (NOVOLOG) ASPART 100 UNITS/ML 10ML VIAL ONE (10:54)
[2017-11-22] MEDS: AMINO ACIDS/PROTEIN HYDROLYS 30 ML LIQUID.PKT PO SCH ×2 (11:02→18:07)
[2017-11-22] MEDS: ROFLUMILAST 500 MCG TABLET NGT SCH (11:03)
[2017-11-22] MEDS: predniSONE 20 MG TABLET (UD) PO SCH (11:03)
[2017-11-22] MEDS: PANTOPRAZOLE SODIUM 40 MG VIAL IVPUSH SCH (11:04)
[2017-11-22] MEDS: LACTOBACILLUS ACIDOPHILUS 1 EACH TAB (FP) PEG SCH (11:04)
[2017-11-22] MEDS: APIXABAN 5 MG TABLET PO SCH ×2 (11:04→23:12)
[2017-11-22] MEDS: RANITIDINE HCL 150 MG TABLET (FP) PO SCH (11:05)
--- NOTE | 2017-11-22 11:45 | PN ---
Teaching Attending Note Name of Resident: Dylon Reeves ATTENDING PHYSICIAN STATEMENT I saw and evaluated the patient. I reviewed the resident's note and discussed the case with the resident. I agree with the resident's findings and plan as documented. SUBJECTIVE:resting comfortable. shaked head "no" if he having difficulty breathing or CP OBJECTIVE: Last Vital Signs Temp Pulse Resp BP Pulse Ox 98.1 F 111 H 27 H 142/52 97 11/22/17 06:22 11/22/17 10:02 11/22/17 09:42 11/22/17 06:22 11/22/17 10:02 General alert, thin, cachectic CV S1 S2 tachycardic no murmru/rub/gallop Lungs coarse breath sounds diffusely Abdomen soft NT/ND +peg extremities no pedal edema ASSESSMENT AND PLAN: 62 yo M active smoker, pMHx of NIDDM, PUD, BPH admitted with acute hypoxic respiratory failure, and extensive RLE DVT 1. Acute hypoxic respiratory failure, suspect from ?ILD with pneumonitis- s/p intubation 11/03 with failed weaning and now s/p trach 11/07. trach exchanged 11/19 due to cuff leak and tracheal malacia. FiO2 60%. requested respiratory to titrate down FiO2 as tolerated. goal SpO2 >88%. on pred 40mg 2. RLE DVT- s/p IVC filter 10/20, thrombectmy 10/24. on eliquis 5mg BID. monitor for bleeding 3. Sepsis due to suspected aspiration PNA-improved. completed 7 day course of Zosyn 4. Acute diastolic heart failure- s/p intermittent lasix IV. clinically euvolemic. will hold for now 5. Iron deficiency anemia and anemia of chronic disease- possible due to frequent blood draws and comorbidities. in setting of low Hgb and tachycardia will txn 1 unit PRBC. no obvious signs of bleeding. will start iron supplementation 6. Hypernatremia- stable. cont free water flushes 7. antibiotic assoc Diarrhea-likely due to prolonged abx use. now resolved. on bacid and banatol. 8. continuous nicotine dependence- nicotine patch 9. cachexia- severe malnutrition evident by body habitus. s/p PEG 11/09. tolerating TF 10. DM- uncontrolled. increase levemir to 13units BID. cont to titrate as needed. 11. Agitation- intermittent periods of agitation. off 2 point restraints x24H. on seroquel HS. 12. PPX- ppi/eliquis 13. SNF placement once FiO2 <60%
[2017-11-22] MEDS ORDERED: INSULIN DETEMIR 100 UNITS/ML MDV SQ SCH (12:02)
--- NOTE | 2017-11-22 12:58 | PN ---
Progress Note, Physician History of Present Illness: Pt seen and examined at bedside. He is awake and appears comfortable. - Current Medication List Current Medications: Active Medications Acetaminophen (Tylenol -) 650 mg PO Q6H PRN PRN Reason: FEVER Acetaminophen (Ofirmev Injection -) 1,000 mg IVPB Q6H PRN PRN Reason: FEVER Albuterol/Ipratropium (Duoneb -) 1 amp NEB RQID [facility] Last Admin: 11/22/17 11:01 Dose: 1 amp Amino Acids (Prosource No Carb Liquid Pkt) 30 ml PO BID@0800,1730 [facility] Last Admin: 11/22/17 11:02 Dose: 30 ml Apixaban (Eliquis -) 5 mg PO BID [facility] Last Admin: 11/22/17 11:04 Dose: 5 mg Artificial Tears (Artificial Tears Ointment -) 1 applic OU HS [facility] Last Admin: 11/21/17 21:38 Dose: 1 applic Ferrous Sulfate (Feosol) 300 mg GT DAILY [facility] Insulin Aspart (Novolog Vial Sliding Scale -) 1 vial SQ ACHS [facility] PRN Reason: Protocol Last Admin: 11/22/17 11:55 Dose: Not Given Insulin Detemir (Levemir Vial) 13 units SQ BID@0700,2200 [facility] Lactobacillus Acidophilus (Bacid -) 1 tab PEG DAILY [facility] Last Admin: 11/22/17 11:04 Dose: 1 tab Metoprolol Tartrate (Lopressor Injection -) 5 mg IVPUSH Q4H PRN PRN Reason: HYPERTENSION Pantoprazole Sodium (Protonix Iv) 40 mg IVPUSH DAILY [facility] Last Admin: 11/22/17 11:04 Dose: 40 mg Prednisone (Deltasone -) 40 mg PO DAILY [facility] Last Admin: 11/22/17 11:03 Dose: 40 mg Quetiapine Fumarate (Seroquel -) 25 mg PO HS [facility] Last Admin: 11/21/17 21:39 Dose: 25 mg Ranitidine HCl (Zantac -) 150 mg PO DAILY [facility] Last Admin: 11/22/17 11:05 Dose: 150 mg Roflumilast (Daliresp -) 500 mcg NGT DAILY [facility] Last Admin: 11/22/17 11:03 Dose: 500 mcg Saliva Substitute (Mouthkote Solution -) 1 applic MM DAILY [facility] Last Admin: 11/21/17 10:24 Dose: 1 applic - Objective Vital Signs: Vital Signs Temperature 98.1 F 11/22/17 06:22 Pulse Rate 111 H 11/22/17 10:02 Respiratory Rate 27 H 11/22/17 09:42 Blood Pressure 142/52 11/22/17 06:22 O2 Sat by Pulse Oximetry (%) 97 11/22/17 10:02 Constitutional: Yes: Calm Eyes: Yes: Conjunctiva Clear HENT: Yes: Atraumatic Neck: Yes: Other (trache) Cardiovascular: Yes: S1, S2 Respiratory: Yes: Mechanically Ventilated Gastrointestinal: Yes: Other (peg) Musculoskeletal: Yes: Muscle Weakness Edema: No Neurological: Yes: Oriented Psychiatric: Yes: Oriented Labs: CBC, BMP 11/22/17 07:20 11/22/17 07:20 INR, PTT INR 1.02 (0.82-1.09) 11/09/17 05:50 Problem List - Problems (1) Hypernatremia Code(s): E87.0 - HYPEROSMOLALITY AND HYPERNATREMIA (2) MIRLANDE (acute kidney injury) Code(s): N17.9 - ACUTE KIDNEY FAILURE, UNSPECIFIED (3) Acute respiratory failure with hypoxia Code(s): J96.01 - ACUTE RESPIRATORY FAILURE WITH HYPOXIA (4) Diabetes Code(s): E11.9 - TYPE 2 DIABETES MELLITUS WITHOUT COMPLICATIONS (5) Failure to thrive Code(s): EMX1557 - Assessment/Plan Current Medications Generic Name Dose Route Start Last Admin Trade Name Freq PRN Reason Stop Dose Admin Acetaminophen 650 mg 11/17/17 18:18 Tylenol - PO Q6H PRN FEVER Acetaminophen 1,000 mg 11/17/17 18:18 Ofirmev Injection - IVPB Q6H PRN FEVER Albuterol/Ipratropium 1 amp 11/17/17 20:00 11/22/17 11:01 Duoneb - NEB 1 amp RQID [facility] Administration Amino Acids 30 ml 11/18/17 08:00 11/22/17 11:02 Prosource No Carb Liquid Pkt PO 30 ml BID@0800,1730 [facility] Administration Apixaban 5 mg 11/17/17 22:00 11/22/17 11:04 Eliquis - PO 5 mg BID [facility] Administration Artificial Tears 1 applic 11/17/17 22:00 11/21/17 21:38 Artificial Tears Ointment - OU 1 applic HS [facility] Administration Ferrous Sulfate 300 mg 11/22/17 12:00 Feosol GT DAILY [facility] Insulin Aspart 1 vial 11/17/17 22:00 11/22/17 11:55 Novolog Vial Sliding Scale - SQ Not Given ACHS [facility] Protocol Insulin Detemir 13 units 11/22/17 12:02 Levemir Vial SQ BID@0700,2200 [facility] Lactobacillus Acidophilus 1 tab 11/21/17 10:00 11/22/17 11:04 Bacid - PEG 1 tab DAILY [facility] Administration Metoprolol Tartrate 5 mg 11/17/17 18:18 Lopressor Injection - IVPUSH Q4H PRN HYPERTENSION Pantoprazole Sodium 40 mg 11/18/17 10:00 11/22/17 11:04 Protonix Iv IVPUSH 40 mg DAILY [facility] Administration Prednisone 40 mg 11/18/17 10:00 11/22/17 11:03 Deltasone - PO 40 mg DAILY [facility] Administration Quetiapine Fumarate 25 mg 11/17/17 22:00 11/21/17 21:39 Seroquel - PO 25 mg HS [facility] Administration Ranitidine HCl 150 mg 11/18/17 10:00 11/22/17 11:05 Zantac - PO 150 mg DAILY [facility] Administration Roflumilast 500 mcg 11/18/17 10:00 11/22/17 11:03 Daliresp - NGT 500 mcg DAILY [facility] Administration Saliva Substitute 1 applic 11/18/17 10:00 11/21/17 10:24 Mouthkote Solution - MM 1 applic DAILY [facility] Administration Impression 1. MIRLANDE 2. hypernatremia 3. chronic resp failure s/p trache 4. s/p trache 5. s/p peg 6. sepsis 7. interstitial lung disease 8. chf diastolic 9. DM 10. lactic acidosis 11. PNA Plan - cont feeds - cont free water - will need better glucose control - renal function is improving - pulm follow up - monitor pulse ox - vent support Dr Gan
[2017-11-22] MEDS ORDERED: FERROUS SO4 300 MG/5 ML ORAL SOLN UNIT DOSE CUPS GT SCH (13:30)
--- NOTE | 2017-11-22 13:55 | PN ---
Progress Note, Physician History of Present Illness: PULMONARY AWAKE,ON VENT SUPPORT,AC MODE,MILDLY TACHYPNEIC - Current Medication List Current Medications: Active Medications Acetaminophen (Tylenol -) 650 mg PO Q6H PRN PRN Reason: FEVER Acetaminophen (Ofirmev Injection -) 1,000 mg IVPB Q6H PRN PRN Reason: FEVER Albuterol/Ipratropium (Duoneb -) 1 amp NEB RQID [facility] Last Admin: 11/22/17 11:01 Dose: 1 amp Amino Acids (Prosource No Carb Liquid Pkt) 30 ml PO BID@0800,1730 [facility] Last Admin: 11/22/17 11:02 Dose: 30 ml Apixaban (Eliquis -) 5 mg PO BID [facility] Last Admin: 11/22/17 11:04 Dose: 5 mg Artificial Tears (Artificial Tears Ointment -) 1 applic OU HS [facility] Last Admin: 11/21/17 21:38 Dose: 1 applic Ferrous Sulfate (Feosol) 300 mg GT DAILY [facility] Insulin Aspart (Novolog Vial Sliding Scale -) 1 vial SQ ACHS [facility] PRN Reason: Protocol Last Admin: 11/22/17 11:55 Dose: Not Given Insulin Detemir (Levemir Vial) 13 units SQ BID@0700,2200 [facility] Lactobacillus Acidophilus (Bacid -) 1 tab PEG DAILY [facility] Last Admin: 11/22/17 11:04 Dose: 1 tab Metoprolol Tartrate (Lopressor Injection -) 5 mg IVPUSH Q4H PRN PRN Reason: HYPERTENSION Pantoprazole Sodium (Protonix Iv) 40 mg IVPUSH DAILY [facility] Last Admin: 11/22/17 11:04 Dose: 40 mg Prednisone (Deltasone -) 40 mg PO DAILY [facility] Last Admin: 11/22/17 11:03 Dose: 40 mg Quetiapine Fumarate (Seroquel -) 25 mg PO HS [facility] Last Admin: 11/21/17 21:39 Dose: 25 mg Ranitidine HCl (Zantac -) 150 mg PO DAILY [facility] Last Admin: 11/22/17 11:05 Dose: 150 mg Roflumilast (Daliresp -) 500 mcg NGT DAILY [facility] Last Admin: 11/22/17 11:03 Dose: 500 mcg Saliva Substitute (Mouthkote Solution -) 1 applic MM DAILY [facility] Last Admin: 11/21/17 10:24 Dose: 1 applic - Objective Vital Signs: Vital Signs Temperature 98.1 F 11/22/17 06:22 Pulse Rate 111 H 11/22/17 10:02 Respiratory Rate 26 H 11/22/17 10:00 Blood Pressure 142/72 11/22/17 10:00 O2 Sat by Pulse Oximetry (%) 97 11/22/17 10:02 Constitutional: Yes: Calm, Thin Eyes: Yes: WNL HENT: Yes: WNL Neck: Yes: WNL Cardiovascular: Yes: Regular Rate and Rhythm, S1, S2 Respiratory: Yes: Rhonchi (FEW SCATTERED RHONCHI) Gastrointestinal: Yes: Normal Bowel Sounds, Soft Extremities: Yes: WNL Edema: No Labs: CBC, BMP 11/22/17 07:20 11/22/17 07:20 INR, PTT INR 1.02 (0.82-1.09) 11/09/17 05:50 Assessment/Plan A/P Acute Hypoxic Respiratory Failure s/p Tracheostomy Pneumonia Sepsis Interstitial Lung Disease Acute Diastolic Heart Failure improved Acute Kidney Injury Lactic Acidosis resolved DM RLE DVT - monitoring off antibiotics - monitor urine output, creatinine - increase free water - prednisone - anxiolytics, seroquel qHS - enteral feeds - anticoagulation, monitor H/H - swallow eval for possible PO intake when respiratory status more stable - taper FiO2 to keep SpO2 >90%, decreased to 60% FiO2 - spontaneous breathing trials as tolerated - DVT/GI prophylaxis Problem List - Problems (1) Acute respiratory failure with hypoxia Code(s): J96.01 - ACUTE RESPIRATORY FAILURE WITH HYPOXIA (2) Pneumonia Code(s): J18.9 - PNEUMONIA, UNSPECIFIED ORGANISM (3) Diabetes Code(s): E11.9 - TYPE 2 DIABETES MELLITUS WITHOUT COMPLICATIONS
[2017-11-22] MEDS: LYTES/YERBA SANTA 240 ML BOTTLE MM SCH (18:07)
[2017-11-22] MEDS ORDERED: MIDAZOLAM HCL 2 MG/2 ML SINGLE DOSE VIAL IVPUSH ONE (21:07)
[2017-11-22] MEDS ORDERED: MIDAZOLAM HCL 5 MG/1 ML Single Dose Vial IVPUSH ONE ×2 (21:16→23:30)
[2017-11-22 21:22] LABS: ARTERIAL BLD GAS O2 SATURATION 98.9 % (90-98.9); ARTERIAL BLOOD GAS pH 7.31 (7.35-7.45)
[2017-11-22 21:23] LABS: ALLENS TEST POSITIVE; ARTERIAL BLOOD GAS BASE EXCESS 11.3 meq/l (-2-2)
[2017-11-22 21:27] LABS: ARTERIAL BLOOD GAS PCO2 80.7 mmHg (35-45)
[2017-11-22] MEDS ORDERED: LORazepam 2 MG/ML SDV VIAL IVPUSH ONE (21:30)
--- NOTE | 2017-11-22 21:44 | PN ---
Progress Note (short form) - Note Progress Note: Procedure Note Pt had 0 volumes on vent. Cuff broken. Changed after speaking with daughter to Bivona Silicone #7 ([id number]). Confirmed cuff was broken on prior tracheostomy. Good volumes after. Will transfer to ICU for monitoring. CT scan of chest tomorrow bc trach change x 3 since first. Must have some tracheomalacia. May need custom tracheostomy if happens again but since cuff was broken, may not.
--- NOTE | 2017-11-22 21:46 | HOSP ---
Subjective - Review of Symptoms Events since last encounter: RN called that patient is not maintain a Tidal volume. Alba seen and examined Patient on ventilator support, AC mode, conscious, alert, chest: b/l air entry present, no wheezing cvs s1s2 normal spo2 100% on fio2 100. TV 0. PEEP 8 BP 144/[address] swartz were called. ventilator was changed but TV was still zero. ativan given. tracheostomy tube Bivona Silicone #7 ([id number]) was placed. Good TV after change Broken cuff of old tube confirmed Patient transferred to icu. Discussed with icu team cxr ordered Physical Examination Vital Signs: Vital Signs Temperature 98.4 F 11/22/17 18:30 Pulse Rate 116 H 11/22/17 18:30 Respiratory Rate 28 H 11/22/17 18:30 Blood Pressure 140/74 11/22/17 18:30 O2 Sat by Pulse Oximetry (%) 97 11/22/17 10:02 Labs: CBC, BMP 11/22/17 07:20 11/22/17 07:20 Visit type - Emergency Visit Emergency Visit: Yes ED Registration Date: 10/17/17 Care time: The patient presented to the Emergency Department on the above date and was hospitalized for further evaluation of their emergent condition. - New Patient This patient is new to me today: Yes Date on this admission: 11/22/17 - Critical Care Critical Care patient: Yes Total Critical Care Time (in minutes): 45 Critical Care Statement: The care of this patient involved high complexity decision making to prevent further life threatening deterioration of the patient 's condition and/or to evaluate & treat vital organ system(s) failure or risk of failure.
--- NOTE | 2017-11-22 21:55 | CONSULT ---
Consult Consult Specialty:: pulmonary/ critical care Referred by:: James Reason for Consultation:: respiratory failure - History of Present Illness Chief Complaint: s/p trach change History of Present Illness: 62 y/o man with h/o DM, diastolic heart failure who initially presented with SOB and cough. Pt was found to be hypoxic and was admitted to the ICU for respiratory failure requiring bi-pap. He was treated with abx for a possible CAP and was diuresed for component of heart failure and was weaned to HFNC. Pt was found to have DVT for which he underwent IVF filter and was started on heparin, eventually underwent thrombectomy. He had CTA which was negative for PE but was concerning for diffuse ILD. On 11/01 pt became more hypoxic and again required bi-pap, was intubated 11/04 and underwent trach 11/07 and PEG. Pt was transferred to the floor on 11/13 but returned to ICU for tachycardia, lethargy and hypoxia requiring 100% FiO2. He was given metoprolol with resolution of tachycardia. His trach was noted to have a leak and was changed with resolution of leak. Around this time he developed new consolidation on CXR and was started on zosyn for PNA, completed course. He was transferred back to the floor where he has been requiring 60% FiO2. He had some MIRLANDE which has been resolving and hypernatremia for which he has been being treated with free water. On the evening of 11/22 RN was called to bedside because they were unable to maintain a tidal volume. Anesthesia and Dr. Rosario were called to bedside and pt was given ativan, trach was changed to Bivona Silicone #7. Pt noted to have improved volumes on the vent post trach change and old trach cuff was confirmed broken. Pt was transferred to ICU for further monitoring of his respiratory status given tenuous airway. On arrival to ICU pt still not getting full volumes, trach very positional. CXR done. ABG 7.25/95/60. Volumes increased on vent to 500 with exhaled volumes increased from 200 to 350. Repeat ABG 7.35/74/76. Active Medications Acetaminophen (Tylenol -) 650 mg PO Q6H PRN PRN Reason: FEVER Acetaminophen (Ofirmev Injection -) 1,000 mg IVPB Q6H PRN PRN Reason: FEVER Albuterol/Ipratropium (Duoneb -) 1 amp NEB RQID [facility] Last Admin: 11/22/17 20:57 Dose: 1 amp Amino Acids (Prosource No Carb Liquid Pkt) 30 ml PO BID@0800,1730 [facility] Last Admin: 11/22/17 18:07 Dose: 30 ml Apixaban (Eliquis -) 5 mg PO BID [facility] Last Admin: 11/22/17 11:04 Dose: 5 mg Artificial Tears (Artificial Tears Ointment -) 1 applic OU HS [facility] Last Admin: 11/21/17 21:38 Dose: 1 applic Chlorhexidine Gluconate (Hibiclens For Decolonization -) 1 applic TP HS [facility] Ferrous Sulfate (Feosol) 300 mg GT DAILY [facility] Last Admin: 11/22/17 14:23 Dose: 300 mg Insulin Aspart (Novolog Vial Sliding Scale -) 1 vial SQ ACHS [facility] PRN Reason: Protocol Last Admin: 11/22/17 18:05 Dose: 4 units Insulin Detemir (Levemir Vial) 13 units SQ BID@0700,2200 [facility] Lactobacillus Acidophilus (Bacid -) 1 tab PEG DAILY [facility] Last Admin: 11/22/17 11:04 Dose: 1 tab Metoprolol Tartrate (Lopressor Injection -) 5 mg IVPUSH Q4H PRN PRN Reason: HYPERTENSION Mupirocin (Bactroban Ointment (For Decolonization) -) 1 applic NS BID [facility] Stop: 11/27/17 21:59 Pantoprazole Sodium (Protonix Iv) 40 mg IVPUSH DAILY [facility] Last Admin: 11/22/17 11:04 Dose: 40 mg Prednisone (Deltasone -) 40 mg PO DAILY [facility] Last Admin: 11/22/17 11:03 Dose: 40 mg Quetiapine Fumarate (Seroquel -) 25 mg PO [facility] Last Admin: 11/21/17 21:39 Dose: 25 mg Ranitidine HCl (Zantac -) 150 mg PO DAILY [facility] Last Admin: 11/22/17 11:05 Dose: 150 mg Roflumilast (Daliresp -) 500 mcg NGT DAILY [facility] Last Admin: 11/22/17 11:03 Dose: 500 mcg Saliva Substitute (Mouthkote Solution -) 1 applic MM DAILY [facility] Last Admin: 11/22/17 18:07 Dose: Not Given - History Source History Provided By: Medical Record - Past Medical History Cardio/Vascular: Yes: CHF (diastolic) Pulmonary: Yes: Other (chronic respiratory failure, ? ILD) Gastrointestinal: Yes: Other (peg) Endocrine: Yes: Diabetes Mellitus - Past Surgical History Additional Surgical History: tracheostomy, peg tube - Alcohol/Substance Use Hx Alcohol Use: No - Smoking History Smoking history: Never smoked Aproximately how many cigarettes per day: 2 Home Medications - Allergies Allergies/Adverse Reactions: Allergies Allergy/AdvReac Type Severity Reaction Status Date / Time No Known Allergies Allergy Verified 10/17/17 09:56 - Home Medications Home Medications: Ambulatory Orders Glipizide [Glucotrol Xl] 0 mg PO ASDIR 10/17/17 Metformin HCl 0 mg PO ASDIR 10/17/17 Tamsulosin HCl 0.4 mg PO DAILY 10/17/17 Family Disease History - Family Disease History Family History: Unable to Obtain (pt lethargic post ativan) Review of Systems Unable to obtain ROS, reason: pt lethargic post ativan Physical Exam Vital Signs: Vital Signs Temperature 98.4 F 11/22/17 18:30 Pulse Rate 116 H 11/22/17 18:30 Respiratory Rate 28 H 11/22/17 21:43 Blood Pressure 140/74 11/22/17 18:30 O2 Sat by Pulse Oximetry (%) 97 11/22/17 10:02 Constitutional: Yes: Cachectic Eyes: Yes: PERRL HENT: Yes: Other (temporal wasting) Neck: Yes: Trachea Midline (audible leak) Cardiovascular: Yes: Regular Rate and Rhythm, S1, S2 Respiratory: Yes: CTA Bilaterally, Other (upper airway transmitted breath sounds 2/2 cuff leak) Gastrointestinal: Yes: Normal Bowel Sounds, Soft. No: Distention, Tenderness Extremities: Yes: WNL Edema: No Peripheral Pulses WNL: Yes Neurological: Yes: Lethargy (s/p ativan) Labs: CBC, BMP 11/22/17 07:20 11/22/17 07:20 Imaging - Results Chest X-ray: Image Reviewed Cat Scan: Report Reviewed Problem List - Problems (1) MIRLANDE (acute kidney injury) Code(s): N17.9 - ACUTE KIDNEY FAILURE, UNSPECIFIED (2) Acute respiratory failure with hypoxia Code(s): J96.01 - ACUTE RESPIRATORY FAILURE WITH HYPOXIA (3) Deep vein thrombosis Code(s): I82.409 - ACUTE EMBOLISM AND THOMBOS UNSP DEEP VN UNSP LOWER EXTREMITY (4) Diabetes Code(s): E11.9 - TYPE 2 DIABETES MELLITUS WITHOUT COMPLICATIONS (5) Hypernatremia Code(s): E87.0 - HYPEROSMOLALITY AND HYPERNATREMIA (6) Interstitial lung disease Code(s): J84.9 - INTERSTITIAL PULMONARY DISEASE, UNSPECIFIED Assessment/Plan 62 y/o man with DM, diastolic heart failure who presented with respiratory distress treated for PNA and heart failure and ultimately intubated after prolonged course on bi-pap/ HFNC, course has been complicated by failed vent wean s/p trach with imaging suggestive of ILD, DVT s/p IVC filter and thrombectomy on AC, VAP and recurrent trach issues now readmitted to ICU in the setting of large cuff leak requiring 3rd trach change Pulm: Hypoxic Respiratory failure likely 2/2 ILD vs pneumonitis now s/p trach with recurrent trach issues, now re-admitted to ICU post trach change for broken cuff (3rd trach change) -continue mechanical ventilation - close monitoring of tidal volumes -wean FiO2 as tolerated -CXR post trach change -CT chest in am per Dr. Rosario to evaluate for possible tracheomalacia -pt may require custom trach if trach issues persist -continue prednisone -continue nebs ID: s/p treatment for VAP, mild leukocytosis though afebrile; urine + yeast -monitor WBC, fever curve -s/p course zosyn CV: acute on chronic diastolic CHF, mild pulmonary hypertension on ECHO -monitor hemodynamics -holding lasix at present Renal: MIRLANDE now resolving; hypernatremia thought to be 2/2 hypovolemia -renal following -continue free water bolus -hold diuresis at present Heme: RLE DVT s/p IVC filter and thrombectomy -continue Eliquis -consider transition to heparin if any planned interventions Neuro: intermittent agitation with sundowning -restraints at night as needed -seroquel qhs GI: no active issues -continue feeds via PEG -Zantac ppx Endo: DM -fingersticks -continue levemir with sliding scale PPX: -Eliquis -Zantac Dispo: FULL CODE Dianna LEBLANCP CCT: 35 mins
[2017-11-22] MEDS: CHLORHEXIDINE GLUCONATE 4% CLEANSER FOR DECOLONIZATION TP SCH (23:12)
[2017-11-22] MEDS: MUPIROCIN 2% TOPICAL OINTMENT FOR DECOLONIZATION NS SCH (23:12)
[2017-11-22] MEDS: MINERAL OIL/PETROLATUM,WHITE 3.5 GM TUBE OU SCH (23:13)
[2017-11-22] MEDS: QUEtiapine FUMARATE 25 MG TABLET (FP) PO SCH (23:14)
[2017-11-22 23:36] LABS: ARTERIAL BLD GAS O2 SATURATION 90.6 % (90-98.9); ARTERIAL BLOOD GAS BASE EXCESS 11.2 meq/l (-2-2)
[2017-11-22 23:37] LABS: ALLENS TEST POSITIVE; ARTERIAL BLOOD GAS pH 7.25 (7.35-7.45)
[2017-11-22 23:38] LABS: ARTERIAL BLOOD GAS PCO2 95.6 mmHg (35-45); ARTERIAL BLOOD GAS PO2 65.9 mmHg (80-100)
[2017-11-23 00:47] LABS: ARTERIAL BLD GAS O2 SATURATION 95.7 % (90-98.9); ARTERIAL BLOOD GAS BASE EXCESS 12.5 meq/l (-2-2); ARTERIAL BLOOD GAS PO2 76.6 mmHg (80-100); ARTERIAL BLOOD GAS pH 7.35 (7.35-7.45)
[2017-11-23 00:49] LABS: ALLENS TEST POSITIVE
[2017-11-23 00:51] LABS: ARTERIAL BLOOD GAS PCO2 74.1 mmHg (35-45)
--- NOTE | 2017-11-23 04:57 | PN ---
Physical Exam: SUBJECTIVE: Patient seen and examined by me this AM - Overnight team responded to call by nursing staff on pt as he was not maintaining tidal volumes (0). Dr. Rosario contacted, evaluated pt at bedside. Old trach cuff was determined to be broken, exchanged for Bivona Silicone #7. Pt with good TV after exchange. 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 Rosario. Recommends CT scan in AM. Pt transfer back to ICU overnight. Still unable to maintain full volumes and trach very positionally dependent. CXR, ABG taken. Initial ABG 7.25/96/66/40, repeat improved 7.35/74/76/40 - Pt received one unit prbcs yesterday. No transfusion reaction noted. - Denies CP, SOB, N/V, abdominal pain, COLLINS/lightheadness, numbness/tingling in hands/feet. Current vent setting 6/500/70%/8, satting 98%. No events on tele. OBJECTIVE: Vital Signs Intake & Output 11/20/17 11/21/17 11/22/17 11/23/17 23:59 23:59 23:59 23:59 Intake Total 1590 4200 3600 Output Total 7 Balance 1583 4200 3600 Period Temp Pulse Resp BP Sys/Sutton Pulse Ox Last 24 Hr 97.2 F-98.6 F 102-120 20-80 108-148/52-85 96-97 GENERAL: Cachectic man, NAD, laying in bed. Vented w/ trach HEAD: Normal with no signs of trauma. Bitemporal wasting EYES: Sclera anicteric, conjunctiva clear. No ptosis. ENT: Ears normal, nares patent, oropharynx with white, thick palatal exudate. NECK: New Trach tube in place, no erythema or drainage. Trachea midline, supple. No JVD noted. LUNGS: Mechanical breath sounds. Upper airway congestion noted. BL Fine crackles noted diffusely. No wheezes, no accessory muscle use HEART: 2/6 systolic ejection murmur at LUSB. Regular rate and rhythm, S1, S2 without murmur, rub or gallop. ABDOMEN: PEG tube in place, no erythema or purulence. Scaphoid abdomen, hypoactive bowel sounds, no guarding, no rebound, no hepatosplenomegaly, no masses. EXTREMITIES: No edema in LEs. 2+ pulses, warm, well-perfused NEUROLOGICAL: CN 2-12 intact. 5/5 strength grossly. Sensation preserved in all extremities. PSYCH: Normal mood, normal affect. SKIN: Warm, dry, normal turgor, no rashes or lesions noted Laboratory Results - last 24 hr CBC, BMP 11/23/17 07:23 11/22/17 07:20 11/22/17 07:20 11/22/17 11/22/17 11/22/17 06:05 07:20 07:20 WBC 12.4 H RBC 2.41 L Hgb 7.5 L Hct 24.6 L MCV 102.0 H MCH 31.1 MCHC 30.5 L RDW 17.1 H Plt Count 176 MPV 11.9 H Anticoagulation Therapy Puncture Site ABG pH ABG pCO2 at Pt Temp ABG pO2 at Pt Temp ABG HCO3 ABG O2 Sat (Measured) ABG O2 Content ABG Base Excess Dionte Test O2 Delivery Device Oxygen Flow Rate Vent Mode Vent Rate Mechanical Rate PEEP Pressure Support Vent Sodium 147 H Potassium 3.6 Chloride 103 Carbon Dioxide 40 H Anion Gap 4 L BUN 35 H Creatinine 0.9 POC Glucometer 373 Random Glucose 303 H* Calcium 8.5 Blood Type Antibody Screen Crossmatch 11/22/17 11/22/17 11/22/17 11:50 12:40 17:52 WBC RBC Hgb Hct MCV MCH MCHC RDW Plt Count MPV Anticoagulation Therapy Puncture Site ABG pH ABG pCO2 at Pt Temp ABG pO2 at Pt Temp ABG HCO3 ABG O2 Sat (Measured) ABG O2 Content ABG Base Excess Dionte Test O2 Delivery Device Oxygen Flow Rate Vent Mode Vent Rate Mechanical Rate PEEP Pressure Support Vent Sodium Potassium Chloride Carbon Dioxide Anion Gap BUN Creatinine POC Glucometer 173 268 Random Glucose Calcium Blood Type O POSITIVE Antibody Screen Negative Crossmatch See Detail 11/22/17 11/22/17 11/22/17 21:08 23:08 23:30 WBC RBC Hgb Hct MCV MCH MCHC RDW Plt Count MPV Anticoagulation Therapy No Result Required. Puncture Site Left radial Right radial ABG pH 7.31 L 7.25 L ABG pCO2 at Pt Temp 80.7 H* 95.6 H* ABG pO2 at Pt Temp 133.0 H 65.9 L D ABG HCO3 39.2 H 40.4 H* ABG O2 Sat (Measured) 98.9 90.6 ABG O2 Content 12.5 L 11.2 L ABG Base Excess 11.3 H 11.2 H Dionte Test Positive Positive O2 Delivery Device Ventilator Mech vent Oxygen Flow Rate 100 70% Vent Mode A/c A/c Vent Rate 12 16 Mechanical Rate No Result Required. Yes PEEP 8.0 8.0 Pressure Support Vent 400 400 Sodium Potassium Chloride Carbon Dioxide Anion Gap BUN Creatinine POC Glucometer 206.22669 Random Glucose Calcium Blood Type Antibody Screen Crossmatch 11/23/17 00:35 WBC RBC Hgb Hct MCV MCH MCHC RDW Plt Count MPV Anticoagulation Therapy Puncture Site Left radial ABG pH 7.35 ABG pCO2 at Pt Temp 74.1 H* D ABG pO2 at Pt Temp 76.6 L ABG HCO3 39.8 H ABG O2 Sat (Measured) 95.7 ABG O2 Content 11.9 L ABG Base Excess 12.5 H Dionte Test Positive O2 Delivery Device Mech vent Oxygen Flow Rate 70% Vent Mode A/c Vent Rate 16 Mechanical Rate PEEP 8.0 Pressure Support Vent 500 Sodium Potassium Chloride Carbon Dioxide Anion Gap BUN Creatinine POC Glucometer Random Glucose Calcium Blood Type Antibody Screen Crossmatch Active Medications Generic Name Dose Route Start Last Admin Trade Name Freq PRN Reason Stop Dose Admin Acetaminophen 650 mg 11/22/17 23:20 Tylenol - PO Q6H PRN FEVER Acetaminophen 1,000 mg 11/22/17 23:20 Ofirmev Injection - IVPB Q6H PRN FEVER Albuterol/Ipratropium 1 amp 11/23/17 08:00 Duoneb - NEB RQID [facility] Amino Acids 30 ml 11/23/17 08:00 Prosource No Carb Liquid Pkt PO BID@0800,1730 [facility] Apixaban 5 mg 11/23/17 10:00 Eliquis - PO BID SONAL Artificial Tears 1 applic 11/23/17 22:00 Artificial Tears Ointment - OU HS [facility] Chlorhexidine Gluconate 1 applic 11/22/17 22:00 11/22/17 23:12 Hibiclens For Decolonization - TP 1 applic HS [facility] Administration Ferrous Sulfate 300 mg 11/23/17 10:00 Feosol GT DAILY [facility] Insulin Aspart 1 vial 11/23/17 07:00 Novolog Vial Sliding Scale - SQ ACHS [facility] Protocol Insulin Detemir 13 units 11/23/17 07:00 Levemir Vial SQ BID@0700,2200 [facility] Lactobacillus Acidophilus 1 tab 11/23/17 10:00 Bacid - PEG DAILY [facility] Metoprolol Tartrate 5 mg 11/22/17 23:20 Lopressor Injection - IVPUSH Q4H PRN HYPERTENSION Mupirocin 1 applic 11/22/17 22:00 11/22/17 23:12 Bactroban Ointment (For Decolonization) - NS 11/27/17 21:59 1 applic BID [facility] Administration Pantoprazole Sodium 40 mg 11/23/17 10:00 Protonix Iv IVPUSH DAILY [facility] Prednisone 40 mg 11/23/17 10:00 Deltasone - PO DAILY [facility] Quetiapine Fumarate 25 mg 11/23/17 22:00 Seroquel - PO HS [facility] Ranitidine HCl 150 mg 11/23/17 10:00 Zantac - PO DAILY [facility] Roflumilast 500 mcg 11/23/17 10:00 Daliresp - NGT DAILY [facility] Saliva Substitute 1 applic 11/23/17 10:00 Mouthkote Solution - MM DAILY [facility] Microbiology 11/18/17 21:30 Stool Clostridium difficile Antigen (CHUY) - Final 11/18/17 21:30 Stool Clostridium difficile Toxin Assay - Final 11/13/17 17:30 Blood - Peripheral Venous Blood Culture - Final NO GROWTH AFTER 5 DAYS INCUBATION 11/13/17 17:10 Blood - Peripheral Venous Blood Culture - Final NO GROWTH AFTER 5 DAYS INCUBATION 11/14/17 14:30 Sputum - Endotrachea Suction/Ventilator Gram Stain - Final 11/14/17 14:30 Sputum - Endotrachea Suction/Ventilator Sputum Culture - Final Klebsiella Pneumoniae 11/14/17 22:00 Urine - Urine Clean Catch Urine Culture - Final Yeast Like Organism 11/15/17 11:00 Nasopharyngeal Swab Influenza Types A,B Antigen (CHUY) - Final 11/15/17 11:00 Nasopharyngeal Swab - Final 10/21/17 06:00 Serum Cryptococcal Antigen - Final 10/19/17 19:30 Sputum - Expectorated Gram Stain - Final 10/19/17 19:30 Sputum - Expectorated Sputum Culture - Final NORMAL RESPIRATORY TOYIN 10/17/17 10:10 Blood - Peripheral Venous Blood Culture - Final NO GROWTH AFTER 5 DAYS INCUBATION 10/17/17 10:10 Blood - Peripheral Venous Blood Culture - Final NO GROWTH AFTER 5 DAYS INCUBATION 10/17/17 13:57 Urine - Urine Clean Catch Urine Culture - Final NO GROWTH OBTAINED 10/17/17 13:57 Urine For Antigen Detection Legionella Antigen - Final 10/17/17 13:57 Urine For Antigen Detection Streptococcus pneumoniae Antigen (M - Final 10/17/17 10:25 Nasopharyngeal Swab Influenza Types A,B Antigen (CHUY) - Final 10/17/17 10:25 Nasopharyngeal Swab - Final Recent imaging: CXR 10/21/17 - Since 10/30/2017, the ARDS pattern has diminished minimally. Follow- up recommended. CT Abdomen 10/31 - The gallbladder demonstrates no definite CT pathology. There is nonspecific minimal to mild intrahepatic biliary tract dilatation. Clinical/ laboratory correlation is suggested as well as with follow-up CT. Dilatation of the main pancreatic duct as noted above. Pancreatic ductal dilatation was also noted on a 2013 ultrasound exam. Several small pancreatic head calcifications are seen suggestive of chronic calcific pancreatitis. No gross mass lesion is identified. Correlate with MRI/MRCP when the patient's clinical condition permits. No CT evidence of acute pancreatitis. Mild acute pancreatitis is frequently not demonstrable on CT or MRI. The partially imaged lower chest demonstrates prominent bilateral interstitial thickening with relative peripheral sparing - ? Noncardiogenic edema, infectious versus noninfectious pneumonitis, hemorrhage. Correlate clinically. This finding may be somewhat increased in comparison to a chest CT exam of 10/20/2017. No pleural effusion is seen. Bibasilar bronchiectasis. There is partial imaging of nonspecific mediastinal lymphadenopathy (as described on chest CT). Prominent atherosclerotic vascular calcifications. Mild to moderate L1 and mild L5 vertebral body compression fractures are noted which appear chronic. No bony retropulsion is seen. The visualized osseous structures appear to be diffusely demineralized. Clinical/laboratory correlation is suggested. Additional evaluation utilizing bone densitometry/DEXA scan may be considered. CXR 11/01 - Since a prior study of 10/31/2017, extensive opacification is identified throughout the lung james with little significant change. This is consistent with ARDS. No pleural effusions have developed. CXR 11/02 - No significant change from prior cxr. Still with BL reticulonodular diffuse opacification. CXR 11/05 - No significant change. BL reticulonodular pattern. CXR 11/06 - No change overall CXR 11/07 - Trach in place. Diffuse BL interstitial and possible alveolar changes. No pneumo or pleural effusions. ekg 11/08 - NSR, Rate 86, QTC 409, LVH, NANCY, no ST/Twave changes CXR 11/08 - No significant interval changes, BL parenchymal reticulonodular infiltrates, ETT tube, NG tube in place CXR 11/09 - no change from prior CXR 11/10 - No change CXR 11/13 - Good placement of ETT tube CXR 11/14 - no significant change Renal U/S 11/14 - Normal kidneys BL. CXR 11/15 - No change CXR 11/16 - R lower lobe opacity with air bronchograms; clinically correlate CXR 11/17 - No change from prior xr. CT non-con head 11/19 - No acute bleed or mass effect per [facility]. Official read pending CT cervical spine 11/19 - No evidence of gross fracture. Official read pending CXR 11/20 - No significant change. Chronic ILD CXR 11/22 - New Trach in position. Diffuse reticulonodular opacities BL, per prior films. CT Chest 11/23 - IMPRESSION: 1. S/P tracheostomy with widely patent trachea. 2. Extensive COPD with large areas of acute consolidation within both lungs that have developed since 10/20/2017. 3. Moderate mediastinal lymphadenopathy. Clinical correlation and follow-up recommended. Please see above discussion. 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 #Acute hypoxic respiratory failure (possibly 2/2 ILD vs Pneumonitis)- s/p trach 11/07 after failed vent wean; trach exchanged 11/11 - Pt satting high 90s on 70% FIO2. Trach replaced by Dr. Rosario overnight for Bivona Silicone #7. Will likely transfer back to vent floor today. - Attempt O2 taper again. Maintain sats >88%. - c/w Prednisone 40mg daily - c/w Roflumilast and Duonebs QID - PEG feeds at 50ml this AM; c/w 300ml water flushes every 4 hours - Minimal secretions overnight; New trach with minimal secretions - Seroquel 25mg PO qHS for agitation - Pt still on otdd mittens; tends to - Plan for placement at [facility] once tolerating FIO2 of 50% #Leukocytosis- WBC 12.4 -> 15.2 today likely due to steroids/reactive, no fevers ; suspected possible aspiration event; CXR with possible RLL opacity 11/16; no fevers overnight - currently off abx - trend fever, wbc curve - flu swab negative - If febrile, send cultures and start on empiric abx #hypernatremia, Na 147 -> 149 today: Pre-renal; FeNa 0.3%; likely secondary to hypovolemia - Renal consulted , recs appreciated - free water flushes via PEG tube 300ml q4h - Daily BMP, trend Na #MIRLANDE - Cr 0.9 -> 0.7 today, resolved - Renal U/S nrml - Renal consulted, following - Trend Cr #agitation - repeated attempts to remove trach; pt tends to sundown at night - todd mittens - seroquel 25mg PO qHS #RLE DVT s/p IVC filter 10/20 and thrombectomy 10/24 -c/w Eliquis 5mg BID #Acute on diastolic CHF - Not clinically volume overloaded - c/w hold lasix - No longer requires daily wts #DM (A1c 7.4 on admission) - BG 303 today - BGM - ISS ACHS -levemir 13u BID #BPH - - flomax held #Diarrhea - resolved - Monitor #Nicotine dependence - c/w nicotine patch #PPX Eliquis 5mg BID Zantac 150mg daily #FEN: Free water flushes, 300ml QID Daily BMP, trend Na Cont tube feeds Dispo to vent floors Discussed with attending, Dr. Leroy Reeves, PGY1 Visit type - Emergency Visit Emergency Visit: Yes ED Registration Date: 10/17/17 Care time: The patient presented to the Emergency Department on the above date and was hospitalized for further evaluation of their emergent condition. - New Patient This patient is new to me today: No - Critical Care Critical Care patient: Yes Total Critical Care Time (in minutes): 35 Critical Care Statement: The care of this patient involved high complexity decision making to prevent further life threatening deterioration of the patient 's condition and/or to evaluate & treat vital organ system(s) failure or risk of failure.
[2017-11-23] MEDS: BANATROL PLUS POWDER PACKET PEG SCH ×3 (06:09→22:36)
[2017-11-23] MEDS: INSULIN DETEMIR 100 UNITS/ML MDV SQ SCH ×2 (06:09→21:54)
[2017-11-23] MEDS ORDERED: PT OWN MED DRAWER 7, Y5N ONE ×4 (06:14→22:28)
[2017-11-23] MEDS: INSULIN SLIDING SCALE (NOVOLOG) 1 VIAL SQ SCH ×4 (07:00→21:54)
[2017-11-23 07:42] LABS: HEMATOCRIT 29.1 % (35.4-49); HEMOGLOBIN 8.9 GM/dL (11.7-16.9); MCH 30.8 pg (25.7-33.7); MCHC 30.7 g/dl (32.0-35.9); MEAN CELL VOLUME 100.4 fl (80-96); MEAN PLT VOLUME 11.4 fl (7.5-11.1); PLATELET COUNT 183 K/MM3 (134-434); RBC 2.89 M/mm3 (4.00-5.60); RDW 17.5 % (11.9-15.9); WHITE BLOOD COUNT 15.2 K/mm3 (4.0-10.0)
[2017-11-23] MEDS: ALBUTEROL SO4 2.5/IPRATROPIUM 0.5 INH SOL 3 ML VIAL.NEB. NEB SCH ×4 (08:00→20:55)
[2017-11-23 08:45] LABS: CHLORIDE 104 mmol/L (98-107); POTASSIUM 3.9 mmol/L (3.5-5.1); SODIUM 149 mmol/L (136-145)
[2017-11-23 08:58] LABS: ALBUMIN 2.2 g/dl (3.4-5.0); ALK PHOS 99 U/L (45-117); ANION GAP 4 (8-16); BILIRUBIN,TOTAL 0.7 mg/dL (0.2-1.0); BLOOD UREA NITROGEN 32 mg/dL (7-18); CALCIUM 8.2 mg/dL (8.5-10.1); CO2 41 mmol/L (21-32); CREATININE 0.7 mg/dL (0.7-1.3); GLUCOSE,RANDOM 79 mg/dL (74-106); MAGNESIUM 2.2 mg/dL (1.8-2.4); PHOSPHOROUS 2.8 mg/dL (2.5-4.9); SGOT/AST 10 U/L (15-37); SGPT/ALT 15 U/L (12-78); TOT PROT 7.1 g/dl (6.4-8.2)
[2017-11-23] MEDS: LACTOBACILLUS ACIDOPHILUS 1 EACH TAB (FP) PEG SCH (10:08)
[2017-11-23] MEDS: predniSONE 20 MG TABLET (UD) PO SCH (10:08)
[2017-11-23] MEDS: RANITIDINE HCL 150 MG TABLET (FP) PO SCH (10:09)
[2017-11-23] MEDS: AMINO ACIDS/PROTEIN HYDROLYS 30 ML LIQUID.PKT PO SCH ×2 (10:09→17:18)
[2017-11-23] MEDS: FERROUS SO4 300 MG/5 ML ORAL SOLN UNIT DOSE CUPS GT SCH (10:09)
[2017-11-23] MEDS: ROFLUMILAST 500 MCG TABLET NGT SCH (10:09)
[2017-11-23] MEDS: APIXABAN 5 MG TABLET PO SCH ×2 (10:10→22:35)
[2017-11-23] MEDS: LYTES/YERBA SANTA 240 ML BOTTLE MM SCH (10:11)
[2017-11-23] MEDS: MUPIROCIN 2% TOPICAL OINTMENT FOR DECOLONIZATION NS SCH ×2 (10:11→21:53)
[2017-11-23] MEDS: PANTOPRAZOLE SODIUM 40 MG VIAL IVPUSH SCH (10:12)
--- NOTE | 2017-11-23 10:32 | PN ---
Physical Exam: SUBJECTIVE: Patient seen and examined Patient is a 62 year old male who was BIBEMS for hypoxic respiratory failure eating food, off of pressers, but with RLE DVT without PE s/p IVC filter, thrombectomy, catheter directed heparin infusion, requiring tracheostomy. Patient was transferred back to the ICU due to inability to maintain tidal volumes. He had his trach replaced and has been stable since the replacement. Otherwise no acute events. OBJECTIVE: Vital Signs Period Temp Pulse Resp BP Sys/Sutton Pulse Ox Last 24 Hr 97.2 F-98.6 F 94-120 20-30 108-148/60-85 96 GENERAL: The patient is trached, in no acute distress. HEAD: Normal with no signs of trauma. EYES: sclera anicteric, conjunctiva clear. No ptosis. ENT: oropharynx clear without exudates, moist mucous membranes. NECK: Trachea midline, full range of motion, supple. LUNGS: Breath sounds equal, Bilateral rhonchi auscultated on exam, no wheezes, no accessory muscle use. HEART: Regular rate and rhythm, S1, S2 without murmur, rub or gallop. ABDOMEN: Soft, nontender, nondistended, normoactive bowel sounds, no guarding, no rebound, no hepatosplenomegaly, no masses. EXTREMITIES: 2+ pulses, warm, well-perfused, NEUROLOGICAL:Trached. gait not observed. PSYCH: Normal mood, normal affect. SKIN: Warm, dry, normal turgor, no rashes or lesions noted Laboratory Results - last 24 hr 11/22/17 11/22/17 11/22/17 11:50 12:40 17:52 WBC RBC Hgb Hct MCV MCH MCHC RDW Plt Count MPV Anticoagulation Therapy Puncture Site ABG pH ABG pCO2 at Pt Temp ABG pO2 at Pt Temp ABG HCO3 ABG O2 Sat (Measured) ABG O2 Content ABG Base Excess Dionte Test O2 Delivery Device Oxygen Flow Rate Vent Mode Vent Rate Mechanical Rate PEEP Pressure Support Vent Sodium Potassium Chloride Carbon Dioxide Anion Gap BUN Creatinine Creat Clearance w eGFR POC Glucometer 173 268 Random Glucose Calcium Phosphorus Magnesium Total Bilirubin AST ALT Alkaline Phosphatase Total Protein Albumin Blood Type O POSITIVE Antibody Screen Negative Crossmatch See Detail 11/22/17 11/22/17 11/22/17 21:08 23:08 23:30 WBC RBC Hgb Hct MCV MCH MCHC RDW Plt Count MPV Anticoagulation Therapy No Result Required. Puncture Site Left radial Right radial ABG pH 7.31 L 7.25 L ABG pCO2 at Pt Temp 80.7 H* 95.6 H* ABG pO2 at Pt Temp 133.0 H 65.9 L D ABG HCO3 39.2 H 40.4 H* ABG O2 Sat (Measured) 98.9 90.6 ABG O2 Content 12.5 L 11.2 L ABG Base Excess 11.3 H 11.2 H Dionte Test Positive Positive O2 Delivery [facility] Flow Rate 100 70% Vent Mode A/c A/c Vent Rate 12 16 Mechanical Rate No Result Required. Yes PEEP 8.0 8.0 Pressure Support Vent 400 400 Sodium Potassium Chloride Carbon Dioxide Anion Gap BUN Creatinine Creat Clearance w eGFR POC Glucometer 206.81647 Random Glucose Calcium Phosphorus Magnesium Total Bilirubin AST ALT Alkaline Phosphatase Total Protein Albumin Blood Type Antibody Screen Crossmatch 11/23/17 11/23/17 11/23/17 00:35 07:23 07:23 WBC 15.2 H RBC 2.89 L Hgb 8.9 L D Hct 29.1 L D MCV 100.4 H MCH 30.8 MCHC 30.7 L RDW 17.5 H Plt Count 183 MPV 11.4 H Anticoagulation Therapy Puncture Site Left radial ABG pH 7.35 ABG pCO2 at Pt Temp 74.1 H* D ABG pO2 at Pt Temp 76.6 L ABG HCO3 39.8 H ABG O2 Sat (Measured) 95.7 ABG O2 Content 11.9 L ABG Base Excess 12.5 H Dionte Test Positive O2 Delivery Device [facility] vent Oxygen Flow Rate 70% Vent Mode A/c Vent Rate 16 Mechanical Rate PEEP 8.0 Pressure Support Vent 500 Sodium 149 H Potassium 3.9 Chloride 104 Carbon Dioxide 41 H Anion Gap 4 L BUN 32 H Creatinine 0.7 D Creat Clearance w eGFR > 60 POC Glucometer Random Glucose 79 D Calcium 8.2 L Phosphorus 2.8 Magnesium 2.2 Total Bilirubin 0.7 D AST 10 L ALT 15 Alkaline Phosphatase 99 Total Protein 7.1 Albumin 2.2 L Blood Type Antibody Screen Crossmatch Active Medications Generic Name Dose Route Start Last Admin Trade Name Freq PRN Reason Stop Dose Admin Acetaminophen 650 mg 11/22/17 23:20 Tylenol - PO Q6H PRN FEVER Acetaminophen 1,000 mg 11/22/17 23:20 Ofirmev Injection - IVPB Q6H PRN FEVER Albuterol/Ipratropium 1 amp 11/23/17 08:00 11/23/17 08:00 Duoneb - NEB 1 amp RQID SONAL Administration Amino Acids 30 ml 11/23/17 08:00 11/23/17 10:09 Prosource No Carb Liquid Pkt PO 30 ml BID@0800,1730 SONAL Administration Apixaban 5 mg 11/23/17 10:00 11/23/17 10:10 Eliquis - PO 5 mg BID SONAL Administration Artificial Tears 1 applic 11/23/17 22:00 Artificial Tears Ointment - OU HS [facility] Chlorhexidine Gluconate 1 applic 11/22/17 22:00 11/22/17 23:12 Hibiclens For Decolonization - TP 1 applic HS [facility] Administration Ferrous Sulfate 300 mg 11/23/17 10:00 11/23/17 10:09 Feosol GT 300 mg DAILY SON[facility] Administration Insulin Aspart 1 vial 11/23/17 07:00 Novolog Vial Sliding Scale - SQ ACHS [facility] Protocol Insulin Detemir 13 units 11/23/17 07:00 11/23/17 06:09 Levemir Vial SQ 13 units BID@0700,2200 SONAL Administration Lactobacillus Acidophilus 1 tab 11/23/17 10:00 11/23/17 10:08 Bacid - PEG 1 tab DAILY [facility] Administration Metoprolol Tartrate 5 mg 11/22/17 23:20 Lopressor Injection - IVPUSH Q4H PRN HYPERTENSION Mupirocin 1 applic 11/22/17 22:00 11/23/17 10:11 Bactroban Ointment (For Decolonization) - NS 11/27/17 21:59 1 applic BID SONAL Administration Pantoprazole Sodium 40 mg 11/23/17 10:00 11/23/17 10:12 Protonix Iv IVPUSH 40 mg DAILY [facility] Administration Prednisone 40 mg 11/23/17 10:00 11/23/17 10:08 Deltasone - PO 40 mg DAILY [facility] Administration Quetiapine Fumarate 25 mg 11/23/17 22:00 Seroquel - PO HS [facility] Ranitidine HCl 150 mg 11/23/17 10:00 11/23/17 10:09 Zantac - PO 150 mg DAILY [facility] Administration Roflumilast 500 mcg 11/23/17 10:00 11/23/17 10:09 Daliresp - NGT 500 mcg DAILY [facility] Administration Saliva Substitute 1 applic 11/23/17 10:00 11/23/17 10:11 Mouthkote Solution - MM Not Given DAILY [facility] ASSESSMENT/PLAN: Patient is a 62 year old male who was BIBEMS for hypoxic respiratory failure eating food, off of pressers, but with RLE DVT without PE s/p IVC filter, thrombectomy, catheter directed heparin infusion, requiring tracheostomy. Neuro: #Nicotine Dependence: - Nicotine patch 7 MG daily #Anxiety -Continue 0.5 xanax q8h for management of anxiety. #Agitation -Continue seroquel 25mg for management of agitation. CV: #Septic Shock vs. iatrogenic hypovolemic shock vs. cardiogenic shock: original presentation - Tachycardia of 105, Respiratory rate 26, Fever of 101, WBC of 11.7, Hypotension with SBP <90 with no response to IV fluids, and Lactic Acidosis of 3.6. Source unclear but likely PNA. Off pressers - Resolved #DVT: U/S positive for Right calf DVT, s/p thrombectomy - s/p IR direct infusion, doing well - Continue Eliquis #Chest Pain: - EKG unchanged Pulm: #Acute Hypoxic Respiratory Failure: Legionalla and strep negative. Zosyn and Vancomycin given in ED. Patient denies any recent hospitalization or abx use. Original chest X-ray reveals bilateral multifocal inflammatory changes (ARDS) vs. congestive heart failure. given JVD and crackles it is likely the later. treated for CAP. ECHO showing mild mitral regurg, mild/mod tricuspid regurg, mild PHTN. CT demonstrating diffuse interstitial lung disease AND XRs evidencing occasional volume overload. Patient currenty has a trach. Patient was transferred back to the ICU for inability to maintain tidal volumes. The patient had his trach replaced overnight and has been maintaining tidal volumes with the new trach. - Patient tolerating new trach replacement. - Continue Prednisone 40 daily - Continue scheduled duonebs. - Continue daliresp. - All cultures negative ID: likely ILD with GGO vs. infectious pattern. HIV, influenza, strep, legionella neg. BCx NGTD, sputum Cx NGTD. Completed Azithromycin and Ceftriaxone for suspected CAP. Concern for right lower lobe pneumonia. Urine cultures growing yeast. Sputum culture growing lactose fermenting negative bacilli. - Will continue to monitor. - ID recs appreciated Renal: - CTM - Avoid nephrotoxic medications Heme: #Macrocytic Anemia: Hemoglobin 9.2 with MCV 101. Ferritin 882 (likely reactive) -Hb stable Endo #NIDDM: -Patient is no longer having hypoglycemic episodes requiring D50 pushes -Will continue to monitor BGM and provided D50 pushes as needed. -ISS : #BPH -Patient on Tamsulosin 0.4mg daily GI: #Peptic Ulcer Disease: History of mesh according to family and had Endoscopy two months. Was given medications according to patients daughter and completed course. - on PPI FEN -Electrolytes Repleted as needed. -Continue PEG tube feeds. PPX: - Eliquis - Protonix Disposition: Stable for transfer to the floors. Visit type - Emergency Visit Emergency Visit: No - New Patient This patient is new to me today: No - Critical Care Critical Care patient: Yes Total Critical Care Time (in minutes): 35 Critical Care Statement: The care of this patient involved high complexity decision making to prevent further life threatening deterioration of the patient 's condition and/or to evaluate & treat vital organ system(s) failure or risk of failure.
[2017-11-23] MEDS ORDERED: MIDAZOLAM HCL 2 MG/2 ML SINGLE DOSE VIAL IVPUSH ONE (11:38)
--- NOTE | 2017-11-23 13:31 | PN ---
Teaching Attending Note Name of Resident: Dylon Reeves ATTENDING PHYSICIAN STATEMENT I saw and evaluated the patient. I reviewed the resident's note and discussed the case with the resident. I agree with the resident's findings and plan as documented. SUBJECTIVE:asymptomatic. states breathing is improved. denies Cp, SOB, fever, chills, N/V/C?D OBJECTIVE: Last Vital Signs Temp Pulse Resp BP Pulse Ox 97.8 F 92 H 25 H 149/68 96 11/23/17 06:49 11/23/17 13:00 11/23/17 13:00 11/23/17 13:00 11/22/17 23:10 General alert, thin, cachectic CV S1 S2 tachycardic no murmur/rub/gallop Lungs coarse breath sounds diffusely Abdomen soft NT/ND +peg extremities no pedal edema ASSESSMENT AND PLAN: 62 yo M active smoker, pMHx of NIDDM, PUD, BPH admitted with acute hypoxic respiratory failure, and extensive RLE DVT 1. Acute hypoxic respiratory failure, suspect from ?ILD with pneumonitis- s/p intubation 11/03 with failed weaning and now s/p trach 11/07. trach exchanged 11/19. episode last night where was not pulling volumes, cuff was broken. plan for CT to further evaluate for tracheomalacia which was seen before on bronch. may require specialized trach. CT surgery on board. FiO2 70%. goal SpO2 >88%. on pred 40mg 2. RLE DVT- s/p IVC filter 10/20, thrombectmy 10/24. on eliquis 5mg BID. monitor for bleeding 3. Sepsis due to suspected aspiration PNA-some leukocytosis likely stress induced. afebrile. do not think infection at this time. completed treatment for PNA twice this hospital stay. 4. Acute diastolic heart failure- s/p intermittent lasix IV. clinically euvolemic. will hold for now 5. Iron deficiency anemia and anemia of chronic disease- possible due to frequent blood draws and comorbidities. s/p 1 unit PRBC yesterday with good response. no indication for txn. cont iron supplementation 6. Hypernatremia- stable. cont free water flushes 7. antibiotic assoc Diarrhea-likely due to prolonged abx use. now resolved. on bacid and banatol. 8. continuous nicotine dependence- nicotine patch 9. cachexia- severe malnutrition evident by body habitus. s/p PEG 11/09. tolerating TF 10. DM- uncontrolled. increase levemir to 13units BID. cont to titrate as needed. 11. Agitation- intermittent periods of agitation. off 2 point restraints >24H. on seroquel HS. 12. PPX- ppi/eliquis 13. SNF placement once FiO2 <60% The care of this patient involved high complexity decision making to prevent further life threatening deterioration of the patient's condition and/or to evaluate & treat vital organ system(s) failure or risk of failure. 40 minutes
--- NOTE | 2017-11-23 13:38 | PN ---
Teaching Attending Note Name of Resident: Evans Marie ATTENDING PHYSICIAN STATEMENT I saw and evaluated the patient. I reviewed the resident's note and discussed the case with the resident. I agree with the resident's findings and plan as documented. SUBJECTIVE: Patient seen and examined in the ICU. Awake and alert on AC Mode of vent. Trach needed to be changed last night by CTS. OBJECTIVE: Intake & Output 11/20/17 11/21/17 11/22/17 11/23/17 23:59 23:59 23:59 23:59 Intake Total 1590 4200 3600 Output Total 7 Balance 1583 4200 3600 Weight 95 lb 4.8 oz Last Vital Signs Temp Pulse Resp BP Pulse Ox 97.8 F 92 H 25 H 149/68 96 11/23/17 06:49 11/23/17 13:00 11/23/17 13:00 11/23/17 13:00 11/22/17 23:10 Active Medications Acetaminophen (Tylenol -) 650 mg PO Q6H PRN PRN Reason: FEVER Acetaminophen (Ofirmev Injection -) 1,000 mg IVPB Q6H PRN PRN Reason: FEVER Albuterol/Ipratropium (Duoneb -) 1 amp NEB RQID [facility] Last Admin: 11/23/17 08:00 Dose: 1 amp Alprazolam (Xanax -) 0.5 mg PO Q8H PRN PRN Reason: ANXIETY Amino Acids (Prosource No Carb Liquid Pkt) 30 ml PO BID@0800,1730 [facility] Last Admin: 11/23/17 10:09 Dose: 30 ml Apixaban (Eliquis -) 5 mg PO BID [facility] Last Admin: 11/23/17 10:10 Dose: 5 mg Artificial Tears (Artificial Tears Ointment -) 1 applic OU HS [facility] Chlorhexidine Gluconate (Hibiclens For Decolonization -) 1 applic TP HS [facility] Last Admin: 11/22/17 23:12 Dose: 1 applic Ferrous Sulfate (Feosol) 300 mg GT DAILY [facility] Last Admin: 11/23/17 10:09 Dose: 300 mg Insulin Aspart (Novolog Vial Sliding Scale -) 1 vial SQ ACHS [facility] PRN Reason: Protocol Last Admin: 11/23/17 12:22 Dose: Not Given Insulin Detemir (Levemir Vial) 13 units SQ BID@0700,2200 [facility] Last Admin: 11/23/17 06:09 Dose: 13 units Lactobacillus Acidophilus (Bacid -) 1 tab PEG DAILY [facility] Last Admin: 11/23/17 10:08 Dose: 1 tab Metoprolol Tartrate (Lopressor Injection -) 5 mg IVPUSH Q4H PRN PRN Reason: HYPERTENSION Midazolam HCl (Versed -) 2 mg IVPUSH ONCE ONE Stop: 11/23/17 11:39 Mupirocin (Bactroban Ointment (For Decolonization) -) 1 applic NS BID [facility] Stop: 11/27/17 21:59 Last Admin: 11/23/17 10:11 Dose: 1 applic Pantoprazole Sodium (Protonix Iv) 40 mg IVPUSH DAILY [facility] Last Admin: 11/23/17 10:12 Dose: 40 mg Prednisone (Deltasone -) 40 mg PO DAILY [facility] Last Admin: 11/23/17 10:08 Dose: 40 mg Quetiapine Fumarate (Seroquel -) 25 mg PO [facility] Ranitidine HCl (Zantac -) 150 mg PO DAILY [facility] Last Admin: 11/23/17 10:09 Dose: 150 mg Roflumilast (Daliresp -) 500 mcg NGT DAILY [facility] Last Admin: 11/23/17 10:09 Dose: 500 mcg Saliva Substitute (Mouthkote Solution -) 1 applic MM DAILY [facility] Last Admin: 11/23/17 10:11 Dose: Not Given Gen: vented, Awake and alert Heart: RRR Lung: scattered rhonchi, no active wheeze noted Abd: soft, nontender Ext: no edema Laboratory Results - last 24 hr 11/22/17 11/22/17 11/22/17 12:40 17:52 21:08 WBC RBC Hgb Hct MCV MCH MCHC RDW Plt Count MPV Anticoagulation Therapy No Result Required. Puncture Site Left radial ABG pH 7.31 L ABG pCO2 at Pt Temp 80.7 H* ABG pO2 at Pt Temp 133.0 H ABG HCO3 39.2 H ABG O2 Sat (Measured) 98.9 ABG O2 Content 12.5 L ABG Base Excess 11.3 H Dionte Test Positive O2 Delivery Device Ventilator Oxygen Flow Rate 100 Vent Mode A/c Vent Rate 12 Mechanical Rate No Result Required. PEEP 8.0 Pressure Support Vent 400 Sodium Potassium Chloride Carbon Dioxide Anion Gap BUN Creatinine Creat Clearance w eGFR POC Glucometer 268 Random Glucose Calcium Phosphorus Magnesium Total Bilirubin AST ALT Alkaline Phosphatase Total Protein Albumin Blood Type O POSITIVE Antibody Screen Negative Crossmatch See Detail 11/22/17 11/22/17 11/23/17 23:08 23:30 00:35 WBC RBC Hgb Hct MCV MCH MCHC RDW Plt Count MPV Anticoagulation Therapy Puncture Site Right radial Left radial ABG pH 7.25 L 7.35 ABG pCO2 at Pt Temp 95.6 H* 74.1 H* D ABG pO2 at Pt Temp 65.9 L D 76.6 L ABG HCO3 40.4 H* 39.8 H ABG O2 Sat (Measured) 90.6 95.7 ABG O2 Content 11.2 L 11.9 L ABG Base Excess 11.2 H 12.5 H Dionte Test Positive Positive O2 Delivery Device Mech vent Mech vent Oxygen Flow Rate 70% 70% Vent Mode A/c A/c Vent Rate 16 16 Mechanical Rate Yes PEEP 8.0 8.0 Pressure Support Vent 400 500 Sodium Potassium Chloride Carbon Dioxide Anion Gap BUN Creatinine Creat Clearance w eGFR POC Glucometer 206.45326 Random Glucose Calcium Phosphorus Magnesium Total Bilirubin AST ALT Alkaline Phosphatase Total Protein Albumin Blood Type Antibody Screen Crossmatch 11/23/17 11/23/17 07:23 07:23 WBC 15.2 H RBC 2.89 L Hgb 8.9 L D Hct 29.1 L D MCV 100.4 H MCH 30.8 MCHC 30.7 L RDW 17.5 H Plt Count 183 MPV 11.4 H Anticoagulation Therapy Puncture Site ABG pH ABG pCO2 at Pt Temp ABG pO2 at Pt Temp ABG HCO3 ABG O2 Sat (Measured) ABG O2 Content ABG Base Excess Dionte Test O2 Delivery Device Oxygen Flow Rate Vent Mode Vent Rate Mechanical Rate PEEP Pressure Support Vent Sodium 149 H Potassium 3.9 Chloride 104 Carbon Dioxide 41 H Anion Gap 4 L BUN 32 H Creatinine 0.7 D Creat Clearance w eGFR > 60 POC Glucometer Random Glucose 79 D Calcium 8.2 L Phosphorus 2.8 Magnesium 2.2 Total Bilirubin 0.7 D AST 10 L ALT 15 Alkaline Phosphatase 99 Total Protein 7.1 Albumin 2.2 L Blood Type Antibody Screen Crossmatch Problem List - Problems (1) Acute respiratory failure with hypoxia Code(s): J96.01 - ACUTE RESPIRATORY FAILURE WITH HYPOXIA (2) Pneumonia Code(s): J18.9 - PNEUMONIA, UNSPECIFIED ORGANISM (3) Diabetes Code(s): E11.9 - TYPE 2 DIABETES MELLITUS WITHOUT COMPLICATIONS ASSESSMENT AND PLAN: Acute Hypoxic Respiratory Failure s/p Tracheostomy Pneumonia Sepsis Interstitial Lung Disease Acute Diastolic Heart Failure improved Acute Kidney Injury Lactic Acidosis resolved DM RLE DVT - CT evaluation - Off ABX - monitor urine output, creatinine - prednisone - Anxiolytics, seroquel qHS - enteral feeds - continue anticoagulation - taper FiO2 to keep SpO2 >90% - Hold spontaneous breathing trials for now - DVT/GI prophylaxis - Vent floor Dr Souza Critical care time spent in reviewing chart, evaluating patient and formulating plan 35 min
--- NOTE | 2017-11-23 15:11 | PN ---
Progress Note, Physician History of Present Illness: Pt seen and examined at bedside. His trache cuff was changed. He is in ICU for observation. - Current Medication List Current Medications: Active Medications Acetaminophen (Tylenol -) 650 mg PO Q6H PRN PRN Reason: FEVER Acetaminophen (Ofirmev Injection -) 1,000 mg IVPB Q6H PRN PRN Reason: FEVER Albuterol/Ipratropium (Duoneb -) 1 amp NEB RQID [facility] Last Admin: 11/23/17 08:00 Dose: 1 amp Alprazolam (Xanax -) 0.5 mg PO Q8H PRN PRN Reason: ANXIETY Amino Acids (Prosource No Carb Liquid Pkt) 30 ml PO BID@0800,1730 [facility] Last Admin: 11/23/17 10:09 Dose: 30 ml Apixaban (Eliquis -) 5 mg PO BID [facility] Last Admin: 11/23/17 10:10 Dose: 5 mg Artificial Tears (Artificial Tears Ointment -) 1 applic OU HS [facility] Chlorhexidine Gluconate (Hibiclens For Decolonization -) 1 applic TP HS [facility] Last Admin: 11/22/17 23:12 Dose: 1 applic Ferrous Sulfate (Feosol) 300 mg GT DAILY [facility] Last Admin: 11/23/17 10:09 Dose: 300 mg Insulin Aspart (Novolog Vial Sliding Scale -) 1 vial SQ ACHS [facility] PRN Reason: Protocol Last Admin: 11/23/17 12:22 Dose: Not Given Insulin Detemir (Levemir Vial) 13 units SQ BID@0700,2200 [facility] Last Admin: 11/23/17 06:09 Dose: 13 units Lactobacillus Acidophilus (Bacid -) 1 tab PEG DAILY [facility] Last Admin: 11/23/17 10:08 Dose: 1 tab Metoprolol Tartrate (Lopressor Injection -) 5 mg IVPUSH Q4H PRN PRN Reason: HYPERTENSION Mupirocin (Bactroban Ointment (For Decolonization) -) 1 applic NS BID [facility] Stop: 11/27/17 21:59 Last Admin: 11/23/17 10:11 Dose: 1 applic Pantoprazole Sodium (Protonix Iv) 40 mg IVPUSH DAILY [facility] Last Admin: 11/23/17 10:12 Dose: 40 mg Prednisone (Deltasone -) 40 mg PO DAILY [facility] Last Admin: 11/23/17 10:08 Dose: 40 mg Quetiapine Fumarate (Seroquel -) 25 mg PO HS [facility] Ranitidine HCl (Zantac -) 150 mg PO DAILY [facility] Last Admin: 11/23/17 10:09 Dose: 150 mg Roflumilast (Daliresp -) 500 mcg NGT DAILY [facility] Last Admin: 11/23/17 10:09 Dose: 500 mcg Saliva Substitute (Mouthkote Solution -) 1 applic MM DAILY [facility] Last Admin: 11/23/17 10:11 Dose: Not Given - Objective Vital Signs: Vital Signs Temperature 97.8 F 11/23/17 06:49 Pulse Rate 92 H 11/23/17 13:00 Respiratory Rate 25 H 11/23/17 13:00 Blood Pressure 149/68 11/23/17 13:00 O2 Sat by Pulse Oximetry (%) 97 11/23/17 09:00 Constitutional: Yes: Calm Eyes: Yes: Conjunctiva Clear Neck: Yes: Other (trache) Cardiovascular: Yes: S1, S2 Respiratory: Yes: Mechanically Ventilated Gastrointestinal: Yes: Soft, Other (peg) Genitourinary: Yes: Incontinence Musculoskeletal: Yes: Muscle Weakness Edema: No Neurological: Yes: Oriented Psychiatric: Yes: Oriented Labs: CBC, BMP 11/23/17 07:23 11/23/17 07:23 INR, PTT INR 1.02 (0.82-1.09) 11/09/17 05:50 - ....Imaging Chest X-ray: Report Reviewed Problem List - Problems (1) Hypernatremia Code(s): E87.0 - HYPEROSMOLALITY AND HYPERNATREMIA (2) MIRLANDE (acute kidney injury) Code(s): N17.9 - ACUTE KIDNEY FAILURE, UNSPECIFIED (3) Acute respiratory failure with hypoxia Code(s): J96.01 - ACUTE RESPIRATORY FAILURE WITH HYPOXIA (4) Diabetes Code(s): E11.9 - TYPE 2 DIABETES MELLITUS WITHOUT COMPLICATIONS (5) Failure to thrive Code(s): ADP0962 - Assessment/Plan Current Medications Generic Name Dose Route Start Last Admin Trade Name Freq PRN Reason Stop Dose Admin Acetaminophen 650 mg 11/22/17 23:20 Tylenol - PO Q6H PRN FEVER Acetaminophen 1,000 mg 11/22/17 23:20 Ofirmev Injection - IVPB Q6H PRN FEVER Albuterol/Ipratropium 1 amp 11/23/17 08:00 11/23/17 08:00 Duoneb - NEB 1 amp RQID [facility] Administration Alprazolam 0.5 mg 11/23/17 11:38 Xanax - PO Q8H PRN ANXIETY Amino Acids 30 ml 11/23/17 08:00 11/23/17 10:09 Prosource No Carb Liquid Pkt PO 30 ml BID@0800,1730 [facility] Administration Apixaban 5 mg 11/23/17 10:00 11/23/17 10:10 Eliquis - PO 5 mg BID [facility] Administration Artificial Tears 1 applic 11/23/17 22:00 Artificial Tears Ointment - OU HS [facility] Chlorhexidine Gluconate 1 applic 11/22/17 22:00 11/22/17 23:12 Hibiclens For Decolonization - TP 1 applic HS [facility] Administration Ferrous Sulfate 300 mg 11/23/17 10:00 11/23/17 10:09 Feosol GT 300 mg DAILY [facility] Administration Insulin Aspart 1 vial 11/23/17 07:00 11/23/17 12:22 Novolog Vial Sliding Scale - SQ Not Given ACHS [facility] Protocol Insulin Detemir 13 units 11/23/17 07:00 11/23/17 06:09 Levemir Vial SQ 13 units BID@0700,2200 [facility] Administration Lactobacillus Acidophilus 1 tab 11/23/17 10:00 11/23/17 10:08 Bacid - PEG 1 tab DAILY [facility] Administration Metoprolol Tartrate 5 mg 11/22/17 23:20 Lopressor Injection - IVPUSH Q4H PRN HYPERTENSION Mupirocin 1 applic 11/22/17 22:00 11/23/17 10:11 Bactroban Ointment (For Decolonization) - NS 11/27/17 21:59 1 applic BID [facility] Administration Pantoprazole Sodium 40 mg 11/23/17 10:00 11/23/17 10:12 Protonix Iv IVPUSH 40 mg DAILY [facility] Administration Prednisone 40 mg 11/23/17 10:00 11/23/17 10:08 Deltasone - PO 40 mg DAILY [facility] Administration Quetiapine Fumarate 25 mg 11/23/17 22:00 Seroquel - PO HS [facility] Ranitidine HCl 150 mg 11/23/17 10:00 11/23/17 10:09 Zantac - PO 150 mg DAILY [facility] Administration Roflumilast 500 mcg 11/23/17 10:00 11/23/17 10:09 Daliresp - NGT 500 mcg DAILY [facility] Administration Saliva Substitute 1 applic 11/23/17 10:00 11/23/17 10:11 Mouthkote Solution - MM Not Given DAILY [facility] Impression 1. MIRLANDE 2. hypernatremia 3. chronic resp failure s/p trache 4. s/p trache 5. s/p peg 6. sepsis 7. interstitial lung disease 8. chf diastolic 9. DM 10. lactic acidosis 11. PNA Plan - s/p trache change - cont with free water, will increase rate - repeat labs in am - follow ct chest - monitor renal function - monitor pulse ox - vent support Dr Gan
[2017-11-23] MEDS: ALPRAZolam 0.25 MG TABLET PO PRN (18:05)
[2017-11-23] MEDS: MINERAL OIL/PETROLATUM,WHITE 3.5 GM TUBE OU SCH (21:54)
[2017-11-23] MEDS: CHLORHEXIDINE GLUCONATE 4% CLEANSER FOR DECOLONIZATION TP SCH (21:54)
[2017-11-23] MEDS: QUEtiapine FUMARATE 25 MG TABLET (FP) PO SCH (21:57)
--- NOTE | 2017-11-24 05:47 | PN ---
Physical Exam: SUBJECTIVE: Patient seen and examined by me this am - pt agitated overnight, tachypneic and tachycardic; given ativan w/ good effect. Trach with audible air leak by night team; pt still satting high 90s with TVs ~300. Afebrile overnight. Tube feeds continued. More sedated in AM, likely secondary to BZs - Dr. Rosario contacted regarding trach leak; states it is likely anatomical issue with trachea, not trach device; recommends transfer to tertiary care center as pt unlikely to tolerate care at [facility] with high FIo2 requirements and multiple decompensations during inpt stay; ICU attending Dr. Souza contacted, agrees with plan; daughter contacted, amenable to transfer; [facility] contacted, transfer process initiated; will await communication with receiving attending OBJECTIVE: Vital Signs Intake & Output 11/21/17 11/22/17 11/23/17 11/24/17 23:59 23:59 23:59 23:59 Intake Total 4200 3600 1470 Balance 4200 3600 1470 Weight 43.227 kg Period Temp Pulse Resp BP Sys/Sutton Pulse Ox Last 24 Hr 97.2 F-98.8 F 92-110 16-31 94-149/51-79 97-100 GENERAL: Somnolent cachectic man, NAD, laying in bed. Vented w/ trach. HEAD: Normal with no signs of trauma. Bitemporal wasting EYES: Sclera anicteric, conjunctiva clear. No ptosis. ENT: Ears normal, nares patent, oropharynx with white, thick palatal exudate. NECK: trach tube in place w/ audible gurgling around trach site, no erythema or drainage. Trachea midline, supple. No JVD noted. LUNGS: Mechanical breath sounds. Still with upper airway congestion noted. BL Fine crackles diffusely. No wheezes, no accessory muscle use HEART: 2/6 systolic ejection murmur at LUSB. Regular rate and rhythm, S1, S2 without murmur, rub or gallop. ABDOMEN: PEG tube in place, no erythema or purulence. Scaphoid abdomen, hypoactive bowel sounds, no guarding, no rebound, no hepatosplenomegaly, no masses. EXTREMITIES: No edema in LEs. 2+ pulses, warm, well-perfused NEUROLOGICAL: CN 2-12 intact. 5/5 strength grossly. Sensation preserved in all extremities. PSYCH: Normal mood, normal affect. SKIN: Warm, dry, normal turgor, no rashes or lesions noted Laboratory Results - last 24 hr CBC, BMP 11/24/17 05:23 11/24/17 05:23 11/23/17 07:23 11/23/17 07:23 11/23/17 11/23/17 07:23 07:23 WBC 15.2 H RBC 2.89 L Hgb 8.9 L D Hct 29.1 L D MCV 100.4 H MCH 30.8 MCHC 30.7 L RDW 17.5 H Plt Count 183 MPV 11.4 H Sodium 149 H Potassium 3.9 Chloride 104 Carbon Dioxide 41 H Anion Gap 4 L BUN 32 H Creatinine 0.7 D Creat Clearance w eGFR > 60 Random Glucose 79 D Calcium 8.2 L Phosphorus 2.8 Magnesium 2.2 Total Bilirubin 0.7 D AST 10 L ALT 15 Alkaline Phosphatase 99 Total Protein 7.1 Albumin 2.2 L Active Medications Generic Name Dose Route Start Last Admin Trade Name Freq PRN Reason Stop Dose Admin Acetaminophen 650 mg 11/22/17 23:20 Tylenol - PO Q6H PRN FEVER Acetaminophen 1,000 mg 11/22/17 23:20 Ofirmev Injection - IVPB Q6H PRN FEVER Albuterol/Ipratropium 1 amp 11/23/17 08:00 11/23/17 20:55 Duoneb - NEB 1 amp RQID SONAL Administration Alprazolam 0.5 mg 11/23/17 11:38 11/23/17 18:05 Xanax - PO 0.5 mg Q8H PRN Administration ANXIETY Amino Acids 30 ml 11/23/17 08:00 11/23/17 17:18 Prosource No Carb Liquid Pkt PO 30 ml BID@0800,1730 SONAL Administration Apixaban 5 mg 11/23/17 10:00 11/23/17 22:35 Eliquis - PO 5 mg BID SONAL Administration Artificial Tears 1 applic 11/23/17 22:00 11/23/17 21:54 Artificial Tears Ointment - OU 1 applic HS SONAL Administration Chlorhexidine Gluconate 1 applic 11/22/17 22:00 11/23/17 21:54 Hibiclens For Decolonization - TP 1 applic HS SONAL Administration Ferrous Sulfate 300 mg 11/23/17 10:00 02/08/18 10:09 Feosol GT 300 mg DAILY SONAL Administration Insulin Aspart 1 vial 11/23/17 07:00 11/23/17 21:54 Novolog Vial Sliding Scale - SQ Not Given ACHS [facility] Protocol Insulin Detemir 13 units 11/23/17 07:00 11/23/17 21:54 Levemir Vial SQ 13 units BID@0700,2200 SONAL Administration Lactobacillus Acidophilus 1 tab 11/23/17 10:00 11/23/17 10:08 Bacid - PEG 1 tab DAILY SONAL Administration Metoprolol Tartrate 5 mg 11/22/17 23:20 Lopressor Injection - IVPUSH Q4H PRN HYPERTENSION Mupirocin 1 applic 11/22/17 22:00 11/23/17 21:53 Bactroban Ointment (For Decolonization) - NS 11/27/17 21:59 1 applic BID SONAL Administration Pantoprazole Sodium 40 mg 11/23/17 10:00 11/23/17 10:12 Protonix Iv IVPUSH 40 mg DAILY SONAL Administration Prednisone 40 mg 11/23/17 10:00 11/23/17 10:08 Deltasone - PO 40 mg DAILY SONAL Administration Quetiapine Fumarate 25 mg 11/23/17 22:00 11/23/17 21:57 Seroquel - PO 25 mg HS SONAL Administration Ranitidine HCl 150 mg 11/23/17 10:00 11/23/17 10:09 Zantac - PO 150 mg DAILY SONAL Administration Roflumilast 500 mcg 11/23/17 10:00 11/23/17 10:09 Daliresp - NGT 500 mcg DAILY [facility] Administration Saliva Substitute 1 applic 11/23/17 10:00 11/23/17 10:11 Mouthkote Solution - MM Not Given DAILY [facility] Microbiology 11/18/17 21:30 Stool Clostridium difficile Antigen (CHUY) - Final 11/18/17 21:30 Stool Clostridium difficile Toxin Assay - Final 11/13/17 17:30 Blood - Peripheral Venous Blood Culture - Final NO GROWTH AFTER 5 DAYS INCUBATION 11/13/17 17:10 Blood - Peripheral Venous Blood Culture - Final NO GROWTH AFTER 5 DAYS INCUBATION 11/14/17 14:30 Sputum - Endotrachea Suction/Ventilator Gram Stain - Final 11/14/17 14:30 Sputum - Endotrachea Suction/Ventilator Sputum Culture - Final Klebsiella Pneumoniae 11/14/17 22:00 Urine - Urine Clean Catch Urine Culture - Final Yeast Like Organism 11/15/17 11:00 Nasopharyngeal Swab Influenza Types A,B Antigen (CHUY) - Final 11/15/17 11:00 Nasopharyngeal Swab - Final 10/21/17 06:00 Serum Cryptococcal Antigen - Final 10/19/17 19:30 Sputum - Expectorated Gram Stain - Final 10/19/17 19:30 Sputum - Expectorated Sputum Culture - Final NORMAL RESPIRATORY TOYIN 10/17/17 10:10 Blood - Peripheral Venous Blood Culture - Final NO GROWTH AFTER 5 DAYS INCUBATION 10/17/17 10:10 Blood - Peripheral Venous Blood Culture - Final NO GROWTH AFTER 5 DAYS INCUBATION 10/17/17 13:57 Urine - Urine Clean Catch Urine Culture - Final NO GROWTH OBTAINED 10/17/17 13:57 Urine For Antigen Detection Legionella Antigen - Final 10/17/17 13:57 Urine For Antigen Detection Streptococcus pneumoniae Antigen (M - Final 10/17/17 10:25 Nasopharyngeal Swab Influenza Types A,B Antigen (CHUY) - Final 10/17/17 10:25 Nasopharyngeal Swab - Final Recent imaging: CXR 10/21/17 - Since 10/30/2017, the ARDS pattern has diminished minimally. Follow- up recommended. CT Abdomen 10/31 - The gallbladder demonstrates no definite CT pathology. There is nonspecific minimal to mild intrahepatic biliary tract dilatation. Clinical/ laboratory correlation is suggested as well as with follow-up CT. Dilatation of the main pancreatic duct as noted above. Pancreatic ductal dilatation was also noted on a 2013 ultrasound exam. Several small pancreatic head calcifications are seen suggestive of chronic calcific pancreatitis. No gross mass lesion is identified. Correlate with MRI/MRCP when the patient's clinical condition permits. No CT evidence of acute pancreatitis. Mild acute pancreatitis is frequently not demonstrable on CT or MRI. The partially imaged lower chest demonstrates prominent bilateral interstitial thickening with relative peripheral sparing - ? Noncardiogenic edema, infectious versus noninfectious pneumonitis, hemorrhage. Correlate clinically. This finding may be somewhat increased in comparison to a chest CT exam of 10/20/2017. No pleural effusion is seen. Bibasilar bronchiectasis. There is partial imaging of nonspecific mediastinal lymphadenopathy (as described on chest CT). Prominent atherosclerotic vascular calcifications. Mild to moderate L1 and mild L5 vertebral body compression fractures are noted which appear chronic. No bony retropulsion is seen. The visualized osseous structures appear to be diffusely demineralized. Clinical/laboratory correlation is suggested. Additional evaluation utilizing bone densitometry/DEXA scan may be considered. CXR 11/01 - Since a prior study of 10/31/2017, extensive opacification is identified throughout the lung james with little significant change. This is consistent with ARDS. No pleural effusions have developed. CXR 11/02 - No significant change from prior cxr. Still with BL reticulonodular diffuse opacification. CXR 11/05 - No significant change. BL reticulonodular pattern. CXR 11/06 - No change overall CXR 11/07 - Trach in place. Diffuse BL interstitial and possible alveolar changes. No pneumo or pleural effusions. ekg 11/08 - NSR, Rate 86, QTC 409, LVH, NANCY, no ST/Twave changes CXR 11/08 - No significant interval changes, BL parenchymal reticulonodular infiltrates, ETT tube, NG tube in place CXR 11/09 - no change from prior CXR 11/10 - No change CXR 11/13 - Good placement of ETT tube CXR 11/14 - no significant change Renal U/S 11/14 - Normal kidneys BL. CXR 11/15 - No change CXR 11/16 - R lower lobe opacity with air bronchograms; clinically correlate CXR 11/17 - No change from prior xr. CT non-con head 11/19 - No acute bleed or mass effect per [facility]. Official read pending CT cervical spine 11/19 - No evidence of gross fracture. Official read pending CXR 11/20 - No significant change. Chronic ILD CXR 11/22 - New Trach in position. Diffuse reticulonodular opacities BL, per prior films. CT Chest 11/23 - IMPRESSION: 1. S/P tracheostomy with widely patent trachea. 2. Extensive COPD with large areas of acute consolidation within both lungs that have developed since 10/20/2017. 3. Moderate mediastinal lymphadenopathy. Clinical correlation and follow-up recommended. Please see above discussion. CXR 11/24 - IMPRESSION: Diffuse bilateral interstitial and airspace opacities are again seen that may be on the basis of chronic interstitial lung disease plus or minus pulmonary venous congestion or pneumonic infiltrates without gross interval change since the oldest available chest x-ray dated 10/17/2017. Correlate clinically. 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 #Acute hypoxic respiratory failure (possibly 2/2 ILD vs Pneumonitis)- s/p trach 11/07 after failed vent wean; trach exchanged 11/11, 11/19, 11/23 - pt satting high 90s on 70% FIO2; Poor TV returns, secondary to air leak around trach; Dr. Rosario contacted; believes it is likely secondary to tracheomalacia - Attempt O2 taper again. Maintain sats >88%. - c/w Prednisone 40mg daily - c/w Roflumilast and Duonebs QID - PEG feeds at 50ml this AM; c/w 300ml water flushes every 4 hours - Agitated overnight; Given one dose of ativan - Seroquel 25mg PO qHS for agitation - Pt still on todd mittens; tends to own - Plan for transfer to [facility] for further management - Current vent setting 10//70%/8 #Leukocytosis- WBC 15.2-> 12.4, no fevers; suspected possible aspiration event; - off abx - trend fever, wbc curve - flu swab negative - If febrile, send cultures and start on empiric abx #hypernatremia, Na 145 today: Pre-renal; FeNa 0.3%; likely secondary to hypovolemia - Renal consulted, recs appreciated - free water flushes via PEG tube 300ml q4h - Daily BMP, trend Na #MRILANDE - Cr 0.7 today, resolved - Renal U/S nrml - Renal consulted, following - Trend Cr #agitation - repeated attempts to remove trach; pt tends to sundown at night - todd mittens - seroquel 25mg PO qHS - received one dose of ativan overnight #RLE DVT s/p IVC filter 10/20 and thrombectomy 10/24 -c/w Eliquis 5mg BID #Acute on diastolic CHF - Not clinically volume overloaded - c/w hold lasix - No longer requires daily wts #DM (A1c 7.4 on admission) - BG 258 today - BGM - ISS ACHS - levemir 13u BID #BPH - - flomax held #Diarrhea - resolved - Monitor #Nicotine dependence - c/w nicotine patch #PPX Eliquis 5mg BID Zantac 150mg daily #FEN: Free water flushes, 300ml QID Daily BMP, trend Na Cont tube feeds Full code, dispo to ICU Discussed with attending, Dr. Leroy Reeves, PGY1 Visit type - Emergency Visit Emergency Visit: Yes ED Registration Date: 10/17/17 Care time: The patient presented to the Emergency Department on the above date and was hospitalized for further evaluation of their emergent condition. - New Patient This patient is new to me today: No - Critical Care Critical Care patient: Yes Total Critical Care Time (in minutes): 35 Critical Care Statement: The care of this patient involved high complexity decision making to prevent further life threatening deterioration of the patient 's condition and/or to evaluate & treat vital organ system(s) failure or risk of failure.
[2017-11-24] MEDS: BANATROL PLUS POWDER PACKET PEG SCH ×3 (05:58→22:41)
[2017-11-24] MEDS: ALPRAZolam 0.25 MG TABLET PO PRN ×2 (05:58→10:30)
[2017-11-24] MEDS: INSULIN SLIDING SCALE (NOVOLOG) 1 VIAL SQ SCH ×4 (05:59→22:42)
[2017-11-24] MEDS: INSULIN DETEMIR 100 UNITS/ML MDV SQ SCH ×2 (05:59→22:44)
[2017-11-24 06:16] LABS: BASO % 0.1 % (0-2.0); EOS % 0.4 % (0-4.5); HEMATOCRIT 27.7 % (35.4-49); HEMOGLOBIN 8.8 GM/dL (11.7-16.9); LYMPH % 9.3 % (8-40); MCH 32.1 pg (25.7-33.7); MCHC 31.8 g/dl (32.0-35.9); MEAN CELL VOLUME 101.1 fl (80-96); MEAN PLT VOLUME 12.3 fl (7.5-11.1); MONO % 6.3 % (3.8-10.2); NEUT % 83.9 % (42.8-82.8); PLATELET COUNT 177 K/MM3 (134-434); RBC 2.74 M/mm3 (4.00-5.60); RDW 17.6 % (11.9-15.9); WHITE BLOOD COUNT 12.1 K/mm3 (4.0-10.0)
[2017-11-24 06:45] LABS: CHLORIDE 101 mmol/L (98-107); POTASSIUM 4.1 mmol/L (3.5-5.1); SODIUM 145 mmol/L (136-145)
[2017-11-24 07:04] LABS: ALBUMIN 2.1 g/dl (3.4-5.0); ALK PHOS 121 U/L (45-117); ANION GAP 4 (8-16); BILIRUBIN,TOTAL 0.4 mg/dL (0.2-1.0); BLOOD UREA NITROGEN 37 mg/dL (7-18); CO2 40 mmol/L (21-32); CREATININE 0.7 mg/dL (0.7-1.3); GLUCOSE,RANDOM 240 mg/dL (74-106); MAGNESIUM 2.2 mg/dL (1.8-2.4); PHOSPHOROUS 2.3 mg/dL (2.5-4.9); SGOT/AST 9 U/L (15-37); SGPT/ALT 17 U/L (12-78); TOT PROT 6.9 g/dl (6.4-8.2)
--- NOTE | 2017-11-24 08:22 | PN ---
Physical Exam: SUBJECTIVE: Patient seen and examined Patient is a 62 year old male who was BIBEMS for hypoxic respiratory failure eating food, off of pressers, but with RLE DVT without PE s/p IVC filter, thrombectomy, catheter directed heparin infusion, requiring tracheostomy. Patient was agitated overnight and received ativan. He has been tolerating the new trach well with tidal volumes in the 300s. Otherwise no acute events. OBJECTIVE: Vital Signs Period Temp Pulse Resp BP Sys/Sutton Pulse Ox Last 24 Hr 97.2 F-98.8 F 92-110 16-32 94-158/51-79 97-100 GENERAL: The patient is trached, in no acute distress. HEAD: Normal with no signs of trauma. EYES: sclera anicteric, conjunctiva clear. No ptosis. ENT: oropharynx clear without exudates, moist mucous membranes. NECK: Trachea midline, full range of motion, supple. LUNGS: Breath sounds equal, Bilateral rhonchi auscultated on exam, no wheezes, no accessory muscle use. HEART: Regular rate and rhythm, S1, S2 without murmur, rub or gallop. ABDOMEN: Soft, nontender, nondistended, normoactive bowel sounds, no guarding, no rebound, no hepatosplenomegaly, no masses. EXTREMITIES: 2+ pulses, warm, well-perfused, NEUROLOGICAL:Trached. gait not observed. PSYCH: Normal mood, normal affect. SKIN: Warm, dry, normal turgor, no rashes or lesions noted Laboratory Results - last 24 hr 11/23/17 11/24/17 11/24/17 07:23 05:23 05:23 WBC 12.1 H RBC 2.74 L Hgb 8.8 L Hct 27.7 L MCV 101.1 H MCH 32.1 MCHC 31.8 L RDW 17.6 H Plt Count 177 MPV 12.3 H Neutrophils % 83.9 H Lymphocytes % 9.3 D Monocytes % 6.3 Eosinophils % 0.4 D Basophils % 0.1 Sodium 149 H 145 Potassium 3.9 4.1 Chloride 104 101 Carbon Dioxide 41 H 40 H Anion Gap 4 L 4 L BUN 32 H 37 H Creatinine 0.7 D 0.7 Creat Clearance w eGFR > 60 > 60 Random Glucose 79 D 240 H D Calcium 8.2 L 8.0 L Phosphorus 2.8 2.3 L Magnesium 2.2 2.2 Total Bilirubin 0.7 D 0.4 D AST 10 L 9 L ALT 15 17 Alkaline Phosphatase 99 121 H D Total Protein 7.1 6.9 Albumin 2.2 L 2.1 L Active Medications Generic Name Dose Route Start Last Admin Trade Name Freq PRN Reason Stop Dose Admin Acetaminophen 650 mg 11/22/17 23:20 Tylenol - PO Q6H PRN FEVER Acetaminophen 1,000 mg 11/22/17 23:20 Ofirmev Injection - IVPB Q6H PRN FEVER Albuterol/Ipratropium 1 amp 11/23/17 08:00 11/23/17 20:55 Duoneb - NEB 1 amp RQID SONAL Administration Alprazolam 0.5 mg 11/23/17 11:38 11/24/17 05:58 Xanax - PO 0.5 mg Q8H PRN Administration ANXIETY Amino Acids 30 ml 11/23/17 08:00 11/23/17 17:18 Prosource No Carb Liquid Pkt PO 30 ml BID@0800,1730 SONAL Administration Apixaban 5 mg 11/23/17 10:00 11/23/17 22:35 Eliquis - PO 5 mg BID SONAL Administration Artificial Tears 1 applic 11/23/17 22:00 11/23/17 21:54 Artificial Tears Ointment - OU 1 applic HS SONAL Administration Chlorhexidine Gluconate 1 applic 11/22/17 22:00 11/23/17 21:54 Hibiclens For Decolonization - TP 1 applic HS SONAL Administration Ferrous Sulfate 300 mg 11/23/17 10:00 11/23/17 10:09 Feosol GT 300 mg DAILY SONAL Administration Insulin Aspart 1 vial 11/23/17 07:00 11/24/17 05:59 Novolog Vial Sliding Scale - SQ 4 units ACHS SONAL Administration Protocol Insulin Detemir 13 units 11/23/17 07:00 11/24/17 05:59 Levemir Vial SQ 13 units BID@0700,2200 SONAL Administration Lactobacillus Acidophilus 1 tab 11/23/17 10:00 11/23/17 10:08 Bacid - PEG 1 tab DAILY SONAL Administration Metoprolol Tartrate 5 mg 11/22/17 23:20 Lopressor Injection - IVPUSH Q4H PRN HYPERTENSION Mupirocin 1 applic 11/22/17 22:00 02/08/18 21:53 Bactroban Ointment (For Decolonization) - NS 11/27/17 21:59 1 applic BID SONAL Administration Pantoprazole Sodium 40 mg 11/23/17 10:00 11/23/17 10:12 Protonix Iv IVPUSH 40 mg DAILY SONAL Administration Prednisone 40 mg 11/23/17 10:00 11/23/17 10:08 Deltasone - PO 40 mg DAILY SONAL Administration Quetiapine Fumarate 25 mg 11/23/17 22:00 11/23/17 21:57 Seroquel - PO 25 mg HS SONAL Administration Ranitidine HCl 150 mg 11/23/17 10:00 11/23/17 10:09 Zantac - PO 150 mg DAILY SONAL Administration Roflumilast 500 mcg 11/23/17 10:00 11/23/17 10:09 Daliresp - NGT 500 mcg DAILY SONAL Administration Saliva Substitute 1 applic 11/23/17 10:00 11/23/17 10:11 Mouthkote Solution - MM Not Given DAILY SONAL ASSESSMENT/PLAN: Patient is a 62 year old male who was BIBEMS for hypoxic respiratory failure eating food, off of pressers, but with RLE DVT without PE s/p IVC filter, thrombectomy, catheter directed heparin infusion, requiring tracheostomy. Neuro: #Nicotine Dependence: - Nicotine patch 7 MG daily #Anxiety -Continue 0.5 xanax q8h for management of anxiety. #Agitation -Continue seroquel 25mg for management of agitation. CV: #Septic Shock vs. iatrogenic hypovolemic shock vs. cardiogenic shock: original presentation - Tachycardia of 105, Respiratory rate 26, Fever of 101, WBC of 11.7, Hypotension with SBP <90 with no response to IV fluids, and Lactic Acidosis of 3.6. Source unclear but likely PNA. Off pressers - Resolved #DVT: U/S positive for Right calf DVT, s/p thrombectomy - s/p IR direct infusion, doing well - Continue Eliquis #Chest Pain: - EKG unchanged Pulm: #Acute Hypoxic Respiratory Failure: Legionalla and strep negative. Zosyn and Vancomycin given in ED. Patient denies any recent hospitalization or abx use. Original chest X-ray reveals bilateral multifocal inflammatory changes (ARDS) vs. congestive heart failure. given JVD and crackles it is likely the later. treated for CAP. ECHO showing mild mitral regurg, mild/mod tricuspid regurg, mild PHTN. CT demonstrating diffuse interstitial lung disease AND XRs evidencing occasional volume overload. Patient currenty has a trach. Patient was transferred back to the ICU for inability to maintain tidal volumes. The patient had his trach replaced overnight and has been maintaining tidal volumes with the new trach. - Patient tolerating new trach replacement. - Continue Prednisone 40 daily - Continue scheduled duonebs. - Continue daliresp. - All cultures negative ID: likely ILD with GGO vs. infectious pattern. HIV, influenza, strep, legionella neg. BCx NGTD, sputum Cx NGTD. Completed Azithromycin and Ceftriaxone for suspected CAP. Concern for right lower lobe pneumonia. Urine cultures growing yeast. Sputum culture growing lactose fermenting negative bacilli. - Will continue to monitor. - ID recs appreciated Renal: - CTM - Avoid nephrotoxic medications Heme: #Macrocytic Anemia: Hemoglobin 9.2 with MCV 101. Ferritin 882 (likely reactive) -Hb stable Endo #NIDDM: -Patient is no longer having hypoglycemic episodes requiring D50 pushes -Will continue to monitor BGM and provided D50 pushes as needed. -ISS : #BPH -Patient on Tamsulosin 0.4mg daily GI: #Peptic Ulcer Disease: History of mesh according to family and had Endoscopy two months. Was given medications according to patients daughter and completed course. - on PPI FEN -Electrolytes Repleted as needed. -Continue PEG tube feeds. PPX: - Eliquis - Protonix Disposition: Stable for transfer to the floors. Visit type - Emergency Visit Emergency Visit: No - New Patient This patient is new to me today: No - Critical Care Critical Care patient: No
[2017-11-24] MEDS: ALBUTEROL SO4 2.5/IPRATROPIUM 0.5 INH SOL 3 ML VIAL.NEB. NEB SCH ×4 (09:20→20:30)
[2017-11-24] MEDS ORDERED: PT OWN MED DRAWER 7, Y5N ONE (10:15)
[2017-11-24] MEDS: RANITIDINE HCL 150 MG TABLET (FP) PO SCH (10:30)
[2017-11-24] MEDS: predniSONE 20 MG TABLET (UD) PO SCH (10:30)
[2017-11-24] MEDS: LACTOBACILLUS ACIDOPHILUS 1 EACH TAB (FP) PEG SCH (10:30)
[2017-11-24] MEDS: AMINO ACIDS/PROTEIN HYDROLYS 30 ML LIQUID.PKT PO SCH ×2 (10:31→18:34)
[2017-11-24] MEDS: MUPIROCIN 2% TOPICAL OINTMENT FOR DECOLONIZATION NS SCH ×2 (10:31→22:42)
[2017-11-24] MEDS: PANTOPRAZOLE SODIUM 40 MG VIAL IVPUSH SCH (10:32)
[2017-11-24] MEDS: FERROUS SO4 300 MG/5 ML ORAL SOLN UNIT DOSE CUPS GT SCH (10:32)
--- NOTE | 2017-11-24 11:53 | PN ---
Teaching Attending Note Name of Resident: Evans Marie ATTENDING PHYSICIAN STATEMENT I saw and evaluated the patient. I reviewed the resident's note and discussed the case with the resident. I agree with the resident's findings and plan as documented. SUBJECTIVE: Patient seen and examined in the ICU. Awake and alert on AC Mode of vent. Maintaining minute ventilation on SIMV mode. OBJECTIVE: Intake & Output 11/21/17 11/22/17 11/23/17 11/24/17 23:59 23:59 23:59 23:59 Intake Total 4200 3600 1470 690 Balance 4200 3600 1470 690 Weight 95 lb 4.8 oz 95 lb 4 oz Last Vital Signs Temp Pulse Resp BP Pulse Ox 97.2 F L 114 H 35 H 158/63 94 L 11/24/17 02:00 11/24/17 11:22 11/24/17 11:22 11/24/17 06:00 11/24/17 11:22 Active Medications Acetaminophen (Tylenol -) 650 mg PO Q6H PRN PRN Reason: FEVER Acetaminophen (Ofirmev Injection -) 1,000 mg IVPB Q6H PRN PRN Reason: FEVER Albuterol/Ipratropium (Duoneb -) 1 amp NEB RQID [facility] Last Admin: 11/24/17 09:20 Dose: 1 amp Alprazolam (Xanax -) 0.5 mg PO Q8H PRN PRN Reason: ANXIETY Last Admin: 11/24/17 10:30 Dose: 0.5 mg Amino Acids (Prosource No Carb Liquid Pkt) 30 ml PO BID@0800,1730 [facility] Last Admin: 11/24/17 10:31 Dose: 30 ml Apixaban (Eliquis -) 5 mg PO BID [facility] Last Admin: 11/23/17 22:35 Dose: 5 mg Artificial Tears (Artificial Tears Ointment -) 1 applic OU HS [facility] Last Admin: 11/23/17 21:54 Dose: 1 applic Chlorhexidine Gluconate (Hibiclens For Decolonization -) 1 applic TP HS [facility] Last Admin: 11/23/17 21:54 Dose: 1 applic Ferrous Sulfate (Feosol) 300 mg GT DAILY [facility] Last Admin: 11/24/17 10:32 Dose: 300 mg Insulin Aspart (Novolog Vial Sliding Scale -) 1 vial SQ ACHS [facility] PRN Reason: Protocol Last Admin: 11/24/17 05:59 Dose: 4 units Insulin Detemir (Levemir Vial) 13 units SQ BID@0700,2200 [facility] Last Admin: 11/24/17 05:59 Dose: 13 units Lactobacillus Acidophilus (Bacid -) 1 tab PEG DAILY [facility] Last Admin: 11/24/17 10:30 Dose: 1 tab Metoprolol Tartrate (Lopressor Injection -) 5 mg IVPUSH Q4H PRN PRN Reason: HYPERTENSION Mupirocin (Bactroban Ointment (For Decolonization) -) 1 applic NS BID [facility] Stop: 11/27/17 21:59 Last Admin: 11/24/17 10:31 Dose: 1 applic Pantoprazole Sodium (Protonix Iv) 40 mg IVPUSH DAILY [facility] Last Admin: 11/24/17 10:32 Dose: 40 mg Prednisone (Deltasone -) 40 mg PO DAILY [facility] Last Admin: 11/24/17 10:30 Dose: 40 mg Quetiapine Fumarate (Seroquel -) 25 mg PO HS [facility] Last Admin: 11/23/17 21:57 Dose: 25 mg Ranitidine HCl (Zantac -) 150 mg PO DAILY [facility] Last Admin: 11/24/17 10:30 Dose: 150 mg Roflumilast (Daliresp -) 500 mcg NGT DAILY [facility] Last Admin: 11/23/17 10:09 Dose: 500 mcg Saliva Substitute (Mouthkote Solution -) 1 applic MM DAILY [facility] Last Admin: 11/23/17 10:11 Dose: Not Given Gen: vented, Drowsy but arousable Heart: RRR Lung: scattered rhonchi, no active wheeze noted Abd: soft, nontender Ext: no edema Laboratory Results - last 24 hr 11/24/17 11/24/17 05:23 05:23 WBC 12.1 H RBC 2.74 L Hgb 8.8 L Hct 27.7 L MCV 101.1 H MCH 32.1 MCHC 31.8 L RDW 17.6 H Plt Count 177 MPV 12.3 H Neutrophils % 83.9 H Lymphocytes % 9.3 D Monocytes % 6.3 Eosinophils % 0.4 D Basophils % 0.1 Sodium 145 Potassium 4.1 Chloride 101 Carbon Dioxide 40 H Anion Gap 4 L BUN 37 H Creatinine 0.7 Creat Clearance w eGFR > 60 Random Glucose 240 H D Calcium 8.0 L Phosphorus 2.3 L Magnesium 2.2 Total Bilirubin 0.4 D AST 9 L ALT 17 Alkaline Phosphatase 121 H D Total Protein 6.9 Albumin 2.1 L Problem List - Problems (1) Acute respiratory failure with hypoxia Code(s): J96.01 - ACUTE RESPIRATORY FAILURE WITH HYPOXIA (2) Pneumonia Code(s): J18.9 - PNEUMONIA, UNSPECIFIED ORGANISM (3) Diabetes Code(s): E11.9 - TYPE 2 DIABETES MELLITUS WITHOUT COMPLICATIONS ASSESSMENT AND PLAN: Acute Hypoxic Respiratory Failure s/p Tracheostomy Pneumonia Sepsis Interstitial Lung Disease Acute Diastolic Heart Failure improved Acute Kidney Injury Lactic Acidosis resolved DM RLE DVT - monitor urine output, creatinine - prednisone - Anxiolytics, seroquel qHS - enteral feeds - continue anticoagulation - taper FiO2 to keep SpO2 >90% - Spontaneous breathing trials as tolerated - DVT/GI prophylaxis - Vent floor Dr Souza Critical care time spent in reviewing chart, evaluating patient and formulating plan 35 min
[2017-11-24] MEDS: ROFLUMILAST 500 MCG TABLET NGT SCH (14:17)
[2017-11-24] MEDS: APIXABAN 5 MG TABLET PO SCH ×2 (14:17→22:41)
[2017-11-24] MEDS: LYTES/YERBA SANTA 240 ML BOTTLE MM SCH (14:17)
--- NOTE | 2017-11-24 14:34 | PN ---
Teaching Attending Note Name of Resident: Dylon Reeves ATTENDING PHYSICIAN STATEMENT I saw and evaluated the patient. I reviewed the resident's note and discussed the case with the resident. I agree with the resident's findings and plan as documented. SUBJECTIVE:resting comfortable. denies CP and SOB OBJECTIVE: Last Vital Signs Temp Pulse Resp BP Pulse Ox 98.0 F 121 H 29 H 138/64 94 L 11/24/17 10:11/24/17 12:11/24/17 12:11/24/17 12:00 11/24/17 11:22 General alert, thin, cachectic CV S1 S2 tachycardic no murmur/rub/gallop Lungs coarse breath sounds diffusely Abdomen soft NT/ND +peg extremities no pedal edema ASSESSMENT AND PLAN: 62 yo M active smoker, pMHx of NIDDM, PUD, BPH admitted with acute hypoxic respiratory failure, and extensive RLE DVT 1. Acute hypoxic respiratory failure, suspect from ?ILD with pneumonitis- s/p intubation 11/03 with failed weaning and now s/p trach 11/07. trach exchanged 11/19. CT showed patent trachea. however have been unable to titrate pt down further as unable to tolerate. requiring high oxygen requirements. pt may benefit from specialized facility as we are unable to offer alternative management. FiO2 70%. goal SpO2 >88%. on pred 40mg 2. RLE DVT- s/p IVC filter 10/20, thrombectmy 10/24. on eliquis 5mg BID. monitor for bleeding 3. Sepsis due to suspected aspiration PNA-some leukocytosis likely stress induced. afebrile. do not think infection at this time. completed treatment for PNA twice this hospital stay. 4. Acute diastolic heart failure- s/p intermittent lasix IV. clinically euvolemic. will hold for now 5. Iron deficiency anemia and anemia of chronic disease- possible due to frequent blood draws and comorbidities. s/p 1 unit PRBC this hospital stay. cont iron supplementation 6. Hypernatremia- stable. cont free water flushes 7. antibiotic assoc Diarrhea-likely due to prolonged abx use. now resolved. on bacid and banatol. 8. continuous nicotine dependence- nicotine patch 9. cachexia- severe malnutrition evident by body habitus. s/p PEG 11/09. tolerating TF 10. DM- improved. levemir 13 units BID. cont to titrate as needed. 11. Agitation- intermittent periods of agitation. off 2 point restraints >24H. on seroquel HS. 12. PPX- ppi/eliquis 13. [facility] is not an option at this time as insurance does not offer coverage. pt has been too unstable for SNF placement and would likely decompensate further at a nursing facility. would benefit from tertiary care placement. The care of this patient involved high complexity decision making to prevent further life threatening deterioration of the patient's condition and/or to evaluate & treat vital organ system(s) failure or risk of failure. 35 minutes
--- NOTE | 2017-11-24 16:15 | HOSP ---
Physical Examination Vital Signs: Vital Signs Temperature 98.0 F 11/24/17 10:00 Pulse Rate 114 H 11/24/17 14:30 Respiratory Rate 30 H 11/24/17 14:30 Blood Pressure 138/64 11/24/17 12:00 O2 Sat by Pulse Oximetry (%) 93 L 11/24/17 14:30 Labs: CBC, BMP 11/24/17 05:23 11/24/17 05:23 Hospitalist Encounter Assessment: Spoke with patients daughter Ms. Cazares today at 4:10pm regarding transferring patient to [facility] for higher level of care. She agreed and wants to get updates. Called [facility] today, have given the information regarding the patient. Awaiting call back. Informed Dr. Souza, Dr. Rosario, Dr. Harper and ICU resident. Visit type - Emergency Visit Emergency Visit: Yes ED Registration Date: 10/17/17 Care time: The patient presented to the Emergency Department on the above date and was hospitalized for further evaluation of their emergent condition. - New Patient This patient is new to me today: No - Critical Care Critical Care patient: Yes Total Critical Care Time (in minutes): 35 Critical Care Statement: The care of this patient involved high complexity decision making to prevent further life threatening deterioration of the patient 's condition and/or to evaluate & treat vital organ system(s) failure or risk of failure.
--- NOTE | 2017-11-24 17:04 | PN ---
Progress Note, Physician History of Present Illness: Pt seen and examined at bedside. He remains in the ICU. - Current Medication List Current Medications: Active Medications Acetaminophen (Tylenol -) 650 mg PO Q6H PRN PRN Reason: FEVER Acetaminophen (Ofirmev Injection -) 1,000 mg IVPB Q6H PRN PRN Reason: FEVER Albuterol/Ipratropium (Duoneb -) 1 amp NEB RQID [facility] Last Admin: 11/24/17 16:50 Dose: 1 amp Alprazolam (Xanax -) 0.5 mg PO Q8H PRN PRN Reason: ANXIETY Last Admin: 11/24/17 10:30 Dose: 0.5 mg Amino Acids (Prosource No Carb Liquid Pkt) 30 ml PO BID@0800,1730 [facility] Last Admin: 11/24/17 10:31 Dose: 30 ml Apixaban (Eliquis -) 5 mg PO BID [facility] Last Admin: 11/24/17 14:17 Dose: 5 mg Artificial Tears (Artificial Tears Ointment -) 1 applic OU HS [facility] Last Admin: 11/23/17 21:54 Dose: 1 applic Chlorhexidine Gluconate (Hibiclens For Decolonization -) 1 applic TP HS [facility] Last Admin: 11/23/17 21:54 Dose: 1 applic Ferrous Sulfate (Feosol) 300 mg GT DAILY [facility] Last Admin: 11/24/17 10:32 Dose: 300 mg Insulin Aspart (Novolog Vial Sliding Scale -) 1 vial SQ ACHS [facility] PRN Reason: Protocol Last Admin: 11/24/17 14:17 Dose: 4 units Insulin Detemir (Levemir Vial) 13 units SQ BID@0700,2200 [facility] Last Admin: 11/24/17 05:59 Dose: 13 units Lactobacillus Acidophilus (Bacid -) 1 tab PEG DAILY [facility] Last Admin: 11/24/17 10:30 Dose: 1 tab Metoprolol Tartrate (Lopressor Injection -) 5 mg IVPUSH Q4H PRN PRN Reason: HYPERTENSION Mupirocin (Bactroban Ointment (For Decolonization) -) 1 applic NS BID [facility] Stop: 11/27/17 21:59 Last Admin: 11/24/17 10:31 Dose: 1 applic Pantoprazole Sodium (Protonix Iv) 40 mg IVPUSH DAILY [facility] Last Admin: 11/24/17 10:32 Dose: 40 mg Prednisone (Deltasone -) 40 mg PO DAILY [facility] Last Admin: 11/24/17 10:30 Dose: 40 mg Quetiapine Fumarate (Seroquel -) 25 mg PO HS [facility] Last Admin: 11/23/17 21:57 Dose: 25 mg Ranitidine HCl (Zantac -) 150 mg PO DAILY [facility] Last Admin: 11/24/17 10:30 Dose: 150 mg Roflumilast (Daliresp -) 500 mcg NGT DAILY [facility] Last Admin: 11/24/17 14:17 Dose: 500 mcg Saliva Substitute (Mouthkote Solution -) 1 applic MM DAILY [facility] Last Admin: 11/24/17 14:17 Dose: 1 applic - Objective Vital Signs: Vital Signs Temperature 98.0 F 11/24/17 10:00 Pulse Rate 122 H 11/24/17 16:00 Respiratory Rate 35 H 11/24/17 16:00 Blood Pressure 129/73 11/24/17 16:00 O2 Sat by Pulse Oximetry (%) 93 L 11/24/17 14:30 Constitutional: Yes: Calm Eyes: Yes: Conjunctiva Clear Cardiovascular: Yes: Tachycardia, S1, S2 Gastrointestinal: Yes: Other (peg) Genitourinary: Yes: Incontinence Musculoskeletal: Yes: Muscle Weakness Edema: No Neurological: Yes: Oriented Labs: CBC, BMP 11/24/17 05:23 11/24/17 05:23 INR, PTT INR 1.02 (0.82-1.09) 11/09/17 05:50 - ....Imaging Chest X-ray: Report Reviewed Problem List - Problems (1) Hypernatremia Code(s): E87.0 - HYPEROSMOLALITY AND HYPERNATREMIA (2) MIRLANDE (acute kidney injury) Code(s): N17.9 - ACUTE KIDNEY FAILURE, UNSPECIFIED (3) Acute respiratory failure with hypoxia Code(s): J96.01 - ACUTE RESPIRATORY FAILURE WITH HYPOXIA (4) Diabetes Code(s): E11.9 - TYPE 2 DIABETES MELLITUS WITHOUT COMPLICATIONS (5) Failure to thrive Code(s): JTL3340 - Assessment/Plan Current Medications Generic Name Dose Route Start Last Admin Trade Name Freq PRN Reason Stop Dose Admin Acetaminophen 650 mg 11/22/17 23:20 Tylenol - PO Q6H PRN FEVER Acetaminophen 1,000 mg 11/22/17 23:20 Ofirmev Injection - IVPB Q6H PRN FEVER Albuterol/Ipratropium 1 amp 11/23/17 08:00 11/24/17 16:50 Duoneb - NEB 1 amp RQID [facility] Administration Alprazolam 0.5 mg 11/23/17 11:38 11/24/17 10:30 Xanax - PO 0.5 mg Q8H PRN Administration ANXIETY Amino Acids 30 ml 11/23/17 08:00 11/24/17 10:31 Prosource No Carb Liquid Pkt PO 30 ml BID@0800,1730 [facility] Administration Apixaban 5 mg 11/23/17 10:00 11/24/17 14:17 Eliquis - PO 5 mg BID [facility] Administration Artificial Tears 1 applic 11/23/17 22:00 11/23/17 21:54 Artificial Tears Ointment - OU 1 applic HS [facility] Administration Chlorhexidine Gluconate 1 applic 11/22/17 22:00 11/23/17 21:54 Hibiclens For Decolonization - TP 1 applic HS [facility] Administration Ferrous Sulfate 300 mg 11/23/17 10:00 11/24/17 10:32 Feosol GT 300 mg DAILY [facility] Administration Insulin Aspart 1 vial 11/23/17 07:00 11/24/17 14:17 Novolog Vial Sliding Scale - SQ 4 units ACHS [facility] Administration Protocol Insulin Detemir 13 units 11/23/17 07:00 11/24/17 05:59 Levemir Vial SQ 13 units BID@0700,2200 [facility] Administration Lactobacillus Acidophilus 1 tab 11/23/17 10:00 11/24/17 10:30 Bacid - PEG 1 tab DAILY [facility] Administration Metoprolol Tartrate 5 mg 11/22/17 23:20 Lopressor Injection - IVPUSH Q4H PRN HYPERTENSION Mupirocin 1 applic 11/22/17 22:00 11/24/17 10:31 Bactroban Ointment (For Decolonization) - NS 11/27/17 21:59 1 applic BID [facility] Administration Pantoprazole Sodium 40 mg 11/23/17 10:00 11/24/17 10:32 Protonix Iv IVPUSH 40 mg DAILY [facility] Administration Prednisone 40 mg 11/23/17 10:00 11/24/17 10:30 Deltasone - PO 40 mg DAILY [facility] Administration Quetiapine Fumarate 25 mg 11/23/17 22:00 11/23/17 21:57 Seroquel - PO 25 mg HS [facility] Administration Ranitidine HCl 150 mg 11/23/17 10:00 11/24/17 10:30 Zantac - PO 150 mg DAILY [facility] Administration Roflumilast 500 mcg 11/23/17 10:00 11/24/17 14:17 Daliresp - NGT 500 mcg DAILY [facility] Administration Saliva Substitute 1 applic 11/23/17 10:00 11/24/17 14:17 Mouthkote Solution - MM 1 applic DAILY [facility] Administration Impression 1. MIRLANDE 2. hypernatremia 3. chronic resp failure s/p trache 4. s/p trache 5. s/p peg 6. sepsis 7. interstitial lung disease 8. chf diastolic 9. DM 10. lactic acidosis 11. PNA Plan - cont free water with feeds - repeat labs in am - will follow - repeat cxr - avoid fluids for now - cxr reviewed - monitor pulse ox - vent support Dr Gan
[2017-11-24] MEDS: MINERAL OIL/PETROLATUM,WHITE 3.5 GM TUBE OU SCH (22:42)
[2017-11-24] MEDS: CHLORHEXIDINE GLUCONATE 4% CLEANSER FOR DECOLONIZATION TP SCH (22:42)
[2017-11-24] MEDS: QUEtiapine FUMARATE 25 MG TABLET (FP) PO SCH (22:43)
[2017-11-25] MEDS: BANATROL PLUS POWDER PACKET PEG SCH ×3 (06:00→22:23)
[2017-11-25 06:29] LABS: HEMATOCRIT 27.7 % (35.4-49); HEMOGLOBIN 8.6 GM/dL (11.7-16.9); MCH 31.8 pg (25.7-33.7); MCHC 31.1 g/dl (32.0-35.9); MEAN CELL VOLUME 102.3 fl (80-96); MEAN PLT VOLUME 11.7 fl (7.5-11.1); PLATELET COUNT 167 K/MM3 (134-434); RBC 2.71 M/mm3 (4.00-5.60); RDW 17.3 % (11.9-15.9); WHITE BLOOD COUNT 12.5 K/mm3 (4.0-10.0)
[2017-11-25] MEDS: INSULIN DETEMIR 100 UNITS/ML MDV SQ SCH ×2 (07:02→22:25)
[2017-11-25] MEDS: INSULIN SLIDING SCALE (NOVOLOG) 1 VIAL SQ SCH ×4 (07:02→22:33)
[2017-11-25 07:04] LABS: CHLORIDE 101 mmol/L (98-107); POTASSIUM 4.6 mmol/L (3.5-5.1); SODIUM 146 mmol/L (136-145)
[2017-11-25 07:20] LABS: ALBUMIN 2.1 g/dl (3.4-5.0); ALK PHOS 124 U/L (45-117); ANION GAP 3 (8-16); BILIRUBIN,TOTAL 0.6 mg/dL (0.2-1.0); BLOOD UREA NITROGEN 40 mg/dL (7-18); CALCIUM 8.2 mg/dL (8.5-10.1); CO2 42 mmol/L (21-32); CREATININE 0.8 mg/dL (0.7-1.3); GLUCOSE,RANDOM 266 mg/dL (74-106); MAGNESIUM 2.2 mg/dL (1.8-2.4); PHOSPHOROUS 2.6 mg/dL (2.5-4.9); SGOT/AST 10 U/L (15-37); SGPT/ALT 16 U/L (12-78); TOT PROT 7.2 g/dl (6.4-8.2)
[2017-11-25] MEDS: ALBUTEROL SO4 2.5/IPRATROPIUM 0.5 INH SOL 3 ML VIAL.NEB. NEB SCH ×4 (07:40→21:56)
--- NOTE | 2017-11-25 08:03 | PN ---
Progress Note (short form) - Note Progress Note: no complaints. denies Cp, SOB, fever, chills, N/V/C/D or cough Current Medications Generic Name Dose Route Start Last Admin Trade Name Freq PRN Reason Stop Dose Admin Acetaminophen 650 mg 11/22/17 23:20 Tylenol - PO Q6H PRN FEVER Acetaminophen 1,000 mg 11/22/17 23:20 Ofirmev Injection - IVPB Q6H PRN FEVER Albuterol/Ipratropium 1 amp 11/23/17 08:00 11/24/17 20:30 Duoneb - NEB 1 amp RQID [facility] Administration Alprazolam 0.5 mg 11/23/17 11:38 11/24/17 10:30 Xanax - PO 0.5 mg Q8H PRN Administration ANXIETY Amino Acids 30 ml 11/23/17 08:00 11/24/17 18:34 Prosource No Carb Liquid Pkt PO 30 ml BID@0800,1730 [facility] Administration Apixaban 5 mg 11/23/17 10:00 11/24/17 22:41 Eliquis - PO 5 mg BID [facility] Administration Artificial Tears 1 applic 11/23/17 22:00 11/24/17 22:42 Artificial Tears Ointment - OU 1 applic HS [facility] Administration Chlorhexidine Gluconate 1 applic 11/22/17 22:00 11/24/17 22:42 Hibiclens For Decolonization - TP 1 applic HS [facility] Administration Ferrous Sulfate 300 mg 11/23/17 10:00 11/24/17 10:32 Feosol GT 300 mg DAILY [facility] Administration Insulin Aspart 1 vial 11/23/17 07:00 11/25/17 07:02 Novolog Vial Sliding Scale - SQ 4 units ACHS [facility] Administration Protocol Insulin Detemir 13 units 11/23/17 07:00 11/25/17 07:02 Levemir Vial SQ 13 units BID@0700,2200 [facility] Administration Lactobacillus Acidophilus 1 tab 11/23/17 10:00 11/24/17 10:30 Bacid - PEG 1 tab DAILY [facility] Administration Metoprolol Tartrate 5 mg 11/22/17 23:20 Lopressor Injection - IVPUSH Q4H PRN HYPERTENSION Mupirocin 1 applic 11/22/17 22:00 11/24/17 22:42 Bactroban Ointment (For Decolonization) - NS 11/27/17 21:59 1 applic BID [facility] Administration Pantoprazole Sodium 40 mg 11/23/17 10:00 11/24/17 10:32 Protonix Iv IVPUSH 40 mg DAILY [facility] Administration Prednisone 40 mg 11/23/17 10:00 11/24/17 10:30 Deltasone - PO 40 mg DAILY [facility] Administration Quetiapine Fumarate 25 mg 11/23/17 22:00 11/24/17 22:43 Seroquel - PO 25 mg HS [facility] Administration Ranitidine HCl 150 mg 11/23/17 10:00 11/24/17 10:30 Zantac - PO 150 mg DAILY [facility] Administration Roflumilast 500 mcg 11/23/17 10:00 11/24/17 14:17 Daliresp - NGT 500 mcg DAILY [facility] Administration Saliva Substitute 1 applic 11/23/17 10:00 11/24/17 14:17 Mouthkote Solution - MM 1 applic DAILY [facility] Administration Last Vital Signs Temp Pulse Resp BP Pulse Ox 97.2 F L 113 H 30 H 141/75 91 L 11/25/17 06:00 11/25/17 06:00 11/25/17 07:00 11/25/17 06:00 11/24/17 21:00 Intake & Output 11/22/17 11/23/17 11/24/17 11/25/17 23:59 23:59 23:59 23:59 Intake Total 3600 1470 1820 2100 Output Total 1000 Balance 3600 1470 1820 1100 Weight 95 lb 4.8 oz 95 lb 4 oz 96 lb 3.2 oz General alert, thin, cachectic CV S1 S2 tachycardic no murmur/rub/gallop Lungs coarse breath sounds diffusely Abdomen soft NT/ND +peg extremities no pedal edema CBCD WBC 12.5 K/mm3 (4.0-10.0) H 11/25/17 06:15 RBC 2.71 M/mm3 (4.00-5.60) L 11/25/17 06:15 Hgb 8.6 GM/dL (11.7-16.9) L 11/25/17 06:15 Hct 27.7 % (35.4-49) L 11/25/17 06:15 MCV 102.3 fl (80-96) H 11/25/17 06:15 MCHC 31.1 g/dl (32.0-35.9) L 11/25/17 06:15 RDW 17.3 % (11.9-15.9) H 11/25/17 06:15 Plt Count 167 K/MM3 (134-434) 11/25/17 06:15 MPV 11.7 fl (7.5-11.1) H 11/25/17 06:15 CMP Sodium 146 mmol/L (136-145) H 11/25/17 06:15 Potassium 4.6 mmol/L (3.5-5.1) 11/25/17 06:15 Chloride 101 mmol/L (98-107) 11/25/17 06:15 Carbon Dioxide 42 mmol/L (21-32) H 11/25/17 06:15 Anion Gap 3 (8-16) L 11/25/17 06:15 BUN 40 mg/dL (7-18) H 11/25/17 06:15 Creatinine 0.8 mg/dL (0.7-1.3) 11/25/17 06:15 Creat Clearance w eGFR > 60 (>60) 11/25/17 06:15 Calcium 8.2 mg/dL (8.5-10.1) L 11/25/17 06:15 Total Bilirubin 0.6 mg/dL (0.2-1.0) D 11/25/17 06:15 AST 10 U/L (15-37) L 11/25/17 06:15 ALT 16 U/L (12-78) 11/25/17 06:15 Alkaline Phosphatase 124 U/L (45-117) H 11/25/17 06:15 Total Protein 7.2 g/dl (6.4-8.2) 11/25/17 06:15 Albumin 2.1 g/dl (3.4-5.0) L 11/25/17 06:15 ASSESSMENT AND PLAN: 62 yo M active smoker, pMHx of NIDDM, PUD, BPH admitted with acute hypoxic respiratory failure, and extensive RLE DVT 1. Acute hypoxic respiratory failure, suspect from ?ILD with pneumonitis- s/p intubation 11/03 with failed weaning and now s/p trach 11/07. trach exchanged 11/19. CT showed patent trachea. however have been unable to titrate pt down further as unable to tolerate. requiring high oxygen requirements. pt may benefit from specialized facility as we are unable to offer alternative management. FiO2 70%. goal SpO2 >88%. on pred 40mg 2. RLE DVT- s/p IVC filter 10/20, thrombectmy 10/24. on eliquis 5mg BID. monitor for bleeding 3. Sepsis due to suspected aspiration PNA-some leukocytosis likely stress induced. afebrile. do not think infection at this time. completed treatment for PNA twice this hospital stay. 4. Acute diastolic heart failure- s/p intermittent lasix IV. clinically euvolemic. will hold for now 5. Iron deficiency anemia and anemia of chronic disease- possible due to frequent blood draws and comorbidities. s/p 1 unit PRBC this hospital stay. cont iron supplementation 6. Hypernatremia- stable. cont free water flushes 7. antibiotic assoc Diarrhea-likely due to prolonged abx use. now resolved. on bacid and banatol. 8. continuous nicotine dependence- nicotine patch 9. cachexia- severe malnutrition evident by body habitus. lost 40+lbs this hospital stay. s/p PEG 11/09. tolerating TF 10. DM- improved. levemir 13 units BID. cont to titrate as needed. 11. Agitation- intermittent periods of agitation. off 2 point restraints >24H. on seroquel HS. 12. PPX- ppi/eliquis 13. Spoke with [facility] for transfer to tertiary care center. discussed in detail pt's case and they declined at this time stating they are unable to offer alternative treatment options at this time. poor overall prognosis. requested palliative care to come back and speak with family. The care of this patient involved high complexity decision making to prevent further life threatening deterioration of the patient's condition and/or to evaluate & treat vital organ system(s) failure or risk of failure. 36 minutes Visit type - Emergency Visit Emergency Visit: Yes ED Registration Date: 10/17/17 Care time: The patient presented to the Emergency Department on the above date and was hospitalized for further evaluation of their emergent condition. - New Patient This patient is new to me today: No - Critical Care Critical Care patient: Yes Total Critical Care Time (in minutes): 36 Critical Care Statement: The care of this patient involved high complexity decision making to prevent further life threatening deterioration of the patient 's condition and/or to evaluate & treat vital organ system(s) failure or risk of failure. - Discharge Referral Referred to [facility] No
[2017-11-25] MEDS ORDERED: PT OWN MED DRAWER 7, Y5N ONE (09:17)
[2017-11-25] MEDS: predniSONE 20 MG TABLET (UD) PO SCH (09:20)
[2017-11-25] MEDS: LACTOBACILLUS ACIDOPHILUS 1 EACH TAB (FP) PEG SCH (09:20)
[2017-11-25] MEDS: RANITIDINE HCL 150 MG TABLET (FP) PO SCH (09:20)
[2017-11-25] MEDS: ALPRAZolam 0.25 MG TABLET PO PRN (09:20)
[2017-11-25] MEDS: ACETAMINOPHEN 1000 MG/100 ML VIAL (NON FORMULARY) IVPB PRN (09:21)
[2017-11-25] MEDS: MUPIROCIN 2% TOPICAL OINTMENT FOR DECOLONIZATION NS SCH ×2 (09:21→22:23)
[2017-11-25] MEDS: AMINO ACIDS/PROTEIN HYDROLYS 30 ML LIQUID.PKT PO SCH ×2 (09:21→17:50)
[2017-11-25] MEDS: PANTOPRAZOLE SODIUM 40 MG VIAL IVPUSH SCH (09:22)
[2017-11-25] MEDS: LYTES/YERBA SANTA 240 ML BOTTLE MM SCH (09:22)
[2017-11-25] MEDS: APIXABAN 5 MG TABLET PO SCH ×2 (09:22→22:23)
[2017-11-25] MEDS: FERROUS SO4 300 MG/5 ML ORAL SOLN UNIT DOSE CUPS GT SCH (09:22)
--- NOTE | 2017-11-25 10:07 | PN ---
Progress Note (short form) - Note Progress Note: SUBJECTIVE: Patient seen and examined in the ICU. 24HR: -[facility] declined tx, no additional disease modifying therapy available OBJECTIVE: Vital Signs Temp 97.2 F L 11/25/17 06:00 Pulse 108 H 11/25/17 08:36 Resp 32 H 11/25/17 08:36 BP 134/64 11/25/17 08:00 Pulse Ox 99 11/25/17 08:36 Intake & Output 11/24/17 11/24/17 11/25/17 11:59 23:59 11:59 Intake Total 690 1130 2100 Output Total 1000 Balance 690 1130 1100 Weight 43.205 kg 43.636 kg Intake: Tube Feeding 350 600 600 Tube Irrigant 217 783 3931 Output: Urine 1000 External Catheter 1000 Other: Voiding Method Diaper Diaper # Unmeasured Voids Void 2 3 Bowel Movement Yes Yes: liquid brown Yes: liquid brown # Bowel Movements 2 1 2 Weight Measurement Method [facility] Gen: vented, awake, alert, cachextic Heart: RRR Lung: scattered rhonchi, no active wheeze noted , tachypneic but not dyspniec Abd: soft, nontender Ext: no edema Neuro: awake, denies pain, non focal exam. Active Medications Acetaminophen (Tylenol -) 650 mg PO Q6H PRN PRN Reason: FEVER Acetaminophen (Ofirmev Injection -) 1,000 mg IVPB Q6H PRN PRN Reason: FEVER Last Admin: 11/25/17 09:21 Dose: 1,000 mg Albuterol/Ipratropium (Duoneb -) 1 amp NEB RQID [facility] Last Admin: 11/25/17 07:40 Dose: 1 amp Alprazolam (Xanax -) 0.5 mg PO Q8H PRN PRN Reason: ANXIETY Last Admin: 11/25/17 09:20 Dose: 0.5 mg Amino Acids (Prosource No Carb Liquid Pkt) 30 ml PO BID@0800,1730 [facility] Last Admin: 11/25/17 09:21 Dose: 30 ml Apixaban (Eliquis -) 5 mg PO BID [facility] Last Admin: 11/25/17 09:22 Dose: 5 mg Artificial Tears (Artificial Tears Ointment -) 1 applic OU HS [facility] Last Admin: 11/24/17 22:42 Dose: 1 applic Chlorhexidine Gluconate (Hibiclens For Decolonization -) 1 applic TP HS [facility] Last Admin: 11/24/17 22:42 Dose: 1 applic Ferrous Sulfate (Feosol) 300 mg GT DAILY [facility] Last Admin: 11/25/17 09:22 Dose: 300 mg Insulin Aspart (Novolog Vial Sliding Scale -) 1 vial SQ ACHS [facility] PRN Reason: Protocol Last Admin: 11/25/17 07:02 Dose: 4 units Insulin Detemir (Levemir Vial) 13 units SQ BID@0700,2200 [facility] Last Admin: 11/25/17 07:02 Dose: 13 units Lactobacillus Acidophilus (Bacid -) 1 tab PEG DAILY [facility] Last Admin: 11/25/17 09:20 Dose: 1 tab Metoprolol Tartrate (Lopressor Injection -) 5 mg IVPUSH Q4H PRN PRN Reason: HYPERTENSION Mupirocin (Bactroban Ointment (For Decolonization) -) 1 applic NS BID [facility] Stop: 11/27/17 21:59 Last Admin: 11/25/17 09:21 Dose: 1 applic Pantoprazole Sodium (Protonix Iv) 40 mg IVPUSH DAILY [facility] Last Admin: 11/25/17 09:22 Dose: 40 mg Prednisone (Deltasone -) 40 mg PO DAILY [facility] Last Admin: 11/25/17 09:20 Dose: 40 mg Quetiapine Fumarate (Seroquel -) 25 mg PO [facility] Last Admin: 11/24/17 22:43 Dose: 25 mg Ranitidine HCl (Zantac -) 150 mg PO DAILY [facility] Last Admin: 11/25/17 09:20 Dose: 150 mg Roflumilast (Daliresp -) 500 mcg NGT DAILY [facility] Last Admin: 11/24/17 14:17 Dose: 500 mcg Saliva Substitute (Mouthkote Solution -) 1 applic MM DAILY [facility] Last Admin: 11/25/17 09:22 Dose: 1 applic Problem List - Problems (1) Acute respiratory failure with hypoxia Code(s): J96.01 - ACUTE RESPIRATORY FAILURE WITH HYPOXIA (2) Pneumonia Code(s): J18.9 - PNEUMONIA, UNSPECIFIED ORGANISM (3) Diabetes Code(s): E11.9 - TYPE 2 DIABETES MELLITUS WITHOUT COMPLICATIONS ASSESSMENT AND PLAN: Acute Hypoxic Respiratory Failure s/p Tracheostomy Pneumonia Sepsis Interstitial Lung Disease Acute Diastolic Heart Failure improved Acute Kidney Injury Lactic Acidosis resolved DM RLE DVT - monitor urine output, creatinine - cont prednisone - Anxiolytics, seroquel qHS - enteral feeds - continue anticoagulation - taper FiO2 to keep SpO2 >90% - given high Fio2 requirement not candidate for vent weaning - DVT/GI prophylaxis - Ok for Vent floor , if unable to dispo to detention care facility need to discuss calvalry/hospice. Darwin Jamil ACNP [id number] [id number]
[2017-11-25] MEDS: ROFLUMILAST 500 MCG TABLET NGT SCH (13:50)
--- NOTE | 2017-11-25 20:15 | PN ---
Progress Note (short form) - Note Progress Note: covering dr verde resp failure roxane Current Medications Acetaminophen (Tylenol -) 650 mg PO Q6H PRN PRN Reason: FEVER Acetaminophen (Ofirmev Injection -) 1,000 mg IVPB Q6H PRN PRN Reason: FEVER Last Admin: 11/25/17 09:21 Dose: 1,000 mg Albuterol/Ipratropium (Duoneb -) 1 amp NEB RQID [facility] Last Admin: 11/25/17 15:16 Dose: 1 amp Alprazolam (Xanax -) 0.5 mg PO Q8H PRN PRN Reason: ANXIETY Last Admin: 11/25/17 09:20 Dose: 0.5 mg Amino Acids (Prosource No Carb Liquid Pkt) 30 ml PO BID@0800,1730 [facility] Last Admin: 11/25/17 17:50 Dose: 30 ml Apixaban (Eliquis -) 5 mg PO BID [facility] Last Admin: 11/25/17 09:22 Dose: 5 mg Artificial Tears (Artificial Tears Ointment -) 1 applic OU HS [facility] Last Admin: 11/24/17 22:42 Dose: 1 applic Chlorhexidine Gluconate (Hibiclens For Decolonization -) 1 applic TP HS [facility] Last Admin: 11/24/17 22:42 Dose: 1 applic Ferrous Sulfate (Feosol) 300 mg GT DAILY [facility] Last Admin: 11/25/17 09:22 Dose: 300 mg Insulin Aspart (Novolog Vial Sliding Scale -) 1 vial SQ ACHS [facility] PRN Reason: Protocol Last Admin: 11/25/17 17:50 Dose: 4 units Insulin Detemir (Levemir Vial) 13 units SQ BID@0700,2200 [facility] Last Admin: 11/25/17 07:02 Dose: 13 units Lactobacillus Acidophilus (Bacid -) 1 tab PEG DAILY [facility] Last Admin: 11/25/17 09:20 Dose: 1 tab Metoprolol Tartrate (Lopressor Injection -) 5 mg IVPUSH Q4H PRN PRN Reason: HYPERTENSION Mupirocin (Bactroban Ointment (For Decolonization) -) 1 applic NS BID [facility] Stop: 11/27/17 21:59 Last Admin: 11/25/17 09:21 Dose: 1 applic Pantoprazole Sodium (Protonix Iv) 40 mg IVPUSH DAILY [facility] Last Admin: 11/25/17 09:22 Dose: 40 mg Prednisone (Deltasone -) 40 mg PO DAILY [facility] Last Admin: 11/25/17 09:20 Dose: 40 mg Quetiapine Fumarate (Seroquel -) 25 mg PO HS [facility] Last Admin: 11/24/17 22:43 Dose: 25 mg Ranitidine HCl (Zantac -) 150 mg PO DAILY [facility] Last Admin: 11/25/17 09:20 Dose: 150 mg Roflumilast (Daliresp -) 500 mcg NGT DAILY [facility] Last Admin: 11/25/17 13:50 Dose: 500 mcg Saliva Substitute (Mouthkote Solution -) 1 applic MM DAILY [facility] Last Admin: 11/25/17 09:22 Dose: 1 applic Last Vital Signs Temp Pulse Resp BP Pulse Ox 98.7 F 108 H 26 H 112/70 99 11/25/17 18:00 11/25/17 18:00 11/25/17 18:55 11/25/17 18:00 11/25/17 10:23 on vent req suctioning Lungs good air exchange Heart reg Abd soft nontender Ext no edema CBC, BMP 11/25/17 06:15 11/25/17 06:15 IMP stable hemodynamically hypernatremia hydrate more if serum sodium persists high Plan- continue same rx
[2017-11-25] MEDS: MINERAL OIL/PETROLATUM,WHITE 3.5 GM TUBE OU SCH (22:22)
[2017-11-25] MEDS: CHLORHEXIDINE GLUCONATE 4% CLEANSER FOR DECOLONIZATION TP SCH (22:23)
[2017-11-25] MEDS: QUEtiapine FUMARATE 25 MG TABLET (FP) PO SCH (22:25)
--- NOTE | 2017-11-26 05:54 | PN ---
Physical Exam: SUBJECTIVE: Patient seen and examined by me this AM - No major events. [facility] rejected for transfer as no dz modifying tz available at the time. Pt still with airleak around stoma, satting well on 70% FIO2. Copious secretions noted by nursing. W/ [place] cath, tolerating feeds. vent settings 10/500/70%/8. Afebrile, vitals stable. - Pt denies f/c, SOB, cough, CP, ab pain, N/V, peripheral numbness/weakness. Still w/ diarrhea. No events on tele. OBJECTIVE: Vital Signs Intake & Output 11/23/17 11/24/17 11/25/17 11/26/17 23:59 23:59 23:59 23:59 Intake Total 1470 1820 2550 Output Total 2100 Balance 1470 1820 450 Weight 43.227 kg 43.205 kg 43.636 kg Period Temp Pulse Resp BP Sys/Sutton Pulse Ox Last 24 Hr 97.2 F-98.8 F 96-115 10-36 112-141/54-75 95-99 GENERAL: Cachectic man, NAD, laying in bed. Vented w/ trach. In good spirits. HEAD: Normal with no signs of trauma. Bitemporal wasting EYES: Sclera anicteric, conjunctiva clear. No ptosis. ENT: Ears normal, nares patent, oropharynx with white, thick palatal exudate. NECK: trach tube in place, air leak noted during expiration, no erythema or drainage. Trachea midline, supple. No JVD noted. LUNGS: Mechanical breath sounds. BL Fine crackles diffusely. No wheezes, congestion, rhonchi appreciated. no accessory muscle use HEART: 2/6 systolic ejection murmur at LUSB. Regular rate and rhythm, S1, S2 without murmur, rub or gallop. ABDOMEN: PEG tube in place, no erythema, edema or purulence noted. Scaphoid abdomen, hypoactive bowel sounds, no guarding, no rebound, no hepatosplenomegaly , no masses. EXTREMITIES: No edema in LEs. 2+ pulses, warm, well-perfused NEUROLOGICAL: CN 2-12 intact. Sensation preserved in all extremities. 5/5 strength grossly PSYCH: Normal mood, normal affect. SKIN: Warm, dry, normal turgor, no rashes or lesions noted Laboratory Results - last 24 hr CBC, BMP 11/26/17 05:55 11/26/17 05:55 11/25/17 06:15 11/25/17 06:15 11/22/17 11/25/17 11/25/17 12:40 06:15 06:15 WBC 12.5 H RBC 2.71 L Hgb 8.6 L Hct 27.7 L MCV 102.3 H MCH 31.8 MCHC 31.1 L RDW 17.3 H Plt Count 167 MPV 11.7 H Sodium 146 H Potassium 4.6 Chloride 101 Carbon Dioxide 42 H Anion Gap 3 L BUN 40 H Creatinine 0.8 Creat Clearance w eGFR > 60 POC Glucometer Random Glucose 266 H Calcium 8.2 L Phosphorus 2.6 Magnesium 2.2 Total Bilirubin 0.6 D AST 10 L ALT 16 Alkaline Phosphatase 124 H Total Protein 7.2 Albumin 2.1 L Blood Type O POSITIVE Antibody Screen Negative Crossmatch See Detail 11/25/17 11/25/17 11/25/17 12:30 17:52 22:32 WBC RBC Hgb Hct MCV MCH MCHC RDW Plt Count MPV Sodium Potassium Chloride Carbon Dioxide Anion Gap BUN Creatinine Creat Clearance w eGFR POC Glucometer 309.34063 259.98753 149.81344 Random Glucose Calcium Phosphorus Magnesium Total Bilirubin AST ALT Alkaline Phosphatase Total Protein Albumin Blood Type Antibody Screen Crossmatch Active Medications Generic Name Dose Route Start Last Admin Trade Name Freq PRN Reason Stop Dose Admin Acetaminophen 650 mg 11/22/17 23:20 Tylenol - PO Q6H PRN FEVER Acetaminophen 1,000 mg 11/22/17 23:20 11/25/17 09:21 Ofirmev Injection - IVPB 1,000 mg Q6H PRN Administration FEVER Albuterol/Ipratropium 1 amp 11/23/17 08:00 11/25/17 21:56 Duoneb - NEB 1 amp RQID SONAL Administration Alprazolam 0.5 mg 11/23/17 11:38 11/25/17 09:20 Xanax - PO 0.5 mg Q8H PRN Administration ANXIETY Amino Acids 30 ml 11/23/17 08:00 11/25/17 17:50 Prosource No Carb Liquid Pkt PO 30 ml BID@0800,1730 SON[facility] Administration Apixaban 5 mg 11/23/17 10:00 11/25/17 22:23 Eliquis - PO 5 mg BID [facility]ON[facility] Administration Artificial Tears 1 applic 11/23/17 22:00 11/25/17 22:22 Artificial Tears Ointment - OU 1 applic HS [facility] Administration Chlorhexidine Gluconate 1 applic 11/22/17 22:00 11/25/17 22:23 Hibiclens For Decolonization - TP 1 applic HS [facility] Administration Ferrous Sulfate 300 mg 11/23/17 10:00 11/25/17 09:22 Feosol GT 300 mg DAILY [facility] Administration Insulin Aspart 1 vial 11/23/17 07:00 11/25/17 22:33 Novolog Vial Sliding Scale - SQ Not Given ACHS [facility] Protocol Insulin Detemir 13 units 11/23/17 07:00 11/25/17 22:25 Levemir Vial SQ 13 units BID@0700,2200 [facility] Administration Lactobacillus Acidophilus 1 tab 11/23/17 10:00 11/25/17 09:20 Bacid - PEG 1 tab DAILY [facility] Administration Metoprolol Tartrate 5 mg 11/22/17 23:20 Lopressor Injection - IVPUSH Q4H PRN HYPERTENSION Mupirocin 1 applic 11/22/17 22:00 11/25/17 22:23 Bactroban Ointment (For Decolonization) - NS 11/27/17 21:59 1 applic BID [facility] Administration Pantoprazole Sodium 40 mg 11/23/17 10:00 11/25/17 09:22 Protonix Iv IVPUSH 40 mg DAILY [facility] Administration Prednisone 40 mg 11/23/17 10:00 11/25/17 09:20 Deltasone - PO 40 mg DAILY [facility] Administration Quetiapine Fumarate 25 mg 11/23/17 22:00 11/25/17 22:25 Seroquel - PO 25 mg HS [facility] Administration Ranitidine HCl 150 mg 11/23/17 10:00 11/25/17 09:20 Zantac - PO 150 mg DAILY [facility] Administration Roflumilast 500 mcg 11/23/17 10:00 11/25/17 13:50 Daliresp - NGT 500 mcg DAILY [facility] Administration Saliva Substitute 1 applic 11/23/17 10:00 11/25/17 09:22 Mouthkote Solution - MM 1 applic DAILY [facility] Administration Microbiology 11/18/17 21:30 Stool Clostridium difficile Antigen ([facility]) - Final 11/18/17 21:30 Stool Clostridium difficile Toxin Assay - Final 11/13/17 17:30 Blood - Peripheral Venous Blood Culture - Final NO GROWTH AFTER 5 DAYS INCUBATION 11/13/17 17:10 Blood - Peripheral Venous Blood Culture - Final NO GROWTH AFTER 5 DAYS INCUBATION 11/14/17 14:30 Sputum - Endotrachea Suction/Ventilator Gram Stain - Final 11/14/17 14:30 Sputum - Endotrachea Suction/Ventilator Sputum Culture - Final Klebsiella Pneumoniae 11/14/17 22:00 Urine - Urine Clean Catch Urine Culture - Final Yeast Like Organism 11/15/17 11:00 Nasopharyngeal Swab Influenza Types A,B Antigen ([facility]) - Final 11/15/17 11:00 Nasopharyngeal Swab - Final 10/21/17 06:00 Serum Cryptococcal Antigen - Final 10/19/17 19:30 Sputum - Expectorated Gram Stain - Final 10/19/17 19:30 Sputum - Expectorated Sputum Culture - Final NORMAL RESPIRATORY TOYIN 10/17/17 10:10 Blood - Peripheral Venous Blood Culture - Final NO GROWTH AFTER 5 DAYS INCUBATION 10/17/17 10:10 Blood - Peripheral Venous Blood Culture - Final NO GROWTH AFTER 5 DAYS INCUBATION 10/17/17 13:57 Urine - Urine Clean Catch Urine Culture - Final NO GROWTH OBTAINED 10/17/17 13:57 Urine For Antigen Detection Legionella Antigen - Final 10/17/17 13:57 Urine For Antigen Detection Streptococcus pneumoniae Antigen (M - Final 10/17/17 10:25 Nasopharyngeal Swab Influenza Types A,B Antigen ([facility]) - Final 10/17/17 10:25 Nasopharyngeal Swab - Final Recent imaging: CXR 10/21/17 - Since 10/30/2017, the ARDS pattern has diminished minimally. Follow- up recommended. CT Abdomen 10/31 - The gallbladder demonstrates no definite CT pathology. There is nonspecific minimal to mild intrahepatic biliary tract dilatation. Clinical/ laboratory correlation is suggested as well as with follow-up CT. Dilatation of the main pancreatic duct as noted above. Pancreatic ductal dilatation was also noted on a 2013 ultrasound exam. Several small pancreatic head calcifications are seen suggestive of chronic calcific pancreatitis. No gross mass lesion is identified. Correlate with MRI/MRCP when the patient's clinical condition permits. No CT evidence of acute pancreatitis. Mild acute pancreatitis is frequently not demonstrable on CT or MRI. The partially imaged lower chest demonstrates prominent bilateral interstitial thickening with relative peripheral sparing - ? Noncardiogenic edema, infectious versus noninfectious pneumonitis, hemorrhage. Correlate clinically. This finding may be somewhat increased in comparison to a chest CT exam of 10/20/2017. No pleural effusion is seen. Bibasilar bronchiectasis. There is partial imaging of nonspecific mediastinal lymphadenopathy (as described on chest CT). Prominent atherosclerotic vascular calcifications. Mild to moderate L1 and mild L5 vertebral body compression fractures are noted which appear chronic. No bony retropulsion is seen. The visualized osseous structures appear to be diffusely demineralized. Clinical/laboratory correlation is suggested. Additional evaluation utilizing bone densitometry/DEXA scan may be considered. CXR 11/01 - Since a prior study of 10/31/2017, extensive opacification is identified throughout the lung james with little significant change. This is consistent with ARDS. No pleural effusions have developed. CXR 11/02 - No significant change from prior cxr. Still with BL reticulonodular diffuse opacification. CXR 11/05 - No significant change. BL reticulonodular pattern. CXR 11/06 - No change overall CXR 11/07 - Trach in place. Diffuse BL interstitial and possible alveolar changes. No pneumo or pleural effusions. ekg 11/08 - NSR, Rate 86, QTC 409, LVH, NANCY, no ST/Twave changes CXR 11/08 - No significant interval changes, BL parenchymal reticulonodular infiltrates, ETT tube, NG tube in place CXR 11/09 - no change from prior CXR 11/10 - No change CXR 11/13 - Good placement of ETT tube CXR 11/14 - no significant change Renal U/S 11/14 - Normal kidneys BL. CXR 11/15 - No change CXR 11/16 - R lower lobe opacity with air bronchograms; clinically correlate CXR 11/17 - No change from prior XR CT non-con head 11/19 - No acute bleed or mass effect per [facility]. Official read pending CT cervical spine 11/19 - No evidence of gross fracture. Official read pending CXR 11/20 - No significant change. Chronic ILD CXR 11/22 - New Trach in position. Diffuse reticulonodular opacities BL, per prior films. CT Chest 11/23 - IMPRESSION: 1. S/P tracheostomy with widely patent trachea. 2. Extensive COPD with large areas of acute consolidation within both lungs that have developed since 10/20/2017. 3. Moderate mediastinal lymphadenopathy. Clinical correlation and follow-up recommended. Please see above discussion. CXR 11/24 - IMPRESSION: Diffuse bilateral interstitial and airspace opacities are again seen that may be on the basis of chronic interstitial lung disease plus or minus pulmonary venous congestion or pneumonic infiltrates without gross interval change since the oldest available chest x-ray dated 10/17/2017. Correlate clinically. 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 #Acute hypoxic respiratory failure (possibly 2/2 ILD vs Pneumonitis)- s/p trach 11/07 after failed vent wean; trach exchanged 11/11, 11/19, 11/23 - pt satting high 90s on 70% FIO2; Still with poor TV returns, secondary to air leak around trach; Dr. Rosario aware; likely secondary to tracheomalacia - Attempt O2 taper again. Maintain sats >88%. - c/w Prednisone 40mg daily - c/w Roflumilast and Duonebs QID - PEG feeds at 50ml this AM; c/w 300ml water flushes every 4 hours - Seroquel 25mg PO qHS for agitation - todd helmss as pt - Denied for transfer to [place] for transplant w/u - Current vent setting 10/500/70%/8. Satting mid to high 90s overnight #Leukocytosis- WBC 12.5 -> 11.3, afebrile - trend fever, wbc curve - flu swab negative - If febrile, send cultures and start on empiric abx #hypernatremia, Na 143 today; Pre-renal; FeNa 0.3%; likely secondary to hypovolemia - Renal consulted, recs appreciated - free water flushes via PEG tube 300ml q4h - Daily BMP, trend Na #MIRLANDE - Cr 0.7 today, has resolved - Renal U/S nrml - Renal consulted, following - Trend Cr #agitation/anxiety - pt tends to sundown at night; multiple attempts to remove trach - todd mittens PRN - seroquel 25mg PO qHS - Xanax 0.5mg PRN #RLE DVT s/p IVC filter 10/20 and thrombectomy 10/24 -Eliquis 5mg BID #Acute on diastolic CHF - No evidence of volume overload - c/w hold lasix - No longer requires daily wts #DM (A1c 7.4 on admission) - BG 236 today - BGM - ISS ACHS - levemir increased from 13u to 16u BID #BPH - - flomax held #Diarrhea - still with intermittent diarrhea; on tube feeds - Monitor; C-diff studies negative #Nicotine dependence - c/w nicotine patch #PPX Eliquis 5mg BID Zantac 150mg daily #FEN: Free water flushes, 300ml q4h Daily BMP, trend Na Tube feeds Transfer to Vent floors Discussed with attending, Dr. Leroy Reeves, PGY1 Visit type - Emergency Visit Emergency Visit: Yes ED Registration Date: 10/17/17 Care time: The patient presented to the Emergency Department on the above date and was hospitalized for further evaluation of their emergent condition. - New Patient This patient is new to me today: No - Critical Care Critical Care patient: Yes Total Critical Care Time (in minutes): 35 Critical Care Statement: The care of this patient involved high complexity decision making to prevent further life threatening deterioration of the patient 's condition and/or to evaluate & treat vital organ system(s) failure or risk of failure.
[2017-11-26 06:11] LABS: BASO % 0.2 % (0-2.0); EOS % 0.3 % (0-4.5); HEMATOCRIT 27.3 % (35.4-49); HEMOGLOBIN 8.6 GM/dL (11.7-16.9); LYMPH % 10.2 % (8-40); MCHC 31.6 g/dl (32.0-35.9); MEAN CELL VOLUME 101.3 fl (80-96); MEAN PLT VOLUME 12.1 fl (7.5-11.1); MONO % 5.4 % (3.8-10.2); NEUT % 83.9 % (42.8-82.8); PLATELET COUNT 165 K/MM3 (134-434); RBC 2.69 M/mm3 (4.00-5.60); RDW 16.8 % (11.9-15.9); WHITE BLOOD COUNT 11.3 K/mm3 (4.0-10.0)
[2017-11-26] MEDS: BANATROL PLUS POWDER PACKET PEG SCH ×3 (06:30→21:07)
[2017-11-26] MEDS: INSULIN DETEMIR 100 UNITS/ML MDV SQ SCH ×2 (06:30→21:14)
[2017-11-26] MEDS: INSULIN SLIDING SCALE (NOVOLOG) 1 VIAL SQ SCH ×4 (06:31→21:14)
[2017-11-26 06:34] LABS: CHLORIDE 100 mmol/L (98-107); POTASSIUM 4.5 mmol/L (3.5-5.1); SODIUM 143 mmol/L (136-145)
[2017-11-26 06:40] LABS: ALK PHOS 126 U/L (45-117); ANION GAP 0 (8-16); BILIRUBIN,TOTAL 0.4 mg/dL (0.2-1.0); BLOOD UREA NITROGEN 38 mg/dL (7-18); CO2 43 mmol/L (21-32); CREATININE 0.7 mg/dL (0.7-1.3); GLUCOSE,RANDOM 236 mg/dL (74-106); MAGNESIUM 2.2 mg/dL (1.8-2.4); PHOSPHOROUS 2.3 mg/dL (2.5-4.9); SGOT/AST 13 U/L (15-37); SGPT/ALT 17 U/L (12-78); TOT PROT 7.3 g/dl (6.4-8.2)
[2017-11-26] MEDS: ALBUTEROL SO4 2.5/IPRATROPIUM 0.5 INH SOL 3 ML VIAL.NEB. NEB SCH ×4 (07:30→20:53)
--- NOTE | 2017-11-26 08:27 | PN ---
Teaching Attending Note Name of Resident: Dylon Reeves ATTENDING PHYSICIAN STATEMENT I saw and evaluated the patient. I reviewed the resident's note and discussed the case with the resident. I agree with the resident's findings and plan as documented. SUBJECTIVE:alert, denies CP or difficulty breathing OBJECTIVE: Last Vital Signs Temp Pulse Resp BP Pulse Ox 98.4 F 111 H 31 H 150/79 99 11/26/17 06:00 11/26/17 08:08 11/26/17 08:08 11/26/17 06:00 11/26/17 08:08 Intake & Output 11/23/17 11/24/17 11/25/17 11/26/17 23:59 23:59 23:59 23:59 Intake Total 1470 1820 2550 2100 Output Total 2100 800 Balance 1470 2968 840 8718 Weight 95 lb 4.8 oz 95 lb 4 oz 96 lb 3.2 oz 98 lb 3.2 oz General NAD, resting comfortable Lungs coarse breath sounds anteriorly ASSESSMENT AND PLAN: 62 yo M active smoker, pMHx of NIDDM, PUD, BPH admitted with acute hypoxic respiratory failure, and extensive RLE DVT 1. Acute hypoxic respiratory failure, suspect from ?ILD with pneumonitis- s/p intubation 11/03 with failed weaning and now s/p trach 11/07. trach exchanged 11/19. no gross signs of tracheomalacia. unable to titrate down FiO2. currently on SIMV. FiO2 70%. goal SpO2 >88%. on pred 40mg 2. RLE DVT- s/p IVC filter 10/20, thrombectmy 10/24. on eliquis 5mg BID. monitor for bleeding 3. Sepsis due to suspected aspiration PNA-some leukocytosis likely stress induced. afebrile. do not think infection at this time. completed treatment for PNA twice this hospital stay. 4. Acute diastolic heart failure- s/p intermittent lasix IV. clinically euvolemic. will hold for now 5. Iron deficiency anemia and anemia of chronic disease- possible due to frequent blood draws and comorbidities. s/p 1 unit PRBC this hospital stay. cont iron supplementation 6. Hypernatremia-resolved. d/c free water. decrease free water flushes 7. antibiotic assoc Diarrhea-likely due to prolonged abx use. now resolved. on bacid and banatol. 8. continuous nicotine dependence- nicotine patch 9. cachexia- severe malnutrition evident by body habitus. lost 40+lbs this hospital stay. s/p PEG 11/09. tolerating TF 10. DM- above goal. increase levemir to 16 units BID. cont to titrate as needed. 11. Agitation- intermittent periods of agitation. off 2 point restraints >24H. on seroquel HS. 12. PPX- ppi/eliquis 13. Poor overall prognosis. Unable to titrate down Fio2, not candidate for tertiary care center as no other management available at this time. julien not an option. SNF will only take with Fio2 <60%. if unable to wean pt further will need to consider palliative care and hospice. Palliative care consulted The care of this patient involved high complexity decision making to prevent further life threatening deterioration of the patient's condition and/or to evaluate & treat vital organ system(s) failure or risk of failure. 35 minutes
[2017-11-26] MEDS: AMINO ACIDS/PROTEIN HYDROLYS 30 ML LIQUID.PKT PO SCH ×2 (09:00→17:31)
[2017-11-26] MEDS: APIXABAN 5 MG TABLET PO SCH ×2 (09:00→21:06)
[2017-11-26] MEDS: ROFLUMILAST 500 MCG TABLET NGT SCH (09:00)
[2017-11-26] MEDS: RANITIDINE HCL 150 MG TABLET (FP) PO SCH (09:00)
[2017-11-26] MEDS: MUPIROCIN 2% TOPICAL OINTMENT FOR DECOLONIZATION NS SCH ×2 (09:00→21:06)
[2017-11-26] MEDS: PANTOPRAZOLE SODIUM 40 MG VIAL IVPUSH SCH (09:00)
[2017-11-26] MEDS: LYTES/YERBA SANTA 240 ML BOTTLE MM SCH (09:00)
[2017-11-26] MEDS: LACTOBACILLUS ACIDOPHILUS 1 EACH TAB (FP) PEG SCH (09:00)
[2017-11-26] MEDS: predniSONE 20 MG TABLET (UD) PO SCH (09:00)
[2017-11-26] MEDS ORDERED: PT OWN MED DRAWER 7, Y5N ONE (09:25)
[2017-11-26] MEDS: ALPRAZolam 0.25 MG TABLET PO PRN (12:00)
--- NOTE | 2017-11-26 15:23 | PN ---
Progress Note (short form) - Note Progress Note: PULM/CCM Pt seen & Examined in the ICU. Trached. On the Vent. Awaiting Transfer to Sub- Acute. Active Medications Acetaminophen (Tylenol -) 650 mg PO Q6H PRN PRN Reason: FEVER Acetaminophen (Ofirmev Injection -) 1,000 mg IVPB Q6H PRN PRN Reason: FEVER Last Admin: 11/26/17 17:31 Dose: 1,000 mg Albuterol/Ipratropium (Duoneb -) 1 amp NEB RQID [facility] Last Admin: 11/26/17 20:53 Dose: 1 amp Alprazolam (Xanax -) 0.5 mg PO Q8H PRN PRN Reason: ANXIETY Last Admin: 11/26/17 12:00 Dose: 0.5 mg Amino Acids (Prosource No Carb Liquid Pkt) 30 ml PO BID@0800,1730 [facility] Last Admin: 11/26/17 17:31 Dose: 30 ml Apixaban (Eliquis -) 5 mg PO BID [facility] Last Admin: 11/26/17 21:06 Dose: 5 mg Artificial Tears (Artificial Tears Ointment -) 1 applic OU HS [facility] Last Admin: 11/26/17 21:06 Dose: 1 applic Chlorhexidine Gluconate (Hibiclens For Decolonization -) 1 applic TP HS [facility] Last Admin: 11/26/17 21:07 Dose: 1 applic Ferrous Sulfate (Feosol) 300 mg GT DAILY [facility] Last Admin: 11/26/17 15:35 Dose: 300 mg Insulin Aspart (Novolog Vial Sliding Scale -) 1 vial SQ ACHS [facility] PRN Reason: Protocol Last Admin: 11/26/17 21:14 Dose: Not Given Insulin Detemir (Levemir Vial) 16 units SQ BID@0700,2200 [facility] Last Admin: 11/26/17 21:14 Dose: 16 units Lactobacillus Acidophilus (Bacid -) 1 tab PEG DAILY [facility] Last Admin: 11/26/17 09:00 Dose: 1 tab Metoprolol Tartrate (Lopressor Injection -) 5 mg IVPUSH Q4H PRN PRN Reason: HYPERTENSION Mupirocin (Bactroban Ointment (For Decolonization) -) 1 applic NS BID [facility] Stop: 11/27/17 21:59 Last Admin: 11/26/17 21:06 Dose: 1 applic Pantoprazole Sodium (Protonix Iv) 40 mg IVPUSH DAILY [facility] Last Admin: 11/26/17 09:00 Dose: 40 mg Prednisone (Deltasone -) 40 mg PO DAILY [facility] Last Admin: 11/26/17 09:00 Dose: 40 mg Quetiapine Fumarate (Seroquel -) 25 mg PO HS [facility] Last Admin: 11/26/17 21:07 Dose: 25 mg Ranitidine HCl (Zantac -) 150 mg PO DAILY [facility] Last Admin: 11/26/17 09:00 Dose: 150 mg Roflumilast (Daliresp -) 500 mcg NGT DAILY [facility] Last Admin: 11/26/17 09:00 Dose: 500 mcg Saliva Substitute (Mouthkote Solution -) 1 applic MM DAILY [facility] Last Admin: 11/26/17 09:00 Dose: 1 applic Vital Signs Temp 98.8 F 11/26/17 18:00 Pulse 115 H 11/26/17 20:00 Resp 27 H 11/26/17 20:03 BP 128/73 11/26/17 20:00 Pulse Ox 94 L 11/26/17 20:03 Intake & Output 11/25/17 11/26/17 11/26/17 23:59 11:59 23:59 Intake Total 450 2100 100 Output Total 1100 800 850 Balance -650 1300 -750 Weight 44.543 kg Intake: IVPB 100 100 Tube Feeding 600 Tube Irrigant 350 1500 Output: Urine 1100 800 850 External Catheter 1100 800 850 Other: Voiding Method External Catheter External Catheter External Catheter Bowel Movement No No Yes # Bowel Movements 2 2 Weight Measurement Method Built in [facility] Gen: vented, awake, alert, cachextic Heart: RRR Lung: scattered rhonchi, no active wheeze noted , tachypneic but NOT dyspneic Abd: soft, nontender Ext: no edema Neuro: awake, denies pain, non focal exam. CBC, BMP 11/26/17 05:55 11/26/17 05:55 ASSESSMENT AND PLAN: Acute Hypoxic Respiratory Failure s/p Tracheostomy Pneumonia Sepsis Interstitial Lung Disease Acute Diastolic Heart Failure improved Acute Kidney Injury Lactic Acidosis resolved DM RLE DVT - monitor urine output, creatinine - cont prednisone - Anxiolytics, seroquel qHS - enteral feeds - continue anticoagulation - taper FiO2 to keep SpO2 >90% - given high Fio2 requirement not candidate for vent weaning - DVT/GI prophylaxis - Ok for Vent floor , if unable to dispo to interior paneler care facility need to discuss calvalry/hospice. Trey Camacho, ACNP-[facility] ICU PULM/CCM [phone] [id number]"CCT
--- NOTE | 2017-11-26 15:29 | PN ---
Progress Note (short form) - Note Progress Note: covering dr verde resp failure roxane Current Medications Acetaminophen (Tylenol -) 650 mg PO Q6H PRN PRN Reason: FEVER Acetaminophen (Ofirmev Injection -) 1,000 mg IVPB Q6H PRN PRN Reason: FEVER Last Admin: 11/25/17 09:21 Dose: 1,000 mg Albuterol/Ipratropium (Duoneb -) 1 amp NEB RQID [facility] Last Admin: 11/26/17 15:01 Dose: 1 amp Alprazolam (Xanax -) 0.5 mg PO Q8H PRN PRN Reason: ANXIETY Last Admin: 11/25/17 09:20 Dose: 0.5 mg Amino Acids (Prosource No Carb Liquid Pkt) 30 ml PO BID@0800,1730 [facility] Last Admin: 11/25/17 17:50 Dose: 30 ml Apixaban (Eliquis -) 5 mg PO BID [facility] Last Admin: 11/25/17 22:23 Dose: 5 mg Artificial Tears (Artificial Tears Ointment -) 1 applic OU HS [facility] Last Admin: 11/25/17 22:22 Dose: 1 applic Chlorhexidine Gluconate (Hibiclens For Decolonization -) 1 applic TP HS [facility] Last Admin: 11/25/17 22:23 Dose: 1 applic Ferrous Sulfate (Feosol) 300 mg GT DAILY [facility] Last Admin: 11/25/17 09:22 Dose: 300 mg Insulin Aspart (Novolog Vial Sliding Scale -) 1 vial SQ ACHS [facility] PRN Reason: Protocol Last Admin: 11/26/17 06:31 Dose: 4 units Insulin Detemir (Levemir Vial) 16 units SQ BID@0700,2200 [facility] Lactobacillus Acidophilus (Bacid -) 1 tab PEG DAILY [facility] Last Admin: 11/25/17 09:20 Dose: 1 tab Metoprolol Tartrate (Lopressor Injection -) 5 mg IVPUSH Q4H PRN PRN Reason: HYPERTENSION Mupirocin (Bactroban Ointment (For Decolonization) -) 1 applic NS BID [facility] Stop: 11/27/17 21:59 Last Admin: 11/25/17 22:23 Dose: 1 applic Pantoprazole Sodium (Protonix Iv) 40 mg IVPUSH DAILY [facility] Last Admin: 11/25/17 09:22 Dose: 40 mg Prednisone (Deltasone -) 40 mg PO DAILY [facility] Last Admin: 11/25/17 09:20 Dose: 40 mg Quetiapine Fumarate (Seroquel -) 25 mg PO HS [facility] Last Admin: 11/25/17 22:25 Dose: 25 mg Ranitidine HCl (Zantac -) 150 mg PO DAILY [facility] Last Admin: 11/25/17 09:20 Dose: 150 mg Roflumilast (Daliresp -) 500 mcg NGT DAILY [facility] Last Admin: 11/25/17 13:50 Dose: 500 mcg Saliva Substitute (Mouthkote Solution -) 1 applic MM DAILY [facility] Last Admin: 11/25/17 09:22 Dose: 1 applic Last Vital Signs Temp Pulse Resp BP Pulse Ox 98.5 F 114 H 22 149/74 99 11/26/17 14:00 11/26/17 14:00 11/26/17 14:35 11/26/17 14:00 11/26/17 08:08 on vent req suctioning Lungs good air exchange Heart reg Abd soft nontender Ext no edema CBC, BMP 11/26/17 05:55 11/26/17 05:55 CBC, BMP 11/25/17 06:15 11/25/17 06:15 IMP stable hemodynamically hypernatremia- resolved hydrate more if serum sodium persists high Plan- continue to monitor lytes and renal function
[2017-11-26] MEDS: FERROUS SO4 300 MG/5 ML ORAL SOLN UNIT DOSE CUPS GT SCH (15:35)
[2017-11-26] MEDS: ACETAMINOPHEN 1000 MG/100 ML VIAL (NON FORMULARY) IVPB PRN (17:31)
[2017-11-26] MEDS: MINERAL OIL/PETROLATUM,WHITE 3.5 GM TUBE OU SCH (21:06)
[2017-11-26] MEDS: QUEtiapine FUMARATE 25 MG TABLET (FP) PO SCH (21:07)
[2017-11-26] MEDS: CHLORHEXIDINE GLUCONATE 4% CLEANSER FOR DECOLONIZATION TP SCH (21:07)
[2017-11-27] MEDS ORDERED: PT OWN MED DRAWER 7, Y5N ONE ×3 (06:20→20:46)
[2017-11-27] MEDS: INSULIN SLIDING SCALE (NOVOLOG) 1 VIAL SQ SCH ×4 (06:22→21:17)
[2017-11-27] MEDS: INSULIN DETEMIR 100 UNITS/ML MDV SQ SCH ×2 (06:22→21:14)
[2017-11-27] MEDS: BANATROL PLUS POWDER PACKET PEG SCH ×3 (06:23→21:15)
[2017-11-27] MEDS: ALBUTEROL SO4 2.5/IPRATROPIUM 0.5 INH SOL 3 ML VIAL.NEB. NEB SCH ×4 (07:20→21:00)
[2017-11-27 08:13] LABS: HEMATOCRIT 29.3 % (35.4-49); HEMOGLOBIN 8.8 GM/dL (11.7-16.9); MCH 30.7 pg (25.7-33.7); MCHC 30.1 g/dl (32.0-35.9); PLATELET COUNT 168 K/MM3 (134-434); RBC 2.87 M/mm3 (4.00-5.60); RDW 16.7 % (11.9-15.9); WHITE BLOOD COUNT 17.6 K/mm3 (4.0-10.0)
[2017-11-27 08:44] LABS: ALBUMIN 2.1 g/dl (3.4-5.0); ANION GAP 4 (8-16); BLOOD UREA NITROGEN 37 mg/dL (7-18); CALCIUM 8.4 mg/dL (8.5-10.1); CHLORIDE 98 mmol/L (98-107); CO2 42 mmol/L (21-32); GLUCOSE,RANDOM 236 mg/dL (74-106); POTASSIUM 4.5 mmol/L (3.5-5.1); SODIUM 144 mmol/L (136-145)
[2017-11-27 08:47] LABS: ALK PHOS 135 U/L (45-117); BILIRUBIN,TOTAL 0.6 mg/dL (0.2-1.0); CREATININE 0.8 mg/dL (0.7-1.3); SGOT/AST 12 U/L (15-37); SGPT/ALT 19 U/L (12-78); TOT PROT 7.6 g/dl (6.4-8.2)
[2017-11-27] MEDS: AMINO ACIDS/PROTEIN HYDROLYS 30 ML LIQUID.PKT PO SCH (09:02)
[2017-11-27] MEDS: APIXABAN 5 MG TABLET PO SCH ×2 (09:29→21:15)
[2017-11-27] MEDS: FERROUS SO4 300 MG/5 ML ORAL SOLN UNIT DOSE CUPS GT SCH (09:29)
[2017-11-27] MEDS: RANITIDINE HCL 150 MG TABLET (FP) PO SCH (09:29)
[2017-11-27] MEDS: LACTOBACILLUS ACIDOPHILUS 1 EACH TAB (FP) PEG SCH (09:29)
[2017-11-27] MEDS: ROFLUMILAST 500 MCG TABLET NGT SCH (09:30)
[2017-11-27] MEDS: predniSONE 20 MG TABLET (UD) PO SCH (09:30)
[2017-11-27] MEDS: MUPIROCIN 2% TOPICAL OINTMENT FOR DECOLONIZATION NS SCH (09:50)
[2017-11-27] MEDS: LYTES/YERBA SANTA 240 ML BOTTLE MM SCH (09:52)
[2017-11-27 11:04] LABS: MAGNESIUM 2.2 mg/dL (1.8-2.4); PHOSPHOROUS 2.7 mg/dL (2.5-4.9)
[2017-11-27 11:22] LABS: MACROCYTOSIS 1+
--- NOTE | 2017-11-27 11:52 | PN ---
Progress Note, Physician History of Present Illness: No significant events overnight. Patient denies any pain. - Current Medication List Current Medications: Active Medications Acetaminophen (Tylenol -) 650 mg PO Q6H PRN PRN Reason: FEVER Acetaminophen (Ofirmev Injection -) 1,000 mg IVPB Q6H PRN PRN Reason: FEVER Last Admin: 11/26/17 17:31 Dose: 1,000 mg Albuterol/Ipratropium (Duoneb -) 1 amp NEB RQID [facility] Last Admin: 11/27/17 11:48 Dose: 1 amp Alprazolam (Xanax -) 0.5 mg PO Q8H PRN PRN Reason: ANXIETY Last Admin: 11/26/17 12:00 Dose: 0.5 mg Amino Acids (Prosource No Carb Liquid Pkt) 30 ml PO BID@0800,1730 [facility] Last Admin: 11/27/17 09:02 Dose: 30 ml Apixaban (Eliquis -) 5 mg PO BID [facility] Last Admin: 11/27/17 09:29 Dose: 5 mg Artificial Tears (Artificial Tears Ointment -) 1 applic OU HS [facility] Last Admin: 11/26/17 21:06 Dose: 1 applic Chlorhexidine Gluconate (Hibiclens For Decolonization -) 1 applic TP HS [facility] Last Admin: 11/26/17 21:07 Dose: 1 applic Ferrous Sulfate (Feosol) 300 mg GT DAILY [facility] Last Admin: 11/27/17 09:29 Dose: 300 mg Insulin Aspart (Novolog Vial Sliding Scale -) 1 vial SQ ACHS [facility] PRN Reason: Protocol Last Admin: 11/27/17 11:38 Dose: 2 units Insulin Detemir (Levemir Vial) 16 units SQ BID@0700,2200 [facility] Last Admin: 11/27/17 06:22 Dose: 16 units Lactobacillus Acidophilus (Bacid -) 1 tab PEG DAILY [facility] Last Admin: 11/27/17 09:29 Dose: 1 tab Metoprolol Tartrate (Lopressor Injection -) 5 mg IVPUSH Q4H PRN PRN Reason: HYPERTENSION Mupirocin (Bactroban Ointment (For Decolonization) -) 1 applic NS BID [facility] Stop: 11/27/17 21:59 Last Admin: 11/27/17 09:50 Dose: 1 applic Pantoprazole Sodium (Protonix Iv) 40 mg IVPUSH DAILY [facility] Last Admin: 11/26/17 09:00 Dose: 40 mg Prednisone (Deltasone -) 40 mg PO DAILY [facility] Last Admin: 11/27/17 09:30 Dose: 40 mg Quetiapine Fumarate (Seroquel -) 25 mg PO HS [facility] Last Admin: 11/26/17 21:07 Dose: 25 mg Ranitidine HCl (Zantac -) 150 mg PO DAILY [facility] Last Admin: 11/27/17 09:29 Dose: 150 mg Roflumilast (Daliresp -) 500 mcg NGT DAILY [facility] Last Admin: 11/27/17 09:30 Dose: 500 mcg Saliva Substitute (Mouthkote Solution -) 1 applic MM DAILY [facility] Last Admin: 11/27/17 09:52 Dose: 1 applic - Objective Vital Signs: Vital Signs Temperature 98.1 F 11/27/17 10:00 Pulse Rate 131 H 11/27/17 11:45 Respiratory Rate 22 11/27/17 11:45 Blood Pressure 139/57 11/27/17 10:00 O2 Sat by Pulse Oximetry (%) 97 11/27/17 11:47 Constitutional: Yes: No Distress, Calm, Other (chronically cachectic, thin, wearing alida mittens but not agitated, mouthing words to communicate) Eyes: Yes: Conjunctiva Clear, EOM Intact HENT: Yes: Atraumatic, Normocephalic Neck: Yes: Supple, Trachea Midline Cardiovascular: Yes: Tachycardia Respiratory: Yes: Other (trach in place, bilateral diffuse crackles, no respiratory distress) Gastrointestinal: Yes: Normal Bowel Sounds, Soft Extremities: Yes: Other (chronic muscle atrophy in extremities) Integumentary: Yes: WNL Neurological: Yes: Alert, Oriented Labs: CBC, BMP 11/27/17 07:50 11/27/17 07:50 INR, PTT INR 1.02 (0.82-1.09) 11/09/17 05:50 Assessment/Plan Patient is a 62 year old male who was BIBEMS for hypoxic respiratory failure eating food, off of pressers, but with RLE DVT without PE s/p IVC filter, thrombectomy, catheter directed heparin infusion, requiring tracheostomy. Neuro: #Nicotine Dependence: - Nicotine patch 7 MG daily #Anxiety -Renewed 0.5 Xanax q8h for management of anxiety. #Agitation -Continue Seroquel 25mg for management of agitation. -Alida Palmer (ordered) CV: #Shock, septic vs. cardiogenic ve. iatrogenic. Source unclear but improved. Off pressors. - Resolved #DVT: U/S positive for right calf DVT, s/p thrombectomy - s/p IR direct infusion, doing well - Continue Eliquis #Chest Pain, none recently. - EKG unchanged Pulm: #Acute Hypoxic Respiratory Failure, improved. Initially thought ARDS vs. CHF given JVD and crackles treated for CAP. ECHO showing mild MR, mild/mod TR, mild pHTN. CT with diffuse interstitial lung disease, serial CXR with e/o congestion /volume overload. Patient was transferred back to the ICU for inability to maintain tidal volumes. Tidal volumes continue to be maintained with new trach tube. - Continue Prednisone 40 daily - Continue scheduled duonebs. - Continue daliresp. - Hold Lasix for now as patient appears euvolemic -Continue weaning FiO2 with goal <60% which should be met prior to d/c to SNF ID: likely ILD with GGO vs. infectious pattern. HIV, influenza, strep, legionella neg. BCx NGTD, sputum Cx NGTD. Completed Azithromycin and Ceftriaxone for suspected CAP. Concern for right lower lobe pneumonia. Urine cultures growing yeast. Sputum culture growing lactose fermenting negative bacilli. - Will continue to monitor. - ID recs appreciated #Leukocytosis -Continue to monitor CBCD. -CXR now. -If patient spikes a fever will need repeat cultures Renal: - CTM - Avoid nephrotoxic medications Heme: #Macrocytic Anemia: Hemoglobin 9.2 with MCV 101. Ferritin 882 (likely reactive) -Hb stable Endo #NIDDM: -Patient is no longer having hypoglycemic episodes requiring D50 pushes -Will continue to monitor BGM and provide D50 pushes as needed. -ISS : #BPH -Continue tamsulosin 0.4mg daily GI: #Peptic Ulcer Disease: History of mesh according to family and had Endoscopy two months. Was given medications according to patients daughter and completed course. -Continue PPI #Cachexia, chronic. -Continue PEG tube feeds FEN -Electrolytes repleted as needed. -Continue PEG tube feeds. PPX: -Continue Eliquis -Continue ranitidine -Discontinue Protonix. Disposition: Stable for transfer to the floors, awaiting tele bed.
--- NOTE | 2017-11-27 12:49 | PN ---
Teaching Attending Note Name of Resident: Nolvia Maharaj ATTENDING PHYSICIAN STATEMENT I saw and evaluated the patient. I reviewed the resident's note and discussed the case with the resident. I agree with the resident's findings and plan as documented. SUBJECTIVE: Pt seen and examined in the ICU. Vented, awake, tachypneic. Vented on volume assist control with 70% FiO2, PEEP 8. Intermittent desaturations. OBJECTIVE: Last Vital Signs Temp Pulse Resp BP Pulse Ox 98.1 F 131 H 22 139/57 97 11/27/17 10:00 11/27/17 11:45 11/27/17 11:45 11/27/17 10:00 11/27/17 11:47 Intake & Output 11/24/17 11/25/17 11/26/17 11/27/17 23:59 23:59 23:59 23:59 Intake Total 1820 2550 2500 960 Output Total 2100 2550 Balance 1820 450 -50 960 Weight 43.205 kg 43.636 kg 44.543 kg 37.3 kg Gen: vented, awake, tachypneic Heart: tachycardic, regular Lung: bilateral rhonchi Abd: soft, nontender Ext: no edema CBC, BMP 11/27/17 07:50 11/27/17 07:50 Active Medications Acetaminophen (Tylenol -) 650 mg PO Q6H PRN PRN Reason: FEVER Acetaminophen (Ofirmev Injection -) 1,000 mg IVPB Q6H PRN PRN Reason: FEVER Last Admin: 11/26/17 17:31 Dose: 1,000 mg Albuterol/Ipratropium (Duoneb -) 1 amp NEB RQID [facility] Last Admin: 11/27/17 11:48 Dose: 1 amp Alprazolam (Xanax -) 0.5 mg PO Q8H PRN PRN Reason: ANXIETY Last Admin: 11/26/17 12:00 Dose: 0.5 mg Amino Acids (Prosource No Carb Liquid Pkt) 30 ml PO BID@0800,1730 [facility] Last Admin: 11/27/17 09:02 Dose: 30 ml Apixaban (Eliquis -) 5 mg PO BID [facility] Last Admin: 11/27/17 09:29 Dose: 5 mg Artificial Tears (Artificial Tears Ointment -) 1 applic OU HS [facility] Last Admin: 11/26/17 21:06 Dose: 1 applic Chlorhexidine Gluconate (Hibiclens For Decolonization -) 1 applic TP HS [facility] Last Admin: 11/26/17 21:07 Dose: 1 applic Ferrous Sulfate (Feosol) 300 mg GT DAILY [facility] Last Admin: 11/27/17 09:29 Dose: 300 mg Insulin Aspart (Novolog Vial Sliding Scale -) 1 vial SQ ACHS [facility] PRN Reason: Protocol Last Admin: 11/27/17 11:38 Dose: 2 units Insulin Detemir (Levemir Vial) 16 units SQ BID@0700,2200 [facility] Last Admin: 11/27/17 06:22 Dose: 16 units Lactobacillus Acidophilus (Bacid -) 1 tab PEG DAILY [facility] Last Admin: 11/27/17 09:29 Dose: 1 tab Metoprolol Tartrate (Lopressor Injection -) 5 mg IVPUSH Q4H PRN PRN Reason: HYPERTENSION Mupirocin (Bactroban Ointment (For Decolonization) -) 1 applic NS BID [facility] Stop: 11/27/17 21:59 Last Admin: 11/27/17 09:50 Dose: 1 applic Pantoprazole Sodium (Protonix Iv) 40 mg IVPUSH DAILY [facility] Last Admin: 11/26/17 09:00 Dose: 40 mg Prednisone (Deltasone -) 40 mg PO DAILY [facility] Last Admin: 11/27/17 09:30 Dose: 40 mg Quetiapine Fumarate (Seroquel -) 25 mg PO HS [facility] Last Admin: 11/26/17 21:07 Dose: 25 mg Ranitidine HCl (Zantac -) 150 mg PO DAILY [facility] Last Admin: 11/27/17 09:29 Dose: 150 mg Roflumilast (Daliresp -) 500 mcg NGT DAILY [facility] Last Admin: 11/27/17 09:30 Dose: 500 mcg Saliva Substitute (Mouthkote Solution -) 1 applic MM DAILY [facility] Last Admin: 11/27/17 09:52 Dose: 1 applic ASSESSMENT AND PLAN: Acute Hypoxic Respiratory Failure s/p Tracheostomy Pneumonia Sepsis Interstitial Lung Disease Acute Diastolic Heart Failure improved Acute Kidney Injury Lactic Acidosis resolved DM RLE DVT - monitoring off antibiotics - monitor urine output, creatinine - continue prednisone - anxiolytics, seroquel qHS - enteral feeds - continue anticoagulation, monitor H/H - swallow eval for possible PO intake when respiratory status more stable - taper FiO2 to keep SpO2 >90% - spontaneous breathing trials as tolerated - DVT/GI prophylaxis - continue discussions regarding goals of care Problem List - Problems (1) Acute respiratory failure with hypoxia Code(s): J96.01 - ACUTE RESPIRATORY FAILURE WITH HYPOXIA (2) Pneumonia Code(s): J18.9 - PNEUMONIA, UNSPECIFIED ORGANISM (3) Diabetes Code(s): E11.9 - TYPE 2 DIABETES MELLITUS WITHOUT COMPLICATIONS
--- NOTE | 2017-11-27 15:15 | PN ---
Progress Note, Physician History of Present Illness: Pt seen and examined at bedside. He remains in the ICU. He remains on 100 percent fio2. He remains tachycardic and on vent. - Current Medication List Current Medications: Active Medications Acetaminophen (Tylenol -) 650 mg PO Q6H PRN PRN Reason: FEVER Acetaminophen (Ofirmev Injection -) 1,000 mg IVPB Q6H PRN PRN Reason: FEVER Last Admin: 11/26/17 17:31 Dose: 1,000 mg Albuterol/Ipratropium (Duoneb -) 1 amp NEB RQID [facility] Last Admin: 11/27/17 15:09 Dose: 1 amp Alprazolam (Xanax -) 0.5 mg PO Q8H PRN PRN Reason: ANXIETY Last Admin: 11/26/17 12:00 Dose: 0.5 mg Amino Acids (Prosource No Carb Liquid Pkt) 30 ml PO BID@0800,1730 [facility] Last Admin: 11/27/17 09:02 Dose: 30 ml Apixaban (Eliquis -) 5 mg PO BID [facility] Last Admin: 11/27/17 09:29 Dose: 5 mg Artificial Tears (Artificial Tears Ointment -) 1 applic OU HS [facility] Last Admin: 11/26/17 21:06 Dose: 1 applic Chlorhexidine Gluconate (Hibiclens For Decolonization -) 1 applic TP HS [facility] Last Admin: 11/26/17 21:07 Dose: 1 applic Ferrous Sulfate (Feosol) 300 mg GT DAILY [facility] Last Admin: 11/27/17 09:29 Dose: 300 mg Insulin Aspart (Novolog Vial Sliding Scale -) 1 vial SQ ACHS [facility] PRN Reason: Protocol Last Admin: 11/27/17 11:38 Dose: 2 units Insulin Detemir (Levemir Vial) 16 units SQ BID@0700,2200 [facility] Last Admin: 11/27/17 06:22 Dose: 16 units Lactobacillus Acidophilus (Bacid -) 1 tab PEG DAILY [facility] Last Admin: 11/27/17 09:29 Dose: 1 tab Metoprolol Tartrate (Lopressor Injection -) 5 mg IVPUSH Q4H PRN PRN Reason: HYPERTENSION Mupirocin (Bactroban Ointment (For Decolonization) -) 1 applic NS BID [facility] Stop: 02/12/18 21:59 Last Admin: 11/27/17 09:50 Dose: 1 applic Prednisone (Deltasone -) 40 mg PO DAILY [facility] Last Admin: 11/27/17 09:30 Dose: 40 mg Quetiapine Fumarate (Seroquel -) 25 mg PO HS [facility] Last Admin: 11/26/17 21:07 Dose: 25 mg Ranitidine HCl (Zantac -) 150 mg PO DAILY [facility] Last Admin: 11/27/17 09:29 Dose: 150 mg Roflumilast (Daliresp -) 500 mcg NGT DAILY [facility] Last Admin: 11/27/17 09:30 Dose: 500 mcg Saliva Substitute (Mouthkote Solution -) 1 applic MM DAILY [facility] Last Admin: 11/27/17 09:52 Dose: 1 applic - Objective Vital Signs: Vital Signs Temperature 98.1 F 11/27/17 10:00 Pulse Rate 125 H 11/27/17 12:00 Respiratory Rate 20 11/27/17 14:03 Blood Pressure 142/69 11/27/17 12:00 O2 Sat by Pulse Oximetry (%) 97 11/27/17 11:47 Constitutional: Yes: Calm Neck: Yes: Other (trache) Cardiovascular: Yes: S1, S2 Respiratory: Yes: Mechanically Ventilated Gastrointestinal: Yes: Other (peg) Genitourinary: Yes: Incontinence Musculoskeletal: Yes: Muscle Weakness Edema: No Neurological: Yes: Oriented Labs: CBC, BMP 11/27/17 07:50 11/27/17 07:50 INR, PTT INR 1.02 (0.82-1.09) 11/09/17 05:50 Problem List - Problems (1) Hypernatremia Code(s): E87.0 - HYPEROSMOLALITY AND HYPERNATREMIA (2) MIRLANDE (acute kidney injury) Code(s): N17.9 - ACUTE KIDNEY FAILURE, UNSPECIFIED (3) Acute respiratory failure with hypoxia Code(s): J96.01 - ACUTE RESPIRATORY FAILURE WITH HYPOXIA (4) Diabetes Code(s): E11.9 - TYPE 2 DIABETES MELLITUS WITHOUT COMPLICATIONS (5) Failure to thrive Code(s): [id number] - Assessment/Plan Current Medications Generic Name Dose Route Start Last Admin Trade Name Freq PRN Reason Stop Dose Admin Acetaminophen 650 mg 11/22/17 23:20 Tylenol - PO Q6H PRN FEVER Acetaminophen 1,000 mg 11/22/17 23:20 11/26/17 17:31 Ofirmev Injection - IVPB 1,000 mg Q6H PRN Administration FEVER Albuterol/Ipratropium 1 amp 11/23/17 08:00 11/27/17 15:09 Duoneb - NEB 1 amp RQID [facility] Administration Alprazolam 0.5 mg 11/23/17 11:38 11/26/17 12:00 Xanax - PO 0.5 mg Q8H PRN Administration ANXIETY Amino Acids 30 ml 11/23/17 08:00 11/27/17 09:02 Prosource No Carb Liquid Pkt PO 30 ml BID@0800,1730 [facility] Administration Apixaban 5 mg 11/23/17 10:00 11/27/17 09:29 Eliquis - PO 5 mg BID [facility] Administration Artificial Tears 1 applic 11/23/17 22:00 11/26/17 21:06 Artificial Tears Ointment - OU 1 applic HS [facility] Administration Chlorhexidine Gluconate 1 applic 11/22/17 22:00 11/26/17 21:07 Hibiclens For Decolonization - TP 1 applic HS [facility] Administration Ferrous Sulfate 300 mg 11/23/17 10:00 11/27/17 09:29 Feosol GT 300 mg DAILY [facility] Administration Insulin Aspart 1 vial 11/23/17 07:00 11/27/17 11:38 Novolog Vial Sliding Scale - SQ 2 units ACHS [facility] Administration Protocol Insulin Detemir 16 units 11/26/17 08:34 11/27/17 06:22 Levemir Vial SQ 16 units BID@0700,2200 [facility] Administration Lactobacillus Acidophilus 1 tab 11/23/17 10:00 11/27/17 09:29 Bacid - PEG 1 tab DAILY [facility] Administration Metoprolol Tartrate 5 mg 11/22/17 23:20 Lopressor Injection - IVPUSH Q4H PRN HYPERTENSION Mupirocin 1 applic 11/22/17 22:00 11/27/17 09:50 Bactroban Ointment (For Decolonization) - NS 11/27/17 21:59 1 applic BID [facility] Administration Prednisone 40 mg 11/23/17 10:00 11/27/17 09:30 Deltasone - PO 40 mg DAILY [facility] Administration Quetiapine Fumarate 25 mg 11/23/17 22:00 02/11/18 21:07 Seroquel - PO 25 mg HS [facility] Administration Ranitidine HCl 150 mg 11/23/17 10:00 11/27/17 09:29 Zantac - PO 150 mg DAILY [facility] Administration Roflumilast 500 mcg 11/23/17 10:00 11/27/17 09:30 Daliresp - NGT 500 mcg DAILY [facility] Administration Saliva Substitute 1 applic 11/23/17 10:00 11/27/17 09:52 Mouthkote Solution - MM 1 applic DAILY [facility] Administration Impression 1. MIRLANDE 2. hypernatremia 3. chronic resp failure s/p trache 4. s/p trache 5. s/p peg 6. sepsis 7. interstitial lung disease 8. chf diastolic 9. DM 10. lactic acidosis 11. PNA Plan - sodium stable - follow cxr - cont free water - avoid fluids for now - pulmonary follow up - monitor pulse ox - vent support Dr Gan
[2017-11-27] MEDS: PANTOPRAZOLE SODIUM 40 MG VIAL IVPUSH SCH (15:16)
--- NOTE | 2017-11-27 15:34 | PN ---
Teaching Attending Note Name of Resident: Russell Anderson ATTENDING PHYSICIAN STATEMENT I saw and evaluated the patient. I reviewed the resident's note and discussed the case with the resident. I agree with the resident's findings and plan as documented. SUBJECTIVE:resting comfortable,shakes head no for respiratory distress OBJECTIVE: Last Vital Signs Temp Pulse Resp BP Pulse Ox 98.1 F 125 H 20 142/69 97 11/27/17 10:00 11/27/17 12:00 11/27/17 14:03 11/27/17 12:00 11/27/17 11:47 General NAD, resting comfortable Lungs coarse breath sounds anteriorly +white secretions from trach tube ASSESSMENT AND PLAN: 62 yo M active smoker, pMHx of NIDDM, PUD, BPH admitted with acute hypoxic respiratory failure, and extensive RLE DVT 1. Acute hypoxic respiratory failure, suspect from ?ILD with pneumonitis- s/p intubation 11/03 with failed weaning and now s/p trach 11/07. trach exchanged 11/19. no gross signs of tracheomalacia. unable to titrate down FiO2. currently on SIMV. FiO2 70%. goal SpO2 >88%. on pred 40mg 2. RLE DVT- s/p IVC filter 10/20, thrombectmy 10/24. on eliquis 5mg BID. monitor for bleeding 3. Sepsis due to suspected aspiration PNA- luekocytosis continues to trend up. afebrile. +secretions from trach. will consider CXR imaging if conitnues to trend up. receivined abx course x2. will hold abx at this time. cont deep frequent suctioning. 4. Acute diastolic heart failure- s/p intermittent lasix IV. clinically euvolemic. will hold for now 5. Iron deficiency anemia and anemia of chronic disease- possible due to frequent blood draws and comorbidities. s/p 1 unit PRBC this hospital stay. cont iron supplementation 6. Hypernatremia-resolved. decrease free water flushes 7. antibiotic assoc Diarrhea-likely due to prolonged abx use. now resolved. on bacid and banatol. 8. continuous nicotine dependence- nicotine patch 9. cachexia- severe malnutrition evident by body habitus. lost 40+lbs this hospital stay. s/p PEG 11/09. tolerating TF 10. DM- improved. cont levemir 16 units BID. cont to titrate as needed. 11. Agitation- intermittent periods of agitation. off 2 point restraints >24H. on seroquel HS. 12. PPX- ppi/eliquis 13. Poor overall prognosis. Unable to titrate down Fio2, not candidate for tertiary care center as no other management available at this time. julien not an option. SNF will only take with Fio2 <60%. if unable to wean pt further will need to consider palliative care and hospice. spoke wtih daughter present at bedside about failure to improve and lack of alternatives at this time. would like some time to decide on goals of care, struggling as she does not have much support from family other than pt's sister. spoke with Sanaz, who will reach out to patient today. The care of this patient involved high complexity decision making to prevent further life threatening deterioration of the patient's condition and/or to evaluate & treat vital organ system(s) failure or risk of failure. 35 minutes
--- NOTE | 2017-11-27 16:54 | PN ---
Physical Exam: SUBJECTIVE: Patient seen and examined No acute events overnight. Pt denies pain anywhere or any complaints. Pt still vented at 70% O2. OBJECTIVE: Vital Signs Period Temp Pulse Resp BP Sys/Sutton Pulse Ox Last 24 Hr 98 F-98.8 F 107-131 14-34 122-158/57-74 90-97 GENERAL: cachectic elderly male, vented, in NAD HEENT: dry mucous membranes, sunken eyes LUNGS: mechanical breath sounds, no rales or rhonchi appreciated HEART: difficult to assess over mechanical breath sounds ABDOMEN: scaphoid abdomen, soft, NT, mesh from hernia surgery is easily palpable EXTREMITIES: 2+ pulses, warm, well-perfused, no edema, emaciated. hands in todd mittens NEUROLOGICAL: Cranial nerves II through XII grossly intact Laboratory Results - last 24 hr 10/21/17 11/26/17 11/26/17 05:50 17:34 21:12 WBC RBC Hgb Hct MCV MCH MCHC RDW Plt Count MPV Total Counted Neutrophils % Neutrophils % (Manual) Band Neutrophils % Lymphocytes % Lymphocytes % (Manual) Monocytes % (Manual) Hypochromia Polychromasia Macrocytosis Sodium Potassium Chloride Carbon Dioxide Anion Gap BUN Creatinine Creat Clearance w eGFR POC Glucometer [phone] Random Glucose Calcium Phosphorus Magnesium Total Bilirubin AST ALT Alkaline Phosphatase Total Protein Total Protein (PEP) 7.1 Albumin Albumin (PEP) 2.2 L Albumin/Globulin Ratio 0.4 L Beta Globulins 1.1 MERYL M-Errol Not observed 11/27/17 11/27/17 11/27/17 06:18 07:50 07:50 WBC 17.6 H D RBC 2.87 L Hgb 8.8 L Hct 29.3 L MCV 102.0 H MCH 30.7 MCHC 30.1 L RDW 16.7 H Plt Count 168 MPV 12.0 H Total Counted 100 Neutrophils % No Result Required. Neutrophils % (Manual) 84.0 H Band Neutrophils % 11.0 Lymphocytes % No Result Required. Lymphocytes % (Manual) 3.0 L D Monocytes % (Manual) 2 L Hypochromia 1+ Polychromasia 1+ Macrocytosis 1+ Sodium 144 Potassium 4.5 Chloride 98 Carbon Dioxide 42 H Anion Gap 4 L BUN 37 H Creatinine 0.8 Creat Clearance w eGFR > 60 POC Glucometer [phone] Random Glucose 236 H Calcium 8.4 L Phosphorus 2.7 Magnesium 2.2 Total Bilirubin 0.6 D AST 12 L ALT 19 Alkaline Phosphatase 135 H Total Protein 7.6 Total Protein (PEP) Albumin 2.1 L Albumin (PEP) Albumin/Globulin Ratio Beta Globulins MERYL M-Errol Active Medications Generic Name Dose Route Start Last Admin Trade Name Freq PRN Reason Stop Dose Admin Acetaminophen 650 mg 11/22/17 23:20 Tylenol - PO Q6H PRN FEVER Acetaminophen 1,000 mg 11/22/17 23:20 11/26/17 17:31 Ofirmev Injection - IVPB 1,000 mg Q6H PRN Administration FEVER Albuterol/Ipratropium 1 amp 11/23/17 08:00 11/27/17 15:09 Duoneb - NEB 1 amp RQID SONAL Administration Alprazolam 0.5 mg 11/23/17 11:38 11/26/17 12:00 Xanax - PO 0.5 mg Q8H PRN Administration ANXIETY Apixaban 5 mg 11/23/17 10:00 11/27/17 09:29 Eliquis - PO 5 mg BID SONAL Administration Artificial Tears 1 applic 11/23/17 22:00 11/26/17 21:06 Artificial Tears Ointment - OU 1 applic HS SONAL Administration Chlorhexidine Gluconate 1 applic 11/22/17 22:00 11/26/17 21:07 Hibiclens For Decolonization - TP 1 applic HS SONAL Administration Ferrous Sulfate 300 mg 11/23/17 10:00 11/27/17 09:29 Feosol GT 300 mg DAILY SONAL Administration Insulin Aspart 1 vial 11/23/17 07:00 11/27/17 11:38 Novolog Vial Sliding Scale - SQ 2 units ACHS SONAL Administration Protocol Insulin Detemir 16 units 11/26/17 08:34 11/27/17 06:22 Levemir Vial SQ 16 units BID@0700,2200 SONAL Administration Lactobacillus Acidophilus 1 tab 11/23/17 10:00 11/27/17 09:29 Bacid - PEG 1 tab DAILY SONAL Administration Metoprolol Tartrate 5 mg 11/22/17 23:20 Lopressor Injection - IVPUSH Q4H PRN HYPERTENSION Mupirocin 1 applic 11/22/17 22:00 11/27/17 09:50 Bactroban Ointment (For Decolonization) - NS 11/27/17 21:59 1 applic BID SONAL Administration Prednisone 40 mg 11/23/17 10:00 11/27/17 09:30 Deltasone - PO 40 mg DAILY SONAL Administration Quetiapine Fumarate 25 mg 11/23/17 22:00 11/26/17 21:07 Seroquel - PO 25 mg HS SONAL Administration Ranitidine HCl 150 mg 11/23/17 10:00 11/27/17 09:29 Zantac - PO 150 mg DAILY SONAL Administration Roflumilast 500 mcg 11/23/17 10:00 11/27/17 09:30 Daliresp - NGT 500 mcg DAILY SONAL Administration Saliva Substitute 1 applic 11/23/17 10:00 11/27/17 09:52 Mouthkote Solution - MM 1 applic DAILY SONAL Administration CXR: worsening consolidation/congestion ASSESSMENT/PLAN: 62M w/ hx of active smoking, NIDDM, PUD, and BPH who presented with SOB, found to have acute hypoxic respiratory failure, extensive RLE DVT, sepsis likely 2/2 aspiration PNA, and acute diastolic CHF. #Acute hypoxic respiratory failure -suspect from ILD with pneumonitis, s/p intubation 11/03 with failed weaning and now s/p trach 11/07. trach exchanged 11/19. no gross signs of tracheomalacia. unable to titrate down FiO2. currently on SIMV with FiO2 70%. -goal SpO2 >88% -continue prednisone 40mg #RLE DVT -s/p IVC filter 10/20, thrombectmy 10/24 -continue eliquis 5mg BID, monitor for bleeding #Sepsis -due to suspected aspiration PNA, already received abx course x2 -leukocytosis of 17.6, up from 11.3 -afebrile, +secretions from trach -will consider CXR imaging if continues to trend up. will hold abx at this time. cont deep frequent suctioning #Acute diastolic heart failure -s/p intermittent lasix IV. clinically euvolemic. will hold for now #Iron deficiency anemia and anemia of chronic disease -possible due to frequent blood draws and comorbidities - s/p 1 unit PRBC this hospital stay -cont iron supplementation #Hypernatremia -resolved -free water flushes increased to 50cc #antibiotic assoc Diarrhea -likely due to prolonged abx use, now resolved -continue bacid and banatol. #continuous nicotine dependence -nicotine patch #cachexia -severe malnutrition evident by body habitus. lost 40+lbs this hospital stay. s/p PEG 11/09. -tolerating TF. per , prosource D/C'd #DM -improved -cont levemir 16 units BID -cont to titrate as needed. #Agitation -intermittent periods of agitation. off 2 point restraints >24H -continue seroquel HS #FEN/PPX -water flush tube feeds -electrolytes wnl -tube feeds -protonix 40 IV -eliquis #Dispo -Poor overall prognosis. Unable to titrate down Fio2, not candidate for tertiary care center as no other management available at this time. julien not an option. SNF will only take with Fio2 <60%. if unable to wean pt further will need to consider palliative care and hospice. spoke with daughter present at bedside about failure to improve and lack of alternatives at this time. would like some time to decide on goals of care, struggling as she does not have much support from family other than pt's sister. spoke with Sanaz, who will reach out to patient today. Case discussed with attending, Dr. Harper. -Russell Anderson MD PGY1 Visit type - Emergency Visit Emergency Visit: Yes ED Registration Date: 10/17/17 Care time: The patient presented to the Emergency Department on the above date and was hospitalized for further evaluation of their emergent condition. - New Patient This patient is new to me today: Yes Date on this admission: 11/27/17 - Critical Care Critical Care patient: Yes Total Critical Care Time (in minutes): 39 Critical Care Statement: The care of this patient involved high complexity decision making to prevent further life threatening deterioration of the patient 's condition and/or to evaluate & treat vital organ system(s) failure or risk of failure.
[2017-11-27] MEDS: ALPRAZolam 0.25 MG TABLET PO PRN (17:48)
[2017-11-27] MEDS: CHLORHEXIDINE GLUCONATE 4% CLEANSER FOR DECOLONIZATION TP SCH (21:14)
[2017-11-27] MEDS: QUEtiapine FUMARATE 25 MG TABLET (FP) PO SCH (21:15)
[2017-11-27] MEDS: MINERAL OIL/PETROLATUM,WHITE 3.5 GM TUBE OU SCH (21:16)
[2017-11-28] MEDS: ALPRAZolam 0.25 MG TABLET PO PRN ×2 (00:09→18:00)
[2017-11-28] MEDS: BANATROL PLUS POWDER PACKET PEG SCH ×3 (05:28→21:10)
[2017-11-28 06:28] LABS: BASO % 0.2 % (0-2.0); EOS % 0.2 % (0-4.5); HEMATOCRIT 27.2 % (35.4-49); HEMOGLOBIN 8.4 GM/dL (11.7-16.9); LYMPH % 7.7 % (8-40); MCH 31.6 pg (25.7-33.7); MCHC 30.8 g/dl (32.0-35.9); MEAN CELL VOLUME 102.6 fl (80-96); MEAN PLT VOLUME 12.5 fl (7.5-11.1); MONO % 5.9 % (3.8-10.2); PLATELET COUNT 139 K/MM3 (134-434); RBC 2.65 M/mm3 (4.00-5.60); RDW 17.1 % (11.9-15.9); WHITE BLOOD COUNT 11.3 K/mm3 (4.0-10.0)
[2017-11-28] MEDS: INSULIN SLIDING SCALE (NOVOLOG) 1 VIAL SQ SCH ×4 (06:32→21:23)
[2017-11-28] MEDS: INSULIN DETEMIR 100 UNITS/ML MDV SQ SCH ×2 (06:34→21:23)
[2017-11-28 06:56] LABS: ALBUMIN 2.1 g/dl (3.4-5.0); BLOOD UREA NITROGEN 41 mg/dL (7-18); CALCIUM 8.4 mg/dL (8.5-10.1); CHLORIDE 100 mmol/L (98-107); CREATININE 0.7 mg/dL (0.7-1.3); GLUCOSE,RANDOM 86 mg/dL (74-106); MAGNESIUM 2.4 mg/dL (1.8-2.4); PHOSPHOROUS 3.3 mg/dL (2.5-4.9); POTASSIUM 4.8 mmol/L (3.5-5.1); SGOT/AST 12 U/L (15-37); SGPT/ALT 17 U/L (12-78); SODIUM 146 mmol/L (136-145)
[2017-11-28 06:58] LABS: ALK PHOS 122 U/L (45-117); BILIRUBIN,TOTAL 0.7 mg/dL (0.2-1.0); TOT PROT 7.4 g/dl (6.4-8.2)
--- NOTE | 2017-11-28 07:13 | PN ---
Progress Note, Physician History of Present Illness: 24 hour events: Morning pressure 89/59 (lowest in a while). Palliative called daughter Kristina yesterday afternoon, who was feeling ill and couldn't take the call. However she stated she may stop by to visit around 11 am today. Attempted to wean patient off FiO2 yesterday after transfer plan cancelled because he was still requiring 100% FiO2 at the time the bed became available. Per RN note this morning, "Tried tapering fio2 to 70%, o2 sat 92%, leaking trach stoma site , mucus drainage noted, site cleaned. fio2 up to 85% o2 sat 98%." Subjective: Patient reports feeling very well, no pain, no anxiety currently, no SOB or discomfort. 24 HR I/O: I: 2100cc O: 500cc Net: +1600cc BM: None reported - Current Medication List Current Medications: Active Medications Acetaminophen (Tylenol -) 650 mg PO Q6H PRN PRN Reason: FEVER Acetaminophen (Ofirmev Injection -) 1,000 mg IVPB Q6H PRN PRN Reason: FEVER Last Admin: 11/26/17 17:31 Dose: 1,000 mg Albuterol/Ipratropium (Duoneb -) 1 amp NEB RQID [facility] Last Admin: 11/27/17 21:00 Dose: 1 amp Alprazolam (Xanax -) 0.5 mg PO Q8H PRN PRN Reason: ANXIETY Last Admin: 11/28/17 00:09 Dose: 0.5 mg Apixaban (Eliquis -) 5 mg PO BID [facility] Last Admin: 11/27/17 21:15 Dose: 5 mg Artificial Tears (Artificial Tears Ointment -) 1 applic OU HS [facility] Last Admin: 11/27/17 21:16 Dose: 1 applic Chlorhexidine Gluconate (Hibiclens For Decolonization -) 1 applic TP HS [facility] Last Admin: 11/27/17 21:14 Dose: 1 applic Ferrous Sulfate (Feosol) 300 mg GT DAILY [facility] Last Admin: 11/27/17 09:29 Dose: 300 mg Insulin Aspart (Novolog Vial Sliding Scale -) 1 vial SQ ACHS [facility] PRN Reason: Protocol Last Admin: 11/28/17 06:32 Dose: Not Given Insulin Detemir (Levemir Vial) 16 units SQ BID@0700,2200 [facility] Last Admin: 11/28/17 06:34 Dose: 16 units Lactobacillus Acidophilus (Bacid -) 1 tab PEG DAILY [facility] Last Admin: 11/27/17 09:29 Dose: 1 tab Metoprolol Tartrate (Lopressor Injection -) 5 mg IVPUSH Q4H PRN PRN Reason: HYPERTENSION Prednisone (Deltasone -) 40 mg PO DAILY [facility] Last Admin: 11/27/17 09:30 Dose: 40 mg Quetiapine Fumarate (Seroquel -) 25 mg PO HS [facility] Last Admin: 11/27/17 21:15 Dose: 25 mg Ranitidine HCl (Zantac -) 150 mg PO DAILY [facility] Last Admin: 11/27/17 09:29 Dose: 150 mg Roflumilast (Daliresp -) 500 mcg NGT DAILY [facility] Last Admin: 11/27/17 09:30 Dose: 500 mcg Saliva Substitute (Mouthkote Solution -) 1 applic MM DAILY [facility] Last Admin: 11/27/17 09:52 Dose: 1 applic - Objective Vital Signs: Vital Signs Temperature 97.9 F 11/28/17 06:00 Pulse Rate 115 H 11/28/17 06:00 Respiratory Rate 28 H 11/28/17 07:02 Blood Pressure 89/59 11/28/17 06:00 O2 Sat by Pulse Oximetry (%) 100 11/27/17 21:10 Constitutional: Yes: Thin, Other (cachexia, NAD, in Reynolds mittens) Eyes: Yes: Conjunctiva Clear, EOM Intact HENT: Yes: Atraumatic, Normocephalic, Other (trach in place) Neck: Yes: Supple, Trachea Midline, Other (trach in place) Cardiovascular: Yes: Other (tachycardic, sacral edema) Respiratory: Yes: Other (trach in place without secretions, on vent, tachypneic , no crackles (improved), no wheezes) Gastrointestinal: Yes: Normal Bowel Sounds, Soft Musculoskeletal: Yes: Muscle Weakness. No: Joint Stiffness, Joint Swelling Edema: Yes (sacral) Neurological: Yes: Alert Psychiatric: Yes: Alert Labs: CBC, BMP 11/28/17 05:35 INR, PTT INR 1.02 (0.82-1.09) 11/09/17 05:50 Assessment/Plan 62 YOM with h/o NIDDM, PUD, BPH, long-time smoker, presented initially with hypoxic respiratory failure while eating food, found large DVT to RLE, now s/p IVC filter placed (10/20/17) and thrombectomy (10.24.17), tracheostomy, on ventilator, now off of pressers, but continues to require 100% FiO2 and thus could not be transferred from ICU as planned when bed became available 11/27/17. Neuro: #Nicotine Dependence: -Nicotine patch 7 MG daily #Anxiety -Renewed 0.5 Xanax q8h for management of anxiety #Agitation -Continue Seroquel 25mg for management of agitation -Alida Palmer (ordered) CV: #Shock, septic vs. cardiogenic vs. iatrogenic, resolved. Source unclear. Off pressors. -NTD #DVT: U/S positive for right calf DVT, s/p thrombectomy -S/P IR direct infusion, doing well -Continue Eliquis #Chest Pain, none recently. -EKG unchanged Pulm: #Acute Hypoxic Respiratory Failure, improved. Initially thought ARDS vs. CHF given JVD and crackles treated for CAP. ECHO showing mild MR, mild/mod TR, mild pHTN. CT with diffuse interstitial lung disease, serial CXR with e/o congestion /volume overload. Patient was transferred back to the ICU for inability to maintain tidal volumes. Tidal volumes continue to be maintained with new trach tube. -Continue Prednisone 40 daily -Continue scheduled duonebs. -Continue daliresp. -Hold Lasix for now as patient appears euvolemic -Continue weaning FiO2 with goal <60% which should be met prior to d/c to SNF ID: likely ILD with GGO vs. infectious pattern. HIV, influenza, strep, legionella neg. BCx NGTD, sputum Cx NGTD. Completed Azithromycin and Ceftriaxone for suspected CAP. Concern for right lower lobe pneumonia. Urine cultures growing yeast. Sputum culture growing lactose fermenting negative bacilli. -Continue to monitor. -ID recs appreciated #Leukocytosis, improved to 11.3 today (down from 17.6 on 11/27) -Continue to monitor CBCD -CXR daily -If patient spikes a fever will need repeat cultures Renal: - CTM - Avoid nephrotoxic medications Heme: #Macrocytic Anemia, persistent. Ferritin 882 (likely reactive) -Hb stable around 8-9. Endo #NIDDM. BG in the 200's -Patient is no longer having hypoglycemic episodes -Will continue to monitor BGM and provide D50 pushes as needed. -ISS : #BPH -Continue tamsulosin 0.4mg daily GI: #Peptic Ulcer Disease: History of mesh according to family and had Endoscopy two months. Was given medications according to patients daughter and completed course. -Continue PPI -Reduced banana flakes to one pack TID per dietitian #Cachexia, chronic. -Continue PEG tube feeds FEN -Electrolytes repleted as needed. -Continue PEG tube feeds. PPX: -Continue Eliquis -Continue ranitidine -Discontinued Protonix. Lines/Drains/Tubes (updated 11/28/17) [place]: CVC: Feeding tube: Tracheostomy tube: PIV: Disposition: Stable for transfer to the floors, awaiting tele bed.
[2017-11-28 07:19] LABS: ANION GAP -6 (8-16); CO2 52 mmol/L (21-32)
[2017-11-28] MEDS ORDERED: HEMOQUE CONTROL SOLUTION ONE (07:29)
[2017-11-28] MEDS: ALBUTEROL SO4 2.5/IPRATROPIUM 0.5 INH SOL 3 ML VIAL.NEB. NEB SCH ×4 (08:19→21:18)
--- NOTE | 2017-11-28 08:47 | PN ---
Physical Exam: SUBJECTIVE: Patient seen and examined Pt required higher FiO2s overnight, maxing at 90%. This am, pt denies pain anywhere or any complaints, currently at FiO2 of 85%, satting well. OBJECTIVE: Vital Signs Period Temp Pulse Resp BP Sys/Sutton Pulse Ox Last 24 Hr 97.9 F-99.8 F 99-131 14-36 89-142/55-81 91-100 GENERAL: cachectic elderly male, vented, in NAD HEENT: dry mucous membranes, sunken eyes LUNGS: mechanical breath sounds, no rales or rhonchi appreciated HEART: difficult to assess over mechanical breath sounds ABDOMEN: scaphoid abdomen, soft, NT, mesh from hernia surgery is easily palpable EXTREMITIES: 2+ pulses, warm, well-perfused, no edema, emaciated. hands in todd mittens NEUROLOGICAL: Cranial nerves II through XII grossly intact Laboratory Results - last 24 hr 10/21/17 11/27/17 11/27/17 05:50 07:50 07:50 WBC RBC Hgb Hct MCV MCH MCHC RDW Plt Count MPV Total Counted 100 Neutrophils % Neutrophils % (Manual) 84.0 H Band Neutrophils % 11.0 Lymphocytes % Lymphocytes % (Manual) 3.0 L D Monocytes % Monocytes % (Manual) 2 L Eosinophils % Basophils % Hypochromia 1+ Polychromasia 1+ Macrocytosis 1+ Sodium 144 Potassium 4.5 Chloride 98 Carbon Dioxide 42 H Anion Gap 4 L BUN 37 H Creatinine 0.8 Creat Clearance w eGFR > 60 POC Glucometer Random Glucose 236 H Calcium 8.4 L Phosphorus 2.7 Magnesium 2.2 Total Bilirubin 0.6 D AST 12 L ALT 19 Alkaline Phosphatase 135 H Total Protein 7.6 Total Protein (PEP) 7.1 Albumin 2.1 L Albumin (PEP) 2.2 L Albumin/Globulin Ratio 0.4 L Beta Globulins 1.1 MERYL M-Errol Not observed 11/27/17 11/27/17 11/27/17 11:28 17:33 20:53 WBC RBC Hgb Hct MCV MCH MCHC RDW Plt Count MPV Total Counted Neutrophils % Neutrophils % (Manual) Band Neutrophils % Lymphocytes % Lymphocytes % (Manual) Monocytes % Monocytes % (Manual) Eosinophils % Basophils % Hypochromia Polychromasia Macrocytosis Sodium Potassium Chloride Carbon Dioxide Anion Gap BUN Creatinine Creat Clearance w eGFR POC Glucometer [phone] Random Glucose Calcium Phosphorus Magnesium Total Bilirubin AST ALT Alkaline Phosphatase Total Protein Total Protein (PEP) Albumin Albumin (PEP) Albumin/Globulin Ratio Beta Globulins MERYL M-Errol 11/28/17 11/28/17 05:35 05:35 WBC 11.3 H D RBC 2.65 L Hgb 8.4 L Hct 27.2 L MCV 102.6 H MCH 31.6 MCHC 30.8 L RDW 17.1 H Plt Count 139 MPV 12.5 H Total Counted Neutrophils % 86.0 H Neutrophils % (Manual) Band Neutrophils % Lymphocytes % 7.7 L D Lymphocytes % (Manual) Monocytes % 5.9 Monocytes % (Manual) Eosinophils % 0.2 Basophils % 0.2 Hypochromia Polychromasia Macrocytosis Sodium 146 H Potassium 4.8 Chloride 100 Carbon Dioxide 52 H D Anion Gap -6 L BUN 41 H Creatinine 0.7 Creat Clearance w eGFR > 60 POC Glucometer Random Glucose 86 D Calcium 8.4 L Phosphorus 3.3 D Magnesium 2.4 Total Bilirubin 0.7 AST 12 L ALT 17 Alkaline Phosphatase 122 H Total Protein 7.4 Total Protein (PEP) Albumin 2.1 L Albumin (PEP) Albumin/Globulin Ratio Beta Globulins MERYL M-Errol Active Medications Generic Name Dose Route Start Last Admin Trade Name Freq PRN Reason Stop Dose Admin Acetaminophen 650 mg 11/22/17 23:20 Tylenol - PO Q6H PRN FEVER Acetaminophen 1,000 mg 11/22/17 23:20 11/26/17 17:31 Ofirmev Injection - IVPB 1,000 mg Q6H PRN Administration FEVER Albuterol/Ipratropium 1 amp 11/23/17 08:00 11/28/17 08:19 Duoneb - NEB 1 amp RQID SONAL Administration Alprazolam 0.5 mg 11/23/17 11:38 11/28/17 00:09 Xanax - PO 0.5 mg Q8H PRN Administration ANXIETY Apixaban 5 mg 11/23/17 10:00 11/27/17 21:15 Eliquis - PO 5 mg BID SONAL Administration Artificial Tears 1 applic 11/23/17 22:00 11/27/17 21:16 Artificial Tears Ointment - OU 1 applic HS SONAL Administration Chlorhexidine Gluconate 1 applic 11/22/17 22:00 11/27/17 21:14 Hibiclens For Decolonization - TP 1 applic HS SONAL Administration Ferrous Sulfate 300 mg 11/23/17 10:00 11/27/17 09:29 Feosol GT 300 mg DAILY SONAL Administration Insulin Aspart 1 vial 11/23/17 07:00 11/28/17 06:32 Novolog Vial Sliding Scale - SQ Not Given [facility] Protocol Insulin Detemir 16 units 11/26/17 08:34 11/28/17 06:34 Levemir Vial SQ 16 units BID@0700,2200 SONAL Administration Lactobacillus Acidophilus 1 tab 11/23/17 10:00 11/27/17 09:29 Bacid - PEG 1 tab DAILY SONAL Administration Metoprolol Tartrate 5 mg 11/22/17 23:20 Lopressor Injection - IVPUSH Q4H PRN HYPERTENSION Prednisone 40 mg 11/23/17 10:00 11/27/17 09:30 Deltasone - PO 40 mg DAILY SONAL Administration Quetiapine Fumarate 25 mg 11/23/17 22:00 11/27/17 21:15 Seroquel - PO 25 mg HS SONAL Administration Ranitidine HCl 150 mg 11/23/17 10:00 11/27/17 09:29 Zantac - PO 150 mg DAILY SONAL Administration Roflumilast 500 mcg 11/23/17 10:00 11/27/17 09:30 Daliresp - NGT 500 mcg DAILY SONAL Administration Saliva Substitute 1 applic 11/23/17 10:00 11/27/17 09:52 Mouthkote Solution - MM 1 applic DAILY SONAL Administration ASSESSMENT/PLAN: 62M w/ hx of active smoking, NIDDM, PUD, and BPH who presented with SOB, found to have acute hypoxic respiratory failure, extensive RLE DVT, sepsis likely 2/2 aspiration PNA, and acute diastolic CHF. #Acute hypoxic respiratory failure -suspect from ILD with pneumonitis, s/p intubation 11/03 with failed weaning and now s/p trach 11/07. trach exchanged 11/19. no gross signs of tracheomalacia. unable to titrate down FiO2. currently on FiO2 85%. -goal SpO2 >88% -continue prednisone 40mg #RLE DVT -s/p IVC filter 10/20, thrombectmy 10/24 -continue eliquis 5mg BID, monitor for bleeding #Sepsis -due to suspected aspiration PNA, already received abx course x2 -leukocytosis: 11.3--> 17.6--> 11.3 -afebrile, no secretions from trach on physical exam -will consider CXR imaging if continues to trend up. will hold abx at this time. cont deep frequent suctioning #Acute diastolic heart failure -s/p intermittent lasix IV. clinically euvolemic. will hold for now #Iron deficiency anemia and anemia of chronic disease -possible due to frequent blood draws and comorbidities - s/p 1 unit PRBC this hospital stay -cont iron supplementation #Hypernatremia -Na of 146 -free water flushes -continue to monitor #antibiotic assoc Diarrhea -likely due to prolonged abx use, now resolved -continue bacid and banatol. #continuous nicotine dependence -nicotine patch #cachexia -severe malnutrition evident by body habitus. lost 40+lbs this hospital stay. s/p PEG 11/09. -tolerating TF #DM -improved -cont levemir 16 units BID -cont to titrate as needed. #Agitation -intermittent periods of agitation -continue seroquel HS -per nurse, todd mittens required because pt tries to pull out lines and tubes when he gets hypoxic and restless. #FEN/PPX -water flush tube feeds -electrolytes wnl -tube feeds -ranitidine -eliquis #Dispo -Poor overall prognosis. Unable to titrate down Fio2, not candidate for tertiary care center as no other management available at this time. julien not an option. SNF will only take with Fio2 <60%. Considering palliative care and hospice -spoke with daughter on 11/27 about failure to improve and lack of alternatives at this time. She would like some time to decide on goals of care, struggling as she does not have much support from family other than pt's sister. Sanaz tried to discuss further with pt's daughter on 11/27, but daughter was not feeling up to having a conversation at that time. Case discussed with attending, Dr. Ramirez. -Russell Anderson MD PGY1 Visit type - Emergency Visit Emergency Visit: Yes ED Registration Date: 10/17/17 Care time: The patient presented to the Emergency Department on the above date and was hospitalized for further evaluation of their emergent condition. - New Patient This patient is new to me today: No - Critical Care Critical Care patient: Yes Total Critical Care Time (in minutes): 35 Critical Care Statement: The care of this patient involved high complexity decision making to prevent further life threatening deterioration of the patient 's condition and/or to evaluate & treat vital organ system(s) failure or risk of failure.
[2017-11-28] MEDS ORDERED: PT OWN MED DRAWER 7, Y5N ONE ×2 (09:56→21:06)
[2017-11-28] MEDS: LACTOBACILLUS ACIDOPHILUS 1 EACH TAB (FP) PEG SCH (10:36)
[2017-11-28] MEDS: ROFLUMILAST 500 MCG TABLET NGT SCH (10:36)
[2017-11-28] MEDS: RANITIDINE HCL 150 MG TABLET (FP) PO SCH (10:36)
[2017-11-28] MEDS: predniSONE 20 MG TABLET (UD) PO SCH (10:36)
[2017-11-28] MEDS: FERROUS SO4 300 MG/5 ML ORAL SOLN UNIT DOSE CUPS GT SCH (10:36)
[2017-11-28] MEDS: APIXABAN 5 MG TABLET PO SCH ×2 (10:36→21:48)
[2017-11-28] MEDS: LYTES/YERBA SANTA 240 ML BOTTLE MM SCH (10:37)
[2017-11-28] MEDS ORDERED: HEMOQUE TEST 1 EACH EACH ONE (11:17)
--- NOTE | 2017-11-28 12:59 | PN ---
Teaching Attending Note Name of Resident: Russell Anderson ATTENDING PHYSICIAN STATEMENT Time of evaluation: 9:20 AM I saw and evaluated the patient. I reviewed the resident's note and discussed the case with the resident. I agree with the resident's findings and plan as documented. SUBJECTIVE: Patient seen and examined, awake, reports no change, no new pain or dyspnea noted. OBJECTIVE: Vital Signs Period Temp Pulse Resp BP Sys/Sutton Pulse Ox Last 24 Hr 97.9 F-99.8 F 99-117 18-36 89-141/55-81 96-100 Intake & Output 11/25/17 11/26/17 11/27/17 11/28/17 23:59 23:59 23:59 23:59 Intake Total 2550 2500 2100 960 Output Total 2100 2550 500 400 Balance 450 -50 1600 560 Weight 96 lb 3.2 oz 98 lb 3.2 oz 82 lb 3.719 oz 81 lb 6.4 oz general: sitting in bed, no acute distress, no tachypnea or use of acessory muscles noted CVS:S1S2 regular Chest: fine bilateral rales unchanged Abdomen: scaphoid, able to palpate mesh, NT extremities: no edema Home Medication List Medication Instructions Recorded Confirmed Type Glipizide [Glucotrol Xl] 0 mg PO ASDIR 10/17/17 10/17/17 History Metformin HCl 0 mg PO ASDIR 10/17/17 10/17/17 History Tamsulosin HCl 0.4 mg PO DAILY 10/17/17 10/17/17 History Active Medications Generic Name Dose Route Start Last Admin Trade Name Freq PRN Reason Stop Dose Admin Acetaminophen 650 mg 11/22/17 23:20 Tylenol - PO Q6H PRN FEVER Acetaminophen 1,000 mg 11/22/17 23:20 11/26/17 17:31 Ofirmev Injection - IVPB 1,000 mg Q6H PRN Administration FEVER Albuterol/Ipratropium 1 amp 11/23/17 08:00 11/28/17 08:19 Duoneb - NEB 1 amp RQID SONAL Administration Alprazolam 0.5 mg 11/23/17 11:38 11/28/17 00:09 Xanax - PO 0.5 mg Q8H PRN Administration ANXIETY Apixaban 5 mg 11/23/17 10:00 02/13/18 10:36 Eliquis - PO 5 mg BID SONAL Administration Artificial Tears 1 applic 11/23/17 22:00 11/27/17 21:16 Artificial Tears Ointment - OU 1 applic HS SONAL Administration Chlorhexidine Gluconate 1 applic 11/22/17 22:00 11/27/17 21:14 Hibiclens For Decolonization - TP 1 applic HS SONAL Administration Ferrous Sulfate 300 mg 11/23/17 10:00 11/28/17 10:36 Feosol GT 300 mg DAILY SONAL Administration Insulin Aspart 1 vial 11/23/17 07:00 11/28/17 11:25 Novolog Vial Sliding Scale - SQ Not Given ACHS SONAL Protocol Insulin Detemir 16 units 11/26/17 08:34 11/28/17 06:34 Levemir Vial SQ 16 units BID@0700,2200 SONAL Administration Lactobacillus Acidophilus 1 tab 11/23/17 10:00 11/28/17 10:36 Bacid - PEG 1 tab DAILY SONAL Administration Metoprolol Tartrate 5 mg 11/22/17 23:20 Lopressor Injection - IVPUSH Q4H PRN HYPERTENSION Prednisone 40 mg 11/23/17 10:00 11/28/17 10:36 Deltasone - PO 40 mg DAILY SONAL Administration Quetiapine Fumarate 25 mg 11/23/17 22:00 11/27/17 21:15 Seroquel - PO 25 mg HS SONAL Administration Ranitidine HCl 150 mg 11/23/17 10:00 11/28/17 10:36 Zantac - PO 150 mg DAILY SONAL Administration Roflumilast 500 mcg 11/23/17 10:00 11/28/17 10:36 Daliresp - NGT 500 mcg DAILY SONLA Administration Saliva Substitute 1 applic 11/23/17 10:00 11/28/17 10:37 Mouthkote Solution - MM 1 applic DAILY SONAL Administration Laboratory Results - last 24 hr 10/21/17 11/27/17 11/27/17 05:50 11:28 17:33 WBC RBC Hgb Hct MCV MCH MCHC RDW Plt Count MPV Neutrophils % Lymphocytes % Monocytes % Eosinophils % Basophils % Sodium Potassium Chloride Carbon Dioxide Anion Gap BUN Creatinine Creat Clearance w eGFR POC Glucometer [phone] Random Glucose Calcium Phosphorus Magnesium Total Bilirubin AST ALT Alkaline Phosphatase Total Protein Total Protein (PEP) 7.1 Albumin Albumin (PEP) 2.2 L Albumin/Globulin Ratio 0.4 L Beta Globulins 1.1 MERYL M-Errol Not observed 11/27/17 11/28/17 11/28/17 20:53 05:35 05:35 WBC 11.3 H D RBC 2.65 L Hgb 8.4 L Hct 27.2 L MCV 102.6 H MCH 31.6 MCHC 30.8 L RDW 17.1 H Plt Count 139 MPV 12.5 H Neutrophils % 86.0 H Lymphocytes % 7.7 L D Monocytes % 5.9 Eosinophils % 0.2 Basophils % 0.2 Sodium 146 H Potassium 4.8 Chloride 100 Carbon Dioxide 52 H D Anion Gap -6 L BUN 41 H Creatinine 0.7 Creat Clearance w eGFR > 60 POC Glucometer [phone] Random Glucose 86 D Calcium 8.4 L Phosphorus 3.3 D Magnesium 2.4 Total Bilirubin 0.7 AST 12 L ALT 17 Alkaline Phosphatase 122 H Total Protein 7.4 Total Protein (PEP) Albumin 2.1 L Albumin (PEP) Albumin/Globulin Ratio Beta Globulins MERYL M-Errol Microbiology 11/18/17 21:30 Stool Clostridium difficile Antigen ([facility]) - Final 11/18/17 21:30 Stool Clostridium difficile Toxin Assay - Final 11/13/17 17:30 Blood - Peripheral Venous Blood Culture - Final NO GROWTH AFTER 5 DAYS INCUBATION 11/13/17 17:10 Blood - Peripheral Venous Blood Culture - Final NO GROWTH AFTER 5 DAYS INCUBATION 11/14/17 14:30 Sputum - Endotrachea Suction/Ventilator Gram Stain - Final 11/14/17 14:30 Sputum - Endotrachea Suction/Ventilator Sputum Culture - Final Klebsiella Pneumoniae 11/14/17 22:00 Urine - Urine Clean Catch Urine Culture - Final Yeast Like Organism 11/15/17 11:00 Nasopharyngeal Swab Influenza Types A,B Antigen ([facility]) - Final 11/15/17 11:00 Nasopharyngeal Swab - Final 10/21/17 06:00 Serum Cryptococcal Antigen - Final 10/19/17 19:30 Sputum - Expectorated Gram Stain - Final 10/19/17 19:30 Sputum - Expectorated Sputum Culture - Final NORMAL RESPIRATORY TOYIN 10/17/17 10:10 Blood - Peripheral Venous Blood Culture - Final NO GROWTH AFTER 5 DAYS INCUBATION 10/17/17 10:10 Blood - Peripheral Venous Blood Culture - Final NO GROWTH AFTER 5 DAYS INCUBATION 10/17/17 13:57 Urine - Urine Clean Catch Urine Culture - Final NO GROWTH OBTAINED 10/17/17 13:57 Urine For Antigen Detection Legionella Antigen - Final 10/17/17 13:57 Urine For Antigen Detection Streptococcus pneumoniae Antigen (M - Final 10/17/17 10:25 Nasopharyngeal Swab Influenza Types A,B Antigen ([facility]) - Final 10/17/17 10:25 Nasopharyngeal Swab - Final ASSESSMENT AND PLAN: 62 yo M active smoker, pMHx of NIDDM, PUD, BPH admitted with acute hypoxic respiratory failure, and extensive RLE DVT -Acute hypoxic respiratory failure, suspect from ?ILD with pneumonitis s/p intubation 11/03, trach 11/07, exchanged 11/11 for cuff, now recurrent worsening respiratory failure, suspected aspiration PNA with sepsis -Extensive RLE Acute DVT, s/p IVC filter 10/20, thrombectmy 10/24 - Acute diastolic heart failure -Sepsis on admission, likely from PNA, now recurrent concerns for aspiration PNA -Lactic acidosis, from sepsis vs increased work of breathing, resolved -MIRLANDE on admission from sepsis, now recurrent, ?Sepsis, vs ATN , obstructive process ruled out -Hypernatremia, likely hypovolumic -Thrombocytopenia -Elevated INR -Chest wall and right sided abdominal pain -NIDDM -PUD -BPH -Cachexia/malnutrition -Unwitnessed fall 11/19/2017 Plan: Trach changed and transferred back to ICU, unable to bring FiO2 down, currently at 85%. Not a candidate for transfer to [place] as per reports. Overall prognosis poor. Has been on 2 courses of antibiotics (7 days of ceftriaxone/azithromycin and 8 days of zosyn for possible aspiration), off antibiotics now, will monitor. Calmer on seroquel and xanax, Frequent suctioning, aspiration precautions. Trach cuff leak, s/p extended trach placed 11/14, trach changed again on 11/22 for broken cuff. Continue prednisone per pulmonary. ?ILD with pneumonitis, unclear etiology, On Eliquis, hold for procedure as indicated. Renal ultrasound/nephrology input/Urine lytes noted. Renal function improved. s/p PEG 11/09 Follow up speech/swallow eval as able. Intermittent agitation, 2 point restraints as pulls at the vent, usually in the evenings, suspect . Platelets improved. Replete lytes prn. Ac 7.4, ISS, hold oral hypoglycemics. Levemir 16 units BID, titrate based on blood sugars. Continue flomax. Nicotine patch Plan discussed with nursing. Not a candidate for transfer to [place] as discussed. Also [facility]. Continue to follow up with CM. Overall poor prognosis given still with High FiO2 requirements and tenuous respiratory status. Will continue to address overall goals with patient and family. Total critical care time spent in ICU 35 min.
--- NOTE | 2017-11-28 13:02 | PN ---
Teaching Attending Note Name of Resident: Nolvia Maharaj ATTENDING PHYSICIAN STATEMENT I saw and evaluated the patient. I reviewed the resident's note and discussed the case with the resident. I agree with the resident's findings and plan as documented. SUBJECTIVE: Pt seen and examined in the ICU. Vented on volume assist control with 75% FiO2 and PEEP 8. Awake, remains tachypneic but appears more comfortable today. No fevers recorded. OBJECTIVE: Last Vital Signs Temp Pulse Resp BP Pulse Ox 98.6 F 104 H 28 H 103/58 97 11/28/17 10:00 11/28/17 10:00 11/28/17 11:16 11/28/17 10:00 11/28/17 10:45 Intake & Output 11/25/17 11/26/17 11/27/17 11/28/17 23:59 23:59 23:59 23:59 Intake Total 2550 2500 2100 960 Output Total 2100 2550 500 400 Balance 450 -50 1600 560 Weight 43.636 kg 44.543 kg 37.3 kg 36.922 kg Gen: vented, tachypneic Heart: tachycardic, regular Lung: scattered rhonchi Abd: soft, nontender Ext: no edema CBC, BMP 11/28/17 05:35 11/28/17 05:35 Active Medications Acetaminophen (Tylenol -) 650 mg PO Q6H PRN PRN Reason: FEVER Acetaminophen (Ofirmev Injection -) 1,000 mg IVPB Q6H PRN PRN Reason: FEVER Last Admin: 11/26/17 17:31 Dose: 1,000 mg Albuterol/Ipratropium (Duoneb -) 1 amp NEB RQID [facility] Last Admin: 11/28/17 08:19 Dose: 1 amp Alprazolam (Xanax -) 0.5 mg PO Q8H PRN PRN Reason: ANXIETY Last Admin: 11/28/17 00:09 Dose: 0.5 mg Apixaban (Eliquis -) 5 mg PO BID [facility] Last Admin: 11/28/17 10:36 Dose: 5 mg Artificial Tears (Artificial Tears Ointment -) 1 applic OU HS [facility] Last Admin: 11/27/17 21:16 Dose: 1 applic Chlorhexidine Gluconate (Hibiclens For Decolonization -) 1 applic TP [facility] Last Admin: 11/27/17 21:14 Dose: 1 applic Ferrous Sulfate (Feosol) 300 mg GT DAILY [facility] Last Admin: 11/28/17 10:36 Dose: 300 mg Insulin Aspart (Novolog Vial Sliding Scale -) 1 vial SQ ACHS [facility] PRN Reason: Protocol Last Admin: 11/28/17 11:25 Dose: Not Given Insulin Detemir (Levemir Vial) 16 units SQ BID@0700,2200 [facility] Last Admin: 11/28/17 06:34 Dose: 16 units Lactobacillus Acidophilus (Bacid -) 1 tab PEG DAILY [facility] Last Admin: 11/28/17 10:36 Dose: 1 tab Metoprolol Tartrate (Lopressor Injection -) 5 mg IVPUSH Q4H PRN PRN Reason: HYPERTENSION Prednisone (Deltasone -) 40 mg PO DAILY [facility] Last Admin: 11/28/17 10:36 Dose: 40 mg Quetiapine Fumarate (Seroquel -) 25 mg PO HS [facility] Last Admin: 11/27/17 21:15 Dose: 25 mg Ranitidine HCl (Zantac -) 150 mg PO DAILY [facility] Last Admin: 11/28/17 10:36 Dose: 150 mg Roflumilast (Daliresp -) 500 mcg NGT DAILY [facility] Last Admin: 11/28/17 10:36 Dose: 500 mcg Saliva Substitute (Mouthkote Solution -) 1 applic MM DAILY [facility] Last Admin: 11/28/17 10:37 Dose: 1 applic ASSESSMENT AND PLAN: Acute Hypoxic Respiratory Failure s/p Tracheostomy Pneumonia treated Sepsis Interstitial Lung Disease Acute Diastolic Heart Failure improved Acute Kidney Injury Lactic Acidosis resolved DM RLE DVT - monitoring off antibiotics - monitor urine output, creatinine - continue prednisone - anxiolytics, seroquel qHS - enteral feeds - continue anticoagulation, monitor H/H - swallow eval for possible PO intake when respiratory status more stable - taper FiO2 to keep SpO2 >90% - spontaneous breathing trials as tolerated - DVT/GI prophylaxis - continue discussions regarding goals of care - continue ICU monitoring for now critical care time spent in reviewing chart, evaluating patient and formulating plan 35 min Problem List - Problems (1) Acute respiratory failure with hypoxia Code(s): J96.01 - ACUTE RESPIRATORY FAILURE WITH HYPOXIA (2) Pneumonia Code(s): J18.9 - PNEUMONIA, UNSPECIFIED ORGANISM (3) Diabetes Code(s): E11.9 - TYPE 2 DIABETES MELLITUS WITHOUT COMPLICATIONS
--- NOTE | 2017-11-28 16:49 | PN ---
Progress Note, Physician History of Present Illness: Pt seen and examined at bedside. He remains in the ICU. He is doing poorly from the pulmonary standpoint. - Current Medication List Current Medications: Active Medications Acetaminophen (Tylenol -) 650 mg PO Q6H PRN PRN Reason: FEVER Acetaminophen (Ofirmev Injection -) 1,000 mg IVPB Q6H PRN PRN Reason: FEVER Last Admin: 11/26/17 17:31 Dose: 1,000 mg Albuterol/Ipratropium (Duoneb -) 1 amp NEB RQID [facility] Last Admin: 11/28/17 16:35 Dose: 1 amp Alprazolam (Xanax -) 0.5 mg PO Q8H PRN PRN Reason: ANXIETY Last Admin: 11/28/17 00:09 Dose: 0.5 mg Apixaban (Eliquis -) 5 mg PO BID [facility] Last Admin: 11/28/17 10:36 Dose: 5 mg Artificial Tears (Artificial Tears Ointment -) 1 applic OU HS [facility] Last Admin: 11/27/17 21:16 Dose: 1 applic Chlorhexidine Gluconate (Hibiclens For Decolonization -) 1 applic TP HS [facility] Last Admin: 11/27/17 21:14 Dose: 1 applic Ferrous Sulfate (Feosol) 300 mg GT DAILY [facility] Last Admin: 11/28/17 10:36 Dose: 300 mg Insulin Aspart (Novolog Vial Sliding Scale -) 1 vial SQ ACHS [facility] PRN Reason: Protocol Last Admin: 11/28/17 11:25 Dose: Not Given Insulin Detemir (Levemir Vial) 16 units SQ BID@0700,2200 [facility] Last Admin: 11/28/17 06:34 Dose: 16 units Lactobacillus Acidophilus (Bacid -) 1 tab PEG DAILY [facility] Last Admin: 11/28/17 10:36 Dose: 1 tab Metoprolol Tartrate (Lopressor Injection -) 5 mg IVPUSH Q4H PRN PRN Reason: HYPERTENSION Prednisone (Deltasone -) 40 mg PO DAILY [facility] Last Admin: 11/28/17 10:36 Dose: 40 mg Quetiapine Fumarate (Seroquel -) 25 mg PO HS [facility] Last Admin: 11/27/17 21:15 Dose: 25 mg Ranitidine HCl (Zantac -) 150 mg PO DAILY [facility] Last Admin: 11/28/17 10:36 Dose: 150 mg Roflumilast (Daliresp -) 500 mcg NGT DAILY [facility] Last Admin: 11/28/17 10:36 Dose: 500 mcg Saliva Substitute (Mouthkote Solution -) 1 applic MM DAILY [facility] Last Admin: 11/28/17 10:37 Dose: 1 applic - Objective Vital Signs: Vital Signs Temperature 98.8 F 11/28/17 14:00 Pulse Rate 112 H 11/28/17 14:00 Respiratory Rate 26 H 11/28/17 16:10 Blood Pressure 110/62 11/28/17 14:00 O2 Sat by Pulse Oximetry (%) 97 11/28/17 10:45 Constitutional: Yes: Calm Neck: Yes: Other (trache) Cardiovascular: Yes: Tachycardia, S1, S2 Respiratory: Yes: Mechanically Ventilated Gastrointestinal: Yes: Soft, Other (peg) Genitourinary: Yes: Incontinence Musculoskeletal: Yes: Muscle Weakness Edema: No Neurological: Yes: Oriented Psychiatric: Yes: Oriented Labs: CBC, BMP 11/28/17 05:35 11/28/17 05:35 INR, PTT INR 1.02 (0.82-1.09) 11/09/17 05:50 Problem List - Problems (1) Hypernatremia Code(s): E87.0 - HYPEROSMOLALITY AND HYPERNATREMIA (2) MIRLANDE (acute kidney injury) Code(s): N17.9 - ACUTE KIDNEY FAILURE, UNSPECIFIED (3) Acute respiratory failure with hypoxia Code(s): J96.01 - ACUTE RESPIRATORY FAILURE WITH HYPOXIA (4) Diabetes Code(s): E11.9 - TYPE 2 DIABETES MELLITUS WITHOUT COMPLICATIONS (5) Failure to thrive Code(s): [id number] - Assessment/Plan Current Medications Generic Name Dose Route Start Last Admin Trade Name Freq PRN Reason Stop Dose Admin Acetaminophen 650 mg 11/22/17 23:20 Tylenol - PO Q6H PRN FEVER Acetaminophen 1,000 mg 11/22/17 23:20 11/26/17 17:31 Ofirmev Injection - IVPB 1,000 mg Q6H PRN Administration FEVER Albuterol/Ipratropium 1 amp 11/23/17 08:00 11/28/17 16:35 Duoneb - NEB 1 amp RQID [facility] Administration Alprazolam 0.5 mg 11/23/17 11:38 11/28/17 00:09 Xanax - PO 0.5 mg Q8H PRN Administration ANXIETY Apixaban 5 mg 11/23/17 10:00 11/28/17 10:36 Eliquis - PO 5 mg BID [facility] Administration Artificial Tears 1 applic 11/23/17 22:00 11/27/17 21:16 Artificial Tears Ointment - OU 1 applic HS [facility] Administration Chlorhexidine Gluconate 1 applic 11/22/17 22:00 11/27/17 21:14 Hibiclens For Decolonization - TP 1 applic HS [facility] Administration Ferrous Sulfate 300 mg 11/23/17 10:00 11/28/17 10:36 Feosol GT 300 mg DAILY [facility] Administration Insulin Aspart 1 vial 11/23/17 07:00 11/28/17 11:25 Novolog Vial Sliding Scale - SQ Not Given ACHS [facility] Protocol Insulin Detemir 16 units 11/26/17 08:34 11/28/17 06:34 Levemir Vial SQ 16 units BID@0700,2200 [facility] Administration Lactobacillus Acidophilus 1 tab 11/23/17 10:00 11/28/17 10:36 Bacid - PEG 1 tab DAILY [facility] Administration Metoprolol Tartrate 5 mg 11/22/17 23:20 Lopressor Injection - IVPUSH Q4H PRN HYPERTENSION Prednisone 40 mg 11/23/17 10:00 11/28/17 10:36 Deltasone - PO 40 mg DAILY [facility] Administration Quetiapine Fumarate 25 mg 11/23/17 22:00 11/27/17 21:15 Seroquel - PO 25 mg HS [facility] Administration Ranitidine HCl 150 mg 11/23/17 10:00 11/28/17 10:36 Zantac - PO 150 mg DAILY [facility] Administration Roflumilast 500 mcg 11/23/17 10:00 11/28/17 10:36 Daliresp - NGT 500 mcg DAILY [facility] Administration Saliva Substitute 1 applic 11/23/17 10:00 11/28/17 10:37 Mouthkote Solution - MM 1 applic DAILY [facility] Administration Impression 1. MIRLANDE 2. hypernatremia 3. chronic resp failure s/p trache 4. s/p trache 5. s/p peg 6. sepsis 7. interstitial lung disease 8. chf diastolic 9. DM 10. lactic acidosis 11. PNA Plan - increase free water with feeds - monitor renal function - pulmonary follow up - avoid fluids for now - monitor pulse ox - vent support Dr Gan
[2017-11-28] MEDS: CHLORHEXIDINE GLUCONATE 4% CLEANSER FOR DECOLONIZATION TP SCH (21:10)
[2017-11-28] MEDS: QUEtiapine FUMARATE 25 MG TABLET (FP) PO SCH (21:11)
[2017-11-28] MEDS: MINERAL OIL/PETROLATUM,WHITE 3.5 GM TUBE OU SCH (21:12)
[2017-11-29] MEDS ORDERED: HEMOQUE CONTROL SOLUTION ONE (01:10)
[2017-11-29] MEDS: ALPRAZolam 0.25 MG TABLET PO PRN (02:03)
[2017-11-29] MEDS: BANATROL PLUS POWDER PACKET PEG SCH ×3 (05:27→21:18)
[2017-11-29] MEDS: INSULIN DETEMIR 100 UNITS/ML MDV SQ SCH ×2 (06:06→21:36)
[2017-11-29] MEDS: INSULIN SLIDING SCALE (NOVOLOG) 1 VIAL SQ SCH ×4 (06:07→21:37)
[2017-11-29] MEDS ORDERED: HEMOQUE TEST 1 EACH EACH ONE ×2 (06:17→20:09)
[2017-11-29 06:28] LABS: BASO % 0.2 % (0-2.0); EOS % 0.5 % (0-4.5); HEMATOCRIT 26.1 % (35.4-49); HEMOGLOBIN 8.2 GM/dL (11.7-16.9); LYMPH % 14.6 % (8-40); MCHC 31.4 g/dl (32.0-35.9); MEAN CELL VOLUME 101.9 fl (80-96); MONO % 8.4 % (3.8-10.2); NEUT % 76.3 % (42.8-82.8); PLATELET COUNT 110 K/MM3 (134-434); RBC 2.56 M/mm3 (4.00-5.60); RDW 16.5 % (11.9-15.9); WHITE BLOOD COUNT 6.9 K/mm3 (4.0-10.0)
[2017-11-29 06:41] LABS: INR 1.19 (0.82-1.09); PROTHROMBIN TIME (PATIENT) 13.4 SEC (9.98-11.88)
[2017-11-29 06:43] LABS: ACTIVATED PTT 29.3 SECONDS (26.9-34.4)
[2017-11-29 06:49] LABS: CHLORIDE 101 mmol/L (98-107); POTASSIUM 4.6 mmol/L (3.5-5.1); SODIUM 149 mmol/L (136-145)
[2017-11-29 06:50] LABS: ARTERIAL BLD GAS O2 SATURATION 99.3 % (90-98.9); ARTERIAL BLOOD GAS pH 7.37 (7.35-7.45)
[2017-11-29 06:53] LABS: ALLENS TEST POSITIVE
[2017-11-29 06:59] LABS: ALK PHOS 128 U/L (45-117); BILIRUBIN,TOTAL 0.3 mg/dL (0.2-1.0); BLOOD UREA NITROGEN 45 mg/dL (7-18); CALCIUM 9.5 mg/dL (8.5-10.1); CREATININE 0.7 mg/dL (0.7-1.3); GLUCOSE,RANDOM 99 mg/dL (74-106); MAGNESIUM 2.9 mg/dL (1.8-2.4); PHOSPHOROUS 4.1 mg/dL (2.5-4.9); SGOT/AST 26 U/L (15-37); SGPT/ALT 29 U/L (12-78); TOT PROT 7.7 g/dl (6.4-8.2)
[2017-11-29 07:18] LABS: ARTERIAL BLOOD GAS BASE EXCESS 18.1 meq/l (-2-2); ARTERIAL BLOOD GAS PCO2 81.1 mmHg (35-45)
[2017-11-29] MEDS ORDERED: PT OWN MED DRAWER 7, Y5N ONE ×4 (07:22→21:02)
[2017-11-29] MEDS: ALBUTEROL SO4 2.5/IPRATROPIUM 0.5 INH SOL 3 ML VIAL.NEB. NEB SCH ×4 (07:40→20:47)
[2017-11-29 07:51] LABS: ANION GAP 0 (8-16); CO2 48 mmol/L (21-32)
[2017-11-29] MEDS: ACETAMINOPHEN 325 MG TABLET (FP) PO PRN (10:18)
[2017-11-29] MEDS: predniSONE 20 MG TABLET (UD) PO SCH (10:18)
[2017-11-29] MEDS: LACTOBACILLUS ACIDOPHILUS 1 EACH TAB (FP) PEG SCH (10:19)
[2017-11-29] MEDS: RANITIDINE HCL 150 MG TABLET (FP) PO SCH (10:19)
[2017-11-29] MEDS: ROFLUMILAST 500 MCG TABLET NGT SCH (10:19)
[2017-11-29] MEDS: APIXABAN 5 MG TABLET PO SCH ×2 (10:19→21:46)
[2017-11-29] MEDS: FERROUS SO4 300 MG/5 ML ORAL SOLN UNIT DOSE CUPS GT SCH (10:19)
--- NOTE | 2017-11-29 13:01 | PN ---
Teaching Attending Note Name of Resident: Tonio Conte ATTENDING PHYSICIAN STATEMENT I saw and evaluated the patient. I reviewed the resident's note and discussed the case with the resident. I agree with the resident's findings and plan as documented. SUBJECTIVE: Pt seen and examined in the ICU. Vent settings changed to NPPV with trach overnight, 22/5 and 1 sec rise time with decent tidal volumes. OBJECTIVE: Last Vital Signs Temp Pulse Resp BP Pulse Ox 99.2 F 112 H 26 H 128/61 98 11/29/17 10:00 11/29/17 10:00 11/29/17 11:51 11/29/17 10:00 11/29/17 07:00 Intake & Output 11/26/17 11/27/17 11/28/17 11/29/17 23:59 23:59 23:59 23:59 Intake Total 2500 2100 2140 960 Output Total 2550 500 600 500 Balance -50 1600 1540 460 Weight 44.543 kg 37.3 kg 36.922 kg 36.469 kg Gen: awake, vented, tachypneic Heart: tachycardic, regular Lung: bilateral rhonchi Abd: soft, nontender Ext: no edema CBC, BMP 11/29/17 05:35 11/29/17 05:35 Active Medications Acetaminophen (Tylenol -) 650 mg PO Q6H PRN PRN Reason: FEVER Last Admin: 11/29/17 10:18 Dose: 650 mg Acetaminophen (Ofirmev Injection -) 1,000 mg IVPB Q6H PRN PRN Reason: FEVER Last Admin: 11/26/17 17:31 Dose: 1,000 mg Albuterol/Ipratropium (Duoneb -) 1 amp NEB RQID [facility] Last Admin: 11/29/17 11:54 Dose: 1 amp Alprazolam (Xanax -) 0.5 mg PO Q8H PRN PRN Reason: ANXIETY Last Admin: 11/29/17 02:03 Dose: 0.5 mg Apixaban (Eliquis -) 5 mg PO BID [facility] Last Admin: 11/29/17 10:19 Dose: 5 mg Artificial Tears (Artificial Tears Ointment -) 1 applic OU HS [facility] Last Admin: 11/28/17 21:12 Dose: 1 applic Chlorhexidine Gluconate (Hibiclens For Decolonization -) 1 applic TP HS [facility] Last Admin: 11/28/17 21:10 Dose: 1 applic Ferrous Sulfate (Feosol) 300 mg GT DAILY [facility] Last Admin: 11/29/17 10:19 Dose: 300 mg Insulin Aspart (Novolog Vial Sliding Scale -) 1 vial SQ ACHS [facility] PRN Reason: Protocol Last Admin: 11/29/17 12:33 Dose: Not Given Insulin Detemir (Levemir Vial) 16 units SQ BID@0700,2200 [facility] Last Admin: 11/29/17 06:06 Dose: 16 units Lactobacillus Acidophilus (Bacid -) 1 tab PEG DAILY [facility] Last Admin: 11/29/17 10:19 Dose: 1 tab Metoprolol Tartrate (Lopressor Injection -) 5 mg IVPUSH Q4H PRN PRN Reason: HYPERTENSION Prednisone (Deltasone -) 40 mg PO DAILY [facility] Last Admin: 11/29/17 10:18 Dose: 40 mg Quetiapine Fumarate (Seroquel -) 25 mg PO [facility] Last Admin: 11/28/17 21:11 Dose: 25 mg Ranitidine HCl (Zantac -) 150 mg PO DAILY [facility] Last Admin: 11/29/17 10:19 Dose: 150 mg Roflumilast (Daliresp -) 500 mcg NGT DAILY [facility] Last Admin: 11/29/17 10:19 Dose: 500 mcg Saliva Substitute (Mouthkote Solution -) 1 applic MM DAILY [facility] Last Admin: 11/28/17 10:37 Dose: 1 applic ASSESSMENT AND PLAN: Acute Hypoxic Respiratory Failure s/p Tracheostomy Pneumonia treated Sepsis Interstitial Lung Disease Acute Diastolic Heart Failure improved Acute Kidney Injury Lactic Acidosis resolved DM RLE DVT - monitoring off antibiotics - monitor urine output, creatinine - continue prednisone - anxiolytics, seroquel qHS - enteral feeds - continue anticoagulation, monitor H/H - swallow eval for possible PO intake when respiratory status more stable - taper FiO2 to keep SpO2 >90% - spontaneous breathing trials as tolerated, changed to CPAP/PS - DVT/GI prophylaxis - continue discussions regarding goals of care - continue ICU monitoring for now critical care time spent in reviewing chart, evaluating patient and formulating plan 35 min Problem List - Problems (1) Acute respiratory failure with hypoxia Code(s): J96.01 - ACUTE RESPIRATORY FAILURE WITH HYPOXIA (2) Pneumonia Code(s): J18.9 - PNEUMONIA, UNSPECIFIED ORGANISM (3) Diabetes Code(s): E11.9 - TYPE 2 DIABETES MELLITUS WITHOUT COMPLICATIONS
[2017-11-29] MEDS: LYTES/YERBA SANTA 240 ML BOTTLE MM SCH (13:26)
--- NOTE | 2017-11-29 13:35 | PN ---
Progress Note, Physician History of Present Illness: Pt seen and examined at bedside. His oxygen requirements are improved. - Current Medication List Current Medications: Active Medications Acetaminophen (Tylenol -) 650 mg PO Q6H PRN PRN Reason: FEVER Last Admin: 11/29/17 10:18 Dose: 650 mg Acetaminophen (Ofirmev Injection -) 1,000 mg IVPB Q6H PRN PRN Reason: FEVER Last Admin: 11/26/17 17:31 Dose: 1,000 mg Albuterol/Ipratropium (Duoneb -) 1 amp NEB RQID [facility] Last Admin: 11/29/17 11:54 Dose: 1 amp Alprazolam (Xanax -) 0.5 mg PO Q8H PRN PRN Reason: ANXIETY Last Admin: 11/29/17 02:03 Dose: 0.5 mg Apixaban (Eliquis -) 5 mg PO BID [facility] Last Admin: 11/29/17 10:19 Dose: 5 mg Artificial Tears (Artificial Tears Ointment -) 1 applic OU HS [facility] Last Admin: 11/28/17 21:12 Dose: 1 applic Chlorhexidine Gluconate (Hibiclens For Decolonization -) 1 applic TP HS [facility] Last Admin: 11/28/17 21:10 Dose: 1 applic Ferrous Sulfate (Feosol) 300 mg GT DAILY [facility] Last Admin: 11/29/17 10:19 Dose: 300 mg Insulin Aspart (Novolog Vial Sliding Scale -) 1 vial SQ ACHS [facility] PRN Reason: Protocol Last Admin: 11/29/17 12:33 Dose: Not Given Insulin Detemir (Levemir Vial) 16 units SQ BID@0700,2200 [facility] Last Admin: 11/29/17 06:06 Dose: 16 units Lactobacillus Acidophilus (Bacid -) 1 tab PEG DAILY [facility] Last Admin: 11/29/17 10:19 Dose: 1 tab Metoprolol Tartrate (Lopressor Injection -) 5 mg IVPUSH Q4H PRN PRN Reason: HYPERTENSION Prednisone (Deltasone -) 40 mg PO DAILY [facility] Last Admin: 11/29/17 10:18 Dose: 40 mg Quetiapine Fumarate (Seroquel -) 25 mg PO HS [facility] Last Admin: 11/28/17 21:11 Dose: 25 mg Ranitidine HCl (Zantac -) 150 mg PO DAILY [facility] Last Admin: 11/29/17 10:19 Dose: 150 mg Roflumilast (Daliresp -) 500 mcg NGT DAILY [facility] Last Admin: 11/29/17 10:19 Dose: 500 mcg Saliva Substitute (Mouthkote Solution -) 1 applic MM DAILY [facility] Last Admin: 11/29/17 13:26 Dose: Not Given - Objective Vital Signs: Vital Signs Temperature 99.2 F 11/29/17 10:00 Pulse Rate 112 H 11/29/17 10:00 Respiratory Rate 26 H 11/29/17 11:51 Blood Pressure 128/61 11/29/17 10:00 O2 Sat by Pulse Oximetry (%) 98 11/29/17 07:00 Constitutional: Yes: Anxious Cardiovascular: Yes: S1, S2 Gastrointestinal: Yes: Soft, Other (peg) Genitourinary: Yes: Incontinence Musculoskeletal: Yes: Muscle Weakness Edema: No Neurological: Yes: Oriented Labs: CBC, BMP 11/29/17 05:35 11/29/17 05:35 INR, PTT INR 1.19 (0.82-1.09) H 11/29/17 05:35 Problem List - Problems (1) Hypernatremia Code(s): E87.0 - HYPEROSMOLALITY AND HYPERNATREMIA (2) MIRLANDE (acute kidney injury) Code(s): N17.9 - ACUTE KIDNEY FAILURE, UNSPECIFIED (3) Acute respiratory failure with hypoxia Code(s): J96.01 - ACUTE RESPIRATORY FAILURE WITH HYPOXIA (4) Diabetes Code(s): E11.9 - TYPE 2 DIABETES MELLITUS WITHOUT COMPLICATIONS (5) Failure to thrive Code(s): [id number] - Assessment/Plan Current Medications Generic Name Dose Route Start Last Admin Trade Name Freq PRN Reason Stop Dose Admin Acetaminophen 650 mg 11/22/17 23:20 11/29/17 10:18 Tylenol - PO 650 mg Q6H PRN Administration FEVER Acetaminophen 1,000 mg 11/22/17 23:20 11/26/17 17:31 Ofirmev Injection - IVPB 1,000 mg Q6H PRN Administration FEVER Albuterol/Ipratropium 1 amp 11/23/17 08:00 11/29/17 11:54 Duoneb - NEB 1 amp RQID [facility] Administration Alprazolam 0.5 mg 11/23/17 11:38 11/29/17 02:03 Xanax - PO 0.5 mg Q8H PRN Administration ANXIETY Apixaban 5 mg 11/23/17 10:00 11/29/17 10:19 Eliquis - PO 5 mg BID [facility] Administration Artificial Tears 1 applic 11/23/17 22:00 11/28/17 21:12 Artificial Tears Ointment - OU 1 applic HS [facility] Administration Chlorhexidine Gluconate 1 applic 11/22/17 22:00 11/28/17 21:10 Hibiclens For Decolonization - TP 1 applic HS [facility] Administration Ferrous Sulfate 300 mg 11/23/17 10:00 11/29/17 10:19 Feosol GT 300 mg DAILY [facility] Administration Insulin Aspart 1 vial 11/23/17 07:00 11/29/17 12:33 Novolog Vial Sliding Scale - SQ Not Given ACHS [facility] Protocol Insulin Detemir 16 units 11/26/17 08:34 11/29/17 06:06 Levemir Vial SQ 16 units BID@0700,2200 [facility] Administration Lactobacillus Acidophilus 1 tab 11/23/17 10:00 11/29/17 10:19 Bacid - PEG 1 tab DAILY [facility] Administration Metoprolol Tartrate 5 mg 11/22/17 23:20 Lopressor Injection - IVPUSH Q4H PRN HYPERTENSION Prednisone 40 mg 11/23/17 10:00 11/29/17 10:18 Deltasone - PO 40 mg DAILY [facility] Administration Quetiapine Fumarate 25 mg 11/23/17 22:00 11/28/17 21:11 Seroquel - PO 25 mg HS [facility] Administration Ranitidine HCl 150 mg 11/23/17 10:00 11/29/17 10:19 Zantac - PO 150 mg DAILY [facility] Administration Roflumilast 500 mcg 11/23/17 10:00 11/29/17 10:19 Daliresp - NGT 500 mcg DAILY [facility] Administration Saliva Substitute 1 applic 11/23/17 10:00 11/29/17 13:26 Mouthkote Solution - MM Not Given DAILY [facility] Impression 1. MIRLANDE 2. hypernatremia 3. chronic resp failure s/p trache 4. s/p trache 5. s/p peg 6. sepsis 7. interstitial lung disease 8. chf diastolic 9. DM 10. lactic acidosis 11. PNA Plan - monitor sodium levels - vent support - pulmonary follow up - avoid fluids for now - monitor pulse ox - sodium worsening, increase free water - vent support Dr Gan
--- NOTE | 2017-11-29 13:37 | PN ---
Progress Note, Physician History of Present Illness: patient seen and examined at bedside no complaints changes to NIPPV overnight with good tidal volumes / - Current Medication List Current Medications: Active Medications Acetaminophen (Tylenol -) 650 mg PO Q6H PRN PRN Reason: FEVER Last Admin: 11/29/17 10:18 Dose: 650 mg Acetaminophen (Ofirmev Injection -) 1,000 mg IVPB Q6H PRN PRN Reason: FEVER Last Admin: 11/26/17 17:31 Dose: 1,000 mg Albuterol/Ipratropium (Duoneb -) 1 amp NEB RQID [facility] Last Admin: 11/29/17 11:54 Dose: 1 amp Alprazolam (Xanax -) 0.5 mg PO Q8H PRN PRN Reason: ANXIETY Last Admin: 11/29/17 02:03 Dose: 0.5 mg Apixaban (Eliquis -) 5 mg PO BID [facility] Last Admin: 11/29/17 10:19 Dose: 5 mg Artificial Tears (Artificial Tears Ointment -) 1 applic OU HS [facility] Last Admin: 11/28/17 21:12 Dose: 1 applic Chlorhexidine Gluconate (Hibiclens For Decolonization -) 1 applic TP HS [facility] Last Admin: 11/28/17 21:10 Dose: 1 applic Ferrous Sulfate (Feosol) 300 mg GT DAILY [facility] Last Admin: 11/29/17 10:19 Dose: 300 mg Insulin Aspart (Novolog Vial Sliding Scale -) 1 vial SQ ACHS [facility] PRN Reason: Protocol Last Admin: 11/29/17 12:33 Dose: Not Given Insulin Detemir (Levemir Vial) 16 units SQ BID@0700,2200 [facility] Last Admin: 11/29/17 06:06 Dose: 16 units Lactobacillus Acidophilus (Bacid -) 1 tab PEG DAILY [facility] Last Admin: 11/29/17 10:19 Dose: 1 tab Metoprolol Tartrate (Lopressor Injection -) 5 mg IVPUSH Q4H PRN PRN Reason: HYPERTENSION Prednisone (Deltasone -) 40 mg PO DAILY [facility] Last Admin: 11/29/17 10:18 Dose: 40 mg Quetiapine Fumarate (Seroquel -) 25 mg PO HS [facility] Last Admin: 11/28/17 21:11 Dose: 25 mg Ranitidine HCl (Zantac -) 150 mg PO DAILY [facility] Last Admin: 11/29/17 10:19 Dose: 150 mg Roflumilast (Daliresp -) 500 mcg NGT DAILY [facility] Last Admin: 11/29/17 10:19 Dose: 500 mcg Saliva Substitute (Mouthkote Solution -) 1 applic MM DAILY [facility] Last Admin: 11/29/17 13:26 Dose: Not Given - Objective Vital Signs: Vital Signs Temperature 99.2 F 11/29/17 10:00 Pulse Rate 112 H 11/29/17 10:00 Respiratory Rate 26 H 11/29/17 11:51 Blood Pressure 128/61 11/29/17 10:00 O2 Sat by Pulse Oximetry (%) 98 11/29/17 07:00 Constitutional: Yes: Cachectic Eyes: Yes: Conjunctiva Clear HENT: Yes: Atraumatic Neck: Yes: Supple Cardiovascular: Yes: Tachycardia, S1, S2 Respiratory: Yes: Rhonchi (bilaterally) Gastrointestinal: Yes: Soft. No: Tenderness Genitourinary: Yes: Other (condom catheter in place) Edema: No Neurological: Yes: Alert Labs: CBC, BMP 11/29/17 05:35 11/29/17 05:35 INR, PTT INR 1.19 (0.82-1.09) H 11/29/17 05:35 - ....Imaging Chest X-ray: Report Reviewed, Image Reviewed Assessment/Plan Patient is a 62 year old male who was BIBEMS for hypoxic respiratory failure placed now in between BiPap and HFNC, eating food, off of pressers, but with RLE DVT without PE as/p IVC filter and thrombectomy with catheter directed heparin infusion Neuro: continue seroquel continue xanax for agitation CV: patient remains tachycardic continue eliquis for DVT cotninue PRN metoprolol septic shock resolved Pulmonary: patient remains with tracheostomy Stoma is large has large amount of thick secretions continue bronchodilators cotninue prednisone continue daliresp continue to try to taper FiO2 ID: off Abx Renal/: continue flomax for BPH Heme: Hb remains stable continue to monitor Endo NIDDM -BGM -ISS GI: Peptic Ulcer Disease continue GI PPx FEN continue tube feeds no electrolyte abnormailites PPX: continue eliquis continue GI PPx zantac Case discussed with attending Dr. Lara
--- NOTE | 2017-11-29 17:38 | PN ---
Physical Exam: SUBJECTIVE: Patient seen and examined changed to NIPPV overnight with good tidal volumes 22/5. Pt not complaining of anything this am. OBJECTIVE: Vital Signs Period Temp Pulse Resp BP Sys/Sutton Pulse Ox Last 24 Hr 98.0 F-99.2 F 97-115 17-36 101-134/56-70 96-100 GENERAL: cachectic elderly male, vented, in NAD HEENT: trach site with thick secretions coming out of stoma LUNGS: mechanical breath sounds, no rales or rhonchi appreciated HEART: difficult to assess over mechanical breath sounds ABDOMEN: scaphoid abdomen, soft, NT, mesh from hernia surgery is easily palpable EXTREMITIES: 2+ pulses, warm, well-perfused, no edema, emaciated. hands in todd mittens NEUROLOGICAL: Cranial nerves II through XII grossly intact Laboratory Results - last 24 hr 11/28/1718 11/28/17 05:40 11:22 18:08 WBC RBC Hgb Hct MCV MCH MCHC RDW Plt Count MPV Neutrophils % Lymphocytes % Monocytes % Eosinophils % Basophils % PT with INR INR PTT (Actin FS) Puncture Site ABG pH ABG pCO2 at Pt Temp ABG pO2 at Pt Temp ABG HCO3 ABG O2 Sat (Measured) ABG O2 Content ABG Base Excess Dionte Test Oxygen Flow Rate Vent Mode Vent Rate PEEP Pressure Support Vent Sodium Potassium Chloride Carbon Dioxide Anion Gap BUN Creatinine Creat Clearance w eGFR POC Glucometer 121.08560 110.99386 176.89270 Random Glucose Calcium Phosphorus Magnesium Total Bilirubin AST ALT Alkaline Phosphatase Total Protein Albumin 11/28/17 11/29/17 11/29/17 21:21 05:35 05:35 WBC 6.9 D RBC 2.56 L Hgb 8.2 L Hct 26.1 L MCV 101.9 H MCH 32.0 MCHC 31.4 L RDW 16.5 H Plt Count 110 L D MPV 12.0 H Neutrophils % 76.3 Lymphocytes % 14.6 D Monocytes % 8.4 Eosinophils % 0.5 D Basophils % 0.2 PT with INR 13.40 H INR 1.19 H PTT (Actin FS) 29.3 Puncture Site ABG pH ABG pCO2 at Pt Temp ABG pO2 at Pt Temp ABG HCO3 ABG O2 Sat (Measured) ABG O2 Content ABG Base Excess Dionte Test Oxygen Flow Rate Vent Mode Vent Rate PEEP Pressure Support Vent Sodium Potassium Chloride Carbon Dioxide Anion Gap BUN Creatinine Creat Clearance w eGFR POC Glucometer 171.54084 Random Glucose Calcium Phosphorus Magnesium Total Bilirubin AST ALT Alkaline Phosphatase Total Protein Albumin 11/29/17 11/29/17 11/29/17 05:35 05:50 06:30 WBC RBC Hgb Hct MCV MCH MCHC RDW Plt Count MPV Neutrophils % Lymphocytes % Monocytes % Eosinophils % Basophils % PT with INR INR PTT (Actin FS) Puncture Site Right radial ABG pH 7.37 ABG pCO2 at Pt Temp 81.1 H* ABG pO2 at Pt Temp 121.0 H D ABG HCO3 45.7 H* ABG O2 Sat (Measured) 99.3 H ABG O2 Content 11.6 L ABG Base Excess 18.1 H* Dionte Test Positive Oxygen Flow Rate 85% Vent Mode A/c Vent Rate 14 PEEP 8.0 Pressure Support Vent 450 Sodium 149 H Potassium 4.6 Chloride 101 Carbon Dioxide 48 H Anion Gap 0 L BUN 45 H Creatinine 0.7 Creat Clearance w eGFR > 60 POC Glucometer 129.74713 Random Glucose 99 Calcium 9.5 Phosphorus 4.1 D Magnesium 2.9 H D Total Bilirubin 0.3 D AST 26 D ALT 29 D Alkaline Phosphatase 128 H Total Protein 7.7 Albumin 2.0 L 11/29/17 12:32 WBC RBC Hgb Hct MCV MCH MCHC RDW Plt Count MPV Neutrophils % Lymphocytes % Monocytes % Eosinophils % Basophils % PT with INR INR PTT (Actin FS) Puncture Site ABG pH ABG pCO2 at Pt Temp ABG pO2 at Pt Temp ABG HCO3 ABG O2 Sat (Measured) ABG O2 Content ABG Base Excess Dionte Test Oxygen Flow Rate Vent Mode Vent Rate PEEP Pressure Support Vent Sodium Potassium Chloride Carbon Dioxide Anion Gap BUN Creatinine Creat Clearance w eGFR POC Glucometer 163.60569 Random Glucose Calcium Phosphorus Magnesium Total Bilirubin AST ALT Alkaline Phosphatase Total Protein Albumin Active Medications Generic Name Dose Route Start Last Admin Trade Name Freq PRN Reason Stop Dose Admin Acetaminophen 650 mg 11/22/17 23:20 11/29/17 10:18 Tylenol - PO 650 mg Q6H PRN Administration FEVER Acetaminophen 1,000 mg 11/22/17 23:20 11/26/17 17:31 Ofirmev Injection - IVPB 1,000 mg Q6H PRN Administration FEVER Albuterol/Ipratropium 1 amp 11/23/17 08:00 11/29/17 16:23 Duoneb - NEB 1 amp RQID SONAL Administration Alprazolam 0.5 mg 11/23/17 11:38 11/29/17 02:03 Xanax - PO 0.5 mg Q8H PRN Administration ANXIETY Apixaban 5 mg 11/23/17 10:00 11/29/17 10:19 Eliquis - PO 5 mg BID SONAL Administration Artificial Tears 1 applic 11/23/17 22:00 11/28/17 21:12 Artificial Tears Ointment - OU 1 applic HS SONAL Administration Chlorhexidine Gluconate 1 applic 11/22/17 22:00 11/28/17 21:10 Hibiclens For Decolonization - TP 1 applic HS SONAL Administration Ferrous Sulfate 300 mg 11/23/17 10:00 11/29/17 10:19 Feosol GT 300 mg DAILY SONAL Administration Insulin Aspart 1 vial 11/23/17 07:00 11/29/17 12:33 Novolog Vial Sliding Scale - SQ Not Given ACHS [facility] Protocol Insulin Detemir 16 units 11/26/17 08:34 11/29/17 06:06 Levemir Vial SQ 16 units BID@0700,2200 SONAL Administration Lactobacillus Acidophilus 1 tab 11/23/17 10:00 11/29/17 10:19 Bacid - PEG 1 tab DAILY SONAL Administration Metoprolol Tartrate 5 mg 11/22/17 23:20 Lopressor Injection - IVPUSH Q4H PRN HYPERTENSION Prednisone 40 mg 11/23/17 10:00 11/29/17 10:18 Deltasone - PO 40 mg DAILY SONAL Administration Quetiapine Fumarate 25 mg 11/23/17 22:00 11/28/17 21:11 Seroquel - PO 25 mg HS SONAL Administration Ranitidine HCl 150 mg 11/23/17 10:00 11/29/17 10:19 Zantac - PO 150 mg DAILY SONAL Administration Roflumilast 500 mcg 11/23/17 10:00 11/29/17 10:19 Daliresp - NGT 500 mcg DAILY SONAL Administration Saliva Substitute 1 applic 11/23/17 10:00 11/29/17 13:26 Mouthkote Solution - MM Not Given DAILY SONAL ASSESSMENT/PLAN: 62M w/ hx of active smoking, NIDDM, PUD, and BPH who presented with SOB, found to have acute hypoxic respiratory failure, extensive RLE DVT, sepsis likely 2/2 aspiration PNA, and acute diastolic CHF. #Acute hypoxic respiratory failure -suspect from ILD with pneumonitis, s/p intubation 11/03 with failed weaning and now s/p trach 11/07. trach exchanged 11/19. no gross signs of tracheomalacia. unable to titrate down FiO2. currently on FiO2 85%. -goal SpO2 >88% -continue prednisone 40mg #RLE DVT -s/p IVC filter 10/20, thrombectmy 10/24 -continue eliquis 5mg BID, monitor for bleeding #Sepsis -due to suspected aspiration PNA, already received abx course x2 -leukocytosis: 11.3--> 17.6--> 11.3--> 6.9 -afebrile, + secretions from stoma on physical exam -cont deep frequent suctioning #Acute diastolic heart failure -s/p intermittent lasix IV. clinically euvolemic. will hold for now #Iron deficiency anemia and anemia of chronic disease -possible due to frequent blood draws and comorbidities - s/p 1 unit PRBC this hospital stay -cont iron supplementation #Hypernatremia -Na of 149 today -increased free water flushes -continue to monitor #antibiotic assoc Diarrhea -likely due to prolonged abx use, now resolved -continue bacid and banatol. #continuous nicotine dependence -nicotine patch #cachexia -severe malnutrition evident by body habitus. lost 40+lbs this hospital stay. s/p PEG 11/09. -tolerating TF #DM -improved -cont levemir 16 units BID -cont to titrate as needed. #Agitation -intermittent periods of agitation -continue seroquel HS -per nurse, todd mittens required because pt tries to pull out lines and tubes when he gets hypoxic and restless. #FEN/PPX -water flush tube feeds -correct Na -tube feeds -ranitidine -eliquis #Dispo -Poor overall prognosis. Unable to titrate down Fio2, not candidate for tertiary care center as no other management available at this time. palliative care on board Case discussed with attending, Dr. Ramirez. -Russell Anderson MD PGY1 Visit type - Emergency Visit Emergency Visit: Yes ED Registration Date: 10/17/17 Care time: The patient presented to the Emergency Department on the above date and was hospitalized for further evaluation of their emergent condition. - New Patient This patient is new to me today: No - Critical Care Critical Care patient: Yes Total Critical Care Time (in minutes): 35 Critical Care Statement: The care of this patient involved high complexity decision making to prevent further life threatening deterioration of the patient 's condition and/or to evaluate & treat vital organ system(s) failure or risk of failure.
--- NOTE | 2017-11-29 18:35 | PN ---
Teaching Attending Note Name of Resident: Russell Anderson ATTENDING PHYSICIAN STATEMENT Time of evaluation: 10:40 AM I saw and evaluated the patient. I reviewed the resident's note and discussed the case with the resident. I agree with the resident's findings and plan as documented. SUBJECTIVE: patient seen and examined, awake, reports no new symptoms. Overall unchanged, no new pain. OBJECTIVE: Vital Signs Period Temp Pulse Resp BP Sys/Sutton Pulse Ox Last 24 Hr 98.0 F-99.2 F 97-115 17-36 101-134/56-70 96-100 Intake & Output 11/26/17 11/27/17 11/28/17 11/29/17 23:59 23:59 23:59 23:59 Intake Total 2500 2100 2140 1600 Output Total 2550 500 600 700 Balance -50 1600 1540 900 Weight 98 lb 3.2 oz 82 lb 3.719 oz 81 lb 6.4 oz 80 lb 6.4 oz general: sitting in bed, no acute distress Neck: stoma large, thick secretions around the tracheostomy tube, suctioned Abdomen: soft, scaphoid, NT extremities: cachectic, no edema Home Medication List Medication Instructions Recorded Confirmed Type Glipizide [Glucotrol Xl] 0 mg PO ASDIR 10/17/17 10/17/17 History Metformin HCl 0 mg PO ASDIR 10/17/17 10/17/17 History Tamsulosin HCl 0.4 mg PO DAILY 10/17/17 10/17/17 History Active Medications Generic Name Dose Route Start Last Admin Trade Name Freq PRN Reason Stop Dose Admin Acetaminophen 650 mg 11/22/17 23:20 11/29/17 10:18 Tylenol - PO 650 mg Q6H PRN Administration FEVER Acetaminophen 1,000 mg 11/22/17 23:20 11/26/17 17:31 Ofirmev Injection - IVPB 1,000 mg Q6H PRN Administration FEVER Albuterol/Ipratropium 1 amp 11/23/17 08:00 11/29/17 16:23 Duoneb - NEB 1 amp RQID SONAL Administration Alprazolam 0.5 mg 11/23/17 11:38 11/29/17 02:03 Xanax - PO 0.5 mg Q8H PRN Administration ANXIETY Apixaban 5 mg 11/23/17 10:00 11/29/17 10:19 Eliquis - PO 5 mg BID SONAL Administration Artificial Tears 1 applic 11/23/17 22:00 11/28/17 21:12 Artificial Tears Ointment - OU 1 applic HS SONAL Administration Chlorhexidine Gluconate 1 applic 11/22/17 22:00 11/28/17 21:10 Hibiclens For Decolonization - TP 1 applic HS SONAL Administration Ferrous Sulfate 300 mg 11/23/17 10:00 11/29/17 10:19 Feosol GT 300 mg DAILY SONAL Administration Insulin Aspart 1 vial 11/23/17 07:00 11/29/17 12:33 Novolog Vial Sliding Scale - SQ Not Given ACHS SONAL Protocol Insulin Detemir 16 units 11/26/17 08:34 11/29/17 06:06 Levemir Vial SQ 16 units BID@0700,2200 SONAL Administration Lactobacillus Acidophilus 1 tab 11/23/17 10:00 11/29/17 10:19 Bacid - PEG 1 tab DAILY SONAL Administration Metoprolol Tartrate 5 mg 11/22/17 23:20 Lopressor Injection - IVPUSH Q4H PRN HYPERTENSION Prednisone 40 mg 11/23/17 10:00 11/29/17 10:18 Deltasone - PO 40 mg DAILY SONAL Administration Quetiapine Fumarate 25 mg 11/23/17 22:00 11/28/17 21:11 Seroquel - PO 25 mg HS SONAL Administration Ranitidine HCl 150 mg 11/23/17 10:00 11/29/17 10:19 Zantac - PO 150 mg DAILY SONAL Administration Roflumilast 500 mcg 11/23/17 10:00 11/29/17 10:19 Daliresp - NGT 500 mcg DAILY SONAL Administration Saliva Substitute 1 applic 11/23/17 10:00 11/29/17 13:26 Mouthkote Solution - MM Not Given DAILY SONAL Laboratory Results - last 24 hr 11/28/17 11/28/17 11/28/17 05:40 11:22 18:08 WBC RBC Hgb Hct MCV MCH MCHC RDW Plt Count MPV Neutrophils % Lymphocytes % Monocytes % Eosinophils % Basophils % PT with INR INR PTT (Actin FS) Puncture Site ABG pH ABG pCO2 at Pt Temp ABG pO2 at Pt Temp ABG HCO3 ABG O2 Sat (Measured) ABG O2 Content ABG Base Excess Dionte Test Oxygen Flow Rate Vent Mode Vent Rate PEEP Pressure Support Vent Sodium Potassium Chloride Carbon Dioxide Anion Gap BUN Creatinine Creat Clearance w eGFR POC Glucometer 121.98637 110.04241 176.95152 Random Glucose Calcium Phosphorus Magnesium Total Bilirubin AST ALT Alkaline Phosphatase Total Protein Albumin 11/28/17 11/29/17 11/29/17 21:21 05:35 05:35 WBC 6.9 D RBC 2.56 L Hgb 8.2 L Hct 26.1 L MCV 101.9 H MCH 32.0 MCHC 31.4 L RDW 16.5 H Plt Count 110 L D MPV 12.0 H Neutrophils % 76.3 Lymphocytes % 14.6 D Monocytes % 8.4 Eosinophils % 0.5 D Basophils % 0.2 PT with INR 13.40 H INR 1.19 H PTT (Actin FS) 29.3 Puncture Site ABG pH ABG pCO2 at Pt Temp ABG pO2 at Pt Temp ABG HCO3 ABG O2 Sat (Measured) ABG O2 Content ABG Base Excess Dionte Test Oxygen Flow Rate Vent Mode Vent Rate PEEP Pressure Support Vent Sodium Potassium Chloride Carbon Dioxide Anion Gap BUN Creatinine Creat Clearance w eGFR POC Glucometer 171.67114 Random Glucose Calcium Phosphorus Magnesium Total Bilirubin AST ALT Alkaline Phosphatase Total Protein Albumin 11/29/17 11/29/17 11/29/17 05:35 05:50 06:30 WBC RBC Hgb Hct MCV MCH MCHC RDW Plt Count MPV Neutrophils % Lymphocytes % Monocytes % Eosinophils % Basophils % PT with INR INR PTT (Actin FS) Puncture Site Right radial ABG pH 7.37 ABG pCO2 at Pt Temp 81.1 H* ABG pO2 at Pt Temp 121.0 H D ABG HCO3 45.7 H* ABG O2 Sat (Measured) 99.3 H ABG O2 Content 11.6 L ABG Base Excess 18.1 H* Dionte Test Positive Oxygen Flow Rate 85% Vent Mode A/c Vent Rate 14 PEEP 8.0 Pressure Support Vent 450 Sodium 149 H Potassium 4.6 Chloride 101 Carbon Dioxide 48 H Anion Gap 0 L BUN 45 H Creatinine 0.7 Creat Clearance w eGFR > 60 POC Glucometer 129.81362 Random Glucose 99 Calcium 9.5 Phosphorus 4.1 D Magnesium 2.9 H D Total Bilirubin 0.3 D AST 26 D ALT 29 D Alkaline Phosphatase 128 H Total Protein 7.7 Albumin 2.0 L 11/29/17 12:32 WBC RBC Hgb Hct MCV MCH MCHC RDW Plt Count MPV Neutrophils % Lymphocytes % Monocytes % Eosinophils % Basophils % PT with INR INR PTT (Actin FS) Puncture Site ABG pH ABG pCO2 at Pt Temp ABG pO2 at Pt Temp ABG HCO3 ABG O2 Sat (Measured) ABG O2 Content ABG Base Excess Dionte Test Oxygen Flow Rate Vent Mode Vent Rate PEEP Pressure Support Vent Sodium Potassium Chloride Carbon Dioxide Anion Gap BUN Creatinine Creat Clearance w eGFR POC Glucometer 163.01361 Random Glucose Calcium Phosphorus Magnesium Total Bilirubin AST ALT Alkaline Phosphatase Total Protein Albumin Microbiology 11/18/17 21:30 Stool Clostridium difficile Antigen (CHUY) - Final 11/18/17 21:30 Stool Clostridium difficile Toxin Assay - Final 11/13/17 17:30 Blood - Peripheral Venous Blood Culture - Final NO GROWTH AFTER 5 DAYS INCUBATION 11/13/17 17:10 Blood - Peripheral Venous Blood Culture - Final NO GROWTH AFTER 5 DAYS INCUBATION 11/14/17 14:30 Sputum - Endotrachea Suction/Ventilator Gram Stain - Final 11/14/17 14:30 Sputum - Endotrachea Suction/Ventilator Sputum Culture - Final Klebsiella Pneumoniae 11/14/17 22:00 Urine - Urine Clean Catch Urine Culture - Final Yeast Like Organism 11/15/17 11:00 Nasopharyngeal Swab Influenza Types A,B Antigen (CHUY) - Final 11/15/17 11:00 Nasopharyngeal Swab - Final 10/21/17 06:00 Serum Cryptococcal Antigen - Final 10/19/17 19:30 Sputum - Expectorated Gram Stain - Final 10/19/17 19:30 Sputum - Expectorated Sputum Culture - Final NORMAL RESPIRATORY TOYIN 10/17/17 10:10 Blood - Peripheral Venous Blood Culture - Final NO GROWTH AFTER 5 DAYS INCUBATION 10/17/17 10:10 Blood - Peripheral Venous Blood Culture - Final NO GROWTH AFTER 5 DAYS INCUBATION 10/17/17 13:57 Urine - Urine Clean Catch Urine Culture - Final NO GROWTH OBTAINED 10/17/17 13:57 Urine For Antigen Detection Legionella Antigen - Final 10/17/17 13:57 Urine For Antigen Detection Streptococcus pneumoniae Antigen (M - Final 10/17/17 10:25 Nasopharyngeal Swab Influenza Types A,B Antigen (CHUY) - Final 10/17/17 10:25 Nasopharyngeal Swab - Final ASSESSMENT AND PLAN: 62 yo M active smoker, pMHx of NIDDM, PUD, BPH admitted with acute hypoxic respiratory failure, and extensive RLE DVT -Acute hypoxic respiratory failure, suspect from ?ILD with pneumonitis s/p intubation 11/03, trach 11/07, exchanged 11/11 for cuff, now recurrent worsening respiratory failure, suspected aspiration PNA with sepsis -Extensive RLE Acute DVT, s/p IVC filter 10/20, thrombectomy 10/24 - Acute diastolic heart failure -Sepsis on admission, likely from PNA, now recurrent concerns for aspiration PNA -Lactic acidosis, from sepsis vs increased work of breathing, resolved -MIRLANDE on admission from sepsis, now recurrent, ?Sepsis, vs ATN , obstructive process ruled out -Hypernatremia, likely hypovolumic -Thrombocytopenia -Elevated INR -Chest wall and right sided abdominal pain -NIDDM -PUD -BPH -Cachexia/malnutrition -Unwitnessed fall 11/19/2017 Plan: Trach changed and transferred back to ICU, unable to bring FiO2 down, currently at 85%. Not a candidate for transfer to [place] as per reports. Stoma large, suctioned. Discuss with Dr. Rosario and Dr. Lara for additional options. Overall prognosis poor. Has been on 2 courses of antibiotics (7 days of ceftriaxone/azithromycin and 8 days of zosyn for possible aspiration), off antibiotics now, will monitor. Calmer on seroquel and xanax, Frequent suctioning, aspiration precautions. Trach cuff leak, s/p extended trach placed 11/14, trach changed again on 11/22 for broken cuff. Continue prednisone per pulmonary. ?ILD with pneumonitis, unclear etiology, On Eliquis, hold for procedure as indicated. Renal ultrasound/nephrology input/Urine lytes noted. Renal function improved. s/p PEG 11/09 Follow up speech/swallow eval as able. Intermittent agitation, 2 point restraints as pulls at the vent, usually in the evenings, suspect . Platelets improved. Replete lytes prn. Ac 7.4, ISS, hold oral hypoglycemics. Levemir 16 units BID, titrate based on blood sugars. Continue flomax. Nicotine patch Plan discussed with nursing. Not a candidate for transfer to [place] as discussed. Continue to follow up with CM. Overall poor prognosis given still with High FiO2 requirements and tenuous respiratory status. Will continue to address overall goals with patient and family. discuss with social work to address possible LTACH placement with insurance again. Total critical care time spent in ICU 35 min.
--- NOTE | 2017-11-29 19:12 | PN ---
Progress Note (short form) - Note Progress Note: Patient's saturation dropped to mid 80's on Fio2 70 %. Patient had sweating over the face, complained of left sided chest pain. Plan: EKG stat; Cardiac enzymes stat. 9:55 pm: Troponin 0.07, will repeat it and monitor for chest pain. He is asymptomatic at this time, no chest pain, sob, palpitation, sweating. Resting comfortably. EKG is attached in the chart.
[2017-11-29] MEDS: CHLORHEXIDINE GLUCONATE 4% CLEANSER FOR DECOLONIZATION TP SCH (21:18)
[2017-11-29] MEDS: QUEtiapine FUMARATE 25 MG TABLET (FP) PO SCH (21:18)
[2017-11-29] MEDS: MINERAL OIL/PETROLATUM,WHITE 3.5 GM TUBE OU SCH (21:37)
[2017-11-30] MEDS: BANATROL PLUS POWDER PACKET PEG SCH ×3 (05:04→21:43)
[2017-11-30] MEDS: INSULIN DETEMIR 100 UNITS/ML MDV SQ SCH ×2 (06:24→21:48)
[2017-11-30] MEDS: INSULIN SLIDING SCALE (NOVOLOG) 1 VIAL SQ SCH ×4 (06:24→21:44)
[2017-11-30 06:44] LABS: BASO % 0.2 % (0-2.0); EOS % 0.3 % (0-4.5); HEMATOCRIT 26.8 % (35.4-49); HEMOGLOBIN 8.5 GM/dL (11.7-16.9); LYMPH % 12.2 % (8-40); MCH 32.4 pg (25.7-33.7); MCHC 31.6 g/dl (32.0-35.9); MEAN CELL VOLUME 102.6 fl (80-96); MEAN PLT VOLUME 12.4 fl (7.5-11.1); MONO % 10.3 % (3.8-10.2); PLATELET COUNT 123 K/MM3 (134-434); RBC 2.61 M/mm3 (4.00-5.60); RDW 16.5 % (11.9-15.9); WHITE BLOOD COUNT 7.5 K/mm3 (4.0-10.0)
[2017-11-30 06:55] LABS: ARTERIAL BLD GAS O2 SATURATION 98.4 % (90-98.9); ARTERIAL BLOOD GAS BASE EXCESS 17.7 meq/l (-2-2); ARTERIAL BLOOD GAS pH 7.29 (7.35-7.45)
[2017-11-30 06:59] LABS: ALLENS TEST POSITIVE
[2017-11-30 07:06] LABS: ARTERIAL BLOOD GAS PCO2 99.4 mmHg (35-45)
[2017-11-30 07:10] LABS: ALBUMIN 2.2 g/dl (3.4-5.0); BLOOD UREA NITROGEN 40 mg/dL (7-18); CALCIUM 8.5 mg/dL (8.5-10.1); CHLORIDE 99 mmol/L (98-107); GLUCOSE,RANDOM 151 mg/dL (74-106); PHOSPHOROUS 4.4 mg/dL (2.5-4.9); POTASSIUM 5.1 mmol/L (3.5-5.1); SGOT/AST 23 U/L (15-37); SGPT/ALT 40 U/L (12-78); SODIUM 144 mmol/L (136-145)
[2017-11-30 07:12] LABS: ALK PHOS 140 U/L (45-117); BILIRUBIN,TOTAL 0.4 mg/dL (0.2-1.0); CREATININE 0.7 mg/dL (0.7-1.3); MAGNESIUM 2.5 mg/dL (1.8-2.4); TOT PROT 7.7 g/dl (6.4-8.2)
[2017-11-30 07:14] LABS: ACTIVATED PTT 28.4 SECONDS (26.9-34.4)
[2017-11-30 07:17] LABS: INR 1.12 (0.82-1.09); PROTHROMBIN TIME (PATIENT) 12.6 SEC (9.98-11.88)
[2017-11-30] MEDS: ALBUTEROL SO4 2.5/IPRATROPIUM 0.5 INH SOL 3 ML VIAL.NEB. NEB SCH ×4 (07:30→20:20)
[2017-11-30 07:48] LABS: ANION GAP -3 (8-16); CO2 48 mmol/L (21-32)
--- NOTE | 2017-11-30 08:44 | PN ---
Progress Note, Physician History of Present Illness: 24 hour events: Placed on CPAP instead of AC and tolerated it well at 90% most of the night but then slight tachypnea this morning after repositioning, persistent, switched back to AC. Primary team reporting continued secretions from trach stoma. Attempted to go down to 80% FiO2 and patient desatted to 91%, back up to 90%. Last NOC patient became diaphoretic, c/o chest pain, dr jacques attended, ordered stat ekg, lab trop. ekg no changes. trop 0.07, md aware, denies any chest discomfort at this time. Repeat this morning is trop 0.09. This morning ABG with PCO2 of 99.4 on CPAP at 90% FiO2. (Worst it has been this hospitalization). Subjective: Patient reports no pain, no anxiety currently, no SOB or discomfort. 24 HR I/O: I: 2680cc O: 1100cc Net: 1580cc BM: Yes - Current Medication List Current Medications: Active Medications Acetaminophen (Tylenol -) 650 mg PO Q6H PRN PRN Reason: FEVER Last Admin: 11/29/17 10:18 Dose: 650 mg Acetaminophen (Ofirmev Injection -) 1,000 mg IVPB Q6H PRN PRN Reason: FEVER Last Admin: 11/26/17 17:31 Dose: 1,000 mg Albuterol/Ipratropium (Duoneb -) 1 amp NEB RQID [facility] Last Admin: 11/30/17 07:30 Dose: 1 amp Alprazolam (Xanax -) 0.5 mg PO Q8H PRN PRN Reason: ANXIETY Last Admin: 11/29/17 02:03 Dose: 0.5 mg Apixaban (Eliquis -) 5 mg PO BID [facility] Last Admin: 11/29/17 21:46 Dose: 5 mg Artificial Tears (Artificial Tears Ointment -) 1 applic OU HS [facility] Last Admin: 11/29/17 21:37 Dose: 1 applic Chlorhexidine Gluconate (Hibiclens For Decolonization -) 1 applic TP HS [facility] Last Admin: 11/29/17 21:18 Dose: 1 applic Ferrous Sulfate (Feosol) 300 mg GT DAILY [facility] Last Admin: 11/29/17 10:19 Dose: 300 mg Insulin Aspart (Novolog Vial Sliding Scale -) 1 vial SQ ACHS [facility] PRN Reason: Protocol Last Admin: 11/30/17 06:24 Dose: Not Given Insulin Detemir (Levemir Vial) 16 units SQ BID@0700,2200 [facility] Last Admin: 11/30/17 06:24 Dose: 16 units Lactobacillus Acidophilus (Bacid -) 1 tab PEG DAILY [facility] Last Admin: 11/29/17 10:19 Dose: 1 tab Metoprolol Tartrate (Lopressor Injection -) 5 mg IVPUSH Q4H PRN PRN Reason: HYPERTENSION Prednisone (Deltasone -) 40 mg PO DAILY [facility] Last Admin: 11/29/17 10:18 Dose: 40 mg Quetiapine Fumarate (Seroquel -) 25 mg PO HS [facility] Last Admin: 11/29/17 21:18 Dose: 25 mg Ranitidine HCl (Zantac -) 150 mg PO DAILY [facility] Last Admin: 11/29/17 10:19 Dose: 150 mg Roflumilast (Daliresp -) 500 mcg NGT DAILY [facility] Last Admin: 11/29/17 10:19 Dose: 500 mcg Saliva Substitute (Mouthkote Solution -) 1 applic MM DAILY [facility] Last Admin: 11/29/17 13:26 Dose: Not Given - Objective Vital Signs: Vital Signs Temperature 97.9 F 11/30/17 06:00 Pulse Rate 122 H 11/30/17 08:30 Respiratory Rate 29 H 11/30/17 08:30 Blood Pressure 139/70 11/30/17 06:00 O2 Sat by Pulse Oximetry (%) 94 L 11/30/17 08:30 Constitutional: Yes: No Distress, Calm, Thin, Other (alert, answering questions) Eyes: Yes: Conjunctiva Clear, EOM Intact HENT: Yes: Atraumatic, Normocephalic Neck: Yes: Supple, Trachea Midline, Other (trach in place, stoma with secretions ) Cardiovascular: Yes: Tachycardia. No: Pulse Irregular Respiratory: Yes: Regular, Rhonchi, Tachypnea. No: Stridor Gastrointestinal: Yes: Normal Bowel Sounds, Soft Extremities: Yes: Other (muscle atrophy). No: Calf Tenderness, Cold, Cyanosis Edema: Yes (sacral) Integumentary: Yes: WNL Neurological: Yes: WNL, Alert Psychiatric: Yes: WNL, Alert Labs: CBC, BMP 11/30/17 05:25 11/30/17 05:25 INR, PTT INR 1.12 (0.82-1.09) 11/30/17 05:25 - ....Imaging Chest X-ray: Report Reviewed, Image Reviewed, Other (unchanged) EKG: Report Reviewed, Image Reviewed, Other (no ischemic changes) Assessment/Plan 62 YOM with h/o NIDDM, PUD, BPH, long-time smoker, presented initially with hypoxic respiratory failure while eating food, found large DVT to RLE, now s/p IVC filter placed (10/20/17) and thrombectomy (10.24.17), tracheostomy, on ventilator, now off of pressers, but continues to require 100% FiO2 and thus could not be transferred from ICU as planned when bed became available 11/27/17. Neuro: #Nicotine Dependence: -Nicotine patch 7 MG daily #Anxiety -0.5 Xanax q8h for management of anxiety #Agitation -Continue Seroquel 25mg for management of agitation -Alida Palmer (ordered) CV: #Shock, septic vs. cardiogenic vs. iatrogenic, resolved. Source unclear. Off pressors. -NTD #DVT: U/S positive for right calf DVT, s/p thrombectomy -S/P IR direct infusion, doing well -Continue Eliquis #Chest Pain, intermittent. Trop last night and this morning 0.07 and 0.09, respectively. EKG without ischemic changes. -Monitor for recurrence of chest pain Pulm: #Acute Hypoxic Respiratory Failure, improved. Initially thought ARDS vs. CHF given JVD and crackles treated for CAP. ECHO showing mild MR, mild/mod TR, mild pHTN. CT with diffuse interstitial lung disease, serial CXR with e/o congestion /volume overload. Patient was transferred back to the ICU for inability to maintain tidal volumes. Tidal volumes continue to be maintained with new trach tube. -Continue Prednisone 40 daily -Continue scheduled duonebs -Continue daliresp -Hold Lasix for now as patient appears euvolemic -Continue weaning FiO2 with goal <60% which should be met prior to d/c to SNF ID: Likely ILD with GGO vs. infectious pattern. HIV, influenza, strep, legionella neg. BCx NGTD, sputum Cx NGTD. Completed Azithromycin and Ceftriaxone for suspected CAP. Concern for right lower lobe pneumonia. Urine cultures growing yeast. Sputum culture growing lactose fermenting negative bacilli. -Continue to monitor. -ID recs appreciated #Leukocytosis, improved to 11.3 today (down from 17.6 on 11/27) -Continue to monitor CBCD -CXR daily -If patient spikes a fever will need repeat cultures Renal: - CTM - Avoid nephrotoxic medications Heme: #Macrocytic Anemia, persistent. Ferritin 882 (likely reactive) -Hb stable around 8-9. Endo #NIDDM. BG in the 200's -Patient is no longer having hypoglycemic episodes -Will continue to monitor BGM and provide D50 pushes as needed. -ISS : #BPH -Continue tamsulosin 0.4mg daily GI: #Peptic Ulcer Disease: History of mesh according to family and had Endoscopy two months. Was given medications according to patients daughter and completed course. -Continue PPI -Reduced banana flakes to one pack TID per dietitian #Cachexia, chronic. -Continue PEG tube feeds FEN -Electrolytes repleted as needed. -Continue PEG tube feeds. PPX: -Continue Eliquis -Continue ranitidine -PT Lines/Drains/Tubes Feeding tube Tracheostomy tube PIV Disposition: Further ICU care
[2017-11-30] MEDS: APIXABAN 5 MG TABLET PO SCH ×2 (10:51→21:42)
[2017-11-30] MEDS: ROFLUMILAST 500 MCG TABLET NGT SCH (10:51)
[2017-11-30] MEDS: RANITIDINE HCL 150 MG TABLET (FP) PO SCH (10:51)
[2017-11-30] MEDS: predniSONE 20 MG TABLET (UD) PO SCH (10:51)
[2017-11-30] MEDS: LACTOBACILLUS ACIDOPHILUS 1 EACH TAB (FP) PEG SCH (10:51)
[2017-11-30] MEDS: FERROUS SO4 300 MG/5 ML ORAL SOLN UNIT DOSE CUPS GT SCH (10:53)
[2017-11-30] MEDS: LYTES/YERBA SANTA 240 ML BOTTLE MM SCH (10:55)
--- NOTE | 2017-11-30 11:47 | EKG ---
Test Reason : Blood Pressure : / mmHG Vent. Rate : 113 BPM Atrial Rate : 113 BPM P-R Int : 130 ms QRS Dur : 084 ms QT Int : 310 ms P-R-T Axes : 065 076 047 degrees QTc Int : 425 ms SINUS TACHYCARDIA VOLTAGE CRITERIA FOR LEFT VENTRICULAR HYPERTROPHY NONSPECIFIC ST AND T WAVE ABNORMALITY ABNORMAL ECG WHEN COMPARED WITH ECG OF 29-NOV-2017 19:09, NO SIGNIFICANT CHANGE WAS FOUND Confirmed by CHHAYA IVY, FUENTES ([id number]) on 11/30/2017 11:47:09 AM Referred By: Confirmed By:FUENTES SHAVER MD
--- NOTE | 2017-11-30 11:50 | EKG ---
Test Reason : Blood Pressure : / mmHG Vent. Rate : 111 BPM Atrial Rate : 111 BPM P-R Int : 126 ms QRS Dur : 082 ms QT Int : 308 ms P-R-T Axes : 052 050 031 degrees QTc Int : 418 ms SINUS TACHYCARDIA POSSIBLE LEFT ATRIAL ENLARGEMENT LEFT VENTRICULAR HYPERTROPHY ABNORMAL ECG WHEN COMPARED WITH ECG OF 13-NOV-2017 15:44, SIGNIFICANT CHANGES HAVE OCCURRED Confirmed by FUENTES SHAVER MD ([id number]) on 11/30/2017 11:49:40 AM Referred By: Confirmed By:FUENTES SHAVER MD
--- NOTE | 2017-11-30 11:58 | PN ---
Physical Exam: SUBJECTIVE: Patient seen and examined by me at bedside. Overnight events noted. Patient became tachypneic and desaturated to 80%. He then became diaphoretic and ABG revealed C02 of 99.4. Fi02 increased and patient is now requiring more oxygen. OBJECTIVE: Vital Signs Period Temp Pulse Resp BP Sys/Sutton Pulse Ox Last 24 Hr 97.8 F-99.0 F 100-122 19-36 112-145/60-71 93-98 GENERAL: cachectic and ventilated. Awake and Alert HEENT: trach site with thick secretions coming out of stoma LUNGS: mechanical breath sounds with no rales, rhonchi, or wheezing. HEART: RRR with normal S1 and S2 ABDOMEN: Soft, nontender, nondistended. Normal active bowel sounds EXTREMITIES: No peripheral edema Laboratory Results - last 24 hr 11/28/17 11/28/17 11/28/17 05:40 11:22 18:08 WBC RBC Hgb Hct MCV MCH MCHC RDW Plt Count MPV Neutrophils % Lymphocytes % Monocytes % Eosinophils % Basophils % PT with INR INR PTT (Actin FS) Anticoagulation Therapy Puncture Site ABG pH ABG pCO2 at Pt Temp ABG pO2 at Pt Temp ABG HCO3 ABG O2 Sat (Measured) ABG O2 Content ABG Base Excess Dionte Test O2 Delivery Device Oxygen Flow Rate Vent Mode Vent Rate Mechanical Rate PEEP Pressure Support Vent Sodium Potassium Chloride Carbon Dioxide Anion Gap BUN Creatinine Creat Clearance w eGFR POC Glucometer 121.78322 110.51163 176.82870 Random Glucose Calcium Phosphorus Magnesium Total Bilirubin AST ALT Alkaline Phosphatase Creatine Kinase Troponin I Total Protein Albumin 11/28/17 11/29/17 11/29/17 21:21 05:50 12:32 WBC RBC Hgb Hct MCV MCH MCHC RDW Plt Count MPV Neutrophils % Lymphocytes % Monocytes % Eosinophils % Basophils % PT with INR INR PTT (Actin FS) Anticoagulation Therapy Puncture Site ABG pH ABG pCO2 at Pt Temp ABG pO2 at Pt Temp ABG HCO3 ABG O2 Sat (Measured) ABG O2 Content ABG Base Excess Dionte Test O2 Delivery Device Oxygen Flow Rate Vent Mode Vent Rate Mechanical Rate PEEP Pressure Support Vent Sodium Potassium Chloride Carbon Dioxide Anion Gap BUN Creatinine Creat Clearance w eGFR POC Glucometer 171.33283 129.20036 163.41157 Random Glucose Calcium Phosphorus Magnesium Total Bilirubin AST ALT Alkaline Phosphatase Creatine Kinase Troponin I Total Protein Albumin 11/29/17 11/29/17 11/29/17 18:42 20:05 20:12 WBC RBC Hgb Hct MCV MCH MCHC RDW Plt Count MPV Neutrophils % Lymphocytes % Monocytes % Eosinophils % Basophils % PT with INR INR PTT (Actin FS) Anticoagulation Therapy Puncture Site ABG pH ABG pCO2 at Pt Temp ABG pO2 at Pt Temp ABG HCO3 ABG O2 Sat (Measured) ABG O2 Content ABG Base Excess Dionte Test O2 Delivery Device Oxygen Flow Rate Vent Mode Vent Rate Mechanical Rate PEEP Pressure Support Vent Sodium Potassium Chloride Carbon Dioxide Anion Gap BUN Creatinine Creat Clearance w eGFR POC Glucometer 204.80608 199.39356 Random Glucose Calcium Phosphorus Magnesium Total Bilirubin AST ALT Alkaline Phosphatase Creatine Kinase 55 Troponin I 0.07 H D Total Protein Albumin 11/29/17 11/30/17 11/30/17 21:35 05:25 05:25 WBC 7.5 RBC 2.61 L Hgb 8.5 L Hct 26.8 L MCV 102.6 H MCH 32.4 MCHC 31.6 L RDW 16.5 H Plt Count 123 L MPV 12.4 H Neutrophils % 77.0 Lymphocytes % 12.2 Monocytes % 10.3 H Eosinophils % 0.3 Basophils % 0.2 PT with INR 12.60 H INR 1.12 PTT (Actin FS) 28.4 Anticoagulation Therapy Puncture Site ABG pH ABG pCO2 at Pt Temp ABG pO2 at Pt Temp ABG HCO3 ABG O2 Sat (Measured) ABG O2 Content ABG Base Excess Dionte Test O2 Delivery Device Oxygen Flow Rate Vent Mode Vent Rate Mechanical Rate PEEP Pressure Support Vent Sodium Potassium Chloride Carbon Dioxide Anion Gap BUN Creatinine Creat Clearance w eGFR POC Glucometer 196.28998 Random Glucose Calcium Phosphorus Magnesium Total Bilirubin AST ALT Alkaline Phosphatase Creatine Kinase Troponin I Total Protein Albumin 11/30/17 11/30/17 11/30/17 05:25 05:25 06:07 WBC RBC Hgb Hct MCV MCH MCHC RDW Plt Count MPV Neutrophils % Lymphocytes % Monocytes % Eosinophils % Basophils % PT with INR INR PTT (Actin FS) Anticoagulation Therapy No Result Required. Puncture Site Right radial ABG pH 7.29 L ABG pCO2 at Pt Temp 99.4 H* D ABG pO2 at Pt Temp 112.0 H ABG HCO3 45.9 H* ABG O2 Sat (Measured) 98.4 ABG O2 Content 9.2 L* ABG Base Excess 17.7 H* Dionte Test Positive O2 Delivery Device Vent Oxygen Flow Rate 90% Vent Mode Cpap/ps Vent Rate No Result Required. Mechanical Rate Yes PEEP 5.0 Pressure Support Vent 22 Sodium 144 Potassium 5.1 Chloride 99 Carbon Dioxide 48 H Anion Gap -3 L BUN 40 H Creatinine 0.7 Creat Clearance w eGFR > 60 POC Glucometer Random Glucose 151 H D Calcium 8.5 Phosphorus 4.4 Magnesium 2.5 H Total Bilirubin 0.4 D AST 23 ALT 40 D Alkaline Phosphatase 140 H Creatine Kinase Troponin I 0.09 H Total Protein 7.7 Albumin 2.2 L Active Medications Generic Name Dose Route Start Last Admin Trade Name Freq PRN Reason Stop Dose Admin Acetaminophen 650 mg 11/22/17 23:20 11/29/17 10:18 Tylenol - PO 650 mg Q6H PRN Administration FEVER Acetaminophen 1,000 mg 11/22/17 23:20 11/26/17 17:31 Ofirmev Injection - IVPB 1,000 mg Q6H PRN Administration FEVER Albuterol/Ipratropium 1 amp 11/23/17 08:00 11/30/17 11:48 Duoneb - NEB 1 amp RQID [facility] Administration Alprazolam 0.5 mg 11/23/17 11:38 11/29/17 02:03 Xanax - PO 0.5 mg Q8H PRN Administration ANXIETY Apixaban 5 mg 11/23/17 10:00 11/30/17 10:51 Eliquis - PO 5 mg BID [facility] Administration Artificial Tears 1 applic 11/23/17 22:00 11/29/17 21:37 Artificial Tears Ointment - OU 1 applic HS [facility] Administration Chlorhexidine Gluconate 1 applic 11/22/17 22:00 11/29/17 21:18 Hibiclens For Decolonization - TP 1 applic HS [facility] Administration Ferrous Sulfate 300 mg 11/23/17 10:00 11/30/17 10:53 Feosol GT 300 mg DAILY [facility] Administration Insulin Aspart 1 vial 11/23/17 07:00 11/30/17 06:24 Novolog Vial Sliding Scale - SQ Not Given ACHS [facility] Protocol Insulin Detemir 16 units 11/26/17 08:34 11/30/17 06:24 Levemir Vial SQ 16 units BID@0700,2200 [facility] Administration Lactobacillus Acidophilus 1 tab 02/08/18 10:00 11/30/17 10:51 Bacid - PEG 1 tab DAILY [facility] Administration Metoprolol Tartrate 5 mg 11/22/17 23:20 Lopressor Injection - IVPUSH Q4H PRN HYPERTENSION Prednisone 40 mg 11/23/17 10:00 11/30/17 10:51 Deltasone - PO 40 mg DAILY [facility] Administration Quetiapine Fumarate 25 mg 11/23/17 22:00 11/29/17 21:18 Seroquel - PO 25 mg HS [facility] Administration Ranitidine HCl 150 mg 11/23/17 10:00 11/30/17 10:51 Zantac - PO 150 mg DAILY [facility] Administration Roflumilast 500 mcg 11/23/17 10:00 11/30/17 10:51 Daliresp - NGT 500 mcg DAILY [facility] Administration Saliva Substitute 1 applic 11/23/17 10:00 11/30/17 10:55 Mouthkote Solution - MM 1 applic DAILY [facility] Administration Impression 1. MIRLANDE 2. hypernatremia 3. chronic resp failure s/p trache 4. Sepsis 2/2 PNA 5. Interstitial lung disease 6. Diastolic CHF 7. IDDM Plan -Sodium levels improved today. Continue free water flushes through feeds - vent support - pulmonary follow up - avoid maintenance fluids for now - monitor pulse ox Olivia Lucas MD PGY-2 Visit type - Emergency Visit Emergency Visit: Yes ED Registration Date: 10/17/17 Care time: The patient presented to the Emergency Department on the above date and was hospitalized for further evaluation of their emergent condition. - New Patient This patient is new to me today: Yes Date on this admission: 11/30/17 - Critical Care Critical Care patient: Yes Total Critical Care Time (in minutes): 45 Critical Care Statement: The care of this patient involved high complexity decision making to prevent further life threatening deterioration of the patient 's condition and/or to evaluate & treat vital organ system(s) failure or risk of failure.
--- NOTE | 2017-11-30 12:31 | PN ---
Teaching Attending Note Name of Resident: Nolvia Maharaj ATTENDING PHYSICIAN STATEMENT I saw and evaluated the patient. I reviewed the resident's note and discussed the case with the resident. I agree with the resident's findings and plan as documented. SUBJECTIVE: Pt seen and examined in the ICU. Vented, awake, tachypneic. Still not getting full tidal volumes, some leak at stoma site. OBJECTIVE: Last Vital Signs Temp Pulse Resp BP Pulse Ox 98.8 F 108 H 30 H 158/68 93 L 11/30/17 10:00 11/30/17 10:00 11/30/17 12:00 11/30/17 12:00 11/30/17 11:47 Intake & Output 11/27/17 11/28/17 11/29/17 11/30/17 23:59 23:59 23:59 23:59 Intake Total 2100 2140 2680 1830 Output Total 845 355 8410 601 Balance 1600 1540 1580 1229 Weight 37.3 kg 36.922 kg 36.469 kg 36.968 kg Gen: vented, tachypneic, cachectic Heart: tachycardic, regular Lung: scattered rhonchi Abd: soft, nontender Ext: no edema CBC, BMP 11/30/17 05:25 11/30/17 05:25 Active Medications Acetaminophen (Tylenol -) 650 mg PO Q6H PRN PRN Reason: FEVER Last Admin: 11/29/17 10:18 Dose: 650 mg Acetaminophen (Ofirmev Injection -) 1,000 mg IVPB Q6H PRN PRN Reason: FEVER Last Admin: 11/26/17 17:31 Dose: 1,000 mg Albuterol/Ipratropium (Duoneb -) 1 amp NEB RQID [facility] Last Admin: 11/30/17 11:48 Dose: 1 amp Alprazolam (Xanax -) 0.5 mg PO Q8H PRN PRN Reason: ANXIETY Last Admin: 11/29/17 02:03 Dose: 0.5 mg Apixaban (Eliquis -) 5 mg PO BID [facility] Last Admin: 11/30/17 10:51 Dose: 5 mg Artificial Tears (Artificial Tears Ointment -) 1 applic OU HS [facility] Last Admin: 11/29/17 21:37 Dose: 1 applic Chlorhexidine Gluconate (Hibiclens For Decolonization -) 1 applic TP HS [facility] Last Admin: 11/29/17 21:18 Dose: 1 applic Ferrous Sulfate (Feosol) 300 mg GT DAILY [facility] Last Admin: 11/30/17 10:53 Dose: 300 mg Insulin Aspart (Novolog Vial Sliding Scale -) 1 vial SQ ACHS [facility] PRN Reason: Protocol Last Admin: 11/30/17 12:15 Dose: Not Given Insulin Detemir (Levemir Vial) 16 units SQ BID@0700,2200 [facility] Last Admin: 11/30/17 06:24 Dose: 16 units Lactobacillus Acidophilus (Bacid -) 1 tab PEG DAILY [facility] Last Admin: 11/30/17 10:51 Dose: 1 tab Metoprolol Tartrate (Lopressor Injection -) 5 mg IVPUSH Q4H PRN PRN Reason: HYPERTENSION Prednisone (Deltasone -) 40 mg PO DAILY [facility] Last Admin: 11/30/17 10:51 Dose: 40 mg Quetiapine Fumarate (Seroquel -) 25 mg PO [facility] Last Admin: 11/29/17 21:18 Dose: 25 mg Ranitidine HCl (Zantac -) 150 mg PO DAILY [facility] Last Admin: 11/30/17 10:51 Dose: 150 mg Roflumilast (Daliresp -) 500 mcg NGT DAILY [facility] Last Admin: 11/30/17 10:51 Dose: 500 mcg Saliva Substitute (Mouthkote Solution -) 1 applic MM DAILY [facility] Last Admin: 11/30/17 10:55 Dose: 1 applic ASSESSMENT AND PLAN: Acute Hypoxic Respiratory Failure s/p Tracheostomy Pneumonia treated Sepsis Interstitial Lung Disease Acute Diastolic Heart Failure improved Acute Kidney Injury Lactic Acidosis resolved DM RLE DVT - monitoring off antibiotics - monitor urine output, creatinine - continue prednisone - anxiolytics, seroquel qHS - enteral feeds - continue anticoagulation, monitor H/H - swallow eval for possible PO intake when respiratory status more stable - taper FiO2 to keep SpO2 >90% - spontaneous breathing trials as tolerated - DVT/GI prophylaxis - continue discussions regarding goals of care as pt with clinical deterioration and limited options - continue ICU monitoring for now critical care time spent in reviewing chart, evaluating patient and formulating plan 35 min Problem List - Problems (1) Acute respiratory failure with hypoxia Code(s): J96.01 - ACUTE RESPIRATORY FAILURE WITH HYPOXIA (2) Pneumonia Code(s): J18.9 - PNEUMONIA, UNSPECIFIED ORGANISM (3) Diabetes Code(s): E11.9 - TYPE 2 DIABETES MELLITUS WITHOUT COMPLICATIONS
--- NOTE | 2017-11-30 12:31 | PN ---
Teaching Attending Note Name of Resident: Russell Anderson ATTENDING PHYSICIAN STATEMENT Time of evaluation: 9:20 AM I saw and evaluated the patient. I reviewed the resident's note and discussed the case with the resident. I agree with the resident's findings and plan as documented. SUBJECTIVE: Patient seen and examined. reports having some substernal/left sided chest pain yesterday, none currently. No new complaints. OBJECTIVE: Vital Signs Period Temp Pulse Resp BP Sys/Sutton Pulse Ox Last 24 Hr 97.8 F-99.0 F 100-122 19-36 112-158/60-71 93-98 Intake & Output 11/27/17 11/28/17 11/29/17 11/30/17 23:59 23:59 23:59 23:59 Intake Total 2100 2140 2680 1830 Output Total 043 908 1723 601 Balance 1600 1540 1580 1229 Weight 82 lb 3.719 oz 81 lb 6.4 oz 80 lb 6.4 oz 81 lb 8 oz general: lying in bed, mildly tachypneic Neck: trach with large soma and minimal drainage around chest: fine basilar rales, abdomen: soft, scaphoid, unchanged exam, PEG in place extremities: no edema Home Medication List Medication Instructions Recorded Confirmed Type Glipizide [Glucotrol Xl] 0 mg PO ASDIR 10/17/17 10/17/17 History Metformin HCl 0 mg PO ASDIR 10/17/17 10/17/17 History Tamsulosin HCl 0.4 mg PO DAILY 10/17/17 10/17/17 History Active Medications Generic Name Dose Route Start Last Admin Trade Name Freq PRN Reason Stop Dose Admin Acetaminophen 650 mg 11/22/17 23:20 11/29/17 10:18 Tylenol - PO 650 mg Q6H PRN Administration FEVER Acetaminophen 1,000 mg 11/22/17 23:20 11/26/17 17:31 Ofirmev Injection - IVPB 1,000 mg Q6H PRN Administration FEVER Albuterol/Ipratropium 1 amp 11/23/17 08:00 11/30/17 11:48 Duoneb - NEB 1 amp RQID SONAL Administration Alprazolam 0.5 mg 11/23/17 11:38 11/29/17 02:03 Xanax - PO 0.5 mg Q8H PRN Administration ANXIETY Apixaban 5 mg 11/23/17 10:00 11/30/17 10:51 Eliquis - PO 5 mg BID SONAL Administration Artificial Tears 1 applic 11/23/17 22:00 11/29/17 21:37 Artificial Tears Ointment - OU 1 applic HS SONAL Administration Chlorhexidine Gluconate 1 applic 11/22/17 22:00 11/29/17 21:18 Hibiclens For Decolonization - TP 1 applic HS SONAL Administration Ferrous Sulfate 300 mg 11/23/17 10:00 11/30/17 10:53 Feosol GT 300 mg DAILY SONAL Administration Insulin Aspart 1 vial 11/23/17 07:00 11/30/17 12:15 Novolog Vial Sliding Scale - SQ Not Given ACHS SONAL Protocol Insulin Detemir 16 units 11/26/17 08:34 11/30/17 06:24 Levemir Vial SQ 16 units BID@0700,2200 SONAL Administration Lactobacillus Acidophilus 1 tab 11/23/17 10:00 11/30/17 10:51 Bacid - PEG 1 tab DAILY SONAL Administration Metoprolol Tartrate 5 mg 11/22/17 23:20 Lopressor Injection - IVPUSH Q4H PRN HYPERTENSION Prednisone 40 mg 11/23/17 10:00 11/30/17 10:51 Deltasone - PO 40 mg DAILY SONAL Administration Quetiapine Fumarate 25 mg 11/23/17 22:00 11/29/17 21:18 Seroquel - PO 25 mg HS SONAL Administration Ranitidine HCl 150 mg 11/23/17 10:00 11/30/17 10:51 Zantac - PO 150 mg DAILY SONAL Administration Roflumilast 500 mcg 11/23/17 10:00 11/30/17 10:51 Daliresp - NGT 500 mcg DAILY SONAL Administration Saliva Substitute 1 applic 11/23/17 10:00 11/30/17 10:55 Mouthkote Solution - MM 1 applic DAILY SONAL Administration Laboratory Results - last 24 hr 11/28/17 11/28/17 11/28/17 05:40 11:22 18:08 WBC RBC Hgb Hct MCV MCH MCHC RDW Plt Count MPV Neutrophils % Lymphocytes % Monocytes % Eosinophils % Basophils % PT with INR INR PTT (Actin FS) Anticoagulation Therapy Puncture Site ABG pH ABG pCO2 at Pt Temp ABG pO2 at Pt Temp ABG HCO3 ABG O2 Sat (Measured) ABG O2 Content ABG Base Excess Dionte Test O2 Delivery Device Oxygen Flow Rate Vent Mode Vent Rate Mechanical Rate PEEP Pressure Support Vent Sodium Potassium Chloride Carbon Dioxide Anion Gap BUN Creatinine Creat Clearance w eGFR POC Glucometer 121.60349 110.02154 176.99721 Random Glucose Calcium Phosphorus Magnesium Total Bilirubin AST ALT Alkaline Phosphatase Creatine Kinase Troponin I Total Protein Albumin 11/28/17 11/29/17 11/29/17 21:21 05:50 12:32 WBC RBC Hgb Hct MCV MCH MCHC RDW Plt Count MPV Neutrophils % Lymphocytes % Monocytes % Eosinophils % Basophils % PT with INR INR PTT (Actin FS) Anticoagulation Therapy Puncture Site ABG pH ABG pCO2 at Pt Temp ABG pO2 at Pt Temp ABG HCO3 ABG O2 Sat (Measured) ABG O2 Content ABG Base Excess Dionte Test O2 Delivery Device Oxygen Flow Rate Vent Mode Vent Rate Mechanical Rate PEEP Pressure Support Vent Sodium Potassium Chloride Carbon Dioxide Anion Gap BUN Creatinine Creat Clearance w eGFR POC Glucometer 171.22273 129.46332 163.16504 Random Glucose Calcium Phosphorus Magnesium Total Bilirubin AST ALT Alkaline Phosphatase Creatine Kinase Troponin I Total Protein Albumin 11/29/17 11/29/17 11/29/17 18:42 20:05 20:12 WBC RBC Hgb Hct MCV MCH MCHC RDW Plt Count MPV Neutrophils % Lymphocytes % Monocytes % Eosinophils % Basophils % PT with INR INR PTT (Actin FS) Anticoagulation Therapy Puncture Site ABG pH ABG pCO2 at Pt Temp ABG pO2 at Pt Temp ABG HCO3 ABG O2 Sat (Measured) ABG O2 Content ABG Base Excess Dionte Test O2 Delivery Device Oxygen Flow Rate Vent Mode Vent Rate Mechanical Rate PEEP Pressure Support Vent Sodium Potassium Chloride Carbon Dioxide Anion Gap BUN Creatinine Creat Clearance w eGFR POC Glucometer 204.52557 199.94343 Random Glucose Calcium Phosphorus Magnesium Total Bilirubin AST ALT Alkaline Phosphatase Creatine Kinase 55 Troponin I 0.07 H D Total Protein Albumin 11/29/17 11/30/17 11/30/17 21:35 05:25 05:25 WBC 7.5 RBC 2.61 L Hgb 8.5 L Hct 26.8 L MCV 102.6 H MCH 32.4 MCHC 31.6 L RDW 16.5 H Plt Count 123 L MPV 12.4 H Neutrophils % 77.0 Lymphocytes % 12.2 Monocytes % 10.3 H Eosinophils % 0.3 Basophils % 0.2 PT with INR 12.60 H INR 1.12 PTT (Actin FS) 28.4 Anticoagulation Therapy Puncture Site ABG pH ABG pCO2 at Pt Temp ABG pO2 at Pt Temp ABG HCO3 ABG O2 Sat (Measured) ABG O2 Content ABG Base Excess Dionte Test O2 Delivery Device Oxygen Flow Rate Vent Mode Vent Rate Mechanical Rate PEEP Pressure Support Vent Sodium Potassium Chloride Carbon Dioxide Anion Gap BUN Creatinine Creat Clearance w eGFR POC Glucometer 196.46630 Random Glucose Calcium Phosphorus Magnesium Total Bilirubin AST ALT Alkaline Phosphatase Creatine Kinase Troponin I Total Protein Albumin 11/30/17 11/30/17 11/30/17 05:25 05:25 06:07 WBC RBC Hgb Hct MCV MCH MCHC RDW Plt Count MPV Neutrophils % Lymphocytes % Monocytes % Eosinophils % Basophils % PT with INR INR PTT (Actin FS) Anticoagulation Therapy No Result Required. Puncture Site Right radial ABG pH 7.29 L ABG pCO2 at Pt Temp 99.4 H* D ABG pO2 at Pt Temp 112.0 H ABG HCO3 45.9 H* ABG O2 Sat (Measured) 98.4 ABG O2 Content 9.2 L* ABG Base Excess 17.7 H* Dionte Test Positive O2 Delivery Device Vent Oxygen Flow Rate 90% Vent Mode Cpap/ps Vent Rate No Result Required. Mechanical Rate Yes PEEP 5.0 Pressure Support Vent 22 Sodium 144 Potassium 5.1 Chloride 99 Carbon Dioxide 48 H Anion Gap -3 L BUN 40 H Creatinine 0.7 Creat Clearance w eGFR > 60 POC Glucometer Random Glucose 151 H D Calcium 8.5 Phosphorus 4.4 Magnesium 2.5 H Total Bilirubin 0.4 D AST 23 ALT 40 D Alkaline Phosphatase 140 H Creatine Kinase Troponin I 0.09 H Total Protein 7.7 Albumin 2.2 L EKG 11/29, new T wave inversions V1-V3 from 11/13 EKG 11/30, unchanged from yesterday ASSESSMENT AND PLAN: 62 yo M active smoker, pMHx of NIDDM, PUD, BPH admitted with acute hypoxic respiratory failure, and extensive RLE DVT -Left sided chest pain 11/29 -Acute hypoxic respiratory failure, suspect from ?ILD with pneumonitis s/p intubation 11/03, trach 11/07, exchanged 11/11 for cuff, now recurrent worsening respiratory failure, suspected aspiration PNA with sepsis -Extensive RLE Acute DVT, s/p IVC filter 10/20, thrombectomy 10/24 - Acute diastolic heart failure -Sepsis on admission, likely from PNA, now recurrent concerns for aspiration PNA -Lactic acidosis, from sepsis vs increased work of breathing, resolved -MIRLANDE on admission from sepsis, now recurrent, ?Sepsis, vs ATN , obstructive process ruled out -Hypernatremia, likely hypovolumic -Thrombocytopenia -Elevated INR -Chest wall and right sided abdominal pain -NIDDM -PUD -BPH -Cachexia/malnutrition -Unwitnessed fall 11/19/2017 Plan: EKG with new T wave inversions in V1-V3, troponin noted. Currently asymptomatic. Check 2D echo to assess for WMA. Reconsult Dr. Layne's group for input. Trach changed and transferred back to ICU, attempted CPAP overnight, but worsening ABG, back on AV, still not maintaining tidal volume. Discussed with Dr. Lara, readdress with Dr. Roasrio if any other options. . Overall prognosis poor. Free water flushes resumed 11/29. Na improved. Monitor Na, K [place]. Has been on 2 courses of antibiotics (7 days of ceftriaxone/azithromycin and 8 days of zosyn for possible aspiration), off antibiotics now, will monitor. Calmer on seroquel and xanax, Frequent suctioning, aspiration precautions. Trach cuff leak, s/p extended trach placed 11/14, trach changed again on 11/22 for broken cuff. Continue prednisone per pulmonary. ?ILD with pneumonitis, unclear etiology, On Eliquis, hold for procedure as indicated. Renal ultrasound/nephrology input/Urine lytes noted. Renal function improved. s/p PEG 11/09 Follow up speech/swallow eval as able. Intermittent agitation, 2 point restraints as pulls at the vent, usually in the evenings, suspect . Platelets improved. Replete lytes prn. Ac 7.4, ISS, hold oral hypoglycemics. Levemir 16 units BID, titrate based on blood sugars. Continue flomax. Nicotine patch Plan discussed with nursing. Not a candidate for transfer to [place] as discussed. Continue to follow up with CM. Overall poor prognosis given still with High FiO2 requirements and tenuous respiratory status. Will continue to address overall goals with patient and family. discuss with social work to address possible LTACH placement with insurance again. Total critical care time spent in ICU 35 min.
[2017-11-30] MEDS ORDERED: LORazepam 2 MG/ML SDV VIAL ONE ×2 (15:17→18:17)
[2017-11-30] MEDS ORDERED: LORazepam 2 MG/ML SDV VIAL IVPUSH ONE ×2 (15:30→18:30)
--- NOTE | 2017-11-30 16:01 | PN ---
Progress Note (short form) - Note Progress Note: Thoracic Surgery: Called regarding worsening tidal volumes. At bedside noticed that tension on tracheostomy from patient's pulling on it had eroded upwards enlarging stoma. Although tracheostomy was in airway, cuff was closer to stoma. Discussed semi- urgent tracheostomy repositioning or change with patient's daughter who agreed. Bivona was difficult to advance so replaced with Shiley #7 XLT. Cuff inflated and tidal volumes improved. CXR ordered. Tracheostomy needs to be secured flush against patient's skin to prevent further erosion.
--- NOTE | 2017-11-30 16:47 | PN ---
Physical Exam: SUBJECTIVE: Patient seen and examined attempted to change to CPAP overnight, which was not tolerated well, switched back to assist control. Overnight, pt complained of chest pain, was diaphoretic , desatted to mid 80's. trop of 0.07, and EKG with new new changes. This am, pt denies chest pain or any other complaints. OBJECTIVE: Vital Signs Period Temp Pulse Resp BP Sys/Sutton Pulse Ox Last 24 Hr 97.8 F-98.8 F 100-122 14-34 93-158/59-71 93-98 GENERAL: cachectic elderly male, vented, in NAD HEENT: trach site with thick secretions coming out of stoma LUNGS: mechanical breath sounds, no rales or rhonchi appreciated HEART: difficult to assess over mechanical breath sounds ABDOMEN: scaphoid abdomen, soft, NT, mesh from hernia surgery is easily palpable EXTREMITIES: 2+ pulses, warm, well-perfused, no edema, emaciated. hands in todd mittens NEUROLOGICAL: Cranial nerves II through XII grossly intact Laboratory Results - last 24 hr 11/29/17 11/29/17 11/29/17 18:42 20:05 20:12 WBC RBC Hgb Hct MCV MCH MCHC RDW Plt Count MPV Neutrophils % Lymphocytes % Monocytes % Eosinophils % Basophils % PT with INR INR PTT (Actin FS) Anticoagulation Therapy Puncture Site ABG pH ABG pCO2 at Pt Temp ABG pO2 at Pt Temp ABG HCO3 ABG O2 Sat (Measured) ABG O2 Content ABG Base Excess Dionte Test O2 Delivery Device Oxygen Flow Rate Vent Mode Vent Rate Mechanical Rate PEEP Pressure Support Vent Sodium Potassium Chloride Carbon Dioxide Anion Gap BUN Creatinine Creat Clearance w eGFR POC Glucometer 204.85875 199.19731 Random Glucose Calcium Phosphorus Magnesium Total Bilirubin AST ALT Alkaline Phosphatase Creatine Kinase 55 Troponin I 0.07 H D Total Protein Albumin 11/29/17 11/30/17 11/30/17 21:35 05:16 05:25 WBC 7.5 RBC 2.61 L Hgb 8.5 L Hct 26.8 L MCV 102.6 H MCH 32.4 MCHC 31.6 L RDW 16.5 H Plt Count 123 L MPV 12.4 H Neutrophils % 77.0 Lymphocytes % 12.2 Monocytes % 10.3 H Eosinophils % 0.3 Basophils % 0.2 PT with INR INR PTT (Actin FS) Anticoagulation Therapy Puncture Site ABG pH ABG pCO2 at Pt Temp ABG pO2 at Pt Temp ABG HCO3 ABG O2 Sat (Measured) ABG O2 Content ABG Base Excess Dionte Test O2 Delivery Device Oxygen Flow Rate Vent Mode Vent Rate Mechanical Rate PEEP Pressure Support Vent Sodium Potassium Chloride Carbon Dioxide Anion Gap BUN Creatinine Creat Clearance w eGFR POC Glucometer 196.34579 179.58497 Random Glucose Calcium Phosphorus Magnesium Total Bilirubin AST ALT Alkaline Phosphatase Creatine Kinase Troponin I Total Protein Albumin 11/30/17 11/30/17 11/30/17 05:25 05:25 05:25 WBC RBC Hgb Hct MCV MCH MCHC RDW Plt Count MPV Neutrophils % Lymphocytes % Monocytes % Eosinophils % Basophils % PT with INR 12.60 H INR 1.12 PTT (Actin FS) 28.4 Anticoagulation Therapy Puncture Site ABG pH ABG pCO2 at Pt Temp ABG pO2 at Pt Temp ABG HCO3 ABG O2 Sat (Measured) ABG O2 Content ABG Base Excess Dionte Test O2 Delivery Device Oxygen Flow Rate Vent Mode Vent Rate Mechanical Rate PEEP Pressure Support Vent Sodium 144 Potassium 5.1 Chloride 99 Carbon Dioxide 48 H Anion Gap -3 L BUN 40 H Creatinine 0.7 Creat Clearance w eGFR > 60 POC Glucometer Random Glucose 151 H D Calcium 8.5 Phosphorus 4.4 Magnesium 2.5 H Total Bilirubin 0.4 D AST 23 ALT 40 D Alkaline Phosphatase 140 H Creatine Kinase Troponin I 0.09 H Total Protein 7.7 Albumin 2.2 L 11/30/17 11/30/17 11/30/17 06:07 12:14 12:25 WBC RBC Hgb Hct MCV MCH MCHC RDW Plt Count MPV Neutrophils % Lymphocytes % Monocytes % Eosinophils % Basophils % PT with INR INR PTT (Actin FS) Anticoagulation Therapy No Result Required. Puncture Site Right radial ABG pH 7.29 L ABG pCO2 at Pt Temp 99.4 H* D ABG pO2 at Pt Temp 112.0 H ABG HCO3 45.9 H* ABG O2 Sat (Measured) 98.4 ABG O2 Content 9.2 L* ABG Base Excess 17.7 H* Dionte Test Positive O2 Delivery Device Vent Oxygen Flow Rate 90% Vent Mode Cpap/ps Vent Rate No Result Required. Mechanical Rate Yes PEEP 5.0 Pressure Support Vent 22 Sodium Potassium Chloride Carbon Dioxide Anion Gap BUN Creatinine Creat Clearance w eGFR POC Glucometer 171.20307 Random Glucose Calcium Phosphorus Magnesium Total Bilirubin AST ALT Alkaline Phosphatase Creatine Kinase Troponin I 0.09 H Total Protein Albumin Active Medications Generic Name Dose Route Start Last Admin Trade Name Freq PRN Reason Stop Dose Admin Acetaminophen 650 mg 11/22/17 23:20 11/29/17 10:18 Tylenol - PO 650 mg Q6H PRN Administration FEVER Acetaminophen 1,000 mg 11/22/17 23:20 11/26/17 17:31 Ofirmev Injection - IVPB 1,000 mg Q6H PRN Administration FEVER Albuterol/Ipratropium 1 amp 11/23/17 08:00 11/30/17 15:55 Duoneb - NEB 1 amp RQID SONAL Administration Alprazolam 0.5 mg 11/23/17 11:38 11/29/17 02:03 Xanax - PO 0.5 mg Q8H PRN Administration ANXIETY Apixaban 5 mg 11/23/17 10:00 11/30/17 10:51 Eliquis - PO 5 mg BID SONAL Administration Artificial Tears 1 applic 11/23/17 22:00 11/29/17 21:37 Artificial Tears Ointment - OU 1 applic HS SONAL Administration Chlorhexidine Gluconate 1 applic 11/22/17 22:00 11/29/17 21:18 Hibiclens For Decolonization - TP 1 applic HS SONAL Administration Ferrous Sulfate 300 mg 11/23/17 10:00 11/30/17 10:53 Feosol GT 300 mg DAILY SONAL Administration Insulin Aspart 1 vial 11/23/17 07:00 11/30/17 16:19 Novolog Vial Sliding Scale - SQ Not Given ACHS [facility] Protocol Insulin Detemir 16 units 11/26/17 08:34 11/30/17 06:24 Levemir Vial SQ 16 units BID@0700,2200 SONAL Administration Lactobacillus Acidophilus 1 tab 11/23/17 10:00 11/30/17 10:51 Bacid - PEG 1 tab DAILY SONAL Administration Metoprolol Tartrate 5 mg 11/22/17 23:20 Lopressor Injection - IVPUSH Q4H PRN HYPERTENSION Prednisone 40 mg 11/23/17 10:00 11/30/17 10:51 Deltasone - PO 40 mg DAILY SONAL Administration Quetiapine Fumarate 25 mg 11/23/17 22:00 11/29/17 21:18 Seroquel - PO 25 mg HS SONAL Administration Ranitidine HCl 150 mg 11/23/17 10:00 11/30/17 10:51 Zantac - PO 150 mg DAILY SONAL Administration Roflumilast 500 mcg 11/23/17 10:00 11/30/17 10:51 Daliresp - NGT 500 mcg DAILY SONAL Administration Saliva Substitute 1 applic 11/23/17 10:00 11/30/17 10:55 Mouthkote Solution - MM 1 applic DAILY SONAL Administration Echo: grossly normal ASSESSMENT/PLAN: 62M w/ hx of active smoking, NIDDM, PUD, and BPH who presented with SOB, found to have acute hypoxic respiratory failure, extensive RLE DVT, sepsis likely 2/2 aspiration PNA, and acute diastolic CHF. #Acute hypoxic respiratory failure -suspect from ILD with pneumonitis, s/p intubation 11/03 with failed weaning and now s/p trach 11/07. trach exchanged 11/19. no gross signs of tracheomalacia. unable to titrate down FiO2. currently on FiO2 85%. -goal SpO2 >88% -continue prednisone 40mg -problem with obtaining good tidal volumes. Dr. Rosario changed trach. will continue to monitor. #chest pain -trop: 0.7--> 0.09--> 0.09 -EKG with new changes -Echo: grossly normal -cards told to re-evaluate pt, f/u recs #RLE DVT -s/p IVC filter 10/20, thrombectmy 10/24 -continue eliquis 5mg BID, monitor for bleeding #Sepsis- resolved -due to suspected aspiration PNA, already received abx course x2 -leukocytosis: 11.3--> 17.6--> 11.3--> 6.9 -afebrile, + secretions from stoma on physical exam -cont deep frequent suctioning #Acute diastolic heart failure -s/p intermittent lasix IV. clinically euvolemic. will hold for now #Iron deficiency anemia and anemia of chronic disease -possible due to frequent blood draws and comorbidities - s/p 1 unit PRBC this hospital stay -cont iron supplementation #Hypernatremia -Na of 149--> 144 -continue free water flushes -continue to monitor #antibiotic assoc Diarrhea -likely due to prolonged abx use, now resolved -continue bacid and banatol. #continuous nicotine dependence -nicotine patch #cachexia -severe malnutrition evident by body habitus. lost 40+lbs this hospital stay. s/p PEG 11/09. -tolerating TF #DM -improved -cont levemir 16 units BID -cont to titrate as needed. #Agitation -intermittent periods of agitation -continue seroquel HS -per nurse, todd mittens required because pt tries to pull out lines and tubes when he gets hypoxic and restless. #FEN/PPX -water flush tube feeds -correct Na -tube feeds -ranitidine -eliquis #Dispo -Poor overall prognosis. Unable to titrate down Fio2, not candidate for tertiary care center as no other management available at this time. palliative care on board Case discussed with attending, Dr. Ramirez. -Russell Anderson MD PGY1 Visit type - Emergency Visit Emergency Visit: Yes ED Registration Date: 10/17/17 Care time: The patient presented to the Emergency Department on the above date and was hospitalized for further evaluation of their emergent condition. - New Patient This patient is new to me today: No - Critical Care Critical Care patient: Yes Total Critical Care Time (in minutes): 36 Critical Care Statement: The care of this patient involved high complexity decision making to prevent further life threatening deterioration of the patient 's condition and/or to evaluate & treat vital organ system(s) failure or risk of failure.
--- NOTE | 2017-11-30 17:00 | PN ---
Teaching Attending Note Name of Resident: Olivia Lucas (Nephrology) ATTENDING PHYSICIAN STATEMENT I saw and evaluated the patient. I reviewed the resident's note and discussed the case with the resident. I agree with the resident's findings and plan as documented. Renal Pts sats were now and he requires increased oxygen. Current Medications Generic Name Dose Route Start Last Admin Trade Name Freq PRN Reason Stop Dose Admin Acetaminophen 650 mg 11/22/17 23:20 11/29/17 10:18 Tylenol - PO 650 mg Q6H PRN Administration FEVER Acetaminophen 1,000 mg 11/22/17 23:20 11/26/17 17:31 Ofirmev Injection - IVPB 1,000 mg Q6H PRN Administration FEVER Albuterol/Ipratropium 1 amp 11/23/17 08:00 11/30/17 15:55 Duoneb - NEB 1 amp RQID SONAL Administration Alprazolam 0.5 mg 11/23/17 11:38 11/29/17 02:03 Xanax - PO 0.5 mg Q8H PRN Administration ANXIETY Apixaban 5 mg 11/23/17 10:00 11/30/17 10:51 Eliquis - PO 5 mg BID SONAL Administration Artificial Tears 1 applic 11/23/17 22:00 11/29/17 21:37 Artificial Tears Ointment - OU 1 applic HS SONAL Administration Chlorhexidine Gluconate 1 applic 11/22/17 22:00 11/29/17 21:18 Hibiclens For Decolonization - TP 1 applic HS SONAL Administration Ferrous Sulfate 300 mg 11/23/17 10:00 11/30/17 10:53 Feosol GT 300 mg DAILY SONAL Administration Insulin Aspart 1 vial 11/23/17 07:00 11/30/17 16:19 Novolog Vial Sliding Scale - SQ Not Given ACHS SONAL Protocol Insulin Detemir 16 units 11/26/17 08:34 11/30/17 06:24 Levemir Vial SQ 16 units BID@0700,2200 SONAL Administration Lactobacillus Acidophilus 1 tab 11/23/17 10:00 11/30/17 10:51 Bacid - PEG 1 tab DAILY SONAL Administration Metoprolol Tartrate 5 mg 11/22/17 23:20 Lopressor Injection - IVPUSH Q4H PRN HYPERTENSION Prednisone 40 mg 11/23/17 10:00 11/30/17 10:51 Deltasone - PO 40 mg DAILY SONAL Administration Quetiapine Fumarate 25 mg 11/23/17 22:00 11/29/17 21:18 Seroquel - PO 25 mg HS SONAL Administration Ranitidine HCl 150 mg 11/23/17 10:00 11/30/17 10:51 Zantac - PO 150 mg DAILY SONAL Administration Roflumilast 500 mcg 11/23/17 10:00 11/30/17 10:51 Daliresp - NGT 500 mcg DAILY SONAL Administration Saliva Substitute 1 applic 11/23/17 10:00 11/30/17 10:55 Mouthkote Solution - MM 1 applic DAILY SONAL Administration Laboratory Tests 11/30/17 05:25 Sodium 144 Creatinine 0.7 cardio s1s2 tachy pulm on vent 100 percents fios gi soft, peg gu incontinence ext neg edema Impression 1. MIRLANDE 2. hypernatremia 3. chronic resp failure s/p trache 4. s/p trache 5. s/p peg 6. sepsis 7. interstitial lung disease 8. chf diastolic 9. DM 10. lactic acidosis 11. PNA Plan - sodium is stable - renal function stable - will follow prn - vent support Dr Gan Problem List - Problems (1) Hypernatremia Code(s): E87.0 - HYPEROSMOLALITY AND HYPERNATREMIA (2) MIRLANDE (acute kidney injury) Code(s): N17.9 - ACUTE KIDNEY FAILURE, UNSPECIFIED (3) Acute respiratory failure with hypoxia Code(s): J96.01 - ACUTE RESPIRATORY FAILURE WITH HYPOXIA (4) Diabetes Code(s): E11.9 - TYPE 2 DIABETES MELLITUS WITHOUT COMPLICATIONS (5) Failure to thrive Code(s): LAE2819 -
[2017-11-30] MEDS ORDERED: PROPOFOL 1,000,000 MCG/100 ML VIAL ONE (18:51)
[2017-11-30] MEDS: PROPOFOL 1,000,000 MCG/100 ML VIAL IVPB SCH (19:17)
[2017-11-30] MEDS ORDERED: PT OWN MED DRAWER 7, Y5N ONE (21:40)
[2017-11-30] MEDS: CHLORHEXIDINE GLUCONATE 4% CLEANSER FOR DECOLONIZATION TP SCH (21:42)
[2017-11-30] MEDS: QUEtiapine FUMARATE 25 MG TABLET (FP) PO SCH (21:44)
[2017-11-30] MEDS: MINERAL OIL/PETROLATUM,WHITE 3.5 GM TUBE OU SCH (21:48)
[2017-11-30] MEDS ORDERED: PHENYLEPHRINE HCL 20,000 MCG in SODIUM CHLORIDE 248 ML IVPB SCH (23:45)
[2017-11-30] MEDS ORDERED: fentaNYL CITRATE 250 MCG/5 ML VIAL ONE (23:53)
[2017-12-01] MEDS: FENTANYL INJECTION 500 MCG in SODIUM CHLORIDE 90 ML IVPB SCH ×2 (00:10→09:33)
[2017-12-01] MEDS: ACETAMINOPHEN 325 MG TABLET (FP) PO PRN ×2 (00:19→10:16)
[2017-12-01] MEDS: METOPROLOL TARTRATE 5 MG/5 ML VIAL IVPUSH PRN ×2 (00:26→09:34)
[2017-12-01] MEDS: BANATROL PLUS POWDER PACKET PEG SCH ×3 (06:06→21:45)
[2017-12-01] MEDS: INSULIN SLIDING SCALE (NOVOLOG) 1 VIAL SQ SCH ×4 (06:16→21:45)
[2017-12-01] MEDS ORDERED: PT OWN MED DRAWER 7, Y5N ONE ×4 (06:25→21:44)
[2017-12-01 06:33] LABS: ARTERIAL BLD GAS O2 SATURATION 94.7 % (90-98.9); ARTERIAL BLOOD GAS PO2 69.2 mmHg (80-100); ARTERIAL BLOOD GAS pH 7.46 (7.35-7.45)
[2017-12-01 06:35] LABS: ALLENS TEST POSITIVE
[2017-12-01 06:37] LABS: ARTERIAL BLOOD GAS BASE EXCESS 18.7 meq/l (-2-2); ARTERIAL BLOOD GAS PCO2 64.9 mmHg (35-45)
[2017-12-01 06:41] LABS: HEMATOCRIT 26.6 % (35.4-49); HEMOGLOBIN 8.4 GM/dL (11.7-16.9); MCH 31.4 pg (25.7-33.7); MCHC 31.4 g/dl (32.0-35.9); MEAN PLT VOLUME 11.7 fl (7.5-11.1); PLATELET COUNT 129 K/MM3 (134-434); RBC 2.66 M/mm3 (4.00-5.60); RDW 16.6 % (11.9-15.9); WHITE BLOOD COUNT 13.4 K/mm3 (4.0-10.0)
[2017-12-01 07:06] LABS: CALCIUM 8.8 mg/dL (8.5-10.1); CHLORIDE 99 mmol/L (98-107); CREATININE 0.8 mg/dL (0.7-1.3); MAGNESIUM 2.5 mg/dL (1.8-2.4); PHOSPHOROUS 2.4 mg/dL (2.5-4.9); POTASSIUM 4.8 mmol/L (3.5-5.1); SGOT/AST 22 U/L (15-37); SGPT/ALT 35 U/L (12-78); SODIUM 147 mmol/L (136-145)
[2017-12-01 07:10] LABS: ALK PHOS 120 U/L (45-117); BILIRUBIN,TOTAL 0.6 mg/dL (0.2-1.0); BLOOD UREA NITROGEN 50 mg/dL (7-18); INR 1.49 (0.82-1.09); PROTHROMBIN TIME (PATIENT) 16.8 SEC (9.98-11.88); TOT PROT 7.9 g/dl (6.4-8.2)
[2017-12-01 07:12] LABS: ACTIVATED PTT 30.2 SECONDS (26.9-34.4)
[2017-12-01 07:15] LABS: GLUCOSE,RANDOM 27 mg/dL (74-106)
[2017-12-01] MEDS ORDERED: DEXTROSE 50%-WATER 25 GM/50 ML DISP.SYRIN ONE (07:16)
[2017-12-01] MEDS ORDERED: DEXTROSE 50%-WATER - 25 GM/50 ML VIAL IVPUSH ONE (07:16)
[2017-12-01] MEDS: INSULIN DETEMIR 100 UNITS/ML MDV SQ SCH (07:18)
[2017-12-01 07:50] LABS: ANION GAP 1 (8-16); CO2 47 mmol/L (21-32)
[2017-12-01] MEDS: ALBUTEROL SO4 2.5/IPRATROPIUM 0.5 INH SOL 3 ML VIAL.NEB. NEB SCH ×4 (08:05→20:14)
[2017-12-01] MEDS ORDERED: fentaNYL CITRATE 250 MCG/5 ML VIAL ONE (09:09)
[2017-12-01] MEDS: predniSONE 20 MG TABLET (UD) PO SCH (09:31)
[2017-12-01] MEDS: FERROUS SO4 300 MG/5 ML ORAL SOLN UNIT DOSE CUPS GT SCH (09:32)
[2017-12-01] MEDS: RANITIDINE HCL 150 MG TABLET (FP) PO SCH (09:32)
[2017-12-01] MEDS: ROFLUMILAST 500 MCG TABLET NGT SCH (09:32)
[2017-12-01] MEDS: APIXABAN 5 MG TABLET PO SCH ×2 (09:32→21:44)
[2017-12-01] MEDS: LACTOBACILLUS ACIDOPHILUS 1 EACH TAB (FP) PEG SCH (09:32)
[2017-12-01] MEDS: LYTES/YERBA SANTA 240 ML BOTTLE MM SCH ×2 (10:01→16:39)
[2017-12-01 10:08] LABS: ANISOCYTOSIS 1+; MACROCYTOSIS 0; PLATELET ESTIMATE DECREASED; TEAR DROP CELLS 1+
[2017-12-01 10:52] LABS: TOXIC GRANULATION 2+
[2017-12-01] MEDS ORDERED: morphine SULFATE 4 MG/ML VIAL IVPUSH PRN (11:37)
--- NOTE | 2017-12-01 12:47 | PN ---
Teaching Attending Note Name of Resident: Alex Parish ATTENDING PHYSICIAN STATEMENT I saw and evaluated the patient. I reviewed the resident's note and discussed the case with the resident. I agree with the resident's findings and plan as documented. SUBJECTIVE: Patient seen and examined in the ICU. Vented, tachypneic. No pressors. Febrile OBJECTIVE: Intake & Output 11/28/17 11/29/17 11/30/17 12/01/17 23:59 23:59 23:59 23:59 Intake Total 2140 2680 3230 0 Output Total 600 1100 1301 Balance 1540 1580 1929 0 Weight 81 lb 6.4 oz 80 lb 6.4 oz 81 lb 8 oz 78 lb 4 oz Last Vital Signs Temp Pulse Resp BP Pulse Ox 102.5 F H 131 H 26 H 91/54 99 12/01/17 10:00 12/01/17 11:25 12/01/17 11:25 12/01/17 10:00 12/01/17 12:05 Active Medications Acetaminophen (Tylenol -) 650 mg PO Q6H PRN PRN Reason: FEVER Last Admin: 12/01/17 10:16 Dose: 650 mg Acetaminophen (Ofirmev Injection -) 1,000 mg IVPB Q6H PRN PRN Reason: FEVER Last Admin: 11/26/17 17:31 Dose: 1,000 mg Albuterol/Ipratropium (Duoneb -) 1 amp NEB RQID [facility] Last Admin: 12/01/17 12:29 Dose: 1 amp Alprazolam (Xanax -) 0.5 mg PO Q8H PRN PRN Reason: ANXIETY Last Admin: 11/29/17 02:03 Dose: 0.5 mg Apixaban (Eliquis -) 5 mg PO BID [facility] Last Admin: 12/01/17 09:32 Dose: 5 mg Artificial Tears (Artificial Tears Ointment -) 1 applic OU HS [facility] Last Admin: 11/30/17 21:48 Dose: 1 applic Chlorhexidine Gluconate (Hibiclens For Decolonization -) 1 applic TP HS [facility] Last Admin: 11/30/17 21:42 Dose: 1 applic Ferrous Sulfate (Feosol) 300 mg GT DAILY [facility] Last Admin: 12/01/17 09:32 Dose: 300 mg Propofol (Diprivan -) 1,000,000 mcg in 100 mls @ 0.555 mls/hr IVPB TITR SONAL; 2.5 MCG/KG/MIN PRN Reason: Protocol Last Admin: 11/30/17 19:17 Dose: 2.5 mcg/kg/min, 0.555 mls/hr Fentanyl 500 mcg/ Sodium (Chloride) 100 mls @ 15 mls/hr IVPB TITR SONAL; 75 MCG/ HR PRN Reason: Protocol Last Admin: 12/01/17 09:33 Dose: 15 mls/hr Insulin Aspart (Novolog Vial Sliding Scale -) 1 vial SQ ACHS SONAL PRN Reason: Protocol Last Admin: 12/01/17 10:02 Dose: Not Given Lactobacillus Acidophilus (Bacid -) 1 tab PEG DAILY [facility] Last Admin: 12/01/17 09:32 Dose: 1 tab Metoprolol Tartrate (Lopressor Injection -) 5 mg IVPUSH Q4H PRN PRN Reason: HYPERTENSION Last Admin: 12/01/17 09:34 Dose: 5 mg Morphine Sulfate (Morphine Sulfate) 4 mg IVPUSH Q2H PRN PRN Reason: pain and agonal breathing Prednisone (Deltasone -) 40 mg PO DAILY [facility] Last Admin: 12/01/17 09:31 Dose: 40 mg Quetiapine Fumarate (Seroquel -) 25 mg PO HS [facility] Last Admin: 11/30/17 21:44 Dose: 25 mg Ranitidine HCl (Zantac -) 150 mg PO DAILY [facility] Last Admin: 12/01/17 09:32 Dose: 150 mg Roflumilast (Daliresp -) 500 mcg NGT DAILY [facility] Last Admin: 12/01/17 09:32 Dose: 500 mcg Saliva Substitute (Mouthkote Solution -) 1 applic MM DAILY [facility] Last Admin: 12/01/17 10:01 Dose: Not Given Gen: vented, tachypneic, cachectic Heart: tachycardic, regular Lung: scattered rhonchi Abd: soft, nontender Ext: no edema Laboratory Results - last 24 hr 11/30/17 11/30/17 11/30/17 05:16 12:14 12:25 WBC RBC Hgb Hct MCV MCH MCHC RDW Plt Count MPV Neutrophils % Neutrophils % (Manual) Band Neutrophils % Lymphocytes % Lymphocytes % (Manual) Monocytes % (Manual) Eosinophils % (Manual) Basophils % (Manual) Myelocytes % (Man) Promyelocytes % (Man) Nucleated RBC % Metamyelocytes Hypochromia Toxic Granulation Platelet Estimate Polychromasia Poikilocytosis Anisocytosis Microcytosis Macrocytosis Tear Drop Cells PT with INR INR PTT (Actin FS) Puncture Site ABG pH ABG pCO2 at Pt Temp ABG pO2 at Pt Temp ABG HCO3 ABG O2 Sat (Measured) ABG O2 Content ABG Base Excess Dionte Test O2 Delivery Device Oxygen Flow Rate Vent Mode Vent Rate PEEP Pressure Support Vent Sodium Potassium Chloride Carbon Dioxide Anion Gap BUN Creatinine Creat Clearance w eGFR POC Glucometer 179.07501 171.23878 Random Glucose Calcium Phosphorus Magnesium Total Bilirubin AST ALT Alkaline Phosphatase Troponin I 0.09 H Total Protein Albumin 11/30/17 11/30/17 11/30/17 16:18 18:00 21:38 WBC RBC Hgb Hct MCV MCH MCHC RDW Plt Count MPV Neutrophils % Neutrophils % (Manual) Band Neutrophils % Lymphocytes % Lymphocytes % (Manual) Monocytes % (Manual) Eosinophils % (Manual) Basophils % (Manual) Myelocytes % (Man) Promyelocytes % (Man) Nucleated RBC % Metamyelocytes Hypochromia Toxic Granulation Platelet Estimate Polychromasia Poikilocytosis Anisocytosis Microcytosis Macrocytosis Tear Drop Cells PT with INR INR PTT (Actin FS) Puncture Site ABG pH ABG pCO2 at Pt Temp ABG pO2 at Pt Temp ABG HCO3 ABG O2 Sat (Measured) ABG O2 Content ABG Base Excess Dionte Test O2 Delivery Device Oxygen Flow Rate Vent Mode Vent Rate PEEP Pressure Support Vent Sodium Potassium Chloride Carbon Dioxide Anion Gap BUN Creatinine Creat Clearance w eGFR POC Glucometer 157.57244 154.28898 Random Glucose Calcium Phosphorus Magnesium Total Bilirubin AST ALT Alkaline Phosphatase Troponin I 0.10 H Total Protein Albumin 12/01/17 12/01/17 12/01/17 00:47 05:51 06:15 WBC 13.4 H D RBC 2.66 L Hgb 8.4 L Hct 26.6 L MCV 100.0 H MCH 31.4 MCHC 31.4 L RDW 16.6 H Plt Count 129 L MPV 11.7 H Neutrophils % No Result Required. Neutrophils % (Manual) 33.0 L D Band Neutrophils % 43.0 Lymphocytes % No Result Required. Lymphocytes % (Manual) 13.0 D Monocytes % (Manual) 9 D Eosinophils % (Manual) 0.0 D Basophils % (Manual) 0.0 Myelocytes % (Man) 0 Promyelocytes % (Man) 0 Nucleated RBC % 0 Metamyelocytes 1 D Hypochromia 0 Toxic Granulation 2+ Platelet Estimate Decreased Polychromasia 0 Poikilocytosis 0 Anisocytosis 1+ Microcytosis 1+ Macrocytosis 0 Tear Drop Cells 1+ PT with INR INR PTT (Actin FS) Puncture Site ABG pH ABG pCO2 at Pt Temp ABG pO2 at Pt Temp ABG HCO3 ABG O2 Sat (Measured) ABG O2 Content ABG Base Excess Dionte Test O2 Delivery Device Oxygen Flow Rate Vent Mode Vent Rate PEEP Pressure Support Vent Sodium Potassium Chloride Carbon Dioxide Anion Gap BUN Creatinine Creat Clearance w eGFR POC Glucometer 56.37329 Random Glucose Calcium Phosphorus Magnesium Total Bilirubin AST ALT Alkaline Phosphatase Troponin I 0.09 H Total Protein Albumin 12/01/17 12/01/17 12/01/17 06:15 06:15 06:27 WBC RBC Hgb Hct MCV MCH MCHC RDW Plt Count MPV Neutrophils % Neutrophils % (Manual) Band Neutrophils % Lymphocytes % Lymphocytes % (Manual) Monocytes % (Manual) Eosinophils % (Manual) Basophils % (Manual) Myelocytes % (Man) Promyelocytes % (Man) Nucleated RBC % Metamyelocytes Hypochromia Toxic Granulation Platelet Estimate Polychromasia Poikilocytosis Anisocytosis Microcytosis Macrocytosis Tear Drop Cells PT with INR 16.80 H INR 1.49 H D PTT (Actin FS) 30.2 Puncture Site Right radial ABG pH 7.46 H D ABG pCO2 at Pt Temp 64.9 H* D ABG pO2 at Pt Temp 69.2 L D ABG HCO3 45.1 H* ABG O2 Sat (Measured) 94.7 ABG O2 Content 10.8 L ABG Base Excess 18.7 H* Dionte Test Positive O2 Delivery Device Vent Oxygen Flow Rate 100 Vent Mode A/c Vent Rate 14 PEEP 5.0 Pressure Support Vent 450 Sodium 147 H Potassium 4.8 Chloride 99 Carbon Dioxide 47 H Anion Gap 1 L BUN 50 H D Creatinine 0.8 Creat Clearance w eGFR > 60 POC Glucometer Random Glucose 27 L* D Calcium 8.8 Phosphorus 2.4 L D Magnesium 2.5 H Total Bilirubin 0.6 D AST 22 ALT 35 Alkaline Phosphatase 120 H Troponin I Total Protein 7.9 Albumin 2.0 L 12/01/17 09:21 WBC RBC Hgb Hct MCV MCH MCHC RDW Plt Count MPV Neutrophils % Neutrophils % (Manual) Band Neutrophils % Lymphocytes % Lymphocytes % (Manual) Monocytes % (Manual) Eosinophils % (Manual) Basophils % (Manual) Myelocytes % (Man) Promyelocytes % (Man) Nucleated RBC % Metamyelocytes Hypochromia Toxic Granulation Platelet Estimate Polychromasia Poikilocytosis Anisocytosis Microcytosis Macrocytosis Tear Drop Cells PT with INR INR PTT (Actin FS) Puncture Site ABG pH ABG pCO2 at Pt Temp ABG pO2 at Pt Temp ABG HCO3 ABG O2 Sat (Measured) ABG O2 Content ABG Base Excess Dionte Test O2 Delivery Device Oxygen Flow Rate Vent Mode Vent Rate PEEP Pressure Support Vent Sodium Potassium Chloride Carbon Dioxide Anion Gap BUN Creatinine Creat Clearance w eGFR POC Glucometer 168.89837 Random Glucose Calcium Phosphorus Magnesium Total Bilirubin AST ALT Alkaline Phosphatase Troponin I Total Protein Albumin Problem List - Problems (1) Acute respiratory failure with hypoxia Code(s): J96.01 - ACUTE RESPIRATORY FAILURE WITH HYPOXIA (2) Pneumonia Code(s): J18.9 - PNEUMONIA, UNSPECIFIED ORGANISM (3) Diabetes Code(s): E11.9 - TYPE 2 DIABETES MELLITUS WITHOUT COMPLICATIONS ASSESSMENT AND PLAN: Acute Hypoxic Respiratory Failure s/p Tracheostomy Pneumonia treated Sepsis Interstitial Lung Disease Acute Diastolic Heart Failure improved Acute Kidney Injury Lactic Acidosis resolved DM RLE DVT - ID evaluation - monitor urine output, creatinine - Prednisone - Anxiolytics, seroquel qHS - Enteral feeds - continue anticoagulation, monitor H/H - Morphine for comfort / RR - Taper FiO2 to keep SpO2 >90% - Not a candidate for spontaneous breathing trials - DVT/GI prophylaxis - continue discussions regarding goals of care as pt with clinical deterioration and limited options - continue ICU monitoring for now Dr Souza Critical care time spent in reviewing chart, evaluating patient and formulating plan 36 min
--- NOTE | 2017-12-01 13:36 | PN ---
Teaching Attending Note Name of Resident: Russell Anderson ATTENDING PHYSICIAN STATEMENT Time of evaluation: 9:30 AM I saw and evaluated the patient. I reviewed the resident's note and discussed the case with the resident. I agree with the resident's findings and plan as documented. SUBJECTIVE: patient seen and examined, tachypneic, sedated, unable to assess for ROS. OBJECTIVE: Vital Signs Period Temp Pulse Resp BP Sys/Sutton Pulse Ox Last 24 Hr 98 F-102.5 F 113-141 3-35 88-147/54-71 91-100 Intake & Output 11/28/17 11/29/17 11/30/17 12/01/17 23:59 23:59 23:59 23:59 Intake Total 2140 2680 3230 0 Output Total 600 1100 1301 Balance 1540 1580 1929 0 Weight 81 lb 6.4 oz 80 lb 6.4 oz 81 lb 8 oz 78 lb 4 oz general: sedated, tachypneic in bed CVS;S1S2 regular, tachycardic Chest: bilateral rhoncherous sounds, posterior fine rales Abdomen: scaphoid, PEG in place, positive bowel sounds extremities: no edema Home Medication List Medication Instructions Recorded Confirmed Type Glipizide [Glucotrol Xl] 0 mg PO ASDIR 10/17/17 10/17/17 History Metformin HCl 0 mg PO ASDIR 10/17/17 10/17/17 History Tamsulosin HCl 0.4 mg PO DAILY 10/17/17 10/17/17 History Active Medications Generic Name Dose Route Start Last Admin Trade Name Freq PRN Reason Stop Dose Admin Acetaminophen 650 mg 11/22/17 23:20 12/01/17 10:16 Tylenol - PO 650 mg Q6H PRN Administration FEVER Acetaminophen 1,000 mg 11/22/17 23:20 11/26/17 17:31 Ofirmev Injection - IVPB 1,000 mg Q6H PRN Administration FEVER Albuterol/Ipratropium 1 amp 11/23/17 08:00 12/01/17 12:29 Duoneb - NEB 1 amp RQID SONAL Administration Alprazolam 0.5 mg 11/23/17 11:38 11/29/17 02:03 Xanax - PO 0.5 mg Q8H PRN Administration ANXIETY Apixaban 5 mg 11/23/17 10:00 12/01/17 09:32 Eliquis - PO 5 mg BID SONAL Administration Artificial Tears 1 applic 11/23/17 22:00 11/30/17 21:48 Artificial Tears Ointment - OU 1 applic HS SONAL Administration Chlorhexidine Gluconate 1 applic 11/22/17 22:00 11/30/17 21:42 Hibiclens For Decolonization - TP 1 applic HS SONAL Administration Ferrous Sulfate 300 mg 11/23/17 10:00 12/01/17 09:32 Feosol GT 300 mg DAILY SONAL Administration Propofol 1,000,000 mcg in 100 mls @ 0.555 mls/hr 11/30/17 18:45 11/30/17 19: 17 Diprivan - IVPB 2.5 mcg/kg/min TITR SONAL 0.555 mls/hr Protocol Administration 2.5 MCG/KG/MIN Fentanyl 500 mcg/ Sodium 100 mls @ 15 mls/hr 11/30/17 23:45 12/01/17 09:33 Chloride IVPB 15 mls/hr TITR SONAL Administration Protocol 75 MCG/HR Insulin Aspart 1 vial 11/23/17 07:00 12/01/17 10:02 Novolog Vial Sliding Scale - SQ Not Given ACHS SONAL Protocol Lactobacillus Acidophilus 1 tab 11/23/17 10:00 12/01/17 09:32 Bacid - PEG 1 tab DAILY [facility]ONAL Administration Metoprolol Tartrate 5 mg 11/22/17 23:20 12/01/17 09:34 Lopressor Injection - IVPUSH 5 mg Q4H PRN Administration HYPERTENSION Morphine Sulfate 4 mg 12/01/17 12:52 Morphine Sulfate IVPUSH Q2H PRN agonal breathing Prednisone 40 mg 11/23/17 10:00 12/01/17 09:31 Deltasone - PO 40 mg DAILY [facility]ONAL Administration Quetiapine Fumarate 25 mg 11/23/17 22:00 11/30/17 21:44 Seroquel - PO 25 mg HS SONAL Administration Ranitidine HCl 150 mg 11/23/17 10:00 12/01/17 09:32 Zantac - PO 150 mg DAILY [facility]ON[facility] Administration Roflumilast 500 mcg 11/23/17 10:00 12/01/17 09:32 Daliresp - NGT 500 mcg DAILY [facility]ON[facility] Administration Saliva Substitute 1 applic 11/23/17 10:00 12/01/17 10:01 Mouthkote Solution - MM Not Given DAILY [facility] Laboratory Results - last 24 hr 11/30/17 11/30/17 11/30/17 16:18 18:00 21:38 WBC RBC Hgb Hct MCV MCH MCHC RDW Plt Count MPV Neutrophils % Neutrophils % (Manual) Band Neutrophils % Lymphocytes % Lymphocytes % (Manual) Monocytes % (Manual) Eosinophils % (Manual) Basophils % (Manual) Myelocytes % (Man) Promyelocytes % (Man) Nucleated RBC % Metamyelocytes Hypochromia Toxic Granulation Platelet Estimate Polychromasia Poikilocytosis Anisocytosis Microcytosis Macrocytosis Tear Drop Cells PT with INR INR PTT (Actin FS) Puncture Site ABG pH ABG pCO2 at Pt Temp ABG pO2 at Pt Temp ABG HCO3 ABG O2 Sat (Measured) ABG O2 Content ABG Base Excess Dionte Test O2 Delivery Device Oxygen Flow Rate Vent Mode Vent Rate PEEP Pressure Support Vent Sodium Potassium Chloride Carbon Dioxide Anion Gap BUN Creatinine Creat Clearance w eGFR POC Glucometer 157.29189 154.98181 Random Glucose Calcium Phosphorus Magnesium Total Bilirubin AST ALT Alkaline Phosphatase Troponin I 0.10 H Total Protein Albumin 12/01/17 12/01/17 12/01/17 00:47 05:51 06:15 WBC 13.4 H D RBC 2.66 L Hgb 8.4 L Hct 26.6 L MCV 100.0 H MCH 31.4 MCHC 31.4 L RDW 16.6 H Plt Count 129 L MPV 11.7 H Neutrophils % No Result Required. Neutrophils % (Manual) 33.0 L D Band Neutrophils % 43.0 Lymphocytes % No Result Required. Lymphocytes % (Manual) 13.0 D Monocytes % (Manual) 9 D Eosinophils % (Manual) 0.0 D Basophils % (Manual) 0.0 Myelocytes % (Man) 0 Promyelocytes % (Man) 0 Nucleated RBC % 0 Metamyelocytes 1 D Hypochromia 0 Toxic Granulation 2+ Platelet Estimate Decreased Polychromasia 0 Poikilocytosis 0 Anisocytosis 1+ Microcytosis 1+ Macrocytosis 0 Tear Drop Cells 1+ PT with INR INR PTT (Actin FS) Puncture Site ABG pH ABG pCO2 at Pt Temp ABG pO2 at Pt Temp ABG HCO3 ABG O2 Sat (Measured) ABG O2 Content ABG Base Excess Dionte Test O2 Delivery Device Oxygen Flow Rate Vent Mode Vent Rate PEEP Pressure Support Vent Sodium Potassium Chloride Carbon Dioxide Anion Gap BUN Creatinine Creat Clearance w eGFR POC Glucometer 56.75028 Random Glucose Calcium Phosphorus Magnesium Total Bilirubin AST ALT Alkaline Phosphatase Troponin I 0.09 H Total Protein Albumin 12/01/17 12/01/17 12/01/17 06:15 06:15 06:27 WBC RBC Hgb Hct MCV MCH MCHC RDW Plt Count MPV Neutrophils % Neutrophils % (Manual) Band Neutrophils % Lymphocytes % Lymphocytes % (Manual) Monocytes % (Manual) Eosinophils % (Manual) Basophils % (Manual) Myelocytes % (Man) Promyelocytes % (Man) Nucleated RBC % Metamyelocytes Hypochromia Toxic Granulation Platelet Estimate Polychromasia Poikilocytosis Anisocytosis Microcytosis Macrocytosis Tear Drop Cells PT with INR 16.80 H INR 1.49 H D PTT (Actin FS) 30.2 Puncture Site Right radial ABG pH 7.46 H D ABG pCO2 at Pt Temp 64.9 H* D ABG pO2 at Pt Temp 69.2 L D ABG HCO3 45.1 H* ABG O2 Sat (Measured) 94.7 ABG O2 Content 10.8 L ABG Base Excess 18.7 H* Dionte Test Positive O2 Delivery Device Vent Oxygen Flow Rate 100 Vent Mode A/c Vent Rate 14 PEEP 5.0 Pressure Support Vent 450 Sodium 147 H Potassium 4.8 Chloride 99 Carbon Dioxide 47 H Anion Gap 1 L BUN 50 H D Creatinine 0.8 Creat Clearance w eGFR > 60 POC Glucometer Random Glucose 27 L* D Calcium 8.8 Phosphorus 2.4 L D Magnesium 2.5 H Total Bilirubin 0.6 D AST 22 ALT 35 Alkaline Phosphatase 120 H Troponin I Total Protein 7.9 Albumin 2.0 L 12/01/17 09:21 WBC RBC Hgb Hct MCV MCH MCHC RDW Plt Count MPV Neutrophils % Neutrophils % (Manual) Band Neutrophils % Lymphocytes % Lymphocytes % (Manual) Monocytes % (Manual) Eosinophils % (Manual) Basophils % (Manual) Myelocytes % (Man) Promyelocytes % (Man) Nucleated RBC % Metamyelocytes Hypochromia Toxic Granulation Platelet Estimate Polychromasia Poikilocytosis Anisocytosis Microcytosis Macrocytosis Tear Drop Cells PT with INR INR PTT (Actin FS) Puncture Site ABG pH ABG pCO2 at Pt Temp ABG pO2 at Pt Temp ABG HCO3 ABG O2 Sat (Measured) ABG O2 Content ABG Base Excess Dionte Test O2 Delivery Device Oxygen Flow Rate Vent Mode Vent Rate PEEP Pressure Support Vent Sodium Potassium Chloride Carbon Dioxide Anion Gap BUN Creatinine Creat Clearance w eGFR POC Glucometer 168.77618 Random Glucose Calcium Phosphorus Magnesium Total Bilirubin AST ALT Alkaline Phosphatase Troponin I Total Protein Albumin Microbiology 11/18/17 21:30 Stool Clostridium difficile Antigen (CH[facility]) - Final 11/18/17 21:30 Stool Clostridium difficile Toxin Assay - Final 11/13/17 17:30 Blood - Peripheral Venous Blood Culture - Final NO GROWTH AFTER 5 DAYS INCUBATION 11/13/17 17:10 Blood - Peripheral Venous Blood Culture - Final NO GROWTH AFTER 5 DAYS INCUBATION 11/14/17 14:30 Sputum - Endotrachea Suction/Ventilator Gram Stain - Final 11/14/17 14:30 Sputum - Endotrachea Suction/Ventilator Sputum Culture - Final Klebsiella Pneumoniae 11/14/17 22:00 Urine - Urine Clean Catch Urine Culture - Final Yeast Like Organism 11/15/17 11:00 Nasopharyngeal Swab Influenza Types A,B Antigen ([facility]) - Final 11/15/17 11:00 Nasopharyngeal Swab - Final 10/21/17 06:00 Serum Cryptococcal Antigen - Final 10/19/17 19:30 Sputum - Expectorated Gram Stain - Final 10/19/17 19:30 Sputum - Expectorated Sputum Culture - Final NORMAL RESPIRATORY TOYIN 10/17/17 10:10 Blood - Peripheral Venous Blood Culture - Final NO GROWTH AFTER 5 DAYS INCUBATION 10/17/17 10:10 Blood - Peripheral Venous Blood Culture - Final NO GROWTH AFTER 5 DAYS INCUBATION 10/17/17 13:57 Urine - Urine Clean Catch Urine Culture - Final NO GROWTH OBTAINED 10/17/17 13:57 Urine For Antigen Detection Legionella Antigen - Final 10/17/17 13:57 Urine For Antigen Detection Streptococcus pneumoniae Antigen (M - Final 10/17/17 10:25 Nasopharyngeal Swab Influenza Types A,B Antigen ([facility]) - Final 10/17/17 10:25 Nasopharyngeal Swab - Final ASSESSMENT AND PLAN: 62 yo M active smoker, pMHx of NIDDM, PUD, BPH admitted with acute hypoxic respiratory failure, and extensive RLE DVT -Left sided chest pain 11/29 -Acute hypoxic respiratory failure, suspect from ?ILD with pneumonitis s/p intubation 11/03, trach 11/07, exchanged 11/11 for cuff, now recurrent worsening respiratory failure, suspected aspiration PNA with sepsis -Extensive RLE Acute DVT, s/p IVC filter 10/20, thrombectomy 10/24 - Acute diastolic heart failure -Sepsis on admission, likely from PNA, now recurrent concerns for aspiration PNA -Lactic acidosis, from sepsis vs increased work of breathing, resolved -MIRLANDE on admission from sepsis, now recurrent, ?Sepsis, vs ATN , obstructive process ruled out -Hypernatremia, likely hypovolumic -Thrombocytopenia -Elevated INR -Chest wall and right sided abdominal pain -NIDDM -PUD -BPH -Cachexia/malnutrition -Unwitnessed fall 11/19/2017 Plan: recurrent fevers/hypoxia, sedated now. ?aspiration. Blood cultures. CXR noted. reconsult ID for input. Decrease tube feeds to 40 ml/hr. Placed on morphine prn by ICU. Hypernatremia worsened. Will hold off in additional free water or IVF given tenuous respiratory status. Prognosis poor, continue to address overall of goals of care, given continued clinical deterioration and limited options. Palliative care on board. total critical care time spent in ICU 35 min.
--- NOTE | 2017-12-01 13:55 | PN ---
Progress Note, Physician History of Present Illness: Doing poorly Not responsive Agonal breathing pattern Now with fever, hypotension, hypoxemia. WBC elevated CXR new R infiltrate - Current Medication List Current Medications: Active Medications Acetaminophen (Tylenol -) 650 mg PO Q6H PRN PRN Reason: FEVER Last Admin: 12/01/17 10:16 Dose: 650 mg Acetaminophen (Ofirmev Injection -) 1,000 mg IVPB Q6H PRN PRN Reason: FEVER Last Admin: 11/26/17 17:31 Dose: 1,000 mg Albuterol/Ipratropium (Duoneb -) 1 amp NEB RQID [facility]ON[facility] Last Admin: 12/01/17 12:29 Dose: 1 amp Alprazolam (Xanax -) 0.5 mg PO Q8H PRN PRN Reason: ANXIETY Last Admin: 11/29/17 02:03 Dose: 0.5 mg Apixaban (Eliquis -) 5 mg PO BID [facility] Last Admin: 12/01/17 09:32 Dose: 5 mg Artificial Tears (Artificial Tears Ointment -) 1 applic OU HS [facility] Last Admin: 11/30/17 21:48 Dose: 1 applic Chlorhexidine Gluconate (Hibiclens For Decolonization -) 1 applic TP HS [facility] Last Admin: 11/30/17 21:42 Dose: 1 applic Ferrous Sulfate (Feosol) 300 mg GT DAILY [facility] Last Admin: 12/01/17 09:32 Dose: 300 mg Propofol (Diprivan -) 1,000,000 mcg in 100 mls @ 0.555 mls/hr IVPB TITR SONAL; 2.5 MCG/KG/MIN PRN Reason: Protocol Last Admin: 11/30/17 19:17 Dose: 2.5 mcg/kg/min, 0.555 mls/hr Fentanyl 500 mcg/ Sodium (Chloride) 100 mls @ 15 mls/hr IVPB TITR SONAL; 75 MCG/ HR PRN Reason: Protocol Last Admin: 12/01/17 09:33 Dose: 15 mls/hr Insulin Aspart (Novolog Vial Sliding Scale -) 1 vial SQ ACHS SONAL PRN Reason: Protocol Last Admin: 12/01/17 10:02 Dose: Not Given Lactobacillus Acidophilus (Bacid -) 1 tab PEG DAILY [facility] Last Admin: 12/01/17 09:32 Dose: 1 tab Metoprolol Tartrate (Lopressor Injection -) 5 mg IVPUSH Q4H PRN PRN Reason: HYPERTENSION Last Admin: 12/01/17 09:34 Dose: 5 mg Morphine Sulfate (Morphine Sulfate) 4 mg IVPUSH Q2H PRN PRN Reason: agonal breathing Prednisone (Deltasone -) 40 mg PO DAILY [facility] Last Admin: 12/01/17 09:31 Dose: 40 mg Quetiapine Fumarate (Seroquel -) 25 mg PO HS [facility] Last Admin: 11/30/17 21:44 Dose: 25 mg Ranitidine HCl (Zantac -) 150 mg PO DAILY [facility] Last Admin: 12/01/17 09:32 Dose: 150 mg Roflumilast (Daliresp -) 500 mcg NGT DAILY [facility] Last Admin: 12/01/17 09:32 Dose: 500 mcg Saliva Substitute (Mouthkote Solution -) 1 applic MM DAILY [facility] Last Admin: 12/01/17 10:01 Dose: Not Given - Objective Vital Signs: Vital Signs Temperature 101.5 F H 12/01/17 12:58 Pulse Rate 133 H 12/01/17 12:00 Respiratory Rate 18 12/01/17 12:00 Blood Pressure 93/56 12/01/17 12:00 O2 Sat by Pulse Oximetry (%) 99 12/01/17 12:05 Constitutional: Yes: Cachectic Eyes: Yes: Conjunctiva Clear Cardiovascular: Yes: Regular Rate and Rhythm, Tachycardia, S1, S2 Respiratory: Yes: Mechanically Ventilated Gastrointestinal: Yes: Normal Bowel Sounds, Soft. No: Tenderness Edema: No Labs: CBC, BMP 12/01/17 06:15 12/01/17 06:15 INR, PTT INR 1.49 (0.82-1.09) H D 12/01/17 06:15 Assessment/Plan Hospital acquired R pneumonia Sepsis Interstitial lung disease Cultures obtained Empiric coverage HCAP with zosyn/ vancomycin Prognosis poor
[2017-12-01] MEDS ORDERED: VANCOMYCIN 1,000 MG in DEXTROSE 5%-WATER - 250 ML IVPB ONE (13:56)
[2017-12-01] MEDS: morphine SULFATE 4 MG/ML VIAL IVPUSH PRN ×2 (13:57→22:01)
[2017-12-01] MEDS ORDERED: PHENYLEPHRINE HCL 10 MG/1 ML SINGLE DOSE VIAL ONE ×4 (14:18→23:24)
[2017-12-01] MEDS: PHENYLEPHRINE HCL 20,000 MCG in SODIUM CHLORIDE 248 ML IVPB SCH ×4 (14:33→20:15)
--- NOTE | 2017-12-01 14:52 | PN ---
Progress Note, Physician Chief Complaint: Called to see for mildly increased troponin Not responsive Febrile with elevated WBC and PNA on CXray - Current Medication List Current Medications: Active Medications Acetaminophen (Tylenol -) 650 mg PO Q6H PRN PRN Reason: FEVER Last Admin: 12/01/17 10:16 Dose: 650 mg Acetaminophen (Ofirmev Injection -) 1,000 mg IVPB Q6H PRN PRN Reason: FEVER Last Admin: 11/26/17 17:31 Dose: 1,000 mg Albuterol/Ipratropium (Duoneb -) 1 amp NEB RQID [facility] Last Admin: 12/01/17 12:29 Dose: 1 amp Alprazolam (Xanax -) 0.5 mg PO Q8H PRN PRN Reason: ANXIETY Last Admin: 11/29/17 02:03 Dose: 0.5 mg Apixaban (Eliquis -) 5 mg PO BID [facility] Last Admin: 12/01/17 09:32 Dose: 5 mg Artificial Tears (Artificial Tears Ointment -) 1 applic OU HS [facility] Last Admin: 11/30/17 21:48 Dose: 1 applic Chlorhexidine Gluconate (Hibiclens For Decolonization -) 1 applic TP HS [facility] Last Admin: 11/30/17 21:42 Dose: 1 applic Ferrous Sulfate (Feosol) 300 mg GT DAILY [facility] Last Admin: 12/01/17 09:32 Dose: 300 mg Propofol (Diprivan -) 1,000,000 mcg in 100 mls @ 0.555 mls/hr IVPB TITR SONAL; 2.5 MCG/KG/MIN PRN Reason: Protocol Last Titration: 12/01/17 14:17 Dose: 0 mcg/kg/min, 0 mls/hr Piperacillin Sod/Tazobactam (Sod 3.375 gm/ Dextrose) 50 mls @ 100 mls/hr IVPB Q8H-IV [facility]ONAL PRN Reason: Protocol Vancomycin HCl 1,000 mg/ (Dextrose) 250 mls @ 166.667 mls/hr IVPB ONCE ONE Stop: 12/01/17 15:25 Phenylephrine HCl 20,000 mcg/ (Sodium Chloride) 250 mls @ 75 mls/hr IVPB ASDIR SONAL; 100 MCG/MIN PRN Reason: Protocol Last Titration: 12/01/17 14:40 Dose: 180 mcg/min, 135 mls/hr Insulin Aspart (Novolog Vial Sliding Scale -) 1 vial SQ ACHS SONAL PRN Reason: Protocol Last Admin: 12/01/17 10:02 Dose: Not Given Lactobacillus Acidophilus (Bacid -) 1 tab PEG DAILY [facility] Last Admin: 12/01/17 09:32 Dose: 1 tab Metoprolol Tartrate (Lopressor Injection -) 5 mg IVPUSH Q4H PRN PRN Reason: HYPERTENSION Last Admin: 12/01/17 09:34 Dose: 5 mg Morphine Sulfate (Morphine Sulfate) 4 mg IVPUSH Q2H PRN PRN Reason: agonal breathing Last Admin: 12/01/17 13:57 Dose: 4 mg Prednisone (Deltasone -) 40 mg PO DAILY [facility] Last Admin: 12/01/17 09:31 Dose: 40 mg Quetiapine Fumarate (Seroquel -) 25 mg PO HS [facility] Last Admin: 11/30/17 21:44 Dose: 25 mg Ranitidine HCl (Zantac -) 150 mg PO DAILY [facility] Last Admin: 12/01/17 09:32 Dose: 150 mg Roflumilast (Daliresp -) 500 mcg NGT DAILY [facility] Last Admin: 12/01/17 09:32 Dose: 500 mcg Saliva Substitute (Mouthkote Solution -) 1 applic MM DAILY [facility] Last Admin: 12/01/17 10:01 Dose: Not Given - Objective Vital Signs: Vital Signs Temperature 101.5 F H 12/01/17 12:58 Pulse Rate 129 H 12/01/17 14:40 Respiratory Rate 19 12/01/17 14:20 Blood Pressure 82/51 12/01/17 14:40 O2 Sat by Pulse Oximetry (%) 88 L 12/01/17 14:20 Constitutional: Yes: Thin, Other (agonal breathing, not responsive) Cardiovascular: Yes: Tachycardia, S1, S2 Respiratory: Yes: Mechanically Ventilated Gastrointestinal: Yes: Soft Edema: No Labs: CBC, BMP 12/01/17 06:15 12/01/17 06:15 INR, PTT INR 1.49 (0.82-1.09) H D 12/01/17 06:15 Assessment/Plan Patient with Troponin 0.9 with nl CK likely in setting of shock likely septic. CXray with R sided pna. Hypotensive, febrile, and elevated wbc. Echocardiogram 11/30/17 with normal LVEF Tele: sinus tachycardia -Patient is poor prognosis. No acute cardiac intervention at this time. Abx as per ID IVF's Pressors as needed Mechanical ventilation Please call back if needed
--- NOTE | 2017-12-01 15:00 | PN ---
Physical Exam: SUBJECTIVE: Patient seen and examined Pt's trach changed yesterday by Dr. Rosario. Last night, pt became very tachycardic and hypoxic to the 70s. Pt was sedated with propofol and fentanyl, and his O2 sats started trending up. This am, pt completely sedated, unresponsive to verbal or physical stimuli. OBJECTIVE: Vital Signs Period Temp Pulse Resp BP Sys/Sutton Pulse Ox Last 24 Hr 98 F-102.5 F 113-141 3-35 63-127/44-67 88-100 GENERAL: cachectic elderly male, vented, sedated HEENT: new trach, b/l miosis minimally responsive to light LUNGS: upper airway gurgling sounds, mechanical breath sounds HEART: difficult to assess over mechanical breath sounds ABDOMEN: scaphoid abdomen, soft, NT, mesh from hernia surgery is easily palpable EXTREMITIES: 2+ pulses, warm, well-perfused, no edema, emaciated. hands in todd mittens NEUROLOGICAL: Cranial nerves II through XII grossly intact Laboratory Results - last 24 hr 11/30/17 11/30/17 11/30/17 16:18 18:00 21:38 WBC RBC Hgb Hct MCV MCH MCHC RDW Plt Count MPV Neutrophils % Neutrophils % (Manual) Band Neutrophils % Lymphocytes % Lymphocytes % (Manual) Monocytes % (Manual) Eosinophils % (Manual) Basophils % (Manual) Myelocytes % (Man) Promyelocytes % (Man) Nucleated RBC % Metamyelocytes Hypochromia Toxic Granulation Platelet Estimate Polychromasia Poikilocytosis Anisocytosis Microcytosis Macrocytosis Tear Drop Cells PT with INR INR PTT (Actin FS) Puncture Site ABG pH ABG pCO2 at Pt Temp ABG pO2 at Pt Temp ABG HCO3 ABG O2 Sat (Measured) ABG O2 Content ABG Base Excess Dionte Test O2 Delivery Device Oxygen Flow Rate Vent Mode Vent Rate PEEP Pressure Support Vent Sodium Potassium Chloride Carbon Dioxide Anion Gap BUN Creatinine Creat Clearance w eGFR POC Glucometer 157.79621 154.25758 Random Glucose Calcium Phosphorus Magnesium Total Bilirubin AST ALT Alkaline Phosphatase Troponin I 0.10 H Total Protein Albumin 12/01/17 12/01/17 12/01/17 00:47 05:51 06:15 WBC 13.4 H D RBC 2.66 L Hgb 8.4 L Hct 26.6 L MCV 100.0 H MCH 31.4 MCHC 31.4 L RDW 16.6 H Plt Count 129 L MPV 11.7 H Neutrophils % No Result Required. Neutrophils % (Manual) 33.0 L D Band Neutrophils % 43.0 Lymphocytes % No Result Required. Lymphocytes % (Manual) 13.0 D Monocytes % (Manual) 9 D Eosinophils % (Manual) 0.0 D Basophils % (Manual) 0.0 Myelocytes % (Man) 0 Promyelocytes % (Man) 0 Nucleated RBC % 0 Metamyelocytes 1 D Hypochromia 0 Toxic Granulation 2+ Platelet Estimate Decreased Polychromasia 0 Poikilocytosis 0 Anisocytosis 1+ Microcytosis 1+ Macrocytosis 0 Tear Drop Cells 1+ PT with INR INR PTT (Actin FS) Puncture Site ABG pH ABG pCO2 at Pt Temp ABG pO2 at Pt Temp ABG HCO3 ABG O2 Sat (Measured) ABG O2 Content ABG Base Excess Dionte Test O2 Delivery Device Oxygen Flow Rate Vent Mode Vent Rate PEEP Pressure Support Vent Sodium Potassium Chloride Carbon Dioxide Anion Gap BUN Creatinine Creat Clearance w eGFR POC Glucometer 56.59931 Random Glucose Calcium Phosphorus Magnesium Total Bilirubin AST ALT Alkaline Phosphatase Troponin I 0.09 H Total Protein Albumin 12/01/17 12/01/17 12/01/17 06:15 06:15 06:27 WBC RBC Hgb Hct MCV MCH MCHC RDW Plt Count MPV Neutrophils % Neutrophils % (Manual) Band Neutrophils % Lymphocytes % Lymphocytes % (Manual) Monocytes % (Manual) Eosinophils % (Manual) Basophils % (Manual) Myelocytes % (Man) Promyelocytes % (Man) Nucleated RBC % Metamyelocytes Hypochromia Toxic Granulation Platelet Estimate Polychromasia Poikilocytosis Anisocytosis Microcytosis Macrocytosis Tear Drop Cells PT with INR 16.80 H INR 1.49 H D PTT (Actin FS) 30.2 Puncture Site Right radial ABG pH 7.46 H D ABG pCO2 at Pt Temp 64.9 H* D ABG pO2 at Pt Temp 69.2 L D ABG HCO3 45.1 H* ABG O2 Sat (Measured) 94.7 ABG O2 Content 10.8 L ABG Base Excess 18.7 H* Dionte Test Positive O2 Delivery Device Vent Oxygen Flow Rate 100 Vent Mode A/c Vent Rate 14 PEEP 5.0 Pressure Support Vent 450 Sodium 147 H Potassium 4.8 Chloride 99 Carbon Dioxide 47 H Anion Gap 1 L BUN 50 H D Creatinine 0.8 Creat Clearance w eGFR > 60 POC Glucometer Random Glucose 27 L* D Calcium 8.8 Phosphorus 2.4 L D Magnesium 2.5 H Total Bilirubin 0.6 D AST 22 ALT 35 Alkaline Phosphatase 120 H Troponin I Total Protein 7.9 Albumin 2.0 L 12/01/17 09:21 WBC RBC Hgb Hct MCV MCH MCHC RDW Plt Count MPV Neutrophils % Neutrophils % (Manual) Band Neutrophils % Lymphocytes % Lymphocytes % (Manual) Monocytes % (Manual) Eosinophils % (Manual) Basophils % (Manual) Myelocytes % (Man) Promyelocytes % (Man) Nucleated RBC % Metamyelocytes Hypochromia Toxic Granulation Platelet Estimate Polychromasia Poikilocytosis Anisocytosis Microcytosis Macrocytosis Tear Drop Cells PT with INR INR PTT (Actin FS) Puncture Site ABG pH ABG pCO2 at Pt Temp ABG pO2 at Pt Temp ABG HCO3 ABG O2 Sat (Measured) ABG O2 Content ABG Base Excess Dionte Test O2 Delivery Device Oxygen Flow Rate Vent Mode Vent Rate PEEP Pressure Support Vent Sodium Potassium Chloride Carbon Dioxide Anion Gap BUN Creatinine Creat Clearance w eGFR POC Glucometer 168.29225 Random Glucose Calcium Phosphorus Magnesium Total Bilirubin AST ALT Alkaline Phosphatase Troponin I Total Protein Albumin Active Medications Generic Name Dose Route Start Last Admin Trade Name Freq PRN Reason Stop Dose Admin Acetaminophen 650 mg 11/22/17 23:20 12/01/17 10:16 Tylenol - PO 650 mg Q6H PRN Administration FEVER Acetaminophen 1,000 mg 11/22/17 23:20 11/26/17 17:31 Ofirmev Injection - IVPB 1,000 mg Q6H PRN Administration FEVER Albuterol/Ipratropium 1 amp 11/23/17 08:00 12/01/17 12:29 Duoneb - NEB 1 amp RQID [facility] Administration Alprazolam 0.5 mg 11/23/17 11:38 11/29/17 02:03 Xanax - PO 0.5 mg Q8H PRN Administration ANXIETY Apixaban 5 mg 11/23/17 10:00 12/01/17 09:32 Eliquis - PO 5 mg BID SONAL Administration Artificial Tears 1 applic 11/23/17 22:00 11/30/17 21:48 Artificial Tears Ointment - OU 1 applic HS [facility] Administration Chlorhexidine Gluconate 1 applic 11/22/17 22:00 11/30/17 21:42 Hibiclens For Decolonization - TP 1 applic HS [facility] Administration Ferrous Sulfate 300 mg 11/23/17 10:00 12/01/17 09:32 Feosol GT 300 mg DAILY [facility] Administration Propofol 1,000,000 mcg in 100 mls @ 0.555 mls/hr 11/30/17 18:45 12/01/17 14: 17 Diprivan - IVPB 0 mcg/kg/min TITR SONAL 0 mls/hr Protocol Titration 2.5 MCG/KG/MIN Piperacillin Sod/Tazobactam 50 mls @ 100 mls/hr 12/01/17 14:00 Sod 3.375 gm/ Dextrose IVPB Q8H-IV SONAL Protocol Vancomycin HCl 1,000 mg/ 250 mls @ 166.667 mls/hr 12/01/17 13:56 Dextrose IVPB 12/01/17 15:25 ONCE ONE Phenylephrine HCl 20,000 mcg/ 250 mls @ 75 mls/hr 12/01/17 14:30 12/01/17 14: 40 Sodium Chloride IVPB 180 mcg/min ASDIR SONAL 135 mls/hr Protocol Titration 100 MCG/MIN Insulin Aspart 1 vial 11/23/17 07:00 12/01/17 10:02 Novolog Vial Sliding Scale - SQ Not Given ACHS [facility] Protocol Lactobacillus Acidophilus 1 tab 11/23/17 10:00 12/01/17 09:32 Bacid - PEG 1 tab DAILY [facility] Administration Metoprolol Tartrate 5 mg 11/22/17 23:20 12/01/17 09:34 Lopressor Injection - IVPUSH 5 mg Q4H PRN Administration HYPERTENSION Morphine Sulfate 4 mg 12/01/17 12:52 12/01/17 13:57 Morphine Sulfate IVPUSH 4 mg Q2H PRN Administration agonal breathing Prednisone 40 mg 11/23/17 10:00 12/01/17 09:31 Deltasone - PO 40 mg DAILY [facility] Administration Quetiapine Fumarate 25 mg 11/23/17 22:00 11/30/17 21:44 Seroquel - PO 25 mg HS SONAL Administration Ranitidine HCl 150 mg 11/23/17 10:00 12/01/17 09:32 Zantac - PO 150 mg DAILY [facility] Administration Roflumilast 500 mcg 11/23/17 10:00 12/01/17 09:32 Daliresp - NGT 500 mcg DAILY [facility] Administration Saliva Substitute 1 applic 11/23/17 10:00 12/01/17 10:01 Mouthkote Solution - MM Not Given DAILY [facility]ON[facility] CXR: new r sided infiltrate ASSESSMENT/PLAN: 62M w/ hx of active smoking, NIDDM, PUD, and BPH who presented with SOB, found to have acute hypoxic respiratory failure, extensive RLE DVT, sepsis likely 2/2 aspiration PNA, and acute diastolic CHF. #Acute hypoxic respiratory failure -suspect from ILD with pneumonitis, s/p intubation 11/03 with failed weaning and now s/p trach 11/07. trach exchanged 11/19. no gross signs of tracheomalacia. unable to titrate down FiO2. s/p trach change by Dr. Rosario on 11/30 -goal SpO2 >88% -continue prednisone 40mg -fentanyl, propofol #septic shock -leukocytosis of 13.4, temp of 100.4, tachycardia -ID on board, recs appreciated. started on vanc/zosyn for HCAP. -likely 2/2 aspiration PNA -fluids, pressors PRN, maintain MAP > 65 #chest pain -trop: 0.7--> 0.09--> 0.09 -EKG with new changes -Echo: grossly normal -cards: elevated trops from septic shock, no cardiac intervention at this point #RLE DVT -s/p IVC filter 10/20, thrombectmy 10/24 -continue eliquis 5mg BID, monitor for bleeding #Acute diastolic heart failure -s/p intermittent lasix IV. clinically euvolemic. will hold for now #Iron deficiency anemia and anemia of chronic disease -possible due to frequent blood draws and comorbidities - s/p 1 unit PRBC this hospital stay -cont iron supplementation #Hypernatremia -Na of 149--> 144--> 147 -continue free water flushes -continue to monitor #antibiotic assoc Diarrhea -likely due to prolonged abx use, now resolved -continue bacid and banatol. #continuous nicotine dependence -nicotine patch #cachexia -severe malnutrition evident by body habitus. lost 40+lbs this hospital stay. s/p PEG 11/09. -tolerating TF -changed from glucerna 1.5 to 2 loida to increase calorie intake, as per RD. #DM -improved -cont levemir 16 units BID -cont to titrate as needed. #Agitation -intermittent periods of agitation -continue seroquel HS -per nurse, todd helmss required because pt tries to pull out lines and tubes when he gets hypoxic and restless. #FEN/PPX -water flush tube feeds -correct Na -tube feeds -ranitidine -eliquis #Dispo -Poor overall prognosis -speak to HCP about goals of care Case discussed with attending, Dr. Ramirez. -Russell Anderson MD PGY1 Visit type - Emergency Visit Emergency Visit: Yes ED Registration Date: 10/17/17 Care time: The patient presented to the Emergency Department on the above date and was hospitalized for further evaluation of their emergent condition. - New Patient This patient is new to me today: No - Critical Care Critical Care patient: Yes Total Critical Care Time (in minutes): 38 Critical Care Statement: The care of this patient involved high complexity decision making to prevent further life threatening deterioration of the patient 's condition and/or to evaluate & treat vital organ system(s) failure or risk of failure.
[2017-12-01] MEDS: PIPERACILLIN/TAZOB 3.375 GM 3.375 GM in DEXTROSE 5%-WATER - 50 ML IVPB SCH ×2 (16:32→18:37)
[2017-12-01] MEDS ORDERED: HEMOQUE TEST 1 EACH EACH ONE (16:41)
--- NOTE | 2017-12-01 18:11 | PN ---
Progress Note, Physician History of Present Illness: Pt seen and examined at bedside. He is doing poorly. His respiratory status has been difficult to stabilize. - Current Medication List Current Medications: Active Medications Acetaminophen (Tylenol -) 650 mg PO Q6H PRN PRN Reason: FEVER Last Admin: 12/01/17 10:16 Dose: 650 mg Acetaminophen (Ofirmev Injection -) 1,000 mg IVPB Q6H PRN PRN Reason: FEVER Last Admin: 11/26/17 17:31 Dose: 1,000 mg Albuterol/Ipratropium (Duoneb -) 1 amp NEB RQID [facility] Last Admin: 12/01/17 16:03 Dose: 1 amp Alprazolam (Xanax -) 0.5 mg PO Q8H PRN PRN Reason: ANXIETY Last Admin: 11/29/17 02:03 Dose: 0.5 mg Apixaban (Eliquis -) 5 mg PO BID [facility] Last Admin: 12/01/17 09:32 Dose: 5 mg Artificial Tears (Artificial Tears Ointment -) 1 applic OU HS [facility] Last Admin: 11/30/17 21:48 Dose: 1 applic Chlorhexidine Gluconate (Hibiclens For Decolonization -) 1 applic TP HS [facility] Last Admin: 11/30/17 21:42 Dose: 1 applic Ferrous Sulfate (Feosol) 300 mg GT DAILY [facility] Last Admin: 12/01/17 09:32 Dose: 300 mg Propofol (Diprivan -) 1,000,000 mcg in 100 mls @ 0.555 mls/hr IVPB TITR SONAL; 2.5 MCG/KG/MIN PRN Reason: Protocol Last Titration: 12/01/17 14:17 Dose: 0 mcg/kg/min, 0 mls/hr Piperacillin Sod/Tazobactam (Sod 3.375 gm/ Dextrose) 50 mls @ 100 mls/hr IVPB Q8H-IV SONAL PRN Reason: Protocol Last Admin: 12/01/17 16:32 Dose: Not Given Phenylephrine HCl 20,000 mcg/ (Sodium Chloride) 250 mls @ 75 mls/hr IVPB ASDIR SONAL; 100 MCG/MIN PRN Reason: Protocol Last Admin: 12/01/17 16:30 Dose: 180 mcg/min, 135 mls/hr Insulin Aspart (Novolog Vial Sliding Scale -) 1 vial SQ ACHS SONAL PRN Reason: Protocol Last Admin: 12/01/17 16:47 Dose: Not Given Lactobacillus Acidophilus (Bacid -) 1 tab PEG DAILY [facility] Last Admin: 12/01/17 09:32 Dose: 1 tab Metoprolol Tartrate (Lopressor Injection -) 5 mg IVPUSH Q4H PRN PRN Reason: HYPERTENSION Last Admin: 12/01/17 09:34 Dose: 5 mg Morphine Sulfate (Morphine Sulfate) 4 mg IVPUSH Q2H PRN PRN Reason: agonal breathing Last Admin: 12/01/17 13:57 Dose: 4 mg Prednisone (Deltasone -) 40 mg PO DAILY [facility] Last Admin: 12/01/17 09:31 Dose: 40 mg Quetiapine Fumarate (Seroquel -) 25 mg PO HS [facility] Last Admin: 11/30/17 21:44 Dose: 25 mg Ranitidine HCl (Zantac -) 150 mg PO DAILY [facility] Last Admin: 12/01/17 09:32 Dose: 150 mg Roflumilast (Daliresp -) 500 mcg NGT DAILY [facility] Last Admin: 12/01/17 09:32 Dose: 500 mcg Saliva Substitute (Mouthkote Solution -) 1 applic MM DAILY [facility] Last Admin: 12/01/17 16:39 Dose: 1 applic - Objective Vital Signs: Vital Signs Temperature 101.5 F H 12/01/17 12:58 Pulse Rate 120 H 12/01/17 17:32 Respiratory Rate 17 12/01/17 17:52 Blood Pressure 89/51 12/01/17 16:30 O2 Sat by Pulse Oximetry (%) 100 12/01/17 17:52 Constitutional: Yes: Calm Eyes: Yes: Conjunctiva Clear Neck: Yes: Other (trache) Cardiovascular: Yes: Tachycardia, S1, S2 Respiratory: Yes: Mechanically Ventilated Gastrointestinal: Yes: Soft, Other (peg) Musculoskeletal: Yes: Muscle Weakness Edema: No Labs: CBC, BMP 12/01/17 06:15 12/01/17 06:15 INR, PTT INR 1.49 (0.82-1.09) H D 12/01/17 06:15 Problem List - Problems (1) Hypernatremia Code(s): E87.0 - HYPEROSMOLALITY AND HYPERNATREMIA (2) MIRLANDE (acute kidney injury) Code(s): N17.9 - ACUTE KIDNEY FAILURE, UNSPECIFIED (3) Acute respiratory failure with hypoxia Code(s): J96.01 - ACUTE RESPIRATORY FAILURE WITH HYPOXIA (4) Diabetes Code(s): E11.9 - TYPE 2 DIABETES MELLITUS WITHOUT COMPLICATIONS (5) Failure to thrive Code(s): GGH6512 - Assessment/Plan Current Medications Generic Name Dose Route Start Last Admin Trade Name Freq PRN Reason Stop Dose Admin Acetaminophen 650 mg 11/22/17 23:20 12/01/17 10:16 Tylenol - PO 650 mg Q6H PRN Administration FEVER Acetaminophen 1,000 mg 11/22/17 23:20 11/26/17 17:31 Ofirmev Injection - IVPB 1,000 mg Q6H PRN Administration FEVER Albuterol/Ipratropium 1 amp 11/23/17 08:00 12/01/17 16:03 Duoneb - NEB 1 amp RQID [facility] Administration Alprazolam 0.5 mg 11/23/17 11:38 11/29/17 02:03 Xanax - PO 0.5 mg Q8H PRN Administration ANXIETY Apixaban 5 mg 11/23/17 10:00 12/01/17 09:32 Eliquis - PO 5 mg BID [facility] Administration Artificial Tears 1 applic 11/23/17 22:00 11/30/17 21:48 Artificial Tears Ointment - OU 1 applic HS [facility] Administration Chlorhexidine Gluconate 1 applic 11/22/17 22:00 11/30/17 21:42 Hibiclens For Decolonization - TP 1 applic HS [facility] Administration Ferrous Sulfate 300 mg 11/23/17 10:00 12/01/17 09:32 Feosol GT 300 mg DAILY [facility] Administration Propofol 1,000,000 mcg in 100 mls @ 0.555 mls/hr 11/30/17 18:45 12/01/17 14: 17 Diprivan - IVPB 0 mcg/kg/min TITR [facility] 0 mls/hr Protocol Titration 2.5 MCG/KG/MIN Piperacillin Sod/Tazobactam 50 mls @ 100 mls/hr 12/01/17 14:00 12/01/17 16:32 Sod 3.375 gm/ Dextrose IVPB Not Given Q8H-IV [facility] Protocol Phenylephrine HCl 20,000 mcg/ 250 mls @ 75 mls/hr 12/01/17 14:30 12/01/17 16: 30 Sodium Chloride IVPB 180 mcg/min ASDIR SONAL 135 mls/hr Protocol Administration 100 MCG/MIN Insulin Aspart 1 vial 11/23/17 07:00 12/01/17 16:47 Novolog Vial Sliding Scale - SQ Not Given ACHS [facility] Protocol Lactobacillus Acidophilus 1 tab 11/23/17 10:00 12/01/17 09:32 Bacid - PEG 1 tab DAILY [facility] Administration Metoprolol Tartrate 5 mg 11/22/17 23:20 12/01/17 09:34 Lopressor Injection - IVPUSH 5 mg Q4H PRN Administration HYPERTENSION Morphine Sulfate 4 mg 12/01/17 12:52 12/01/17 13:57 Morphine Sulfate IVPUSH 4 mg Q2H PRN Administration agonal breathing Prednisone 40 mg 11/23/17 10:00 12/01/17 09:31 Deltasone - PO 40 mg DAILY [facility] Administration Quetiapine Fumarate 25 mg 11/23/17 22:00 11/30/17 21:44 Seroquel - PO 25 mg HS [facility]ONAL Administration Ranitidine HCl 150 mg 11/23/17 10:00 12/01/17 09:32 Zantac - PO 150 mg DAILY [facility] Administration Roflumilast 500 mcg 11/23/17 10:00 12/01/17 09:32 Daliresp - NGT 500 mcg DAILY [facility] Administration Saliva Substitute 1 applic 11/23/17 10:00 12/01/17 16:39 Mouthkote Solution - MM 1 applic DAILY [facility] Administration Impression 1. MIRLANDE 2. hypernatremia 3. chronic resp failure s/p trache 4. s/p trache 5. s/p peg 6. sepsis 7. interstitial lung disease 8. chf diastolic 9. DM 10. lactic acidosis 11. PNA Plan - cont current management - pulmonary follow up - vent support - will need to stabilize pulm status - will not give any fluids at this point Dr Gan
--- NOTE | 2017-12-01 20:20 | PN ---
Physical Exam: UPDATE Afternoon of 12/01/17: Pt became suddenly hypotensive and started to desaturate down to 85%. Phenylephrine started on pt with good response and saturations have started to increase back to baseline. Pt continues to be not responsive to stimulus and agonally breathing SUBJECTIVE: Pt intubated and sedated. HPI limited. 24Hr events: Tracheostomy equipment changed yesterday to a rigid tube to help prevent air leaking in addition to sutured in place to prevent dislodgement of the device. Later on, pt desaturated to 58% last night suddenly; ruled out airway problem, leaking trach, PTX via CXR, and increased sedation on the pt which resulted in higher compliance and increased O2 saturations. This morning pt had developed fever of 100.4 and sepsis workup initiated. OBJECTIVE: Vital Signs Period Temp Pulse Resp BP Sys/Sutton Pulse Ox Last 24 Hr 99.2 F-102.5 F 105-141 3-35 63-127/44-67 88-100 GENERAL: Cachectic, on trach and vent, seemingly agonally breathing, no alert to stimulus HEENT: Bitemporal wasting, pupils pinpoint and sluggishly reactive to light, dry mucosa NECK: Trach in place with large stoma noted, thick secretions suctioned from stoma site LUNGS: Diminished breath sounds 2/2 to poor inspiratory effort, rhonchous breath sounds b/l HEART: Tachycardic , regular rhythm, S1, S2 without murmur appreciable ABDOMEN: Soft, nt/nd, hypoactive bowel sounds EXTREMITIES: 2+ DP pulses, warm, no edema. NEUROLOGICAL: Not able to assess due to clinical condition SKIN: no rashes or lesions noted LABS 12/01/17 12/01/17 12/01/17 05:51 06:15 06:15 WBC 13.4 H D RBC 2.66 L Hgb 8.4 L Hct 26.6 L MCV 100.0 H MCH 31.4 MCHC 31.4 L RDW 16.6 H Plt Count 129 L MPV 11.7 H Neutrophils % No Result Required. Neutrophils % (Manual) 33.0 L D Band Neutrophils % 43.0 Lymphocytes % No Result Required. Lymphocytes % (Manual) 13.0 D Monocytes % (Manual) 9 D Eosinophils % (Manual) 0.0 D Basophils % (Manual) 0.0 Myelocytes % (Man) 0 Promyelocytes % (Man) 0 Nucleated RBC % 0 Metamyelocytes 1 D Hypochromia 0 Toxic Granulation 2+ Platelet Estimate Decreased Polychromasia 0 Poikilocytosis 0 Anisocytosis 1+ Microcytosis 1+ Macrocytosis 0 Tear Drop Cells 1+ PT with INR 16.80 H INR 1.49 H D PTT (Actin FS) 30.2 Puncture Site ABG pH ABG pCO2 at Pt Temp ABG pO2 at Pt Temp ABG HCO3 ABG O2 Sat (Measured) ABG O2 Content ABG Base Excess Dionte Test O2 Delivery Device Oxygen Flow Rate Vent Mode Vent Rate PEEP Pressure Support Vent Sodium Potassium Chloride Carbon Dioxide Anion Gap BUN Creatinine Creat Clearance w eGFR POC Glucometer 56.13052 Random Glucose Calcium Phosphorus Magnesium Total Bilirubin AST ALT Alkaline Phosphatase Troponin I Total Protein Albumin 12/01/17 12/01/17 12/01/17 06:15 06:27 09:21 WBC RBC Hgb Hct MCV MCH MCHC RDW Plt Count MPV Neutrophils % Neutrophils % (Manual) Band Neutrophils % Lymphocytes % Lymphocytes % (Manual) Monocytes % (Manual) Eosinophils % (Manual) Basophils % (Manual) Myelocytes % (Man) Promyelocytes % (Man) Nucleated RBC % Metamyelocytes Hypochromia Toxic Granulation Platelet Estimate Polychromasia Poikilocytosis Anisocytosis Microcytosis Macrocytosis Tear Drop Cells PT with INR INR PTT (Actin FS) Puncture Site Right radial ABG pH 7.46 H D ABG pCO2 at Pt Temp 64.9 H* D ABG pO2 at Pt Temp 69.2 L D ABG HCO3 45.1 H* ABG O2 Sat (Measured) 94.7 ABG O2 Content 10.8 L ABG Base Excess 18.7 H* Dionte Test Positive O2 Delivery Device Vent Oxygen Flow Rate 100 Vent Mode A/c Vent Rate 14 PEEP 5.0 Pressure Support Vent 450 Sodium 147 H Potassium 4.8 Chloride 99 Carbon Dioxide 47 H Anion Gap 1 L BUN 50 H D Creatinine 0.8 Creat Clearance w eGFR > 60 POC Glucometer 168.08138 Random Glucose 27 L* D Calcium 8.8 Phosphorus 2.4 L D Magnesium 2.5 H Total Bilirubin 0.6 D AST 22 ALT 35 Alkaline Phosphatase 120 H Troponin I Total Protein 7.9 Albumin 2.0 L Active Medications Generic Name Dose Route Start Last Admin Trade Name Freq PRN Reason Stop Dose Admin Acetaminophen 650 mg 11/22/17 23:20 12/01/17 10:16 Tylenol - PO 650 mg Q6H PRN Administration FEVER Acetaminophen 1,000 mg 11/22/17 23:20 11/26/17 17:31 Ofirmev Injection - IVPB 1,000 mg Q6H PRN Administration FEVER Albuterol/Ipratropium 1 amp 11/23/17 08:00 12/01/17 16:03 Duoneb - NEB 1 amp RQID SONAL Administration Alprazolam 0.5 mg 11/23/17 11:38 11/29/17 02:03 Xanax - PO 0.5 mg Q8H PRN Administration ANXIETY Apixaban 5 mg 11/23/17 10:00 12/01/17 09:32 Eliquis - PO 5 mg BID SONAL Administration Artificial Tears 1 applic 11/23/17 22:00 11/30/17 21:48 Artificial Tears Ointment - OU 1 applic HS SONAL Administration Chlorhexidine Gluconate 1 applic 11/22/17 22:00 11/30/17 21:42 Hibiclens For Decolonization - TP 1 applic HS [facility]ON[facility] Administration Ferrous Sulfate 300 mg 11/23/17 10:00 12/01/17 09:32 Feosol GT 300 mg DAILY [facility] Administration Propofol 1,000,000 mcg in 100 mls @ 0.555 mls/hr 11/30/17 18:45 12/01/17 14: 17 Diprivan - IVPB 0 mcg/kg/min TITR SONAL 0 mls/hr Protocol Titration 2.5 MCG/KG/MIN Piperacillin Sod/Tazobactam 50 mls @ 100 mls/hr 12/01/17 14:00 12/01/17 18:37 Sod 3.375 gm/ Dextrose IVPB 100 mls/hr Q8H-IV SONAL Administration Protocol Insulin Aspart 1 vial 11/23/17 07:00 12/01/17 16:47 Novolog Vial Sliding Scale - SQ Not Given ACHS SONAL Protocol Lactobacillus Acidophilus 1 tab 11/23/17 10:00 12/01/17 09:32 Bacid - PEG 1 tab DAILY [facility] Administration Metoprolol Tartrate 5 mg 11/22/17 23:20 12/01/17 09:34 Lopressor Injection - IVPUSH 5 mg Q4H PRN Administration HYPERTENSION Morphine Sulfate 4 mg 12/01/17 12:52 12/01/17 13:57 Morphine Sulfate IVPUSH 4 mg Q2H PRN Administration agonal breathing Prednisone 40 mg 11/23/17 10:00 12/01/17 09:31 Deltasone - PO 40 mg DAILY [facility] Administration Quetiapine Fumarate 25 mg 11/23/17 22:00 11/30/17 21:44 Seroquel - PO 25 mg HS SONAL Administration Ranitidine HCl 150 mg 11/23/17 10:00 12/01/17 09:32 Zantac - PO 150 mg DAILY [facility] Administration Roflumilast 500 mcg 11/23/17 10:00 12/01/17 09:32 Daliresp - NGT 500 mcg DAILY [facility] Administration Saliva Substitute 1 applic 11/23/17 10:00 12/01/17 16:39 Mouthkote Solution - MM 1 applic DAILY [facility] Administration ASSESSMENT/PLAN: Respiratory: Acute hypoxic respiratory failure --s/p tracheostomy (now XLI) --Duoneb QID scheduled to continue --Continue to sedate with propofol gtt for better vent compliance --Taper FiO2 to SpO2>90% as tolerated --Currently cannot tolerate weaning breath trials --Prednisone 40mg qDaily --Aspiration precautions with HOB elevated Interstitial lung disease --Continues to require higher levels of oxygenation --Discuss goals of care with daughter --called daughter at 1305 with update of pt status declining; tried to discuss dnr status however daughter gasper could only say he would want to be resuscitated and she will be in later today Cardiovascular: Acute diastolic heart failure --IMPROVED Venous Thrombosis: --RESOLVED --Continue Eliquis 5mg PO BID --Monitor H/H HTN and persistant tachycardia --Continue Lopressor 5mg IVP PRN for HTN --Monitor BP and HR Elevated Troponins: --Troponins trending down --No need to continue to trend ID: Sepsis 2/2 possible aspiration --CXR showing new R lobe infiltrate --aspiration suspected 2/2 to secretions from stoma --Continue Zosyn and Vanc for empiric coverage --Continue Bacid --ID to re-evaluate in setting of new fevers --Blood cultures x2 and urine cultures collected; will f/u --Tylenol PRN FEN: Fluids: Limit with tube feeds Electrolyte abnormalities: HypoPhos (mildly decreased) Nutrition: Tube feeds held previously; restart low and increase as tolerated PPX: DVT - Already on eliquis 5mg PO BID GI - Zantac 150mg PO Dispo: Continue ICU monitoring; further discuss goals of care (palliative already on board) Case discussed with Dr. Marco Parish, DO - IM PGY-1 Visit type - Emergency Visit Emergency Visit: No - New Patient This patient is new to me today: No - Critical Care Critical Care patient: Yes Total Critical Care Time (in minutes): 37 Critical Care Statement: The care of this patient involved high complexity decision making to prevent further life threatening deterioration of the patient 's condition and/or to evaluate & treat vital organ system(s) failure or risk of failure.
[2017-12-01] MEDS: PROPOFOL 1,000,000 MCG/100 ML VIAL IVPB SCH (21:42)
[2017-12-01] MEDS: MINERAL OIL/PETROLATUM,WHITE 3.5 GM TUBE OU SCH (21:44)
[2017-12-01] MEDS: CHLORHEXIDINE GLUCONATE 4% CLEANSER FOR DECOLONIZATION TP SCH (21:45)
[2017-12-01] MEDS: QUEtiapine FUMARATE 25 MG TABLET (FP) PO SCH (21:45)
--- NOTE | 2017-12-01 21:45 | PN ---
Progress Note, Physician - Current Medication List Current Medications: Active Medications Acetaminophen (Tylenol -) 650 mg PO Q6H PRN PRN Reason: FEVER Last Admin: 12/01/17 10:16 Dose: 650 mg Acetaminophen (Ofirmev Injection -) 1,000 mg IVPB Q6H PRN PRN Reason: FEVER Last Admin: 11/26/17 17:31 Dose: 1,000 mg Albuterol/Ipratropium (Duoneb -) 1 amp NEB RQID [facility] Last Admin: 12/01/17 20:14 Dose: 1 amp Alprazolam (Xanax -) 0.5 mg PO Q8H PRN PRN Reason: ANXIETY Last Admin: 11/29/17 02:03 Dose: 0.5 mg Apixaban (Eliquis -) 5 mg PO BID [facility] Last Admin: 12/01/17 09:32 Dose: 5 mg Artificial Tears (Artificial Tears Ointment -) 1 applic OU HS [facility] Last Admin: 11/30/17 21:48 Dose: 1 applic Chlorhexidine Gluconate (Hibiclens For Decolonization -) 1 applic TP HS [facility] Last Admin: 11/30/17 21:42 Dose: 1 applic Ferrous Sulfate (Feosol) 300 mg GT DAILY [facility] Last Admin: 12/01/17 09:32 Dose: 300 mg Propofol (Diprivan -) 1,000,000 mcg in 100 mls @ 0.555 mls/hr IVPB TITR SONAL; 2.5 MCG/KG/MIN PRN Reason: Protocol Last Titration: 12/01/17 14:17 Dose: 0 mcg/kg/min, 0 mls/hr Piperacillin Sod/Tazobactam (Sod 3.375 gm/ Dextrose) 50 mls @ 100 mls/hr IVPB Q8H-IV [facility]ONAL PRN Reason: Protocol Last Admin: 12/01/17 18:37 Dose: 100 mls/hr Phenylephrine HCl 20,000 mcg/ (Sodium Chloride) 250 mls @ 75 mls/hr IVPB ASDIR SONAL; 100 MCG/MIN PRN Reason: Protocol Last Admin: 12/01/17 20:15 Dose: 180 mcg/min, 135 mls/hr Insulin Aspart (Novolog Vial Sliding Scale -) 1 vial SQ ACHS [facility]ONAL PRN Reason: Protocol Last Admin: 12/01/17 16:47 Dose: Not Given Lactobacillus Acidophilus (Bacid -) 1 tab PEG DAILY [facility] Last Admin: 12/01/17 09:32 Dose: 1 tab Metoprolol Tartrate (Lopressor Injection -) 5 mg IVPUSH Q4H PRN PRN Reason: HYPERTENSION Last Admin: 12/01/17 09:34 Dose: 5 mg Morphine Sulfate (Morphine Sulfate) 4 mg IVPUSH Q2H PRN PRN Reason: agonal breathing Last Admin: 12/01/17 13:57 Dose: 4 mg Prednisone (Deltasone -) 40 mg PO DAILY [facility] Last Admin: 12/01/17 09:31 Dose: 40 mg Quetiapine Fumarate (Seroquel -) 25 mg PO HS [facility] Last Admin: 11/30/17 21:44 Dose: 25 mg Ranitidine HCl (Zantac -) 150 mg PO DAILY [facility] Last Admin: 12/01/17 09:32 Dose: 150 mg Roflumilast (Daliresp -) 500 mcg NGT DAILY [facility] Last Admin: 12/01/17 09:32 Dose: 500 mcg Saliva Substitute (Mouthkote Solution -) 1 applic MM DAILY [facility] Last Admin: 12/01/17 16:39 Dose: 1 applic - Objective Vital Signs: Vital Signs Temperature 100.0 F H 12/01/17 18:00 Pulse Rate 104 H 12/01/17 20:15 Respiratory Rate 14 12/01/17 21:00 Blood Pressure 117/57 12/01/17 20:15 O2 Sat by Pulse Oximetry (%) 100 12/01/17 17:52 Labs: CBC, BMP 12/01/17 06:15 12/01/17 06:15 INR, PTT INR 1.49 (0.82-1.09) H D 12/01/17 06:15 Assessment/Plan Family members were at bed side this evening. Spoke to them regarding code status and goals of care . He is Full code.
[2017-12-02] MEDS: PIPERACILLIN/TAZOB 3.375 GM 3.375 GM in DEXTROSE 5%-WATER - 50 ML IVPB SCH ×3 (01:06→17:45)
[2017-12-02] MEDS: morphine SULFATE 4 MG/ML VIAL IVPUSH PRN ×3 (02:37→17:36)
[2017-12-02 06:05] LABS: HEMATOCRIT 23.2 % (35.4-49); HEMOGLOBIN 7.3 GM/dL (11.7-16.9); MCH 31.8 pg (25.7-33.7); MCHC 31.5 g/dl (32.0-35.9); MEAN CELL VOLUME 100.8 fl (80-96); MEAN PLT VOLUME 12.4 fl (7.5-11.1); PLATELET COUNT 103 K/MM3 (134-434); RBC 2.31 M/mm3 (4.00-5.60); RDW 16.8 % (11.9-15.9); WHITE BLOOD COUNT 12.4 K/mm3 (4.0-10.0)
[2017-12-02] MEDS: BANATROL PLUS POWDER PACKET PEG SCH ×3 (06:32→21:04)
[2017-12-02 07:23] LABS: ALBUMIN 1.8 g/dl (3.4-5.0); ALK PHOS 127 U/L (45-117); ANION GAP 4 (8-16); BILIRUBIN,TOTAL 0.4 mg/dL (0.2-1.0); BLOOD UREA NITROGEN 77 mg/dL (7-18); CALCIUM 7.7 mg/dL (8.5-10.1); CHLORIDE 99 mmol/L (98-107); CO2 42 mmol/L (21-32); CREATININE 1.6 mg/dL (0.7-1.3); MAGNESIUM 2.9 mg/dL (1.8-2.4); POTASSIUM 5.8 mmol/L (3.5-5.1); SODIUM 145 mmol/L (136-145)
[2017-12-02] MEDS: INSULIN SLIDING SCALE (NOVOLOG) 1 VIAL SQ SCH ×4 (07:33→21:05)
--- NOTE | 2017-12-02 07:34 | PN ---
Progress Note, Physician Chief Complaint: ID vancomycin and Zosyn started Day 1 today Alert on vent Needed pressor support - Current Medication List Current Medications: Active Medications Acetaminophen (Tylenol -) 650 mg PO Q6H PRN PRN Reason: FEVER Last Admin: 12/01/17 10:16 Dose: 650 mg Acetaminophen (Ofirmev Injection -) 1,000 mg IVPB Q6H PRN PRN Reason: FEVER Last Admin: 11/26/17 17:31 Dose: 1,000 mg Albuterol/Ipratropium (Duoneb -) 1 amp NEB RQID [facility] Last Admin: 12/01/17 20:14 Dose: 1 amp Alprazolam (Xanax -) 0.5 mg PO Q8H PRN PRN Reason: ANXIETY Last Admin: 11/29/17 02:03 Dose: 0.5 mg Apixaban (Eliquis -) 5 mg PO BID [facility] Last Admin: 12/01/17 21:44 Dose: 5 mg Artificial Tears (Artificial Tears Ointment -) 1 applic OU HS [facility] Last Admin: 12/01/17 21:44 Dose: 1 applic Chlorhexidine Gluconate (Hibiclens For Decolonization -) 1 applic TP HS [facility] Last Admin: 12/01/17 21:45 Dose: 1 applic Ferrous Sulfate (Feosol) 300 mg GT DAILY [facility] Last Admin: 12/01/17 09:32 Dose: 300 mg Propofol (Diprivan -) 1,000,000 mcg in 100 mls @ 0.555 mls/hr IVPB TITR SONAL; 2.5 MCG/KG/MIN PRN Reason: Protocol Last Admin: 12/01/17 21:42 Dose: Not Given Piperacillin Sod/Tazobactam (Sod 3.375 gm/ Dextrose) 50 mls @ 100 mls/hr IVPB Q8H-IV SONAL PRN Reason: Protocol Last Admin: 12/02/17 01:06 Dose: 100 mls/hr Phenylephrine HCl 20,000 mcg/ (Sodium Chloride) 250 mls @ 75 mls/hr IVPB ASDIR SONAL; 100 MCG/MIN PRN Reason: Protocol Last Titration: 12/02/17 07:24 Dose: 80 mcg/min, 60 mls/hr Insulin Aspart (Novolog Vial Sliding Scale -) 1 vial SQ ACHS SONAL PRN Reason: Protocol Last Admin: 12/01/17 21:45 Dose: Not Given Lactobacillus Acidophilus (Bacid -) 1 tab PEG DAILY [facility] Last Admin: 12/01/17 09:32 Dose: 1 tab Metoprolol Tartrate (Lopressor Injection -) 5 mg IVPUSH Q4H PRN PRN Reason: HYPERTENSION Last Admin: 12/01/17 09:34 Dose: 5 mg Morphine Sulfate (Morphine Sulfate) 4 mg IVPUSH Q2H PRN PRN Reason: agonal breathing Last Admin: 12/02/17 02:37 Dose: 4 mg Prednisone (Deltasone -) 40 mg PO DAILY [facility] Last Admin: 12/01/17 09:31 Dose: 40 mg Quetiapine Fumarate (Seroquel -) 25 mg PO HS [facility] Last Admin: 12/01/17 21:45 Dose: 25 mg Ranitidine HCl (Zantac -) 150 mg PO DAILY [facility] Last Admin: 12/01/17 09:32 Dose: 150 mg Roflumilast (Daliresp -) 500 mcg NGT DAILY [facility] Last Admin: 12/01/17 09:32 Dose: 500 mcg Saliva Substitute (Mouthkote Solution -) 1 applic MM DAILY [facility] Last Admin: 12/01/17 16:39 Dose: 1 applic - Objective Vital Signs: Vital Signs Temperature 98.6 F 12/02/17 06:00 Pulse Rate 105 H 12/02/17 06:00 Respiratory Rate 17 12/02/17 06:00 Blood Pressure 130/54 12/02/17 06:00 O2 Sat by Pulse Oximetry (%) 93 L 12/01/17 22:00 HENT: Yes: Other (Trach) Cardiovascular: Yes: Tachycardia, S1, S2 Respiratory: Yes: WNL, Regular, CTA Bilaterally Gastrointestinal: Yes: Soft Edema: No Labs: CBC, BMP 12/02/17 05:15 INR, PTT INR 1.49 (0.82-1.09) H D 12/01/17 06:15 Problem List - Problems (1) Interstitial lung disease Code(s): J84.9 - INTERSTITIAL PULMONARY DISEASE, UNSPECIFIED (2) Acute respiratory failure with hypoxia Code(s): J96.01 - ACUTE RESPIRATORY FAILURE WITH HYPOXIA (3) Pneumonia Code(s): J18.9 - PNEUMONIA, UNSPECIFIED ORGANISM (4) Deep vein thrombosis Code(s): I82.409 - ACUTE EMBOLISM AND THOMBOS UNSP DEEP VN UNSP LOWER EXTREMITY Assessment/Plan Microbiology Laboratory Tests 12/01/17 12/02/17 06:15 05:15 WBC 12.4 H Hgb 7.3 L D Hct 23.2 L Plt Count 103 L D BUN 50 H D Creatinine 0.8 Assessment Respiratory failure Interstitial lung disease ? Superimposed new infiltrate with fever 102.5 yesterday DM Plan Continue current therapy Zosyn Obtain sputum c/s ? HAP Steroid dependent Sent for fungal also ANAHY Owusu MD
[2017-12-02 07:41] LABS: GLUCOSE,RANDOM 331 mg/dL (74-106); SGOT/AST 542 U/L (15-37); SGPT/ALT 650 U/L (12-78)
[2017-12-02] MEDS: ALBUTEROL SO4 2.5/IPRATROPIUM 0.5 INH SOL 3 ML VIAL.NEB. NEB SCH ×4 (08:25→20:10)
[2017-12-02] MEDS ORDERED: INSULIN REGULAR HUMAN 100 UNITS/ML *VIAL ONE (08:41)
[2017-12-02] MEDS ORDERED: DEXTROSE 50%-WATER 25 GM/50 ML DISP.SYRIN ONE (08:41)
[2017-12-02] MEDS ORDERED: DEXTROSE 50%-WATER - 25 GM/50 ML VIAL IVPUSH ONE (08:45)
[2017-12-02] MEDS ORDERED: INSULIN REGULAR HUMAN 100 UNITS/ML *VIAL IVPUSH ONE (08:45)
[2017-12-02] MEDS ORDERED: PHENYLEPHRINE HCL 10 MG/1 ML SINGLE DOSE VIAL ONE ×2 (08:55→17:24)
[2017-12-02] MEDS ORDERED: FENTANYL INJECTION 500 MCG in DEXTROSE 5%-WATER - 90 ML IVPB SCH (09:00)
--- NOTE | 2017-12-02 09:44 | PN ---
Progress Note (short form) - Note Progress Note: Patient seen and examined in the ICU. Clinical deterioration. Vented, tachypneic. Now requiring phenylephrine for hemodynamic support. ARF / hyperkalemia. Febrile. OBJECTIVE: Intake & Output 11/29/17 11/30/17 12/01/17 12/02/17 23:59 23:59 23:59 23:59 Intake Total 2680 3230 3143.2 Output Total 1100 1301 400 700 Balance 1580 1929 2743.2 -700 Weight 80 lb 6.4 oz 81 lb 8 oz 78 lb 4 oz 82 lb 4 oz Last Vital Signs Temp Pulse Resp BP Pulse Ox 98.6 F 108 H 22 127/52 93 L 12/02/17 06:00 12/02/17 08:15 12/02/17 08:15 12/02/17 08:00 12/02/17 08:15 Active Medications Acetaminophen (Tylenol -) 650 mg PO Q6H PRN PRN Reason: FEVER Last Admin: 12/01/17 10:16 Dose: 650 mg Acetaminophen (Ofirmev Injection -) 1,000 mg IVPB Q6H PRN PRN Reason: FEVER Last Admin: 11/26/17 17:31 Dose: 1,000 mg Albuterol/Ipratropium (Duoneb -) 1 amp NEB RQID [facility] Last Admin: 12/02/17 08:25 Dose: 1 amp Alprazolam (Xanax -) 0.5 mg PO Q8H PRN PRN Reason: ANXIETY Last Admin: 11/29/17 02:03 Dose: 0.5 mg Apixaban (Eliquis -) 5 mg PO BID [facility] Last Admin: 12/01/17 21:44 Dose: 5 mg Artificial Tears (Artificial Tears Ointment -) 1 applic OU HS [facility] Last Admin: 12/01/17 21:44 Dose: 1 applic Calcium Acetate (Phoslo -) 667 mg PO TIDCM [facility] Chlorhexidine Gluconate (Hibiclens For Decolonization -) 1 applic TP HS [facility] Last Admin: 12/01/17 21:45 Dose: 1 applic Ferrous Sulfate (Feosol) 300 mg GT DAILY [facility] Last Admin: 12/01/17 09:32 Dose: 300 mg Propofol (Diprivan -) 1,000,000 mcg in 100 mls @ 0.555 mls/hr IVPB TITR SONAL; 2.5 MCG/KG/MIN PRN Reason: Protocol Last Admin: 12/01/17 21:42 Dose: Not Given Piperacillin Sod/Tazobactam (Sod 3.375 gm/ Dextrose) 50 mls @ 100 mls/hr IVPB Q8H-IV SONAL PRN Reason: Protocol Last Admin: 12/02/17 01:06 Dose: 100 mls/hr Phenylephrine HCl 20,000 mcg/ (Sodium Chloride) 250 mls @ 75 mls/hr IVPB ASDIR SONAL; 100 MCG/MIN PRN Reason: Protocol Last Titration: 12/02/17 07:24 Dose: 80 mcg/min, 60 mls/hr Fentanyl 500 mcg/ Dextrose 100 mls @ 0.2 mls/hr IVPB TITR SONAL; 1 MCG/HR PRN Reason: Protocol Insulin Aspart (Novolog Vial Sliding Scale -) 1 vial SQ ACHS SONAL PRN Reason: Protocol Last Admin: 12/02/17 07:33 Dose: 8 units Lactobacillus Acidophilus (Bacid -) 1 tab PEG DAILY [facility] Last Admin: 12/01/17 09:32 Dose: 1 tab Metoprolol Tartrate (Lopressor Injection -) 5 mg IVPUSH Q4H PRN PRN Reason: HYPERTENSION Last Admin: 12/01/17 09:34 Dose: 5 mg Morphine Sulfate (Morphine Sulfate) 4 mg IVPUSH Q2H PRN PRN Reason: agonal breathing Last Admin: 12/02/17 02:37 Dose: 4 mg Prednisone (Deltasone -) 40 mg PO DAILY [facility] Last Admin: 12/01/17 09:31 Dose: 40 mg Quetiapine Fumarate (Seroquel -) 25 mg PO HS [facility] Last Admin: 12/01/17 21:45 Dose: 25 mg Ranitidine HCl (Zantac -) 150 mg PO DAILY [facility] Last Admin: 12/01/17 09:32 Dose: 150 mg Roflumilast (Daliresp -) 500 mcg NGT DAILY [facility] Last Admin: 12/01/17 09:32 Dose: 500 mcg Saliva Substitute (Mouthkote Solution -) 1 applic MM DAILY [facility] Last Admin: 12/01/17 16:39 Dose: 1 applic Sodium Polystyrene Sulfonate (Kayexalate -) 15 gm PO ONCE ONE Stop: 02/17/18 09:41 Gen: vented, tachypneic, cachectic Heart: tachycardic, regular Lung: scattered rhonchi Abd: soft, nontender Ext: no edema Laboratory Results - last 24 hr 12/01/17 12/01/17 12/01/17 06:15 09:21 16:44 WBC RBC Hgb Hct MCV MCH MCHC RDW Plt Count MPV Neutrophils % (Manual) 33.0 L D Band Neutrophils % 43.0 Lymphocytes % (Manual) 13.0 D Monocytes % (Manual) 9 D Eosinophils % (Manual) 0.0 D Basophils % (Manual) 0.0 Myelocytes % (Man) 0 Promyelocytes % (Man) 0 Nucleated RBC % 0 Metamyelocytes 1 D Hypochromia 0 Toxic Granulation 2+ Platelet Estimate Decreased Polychromasia 0 Poikilocytosis 0 Anisocytosis 1+ Microcytosis 1+ Macrocytosis 0 Tear Drop Cells 1+ Sodium Potassium Chloride Carbon Dioxide Anion Gap BUN Creatinine Creat Clearance w eGFR POC Glucometer 168.02320 109.39409 Random Glucose Calcium Phosphorus Magnesium Total Bilirubin AST ALT Alkaline Phosphatase Total Protein Albumin 12/02/17 12/02/17 05:15 05:15 WBC 12.4 H RBC 2.31 L Hgb 7.3 L D Hct 23.2 L MCV 100.8 H MCH 31.8 MCHC 31.5 L RDW 16.8 H Plt Count 103 L D MPV 12.4 H Neutrophils % (Manual) Band Neutrophils % Lymphocytes % (Manual) Monocytes % (Manual) Eosinophils % (Manual) Basophils % (Manual) Myelocytes % (Man) Promyelocytes % (Man) Nucleated RBC % Metamyelocytes Hypochromia Toxic Granulation Platelet Estimate Polychromasia Poikilocytosis Anisocytosis Microcytosis Macrocytosis Tear Drop Cells Sodium 145 Potassium 5.8 H D Chloride 99 Carbon Dioxide 42 H Anion Gap 4 L BUN 77 H D Creatinine 1.6 H D Creat Clearance w eGFR 43.87 POC Glucometer Random Glucose 331 H* D Calcium 7.7 L Phosphorus 7.0 H D Magnesium 2.9 H Total Bilirubin 0.4 D AST 542 H D ALT 650 H D Alkaline Phosphatase 127 H Total Protein 7.0 Albumin 1.8 L Problem List - Problems (1) Acute respiratory failure with hypoxia Code(s): J96.01 - ACUTE RESPIRATORY FAILURE WITH HYPOXIA (2) Pneumonia Code(s): J18.9 - PNEUMONIA, UNSPECIFIED ORGANISM (3) Diabetes Code(s): E11.9 - TYPE 2 DIABETES MELLITUS WITHOUT COMPLICATIONS ASSESSMENT AND PLAN: Acute Hypoxic Respiratory Failure s/p Tracheostomy New Aspiration pneumonitis / PNA Sepsis Interstitial Lung Disease Acute Diastolic Heart Failure improved Acute Kidney Injury Lactic Acidosis resolved DM RLE DVT - ABX per ID - monitor urine output, creatinine - Prednisone - Anxiolytics, seroquel qHS - Enteral feeds - continue anticoagulation, monitor H/H - Morphine for comfort / RR - Taper FiO2 to keep SpO2 >90% - Not a candidate for spontaneous breathing trials - DVT/GI prophylaxis - continue discussions regarding goals of care as pt with clinical deterioration and limited options - continue ICU monitoring for now - Will need further family discussions for GOC as outcome is grave Dr Souza Critical care time spent in reviewing chart, evaluating patient and formulating plan 36 min
--- NOTE | 2017-12-02 09:45 | PN ---
Physical Exam: SUBJECTIVE: Patient seen and examined Temp 102.5 overnight ; with infiltrative changes on CXR. Tachypnies; requiring fentanyl drip and bp support with phenylephrine. Hyperkalemic this am; eleveted LFTs. Drop in heme/crit. OBJECTIVE: Vital Signs Period Temp Pulse Resp BP Sys/Sutton Pulse Ox Last 24 Hr 98.1 F-102.5 F 102-133 14-28 63-156/44-87 88-100 GENERAL: The patient is lethargic. HEAD: Normal with no signs of trauma. ENT: trach in place; no secretion or swelling LUNGS: scattered rhonchi HEART: Regular rate and rhythm, S1, S2 without murmur, rub or gallop. ABDOMEN: Soft, nontender, nondistended, normoactive bowel sounds, no guarding, no rebound, no hepatosplenomegaly, no masses. EXTREMITIES: 2+ pulses, warm, well-perfused, no edema. NEUROLOGICAL:lethargic Laboratory Results - last 24 hr 12/01/17 12/01/17 12/01/17 06:15 09:21 16:44 WBC RBC Hgb Hct MCV MCH MCHC RDW Plt Count MPV Neutrophils % (Manual) 33.0 L D Band Neutrophils % 43.0 Lymphocytes % (Manual) 13.0 D Monocytes % (Manual) 9 D Eosinophils % (Manual) 0.0 D Basophils % (Manual) 0.0 Myelocytes % (Man) 0 Promyelocytes % (Man) 0 Nucleated RBC % 0 Metamyelocytes 1 D Hypochromia 0 Toxic Granulation 2+ Platelet Estimate Decreased Polychromasia 0 Poikilocytosis 0 Anisocytosis 1+ Microcytosis 1+ Macrocytosis 0 Tear Drop Cells 1+ Sodium Potassium Chloride Carbon Dioxide Anion Gap BUN Creatinine Creat Clearance w eGFR POC Glucometer 168.21191 109.31985 Random Glucose Calcium Phosphorus Magnesium Total Bilirubin AST ALT Alkaline Phosphatase Total Protein Albumin 12/02/17 12/02/17 05:15 05:15 WBC 12.4 H RBC 2.31 L Hgb 7.3 L D Hct 23.2 L MCV 100.8 H MCH 31.8 MCHC 31.5 L RDW 16.8 H Plt Count 103 L D MPV 12.4 H Neutrophils % (Manual) Band Neutrophils % Lymphocytes % (Manual) Monocytes % (Manual) Eosinophils % (Manual) Basophils % (Manual) Myelocytes % (Man) Promyelocytes % (Man) Nucleated RBC % Metamyelocytes Hypochromia Toxic Granulation Platelet Estimate Polychromasia Poikilocytosis Anisocytosis Microcytosis Macrocytosis Tear Drop Cells Sodium 145 Potassium 5.8 H D Chloride 99 Carbon Dioxide 42 H Anion Gap 4 L BUN 77 H D Creatinine 1.6 H D Creat Clearance w eGFR 43.87 POC Glucometer Random Glucose 331 H* D Calcium 7.7 L Phosphorus 7.0 H D Magnesium 2.9 H Total Bilirubin 0.4 D AST 542 H D ALT 650 H D Alkaline Phosphatase 127 H Total Protein 7.0 Albumin 1.8 L Active Medications Generic Name Dose Route Start Last Admin Trade Name Freq PRN Reason Stop Dose Admin Acetaminophen 650 mg 11/22/17 23:20 12/01/17 10:16 Tylenol - PO 650 mg Q6H PRN Administration FEVER Acetaminophen 1,000 mg 11/22/17 23:20 11/26/17 17:31 Ofirmev Injection - IVPB 1,000 mg Q6H PRN Administration FEVER Albuterol/Ipratropium 1 amp 11/23/17 08:00 12/02/17 08:25 Duoneb - NEB 1 amp RQID SONAL Administration Alprazolam 0.5 mg 11/23/17 11:38 11/29/17 02:03 Xanax - PO 0.5 mg Q8H PRN Administration ANXIETY Apixaban 5 mg 11/23/17 10:00 12/01/17 21:44 Eliquis - PO 5 mg BID SONAL Administration Artificial Tears 1 applic 11/23/17 22:00 12/01/17 21:44 Artificial Tears Ointment - OU 1 applic HS SONAL Administration Calcium Acetate 667 mg 12/02/17 12:00 Phoslo - PO TIDCM SONAL Chlorhexidine Gluconate 1 applic 11/22/17 22:00 12/01/17 21:45 Hibiclens For Decolonization - TP 1 applic HS SONAL Administration Ferrous Sulfate 300 mg 11/23/17 10:00 12/01/17 09:32 Feosol GT 300 mg DAILY SONAL Administration Propofol 1,000,000 mcg in 100 mls @ 0.555 mls/hr 11/30/17 18:45 12/01/17 21: 42 Diprivan - IVPB Not Given TITR SONAL Protocol 2.5 MCG/KG/MIN Piperacillin Sod/Tazobactam 50 mls @ 100 mls/hr 12/01/17 14:00 12/02/17 01:06 Sod 3.375 gm/ Dextrose IVPB 100 mls/hr Q8H-IV SONAL Administration Protocol Phenylephrine HCl 20,000 mcg/ 250 mls @ 75 mls/hr 12/01/17 14:30 12/02/17 07: 24 Sodium Chloride IVPB 80 mcg/min ASDIR SONAL 60 mls/hr Protocol Titration 100 MCG/MIN Fentanyl 500 mcg/ Dextrose 100 mls @ 0.2 mls/hr 12/02/17 09:00 IVPB TITR SONAL Protocol 1 MCG/HR Insulin Aspart 1 vial 11/23/17 07:00 12/02/17 07:33 Novolog Vial Sliding Scale - SQ 8 units ACHS SONAL Administration Protocol Lactobacillus Acidophilus 1 tab 11/23/17 10:00 12/01/17 09:32 Bacid - PEG 1 tab DAILY SONAL Administration Metoprolol Tartrate 5 mg 11/22/17 23:20 12/01/17 09:34 Lopressor Injection - IVPUSH 5 mg Q4H PRN Administration HYPERTENSION Morphine Sulfate 4 mg 12/01/17 12:52 12/02/17 02:37 Morphine Sulfate IVPUSH 4 mg Q2H PRN Administration agonal breathing Prednisone 40 mg 11/23/17 10:00 12/01/17 09:31 Deltasone - PO 40 mg DAILY SONAL Administration Quetiapine Fumarate 25 mg 11/23/17 22:00 12/01/17 21:45 Seroquel - PO 25 mg HS SONAL Administration Ranitidine HCl 150 mg 11/23/17 10:00 12/01/17 09:32 Zantac - PO 150 mg DAILY SONAL Administration Roflumilast 500 mcg 11/23/17 10:00 12/01/17 09:32 Daliresp - NGT 500 mcg DAILY SONAL Administration Saliva Substitute 1 applic 11/23/17 10:00 12/01/17 16:39 Mouthkote Solution - MM 1 applic DAILY SONAL Administration Sodium Polystyrene Sulfonate 15 gm 12/02/17 10:15 Kayexalate - PO 12/02/17 10:16 ONCE ONE ASSESSMENT/PLAN: This is a 62 year old male with DM, PUD, CHF, +tobacco use; presented with dyspnea; found to be in acute hypoxic respiratory failure, oleg septic sec to aspiration pneumonia. #Acute hypoxic respiratory failure with tracheostomy; -sec to interstitial lung dis; +tobacco; +pna -mech vent taper fiO2; keep O2 >90%; Breathing index; clinical status; not able to wean at this time #sepsis sec to aspiration pneumonitis possibly from trach adjustment -spiked fever overnight; -on pressers; mech vent -cont IV zosyn; f/u cultures; micro -ID on board #acute kidney injury: -increase in creatinine to 1.6; most likey from sepsis and hypotension -monitor urine output/cr #hyperkalemia: -stat ekg no t waved changes -insulin 10U IVO; with d5W and kayexelate given -repeat labs #hyperphosphatemia; -phoslo tid #DM: -bgm; insulin SS #acute diastolic HF: stable for now; will hold on lasix; CXR look more of pneumonitis -strict I/O; daily weights FEN: Fluids: n/a Electrolytes: monitor mg, phos, k, na; Diet: continue tube feeds Vte: heparin Disposition: need to discuss goals of care; poor prognosis Case discussed with Dr. James Vaughan PGY2 Visit type - Emergency Visit Emergency Visit: Yes ED Registration Date: 10/17/17 Care time: The patient presented to the Emergency Department on the above date and was hospitalized for further evaluation of their emergent condition. - New Patient This patient is new to me today: Yes Date on this admission: 12/02/17 - Critical Care Critical Care patient: Yes Total Critical Care Time (in minutes): 35 Critical Care Statement: The care of this patient involved high complexity decision making to prevent further life threatening deterioration of the patient 's condition and/or to evaluate & treat vital organ system(s) failure or risk of failure.
[2017-12-02] MEDS ORDERED: SODIUM POLYSTYRENE SULFONATE 15 GM/60 ML BOTTLE PO ONE (10:15)
[2017-12-02] MEDS: FERROUS SO4 300 MG/5 ML ORAL SOLN UNIT DOSE CUPS GT SCH (10:26)
[2017-12-02] MEDS: LYTES/YERBA SANTA 240 ML BOTTLE MM SCH (10:29)
[2017-12-02] MEDS: LACTOBACILLUS ACIDOPHILUS 1 EACH TAB (FP) PEG SCH (10:30)
[2017-12-02] MEDS: APIXABAN 5 MG TABLET PO SCH ×2 (11:20→21:03)
[2017-12-02] MEDS: RANITIDINE HCL 150 MG TABLET (FP) PO SCH (11:21)
[2017-12-02] MEDS: predniSONE 20 MG TABLET (UD) PO SCH (11:22)
[2017-12-02] MEDS: ROFLUMILAST 500 MCG TABLET NGT SCH (11:22)
--- NOTE | 2017-12-02 12:12 | EKG ---
Test Reason : Blood Pressure : / mmHG Vent. Rate : 106 BPM Atrial Rate : 106 BPM P-R Int : 112 ms QRS Dur : 086 ms QT Int : 314 ms P-R-T Axes : 061 065 050 degrees QTc Int : 417 ms SINUS TACHYCARDIA POSSIBLE LEFT ATRIAL ENLARGEMENT LEFT VENTRICULAR HYPERTROPHY ABNORMAL ECG WHEN COMPARED WITH ECG OF 30-NOV-2017 10:02, NO SIGNIFICANT CHANGE WAS FOUND Confirmed by FUENTES SHAVER MD ([id number]) on 12/02/2017 12:12:07 PM Referred By: Confirmed By:FUENTES SHAVER MD
[2017-12-02] MEDS: CALCIUM ACETATE 667 MG CAPSULE (FP) PO SCH ×2 (13:00→17:38)
--- NOTE | 2017-12-02 13:19 | PN ---
Teaching Attending Note Name of Resident: Joelle Vaughan ATTENDING PHYSICIAN STATEMENT Time of evaluation: 8:40 AM I saw and evaluated the patient. I reviewed the resident's note and discussed the case with the resident. I agree with the resident's findings and plan as documented. SUBJECTIVE: Patient seen and examined. tachypneic, lethargic, unable to assess for ROS. OBJECTIVE: Vital Signs Period Temp Pulse Resp BP Sys/Sutton Pulse Ox Last 24 Hr 98.1 F-100.0 F 99-133 14-28 63-156/44-87 88-100 Intake & Output 11/29/17 11/30/17 12/01/17 12/02/17 23:59 23:59 23:59 23:59 Intake Total 2680 3230 3143.2 Output Total 1100 1301 400 700 Balance 1580 1929 2743.2 -700 Weight 80 lb 6.4 oz 81 lb 8 oz 78 lb 4 oz 82 lb 4 oz General: tachypneic, lethargic in bed CVS:S1S2 regular tachycardic Chest:bilateral coarse rales anteriorly Neck: trach in place with minimal secretions in stoma Abdomen: soft, scaphoid, PEG in place Extremities: no edema, cachectic Home Medication List Medication Instructions Recorded Confirmed Type Glipizide [Glucotrol Xl] 0 mg PO ASDIR 10/17/17 10/17/17 History Metformin HCl 0 mg PO ASDIR 10/17/17 10/17/17 History Tamsulosin HCl 0.4 mg PO DAILY 10/17/17 10/17/17 History Active Medications Generic Name Dose Route Start Last Admin Trade Name Freq PRN Reason Stop Dose Admin Acetaminophen 650 mg 11/22/17 23:20 12/01/17 10:16 Tylenol - PO 650 mg Q6H PRN Administration FEVER Acetaminophen 1,000 mg 11/22/17 23:20 11/26/17 17:31 Ofirmev Injection - IVPB 1,000 mg Q6H PRN Administration FEVER Albuterol/Ipratropium 1 amp 11/23/17 08:00 12/02/17 12:13 Duoneb - NEB 1 amp RQID SONAL Administration Alprazolam 0.5 mg 11/23/17 11:38 11/29/17 02:03 Xanax - PO 0.5 mg Q8H PRN Administration ANXIETY Apixaban 5 mg 11/23/17 10:00 12/02/17 11:20 Eliquis - PO 5 mg BID SONAL Administration Artificial Tears 1 applic 11/23/17 22:00 12/01/17 21:44 Artificial Tears Ointment - OU 1 applic HS SONAL Administration Calcium Acetate 667 mg 12/02/17 12:00 Phoslo - PO TIDCM SONAL Chlorhexidine Gluconate 1 applic 11/22/17 22:00 12/01/17 21:45 Hibiclens For Decolonization - TP 1 applic HS [facility] Administration Ferrous Sulfate 300 mg 11/23/17 10:00 12/02/17 10:26 Feosol GT 300 mg DAILY SONAL Administration Propofol 1,000,000 mcg in 100 mls @ 0.555 mls/hr 11/30/17 18:45 12/01/17 21: 42 Diprivan - IVPB Not Given TITR SONAL Protocol 2.5 MCG/KG/MIN Piperacillin Sod/Tazobactam 50 mls @ 100 mls/hr 12/01/17 14:00 12/02/17 10:29 Sod 3.375 gm/ Dextrose IVPB 100 mls/hr Q8H-IV SONAL Administration Protocol Phenylephrine HCl 20,000 mcg/ 250 mls @ 75 mls/hr 12/01/17 14:30 12/02/17 07: 24 Sodium Chloride IVPB 80 mcg/min ASDIR SONAL 60 mls/hr Protocol Titration 100 MCG/MIN Fentanyl 500 mcg/ Dextrose 100 mls @ 0.2 mls/hr 12/02/17 09:00 IVPB TITR SONAL Protocol 1 MCG/HR Insulin Aspart 1 vial 11/23/17 07:00 12/02/17 12:00 Novolog Vial Sliding Scale - SQ Not Given ACHS SONAL Protocol Lactobacillus Acidophilus 1 tab 11/23/17 10:00 12/02/17 10:30 Bacid - PEG 1 tab DAILY SONAL Administration Metoprolol Tartrate 5 mg 11/22/17 23:20 12/01/17 09:34 Lopressor Injection - IVPUSH 5 mg Q4H PRN Administration HYPERTENSION Morphine Sulfate 4 mg 12/01/17 12:52 12/02/17 10:26 Morphine Sulfate IVPUSH 4 mg Q2H PRN Administration agonal breathing Prednisone 40 mg 11/23/17 10:00 12/02/17 11:22 Deltasone - PO 40 mg DAILY SONAL Administration Quetiapine Fumarate 25 mg 11/23/17 22:00 12/01/17 21:45 Seroquel - PO 25 mg HS SONAL Administration Ranitidine HCl 150 mg 11/23/17 10:00 12/02/17 11:21 Zantac - PO 150 mg DAILY SONAL Administration Roflumilast 500 mcg 11/23/17 10:00 12/02/17 11:22 Daliresp - NGT 500 mcg DAILY SONAL Administration Saliva Substitute 1 applic 11/23/17 10:00 12/02/17 10:29 Mouthkote Solution - MM 1 applic DAILY SONAL Administration Laboratory Results - last 24 hr 12/01/17 12/02/17 12/02/17 16:44 05:15 05:15 WBC 12.4 H RBC 2.31 L Hgb 7.3 L D Hct 23.2 L MCV 100.8 H MCH 31.8 MCHC 31.5 L RDW 16.8 H Plt Count 103 L D MPV 12.4 H Sodium 145 Potassium 5.8 H D Chloride 99 Carbon Dioxide 42 H Anion Gap 4 L BUN 77 H D Creatinine 1.6 H D Creat Clearance w eGFR 43.87 POC Glucometer 109.00030 Random Glucose 331 H* D Calcium 7.7 L Phosphorus 7.0 H D Magnesium 2.9 H Total Bilirubin 0.4 D AST 542 H D ALT 650 H D Alkaline Phosphatase 127 H Total Protein 7.0 Albumin 1.8 L Microbiology 12/01/17 08:50 Blood - Peripheral Venous Blood Culture - Preliminary NO GROWTH OBTAINED AFTER 24 HOURS, INCUBATION TO CONTINUE FOR 4 DAYS. 12/01/17 08:06 Blood - Peripheral Venous Blood Culture - Preliminary NO GROWTH OBTAINED AFTER 24 HOURS, INCUBATION TO CONTINUE FOR 4 DAYS. 11/18/17 21:30 Stool Clostridium difficile Antigen (CHUY) - Final 11/18/17 21:30 Stool Clostridium difficile Toxin Assay - Final 11/13/17 17:30 Blood - Peripheral Venous Blood Culture - Final NO GROWTH AFTER 5 DAYS INCUBATION 11/13/17 17:10 Blood - Peripheral Venous Blood Culture - Final NO GROWTH AFTER 5 DAYS INCUBATION 11/14/17 14:30 Sputum - Endotrachea Suction/Ventilator Gram Stain - Final 11/14/17 14:30 Sputum - Endotrachea Suction/Ventilator Sputum Culture - Final Klebsiella Pneumoniae 11/14/17 22:00 Urine - Urine Clean Catch Urine Culture - Final Yeast Like Organism 11/15/17 11:00 Nasopharyngeal Swab Influenza Types A,B Antigen (CHUY) - Final 11/15/17 11:00 Nasopharyngeal Swab - Final 10/21/17 06:00 Serum Cryptococcal Antigen - Final 10/19/17 19:30 Sputum - Expectorated Gram Stain - Final 10/19/17 19:30 Sputum - Expectorated Sputum Culture - Final NORMAL RESPIRATORY TOIYN 10/17/17 10:10 Blood - Peripheral Venous Blood Culture - Final NO GROWTH AFTER 5 DAYS INCUBATION 10/17/17 10:10 Blood - Peripheral Venous Blood Culture - Final NO GROWTH AFTER 5 DAYS INCUBATION 10/17/17 13:57 Urine - Urine Clean Catch Urine Culture - Final NO GROWTH OBTAINED 10/17/17 13:57 Urine For Antigen Detection Legionella Antigen - Final 10/17/17 13:57 Urine For Antigen Detection Streptococcus pneumoniae Antigen (M - Final 10/17/17 10:25 Nasopharyngeal Swab Influenza Types A,B Antigen (CHUY) - Final 10/17/17 10:25 Nasopharyngeal Swab - Final CXR - unchanged, ASSESSMENT AND PLAN: 62 yo M active smoker, pMHx of NIDDM, PUD, BPH admitted with acute hypoxic respiratory failure, and extensive RLE DVT -Acute hypoxic respiratory respiratory failure, worsening suspect RLL consolidation/Aspiration +/- ARDS -Septic shock, likely from above with multiorgan involvement, with MIRLANDE, transaminitis, hyperkalemia -Hyperkalemia -Extensive RLE Acute DVT, s/p IVC filter 10/20, thrombectomy 10/24 -Chronic diastolic heart failure -Hypernatremia, likely hypovolumic -Thrombocytopenia -Elevated INR -Chest wall and right sided abdominal pain -NIDDM -PUD -BPH -Cachexia/malnutrition -Unwitnessed fall 11/19/2017 Plan: Zosyn/vancomycin day 2, blood/sputum cultures. ICU input noted, fentanyl drip. Morphine for comfort as patient in respiratory distress. EKG with no changes. Insulin/Nebs/Kayexalate, repeat K levels. Prognosis grave, continue to address goals of care with family. Plan discussed with Dr. Souza and ICU. Total critical care time in ICU 35 min.
[2017-12-02 14:08] LABS: BASO % 0.5 % (0-2.0); EOS % 0.1 % (0-4.5); HEMOGLOBIN 7.1 GM/dL (11.7-16.9); LYMPH % 12.7 % (8-40); MCH 31.1 pg (25.7-33.7); MCHC 30.9 g/dl (32.0-35.9); MEAN CELL VOLUME 100.5 fl (80-96); MEAN PLT VOLUME 11.4 fl (7.5-11.1); NEUT % 82.7 % (42.8-82.8); PLATELET COUNT 98 K/MM3 (134-434); RBC 2.29 M/mm3 (4.00-5.60); RDW 16.5 % (11.9-15.9)
[2017-12-02 14:35] LABS: ALBUMIN 1.6 g/dl (3.4-5.0); ANION GAP 3 (8-16); BILIRUBIN,TOTAL 0.4 mg/dL (0.2-1.0); BLOOD UREA NITROGEN 65 mg/dL (7-18); CALCIUM 7.5 mg/dL (8.5-10.1); CHLORIDE 103 mmol/L (98-107); CO2 41 mmol/L (21-32); CREATININE 1.2 mg/dL (0.7-1.3); GLUCOSE,RANDOM 138 mg/dL (74-106); POTASSIUM 4.9 mmol/L (3.5-5.1); SGOT/AST 347 U/L (15-37); SODIUM 147 mmol/L (136-145); TOT PROT 6.9 g/dl (6.4-8.2)
[2017-12-02 14:36] LABS: ALK PHOS 125 U/L (45-117); SGPT/ALT 629 U/L (12-78)
--- NOTE | 2017-12-02 17:07 | PN ---
Progress Note, Physician History of Present Illness: Pt seen and examined at bedside. He is clinically doing poorly. - Current Medication List Current Medications: Active Medications Acetaminophen (Tylenol -) 650 mg PO Q6H PRN PRN Reason: FEVER Last Admin: 12/01/17 10:16 Dose: 650 mg Acetaminophen (Ofirmev Injection -) 1,000 mg IVPB Q6H PRN PRN Reason: FEVER Last Admin: 11/26/17 17:31 Dose: 1,000 mg Albuterol/Ipratropium (Duoneb -) 1 amp NEB RQID [facility] Last Admin: 12/02/17 16:46 Dose: 1 amp Apixaban (Eliquis -) 5 mg PO BID [facility] Last Admin: 12/02/17 11:20 Dose: 5 mg Artificial Tears (Artificial Tears Ointment -) 1 applic OU HS [facility] Last Admin: 12/01/17 21:44 Dose: 1 applic Calcium Acetate (Phoslo -) 667 mg PO TIDCM SONAL Chlorhexidine Gluconate (Hibiclens For Decolonization -) 1 applic TP HS [facility] Last Admin: 12/01/17 21:45 Dose: 1 applic Ferrous Sulfate (Feosol) 300 mg GT DAILY [facility] Last Admin: 12/02/17 10:26 Dose: 300 mg Propofol (Diprivan -) 1,000,000 mcg in 100 mls @ 0.555 mls/hr IVPB TITR SONAL; 2.5 MCG/KG/MIN PRN Reason: Protocol Last Admin: 12/01/17 21:42 Dose: Not Given Piperacillin Sod/Tazobactam (Sod 3.375 gm/ Dextrose) 50 mls @ 100 mls/hr IVPB Q8H-IV SONAL PRN Reason: Protocol Last Admin: 12/02/17 10:29 Dose: 100 mls/hr Phenylephrine HCl 20,000 mcg/ (Sodium Chloride) 250 mls @ 75 mls/hr IVPB ASDIR SONAL; 100 MCG/MIN PRN Reason: Protocol Last Titration: 12/02/17 07:24 Dose: 80 mcg/min, 60 mls/hr Fentanyl 500 mcg/ Dextrose 100 mls @ 0.2 mls/hr IVPB TITR SONAL; 1 MCG/HR PRN Reason: Protocol Insulin Aspart (Novolog Vial Sliding Scale -) 1 vial SQ ACHS SONAL PRN Reason: Protocol Last Admin: 12/02/17 12:00 Dose: Not Given Lactobacillus Acidophilus (Bacid -) 1 tab PEG DAILY [facility] Last Admin: 12/02/17 10:30 Dose: 1 tab Metoprolol Tartrate (Lopressor Injection -) 5 mg IVPUSH Q4H PRN PRN Reason: HYPERTENSION Last Admin: 12/01/17 09:34 Dose: 5 mg Morphine Sulfate (Morphine Sulfate) 4 mg IVPUSH Q2H PRN PRN Reason: agonal breathing Last Admin: 12/02/17 10:26 Dose: 4 mg Prednisone (Deltasone -) 40 mg PO DAILY [facility] Last Admin: 12/02/17 11:22 Dose: 40 mg Quetiapine Fumarate (Seroquel -) 25 mg PO HS [facility] Last Admin: 12/01/17 21:45 Dose: 25 mg Ranitidine HCl (Zantac -) 150 mg PO DAILY [facility] Last Admin: 12/02/17 11:21 Dose: 150 mg Roflumilast (Daliresp -) 500 mcg NGT DAILY [facility] Last Admin: 12/02/17 11:22 Dose: 500 mcg Saliva Substitute (Mouthkote Solution -) 1 applic MM DAILY [facility] Last Admin: 12/02/17 10:29 Dose: 1 applic - Objective Vital Signs: Vital Signs Temperature 98.6 F 12/02/17 06:00 Pulse Rate 93 H 12/02/17 16:00 Respiratory Rate 22 12/02/17 16:49 Blood Pressure 119/61 12/02/17 16:00 O2 Sat by Pulse Oximetry (%) 93 L 12/02/17 11:50 Constitutional: Yes: Calm Eyes: Yes: Conjunctiva Clear Neck: Yes: Other (trache) Cardiovascular: Yes: S1, S2 Respiratory: Yes: Mechanically Ventilated Gastrointestinal: Yes: Soft, Other (peg) Musculoskeletal: Yes: Muscle Weakness Edema: No Neurological: Yes: Lethargy Labs: CBC, BMP 12/02/17 13:50 12/02/17 13:50 INR, PTT INR 1.49 (0.82-1.09) H D 12/01/17 06:15 - ....Imaging Chest X-ray: Report Reviewed Problem List - Problems (1) Hypernatremia Code(s): E87.0 - HYPEROSMOLALITY AND HYPERNATREMIA (2) MIRLANDE (acute kidney injury) Code(s): N17.9 - ACUTE KIDNEY FAILURE, UNSPECIFIED (3) Acute respiratory failure with hypoxia Code(s): J96.01 - ACUTE RESPIRATORY FAILURE WITH HYPOXIA (4) Diabetes Code(s): E11.9 - TYPE 2 DIABETES MELLITUS WITHOUT COMPLICATIONS (5) Failure to thrive Code(s): ZOY5006 - Assessment/Plan Current Medications Generic Name Dose Route Start Last Admin Trade Name Freq PRN Reason Stop Dose Admin Acetaminophen 650 mg 11/22/17 23:20 12/01/17 10:16 Tylenol - PO 650 mg Q6H PRN Administration FEVER Acetaminophen 1,000 mg 11/22/17 23:20 11/26/17 17:31 Ofirmev Injection - IVPB 1,000 mg Q6H PRN Administration FEVER Albuterol/Ipratropium 1 amp 11/23/17 08:00 12/02/17 16:46 Duoneb - NEB 1 amp RQID SONAL Administration Apixaban 5 mg 11/23/17 10:00 12/02/17 11:20 Eliquis - PO 5 mg BID SONAL Administration Artificial Tears 1 applic 11/23/17 22:00 12/01/17 21:44 Artificial Tears Ointment - OU 1 applic HS SONAL Administration Calcium Acetate 667 mg 12/02/17 12:00 Phoslo - PO TIDCM SONAL Chlorhexidine Gluconate 1 applic 11/22/17 22:00 12/01/17 21:45 Hibiclens For Decolonization - TP 1 applic HS SONAL Administration Ferrous Sulfate 300 mg 11/23/17 10:00 12/02/17 10:26 Feosol GT 300 mg DAILY SONAL Administration Propofol 1,000,000 mcg in 100 mls @ 0.555 mls/hr 11/30/17 18:45 12/01/17 21: 42 Diprivan - IVPB Not Given TITR SONAL Protocol 2.5 MCG/KG/MIN Piperacillin Sod/Tazobactam 50 mls @ 100 mls/hr 12/01/17 14:00 12/02/17 10:29 Sod 3.375 gm/ Dextrose IVPB 100 mls/hr Q8H-IV SONAL Administration Protocol Phenylephrine HCl 20,000 mcg/ 250 mls @ 75 mls/hr 12/01/17 14:30 02/17/18 07: 24 Sodium Chloride IVPB 80 mcg/min ASDIR SONAL 60 mls/hr Protocol Titration 100 MCG/MIN Fentanyl 500 mcg/ Dextrose 100 mls @ 0.2 mls/hr 12/02/17 09:00 IVPB TITR SONAL Protocol 1 MCG/HR Insulin Aspart 1 vial 11/23/17 07:00 12/02/17 12:00 Novolog Vial Sliding Scale - SQ Not Given ACHS SONAL Protocol Lactobacillus Acidophilus 1 tab 11/23/17 10:00 12/02/17 10:30 Bacid - PEG 1 tab DAILY SONAL Administration Metoprolol Tartrate 5 mg 11/22/17 23:20 12/01/17 09:34 Lopressor Injection - IVPUSH 5 mg Q4H PRN Administration HYPERTENSION Morphine Sulfate 4 mg 12/01/17 12:52 12/02/17 10:26 Morphine Sulfate IVPUSH 4 mg Q2H PRN Administration agonal breathing Prednisone 40 mg 11/23/17 10:00 12/02/17 11:22 Deltasone - PO 40 mg DAILY SONAL Administration Quetiapine Fumarate 25 mg 11/23/17 22:00 12/01/17 21:45 Seroquel - PO 25 mg HS SONAL Administration Ranitidine HCl 150 mg 11/23/17 10:00 12/02/17 11:21 Zantac - PO 150 mg DAILY SONAL Administration Roflumilast 500 mcg 11/23/17 10:00 12/02/17 11:22 Daliresp - NGT 500 mcg DAILY SONAL Administration Saliva Substitute 1 applic 11/23/17 10:00 12/02/17 10:29 Mouthkote Solution - MM 1 applic DAILY SONAL Administration Impression 1. MIRLANDE 2. hypernatremia 3. chronic resp failure s/p trache 4. s/p trache 5. s/p peg 6. sepsis 7. interstitial lung disease 8. chf diastolic 9. DM 10. lactic acidosis 11. PNA Plan - pt remains hypotensive - monitor lytes - no acute change in management - feeds as toleratd - prognosis is poor - discussed with medical team Dr Gan
[2017-12-02] MEDS ORDERED: PT OWN MED DRAWER 7, Y5N ONE ×2 (17:24→20:47)
[2017-12-02] MEDS: PHENYLEPHRINE HCL 20,000 MCG in SODIUM CHLORIDE 248 ML IVPB SCH (17:37)
[2017-12-02] MEDS ORDERED: FENTANYL INJECTION 500 MCG in SODIUM CHLORIDE 90 ML IVPB SCH (19:00)
[2017-12-02] MEDS: QUEtiapine FUMARATE 25 MG TABLET (FP) PO SCH (21:03)
[2017-12-02] MEDS: MINERAL OIL/PETROLATUM,WHITE 3.5 GM TUBE OU SCH (21:04)
[2017-12-02] MEDS: CHLORHEXIDINE GLUCONATE 4% CLEANSER FOR DECOLONIZATION TP SCH (21:04)
[2017-12-03] MEDS: PIPERACILLIN/TAZOB 3.375 GM 3.375 GM in DEXTROSE 5%-WATER - 50 ML IVPB SCH ×3 (01:03→18:52)
[2017-12-03] MEDS ORDERED: PT OWN MED DRAWER 7, Y5N ONE ×3 (05:33→21:22)
[2017-12-03] MEDS: BANATROL PLUS POWDER PACKET PEG SCH ×3 (05:35→22:18)
[2017-12-03] MEDS: INSULIN SLIDING SCALE (NOVOLOG) 1 VIAL SQ SCH ×4 (06:06→22:18)
[2017-12-03 06:38] LABS: HEMATOCRIT 24.3 % (35.4-49); HEMOGLOBIN 7.5 GM/dL (11.7-16.9); MCH 31.6 pg (25.7-33.7); MEAN PLT VOLUME 12.6 fl (7.5-11.1); PLATELET COUNT 81 K/MM3 (134-434); RBC 2.39 M/mm3 (4.00-5.60); RDW 17.1 % (11.9-15.9)
[2017-12-03 07:05] LABS: ALBUMIN 1.5 g/dl (3.4-5.0); ANION GAP 4 (8-16); BILIRUBIN,TOTAL 0.5 mg/dL (0.2-1.0); BLOOD UREA NITROGEN 62 mg/dL (7-18); CALCIUM 7.9 mg/dL (8.5-10.1); CHLORIDE 99 mmol/L (98-107); CO2 43 mmol/L (21-32); MAGNESIUM 2.8 mg/dL (1.8-2.4); PHOSPHOROUS 4.9 mg/dL (2.5-4.9); POTASSIUM 4.8 mmol/L (3.5-5.1); SGOT/AST 280 U/L (15-37); SODIUM 146 mmol/L (136-145); TOT PROT 7.1 g/dl (6.4-8.2)
[2017-12-03 07:07] LABS: ALK PHOS 145 U/L (45-117)
[2017-12-03 07:10] LABS: GLUCOSE,RANDOM 337 mg/dL (74-106); SGPT/ALT 721 U/L (12-78)
[2017-12-03] MEDS: ALBUTEROL SO4 2.5/IPRATROPIUM 0.5 INH SOL 3 ML VIAL.NEB. NEB SCH ×4 (08:45→20:50)
[2017-12-03] MEDS: CALCIUM ACETATE 667 MG CAPSULE (FP) PO SCH ×3 (09:14→17:30)
[2017-12-03] MEDS: FERROUS SO4 300 MG/5 ML ORAL SOLN UNIT DOSE CUPS GT SCH (09:18)
[2017-12-03] MEDS: LACTOBACILLUS ACIDOPHILUS 1 EACH TAB (FP) PEG SCH (09:19)
[2017-12-03] MEDS: RANITIDINE HCL 150 MG TABLET (FP) PO SCH (09:19)
[2017-12-03] MEDS: predniSONE 20 MG TABLET (UD) PO SCH (09:19)
[2017-12-03] MEDS: ROFLUMILAST 500 MCG TABLET NGT SCH (09:20)
[2017-12-03] MEDS: APIXABAN 5 MG TABLET PO SCH ×2 (09:20→22:18)
[2017-12-03] MEDS: LYTES/YERBA SANTA 240 ML BOTTLE MM SCH (09:22)
--- NOTE | 2017-12-03 10:07 | PN ---
Progress Note (short form) - Note Progress Note: Patient seen and examined in the ICU. Awake and interactive. Low dose phenylephrine for hemodynamic support. Low garde temps. AC Mode of vent, 100% FiO2. CXR: no gross change in bilateral infiltrates OBJECTIVE: Intake & Output 11/30/17 12/01/17 12/02/17 12/03/17 23:59 23:59 23:59 23:59 Intake Total 3230 3143.2 47.2 788 Output Total 2276 557 6738 520 Balance 1929 2743.2 -2352.8 268 Weight 81 lb 8 oz 78 lb 4 oz 82 lb 4 oz 83 lb 3.2 oz Last Vital Signs Temp Pulse Resp BP Pulse Ox 99.5 F 93 H 18 115/70 100 12/03/17 06:00 12/03/17 08:25 12/03/17 08:41 12/03/17 08:00 12/03/17 08:25 Active Medications Acetaminophen (Tylenol -) 650 mg PO Q6H PRN PRN Reason: FEVER Last Admin: 12/01/17 10:16 Dose: 650 mg Acetaminophen (Ofirmev Injection -) 1,000 mg IVPB Q6H PRN PRN Reason: FEVER Last Admin: 11/26/17 17:31 Dose: 1,000 mg Albuterol/Ipratropium (Duoneb -) 1 amp NEB RQID [facility] Last Admin: 12/03/17 08:45 Dose: 1 amp Apixaban (Eliquis -) 5 mg PO BID [facility] Last Admin: 12/03/17 09:20 Dose: 5 mg Artificial Tears (Artificial Tears Ointment -) 1 applic OU HS [facility] Last Admin: 12/02/17 21:04 Dose: 1 applic Calcium Acetate (Phoslo -) 667 mg PO TIDCM [facility] Last Admin: 12/03/17 09:14 Dose: 667 mg Chlorhexidine Gluconate (Hibiclens For Decolonization -) 1 applic TP HS [facility] Last Admin: 12/02/17 21:04 Dose: 1 applic Ferrous Sulfate (Feosol) 300 mg GT DAILY [facility] Last Admin: 12/03/17 09:18 Dose: 300 mg Piperacillin Sod/Tazobactam (Sod 3.375 gm/ Dextrose) 50 mls @ 100 mls/hr IVPB Q8H-IV [facility]ON[facility] PRN Reason: Protocol Last Admin: 12/03/17 09:21 Dose: 100 mls/hr Phenylephrine HCl 20,000 mcg/ (Sodium Chloride) 250 mls @ 75 mls/hr IVPB ASDIR SONAL; 100 MCG/MIN PRN Reason: Protocol Last Titration: 12/03/17 02:00 Dose: 8 mcg/min, 6 mls/hr Insulin Aspart (Novolog Vial Sliding Scale -) 1 vial SQ ACHS [facility] PRN Reason: Protocol Last Admin: 12/03/17 06:06 Dose: 8 units Lactobacillus Acidophilus (Bacid -) 1 tab PEG DAILY [facility] Last Admin: 12/03/17 09:19 Dose: 1 tab Metoprolol Tartrate (Lopressor Injection -) 5 mg IVPUSH Q4H PRN PRN Reason: HYPERTENSION Last Admin: 12/01/17 09:34 Dose: 5 mg Morphine Sulfate (Morphine Sulfate) 4 mg IVPUSH Q2H PRN PRN Reason: agonal breathing Last Admin: 12/02/17 17:36 Dose: 4 mg Prednisone (Deltasone -) 40 mg PO DAILY [facility] Last Admin: 12/03/17 09:19 Dose: 40 mg Quetiapine Fumarate (Seroquel -) 25 mg PO HS [facility] Last Admin: 12/02/17 21:03 Dose: 25 mg Ranitidine HCl (Zantac -) 150 mg PO DAILY [facility] Last Admin: 12/03/17 09:19 Dose: 150 mg Roflumilast (Daliresp -) 500 mcg NGT DAILY [facility] Last Admin: 12/03/17 09:20 Dose: 500 mcg Saliva Substitute (Mouthkote Solution -) 1 applic MM DAILY [facility] Last Admin: 12/03/17 09:22 Dose: 1 applic Gen: vented, tachypneic, cachectic Heart: tachycardic, regular Lung: scattered rhonchi Abd: soft, nontender Ext: no edema Laboratory Results - last 24 hr 12/02/17 12/02/17 12/02/17 07:33 13:13 13:50 WBC 10.0 RBC 2.29 L Hgb 7.1 L Hct 23.0 L MCV 100.5 H MCH 31.1 MCHC 30.9 L RDW 16.5 H Plt Count 98 L MPV 11.4 H Neutrophils % 82.7 Lymphocytes % 12.7 Monocytes % 4.0 Eosinophils % 0.1 Basophils % 0.5 Sodium Potassium Chloride Carbon Dioxide Anion Gap BUN Creatinine Creat Clearance w eGFR POC Glucometer 400.34221 138.20329 Random Glucose Calcium Phosphorus Magnesium Total Bilirubin AST ALT Alkaline Phosphatase Total Protein Albumin 12/02/17 12/02/17 12/02/17 13:50 17:49 21:03 WBC RBC Hgb Hct MCV MCH MCHC RDW Plt Count MPV Neutrophils % Lymphocytes % Monocytes % Eosinophils % Basophils % Sodium 147 H Potassium 4.9 Chloride 103 Carbon Dioxide 41 H Anion Gap 3 L BUN 65 H Creatinine 1.2 D Creat Clearance w eGFR > 60 POC Glucometer 248.47169 248.01692 Random Glucose 138 H D Calcium 7.5 L Phosphorus Magnesium Total Bilirubin 0.4 AST 347 H D ALT 629 H Alkaline Phosphatase 125 H Total Protein 6.9 Albumin 1.6 L 12/03/17 12/03/17 05:40 05:40 WBC 8.0 RBC 2.39 L Hgb 7.5 L Hct 24.3 L MCV 102.0 H MCH 31.6 MCHC 31.0 L RDW 17.1 H Plt Count 81 L MPV 12.6 H D Neutrophils % Lymphocytes % Monocytes % Eosinophils % Basophils % Sodium 146 H Potassium 4.8 Chloride 99 Carbon Dioxide 43 H Anion Gap 4 L BUN 62 H Creatinine 1.0 Creat Clearance w eGFR > 60 POC Glucometer Random Glucose 337 H* D Calcium 7.9 L Phosphorus 4.9 D Magnesium 2.8 H Total Bilirubin 0.5 D AST 280 H ALT 721 H Alkaline Phosphatase 145 H Total Protein 7.1 Albumin 1.5 L Problem List - Problems (1) Acute respiratory failure with hypoxia Code(s): J96.01 - ACUTE RESPIRATORY FAILURE WITH HYPOXIA (2) Pneumonia Code(s): J18.9 - PNEUMONIA, UNSPECIFIED ORGANISM (3) Diabetes Code(s): E11.9 - TYPE 2 DIABETES MELLITUS WITHOUT COMPLICATIONS ASSESSMENT AND PLAN: Acute Hypoxic Respiratory Failure s/p Tracheostomy New Aspiration pneumonitis / PNA Sepsis Interstitial Lung Disease Acute Diastolic Heart Failure improved Acute Kidney Injury Lactic Acidosis resolved DM RLE DVT - ABX per ID - monitor urine output, creatinine - Prednisone - Anxiolytics, seroquel qHS - Enteral feeds - continue anticoagulation, monitor H/H - Morphine for comfort / RR - Taper FiO2 to keep SpO2 >90% - Not a candidate for spontaneous breathing trials - DVT/GI prophylaxis - continue discussions regarding goals of care as pt with clinical deterioration and limited options - continue ICU monitoring while on pressors (will attempt to D/C) - Will need further family discussions for GOC as overall outcome appears grave Dr Souza Critical care time spent in reviewing chart, evaluating patient and formulating plan 36 min
--- NOTE | 2017-12-03 11:41 | PN ---
Progress Note, Physician History of Present Illness: Much more awake, alert, and responsive Breathing non-labored Temps, WBC improved LFTs elevated - Current Medication List Current Medications: Active Medications Acetaminophen (Tylenol -) 650 mg PO Q6H PRN PRN Reason: FEVER Last Admin: 12/01/17 10:16 Dose: 650 mg Acetaminophen (Ofirmev Injection -) 1,000 mg IVPB Q6H PRN PRN Reason: FEVER Last Admin: 11/26/17 17:31 Dose: 1,000 mg Albuterol/Ipratropium (Duoneb -) 1 amp NEB RQID [facility] Last Admin: 12/03/17 08:45 Dose: 1 amp Apixaban (Eliquis -) 5 mg PO BID [facility] Last Admin: 12/03/17 09:20 Dose: 5 mg Artificial Tears (Artificial Tears Ointment -) 1 applic OU HS [facility] Last Admin: 12/02/17 21:04 Dose: 1 applic Calcium Acetate (Phoslo -) 667 mg PO TIDCM [facility] Last Admin: 12/03/17 09:14 Dose: 667 mg Chlorhexidine Gluconate (Hibiclens For Decolonization -) 1 applic TP HS [facility] Last Admin: 12/02/17 21:04 Dose: 1 applic Ferrous Sulfate (Feosol) 300 mg GT DAILY [facility] Last Admin: 12/03/17 09:18 Dose: 300 mg Piperacillin Sod/Tazobactam (Sod 3.375 gm/ Dextrose) 50 mls @ 100 mls/hr IVPB Q8H-IV [facility] PRN Reason: Protocol Last Admin: 12/03/17 09:21 Dose: 100 mls/hr Phenylephrine HCl 20,000 mcg/ (Sodium Chloride) 250 mls @ 75 mls/hr IVPB ASDIR SONAL; 100 MCG/MIN PRN Reason: Protocol Last Titration: 12/03/17 02:00 Dose: 8 mcg/min, 6 mls/hr Insulin Aspart (Novolog Vial Sliding Scale -) 1 vial SQ ACHS [facility] PRN Reason: Protocol Last Admin: 12/03/17 06:06 Dose: 8 units Lactobacillus Acidophilus (Bacid -) 1 tab PEG DAILY [facility] Last Admin: 12/03/17 09:19 Dose: 1 tab Metoprolol Tartrate (Lopressor Injection -) 5 mg IVPUSH Q4H PRN PRN Reason: HYPERTENSION Last Admin: 12/01/17 09:34 Dose: 5 mg Morphine Sulfate (Morphine Sulfate) 4 mg IVPUSH Q2H PRN PRN Reason: agonal breathing Last Admin: 12/02/17 17:36 Dose: 4 mg Prednisone (Deltasone -) 40 mg PO DAILY [facility] Last Admin: 12/03/17 09:19 Dose: 40 mg Quetiapine Fumarate (Seroquel -) 25 mg PO HS [facility] Last Admin: 12/02/17 21:03 Dose: 25 mg Ranitidine HCl (Zantac -) 150 mg PO DAILY [facility] Last Admin: 12/03/17 09:19 Dose: 150 mg Roflumilast (Daliresp -) 500 mcg NGT DAILY [facility] Last Admin: 12/03/17 09:20 Dose: 500 mcg Saliva Substitute (Mouthkote Solution -) 1 applic MM DAILY [facility] Last Admin: 12/03/17 09:22 Dose: 1 applic - Objective Vital Signs: Vital Signs Temperature 99.5 F 12/03/17 06:00 Pulse Rate 93 H 12/03/17 08:25 Respiratory Rate 18 12/03/17 08:41 Blood Pressure 115/70 12/03/17 08:00 O2 Sat by Pulse Oximetry (%) 100 12/03/17 08:25 Constitutional: Yes: No Distress, Cachectic Eyes: Yes: Conjunctiva Clear Cardiovascular: Yes: Regular Rate and Rhythm, Tachycardia, S1, S2 Respiratory: Yes: Diminished Gastrointestinal: Yes: Normal Bowel Sounds, Soft. No: Tenderness Edema: No Labs: CBC, BMP 12/03/17 05:40 12/03/17 05:40 INR, PTT INR 1.49 (0.82-1.09) H D 12/01/17 06:15 Assessment/Plan Hospital acquired R pneumonia, possible aspiration Sepsis Interstitial lung disease Elevated LFTs ? shock liver Sputum c/s pending Continue empiric coverage HCAP with zosyn
[2017-12-03] MEDS: PHENYLEPHRINE HCL 20,000 MCG in SODIUM CHLORIDE 248 ML IVPB SCH (14:55)
--- NOTE | 2017-12-03 17:19 | PN ---
Teaching Attending Note Name of Resident: Estefania Ramirez SUBJECTIVE: Patient seen and examined. awake today, tachypneic, overall reports feels the same, no pain or new complaints. OBJECTIVE: Vital Signs Period Temp Pulse Resp BP Sys/Sutton Pulse Ox Last 24 Hr 98.5 F-99.5 F 84-113 14-25 100-136/59-73 95-100 Intake & Output 11/30/17 12/01/17 12/02/17 12/03/17 23:59 23:59 23:59 23:59 Intake Total 3230 3143.2 47.2 788 Output Total 9360 023 2869 1520 Balance 1929 2743.2 -2352.8 -732 Weight 81 lb 8 oz 78 lb 4 oz 82 lb 4 oz 83 lb 3.2 oz GEneral: tachypneic Chest: improved anterior rhonchi, bibasilar to mid lungs fine rales CVS;S1S2 regular, tachycardic Abdomen:soft, scaphoid, PEG in place extremities: no edema Home Medication List Medication Instructions Recorded Confirmed Type Glipizide [Glucotrol Xl] 0 mg PO ASDIR 10/17/17 10/17/17 History Metformin HCl 0 mg PO ASDIR 10/17/17 10/17/17 History Tamsulosin HCl 0.4 mg PO DAILY 10/17/17 10/17/17 History Active Medications Generic Name Dose Route Start Last Admin Trade Name Freq PRN Reason Stop Dose Admin Acetaminophen 650 mg 11/22/17 23:20 12/01/17 10:16 Tylenol - PO 650 mg Q6H PRN Administration FEVER Acetaminophen 1,000 mg 11/22/17 23:20 11/26/17 17:31 Ofirmev Injection - IVPB 1,000 mg Q6H PRN Administration FEVER Albuterol/Ipratropium 1 amp 11/23/17 08:00 12/03/17 16:20 Duoneb - NEB 1 amp RQID [facility] Administration Apixaban 5 mg 11/23/17 10:00 12/03/17 09:20 Eliquis - PO 5 mg BID [facility] Administration Artificial Tears 1 applic 11/23/17 22:00 12/02/17 21:04 Artificial Tears Ointment - OU 1 applic HS [facility] Administration Calcium Acetate 667 mg 12/02/17 12:00 12/03/17 12:42 Phoslo - PO 667 mg TIDCM [facility] Administration Chlorhexidine Gluconate 1 applic 11/22/17 22:00 12/02/17 21:04 Hibiclens For Decolonization - TP 1 applic HS [facility] Administration Ferrous Sulfate 300 mg 11/23/17 10:00 12/03/17 09:18 Feosol GT 300 mg DAILY [facility] Administration Piperacillin Sod/Tazobactam 50 mls @ 100 mls/hr 12/01/17 14:00 12/03/17 09:21 Sod 3.375 gm/ Dextrose IVPB 100 mls/hr Q8H-IV [facility] Administration Protocol Phenylephrine HCl 20,000 mcg/ 250 mls @ 75 mls/hr 12/01/17 14:30 12/03/17 14: 55 Sodium Chloride IVPB Not Given ASDIR [facility] Protocol 100 MCG/MIN Insulin Aspart 1 vial 11/23/17 07:00 12/03/17 12:41 Novolog Vial Sliding Scale - SQ 10 units ACHS [facility] Administration Protocol Lactobacillus Acidophilus 1 tab 11/23/17 10:00 12/03/17 09:19 Bacid - PEG 1 tab DAILY [facility] Administration Metoprolol Tartrate 5 mg 11/22/17 23:20 12/01/17 09:34 Lopressor Injection - IVPUSH 5 mg Q4H PRN Administration HYPERTENSION Morphine Sulfate 4 mg 12/01/17 12:52 12/02/17 17:36 Morphine Sulfate IVPUSH 4 mg Q2H PRN Administration agonal breathing Prednisone 40 mg 11/23/17 10:00 12/03/17 09:19 Deltasone - PO 40 mg DAILY [facility] Administration Quetiapine Fumarate 25 mg 11/23/17 22:00 12/02/17 21:03 Seroquel - PO 25 mg HS [facility] Administration Ranitidine HCl 150 mg 11/23/17 10:00 12/03/17 09:19 Zantac - PO 150 mg DAILY [facility] Administration Roflumilast 500 mcg 11/23/17 10:00 12/03/17 09:20 Daliresp - NGT 500 mcg DAILY [facility] Administration Saliva Substitute 1 applic 11/23/17 10:00 12/03/17 09:22 Mouthkote Solution - MM 1 applic DAILY [facility] Administration Laboratory Results - last 24 hr 12/02/17 12/02/17 12/02/17 07:33 13:13 17:49 WBC RBC Hgb Hct MCV MCH MCHC RDW Plt Count MPV Sodium Potassium Chloride Carbon Dioxide Anion Gap BUN Creatinine Creat Clearance w eGFR POC Glucometer 400.64941 138.32871 248.86493 Random Glucose Calcium Phosphorus Magnesium Total Bilirubin AST ALT Alkaline Phosphatase Total Protein Albumin 12/02/17 12/03/17 12/03/17 21:03 05:39 05:40 WBC 8.0 RBC 2.39 L Hgb 7.5 L Hct 24.3 L MCV 102.0 H MCH 31.6 MCHC 31.0 L RDW 17.1 H Plt Count 81 L MPV 12.6 H D Sodium Potassium Chloride Carbon Dioxide Anion Gap BUN Creatinine Creat Clearance w eGFR POC Glucometer 248.86795 394.41139 Random Glucose Calcium Phosphorus Magnesium Total Bilirubin AST ALT Alkaline Phosphatase Total Protein Albumin 12/03/17 05:40 WBC RBC Hgb Hct MCV MCH MCHC RDW Plt Count MPV Sodium 146 H Potassium 4.8 Chloride 99 Carbon Dioxide 43 H Anion Gap 4 L BUN 62 H Creatinine 1.0 Creat Clearance w eGFR > 60 POC Glucometer Random Glucose 337 H* D Calcium 7.9 L Phosphorus 4.9 D Magnesium 2.8 H Total Bilirubin 0.5 D AST 280 H ALT 721 H Alkaline Phosphatase 145 H Total Protein 7.1 Albumin 1.5 L Microbiology 12/02/17 20:00 Urine For Antigen Detection Legionella Antigen - Final 12/02/17 20:00 Urine For Antigen Detection Streptococcus pneumoniae Antigen (M - Final 12/01/17 08:50 Blood - Peripheral Venous Blood Culture - Preliminary NO GROWTH OBTAINED AFTER 48 HOURS, INCUBATION TO CONTINUE FOR 3 DAYS. 12/01/17 08:06 Blood - Peripheral Venous Blood Culture - Preliminary NO GROWTH OBTAINED AFTER 48 HOURS, INCUBATION TO CONTINUE FOR 3 DAYS. 12/01/17 10:00 Urine - Urine Clean Catch Urine Culture - Preliminary Lactose Fermenting Neg Bacilli 11/18/17 21:30 Stool Clostridium difficile Antigen ([facility]) - Final 11/18/17 21:30 Stool Clostridium difficile Toxin Assay - Final 11/13/17 17:30 Blood - Peripheral Venous Blood Culture - Final NO GROWTH AFTER 5 DAYS INCUBATION 11/13/17 17:10 Blood - Peripheral Venous Blood Culture - Final NO GROWTH AFTER 5 DAYS INCUBATION 11/14/17 14:30 Sputum - Endotrachea Suction/Ventilator Gram Stain - Final 11/14/17 14:30 Sputum - Endotrachea Suction/Ventilator Sputum Culture - Final Klebsiella Pneumoniae 11/14/17 22:00 Urine - Urine Clean Catch Urine Culture - Final Yeast Like Organism 11/15/17 11:00 Nasopharyngeal Swab Influenza Types A,B Antigen ([facility]) - Final 11/15/17 11:00 Nasopharyngeal Swab - Final 10/21/17 06:00 Serum Cryptococcal Antigen - Final 10/19/17 19:30 Sputum - Expectorated Gram Stain - Final 10/19/17 19:30 Sputum - Expectorated Sputum Culture - Final NORMAL RESPIRATORY TOYIN 10/17/17 10:10 Blood - Peripheral Venous Blood Culture - Final NO GROWTH AFTER 5 DAYS INCUBATION 10/17/17 10:10 Blood - Peripheral Venous Blood Culture - Final NO GROWTH AFTER 5 DAYS INCUBATION 10/17/17 13:57 Urine - Urine Clean Catch Urine Culture - Final NO GROWTH OBTAINED 10/17/17 13:57 Urine For Antigen Detection Legionella Antigen - Final 10/17/17 13:57 Urine For Antigen Detection Streptococcus pneumoniae Antigen (M - Final 10/17/17 10:25 Nasopharyngeal Swab Influenza Types A,B Antigen ([facility]) - Final 10/17/17 10:25 Nasopharyngeal Swab - Final ASSESSMENT AND PLAN: 62 yo M active smoker, pMHx of NIDDM, PUD, BPH admitted with acute hypoxic respiratory failure, and extensive RLE DVT -Acute hypoxic respiratory respiratory failure, worsening suspect RLL consolidation/Aspiration +/- ARDS,suspect HCAP -Septic shock, likely from above with multiorgan involvement, with MIRLANDE, likely shock liver, hyperkalemia -Elevated LFTs, ?Shock liver -Hyperkalemia -Extensive RLE Acute DVT, s/p IVC filter 10/20, thrombectomy 10/24 -Chronic diastolic heart failure -Hypernatremia, likely hypovolumic -Thrombocytopenia -Elevated INR -Chest wall and right sided abdominal pain -NIDDM -PUD -BPH -Cachexia/malnutrition -Unwitnessed fall 11/19/2017 -Chest pain on 12/02, with non specific Anterolateral changes Plan: Zosyn day 3, blood/sputum cultures/urine cultures noted. Off fentanyl/Phenylephrine drips. trend LFTs, renal function. MIRLANDE resolved. Monitor K levels. Prednisone for ILD per ICU. Resume levemir at 5 units daily and titrate as needed, ISS. Prognosis grave, continue to address goals of care with family. Total critical care time in ICU 35 min.
--- NOTE | 2017-12-03 18:09 | PN ---
Progress Note, Physician History of Present Illness: Pt seen and examined at bedside. He appears more comfortable today than he was yesterday. - Current Medication List Current Medications: Active Medications Acetaminophen (Tylenol -) 650 mg PO Q6H PRN PRN Reason: FEVER Last Admin: 12/01/17 10:16 Dose: 650 mg Acetaminophen (Ofirmev Injection -) 1,000 mg IVPB Q6H PRN PRN Reason: FEVER Last Admin: 11/26/17 17:31 Dose: 1,000 mg Albuterol/Ipratropium (Duoneb -) 1 amp NEB RQID [facility] Last Admin: 12/03/17 16:20 Dose: 1 amp Apixaban (Eliquis -) 5 mg PO BID [facility] Last Admin: 12/03/17 09:20 Dose: 5 mg Artificial Tears (Artificial Tears Ointment -) 1 applic OU HS [facility] Last Admin: 12/02/17 21:04 Dose: 1 applic Calcium Acetate (Phoslo -) 667 mg PO TIDCM [facility] Last Admin: 12/03/17 12:42 Dose: 667 mg Chlorhexidine Gluconate (Hibiclens For Decolonization -) 1 applic TP HS [facility] Last Admin: 12/02/17 21:04 Dose: 1 applic Ferrous Sulfate (Feosol) 300 mg GT DAILY [facility] Last Admin: 12/03/17 09:18 Dose: 300 mg Piperacillin Sod/Tazobactam (Sod 3.375 gm/ Dextrose) 50 mls @ 100 mls/hr IVPB Q8H-IV [facility]ON[facility] PRN Reason: Protocol Last Admin: 12/03/17 09:21 Dose: 100 mls/hr Phenylephrine HCl 20,000 mcg/ (Sodium Chloride) 250 mls @ 75 mls/hr IVPB ASDIR [facility]ON[facility]; 100 MCG/MIN PRN Reason: Protocol Last Admin: 12/03/17 14:55 Dose: Not Given Insulin Aspart (Novolog Vial Sliding Scale -) 1 vial SQ ACHS [facility] PRN Reason: Protocol Last Admin: 12/03/17 12:41 Dose: 10 units Insulin Detemir (Levemir Vial) 5 units SQ HS [facility] Lactobacillus Acidophilus (Bacid -) 1 tab PEG DAILY [facility] Last Admin: 12/03/17 09:19 Dose: 1 tab Metoprolol Tartrate (Lopressor Injection -) 5 mg IVPUSH Q4H PRN PRN Reason: HYPERTENSION Last Admin: 12/01/17 09:34 Dose: 5 mg Morphine Sulfate (Morphine Sulfate) 4 mg IVPUSH Q2H PRN PRN Reason: agonal breathing Last Admin: 12/02/17 17:36 Dose: 4 mg Prednisone (Deltasone -) 40 mg PO DAILY [facility] Last Admin: 12/03/17 09:19 Dose: 40 mg Quetiapine Fumarate (Seroquel -) 25 mg PO HS [facility] Last Admin: 12/02/17 21:03 Dose: 25 mg Ranitidine HCl (Zantac -) 150 mg PO DAILY [facility] Last Admin: 12/03/17 09:19 Dose: 150 mg Roflumilast (Daliresp -) 500 mcg NGT DAILY [facility] Last Admin: 12/03/17 09:20 Dose: 500 mcg Saliva Substitute (Mouthkote Solution -) 1 applic MM DAILY [facility] Last Admin: 12/03/17 09:22 Dose: 1 applic - Objective Vital Signs: Vital Signs Temperature 99.5 F 12/03/17 06:00 Pulse Rate 96 H 12/03/17 14:55 Respiratory Rate 20 12/03/17 17:38 Blood Pressure 136/70 12/03/17 14:55 O2 Sat by Pulse Oximetry (%) 100 12/03/17 08:25 Constitutional: Yes: Calm Eyes: Yes: Conjunctiva Clear HENT: Yes: Atraumatic Neck: Yes: Other (trache) Cardiovascular: Yes: S1, S2 Respiratory: Yes: Mechanically Ventilated Gastrointestinal: Yes: Soft, Other (peg) Musculoskeletal: Yes: Muscle Weakness Edema: No Neurological: Yes: Oriented Labs: CBC, BMP 12/03/17 05:40 12/03/17 05:40 INR, PTT INR 1.49 (0.82-1.09) H D 12/01/17 06:15 - ....Imaging Chest X-ray: Report Reviewed Problem List - Problems (1) Hypernatremia Code(s): E87.0 - HYPEROSMOLALITY AND HYPERNATREMIA (2) MIRLANDE (acute kidney injury) Code(s): N17.9 - ACUTE KIDNEY FAILURE, UNSPECIFIED (3) Acute respiratory failure with hypoxia Code(s): J96.01 - ACUTE RESPIRATORY FAILURE WITH HYPOXIA (4) Diabetes Code(s): E11.9 - TYPE 2 DIABETES MELLITUS WITHOUT COMPLICATIONS (5) Failure to thrive Code(s): [id number] - Assessment/Plan Current Medications Generic Name Dose Route Start Last Admin Trade Name Freq PRN Reason Stop Dose Admin Acetaminophen 650 mg 11/22/17 23:20 12/01/17 10:16 Tylenol - PO 650 mg Q6H PRN Administration FEVER Acetaminophen 1,000 mg 11/22/17 23:20 11/26/17 17:31 Ofirmev Injection - IVPB 1,000 mg Q6H PRN Administration FEVER Albuterol/Ipratropium 1 amp 11/23/17 08:00 12/03/17 16:20 Duoneb - NEB 1 amp RQID [facility] Administration Apixaban 5 mg 11/23/17 10:00 12/03/17 09:20 Eliquis - PO 5 mg BID [facility] Administration Artificial Tears 1 applic 11/23/17 22:00 12/02/17 21:04 Artificial Tears Ointment - OU 1 applic HS [facility] Administration Calcium Acetate 667 mg 12/02/17 12:00 12/03/17 12:42 Phoslo - PO 667 mg TIDCM [facility] Administration Chlorhexidine Gluconate 1 applic 11/22/17 22:00 12/02/17 21:04 Hibiclens For Decolonization - TP 1 applic HS [facility] Administration Ferrous Sulfate 300 mg 11/23/17 10:00 12/03/17 09:18 Feosol GT 300 mg DAILY [facility] Administration Piperacillin Sod/Tazobactam 50 mls @ 100 mls/hr 12/01/17 14:00 12/03/17 09:21 Sod 3.375 gm/ Dextrose IVPB 100 mls/hr Q8H-IV [facility] Administration Protocol Phenylephrine HCl 20,000 mcg/ 250 mls @ 75 mls/hr 12/01/17 14:30 12/03/17 14: 55 Sodium Chloride IVPB Not Given ASDIR [facility] Protocol 100 MCG/MIN Insulin Aspart 1 vial 11/23/17 07:00 12/03/17 12:41 Novolog Vial Sliding Scale - SQ 10 units ACHS [facility] Administration Protocol Insulin Detemir 5 units 12/03/17 22:00 Levemir Vial SQ HS [facility] Lactobacillus Acidophilus 1 tab 11/23/17 10:00 12/03/17 09:19 Bacid - PEG 1 tab DAILY [facility] Administration Metoprolol Tartrate 5 mg 11/22/17 23:20 12/01/17 09:34 Lopressor Injection - IVPUSH 5 mg Q4H PRN Administration HYPERTENSION Morphine Sulfate 4 mg 12/01/17 12:52 12/02/17 17:36 Morphine Sulfate IVPUSH 4 mg Q2H PRN Administration agonal breathing Prednisone 40 mg 11/23/17 10:00 12/03/17 09:19 Deltasone - PO 40 mg DAILY [facility] Administration Quetiapine Fumarate 25 mg 11/23/17 22:00 12/02/17 21:03 Seroquel - PO 25 mg HS [facility] Administration Ranitidine HCl 150 mg 11/23/17 10:00 12/03/17 09:19 Zantac - PO 150 mg DAILY [facility] Administration Roflumilast 500 mcg 11/23/17 10:00 12/03/17 09:20 Daliresp - NGT 500 mcg DAILY [facility] Administration Saliva Substitute 1 applic 11/23/17 10:00 12/03/17 09:22 Mouthkote Solution - MM 1 applic DAILY [facility] Administration Impression 1. MIRLANDE 2. hypernatremia 3. chronic resp failure s/p trache 4. s/p trache 5. s/p peg 6. sepsis 7. interstitial lung disease 8. chf diastolic 9. DM 10. lactic acidosis 11. PNA Plan - vent support - cont feeds as tolerated - monitor sodium - prognosis is poor - discussed with medical team Dr Gan
[2017-12-03 20:09] LABS: ANION GAP 3 (8-16); BLOOD UREA NITROGEN 51 mg/dL (7-18); CALCIUM 7.5 mg/dL (8.5-10.1); CHLORIDE 102 mmol/L (98-107); CO2 40 mmol/L (21-32); CREATININE 0.9 mg/dL (0.7-1.3); POTASSIUM 4.5 mmol/L (3.5-5.1); SODIUM 145 mmol/L (136-145)
[2017-12-03 20:12] LABS: GLUCOSE,RANDOM 441 mg/dL (74-106)
[2017-12-03] MEDS ORDERED: INSULIN DETEMIR 100 UNITS/ML MDV SQ SCH (22:00)
[2017-12-03] MEDS: MINERAL OIL/PETROLATUM,WHITE 3.5 GM TUBE OU SCH (22:18)
[2017-12-03] MEDS: CHLORHEXIDINE GLUCONATE 4% CLEANSER FOR DECOLONIZATION TP SCH (22:18)
[2017-12-03] MEDS: QUEtiapine FUMARATE 25 MG TABLET (FP) PO SCH (22:19)
[2017-12-04] MEDS ORDERED: PT OWN MED DRAWER 7, Y5N ONE ×4 (00:57→13:47)
[2017-12-04] MEDS: PIPERACILLIN/TAZOB 3.375 GM 3.375 GM in DEXTROSE 5%-WATER - 50 ML IVPB SCH ×3 (01:01→17:43)
[2017-12-04] MEDS: BANATROL PLUS POWDER PACKET PEG SCH ×3 (06:31→21:23)
[2017-12-04] MEDS: INSULIN SLIDING SCALE (NOVOLOG) 1 VIAL SQ SCH ×4 (06:31→21:37)
[2017-12-04 06:49] LABS: ALBUMIN 1.6 g/dl (3.4-5.0); ANION GAP 1 (8-16); BLOOD UREA NITROGEN 41 mg/dL (7-18); CHLORIDE 102 mmol/L (98-107); CO2 45 mmol/L (21-32); POTASSIUM 4.3 mmol/L (3.5-5.1); SGOT/AST 106 U/L (15-37); SODIUM 148 mmol/L (136-145)
[2017-12-04 06:52] LABS: ALK PHOS 175 U/L (45-117); BILIRUBIN,TOTAL 0.4 mg/dL (0.2-1.0); CREATININE 0.8 mg/dL (0.7-1.3); HEMATOCRIT 22.6 % (35.4-49); HEMOGLOBIN 7.1 GM/dL (11.7-16.9); MCH 32.1 pg (25.7-33.7); MCHC 31.6 g/dl (32.0-35.9); MEAN CELL VOLUME 101.7 fl (80-96); MEAN PLT VOLUME 12.7 fl (7.5-11.1); PLATELET COUNT 73 K/MM3 (134-434); RBC 2.23 M/mm3 (4.00-5.60); RDW 16.5 % (11.9-15.9); TOT PROT 7.1 g/dl (6.4-8.2); WHITE BLOOD COUNT 9.7 K/mm3 (4.0-10.0)
[2017-12-04 06:55] LABS: GLUCOSE,RANDOM 336 mg/dL (74-106); SGPT/ALT 572 U/L (12-78)
--- NOTE | 2017-12-04 06:57 | PN ---
Progress Note, Physician History of Present Illness: 24 hour events: Patient now A/O, makes eye contact and tracks. Not agitated, 1 BM this AM, tolerating 90% FiO2 with sats around 98%. Family spoken with at length over the weekend and patient is full code. Hyperglycemia worse with BG > 300. Subjective: Patient denies complaints 24 HR I/O: I: 3318cc O: 1520cc Net: 1798cc BM: Yes - Current Medication List Current Medications: Active Medications Acetaminophen (Tylenol -) 650 mg PO Q6H PRN PRN Reason: FEVER Last Admin: 12/01/17 10:16 Dose: 650 mg Acetaminophen (Ofirmev Injection -) 1,000 mg IVPB Q6H PRN PRN Reason: FEVER Last Admin: 11/26/17 17:31 Dose: 1,000 mg Albuterol/Ipratropium (Duoneb -) 1 amp NEB RQID [facility] Last Admin: 12/03/17 20:50 Dose: 1 amp Apixaban (Eliquis -) 5 mg PO BID [facility] Last Admin: 12/03/17 22:18 Dose: 5 mg Artificial Tears (Artificial Tears Ointment -) 1 applic OU HS [facility] Last Admin: 12/03/17 22:18 Dose: 1 applic Calcium Acetate (Phoslo -) 667 mg PO TIDCM [facility] Last Admin: 12/03/17 17:30 Dose: 667 mg Chlorhexidine Gluconate (Hibiclens For Decolonization -) 1 applic TP HS [facility] Last Admin: 12/03/17 22:18 Dose: 1 applic Ferrous Sulfate (Feosol) 300 mg GT DAILY [facility] Last Admin: 12/03/17 09:18 Dose: 300 mg Piperacillin Sod/Tazobactam (Sod 3.375 gm/ Dextrose) 50 mls @ 100 mls/hr IVPB Q8H-IV [facility] PRN Reason: Protocol Last Admin: 12/04/17 01:01 Dose: 100 mls/hr Phenylephrine HCl 20,000 mcg/ (Sodium Chloride) 250 mls @ 75 mls/hr IVPB ASDIR [facility]; 100 MCG/MIN PRN Reason: Protocol Last Admin: 12/03/17 14:55 Dose: Not Given Insulin Aspart (Novolog Vial Sliding Scale -) 1 vial SQ ACHS [facility] PRN Reason: Protocol Last Admin: 12/04/17 06:31 Dose: 6 units Insulin Detemir (Levemir Vial) 5 units SQ HS [facility] Last Admin: 12/03/17 22:18 Dose: 5 units Lactobacillus Acidophilus (Bacid -) 1 tab PEG DAILY [facility] Last Admin: 12/03/17 09:19 Dose: 1 tab Metoprolol Tartrate (Lopressor Injection -) 5 mg IVPUSH Q4H PRN PRN Reason: HYPERTENSION Last Admin: 12/01/17 09:34 Dose: 5 mg Morphine Sulfate (Morphine Sulfate) 4 mg IVPUSH Q2H PRN PRN Reason: agonal breathing Last Admin: 12/02/17 17:36 Dose: 4 mg Prednisone (Deltasone -) 40 mg PO DAILY [facility] Last Admin: 12/03/17 09:19 Dose: 40 mg Quetiapine Fumarate (Seroquel -) 25 mg PO HS [facility] Last Admin: 12/03/17 22:19 Dose: 25 mg Ranitidine HCl (Zantac -) 150 mg PO DAILY [facility] Last Admin: 12/03/17 09:19 Dose: 150 mg Roflumilast (Daliresp -) 500 mcg NGT DAILY [facility] Last Admin: 12/03/17 09:20 Dose: 500 mcg Saliva Substitute (Mouthkote Solution -) 1 applic MM DAILY [facility] Last Admin: 12/03/17 09:22 Dose: 1 applic - Objective Vital Signs: Vital Signs Temperature 98.2 F 12/04/17 06:00 Pulse Rate 112 H 12/04/17 06:00 Respiratory Rate 22 12/04/17 06:12 Blood Pressure 140/68 12/04/17 06:00 O2 Sat by Pulse Oximetry (%) 94 L 12/03/17 20:40 Constitutional: Yes: No Distress, Calm, Cachectic Eyes: Yes: Conjunctiva Clear, EOM Intact HENT: Yes: Atraumatic, Normocephalic Neck: Yes: Supple, Trachea Midline Respiratory: Yes: Regular, Other (tracheostomy tube in place, moderate secretions at stoma, suture in place in stoma). No: Cough Gastrointestinal: Yes: Normal Bowel Sounds, Soft Extremities: Yes: Other (diffuse muscle atrophy). No: Cold, Cyanosis Edema: Yes (sacral) Integumentary: Yes: WNL. No: Erythema Wound/Incision: Yes: Clean/Dry, Sutures Intact Neurological: Yes: Alert, Oriented Psychiatric: Yes: Alert, Oriented Labs: INR, PTT INR 1.49 (0.82-1.09) H D 12/01/17 06:15 - ....Imaging Chest X-ray: Report Reviewed, Image Reviewed, Other (no interval change) Assessment/Plan 62 YOM with h/o NIDDM, PUD, BPH, long-time smoker, presented initially with hypoxic respiratory failure while eating food, found large DVT to RLE, now s/p IVC filter placed (10/20/17) and thrombectomy (10.24.17), tracheostomy, on ventilator, now off of pressers, but continues to require 90-100% FiO2. Neuro: #Nicotine Dependence: -Nicotine patch 7 MG daily #Anxiety -0.5 Xanax q8h for management of anxiety #Agitation -Continue Seroquel 25mg for management of agitation -Alida Palmer (ordered) CV: #Shock, septic vs. cardiogenic vs. iatrogenic, resolved. Source unclear. Off pressors. -NTD #DVT: U/S positive for right calf DVT, s/p thrombectomy -S/P IR direct infusion, doing well -Continue Eliquis #Chest Pain, none in >3 days. EKG without ischemic changes. -Monitor for recurrence of chest pain Pulm: #Acute Hypoxic Respiratory Failure, improved. Initially thought ARDS vs. CHF given JVD and crackles treated for CAP. ECHO showing mild MR, mild/mod TR, mild pHTN. CT with diffuse interstitial lung disease, serial CXR with e/o congestion /volume overload. Patient was transferred back to the ICU for inability to maintain tidal volumes. Tidal volumes continue to be maintained with new trach tube. -Continue Prednisone 40 daily -Continue scheduled duonebs -Continue daliresp -Hold Lasix for now as patient appears euvolemic -Continue weaning FiO2 with goal <60% which should be met prior to d/c to SNF ID: Likely ILD with GGO vs. infectious pattern. HIV, influenza, strep, legionella neg. BCx NGTD, sputum Cx neg. Completed Azithromycin and Ceftriaxone for suspected CAP. Concern for right lower lobe pneumonia. Urine cultures growing yeast. Sputum culture growing lactose fermenting negative bacilli. -Today is Zosyn day 4. -Continue to monitor. -ID recs appreciated #Leukocytosis -Continue to monitor CBCD -CXR daily -If patient spikes a fever will need repeat cultures Renal: - CTM - Avoid nephrotoxic medications Heme: #Macrocytic Anemia, persistent. Ferritin 882 (likely reactive) -Hb stable around 8-9. Endo #NIDDM. BG >300 for the past 2-3 days. One episode of hypoglycemia several days ago. -Will continue to monitor BGM and provide D50 pushes as needed. -Increased to 10 mg Levemir HS -ISS : #BPH -Continue tamsulosin 0.4mg daily GI: #Peptic Ulcer Disease: History of mesh according to family and had Endoscopy two months. Was given medications according to patients daughter and completed course. -Continue PPI -Reduced banana flakes to one pack TID per dietitian #Cachexia, chronic. -Continue PEG tube feeds -Prosource BID FEN -Electrolytes repleted as needed. -Continue PEG tube feeds. PPX: -Continue Eliquis -Continue ranitidine -PT Lines/Drains/Tubes Feeding tube Tracheostomy tube PIV Disposition: Further ICU care
--- NOTE | 2017-12-04 07:34 | PN ---
Progress Note, Physician Chief Complaint: ID Day 5 Zosyn - Current Medication List Current Medications: Active Medications Acetaminophen (Tylenol -) 650 mg PO Q6H PRN PRN Reason: FEVER Last Admin: 12/01/17 10:16 Dose: 650 mg Acetaminophen (Ofirmev Injection -) 1,000 mg IVPB Q6H PRN PRN Reason: FEVER Last Admin: 11/26/17 17:31 Dose: 1,000 mg Albuterol/Ipratropium (Duoneb -) 1 amp NEB RQID [facility] Last Admin: 12/03/17 20:50 Dose: 1 amp Apixaban (Eliquis -) 5 mg PO BID [facility] Last Admin: 12/03/17 22:18 Dose: 5 mg Artificial Tears (Artificial Tears Ointment -) 1 applic OU HS [facility] Last Admin: 12/03/17 22:18 Dose: 1 applic Calcium Acetate (Phoslo -) 667 mg PO TIDCM [facility] Last Admin: 12/03/17 17:30 Dose: 667 mg Chlorhexidine Gluconate (Hibiclens For Decolonization -) 1 applic TP HS [facility] Last Admin: 12/03/17 22:18 Dose: 1 applic Ferrous Sulfate (Feosol) 300 mg GT DAILY [facility] Last Admin: 12/03/17 09:18 Dose: 300 mg Piperacillin Sod/Tazobactam (Sod 3.375 gm/ Dextrose) 50 mls @ 100 mls/hr IVPB Q8H-IV [facility] PRN Reason: Protocol Last Admin: 12/04/17 01:01 Dose: 100 mls/hr Phenylephrine HCl 20,000 mcg/ (Sodium Chloride) 250 mls @ 75 mls/hr IVPB ASDIR [facility]ON[facility]; 100 MCG/MIN PRN Reason: Protocol Last Admin: 12/03/17 14:55 Dose: Not Given Insulin Aspart (Novolog Vial Sliding Scale -) 1 vial SQ ACHS [facility] PRN Reason: Protocol Last Admin: 12/04/17 06:31 Dose: 6 units Insulin Detemir (Levemir Vial) 5 units SQ HS [facility] Last Admin: 12/03/17 22:18 Dose: 5 units Lactobacillus Acidophilus (Bacid -) 1 tab PEG DAILY [facility] Last Admin: 12/03/17 09:19 Dose: 1 tab Metoprolol Tartrate (Lopressor Injection -) 5 mg IVPUSH Q4H PRN PRN Reason: HYPERTENSION Last Admin: 12/01/17 09:34 Dose: 5 mg Morphine Sulfate (Morphine Sulfate) 4 mg IVPUSH Q2H PRN PRN Reason: agonal breathing Last Admin: 12/02/17 17:36 Dose: 4 mg Prednisone (Deltasone -) 40 mg PO DAILY [facility] Last Admin: 12/03/17 09:19 Dose: 40 mg Quetiapine Fumarate (Seroquel -) 25 mg PO HS [facility] Last Admin: 12/03/17 22:19 Dose: 25 mg Ranitidine HCl (Zantac -) 150 mg PO DAILY [facility] Last Admin: 12/03/17 09:19 Dose: 150 mg Roflumilast (Daliresp -) 500 mcg NGT DAILY [facility] Last Admin: 12/03/17 09:20 Dose: 500 mcg Saliva Substitute (Mouthkote Solution -) 1 applic MM DAILY [facility] Last Admin: 12/03/17 09:22 Dose: 1 applic - Objective Vital Signs: Vital Signs Temperature 98.2 F 12/04/17 06:00 Pulse Rate 112 H 12/04/17 06:00 Respiratory Rate 22 12/04/17 06:12 Blood Pressure 140/68 12/04/17 06:00 O2 Sat by Pulse Oximetry (%) 98 12/04/17 06:58 Constitutional: Yes: Mild Distress Neck: Yes: Other (Trach) Cardiovascular: Yes: S1, S2 Respiratory: Yes: WNL, Regular, CTA Bilaterally Labs: CBC, BMP 12/04/17 05:30 INR, PTT INR 1.49 (0.82-1.09) H D 12/01/17 06:15 Problem List - Problems (1) Interstitial lung disease Code(s): J84.9 - INTERSTITIAL PULMONARY DISEASE, UNSPECIFIED (2) Acute respiratory failure with hypoxia Code(s): J96.01 - ACUTE RESPIRATORY FAILURE WITH HYPOXIA (3) Pneumonia Code(s): J18.9 - PNEUMONIA, UNSPECIFIED ORGANISM (4) Deep vein thrombosis Code(s): I82.409 - ACUTE EMBOLISM AND THOMBOS UNSP DEEP VN UNSP LOWER EXTREMITY Assessment/Plan Microbiology 12/02/17 20:00 Urine For Antigen Detection Legionella Antigen - Final 12/02/17 20:00 Urine For Antigen Detection Streptococcus pneumoniae Antigen (M - Final 12/01/17 10:00 Urine - Urine Clean Catch Urine Culture - Preliminary Lactose Fermenting Neg Bacilli 12/01/17 08:06 Blood - Peripheral Venous Blood Culture - Preliminary NO GROWTH OBTAINED AFTER 48 HOURS, INCUBATION TO CONTINUE FOR 3 DAYS. Laboratory Tests 12/03/17 12/04/17 12/04/17 05:40 05:30 05:30 WBC 8.0 Pending Hgb 7.5 L Pending Hct 24.3 L Pending Plt Count 81 L Pending BUN 41 H Creatinine 0.8 AST 106 H D ALT 572 H D Alkaline Phosphatase 175 H D Assessment Interstitial lung disease Treatment for HAP with Gram neg tania Respirator failure Plan Continue Zosyn pending final culture In any case may be nearing completion of therapy Umer IVY
[2017-12-04] MEDS: ALBUTEROL SO4 2.5/IPRATROPIUM 0.5 INH SOL 3 ML VIAL.NEB. NEB SCH ×4 (07:37→20:48)
[2017-12-04] MEDS: CALCIUM ACETATE 667 MG CAPSULE (FP) PO SCH ×3 (08:35→17:17)
[2017-12-04] MEDS: predniSONE 20 MG TABLET (UD) PO SCH (10:05)
[2017-12-04] MEDS: LYTES/YERBA SANTA 240 ML BOTTLE MM SCH (10:05)
[2017-12-04] MEDS: LACTOBACILLUS ACIDOPHILUS 1 EACH TAB (FP) PEG SCH (10:05)
[2017-12-04] MEDS: RANITIDINE HCL 150 MG TABLET (FP) PO SCH (10:05)
[2017-12-04] MEDS: APIXABAN 5 MG TABLET PO SCH ×2 (10:06→21:23)
[2017-12-04] MEDS: FERROUS SO4 300 MG/5 ML ORAL SOLN UNIT DOSE CUPS GT SCH (10:06)
[2017-12-04] MEDS: ROFLUMILAST 500 MCG TABLET NGT SCH (11:00)
--- NOTE | 2017-12-04 12:18 | PN ---
Teaching Attending Note Name of Resident: Nolvia Maharaj ATTENDING PHYSICIAN STATEMENT I saw and evaluated the patient. I reviewed the resident's note and discussed the case with the resident. I agree with the resident's findings and plan as documented. SUBJECTIVE: Pt seen and examined in the ICU. Remains vented on volume assist control with 90 % FiO2, PEEP 8. OBJECTIVE: Last Vital Signs Temp Pulse Resp BP Pulse Ox 98.5 F 115 H 28 H 152/67 96 12/04/17 10:00 12/04/17 10:00 12/04/17 11:30 12/04/17 10:00 12/04/17 11:51 Intake & Output 12/01/17 12/02/17 12/03/17 12/04/17 23:59 23:59 23:59 23:59 Intake Total 3143.2 47.2 3318 1140 Output Total 400 2400 1520 Balance 2743.2 -2352.8 1798 1140 Weight 35.494 kg 37.308 kg 37.739 kg 36.151 kg Gen: vented, awake, tachypneic Heart: tachycardic, regular Lung: scattered rhonchi Abd: soft, nontender Ext: no edema CBC, BMP 12/04/17 05:30 12/04/17 05:30 Active Medications Acetaminophen (Tylenol -) 650 mg PO Q6H PRN PRN Reason: FEVER Last Admin: 12/01/17 10:16 Dose: 650 mg Acetaminophen (Ofirmev Injection -) 1,000 mg IVPB Q6H PRN PRN Reason: FEVER Last Admin: 11/26/17 17:31 Dose: 1,000 mg Albuterol/Ipratropium (Duoneb -) 1 amp NEB RQID [facility] Last Admin: 12/04/17 11:10 Dose: 1 amp Amino Acids (Prosource No Carb Liquid Pkt) 30 ml PO BID@0800,1730 [facility] Apixaban (Eliquis -) 5 mg PO BID [facility] Last Admin: 12/04/17 10:06 Dose: 5 mg Artificial Tears (Artificial Tears Ointment -) 1 applic OU HS [facility] Last Admin: 12/03/17 22:18 Dose: 1 applic Calcium Acetate (Phoslo -) 667 mg PO TIDCM [facility] Last Admin: 12/04/17 11:47 Dose: 667 mg Chlorhexidine Gluconate (Hibiclens For Decolonization -) 1 applic TP HS [facility] Last Admin: 12/03/17 22:18 Dose: 1 applic Ferrous Sulfate (Feosol) 300 mg GT DAILY [facility] Last Admin: 12/04/17 10:06 Dose: 300 mg Piperacillin Sod/Tazobactam (Sod 3.375 gm/ Dextrose) 50 mls @ 100 mls/hr IVPB Q8H-IV [facility] PRN Reason: Protocol Last Admin: 12/04/17 10:06 Dose: 100 mls/hr Phenylephrine HCl 20,000 mcg/ (Sodium Chloride) 250 mls @ 75 mls/hr IVPB ASDIR [facility]ONAL; 100 MCG/MIN PRN Reason: Protocol Last Admin: 12/03/17 14:55 Dose: Not Given Insulin Aspart (Novolog Vial Sliding Scale -) 1 vial SQ ACHS [facility] PRN Reason: Protocol Last Admin: 12/04/17 11:41 Dose: 8 units Insulin Detemir (Levemir Vial) 10 units SQ [facility] Lactobacillus Acidophilus (Bacid -) 1 tab PEG DAILY [facility] Last Admin: 12/04/17 10:05 Dose: 1 tab Metoprolol Tartrate (Lopressor Injection -) 5 mg IVPUSH Q4H PRN PRN Reason: HYPERTENSION Last Admin: 12/01/17 09:34 Dose: 5 mg Morphine Sulfate (Morphine Sulfate) 4 mg IVPUSH Q2H PRN PRN Reason: agonal breathing Last Admin: 12/02/17 17:36 Dose: 4 mg Prednisone (Deltasone -) 40 mg PO DAILY [facility] Last Admin: 12/04/17 10:05 Dose: 40 mg Quetiapine Fumarate (Seroquel -) 25 mg PO [facility] Last Admin: 12/03/17 22:19 Dose: 25 mg Ranitidine HCl (Zantac -) 150 mg PO DAILY [facility] Last Admin: 12/04/17 10:05 Dose: 150 mg Roflumilast (Daliresp -) 500 mcg NGT DAILY [facility] Last Admin: 12/04/17 11:00 Dose: 500 mcg Saliva Substitute (Mouthkote Solution -) 1 applic MM DAILY [facility] Last Admin: 12/04/17 10:05 Dose: 1 applic ASSESSMENT AND PLAN: Acute Hypoxic Respiratory Failure s/p Tracheostomy Pneumonia treated Sepsis Interstitial Lung Disease Acute Diastolic Heart Failure improved Acute Kidney Injury Lactic Acidosis resolved DM Anemia RLE DVT - antibiotics per ID - monitor urine output, creatinine - continue prednisone - anxiolytics, seroquel qHS - enteral feeds - increase levemir - continue anticoagulation, monitor H/H - swallow eval for possible PO intake when respiratory status more stable - taper FiO2 to keep SpO2 >90% - spontaneous breathing trials as tolerated - bedside PT - DVT/GI prophylaxis - continue discussions regarding goals of care as pt with clinical deterioration and limited options - continue ICU monitoring for now critical care time spent in reviewing chart, evaluating patient and formulating plan 35 min Problem List - Problems (1) Acute respiratory failure with hypoxia Code(s): J96.01 - ACUTE RESPIRATORY FAILURE WITH HYPOXIA (2) Pneumonia Code(s): J18.9 - PNEUMONIA, UNSPECIFIED ORGANISM (3) Diabetes Code(s): E11.9 - TYPE 2 DIABETES MELLITUS WITHOUT COMPLICATIONS
[2017-12-04] MEDS: PHENYLEPHRINE HCL 20,000 MCG in SODIUM CHLORIDE 248 ML IVPB SCH (13:52)
--- NOTE | 2017-12-04 15:12 | PN ---
Teaching Attending Note Name of Resident: Agustin Hess ATTENDING PHYSICIAN STATEMENT Time of evaluation: 8:45 AM I saw and evaluated the patient. I reviewed the resident's note and discussed the case with the resident. I agree with the resident's findings and plan as documented. SUBJECTIVE: Patient seen and examined. Awake, no new complaints, Responsive. OBJECTIVE: Vital Signs Period Temp Pulse Resp BP Sys/Sutton Pulse Ox Last 24 Hr 97.9 F-98.5 F 110-116 20-29 128-156/62-72 94-98 Intake & Output 12/01/17 12/02/17 12/03/17 12/04/17 23:59 23:59 23:59 23:59 Intake Total 3143.2 47.2 3318 1140 Output Total 400 2400 1520 Balance 2743.2 -2352.8 1798 1140 Weight 78 lb 4 oz 82 lb 4 oz 83 lb 3.2 oz 79 lb 11.2 oz general: sitting in bed, awake, no acute distress Chest: fine basilar to midlung rales Abdomen: soft, scaphoid, PEG in place Extremities:no edema Home Medication List Medication Instructions Recorded Confirmed Type Glipizide [Glucotrol Xl] 0 mg PO ASDIR 10/17/17 10/17/17 History Metformin HCl 0 mg PO ASDIR 10/17/17 10/17/17 History Tamsulosin HCl 0.4 mg PO DAILY 10/17/17 10/17/17 History Active Medications Generic Name Dose Route Start Last Admin Trade Name Freq PRN Reason Stop Dose Admin Acetaminophen 650 mg 11/22/17 23:20 12/01/17 10:16 Tylenol - PO 650 mg Q6H PRN Administration FEVER Acetaminophen 1,000 mg 11/22/17 23:20 11/26/17 17:31 Ofirmev Injection - IVPB 1,000 mg Q6H PRN Administration FEVER Albuterol/Ipratropium 1 amp 11/23/17 08:00 12/04/17 11:10 Duoneb - NEB 1 amp RQID [facility] Administration Amino Acids 30 ml 12/04/17 17:30 Prosource No Carb Liquid Pkt PO BID@0800,1730 [facility] Apixaban 5 mg 11/23/17 10:00 12/04/17 10:06 Eliquis - PO 5 mg BID [facility] Administration Artificial Tears 1 applic 11/23/17 22:00 12/03/17 22:18 Artificial Tears Ointment - OU 1 applic HS [facility] Administration Calcium Acetate 667 mg 12/02/17 12:00 12/04/17 11:47 Phoslo - PO 667 mg TIDCM [facility] Administration Chlorhexidine Gluconate 1 applic 11/22/17 22:00 12/03/17 22:18 Hibiclens For Decolonization - TP 1 applic HS [facility] Administration Ferrous Sulfate 300 mg 11/23/17 10:00 12/04/17 10:06 Feosol GT 300 mg DAILY [facility] Administration Piperacillin Sod/Tazobactam 50 mls @ 100 mls/hr 12/01/17 14:00 12/04/17 10:06 Sod 3.375 gm/ Dextrose IVPB 100 mls/hr Q8H-IV [facility] Administration Protocol Phenylephrine HCl 20,000 mcg/ 250 mls @ 75 mls/hr 12/01/17 14:30 12/04/17 13: 52 Sodium Chloride IVPB Not Given ASDIR [facility] Protocol 100 MCG/MIN Insulin Aspart 1 vial 11/23/17 07:00 12/04/17 11:41 Novolog Vial Sliding Scale - SQ 8 units ACHS [facility] Administration Protocol Insulin Detemir 10 units 12/04/17 22:00 Levemir Vial SQ HS [facility] Lactobacillus Acidophilus 1 tab 11/23/17 10:00 12/04/17 10:05 Bacid - PEG 1 tab DAILY [facility] Administration Metoprolol Tartrate 5 mg 11/22/17 23:20 12/01/17 09:34 Lopressor Injection - IVPUSH 5 mg Q4H PRN Administration HYPERTENSION Prednisone 40 mg 11/23/17 10:00 12/04/17 10:05 Deltasone - PO 40 mg DAILY [facility] Administration Quetiapine Fumarate 25 mg 11/23/17 22:00 12/03/17 22:19 Seroquel - PO 25 mg HS [facility] Administration Ranitidine HCl 150 mg 11/23/17 10:00 12/04/17 10:05 Zantac - PO 150 mg DAILY [facility] Administration Roflumilast 500 mcg 11/23/17 10:00 12/04/17 11:00 Daliresp - NGT 500 mcg DAILY [facility] Administration Saliva Substitute 1 applic 11/23/17 10:00 12/04/17 10:05 Mouthkote Solution - MM 1 applic DAILY [facility] Administration Laboratory Results - last 24 hr 12/03/17 12/03/17 12/03/17 11:51 18:20 18:30 WBC RBC Hgb Hct MCV MCH MCHC RDW Plt Count MPV Sodium 145 Potassium 4.5 Chloride 102 Carbon Dioxide 40 H Anion Gap 3 L BUN 51 H Creatinine 0.9 Creat Clearance w eGFR POC Glucometer > 400 > 400 Random Glucose 441 H* D Calcium 7.5 L Total Bilirubin AST ALT Alkaline Phosphatase Total Protein Albumin 12/03/17 12/04/17 12/04/17 22:02 05:30 05:30 WBC 9.7 RBC 2.23 L Hgb 7.1 L Hct 22.6 L MCV 101.7 H MCH 32.1 MCHC 31.6 L RDW 16.5 H Plt Count 73 L MPV 12.7 H Sodium 148 H Potassium 4.3 Chloride 102 Carbon Dioxide 45 H Anion Gap 1 L BUN 41 H Creatinine 0.8 Creat Clearance w eGFR > 60 POC Glucometer [phone] Random Glucose 336 H* D Calcium 8.0 L Total Bilirubin 0.4 AST 106 H D ALT 572 H D Alkaline Phosphatase 175 H D Total Protein 7.1 Albumin 1.6 L 12/04/17 12/04/17 06:21 11:36 WBC RBC Hgb Hct MCV MCH MCHC RDW Plt Count MPV Sodium Potassium Chloride Carbon Dioxide Anion Gap BUN Creatinine Creat Clearance w eGFR POC Glucometer [id number] 361.69342 Random Glucose Calcium Total Bilirubin AST ALT Alkaline Phosphatase Total Protein Albumin Microbiology 12/02/17 20:00 Sputum - Endotrachea Suction/Ventilator Gram Stain - Final 12/02/17 20:00 Sputum - Endotrachea Suction/Ventilator Sputum Culture - Preliminary Non Lactose Fermenting Gnb 12/01/17 10:00 Urine - Urine Clean Catch Urine Culture - Final Klebsiella Pneumoniae 12/02/17 20:11 Sputum - Endotrachea Suction/Ventilator YANCI Preparation - Preliminary 12/02/17 20:11 Sputum - Endotrachea Suction/Ventilator Fungal Culture - Preliminary 12/01/17 08:50 Blood - Peripheral Venous Blood Culture - Preliminary NO GROWTH OBTAINED AFTER 72 HOURS, INCUBATION TO CONTINUE FOR 2 DAYS. 12/01/17 08:06 Blood - Peripheral Venous Blood Culture - Preliminary NO GROWTH OBTAINED AFTER 72 HOURS, INCUBATION TO CONTINUE FOR 2 DAYS. 12/02/17 20:00 Urine For Antigen Detection Legionella Antigen - Final 12/02/17 20:00 Urine For Antigen Detection Streptococcus pneumoniae Antigen (M - Final 11/18/17 21:30 Stool Clostridium difficile Antigen ([facility]) - Final 11/18/17 21:30 Stool Clostridium difficile Toxin Assay - Final 11/13/17 17:30 Blood - Peripheral Venous Blood Culture - Final NO GROWTH AFTER 5 DAYS INCUBATION 11/13/17 17:10 Blood - Peripheral Venous Blood Culture - Final NO GROWTH AFTER 5 DAYS INCUBATION 11/14/17 14:30 Sputum - Endotrachea Suction/Ventilator Gram Stain - Final 11/14/17 14:30 Sputum - Endotrachea Suction/Ventilator Sputum Culture - Final Klebsiella Pneumoniae 11/14/17 22:00 Urine - Urine Clean Catch Urine Culture - Final Yeast Like Organism 11/15/17 11:00 Nasopharyngeal Swab Influenza Types A,B Antigen ([facility]) - Final 11/15/17 11:00 Nasopharyngeal Swab - Final 10/21/17 06:00 Serum Cryptococcal Antigen - Final 10/19/17 19:30 Sputum - Expectorated Gram Stain - Final 10/19/17 19:30 Sputum - Expectorated Sputum Culture - Final NORMAL RESPIRATORY TOYIN 10/17/17 10:10 Blood - Peripheral Venous Blood Culture - Final NO GROWTH AFTER 5 DAYS INCUBATION 10/17/17 10:10 Blood - Peripheral Venous Blood Culture - Final NO GROWTH AFTER 5 DAYS INCUBATION 10/17/17 13:57 Urine - Urine Clean Catch Urine Culture - Final NO GROWTH OBTAINED 10/17/17 13:57 Urine For Antigen Detection Legionella Antigen - Final 10/17/17 13:57 Urine For Antigen Detection Streptococcus pneumoniae Antigen (M - Final 10/17/17 10:25 Nasopharyngeal Swab Influenza Types A,B Antigen ([facility]) - Final 10/17/17 10:25 Nasopharyngeal Swab - Final ASSESSMENT AND PLAN: 62 yo M active smoker, pMHx of NIDDM, PUD, BPH admitted with acute hypoxic respiratory failure, and extensive RLE DVT -Acute hypoxic respiratory respiratory failure, worsening suspect RLL consolidation/Aspiration +/- ARDS,suspect HCAP -Septic shock, recurrent likely from above with multiorgan involvement, with MIRLANDE , likely shock liver, hyperkalemia -Elevated LFTs, ?Shock liver -Hyperkalemia -Extensive RLE Acute DVT, s/p IVC filter 10/20, thrombectomy 10/24 -Chronic diastolic heart failure -Hypernatremia, likely hypovolumic -Thrombocytopenia -Elevated INR -Chest wall and right sided abdominal pain -NIDDM -PUD -BPH -Cachexia/malnutrition -Unwitnessed fall 11/19/2017 -Chest pain on 12/02, with non specific Anterolateral changes Plan: recurrent septic shock with hypoxia/RLL consolidation+/- ARDS last week. Zosyn day 4, blood/sputum cultures/urine cultures noted. Off fentanyl/Phenylephrine drips. trend LFTs, renal function. MIRLANDE resolved. Improving again, ID input noted. FiO2 weaned to 90%, and off pressors now. Monitor K levels. Prednisone for ILD per ICU. increase levemir to 10 units hs and titrate as needed, ISS. Prognosis grave, continue to address goals of care with family. Total critical care time in ICU 35 min.
--- NOTE | 2017-12-04 15:59 | PN ---
Physical Exam: SUBJECTIVE: Patient seen and examined at bedside. Awake and responsive. No new complaints. OBJECTIVE: Vital Signs Period Temp Pulse Resp BP Sys/Sutton Pulse Ox Last 24 Hr 97.9 F-98.5 F 109-116 20-29 128-156/62-72 94-98 GENERAL:Awake and alert in no acute distress. cachectic. Trached and vented. NECK: Tracheostomy in place and secure. LUNGS: bilateral fine rales. mechanical breath sounds. HEART: tachycardic ABDOMEN: Soft, scaphoid with peg in place. EXTREMITIES:no edema. Laboratory Results - last 24 hr 12/03/17 12/03/17 12/03/17 11:51 18:20 18:30 WBC RBC Hgb Hct MCV MCH MCHC RDW Plt Count MPV Sodium 145 Potassium 4.5 Chloride 102 Carbon Dioxide 40 H Anion Gap 3 L BUN 51 H Creatinine 0.9 Creat Clearance w eGFR POC Glucometer > 400 > 400 Random Glucose 441 H* D Calcium 7.5 L Total Bilirubin AST ALT Alkaline Phosphatase Total Protein Albumin 12/03/17 12/04/17 12/04/17 22:02 05:30 05:30 WBC 9.7 RBC 2.23 L Hgb 7.1 L Hct 22.6 L MCV 101.7 H MCH 32.1 MCHC 31.6 L RDW 16.5 H Plt Count 73 L MPV 12.7 H Sodium 148 H Potassium 4.3 Chloride 102 Carbon Dioxide 45 H Anion Gap 1 L BUN 41 H Creatinine 0.8 Creat Clearance w eGFR > 60 POC Glucometer [phone] Random Glucose 336 H* D Calcium 8.0 L Total Bilirubin 0.4 AST 106 H D ALT 572 H D Alkaline Phosphatase 175 H D Total Protein 7.1 Albumin 1.6 L 12/04/17 12/04/17 06:21 11:36 WBC RBC Hgb Hct MCV MCH MCHC RDW Plt Count MPV Sodium Potassium Chloride Carbon Dioxide Anion Gap BUN Creatinine Creat Clearance w eGFR POC Glucometer [phone] Random Glucose Calcium Total Bilirubin AST ALT Alkaline Phosphatase Total Protein Albumin Active Medications Generic Name Dose Route Start Last Admin Trade Name Freq PRN Reason Stop Dose Admin Acetaminophen 650 mg 11/22/17 23:20 12/01/17 10:16 Tylenol - PO 650 mg Q6H PRN Administration FEVER Acetaminophen 1,000 mg 11/22/17 23:20 11/26/17 17:31 Ofirmev Injection - IVPB 1,000 mg Q6H PRN Administration FEVER Albuterol/Ipratropium 1 amp 11/23/17 08:00 12/04/17 11:10 Duoneb - NEB 1 amp RQID [facility] Administration Amino Acids 30 ml 12/04/17 17:30 Prosource No Carb Liquid Pkt PO BID@0800,1730 [facility] Apixaban 5 mg 11/23/17 10:00 12/04/17 10:06 Eliquis - PO 5 mg BID [facility] Administration Artificial Tears 1 applic 11/23/17 22:00 12/03/17 22:18 Artificial Tears Ointment - OU 1 applic HS [facility] Administration Calcium Acetate 667 mg 12/02/17 12:00 12/04/17 11:47 Phoslo - PO 667 mg TIDCM [facility] Administration Chlorhexidine Gluconate 1 applic 11/22/17 22:00 12/03/17 22:18 Hibiclens For Decolonization - TP 1 applic HS [facility] Administration Ferrous Sulfate 300 mg 11/23/17 10:00 12/04/17 10:06 Feosol GT 300 mg DAILY [facility] Administration Piperacillin Sod/Tazobactam 50 mls @ 100 mls/hr 12/01/17 14:00 12/04/17 10:06 Sod 3.375 gm/ Dextrose IVPB 100 mls/hr Q8H-IV [facility] Administration Protocol Phenylephrine HCl 20,000 mcg/ 250 mls @ 75 mls/hr 12/01/17 14:30 12/04/17 13: 52 Sodium Chloride IVPB Not Given [facility] Protocol 100 MCG/MIN Insulin Aspart 1 vial 11/23/17 07:00 12/04/17 11:41 Novolog Vial Sliding Scale - SQ 8 units ACHS [facility] Administration Protocol Insulin Detemir 10 units 12/04/17 22:00 Levemir Vial SQ HS [facility] Lactobacillus Acidophilus 1 tab 11/23/17 10:00 12/04/17 10:05 Bacid - PEG 1 tab DAILY [facility] Administration Metoprolol Tartrate 5 mg 11/22/17 23:20 12/01/17 09:34 Lopressor Injection - IVPUSH 5 mg Q4H PRN Administration HYPERTENSION Prednisone 40 mg 11/23/17 10:00 12/04/17 10:05 Deltasone - PO 40 mg DAILY [facility] Administration Quetiapine Fumarate 25 mg 11/23/17 22:00 12/03/17 22:19 Seroquel - PO 25 mg HS [facility] Administration Ranitidine HCl 150 mg 11/23/17 10:00 12/04/17 10:05 Zantac - PO 150 mg DAILY [facility] Administration Roflumilast 500 mcg 11/23/17 10:00 12/04/17 11:00 Daliresp - NGT 500 mcg DAILY [facility] Administration Saliva Substitute 1 applic 11/23/17 10:00 12/04/17 10:05 Mouthkote Solution - MM 1 applic DAILY [facility] Administration ASSESSMENT/PLAN: 62 yo M active smoker, pMHx of NIDDM, PUD, BPH admitted with acute hypoxic respiratory failure, and extensive RLE DVT. Problem List - Problems (1) Acute respiratory failure with hypoxia Assessment/Plan: He has been battling recurrent PNA's most likely 2/2 aspiration. * Continue Zosyn day 4 * FIO2 @90% * off pressors for now. * Off sedation * Prednisone 40mg PO daily (2) Ventilator dependence Assessment/Plan: poor prognosis, will continue to discuss goals of care with family. (3) Type 2 diabetes mellitus Assessment/Plan: * DIABETIC tube feeds. Reduced rate for aspiration precaution. * Increased levamir to 10 units. * ISS ACHS Visit type - Emergency Visit Emergency Visit: Yes ED Registration Date: 10/17/17 Care time: The patient presented to the Emergency Department on the above date and was hospitalized for further evaluation of their emergent condition. - New Patient This patient is new to me today: Yes Date on this admission: 12/04/17 - Critical Care Critical Care patient: Yes Total Critical Care Time (in minutes): 32 Critical Care Statement: The care of this patient involved high complexity decision making to prevent further life threatening deterioration of the patient 's condition and/or to evaluate & treat vital organ system(s) failure or risk of failure.
[2017-12-04] MEDS: AMINO ACIDS/PROTEIN HYDROLYS 30 ML LIQUID.PKT PO SCH (18:00)
--- NOTE | 2017-12-04 19:44 | PN ---
Progress Note, Physician History of Present Illness: Pt seen and examined at bedside. He remains in the ICU on increased oxygen requirements. - Current Medication List Current Medications: Active Medications Acetaminophen (Tylenol -) 650 mg PO Q6H PRN PRN Reason: FEVER Last Admin: 12/01/17 10:16 Dose: 650 mg Acetaminophen (Ofirmev Injection -) 1,000 mg IVPB Q6H PRN PRN Reason: FEVER Last Admin: 11/26/17 17:31 Dose: 1,000 mg Albuterol/Ipratropium (Duoneb -) 1 amp NEB RQID [facility] Last Admin: 12/04/17 16:16 Dose: 1 amp Amino Acids (Prosource No Carb Liquid Pkt) 30 ml PO BID@0800,1730 [facility] Last Admin: 12/04/17 18:00 Dose: 30 ml Apixaban (Eliquis -) 5 mg PO BID [facility] Last Admin: 12/04/17 10:06 Dose: 5 mg Artificial Tears (Artificial Tears Ointment -) 1 applic OU HS [facility] Last Admin: 12/03/17 22:18 Dose: 1 applic Calcium Acetate (Phoslo -) 667 mg PO TIDCM [facility] Last Admin: 12/04/17 17:17 Dose: 667 mg Chlorhexidine Gluconate (Hibiclens For Decolonization -) 1 applic TP HS [facility] Last Admin: 12/03/17 22:18 Dose: 1 applic Ferrous Sulfate (Feosol) 300 mg GT DAILY [facility] Last Admin: 12/04/17 10:06 Dose: 300 mg Piperacillin Sod/Tazobactam (Sod 3.375 gm/ Dextrose) 50 mls @ 100 mls/hr IVPB Q8H-IV [facility] PRN Reason: Protocol Last Admin: 12/04/17 17:43 Dose: 100 mls/hr Phenylephrine HCl 20,000 mcg/ (Sodium Chloride) 250 mls @ 75 mls/hr IVPB [facility]; 100 MCG/MIN PRN Reason: Protocol Last Admin: 12/04/17 13:52 Dose: Not Given Insulin Aspart (Novolog Vial Sliding Scale -) 1 vial SQ ACHS [facility] PRN Reason: Protocol Last Admin: 12/04/17 17:16 Dose: 4 units Insulin Detemir (Levemir Vial) 10 units SQ HS [facility] Lactobacillus Acidophilus (Bacid -) 1 tab PEG DAILY [facility] Last Admin: 12/04/17 10:05 Dose: 1 tab Metoprolol Tartrate (Lopressor Injection -) 5 mg IVPUSH Q4H PRN PRN Reason: HYPERTENSION Last Admin: 12/01/17 09:34 Dose: 5 mg Prednisone (Deltasone -) 40 mg PO DAILY [facility] Last Admin: 12/04/17 10:05 Dose: 40 mg Quetiapine Fumarate (Seroquel -) 25 mg PO HS [facility] Last Admin: 12/03/17 22:19 Dose: 25 mg Ranitidine HCl (Zantac -) 150 mg PO DAILY [facility] Last Admin: 12/04/17 10:05 Dose: 150 mg Roflumilast (Daliresp -) 500 mcg NGT DAILY [facility] Last Admin: 12/04/17 11:00 Dose: 500 mcg Saliva Substitute (Mouthkote Solution -) 1 applic MM DAILY [facility] Last Admin: 12/04/17 10:05 Dose: 1 applic - Objective Vital Signs: Vital Signs Temperature 98.5 F 12/04/17 10:00 Pulse Rate 101 H 12/04/17 18:00 Respiratory Rate 27 H 12/04/17 18:42 Blood Pressure 141/76 12/04/17 18:00 O2 Sat by Pulse Oximetry (%) 96 12/04/17 11:51 Constitutional: Yes: Calm Eyes: Yes: Conjunctiva Clear HENT: Yes: Other (trache) Neck: Yes: Supple Cardiovascular: Yes: S1, S2 Respiratory: Yes: Mechanically Ventilated Gastrointestinal: Yes: Soft, Other (peg) Genitourinary: Yes: WNL Edema: No Neurological: Yes: Oriented Labs: CBC, BMP 12/04/17 05:30 12/04/17 05:30 INR, PTT INR 1.49 (0.82-1.09) H D 12/01/17 06:15 Problem List - Problems (1) Hypernatremia Code(s): E87.0 - HYPEROSMOLALITY AND HYPERNATREMIA (2) MIRLANDE (acute kidney injury) Code(s): N17.9 - ACUTE KIDNEY FAILURE, UNSPECIFIED (3) Acute respiratory failure with hypoxia Code(s): J96.01 - ACUTE RESPIRATORY FAILURE WITH HYPOXIA (4) Diabetes Code(s): E11.9 - TYPE 2 DIABETES MELLITUS WITHOUT COMPLICATIONS (5) Failure to thrive Code(s): HRB8970 - Assessment/Plan Current Medications Generic Name Dose Route Start Last Admin Trade Name Freq PRN Reason Stop Dose Admin Acetaminophen 650 mg 11/22/17 23:20 12/01/17 10:16 Tylenol - PO 650 mg Q6H PRN Administration FEVER Acetaminophen 1,000 mg 11/22/17 23:20 11/26/17 17:31 Ofirmev Injection - IVPB 1,000 mg Q6H PRN Administration FEVER Albuterol/Ipratropium 1 amp 11/23/17 08:00 12/04/17 16:16 Duoneb - NEB 1 amp RQID [facility] Administration Amino Acids 30 ml 12/04/17 17:30 12/04/17 18:00 Prosource No Carb Liquid Pkt PO 30 ml BID@0800,1730 [facility] Administration Apixaban 5 mg 11/23/17 10:00 12/04/17 10:06 Eliquis - PO 5 mg BID [facility] Administration Artificial Tears 1 applic 11/23/17 22:00 12/03/17 22:18 Artificial Tears Ointment - OU 1 applic HS [facility] Administration Calcium Acetate 667 mg 12/02/17 12:00 12/04/17 17:17 Phoslo - PO 667 mg TIDCM [facility] Administration Chlorhexidine Gluconate 1 applic 11/22/17 22:00 12/03/17 22:18 Hibiclens For Decolonization - TP 1 applic HS [facility] Administration Ferrous Sulfate 300 mg 11/23/17 10:00 12/04/17 10:06 Feosol GT 300 mg DAILY [facility] Administration Piperacillin Sod/Tazobactam 50 mls @ 100 mls/hr 12/01/17 14:00 12/04/17 17:43 Sod 3.375 gm/ Dextrose IVPB 100 mls/hr Q8H-IV [facility] Administration Protocol Phenylephrine HCl 20,000 mcg/ 250 mls @ 75 mls/hr 12/01/17 14:30 12/04/17 13: 52 Sodium Chloride IVPB Not Given [facility] Protocol 100 MCG/MIN Insulin Aspart 1 vial 11/23/17 07:00 12/04/17 17:16 Novolog Vial Sliding Scale - SQ 4 units ACHS [facility] Administration Protocol Insulin Detemir 10 units 12/04/17 22:00 Levemir Vial SQ HS [facility] Lactobacillus Acidophilus 1 tab 11/23/17 10:00 12/04/17 10:05 Bacid - PEG 1 tab DAILY [facility] Administration Metoprolol Tartrate 5 mg 11/22/17 23:20 12/01/17 09:34 Lopressor Injection - IVPUSH 5 mg Q4H PRN Administration HYPERTENSION Prednisone 40 mg 11/23/17 10:00 12/04/17 10:05 Deltasone - PO 40 mg DAILY [facility] Administration Quetiapine Fumarate 25 mg 11/23/17 22:00 12/03/17 22:19 Seroquel - PO 25 mg HS [facility] Administration Ranitidine HCl 150 mg 11/23/17 10:00 12/04/17 10:05 Zantac - PO 150 mg DAILY [facility] Administration Roflumilast 500 mcg 11/23/17 10:00 12/04/17 11:00 Daliresp - NGT 500 mcg DAILY [facility] Administration Saliva Substitute 1 applic 11/23/17 10:00 12/04/17 10:05 Mouthkote Solution - MM 1 applic DAILY [facility] Administration Impression 1. MIRLANDE 2. hypernatremia 3. chronic resp failure s/p trache 4. s/p trache 5. s/p peg 6. sepsis 7. interstitial lung disease 8. chf diastolic 9. DM 10. lactic acidosis 11. PNA Plan - repeat sodium in am - if elevated can increase free water - avoid fluids - vent support - prognosis is poor - discussed with medical team Dr Gan
[2017-12-04] MEDS: CHLORHEXIDINE GLUCONATE 4% CLEANSER FOR DECOLONIZATION TP SCH (21:23)
[2017-12-04] MEDS: QUEtiapine FUMARATE 25 MG TABLET (FP) PO SCH (21:23)
[2017-12-04] MEDS: MINERAL OIL/PETROLATUM,WHITE 3.5 GM TUBE OU SCH (21:36)
[2017-12-04] MEDS: INSULIN DETEMIR 100 UNITS/ML MDV SQ SCH (21:37)
[2017-12-05] MEDS: PIPERACILLIN/TAZOB 3.375 GM 3.375 GM in DEXTROSE 5%-WATER - 50 ML IVPB SCH ×3 (03:00→18:03)
[2017-12-05] MEDS: METOPROLOL TARTRATE 5 MG/5 ML VIAL IVPUSH PRN (03:33)
[2017-12-05] MEDS: ACETAMINOPHEN 1000 MG/100 ML VIAL (NON FORMULARY) IVPB PRN ×2 (03:47→20:00)
[2017-12-05] MEDS: BANATROL PLUS POWDER PACKET PEG SCH ×3 (05:54→21:09)
[2017-12-05 05:55] LABS: ARTERIAL BLD GAS O2 SATURATION 92.7 % (90-98.9); ARTERIAL BLOOD GAS PO2 63.4 mmHg (80-100); ARTERIAL BLOOD GAS pH 7.38 (7.35-7.45)
[2017-12-05 05:56] LABS: ALLENS TEST POSITIVE
[2017-12-05 06:00] LABS: ARTERIAL BLOOD GAS BASE EXCESS 15.1 meq/l (-2-2); ARTERIAL BLOOD GAS PCO2 71.8 mmHg (35-45)
[2017-12-05] MEDS: INSULIN SLIDING SCALE (NOVOLOG) 1 VIAL SQ SCH ×4 (06:07→21:51)
[2017-12-05 06:51] LABS: CHLORIDE 102 mmol/L (98-107); POTASSIUM 3.7 mmol/L (3.5-5.1); SODIUM 146 mmol/L (136-145)
[2017-12-05 06:57] LABS: ALBUMIN 1.7 g/dl (3.4-5.0); ALK PHOS 152 U/L (45-117); ANION GAP 2 (8-16); BILIRUBIN,TOTAL 0.5 mg/dL (0.2-1.0); BLOOD UREA NITROGEN 35 mg/dL (7-18); CALCIUM 7.6 mg/dL (8.5-10.1); CO2 42 mmol/L (21-32); CREATININE 0.6 mg/dL (0.7-1.3); GLUCOSE,RANDOM 158 mg/dL (74-106); PHOSPHOROUS 1.7 mg/dL (2.5-4.9); SGOT/AST 59 U/L (15-37); SGPT/ALT 373 U/L (12-78); TOT PROT 6.9 g/dl (6.4-8.2)
[2017-12-05 07:00] LABS: INR 1.59 (0.82-1.09)
[2017-12-05 07:02] LABS: ACTIVATED PTT 29.5 SECONDS (26.9-34.4)
[2017-12-05 07:52] LABS: URINE APPEARANCE SLCLOUDY; URINE BILIRUBIN NEGATIVE (NEGATIVE); URINE BLOOD NEGATIVE (NEGATIVE); URINE COLOR YELLOW; URINE GLUCOSE (UA) 2+ (NEGATIVE); URINE KETONE NEGATIVE (NEGATIVE); URINE LEUK ESTERASE NEGATIVE (NEGATIVE); URINE NITRITE NEGATIVE (NEGATIVE); URINE UROBILINOGEN NEGATIVE mg/dL (0.2-1.0)
--- NOTE | 2017-12-05 08:05 | PN ---
Progress Note, Physician History of Present Illness: 24 hour events: Patient febrile to 102.3. Pulse ox noted at 85% on 90% FiO2 overnight, setting subsequently increased to 100%. This morning patient has decreased mentation, initially not responding to questions, not making eye contact or tracking with eyes. Subjective: Patient denies complaints 24 HR I/O: I: 3318cc O: 1520cc Net: 1798cc BM: Yes - Current Medication List Current Medications: Active Medications Acetaminophen (Tylenol -) 650 mg PO Q6H PRN PRN Reason: FEVER Last Admin: 12/01/17 10:16 Dose: 650 mg Acetaminophen (Ofirmev Injection -) 1,000 mg IVPB Q6H PRN PRN Reason: FEVER Last Admin: 12/05/17 03:47 Dose: 1,000 mg Albuterol/Ipratropium (Duoneb -) 1 amp NEB RQID [facility] Last Admin: 12/04/17 20:48 Dose: 1 amp Amino Acids (Prosource No Carb Liquid Pkt) 30 ml PO BID@0800,1730 [facility] Last Admin: 12/04/17 18:00 Dose: 30 ml Apixaban (Eliquis -) 5 mg PO BID [facility] Last Admin: 12/04/17 21:23 Dose: 5 mg Artificial Tears (Artificial Tears Ointment -) 1 applic OU HS [facility] Last Admin: 12/04/17 21:36 Dose: 1 applic Calcium Acetate (Phoslo -) 667 mg PO TIDCM [facility] Last Admin: 12/04/17 17:17 Dose: 667 mg Chlorhexidine Gluconate (Hibiclens For Decolonization -) 1 applic TP HS [facility] Last Admin: 12/04/17 21:23 Dose: 1 applic Ferrous Sulfate (Feosol) 300 mg GT DAILY [facility] Last Admin: 12/04/17 10:06 Dose: 300 mg Piperacillin Sod/Tazobactam (Sod 3.375 gm/ Dextrose) 50 mls @ 100 mls/hr IVPB Q8H-IV [facility] PRN Reason: Protocol Last Admin: 12/05/17 03:00 Dose: 100 mls/hr Phenylephrine HCl 20,000 mcg/ (Sodium Chloride) 250 mls @ 75 mls/hr IVPB [facility]; 100 MCG/MIN PRN Reason: Protocol Last Admin: 12/04/17 13:52 Dose: Not Given Insulin Aspart (Novolog Vial Sliding Scale -) 1 vial SQ ACHS [facility] PRN Reason: Protocol Last Admin: 12/05/17 06:07 Dose: 2 units Insulin Detemir (Levemir Vial) 10 units SQ [facility] Last Admin: 12/04/17 21:37 Dose: 10 units Lactobacillus Acidophilus (Bacid -) 1 tab PEG DAILY [facility] Last Admin: 12/04/17 10:05 Dose: 1 tab Metoprolol Tartrate (Lopressor Injection -) 5 mg IVPUSH Q4H PRN PRN Reason: HYPERTENSION Last Admin: 12/05/17 03:33 Dose: 5 mg Prednisone (Deltasone -) 40 mg PO DAILY [facility] Last Admin: 12/04/17 10:05 Dose: 40 mg Quetiapine Fumarate (Seroquel -) 25 mg PO HS [facility] Last Admin: 12/04/17 21:23 Dose: 25 mg Ranitidine HCl (Zantac -) 150 mg PO DAILY [facility] Last Admin: 12/04/17 10:05 Dose: 150 mg Roflumilast (Daliresp -) 500 mcg NGT DAILY [facility] Last Admin: 12/04/17 11:00 Dose: 500 mcg Saliva Substitute (Mouthkote Solution -) 1 applic MM DAILY [facility] Last Admin: 12/04/17 10:05 Dose: 1 applic - Objective Vital Signs: Vital Signs Temperature 100.9 F H 12/05/17 05:58 Pulse Rate 112 H 12/05/17 05:58 Respiratory Rate 28 H 12/05/17 05:58 Blood Pressure 108/51 12/05/17 05:58 O2 Sat by Pulse Oximetry (%) 96 12/04/17 20:14 Constitutional: Yes: No Distress, Calm, Cachectic, Thin Eyes: Yes: Conjunctiva Clear, EOM Intact HENT: Yes: Atraumatic, Normocephalic Neck: Yes: Supple, Trachea Midline, Other (tracheostomy tube in place, collar sutured into skin/soft tissue on anterior neck, there is anterior tension on the skin from the suture) Cardiovascular: Yes: Tachycardia Respiratory: Yes: Other (bilateral crackles). No: Accessory Muscle Use, Stridor Gastrointestinal: Yes: Normal Bowel Sounds, Soft Extremities: Yes: Other (significant muscle atrophy) Edema: Yes (sacral) Integumentary: Yes: WNL Wound/Incision: Yes: Other (stoma without secretions currently) Neurological: No: Alert, Oriented Psychiatric: No: Alert, Oriented, Agitated Labs: CBC, BMP 12/05/17 05:30 INR, PTT INR 1.59 (0.82-1.09) H 12/05/17 05:30 - ....Imaging Chest X-ray: Report Reviewed, Image Reviewed, Other (no interval change) Assessment/Plan 62 YOM with h/o NIDDM, PUD, BPH, long-time smoker, presented initially with hypoxic respiratory failure while eating food, found large DVT to RLE, now s/p IVC filter placed (10/20/17) and thrombectomy (10.24.17), tracheostomy, on ventilator, continues to require 90-100% FiO2. Neuro: #Nicotine Dependence: -Nicotine patch 7 MG daily #Anxiety -0.5 Xanax q8h for management of anxiety #Agitation -Continue Seroquel 25mg for management of agitation -Alida Palmer (ordered) CV: #Shock, septic vs. cardiogenic vs. iatrogenic, resolved. Source unclear. -FU urine, blood, sputum Cx #DVT: U/S positive for right calf DVT, s/p thrombectomy -Continue Eliquis #Chest Pain, none in >4 days. EKG without ischemic changes. -Monitor for recurrence of chest pain Pulm: #Acute Hypoxic Respiratory Failure, improved. Initially thought ARDS vs. CHF given JVD and crackles treated for CAP. ECHO showing mild MR, mild/mod TR, mild pHTN. CT with diffuse interstitial lung disease, serial CXR with e/o congestion /volume overload. Patient was transferred back to the ICU for inability to maintain tidal volumes. Tidal volumes continue to be maintained with new trach tube. -Continue Prednisone 40 daily -Continue scheduled duonebs -Continue daliresp -Continue weaning FiO2 as possible with goal <60% which should be met prior to d /c to SNF ID: Likely ILD with GGO vs. infectious pattern. HIV, influenza, strep, legionella neg. BCx NGTD, sputum Cx neg. Completed Azithromycin and Ceftriaxone for suspected CAP. Concern for right lower lobe pneumonia. Urine cultures growing yeast. Sputum culture growing lactose fermenting negative bacilli. -Today is Zosyn day 5. -Continue to monitor. -ID recs appreciated #Leukocytosis, fluctuating. Now with fever and lactate 2.3. -Repeat cultures -Continue to monitor CBCD -CXR daily Renal: - CTM - Avoid nephrotoxic medications Heme: #Macrocytic Anemia, fluctuating and worsened today. Hgb 6.9 11/25/17. -Transfuse 2 units today -Lasix 20 mg IVPUSH after transfusion Endo #NIDDM. -Will continue to monitor BGM and provide D50 pushes as needed. -10 mg Levemir HS -ISS : #BPH -Continue tamsulosin 0.4mg daily GI: #Peptic Ulcer Disease: History of mesh according to family and had Endoscopy two months. Was given medications according to patients daughter and completed course. -Continue PPI -Reduced banana flakes to one pack TID per dietitian #Cachexia, chronic. -Continue PEG tube feeds -Prosource BID FEN -Electrolytes repleted as needed. -Continue PEG tube feeds. PPX: -Continue Eliquis -Continue ranitidine -PT Lines/Drains/Tubes Feeding tube Tracheostomy tube PIV Disposition: Further ICU care
[2017-12-05] MEDS ORDERED: CALCIUM ACETATE 667 MG CAPSULE (FP) PO ONE (08:06)
[2017-12-05 08:07] LABS: HEMATOCRIT 22.6 % (35.4-49); MCH 30.6 pg (25.7-33.7); MCHC 30.4 g/dl (32.0-35.9); MEAN CELL VOLUME 100.6 fl (80-96); PLATELET COUNT 73 K/MM3 (134-434); RBC 2.24 M/mm3 (4.00-5.60); RDW 15.6 % (11.9-15.9); WHITE BLOOD COUNT 12.8 K/mm3 (4.0-10.0)
[2017-12-05] MEDS: CALCIUM ACETATE 667 MG CAPSULE (FP) PO SCH (08:07)
[2017-12-05] MEDS ORDERED: POTASSIUM CHLORIDE TABS 20 MEQ TABLET.ER (FP) PO ONE (08:08)
[2017-12-05 08:12] LABS: HEMOGLOBIN 6.9 GM/dL (11.7-16.9)
[2017-12-05] MEDS: ALBUTEROL SO4 2.5/IPRATROPIUM 0.5 INH SOL 3 ML VIAL.NEB. NEB SCH ×4 (08:23→21:15)
[2017-12-05 08:27] LABS: URINE PROTEIN 2+ (NEGATIVE)
[2017-12-05 08:55] LABS: EPI CELLS RARE /HPF (FEW); URINE HYALINE CAST 3 /lpf; URINE MUCUS RARE; YEAST MANY
[2017-12-05] MEDS ORDERED: PT OWN MED DRAWER 7, Y5N ONE ×2 (09:33→17:34)
[2017-12-05] MEDS: LACTOBACILLUS ACIDOPHILUS 1 EACH TAB (FP) PEG SCH (10:02)
[2017-12-05] MEDS: predniSONE 20 MG TABLET (UD) PO SCH (10:02)
[2017-12-05] MEDS: AMINO ACIDS/PROTEIN HYDROLYS 30 ML LIQUID.PKT PO SCH ×2 (10:02→17:20)
[2017-12-05] MEDS: ROFLUMILAST 500 MCG TABLET NGT SCH (10:02)
[2017-12-05] MEDS: RANITIDINE HCL 150 MG TABLET (FP) PO SCH (10:03)
[2017-12-05] MEDS: FERROUS SO4 300 MG/5 ML ORAL SOLN UNIT DOSE CUPS GT SCH (10:03)
[2017-12-05] MEDS: LYTES/YERBA SANTA 240 ML BOTTLE MM SCH (10:04)
--- NOTE | 2017-12-05 10:27 | PN ---
Progress Note, Physician History of Present Illness: Awake, alert, and responsive. Nods to indicate no pain Breathing slightly tachypneic Tmax 102.8 per RN note Repeat cultures obtained LFTs improved - Current Medication List Current Medications: Active Medications Acetaminophen (Tylenol -) 650 mg PO Q6H PRN PRN Reason: FEVER Last Admin: 12/01/17 10:16 Dose: 650 mg Acetaminophen (Ofirmev Injection -) 1,000 mg IVPB Q6H PRN PRN Reason: FEVER Last Admin: 12/05/17 03:47 Dose: 1,000 mg Albuterol/Ipratropium (Duoneb -) 1 amp NEB RQID [facility] Last Admin: 12/05/17 08:23 Dose: 1 amp Amino Acids (Prosource No Carb Liquid Pkt) 30 ml PO BID@0800,1730 [facility] Last Admin: 12/04/17 18:00 Dose: 30 ml Apixaban (Eliquis -) 5 mg PO BID [facility] Last Admin: 12/04/17 21:23 Dose: 5 mg Artificial Tears (Artificial Tears Ointment -) 1 applic OU HS [facility] Last Admin: 12/04/17 21:36 Dose: 1 applic Chlorhexidine Gluconate (Hibiclens For Decolonization -) 1 applic TP HS [facility] Last Admin: 12/04/17 21:23 Dose: 1 applic Ferrous Sulfate (Feosol) 300 mg GT DAILY [facility] Last Admin: 12/04/17 10:06 Dose: 300 mg Piperacillin Sod/Tazobactam (Sod 3.375 gm/ Dextrose) 50 mls @ 100 mls/hr IVPB Q8H-IV [facility] PRN Reason: Protocol Last Admin: 12/05/17 03:00 Dose: 100 mls/hr Insulin Aspart (Novolog Vial Sliding Scale -) 1 vial SQ ACHS [facility] PRN Reason: Protocol Last Admin: 12/05/17 06:07 Dose: 2 units Insulin Detemir (Levemir Vial) 10 units SQ HS [facility] Last Admin: 12/04/17 21:37 Dose: 10 units Lactobacillus Acidophilus (Bacid -) 1 tab PEG DAILY [facility] Last Admin: 12/04/17 10:05 Dose: 1 tab Metoprolol Tartrate (Lopressor Injection -) 5 mg IVPUSH Q4H PRN PRN Reason: HYPERTENSION Last Admin: 12/05/17 03:33 Dose: 5 mg Prednisone (Deltasone -) 40 mg PO DAILY [facility] Last Admin: 12/04/17 10:05 Dose: 40 mg Quetiapine Fumarate (Seroquel -) 25 mg PO HS [facility] Last Admin: 12/04/17 21:23 Dose: 25 mg Ranitidine HCl (Zantac -) 150 mg PO DAILY [facility] Last Admin: 12/04/17 10:05 Dose: 150 mg Roflumilast (Daliresp -) 500 mcg NGT DAILY [facility] Last Admin: 12/04/17 11:00 Dose: 500 mcg Saliva Substitute (Mouthkote Solution -) 1 applic MM DAILY [facility] Last Admin: 12/04/17 10:05 Dose: 1 applic - Objective Vital Signs: Vital Signs Temperature 100.9 F H 12/05/17 05:58 Pulse Rate 112 H 12/05/17 05:58 Respiratory Rate 25 H 12/05/17 08:23 Blood Pressure 108/51 12/05/17 05:58 O2 Sat by Pulse Oximetry (%) 96 12/04/17 20:14 Constitutional: Yes: No Distress, Cachectic Eyes: Yes: Conjunctiva Clear Cardiovascular: Yes: Regular Rate and Rhythm, S1, S2 Respiratory: Yes: Diminished Gastrointestinal: Yes: Normal Bowel Sounds, Soft. No: Tenderness Labs: CBC, BMP 12/05/17 05:30 12/05/17 05:30 INR, PTT INR 1.59 (0.82-1.09) H 12/05/17 05:30 Assessment/Plan Hospital acquired R pneumonia, possible aspiration Sepsis Interstitial lung disease Elevated LFTs improving Continue empiric coverage HCAP with zosyn day #4
[2017-12-05] MEDS ORDERED: FUROSEMIDE 40 MG/4 ML INJECTABLE VIAL IVPUSH ONE ×2 (11:56→17:23)
[2017-12-05 12:03] LABS: PLATELET ESTIMATE DECREASED
--- NOTE | 2017-12-05 12:39 | PN ---
Teaching Attending Note Name of Resident: Nolvia Carol Ann ATTENDING PHYSICIAN STATEMENT I saw and evaluated the patient. I reviewed the resident's note and discussed the case with the resident. I agree with the resident's findings and plan as documented. SUBJECTIVE: Pt seen and examined in the ICU. Vented on volume assist control with 100% FiO2 , PEEP 8. Febrile overnight, recultured. OBJECTIVE: Last Vital Signs Temp Pulse Resp BP Pulse Ox 99.5 F 114 H 24 109/64 98 12/05/17 10:00 12/05/17 10:00 12/05/17 11:15 12/05/17 10:00 12/05/17 10:45 Intake & Output 12/02/17 12/03/17 12/04/17 12/05/17 23:59 23:59 23:59 23:59 Intake Total 47.2 3318 2620 1910 Output Total 2400 1520 800 350 Balance -2352.8 1798 1820 1560 Weight 37.308 kg 37.739 kg 36.151 kg 37.966 kg Gen: vented, more lethargic, arousable, cachectic Heart: tachycardic, regular Lung: bilateral rhonchi Abd: soft, nontender Ext: no edema CBC, BMP 12/05/17 05:30 12/05/17 05:30 Active Medications Acetaminophen (Tylenol -) 650 mg PO Q6H PRN PRN Reason: FEVER Last Admin: 12/01/17 10:16 Dose: 650 mg Acetaminophen (Ofirmev Injection -) 1,000 mg IVPB Q6H PRN PRN Reason: FEVER Last Admin: 12/05/17 03:47 Dose: 1,000 mg Albuterol/Ipratropium (Duoneb -) 1 amp NEB RQID [facility] Last Admin: 12/05/17 11:45 Dose: 1 amp Amino Acids (Prosource No Carb Liquid Pkt) 30 ml PO BID@0800,1730 [facility] Last Admin: 12/05/17 10:02 Dose: 30 ml Apixaban (Eliquis -) 5 mg PO BID [facility] Last Admin: 12/04/17 21:23 Dose: 5 mg Artificial Tears (Artificial Tears Ointment -) 1 applic OU HS [facility] Last Admin: 12/04/17 21:36 Dose: 1 applic Chlorhexidine Gluconate (Hibiclens For Decolonization -) 1 applic TP HS [facility] Last Admin: 12/04/17 21:23 Dose: 1 applic Ferrous Sulfate (Feosol) 300 mg GT DAILY [facility] Last Admin: 12/05/17 10:03 Dose: 300 mg Piperacillin Sod/Tazobactam (Sod 3.375 gm/ Dextrose) 50 mls @ 100 mls/hr IVPB Q8H-IV [facility] PRN Reason: Protocol Last Admin: 12/05/17 10:03 Dose: 100 mls/hr Insulin Aspart (Novolog Vial Sliding Scale -) 1 vial SQ ACHS [facility] PRN Reason: Protocol Last Admin: 12/05/17 10:29 Dose: Not Given Insulin Detemir (Levemir Vial) 10 units SQ HS [facility] Last Admin: 12/04/17 21:37 Dose: 10 units Lactobacillus Acidophilus (Bacid -) 1 tab PEG DAILY [facility] Last Admin: 12/05/17 10:02 Dose: 1 tab Metoprolol Tartrate (Lopressor Injection -) 5 mg IVPUSH Q4H PRN PRN Reason: HYPERTENSION Last Admin: 12/05/17 03:33 Dose: 5 mg Prednisone (Deltasone -) 40 mg PO DAILY [facility] Last Admin: 12/05/17 10:02 Dose: 40 mg Quetiapine Fumarate (Seroquel -) 25 mg PO HS [facility] Last Admin: 12/04/17 21:23 Dose: 25 mg Ranitidine HCl (Zantac -) 150 mg PO DAILY [facility] Last Admin: 12/05/17 10:03 Dose: 150 mg Roflumilast (Daliresp -) 500 mcg NGT DAILY [facility] Last Admin: 12/05/17 10:02 Dose: 500 mcg Saliva Substitute (Mouthkote Solution -) 1 applic MM DAILY [facility] Last Admin: 12/05/17 10:04 Dose: 1 applic ASSESSMENT AND PLAN: Acute Hypoxic Respiratory Failure s/p Tracheostomy Pneumonia treated Sepsis Interstitial Lung Disease Acute Diastolic Heart Failure improved Acute Kidney Injury Lactic Acidosis resolved DM Anemia RLE DVT - antibiotics per ID - f/u pending cultures - monitor urine output, creatinine - continue prednisone - anxiolytics, seroquel qHS - enteral feeds - titrate levemir - continue anticoagulation, monitor H/H - transfuse PRBC - swallow eval for possible PO intake when respiratory status more stable - taper FiO2 to keep SpO2 >90% - not a candidate for weaning at this time due to high oxygen requirements - bedside PT - DVT/GI prophylaxis - continue discussions regarding goals of care as pt with clinical deterioration and limited options - continue ICU monitoring for now critical care time spent in reviewing chart, evaluating patient and formulating plan 35 min Problem List - Problems (1) Acute respiratory failure with hypoxia Code(s): J96.01 - ACUTE RESPIRATORY FAILURE WITH HYPOXIA (2) Pneumonia Code(s): J18.9 - PNEUMONIA, UNSPECIFIED ORGANISM (3) Diabetes Code(s): E11.9 - TYPE 2 DIABETES MELLITUS WITHOUT COMPLICATIONS
--- NOTE | 2017-12-05 14:15 | PN ---
Physical Exam: SUBJECTIVE: Patient seen and examined pt spiked temp of 102.3, repeat cultures ordered. Pt on FiO2 of 100%. This am, pt denies pain anywhere. OBJECTIVE: Vital Signs Period Temp Pulse Resp BP Sys/Sutton Pulse Ox Last 24 Hr 98.7 F-109.1 F 101-138 18-36 106-152/51-76 96-100 GENERAL: cachectic elderly male, vented, sedated, diaphoretic HEENT: trach in place LUNGS: upper airway gurgling sounds, mechanical breath sounds, tachypneic with accessory muscle use HEART: difficult to assess over mechanical breath sounds ABDOMEN: scaphoid abdomen, soft, NT, mesh from hernia surgery is easily palpable EXTREMITIES: 2+ pulses, warm, well-perfused, no edema, emaciated NEUROLOGICAL: Cranial nerves II through XII grossly intact Laboratory Results - last 24 hr 18 12/04/17 12/04/17 05:50 16:39 21:36 WBC RBC Hgb Hct MCV MCH MCHC RDW Plt Count MPV Total Counted Neutrophils % Neutrophils % (Manual) Band Neutrophils % Lymphocytes % Lymphocytes % (Manual) Monocytes % (Manual) Metamyelocytes Platelet Estimate PT with INR INR PTT (Actin FS) Puncture Site ABG pH ABG pCO2 at Pt Temp ABG pO2 at Pt Temp ABG HCO3 ABG O2 Sat (Measured) ABG O2 Content ABG Base Excess Dionte Test O2 Delivery Device Oxygen Flow Rate Vent Mode Vent Rate PEEP Pressure Support Vent Sodium Potassium Chloride Carbon Dioxide Anion Gap BUN Creatinine Creat Clearance w eGFR POC Glucometer [phone] Random Glucose Lactic Acid Calcium Phosphorus Magnesium Total Bilirubin AST ALT Alkaline Phosphatase Total Protein Albumin Globulin 4.9 Urine Color Urine Appearance Urine pH Ur Specific [place] Urine Protein Urine Glucose (UA) Urine Ketones Urine Blood Urine Nitrite Urine Bilirubin Urine Urobilinogen Ur Leukocyte Esterase Urine WBC (Auto) Urine RBC (Auto) Ur Epithelial Cells Hyaline Casts Urine Mucus Urine Yeast Blood Type Antibody Screen Crossmatch 12/05/17 12/05/17 12/05/17 05:30 05:30 05:30 WBC 12.8 H D RBC 2.24 L Hgb 6.9 L* Hct 22.6 L MCV 100.6 H MCH 30.6 MCHC 30.4 L RDW 15.6 Plt Count 73 L MPV 12.0 H Total Counted 100 Neutrophils % No Result Required. Neutrophils % (Manual) 80.0 D Band Neutrophils % 5.0 Lymphocytes % No Result Required. Lymphocytes % (Manual) 8.0 D Monocytes % (Manual) 4 Metamyelocytes 3 H D Platelet Estimate Decreased PT with INR 18.00 H INR 1.59 H PTT (Actin FS) 29.5 Puncture Site ABG pH ABG pCO2 at Pt Temp ABG pO2 at Pt Temp ABG HCO3 ABG O2 Sat (Measured) ABG O2 Content ABG Base Excess Dionte Test O2 Delivery Device Oxygen Flow Rate Vent Mode Vent Rate PEEP Pressure Support Vent Sodium 146 H Potassium 3.7 Chloride 102 Carbon Dioxide 42 H Anion Gap 2 L BUN 35 H Creatinine 0.6 L D Creat Clearance w eGFR > 60 POC Glucometer Random Glucose 158 H D Lactic Acid Calcium 7.6 L Phosphorus 1.7 L D Magnesium 2.0 D Total Bilirubin 0.5 D AST 59 H D ALT 373 H D Alkaline Phosphatase 152 H Total Protein 6.9 Albumin 1.7 L Globulin Urine Color Urine Appearance Urine pH Ur Specific [place] Urine Protein Urine Glucose (UA) Urine Ketones Urine Blood Urine Nitrite Urine Bilirubin Urine Urobilinogen Ur Leukocyte Esterase Urine WBC (Auto) Urine RBC (Auto) Ur Epithelial Cells Hyaline Casts Urine Mucus Urine Yeast Blood Type Antibody Screen Crossmatch 12/05/17 12/05/17 12/05/17 05:39 05:45 06:00 WBC RBC Hgb Hct MCV MCH MCHC RDW Plt Count MPV Total Counted Neutrophils % Neutrophils % (Manual) Band Neutrophils % Lymphocytes % Lymphocytes % (Manual) Monocytes % (Manual) Metamyelocytes Platelet Estimate PT with INR INR PTT (Actin FS) Puncture Site Right radial ABG pH 7.38 ABG pCO2 at Pt Temp 71.8 H* ABG pO2 at Pt Temp 63.4 L ABG HCO3 41.5 H* ABG O2 Sat (Measured) 92.7 ABG O2 Content 8.7 L* ABG Base Excess 15.1 H* Dionte Test Positive O2 Delivery Device Vent Oxygen Flow Rate 100 Vent Mode A/c Vent Rate 14 PEEP 8.0 Pressure Support Vent 450 Sodium Potassium Chloride Carbon Dioxide Anion Gap BUN Creatinine Creat Clearance w eGFR POC Glucometer [phone] Random Glucose Lactic Acid Calcium Phosphorus Magnesium Total Bilirubin AST ALT Alkaline Phosphatase Total Protein Albumin Globulin Urine Color Yellow Urine Appearance Slcloudy Urine pH 7.0 D Ur Specific [place] 1.019 Urine Protein 2+ H Urine Glucose (UA) 2+ H Urine Ketones Negative Urine Blood Negative Urine Nitrite Negative Urine Bilirubin Negative Urine Urobilinogen Negative Ur Leukocyte Esterase Negative Urine WBC (Auto) 3 Urine RBC (Auto) 27 Ur Epithelial Cells Rare Hyaline Casts 3 Urine Mucus Rare Urine Yeast Many Blood Type Antibody Screen Crossmatch 12/05/17 12/05/17 06:55 09:40 WBC RBC Hgb Hct MCV MCH MCHC RDW Plt Count MPV Total Counted Neutrophils % Neutrophils % (Manual) Band Neutrophils % Lymphocytes % Lymphocytes % (Manual) Monocytes % (Manual) Metamyelocytes Platelet Estimate PT with INR INR PTT (Actin FS) Puncture Site ABG pH ABG pCO2 at Pt Temp ABG pO2 at Pt Temp ABG HCO3 ABG O2 Sat (Measured) ABG O2 Content ABG Base Excess Dionte Test O2 Delivery Device Oxygen Flow Rate Vent Mode Vent Rate PEEP Pressure Support Vent Sodium Potassium Chloride Carbon Dioxide Anion Gap BUN Creatinine Creat Clearance w eGFR POC Glucometer Random Glucose Lactic Acid 2.3 H* Calcium Phosphorus Magnesium Total Bilirubin AST ALT Alkaline Phosphatase Total Protein Albumin Globulin Urine Color Urine Appearance Urine pH Ur Specific [place] Urine Protein Urine Glucose (UA) Urine Ketones Urine Blood Urine Nitrite Urine Bilirubin Urine Urobilinogen Ur Leukocyte Esterase Urine WBC (Auto) Urine RBC (Auto) Ur Epithelial Cells Hyaline Casts Urine Mucus Urine Yeast Blood Type O POSITIVE Antibody Screen Negative Crossmatch See Detail Active Medications Generic Name Dose Route Start Last Admin Trade Name Freq PRN Reason Stop Dose Admin Acetaminophen 650 mg 11/22/17 23:20 12/01/17 10:16 Tylenol - PO 650 mg Q6H PRN Administration FEVER Acetaminophen 1,000 mg 11/22/17 23:20 12/05/17 03:47 Ofirmev Injection - IVPB 1,000 mg Q6H PRN Administration FEVER Albuterol/Ipratropium 1 amp 11/23/17 08:00 12/05/17 11:45 Duoneb - NEB 1 amp RQID [facility] Administration Amino Acids 30 ml 12/04/17 17:30 12/05/17 10:02 Prosource No Carb Liquid Pkt PO 30 ml BID@0800,1730 [facility] Administration Apixaban 5 mg 11/23/17 10:00 12/04/17 21:23 Eliquis - PO 5 mg BID [facility] Administration Artificial Tears 1 applic 11/23/17 22:00 12/04/17 21:36 Artificial Tears Ointment - OU 1 applic HS [facility] Administration Chlorhexidine Gluconate 1 applic 11/22/17 22:00 12/04/17 21:23 Hibiclens For Decolonization - TP 1 applic HS [facility] Administration Ferrous Sulfate 300 mg 11/23/17 10:00 12/05/17 10:03 Feosol GT 300 mg DAILY [facility] Administration Piperacillin Sod/Tazobactam 50 mls @ 100 mls/hr 12/01/17 14:00 12/05/17 10:03 Sod 3.375 gm/ Dextrose IVPB 100 mls/hr Q8H-IV [facility] Administration Protocol Insulin Aspart 1 vial 11/23/17 07:00 12/05/17 10:29 Novolog Vial Sliding Scale - SQ Not Given ACHS [facility] Protocol Insulin Detemir 10 units 12/04/17 22:00 12/04/17 21:37 Levemir Vial SQ 10 units HS [facility] Administration Lactobacillus Acidophilus 1 tab 11/23/17 10:00 12/05/17 10:02 Bacid - PEG 1 tab DAILY [facility] Administration Metoprolol Tartrate 5 mg 11/22/17 23:20 12/05/17 03:33 Lopressor Injection - IVPUSH 5 mg Q4H PRN Administration HYPERTENSION Prednisone 40 mg 11/23/17 10:00 12/05/17 10:02 Deltasone - PO 40 mg DAILY [facility] Administration Quetiapine Fumarate 25 mg 11/23/17 22:00 12/04/17 21:23 Seroquel - PO 25 mg HS [facility] Administration Ranitidine HCl 150 mg 11/23/17 10:00 12/05/17 10:03 Zantac - PO 150 mg DAILY [facility] Administration Roflumilast 500 mcg 11/23/17 10:00 12/05/17 10:02 Daliresp - NGT 500 mcg DAILY [facility] Administration Saliva Substitute 1 applic 11/23/17 10:00 12/05/17 10:04 Mouthkote Solution - MM 1 applic DAILY [facility] Administration ASSESSMENT/PLAN: 62M w/ hx of active smoking, NIDDM, PUD, and BPH who presented with SOB, found to have acute hypoxic respiratory failure, extensive RLE DVT, sepsis likely 2/2 aspiration PNA, and acute diastolic CHF. #Acute hypoxic respiratory failure -suspect from ILD with pneumonitis, s/p intubation 11/03 with failed weaning and now s/p trach 11/07. trach exchanged 11/19. no gross signs of tracheomalacia. unable to titrate down FiO2. s/p trach change by Dr. Rosario on 11/30 -requiring 100% FiO2 today -goal SpO2 >88% -continue prednisone 40mg #sepsis -leukocytosis of 12.8, temp of 102.3, tachycardia -ID on board, recs appreciated. continue zosyn (day #4) -likely 2/2 aspiration PNA -new fever, f/u new cultures -pressors PRN, maintain MAP > 65 #chest pain -trop: 0.7--> 0.09--> 0.09 -EKG with new changes -Echo: grossly normal -cards: elevated trops from septic shock, no cardiac intervention at this point #RLE DVT -s/p IVC filter 10/20, thrombectmy 10/24 -continue eliquis 5mg BID, monitor for bleeding #Acute diastolic heart failure -s/p intermittent lasix IV. clinically euvolemic. will hold for now #Iron deficiency anemia and anemia of chronic disease -Hgb of 6.9 today, ordered 2U of PRBCs -possible due to frequent blood draws and comorbidities - s/p 1 unit PRBC this hospital stay so far -cont iron supplementation #elevated LFTs -downtrending today -continue to monitor #Hypernatremia -Na of 146 -continue free water flushes -continue to monitor #antibiotic assoc Diarrhea -likely due to prolonged abx use, now resolved -continue bacid and banatol. #continuous nicotine dependence -nicotine patch #cachexia -severe malnutrition evident by body habitus. lost 40+lbs this hospital stay. s/p PEG 11/09. -tolerating TF -continue 2 loida to increase calorie intake as per RD. #DM -improved -cont levemir 16 units BID -cont to titrate as needed. #Agitation -intermittent periods of agitation -continue seroquel HS #FEN/PPX -water flush tube feeds -correct Na -tube feeds -ranitidine -eliquis #Dispo -Poor overall prognosis -speak to HCP about goals of care, palliative care on board. Case discussed with attending, Dr. Harper. -Russell Anderson MD PGY1 Visit type - Emergency Visit Emergency Visit: Yes ED Registration Date: 10/17/17 Care time: The patient presented to the Emergency Department on the above date and was hospitalized for further evaluation of their emergent condition. - New Patient This patient is new to me today: No - Critical Care Critical Care patient: Yes Total Critical Care Time (in minutes): 36 Critical Care Statement: The care of this patient involved high complexity decision making to prevent further life threatening deterioration of the patient 's condition and/or to evaluate & treat vital organ system(s) failure or risk of failure.
--- NOTE | 2017-12-05 16:38 | PN ---
Progress Note, Physician History of Present Illness: Pt seen and examined. He remains in the ICU. - Current Medication List Current Medications: Active Medications Acetaminophen (Tylenol -) 650 mg PO Q6H PRN PRN Reason: FEVER Last Admin: 12/01/17 10:16 Dose: 650 mg Acetaminophen (Ofirmev Injection -) 1,000 mg IVPB Q6H PRN PRN Reason: FEVER Last Admin: 12/05/17 03:47 Dose: 1,000 mg Albuterol/Ipratropium (Duoneb -) 1 amp NEB RQID [facility] Last Admin: 12/05/17 16:17 Dose: 1 amp Amino Acids (Prosource No Carb Liquid Pkt) 30 ml PO BID@0800,1730 [facility] Last Admin: 12/05/17 10:02 Dose: 30 ml Apixaban (Eliquis -) 5 mg PO BID [facility] Last Admin: 12/04/17 21:23 Dose: 5 mg Artificial Tears (Artificial Tears Ointment -) 1 applic OU HS [facility] Last Admin: 12/04/17 21:36 Dose: 1 applic Chlorhexidine Gluconate (Hibiclens For Decolonization -) 1 applic TP HS [facility] Last Admin: 12/04/17 21:23 Dose: 1 applic Ferrous Sulfate (Feosol) 300 mg GT DAILY [facility] Last Admin: 12/05/17 10:03 Dose: 300 mg Piperacillin Sod/Tazobactam (Sod 3.375 gm/ Dextrose) 50 mls @ 100 mls/hr IVPB Q8H-IV [facility] PRN Reason: Protocol Last Admin: 12/05/17 10:03 Dose: 100 mls/hr Insulin Aspart (Novolog Vial Sliding Scale -) 1 vial SQ ACHS [facility] PRN Reason: Protocol Last Admin: 12/05/17 10:29 Dose: Not Given Insulin Detemir (Levemir Vial) 10 units SQ HS [facility] Last Admin: 12/04/17 21:37 Dose: 10 units Lactobacillus Acidophilus (Bacid -) 1 tab PEG DAILY [facility] Last Admin: 12/05/17 10:02 Dose: 1 tab Metoprolol Tartrate (Lopressor Injection -) 5 mg IVPUSH Q4H PRN PRN Reason: HYPERTENSION Last Admin: 12/05/17 03:33 Dose: 5 mg Prednisone (Deltasone -) 40 mg PO DAILY [facility] Last Admin: 12/05/17 10:02 Dose: 40 mg Quetiapine Fumarate (Seroquel -) 25 mg PO HS [facility] Last Admin: 12/04/17 21:23 Dose: 25 mg Ranitidine HCl (Zantac -) 150 mg PO DAILY [facility] Last Admin: 12/05/17 10:03 Dose: 150 mg Roflumilast (Daliresp -) 500 mcg NGT DAILY [facility] Last Admin: 12/05/17 10:02 Dose: 500 mcg Saliva Substitute (Mouthkote Solution -) 1 applic MM DAILY [facility] Last Admin: 12/05/17 10:04 Dose: 1 applic - Objective Vital Signs: Vital Signs Temperature 99.3 F 12/05/17 14:00 Pulse Rate 115 H 12/05/17 14:00 Respiratory Rate 26 H 12/05/17 16:18 Blood Pressure 127/65 12/05/17 14:00 O2 Sat by Pulse Oximetry (%) 98 12/05/17 10:45 Constitutional: Yes: Calm Eyes: Yes: Conjunctiva Clear HENT: Yes: Atraumatic Neck: Yes: Other (trache) Cardiovascular: Yes: S1, S2 Respiratory: Yes: Mechanically Ventilated Gastrointestinal: Yes: Soft, Other (peg) Musculoskeletal: Yes: Muscle Weakness Neurological: Yes: Oriented Labs: CBC, BMP 12/05/17 05:30 12/05/17 05:30 INR, PTT INR 1.59 (0.82-1.09) H 12/05/17 05:30 Problem List - Problems (1) Hypernatremia Code(s): E87.0 - HYPEROSMOLALITY AND HYPERNATREMIA (2) MIRLANDE (acute kidney injury) Code(s): N17.9 - ACUTE KIDNEY FAILURE, UNSPECIFIED (3) Acute respiratory failure with hypoxia Code(s): J96.01 - ACUTE RESPIRATORY FAILURE WITH HYPOXIA (4) Diabetes Code(s): E11.9 - TYPE 2 DIABETES MELLITUS WITHOUT COMPLICATIONS (5) Failure to thrive Code(s): [id number] - Assessment/Plan Current Medications Generic Name Dose Route Start Last Admin Trade Name Freq PRN Reason Stop Dose Admin Acetaminophen 650 mg 11/22/17 23:20 12/01/17 10:16 Tylenol - PO 650 mg Q6H PRN Administration FEVER Acetaminophen 1,000 mg 11/22/17 23:20 12/05/17 03:47 Ofirmev Injection - IVPB 1,000 mg Q6H PRN Administration FEVER Albuterol/Ipratropium 1 amp 11/23/17 08:00 12/05/17 16:17 Duoneb - NEB 1 amp RQID [facility] Administration Amino Acids 30 ml 12/04/17 17:30 12/05/17 10:02 Prosource No Carb Liquid Pkt PO 30 ml BID@0800,1730 [facility] Administration Apixaban 5 mg 11/23/17 10:00 12/04/17 21:23 Eliquis - PO 5 mg BID [facility] Administration Artificial Tears 1 applic 11/23/17 22:00 12/04/17 21:36 Artificial Tears Ointment - OU 1 applic HS [facility] Administration Chlorhexidine Gluconate 1 applic 11/22/17 22:00 12/04/17 21:23 Hibiclens For Decolonization - TP 1 applic HS [facility] Administration Ferrous Sulfate 300 mg 11/23/17 10:00 12/05/17 10:03 Feosol GT 300 mg DAILY [facility] Administration Piperacillin Sod/Tazobactam 50 mls @ 100 mls/hr 12/01/17 14:00 12/05/17 10:03 Sod 3.375 gm/ Dextrose IVPB 100 mls/hr Q8H-IV [facility] Administration Protocol Insulin Aspart 1 vial 11/23/17 07:00 12/05/17 10:29 Novolog Vial Sliding Scale - SQ Not Given ACHS [facility] Protocol Insulin Detemir 10 units 12/04/17 22:00 12/04/17 21:37 Levemir Vial SQ 10 units HS [facility] Administration Lactobacillus Acidophilus 1 tab 11/23/17 10:00 12/05/17 10:02 Bacid - PEG 1 tab DAILY [facility] Administration Metoprolol Tartrate 5 mg 11/22/17 23:20 12/05/17 03:33 Lopressor Injection - IVPUSH 5 mg Q4H PRN Administration HYPERTENSION Prednisone 40 mg 11/23/17 10:00 12/05/17 10:02 Deltasone - PO 40 mg DAILY [facility] Administration Quetiapine Fumarate 25 mg 11/23/17 22:00 12/04/17 21:23 Seroquel - PO 25 mg HS [facility] Administration Ranitidine HCl 150 mg 11/23/17 10:00 12/05/17 10:03 Zantac - PO 150 mg DAILY [facility] Administration Roflumilast 500 mcg 11/23/17 10:00 12/05/17 10:02 Daliresp - NGT 500 mcg DAILY [facility] Administration Saliva Substitute 1 applic 11/23/17 10:00 12/05/17 10:04 Mouthkote Solution - MM 1 applic DAILY [facility] Administration Impression 1. MIRLANDE 2. hypernatremia 3. chronic resp failure s/p trache 4. s/p trache 5. s/p peg 6. sepsis 7. interstitial lung disease 8. chf diastolic 9. DM 10. lactic acidosis 11. PNA Plan - sodium is better today - cont current feeds - hypoxia can contribute to elevated lactic acid - avoid fluids - vent support - prognosis is poor Dr Gan
--- NOTE | 2017-12-05 17:56 | PN ---
Teaching Attending Note Name of Resident: Russell Anderson ATTENDING PHYSICIAN STATEMENT I saw and evaluated the patient. I reviewed the resident's note and discussed the case with the resident. I agree with the resident's findings and plan as documented. SUBJECTIVE:asymptomatic. denies CP or difficulty breathing OBJECTIVE: Last Vital Signs Temp Pulse Resp BP Pulse Ox 99.3 F 83 26 H 128/63 98 12/05/17 14:00 12/05/17 16:00 12/05/17 16:18 12/05/17 16:00 12/05/17 10:45 General NAD, mild tachypnic. +using accessory muscles to breathe Lungs coarse breath sounds anteriorly ASSESSMENT AND PLAN: 62 yo M active smoker, pMHx of NIDDM, PUD, BPH admitted with acute hypoxic respiratory failure, and extensive RLE DVT 1. Acute hypoxic respiratory failure, suspect from ?ILD with pneumonitis- s/p intubation 11/03 with failed weaning and now s/p trach 11/07. trach exchanged 11/19. currently requiring 100% Fio2 after episode of septic shock with possible ARDS. cont high vent settings. management per pulm. goal SpO2 >88%. on pred 40mg 2. RLE DVT- s/p IVC filter 10/20, thrombectmy 10/24. on eliquis 5mg BID. monitor for bleeding 3. Septic shock due to aspiration PNA- currently off pressors. continues to ahve intermittent temp spikes. cont zosyn day 5. ID on board. cont deep frequent suctioning. 4. Acute diastolic heart failure- s/p intermittent lasix IV. clinically euvolemic. will give dose in between PRBC 5. Iron deficiency anemia and anemia of chronic disease- possible due to frequent blood draws and comorbidities. additional drop in hgb. likely symptomatic. slightly tachynpic on exam. will give 2 units PRBC. check post transfusion PRBC. lasix inbetween. cont iron supplementation 6. Hypernatremia-resolved. decrease free water flushes 7. antibiotic assoc Diarrhea-likely due to prolonged abx use. now resolved. on bacid and banatol. 8. continuous nicotine dependence- nicotine patch 9. cachexia- severe malnutrition evident by body habitus. lost 40+lbs this hospital stay. s/p PEG 11/09. tolerating TF 10. DM- improved. cont to titrate insulin as needed. 11. Agitation- intermittent periods of agitation. off 2 point restraints. on seroquel HS. 12. PPX- ppi/eliquis 13. Poor overall prognosis. Daughter has been unreachable for palliative care discussion. however did discuss with her last week to anticipate call and she needs to speak with her. will consult ethics at this time. The care of this patient involved high complexity decision making to prevent further life threatening deterioration of the patient's condition and/or to evaluate & treat vital organ system(s) failure or risk of failure. 38 minutes
[2017-12-05 19:41] LABS: ANION GAP 3 (8-16); BLOOD UREA NITROGEN 39 mg/dL (7-18); CALCIUM 7.5 mg/dL (8.5-10.1); CHLORIDE 100 mmol/L (98-107); CO2 41 mmol/L (21-32); CREATININE 0.8 mg/dL (0.7-1.3); SODIUM 144 mmol/L (136-145)
[2017-12-05 19:53] LABS: GLUCOSE,RANDOM 371 mg/dL (74-106)
[2017-12-05] MEDS: CHLORHEXIDINE GLUCONATE 4% CLEANSER FOR DECOLONIZATION TP SCH (21:09)
[2017-12-05] MEDS: MINERAL OIL/PETROLATUM,WHITE 3.5 GM TUBE OU SCH (21:10)
[2017-12-05] MEDS: QUEtiapine FUMARATE 25 MG TABLET (FP) PO SCH (21:12)
[2017-12-05] MEDS: INSULIN DETEMIR 100 UNITS/ML MDV SQ SCH (21:51)
[2017-12-06 01:14] LABS: HEMATOCRIT 31.4 % (35.4-49); HEMOGLOBIN 10.1 GM/dL (11.7-16.9); MCH 30.2 pg (25.7-33.7); MCHC 32.1 g/dl (32.0-35.9); MEAN PLT VOLUME 11.7 fl (7.5-11.1); PLATELET COUNT 79 K/MM3 (134-434); RBC 3.34 M/mm3 (4.00-5.60); RDW 19.1 % (11.9-15.9); WHITE BLOOD COUNT 10.5 K/mm3 (4.0-10.0)
[2017-12-06] MEDS: PIPERACILLIN/TAZOB 3.375 GM 3.375 GM in DEXTROSE 5%-WATER - 50 ML IVPB SCH (01:27)
[2017-12-06 02:29] LABS: PLATELET ESTIMATE SLT DECREASE
[2017-12-06] MEDS: BANATROL PLUS POWDER PACKET PEG SCH ×3 (06:29→21:11)
[2017-12-06] MEDS: INSULIN SLIDING SCALE (NOVOLOG) 1 VIAL SQ SCH ×4 (06:30→22:18)
[2017-12-06 06:42] LABS: ARTERIAL BLD GAS O2 SATURATION 97.4 % (90-98.9); ARTERIAL BLOOD GAS BASE EXCESS 14.3 meq/l (-2-2); ARTERIAL BLOOD GAS PO2 95.5 mmHg (80-100); ARTERIAL BLOOD GAS pH 7.31 (7.35-7.45)
[2017-12-06 06:47] LABS: ALLENS TEST POSITIVE
--- NOTE | 2017-12-06 06:50 | PN ---
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 Prednisone 40mg - Current Medication List Current Medications: Active Medications Acetaminophen (Tylenol -) 650 mg PO Q6H PRN PRN Reason: FEVER Last Admin: 12/01/17 10:16 Dose: 650 mg Albuterol/Ipratropium (Duoneb -) 1 amp NEB RQID [facility] Last Admin: 12/05/17 21:15 Dose: 1 amp Amino Acids (Prosource No Carb Liquid Pkt) 30 ml PO BID@0800,1730 [facility] Last Admin: 12/05/17 17:20 Dose: 30 ml Apixaban (Eliquis -) 5 mg PO BID [facility] Last Admin: 12/04/17 21:23 Dose: 5 mg Artificial Tears (Artificial Tears Ointment -) 1 applic OU HS [facility] Last Admin: 12/05/17 21:10 Dose: 1 applic Chlorhexidine Gluconate (Hibiclens For Decolonization -) 1 applic TP HS [facility] Last Admin: 12/05/17 21:09 Dose: 1 applic Ferrous Sulfate (Feosol) 300 mg GT DAILY [facility] Last Admin: 12/05/17 10:03 Dose: 300 mg Piperacillin Sod/Tazobactam (Sod 3.375 gm/ Dextrose) 50 mls @ 100 mls/hr IVPB Q8H-IV [facility]ONAL PRN Reason: Protocol Last Admin: 12/06/17 01:27 Dose: 100 mls/hr Insulin Aspart (Novolog Vial Sliding Scale -) 1 vial SQ ACHS [facility]ON[facility] PRN Reason: Protocol Last Admin: 12/06/17 06:30 Dose: 2 units Insulin Detemir (Levemir Vial) 10 units SQ HS [facility] Last Admin: 12/05/17 21:51 Dose: 10 units Lactobacillus Acidophilus (Bacid -) 1 tab PEG DAILY [facility] Last Admin: 12/05/17 10:02 Dose: 1 tab Metoprolol Tartrate (Lopressor Injection -) 5 mg IVPUSH Q4H PRN PRN Reason: HYPERTENSION Last Admin: 12/05/17 03:33 Dose: 5 mg Prednisone (Deltasone -) 40 mg PO DAILY [facility] Last Admin: 12/05/17 10:02 Dose: 40 mg Quetiapine Fumarate (Seroquel -) 25 mg PO HS [facility] Last Admin: 12/05/17 21:12 Dose: 25 mg Ranitidine HCl (Zantac -) 150 mg PO DAILY [facility] Last Admin: 12/05/17 10:03 Dose: 150 mg Roflumilast (Daliresp -) 500 mcg NGT DAILY [facility] Last Admin: 12/05/17 10:02 Dose: 500 mcg Saliva Substitute (Mouthkote Solution -) 1 applic MM DAILY [facility] Last Admin: 12/05/17 10:04 Dose: 1 applic - Objective Vital Signs: Vital Signs Temperature 97.3 F L 12/06/17 06:00 Pulse Rate 99 H 12/06/17 06:00 Respiratory Rate 23 12/06/17 06:00 Blood Pressure 116/63 12/06/17 06:00 O2 Sat by Pulse Oximetry (%) 99 12/05/17 20:57 Neck: Yes: Other (Tracheostomy) Cardiovascular: Yes: Regular Rate and Rhythm, S1, S2. No: Murmur Respiratory: Yes: WNL, Regular, CTA Bilaterally, Rhonchi Gastrointestinal: Yes: Soft, Other (PEG). No: Tenderness Edema: No Labs: CBC, BMP 12/06/17 01:00 12/05/17 18:00 INR, PTT INR 1.59 (0.82-1.09) H 12/05/17 05:30 Problem List - Problems (1) Interstitial lung disease Code(s): J84.9 - INTERSTITIAL PULMONARY DISEASE, UNSPECIFIED (2) Acute respiratory failure with hypoxia Code(s): J96.01 - ACUTE RESPIRATORY FAILURE WITH HYPOXIA (3) Pneumonia Code(s): J18.9 - PNEUMONIA, UNSPECIFIED ORGANISM (4) Deep vein thrombosis Code(s): I82.409 - ACUTE EMBOLISM AND THOMBOS UNSP DEEP VN UNSP LOWER EXTREMITY Assessment/Plan Microbiology 12/02/17 20:00 Urine For Antigen Detection Legionella Antigen - Final 12/02/17 20:00 Urine For Antigen Detection Streptococcus pneumoniae Antigen (M - Final 12/02/17 20:00 Sputum - Endotrachea Suction/Ventilator Gram Stain - Final 12/02/17 20:00 Sputum - Endotrachea Suction/Ventilator Sputum Culture - Final Stenotrophomon.(X.)Maltophilia 12/02/17 20:11 Sputum - Endotrachea Suction/Ventilator YANCI Preparation - Preliminary 12/02/17 20:11 Sputum - Endotrachea Suction/Ventilator Fungal Culture - Preliminary Laboratory Tests 12/05/17 12/06/17 18:00 01:00 WBC 10.5 H Hgb 10.1 L D Plt Count 79 L BUN 39 H Creatinine 0.8 D Assessment Chronic interstitial lung disease with suspected superimposed bacterial infection NOte the sputum 12/02 has Stenotrophomon Maltophilia and while this could be colonization of the trach I would assume could be a pathogen "player" here so treat this Plan Discontinue the Pip Tazobactam and substitute Levofloxacin which will treat both the sputum isolate and the urine Klebs. Critical care time spent 35 minutes Umer IVY
[2017-12-06 06:51] LABS: ARTERIAL BLOOD GAS PCO2 89.3 mmHg (35-45)
[2017-12-06 07:03] LABS: HEMATOCRIT 28.6 % (35.4-49); HEMOGLOBIN 9.1 GM/dL (11.7-16.9); MCHC 31.7 g/dl (32.0-35.9); MEAN CELL VOLUME 94.7 fl (80-96); MEAN PLT VOLUME 11.6 fl (7.5-11.1); PLATELET COUNT 71 K/MM3 (134-434); RBC 3.02 M/mm3 (4.00-5.60); WHITE BLOOD COUNT 10.2 K/mm3 (4.0-10.0)
[2017-12-06 07:25] LABS: INR 1.29 (0.82-1.09); PROTHROMBIN TIME (PATIENT) 14.6 SEC (9.98-11.88)
[2017-12-06 07:59] LABS: ALBUMIN 1.6 g/dl (3.4-5.0); ANION GAP 2 (8-16); BLOOD UREA NITROGEN 38 mg/dL (7-18); CALCIUM 7.5 mg/dL (8.5-10.1); CHLORIDE 100 mmol/L (98-107); CO2 44 mmol/L (21-32); POTASSIUM 3.5 mmol/L (3.5-5.1); SODIUM 146 mmol/L (136-145)
[2017-12-06 08:04] LABS: ALK PHOS 152 U/L (45-117); BILIRUBIN,TOTAL 0.6 mg/dL (0.2-1.0); CREATININE 0.6 mg/dL (0.7-1.3); GLUCOSE,RANDOM 205 mg/dL (74-106); PHOSPHOROUS 2.4 mg/dL (2.5-4.9); SGOT/AST 25 U/L (15-37); SGPT/ALT 222 U/L (12-78); TOT PROT 6.8 g/dl (6.4-8.2)
[2017-12-06] MEDS: ALBUTEROL SO4 2.5/IPRATROPIUM 0.5 INH SOL 3 ML VIAL.NEB. NEB SCH ×4 (08:23→20:34)
[2017-12-06] MEDS ORDERED: POTASSIUM CHLORIDE TABS 20 MEQ TABLET.ER (FP) PO ONE (08:55)
--- NOTE | 2017-12-06 09:37 | PN ---
Physical Exam: SUBJECTIVE: Patient seen and examined at bed side. Denies chest pain, abdominal pain, nausea or vomiting. Trached and vent settings at A/C 14/450/100/8 Overnight: Had Temp 100.9 F at 8pm last night, since then he has been afebrile. As per RN. no other overnight events. OBJECTIVE: Vital Signs Period Temp Pulse Resp BP Sys/Sutton Pulse Ox Last 24 Hr 97.3 F-100.9 F 76-118 14-29 109-169/60-71 97-100 GENERAL: The patient is awake, trached and vented, thinly built. HEAD: Normal with no signs of trauma. EYES: EOM intact, mild pallor, no icterus. ENT: Ears normal, dry mucous membranes. NECK: Supple, trach in place, no leak. LUNGS: B/L coarse breath sounds equal, no wheeze. HEART: Tachycardic, Regular rate and rhythm, S1, S2 with soft systolic murmur at second ICS. ABDOMEN: Peg in place, Soft, nontender, nondistended, normoactive bowel sounds, no guarding, no rebound, no hepatosplenomegaly, no masses. EXTREMITIES: 2+ pulses, warm, well-perfused, no edema. NEUROLOGICAL: No facial droop, b/l sensation intact. SKIN: Warm, dry, normal turgor, no rashes or lesions noted Laboratory Results - last 24 hr 10/21/17 12/05/17 12/05/17 05:50 05:30 09:40 WBC RBC Hgb Hct MCV MCH MCHC RDW Plt Count MPV Total Counted 100 Neutrophils % Neutrophils % (Manual) 80.0 D Band Neutrophils % 5.0 Lymphocytes % Lymphocytes % (Manual) 8.0 D Monocytes % (Manual) 4 Metamyelocytes 3 H D Platelet Estimate Decreased PT with INR INR PTT (Actin FS) Puncture Site ABG pH ABG pCO2 at Pt Temp ABG pO2 at Pt Temp ABG HCO3 ABG O2 Sat (Measured) ABG O2 Content ABG Base Excess Dionte Test O2 Delivery Device Oxygen Flow Rate Vent Mode Vent Rate Mechanical Rate PEEP Pressure Support Vent Sodium Potassium Chloride Carbon Dioxide Anion Gap BUN Creatinine Creat Clearance w eGFR POC Glucometer Random Glucose Lactic Acid Calcium Phosphorus Magnesium Total Bilirubin AST ALT Alkaline Phosphatase Total Protein Albumin Globulin 4.9 Blood Type O POSITIVE Antibody Screen Negative Crossmatch See Detail 12/05/17 12/05/17 12/05/17 10:21 17:35 18:00 WBC RBC Hgb Hct MCV MCH MCHC RDW Plt Count MPV Total Counted Neutrophils % Neutrophils % (Manual) Band Neutrophils % Lymphocytes % Lymphocytes % (Manual) Monocytes % (Manual) Metamyelocytes Platelet Estimate PT with INR INR PTT (Actin FS) Puncture Site ABG pH ABG pCO2 at Pt Temp ABG pO2 at Pt Temp ABG HCO3 ABG O2 Sat (Measured) ABG O2 Content ABG Base Excess Dionte Test O2 Delivery Device Oxygen Flow Rate Vent Mode Vent Rate Mechanical Rate PEEP Pressure Support Vent Sodium 144 Potassium 4.0 Chloride 100 Carbon Dioxide 41 H Anion Gap 3 L BUN 39 H Creatinine 0.8 D Creat Clearance w eGFR POC Glucometer 160.41877 > 400 Random Glucose 371 H* D Lactic Acid Calcium 7.5 L Phosphorus Magnesium Total Bilirubin AST ALT Alkaline Phosphatase Total Protein Albumin Globulin Blood Type Antibody Screen Crossmatch 12/06/17 12/06/17 12/06/17 01:00 06:00 06:45 WBC 10.5 H 10.2 H RBC 3.34 L D 3.02 L Hgb 10.1 L D 9.1 L Hct 31.4 L D 28.6 L MCV 94.0 D 94.7 MCH 30.2 30.0 MCHC 32.1 31.7 L RDW 19.1 H D 19.0 H Plt Count 79 L 71 L MPV 11.7 H 11.6 H Total Counted 100 Neutrophils % No Result Required. Neutrophils % (Manual) 43.0 D Band Neutrophils % 30.0 Lymphocytes % No Result Required. Lymphocytes % (Manual) 17.0 D Monocytes % (Manual) 10 D Metamyelocytes Platelet Estimate Slt decrease PT with INR INR PTT (Actin FS) Puncture Site Right radial ABG pH 7.31 L ABG pCO2 at Pt Temp 89.3 H* D ABG pO2 at Pt Temp 95.5 D ABG HCO3 43.7 H* ABG O2 Sat (Measured) 97.4 ABG O2 Content 15.2 ABG Base Excess 14.3 H Dionte Test Positive O2 Delivery Device Mech. vent Oxygen Flow Rate 100 Vent Mode A/c Vent Rate 14 Mechanical Rate Y PEEP 8.0 Pressure Support Vent 450 Sodium Potassium Chloride Carbon Dioxide Anion Gap BUN Creatinine Creat Clearance w eGFR POC Glucometer Random Glucose Lactic Acid Calcium Phosphorus Magnesium Total Bilirubin AST ALT Alkaline Phosphatase Total Protein Albumin Globulin Blood Type Antibody Screen Crossmatch 12/06/17 12/06/17 12/06/17 06:45 06:45 06:45 WBC RBC Hgb Hct MCV MCH MCHC RDW Plt Count MPV Total Counted Neutrophils % Neutrophils % (Manual) Band Neutrophils % Lymphocytes % Lymphocytes % (Manual) Monocytes % (Manual) Metamyelocytes Platelet Estimate PT with INR 14.60 H INR 1.29 H PTT (Actin FS) 31.0 Puncture Site ABG pH ABG pCO2 at Pt Temp ABG pO2 at Pt Temp ABG HCO3 ABG O2 Sat (Measured) ABG O2 Content ABG Base Excess Dionte Test O2 Delivery Device Oxygen Flow Rate Vent Mode Vent Rate Mechanical Rate PEEP Pressure Support Vent Sodium 146 H Potassium 3.5 Chloride 100 Carbon Dioxide 44 H Anion Gap 2 L BUN 38 H Creatinine 0.6 L D Creat Clearance w eGFR > 60 POC Glucometer Random Glucose 205 H D Lactic Acid 2.1 H Calcium 7.5 L Phosphorus 2.4 L D Magnesium 2.0 Total Bilirubin 0.6 AST 25 D ALT 222 H D Alkaline Phosphatase 152 H Total Protein 6.8 Albumin 1.6 L Globulin Blood Type Antibody Screen Crossmatch Active Medications Generic Name Dose Route Start Last Admin Trade Name Freq PRN Reason Stop Dose Admin Acetaminophen 650 mg 11/22/17 23:20 12/01/17 10:16 Tylenol - PO 650 mg Q6H PRN Administration FEVER Albuterol/Ipratropium 1 amp 11/23/17 08:00 12/06/17 08:23 Duoneb - NEB 1 amp RQID [facility]ON[facility] Administration Amino Acids 30 ml 12/04/17 17:30 12/05/17 17:20 Prosource No Carb Liquid Pkt PO 30 ml BID@0800,1730 [facility] Administration Apixaban 5 mg 12/06/17 10:00 Eliquis - PO BID SONAL Artificial Tears 1 applic 11/23/17 22:00 12/05/17 21:10 Artificial Tears Ointment - OU 1 applic HS [facility] Administration Chlorhexidine Gluconate 1 applic 11/22/17 22:00 12/05/17 21:09 Hibiclens For Decolonization - TP 1 applic HS [facility] Administration Ferrous Sulfate 300 mg 11/23/17 10:00 12/05/17 10:03 Feosol GT 300 mg DAILY [facility] Administration Levofloxacin 500 mg in 100 mls @ 100 mls/hr 12/06/17 10:00 Levaquin 500 Mg Premixed Ivpb - IVPB DAILY [facility] Insulin Aspart 1 vial 11/23/17 07:00 12/06/17 06:30 Novolog Vial Sliding Scale - SQ 2 units ACHS [facility]ONAL Administration Protocol Insulin Detemir 10 units 12/04/17 22:00 12/05/17 21:51 Levemir Vial SQ 10 units HS [facility] Administration Lactobacillus Acidophilus 1 tab 11/23/17 10:00 12/05/17 10:02 Bacid - PEG 1 tab DAILY [facility] Administration Metoprolol Tartrate 5 mg 11/22/17 23:20 12/05/17 03:33 Lopressor Injection - IVPUSH 5 mg Q4H PRN Administration HYPERTENSION Prednisone 40 mg 11/23/17 10:00 12/05/17 10:02 Deltasone - PO 40 mg DAILY [facility] Administration Quetiapine Fumarate 25 mg 11/23/17 22:00 12/05/17 21:12 Seroquel - PO 25 mg HS [facility]ONAL Administration Ranitidine HCl 150 mg 11/23/17 10:00 12/05/17 10:03 Zantac - PO 150 mg DAILY [facility] Administration Roflumilast 500 mcg 11/23/17 10:00 12/05/17 10:02 Daliresp - NGT 500 mcg DAILY [facility] Administration Saliva Substitute 1 applic 11/23/17 10:00 12/05/17 10:04 Mouthkote Solution - MM 1 applic DAILY [facility] Administration ASSESSMENT/PLAN: Patient is a 62 year of M w/ hx of active smoking, NIDDM, PUD, and BPH, ILD who presented with SOB, found to have acute hypoxic respiratory failure, extensive RLE DVT, sepsis likely 2/2 aspiration PNA, and acute diastolic CHF. # Neurology: Much awake than yesterday. No active issues # Respiratory Acute hypoxic respiratory failure likely secondary to ILD with superimposed PNA Trached and Vented: settings A/C 14/400/100/5 Questionable leak from trach as he doesn't have a good tidal volume. Dr. Simpson consult for reevaluation of trach. Has been changed 4 times so far. 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 No intervention at this time. Acute diastolic heart failure: clinically euvolemic # Hematology: RLE DVT s/p IVC filter 10/20, thrombectmy 10/24 Eliquis restarted today 5mg PO BID, was stopped yesterday due to Hb-6.9 Anemia Hb improved. s/p 2 PRBC yesterday. cont iron supplementation # Active smoker nicotine patch #cachexia severe malnutrition s/p PEG 11/09, continue tube feeds. Tube feed 2 loida # Endocrine- Diabetes Mellitus cont levemir 10 units HS ISS, watch for hypoglycemic episodes # FEN Not on IV fluids Electrolytes Hypernatremia, likely due to dehydration, continue Tube feeds # Prophylaxis For DVT: Already on Eliquis For GI: on Ranitidine # Dispo Poor overall prognosis Dr. Stringer consult placed to discuss goals of care with family. # Code Status: Full Code Illness, Investigation and Plan of care explained to the patient and family. They verbalized understanding. Case seen and discussed with Dr. Lara. Visit type - Emergency Visit Emergency Visit: Yes ED Registration Date: 10/17/17 Care time: The patient presented to the Emergency Department on the above date and was hospitalized for further evaluation of their emergent condition. - New Patient This patient is new to me today: No - Critical Care Critical Care patient: Yes Total Critical Care Time (in minutes): 45 Critical Care Statement: The care of this patient involved high complexity decision making to prevent further life threatening deterioration of the patient 's condition and/or to evaluate & treat vital organ system(s) failure or risk of failure.
[2017-12-06] MEDS ORDERED: APIXABAN 5 MG TABLET PO SCH (10:00)
[2017-12-06] MEDS: LACTOBACILLUS ACIDOPHILUS 1 EACH TAB (FP) PEG SCH (10:09)
[2017-12-06] MEDS: predniSONE 20 MG TABLET (UD) PO SCH (10:09)
[2017-12-06] MEDS: APIXABAN 2.5 MG TABLET PO SCH ×2 (10:09→21:10)
[2017-12-06] MEDS: AMINO ACIDS/PROTEIN HYDROLYS 30 ML LIQUID.PKT PO SCH (10:09)
[2017-12-06] MEDS: LYTES/YERBA SANTA 240 ML BOTTLE MM SCH (10:10)
[2017-12-06] MEDS: RANITIDINE HCL 150 MG TABLET (FP) PO SCH (10:10)
[2017-12-06] MEDS ORDERED: PT OWN MED DRAWER 7, Y5N ONE (10:31)
[2017-12-06] MEDS: ROFLUMILAST 500 MCG TABLET NGT SCH (10:33)
[2017-12-06] MEDS: FERROUS SO4 300 MG/5 ML ORAL SOLN UNIT DOSE CUPS GT SCH (10:35)
--- NOTE | 2017-12-06 12:52 | PN ---
Teaching Attending Note Name of Resident: Suzy Collado ATTENDING PHYSICIAN STATEMENT I saw and evaluated the patient. I reviewed the resident's note and discussed the case with the resident. I agree with the resident's findings and plan as documented. SUBJECTIVE: Pt seen and examined in the ICU. Remains vented on volume assist control with 100% FiO2. Low grade fever overnight. OBJECTIVE: Last Vital Signs Temp Pulse Resp BP Pulse Ox 99.2 F 102 H 30 H 107/58 99 12/06/17 10:00 12/06/17 10:00 12/06/17 10:53 12/06/17 10:00 12/05/17 20:57 Intake & Output 12/03/17 12/04/17 12/05/17 12/06/17 23:59 23:59 23:59 23:59 Intake Total 3318 2620 2600 1110 Output Total 4381 609 3800 Balance 1798 1820 1550 1110 Weight 37.739 kg 36.151 kg 37.966 kg 36.968 kg Gen: vented, awake, tachypneic Heart: tachycardic, regular Lung: scattered rhonchi Abd: soft, nontender Ext: no edema CBC, BMP 12/06/17 06:45 12/06/17 06:45 Active Medications Acetaminophen (Tylenol -) 650 mg PO Q6H PRN PRN Reason: FEVER Last Admin: 12/01/17 10:16 Dose: 650 mg Albuterol/Ipratropium (Duoneb -) 1 amp NEB RQID [facility] Last Admin: 12/06/17 11:17 Dose: 1 amp Amino Acids (Prosource No Carb Liquid Pkt) 30 ml PO BID@0800,1730 [facility] Last Admin: 12/06/17 10:09 Dose: 30 ml Apixaban (Eliquis -) 5 mg PO BID [facility] Last Admin: 12/06/17 10:09 Dose: 5 mg Artificial Tears (Artificial Tears Ointment -) 1 applic OU HS [facility] Last Admin: 12/05/17 21:10 Dose: 1 applic Chlorhexidine Gluconate (Hibiclens For Decolonization -) 1 applic TP HS [facility] Last Admin: 12/05/17 21:09 Dose: 1 applic Ferrous Sulfate (Feosol) 300 mg GT DAILY [facility] Last Admin: 12/06/17 10:35 Dose: 300 mg Levofloxacin (Levaquin 500 Mg Premixed Ivpb -) 500 mg in 100 mls @ 100 mls/hr IVPB DAILY [facility] Last Admin: 12/06/17 10:10 Dose: 100 mls/hr Insulin Aspart (Novolog Vial Sliding Scale -) 1 vial SQ ACHS [facility] PRN Reason: Protocol Last Admin: 12/06/17 06:30 Dose: 2 units Insulin Detemir (Levemir Vial) 10 units SQ HS [facility] Last Admin: 12/05/17 21:51 Dose: 10 units Lactobacillus Acidophilus (Bacid -) 1 tab PEG DAILY [facility] Last Admin: 12/06/17 10:09 Dose: 1 tab Metoprolol Tartrate (Lopressor Injection -) 5 mg IVPUSH Q4H PRN PRN Reason: HYPERTENSION Last Admin: 12/05/17 03:33 Dose: 5 mg Prednisone (Deltasone -) 30 mg PO DAILY [facility] Quetiapine Fumarate (Seroquel -) 25 mg PO HS [facility] Last Admin: 12/05/17 21:12 Dose: 25 mg Ranitidine HCl (Zantac -) 150 mg PO DAILY [facility] Last Admin: 12/06/17 10:10 Dose: 150 mg Roflumilast (Daliresp -) 500 mcg NGT DAILY [facility] Last Admin: 12/06/17 10:33 Dose: 500 mcg Saliva Substitute (Mouthkote Solution -) 1 applic MM DAILY [facility] Last Admin: 12/06/17 10:10 Dose: 1 applic ASSESSMENT AND PLAN: Acute Hypoxic Respiratory Failure s/p Tracheostomy Pneumonia treated Sepsis Interstitial Lung Disease Acute Diastolic Heart Failure improved Acute Kidney Injury Lactic Acidosis resolved DM Anemia RLE DVT - antibiotics per ID - f/u pending cultures - monitor urine output, creatinine - taper prednisone, decrease to 30mg daily - anxiolytics, seroquel qHS - enteral feeds - titrate levemir - continue anticoagulation, monitor H/H - swallow eval for possible PO intake when respiratory status more stable - taper FiO2 to keep SpO2 >90% - not a candidate for weaning at this time due to high oxygen requirements - bedside PT - DVT/GI prophylaxis - continue discussions regarding goals of care as pt with clinical deterioration and limited options - continue ICU monitoring for now critical care time spent in reviewing chart, evaluating patient and formulating plan 35 min Problem List - Problems (1) Acute respiratory failure with hypoxia Code(s): J96.01 - ACUTE RESPIRATORY FAILURE WITH HYPOXIA (2) Pneumonia Code(s): J18.9 - PNEUMONIA, UNSPECIFIED ORGANISM (3) Diabetes Code(s): E11.9 - TYPE 2 DIABETES MELLITUS WITHOUT COMPLICATIONS
--- NOTE | 2017-12-06 13:55 | PN ---
Progress Note, Physician History of Present Illness: Pt seen and examined at bedside. He is awake. He remains in the ICU. - Current Medication List Current Medications: Active Medications Acetaminophen (Tylenol -) 650 mg PO Q6H PRN PRN Reason: FEVER Last Admin: 12/01/17 10:16 Dose: 650 mg Albuterol/Ipratropium (Duoneb -) 1 amp NEB RQID [facility] Last Admin: 12/06/17 11:17 Dose: 1 amp Amino Acids (Prosource No Carb Liquid Pkt) 30 ml PO BID@0800,1730 [facility] Last Admin: 12/06/17 10:09 Dose: 30 ml Apixaban (Eliquis -) 5 mg PO BID [facility] Last Admin: 12/06/17 10:09 Dose: 5 mg Artificial Tears (Artificial Tears Ointment -) 1 applic OU HS [facility] Last Admin: 12/05/17 21:10 Dose: 1 applic Chlorhexidine Gluconate (Hibiclens For Decolonization -) 1 applic TP HS [facility] Last Admin: 12/05/17 21:09 Dose: 1 applic Ferrous Sulfate (Feosol) 300 mg GT DAILY [facility] Last Admin: 12/06/17 10:35 Dose: 300 mg Levofloxacin (Levaquin 500 Mg Premixed Ivpb -) 500 mg in 100 mls @ 100 mls/hr IVPB DAILY [facility] Last Admin: 12/06/17 10:10 Dose: 100 mls/hr Insulin Aspart (Novolog Vial Sliding Scale -) 1 vial SQ ACHS [facility] PRN Reason: Protocol Last Admin: 12/06/17 06:30 Dose: 2 units Insulin Detemir (Levemir Vial) 10 units SQ HS [facility] Last Admin: 12/05/17 21:51 Dose: 10 units Lactobacillus Acidophilus (Bacid -) 1 tab PEG DAILY [facility] Last Admin: 12/06/17 10:09 Dose: 1 tab Metoprolol Tartrate (Lopressor Injection -) 5 mg IVPUSH Q4H PRN PRN Reason: HYPERTENSION Last Admin: 12/05/17 03:33 Dose: 5 mg Prednisone (Deltasone -) 30 mg PO DAILY [facility] Quetiapine Fumarate (Seroquel -) 25 mg PO HS [facility] Last Admin: 12/05/17 21:12 Dose: 25 mg Ranitidine HCl (Zantac -) 150 mg PO DAILY [facility] Last Admin: 12/06/17 10:10 Dose: 150 mg Roflumilast (Daliresp -) 500 mcg NGT DAILY [facility] Last Admin: 12/06/17 10:33 Dose: 500 mcg Saliva Substitute (Mouthkote Solution -) 1 applic MM DAILY [facility] Last Admin: 12/06/17 10:10 Dose: 1 applic - Objective Vital Signs: Vital Signs Temperature 99.2 F 12/06/17 10:00 Pulse Rate 107 H 12/06/17 12:00 Respiratory Rate 26 H 12/06/17 13:10 Blood Pressure 135/67 12/06/17 12:00 O2 Sat by Pulse Oximetry (%) 99 12/05/17 20:57 Constitutional: Yes: Calm Eyes: Yes: Conjunctiva Clear Neck: Yes: Other (trache) Cardiovascular: Yes: S1, S2 Respiratory: Yes: Mechanically Ventilated Gastrointestinal: Yes: Soft, Other (peg) Musculoskeletal: Yes: Muscle Weakness Edema: No Neurological: Yes: Oriented Labs: CBC, BMP 12/06/17 06:45 12/06/17 06:45 INR, PTT INR 1.29 (0.82-1.09) H 12/06/17 06:45 Problem List - Problems (1) Hypernatremia Code(s): E87.0 - HYPEROSMOLALITY AND HYPERNATREMIA (2) MIRLANDE (acute kidney injury) Code(s): N17.9 - ACUTE KIDNEY FAILURE, UNSPECIFIED (3) Acute respiratory failure with hypoxia Code(s): J96.01 - ACUTE RESPIRATORY FAILURE WITH HYPOXIA (4) Diabetes Code(s): E11.9 - TYPE 2 DIABETES MELLITUS WITHOUT COMPLICATIONS (5) Failure to thrive Code(s): GSO8337 - Assessment/Plan Current Medications Generic Name Dose Route Start Last Admin Trade Name Freq PRN Reason Stop Dose Admin Acetaminophen 650 mg 11/22/17 23:20 12/01/17 10:16 Tylenol - PO 650 mg Q6H PRN Administration FEVER Albuterol/Ipratropium 1 amp 11/23/17 08:00 12/06/17 11:17 Duoneb - NEB 1 amp RQID [facility] Administration Amino Acids 30 ml 12/04/17 17:30 12/06/17 10:09 Prosource No Carb Liquid Pkt PO 30 ml BID@0800,1730 [facility] Administration Apixaban 5 mg 12/06/17 10:00 12/06/17 10:09 Eliquis - PO 5 mg BID [facility] Administration Artificial Tears 1 applic 11/23/17 22:00 12/05/17 21:10 Artificial Tears Ointment - OU 1 applic HS [facility] Administration Chlorhexidine Gluconate 1 applic 11/22/17 22:00 12/05/17 21:09 Hibiclens For Decolonization - TP 1 applic HS [facility] Administration Ferrous Sulfate 300 mg 11/23/17 10:00 12/06/17 10:35 Feosol GT 300 mg DAILY [facility] Administration Levofloxacin 500 mg in 100 mls @ 100 mls/hr 12/06/17 10:00 12/06/17 10:10 Levaquin 500 Mg Premixed Ivpb - IVPB 100 mls/hr DAILY [facility] Administration Insulin Aspart 1 vial 11/23/17 07:00 12/06/17 06:30 Novolog Vial Sliding Scale - SQ 2 units ACHS [facility] Administration Protocol Insulin Detemir 10 units 12/04/17 22:00 12/05/17 21:51 Levemir Vial SQ 10 units HS [facility] Administration Lactobacillus Acidophilus 1 tab 11/23/17 10:00 12/06/17 10:09 Bacid - PEG 1 tab DAILY [facility] Administration Metoprolol Tartrate 5 mg 11/22/17 23:20 12/05/17 03:33 Lopressor Injection - IVPUSH 5 mg Q4H PRN Administration HYPERTENSION Prednisone 30 mg 12/07/17 10:00 Deltasone - PO DAILY [facility] Quetiapine Fumarate 25 mg 11/23/17 22:00 12/05/17 21:12 Seroquel - PO 25 mg HS [facility] Administration Ranitidine HCl 150 mg 11/23/17 10:00 12/06/17 10:10 Zantac - PO 150 mg DAILY [facility] Administration Roflumilast 500 mcg 11/23/17 10:00 12/06/17 10:33 Daliresp - NGT 500 mcg DAILY [facility] Administration Saliva Substitute 1 applic 11/23/17 10:00 12/06/17 10:10 Mouthkote Solution - MM 1 applic DAILY [facility] Administration Impression 1. MIRLANDE 2. hypernatremia 3. chronic resp failure s/p trache 4. s/p trache 5. s/p peg 6. sepsis 7. interstitial lung disease 8. chf diastolic 9. DM 10. lactic acidosis 11. PNA Plan - cont free water with feeds - vent support - repeat labs in am - avoid fluids - vent support - prognosis is poor Dr Gan
--- NOTE | 2017-12-06 14:34 | PN ---
Physical Exam: SUBJECTIVE: Patient seen and examined Pt spiked a temp of 100.9 overnight. Pt still vented on 100% FiO2. Pt denying any subjective complaints. OBJECTIVE: Vital Signs Period Temp Pulse Resp BP Sys/Sutton Pulse Ox Last 24 Hr 97.3 F-100.9 F 76-118 14-30 107-169/58-71 98-99 GENERAL: cachectic elderly male, vented, sedated HEENT: trach in place LUNGS: upper airway gurgling sounds, mechanical breath sounds, tachypneic with accessory muscle use HEART: difficult to assess over mechanical breath sounds ABDOMEN: scaphoid abdomen, soft, NT, mesh from hernia surgery is easily palpable EXTREMITIES: 2+ pulses, warm, well-perfused, no edema, emaciated NEUROLOGICAL: Cranial nerves II through XII grossly intact Laboratory Results - last 24 hr 12/05/17 12/05/17 12/05/17 09:40 10:21 17:35 WBC RBC Hgb Hct MCV MCH MCHC RDW Plt Count MPV Total Counted Neutrophils % Neutrophils % (Manual) Band Neutrophils % Lymphocytes % Lymphocytes % (Manual) Monocytes % (Manual) Platelet Estimate PT with INR INR PTT (Actin FS) Puncture Site ABG pH ABG pCO2 at Pt Temp ABG pO2 at Pt Temp ABG HCO3 ABG O2 Sat (Measured) ABG O2 Content ABG Base Excess Dionte Test O2 Delivery Device Oxygen Flow Rate Vent Mode Vent Rate Mechanical Rate PEEP Pressure Support Vent Sodium Potassium Chloride Carbon Dioxide Anion Gap BUN Creatinine Creat Clearance w eGFR POC Glucometer [id number] > 400 Random Glucose Lactic Acid Calcium Phosphorus Magnesium Total Bilirubin AST ALT Alkaline Phosphatase Total Protein Albumin Blood Type O POSITIVE Antibody Screen Negative Crossmatch See Detail 12/05/17 12/05/17 12/06/17 18:00 21:50 01:00 WBC 10.5 H RBC 3.34 L D Hgb 10.1 L D Hct 31.4 L D MCV 94.0 D MCH 30.2 MCHC 32.1 RDW 19.1 H D Plt Count 79 L MPV 11.7 H Total Counted 100 Neutrophils % No Result Required. Neutrophils % (Manual) 43.0 D Band Neutrophils % 30.0 Lymphocytes % No Result Required. Lymphocytes % (Manual) 17.0 D Monocytes % (Manual) 10 D Platelet Estimate Slt decrease PT with INR INR PTT (Actin FS) Puncture Site ABG pH ABG pCO2 at Pt Temp ABG pO2 at Pt Temp ABG HCO3 ABG O2 Sat (Measured) ABG O2 Content ABG Base Excess Dionte Test O2 Delivery Device Oxygen Flow Rate Vent Mode Vent Rate Mechanical Rate PEEP Pressure Support Vent Sodium 144 Potassium 4.0 Chloride 100 Carbon Dioxide 41 H Anion Gap 3 L BUN 39 H Creatinine 0.8 D Creat Clearance w eGFR POC Glucometer 329.94276 Random Glucose 371 H* D Lactic Acid Calcium 7.5 L Phosphorus Magnesium Total Bilirubin AST ALT Alkaline Phosphatase Total Protein Albumin Blood Type Antibody Screen Crossmatch 12/06/17 12/06/17 12/06/17 06:00 06:17 06:45 WBC 10.2 H RBC 3.02 L Hgb 9.1 L Hct 28.6 L MCV 94.7 MCH 30.0 MCHC 31.7 L RDW 19.0 H Plt Count 71 L MPV 11.6 H Total Counted Neutrophils % Neutrophils % (Manual) Band Neutrophils % Lymphocytes % Lymphocytes % (Manual) Monocytes % (Manual) Platelet Estimate PT with INR INR PTT (Actin FS) Puncture Site Right radial ABG pH 7.31 L ABG pCO2 at Pt Temp 89.3 H* D ABG pO2 at Pt Temp 95.5 D ABG HCO3 43.7 H* ABG O2 Sat (Measured) 97.4 ABG O2 Content 15.2 ABG Base Excess 14.3 H Dionte Test Positive O2 Delivery Device Mech. vent Oxygen Flow Rate 100 Vent Mode A/c Vent Rate 14 Mechanical Rate Y PEEP 8.0 Pressure Support Vent 450 Sodium Potassium Chloride Carbon Dioxide Anion Gap BUN Creatinine Creat Clearance w eGFR POC Glucometer 223.94854 Random Glucose Lactic Acid Calcium Phosphorus Magnesium Total Bilirubin AST ALT Alkaline Phosphatase Total Protein Albumin Blood Type Antibody Screen Crossmatch 12/06/17 12/06/17 12/06/17 06:45 06:45 06:45 WBC RBC Hgb Hct MCV MCH MCHC RDW Plt Count MPV Total Counted Neutrophils % Neutrophils % (Manual) Band Neutrophils % Lymphocytes % Lymphocytes % (Manual) Monocytes % (Manual) Platelet Estimate PT with INR 14.60 H INR 1.29 H PTT (Actin FS) 31.0 Puncture Site ABG pH ABG pCO2 at Pt Temp ABG pO2 at Pt Temp ABG HCO3 ABG O2 Sat (Measured) ABG O2 Content ABG Base Excess Dionte Test O2 Delivery Device Oxygen Flow Rate Vent Mode Vent Rate Mechanical Rate PEEP Pressure Support Vent Sodium 146 H Potassium 3.5 Chloride 100 Carbon Dioxide 44 H Anion Gap 2 L BUN 38 H Creatinine 0.6 L D Creat Clearance w eGFR > 60 POC Glucometer Random Glucose 205 H D Lactic Acid 2.1 H Calcium 7.5 L Phosphorus 2.4 L D Magnesium 2.0 Total Bilirubin 0.6 AST 25 D ALT 222 H D Alkaline Phosphatase 152 H Total Protein 6.8 Albumin 1.6 L Blood Type Antibody Screen Crossmatch 12/06/17 13:55 WBC RBC Hgb Hct MCV MCH MCHC RDW Plt Count MPV Total Counted Neutrophils % Neutrophils % (Manual) Band Neutrophils % Lymphocytes % Lymphocytes % (Manual) Monocytes % (Manual) Platelet Estimate PT with INR INR PTT (Actin FS) Puncture Site ABG pH ABG pCO2 at Pt Temp ABG pO2 at Pt Temp ABG HCO3 ABG O2 Sat (Measured) ABG O2 Content ABG Base Excess Dionte Test O2 Delivery Device Oxygen Flow Rate Vent Mode Vent Rate Mechanical Rate PEEP Pressure Support Vent Sodium Potassium Chloride Carbon Dioxide Anion Gap BUN Creatinine Creat Clearance w eGFR POC Glucometer [phone] Random Glucose Lactic Acid Calcium Phosphorus Magnesium Total Bilirubin AST ALT Alkaline Phosphatase Total Protein Albumin Blood Type Antibody Screen Crossmatch Active Medications Generic Name Dose Route Start Last Admin Trade Name Freq PRN Reason Stop Dose Admin Acetaminophen 650 mg 11/22/17 23:20 12/01/17 10:16 Tylenol - PO 650 mg Q6H PRN Administration FEVER Albuterol/Ipratropium 1 amp 11/23/17 08:00 12/06/17 11:17 Duoneb - NEB 1 amp RQID SOANL Administration Amino Acids 30 ml 12/04/17 17:30 12/06/17 10:09 Prosource No Carb Liquid Pkt PO 30 ml BID@0800,1730 SONAL Administration Apixaban 5 mg 12/06/17 10:00 12/06/17 10:09 Eliquis - PO 5 mg BID SONAL Administration Artificial Tears 1 applic 11/23/17 22:00 12/05/17 21:10 Artificial Tears Ointment - OU 1 applic HS SONAL Administration Chlorhexidine Gluconate 1 applic 11/22/17 22:00 12/05/17 21:09 Hibiclens For Decolonization - TP 1 applic HS SONAL Administration Ferrous Sulfate 300 mg 11/23/17 10:00 12/06/17 10:35 Feosol GT 300 mg DAILY SONAL Administration Levofloxacin 500 mg in 100 mls @ 100 mls/hr 12/06/17 10:00 12/06/17 10:10 Levaquin 500 Mg Premixed Ivpb - IVPB 100 mls/hr DAILY SONAL Administration Insulin Aspart 1 vial 11/23/17 07:00 12/06/17 06:30 Novolog Vial Sliding Scale - SQ 2 units ACHS SONAL Administration Protocol Insulin Detemir 10 units 12/04/17 22:00 12/05/17 21:51 Levemir Vial SQ 10 units HS SONAL Administration Lactobacillus Acidophilus 1 tab 11/23/17 10:00 12/06/17 10:09 Bacid - PEG 1 tab DAILY [facility]ON[facility] Administration Metoprolol Tartrate 5 mg 11/22/17 23:20 12/05/17 03:33 Lopressor Injection - IVPUSH 5 mg Q4H PRN Administration HYPERTENSION Prednisone 30 mg 12/07/17 10:00 Deltasone - PO DAILY SONAL Quetiapine Fumarate 25 mg 11/23/17 22:00 12/05/17 21:12 Seroquel - PO 25 mg HS SONAL Administration Ranitidine HCl 150 mg 11/23/17 10:00 12/06/17 10:10 Zantac - PO 150 mg DAILY SON[facility] Administration Roflumilast 500 mcg 11/23/17 10:00 12/06/17 10:33 Daliresp - NGT 500 mcg DAILY SON[facility] Administration Saliva Substitute 1 applic 11/23/17 10:00 12/06/17 10:10 Mouthkote Solution - MM 1 applic DAILY SONAL Administration CXR: no interval change ASSESSMENT/PLAN: 62M w/ hx of active smoking, NIDDM, PUD, and BPH who presented with SOB, found to have acute hypoxic respiratory failure, extensive RLE DVT, sepsis likely 2/2 aspiration PNA, and acute diastolic CHF. #Acute hypoxic respiratory failure -suspect from ILD with pneumonitis, s/p intubation 11/03 with failed weaning and now s/p trach 11/07. trach exchanged 11/19. no gross signs of tracheomalacia. unable to titrate down FiO2. s/p trach change by Dr. Rosario on 11/30 -requiring 100% FiO2 today -goal SpO2 >88% -continue prednisone 40mg -chest PT #sepsis -leukocytosis of 10.2, temp of 100.9, tachycardia, lactic acid of 2.1 -ID on board, recs appreciated. change from zosyn to levaquin to cover Klebsiella Pneumonia in urine and S. Maltophilia in sputum -likely 2/2 aspiration PNA -new cultures pending -pressors PRN, maintain MAP > 65 #anemia -s/p RBC transfusion yesterday -Hgb of 10.1 after transfusion--> 9.1 today -continue to monitor #chest pain -trop: 0.7--> 0.09--> 0.09 -EKG with new changes -Echo: grossly normal -cards: elevated trops from septic shock, no cardiac intervention at this point #RLE DVT -s/p IVC filter 10/20, thrombectmy 10/24 -continue eliquis 5mg BID, monitor for bleeding #Acute diastolic heart failure -s/p intermittent lasix IV. clinically euvolemic. will hold for now #Iron deficiency anemia and anemia of chronic disease -Hgb of 6.9 today, ordered 2U of PRBCs -possible due to frequent blood draws and comorbidities - s/p 1 unit PRBC this hospital stay so far -cont iron supplementation #elevated LFTs -downtrending today -continue to monitor #Hypernatremia -Na of 146 -continue free water flushes -continue to monitor #antibiotic assoc Diarrhea -likely due to prolonged abx use, now resolved -continue bacid and banatol. #continuous nicotine dependence -nicotine patch #cachexia -severe malnutrition evident by body habitus. lost 40+lbs this hospital stay. s/p PEG 11/09. -tolerating TF -continue 2 loida to increase calorie intake as per RD. #DM -improved -cont levemir 16 units BID -cont to titrate as needed. #Agitation -intermittent periods of agitation -continue seroquel HS #FEN/PPX -water flush tube feeds -correct Na -tube feeds -ranitidine -eliquis #Dispo -Poor overall prognosis -speak to HCP about goals of care, palliative care on board. Case discussed with attending, Dr. Harper. -Russell Anderson MD PGY1 Visit type - Emergency Visit Emergency Visit: Yes ED Registration Date: 10/17/17 Care time: The patient presented to the Emergency Department on the above date and was hospitalized for further evaluation of their emergent condition. - New Patient This patient is new to me today: No - Critical Care Critical Care patient: Yes Total Critical Care Time (in minutes): 37 Critical Care Statement: The care of this patient involved high complexity decision making to prevent further life threatening deterioration of the patient 's condition and/or to evaluate & treat vital organ system(s) failure or risk of failure.
--- NOTE | 2017-12-06 14:59 | PN ---
Teaching Attending Note Name of Resident: Russell Anderson ATTENDING PHYSICIAN STATEMENT I saw and evaluated the patient. I reviewed the resident's note and discussed the case with the resident. I agree with the resident's findings and plan as documented. SUBJECTIVE:resting comfortable. denies SOB and CP OBJECTIVE: Last Vital Signs Temp Pulse Resp BP Pulse Ox 99.2 F 107 H 26 H 135/67 99 12/06/17 10:00 12/06/17 12:00 12/06/17 13:10 12/06/17 12:00 12/05/17 20:57 General NAD, Lungs coarse breath sounds anteriorly ASSESSMENT AND PLAN: 62 yo M active smoker, pMHx of NIDDM, PUD, BPH admitted with acute hypoxic respiratory failure, and extensive RLE DVT 1. Acute hypoxic respiratory failure, suspect from ?ILD with pneumonitis- s/p intubation 11/03 with failed weaning and now s/p trach 11/07. trach exchanged 11/19. copious secretions from trach. need frequent deep suctioning and chest PT. currently requiring 100% Fio2 after episode of septic shock with possible ARDS. cont high vent settings. management per pulm. goal SpO2 >88%. on pred 40mg 2. RLE DVT- s/p IVC filter 10/20, thrombectmy 10/24. on eliquis 5mg BID. monitor for bleeding 3. Septic shock due to aspiration PNA and UTI- currently off pressors. continues to ahve intermittent temp spikes. zosyn switched to levaquin day 6. 4. Acute diastolic heart failure- s/p intermittent lasix IV. clinically euvolemic. will give dose in between PRBC 5. Iron deficiency anemia and anemia of chronic disease- possible due to frequent blood draws and comorbidities. s/p 1 unit PRBC yesterday with good response. total of 3 units this admission. cont iron supplementation 6. Hypernatremia-resolved. decrease free water flushes 7. antibiotic assoc Diarrhea-likely due to prolonged abx use. now resolved. on bacid and banatol. 8. continuous nicotine dependence- nicotine patch 9. cachexia- severe malnutrition evident by body habitus. lost 40+lbs this hospital stay. s/p PEG 11/09. tolerating TF 10. DM- improved. cont to titrate insulin as needed. 11. Agitation- intermittent periods of agitation. off 2 point restraints. on seroquel HS. 12. PPX- ppi/josee 13. Poor overall prognosis. ethics and palliative on board The care of this patient involved high complexity decision making to prevent further life threatening deterioration of the patient's condition and/or to evaluate & treat vital organ system(s) failure or risk of failure. 38 minutes
[2017-12-06] MEDS ORDERED: LORazepam 2 MG/ML SDV VIAL IVPUSH ONE (15:27)
[2017-12-06] MEDS: QUEtiapine FUMARATE 25 MG TABLET (FP) PO SCH (21:11)
[2017-12-06] MEDS: CHLORHEXIDINE GLUCONATE 4% CLEANSER FOR DECOLONIZATION TP SCH (21:11)
[2017-12-06] MEDS: INSULIN DETEMIR 100 UNITS/ML MDV SQ SCH (22:18)
[2017-12-06] MEDS: MINERAL OIL/PETROLATUM,WHITE 3.5 GM TUBE OU SCH (22:20)
[2017-12-07] MEDS: INSULIN SLIDING SCALE (NOVOLOG) 1 VIAL SQ SCH ×4 (06:00→22:08)
[2017-12-07] MEDS: BANATROL PLUS POWDER PACKET PEG SCH ×3 (06:00→22:00)
[2017-12-07 06:09] LABS: HEMATOCRIT 29.3 % (35.4-49); HEMOGLOBIN 9.5 GM/dL (11.7-16.9); MCH 30.9 pg (25.7-33.7); MCHC 32.4 g/dl (32.0-35.9); MEAN CELL VOLUME 95.4 fl (80-96); MEAN PLT VOLUME 12.6 fl (7.5-11.1); PLATELET COUNT 77 K/MM3 (134-434); RBC 3.07 M/mm3 (4.00-5.60); RDW 18.7 % (11.9-15.9)
--- NOTE | 2017-12-07 06:44 | PN ---
Progress Note, Physician Chief Complaint: ID Levofloxacin day 1 therapy Cachectic man vent dependent on 100% FIO2 - Current Medication List Current Medications: Active Medications Acetaminophen (Tylenol -) 650 mg PO Q6H PRN PRN Reason: FEVER Last Admin: 12/01/17 10:16 Dose: 650 mg Albuterol/Ipratropium (Duoneb -) 1 amp NEB RQID [facility] Last Admin: 12/06/17 20:34 Dose: 1 amp Amino Acids (Prosource No Carb Liquid Pkt) 30 ml PO BID@0800,1730 [facility] Last Admin: 12/06/17 10:09 Dose: 30 ml Apixaban (Eliquis -) 5 mg PO BID [facility] Last Admin: 12/06/17 21:10 Dose: 5 mg Artificial Tears (Artificial Tears Ointment -) 1 applic OU HS [facility] Last Admin: 12/06/17 22:20 Dose: 1 applic Chlorhexidine Gluconate (Hibiclens For Decolonization -) 1 applic TP HS [facility] Last Admin: 12/06/17 21:11 Dose: 1 applic Ferrous Sulfate (Feosol) 300 mg GT DAILY [facility] Last Admin: 12/06/17 10:35 Dose: 300 mg Levofloxacin (Levaquin 500 Mg Premixed Ivpb -) 500 mg in 100 mls @ 100 mls/hr IVPB DAILY [facility] Last Admin: 12/06/17 10:10 Dose: 100 mls/hr Insulin Aspart (Novolog Vial Sliding Scale -) 1 vial SQ ACHS [facility] PRN Reason: Protocol Last Admin: 12/07/17 06:00 Dose: 2 units Insulin Detemir (Levemir Vial) 10 units SQ [facility] Last Admin: 12/06/17 22:18 Dose: 10 units Lactobacillus Acidophilus (Bacid -) 1 tab PEG DAILY [facility] Last Admin: 12/06/17 10:09 Dose: 1 tab Metoprolol Tartrate (Lopressor Injection -) 5 mg IVPUSH Q4H PRN PRN Reason: HYPERTENSION Last Admin: 12/05/17 03:33 Dose: 5 mg Prednisone (Deltasone -) 30 mg PO DAILY [facility] Quetiapine Fumarate (Seroquel -) 25 mg PO HS [facility] Last Admin: 12/06/17 21:11 Dose: 25 mg Ranitidine HCl (Zantac -) 150 mg PO DAILY [facility] Last Admin: 12/06/17 10:10 Dose: 150 mg Roflumilast (Daliresp -) 500 mcg NGT DAILY [facility]ON[facility] Last Admin: 12/06/17 10:33 Dose: 500 mcg Saliva Substitute (Mouthkote Solution -) 1 applic MM DAILY SONAL Last Admin: 12/06/17 10:10 Dose: 1 applic - Objective Vital Signs: Vital Signs Temperature 99 F 12/07/17 06:00 Pulse Rate 103 H 12/07/17 06:00 Respiratory Rate 28 H 12/07/17 06:00 Blood Pressure 122/70 12/07/17 06:00 O2 Sat by Pulse Oximetry (%) 98 12/06/17 20:44 Constitutional: Yes: Cachectic Cardiovascular: Yes: Tachycardia, S1, S2 Respiratory: Yes: WNL, Regular, CTA Bilaterally, Rhonchi Gastrointestinal: Yes: WNL, Normal Bowel Sounds, Soft. No: Tenderness, Tenderness, Rebound Edema: No Labs: INR, PTT INR 1.29 (0.82-1.09) H 12/06/17 06:45 Problem List - Problems (1) Interstitial lung disease Code(s): J84.9 - INTERSTITIAL PULMONARY DISEASE, UNSPECIFIED (2) Acute respiratory failure with hypoxia Code(s): J96.01 - ACUTE RESPIRATORY FAILURE WITH HYPOXIA (3) Pneumonia Code(s): J18.9 - PNEUMONIA, UNSPECIFIED ORGANISM (4) Deep vein thrombosis Code(s): I82.409 - ACUTE EMBOLISM AND THOMBOS UNSP DEEP VN UNSP LOWER EXTREMITY Assessment/Plan Microbiology 12/05/17 10:00 Sputum - Endotrachea Suction/Ventilator Gram Stain - Final 12/02/17 20:00 Sputum - Endotrachea Suction/Ventilator Gram Stain - Final 12/02/17 20:00 Sputum - Endotrachea Suction/Ventilator Sputum Culture - Final Stenotrophomon.(X.)Maltophilia 12/01/17 10:00 Urine - Urine Clean Catch Urine Culture - Final Klebsiella Pneumoniae 12/05/17 10:00 Sputum - Endotrachea Suction/Ventilator Sputum Culture - Preliminary Non Lactose Fermenting Gnb 12/05/17 06:45 Blood - Peripheral Venous Blood Culture - Preliminary NO GROWTH OBTAINED AFTER 24 HOURS, INCUBATION TO CONTINUE FOR 4 DAYS. 12/05/17 06:45 Blood - Peripheral Venous Blood Culture - Preliminary NO GROWTH OBTAINED AFTER 24 HOURS, INCUBATION TO CONTINUE FOR 4 DAYS. Laboratory Tests 12/06/17 12/06/17 12/07/17 06:45 06:45 05:20 WBC 10.2 H Pending Hgb 9.1 L Pending Hct Pending Plt Count 71 L Pending BUN 38 H ALT 222 H D Alkaline Phosphatase 152 H Assessment End stage lung disease Interstitial lung disease Superimposed respiratory infection considered electing to treat sputum ( GNB as previously noted) DVT Improving Liver enzymes Plan Conitnue Levofloxacin as ordered day 1 therapy Steroids lead enterprise architect taper if possible Prognosis given degree of end stage lung disease remains poor Umer IVY
[2017-12-07 06:48] LABS: ALBUMIN 1.6 g/dl (3.4-5.0); ALK PHOS 136 U/L (45-117); ANION GAP 3 (8-16); BILIRUBIN,TOTAL 0.4 mg/dL (0.2-1.0); BLOOD UREA NITROGEN 39 mg/dL (7-18); CALCIUM 7.7 mg/dL (8.5-10.1); CHLORIDE 105 mmol/L (98-107); CO2 43 mmol/L (21-32); CREATININE 0.6 mg/dL (0.7-1.3); GLUCOSE,RANDOM 251 mg/dL (74-106); PHOSPHOROUS 1.7 mg/dL (2.5-4.9); SGOT/AST 16 U/L (15-37); SGPT/ALT 138 U/L (12-78); SODIUM 151 mmol/L (136-145); TOT PROT 6.7 g/dl (6.4-8.2)
--- NOTE | 2017-12-07 06:57 | PN ---
Progress Note, Physician History of Present Illness: 24 hour events: Patient febrile, transfused blood meagan of 12/05, starting levofloxacin this AM per Dr. Owusu. Subjective: More alert this morning, responsive to questions. Patient denies complaints 24 HR I/O: I: 2170cc O: 575cc Net: 1595cc BM: Yes - Current Medication List Current Medications: Active Medications Acetaminophen (Tylenol -) 650 mg PO Q6H PRN PRN Reason: FEVER Last Admin: 12/01/17 10:16 Dose: 650 mg Albuterol/Ipratropium (Duoneb -) 1 amp NEB RQID [facility] Last Admin: 12/06/17 20:34 Dose: 1 amp Apixaban (Eliquis -) 5 mg PO BID [facility] Last Admin: 12/06/17 21:10 Dose: 5 mg Artificial Tears (Artificial Tears Ointment -) 1 applic OU HS [facility] Last Admin: 12/06/17 22:20 Dose: 1 applic Chlorhexidine Gluconate (Hibiclens For Decolonization -) 1 applic TP [facility] Last Admin: 12/06/17 21:11 Dose: 1 applic Ferrous Sulfate (Feosol) 300 mg GT DAILY [facility] Last Admin: 12/06/17 10:35 Dose: 300 mg Levofloxacin (Levaquin 500 Mg Premixed Ivpb -) 500 mg in 100 mls @ 100 mls/hr IVPB DAILY [facility] Last Admin: 12/06/17 10:10 Dose: 100 mls/hr Insulin Aspart (Novolog Vial Sliding Scale -) 1 vial SQ [facility] PRN Reason: Protocol Last Admin: 12/07/17 06:00 Dose: 2 units Insulin Detemir (Levemir Vial) 10 units SQ [facility] Last Admin: 12/06/17 22:18 Dose: 10 units Lactobacillus Acidophilus (Bacid -) 1 tab PEG DAILY [facility] Last Admin: 12/06/17 10:09 Dose: 1 tab Metoprolol Tartrate (Lopressor Injection -) 5 mg IVPUSH Q4H PRN PRN Reason: HYPERTENSION Last Admin: 12/05/17 03:33 Dose: 5 mg Prednisone (Deltasone -) 30 mg PO DAILY [facility] Quetiapine Fumarate (Seroquel -) 25 mg PO [facility] Last Admin: 12/06/17 21:11 Dose: 25 mg Ranitidine HCl (Zantac -) 150 mg PO DAILY [facility] Last Admin: 12/06/17 10:10 Dose: 150 mg Roflumilast (Daliresp -) 500 mcg NGT DAILY [facility] Last Admin: 12/06/17 10:33 Dose: 500 mcg Saliva Substitute (Mouthkote Solution -) 1 applic MM DAILY [facility] Last Admin: 12/06/17 10:10 Dose: 1 applic - Objective Vital Signs: Vital Signs Temperature 99 F 12/07/17 06:00 Pulse Rate 103 H 12/07/17 06:00 Respiratory Rate 28 H 12/07/17 06:00 Blood Pressure 122/70 12/07/17 06:00 O2 Sat by Pulse Oximetry (%) 98 12/06/17 20:44 Constitutional: Yes: No Distress, Cachectic, Thin Eyes: Yes: Conjunctiva Clear, EOM Intact HENT: Yes: Atraumatic, Normocephalic, Other (facial muscle and soft tissue atrophy, small amount of oropharyngeal secretions, tracheostomy tube in place in anterior neck which appears protruding from large stoma, +air leak which is audible across the room) Neck: Yes: Supple, Trachea Midline Cardiovascular: Yes: Tachycardia Respiratory: Yes: Other (bilateral coarse breath sounds, tachypnea) Gastrointestinal: Yes: Normal Bowel Sounds, Soft Extremities: Yes: Other (marked muscle atrophy). No: Calf Tenderness Peripheral Pulses: Left Doralis Pedis: 2+, Right Dorsalis Pedis: 2+ Integumentary: Yes: WNL. No: Erythema Neurological: Yes: Alert ...Motor Strength: WNL Psychiatric: Yes: Alert Labs: CBC, BMP 12/07/17 05:20 INR, PTT INR 1.29 (0.82-1.09) H 12/06/17 06:45 Assessment/Plan 62 YOM with h/o NIDDM, PUD, BPH, long-time smoker, presented initially with hypoxic respiratory failure while eating food, found large DVT to RLE, now s/p IVC filter placed (10/20/17) and thrombectomy (10.24.17), tracheostomy, on ventilator, continues to require 90-100% FiO2. Neuro: #Nicotine Dependence: -Nicotine patch 7 MG daily #Anxiety -0.5 Xanax q8h for management of anxiety #Agitation -Continue Seroquel 25mg for management of agitation -Alida Mittens (ordered) CV: #Shock, septic vs. cardiogenic vs. iatrogenic, resolved. Source unclear. -FU urine, blood, sputum Cx #DVT: U/S positive for right calf DVT, s/p thrombectomy -Continue Eliquis #Chest Pain, none recently. EKG without ischemic changes. -Monitor for recurrence of pain Pulm: #Acute Hypoxic Respiratory Failure, improved. Initially thought ARDS vs. CHF given JVD and crackles treated for CAP. ECHO showing mild MR, mild/mod TR, mild pHTN. CT with diffuse interstitial lung disease, serial CXR with e/o congestion /volume overload. Patient was transferred back to the ICU for inability to maintain tidal volumes. Tidal volumes continue to be maintained with new trach tube. -Continue Prednisone 40 daily -Continue scheduled duonebs -Continue daliresp -Continue weaning FiO2 as possible with goal <60% which should be met prior to d /c to SNF ID: Likely ILD with GGO vs. infectious pattern. HIV, influenza, strep, legionella neg. BCx NGTD, sputum Cx neg. Completed Azithromycin and Ceftriaxone for suspected CAP. Concern for right lower lobe pneumonia. Urine cultures growing yeast. Sputum culture growing lactose fermenting negative bacilli. -Continue to monitor. -ID recs appreciated #Leukocytosis, fluctuating. Febrile intermittently for the past several days. -Continue to monitor CBCD -CXR daily Renal: - CTM - Avoid nephrotoxic medications Heme: #Macrocytic Anemia, fluctuating, transfused meagan of 12/05/16. Transfused Endo #NIDDM. -Will continue to monitor BGM and provide D50 pushes as needed. -10 mg Levemir HS -ISS : #BPH -Continue tamsulosin 0.4mg daily GI: #Peptic Ulcer Disease: History of mesh according to family and had Endoscopy two months. Was given medications according to patients daughter and completed course. -Continue PPI -Reduced banana flakes to one pack TID per dietitian #Cachexia, chronic. -Continue PEG tube feeds FEN -Electrolytes repleted as needed. -Continue PEG tube feeds. -Dietitian saw patient, recommended DC ProSource, order placed. PPX: -Continue Eliquis -Continue ranitidine -PT when able Lines/Drains/Tubes Feeding tube Tracheostomy tube PIV Disposition: Further ICU care, ethics committee consult today as patient is A/ O.
[2017-12-07] MEDS: ALBUTEROL SO4 2.5/IPRATROPIUM 0.5 INH SOL 3 ML VIAL.NEB. NEB SCH ×4 (08:57→20:30)
[2017-12-07] MEDS ORDERED: NAPH,MB-DB/K PH,MBDB POWDER PACKET PO ONE (09:00)
[2017-12-07 09:29] LABS: ARTERIAL BLD GAS O2 SATURATION 97.9 % (90-98.9); ARTERIAL BLOOD GAS BASE EXCESS 15.5 meq/l (-2-2); ARTERIAL BLOOD GAS PO2 95.9 mmHg (80-100); ARTERIAL BLOOD GAS pH 7.38 (7.35-7.45)
[2017-12-07 09:31] LABS: ALLENS TEST POSITIVE
[2017-12-07 09:35] LABS: ARTERIAL BLOOD GAS PCO2 74.6 mmHg (35-45)
[2017-12-07] MEDS ORDERED: PT OWN MED DRAWER 7, Y5N ONE ×2 (10:06→21:00)
[2017-12-07] MEDS: LACTOBACILLUS ACIDOPHILUS 1 EACH TAB (FP) PEG SCH (10:10)
[2017-12-07] MEDS: FERROUS SO4 300 MG/5 ML ORAL SOLN UNIT DOSE CUPS GT SCH (10:10)
[2017-12-07] MEDS: APIXABAN 2.5 MG TABLET PO SCH ×2 (10:11→21:57)
[2017-12-07] MEDS: ROFLUMILAST 500 MCG TABLET NGT SCH (10:12)
[2017-12-07] MEDS: predniSONE 20 MG TABLET (UD) PO SCH (10:12)
[2017-12-07] MEDS: LYTES/YERBA SANTA 240 ML BOTTLE MM SCH (10:15)
[2017-12-07] MEDS: RANITIDINE HCL 150 MG TABLET (FP) PO SCH (10:15)
--- NOTE | 2017-12-07 13:05 | PN ---
Teaching Attending Note Name of Resident: Nolvia Maharaj ATTENDING PHYSICIAN STATEMENT I saw and evaluated the patient. I reviewed the resident's note and discussed the case with the resident. I agree with the resident's findings and plan as documented. SUBJECTIVE: Patient seen and examined in the ICU. Remains vented on volume assist control with 100% FiO2. No improvement in overall condition. OBJECTIVE: Intake & Output 12/04/17 12/05/17 12/06/17 12/07/17 23:59 23:59 23:59 23:59 Intake Total 2620 2600 2170 1460 Output Total 800 1050 575 200 Balance 1820 1550 1595 1260 Weight 79 lb 11.2 oz 83 lb 11.2 oz 81 lb 8 oz 80 lb 11.2 oz Last Vital Signs Temp Pulse Resp BP Pulse Ox 99.2 F 107 H 27 H 121/64 99 12/07/17 10:00 12/07/17 10:00 12/07/17 12:00 12/07/17 10:00 12/07/17 08:33 Active Medications Acetaminophen (Tylenol -) 650 mg PO Q6H PRN PRN Reason: FEVER Last Admin: 12/01/17 10:16 Dose: 650 mg Albuterol/Ipratropium (Duoneb -) 1 amp NEB RQID [facility] Last Admin: 12/07/17 12:36 Dose: 1 amp Apixaban (Eliquis -) 5 mg PO BID [facility] Last Admin: 12/07/17 10:11 Dose: 5 mg Artificial Tears (Artificial Tears Ointment -) 1 applic OU HS [facility] Last Admin: 12/06/17 22:20 Dose: 1 applic Chlorhexidine Gluconate (Hibiclens For Decolonization -) 1 applic TP HS [facility] Last Admin: 12/06/17 21:11 Dose: 1 applic Ferrous Sulfate (Feosol) 300 mg GT DAILY [facility] Last Admin: 12/07/17 10:10 Dose: 300 mg Levofloxacin (Levaquin 500 Mg Premixed Ivpb -) 500 mg in 100 mls @ 100 mls/hr IVPB DAILY [facility] Last Admin: 12/07/17 10:11 Dose: 100 mls/hr Insulin Aspart (Novolog Vial Sliding Scale -) 1 vial SQ ACHS [facility] PRN Reason: Protocol Last Admin: 12/07/17 06:00 Dose: 2 units Insulin Detemir (Levemir Vial) 10 units SQ HS [facility] Last Admin: 12/06/17 22:18 Dose: 10 units Lactobacillus Acidophilus (Bacid -) 1 tab PEG DAILY [facility] Last Admin: 12/07/17 10:10 Dose: 1 tab Metoprolol Tartrate (Lopressor Injection -) 5 mg IVPUSH Q4H PRN PRN Reason: HYPERTENSION Last Admin: 12/05/17 03:33 Dose: 5 mg Prednisone (Deltasone -) 30 mg PO DAILY [facility] Last Admin: 12/07/17 10:12 Dose: 30 mg Quetiapine Fumarate (Seroquel -) 25 mg PO HS [facility] Last Admin: 12/06/17 21:11 Dose: 25 mg Ranitidine HCl (Zantac -) 150 mg PO DAILY [facility] Last Admin: 12/07/17 10:15 Dose: 150 mg Roflumilast (Daliresp -) 500 mcg NGT DAILY [facility] Last Admin: 12/07/17 10:12 Dose: 500 mcg Saliva Substitute (Mouthkote Solution -) 1 applic MM DAILY [facility] Last Admin: 12/07/17 10:15 Dose: 1 applic Gen: vented, awake tachypneic Heart: tachycardic, regular Lung: scattered rhonchi Abd: soft, nontender Ext: no edema Laboratory Results - last 24 hr 12/06/17 12/06/17 12/07/17 13:55 22:14 05:20 WBC 8.0 RBC 3.07 L Hgb 9.5 L Hct 29.3 L MCV 95.4 MCH 30.9 MCHC 32.4 RDW 18.7 H Plt Count 77 L MPV 12.6 H Puncture Site ABG pH ABG pCO2 at Pt Temp ABG pO2 at Pt Temp ABG HCO3 ABG O2 Sat (Measured) ABG O2 Content ABG Base Excess Dionte Test Oxygen Flow Rate Vent Rate PEEP Sodium Potassium Chloride Carbon Dioxide Anion Gap BUN Creatinine Creat Clearance w eGFR POC Glucometer 249.69005 [phone] Random Glucose Calcium Phosphorus Magnesium Total Bilirubin AST ALT Alkaline Phosphatase Total Protein Albumin 12/07/17 12/07/17 12/07/17 05:20 05:27 08:43 WBC RBC Hgb Hct MCV MCH MCHC RDW Plt Count MPV Puncture Site Right radial ABG pH 7.38 ABG pCO2 at Pt Temp 74.6 H* ABG pO2 at Pt Temp 95.9 ABG HCO3 43.1 H* ABG O2 Sat (Measured) 97.9 ABG O2 Content 13.8 L ABG Base Excess 15.5 H* Dionte Test Positive Oxygen Flow Rate 100 Vent Rate 14 PEEP 8.0 Sodium 151 H Potassium 4.0 Chloride 105 Carbon Dioxide 43 H Anion Gap 3 L BUN 39 H Creatinine 0.6 L Creat Clearance w eGFR > 60 POC Glucometer [phone] Random Glucose 251 H D Calcium 7.7 L Phosphorus 1.7 L D Magnesium 2.0 Total Bilirubin 0.4 D AST 16 D ALT 138 H D Alkaline Phosphatase 136 H Total Protein 6.7 Albumin 1.6 L Problem List - Problems (1) Acute respiratory failure with hypoxia Code(s): J96.01 - ACUTE RESPIRATORY FAILURE WITH HYPOXIA (2) Pneumonia Code(s): J18.9 - PNEUMONIA, UNSPECIFIED ORGANISM (3) Diabetes Code(s): E11.9 - TYPE 2 DIABETES MELLITUS WITHOUT COMPLICATIONS ASSESSMENT AND PLAN: Acute Hypoxic Respiratory Failure s/p Tracheostomy Pneumonia treated Sepsis Interstitial Lung Disease Acute Diastolic Heart Failure improved Acute Kidney Injury Lactic Acidosis resolved DM Anemia RLE DVT - antibiotics per ID - f/u pending cultures - monitor urine output, creatinine - taper prednisone, decrease to 30mg daily - anxiolytics, seroquel qHS - enteral feeds - titrate levemir - continue anticoagulation, monitor H/H - taper FiO2 to keep SpO2 >90% - not a candidate for weaning at this time due to high oxygen requirements - bedside PT - DVT/GI prophylaxis - continue discussions regarding goals of care as pt with clinical deterioration and limited options - continue ICU monitoring for now Dr Souza Critical care time spent in reviewing chart, evaluating patient and formulating plan 35 min
--- NOTE | 2017-12-07 14:25 | PN ---
Physical Exam: SUBJECTIVE: Patient seen and examined Yesterday, attempt at weaning pt down to 90% FiO2 failed. The stoma was observed to be increasing in size, Dr. Rosario was notified. This am, pt remains on 100% FiO2. He has no complaints. OBJECTIVE: Vital Signs Period Temp Pulse Resp BP Sys/Sutton Pulse Ox Last 24 Hr 98.6 F-99.2 F 103-127 13-30 94-148/58-71 98-99 GENERAL: cachectic elderly male, vented, sedated HEENT: trach in place LUNGS: upper airway gurgling sounds, mechanical breath sounds, tachypneic with accessory muscle use HEART: difficult to assess over mechanical breath sounds ABDOMEN: scaphoid abdomen, soft, NT, mesh from hernia surgery is easily palpable EXTREMITIES: 2+ pulses, warm, well-perfused, no edema, emaciated NEUROLOGICAL: Cranial nerves II through XII grossly intact Laboratory Results - last 24 hr 12/06/17 12/07/17 12/07/17 22:14 05:20 05:20 WBC 8.0 RBC 3.07 L Hgb 9.5 L Hct 29.3 L MCV 95.4 MCH 30.9 MCHC 32.4 RDW 18.7 H Plt Count 77 L MPV 12.6 H Puncture Site ABG pH ABG pCO2 at Pt Temp ABG pO2 at Pt Temp ABG HCO3 ABG O2 Sat (Measured) ABG O2 Content ABG Base Excess Dionte Test Oxygen Flow Rate Vent Rate PEEP Sodium 151 H Potassium 4.0 Chloride 105 Carbon Dioxide 43 H Anion Gap 3 L BUN 39 H Creatinine 0.6 L Creat Clearance w eGFR > 60 POC Glucometer [phone] Random Glucose 251 H D Calcium 7.7 L Phosphorus 1.7 L D Magnesium 2.0 Total Bilirubin 0.4 D AST 16 D ALT 138 H D Alkaline Phosphatase 136 H Total Protein 6.7 Albumin 1.6 L 12/07/17 12/07/17 12/07/17 05:27 08:43 12:57 WBC RBC Hgb Hct MCV MCH MCHC RDW Plt Count MPV Puncture Site Right radial ABG pH 7.38 ABG pCO2 at Pt Temp 74.6 H* ABG pO2 at Pt Temp 95.9 ABG HCO3 43.1 H* ABG O2 Sat (Measured) 97.9 ABG O2 Content 13.8 L ABG Base Excess 15.5 H* Dionte Test Positive Oxygen Flow Rate 100 Vent Rate 14 PEEP 8.0 Sodium Potassium Chloride Carbon Dioxide Anion Gap BUN Creatinine Creat Clearance w eGFR POC Glucometer 274.93018 [phone] Random Glucose Calcium Phosphorus Magnesium Total Bilirubin AST ALT Alkaline Phosphatase Total Protein Albumin Active Medications Generic Name Dose Route Start Last Admin Trade Name Freq PRN Reason Stop Dose Admin Acetaminophen 650 mg 11/22/17 23:20 12/01/17 10:16 Tylenol - PO 650 mg Q6H PRN Administration FEVER Albuterol/Ipratropium 1 amp 11/23/17 08:00 12/07/17 12:36 Duoneb - NEB 1 amp RQID [facility] Administration Apixaban 5 mg 12/06/17 10:00 12/07/17 10:11 Eliquis - PO 5 mg BID [facility] Administration Artificial Tears 1 applic 11/23/17 22:00 12/06/17 22:20 Artificial Tears Ointment - OU 1 applic HS [facility] Administration Chlorhexidine Gluconate 1 applic 11/22/17 22:00 12/06/17 21:11 Hibiclens For Decolonization - TP 1 applic HS [facility] Administration Ferrous Sulfate 300 mg 11/23/17 10:00 12/07/17 10:10 Feosol GT 300 mg DAILY [facility] Administration Levofloxacin 500 mg in 100 mls @ 100 mls/hr 12/06/17 10:00 12/07/17 10:11 Levaquin 500 Mg Premixed Ivpb - IVPB 100 mls/hr DAILY [facility] Administration Potassium Phosphate 30 mm/ 260 mls @ 62.5 mls/hr 12/07/17 13:11 Dextrose IVPB 12/07/17 17:20 ONCE ONE Insulin Aspart 1 vial 11/23/17 07:00 12/07/17 06:00 Novolog Vial Sliding Scale - SQ 2 units ACHS [facility] Administration Protocol Insulin Detemir 10 units 12/04/17 22:00 12/06/17 22:18 Levemir Vial SQ 10 units HS [facility] Administration Lactobacillus Acidophilus 1 tab 11/23/17 10:00 12/07/17 10:10 Bacid - PEG 1 tab DAILY [facility] Administration Metoprolol Tartrate 5 mg 11/22/17 23:20 12/05/17 03:33 Lopressor Injection - IVPUSH 5 mg Q4H PRN Administration HYPERTENSION Prednisone 30 mg 12/07/17 10:00 12/07/17 10:12 Deltasone - PO 30 mg DAILY [facility] Administration Quetiapine Fumarate 25 mg 11/23/17 22:00 12/06/17 21:11 Seroquel - PO 25 mg HS [facility] Administration Ranitidine HCl 150 mg 11/23/17 10:00 12/07/17 10:15 Zantac - PO 150 mg DAILY [facility] Administration Roflumilast 500 mcg 11/23/17 10:00 12/07/17 10:12 Daliresp - NGT 500 mcg DAILY [facility] Administration Saliva Substitute 1 applic 11/23/17 10:00 12/07/17 10:15 Mouthkote Solution - MM 1 applic DAILY [facility] Administration ASSESSMENT/PLAN: 62M w/ hx of active smoking, NIDDM, PUD, and BPH who presented with SOB, found to have acute hypoxic respiratory failure, extensive RLE DVT, sepsis likely 2/2 aspiration PNA, and acute diastolic CHF. #Acute hypoxic respiratory failure -suspect from ILD with pneumonitis, s/p intubation 11/03 with failed weaning and now s/p trach 11/07. trach exchanged 11/19. no gross signs of tracheomalacia. unable to titrate down FiO2. s/p trach change by Dr. Rosario on 11/30 -requiring 100% FiO2 today -goal SpO2 >88% -continue prednisone 30mg -chest PT #sepsis- resolving -leukocytosis of 8, temp of 99, tachycardia -ID on board, recs appreciated. continue levaquin to cover Klebsiella Pneumonia in urine and S. Maltophilia in sputum -likely 2/2 aspiration PNA -new cultures pending -pressors PRN, maintain MAP > 65 #anemia -s/p RBC transfusion. hgb of 9.5 today -continue to monitor #chest pain -trop: 0.7--> 0.09--> 0.09 -EKG with new changes -Echo: grossly normal -cards: elevated trops from septic shock, no cardiac intervention at this point #RLE DVT -s/p IVC filter 10/20, thrombectmy 10/24 -continue eliquis 5mg BID, monitor for bleeding #Acute diastolic heart failure -s/p intermittent lasix IV. clinically euvolemic. will hold for now #Iron deficiency anemia and anemia of chronic disease -Hgb of 9.5 today -possibly due to frequent blood draws and comorbidities -cont iron supplementation #elevated LFTs -downtrending today -continue to monitor #Hypernatremia -Na of 151 -increased free water flushes -continue to monitor #antibiotic assoc Diarrhea -likely due to prolonged abx use, now resolved -continue bacid and banatol. #continuous nicotine dependence -nicotine patch #cachexia -severe malnutrition evident by body habitus. lost 40+lbs this hospital stay. s/p PEG 11/09. -tolerating TF -continue 2 loida to increase calorie intake as per RD. #DM -improved -cont levemir 10 units -cont to titrate as needed. #Agitation -intermittent periods of agitation -continue seroquel HS #FEN/PPX -water flush tube feeds -correct Na and phosphate -tube feeds -ranitidine -eliquis #Dispo -Poor overall prognosis -speak to HCP about goals of care, palliative care on board, ethics consult. Case discussed with attending, Dr. Harpre. -Russell Anderson MD PGY1 Visit type - Emergency Visit Emergency Visit: Yes ED Registration Date: 10/17/17 Care time: The patient presented to the Emergency Department on the above date and was hospitalized for further evaluation of their emergent condition. - New Patient This patient is new to me today: No - Critical Care Critical Care patient: Yes Total Critical Care Time (in minutes): 38 Critical Care Statement: The care of this patient involved high complexity decision making to prevent further life threatening deterioration of the patient 's condition and/or to evaluate & treat vital organ system(s) failure or risk of failure.
[2017-12-07] MEDS ORDERED: POTASSIUM PHOSPHATE 30 MM in DEXTROSE 5%-WATER - 250 ML IVPB ONE (15:00)
--- NOTE | 2017-12-07 16:50 | PN ---
Teaching Attending Note Name of Resident: Russell Anderson ATTENDING PHYSICIAN STATEMENT I saw and evaluated the patient. I reviewed the resident's note and discussed the case with the resident. I agree with the resident's findings and plan as documented. SUBJECTIVE:resting comfortable OBJECTIVE: Last Vital Signs Temp Pulse Resp BP Pulse Ox 99.0 F 120 H 28 H 135/70 96 12/07/17 14:00 12/07/17 14:00 12/07/17 15:22 12/07/17 14:00 12/07/17 09:00 General NAD, Lungs coarse breath sounds anteriorly ASSESSMENT AND PLAN: 62 yo M active smoker, pMHx of NIDDM, PUD, BPH admitted with acute hypoxic respiratory failure, and extensive RLE DVT 1. Acute hypoxic respiratory failure, suspect from ?ILD with pneumonitis- s/p intubation 11/03 with failed weaning and now s/p trach 11/07. trach exchanged 11/19. need frequent deep suctioning and chest PT. currently requiring 100% Fio2 after episode of septic shock with possible ARDS. cont high vent settings. management per pulm. goal SpO2 >88%. on pred 40mg 2. RLE DVT- s/p IVC filter 10/20, thrombectomy 10/24. on eliquis 5mg BID. monitor for bleeding 3. Septic shock due to aspiration PNA and UTI- currently off pressors. afebrile. Repeat SCx seems to be growing same organism. cont levaquin day 7. 4. Acute diastolic heart failure- s/p intermittent lasix IV. clinically euvolemic. 5. Iron deficiency anemia and anemia of chronic disease- possible due to frequent blood draws and comorbidities. s/p 3unit PRBC this hospitalization. cont iron supplementation 6. Hypernatremia-slowly trending up. will place back on water flushes 7. antibiotic assoc Diarrhea-likely due to prolonged abx use. now resolved. on bacid and banatol. 8. continuous nicotine dependence- nicotine patch 9. cachexia- severe malnutrition evident by body habitus. lost 40+lbs this hospital stay. s/p PEG 11/09. tolerating TF 10. DM- improved. cont to titrate insulin as needed. 11. Agitation- intermittent periods of agitation. off 2 point restraints. on seroquel HS. 12. PPX- ppi/eliquis 13. Poor overall prognosis. ethics and palliative on board The care of this patient involved high complexity decision making to prevent further life threatening deterioration of the patient's condition and/or to evaluate & treat vital organ system(s) failure or risk of failure. 35 minutes
[2017-12-07] MEDS ORDERED: LIDOCAINE HCL 1%, 10 MG/ML (20ML VIAL) ONE (17:06)
[2017-12-07] MEDS ORDERED: LORazepam 2 MG/ML SDV VIAL IVPUSH ONE (17:30)
--- NOTE | 2017-12-07 18:11 | PROC ---
Procedure Note Procedure: Surgery Asked by Dr Rosario to reposition sutures that secure trach in place. The tracheotomy is riding up. Verbal consent obtained over the phone by Resident Dr. Hdez via patient's daughter Debora who has been involved in the patient's care and decision making. After the nurse suctioned the airway and the surrounding area was cleaned from gross contamination. The skin around the trach sutures and just inferior to the current trach sutures was cleaned with alcohol prep. Under sterile prep and sterile technique, @ 2cc of 1% lidocaine was injected into the SQ layer at both sites bilaterally, and a wheel was raised. The old sutures were cut and Nylon suture was then used to secure the tube just inferior to the original site and closer to the sternum without compromising the airway or manipulating the tube placement. The procedure resulted in less torque on trach site. Patient tolerated the procedure well and good tidal volumes were confirmed post procedure. Evaluation and procedure discussed with Dr Oakley and Dr. Simpson who will evaluate the patient in the morning for more definitive treatment.
--- NOTE | 2017-12-07 19:55 | PN ---
Progress Note, Physician History of Present Illness: Pt seen and examined at bedside. He is awake. No great change. - Current Medication List Current Medications: Active Medications Acetaminophen (Tylenol -) 650 mg PO Q6H PRN PRN Reason: FEVER Last Admin: 12/01/17 10:16 Dose: 650 mg Albuterol/Ipratropium (Duoneb -) 1 amp NEB RQID [facility] Last Admin: 12/07/17 15:16 Dose: 1 amp Apixaban (Eliquis -) 5 mg PO BID [facility] Last Admin: 12/07/17 10:11 Dose: 5 mg Artificial Tears (Artificial Tears Ointment -) 1 applic OU HS [facility] Last Admin: 12/06/17 22:20 Dose: 1 applic Chlorhexidine Gluconate (Hibiclens For Decolonization -) 1 applic TP HS [facility] Last Admin: 12/06/17 21:11 Dose: 1 applic Ferrous Sulfate (Feosol) 300 mg GT DAILY [facility] Last Admin: 12/07/17 10:10 Dose: 300 mg Levofloxacin (Levaquin 500 Mg Premixed Ivpb -) 500 mg in 100 mls @ 100 mls/hr IVPB DAILY [facility] Last Admin: 12/07/17 10:11 Dose: 100 mls/hr Insulin Aspart (Novolog Vial Sliding Scale -) 1 vial SQ ACHS [facility] PRN Reason: Protocol Last Admin: 12/07/17 18:24 Dose: Not Given Insulin Detemir (Levemir Vial) 10 units SQ HS [facility] Last Admin: 12/06/17 22:18 Dose: 10 units Lactobacillus Acidophilus (Bacid -) 1 tab PEG DAILY [facility] Last Admin: 12/07/17 10:10 Dose: 1 tab Metoprolol Tartrate (Lopressor Injection -) 5 mg IVPUSH Q4H PRN PRN Reason: HYPERTENSION Last Admin: 12/05/17 03:33 Dose: 5 mg Prednisone (Deltasone -) 30 mg PO DAILY [facility] Last Admin: 12/07/17 10:12 Dose: 30 mg Quetiapine Fumarate (Seroquel -) 25 mg PO HS [facility] Last Admin: 12/06/17 21:11 Dose: 25 mg Ranitidine HCl (Zantac -) 150 mg PO DAILY [facility] Last Admin: 12/07/17 10:15 Dose: 150 mg Roflumilast (Daliresp -) 500 mcg NGT DAILY [facility] Last Admin: 12/07/17 10:12 Dose: 500 mcg Saliva Substitute (Mouthkote Solution -) 1 applic MM DAILY [facility] Last Admin: 12/07/17 10:15 Dose: 1 applic - Objective Vital Signs: Vital Signs Temperature 99.0 F 12/07/17 14:00 Pulse Rate 120 H 12/07/17 14:00 Respiratory Rate 27 H 12/07/17 17:38 Blood Pressure 135/70 12/07/17 14:00 O2 Sat by Pulse Oximetry (%) 96 12/07/17 09:00 Constitutional: Yes: Calm Neck: Yes: Other (trache) Cardiovascular: Yes: S1, S2 Respiratory: Yes: Mechanically Ventilated Gastrointestinal: Yes: Soft, Other (peg) Genitourinary: Yes: Incontinence Musculoskeletal: Yes: Muscle Weakness Edema: No Neurological: Yes: Oriented Labs: CBC, BMP 12/07/17 05:20 12/07/17 05:20 INR, PTT INR 1.29 (0.82-1.09) H 12/06/17 06:45 Problem List - Problems (1) Hypernatremia Code(s): E87.0 - HYPEROSMOLALITY AND HYPERNATREMIA (2) MIRLANDE (acute kidney injury) Code(s): N17.9 - ACUTE KIDNEY FAILURE, UNSPECIFIED (3) Acute respiratory failure with hypoxia Code(s): J96.01 - ACUTE RESPIRATORY FAILURE WITH HYPOXIA (4) Diabetes Code(s): E11.9 - TYPE 2 DIABETES MELLITUS WITHOUT COMPLICATIONS (5) Failure to thrive Code(s): [id number] - Assessment/Plan Current Medications Generic Name Dose Route Start Last Admin Trade Name Freq PRN Reason Stop Dose Admin Acetaminophen 650 mg 11/22/17 23:20 12/01/17 10:16 Tylenol - PO 650 mg Q6H PRN Administration FEVER Albuterol/Ipratropium 1 amp 11/23/17 08:00 12/07/17 15:16 Duoneb - NEB 1 amp RQID [facility] Administration Apixaban 5 mg 12/06/17 10:00 12/07/17 10:11 Eliquis - PO 5 mg BID [facility] Administration Artificial Tears 1 applic 11/23/17 22:00 12/06/17 22:20 Artificial Tears Ointment - OU 1 applic HS [facility] Administration Chlorhexidine Gluconate 1 applic 11/22/17 22:00 12/06/17 21:11 Hibiclens For Decolonization - TP 1 applic HS [facility] Administration Ferrous Sulfate 300 mg 11/23/17 10:00 12/07/17 10:10 Feosol GT 300 mg DAILY [facility] Administration Levofloxacin 500 mg in 100 mls @ 100 mls/hr 12/06/17 10:00 12/07/17 10:11 Levaquin 500 Mg Premixed Ivpb - IVPB 100 mls/hr DAILY [facility] Administration Insulin Aspart 1 vial 11/23/17 07:00 12/07/17 18:24 Novolog Vial Sliding Scale - SQ Not Given ACHS [facility] Protocol Insulin Detemir 10 units 12/04/17 22:00 12/06/17 22:18 Levemir Vial SQ 10 units HS [facility] Administration Lactobacillus Acidophilus 1 tab 11/23/17 10:00 12/07/17 10:10 Bacid - PEG 1 tab DAILY [facility] Administration Metoprolol Tartrate 5 mg 11/22/17 23:20 12/05/17 03:33 Lopressor Injection - IVPUSH 5 mg Q4H PRN Administration HYPERTENSION Prednisone 30 mg 12/07/17 10:00 12/07/17 10:12 Deltasone - PO 30 mg DAILY [facility] Administration Quetiapine Fumarate 25 mg 11/23/17 22:00 12/06/17 21:11 Seroquel - PO 25 mg HS [facility] Administration Ranitidine HCl 150 mg 11/23/17 10:00 12/07/17 10:15 Zantac - PO 150 mg DAILY [facility] Administration Roflumilast 500 mcg 11/23/17 10:00 12/07/17 10:12 Daliresp - NGT 500 mcg DAILY [facility] Administration Saliva Substitute 1 applic 11/23/17 10:00 12/07/17 10:15 Mouthkote Solution - MM 1 applic DAILY [facility] Administration Impression 1. MIRLANDE 2. hypernatremia 3. chronic resp failure s/p trache 4. s/p trache 5. s/p peg 6. sepsis 7. interstitial lung disease 8. chf diastolic 9. DM 10. lactic acidosis 11. PNA Plan - sodium is worse today - will increase free water flushes - repeat labs in am - vent support - repeat labs in am - avoid IV fluids - prognosis is poor Dr Gan
[2017-12-07] MEDS: CHLORHEXIDINE GLUCONATE 4% CLEANSER FOR DECOLONIZATION TP SCH (21:59)
[2017-12-07] MEDS: QUEtiapine FUMARATE 25 MG TABLET (FP) PO SCH (21:59)
[2017-12-07] MEDS: MINERAL OIL/PETROLATUM,WHITE 3.5 GM TUBE OU SCH (22:01)
[2017-12-07] MEDS: INSULIN DETEMIR 100 UNITS/ML MDV SQ SCH (22:07)
[2017-12-08] MEDS ORDERED: SODIUM CHLORIDE 500 ML IV STA (05:41)
[2017-12-08] MEDS ORDERED: morphine SULFATE 4 MG/ML VIAL IVPUSH ONE (05:42)
[2017-12-08] MEDS ORDERED: morphine CARPU-JECT 2 MG/1 ML DISP.SYRIN IVPUSH ONE (05:42)
[2017-12-08] MEDS ORDERED: morphine SULFATE 4 MG/ML VIAL ONE (05:55)
[2017-12-08] MEDS: BANATROL PLUS POWDER PACKET PEG SCH ×3 (06:04→22:17)
[2017-12-08] MEDS: INSULIN SLIDING SCALE (NOVOLOG) 1 VIAL SQ SCH ×4 (06:05→22:14)
[2017-12-08 06:24] LABS: BASO % 0.1 % (0-2.0); HEMATOCRIT 31.7 % (35.4-49); LYMPH % 6.3 % (8-40); MCH 30.4 pg (25.7-33.7); MCHC 31.5 g/dl (32.0-35.9); MEAN CELL VOLUME 96.5 fl (80-96); MONO % 6.1 % (3.8-10.2); NEUT % 87.5 % (42.8-82.8); PLATELET COUNT 107 K/MM3 (134-434); RBC 3.29 M/mm3 (4.00-5.60)
[2017-12-08 06:38] LABS: INR 1.97 (0.82-1.09); PROTHROMBIN TIME (PATIENT) 22.3 SEC (9.98-11.88)
[2017-12-08 06:40] LABS: ACTIVATED PTT 33.3 SECONDS (26.9-34.4)
[2017-12-08 06:57] LABS: ALBUMIN 1.6 g/dl (3.4-5.0); ANION GAP 8 (8-16); BLOOD UREA NITROGEN 41 mg/dL (7-18); CALCIUM 8.2 mg/dL (8.5-10.1); CHLORIDE 103 mmol/L (98-107); CO2 38 mmol/L (21-32); CREATININE 0.6 mg/dL (0.7-1.3); GLUCOSE,RANDOM 232 mg/dL (74-106); PHOSPHOROUS 4.3 mg/dL (2.5-4.9); POTASSIUM 5.4 mmol/L (3.5-5.1); SGOT/AST 17 U/L (15-37); SGPT/ALT 95 U/L (12-78); SODIUM 149 mmol/L (136-145)
[2017-12-08 06:58] LABS: ALK PHOS 141 U/L (45-117); BILIRUBIN,TOTAL 0.8 mg/dL (0.2-1.0); TOT PROT 7.3 g/dl (6.4-8.2)
--- NOTE | 2017-12-08 07:01 | PN ---
Progress Note, Physician History of Present Illness: 24 HOUR EVENTS WBC to 19k this morning. Per RN notes this AM, "ST to 140 at 6am, RR 36, no temp , FEEDER LOADER made aware, NS 500cc bolus and morphine 2mg ivpush. Not tolerating sactioning, desat and takes long time for O2 sat to recover to his baseline. SpO2 only able to maintain at 87-91% range with FiO2 100%." Patient is NPO for morning procedure; PA did come to suture stoma but will keep patient NPO until Dr. Simpson comes to evaluate the patient this morning in case he does need further procedures. SUBJECTIVE Patient unable to provide 24 HOUR INTAKE & OUTPUT In: 3480cc Out: 300cc Net: +3180cc BM: Yes LINES/TUBES/DRAINS ET tube: placed in trach stoma 12/08/17 Feeding tube PIV - Current Medication List Current Medications: Active Medications Acetaminophen (Tylenol -) 650 mg PO Q6H PRN PRN Reason: FEVER Last Admin: 12/01/17 10:16 Dose: 650 mg Albuterol/Ipratropium (Duoneb -) 1 amp NEB RQID [facility] Last Admin: 12/07/17 20:30 Dose: Not Given Apixaban (Eliquis -) 5 mg PO BID [facility] Last Admin: 12/07/17 21:57 Dose: 5 mg Artificial Tears (Artificial Tears Ointment -) 1 applic OU HS [facility] Last Admin: 12/07/17 22:01 Dose: 1 applic Chlorhexidine Gluconate (Hibiclens For Decolonization -) 1 applic TP HS [facility] Last Admin: 12/07/17 21:59 Dose: 1 applic Ferrous Sulfate (Feosol) 300 mg GT DAILY [facility] Last Admin: 12/07/17 10:10 Dose: 300 mg Levofloxacin (Levaquin 500 Mg Premixed Ivpb -) 500 mg in 100 mls @ 100 mls/hr IVPB DAILY [facility] Last Admin: 12/07/17 10:11 Dose: 100 mls/hr Insulin Aspart (Novolog Vial Sliding Scale -) 1 vial SQ ACHS [facility] PRN Reason: Protocol Last Admin: 12/08/17 06:05 Dose: 6 units Insulin Detemir (Levemir Vial) 10 units SQ HS [facility] Last Admin: 12/07/17 22:07 Dose: Not Given Lactobacillus Acidophilus (Bacid -) 1 tab PEG DAILY [facility] Last Admin: 12/07/17 10:10 Dose: 1 tab Metoprolol Tartrate (Lopressor Injection -) 5 mg IVPUSH Q4H PRN PRN Reason: HYPERTENSION Last Admin: 12/05/17 03:33 Dose: 5 mg Prednisone (Deltasone -) 30 mg PO DAILY [facility] Last Admin: 12/07/17 10:12 Dose: 30 mg Quetiapine Fumarate (Seroquel -) 25 mg PO HS [facility] Last Admin: 12/07/17 21:59 Dose: 25 mg Ranitidine HCl (Zantac -) 150 mg PO DAILY [facility] Last Admin: 12/07/17 10:15 Dose: 150 mg Roflumilast (Daliresp -) 500 mcg NGT DAILY [facility] Last Admin: 12/07/17 10:12 Dose: 500 mcg Saliva Substitute (Mouthkote Solution -) 1 applic MM DAILY [facility] Last Admin: 12/07/17 10:15 Dose: 1 applic - Objective Vital Signs: Vital Signs Temperature 98.3 F 12/08/17 06:00 Pulse Rate 134 H 12/08/17 06:00 Respiratory Rate 29 H 12/08/17 06:00 Blood Pressure 110/71 12/08/17 06:00 O2 Sat by Pulse Oximetry (%) 89 L 12/08/17 06:00 Constitutional: Yes: No Distress, Calm, Cachectic, Thin, Other (less responsive than yesterday, not making eye contact or tracking with eyes, not answering questions or following simple commands) Eyes: Yes: Conjunctiva Clear, EOM Intact HENT: Yes: Atraumatic, Normocephalic, Other (significant facial muscle and soft tissue atrophy) Neck: Yes: Other (tracheostomy stoma present in anterior neck wall without bleeding, moderate secretions which are suctioned) Cardiovascular: Yes: Tachycardia Respiratory: Yes: Regular, Mechanically Ventilated (on trach), Tachypnea, Other (coarse breath sounds bilaterally). No: Cough Gastrointestinal: Yes: WNL, Normal Bowel Sounds, Soft Extremities: Yes: Other (significant muscle atrophy). No: Cool, Cyanosis, Deformity, Delayed Capillary Refill Edema: Yes (sacral) Peripheral Pulses: Left Doralis Pedis: 2+, Right Dorsalis Pedis: 2+ Integumentary: Yes: WNL. No: Jaundice Neurological: Yes: Other (somewhat alert in that eyes are open and he is moving extremities, looking around the room occasionally, but not interactive at all). No: Oriented Labs: CBC, BMP 12/08/17 05:20 INR, PTT INR 1.97 (0.82-1.09) H D 12/08/17 05:20 - ....Imaging Chest X-ray: Report Reviewed, Image Reviewed, Other (ET tube tip about 3 cm above the rolando) Assessment/Plan 62 YOM with h/o NIDDM, PUD, BPH, long-time smoker, presented initially with hypoxic respiratory failure while eating food, found large DVT to RLE, now s/p IVC filter placed (10/20/17) and thrombectomy (10.24.17), tracheostomy, on ventilator, continues to require 90-100% FiO2. Neuro: #Nicotine Dependence: -Nicotine patch 7 MG daily #Anxiety/agitation -0.5 Xanax q8h for management of anxiety -Continue Seroquel 25mg for management of agitation -Alida Mittens -25 mcg/h fentanyl drip -2 mg morphine IVPUSH Q1H prn pain/agitation CV: #Shock, septic vs. cardiogenic vs. iatrogenic, resolved. Source unclear. -FU urine, blood, sputum Cx #DVT: U/S positive for right calf DVT, s/p thrombectomy -Continue Eliquis #Chest Pain, none recently. EKG without ischemic changes. -Monitor for recurrence of pain Pulm: #Acute Hypoxic Respiratory Failure, improved. Initially thought ARDS vs. CHF given JVD and crackles treated for CAP. ECHO showing mild MR, mild/mod TR, mild pHTN. CT with diffuse interstitial lung disease, serial CXR with e/o congestion /volume overload. Patient was transferred back to the ICU for inability to maintain tidal volumes. Tidal volumes continue to be maintained with new trach tube. -Continue Prednisone 30 daily -Continue scheduled duonebs -Continue daliresp -Continue weaning FiO2 as possible with goal <60% which should be met prior to d /c to SNF #Chronic tracheostomy. Trach tube vicente sbeen switched out 4 times since tracheostomy was done. Stoma is very large, have attempted to suture, persistent leak. ENT has evaluated and multiple trach tube sizes tried. Trach tubes keep riding up and protruding out of stoma, high risk for arterial injury 2/ erosion. -Switched out trach tube for ET tube today -Spoke with daughter about this ID: Likely ILD with GGO vs. infectious pattern. HIV, influenza, strep, legionella neg. Completed Azithromycin and Ceftriaxone for suspected CAP. Blood cultures taken 12/05/17 positive, elmore-resistant. Urine Cx taken 12/05/17 shows yeast-like organism. Sputum culture taken 12/05/17 shows Stenotrophomonas maltophilia. -Continue levofloxacin -ID following #Leukocytosis, fluctuating. Febrile intermittently for the past several days. -Continue to monitor CBCD -CXR daily Renal: - CTM - Avoid nephrotoxic medications -Avoid fluids Heme: #Macrocytic Anemia, fluctuating, transfused meagan of 12/05/16. Endo #NIDDM. -Will continue to monitor BGM and provide D50 pushes as needed. -10 mg Levemir HS -ISS : #BPH -Continue tamsulosin 0.4mg daily GI: #Peptic Ulcer Disease: History of mesh according to family and had Endoscopy two months. Was given medications according to patients daughter and completed course. -Continue PPI -Banana flakes to one pack TID per dietitian #Cachexia, chronic. -Continue PEG tube feeds FEN -Electrolytes repleted as needed. -Continue PEG tube feeds. -Dietitian saw patient, recommended DC [facility], order placed. PPX: -Continue Eliquis -Continue ranitidine -PT when able Disposition: Further ICU care, ethics committee consult when possible
[2017-12-08] MEDS: ALBUTEROL SO4 2.5/IPRATROPIUM 0.5 INH SOL 3 ML VIAL.NEB. NEB SCH ×4 (07:30→21:02)
--- NOTE | 2017-12-08 07:46 | PN ---
Progress Note, Physician Chief Complaint: ID Unable to ventilate him this am Tachcardic 130s Levofloxacin day 2 Report of gram positive bacilli from 2 blood culture sets 12/05 - Current Medication List Current Medications: Active Medications Acetaminophen (Tylenol -) 650 mg PO Q6H PRN PRN Reason: FEVER Last Admin: 12/01/17 10:16 Dose: 650 mg Albuterol/Ipratropium (Duoneb -) 1 amp NEB RQID [facility] Last Admin: 12/07/17 20:30 Dose: Not Given Apixaban (Eliquis -) 5 mg PO BID [facility] Last Admin: 12/07/17 21:57 Dose: 5 mg Artificial Tears (Artificial Tears Ointment -) 1 applic OU [facility] Last Admin: 12/07/17 22:01 Dose: 1 applic Chlorhexidine Gluconate (Hibiclens For Decolonization -) 1 applic TP HS [facility] Last Admin: 12/07/17 21:59 Dose: 1 applic Ferrous Sulfate (Feosol) 300 mg GT DAILY [facility] Last Admin: 12/07/17 10:10 Dose: 300 mg Levofloxacin (Levaquin 500 Mg Premixed Ivpb -) 500 mg in 100 mls @ 100 mls/hr IVPB DAILY [facility] Last Admin: 12/07/17 10:11 Dose: 100 mls/hr Insulin Aspart (Novolog Vial Sliding Scale -) 1 vial SQ ACHS [facility] PRN Reason: Protocol Last Admin: 12/08/17 06:05 Dose: 6 units Insulin Detemir (Levemir Vial) 10 units SQ [facility] Last Admin: 12/07/17 22:07 Dose: Not Given Lactobacillus Acidophilus (Bacid -) 1 tab PEG DAILY [facility] Last Admin: 12/07/17 10:10 Dose: 1 tab Metoprolol Tartrate (Lopressor Injection -) 5 mg IVPUSH Q4H PRN PRN Reason: HYPERTENSION Last Admin: 12/05/17 03:33 Dose: 5 mg Prednisone (Deltasone -) 30 mg PO DAILY [facility] Last Admin: 12/07/17 10:12 Dose: 30 mg Quetiapine Fumarate (Seroquel -) 25 mg PO HS [facility] Last Admin: 12/07/17 21:59 Dose: 25 mg Ranitidine HCl (Zantac -) 150 mg PO DAILY [facility] Last Admin: 02/22/18 10:15 Dose: 150 mg Roflumilast (Daliresp -) 500 mcg NGT DAILY [facility] Last Admin: 12/07/17 10:12 Dose: 500 mcg Saliva Substitute (Mouthkote Solution -) 1 applic MM DAILY [facility] Last Admin: 12/07/17 10:15 Dose: 1 applic - Objective Vital Signs: Vital Signs Temperature 98.3 F 12/08/17 06:00 Pulse Rate 134 H 12/08/17 06:00 Respiratory Rate 38 H 12/08/17 07:35 Blood Pressure 110/71 12/08/17 06:00 O2 Sat by Pulse Oximetry (%) 89 L 12/08/17 06:00 Constitutional: Yes: Severe Distress Cardiovascular: Yes: Tachycardia, S1, S2 Respiratory: Yes: Rhonchi Gastrointestinal: Yes: Soft Edema: No Labs: CBC, BMP 12/08/17 05:20 12/08/17 05:20 INR, PTT INR 1.97 (0.82-1.09) H D 12/08/17 05:20 Problem List - Problems (1) Interstitial lung disease Code(s): J84.9 - INTERSTITIAL PULMONARY DISEASE, UNSPECIFIED (2) Acute respiratory failure with hypoxia Code(s): J96.01 - ACUTE RESPIRATORY FAILURE WITH HYPOXIA (3) Pneumonia Code(s): J18.9 - PNEUMONIA, UNSPECIFIED ORGANISM (4) Deep vein thrombosis Code(s): I82.409 - ACUTE EMBOLISM AND THOMBOS UNSP DEEP VN UNSP LOWER EXTREMITY Assessment/Plan Microbiology 12/05/17 10:00 Sputum - Endotrachea Suction/Ventilator Gram Stain - Final 12/05/17 10:00 Sputum - Endotrachea Suction/Ventilator Sputum Culture - Final Stenotrophomon.(X.)Maltophilia 12/05/17 06:45 Blood - Peripheral Venous Blood Culture - Preliminary Pending Organism 12/05/17 06:45 Blood - Peripheral Venous Blood Culture - Preliminary Pending Organism Laboratory Tests 12/08/17 12/08/17 05:20 05:20 WBC 19.0 H D Hgb 10.0 L Hct 31.7 L Plt Count 107 L D BUN 41 H Creatinine 0.6 L Assessment Sepsis syndrome positive blood cultures gram positive bacilli both sets !! No central line Stenotrophomon maltophilia from respiratory secretions Respiratory failure/ distress Interstitial lung disease Plan Continue Levofloxacin with now the addition of Vancomycin Umer IV[facility]
[2017-12-08] MEDS ORDERED: PT OWN MED DRAWER 7, Y5N ONE (09:02)
[2017-12-08] MEDS: METOPROLOL TARTRATE 5 MG/5 ML VIAL IVPUSH PRN (09:10)
[2017-12-08] MEDS: LYTES/YERBA SANTA 240 ML BOTTLE MM SCH (09:12)
[2017-12-08] MEDS: APIXABAN 2.5 MG TABLET PO SCH ×2 (09:12→21:25)
[2017-12-08] MEDS: FERROUS SO4 300 MG/5 ML ORAL SOLN UNIT DOSE CUPS GT SCH (09:12)
[2017-12-08] MEDS: RANITIDINE HCL 150 MG TABLET (FP) PO SCH (09:12)
[2017-12-08] MEDS: ROFLUMILAST 500 MCG TABLET NGT SCH (09:13)
[2017-12-08] MEDS: predniSONE 20 MG TABLET (UD) PO SCH (09:13)
[2017-12-08] MEDS: LACTOBACILLUS ACIDOPHILUS 1 EACH TAB (FP) PEG SCH (09:13)
--- NOTE | 2017-12-08 09:48 | PN ---
Progress Note (short form) - Note Progress Note: Asked to see this patient for advice on tracheostomy management. Critically ill on maximal ventalitory support with poor prognosis. Tracheostomy has been difficult to manage with capacious opening. Tracheostomy tube replaced several times currently with XLT in place. Stable on ventilator. Not very communicative or aware, though he is awake. Nutritional and overall health status is very poor resulting in poor wound healing. There is no good surgical option to correct this problem. An endotracheal tube may be a better option to get the tube into a more normal caliber of trachea. This may also alleviate balloon pressure on the innominate artery. However, the possibility of an innominate artery rupture exists even if the balloon is not on the artery at this point as it may be exposed to external contaminants. Nevertheless without better nutritional status there is no good option for coverage, therefore, I recommend observation with the possibility that it may granulate over.
[2017-12-08] MEDS ORDERED: VANCOMYCIN 750 MG in DEXTROSE 5%-WATER - 250 ML IVPB SCH (10:00)
[2017-12-08] MEDS ORDERED: fentaNYL CITRATE 250 MCG/5 ML VIAL ONE (11:10)
--- NOTE | 2017-12-08 12:50 | PN ---
Physical Exam: SUBJECTIVE: Patient seen and examined Overnight, pt became tachy to 140s and hypoxic to 80s%, given 500cc bolus of NS and morphine 2mg. This am, trach site re-sutured without complication. Pt less responsive and alert this morning. OBJECTIVE: Vital Signs Period Temp Pulse Resp BP Sys/Sutton Pulse Ox Last 24 Hr 97.9 F-99.1 F 120-135 14-38 110-146/59-83 89-97 GENERAL: cachectic elderly male, vented, less alert and responsive, right arm shaking HEENT: trach in place LUNGS: upper airway gurgling sounds, mechanical breath sounds, tachypneic with accessory muscle use HEART: difficult to assess over mechanical breath sounds ABDOMEN: scaphoid abdomen, soft, NT, mesh from hernia surgery is easily palpable EXTREMITIES: 2+ pulses, warm, well-perfused, no edema, emaciated NEUROLOGICAL: unable to fully assess Laboratory Results - last 24 hr 12/07/17 12/07/17 12/07/17 12:57 17:59 22:06 WBC RBC Hgb Hct MCV MCH MCHC RDW Plt Count MPV Neutrophils % Lymphocytes % Monocytes % Eosinophils % Basophils % PT with INR INR PTT (Actin FS) Sodium Potassium Chloride Carbon Dioxide Anion Gap BUN Creatinine Creat Clearance w eGFR POC Glucometer [phone] Random Glucose Calcium Phosphorus Magnesium Total Bilirubin AST ALT Alkaline Phosphatase Total Protein Albumin 12/08/17 12/08/17 12/08/17 05:20 05:20 05:20 WBC 19.0 H D RBC 3.29 L Hgb 10.0 L Hct 31.7 L MCV 96.5 H MCH 30.4 MCHC 31.5 L RDW 18.0 H Plt Count 107 L D MPV 12.0 H Neutrophils % 87.5 H Lymphocytes % 6.3 L D Monocytes % 6.1 Eosinophils % 0.0 D Basophils % 0.1 PT with INR 22.30 H INR 1.97 H D PTT (Actin FS) 33.3 Sodium 149 H Potassium 5.4 H D Chloride 103 Carbon Dioxide 38 H Anion Gap 8 BUN 41 H Creatinine 0.6 L Creat Clearance w eGFR > 60 POC Glucometer Random Glucose 232 H Calcium 8.2 L Phosphorus 4.3 D Magnesium 2.0 Total Bilirubin 0.8 D AST 17 ALT 95 H D Alkaline Phosphatase 141 H Total Protein 7.3 Albumin 1.6 L 12/08/17 12/08/17 05:44 10:33 WBC RBC Hgb Hct MCV MCH MCHC RDW Plt Count MPV Neutrophils % Lymphocytes % Monocytes % Eosinophils % Basophils % PT with INR INR PTT (Actin FS) Sodium Potassium Chloride Carbon Dioxide Anion Gap BUN Creatinine Creat Clearance w eGFR POC Glucometer [phone] Random Glucose Calcium Phosphorus Magnesium Total Bilirubin AST ALT Alkaline Phosphatase Total Protein Albumin Active Medications Generic Name Dose Route Start Last Admin Trade Name Freq PRN Reason Stop Dose Admin Acetaminophen 650 mg 11/22/17 23:20 12/01/17 10:16 Tylenol - PO 650 mg Q6H PRN Administration FEVER Albuterol/Ipratropium 1 amp 11/23/17 08:00 12/08/17 11:15 Duoneb - NEB 1 amp RQID [facility] Administration Apixaban 5 mg 12/06/17 10:00 12/08/17 09:12 Eliquis - PO Not Given BID [facility] Artificial Tears 1 applic 11/23/17 22:00 12/07/17 22:01 Artificial Tears Ointment - OU 1 applic HS [facility] Administration Chlorhexidine Gluconate 1 applic 11/22/17 22:00 12/07/17 21:59 Hibiclens For Decolonization - TP 1 applic HS [facility] Administration Ferrous Sulfate 300 mg 11/23/17 10:00 12/08/17 09:12 Feosol GT Not Given DAILY [facility] Levofloxacin 500 mg in 100 mls @ 100 mls/hr 12/06/17 10:00 12/08/17 09:12 Levaquin 500 Mg Premixed Ivpb - IVPB 100 mls/hr DAILY [facility] Administration Vancomycin HCl 750 mg/ 250 mls @ 250 mls/hr 12/08/17 10:00 12/08/17 10:19 Dextrose IVPB 250 mls/hr DAILY [facility] Administration Protocol Insulin Aspart 1 vial 11/23/17 07:00 12/08/17 10:35 Novolog Vial Sliding Scale - SQ Not Given ACHS [facility] Protocol Insulin Detemir 10 units 12/04/17 22:00 12/07/17 22:07 Levemir Vial SQ Not Given HS [facility] Lactobacillus Acidophilus 1 tab 11/23/17 10:00 12/08/17 09:13 Bacid - PEG Not Given DAILY [facility] Metoprolol Tartrate 5 mg 11/22/17 23:20 12/08/17 09:10 Lopressor Injection - IVPUSH 5 mg Q4H PRN Administration HYPERTENSION Prednisone 30 mg 12/07/17 10:00 12/08/17 09:13 Deltasone - PO Not Given DAILY [facility] Quetiapine Fumarate 25 mg 11/23/17 22:00 12/07/17 21:59 Seroquel - PO 25 mg HS [facility] Administration Ranitidine HCl 150 mg 11/23/17 10:00 12/08/17 09:12 Zantac - PO Not Given DAILY [facility] Roflumilast 500 mcg 11/23/17 10:00 12/08/17 09:13 Daliresp - NGT Not Given DAILY [facility] Saliva Substitute 1 applic 11/23/17 10:00 12/08/17 09:12 Mouthkote Solution - MM Not Given DAILY [facility] ASSESSMENT/PLAN: 62M w/ hx of active smoking, NIDDM, PUD, and BPH who presented with SOB, found to have acute hypoxic respiratory failure, extensive RLE DVT, sepsis likely 2/2 aspiration PNA, and acute diastolic CHF. #Acute hypoxic respiratory failure -suspect from ILD with pneumonitis, s/p intubation 11/03 with failed weaning and now s/p trach 11/07. trach exchanged 11/19. no gross signs of tracheomalacia. unable to titrate down FiO2. s/p trach change by Dr. Rosario on 11/30 -requiring 100% FiO2 today -goal SpO2 >88% -continue prednisone 30mg -chest PT #sepsis- resolving -leukocytosis of 19, Tmax of 99.1, tachycardia -Bcx: gram positive bacilli x 2 bottles -Scx: S. Maltophilia that is elmore-resistant -ID on board, recs appreciated. continue levaquin and start vancomycin -pressors PRN, maintain MAP > 65 #anemia -s/p RBC transfusions -Hgb of 10 today -continue to monitor -cont iron supplementation #chest pain -trop: 0.7--> 0.09--> 0.09 -EKG with new changes -Echo: grossly normal -cards: elevated trops from septic shock, no cardiac intervention at this point #RLE DVT -s/p IVC filter 10/20, thrombectomy 10/24 -continue eliquis 5mg BID, monitor for bleeding #Acute diastolic heart failure -s/p intermittent lasix IV. clinically euvolemic. will hold for now #elevated LFTs -downtrending today -continue to monitor #Hypernatremia -Na of 149 -increased free water flushes -continue to monitor #antibiotic assoc Diarrhea -likely due to prolonged abx use, now resolved -continue bacid and banatol. #continuous nicotine dependence -nicotine patch #cachexia -severe malnutrition evident by body habitus. lost 40+lbs this hospital stay. s/p PEG 11/09. -tolerating TF -continue 2 loida to increase calorie intake as per RD. #DM -cont levemir 10 units -cont to titrate as needed. #Agitation -intermittent periods of agitation -continue seroquel HS #FEN/PPX -water flush tube feeds -correct Na -tube feeds -ranitidine -eliquis #Dispo -Poor overall prognosis -speak to HCP about goals of care, palliative care on board, ethics consult. Case discussed with attending, Dr. Harper. -Russell Anderson MD PGY1 Visit type - Emergency Visit Emergency Visit: Yes ED Registration Date: 10/17/17 Care time: The patient presented to the Emergency Department on the above date and was hospitalized for further evaluation of their emergent condition. - New Patient This patient is new to me today: No - Critical Care Critical Care patient: Yes Total Critical Care Time (in minutes): 37 Critical Care Statement: The care of this patient involved high complexity decision making to prevent further life threatening deterioration of the patient 's condition and/or to evaluate & treat vital organ system(s) failure or risk of failure. - Discharge Referral Referred to [facility] Med [facility] No
--- NOTE | 2017-12-08 12:54 | PN ---
Teaching Attending Note Name of Resident: Nolvia Maharaj ATTENDING PHYSICIAN STATEMENT I saw and evaluated the patient. I reviewed the resident's note and discussed the case with the resident. I agree with the resident's findings and plan as documented. SUBJECTIVE: Patient seen and examined in the ICU. Remains vented on volume assist control with 100% FiO2. No improvement in overall condition. Discussed Trach management with Head and Neck Surgery. The concern given his Trach and widening of his stoma is eventual injury to the innominate artery. Thus a size 8 ETT was passed successfully into the stoma at the beside and secured. Adequate VT and vent parameters observed after the procedure. OBJECTIVE: Intake & Output 12/05/17 12/06/17 12/07/17 12/08/17 23:59 23:59 23:59 23:59 Intake Total 2600 2170 3480 940 Output Total 1050 575 300 Balance 1550 1595 3180 940 Weight 83 lb 11.2 oz 81 lb 8 oz 80 lb 11.2 oz 77 lb 8 oz Last Vital Signs Temp Pulse Resp BP Pulse Ox 98.4 F 120 H 27 H 113/59 97 12/08/17 10:00 12/08/17 10:00 12/08/17 11:30 12/08/17 10:00 12/08/17 08:48 Active Medications Acetaminophen (Tylenol -) 650 mg PO Q6H PRN PRN Reason: FEVER Last Admin: 12/01/17 10:16 Dose: 650 mg Albuterol/Ipratropium (Duoneb -) 1 amp NEB RQID [facility] Last Admin: 12/08/17 11:15 Dose: 1 amp Apixaban (Eliquis -) 5 mg PO BID [facility] Last Admin: 12/08/17 09:12 Dose: Not Given Artificial Tears (Artificial Tears Ointment -) 1 applic OU HS [facility] Last Admin: 12/07/17 22:01 Dose: 1 applic Chlorhexidine Gluconate (Hibiclens For Decolonization -) 1 applic TP HS [facility] Last Admin: 12/07/17 21:59 Dose: 1 applic Ferrous Sulfate (Feosol) 300 mg GT DAILY [facility] Last Admin: 12/08/17 09:12 Dose: Not Given Levofloxacin (Levaquin 500 Mg Premixed Ivpb -) 500 mg in 100 mls @ 100 mls/hr IVPB DAILY [facility] Last Admin: 12/08/17 09:12 Dose: 100 mls/hr Vancomycin HCl 750 mg/ (Dextrose) 250 mls @ 250 mls/hr IVPB DAILY [facility] PRN Reason: Protocol Last Admin: 12/08/17 10:19 Dose: 250 mls/hr Insulin Aspart (Novolog Vial Sliding Scale -) 1 vial SQ ACHS [facility] PRN Reason: Protocol Last Admin: 12/08/17 10:35 Dose: Not Given Insulin Detemir (Levemir Vial) 10 units SQ HS [facility] Last Admin: 12/07/17 22:07 Dose: Not Given Lactobacillus Acidophilus (Bacid -) 1 tab PEG DAILY [facility] Last Admin: 12/08/17 09:13 Dose: Not Given Metoprolol Tartrate (Lopressor Injection -) 5 mg IVPUSH Q4H PRN PRN Reason: HYPERTENSION Last Admin: 12/08/17 09:10 Dose: 5 mg Prednisone (Deltasone -) 30 mg PO DAILY [facility] Last Admin: 12/08/17 09:13 Dose: Not Given Quetiapine Fumarate (Seroquel -) 25 mg PO HS [facility] Last Admin: 12/07/17 21:59 Dose: 25 mg Ranitidine HCl (Zantac -) 150 mg PO DAILY [facility] Last Admin: 12/08/17 09:12 Dose: Not Given Roflumilast (Daliresp -) 500 mcg NGT DAILY [facility] Last Admin: 12/08/17 09:13 Dose: Not Given Saliva Substitute (Mouthkote Solution -) 1 applic MM DAILY [facility] Last Admin: 12/08/17 09:12 Dose: Not Given Gen: vented, awake tachypneic Heart: tachycardic, regular Lung: scattered rhonchi Abd: soft, nontender Ext: no edema Laboratory Results - last 24 hr 12/07/17 12/07/17 12/07/17 12:57 17:59 22:06 WBC RBC Hgb Hct MCV MCH MCHC RDW Plt Count MPV Neutrophils % Lymphocytes % Monocytes % Eosinophils % Basophils % PT with INR INR PTT (Actin FS) Sodium Potassium Chloride Carbon Dioxide Anion Gap BUN Creatinine Creat Clearance w eGFR POC Glucometer [phone] Random Glucose Calcium Phosphorus Magnesium Total Bilirubin AST ALT Alkaline Phosphatase Total Protein Albumin 12/08/17 12/08/17 12/08/17 05:20 05:20 05:20 WBC 19.0 H D RBC 3.29 L Hgb 10.0 L Hct 31.7 L MCV 96.5 H MCH 30.4 MCHC 31.5 L RDW 18.0 H Plt Count 107 L D MPV 12.0 H Neutrophils % 87.5 H Lymphocytes % 6.3 L D Monocytes % 6.1 Eosinophils % 0.0 D Basophils % 0.1 PT with INR 22.30 H INR 1.97 H D PTT (Actin FS) 33.3 Sodium 149 H Potassium 5.4 H D Chloride 103 Carbon Dioxide 38 H Anion Gap 8 BUN 41 H Creatinine 0.6 L Creat Clearance w eGFR > 60 POC Glucometer Random Glucose 232 H Calcium 8.2 L Phosphorus 4.3 D Magnesium 2.0 Total Bilirubin 0.8 D AST 17 ALT 95 H D Alkaline Phosphatase 141 H Total Protein 7.3 Albumin 1.6 L 12/08/17 12/08/17 05:44 10:33 WBC RBC Hgb Hct MCV MCH MCHC RDW Plt Count MPV Neutrophils % Lymphocytes % Monocytes % Eosinophils % Basophils % PT with INR INR PTT (Actin FS) Sodium Potassium Chloride Carbon Dioxide Anion Gap BUN Creatinine Creat Clearance w eGFR POC Glucometer [phone] Random Glucose Calcium Phosphorus Magnesium Total Bilirubin AST ALT Alkaline Phosphatase Total Protein Albumin Problem List - Problems (1) Acute respiratory failure with hypoxia Code(s): J96.01 - ACUTE RESPIRATORY FAILURE WITH HYPOXIA (2) Pneumonia Code(s): J18.9 - PNEUMONIA, UNSPECIFIED ORGANISM (3) Diabetes Code(s): E11.9 - TYPE 2 DIABETES MELLITUS WITHOUT COMPLICATIONS ASSESSMENT AND PLAN: Acute Hypoxic Respiratory Failure s/p Tracheostomy Pneumonia treated Sepsis Interstitial Lung Disease Acute Diastolic Heart Failure improved Acute Kidney Injury Lactic Acidosis resolved DM Anemia RLE DVT - Check CXR - antibiotics per ID - f/u pending cultures - monitor urine output, creatinine - Prednisone - anxiolytics, seroquel qHS - enteral feeds - Glycemic control - continue anticoagulation, monitor H/H - taper FiO2 to keep SpO2 >90% - not a candidate for weaning at this time due to high oxygen requirements - bedside PT - DVT/GI prophylaxis - continue discussions regarding goals of care as pt with clinical deterioration and limited options - continue ICU monitoring for now - Add Fentanyl for vent synchrony Dr Souza Critical care time spent in reviewing chart, evaluating patient and formulating plan 35 min
[2017-12-08] MEDS ORDERED: MORPHINE SULFATE 10 MG/1 ML *VIAL IVPUSH PRN (13:08)
[2017-12-08] MEDS ORDERED: FENTANYL INJECTION 500 MCG in DEXTROSE 5%-WATER - 90 ML IVPB SCH (13:15)
--- NOTE | 2017-12-08 14:10 | PN ---
Teaching Attending Note Name of Resident: Russell Anderson ATTENDING PHYSICIAN STATEMENT I saw and evaluated the patient. I reviewed the resident's note and discussed the case with the resident. I agree with the resident's findings and plan as documented. SUBJECTIVE:more lethargic today OBJECTIVE: Last Vital Signs Temp Pulse Resp BP Pulse Ox 98.4 F 119 H 29 H 93/61 97 12/08/17 10:00 12/08/17 12:00 12/08/17 12:00 12/08/17 12:00 12/08/17 08:48 General lethargic. opens eye to verbal stimuli, answers some questions Lungs coarse breath sounds anteriorly ASSESSMENT AND PLAN: 62 yo M active smoker, pMHx of NIDDM, PUD, BPH admitted with acute hypoxic respiratory failure, and extensive RLE DVT 1. Acute hypoxic respiratory failure, suspect from ?ILD with pneumonitis- s/p intubation 11/03 with failed weaning and now s/p trach 11/07. trach exchanged 11/19. Second opinion by CT surgery today as continues to ahve intermittent leak around the trach. as per ICU team pt is still pulling enough volumes on the vent. not tolerating weaning due to tachypnea. need frequent deep suctioning and chest PT. currently requiring 100% Fio2. cont high vent settings. management per pulm. goal SpO2 >88%. on pred 30mg 2. RLE DVT- s/p IVC filter 10/20, thrombectomy 10/24. on eliquis 5mg BID. monitor for bleeding 3. Septic shock due to aspiration PNA and bacteremia-afebrile. BCX with GPR. started on vanco. cont levaquin day 8. 4. Acute diastolic heart failure- s/p intermittent lasix IV. clinically euvolemic. 5. Iron deficiency anemia and anemia of chronic disease- possible due to frequent blood draws and comorbidities. s/p 3unit PRBC this hospitalization. cont iron supplementation 6. Hypernatremia-improving. cont water flushes 7. antibiotic assoc Diarrhea-likely due to prolonged abx use. now resolved. on bacid and banatol. 8. continuous nicotine dependence- nicotine patch 9. cachexia- severe malnutrition evident by body habitus. lost 40+lbs this hospital stay. s/p PEG 11/09. tolerating TF 10. DM- improved. cont to titrate insulin as needed. 11. Agitation- intermittent periods of agitation. off 2 point restraints. on seroquel HS. 12. PPX- ppi/eliquis 13. Poor overall prognosis. ethics and palliative on board. multiple attempts to reach daughter has been unsuccessful. daughter has not been seen visiting since Monday. The care of this patient involved high complexity decision making to prevent further life threatening deterioration of the patient's condition and/or to evaluate & treat vital organ system(s) failure or risk of failure. 38 minutes
[2017-12-08] MEDS ORDERED: PROPOFOL 1,000,000 MCG/100 ML VIAL ONE (17:05)
--- NOTE | 2017-12-08 17:09 | PN ---
Progress Note, Physician History of Present Illness: Pt seen and examined at bedside. He is awake but appears fatigued. - Current Medication List Current Medications: Active Medications Acetaminophen (Tylenol -) 650 mg PO Q6H PRN PRN Reason: FEVER Last Admin: 12/01/17 10:16 Dose: 650 mg Albuterol/Ipratropium (Duoneb -) 1 amp NEB RQID [facility] Last Admin: 12/08/17 15:43 Dose: 1 amp Apixaban (Eliquis -) 5 mg PO BID [facility] Last Admin: 12/08/17 09:12 Dose: Not Given Artificial Tears (Artificial Tears Ointment -) 1 applic OU HS [facility] Last Admin: 12/07/17 22:01 Dose: 1 applic Chlorhexidine Gluconate (Hibiclens For Decolonization -) 1 applic TP HS [facility] Last Admin: 12/07/17 21:59 Dose: 1 applic Ferrous Sulfate (Feosol) 300 mg GT DAILY [facility] Last Admin: 12/08/17 09:12 Dose: Not Given Levofloxacin (Levaquin 500 Mg Premixed Ivpb -) 500 mg in 100 mls @ 100 mls/hr IVPB DAILY [facility] Last Admin: 12/08/17 09:12 Dose: 100 mls/hr Fentanyl 500 mcg/ Dextrose 100 mls @ 5 mls/hr IVPB TITR [facility]; 25 MCG/HR PRN Reason: Protocol Stop: 12/09/17 13:14 Insulin Aspart (Novolog Vial Sliding Scale -) 1 vial SQ [facility] PRN Reason: Protocol Last Admin: 12/08/17 10:35 Dose: Not Given Insulin Detemir (Levemir Vial) 10 units SQ [facility] Last Admin: 12/07/17 22:07 Dose: Not Given Lactobacillus Acidophilus (Bacid -) 1 tab PEG DAILY [facility] Last Admin: 12/08/17 09:13 Dose: Not Given Metoprolol Tartrate (Lopressor Injection -) 5 mg IVPUSH Q4H PRN PRN Reason: HYPERTENSION Last Admin: 12/08/17 09:10 Dose: 5 mg Morphine Sulfate (Morphine Injection -) 2 mg IVPUSH Q1H PRN PRN Reason: PAIN LEVEL 7 - 10 Stop: 12/09/17 13:07 Prednisone (Deltasone -) 30 mg PO DAILY [facility] Last Admin: 12/08/17 09:13 Dose: Not Given Quetiapine Fumarate (Seroquel -) 25 mg PO [facility] Last Admin: 12/07/17 21:59 Dose: 25 mg Ranitidine HCl (Zantac -) 150 mg PO DAILY [facility] Last Admin: 12/08/17 09:12 Dose: Not Given Roflumilast (Daliresp -) 500 mcg NGT DAILY [facility] Last Admin: 12/08/17 09:13 Dose: Not Given Saliva Substitute (Mouthkote Solution -) 1 applic MM DAILY [facility] Last Admin: 12/08/17 09:12 Dose: Not Given - Objective Vital Signs: Vital Signs Temperature 98.0 F 12/08/17 14:00 Pulse Rate 132 H 12/08/17 16:00 Respiratory Rate 32 H 12/08/17 16:00 Blood Pressure 110/52 12/08/17 16:00 O2 Sat by Pulse Oximetry (%) 97 12/08/17 08:48 Constitutional: Yes: Calm Eyes: Yes: Conjunctiva Clear Neck: Yes: Other (trache) Cardiovascular: Yes: S1, S2 Respiratory: Yes: Mechanically Ventilated Gastrointestinal: Yes: Soft, Other (peg) Musculoskeletal: Yes: Muscle Weakness Edema: No Neurological: Yes: Oriented Labs: CBC, BMP 12/08/17 05:20 12/08/17 05:20 INR, PTT INR 1.97 (0.82-1.09) H D 12/08/17 05:20 Problem List - Problems (1) Hypernatremia Code(s): E87.0 - HYPEROSMOLALITY AND HYPERNATREMIA (2) MIRLANDE (acute kidney injury) Code(s): N17.9 - ACUTE KIDNEY FAILURE, UNSPECIFIED (3) Acute respiratory failure with hypoxia Code(s): J96.01 - ACUTE RESPIRATORY FAILURE WITH HYPOXIA (4) Diabetes Code(s): E11.9 - TYPE 2 DIABETES MELLITUS WITHOUT COMPLICATIONS (5) Failure to thrive Code(s): [id number] - Assessment/Plan Current Medications Generic Name Dose Route Start Last Admin Trade Name Freq PRN Reason Stop Dose Admin Acetaminophen 650 mg 11/22/17 23:20 12/01/17 10:16 Tylenol - PO 650 mg Q6H PRN Administration FEVER Albuterol/Ipratropium 1 amp 11/23/17 08:00 12/08/17 15:43 Duoneb - NEB 1 amp RQID [facility] Administration Apixaban 5 mg 12/06/17 10:00 12/08/17 09:12 Eliquis - PO Not Given BID [facility] Artificial Tears 1 applic 11/23/17 22:00 12/07/17 22:01 Artificial Tears Ointment - OU 1 applic HS [facility] Administration Chlorhexidine Gluconate 1 applic 11/22/17 22:00 12/07/17 21:59 Hibiclens For Decolonization - TP 1 applic HS [facility] Administration Ferrous Sulfate 300 mg 11/23/17 10:00 12/08/17 09:12 Feosol GT Not Given DAILY [facility] Levofloxacin 500 mg in 100 mls @ 100 mls/hr 12/06/17 10:00 12/08/17 09:12 Levaquin 500 Mg Premixed Ivpb - IVPB 100 mls/hr DAILY [facility] Administration Fentanyl 500 mcg/ Dextrose 100 mls @ 5 mls/hr 12/08/17 13:15 IVPB 12/09/17 13:14 TITR [facility] Protocol 25 MCG/HR Insulin Aspart 1 vial 11/23/17 07:00 12/08/17 10:35 Novolog Vial Sliding Scale - SQ Not Given ACHS [facility] Protocol Insulin Detemir 10 units 12/04/17 22:00 12/07/17 22:07 Levemir Vial SQ Not Given HS [facility] Lactobacillus Acidophilus 1 tab 11/23/17 10:00 12/08/17 09:13 Bacid - PEG Not Given DAILY [facility] Metoprolol Tartrate 5 mg 11/22/17 23:20 12/08/17 09:10 Lopressor Injection - IVPUSH 5 mg Q4H PRN Administration HYPERTENSION Morphine Sulfate 2 mg 12/08/17 13:08 Morphine Injection - IVPUSH 12/09/17 13:07 Q1H PRN PAIN LEVEL 7 - 10 Prednisone 30 mg 12/07/17 10:00 12/08/17 09:13 Deltasone - PO Not Given DAILY [facility] Quetiapine Fumarate 25 mg 11/23/17 22:00 12/07/17 21:59 Seroquel - PO 25 mg HS [facility] Administration Ranitidine HCl 150 mg 11/23/17 10:00 12/08/17 09:12 Zantac - PO Not Given DAILY [facility] Roflumilast 500 mcg 11/23/17 10:00 12/08/17 09:13 Daliresp - NGT Not Given DAILY [facility] Saliva Substitute 1 applic 11/23/17 10:00 12/08/17 09:12 Mouthkote Solution - MM Not Given DAILY [facility] Impression 1. MIRLANDE 2. hypernatremia 3. chronic resp failure s/p trache 4. s/p trache 5. s/p peg 6. sepsis 7. interstitial lung disease 8. chf diastolic 9. DM 10. lactic acidosis 11. PNA Plan - feeds were held as he had trache adjustment - free water and feeds to be restarted - repeat labs in am - discussed with ICU team - vent support - prognosis is poor Dr Gan
[2017-12-08] MEDS ORDERED: PHENYLEPHRINE HCL 10 MG/1 ML SINGLE DOSE VIAL ONE ×3 (17:17→20:32)
[2017-12-08] MEDS ORDERED: PROPOFOL 1,000,000 MCG/100 ML VIAL IVPB SCH (17:30)
[2017-12-08] MEDS ORDERED: PHENYLEPHRINE HCL 20,000 MCG in SODIUM CHLORIDE 248 ML IVPB SCH (17:30)
[2017-12-08] MEDS ORDERED: ROCURONIUM BROMIDE 50 MG/5 ML VIAL IV ONE (17:45)
--- NOTE | 2017-12-08 18:00 | PN ---
Progress Note (short form) - Note Progress Note: palliative care Patient critically ill on vent with multiple comorbidities; considered to have a poor prognosis by the attending physician notes. Family also concerned regarding ultimate outcome. Trach change was noted and whether it will help improve his respiratory status will be see in the coming days. If there is still a concern for a family meeting with the current medical attendings and family present, that can be arranged for this coming Tuesday, December 12, 2017.
[2017-12-08] MEDS: PHENYLEPHRINE HCL 20,000 MCG in SODIUM CHLORIDE 248 ML IVPB SCH ×2 (19:08→20:30)
[2017-12-08] MEDS: CHLORHEXIDINE GLUCONATE 4% CLEANSER FOR DECOLONIZATION TP SCH (21:26)
[2017-12-08] MEDS: QUEtiapine FUMARATE 25 MG TABLET (FP) PO SCH (21:26)
[2017-12-08] MEDS: INSULIN DETEMIR 100 UNITS/ML MDV SQ SCH (22:15)
[2017-12-08] MEDS: MINERAL OIL/PETROLATUM,WHITE 3.5 GM TUBE OU SCH (22:23)
[2017-12-08] MEDS ORDERED: SODIUM CHLORIDE 0.9% 500 ML INFUS.BAG IV ONE (23:45)
[2017-12-09] MEDS ORDERED: PHENYLEPHRINE HCL 10 MG/1 ML SINGLE DOSE VIAL ONE ×4 (03:06→12:50)
[2017-12-09] MEDS: BANATROL PLUS POWDER PACKET PEG SCH (06:22)
[2017-12-09] MEDS: INSULIN SLIDING SCALE (NOVOLOG) 1 VIAL SQ SCH (06:23)
[2017-12-09 06:42] LABS: MCH 30.3 pg (25.7-33.7); MCHC 30.8 g/dl (32.0-35.9); MEAN CELL VOLUME 98.4 fl (80-96); MEAN PLT VOLUME 12.4 fl (7.5-11.1); PLATELET COUNT 124 K/MM3 (134-434); RBC 2.64 M/mm3 (4.00-5.60)
[2017-12-09 06:59] LABS: CHLORIDE 114 mmol/L (98-107); POTASSIUM 4.4 mmol/L (3.5-5.1); SODIUM 154 mmol/L (136-145)
--- NOTE | 2017-12-09 07:11 | PN ---
Progress Note, Physician Chief Complaint: ID Vancomycin & Levofloxacin - Current Medication List Current Medications: Active Medications Acetaminophen (Tylenol -) 650 mg PO Q6H PRN PRN Reason: FEVER Last Admin: 12/01/17 10:16 Dose: 650 mg Albuterol/Ipratropium (Duoneb -) 1 amp NEB RQID [facility] Last Admin: 12/08/17 21:02 Dose: 1 amp Apixaban (Eliquis -) 5 mg PO BID [facility] Last Admin: 12/08/17 21:25 Dose: 5 mg Artificial Tears (Artificial Tears Ointment -) 1 applic OU HS [facility] Last Admin: 12/08/17 22:23 Dose: 1 applic Chlorhexidine Gluconate (Hibiclens For Decolonization -) 1 applic TP HS [facility] Last Admin: 12/08/17 21:26 Dose: 1 applic Ferrous Sulfate (Feosol) 300 mg GT DAILY [facility] Last Admin: 12/08/17 09:12 Dose: Not Given Levofloxacin (Levaquin 500 Mg Premixed Ivpb -) 500 mg in 100 mls @ 100 mls/hr IVPB DAILY [facility] Last Admin: 12/08/17 09:12 Dose: 100 mls/hr Fentanyl 500 mcg/ Dextrose 100 mls @ 5 mls/hr IVPB TITR [facility]; 25 MCG/HR PRN Reason: Protocol Stop: 12/09/17 13:14 Last Admin: 12/08/17 13:15 Dose: 5 mls/hr Propofol (Diprivan -) 1,000,000 mcg in 100 mls @ 1.055 mls/hr IVPB TITR [facility]; 5 MCG/KG/MIN PRN Reason: Protocol Last Titration: 12/08/17 21:27 Dose: 20 mcg/kg/min, 4.218 mls/hr Phenylephrine HCl 20,000 mcg/ (Sodium Chloride) 250 mls @ 75 mls/hr IVPB ASDIR [facility]; 100 MCG/MIN PRN Reason: Protocol Last Titration: 12/08/17 22:00 Dose: 200 mcg/min, 150 mls/hr Insulin Aspart (Novolog Vial Sliding Scale -) 1 vial SQ [facility] PRN Reason: Protocol Last Admin: 12/09/17 06:23 Dose: 4 units Insulin Detemir (Levemir Vial) 10 units SQ [facility] Last Admin: 02/23/18 22:15 Dose: 10 units Lactobacillus Acidophilus (Bacid -) 1 tab PEG DAILY [facility] Last Admin: 12/08/17 09:13 Dose: Not Given Metoprolol Tartrate (Lopressor Injection -) 5 mg IVPUSH Q4H PRN PRN Reason: HYPERTENSION Last Admin: 12/08/17 09:10 Dose: 5 mg Morphine Sulfate (Morphine Injection -) 2 mg IVPUSH Q1H PRN PRN Reason: PAIN LEVEL 7 - 10 Stop: 12/09/17 13:07 Prednisone (Deltasone -) 30 mg PO DAILY [facility] Last Admin: 12/08/17 09:13 Dose: Not Given Quetiapine Fumarate (Seroquel -) 25 mg PO HS [facility] Last Admin: 12/08/17 21:26 Dose: 25 mg Ranitidine HCl (Zantac -) 150 mg PO DAILY [facility] Last Admin: 12/08/17 09:12 Dose: Not Given Roflumilast (Daliresp -) 500 mcg NGT DAILY [facility] Last Admin: 12/08/17 09:13 Dose: Not Given Saliva Substitute (Mouthkote Solution -) 1 applic MM DAILY [facility] Last Admin: 12/08/17 09:12 Dose: Not Given - Objective Vital Signs: Vital Signs Temperature 97.6 F 12/09/17 06:00 Pulse Rate 91 H 12/09/17 06:00 Respiratory Rate 24 12/09/17 07:01 Blood Pressure 112/64 12/09/17 06:00 O2 Sat by Pulse Oximetry (%) 89 L 12/08/17 22:00 HENT: Yes: Other (Trach) Cardiovascular: Yes: Tachycardia, S1, S2 Respiratory: Yes: Diminished Gastrointestinal: Yes: Soft Edema: No Labs: INR, PTT INR 1.97 (0.82-1.09) H D 12/08/17 05:20 Problem List - Problems (1) Interstitial lung disease Code(s): J84.9 - INTERSTITIAL PULMONARY DISEASE, UNSPECIFIED (2) Acute respiratory failure with hypoxia Code(s): J96.01 - ACUTE RESPIRATORY FAILURE WITH HYPOXIA (3) Pneumonia Code(s): J18.9 - PNEUMONIA, UNSPECIFIED ORGANISM (4) Deep vein thrombosis Code(s): I82.409 - ACUTE EMBOLISM AND THOMBOS UNSP DEEP VN UNSP LOWER EXTREMITY Assessment/Plan Microbiology 12/05/17 10:00 Sputum - Endotrachea Suction/Ventilator Gram Stain - Final 12/05/17 10:00 Sputum - Endotrachea Suction/Ventilator Sputum Culture - Final Stenotrophomon.(X.)Maltophilia 12/05/17 06:00 Urine - Urine Clean Catch Urine Culture - Final Yeast Like Organism 12/07/17 06:00 Sputum - Endotrachea Suction/Ventilator YANCI Preparation - Preliminary 12/07/17 06:00 Sputum - Endotrachea Suction/Ventilator Fungal Culture - Preliminary 12/05/17 06:45 Blood - Peripheral Venous Blood Culture - Preliminary Yeast Like Organism 12/05/17 06:45 Blood - Peripheral Venous Blood Culture - Preliminary Pending Organism Laboratory Tests 12/08/17 12/08/17 12/09/17 05:20 05:20 06:15 WBC 19.0 H D Pending Hgb 10.0 L Pending Hct 31.7 L Pending Plt Count 107 L D Pending BUN 41 H Creatinine 0.6 L Assessment Positive blood culture for gram positive bacilli REVISED YEAST ! ? Jessica Stenotrophomon pneumonia Sepsis syndrome pressor support Chronic respiratory failure Interstitial lung disease Steroid dependency Plan Stop Vancomcyin Continue Levofloxacin day 3 Add antifungal therapy Caspofungin Prognosis remains Prognosis poor Umer IVY
[2017-12-09 07:14] LABS: ALBUMIN 1.3 g/dl (3.4-5.0); ALK PHOS 209 U/L (45-117); ANION GAP 9 (8-16); BILIRUBIN,TOTAL 0.4 mg/dL (0.2-1.0); BLOOD UREA NITROGEN 55 mg/dL (7-18); CALCIUM 7.3 mg/dL (8.5-10.1); CO2 31 mmol/L (21-32); CREATININE 0.7 mg/dL (0.7-1.3); GLUCOSE,RANDOM 236 mg/dL (74-106); MAGNESIUM 2.3 mg/dL (1.8-2.4); PHOSPHOROUS 4.1 mg/dL (2.5-4.9); SGOT/AST 199 U/L (15-37); SGPT/ALT 209 U/L (12-78); TOT PROT 6.1 g/dl (6.4-8.2)
[2017-12-09 07:35] LABS: INR 2.46 (0.82-1.09); PROTHROMBIN TIME (PATIENT) 27.8 SEC (9.98-11.88)
--- NOTE | 2017-12-09 07:36 | PN ---
Progress Note (short form) - Note Progress Note: sedated Current Medications Generic Name Dose Route Start Last Admin Trade Name Freq PRN Reason Stop Dose Admin Acetaminophen 650 mg 11/22/17 23:20 12/01/17 10:16 Tylenol - PO 650 mg Q6H PRN Administration FEVER Albuterol/Ipratropium 1 amp 11/23/17 08:00 12/08/17 21:02 Duoneb - NEB 1 amp RQID SONAL Administration Apixaban 5 mg 12/06/17 10:00 12/08/17 21:25 Eliquis - PO 5 mg BID SONAL Administration Artificial Tears 1 applic 11/23/17 22:00 12/08/17 22:23 Artificial Tears Ointment - OU 1 applic HS SONAL Administration Chlorhexidine Gluconate 1 applic 11/22/17 22:00 12/08/17 21:26 Hibiclens For Decolonization - TP 1 applic HS SON[facility] Administration Ferrous Sulfate 300 mg 11/23/17 10:00 12/08/17 09:12 Feosol GT Not Given DAILY SONAL Levofloxacin 500 mg in 100 mls @ 100 mls/hr 12/06/17 10:00 12/08/17 09:12 Levaquin 500 Mg Premixed Ivpb - IVPB 100 mls/hr DAILY [facility] Administration Fentanyl 500 mcg/ Dextrose 100 mls @ 5 mls/hr 12/08/17 13:15 12/08/17 13:15 IVPB 12/09/17 13:14 5 mls/hr TITR SONAL Administration Protocol 25 MCG/HR Propofol 1,000,000 mcg in 100 mls @ 1.055 mls/hr 12/08/17 17:30 12/08/17 21: 27 Diprivan - IVPB 20 mcg/kg/min TITR SONAL 4.218 mls/hr Protocol Titration 5 MCG/KG/MIN Phenylephrine HCl 20,000 mcg/ 250 mls @ 75 mls/hr 12/08/17 17:30 12/08/17 22: 00 Sodium Chloride IVPB 200 mcg/min ASDIR SONAL 150 mls/hr Protocol Titration 100 MCG/MIN Caspofungin 70 mg/ Sodium 250 mls @ 250 mls/hr 12/09/17 07:11 Chloride IV 12/09/17 08:10 ONCE ONE Caspofungin 50 mg/ Sodium 250 mls @ 250 mls/hr 12/10/17 10:00 Chloride IV DAILY [facility] Insulin Aspart 1 vial 11/23/17 07:00 12/09/17 06:23 Novolog Vial Sliding Scale - SQ 4 units ACHS SONAL Administration Protocol Insulin Detemir 10 units 12/04/17 22:00 12/08/17 22:15 Levemir Vial SQ 10 units HS [facility] Administration Lactobacillus Acidophilus 1 tab 11/23/17 10:00 12/08/17 09:13 Bacid - PEG Not Given DAILY [facility] Metoprolol Tartrate 5 mg 11/22/17 23:20 12/08/17 09:10 Lopressor Injection - IVPUSH 5 mg Q4H PRN Administration HYPERTENSION Morphine Sulfate 2 mg 12/08/17 13:08 Morphine Injection - IVPUSH 12/09/17 13:07 Q1H PRN PAIN LEVEL 7 - 10 Prednisone 30 mg 12/07/17 10:00 12/08/17 09:13 Deltasone - PO Not Given DAILY [facility] Quetiapine Fumarate 25 mg 11/23/17 22:00 12/08/17 21:26 Seroquel - PO 25 mg HS [facility] Administration Ranitidine HCl 150 mg 11/23/17 10:00 12/08/17 09:12 Zantac - PO Not Given DAILY [facility] Roflumilast 500 mcg 11/23/17 10:00 12/08/17 09:13 Daliresp - NGT Not Given DAILY [facility] Saliva Substitute 1 applic 11/23/17 10:00 12/08/17 09:12 Mouthkote Solution - MM Not Given DAILY [facility] Last Vital Signs Temp Pulse Resp BP Pulse Ox 97.6 F 91 H 24 112/64 82 L 12/09/17 06:00 12/09/17 06:00 12/09/17 07:01 12/09/17 06:00 12/09/17 06:00 General sedated, does open eyes to verbal stimuli, tachypnic Lungs coarse breath sounds anteriorly ASSESSMENT AND PLAN: 62 yo M active smoker, pMHx of NIDDM, PUD, BPH admitted with acute hypoxic respiratory failure, and extensive RLE DVT 1. Acute hypoxic respiratory failure, suspect from ?ILD with pneumonitis- s/p intubation 11/03 with failed weaning and now s/p trach 11/07. trach exchanged 11/19. Trach switched with ETT. remains tachypnic on vent. was placed on sedation yesterday for comfort. will titrate sedation as needed. on full vent support. FiO2 100%. management per pulm. goal SpO2 >88%. on pred 30mg 2. RLE DVT- s/p IVC filter 10/20, thrombectomy 10/24. on eliquis 5mg BID. monitor for bleeding 3. Septic shock due to aspiration PNA and fungal bacteremia-afebrile. BCx reported now fungal infection. no GPR. started on caspofungin. on levaquin day . vanco d/c. ID on board. 4. Acute diastolic heart failure- s/p intermittent lasix IV. clinically euvolemic. 5. Iron deficiency anemia and anemia of chronic disease- possible due to frequent blood draws and comorbidities. s/p 3unit PRBC this hospitalization. cont iron supplementation 6. Hypernatremia- trending up. increase free water flushes. 7. antibiotic assoc Diarrhea-likely due to prolonged abx use. now resolved. on bacid and banatol. 8. continuous nicotine dependence- nicotine patch 9. cachexia- severe malnutrition evident by body habitus. lost 40+lbs this hospital stay. s/p PEG 11/09. tolerating TF 10. DM- improved. cont to titrate insulin as needed. 11. Agitation- intermittent periods of agitation. off 2 point restraints. on seroquel HS. 12. PPX- ppi/eliquis 13. Poor overall prognosis. ethics and palliative on board. Resident spoke with daughter yesterday. Scheduled to come today to discuss goals of care at this time. Spoke with ICU BEATER MACHINE OPERATOR who will be part of discussion The care of this patient involved high complexity decision making to prevent further life threatening deterioration of the patient's condition and/or to evaluate & treat vital organ system(s) failure or risk of failure. 38 minutes Visit type - Emergency Visit Emergency Visit: Yes ED Registration Date: 10/17/17 Care time: The patient presented to the Emergency Department on the above date and was hospitalized for further evaluation of their emergent condition. - New Patient This patient is new to me today: No - Critical Care Critical Care patient: Yes Total Critical Care Time (in minutes): 38 Critical Care Statement: The care of this patient involved high complexity decision making to prevent further life threatening deterioration of the patient 's condition and/or to evaluate & treat vital organ system(s) failure or risk of failure. - Discharge Referral Referred to [facility] Med P.C.: No
[2017-12-09 07:38] LABS: ACTIVATED PTT 36.8 SECONDS (26.9-34.4)
[2017-12-09] MEDS: ALBUTEROL SO4 2.5/IPRATROPIUM 0.5 INH SOL 3 ML VIAL.NEB. NEB SCH (07:45)
[2017-12-09] MEDS ORDERED: CASPOFUNGIN ACETATE 70 MG in SODIUM CHLORIDE 250 ML IV ONE ×2 (08:00→10:00)
[2017-12-09] MEDS ORDERED: MORPHINE 100 MG in SODIUM CHLORIDE 98 ML IVPB SCH (08:30)
--- NOTE | 2017-12-09 08:54 | PN ---
Progress Note (short form) - Note Progress Note: RENAL Pt seen and examined has an ETT in neck awake and responds on 100 percent Last Vital Signs Temp Pulse Resp BP Pulse Ox 97.6 F 112 H 29 H 101/68 82 L 12/09/17 06:00 12/09/17 08:00 12/09/17 08:33 12/09/17 08:00 12/09/17 08:00 lungs bilateral air entry cvs s1s2 rr abd soft ext no edema neuro awake, makes eye contact CBC, BMP 12/09/17 06:15 12/09/17 06:15 Current Medications Generic Name Dose Route Start Last Admin Trade Name Freq PRN Reason Stop Dose Admin Acetaminophen 650 mg 11/22/17 23:20 12/01/17 10:16 Tylenol - PO 650 mg Q6H PRN Administration FEVER Albuterol/Ipratropium 1 amp 11/23/17 08:00 12/09/17 07:45 Duoneb - NEB 1 amp RQID SONAL Administration Apixaban 5 mg 12/06/17 10:00 12/08/17 21:25 Eliquis - PO 5 mg BID SONAL Administration Artificial Tears 1 applic 11/23/17 22:00 12/08/17 22:23 Artificial Tears Ointment - OU 1 applic HS SONAL Administration Chlorhexidine Gluconate 1 applic 11/22/17 22:00 12/08/17 21:26 Hibiclens For Decolonization - TP 1 applic HS SONAL Administration Ferrous Sulfate 300 mg 11/23/17 10:00 12/08/17 09:12 Feosol GT Not Given DAILY [facility] Levofloxacin 500 mg in 100 mls @ 100 mls/hr 12/06/17 10:00 12/08/17 09:12 Levaquin 500 Mg Premixed Ivpb - IVPB 100 mls/hr DAILY [facility] Administration Fentanyl 500 mcg/ Dextrose 100 mls @ 5 mls/hr 12/08/17 13:15 12/08/17 13:15 IVPB 12/09/17 13:14 5 mls/hr TITR SONAL Administration Protocol 25 MCG/HR Propofol 1,000,000 mcg in 100 mls @ 1.055 mls/hr 12/08/17 17:30 12/08/17 21: 27 Diprivan - IVPB 20 mcg/kg/min TITR SONAL 4.218 mls/hr Protocol Titration 5 MCG/KG/MIN Phenylephrine HCl 20,000 mcg/ 250 mls @ 75 mls/hr 12/08/17 17:30 12/08/17 22: 00 Sodium Chloride IVPB 200 mcg/min ASDIR SONAL 150 mls/hr Protocol Titration 100 MCG/MIN Caspofungin 70 mg/ Sodium 250 mls @ 250 mls/hr 12/09/17 08:00 Chloride IV 12/09/17 08:59 ONCE ONE Caspofungin 50 mg/ Sodium 250 mls @ 250 mls/hr 12/10/17 10:00 Chloride IV DAILY [facility] Morphine Sulfate 100 mg/ 100 mls @ 4 mls/hr 12/09/17 08:30 Sodium Chloride IVPB TITR SONAL Protocol 4 MG/HR Insulin Aspart 1 vial 11/23/17 07:00 12/09/17 06:23 Novolog Vial Sliding Scale - SQ 4 units ACHS SONAL Administration Protocol Insulin Detemir 10 units 12/04/17 22:00 12/08/17 22:15 Levemir Vial SQ 10 units HS [facility] Administration Lactobacillus Acidophilus 1 tab 11/23/17 10:00 12/08/17 09:13 Bacid - PEG Not Given DAILY [facility] Metoprolol Tartrate 5 mg 11/22/17 23:20 12/08/17 09:10 Lopressor Injection - IVPUSH 5 mg Q4H PRN Administration HYPERTENSION Prednisone 30 mg 12/07/17 10:00 12/08/17 09:13 Deltasone - PO Not Given DAILY [facility] Quetiapine Fumarate 25 mg 11/23/17 22:00 12/08/17 21:26 Seroquel - PO 25 mg HS [facility]ON[facility] Administration Ranitidine HCl 150 mg 11/23/17 10:00 12/08/17 09:12 Zantac - PO Not Given DAILY [facility] Roflumilast 500 mcg 11/23/17 10:00 12/08/17 09:13 Daliresp - NGT Not Given DAILY [facility] Saliva Substitute 1 applic 11/23/17 10:00 12/08/17 09:12 Mouthkote Solution - MM Not Given DAILY [facility] Impression 1. MIRLANDE 2. hypernatremia 3. chronic resp failure s/p trache 4. s/p trache 5. s/p peg 6. sepsis 7. interstitial lung disease 8. chf diastolic 9. DM 10. lactic acidosis 11. PNA 12. transaminitis Plan -case being discussed with family -would continue water with feeding -might do better with a different formula that is not concentrated -make sure protein intake is reduced as a way to reduce bun and sodium MV
--- NOTE | 2017-12-09 09:03 | PN ---
Progress Note (short form) - Note Progress Note: SUBJECTIVE: Patient seen and examined in the ICU. 24Hr; Cont to desat, high pressures, hard to ventilate Today myself and Dr Harper had the opportunity to speak with the Daugther and primary surrogate of highest order regarding Mr Bermudez's cont deterioration and end of life care. We addressed his continued lung disease despite optimal therapy and his discomfort with ETT via stoma and high vent settings. We came to consensus at the end of our conversation that no further measures should be undertaken to prolong his life. She asked that his comfort be our highest priority and goal of care. We will not perform heroic measures should he continue to deteriorate, we will treat pain and anxiety aggressively. Family is gathering, pastoral care is to be provided by family's own roof truss machine tender. All questions were answered. Objective: Vital Signs Temp 97.6 F 12/09/17 06:00 Pulse 112 H 12/09/17 08:00 Resp 29 H 12/09/17 08:33 BP 101/68 12/09/17 08:00 Pulse Ox 82 L 12/09/17 08:00 Intake & Output 12/08/17 12/08/17 12/09/17 11:59 23:59 11:59 Intake Total 940 956.1 1856.8 Balance 940 956.1 1856.8 Weight 35.153 kg 36.061 kg Intake: IV 500 446.1 1216.8 DIPRIVAN - 1,000,000 mcg 14.7 16.8 In 100 ml @ 5 MCG/KG/MIN 1.055 mls/hr IVPB TITR SONAL Rx#:[id number] Esau-Synephrine - 20,000 431.4 1200 Mcg In Normal Saline - 248 ml @ 100 MCG/MIN 75 mls/hr IVPB ASDIR SONAL Rx# :[id number] Normal Saline - 500 ml @ 500 500 mls/hr IV ASDIR STA Rx#:[id number] IVPB 350 Tube Feeding 40 80 320 Tube Irrigant 400 80 320 Other: Voiding Method Diaper External Catheter Incontinent # Unmeasured Voids Void 1 1 1 Bowel Movement No Yes # Bowel Movements 1 Weight Measurement Method Built in Bedscale Built in Bedscale Active Medications Acetaminophen (Tylenol -) 650 mg PO Q6H PRN PRN Reason: FEVER Last Admin: 12/01/17 10:16 Dose: 650 mg Albuterol/Ipratropium (Duoneb -) 1 amp NEB RQID [facility] Last Admin: 12/09/17 07:45 Dose: 1 amp Apixaban (Eliquis -) 5 mg PO BID [facility] Last Admin: 12/08/17 21:25 Dose: 5 mg Artificial Tears (Artificial Tears Ointment -) 1 applic OU HS [facility] Last Admin: 12/08/17 22:23 Dose: 1 applic Chlorhexidine Gluconate (Hibiclens For Decolonization -) 1 applic TP HS [facility] Last Admin: 12/08/17 21:26 Dose: 1 applic Ferrous Sulfate (Feosol) 300 mg GT DAILY [facility] Last Admin: 12/08/17 09:12 Dose: Not Given Levofloxacin (Levaquin 500 Mg Premixed Ivpb -) 500 mg in 100 mls @ 100 mls/hr IVPB DAILY [facility] Last Admin: 12/08/17 09:12 Dose: 100 mls/hr Fentanyl 500 mcg/ Dextrose 100 mls @ 5 mls/hr IVPB TITR SONAL; 25 MCG/HR PRN Reason: Protocol Stop: 12/09/17 13:14 Last Admin: 12/08/17 13:15 Dose: 5 mls/hr Propofol (Diprivan -) 1,000,000 mcg in 100 mls @ 1.055 mls/hr IVPB TITR SONAL; 5 MCG/KG/MIN PRN Reason: Protocol Last Titration: 12/08/17 21:27 Dose: 20 mcg/kg/min, 4.218 mls/hr Phenylephrine HCl 20,000 mcg/ (Sodium Chloride) 250 mls @ 75 mls/hr IVPB ASDIR SONAL; 100 MCG/MIN PRN Reason: Protocol Last Titration: 12/08/17 22:00 Dose: 200 mcg/min, 150 mls/hr Caspofungin 50 mg/ Sodium (Chloride) 250 mls @ 250 mls/hr IV DAILY [facility] Morphine Sulfate 100 mg/ (Sodium Chloride) 100 mls @ 4 mls/hr IVPB TITR SONAL; 4 MG/HR PRN Reason: Protocol Caspofungin 70 mg/ Sodium (Chloride) 250 mls @ 250 mls/hr IV ONCE ONE Stop: 12/09/17 10:59 Insulin Aspart (Novolog Vial Sliding Scale -) 1 vial SQ ACHS SONAL PRN Reason: Protocol Last Admin: 12/09/17 06:23 Dose: 4 units Insulin Detemir (Levemir Vial) 10 units SQ HS [facility] Last Admin: 12/08/17 22:15 Dose: 10 units Lactobacillus Acidophilus (Bacid -) 1 tab PEG DAILY [facility] Last Admin: 12/08/17 09:13 Dose: Not Given Metoprolol Tartrate (Lopressor Injection -) 5 mg IVPUSH Q4H PRN PRN Reason: HYPERTENSION Last Admin: 12/08/17 09:10 Dose: 5 mg Prednisone (Deltasone -) 30 mg PO DAILY [facility] Last Admin: 12/08/17 09:13 Dose: Not Given Quetiapine Fumarate (Seroquel -) 25 mg PO HS [facility] Last Admin: 12/08/17 21:26 Dose: 25 mg Ranitidine HCl (Zantac -) 150 mg PO DAILY [facility] Last Admin: 12/08/17 09:12 Dose: Not Given Roflumilast (Daliresp -) 500 mcg NGT DAILY [facility] Last Admin: 12/08/17 09:13 Dose: Not Given Saliva Substitute (Mouthkote Solution -) 1 applic MM DAILY [facility] Last Admin: 12/08/17 09:12 Dose: Not Given Gen: vented, agitated, axious Heart: tachycardic, regular Lung: scattered rhonchi Abd: soft, nontender Ext: no edema CBC, BMP 12/09/17 06:15 12/09/17 06:15 Problem List - Problems (1) Acute respiratory failure with hypoxia Code(s): J96.01 - ACUTE RESPIRATORY FAILURE WITH HYPOXIA (2) Pneumonia Code(s): J18.9 - PNEUMONIA, UNSPECIFIED ORGANISM (3) Diabetes Code(s): E11.9 - TYPE 2 DIABETES MELLITUS WITHOUT COMPLICATIONS ASSESSMENT AND PLAN: Acute Hypoxic Respiratory Failure s/p Tracheostomy Pneumonia treated Sepsis Interstitial Lung Disease Acute Diastolic Heart Failure improved Acute Kidney Injury Lactic Acidosis resolved DM Anemia RLE DVT - morphine gtt for dyspnea/pain -tylenol for fever - prn benzo for agitation -no further blood draws, no continued therapies that do not directly deal with pain/anxiety -oral care DNR/DNI [id number]
[2017-12-09] MEDS: APIXABAN 2.5 MG TABLET PO SCH (09:25)
[2017-12-09] MEDS: LACTOBACILLUS ACIDOPHILUS 1 EACH TAB (FP) PEG SCH (09:25)
[2017-12-09] MEDS: FERROUS SO4 300 MG/5 ML ORAL SOLN UNIT DOSE CUPS GT SCH (09:26)
[2017-12-09] MEDS: RANITIDINE HCL 150 MG TABLET (FP) PO SCH (09:30)
[2017-12-09] MEDS: LYTES/YERBA SANTA 240 ML BOTTLE MM SCH (09:30)
[2017-12-09] MEDS ORDERED: PT OWN MED DRAWER 7, Y5N ONE (09:42)
[2017-12-09] MEDS: ROFLUMILAST 500 MCG TABLET NGT SCH (09:43)
[2017-12-09] MEDS: predniSONE 20 MG TABLET (UD) PO SCH (09:44)
[2017-12-09 10:39] LABS: ANISOCYTOSIS 1+; MACROCYTOSIS 1+; PLATELET ESTIMATE DECREASED; TARGET CELLS 1+; TEAR DROP CELLS 1+; TOXIC GRANULATION 1+
[2017-12-09 14:10] VITALS: BP 68/40; PULSE 104; TEMP 97.6
--- NOTE | 2017-12-09 15:06 | PN ---
Progress Note (short form) - Note Progress Note: note: At 250pm pt was noted to be in agonal rhythm on monitor. Pt had earlier been made comfort measures only. On exam pt was unconscious, asystolic, apneic, without corneal or brainstem reflexes. Given DNR/DNI status no resuscitation effort was performed. Pt family and Attending notified. Census notified. Organ donation to be contact by [facility]. Darwin Jamil ACNP [id number]
--- NOTE | 2017-12-09 15:12 | HOSP ---
Subjective - Review of Symptoms Subjective: Notified by RN that pt was pronounced at 1450 by Darwin Jamil Notified daughter of his passing. Physical Examination Vital Signs: Vital Signs Temperature 97.6 F 12/09/17 14:00 Pulse Rate 104 H 12/09/17 14:00 Respiratory Rate 18 12/09/17 14:12 Blood Pressure 68/40 12/09/17 14:00 O2 Sat by Pulse Oximetry (%) 82 L 12/09/17 13:02 Labs: CBC, BMP 12/09/17 06:15 12/09/17 06:15
[2017-12-10] MEDS ORDERED: CASPOFUNGIN ACETATE 50 MG in SODIUM CHLORIDE 250 ML IV SCH (10:00)
== END 2017-12-09 17:02 | disposition expired | DRG 4 ==
LOC: JER 09:54 → JERBED 12:48 → JICU 18:07 → J5S 11-13 11:51 → JICU 11-13 18:22 → J5S 11-17 17:10 → JICU 11-22 22:33
PROVIDERS: ADMIT Hospitalist; ATTEND Internal Medicine
PROC: 06HM33Z Insertion of Infusion Device into Right Femoral Vein, Percutaneous Approach (ICD-10-PCS; 2017-10-17)
PROC: 5A09457 Assistance with Respiratory Ventilation, 24-96 Consecutive Hours, Continuous Positive Airway Pressure (ICD-10-PCS; 2017-10-17)
PROC: 06H03DZ Insertion of Intraluminal Device into Inferior Vena Cava, Percutaneous Approach (ICD-10-PCS; 2017-10-20)
PROC: 5A09557 Assistance with Respiratory Ventilation, Greater than 96 Consecutive Hours, Continuous Positive Airway Pressure (ICD-10-PCS; 2017-10-29)
PROC: 3E03317 Introduction of Other Thrombolytic into Peripheral Vein, Percutaneous Approach (ICD-10-PCS; 2017-11-01)
PROC: 5A1955Z Respiratory Ventilation, Greater than 96 Consecutive Hours (ICD-10-PCS; 2017-11-03)
PROC: 0BH17EZ Insertion of Endotracheal Airway into Trachea, Via Natural or Artificial Opening (ICD-10-PCS; 2017-11-03)
PROC: 0BJ08ZZ Inspection of Tracheobronchial Tree, Via Natural or Artificial Opening Endoscopic (ICD-10-PCS; 2017-11-07)
PROC: 0B113F4 Bypass Trachea to Cutaneous with Tracheostomy Device, Percutaneous Approach (ICD-10-PCS; principal; 2017-11-07 10:00)
PROC: 0DH63UZ Insertion of Feeding Device into Stomach, Percutaneous Approach (ICD-10-PCS; 2017-11-09)
PROC: 0B21XFZ Change Tracheostomy Device in Trachea, External Approach (ICD-10-PCS; 2017-11-11)
PROC: 0B21XFZ Change Tracheostomy Device in Trachea, External Approach (ICD-10-PCS; 2017-11-14)
PROC: 0BJ08ZZ Inspection of Tracheobronchial Tree, Via Natural or Artificial Opening Endoscopic (ICD-10-PCS; 2017-11-14)
PROC: 8E09XY8 Suture Removal from Head and Neck Region (ICD-10-PCS; 2017-12-07)
PROC: 0BQ Respiratory System, Repair (ICD-10-PCS; 2017-12-07)
PROC: 30233H1 Transfusion of Nonautologous Whole Blood into Peripheral Vein, Percutaneous Approach (ICD-10-PCS; 2017-12-09)
DX: A41.9 Sepsis, unspecified organism (principal); R65.21 Severe sepsis with septic shock; E43 Unspecified severe protein-calorie malnutrition; R64 Cachexia; I50.31 Acute diastolic (congestive) heart failure; N17.9 Acute kidney failure, unspecified; E87.0 Hyperosmolality and hypernatremia; J18.9 Pneumonia, unspecified organism; B37.89 Other sites of candidiasis; K52.1 Toxic gastroenteritis and colitis; I82.411 Acute embolism and thrombosis of right femoral vein; I82.431 Acute embolism and thrombosis of right popliteal vein; E87.2 Acidosis; I95.9 Hypotension, unspecified; D69.59 Other secondary thrombocytopenia; I82.441 Acute embolism and thrombosis of right tibial vein; I82.811 Embolism and thrombosis of superficial veins of right lower extremity; E83.42 Hypomagnesemia; Z78.1 Physical restraint status; E87.5 Hyperkalemia; E83.39 Other disorders of phosphorus metabolism; J44.1 Chronic obstructive pulmonary disease with (acute) exacerbation; R62.7 Adult failure to thrive; I36.1 Nonrheumatic tricuspid (valve) insufficiency; J96.21 Acute and chronic respiratory failure with hypoxia; J96.00 Acute respiratory failure, unspecified whether with hypoxia or hypercapnia; E11.9 Type 2 diabetes mellitus without complications; T36.8X5A Adverse effect of other systemic antibiotics, initial encounter; N40.0 Benign prostatic hyperplasia without lower urinary tract symptoms; F17.210 Nicotine dependence, cigarettes, uncomplicated; K27.9 Peptic ulcer, site unspecified, unspecified as acute or chronic, without hemorrhage or perforation; Z79.84 Long term (current) use of oral hypoglycemic drugs; K46.9 Unspecified abdominal hernia without obstruction or gangrene; D53.9 Nutritional anemia, unspecified; Z68.1 Body mass index [BMI] 19.9 or less, adult; R31.9 Hematuria, unspecified; R59.0 Localized enlarged lymph nodes; D63.8 Anemia in other chronic diseases classified elsewhere; D50.9 Iron deficiency anemia, unspecified; R45.1 Restlessness and agitation; Z99.11 Dependence on respirator [ventilator] status; J39.8 Other specified diseases of upper respiratory tract; J95.09 Other tracheostomy complication; Y83.8 Other surgical procedures as the cause of abnormal reaction of the patient, or of later complication, without mention of misadventure at the time of the procedure; F41.9 Anxiety disorder, unspecified; Z66 Do not resuscitate
CPT/HCPCS: 31500; 36415; 36430; 36600; 37187; 37191; 37212; 61651; 70450-TC; 71045-TC-FY; 71250-TC; 71275-TC; 72125-TC; 74177-TC; 75820-TC-FY; 76000-TC-FY; 76705-TC; 76775-TC; 76937-TC; 80048; 80053; 81003; 81015; 82375; 82436; 82542; 82550; 82553; 82570; 82607; 82728; 82747; 82784; 82803; 82947; 82962; 83036; 83050; 83540; 83550; 83605; 83735; 83880; 83930; 83935; 84100; 84133; 84155; 84156; 84157; 84165; 84300; 84443; 84466; 84484; 85014; 85025; 85027; 85610; 85651; 85730; 86022; 86140; 86334; 86480; 86635; 86738; 86850; 86900; 86901; 86922; 87040; 87070; 87077; 87086; 87102; 87106; 87186; 87205; 87210; 87305; 87324; 87385; 87389; 87449; 87496; 87804; 87899; 90670; 93005; 93010; 93306-TC; 93971-TC; 94002; 94640; 94660; 97162-GP; 99285-25; C1757; C1769; C1887; C1894; J0131; J1644; J7030; P9038; P9058